=== PATIENT | male | born 1930 | race American Indian/Alaskan Native ===

== ENCOUNTER 2016-06-21 09:05 | Inpatient (IN) | payer MEDICARE, BC ==
[2016-06-21] MEDS ORDERED: Piperacill/Tazo 4.5gm in NS 100 ML IVPB STA (09:49)
[2016-06-21] MEDS ORDERED: Vancomycin 1gm in NS 250ml 250 ML IVPB STA (09:49)
[2016-06-21 09:58] LABS: ADD MANUAL DIFF? NO
[2016-06-21 10:03] LABS: VENOUS BLOOD GAS BASE EXCESS -4.7 mmol/L (0.0-2.0); VENOUS BLOOD PH 7.35 (7.32-7.43)
[2016-06-21 10:05] LABS: BASO # 0.04 K/mm3 (0.0-2.0); BASO % 0.3 % (0.0-3.0); EOS % 0.3 % (1.5-5.0); GRAN # 11.24 (1.4-6.5); HEMATOCRIT 37.4 % (42.0-52.0); LYMPH # 1.4 (1.2-3.4); MEAN CELL VOLUME 92.8 fL (80.0-105.0); MEAN CORPUSCULAR HEMOGLOBIN 30.5 pg (25.0-35.0); MEAN CORPUSCULAR HGB CONC 32.9 g/dl (31.0-37.0); MONO # 0.9 (0.1-0.6); MONO % 6.4 % (1.0-6.0); PLATELET COUNT 182 10^3/uL (120.0-450.0); RED CELL DISTRIBUTION WIDTH 17.8 % (11.5-14.5); WHITE BLOOD COUNT 13.5 10^3/ul (4.5-11.0)
[2016-06-21] MEDS ORDERED: Sodium Chloride 0.9% 500 ML IV STA (10:07)
[2016-06-21] MEDS ORDERED: Sodium Chloride 0.9% 1,000 ML IV SCH (10:15)
[2016-06-21 10:30] LABS: ALB/GLOB RATIO 0.9 (1.1-1.8); ALKALINE PHOSPHATASE 78 U/L (38-133); ALT/SGPT < 6 U/L (7-56); AST/SGOT 27 U/L (15-59); BILIRUBIN,TOTAL 0.8 mg/dL (0.2-1.3); BLOOD UREA NITROGEN 56 mg/dL (7-21); CALCIUM 9.2 mg/dL (8.4-10.5); CARBON DIOXIDE 22 mmol/L (21-33); CHLORIDE 98 mmol/L (95-110); GFR AFRICAN-AMERICAN 7; GLUCOSE,RANDOM 138 mg/dL (70-110); MAGNESIUM 2.2 mg/dL (1.7-2.2); PHOSPHOROUS 5.2 mg/dL (2.5-4.5); POTASSIUM 5.2 mmol/L (3.6-5.0); SODIUM 138 mmol/L (132-148); TOTAL PROTEIN 8.8 g/dL (5.8-8.3)
[2016-06-21 10:42] LABS: URINE BILIRUBIN NEGATIVE (NEGATIVE); URINE BLOOD TRACE-INTACT (NEGATIVE); URINE GLUCOSE (UA) 100 mg/dL (NEGATIVE); URINE KETONE TRACE mg/dL (NEGATIVE); URINE LEUKOCYTE ESTERASE NEGATIVE Leu/uL (NEGATIVE); URINE PROTEIN 100 mg/dL (<30 mg/dL); URINE UROBILINOGEN 0.2 E.U./dL (<1 E.U./dL)
[2016-06-21 10:42] LABS: TROPONIN I 0.12 ng/mL
--- NOTE | 2016-06-21 10:42 | ED PDOC ---
Arrival/HPI - General Historian: Patient, Spouse, EMS EM Caveat: Altered Mental Status - History of Present Illness Time/Duration: Prior to Arrival <Ricky Owen - Last Filed: 06/21/16 13:21> <Ashvin Oneal - Last Filed: 06/21/16 15:07> - General Chief Complaint: Altered Mental Status Time Seen by Provider: 06/21/16 09:08 - History of Present Illness Narrative History of Present Illness (Text): 06/21/16 10:39 This is an 85 year old male with a PMH notable for HTN, CAD s/p stent placement , NSTEMI, gastric cancer, ESRD on HD (M,W,F), DM and dementia presenting to the ED for evaluation of AMS. The patient was noted to be vomiting bile-like liquid per the patient's 's recount. The noted that the patient felt clammy at home as well. The patient is mildly demented at baseline. The patient is able to produce urine. The patient is due for dialysis today at 2pm. The patient is unable to participate in ROS on examination. (Ricky Owen) Past Medical History - Provider Review Nursing Documentation Reviewed: Yes - Travel History Have you recently traveled outside [place] w/in the past 3 mons?: No - Infectious Disease Hx of Infectious Diseases: None - Tetanus Immunization Tetanus Immunization: Unknown - Cardiac Hx Pacemaker: No - Pulmonary Hx Respiratory Disorders: Yes Hx Pneumonia: Yes - Neurological Hx Paralysis: No - HEENT Hx HEENT Disorder: Yes (WEARS RX GLASSES) Hx Epistaxis: Yes - Renal Hx Dialysis: Yes (-- Schedule) Type of Dialysis Access: Left AV Shunt Date of Last Dialysis Treatment: 06/18/16 Hx Renal Failure: Yes (ESRD) - Endocrine/Metabolic Hx Diabetes Mellitus Type 2: Yes - Hematological/Oncological Hx Blood Transfusions: Yes Hx Blood Transfusion Reaction: No Hx Cancer: Yes (Gastric) - Integumentary Hx Dermatological Disorder: No - Musculoskeletal/Rheumatological Hx Musculoskeletal Disorders: No - Gastrointestinal Hx Gastrointestinal Disorders: Yes Hx Constipation: Yes Hx Gastroesophageal Reflux: Yes Other/Comment: COLON POLYPS - Genitourinary/Gynecological Hx Genitourinary Disorders: Yes (ESRD ON HEMODIALYSIS PT STATES STILL URINATES) - Psychiatric Hx Emotional Abuse: No Hx Physical Abuse: No Hx Substance Use: No - Surgical History Other/Comment: AV shunt placement. - Anesthesia Hx Anesthesia Reactions: No Hx Malignant Hyperthermia: No - Suicidal Assessment Feels Threatened In Home Enviroment: No <Ricky Owen - Last Filed: 06/21/16 13:21> <Ashvin Oneal - Last Filed: 06/21/16 15:07> - Patient History Narrative Patient History: This is an 85 year old male with a PMH notable for HTN, CAD s/p stent placement , NSTEMI, gastric cancer, ESRD on HD (M,W,F), DM and dementia (Ricky Owen) Family/Social History - Physician Review Nursing Documentation Reviewed: Yes Family/Social History: No Known Family HX Smoking Status: Former Smoker Hx Alcohol Use: No Hx Substance Use: No Hx Substance Use Treatment: No <Ricky Owen - Last Filed: 06/21/16 13:21> Allergies/Home Meds <Ricky Owen - Last Filed: 06/21/16 13:21> <Ashvin Oneal - Last Filed: 06/21/16 15:07> Allergies/Adverse Reactions: Allergies No Known Allergies Allergy (Verified 06/21/16 09:08) Home Medications: Home Meds Medication Instructions Recorded Confirmed Insulin Detemir [Levemir Flextouch] 5 units SQ BID 06/28/15 06/21/16 Losartan Potassium [Cozaar] 100 mg PO DAILY 06/28/15 06/21/16 Linaclotide [Linzess] 145 mcg PO DAILY PRN 09/22/15 06/21/16 Travoprost [Travatan Z] 1 drop BOTHEYES HS 11/23/15 06/21/16 Cholecalciferol [Vitamin D 1000 IU] 50,000 unit PO SAT 01/30/16 06/21/16 Metoclopramide [Reglan] 5 mg PO QID 01/30/16 06/21/16 Nebivolol [Bystolic] 5 mg PO QPM 01/30/16 06/21/16 Folic Acid 1 mg PO DAILY 04/22/16 06/21/16 Isosorbide Mononitrate [Imdur] 60 mg PO QAM 04/22/16 06/21/16 Omeprazole 40 mg PO QAM 04/22/16 06/21/16 Polyethylene Glycol 3350 [Miralax] 17 gm PO PRN PRN 04/22/16 06/21/16 Sevelamer [Renagel] 800 mg PO TID 04/22/16 06/21/16 Vit B Cmplx 3/FA/Vit C/Biotin 1 tab PO DAILY 04/22/16 06/21/16 [[facility]] Aspirin [Lo-Dose Aspirin EC] 81 mg PO DAILY 04/28/16 06/21/16 Review of Systems - Review of Systems Systems not reviewed;Unavailable: Altered Mental Status <Ricky Owen - Last Filed: 06/21/16 13:21> Physical Exam - Physical Exam Physical Exam Limitations: Altered Mental Status Temperature: Afebrile Blood Pressure: Hypertensive Pulse: Tachycardic Respiratory Rate: Tachypneic Appearance: Positive for: Non-Toxic, Ill-Appearing Pain Distress: None Mental Status: No: Alert and Oriented X 3 (A&O x 2) - Systems Exam Head: Present: Atraumatic, Normocephalic Pupils: Present: PERRL Extroacular Muscles: Present: EOMI. No: Entrapment Conjunctiva: Present: Normal. No: Injected Mouth: Present: Dry. No: Moist Mucous Membranes, Drooling Neck: Present: Normal Range of Motion, Lymphadenopathy (anterior cervial LAD) Respiratory/Chest: Present: Clear to Auscultation, Good Air Exchange. No: Respiratory Distress, Accessory Muscle Use Cardiovascular: Present: Normal S1, S2, Tachycardic. No: Regular Rate and Rhythm, Murmurs Abdomen: Present: Normal Bowel Sounds. No: Tenderness, Distention, Peritoneal Signs Back: Present: Normal Inspection Upper Extremity: Present: Normal Inspection, Other (AV Fistula L wrist- patent with ausculatory bruit and palpable thrill ). No: Cyanosis, Edema Lower Extremity: Present: Normal Inspection. No: Edema Neurological: Present: CN II-XII Intact Skin: Present: Warm, Dry, Normal Color. No: Rashes Psychiatric: Present: Alert. No: Oriented x 3 <Ricky Owen - Last Filed: 06/21/16 13:21> Vital Signs Temp Pulse Resp BP Pulse Ox 06/21/16 12:36 119 H 130/80 06/21/16 10:49 98 H 20 177/62 H 98 06/21/16 09:49 97.9 F 133 H 22 183/98 H 93 L Medical Decision Making - Lab Interpretations I have reviewed the lab results: Yes Interpretation: Abnormal lab values - RAD Interpretation Marketing Manager: Radiologist - EKG Interpretation Interpreted by ED Physician: Yes Type: 12 lead EKG <Ricky Owen - Last Filed: 06/21/16 13:21> - Critical Care Critical Care Minutes: 30 minutes <Ashvin Oneal Godfrey - Last Filed: 06/21/16 15:07> ED Course and Treatment: 06/21/16 10:45 Impression: This is an 85 year old male with a PMH notable for HTN, CAD s/p stent placement , NSTEMI, gastric cancer, ESRD on HD (M,W,F), DM and dementia presenting to the ED for evaluation of AMS. The patient is altered. [place] negative. No obvious sign of stroke. Differential: Sepsis (uro vs resp source) Stroke CA Metabolic Encephalopathy Plan: Code Sepsis protocol Vanco/Zosyn empiric Abx 500mL Bolus Blood cx Urine Cx, UA CBC, CMP, mag, phos, cardiac iso, bnp, pt, ptt, procalcitonin VBG tele monitor EKG CXR Prior Visits: Progress Note: Patient seen and examined at the bedside. The patient appears clinically, hemodynamically stable. The patient is unable to provide further history to the condition. Patient had elevated lactate, tachypnea, tachycardia, and elevated WBC. Code sepsis was called at 10:16. The patient is pending CXR. The patient has empiric ABX started. 06/21/16 11:14 Patient re-examined at the bedside. The patient is resting comfortably. CXR returns evidence of pulmonary edema vs pneumonia. Patient receiving empiric antibiotics for code sepsis. 06/21/16 12:16 Patient re-examined mentation same. Patient drinking contrast for CT C/A/P with PO/IV contrast as ordered by Aravind Nathan. Patient UA negative for signs of infection. The patient will have HD following CT scan. Dr. Nazario's service called and notified of the patient and the situation. Dr. Nazario accepted the admission. The patient was admitted to the telemetry floor. (Ricky Owen) A 85 year old male brought in for altered mental status. In agreement with resident note, which includes further HPI details. Patient was seen and evaluated with resident, came up with plan and treatment together. Will order labs, EKG. CXR: Lungs clear; no w/r/r 06/21/16 11:27 - Patient HR improved to 90's. Patients CXR concerning for infiltrates. Code sepsis was called on this patient due to WBC, tachy and LA elevated. Treated with antibiotics. Discussed case with Dr. Nazario who agrees we can send her to dialysis today. He will admit her under his service. (Ashvin Oneal) - Lab Interpretations Narrative Lab Interpretation (Text): 06/21/16 11:17 06/21/16 06/21/16 06/21/16 10:28 09:58 09:50 WBC 13.5 H D RBC 4.03 Hgb 12.3 L Hct 37.4 L MCV 92.8 MCH 30.5 MCHC 32.9 RDW 17.8 H Plt Count 182 MPV 12.0 H Gran % 83.0 H Lymph % (Auto) 10.0 L Boundary % (Auto) 6.4 H Eos % (Auto) 0.3 L Baso % (Auto) 0.3 Gran # 11.24 H Lymph # 1.4 Boundary # 0.9 H Eos # 0.0 Baso # 0.04 PT 11.4 INR 1.06 APTT 28.6 pO2 77 H VBG pH 7.35 VBG pCO2 37.0 L VBG HCO3 20.4 L VBG Total CO2 21.5 L VBG O2 Sat (Calc) 96.7 H VBG Base Excess -4.7 L VBG Potassium 6.4 H* Glucose 130 H Lactate 2.6 H FiO2 21.0 Sodium 138 137.0 Potassium 5.2 H Chloride 98 102.0 Carbon Dioxide 22 Anion Gap 23 H BUN 56 H Creatinine 8.9 H* Est GFR ( Amer) 7 Est GFR (Non-Af Amer) 6 Random Glucose 138 H Calcium 9.2 Phosphorus 5.2 H Magnesium 2.2 Total Bilirubin 0.8 AST 27 ALT < 6 L Alkaline Phosphatase 78 Troponin I 0.12 D NT-Pro-B Natriuret Pep 00498 H Total Protein 8.8 H Albumin 4.3 Globulin 4.6 Albumin/Globulin Ratio 0.9 L Venous Blood Potassium 6.4 H* Urine Color Yellow Urine Appearance Clear Urine pH 8.0 Ur Specific [place] 1.020 Urine Protein 100 H Urine Glucose (UA) 100 H Urine Ketones Trace H Urine Blood Trace-intact H Urine Nitrate Negative Urine Bilirubin Negative Urine Urobilinogen 0.2 Ur Leukocyte Esterase Negative Urine RBC 0 - 2 Urine WBC 0 - 2 (Ricky Owen) Lab Results: 06/21/16 09:50 06/21/16 09:58 Lab Results 06/21/16 10:28: PT 11.4, INR 1.06, APTT 28.6, Urine Color Yellow, Urine Appearance Clear, Urine pH 8.0, Ur Specific [place] 1.020, Urine Protein 100 H, Urine Glucose (UA) 100 H, Urine Ketones Trace H, Urine Blood Trace-intact H, Urine Nitrate Negative, Urine Bilirubin Negative, Urine Urobilinogen 0.2, Ur Leukocyte Esterase Negative, Urine RBC 0 - 2, Urine WBC 0 - 2 06/21/16 09:58: Sodium 138, Potassium 5.2 H, Chloride 98, Carbon Dioxide 22, Anion Gap 23 H, BUN 56 H, Creatinine 8.9 H*, Est GFR ( Amer) 7, Est GFR ( Non-Af Amer) 6, Random Glucose 138 H, Calcium 9.2, Phosphorus 5.2 H, Magnesium 2.2, Total Bilirubin 0.8, AST 27, ALT < 6 L, Alkaline Phosphatase 78, Troponin I 0.12 D, NT-Pro-B Natriuret Pep 97170 H, Total Protein 8.8 H, Albumin 4.3, Globulin 4.6, Albumin/Globulin Ratio 0.9 L 06/21/16 09:50: WBC 13.5 H D, RBC 4.03, Hgb 12.3 L, Hct 37.4 L, MCV 92.8, MCH 30.5, MCHC 32.9, RDW 17.8 H, Plt Count 182, MPV 12.0 H, Gran % 83.0 H, Lymph % ( Auto) 10.0 L, Bound[place] % (Auto) 6.4 H, Eos % (Auto) 0.3 L, Baso % (Auto) 0.3, Gran # 11.24 H, Lymph # 1.4, Boundary # 0.9 H, Eos # 0.0, Baso # 0.04, pO2 77 H, VBG pH 7.35, VBG pCO2 37.0 L, VBG HCO3 20.4 L, VBG Total CO2 21.5 L, VBG O2 Sat (Calc) 96.7 H, VBG Base Excess -4.7 L, VBG Potassium 6.4 H*, Glucose 130 H, Lactate 2.6 H, FiO2 21.0, Sodium 137.0, Chloride 102.0, Venous Blood Potassium 6.4 H* - RAD Interpretation Narrative RAD Interpretations (Text): 06/21/16 11:14 HISTORY: Sepsis Patient COMPARISON: 01/20/2016 FINDINGS: LUNGS: There is a diffuse bilateral infiltrate. Findings could represent pulmonary edema or pneumonia. PLEURA: No significant pleural effusion identified, no pneumothorax apparent. CARDIOVASCULAR: Normal. OSSEOUS STRUCTURES: No significant abnormalities. VISUALIZED UPPER ABDOMEN: Normal. OTHER FINDINGS: None. IMPRESSION: Diffuse bilateral infiltrates. Findings could represent pulmonary edema or pneumonia. (Ricky Owen) Radiology Orders: 06/21/16 09:49 CHEST PORTABLE [RAD] Stat - EKG Interpretation EKG Interpretation (Text): 06/21/16 11:18 sinus tachycardia, right bundle branch block, left axis deviation (Ricky Owen) - Medication Orders Current Medication Orders: Aspirin (Ecotrin) 81 mg PO DAILY [facility] Last Admin: 06/21/16 12:36 Dose: 81 MG Atorvastatin Calcium (Lipitor) 40 mg PO DIN [facility] Cholecalciferol (Vitamin D) 1,000 iu PO SAT [facility] Donepezil HCl (Aricept) 10 mg PO HS [facility] Folic Acid (Folic Acid) 1 mg PO DAILY [facility] Last Admin: 06/21/16 12:36 Dose: 1 MG Sodium Chloride (Sodium Chloride 0.9%) 1,000 mls @ 100 mls/hr IV .Q10H [facility] Last Admin: 06/21/16 11:30 Dose: 100 MLS/HR eMAR Start Stop Document 06/21/16 11:30 JOL (Rec: 06/21/16 11:30 [id number] [id number]) Intravenous Solution Start Date 06/21/16 Start Time 11:30 End Date 06/21/16 End time 15:30 Total Infusion Time 240 Insulin Human Lispro (Humalog Low) 0 units SC ACHS [facility] Isosorbide Mononitrate (Imdur) 60 mg PO QAM [facility] Latanoprost (Xalatan Opht) 0 ml OU HS [facility] Losartan Potassium (Cozaar) 100 mg PO DAILY [facility] Last Admin: 06/21/16 12:36 Dose: 100 MG Metoclopramide HCl (Reglan) 5 mg IVP Q6H [facility] Last Admin: 06/21/16 12:37 Dose: 5 MG IVP Administration Document 06/21/16 12:37 JOL (Rec: 06/21/16 12:37 JOL [id number]) Charges for Administration # of IVP Administrations 1 Metoprolol Tartrate (Lopressor) 25 mg PO BID [facility] Last Admin: 06/21/16 12:36 Dose: 25 MG MAR Pulse and Blood Pressure Document 06/21/16 12:36 JOL (Rec: 06/21/16 12:37 [id number] [id number]) Pulse Pulse Rate (60-90) 119 Blood Pressure Blood Pressure (100/60-150/90) 130/80 Non-Formulary Medication (Insulin Detemir [Levemir Flextouch]) 5 units SQ BID [facility] Pantoprazole Sodium (Protonix Inj) 40 mg IVP Q12H [facility] Last Admin: 06/21/16 12:37 Dose: 40 MG IVP Administration Document 06/21/16 12:37 JOL (Rec: 06/21/16 12:37 JOL [id number]) Charges for Administration # of IVP Administrations 1 Polyethylene Glycol (Miralax) 17 gm PO TID [facility] Polyethylene Glycol (Miralax) 17 gm PO TID [facility] Sevelamer HCl (Renagel) 800 mg PO TID [facility] Tamsulosin HCl (Flomax) 0.4 mg PO DAILY [facility] Last Admin: 06/21/16 12:36 Dose: 0.4 MG Vitamin B Complex/Vit C/Folic Acid (Nephro-Jaylin) 1 tab PO DAILY [facility] Discontinued Medications Piperacillin Sod/Tazobactam Sod (Zosyn 4.5 Gm In Ns 100ml) 100 mls @ 200 mls/ hr IVPB STAT STA PRN Reason: Protocol Stop: 06/21/16 10:18 Last Admin: 06/21/16 10:32 Dose: 200 MLS/HR eMAR Start Stop Document 06/21/16 10:32 JOL (Rec: 06/21/16 10:32 JOL [id number]) Intravenous Solution Start Date 06/21/16 Start Time 10:32 End Date 06/21/16 End time 11:02 Total Infusion Time 30 Vancomycin HCl (Vancomycin 1gm) 250 mls @ 167 mls/hr IVPB STAT STA PRN Reason: Protocol Stop: 06/21/16 11:18 Last Admin: 06/21/16 11:02 Dose: 167 MLS/HR eMAR Start Stop Document 06/21/16 11:02 JOL (Rec: 06/21/16 11:03 JOL [id number]) Intravenous Solution Start Date 06/21/16 Start Time 11:02 End Date 06/21/16 End time 12:32 Total Infusion Time 90 Sodium Chloride (Sodium Chloride 0.9%) 500 mls @ 999 mls/hr IV .Q31M STA Stop: 06/21/16 10:37 Last Admin: 06/21/16 10:42 Dose: 999 MLS/HR eMAR Start Stop Document 06/21/16 10:42 JOL (Rec: 06/21/16 10:42 JOL [id number]) Intravenous Solution Start Date 06/21/16 Start Time 10:42 End Date 06/21/16 End time 11:12 Total Infusion Time 30 Iohexol (Omnipaque 240 (50 Ml)) Confirm Administered Dose 50 ml .ROUTE .STK-MED ONE Stop: 06/21/16 11:44 Iohexol (Omnipaque 350 100 Ml) Confirm Administered Dose 350 mg .ROUTE .STK-MED ONE Stop: 06/21/16 13:23 Metoclopramide HCl (Reglan) 5 mg PO QID [facility] Non-Formulary Medication (Linaclotide [Linzess]) 145 mcg PO DAILY PRN PRN Reason: Constipation Non-Formulary Medication (Nebivolol [Bystolic]) 5 mg PO QPM [facility] Non-Formulary Medication (Travoprost [Travatan Z]) 1 drop BOTHEYES HS [facility] Polyethylene Glycol (Miralax) 17 gm PO PRN PRN PRN Reason: 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 /DO has examined the patient and agrees with the treatment plan. <Ashvin Oneal - Last Filed: 06/21/16 15:07> Disposition/Present on Arrival - Present on Arrival Any Indicators Present on Arrival: No History of DVT/PE: No History of Uncontrolled Diabetes: No Urinary Catheter: No History of Decub. Ulcer: No History Surgical Site Infection Following: None - Disposition Have Diagnosis and Disposition been Completed?: Yes Disposition Time: 10:30 Patient Plan: Admission, Telemetry <Ricky Owen - Last Filed: 06/21/16 13:21> - Present on Arrival Any Indicators Present on Arrival: No - Disposition Have Diagnosis and Disposition been Completed?: Yes Disposition Time: 11:27 Patient Plan: Admission <Ashvin Oneal - Last Filed: 06/21/16 15:07> - Disposition Diagnosis: Sepsis, Altered mental status Disposition: HOSPITALIZED Patient Problems: Current Active Problems Problem Status Diagnosed Altered mental status Acute Elevated troponin Acute Renal failure Acute Sepsis Acute Condition: GUARDED
[2016-06-21 10:48] LABS: URINE APPEARANCE CLEAR (CLEAR); URINE COLOR YELLOW (YELLOW)
[2016-06-21 10:49] LABS: INR 1.06 (0.93-1.08); PARTIAL THROMBOPLASTIN TIME 28.6 Seconds (23.7-30.8); URINE RBC 0 - 2 /hpf (0-2); URINE WBC 0 - 2 /hpf (0-6)
--- NOTE | 2016-06-21 11:07 | RAD ---
HISTORY: Sepsis Patient COMPARISON: 01/20/2016 FINDINGS: LUNGS: There is a diffuse bilateral infiltrate. Findings could represent pulmonary edema or pneumonia. PLEURA: No significant pleural effusion identified, no pneumothorax apparent. CARDIOVASCULAR: Normal. OSSEOUS STRUCTURES: No significant abnormalities. VISUALIZED UPPER ABDOMEN: Normal. OTHER FINDINGS: None. IMPRESSION: Diffuse bilateral infiltrates. Findings could represent pulmonary edema or pneumonia.
[2016-06-21] MEDS ORDERED: POLYETHYLENE GLYCOL 3350 17 GM/Dose PACKET PO PRN (11:37)
[2016-06-21] MEDS ORDERED: Iohexol 240 (50 ml) ONE (11:43)
[2016-06-21] MEDS ORDERED: INSULIN DETEMIR 5 UNIT SQ SCH ×2 (11:45→18:00)
[2016-06-21] MEDS: Multivitamin Vitamin B Complex (Nephro-Vite) Tab PO SCH (11:49)
[2016-06-21] MEDS ORDERED: Iohexol 350 MG/100 ML VIAL ONE (13:22)
[2016-06-21 14:27] LABS: VENOUS BLOOD GAS BASE EXCESS -3.6 mmol/L (0.0-2.0)
--- NOTE | 2016-06-21 14:49 | CT ---
PROCEDURE: CT Chest, Abdomen and Pelvis with intravenous contrast HISTORY: SEPSIS/PNEUMONIA COMPARISON: 04/17/2015 TECHNIQUE: IV dose administered: 100 cc of Omni 350 Radiation dose: Total exam DLP = 1117 mGy-cm. FINDINGS: CT CHEST WITH CONTRAST: LUNGS: Extensive bilateral infiltrates are seen. The infiltrates appear to be interstitial. MEDIASTINUM: Unremarkable. Normal caliber aorta and pulmonary arterial trunk. No aortic dissection. Normal size heart. LYMPH NODES: Unremarkable. PLEURA: Small bilateral pleural effusions. BONES: Unremarkable. OTHER FINDINGS: Extensive coronary artery calcifications are seen. CT ABDOMEN AND PELVIS: LIVER: Unremarkable. No gross lesion or ductal dilatation. GALLBLADDER AND BILE DUCTS: Unremarkable. PANCREAS: Unremarkable. No gross lesion or ductal dilatation. SPLEEN: Unremarkable. ADRENALS: Unremarkable. No mass. KIDNEYS AND URETERS: Unremarkable. No hydronephrosis. No solid mass. VASCULATURE: Unremarkable. No aortic aneurysm. BOWEL: Unremarkable. No obstruction. No gross mural thickening. There is a right inguinal hernia measuring 4 x 6 cm. This is best seen on image 231 series 2. Multiple small bowel loops are seen within the hernia but there is no evidence of obstruction or inflammation. APPENDIX: Normal appendix. PERITONEUM: Unremarkable. No free fluid. No free air. LYMPH NODES: Unremarkable. No enlarged lymph nodes. BLADDER: Unremarkable. REPRODUCTIVE: Unremarkable. BONES: No acute fracture. OTHER FINDINGS: None. IMPRESSION: Extensive bilateral interstitial infiltrates most consistent with pneumonia. Right inguinal hernia containing small bowel loops without obstruction
--- NOTE | 2016-06-21 15:09 | CARD ---
APPROVED REPORT EKG Measurement Heart [id number] ID [id number] <Conclusion> Sinus tachycardia Left axis deviation Right bundle branch block Abnormal ECG
--- NOTE | 2016-06-21 15:32 | CON ---
DATE: 06/21/2016 REASON FOR CONSULTATION: Altered mental status, elevated WBC count, elevated potassium, ESRD. HISTORY OF PRESENT ILLNESS: This 85-year-old male was brought to the Emergency Room by family member because of altered mental status, vomiting at home. Vomiting reported as bilious. In the Emergency Room, he was found to be confused, afebrile. Initial blood pressure 183/98. Blood work revealed el evated lactate levels, elevated BNP of 44,000 and WBC count of 13,000. The patient is being admitted for sepsis. PAST MEDICAL AND SURGICAL HISTORY: Hypertension, NIDDM, remote history of gastric cancer, GI bleed, ESRD, anemia of chronic kidney disease, secondary hyperparathyroidism, dementia, CAD. FAMILY HISTORY: Noncontributory. SOCIAL HISTORY: Ex-smoker, no alcohol use, no IV drug abuse. ALLERGIES: No known drug allergies. MEDICATIONS AT HOME: Folic acid, vitamin D, sevelamer, Bystolic 5 mg daily, Flomax, Linzess, aspirin , omeprazole, insulin, Lipitor, Reglan, Cozaar, Imdur, Aricept. REVIEW OF SYSTEMS: All systems are reviewed. Pertinent positives as mentioned in the history of pre senting illness, rest unremarkable. PHYSICAL EXAMINATION: GENERAL: Elderly male lying in bed. VITAL SIGNS: Blood pressure 130/80, heart rate 119, respiratory rate 20, temperature 97.9. HEENT: Normocephalic, atraumatic. NECK: Supple, no JVD. LUNGS: Bilateral equal air entry, no rales. CARDIAC: S1, S2, regular rate and rhythm, no murmur, no rub. ABDOMEN: Soft, nondistended, nontender, bowel sounds present. EXTREMITIES: No lower extremity edema. LABORATORY DATA: WBC 13, hemoglobin 12, hematocrit 37, platelets 182, 83% polys. Sodium 138, potass ium 5.2, chloride 98, CO2 of 22, BUN 56, creatinine 8.9, glucose 138, calcium 9.2, phosphorus 5.2, ma gnesium 2.2. Troponin 0.12. BNP 44,300. Albumin 4.3. Urinalysis: Yellow, clear, pH 8.0, specific gravity 1.020, protein 100, glucose 100, ketones trace, blood trace, nitrite negative, leukocyte est erase negative. Chest x-ray reported as diffuse bilateral infiltrates. ASSESSMENT: 1. Altered mental status/leukocytosis/congestive heart failure? versus pneumonia. 2. End-stage renal disease. 3. Hyperkalemia. 4. [id number]-hratwnymo diabetes mellitus. 5. Hypertension. 6. Dementia. PLAN: 1. Followup CT scan of the abdomen and chest. 2. Dialysis today. 3. Ultrafiltration 1.5 to 2 kg. 4. Follow up cultures. 5. Empiric antibiotics. Dose for creatinine clearance less than 10. Brinda Ibarra MD cc: [id number] TT: 06/21/2016 15:31:51 Confirmation # [id number] Dictation # [id number] mn
[2016-06-21] MEDS ORDERED: Non Formulary Medication (Nebivolol [Bystolic] 5 MG) PO SCH (18:00)
[2016-06-21] MEDS: Insulin Lispro (humaLOG) LOW Coverage SC SCH ×2 (18:50→22:02)
[2016-06-21] MEDS: POLYETHYLENE GLYCOL 3350 17 GM/Dose PACKET PO SCH ×2 (18:50)
[2016-06-21] MEDS: Meropenem 500 MG in Sodium Chloride 0.9% 100 ML IVPB SCH ×2 (18:51→22:06)
[2016-06-21] MEDS ORDERED: Non Formulary Medication (Travoprost [Travatan Z] 1 DROP) BOTHEYES SCH (22:00)
[2016-06-21] MEDS ORDERED: Levalbuterol 0.63 MG/3 ML Inhal Soln UD IH SCH (23:00)
--- NOTE | 2016-06-21 23:39 | HP ---
HISTORY OF PRESENT ILLNESS: The patient is an 85-year-old -Australian male who was brought to [facility] Emergency Room accompanied by the patient's . The patient came to the Emergency Room by [facility] B[facility] ambulance. According to the patient's , Mrs . ____, the patient has been found to be confused with altered mental status, dry heaving, nausea, vo miting and felt warm. According to the patient's , the patient has been feeling warm, but withou t any documented temperature by the patient's . The patient was recently seen about a week ago i n the office and the patient was without above symptoms. CODE STATUS: Full code. LIVING WILL AND ADVANCED DIRECTIVE: None. ALLERGIES: None. SOCIAL HISTORY: Positive for former, negative for alcohol, negative substance abuse, negative for co mmunicable transmissible disease. PAST MEDICAL AND SURGICAL HISTORY: History of cerebral infarct, history of severe dietary and medica tion noncompliance, history of end-stage renal disease, hemodialysis dependent 3 times a week via the left upper extremity AV fistula, history of recurrent gastrointestinal bleeding, history of hypovita minosis D, history of glaucoma, history of cataracts, history of constipation, history of prostate hy pertrophy, history of gastroesophageal reflux, history of type 1 insulin-requiring diabetes mellitus, history of diabetic gastroparesis, history of angina, history of dementia, history of poor complianc e, history of former smoker, history of gastric carcinoma, history of multiple packed red blood cell transfusion, history of colonic polyps. The patient was seen and evaluated in the Emergency Room by the ER physician. The patient complained of nausea, vomiting and dry heaving. The patient was felt to be warm and clammy according to the patient's . The patient has missed his dialysis for today . PHYSICAL EXAMINATION: GENERAL: The patient was seen in stretcher #3 in the Emergency Room. The patient is lying in the be d. The patient is arousable. The patient's is at bedside. VITAL SIGNS: T-max 98.6. Telemetry shows sinus tachycardia, heart rate ____, 133, 98, 119. Blood p ressure is 183/98, 177/62, 130/80. Respirations 19-20. O2 sat is 97-98. HEAD: Normocephalic, atraumatic. EENT: Shows pinkish, pale conjunctivae, anicteric sclerae. No oropharyngeal lesion. NECK: Questionable soft carotid bruit. CHEST: Kyphosis. LUNGS: Shows positive rhonchi upper lung chaney, questionable creps to upper lung chaney. CARDIOVASCULAR: Shows S1, S2, regular rhythm. ABDOMEN: Soft, positive bowel sounds. Mild epigastric periumbilical guarding, no rebound tenderness , no costovertebral angle tenderness. GENITALIA: Male. RECTAL: Deferred. EXTREMITIES: Shows positive left upper extremity AV fistula, positive thrill. Lower extremities linda w no pitting edema, no calf tenderness, no Homans' sign. NEUROLOGIC: The patient is alert, awake, responsive, is able to move upper and lower extremity witho ut assistance. Gait examination is not tested. VASCULAR: Palpable pulses of the lower extremity. MUSCULOSKELETAL: Shows a body mass index of 24. Cranial nerves II-XII limited. HOME MEDICATIONS: As per the LxDATA intake, which shows: 1. Aricept 10 mg at bedtime. 2. Bystolic 5 mg daily. 3. Cozaar 100 mg daily. 4. Flomax 0.4 mg daily. 5. Folic acid 1 mg daily. 6. Imdur 60 mg once or twice a day. 7. Levemir flexed at 5 units with breakfast and dinner. 8. Linzess 145 mcg p.o. daily p.r.n. 9. Lipitor 40 mg daily. 10. Aspirin 81 mg daily. 11. MiraLax 17 grams 2-3 times a day ____. 12. Prilosec 40 mg daily. 13. Reglan 5 mg 4 times a day p.r.n. 14. Suzanna-Jaylin 1 tablet daily. 15. Renagel 800 mg 3 times a day. 16. Travatan eye drops both eyes at bedtime. 17. Vitamin D2 at 50,000 units weekly. DIAGNOSTICS: WBC 13.3, hemoglobin and hematocrit 12.3 and 37.4, platelet 182, granulocytes 83%. PT, PTT 11.4 and 28.6. VBG shows a lactate of 2.6, pH of 7.35, pO2 of 77, pCO2 of 37, bicarbonate 21, s aturation of 97%. Sodium 138, potassium 4.2, chloride 98, CO2 of 22, anion gap of 23, BUN 56, creati nine 8.9, glucose 138, lactic acid 1.1, phosphorus 5.2, troponin 0.12. BNP 44,300. Procalcitonin 0. 630. Urine pH 8.0, specific gravity 1.020, 100 protein, 100 glucose, ____ blood. The patient's ches t x-ray was reviewed. The patient had patchy bilateral infiltrates ____ infiltrate noted. The patie nt was sent for a CAT scan of the chest, abdomen and pelvis with contrast. The results were reviewed . It shows extensive bilateral infiltrate interstitial, bilateral pleural effusion, extensive lindsay ry artery calcifications, right inguinal hernia nonobstructing. The patient's EKG was done in the Emergency Room, which shows sinus tachycardia, left anterior hemibl ock and right bundle branch block. The patient was seen by Dr. Oneal with the medical scheduler. IMPRESSION: 1. Possible sepsis with bilateral community-acquired pneumonia and infiltrate. 2. Uncontrolled hypertension with tachycardia. 3. Leukocytosis with granulocytosis. 4. Sepsis with extensive bilateral community-acquired pneumonia and interstitial pneumonia. 5. Small bilateral pleural effusions. 6. Extensive coronary artery calcification. 7. Nonobstructing right inguinal hernia. 8. Dementia. 9. Tachycardia. 10. Leukocytosis with granulocytosis and normocytic anemia. 11. Lactic acidosis. 12. End-stage renal disease, hemodialysis dependent. 13. Increased anion gap metabolic acidosis. 14. Insulin requiring diabetes mellitus. 15. Indeterminate troponin versus questionable non-ST elevation myocardial infarction with elevated troponin of 0.12 in an end-stage renal disease patient. 16. Elevated BNP, probably secondary to volume overload. 17. Proteinuria, glycosuria, microscopic hematuria. 18. Left anterior hemiblock. 19. Right bundle branch block. 20. Bifascicular block. 21. End-stage renal disease, hemodialysis dependent via the left upper extremity arteriovenous fistu la. 22. Possible toxic metabolic encephalopathy secondary to sepsis. 23. Non-hemolyzed mild hyperkalemia. 24. Deconditioning. 25. History of diabetic gastroparesis, history of constipation, history of noncompliance, history of hypovitaminosis D, history of prostate hypertrophy, history of constipation, history of insulin-requ iring diabetes mellitus, history of dyslipidemia, history of angina, history of diabetic gastroparesi s. PLAN: At this time, the patient has been admitted for admission to telemetry. Repeat labs and repea t cardiac enzymes have been ordered. Cardiology consultation, infectious disease consultation, nephr ology consultation ordered. The patient has been started on Levemir flexed patch 5 units a.c. breakf ast and dinner. The patient has been resumed on Aricept 10 mg at bedtime. The patient has been started on Cozaar 100 mg daily. The patient has been ordered vibramycin 100 mg IV q. 12, Ecotrin 81 daily, Flomax 0.4 mg daily, folic acid 1 mg daily, Humalog low dose sliding scale coverage a.c. and at bedtime, Imdur 60 m g daily, Lipitor 40 mg daily. The patient is started on Lopressor 25 mg twice a day. The patient is seen by infectious disease and started on meropenem 500 IV q. 12, MiraLax 17 g 3 times a day, Nephro -Jaylin 1 tablet daily, Protonix 40 IV q. 12, Reglan 5 mg IV q. 6, Renagel 800 mg 3 times a day. The p atient was given IV fluid 0.9 normal saline 1 liter bolus in the Emergency Room by the medical reside nt. The patient was given vancomycin 1 gram IV in the Emergency Room. The patient is on vitamin D 1 000 unit weekly. The patient is on Xalatan eyedrops. The patient also received Zosyn 4.5 grams in [facility] Emergency Room. The patient has been ordered a repeat EKG. The patient will be ordered diabetic diet. At present, the patient's condition, diagnosis, management plan, overall guarded to poor progn osis and critical condition were discussed and explained to the patient and the patient's at [facility] who I met in the Emergency Room. I have explained to the patient and the patient's about ov bandarll patient's decompensated status and worsening of the patient's condition and multiple hospitaliz ations in the last few months was explained to the patient and the patient's at length and all q uestions and concerns answered. In addition, blood and urine cultures are ordered. Repeat labs are ordered. The patient's further management will be dependent on the patient's clinical condition, hem odynamic status, and as per patient response to therapeutic intervention, as per infectious disease, nephrology and cardiology recommendations. Zeyad Nazario MD cc: [id number] TT: 06/21/2016 23:39:09 bn
[2016-06-21] MEDS: Latanoprost 2.5 ml Opht Soln OU SCH (23:48)
[2016-06-21 23:53] VITALS: BMI 23.9
[2016-06-22 06:19] LABS: ADD MANUAL DIFF? NO
[2016-06-22 06:42] LABS: BASO # 0.04 K/mm3 (0.0-2.0); BASO % 0.4 % (0.0-3.0); EOS % 0.4 % (1.5-5.0); GRAN # 8.49 (1.4-6.5); GRAN % 77.3 % (50.0-68.0); HEMATOCRIT 32.2 % (42.0-52.0); LYMPH # 1.1 (1.2-3.4); LYMPH % 9.9 % (22.0-35.0); MEAN CELL VOLUME 91.5 fL (80.0-105.0); MEAN CORPUSCULAR HEMOGLOBIN 29.8 pg (25.0-35.0); MEAN CORPUSCULAR HGB CONC 32.6 g/dl (31.0-37.0); MEAN PLATELET VOLUME 11.1 fl (7.0-11.0); MONO # 1.3 (0.1-0.6); PLATELET COUNT 279 10^3/uL (120.0-450.0); RED CELL DISTRIBUTION WIDTH 17.9 % (11.5-14.5)
[2016-06-22 06:51] LABS: ALB/GLOB RATIO 0.9 (1.1-1.8); ALKALINE PHOSPHATASE 64 U/L (38-133); AST/SGOT 24 U/L (15-59); BILIRUBIN,DIRECT 0.6 mg/dL (0.0-0.4); BILIRUBIN,TOTAL 0.9 mg/dL (0.2-1.3); BLOOD UREA NITROGEN 31 mg/dL (7-21); CALCIUM 8.8 mg/dL (8.4-10.5); CARBON DIOXIDE 29 mmol/L (21-33); CHLORIDE 97 mmol/L (98-107); GFR AFRICAN-AMERICAN 11; GLUCOSE,RANDOM 144 mg/dL (70-110); PHOSPHOROUS 5.6 mg/dL (2.5-4.5); POTASSIUM 4.4 mmol/L (3.6-5.0); SODIUM 139 mmol/L (132-148); TOTAL PROTEIN 8.2 g/dL (5.8-8.3)
[2016-06-22 07:07] LABS: ALT/SGPT < 6 U/L (7-56)
[2016-06-22 07:09] LABS: TROPONIN I 0.24 ng/mL
[2016-06-22] MEDS: Insulin Lispro (humaLOG) LOW Coverage SC SCH ×4 (08:14→22:38)
[2016-06-22] MEDS: Insulin Detemir 100 units/ml Vial (Levemir) SC SCH ×2 (08:46→17:42)
[2016-06-22] MEDS: Multivitamin Vitamin B Complex (Nephro-Vite) Tab PO SCH (09:53)
[2016-06-22] MEDS: POLYETHYLENE GLYCOL 3350 17 GM/Dose PACKET PO SCH ×5 (09:54→17:44)
[2016-06-22] MEDS: Meropenem 500 MG in Sodium Chloride 0.9% 100 ML IVPB SCH ×2 (09:54→22:37)
--- NOTE | 2016-06-22 11:29 | PN ---
DATE: 06/22/2016 The patient is seen in room 265, bed 1. The patient is seen lying in the bed. The patient is not re ceiving the nebulizer medication which I have ordered since last night. There is no nebulizer setup noted. The patient's overnight nurse's notes were reviewed. The patient had 1 episode of elevated b lood pressure of 185/102. The patient was given clonidine 0.1. Overnight nurse's notes were reviewed . PHYSICAL EXAMINATION: VITAL SIGNS: T-max 98.8 to 99.1. Telemetry shows sinus rhythm, heart rate ranging from high 90s to low 100 to 83. Blood pressure 143/78, 168/95, 184/103, 185/102, 130/80, 177/82, 183/98. Respiration s 20, O2 sat 98%. Intake output not documented as patient is end-stage renal. HEAD: Normocephalic, atraumatic. EENT: Shows pinkish, pale conjunctivae, anicteric sclerae. No oropharyngeal lesion. NECK: Soft carotid bruit. CHEST: Kyphosis. LUNGS: Shows positive rhonchi bilaterally upper lung chaney anteriorly predominantly. CARDIOVASCULAR: Shows S1, S2, regular rhythm. Questionable soft systolic murmur right second interc ostal space, left sternal border. ABDOMEN: Soft, positive bowel sounds. GENITALIA: Male. RECTAL: Deferred. EXTREMITIES: Lower extremities show no pitting edema, no calf tenderness, no Homans sign. Left uppe r extremity: Positive AV fistula, positive thrill. MUSCULOSKELETAL: Shows a body mass index of 22.5. Cranial nerves II-XII limited. Gait examination not tested. VASCULAR: Palpable pulses of the lower extremity. PSYCHIATRIC: Not applicable. NEUROLOGIC: The patient is alert, awake, responsive with history of dementia. DIAGNOSTICS: 06/22/2016: WBC count is down to 11 from 13.5, hemoglobin/hematocrit 10.5 and 32.2, pl atelet 279, granulocytes 77. Sodium 139, potassium 4.4, chloride 97, CO2 29, anion gap 17, BUN 31, c reatinine 6.0, GFR 11. Point of contact glucose 139, 175. Lactic acid 1.1, phosphorus 5.6. Troponin has bumped up to 0.24 from 0.12. CPK is negative. Procalcitonin level is 0.30. Blood cultures: No growth at 24 elizabeth rs. Repeat EKG is noted which shows sinus rhythm, left anterior hemiblock, right bundle branch block and T-wave inversion in I, aVL, and V3-V6 with lateral ischemic changes. IMPRESSION AND PLAN: 1. Questionable and possible sepsis with bilateral community-acquired extensive pneumonia and inters titial pneumonia. 2. Uncontrolled hypertension. 3. Tachycardia. 4. Dementia. 5. Poor compliance with diet and medication. 6. Leukocytosis with granulocytosis. 7. Normocytic anemia. 8. Lactic acidosis. 9. Nonhemolyzed hyperkalemia. 10. End-stage renal disease, hemodialysis dependent. 11. Increased anion gap metabolic acidosis. 12. Hyperphosphatemia. 13. Questionable acute [id number] myocardial infarction with elevated troponin and lateral cor onary ischemic changes on the EKG in lead I, aVL, and V3-V6. 14. Bifascicular block with left anterior hemiblock and right bundle branch block. 15. Elevated BNP, probably secondary to volume overload. 16. Possible acute [id number]-QZ-fjfuoutem myocardial infarction with elevated troponin and lateral ischemi c changes on the EKG. 17. Proteinuria, glycosuria, microscopic hematuria. 18. Insulin-requiring diabetes mellitus. 19. Hyperphosphatemia. 20. Granulocytosis. 21. Extensive bilateral interstitial pneumonia and infiltrate with small bilateral pleural effusion. 22. Extensive coronary artery calcification. 23. Right inguinal hernia, nonobstructed 24. End-stage renal disease, hemodialysis dependent 3 times a week via left upper extremity arteriov enous fistula. 25. History of dementia. 26. Leukocytosis with granulocytosis and normocytic anemia. 27. Lactic acidosis, increased anion gap metabolic acidosis and lactic acidosis. 28. Proteinuria, glycosuria, microscopic hematuria. 29. Possible toxic metabolic encephalopathy secondary to sepsis. 30. Deconditioning. 31. History of diabetic gastroparesis, history of constipation, history of poor compliance, history of hypovitaminosis D, history of prostate hypertrophy, history of constipation, history of insulin-re quiring diabetes mellitus, history of dyslipidemia, history of angina, history of diabetic gastropare sis. PLAN: At this time, patient has been ordered serial labs. Blood and urine cultures ordered. Cardio logy consultation ordered for abnormal EKG and elevated troponin. Infectious disease consultation or dered. Nephrology consultation ordered. Referral to TCU ordered. CURRENT MEDICATIONS: 1. Mucomyst nebulizer treatment every 6 hours with Xopenex nebulizer. treatment every 6 hours. 2. Chest PT every 6 hours. 3. Aricept 10 mg at bedtime. 4. Cozaar 100 mg daily. 5. Vibramycin 100 mg IV q. 12. 6. Ecotrin 81 mg daily 7. Flomax 0.4 mg daily. 8. Folic acid 1 mg daily. 9. Humalog low dose sliding scale coverage a.c. and at bedtime. 10. Imdur 60 mg daily. 11. Levemir 5 units with breakfast and dinner. 12. Lipitor 40 mg daily. 13. Lopressor 25 mg twice a day. 14. Meropenem 500 mg IV q. 12. 15. MiraLax 17 g 3 times a day. 16. Nephro-Jaylin 1 tablet daily. 17. Protonix 40 mg IV q. 12. 18. Reglan 5 mg IV q. 6. 19. Renagel 800 mg 3 times a day. 20. The patient received vancomycin 1 gram dose yesterday. 21. Vitamin D3 2000 units daily. 22. Xalatan eyedrops at bedtime. The patient is on chest PT. Repeat EKG, consistent carbohydrate renal diet, out of bed to chair, SAMAN stockings, occupational therapy, physical therapy ordered. The patient at present will be continued on telemetry with serial labs, serial EKGs, serial cardiac enzymes. We are awaiting recommendations by infectious disease, nephrology and cardiology. Yesterday I discussed with the patient's regarding the patient's noncompliance and poor complian ce with medications and diet. I have advised and recommended to the patient's about possible co nsideration for gastrostomy and PEG tube of which patient's is unable to decide at present. Dictated and electronically signed; not read. Zeyad Nazario MD cc: [id number] TT: 06/22/2016 11:28:47 Confirmation # [id number] Dictation # [id number] victor manuel
--- NOTE | 2016-06-22 12:03 | CARD ---
APPROVED REPORT EKG Measurement Heart [id number] <Conclusion> Sinus rhythm with 1st degree AV block Right bundle branch block Left anterior fascicular block Bifascicular block T wave abnormality, consider lateral ischemia Abnormal ECG
[2016-06-22] MEDS: Levalbuterol 0.63 MG/3 ML Inhal Soln UD IH SCH ×2 (13:49→19:43)
[2016-06-22] MEDS: Acetylcysteine 20% Inhal Soln (4ml) IH SCH ×2 (13:49→19:43)
--- NOTE | 2016-06-22 13:58 | PN ---
DATE: 06/22/2016 SUBJECTIVE: The patient is currently seen on telemetry. He appears to be comfortable. He is sittin g in the chair with no acute distress. He remains on antibiotic therapy for his bilateral pneumonia. His mental status has cleared and he is back to baseline. MEDICATIONS: Medication list reviewed. The patient is currently on acetylcysteine inhalation therap y, Aricept, Cozaar, doxycycline, Ecotrin, Flomax, folic acid, insulin, Imdur, Lipitor, Lopressor, dick openem, MiraLax, Nephro-Jaylin, Protonix, Reglan, Renagel, vitamin D, eyedrops, and Xopenex. OBJECTIVE: INTAKE AND OUTPUT: Not charted. Output yesterday with dialysis was 2000 mL. VITAL SIGNS: Temperature 99.3, blood pressure 158/97, pulse 87, respiratory rate 18. HEENT: Normocephalic, atraumatic. Conjunctivae are pink. Sclerae nonicteric. NECK: Supple, no neck vein distention. CHEST: Clear to auscultation and percussion with no rales, no rhonchi or wheezing. CARDIOVASCULAR: Shows a regular rate and rhythm with aortic stenosis, mitral regurgitation, tricuspi d regurgitation. No S3, no S4, no rub. ABDOMEN: Soft. Bowel sounds are normal. No rebound, no guarding, no masses. EXTREMITIES: Show a left upper extremity AV fistula, positive thrill, positive bruit. No lower extr emity edema. No cyanosis or clubbing. NEUROLOGIC: Shows him to be alert and back to baseline. LABORATORY DATA AND IMAGING: Admitting chest x-ray showed bilateral infiltrates. Admitting abdomino pelvic and chest CT showed bilateral infiltrates consistent with pneumonia and a right inguinal herni a. Labs: White blood cell count today down to 11,000 from 13.5; hemoglobin 10.5, down from 12.3. P latelet count is 279,000. Chemistries today showed normal electrolytes. BUN 31 with a creatinine of 6.0. Glucose is 144, calcium 8.8 with a phosphorus of 5.6, magnesium 2.0. Elevated troponin level. BNP level yesterday was elevated at 44,300. Liver enzymes are normal. Albumin level is stable at 3.9. Urines showed no white cells, no red blood cells with 2-3+ proteinuria. MICROBIOLOGY: Blood cultures negative at 24 hours. Urine cultures are negative. ASSESSMENT: 1. End-stage renal disease. The patient will continue Tuesday, Tuesday, Tuesday dialysis. He is sc heduled for dialysis tomorrow. The patient dialyzes in the outpatient setting at [facility] 2. Status post altered mental status, perhaps secondary to sepsis. The patient was diagnosed with b ilateral pneumonia, is currently on antibiotic therapy. He appears to be improving White blood cell count is dropping. The patient is afebrile. Blood cultures are negative to date. 3. Insulin dependent diabetes mellitus, currently stable. The patient is on both long-acting and sl iding scale insulin. 4. History of arteriosclerotic heart disease, history of recent myocardial infarction, status post c ardiac catheterization recently showing multivessel coronary artery disease. The patient will be jean ated medically. He does have a mild elevation of his troponin level. 5. History of aortic stenosis, mitral regurgitation, tricuspid regurgitation and pulmonary hypertens ion, all stable. 6. Past history of gastrointestinal bleed secondary to gastric ulcer. 7. History of anemia secondary to chronic kidney disease. The patient will continue dose appropriat e Aranesp therapy. 8. History of secondary hyperparathyroidism. The patient will continue binder therapy. Phosphorus level mildly elevated at 5.6. PLAN: 1. Continue dialysis Tuesday, Tuesday, Tuesday. Next dialysis is scheduled for tomorrow. 2. Continue antibiotic therapy for patient's bilateral pneumonia. 3. Continue Aranesp per protocol in the dialysis unit. 4. Continue phosphorus binder therapy and renal diet. 5. Continue to monitor patient on telemetry. William Erickson MD cc: [phone] TT: 06/22/2016 13:57:27 Confirmation # [id number] Dictation # [id number] sn
--- NOTE | 2016-06-22 14:18 | CON ---
DATE: 06/22/2016 HISTORY OF PRESENT ILLNESS: The patient is an 85-year-old male who presents with dyspnea. No chest pain noted. PAST MEDICAL HISTORY: Notable for history of end-stage renal disease with dialysis 3 times a week. The patient earlier this year underwent PTCA and stent of an LAD with a bare metal stent. Since, the patient's renal deterioration has required dialysis. The patient's past medical history also includes a history of hypertension, diabetes mellitus and hyp ercholesterolemia. SOCIAL HISTORY: The patient currently is confused. REVIEW OF SYSTEMS: Free of any anginal or ischemic symptoms. PHYSICAL EXAMINATION: NECK: Negative JVD. LUNGS: Without rales. HEART: Reveals S1, S2. EXTREMITIES: Without edema. VITAL SIGNS: Blood pressure 143/78, heart rate is in the 90s. LABORATORIES: Includes a troponin, which has gone from 0.12 to 0.24. The potassium is 6.0. The hem oglobin is 10.5. IMPRESSION: 1. Jpe-TQ-uhilommli myocardial infarction. 2. Coronary artery disease. 3. History of percutaneous transluminal coronary angioplasty and stent of an left anterior descendin g with a bare metal stent earlier this year. 4. End-stage renal disease. 5. Diabetes mellitus. 6. Hypertension. 7. Hypercholesterolemia. 8. Anemia. Given these findings, we will treat the patient's coronary issues with medical therapy. We will cont inue his aspirin. We will increase his beta marco, Lopressor to 50 b.i.d. No plans for invasive c ardiac intervention at this time. Jamin Dewey MD cc: [phone] TT: 06/22/2016 14:18:12 Confirmation # [id number] Dictation # [id number] herlinda
--- NOTE | 2016-06-22 16:36 | CP.PCM.CON ---
History of Present Illness - History of Present Illness History of Present Illness: 85 year old male with PMH of healthcare associated pneumonia, ESRD on HD, coronary artery disease, Cerebrovascular accident, Gastric cancer, Mitral valve prolapse, DM was brought in to [facility] because the patient looked confused, associated with clamminess and generalized weakness. There was no note of fever. The patient had apparently one episode of vomiting. There was no note of convulsions, no diarrhea. The patient does not recall the incident and how he was brought in to the hospital. Currently the patient is awake and alert, not in distress, denies fevers, no abdominal pain, no sore throat, no chest pain, no cough or colds, no headache or dizziness. In the ED, he was noted to have leukocytosis. Infectious Diseases consult is requested to further evaluate and manage. Review of Systems - Review of Systems All systems: reviewed and no additional remarkable complaints except (as per HPI ) Past Patient History - Infectious Disease Hx of Infectious Diseases: None - Tetanus Immunizations Tetanus Immunization: Unknown - Past Medical History & Family History Past Medical History?: Yes Past Family History: Reviewed and not pertinent - Past Social History Smoking Status: Former Smoker Alcohol: None Drugs: Denies - CARDIAC Hx Pacemaker: No - PULMONARY Hx Respiratory Disorders: Yes Hx Pneumonia: Yes - NEUROLOGICAL Hx Paralysis: No - HEENT Hx HEENT Problems: Yes (WEARS RX GLASSES) Hx Epistaxis: Yes - RENAL Hx Dialysis: Yes (-- Schedule) Type of Dialysis Access: Left AV Shunt Date of Last Dialysis Treatment: 06/18/16 Hx Renal Failure: Yes (ESRD) - ENDOCRINE/METABOLIC Hx Diabetes Mellitus Type 2: Yes - HEMATOLOGICAL/ONCOLOGICAL Hx Blood Transfusions: Yes Hx Blood Transfusion Reaction: No Hx Cancer: Yes (Gastric) - INTEGUMENTARY Hx Dermatological Problems: No - MUSCULOSKELETAL/RHEUMATOLOGICAL Hx Musculoskeletal Disorders: No - GASTROINTESTINAL Hx Gastrointestinal Disorders: Yes Hx Constipation: Yes Hx Gastroesophageal Reflux: Yes Other/Comment: COLON POLYPS - GENITOURINARY/GYNECOLOGICAL Hx Genitourinary Disorders: Yes (ESRD ON HEMODIALYSIS PT STATES STILL URINATES) - PSYCHIATRIC Hx Emotional Abuse: No Hx Physical Abuse: No Hx Substance Use: No - SURGICAL HISTORY Other/Comment: AV shunt placement. - ANESTHESIA Hx Anesthesia Reactions: No Hx Malignant Hyperthermia: No Meds Allergies/Adverse Reactions: Allergies Allergy/AdvReac Type Severity Reaction Status Date / Time No Known Allergies Allergy Verified 06/21/16 09:08 - Medications Medications: Current Medications Aspirin (Ecotrin) 81 mg PO DAILY [facility] Last Admin: 06/21/16 12:36 Dose: 81 mg Atorvastatin Calcium (Lipitor) 40 mg PO DIN [facility] Cholecalciferol (Vitamin D) 1,000 iu PO SAT [facility] Donepezil HCl (Aricept) 10 mg PO HS [facility] Folic Acid (Folic Acid) 1 mg PO DAILY [facility] Last Admin: 06/21/16 12:36 Dose: 1 mg Sodium Chloride (Sodium Chloride 0.9%) 1,000 mls @ 100 mls/hr IV .Q10H [facility] Last Admin: 06/21/16 11:30 Dose: 100 mls/hr Insulin Human Lispro (Humalog Low) 0 units SC ACHS [facility] Isosorbide Mononitrate (Imdur) 60 mg PO QAM [facility] Latanoprost (Xalatan Opht) 0 ml OU HS [facility] Losartan Potassium (Cozaar) 100 mg PO DAILY [facility] Last Admin: 06/21/16 12:36 Dose: 100 mg Metoclopramide HCl (Reglan) 5 mg IVP Q6H [facility] Last Admin: 06/21/16 12:37 Dose: 5 mg Metoprolol Tartrate (Lopressor) 25 mg PO BID [facility] Last Admin: 06/21/16 12:36 Dose: 25 mg Non-Formulary Medication (Insulin Detemir [Levemir Flextouch]) 5 units SQ BID [facility] Pantoprazole Sodium (Protonix Inj) 40 mg IVP Q12H [facility] Last Admin: 06/21/16 12:37 Dose: 40 mg Polyethylene Glycol (Miralax) 17 gm PO TID [facility] Polyethylene Glycol (Miralax) 17 gm PO TID [facility] Sevelamer HCl (Renagel) 800 mg PO TID [facility] Tamsulosin HCl (Flomax) 0.4 mg PO DAILY [facility] Last Admin: 06/21/16 12:36 Dose: 0.4 mg Vitamin B Complex/Vit C/Folic Acid (Nephro-Jaylin) 1 tab PO DAILY [facility] Physical Exam - Constitutional Appears: Non-toxic, No Acute Distress - Head Exam Head Exam: NORMAL INSPECTION - ENT Exam ENT Exam: Mucous Membranes Moist - Neck Exam Neck exam: Negative for: Lymphadenopathy, Meningismus - Respiratory Exam Respiratory Exam: Decreased Breath Sounds - Cardiovascular Exam Cardiovascular Exam: +S1, +S2 - GI/Abdominal Exam GI & Abdominal Exam: Soft. absent: Tenderness Results - Vital Signs Recent Vital Signs: Last Vital Signs Temp 97.9 F 06/21/16 09:49 Pulse 119 H 06/21/16 12:36 Resp 20 06/21/16 10:49 BP 130/80 06/21/16 12:36 Pulse Ox 98 06/21/16 10:49 - Labs Result Diagrams: 06/22/16 05:30 06/22/16 05:30 Labs: Laboratory Results - last 24 hr 06/21/16 14:20 pO2 111 H VBG pH 7.40 VBG pCO2 33.0 L VBG HCO3 20.4 L VBG Total CO2 21.4 L VBG O2 Sat (Calc) 98.8 H VBG Base Excess -3.6 L VBG Potassium 4.7 Sodium 136.0 Chloride 103.0 Glucose 152 H Lactate 1.2 FiO2 21.0 Lactic Acid 1.1 Venous Blood Potassium 4.7 Assessment & Plan - Assessment and Plan (Free Text) Plan: Assessment systemic inflammatory response Syndrome, R/O sepsis, source to be determined history of GI bleeding ESRD on HD cornoary artery disease Cerebrovascular accident Gastric cancer Mitral valve prolapse Plan patient given one dose of IV Vancomycin and started on Merrem pending blood, urine cx, PCT, CXR Will monitor clinically
[2016-06-22] MEDS: Latanoprost 2.5 ml Opht Soln OU SCH (22:37)
[2016-06-23] MEDS: Levalbuterol 0.63 MG/3 ML Inhal Soln UD IH SCH ×5 (00:55→20:41)
[2016-06-23] MEDS: Acetylcysteine 20% Inhal Soln (4ml) IH SCH ×5 (00:55→20:41)
[2016-06-23 06:25] LABS: ADD MANUAL DIFF? NO
[2016-06-23 06:32] LABS: BASO # 0.03 K/mm3 (0.0-2.0); BASO % 0.3 % (0.0-3.0); EOS # 0.1 (0.0-0.7); EOS % 1.1 % (1.5-5.0); GRAN # 7.01 (1.4-6.5); GRAN % 71.6 % (50.0-68.0); HEMATOCRIT 28.3 % (42.0-52.0); LYMPH # 1.3 (1.2-3.4); LYMPH % 13.5 % (22.0-35.0); MEAN CELL VOLUME 89.8 fL (80.0-105.0); MEAN CORPUSCULAR HEMOGLOBIN 29.8 pg (25.0-35.0); MEAN CORPUSCULAR HGB CONC 33.2 g/dl (31.0-37.0); MEAN PLATELET VOLUME 10.4 fl (7.0-11.0); MONO # 1.3 (0.1-0.6); MONO % 13.5 % (1.0-6.0); PLATELET COUNT 240 10^3/uL (120.0-450.0); RED CELL DISTRIBUTION WIDTH 17.6 % (11.5-14.5); WHITE BLOOD COUNT 9.8 10^3/ul (4.5-11.0)
[2016-06-23 06:48] LABS: ALB/GLOB RATIO 0.9 (1.1-1.8); BILIRUBIN,DIRECT 0.8 mg/dL (0.0-0.4); BILIRUBIN,TOTAL 0.9 mg/dL (0.2-1.3); CALCIUM 8.6 mg/dL (8.4-10.5); MAGNESIUM 2.1 mg/dL (1.7-2.2); PHOSPHOROUS 5.6 mg/dL (2.5-4.5); POTASSIUM 4.2 mmol/L (3.6-5.0); TOTAL PROTEIN 7.8 g/dL (5.8-8.3)
[2016-06-23 07:10] LABS: TROPONIN I 0.17 ng/mL
--- NOTE | 2016-06-23 08:12 | PN ---
DATE: 06/23/2016 SUBJECTIVE: The patient is comfortable; however, lethargic. PHYSICAL EXAMINATION: VITAL SIGNS: Blood pressure is 129/71, the heart rate is in the 90s. NECK: Negative JVD. LUNGS: Decreased breath sounds without rales. HEART: Reveals S1, S2. EXTREMITIES: Without edema. LABORATORY DATA: The troponin is down to 0.17. The glucose is 205. IMPRESSION: 1. Msm-EY-zotdptkkd myocardial infarction. 2. Coronary artery disease. 3. History of percutaneous transluminal coronary angioplasty and stent of the left anterior descendi ng in the past. 4. End-stage renal disease. 5. Diabetes mellitus. 6. Hypertension. Given these findings, the patient's non-STEMI is being treated medically. I have discussed the optio ns with the patient's who is the healthcare decision maker. She is totally agreeable to it and does not want interventions at this time. Will continue his Lopressor at 50 b.i.d. Jamin Dewey MD cc: [phone] TT: 06/23/2016 08:11:21 Confirmation # [id number] Dictation # [id number] victor manuel
[2016-06-23] MEDS: Insulin Lispro (humaLOG) LOW Coverage SC SCH ×4 (08:42→21:45)
[2016-06-23] MEDS: Insulin Detemir 100 units/ml Vial (Levemir) SC SCH ×2 (08:43→17:42)
--- NOTE | 2016-06-23 08:58 | CARD ---
APPROVED REPORT EKG Measurement Heart [id number] <Conclusion> Sinus rhythm with 1st degree AV block Right bundle branch block Left anterior fascicular block Bifascicular block Abnormal ECG
--- NOTE | 2016-06-23 11:58 | CP.PCM.PN ---
Subjective - Date & Time of Evaluation Date of Evaluation: 06/23/16 Time of Evaluation: 07:50 - Subjective Subjective: For dialysis today; No fevers overnight, comfortable, not in distress. Objective - Vital Signs/Intake and Output Vital Signs (last 24 hours): Temp Pulse Resp BP Pulse Ox 98.1 F 91 H 20 129/71 98 06/23/16 05:36 06/23/16 05:36 06/23/16 05:36 06/23/16 05:36 06/22/16 05:58 Intake and Output: 06/23/16 06/23/16 06:59 18:59 Intake Total 360 Output Total 200 Balance 160 - Medications Medications: Current Medications Acetylcysteine (Acetylcysteine 20%) 4 ml IH [id number] [facility] Last Admin: 06/23/16 07:48 Dose: 4 ml Aspirin (Ecotrin) 81 mg PO DAILY [facility] Last Admin: 06/22/16 09:53 Dose: 81 mg Atorvastatin Calcium (Lipitor) 40 mg PO DIN [facility] Last Admin: 06/22/16 17:44 Dose: 40 mg Cholecalciferol (Vitamin D) 2,000 iu PO DAILY [facility] Last Admin: 06/22/16 09:53 Dose: 2,000 iu Donepezil HCl (Aricept) 10 mg PO HS [facility] Last Admin: 06/22/16 22:36 Dose: 10 mg Folic Acid (Folic Acid) 1 mg PO DAILY [facility] Last Admin: 06/22/16 09:53 Dose: 1 mg Meropenem 500 mg/ Sodium (Chloride) 100 mls @ 100 mls/hr IVPB Q12 [facility] PRN Reason: Protocol Stop: 06/28/16 17:31 Last Admin: 06/22/16 22:37 Dose: 100 mls/hr Doxycycline Hyclate 100 mg/ (Sodium Chloride) 100 mls @ 100 mls/hr IVPB Q12 [facility] PRN Reason: Protocol Last Admin: 06/22/16 22:36 Dose: 100 mls/hr Insulin Detemir (Levemir) 5 unit SC ACBD [facility] Last Admin: 06/23/16 08:43 Dose: Not Given Insulin Human Lispro (Humalog Low) 0 units SC ACHS [facility] Last Admin: 06/23/16 08:42 Dose: Not Given Isosorbide Mononitrate (Imdur) 60 mg PO QAM [facility] Last Admin: 06/22/16 09:52 Dose: 60 mg Latanoprost (Xalatan Opht) 0 ml OU HS [facility] Last Admin: 06/22/16 22:37 Dose: 2.5 ml Levalbuterol HCl (Xopenex) 0.63 mg IH [id number] [facility] Last Admin: 06/23/16 07:47 Dose: 0.63 mg Losartan Potassium (Cozaar) 100 mg PO DAILY [facility] Last Admin: 06/22/16 09:53 Dose: 100 mg Metoclopramide HCl (Reglan) 5 mg IVP Q6 [facility] Last Admin: 06/23/16 07:14 Dose: 5 mg Metoprolol Tartrate (Lopressor) 50 mg PO BID [facility] Last Admin: 06/22/16 17:44 Dose: 50 mg Pantoprazole Sodium (Protonix Inj) 40 mg IVP Q12 [facility] Last Admin: 06/22/16 22:36 Dose: 40 mg Polyethylene Glycol (Miralax) 17 gm PO TID [facility] Last Admin: 06/22/16 17:44 Dose: Not Given Sevelamer HCl (Renagel) 800 mg PO WM [facility] Last Admin: 06/23/16 08:49 Dose: 800 mg Tamsulosin HCl (Flomax) 0.4 mg PO DAILY [facility] Last Admin: 06/22/16 09:53 Dose: 0.4 mg Vitamin B Complex/Vit C/Folic Acid (Nephro-Jaylin) 1 tab PO DAILY [facility] Last Admin: 06/22/16 09:53 Dose: 1 tab - Labs Labs: 06/23/16 05:20 06/23/16 05:20 PT 11.4 Seconds (9.9-11.8) 06/21/16 10:28 INR 1.06 (0.93-1.08) 06/21/16 10:28 APTT 28.6 Seconds (23.7-30.8) 06/21/16 10:28 - Constitutional Appears: Non-toxic, No Acute Distress - Head Exam Head Exam: NORMAL INSPECTION - ENT Exam ENT Exam: Mucous Membranes Moist - Neck Exam Neck Exam: absent: Lymphadenopathy, Meningismus - Respiratory Exam Respiratory Exam: Decreased Breath Sounds - Cardiovascular Exam Cardiovascular Exam: +S1, +S2 - GI/Abdominal Exam GI & Abdominal Exam: Soft. absent: Tenderness Assessment and Plan - Assessment and Plan (Free Text) Plan: Assessment systemic inflammatory response Syndrome, consider sepsis from healthcare- associated pneumonia on top of non-ST elevation LA with acute congestive heart failure history of GI bleeding ESRD on HD cornoary artery disease Cerebrovascular accident Gastric cancer Mitral valve prolapse Plan on Merrem and Doxycycline day 2; blood, urine cx are negative, PCT is only 0.3; CXR reviewed; will d/c Merrem and continue Doxycycline to complete a 4-7 day course Will continue to monitor clinically
--- NOTE | 2016-06-23 13:52 | PN ---
DATE: 06/23/2016 SUBJECTIVE: The patient is seen in the dialysis area. The patient is seen lying in the bed. The pa tient is comfortable. Denies any adverse events. The patient's overnight nurse's notes were reviewe d. The patient slept without any adverse events. PHYSICAL EXAMINATION: VITAL SIGNS: T-max 98.6. Heart rate 89-84-90, blood pressure 129/71, 156/78, 156/97, 150/97, respir ation 20, O2 sat is 97-98%. HEAD: Normocephalic, atraumatic. HEENT: Shows pinkish, pale conjunctivae, anicteric sclerae. No oropharyngeal lesion. NECK: No neck rigidity. Soft carotid bruit. CHEST: Kyphosis. LUNGS: Show positive rhonchi upper lung chaney anterior and posterior bilaterally. CARDIOVASCULAR: Shows S1, S2, regular rhythm. Questionable soft systolic murmur right second interc ostal space, left sternal border, left second intercostal space. ABDOMEN: Soft, positive bowel sounds. GENITALIA: Male. RECTAL: Deferred. EXTREMITIES: Left upper extremity, positive AV fistula, positive thrill. Lower extremities show no pitting edema, no calf tenderness, no Homans sign. VASCULAR: Palpable pulses of the upper and lower extremities. NEUROLOGIC: Cranial nerves II-XII limited. Gait examination is not tested. The patient is seen jim morales in the bed. PSYCHIATRIC: Not applicable except for history of dementia and noncompliance with medication and t. MUSCULOSKELETAL: Body mass index is 22.5. DIAGNOSTICS: 06/23, WBC count is down to 9.8 from 13.5, hemoglobin and hematocrit 9.4 and 28.3, plate let 240, granulocytes 72% segs. Chemistry: Sodium 135, potassium 4.2, chloride 96, CO2 25, anion ga p 18, BUN 47, creatinine 7.5, GFR 8. Fingerstick blood sugar 93, 87, 205, 223, 217, 139, calcium 8.6 , phosphorus 5.6, magnesium 2.1. Troponin is down to 0.17 from 0.24. CPK is negative. Microbiology : Blood and urine cultures are negative so far. Repeat EKGs were reviewed from yesterday and today, show sinus rhythm, left anterior hemiblock, right bundle branch block, ST-T changes, bifascicular bl ock. IMPRESSION: 1. Systemic inflammatory response syndrome with possible sepsis with healthcare-associated bilateral multilobar pneumonia. 2. Acute non-ST elevation myocardial infarction with elevated troponin. 3. Bifascicular block, right bundle branch block and left anterior hemiblock and first degree AV blo ck. 4. Hypertension. 5. Tachycardia. 6. Questionable feeding dysfunction versus noncompliance and poor compliance with medication and t. 7. Leukocytosis with granulocytosis. 8. Normocytic anemia. 9. Lactic acidosis. 10. Insulin-requiring diabetes mellitus. 11. Proteinuria, glycosuria, microscopic hematuria. 12. Questionable lateral coronary ischemic changes on the EKG. 13. End-stage renal disease, hemodialysis dependent 3 times a week via the left upper extremity mita riovenous fistula. 14. Dementia. 15. Deconditioning 16. Gait dysfunction. 17. Insulin-requiring diabetes mellitus. 18. Coronary artery disease with angioplasty. 19. Prostatic hypertrophy. 20. Insulin-requiring diabetes mellitus. 21. Dyslipidemia. 22. Constipation. 23. Secondary hyperparathyroidism. 24. Hypovitaminosis D. PLAN: At this time, the patient is seen by infectious disease and cardiology. Their recommendations are noted. The patient's was also informed about updates and recommendation by cardiology and infectious disease. The patient's was also offered a possibility of evaluation for gastrostomy tube as according to the patient's , the patient has not been eating and taking medications at [facility] and patient seems to be nutritionally at risk according to the information and the history provide d by the patient's . The patient's has not decided regarding the possibilities of considera tion and proceeding with a gastrostomy tube at this time. Infectious disease recommended to disconti nue meropenem, continue doxycycline to complete 4-7 days of antibiotic treatment. The patient seen by cardiology. Recommendations for non-ST elevation myocardial infarction were noted and explained t o the patient's which was no further intervention at this time and continue with the medical the rapy. CURRENT MEDICATIONS: 1. Mucomyst and Xopenex nebulizer treatment every 6 hours. 2. Aricept 10 mg at bedtime. 3. Cozaar 100 mg daily. 4. Doxycycline 100 mg IV q. 12. 5. Aspirin 81 mg daily. 6. Flomax 0.4 mg daily. 7. Folic acid 1 mg daily. 8. Humalog low dose sliding scale coverage before meals and at bedtime. 9. Imdur 60 mg daily. 10. Levemir 5 units with breakfast and dinner. 11. Lipitor 40 mg daily. 12. Lopressor 50 mg twice a day. 13. MiraLax 17 g 3 times a day. 14. Nephro-Jaylin 1 tablet daily. 15. Protonix 40 mg IV q. 12. 16. Reglan 5 mg IV q. 6. 17. Renagel 800 mg with meals. 18. Vitamin D 2000 international units daily. 19. Xalatan eyedrops both eyes at bedtime. 20. Xopenex nebulizer 0.63 mg every 6 hours. Chest PT was ordered, out of bed. Physical therapy, occupational therapy ordered. The patient seen by the physical therapist. Recommendations from today subacute rehab versus TCU. T CU order is already in place. Referral to social media campaign manager, case management already ordered for disch arge planning. Dictated and electronically signed, not read. Zeyad Nazario MD cc: [phone] TT: 06/23/2016 13:51:43 Confirmation # [id number] Dictation # [id number] tn
[2016-06-23] MEDS: POLYETHYLENE GLYCOL 3350 17 GM/Dose PACKET PO SCH ×3 (14:42→17:53)
[2016-06-23] MEDS: Meropenem 500 MG in Sodium Chloride 0.9% 100 ML IVPB SCH (14:43)
[2016-06-23] MEDS: Multivitamin Vitamin B Complex (Nephro-Vite) Tab PO SCH (15:09)
--- NOTE | 2016-06-23 19:53 | PN ---
DATE: 06/23/2016 SUBJECTIVE: The patient is seen in the dialysis unit. The patient is awake. He is alert. He is or iented. He is comfortable. He denies any pain. He denies any shortness of breath. PHYSICAL EXAMINATION: GENERAL: Elderly male lying in bed. VITAL SIGNS: Blood pressure 156/78, heart rate 77, respiratory rate 18, temperature 99, T-max is 99. HEENT: Normocephalic, atraumatic. NECK: Supple, no JVD. LUNGS: Bilateral equal air entry, no rales. CARDIAC: S1, S2, regular rate and rhythm, no murmur, no rub. ABDOMEN: Soft, nondistended, nontender, bowel sounds present. EXTREMITIES: No lower extremity edema. INTAKE AND OUTPUT: Not charted. LABORATORY DATA: WBC 9.8, hemoglobin 9.4, hematocrit 38, platelets 240. Sodium 135, potassium 4.2, chloride 96, CO2 of 25, BUN 47, creatinine 7.5, glucose 87, calcium 8.6, phosphorus 5.6, magnesium 2. 1. Troponin 0.17 down from 0.24. Blood culture no growth. Urine culture no growth. CT of the abdomen and pelvis, extensive bilateral infiltrates in the lungs, right inguinal hernia wit hout obstruction. CURRENT MEDICATIONS: Mucomyst, Aricept, Cozaar 100, doxycycline 100 q. 12, aspirin, Flomax, insulin, Imdur, Levemir, Lipitor, Lopressor, MiraLax, Protonix, Reglan, sevelamer. ASSESSMENT: 1. Altered mental status, resolved. 2. Non-insulin dependent diabetes mellitus. 3. Hypertension. 4. Coronary artery disease. 5. End-stage renal disease. 6. History of gastrointestinal bleed. 7. altered mental status . PLAN: 1. Stable dialysis. 2. Continue antibiotics as per infectious disease recommendations. 3. Continue phosphate binders. Brinda Ibarra MD cc: [phone] TT: 06/23/2016 19:52:45 Confirmation # [id number] Dictation # [id number] mn
[2016-06-23] MEDS: Latanoprost 2.5 ml Opht Soln OU SCH (21:23)
[2016-06-24] MEDS: Levalbuterol 0.63 MG/3 ML Inhal Soln UD IH SCH ×3 (02:30→13:33)
[2016-06-24] MEDS: Acetylcysteine 20% Inhal Soln (4ml) IH SCH ×3 (02:30→13:33)
[2016-06-24 06:06] VITALS: O2SAT 95
[2016-06-24 06:51] LABS: ADD MANUAL DIFF? NO
[2016-06-24 07:10] LABS: BASO # 0.03 K/mm3 (0.0-2.0); BASO % 0.4 % (0.0-3.0); EOS # 0.2 (0.0-0.7); EOS % 2.6 % (1.5-5.0); GRAN # 3.76 (1.4-6.5); GRAN % 55.3 % (50.0-68.0); HEMATOCRIT 29.3 % (42.0-52.0); LYMPH # 1.5 (1.2-3.4); LYMPH % 22.3 % (22.0-35.0); MEAN CELL VOLUME 90.4 fL (80.0-105.0); MEAN CORPUSCULAR HGB CONC 32.1 g/dl (31.0-37.0); MEAN PLATELET VOLUME 10.8 fl (7.0-11.0); MONO # 1.3 (0.1-0.6); MONO % 19.4 % (1.0-6.0); PLATELET COUNT 241 10^3/uL (120.0-450.0); RED CELL DISTRIBUTION WIDTH 17.3 % (11.5-14.5); WHITE BLOOD COUNT 6.8 10^3/ul (4.5-11.0)
[2016-06-24 07:21] LABS: ALB/GLOB RATIO 0.8 (1.1-1.8); ALKALINE PHOSPHATASE 53 U/L (38-133); AST/SGOT 20 U/L (15-59); BILIRUBIN,DIRECT 0.7 mg/dL (0.0-0.4); BILIRUBIN,TOTAL 0.7 mg/dL (0.2-1.3); BLOOD UREA NITROGEN 30 mg/dL (7-21); CALCIUM 8.5 mg/dL (8.4-10.5); CARBON DIOXIDE 30 mmol/L (21-33); CHLORIDE 97 mmol/L (98-107); GFR AFRICAN-AMERICAN 11; GLUCOSE,RANDOM 91 mg/dL (70-110); MAGNESIUM 2.1 mg/dL (1.7-2.2); PHOSPHOROUS 4.4 mg/dL (2.5-4.5); POTASSIUM 4.4 mmol/L (3.6-5.0); SODIUM 136 mmol/L (132-148); TOTAL PROTEIN 7.2 g/dL (5.8-8.3)
[2016-06-24 07:22] LABS: ALT/SGPT < 6 U/L (7-56)
[2016-06-24 07:24] LABS: TROPONIN I 0.14 ng/mL
[2016-06-24] MEDS: Insulin Lispro (humaLOG) LOW Coverage SC SCH ×2 (08:18→13:31)
[2016-06-24] MEDS: Insulin Detemir 100 units/ml Vial (Levemir) SC SCH (08:35)
[2016-06-24] MEDS: POLYETHYLENE GLYCOL 3350 17 GM/Dose PACKET PO SCH ×2 (09:15→13:32)
[2016-06-24] MEDS: Multivitamin Vitamin B Complex (Nephro-Vite) Tab PO SCH (09:16)
--- NOTE | 2016-06-24 12:47 | DS ---
The patient is accepted to transitional care unit as a bed is available. The patient is seen in room 265, bed 1. The patient's overnight nurse's notes were reviewed. The patient slept overnight witho ut any adverse event documented. PHYSICAL EXAMINATION: VITAL SIGNS: The patient is afebrile. Telemetry normal sinus rhythm, heart rate 70-83. Blood press ure 125/71, 163/88, 139/79, 142/89. Respirations 18, O2 sat 95%. HEAD: Normocephalic, atraumatic. HEENT: Shows pinkish, pale conjunctivae, anicteric sclerae. No oropharyngeal lesion. NECK: No neck rigidity. Soft carotid bruit. CHEST: Kyphosis. LUNGS: Shows no rales, crackles, or wheezing. Occasional rhonchi noted, upper lung field. Lung exa mination has significantly clearer breath sounds since admission. ABDOMEN: Soft, positive bowel sounds. GENITALIA: Male. RECTAL: Deferred. EXTREMITIES: Shows positive left upper extremity AV fistula, positive thrill. Lower extremity exami nation shows no pitting edema, no calf tenderness, no Homans signs. NEUROLOGIC: The patient is alert, awake, responsive, follows command. Moves upper and lower extremi ty without assistance. GAIT: Not tested. VASCULAR: Palpable pulses. PSYCHIATRIC: Positive for history of dementia. The patient denies any suicidal or homicidal ideatio n. Denies any auditory or visual hallucination. Denies any anxiety, depression. DIAGNOSTICS: 06/24/2016: WBC 6.8, hemoglobin and hematocrit 9.4 and 29.3, platelets 241. Sodium 13 6, potassium 4.4, chloride 97, CO2 30, anion gap 13, BUN 30, creatinine 5.8, GFR 11, glucose 91, calc ium 8.5, phosphorus 4.4, magnesium 2.1. LFTs are normal. Troponin is down to 0.14. Urine and blood cultures: No growth. The patient seen by infectious disease 06/23/2016. Recommend discontinued meropenem, continue doxycy lee for 4-7 day course. FINAL IMPRESSION: 1. Systemic inflammatory response syndrome with possible sepsis from bilateral healthcare-associated multilobar pneumonia. 2. Acute [id number]-[id number] myocardial infarction with elevated troponin. 3. Tachycardia. 4. Transient uncontrolled hypertension. 5. Leukocytosis with granulocytosis. 6. Normocytic anemia. 7. Lactic acidosis. 8. End-stage renal disease, hemodialysis dependent. 9. Insulin-requiring diabetes mellitus. 10. Acute cug-TB-wewyompli myocardial infarction with elevated troponin. 11. Proteinuria, glycosuria, microscopic hematuria. 12. History of dementia. PLAN: At this time, the patient is accepted to transitional care unit. CURRENT MEDICATIONS: 1. Mucomyst nebulizer treatment 20% 4 mL every 6 hours with Xopenex nebulizer treatment 0.63 mg ever y 6 hours. 2. Aricept 10 mg at bedtime. 3. Cozaar 100 mg daily. 4. Doxycycline 100 mg IV q. 12. 5. Ecotrin 81 mg daily. 6. Flomax 0.4 mg daily. 7. Folic acid 1 mg daily. 8. Humalog low dose sliding scale coverage a.c. and at bedtime. 9. Imdur 60 mg daily. 10. Levemir 5 units with breakfast and dinner. 11. Lipitor 40 mg daily. 12. Lopressor 50 mg twice a day. 13. MiraLax 17 g 3 times a day. 14. Nephro-Jaylin 1 tablet daily. 15. Protonix 40 mg daily. 16. Reglan 5 mg IV q. 6. 17. Vitamin D3 2000 units daily. 18. Xalatan eyedrops. Chest PT, consistent carbohydrate diet, out of bed, SAMAN stockings, physical therapy, occupational the rapy ordered. The patient has been ordered to be transferred and discharged to transitional care [facility] under Dr. Nazario's service with discharge medications as dictated above. Time spent in the entire discharge process: More than 45 minutes. Dictated and electronically signed; not read. Zeyad Nazario MD cc: [phone] TT: 06/24/2016 12:46:42 victor manuel
--- NOTE | 2016-06-24 12:47 | PN ---
DATE: 06/24/2016 CARDIOLOGY FOLLOWUP SUBJECTIVE: The patient is comfortable. No chest pain noted. PHYSICAL EXAMINATION: VITAL SIGNS: Blood pressure is 125/71. The heart rate is in the 80s. NECK: Negative JVD. LUNGS: Decreased breath sounds without rales. HEART: Reveals S1, S2. EXTREMITIES: Without edema. LABORATORY DATA: The troponin is down to 0.14. BUN and creatinine are 30 and 5.8. Hemoglobin is 9. 4. IMPRESSION: 1. Non-ST elevation myocardial infarction. 2. End-stage renal disease. 3. Anemia. 4. Diabetes mellitus. 5. Hypertension. PLAN: Given these findings, the patient's non-STEMI and acute coronary syndrome will be treated med ically. The patient remains chest pain free. This was discussed with the patient's who is the healthcare decision-maker. She is agreeable that no intervention should be done. Jamin Dewey MD cc: [id number] TT: 06/24/2016 11:57:07 Confirmation # [id number] Dictation # [id number] jn
[2016-06-24 13:44] VITALS: BP 185/101; RESP 19; TEMP 97.1
--- NOTE | 2016-06-24 14:32 | PN ---
DATE: 06/24/2016 SUBJECTIVE: The patient is seen lying in bed. He is awake, he is alert, he is comfortable. PHYSICAL EXAMINATION: VITAL SIGNS: Blood pressure 163/88, heart rate 72, respiratory rate 18, temperature 98. HEENT: Normocephalic, atraumatic. NECK: Supple. No JVD. LUNGS: Bilateral equal air entry, bilateral rhonchi. EXTREMITIES: No lower extremity edema. LABORATORY DATA: WBC 6.8, hemoglobin 9.4, hematocrit 29, platelets 241. Sodium 136, potassium 4.4, chloride 97, CO2 of 30, BUN 30, creatinine 5.8, glucose 91, calcium 8.5, phosphorus 4.4, magnesium 2. 1, troponin 0.14, albumin 3.3. CURRENT MEDICATIONS: Aricept, Cozaar, doxycycline, Ecotrin, Flomax, folic acid, insulin, Imdur, Leve cyndee, Lipitor, Lopressor, MiraLax, vitamin C, Protonix, Reglan, sevelamer, cholecalciferol. ASSESSMENT: 1. Lmk-WF-ofuuvgkpn myocardial infarction, elevated troponins. 2. Status post systemic inflammatory response syndrome, bilateral pneumonia. 3. End-stage renal disease. 4. Qwn-moqxpfn-onvsrtbce diabetes mellitus. 5. Hypertension. 6. Anemia. 7. History of gastrointestinal bleed. PLAN: 1. Management of cye-SV-zwedogbkw myocardial infarction. Conservative as per cardiology. 2. Continue antibiotics as per infectious disease recommendations. 3. Stable dialysis yesterday. 4. Continue current management. 5. Discharge planning. Brinda Ibarra MD cc: [id number] TT: 06/24/2016 14:32:33 Confirmation # [id number] Dictation # [id number] mn
[2016-06-24 14:54] VITALS: PULSE 76
== END 2016-06-24 17:44 | DRG 871 ==
LOC: ED 09:05 → ERH 11:27 → 2RNO 19:02
PROVIDERS: ADMIT Internal Medicine; ATTEND Internal Medicine
DX: A41.9 Sepsis, unspecified organism (principal); J18.9 Pneumonia, unspecified organism; I21.4 Non-ST elevation (NSTEMI) myocardial infarction; E87.2 Acidosis; N18.6 End stage renal disease; E11.22 Type 2 diabetes mellitus with diabetic chronic kidney disease; I12.0 Hypertensive chronic kidney disease with stage 5 chronic kidney disease or end stage renal disease; F03.90 Unspecified dementia, unspecified severity, without behavioral disturbance, psychotic disturbance, mood disturbance, and anxiety; I27.2 Other secondary pulmonary hypertension; I45.2 Bifascicular block; N25.81 Secondary hyperparathyroidism of renal origin; I08.3 Combined rheumatic disorders of mitral, aortic and tricuspid valves; K31.84 Gastroparesis; E11.43 Type 2 diabetes mellitus with diabetic autonomic (poly)neuropathy; E83.39 Other disorders of phosphorus metabolism; Y95 Nosocomial condition; Z99.2 Dependence on renal dialysis; Z79.84 Long term (current) use of oral hypoglycemic drugs; Z79.4 Long term (current) use of insulin; R31.29 Other microscopic hematuria; E78.00 Pure hypercholesterolemia, unspecified; K21.9 Gastro-esophageal reflux disease without esophagitis; I25.2 Old myocardial infarction; I25.10 Atherosclerotic heart disease of native coronary artery without angina pectoris; Z91.11 Patient's noncompliance with dietary regimen; Z91.19 Patient's noncompliance with other medical treatment and regimen; Z91.14 Patient's other noncompliance with medication regimen; Z79.82 Long term (current) use of aspirin; K40.90 Unilateral inguinal hernia, without obstruction or gangrene, not specified as recurrent; Z95.5 Presence of coronary angioplasty implant and graft; Z85.028 Personal history of other malignant neoplasm of stomach; Z79.899 Other long term (current) drug therapy; D63.1 Anemia in chronic kidney disease; E55.9 Vitamin D deficiency, unspecified; I44.0 Atrioventricular block, first degree; E87.5 Hyperkalemia; E87.70 Fluid overload, unspecified; H40.9 Unspecified glaucoma; N40.0 Benign prostatic hyperplasia without lower urinary tract symptoms; Z86.73 Personal history of transient ischemic attack (TIA), and cerebral infarction without residual deficits; Z87.891 Personal history of nicotine dependence; Z87.11 Personal history of peptic ulcer disease

== ENCOUNTER 2016-06-24 17:52 | Inpatient (IN) | payer OTHER, BC ==
[2016-06-24 18:11] VITALS: BMI 23.3
[2016-06-24] MEDS: Insulin Reg-LOW-Coverage SC SCH ×2 (19:20→22:05)
[2016-06-24] MEDS: Insulin Detemir 100 units/ml Vial (Levemir) SC SCH (19:24)
[2016-06-24] MEDS: Levalbuterol 0.63 MG/3 ML Inhal Soln UD IH SCH (20:05)
[2016-06-24] MEDS: Acetylcysteine 20% Inhal Soln (4ml) IH SCH (20:05)
[2016-06-24] MEDS ORDERED: Pneumococcal 23-Valent Vaccine IM ONE (20:50)
[2016-06-24] MEDS ORDERED: Influenza Vaccine 45 MCG/0.5 ml IM ONE (20:50)
[2016-06-24] MEDS: Latanoprost 2.5 ml Opht Soln OU SCH (21:21)
[2016-06-24] MEDS ORDERED: DOXYCYCLINE HYCLATE 100 MG IVPB SCH (22:00)
[2016-06-24] MEDS: POLYETHYLENE GLYCOL 3350 17 GM/Dose PACKET PO SCH (22:09)
[2016-06-25] MEDS: Acetylcysteine 20% Inhal Soln (4ml) IH SCH ×4 (01:37→19:48)
[2016-06-25] MEDS: Levalbuterol 0.63 MG/3 ML Inhal Soln UD IH SCH ×4 (01:37→19:47)
[2016-06-25] MEDS: Pantoprazole 40 mg EC Tab PO SCH (05:54)
[2016-06-25] MEDS: Insulin Reg-LOW-Coverage SC SCH ×4 (06:43→22:38)
[2016-06-25] MEDS: Insulin Detemir 100 units/ml Vial (Levemir) SC SCH ×2 (06:43→16:44)
[2016-06-25] MEDS: Multivitamin Vitamin B Complex (Nephro-Vite) Tab PO SCH (10:15)
[2016-06-25] MEDS: POLYETHYLENE GLYCOL 3350 17 GM/Dose PACKET PO SCH ×3 (10:15→17:43)
--- NOTE | 2016-06-25 11:23 | PN ---
DATE: 06/25/2016 The patient is chest pain free in the TCU. He is participating with bedside physical therapy well. PHYSICAL EXAMINATION: VITAL SIGNS: Blood pressure is 143/72, the heart rate is in the 70s. NECK: Negative JVD. LUNGS: Without rales. HEART: Reveals S1, S2. EXTREMITIES: Without edema. LABORATORIES: Reviewed and found to be unremarkable. IMPRESSION: 1. Stable angina. 2. Recent non-ST elevation myocardial infarction. 3. Coronary artery disease. 4. Diabetes mellitus. 5. End-stage renal disease. 6. Hypertension. 7. Hypercholesterolemia. PLAN: We will continue medical therapy for his recent acute coronary syndrome. The beta marco see ms to be controlling his symptoms well. Jamin Dewey MD cc: [id number] TT: 06/25/2016 11:22:59 Confirmation # [id number] Dictation # [id number] tn
--- NOTE | 2016-06-25 12:37 | HP ---
HISTORY OF PRESENT ILLNESS: The patient is an 85-year-old male initially admitted on 06/21 to 06/24 on the telemetry floor for sepsis and pneumonia. The patient was later on accepted by the TCU for continuation of IV antibiotic and physical therapy. The patient is seen now and patient is now admitted to TCU room 318, bed 1. The patient is seen lying in the bed. The patient is alert, awake, responsive, doing physical and occupational therapy. Patient: KALEB SHARPE Unit: [id number] : 1930 Age/Sex: 85 / M ADM Status: ADM IN Copied To: Attending MD: Zeyad Nazario MD HISTORY OF PRESENT ILLNESS: The patient is an 85-year-old -[place] male who was brought to the [facility] Emergency Room accompanied by the patient's . The patient came to the Emergency Room by [facility] BLS ambulance. According to the patient's , Mrs. ____, the patient has been found to be confused with altered mental status, dry heaving, nausea, vomiting and felt warm. According to the patient's , the patient has been feeling warm, but without any documented temperature by the patient's . The patient was recently seen about a week ago in the office and the patient was without above symptoms. CODE STATUS: Full code. LIVING WILL AND ADVANCED DIRECTIVE: None. ALLERGIES: None. SOCIAL HISTORY: Positive for former, negative for alcohol, negative substance abuse, negative for communicable transmissible disease. PAST MEDICAL AND SURGICAL HISTORY: History of cerebral infarct, history of severe dietary and medication noncompliance, history of end-stage renal disease , hemodialysis dependent 3 times a week via the left upper extremity AV fistula , history of recurrent gastrointestinal bleeding, history of hypovitaminosis D, history of glaucoma, history of cataracts, history of constipation, history of prostate hypertrophy, history of gastroesophageal reflux, history of type 1 insulin-requiring diabetes mellitus, history of diabetic gastroparesis, history of angina, history of dementia, history of poor compliance, history of former smoker, history of gastric carcinoma, history of multiple packed red blood cell transfusion, history of colonic polyps. The patient was seen and evaluated in the Emergency Room by the ER physician. The patient complained of nausea, vomiting and dry heaving. The patient was felt to be warm and clammy according to the patient's . The patient has missed his dialysis for today. PHYSICAL EXAMINATION: GENERAL: The patient was seen in stretcher #3 in the Emergency Room. The patient is lying in the bed. The patient is arousable. The patient's is at bedside. VITAL SIGNS: T-max 98.6. Telemetry shows sinus tachycardia, heart rate ____, 133, 98, 119. Blood pressure is 183/98, 177/62, 130/80. Respirations 19-20. O2 sat is 97-98. HEAD: Normocephalic, atraumatic. EENT: Shows pinkish, pale conjunctivae, anicteric sclerae. No oropharyngeal lesion. NECK: Questionable soft carotid bruit. CHEST: Kyphosis. LUNGS: Shows positive rhonchi upper lung chaney, questionable creps to upper lung chaney. CARDIOVASCULAR: Shows S1, S2, regular rhythm. ABDOMEN: Soft, positive bowel sounds. Mild epigastric periumbilical guarding, no rebound tenderness, no costovertebral angle tenderness. GENITALIA: Male. RECTAL: Deferred. EXTREMITIES: Shows positive left upper extremity AV fistula, positive thrill. Lower extremities show no pitting edema, no calf tenderness, no Homans' sign. NEUROLOGIC: The patient is alert, awake, responsive, is able to move upper and lower extremity without assistance. Gait examination is not tested. VASCULAR: Palpable pulses of the lower extremity. MUSCULOSKELETAL: Shows a body mass index of 24. Cranial nerves II-XII limited. HOME MEDICATIONS: As per the [facility] intake, which shows: 1. Aricept 10 mg at bedtime. 2. Bystolic 5 mg daily. 3. Cozaar 100 mg daily. 4. Flomax 0.4 mg daily. 5. Folic acid 1 mg daily. 6. Imdur 60 mg once or twice a day. 7. Levemir flexed at 5 units with breakfast and dinner. 8. Linzess 145 mcg p.o. daily p.r.n. 9. Lipitor 40 mg daily. 10. Aspirin 81 mg daily. 11. MiraLax 17 grams 2-3 times a day ____. 12. Prilosec 40 mg daily. 13. Reglan 5 mg 4 times a day p.r.n. 14. Suzanna-Jaylin 1 tablet daily. 15. Renagel 800 mg 3 times a day. 16. Travatan eye drops both eyes at bedtime. 17. Vitamin D2 at 50,000 units weekly. DIAGNOSTICS: WBC 13.3, hemoglobin and hematocrit 12.3 and 37.4, platelet 182, granulocytes 83%. PT, PTT 11.4 and 28.6. VBG shows a lactate of 2.6, pH of 7.35, pO2 of 77, pCO2 of 37, bicarbonate 21, saturation of 97%. Sodium 138, potassium 4.2, chloride 98, CO2 of 22, anion gap of 23, BUN 56, creatinine 8.9, glucose 138, lactic acid 1.1, phosphorus 5.2, troponin 0.12. BNP 44,300. Procalcitonin 0.630. Urine pH 8.0, specific gravity 1.020, 100 protein, 100 glucose, ____ blood. The patient's chest x-ray was reviewed. The patient had patchy bilateral infiltrates ____ infiltrate noted. The patient was sent for a CAT scan of the chest, abdomen and pelvis with contrast. The results were reviewed. It shows extensive bilateral infiltrate interstitial, bilateral pleural effusion, extensive coronary artery calcifications, right inguinal hernia nonobstructing. The patient's EKG was done in the Emergency Room, which shows sinus tachycardia , left anterior hemiblock and right bundle branch block. The patient was seen by Dr. Oneal with the medical researcher. IMPRESSION: 1. Possible sepsis with bilateral community-acquired pneumonia and infiltrate. 2. Uncontrolled hypertension with tachycardia. 3. Leukocytosis with granulocytosis. 4. Sepsis with extensive bilateral community-acquired pneumonia and interstitial pneumonia. 5. Small bilateral pleural effusions. 6. Extensive coronary artery calcification. 7. Nonobstructing right inguinal hernia. 8. Dementia. 9. Tachycardia. 10. Leukocytosis with granulocytosis and normocytic anemia. 11. Lactic acidosis. 12. End-stage renal disease, hemodialysis dependent. 13. Increased anion gap metabolic acidosis. 14. Insulin requiring diabetes mellitus. 15. Indeterminate troponin versus questionable non-ST elevation myocardial infarction with elevated troponin of 0.12 in an end-stage renal disease patient. 16. Elevated BNP, probably secondary to volume overload. 17. Proteinuria, glycosuria, microscopic hematuria. 18. Left anterior hemiblock. 19. Right bundle branch block. 20. Bifascicular block. 21. End-stage renal disease, hemodialysis dependent via the left upper extremity arteriovenous fistula. 22. Possible toxic metabolic encephalopathy secondary to sepsis. 23. Non-hemolyzed mild hyperkalemia. 24. Deconditioning. 25. History of diabetic gastroparesis, history of constipation, history of noncompliance, history of hypovitaminosis D, history of prostate hypertrophy, history of constipation, history of insulin-requiring diabetes mellitus, history of dyslipidemia, history of angina, history of diabetic gastroparesis. PLAN: At this time, the patient has been admitted for admission to telemetry. Repeat labs and repeat cardiac enzymes have been ordered. Cardiology consultation, infectious disease consultation, nephrology consultation ordered. The patient has been started on Levemir flexed patch 5 units a.c. breakfast and dinner. The patient has been resumed on Aricept 10 mg at bedtime. The patient has been started on Cozaar 100 mg daily. The patient has been ordered vibramycin 100 mg IV q. 12, Ecotrin 81 daily, Flomax 0.4 mg daily, folic acid 1 mg daily, Humalog low dose sliding scale coverage a.c. and at bedtime, Imdur 60 mg daily, Lipitor 40 mg daily. The patient is started on Lopressor 25 mg twice a day. The patient is seen by infectious disease and started on meropenem 500 IV q. 12, MiraLax 17 g 3 times a day, Nephro-Jaylin 1 tablet daily, Protonix 40 IV q. 12, Reglan 5 mg IV q. 6, Renagel 800 mg 3 times a day. The patient was given IV fluid 0.9 normal saline 1 liter bolus in the Emergency Room by the medical researcher. The patient was given vancomycin 1 gram IV in the Emergency Room. The patient is on vitamin D 1000 unit weekly. The patient is on Xalatan eyedrops. The patient also received Zosyn 4.5 grams in the Emergency Room. The patient has been ordered a repeat EKG. The patient will be ordered diabetic diet. At present, the patient's condition, diagnosis, management plan , overall guarded to poor prognosis and critical condition were discussed and explained to the patient and the patient's at length who I met in the Emergency Room. I have explained to the patient and the patient's about overall patient's decompensated status and worsening of the patient's condition and multiple hospitalizations in the last few months was explained to the patient and the patient's at length and all questions and concerns answered. In addition, blood and urine cultures are ordered. Repeat labs are ordered. The patient's further management will be dependent on the patient's clinical condition, hemodynamic status, and as per patient response to therapeutic intervention, as per infectious disease, nephrology and cardiology recommendations. PHYSICAL EXAMINATION: VITAL SIGNS: T-max 98.2, pulse 73, blood pressure 143/72, respirations 16, O2 sat 99%. HEAD: Normocephalic, atraumatic. HEENT: Shows pinkish, pale conjunctivae, anicteric sclerae. No oropharyngeal lesion. NECK: No neck rigidity. Soft carotid bruit. CHEST: Kyphosis. LUNGS: Shows very occasional rhonchi upper lung chaney. CARDIOVASCULAR: Shows S1, S2, regular rhythm, positive systolic murmur right second intercostal space, left sternal border. ABDOMEN: Soft, positive bowel sounds. GENITALIA: Male. RECTAL: Deferred. EXTREMITIES: Shows no pitting edema, no calf tenderness, no Consuelo sign. NEUROLOGIC: The patient is alert, awake, oriented x 3. Is able to move upper and lower extremities without assistance. Gait examination is not tested. VASCULAR: Palpable pulses. MUSCULOSKELETAL: Shows a body mass index of . DIAGNOSTICS: None. Fingerstick blood sugar 92. ADMISSION IMPRESSION, PLAN AND DIAGNOSES: 1. Gait dysfunction. 2. Deconditioning. 3. Poor compliance and noncompliance with medication. 4. Hypertension. 5. Tachycardia. 6. Systemic inflammatory response syndrome with possible sepsis with healthcare -associated multilobar pneumonia. 7. Non-ST elevation myocardial infarction. 8. End-stage renal disease, hemodialysis dependent. 9. Insulin-requiring diabetes mellitus. 10. Dementia. 11. Hypertension. 12. Prostatitic hypertrophy. 13. Insulin-requiring diabetes mellitus. 14. Dyslipidemia. 15. Constipation. 16. Diabetic gastroparesis. 17. Hypovitaminosis D. 18. Deconditioning. 19. Feeding and eating dysfunction. 1. Systemic inflammatory response syndrome with possible sepsis from bilateral healthcare-associated multilobar pneumonia. 2. Acute grh-SP-qrkomijnz myocardial infarction with elevated troponin. 3. Tachycardia. 4. Transient uncontrolled hypertension. 5. Leukocytosis with granulocytosis. 6. Normocytic anemia. 7. Lactic acidosis. 8. End-stage renal disease, hemodialysis dependent. 9. Insulin-requiring diabetes mellitus. 10. Acute opm-CT-obgwrmfkx myocardial infarction with elevated troponin. 11. Proteinuria, glycosuria, microscopic hematuria. 12. History of dementia. 1. Systemic inflammatory response syndrome with possible sepsis with healthcare -associated bilateral multilobar pneumonia. 2. Acute non-ST elevation myocardial infarction with elevated troponin. 3. Bifascicular block, right bundle branch block and left anterior hemiblock and first degree AV block. 4. Hypertension. 5. Tachycardia. 6. Questionable feeding dysfunction versus noncompliance and poor compliance with medication and diet. 7. Leukocytosis with granulocytosis. 8. Normocytic anemia. 9. Lactic acidosis. 10. Insulin-requiring diabetes mellitus. 11. Proteinuria, glycosuria, microscopic hematuria. 12. Questionable lateral coronary ischemic changes on the EKG. 13. End-stage renal disease, hemodialysis dependent 3 times a week via the left upper extremity arteriovenous fistula. 14. Dementia. 15. Deconditioning 16. Gait dysfunction. 17. Insulin-requiring diabetes mellitus. 18. Coronary artery disease with angioplasty. 19. Prostatic hypertrophy. 20. Insulin-requiring diabetes mellitus. 21. Dyslipidemia. 22. Constipation. 23. Secondary hyperparathyroidism. 24. Hypovitaminosis D. 1. Questionable and possible sepsis with bilateral community-acquired extensive pneumonia and interstitial pneumonia. 2. Uncontrolled hypertension. 3. Tachycardia. 4. Dementia. 5. Poor compliance with diet and medication. 6. Leukocytosis with granulocytosis. 7. Normocytic anemia. 8. Lactic acidosis. 9. Nonhemolyzed hyperkalemia. 10. End-stage renal disease, hemodialysis dependent. 11. Increased anion gap metabolic acidosis. 12. Hyperphosphatemia. 13. Questionable acute odo-WN-fokgvugnh myocardial infarction with elevated troponin and lateral coronary ischemic changes on the EKG in lead I, aVL, and V3 -V6. 14. Bifascicular block with left anterior hemiblock and right bundle branch block. 15. Elevated BNP, probably secondary to volume overload. 16. Possible acute kcj-OI-xbcgacfhz myocardial infarction with elevated troponin and lateral ischemic changes on the EKG. 17. Proteinuria, glycosuria, microscopic hematuria. 18. Insulin-requiring diabetes mellitus. 19. Hyperphosphatemia. 20. Granulocytosis. 21. Extensive bilateral interstitial pneumonia and infiltrate with small bilateral pleural effusion. 22. Extensive coronary artery calcification. 23. Right inguinal hernia, nonobstructed 24. End-stage renal disease, hemodialysis dependent 3 times a week via left upper extremity arteriovenous fistula. 25. History of dementia. 26. Leukocytosis with granulocytosis and normocytic anemia. 27. Lactic acidosis, increased anion gap metabolic acidosis and lactic acidosis. 28. Proteinuria, glycosuria, microscopic hematuria. 29. Possible toxic metabolic encephalopathy secondary to sepsis. 30. Deconditioning. 31. History of diabetic gastroparesis, history of constipation, history of poor compliance, history of hypovitaminosis D, history of prostate hypertrophy, history of constipation, history of insulin-requiring diabetes mellitus, history of dyslipidemia, history of angina, history of diabetic gastroparesis. 1. Possible sepsis with bilateral community-acquired pneumonia and infiltrate. 2. Uncontrolled hypertension with tachycardia. 3. Leukocytosis with granulocytosis. 4. Sepsis with extensive bilateral community-acquired pneumonia and interstitial pneumonia. 5. Small bilateral pleural effusions. 6. Extensive coronary artery calcification. 7. Nonobstructing right inguinal hernia. 8. Dementia. 9. Tachycardia. 10. Leukocytosis with granulocytosis and normocytic anemia. 11. Lactic acidosis. 12. End-stage renal disease, hemodialysis dependent. 13. Increased anion gap metabolic acidosis. 14. Insulin requiring diabetes mellitus. 15. Indeterminate troponin versus questionable non-ST elevation myocardial infarction with elevated troponin of 0.12 in an end-stage renal disease patient. 16. Elevated BNP, probably secondary to volume overload. 17. Proteinuria, glycosuria, microscopic hematuria. 18. Left anterior hemiblock. 19. Right bundle branch block. 20. Bifascicular block. 21. End-stage renal disease, hemodialysis dependent via the left upper extremity arteriovenous fistula. 22. Possible toxic metabolic encephalopathy secondary to sepsis. 23. Non-hemolyzed mild hyperkalemia. 24. Deconditioning. 25. History of diabetic gastroparesis, history of constipation, history of noncompliance, history of hypovitaminosis D, history of prostate hypertrophy, history of constipation, history of insulin-requiring diabetes mellitus, history of dyslipidemia, history of angina, history of diabetic gastroparesis. PLAN: At this time, patient is to be continued on TCU stay with evaluation by physical therapy, occupational therapy, ambulation therapy, and gait training. The patient has been ordered repeat lab work. CURRENT MEDICATIONS: 1. Mucomyst nebulizer 20% 4 mL q. 6 hours with Xopenex nebulizer 0.63 mg every 6 hours. 2. Aricept 10 mg at bedtime. 3. Cozaar 100 mg daily. 4. Ecotrin 81 mg daily. 5. Flomax 0.4 mg daily. 6. Folic acid 1 mg daily. 7. Regular insulin low dose sliding scale coverage. 8. Imdur 60 mg daily. 9. Levemir 5 units a.c. breakfast and dinner. 10. Lipitor 40 mg daily. 11. Lopressor 50 mg twice a day. 12. MiraLax 17 g 3 times a day. 13. Nephro-Jaylin 1 tablet daily. 14. Periactin started at 4 mg twice a day. 15. Protonix 40 mg daily. 16. Reglan 5 mg IV q. 6. 17. Renagel 800 mg with meals. 18. Doxycycline 100 mg IV q. 12. 19. Drisdol 2000 units daily. 20. Xalatan eyedrops daily. 21. Xopenex nebulizer 0.63 mg q. 6 hours. Chest PT. Renal diet. Out of bed to chair. The patient has been ordered physical therapy and occupational therapy. At present, the patient is to be continued on the above therapeutic intervention. Will be continued on the transitional care unit stay with therapeutic and diagnostic interventions as ordered. Dictated and electronically signed, not read. Zeyad Nazario MD cc: [id number] TT: 06/25/2016 12:36:19 [email or web address] [email or web address]
[2016-06-25 13:28] LABS: HEMATOCRIT 27.5 % (42.0-52.0); MEAN CELL VOLUME 89.3 fL (80.0-105.0); MEAN CORPUSCULAR HEMOGLOBIN 29.5 pg (25.0-35.0); MEAN CORPUSCULAR HGB CONC 33.1 g/dl (31.0-37.0); MEAN PLATELET VOLUME 10.9 fl (7.0-11.0); WHITE BLOOD COUNT 6.8 10^3/ul (4.5-11.0)
[2016-06-25 13:40] LABS: ALB/GLOB RATIO 0.9 (1.1-1.8); BILIRUBIN,TOTAL 0.4 mg/dL (0.2-1.3); CALCIUM 8.6 mg/dL (8.4-10.5); MAGNESIUM 2.1 mg/dL (1.7-2.2); PHOSPHOROUS 5.2 mg/dL (2.5-4.5); POTASSIUM 4.2 mmol/L (3.6-5.0); TOTAL PROTEIN 6.9 g/dL (5.8-8.3)
--- NOTE | 2016-06-25 15:30 | CP.PCM.CON ---
History of Present Illness - History of Present Illness History of Present Illness: 85 year old male with PMH of healthcare associated pneumonia, ESRD on HD, coronary artery disease, Cerebrovascular accident, Gastric cancer, Mitral valve prolapse, DM was initially admitted to [facility] because of NSTEMI and atypical healthcare-associated pneumonia. He has improved clinically and is now transferred to [facility] for continued medical therapy and physical rehabilitation. Infectious diseases consult is requested to see if he still needs to continue his antibiotic therapy. Currently the patient is comfortable in bed, not in distress, no fevers, no chills, no diarrhea, no abdominal pain, no sore throat, no chest pain, no cough or colds, no headache or dizziness. Review of Systems - Review of Systems All systems: reviewed and no additional remarkable complaints except (as per HPI ) Past Patient History - Infectious Disease Hx of Infectious Diseases: None - Tetanus Immunizations Tetanus Immunization: Unknown - Past Medical History & Family History Past Medical History?: Yes Past Family History: Reviewed and not pertinent - Past Social History Smoking Status: Former Smoker Alcohol: None Drugs: Denies Home Situation {Lives}: With Family - CARDIAC Hx Pacemaker: No - PULMONARY Hx Respiratory Disorders: Yes Hx Pneumonia: Yes - NEUROLOGICAL HX Cerebrovascular Accident: Yes - HEENT Hx HEENT Problems: Yes (WEARS RX GLASSES) Hx Epistaxis: Yes - RENAL Hx Dialysis: Yes ( Schedule) Hx Renal Failure: Yes (ESRD) - ENDOCRINE/METABOLIC Hx Diabetes Mellitus Type 2: Yes - HEMATOLOGICAL/ONCOLOGICAL Hx Cancer: Yes (Gastric) - INTEGUMENTARY Hx Dermatological Problems: No - MUSCULOSKELETAL/RHEUMATOLOGICAL Hx Falls: Yes (past) - GASTROINTESTINAL Hx Gastrointestinal Disorders: Yes (diverticulitis/reflux) - GENITOURINARY/GYNECOLOGICAL Hx Genitourinary Disorders: (pt voids) Hx Reproductive Disorders: Yes - PSYCHIATRIC Hx Emotional Abuse: No Hx Physical Abuse: No - SURGICAL HISTORY Other/Comment: AV shunt placement. - ANESTHESIA Hx Anesthesia Reactions: No Hx Malignant Hyperthermia: No Meds Allergies/Adverse Reactions: Allergies Allergy/AdvReac Type Severity Reaction Status Date / Time No Known Allergies Allergy Verified 06/24/16 18:10 - Medications Medications: Current Medications Acetylcysteine (Acetylcysteine 20%) 4 ml IH [id number] FRANCISCO JAVIER PRN Reason: Protocol Last Admin: 06/25/16 01:37 Dose: Not Given Aspirin (Ecotrin) 81 mg PO DAILY FRANCISCO JAVIER PRN Reason: Protocol Atorvastatin Calcium (Lipitor) 40 mg PO DIN FRANCISCO JAVIER PRN Reason: Protocol Cholecalciferol (Vitamin D) 2,000 iu PO DAILY FRANCISCO JAVIER PRN Reason: Protocol Donepezil HCl (Aricept) 10 mg PO HS FRANCISCO JAVIER PRN Reason: Protocol Last Admin: 06/24/16 21:22 Dose: 10 mg Folic Acid (Folic Acid) 1 mg PO DAILY FRANCISCO JAVIER PRN Reason: Protocol Doxycycline Hyclate 100 mg/ (Sodium Chloride) 100 mls @ 100 mls/hr IVPB Q12 FRANCISCO JAVIER Last Admin: 06/24/16 21:18 Dose: 100 mls/hr Insulin Detemir (Levemir) 5 unit SC ACBD FRANCISCO JAVIER PRN Reason: Protocol Last Admin: 06/24/16 19:24 Dose: 5 unit Insulin Human Regular (Humulin R Low) 0 units SC ACHS FRANCISCO JAVIER PRN Reason: Protocol Last Admin: 06/24/16 22:05 Dose: Not Given Isosorbide Mononitrate (Imdur) 60 mg PO QAM FRANCISCO JAVIER PRN Reason: Protocol Latanoprost (Xalatan Opht) 1 ml OU HS FRANCISCO JAVIER PRN Reason: Protocol Last Admin: 06/24/16 21:21 Dose: 1 ml Levalbuterol HCl (Xopenex) 0.63 mg IH [id number] FRANCISCO JAVIER PRN Reason: Protocol Last Admin: 06/25/16 01:37 Dose: Not Given Losartan Potassium (Cozaar) 100 mg PO DAILY FRANCISCO JAVIER PRN Reason: Protocol Metoclopramide HCl (Reglan) 5 mg IVP Q6 FRANCISCO JAVIER PRN Reason: Protocol Last Admin: 06/25/16 05:35 Dose: 5 mg Metoprolol Tartrate (Lopressor) 50 mg PO 0800,1800 FRANCISCO JAVIER PRN Reason: Protocol Last Admin: 06/24/16 19:29 Dose: 50 mg Pantoprazole Sodium (Protonix Ec Tab) 40 mg PO 0630 FRANCISCO JAVIER PRN Reason: Protocol Last Admin: 06/25/16 05:54 Dose: 40 mg Polyethylene Glycol (Miralax) 17 gm PO TID FRANCISCO JAVIER PRN Reason: Protocol Last Admin: 06/24/16 22:09 Dose: Not Given Sevelamer HCl (Renagel) 800 mg PO WM FRANCISCO JAVIER PRN Reason: Protocol Tamsulosin HCl (Flomax) 0.4 mg PO DAILY FRANCISCO JAVIER PRN Reason: Protocol Vitamin B Complex/Vit C/Folic Acid (Nephro-Jaylin) 1 tab PO DAILY FRANCISCO JAVIER PRN Reason: Protocol Physical Exam - Constitutional Appears: Non-toxic, No Acute Distress - Head Exam Head Exam: NORMAL INSPECTION - Neck Exam Neck exam: Negative for: Lymphadenopathy, Meningismus - Respiratory Exam Respiratory Exam: Decreased Breath Sounds - Cardiovascular Exam Cardiovascular Exam: +S1, +S2 - GI/Abdominal Exam GI & Abdominal Exam: Soft. absent: Tenderness Results - Vital Signs Recent Vital Signs: Last Vital Signs Temp 98.2 F 06/24/16 20:38 Pulse 80 06/24/16 20:38 Resp 18 06/24/16 20:38 BP 147/84 06/24/16 20:38 Pulse Ox - Labs Result Diagrams: 06/25/16 13:22 06/25/16 13:22 Labs: Laboratory Results - last 24 hr 06/24/16 21:31 POC Glucose (mg/dL) 92 Assessment & Plan - Assessment and Plan (Free Text) Plan: Assessment sepsis from healthcare-associated pneumonia on top of non-ST elevation [place] with acute congestive heart failure, clinically improving history of GI bleeding ESRD on HD cornoary artery disease Cerebrovascular accident Gastric cancer Mitral valve prolapse Plan on Doxycycline day 3; blood, urine cx are negative, PCT is only 0.3; CXR reviewed; should complete a 4-7 day course of antibiotics Will continue to monitor clinically
--- NOTE | 2016-06-25 17:41 | CON ---
DATE: 06/25/2016 REASON FOR CONSULTATION: Depressed affect, lethargy. HISTORY OF PRESENTING ILLNESS: An 85-year-old male well known to me from outpatient hemodialysis, re cent inpatient hospital evaluation when the patient was brought in because of altered mental status a nd shortness of breath, thought to have pneumonia. Found to have bilateral pulmonary infiltrates. T he patient is on antibiotics for pneumonia. At this time, patient is now transferred to the [facility] care unit for physical therapy. He is seen in the dialysis unit. He is awake. He complains of being cold. He is also listless. He has a depressed affect. He denies any chest tightness nor palpitations. He denies any shortness of breath at present. He de nies any abdominal pain. He denies any nausea or vomiting. PAST MEDICAL AND SURGICAL HISTORY: NIDDM, hypertension, ESRD, GI bleed, remote history of gastric c ancer, secondary hyperparathyroidism, anemia and dementia. FAMILY HISTORY: Noncontributory. SOCIAL HISTORY: Ex-smoker, no alcohol use and no IV drug abuse. ALLERGIES: No known drug allergies. CURRENT MEDICATIONS: Mucomyst, Aricept 10, losartan 100, doxycycline 100 q. 12, aspirin 81, Flomax 0.4, folic acid 1 mg, i nsulin, Imdur 60, Lipitor 40, Lopressor 50 b.i.d., MiraLAX, Periactin, Protonix, Reglan 5 mg IV q. 6, Renagel, vitamin D and Xopenex. REVIEW OF SYSTEMS: All systems reviewed, pertinent positives are mentioned in the history of present ing illness, rest unremarkable. PHYSICAL EXAMINATION: GENERAL: Elderly male lying in bed. VITAL SIGNS: Blood pressure 143/72, heart rate 73, respiratory rate 16 and temperature 97.8. HEENT: Normocephalic, atraumatic with positive pallor. NECK: Supple, no JVD. LUNGS: Bilateral equal air entry, no rales. CARDIAC: S1, S2, regular rate and rhythm, no murmur and no rub. ABDOMEN: Obese, distended, soft and nontender. Bowel sounds present. EXTREMITIES: No lower extremity edema. INTAKE AND OUTPUT: Not charted. LABORATORY DATA: Hemoglobin 9, potassium 4.2, chloride 96, CO2 26, BUN 51, creatinine 8.2, glucose 1 12, calcium 8.6 and phosphorus 5.2. ASSESSMENT AND PLAN: 1. Recent pneumonia. 2. Lethargy/fatigue. 3. Auv-embrgvx-rswygjdnn diabetes mellitus. 4. Hypertension. 5. End-stage renal disease. 6. History of gastrointestinal bleed. PLAN: 1. Physical therapy. 2. Complete antibiotics. 3. Continue phosphate binders. 4. Dialysis Tuesday, Tuesday and Tuesday. Brinda Ibarra MD cc: [phone] TT: 06/25/2016 17:40:53 Confirmation # [id number] Dictation # [id number]
[2016-06-25] MEDS: Latanoprost 2.5 ml Opht Soln OU SCH (21:11)
[2016-06-26] MEDS: Levalbuterol 0.63 MG/3 ML Inhal Soln UD IH SCH ×4 (01:37→21:15)
[2016-06-26] MEDS: Acetylcysteine 20% Inhal Soln (4ml) IH SCH ×4 (01:37→21:15)
[2016-06-26] MEDS: Pantoprazole 40 mg EC Tab PO SCH (06:04)
[2016-06-26] MEDS: Insulin Detemir 100 units/ml Vial (Levemir) SC SCH ×2 (06:33→17:56)
[2016-06-26] MEDS: Insulin Reg-LOW-Coverage SC SCH ×4 (06:33→21:58)
[2016-06-26 08:29] LABS: ADD MANUAL DIFF? NO
[2016-06-26 08:43] LABS: BASO # 0.07 K/mm3 (0.0-2.0); EOS # 0.3 (0.0-0.7); EOS % 3.9 % (1.5-5.0); GRAN # 3.83 (1.4-6.5); GRAN % 55.7 % (50.0-68.0); HEMATOCRIT 29.9 % (42.0-52.0); LYMPH # 1.7 (1.2-3.4); LYMPH % 24.6 % (22.0-35.0); MEAN CORPUSCULAR HEMOGLOBIN 29.8 pg (25.0-35.0); MEAN CORPUSCULAR HGB CONC 32.4 g/dl (31.0-37.0); MEAN PLATELET VOLUME 10.8 fl (7.0-11.0); MONO % 14.8 % (1.0-6.0); PLATELET COUNT 248 10^3/uL (120.0-450.0); RED CELL DISTRIBUTION WIDTH 17.1 % (11.5-14.5); WHITE BLOOD COUNT 6.9 10^3/ul (4.5-11.0)
[2016-06-26 08:59] LABS: ALB/GLOB RATIO 0.8 (1.1-1.8); ALKALINE PHOSPHATASE 48 U/L (38-133); AST/SGOT 23 U/L (15-59); BILIRUBIN,DIRECT 0.6 mg/dL (0.0-0.4); BILIRUBIN,TOTAL 0.6 mg/dL (0.2-1.3); BLOOD UREA NITROGEN 29 mg/dL (7-21); CALCIUM 8.4 mg/dL (8.4-10.5); CARBON DIOXIDE 25 mmol/L (21-33); CHLORIDE 98 mmol/L (98-107); GFR AFRICAN-AMERICAN 13; GLUCOSE,RANDOM 87 mg/dL (70-110); MAGNESIUM 2.1 mg/dL (1.7-2.2); POTASSIUM 4.5 mmol/L (3.6-5.0); SODIUM 133 mmol/L (132-148); TOTAL PROTEIN 7.6 g/dL (5.8-8.3)
[2016-06-26 09:03] LABS: ALT/SGPT < 6 U/L (7-56)
--- NOTE | 2016-06-26 09:20 | PN ---
DATE: 06/26/2016 SUBJECTIVE: The patient is currently seen in the TCU just having completed breakfast. He is comfort able sitting up in bed. The patient continues on antibiotic therapy for his bilateral pneumonia. He had an uneventful dialysis yesterday. MEDICATIONS: Medication list reviewed. The patient is currently on inhalation therapy, Aricept, [place], doxycycline, Ecotrin, Flomax, folic acid, insulin, Imdur, Lipitor, Lopressor, MiraLax, Nephro- Jaylin, Periactin, Protonix, Reglan, Renagel, vitamin D, eyedrops, and Xopenex. OBJECTIVE: VITAL SIGNS: Blood pressure 143/75, temperature 97.9, respiratory rate is 20 with a pulse of 70. HEENT: Shows him to be normocephalic, atraumatic. Conjunctivae are pale. Sclerae are nonicteric. NECK: Supple, no neck vein distention. CHEST: Clear to auscultation and percussion. No rales, no rhonchi, no wheezing. CARDIOVASCULAR: Shows a regular rate and rhythm with aortic stenosis, mitral regurgitation, tricuspi d regurgitation. No S3, no S4, no rub. ABDOMEN: Soft. Bowel sounds normal. No rebound, no guarding, no masses. EXTREMITIES: Show a left upper extremity AV fistula, positive thrill, positive bruit. No lower extr emity cyanosis, clubbing or edema. LABORATORY DATA AND IMAGING: Predialysis lab work from yesterday showed a white blood cell count of 6.8, hemoglobin 9.1, platelet count is 258,000. Chemistries from yesterday showed a BUN of 51 with a creatinine of 8.2. Electrolytes were normal. Glucose is 112, calcium 8.6 with a phosphorus of 5.2, magnesium 2.1, albumin 3.2. ASSESSMENT: 1. End-stage renal disease. The patient will continue Tuesday, Tuesday, Tuesday dialysis. Next rafael lysis is scheduled for 06/28/2016. 2. Status post altered mental status secondary to sepsis and bilateral pneumonia. The patient's [facility] te blood cell count is now normal. He is afebrile. The patient will complete a course of antibiotic therapy. Cultures to date have been negative. 3. Insulin-dependent diabetes mellitus, currently stable. The patient will continue both long and s hort-acting insulin. 4. History of atherosclerotic heart disease, history of recent myocardial infarction, status post re cent cardiac catheterization showing multivessel coronary artery disease. The patient is being treat ed medically. 5. History of aortic stenosis, mitral regurgitation, tricuspid regurgitation, pulmonary hypertension , all stable. 6. History of gastrointestinal bleeding secondary to gastric ulcer, no active problems. 7. History of anemia secondary to chronic kidney disease. The patient will continue maximum dose of Aranesp on dialysis. 8. History of secondary hyperparathyroidism. The patient will continue renal diet and binder therap y. His phosphorus level is acceptable at 5.2. PLAN: 1. Continue protocol in the TCU with rehabilitation. 2. Continue oral antibiotic therapy for his bilateral pneumonia. 3. Maximize Aranesp dose to bring his hemoglobin up to the 10 range. 4. Continue phosphorus binder therapy and renal diet. 5. Next hemodialysis on 06/28/2016. William Erickson MD cc: [phone] TT: 06/26/2016 09:20:01 Confirmation # [id number] Dictation # [id number] tn
[2016-06-26] MEDS: Multivitamin Vitamin B Complex (Nephro-Vite) Tab PO SCH (10:33)
[2016-06-26] MEDS: POLYETHYLENE GLYCOL 3350 17 GM/Dose PACKET PO SCH ×3 (10:33→18:01)
--- NOTE | 2016-06-26 15:55 | CP.PCM.PN ---
Subjective - Date & Time of Evaluation Date of Evaluation: 06/26/16 Time of Evaluation: 11:25 - Subjective Subjective: Comfortable in bed, not in distress, afebrile overnight, no SOB, no nausea, no chest pain, no diarrhea. Objective - Vital Signs/Intake and Output Vital Signs (last 24 hours): Temp Pulse Resp BP Pulse Ox 97.9 F 70 20 143/75 96 06/26/16 06:00 06/26/16 06:00 06/26/16 06:00 06/26/16 06:00 06/26/16 06:00 - Medications Medications: Current Medications Acetylcysteine (Acetylcysteine 20%) 4 ml IH [id number] FRANCISCO JAVIER PRN Reason: Protocol Last Admin: 06/26/16 01:37 Dose: Not Given Aspirin (Ecotrin) 81 mg PO DAILY FRANCISCO JAVIER PRN Reason: Protocol Last Admin: 06/25/16 10:13 Dose: Not Given Atorvastatin Calcium (Lipitor) 40 mg PO DIN FRANCISCO JAVIER PRN Reason: Protocol Last Admin: 06/25/16 17:40 Dose: 40 mg Cholecalciferol (Vitamin D) 2,000 iu PO DAILY FRANCISCO JAVIER PRN Reason: Protocol Last Admin: 06/25/16 10:18 Dose: 2,000 iu Cyproheptadine HCl (Periactin) 4 mg PO BID FRANCISCO JAVIER Last Admin: 06/25/16 17:44 Dose: 4 mg Donepezil HCl (Aricept) 10 mg PO HS FRANCISCO JAVIER PRN Reason: Protocol Last Admin: 06/25/16 21:10 Dose: 10 mg Folic Acid (Folic Acid) 1 mg PO DAILY FRANCISCO JAVIER PRN Reason: Protocol Last Admin: 06/25/16 10:14 Dose: 1 mg Doxycycline Hyclate 100 mg/ (Sodium Chloride) 100 mls @ 100 mls/hr IVPB Q12 FRANCISCO JAVIER Last Admin: 06/25/16 22:37 Dose: Not Given Insulin Detemir (Levemir) 5 unit SC ACBD FRANCISCO JAVIER PRN Reason: Protocol Last Admin: 06/26/16 06:33 Dose: Not Given Insulin Human Regular (Humulin R Low) 0 units SC ACHS FRANCISCO JAVIER PRN Reason: Protocol Last Admin: 06/26/16 06:33 Dose: Not Given Isosorbide Mononitrate (Imdur) 60 mg PO QAM FRANCISCO JAVIER PRN Reason: Protocol Last Admin: 06/25/16 14:14 Dose: Not Given Latanoprost (Xalatan Opht) 1 ml OU HS FRANCISCO JAVIER PRN Reason: Protocol Last Admin: 06/25/16 21:11 Dose: 1 ml Levalbuterol HCl (Xopenex) 0.63 mg IH [id number] FRANCISCO JAVIER PRN Reason: Protocol Last Admin: 06/26/16 01:37 Dose: Not Given Losartan Potassium (Cozaar) 100 mg PO DAILY FRANCISCO JAVIER PRN Reason: Protocol Last Admin: 06/25/16 10:13 Dose: 100 mg Metoclopramide HCl (Reglan) 5 mg IVP Q6 FRANCISCO JAVIER PRN Reason: Protocol Last Admin: 06/26/16 06:21 Dose: 5 mg Metoprolol Tartrate (Lopressor) 50 mg PO 0800,1800 FRANCISCO JAVIER PRN Reason: Protocol Last Admin: 06/25/16 17:42 Dose: 50 mg Pantoprazole Sodium (Protonix Ec Tab) 40 mg PO 0630 FRANCISCO JAVIER PRN Reason: Protocol Last Admin: 06/26/16 06:04 Dose: 40 mg Polyethylene Glycol (Miralax) 17 gm PO TID FRANCISCO JAVIER PRN Reason: Protocol Last Admin: 06/25/16 17:43 Dose: Not Given Sevelamer HCl (Renagel) 800 mg PO WM FRANCISCO JAVIER PRN Reason: Protocol Last Admin: 06/25/16 17:46 Dose: 800 mg Tamsulosin HCl (Flomax) 0.4 mg PO DAILY FRANCISCO JAVIER PRN Reason: Protocol Last Admin: 06/25/16 17:39 Dose: 0.4 mg Vitamin B Complex/Vit C/Folic Acid (Nephro-Jaylin) 1 tab PO DAILY FRANCISCO JAVIER PRN Reason: Protocol Last Admin: 06/25/16 10:15 Dose: 1 tab - Labs Labs: 06/25/16 13:22 06/25/16 13:22 - Constitutional Appears: Non-toxic, No Acute Distress - Head Exam Head Exam: NORMAL INSPECTION - ENT Exam ENT Exam: Mucous Membranes Moist - Neck Exam Neck Exam: absent: Lymphadenopathy, Meningismus - Respiratory Exam Respiratory Exam: Decreased Breath Sounds - Cardiovascular Exam Cardiovascular Exam: +S1, +S2 - GI/Abdominal Exam GI & Abdominal Exam: Soft. absent: Tenderness Assessment and Plan - Assessment and Plan (Free Text) Plan: Assessment sepsis from healthcare-associated pneumonia on top of non-ST elevation [place] with acute congestive heart failure, clinically improving history of GI bleeding ESRD on HD cornoary artery disease Cerebrovascular accident Gastric cancer Mitral valve prolapse Plan on Doxycycline day 4; blood, urine cx are negative, PCT is only 0.3; CXR reviewed; should complete a 4-7 day course of antibiotics Will continue to monitor clinically
[2016-06-26] MEDS: Latanoprost 2.5 ml Opht Soln OU SCH (21:00)
[2016-06-27] MEDS: Acetylcysteine 20% Inhal Soln (4ml) IH SCH ×4 (02:40→21:30)
[2016-06-27] MEDS: Levalbuterol 0.63 MG/3 ML Inhal Soln UD IH SCH ×4 (02:40→21:30)
[2016-06-27] MEDS: Pantoprazole 40 mg EC Tab PO SCH (05:37)
[2016-06-27] MEDS: Insulin Detemir 100 units/ml Vial (Levemir) SC SCH ×2 (06:31→17:37)
[2016-06-27] MEDS: Insulin Reg-LOW-Coverage SC SCH ×4 (06:31→22:00)
--- NOTE | 2016-06-27 09:24 | PN ---
DATE: 06/27/2016 The patient is in the transitional care unit. He is admitted with a history of coronary artery disease, abnormal troponin. He was treated for GI bleeding, anemia, altered mental state. He is seen this morning. PHYSICAL EXAMINATION: GENERAL: He is awake and alert, answers all the commands. VITAL SIGNS: His pulse is 76, blood pressure 155/79. NECK: The thyroid is not enlarged. No lymphadenopathy in the neck. LUNGS: Trachea central. Breath sounds vesicular. No adventitious sounds clinically. HEART: Normal sinus rhythm. S1 and S2 present. No murmurs. ABDOMEN: Soft. Liver, spleen not palpable. CENTRAL NERVOUS SYSTEM: He does not seem to have any motor dysfunction at this time, but he has difficulty in walking. MEDICATIONS: He is on respiratory treatment. The patient is on Aricept 10 mg daily. The patient is on doxycycline 100 mg Q12 hours, Aspirin 81 mg daily, Flomax 0.4 mg, insulin coverage for diabetes. The patient is on isosorbide mononitrate 60 mg daily. The patient is on Aranesp 100 mcg IV once every week for renal insufficiency and anemia. BLOOD WORK: The hemoglobin is 9.7. His chemistry: The blood sugar is 127 today, but it ranges between 228 and 107. His BUN is 29, creatinine is 5.2, his GFR is 13. He is under care of the renal service for renal failure. We will continue current management in the [facility] and follow up with his physical therapy and rehabilitation for deconditioning. Vijay Anton MD cc: [phone] TT: 06/27/2016 09:23:28 Confirmation # [id number] Dictation # [id number] MTDD
[2016-06-27] MEDS: Multivitamin Vitamin B Complex (Nephro-Vite) Tab PO SCH (09:59)
[2016-06-27] MEDS: POLYETHYLENE GLYCOL 3350 17 GM/Dose PACKET PO SCH ×3 (10:13→17:40)
--- NOTE | 2016-06-27 10:45 | PN ---
DATE: 06/27/2016 The patient is in bed. PHYSICAL EXAMINATION: VITAL SIGNS: Temperature is 98, blood pressure is 150/70. HEENT: Unremarkable. NECK: Supple. LUNGS: Have decreased breath sounds. HEART: Normal S1, S2. ABDOMEN: Soft, nontender. LABORATORY DATA: Reveals a white count of 6.9, hemoglobin of 9, platelets of 249. Chemistries revea l the BUN of 29, creatinine of 5.2. ASSESSMENT AND PLAN: This is an 85-year-old with sepsis with healthcare-associated pneumonia on top of non-ST elevation myocardial infarction and acute congestive heart failure with a history of gastro intestinal bleeding and end-stage renal disease on hemodialysis and currently on doxycycline day #5. We will discontinue doxycycline. No further antibiotics; however, the patient is at risk for develo ping nosocomial infections. Magdy Diego MD cc: [phone] TT: 06/27/2016 10:44:50 Confirmation # [id number] Dictation # [id number] mn
[2016-06-27] MEDS: Latanoprost 2.5 ml Opht Soln OU SCH (21:17)
[2016-06-28] MEDS: Levalbuterol 0.63 MG/3 ML Inhal Soln UD IH SCH ×4 (02:10→21:44)
[2016-06-28] MEDS: Acetylcysteine 20% Inhal Soln (4ml) IH SCH ×4 (02:10→21:44)
[2016-06-28] MEDS: Pantoprazole 40 mg EC Tab PO SCH (05:34)
[2016-06-28] MEDS ORDERED: DARBEPOETIN ALFA 40 MCG IV SCH (06:00)
[2016-06-28] MEDS: Insulin Reg-LOW-Coverage SC SCH ×4 (06:30→22:24)
--- NOTE | 2016-06-28 07:51 | PN ---
DATE: 06/26/2016 The patient is seen lying in the bed in room 318, bed 1. The patient is being worked up on the physical therapy part by the bedside exercises for limbic strengthening. The patient is alert, awake, responsive. Does not appear to be in any distress. Overnight nurse's notes were reviewed, without any adverse events documented. VITAL SIGNS: T-max 97.9, heart rate 66-70, blood pressure ranging from 142/72 to 143/75, respirations 20, O2 sat 96%. HEAD EXAMINATION: Normocephalic, atraumatic. HENT EXAMINATION: Shows pinkish, pale conjunctivae, anicteric sclerae. No oropharyngeal lesion. No neck rigidity. Soft carotid bruit. CHEST EXAMINATION: Kyphosis. LUNG EXAMINATION: Shows decreased rhonchi, decrease creps, decreased crackles which were present at the time of admission, but now significantly resolved and decreased. CARDIOVASCULAR EXAMINATION: Shows S1, S2, regular rhythm. Questionable soft systolic murmur right second intercostal space, left sternal border. ABDOMEN: Soft, positive bowel sounds. GENITALIA: Male. RECTAL EXAMINATION: Deferred. LOWER EXTREMITY: Shows no pitting edema, no calf tenderness, no Homans sign. MOTOR: Strength is 5/5 in upper and lower extremity. GAIT EXAMINATION: Not tested. MUSCULOSKELETAL EXAMINATION: Shows a body mass index of 23. Positive left upper extremity AV fistula with positive thrill. PSYCHIATRIC EXAMINATION: Negative for anxiety, negative for depression. Negative for suicidal or homicidal ideation. Negative for auditory or visual hallucinations. DIAGNOSTICS: Reviewed. Hemoglobin and hematocrit is ranging between 9.1 and 27.5 to 9.7 and 29.9, platelet 248,000 to 258,000. WBC between 6.8 and 6.9. Sodium 135 and 133. Potassium ranging between 4.5. BUN and creatinine has been elevated. Calcium is normal. Phosphorus is slightly elevated. Magnesium is within normal limits. LFTs are normal. IMPRESSION AND PLAN: 1. Deconditioning. 2. Gait dysfunction. 3. Systemic inflammatory response syndrome with possible sepsis, with multilobar healthcare-associated pneumonia. 4. Non-ST elevation myocardial infarction with elevated troponin. 5. Tachycardia 6. Chron...Anemia of chronic disease, chronic kidney disease, normocytic anemia. 7. Secondary hyperparathyroidism with hyperphosphatemia. 8. Insulin-requiring type 1 diabetes mellitus. 9. Hypertension. 10. Sepsis secondary to multilobar healthcare-associated pneumonia with non-ST elevation myocardial infarction. 11. Dementia. 12. Hypertension. 13. Prostatic hypertrophy. 14. Insulin requiring type 1 diabetes mellitus. 15. Dyslipidemia. 16. History of constipation. 17. Poor appetite and anorexia. 18. Diabetic gastroparesis. 19. Hypovitaminosis D. 1. Gait dysfunction. 2. Deconditioning. 3. Poor compliance and noncompliance with medication. 4. Hypertension. 5. Tachycardia. 6. Systemic inflammatory response syndrome with possible sepsis with healthcare -associated multilobar pneumonia. 7. Non-ST elevation myocardial infarction. 8. End-stage renal disease, hemodialysis dependent. 9. Insulin-requiring diabetes mellitus. 10. Dementia. 11. Hypertension. 12. Prostatitic hypertrophy. 13. Insulin-requiring diabetes mellitus. 14. Dyslipidemia. 15. Constipation. 16. Diabetic gastroparesis. 17. Hypovitaminosis D. 18. Deconditioning. 19. Feeding and eating dysfunction. 1. Systemic inflammatory response syndrome with possible sepsis from bilateral healthcare-associated multilobar pneumonia. 2. Acute jnt-YE-ijlfjmsll myocardial infarction with elevated troponin. 3. Tachycardia. 4. Transient uncontrolled hypertension. 5. Leukocytosis with granulocytosis. 6. Normocytic anemia. 7. Lactic acidosis. 8. End-stage renal disease, hemodialysis dependent. 9. Insulin-requiring diabetes mellitus. 10. Acute dps-KL-uemkipmxv myocardial infarction with elevated troponin. 11. Proteinuria, glycosuria, microscopic hematuria. 12. History of dementia. 1. Systemic inflammatory response syndrome with possible sepsis with healthcare -associated bilateral multilobar pneumonia. 2. Acute non-ST elevation myocardial infarction with elevated troponin. 3. Bifascicular block, right bundle branch block and left anterior hemiblock and first degree AV block. 4. Hypertension. 5. Tachycardia. 6. Questionable feeding dysfunction versus noncompliance and poor compliance with medication and diet. 7. Leukocytosis with granulocytosis. 8. Normocytic anemia. 9. Lactic acidosis. 10. Insulin-requiring diabetes mellitus. 11. Proteinuria, glycosuria, microscopic hematuria. 12. Questionable lateral coronary ischemic changes on the EKG. 13. End-stage renal disease, hemodialysis dependent 3 times a week via the left upper extremity arteriovenous fistula. 14. Dementia. 15. Deconditioning 16. Gait dysfunction. 17. Insulin-requiring diabetes mellitus. 18. Coronary artery disease with angioplasty. 19. Prostatic hypertrophy. 20. Insulin-requiring diabetes mellitus. 21. Dyslipidemia. 22. Constipation. 23. Secondary hyperparathyroidism. 24. Hypovitaminosis D. 1. Questionable and possible sepsis with bilateral community-acquired extensive pneumonia and interstitial pneumonia. 2. Uncontrolled hypertension. 3. Tachycardia. 4. Dementia. 5. Poor compliance with diet and medication. 6. Leukocytosis with granulocytosis. 7. Normocytic anemia. 8. Lactic acidosis. 9. Nonhemolyzed hyperkalemia. 10. End-stage renal disease, hemodialysis dependent. 11. Increased anion gap metabolic acidosis. 12. Hyperphosphatemia. 13. Questionable acute cuf-SH-vfslalgyg myocardial infarction with elevated troponin and lateral coronary ischemic changes on the EKG in lead I, aVL, and V3 -V6. 14. Bifascicular block with left anterior hemiblock and right bundle branch block. 15. Elevated BNP, probably secondary to volume overload. 16. Possible acute dby-UN-rkvkhdqct myocardial infarction with elevated troponin and lateral ischemic changes on the EKG. 17. Proteinuria, glycosuria, microscopic hematuria. 18. Insulin-requiring diabetes mellitus. 19. Hyperphosphatemia. 20. Granulocytosis. 21. Extensive bilateral interstitial pneumonia and infiltrate with small bilateral pleural effusion. 22. Extensive coronary artery calcification. 23. Right inguinal hernia, nonobstructed 24. End-stage renal disease, hemodialysis dependent 3 times a week via left upper extremity arteriovenous fistula. 25. History of dementia. 26. Leukocytosis with granulocytosis and normocytic anemia. 27. Lactic acidosis, increased anion gap metabolic acidosis and lactic acidosis. 28. Proteinuria, glycosuria, microscopic hematuria. 29. Possible toxic metabolic encephalopathy secondary to sepsis. 30. Deconditioning. 31. History of diabetic gastroparesis, history of constipation, history of poor compliance, history of hypovitaminosis D, history of prostate hypertrophy, history of constipation, history of insulin-requiring diabetes mellitus, history of dyslipidemia, history of angina, history of diabetic gastroparesis. 1. Possible sepsis with bilateral community-acquired pneumonia and infiltrate. 2. Uncontrolled hypertension with tachycardia. 3. Leukocytosis with granulocytosis. 4. Sepsis with extensive bilateral community-acquired pneumonia and interstitial pneumonia. 5. Small bilateral pleural effusions. 6. Extensive coronary artery calcification. 7. Nonobstructing right inguinal hernia. 8. Dementia. 9. Tachycardia. 10. Leukocytosis with granulocytosis and normocytic anemia. 11. Lactic acidosis. 12. End-stage renal disease, hemodialysis dependent. 13. Increased anion gap metabolic acidosis. 14. Insulin requiring diabetes mellitus. 15. Indeterminate troponin versus questionable non-ST elevation myocardial infarction with elevated troponin of 0.12 in an end-stage renal disease patient. 16. Elevated BNP, probably secondary to volume overload. 17. Proteinuria, glycosuria, microscopic hematuria. 18. Left anterior hemiblock. 19. Right bundle branch block. 20. Bifascicular block. 21. End-stage renal disease, hemodialysis dependent via the left upper extremity arteriovenous fistula. 22. Possible toxic metabolic encephalopathy secondary to sepsis. 23. Non-hemolyzed mild hyperkalemia. 24. Deconditioning. 25. History of diabetic gastroparesis, history of constipation, history of noncompliance, history of hypovitaminosis D, history of prostate hypertrophy, history of constipation, history of insulin-requiring diabetes mellitus, history of dyslipidemia, history of angina, history of diabetic gastroparesis. PLAN: At this time, the patient is to be continued on the transitional care unit with physical therapy, occupational therapy, gait training, ambulation training, and ambulation therapy. The patient has been ordered out of bed to chair. The patient's current consultations: 1. Nephrology. 2. Cardiology. 3. Infectious disease. CURRENT MEDICATIONS: 1. Mucomyst nebulizer 20% as 4 mL every 6 hours. 2. The patient received Aranesp 100 mcg on , Aricept 10 mg daily, Cozaar 100 mg daily, Ecotrin 81 mg daily, Flomax 0.4 mg daily. 3. Folic acid 1 mg daily. 4. Regular insulin low dose sliding scale coverage. 5. Imdur 60 mg daily. 6. Levemir 5 units a.c. breakfast, dinner. 7. Lipitor 40 mg daily. 8. Lopressor 50 mg twice a day, MiraLax 17 g 3 times a day. 9. Nephro-Jaylin 1 tablet daily. 10. Periactin 4 mg twice a day, Protonix 40 mg daily, Reglan 5 mg IV q. 6, Renagel 800 mg with meals. 11. Vibramycin 100 mg IV q. 12, Vitamin D 2000 international units daily, Xalatan eyedrops 0.005% one drop OU at bedtime. 12. Xopenex nebulizer 0.63 mg every 6 hours. Chest PT, renal diet, out of bed to chair. Fingerstick blood sugar, SAMAN stockings, occupational therapy, physical therapy, ambulation therapy, gait training noted ordered. Dictated and electronically signed, not read. Zeyad Nazario MD cc: [id number] TT: 06/26/2016 09:44:01 Confirmation # [id number] Dictation # [id number] 06/28/2016 06:51:01 BREA
[2016-06-28] MEDS: Insulin Detemir 100 units/ml Vial (Levemir) SC SCH ×2 (10:29→18:44)
[2016-06-28] MEDS: Multivitamin Vitamin B Complex (Nephro-Vite) Tab PO SCH (10:30)
[2016-06-28] MEDS: POLYETHYLENE GLYCOL 3350 17 GM/Dose PACKET PO SCH ×3 (10:30→18:46)
--- NOTE | 2016-06-28 12:26 | PN ---
DATE: 06/28/2016 SUBJECTIVE: The patient is seen in room 318, bed 1. The patient's is at bedside. The patient is in the process of being cleaned by the PCP. The patient is lying in the bed. The patient completed IV antibiotics as per infectious disease recommendation. Overnight nurse's notes were reviewed. The patient's IV access was poor. Hep-Lock removed. PHYSICAL EXAMINATION: VITAL SIGNS: T-max afebrile, heart rate ____. Blood pressure 156/76, 132/58, 136/64, 159/79. Respiration 18, O2 sat 97%. GENERAL: The patient is seen lying in the bed. HEAD: Normocephalic, atraumatic. EENT: Shows pinkish, pale conjunctivae; anicteric sclerae. No oropharyngeal lesion. NECK: No neck rigidity. Soft carotid bruit. CHEST: Kyphosis. LUNGS: Shows no rales, crackles, or wheezing, positive rhonchi upper lung chaney anteriorly. CARDIOVASCULAR: S1, S2, ____ rhythm. Questionable soft systolic murmur right second intercostal space, left sternal border. ABDOMEN: Soft, positive bowel sounds. GENITALIA: Male. RECTAL: Deferred. EXTREMITIES: Shows no pitting edema, no calf tenderness, no Homans' sign. Positive left upper extremity AV fistula. GENITALIA: Male. RECTAL: Deferred. GAIT: Not tested. VASCULAR: Palpable pulses. Cranial nerves II-XII limited. MUSCULOSKELETAL: Shows a body mass index of greater than 23. DIAGNOSTICS: None from today. Fingerstick blood sugar 139, 199, 194, 106, 101 , 127, 157. IMPRESSION: 1. Deconditioning. 2. Gait dysfunction. 3. Systemic inflammatory response syndrome with possible sepsis with multilobar healthcare-associated pneumonia. 4. Acute rda-AH-yeejxglds myocardial infarction with elevated troponin. 5. End-stage renal disease, hemodialysis dependent 3 times a week. 6. Dementia. 7. Insulin-requiring type 1 diabetes mellitus. 8. Diabetic neuropathy. 9. Sepsis secondary to healthcare-associated multilobar pneumonia with acute uzn-HK-brblimyou myocardial infarction. 10. Hypertension. 10. Normocytic anemia. 11. End-stage renal disease, hemodialysis dependent. 12. Dementia. 13. Hypertension. 14. Questionable anorexia. 15. Prostatic hypertrophy. 16. Deconditioning. 1. Deconditioning. 2. Gait dysfunction. 3. Systemic inflammatory response syndrome with possible sepsis, with multilobar healthcare-associated pneumonia. 4. Non-ST elevation myocardial infarction with elevated troponin. 5. Tachycardia 6. Chron...Anemia of chronic disease, chronic kidney disease, normocytic anemia. 7. Secondary hyperparathyroidism with hyperphosphatemia. 8. Insulin-requiring type 1 diabetes mellitus. 9. Hypertension. 10. Sepsis secondary to multilobar healthcare-associated pneumonia with non-ST elevation myocardial infarction. 11. Dementia. 12. Hypertension. 13. Prostatic hypertrophy. 14. Insulin requiring type 1 diabetes mellitus. 15. Dyslipidemia. 16. History of constipation. 17. Poor appetite and anorexia. 18. Diabetic gastroparesis. 19. Hypovitaminosis D. 1. Gait dysfunction. 2. Deconditioning. 3. Poor compliance and noncompliance with medication. 4. Hypertension. 5. Tachycardia. 6. Systemic inflammatory response syndrome with possible sepsis with healthcare -associated multilobar pneumonia. 7. Non-ST elevation myocardial infarction. 8. End-stage renal disease, hemodialysis dependent. 9. Insulin-requiring diabetes mellitus. 10. Dementia. 11. Hypertension. 12. Prostatitic hypertrophy. 13. Insulin-requiring diabetes mellitus. 14. Dyslipidemia. 15. Constipation. 16. Diabetic gastroparesis. 17. Hypovitaminosis D. 18. Deconditioning. 19. Feeding and eating dysfunction. 1. Systemic inflammatory response syndrome with possible sepsis from bilateral healthcare-associated multilobar pneumonia. 2. Acute dfu-NS-rkowcmbir myocardial infarction with elevated troponin. 3. Tachycardia. 4. Transient uncontrolled hypertension. 5. Leukocytosis with granulocytosis. 6. Normocytic anemia. 7. Lactic acidosis. 8. End-stage renal disease, hemodialysis dependent. 9. Insulin-requiring diabetes mellitus. 10. Acute tyz-HV-gnzihgavm myocardial infarction with elevated troponin. 11. Proteinuria, glycosuria, microscopic hematuria. 12. History of dementia. 1. Systemic inflammatory response syndrome with possible sepsis with healthcare -associated bilateral multilobar pneumonia. 2. Acute non-ST elevation myocardial infarction with elevated troponin. 3. Bifascicular block, right bundle branch block and left anterior hemiblock and first degree AV block. 4. Hypertension. 5. Tachycardia. 6. Questionable feeding dysfunction versus noncompliance and poor compliance with medication and diet. 7. Leukocytosis with granulocytosis. 8. Normocytic anemia. 9. Lactic acidosis. 10. Insulin-requiring diabetes mellitus. 11. Proteinuria, glycosuria, microscopic hematuria. 12. Questionable lateral coronary ischemic changes on the EKG. 13. End-stage renal disease, hemodialysis dependent 3 times a week via the left upper extremity arteriovenous fistula. 14. Dementia. 15. Deconditioning 16. Gait dysfunction. 17. Insulin-requiring diabetes mellitus. 18. Coronary artery disease with angioplasty. 19. Prostatic hypertrophy. 20. Insulin-requiring diabetes mellitus. 21. Dyslipidemia. 22. Constipation. 23. Secondary hyperparathyroidism. 24. Hypovitaminosis D. 1. Questionable and possible sepsis with bilateral community-acquired extensive pneumonia and interstitial pneumonia. 2. Uncontrolled hypertension. 3. Tachycardia. 4. Dementia. 5. Poor compliance with diet and medication. 6. Leukocytosis with granulocytosis. 7. Normocytic anemia. 8. Lactic acidosis. 9. Nonhemolyzed hyperkalemia. 10. End-stage renal disease, hemodialysis dependent. 11. Increased anion gap metabolic acidosis. 12. Hyperphosphatemia. 13. Questionable acute osl-ZB-mhtaurrgz myocardial infarction with elevated troponin and lateral coronary ischemic changes on the EKG in lead I, aVL, and V3 -V6. 14. Bifascicular block with left anterior hemiblock and right bundle branch block. 15. Elevated BNP, probably secondary to volume overload. 16. Possible acute mzh-YH-yemqgysyq myocardial infarction with elevated troponin and lateral ischemic changes on the EKG. 17. Proteinuria, glycosuria, microscopic hematuria. 18. Insulin-requiring diabetes mellitus. 19. Hyperphosphatemia. 20. Granulocytosis. 21. Extensive bilateral interstitial pneumonia and infiltrate with small bilateral pleural effusion. 22. Extensive coronary artery calcification. 23. Right inguinal hernia, nonobstructed 24. End-stage renal disease, hemodialysis dependent 3 times a week via left upper extremity arteriovenous fistula. 25. History of dementia. 26. Leukocytosis with granulocytosis and normocytic anemia. 27. Lactic acidosis, increased anion gap metabolic acidosis and lactic acidosis. 28. Proteinuria, glycosuria, microscopic hematuria. 29. Possible toxic metabolic encephalopathy secondary to sepsis. 30. Deconditioning. 31. History of diabetic gastroparesis, history of constipation, history of poor compliance, history of hypovitaminosis D, history of prostate hypertrophy, history of constipation, history of insulin-requiring diabetes mellitus, history of dyslipidemia, history of angina, history of diabetic gastroparesis. 1. Possible sepsis with bilateral community-acquired pneumonia and infiltrate. 2. Uncontrolled hypertension with tachycardia. 3. Leukocytosis with granulocytosis. 4. Sepsis with extensive bilateral community-acquired pneumonia and interstitial pneumonia. 5. Small bilateral pleural effusions. 6. Extensive coronary artery calcification. 7. Nonobstructing right inguinal hernia. 8. Dementia. 9. Tachycardia. 10. Leukocytosis with granulocytosis and normocytic anemia. 11. Lactic acidosis. 12. End-stage renal disease, hemodialysis dependent. 13. Increased anion gap metabolic acidosis. 14. Insulin requiring diabetes mellitus. 15. Indeterminate troponin versus questionable non-ST elevation myocardial infarction with elevated troponin of 0.12 in an end-stage renal disease patient. 16. Elevated BNP, probably secondary to volume overload. 17. Proteinuria, glycosuria, microscopic hematuria. 18. Left anterior hemiblock. 19. Right bundle branch block. 20. Bifascicular block. 21. End-stage renal disease, hemodialysis dependent via the left upper extremity arteriovenous fistula. 22. Possible toxic metabolic encephalopathy secondary to sepsis. 23. Non-hemolyzed mild hyperkalemia. 24. Deconditioning. 25. History of diabetic gastroparesis, history of constipation, history of noncompliance, history of hypovitaminosis D, history of prostate hypertrophy, history of constipation, history of insulin-requiring diabetes mellitus, history of dyslipidemia, history of angina, history of diabetic gastroparesis. PLAN: At this time, patient is to be continued on the transitional care unit. The patient has been ordered out of bed to chair. The patient has been seen by occupational therapist on 06/25/2016. Their recommendation is to continue occupational therapy, home with services. The patient seen by physical therapist. Their recommendation is continue PT, possible subacute rehabilitation. CURRENT MEDICATIONS: 1. Mucomyst nebulizer 20% 4 mL every 5 hours with Xopenex nebulizer 0.63 mg every 6 hours. 2. Aranesp 100 mcg was to be given today from dialysis. 3. Aricept 10 mg at bedtime. 4. Cozaar 100 mg daily. 5. Ecotrin 81 mg daily. 6. Flomax 0.4 mg daily. 7. Folic acid 1 mg daily. 8. Humalog low dose sliding scale coverage a.c. and at bedtime. 9. Imdur 60 mg daily. 10. Levemir 5 units a.c. breakfast and dinner. 11. Lipitor 40 mg daily. 12. Imdur 60 mg daily. 13. Levemir 5 units with breakfast and dinner. 14. Lipitor 40 mg daily. 15. Lopressor 50 mg twice a day. 16. MiraLax 17 g 3 times a day. 17. Nephro-Jaylin 1 tablet daily. 18. Periactin 4 mg twice a day. 19. Protonix 40 mg daily. 20. Renagel 800 mg with meals. 21. Vitamin D3 2000 international units daily. 22. Xalatan eyedrops both eyes at bedtime. Chest PT, out of bed, SMAAN stockings. Continuation of the dialysis ordered. The patient is to continue on the TCU stay until approved number of days. I have again discussed with the patient's regarding a gastrostomy tube placement because of patient's decreased p.o. intake and noncompliance with medication and food. The patient's has not yet decided about gastrostomy and a PEG tube placement. This has been discussed multiple times with the patient's during this and a previous hospitalization, but the patient's has not decided about having a gastrostomy tube placement, but persistently and recurrently always complains of patient's poor compliance with medications and diet and food. All the options, details, indications, consequences and risks discussed with the patient's in layman's language. All questions and concerns answered. Dictated and electronically signed; not read. Zeyad Nazario MD cc: [id number] TT: 06/28/2016 12:01:37 Confirmation # [id number] Dictation # [id number] victor manuel GUIDRY
--- NOTE | 2016-06-28 12:31 | CP.PCM.CON ---
<Mabel Almazan - Last Filed: 06/28/16 15:17> History of Present Illness - History of Present Illness History of Present Illness: 85 year old male patient with PMHx of ESRD (on HD), coronary artery disease, Cerebrovascular accident, Gastric cancer, Mitral valve prolapse, DM and healthcare associated pneumonia was seen at bedside this morning after request for Podiatry consultation. Patient presents with pain to Right heel as well as painful, elongated, dystrophic toenails x10. Patient complains of pain to the toenails. Patient was resting in chair at the time of visit and denies of any acute overnight distress. Patient denies of any recent trauma to the right heel. Patient denies of any N/V/F/C or SOB today Past Patient History - Infectious Disease Hx of Infectious Diseases: None - Tetanus Immunizations Tetanus Immunization: Unknown - Past Medical History & Family History Past Medical History?: Yes Past Family History: Reviewed and not pertinent - Past Social History Smoking Status: Former Smoker Alcohol: None Drugs: Denies Home Situation {Lives}: With Family - CARDIAC Hx Pacemaker: No - PULMONARY Hx Respiratory Disorders: Yes Hx Pneumonia: Yes - NEUROLOGICAL HX Cerebrovascular Accident: Yes - HEENT Hx HEENT Problems: Yes (WEARS RX GLASSES) Hx Epistaxis: Yes - RENAL Hx Dialysis: Yes ( Schedule) Hx Renal Failure: Yes (ESRD) - ENDOCRINE/METABOLIC Hx Diabetes Mellitus Type 2: Yes - HEMATOLOGICAL/ONCOLOGICAL Hx Cancer: Yes (Gastric) - INTEGUMENTARY Hx Dermatological Problems: No - MUSCULOSKELETAL/RHEUMATOLOGICAL Hx Falls: Yes (past) - GASTROINTESTINAL Hx Gastrointestinal Disorders: Yes (diverticulitis/reflux) - GENITOURINARY/GYNECOLOGICAL Hx Genitourinary Disorders: (pt voids) Hx Reproductive Disorders: Yes - PSYCHIATRIC Hx Emotional Abuse: No Hx Physical Abuse: No - SURGICAL HISTORY Other/Comment: AV shunt placement. - ANESTHESIA Hx Anesthesia Reactions: No Hx Malignant Hyperthermia: No Meds Allergies/Adverse Reactions: Allergies Allergy/AdvReac Type Severity Reaction Status Date / Time No Known Allergies Allergy Verified 06/24/16 18:10 - Medications Medications: Current Medications Acetylcysteine (Acetylcysteine 20%) 4 ml IH [id number] FRANCISCO JAVIER PRN Reason: Protocol Last Admin: 06/28/16 07:15 Dose: Not Given Aspirin (Ecotrin) 81 mg PO DAILY FRANCISCO JAVIER PRN Reason: Protocol Last Admin: 06/28/16 10:26 Dose: 81 mg Atorvastatin Calcium (Lipitor) 40 mg PO DIN FRANCISCO JAVIER PRN Reason: Protocol Last Admin: 06/27/16 17:38 Dose: 40 mg Cholecalciferol (Vitamin D) 2,000 iu PO DAILY FRANCISCO JAVIER PRN Reason: Protocol Last Admin: 06/28/16 10:31 Dose: 2,000 iu Cyproheptadine HCl (Periactin) 4 mg PO BID FRANCISCO JAVIER Last Admin: 06/28/16 10:30 Dose: 4 mg Darbepoetin Julio (Aranesp (Renal)) 100 mcg IV ONCE FRANCISCO JAVIER Donepezil HCl (Aricept) 10 mg PO HS FRANCISCO JAVIER PRN Reason: Protocol Last Admin: 06/27/16 21:17 Dose: 10 mg Folic Acid (Folic Acid) 1 mg PO DAILY FRANCISCO JAVIER PRN Reason: Protocol Last Admin: 06/28/16 10:27 Dose: 1 mg Insulin Detemir (Levemir) 5 unit SC ACBD FRANCISCO JAVIER PRN Reason: Protocol Last Admin: 06/28/16 10:29 Dose: 5 unit Insulin Human Regular (Humulin R Low) 0 units SC ACHS FRANCISCO JAVIER PRN Reason: Protocol Last Admin: 06/28/16 06:30 Dose: Not Given Isosorbide Mononitrate (Imdur) 60 mg PO QAM FRANCISCO JAVIER PRN Reason: Protocol Last Admin: 06/28/16 10:27 Dose: 60 mg Latanoprost (Xalatan Opht) 1 ml OU HS FRANCISCO JAVIER PRN Reason: Protocol Last Admin: 06/27/16 21:17 Dose: 1 ml Levalbuterol HCl (Xopenex) 0.63 mg IH [id number] FRANCISCO JAVIER PRN Reason: Protocol Last Admin: 06/28/16 07:15 Dose: Not Given Losartan Potassium (Cozaar) 100 mg PO DAILY FRANCISCO JAVIER PRN Reason: Protocol Last Admin: 06/28/16 10:26 Dose: 100 mg Metoprolol Tartrate (Lopressor) 50 mg PO 0800,1800 FRANCISCO JAVIER PRN Reason: Protocol Last Admin: 06/28/16 10:29 Dose: 50 mg Pantoprazole Sodium (Protonix Ec Tab) 40 mg PO 0630 FRANCISCO JAVIER PRN Reason: Protocol Last Admin: 06/28/16 05:34 Dose: 40 mg Polyethylene Glycol (Miralax) 17 gm PO TID FRANCISCO JAVIER PRN Reason: Protocol Last Admin: 06/28/16 10:30 Dose: Not Given Sevelamer HCl (Renagel) 800 mg PO WM FRANCISCO JAVIER PRN Reason: Protocol Last Admin: 06/28/16 10:31 Dose: 800 mg Tamsulosin HCl (Flomax) 0.4 mg PO DAILY FRANCISCO JAVIER PRN Reason: Protocol Last Admin: 06/28/16 10:26 Dose: 0.4 mg Vitamin B Complex/Vit C/Folic Acid (Nephro-Jaylin) 1 tab PO DAILY FRANCISCO JAVIER PRN Reason: Protocol Last Admin: 06/28/16 10:30 Dose: 1 tab Physical Exam - Constitutional Appears: Well, Non-toxic, No Acute Distress - Extremities Exam Additional comments: Bilateral lower extremities exam DERM: No open wound is noted bilaterally. Ecchymosis is noted to posterior aspect of Right heel consistent with deep tissue injury. Elongated, mycotic, dystrophic toenails were noted to all digits bilaterally. (x10) Xerosis noted to skin bilaterally. VASC: Non-palpable DP and Pt noted bilaterally. [employer] EXAMINER less than 3 seconds noted to all digits bilaterally. NEURO: Diminished Protective sensation ORTHO: Pain on palpation to the Right heel, plantarly. No pain induced on palpation to Left heel. Pain on passive dorsiflextion of the ankle bilaterally. Decreased ROM to bilateral ankle joints dur to guarding. - Neurological Exam Neurological exam: Alert, Oriented x3 - Psychiatric Exam Psychiatric exam: Normal Affect, Normal Mood - Skin Skin Exam: Normal Color, Warm Results - Vital Signs Recent Vital Signs: Last Vital Signs Temp 97.8 F 06/28/16 10:00 Pulse 65 06/28/16 10:29 Resp 18 06/28/16 10:00 BP 156/76 H 06/28/16 10:29 Pulse Ox 100 06/28/16 10:00 - Labs Result Diagrams: 06/26/16 07:50 06/26/16 07:50 Labs: Laboratory Results - last 24 hr 06/27/16 06/27/16 06/27/16 04:55 17:04 22:33 POC Glucose (mg/dL) 101 194 H 199 H 06/28/16 05:08 POC Glucose (mg/dL) 139 H Assessment & Plan - Assessment and Plan (Free Text) Assessment: 85 year old male patient presents with Right heel deep tissue injury, bilateral Xerosis to skin lower extremities as well as elongated, mycotic, dustrophic toenails x10 Plan: Patient was seen, evaluated and treated at bedside labs and vitals reviewed discussed in detail with Dr. German Elongated, mycotic, dystrophic toenails were sharply cut with a large nail nipper up to level of normal length without any incident. (x10) Lac-Hydrin cream ordered for bilateral lower extremity xerosis Prevelon boots were ordered to be applied bilaterally to prevent decubitus heel ulcers Podiatry will continue to follow in-house <Cassia German - Last Filed: 07/16/16 12:27> Results - Vital Signs Recent Vital Signs: Last Vital Signs Temp 98.2 F 07/02/16 10:00 Pulse 66 07/02/16 10:00 Resp 18 07/02/16 10:00 BP 120/53 L 07/02/16 10:00 Pulse Ox 93 L 07/02/16 10:00 - Labs Result Diagrams: 07/01/16 06:15 07/01/16 06:15 Attending/Attestation - Attestation I have personally seen and examined this patient.: Yes I have fully participated in the care of the patient.: Yes I have reviewed all pertinent clinical information: Yes Notes (Text): 07/16/16 12:26 I saw patient and formulated the plan of care
--- NOTE | 2016-06-28 16:28 | CP.PCM.PN ---
Subjective - Date & Time of Evaluation Date of Evaluation: 06/28/16 Time of Evaluation: 10:30 - Subjective Subjective: Comfortable, afebrile, not in distress. Objective - Vital Signs/Intake and Output Vital Signs (last 24 hours): Temp Pulse Resp BP Pulse Ox 97.8 F 65 18 156/76 H 100 06/28/16 10:00 06/28/16 10:29 06/28/16 10:00 06/28/16 10:29 06/28/16 10:00 Intake and Output: 06/28/16 06/28/16 06:59 18:59 Intake Total 420 Balance 420 - Medications Medications: Current Medications Acetylcysteine (Acetylcysteine 20%) 4 ml IH [id number] FRANCISCO JAVIER PRN Reason: Protocol Last Admin: 06/28/16 13:51 Dose: Not Given Aspirin (Ecotrin) 81 mg PO DAILY FRANCISCO JAVIER PRN Reason: Protocol Last Admin: 06/28/16 10:26 Dose: 81 mg Atorvastatin Calcium (Lipitor) 40 mg PO DIN FRANCISCO JAVIER PRN Reason: Protocol Last Admin: 06/27/16 17:38 Dose: 40 mg Cholecalciferol (Vitamin D) 2,000 iu PO DAILY FRANCISCO JAVIER PRN Reason: Protocol Last Admin: 06/28/16 10:31 Dose: 2,000 iu Cyproheptadine HCl (Periactin) 4 mg PO BID FRANCISCO JAVIER Last Admin: 06/28/16 10:30 Dose: 4 mg Darbepoetin Julio (Aranesp (Renal)) 100 mcg IV ONCE FRANCISCO JAVIER Donepezil HCl (Aricept) 10 mg PO HS FRANCISCO JAVIER PRN Reason: Protocol Last Admin: 06/27/16 21:17 Dose: 10 mg Folic Acid (Folic Acid) 1 mg PO DAILY FRANCISCO JAVIER PRN Reason: Protocol Last Admin: 06/28/16 10:27 Dose: 1 mg Insulin Detemir (Levemir) 5 unit SC ACBD FRANCISCO JAVIER PRN Reason: Protocol Last Admin: 06/28/16 10:29 Dose: 5 unit Insulin Human Regular (Humulin R Low) 0 units SC ACHS FRANCISCO JAVIER PRN Reason: Protocol Last Admin: 06/28/16 12:31 Dose: 3 units Isosorbide Mononitrate (Imdur) 60 mg PO QAM FRANCISCO JAVIER PRN Reason: Protocol Last Admin: 06/28/16 10:27 Dose: 60 mg Lactic Acid (Lac-Hydrin 12% Cream (140 G)) 0 ea TOP DAILY FRANCISCO JAVIER Latanoprost (Xalatan Opht) 1 ml OU HS FRANCISCO JAVIER PRN Reason: Protocol Last Admin: 06/27/16 21:17 Dose: 1 ml Levalbuterol HCl (Xopenex) 0.63 mg IH [id number] FRANCISCO JAVIER PRN Reason: Protocol Last Admin: 06/28/16 13:51 Dose: Not Given Losartan Potassium (Cozaar) 100 mg PO DAILY FRANCISCO JAVIER PRN Reason: Protocol Last Admin: 06/28/16 10:26 Dose: 100 mg Metoprolol Tartrate (Lopressor) 50 mg PO 0800,1800 FRANCISCO JAVIER PRN Reason: Protocol Last Admin: 06/28/16 10:29 Dose: 50 mg Pantoprazole Sodium (Protonix Ec Tab) 40 mg PO 0630 FRANCISCO JAVIER PRN Reason: Protocol Last Admin: 06/28/16 05:34 Dose: 40 mg Polyethylene Glycol (Miralax) 17 gm PO TID FRANCISCO JAVIER PRN Reason: Protocol Last Admin: 06/28/16 13:41 Dose: Not Given Sevelamer HCl (Renagel) 800 mg PO WM FRANCISCO JAVIER PRN Reason: Protocol Last Admin: 06/28/16 12:32 Dose: 800 mg Tamsulosin HCl (Flomax) 0.4 mg PO DAILY FRANCISCO JAVIER PRN Reason: Protocol Last Admin: 06/28/16 10:26 Dose: 0.4 mg Vitamin B Complex/Vit C/Folic Acid (Nephro-Jaylin) 1 tab PO DAILY FRANCISCO JAVIER PRN Reason: Protocol Last Admin: 06/28/16 10:30 Dose: 1 tab - Labs Labs: 06/26/16 07:50 06/26/16 07:50 - Constitutional Appears: Non-toxic, No Acute Distress - Head Exam Head Exam: NORMAL INSPECTION - ENT Exam ENT Exam: Mucous Membranes Moist - Neck Exam Neck Exam: absent: Lymphadenopathy, Meningismus - Respiratory Exam Respiratory Exam: Decreased Breath Sounds - Cardiovascular Exam Cardiovascular Exam: +S1, +S2 - GI/Abdominal Exam GI & Abdominal Exam: Soft. absent: Tenderness Assessment and Plan - Assessment and Plan (Free Text) Plan: Assessment S/P sepsis from healthcare-associated pneumonia on top of non-ST elevation [place] with acute congestive heart failure, clinically improved and S/P treatment history of GI bleeding ESRD on HD cornoary artery disease Cerebrovascular accident Gastric cancer Mitral valve prolapse Plan completed 7 days of Doxycycline; will continue to monitor off antibiotics since he is at risk for nosocomial infections
[2016-06-28 17:33] LABS: ADD MANUAL DIFF? NO
[2016-06-28 17:38] LABS: BASO # 0.05 K/mm3 (0.0-2.0); BASO % 0.6 % (0.0-3.0); EOS # 0.2 (0.0-0.7); EOS % 2.1 % (1.5-5.0); GRAN # 5.67 (1.4-6.5); GRAN % 66.8 % (50.0-68.0); HEMATOCRIT 25.7 % (42.0-52.0); LYMPH % 23.5 % (22.0-35.0); MEAN CELL VOLUME 89.5 fL (80.0-105.0); MEAN CORPUSCULAR HGB CONC 33.5 g/dl (31.0-37.0); MEAN PLATELET VOLUME 11.1 fl (7.0-11.0); MONO # 0.6 (0.1-0.6); PLATELET COUNT 263 10^3/uL (120.0-450.0); RED CELL DISTRIBUTION WIDTH 16.7 % (11.5-14.5); WHITE BLOOD COUNT 8.5 10^3/ul (4.5-11.0)
[2016-06-28 17:44] LABS: ALB/GLOB RATIO 0.9 (1.1-1.8); BILIRUBIN,TOTAL 0.4 mg/dL (0.2-1.3); CALCIUM 8.7 mg/dL (8.4-10.5); MAGNESIUM 2.5 mg/dL (1.7-2.2); PHOSPHOROUS 5.9 mg/dL (2.5-4.5); POTASSIUM 5.2 mmol/L (3.6-5.0); TOTAL PROTEIN 7.1 g/dL (5.8-8.3)
[2016-06-28] MEDS: Latanoprost 2.5 ml Opht Soln OU SCH (21:12)
[2016-06-29] MEDS: Levalbuterol 0.63 MG/3 ML Inhal Soln UD IH SCH ×4 (02:15→21:00)
[2016-06-29] MEDS: Acetylcysteine 20% Inhal Soln (4ml) IH SCH ×4 (02:15→21:00)
[2016-06-29] MEDS: Pantoprazole 40 mg EC Tab PO SCH (05:38)
[2016-06-29] MEDS: Insulin Reg-LOW-Coverage SC SCH ×4 (06:42→21:42)
[2016-06-29] MEDS: Insulin Detemir 100 units/ml Vial (Levemir) SC SCH ×2 (08:06→17:30)
[2016-06-29] MEDS: Multivitamin Vitamin B Complex (Nephro-Vite) Tab PO SCH (09:55)
[2016-06-29] MEDS: POLYETHYLENE GLYCOL 3350 17 GM/Dose PACKET PO SCH ×4 (09:57→18:34)
[2016-06-29] MEDS: Ammonium Lactate 12% Cream (140 g) TOP SCH (10:00)
--- NOTE | 2016-06-29 14:09 | CP.PCM.PN ---
<Mabel Almazan - Last Filed: 06/29/16 14:06> Subjective - Date & Time of Evaluation Date of Evaluation: 06/29/16 Time of Evaluation: 11:40 - Subjective Subjective: 85 year old male patient with PMHx of ESRD (on HD), CAD, Cerebrovascular accident, Gastric cancer, Mitral valve prolapse, DM and healthcare associated pneumonia was seen at bedside this morning concerning Deep tissue injury to Right heel. Patient c/o mild pain to Right heel. Patient was resting in bed at the time of visit and denies of any acute overnight distress. Patient denies of any recent trauma to the right heel. Patient denies of any N/V/F/C or SOB today Objective - Vital Signs/Intake and Output Vital Signs (last 24 hours): Temp Pulse Resp BP Pulse Ox 97.4 F L 68 18 100/48 L 96 06/29/16 10:00 06/29/16 10:00 06/29/16 10:00 06/29/16 10:00 06/29/16 10:00 Intake and Output: 06/29/16 06/29/16 06:59 18:59 Intake Total 420 Balance 420 - Medications Medications: Current Medications Acetylcysteine (Acetylcysteine 20%) 4 ml IH [id number] FRANCISCO JAVIER PRN Reason: Protocol Last Admin: 06/29/16 13:50 Dose: Not Given Aspirin (Ecotrin) 81 mg PO 0800 FRANCISCO JAVIER PRN Reason: Protocol Last Admin: 06/29/16 08:01 Dose: 81 mg Atorvastatin Calcium (Lipitor) 40 mg PO DIN FRANCISCO JAVIER PRN Reason: Protocol Last Admin: 06/28/16 18:45 Dose: Not Given Cholecalciferol (Vitamin D) 2,000 iu PO DAILY FRANCISCO JAVIER PRN Reason: Protocol Last Admin: 06/29/16 09:54 Dose: 2,000 iu Cyproheptadine HCl (Periactin) 4 mg PO BID FRANCISCO JAVIER Last Admin: 06/29/16 09:56 Dose: 4 mg Darbepoetin Julio (Aranesp (Renal)) 100 mcg IV ONCE FRANCISCO JAVIER Donepezil HCl (Aricept) 10 mg PO HS RFANCISCO JAVIER PRN Reason: Protocol Last Admin: 06/28/16 21:12 Dose: 10 mg Folic Acid (Folic Acid) 1 mg PO DAILY FRANCISCO JAVIER PRN Reason: Protocol Last Admin: 06/29/16 09:56 Dose: 1 mg Insulin Detemir (Levemir) 5 unit SC ACBD FRANCISCO JAVIER PRN Reason: Protocol Last Admin: 06/29/16 08:06 Dose: 5 unit Insulin Human Regular (Humulin R Low) 0 units SC ACHS FRANCISCO JAVIER PRN Reason: Protocol Last Admin: 06/29/16 12:30 Dose: 2 units Isosorbide Mononitrate (Imdur) 60 mg PO 0600 FRANCISCO JAVIER PRN Reason: Protocol Last Admin: 06/29/16 05:37 Dose: Not Given Lactic Acid (Lac-Hydrin 12% Cream (140 G)) 0 ea TOP DAILY FRANCISCO JAVIER Last Admin: 06/29/16 10:00 Dose: 1 applic Latanoprost (Xalatan Opht) 1 ml OU HS FRANCISCO JAVIER PRN Reason: Protocol Last Admin: 06/28/16 21:12 Dose: 1 ml Levalbuterol HCl (Xopenex) 0.63 mg IH [id number] FRANCISCO JAVIER PRN Reason: Protocol Last Admin: 06/29/16 13:50 Dose: Not Given Losartan Potassium (Cozaar) 100 mg PO DAILY FRANCISCO JAVIER PRN Reason: Protocol Last Admin: 06/29/16 09:53 Dose: 100 mg Metoprolol Tartrate (Lopressor) 50 mg PO 0800,1800 FRANCISCO JAVIER PRN Reason: Protocol Last Admin: 06/29/16 08:02 Dose: Not Given Pantoprazole Sodium (Protonix Ec Tab) 40 mg PO 0630 FRANCISCO JAVIER PRN Reason: Protocol Last Admin: 06/29/16 05:38 Dose: 40 mg Polyethylene Glycol (Miralax) 17 gm PO TID FRANCISCO JAVIER PRN Reason: Protocol Last Admin: 06/29/16 09:59 Dose: Not Given Sevelamer HCl (Renagel) 800 mg PO WM FRANCISCO JAVIER PRN Reason: Protocol Last Admin: 06/29/16 12:30 Dose: 800 mg Tamsulosin HCl (Flomax) 0.4 mg PO 1700 FRANCISCO JAVIER PRN Reason: Protocol Vitamin B Complex/Vit C/Folic Acid (Nephro-Jaylin) 1 tab PO DAILY FRANCISCO JAVIER PRN Reason: Protocol Last Admin: 06/29/16 09:55 Dose: 1 tab - Labs Labs: 06/28/16 17:15 06/28/16 17:15 - Constitutional Appears: Well, Non-toxic, No Acute Distress - Extremities Exam Additional comments: Bilateral lower extremities exam DERM: No open wound is noted bilaterally. Small ecchymosis is noted to posterior aspect of Right heel consistent with deep tissue injury. Xerosis noted to skin bilaterally. VASC: Non-palpable DP and Pt noted bilaterally. 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 NEURO: Diminished Protective sensation ORTHO: Pain on palpation to the Right heel, plantarly. No pain induced on palpation to Left heel. Pain on passive dorsiflextion of the ankle bilaterally. Decreased ROM to bilateral ankle joints dur to guarding. - Neurological Exam Neurological Exam: Alert, Awake, Oriented x3 - Psychiatric Exam Psychiatric exam: Normal Affect, Normal Mood - Skin Skin Exam: Normal Color, Warm Assessment and Plan - Assessment and Plan (Free Text) Assessment: 85 year old male patient presents with Right heel deep tissue injury, bilateral Xerosis to skin lower extremities Plan: Patient was seen, evaluated and treated at bedside labs and vitals reviewed discussed in detail with Dr. Harris Continue applying lotion to bilateral lower extremities Prevelon boots were ordered to be applied bilaterally to prevent decubitus heel ulcers Podiatry will continue to follow in-house <Winston Harris - Last Filed: 06/29/16 15:28> Objective - Vital Signs/Intake and Output Vital Signs (last 24 hours): Temp Pulse Resp BP Pulse Ox 97.4 F L 68 18 100/48 L 96 06/29/16 10:00 06/29/16 10:00 06/29/16 10:00 06/29/16 10:00 06/29/16 10:00 Intake and Output: 06/29/16 06/29/16 06:59 18:59 Intake Total 420 Balance 420 - Medications Medications: Current Medications Acetylcysteine (Acetylcysteine 20%) 4 ml IH [id number] FRANCISCO JAVIER PRN Reason: Protocol Last Admin: 06/29/16 13:50 Dose: Not Given Aspirin (Ecotrin) 81 mg PO 0800 FRANCISCO JAVIER PRN Reason: Protocol Last Admin: 06/29/16 08:01 Dose: 81 mg Atorvastatin Calcium (Lipitor) 40 mg PO DIN FRANCISCO JAVIER PRN Reason: Protocol Last Admin: 06/28/16 18:45 Dose: Not Given Cholecalciferol (Vitamin D) 2,000 iu PO DAILY FRANCISCO JAVIER PRN Reason: Protocol Last Admin: 06/29/16 09:54 Dose: 2,000 iu Cyproheptadine HCl (Periactin) 4 mg PO BID FRANCISCO JAVIER Last Admin: 06/29/16 09:56 Dose: 4 mg Darbepoetin Julio (Aranesp (Renal)) 100 mcg IV ONCE FRANCISCO JAVIER Donepezil HCl (Aricept) 10 mg PO HS FRANCISCO JAVIER PRN Reason: Protocol Last Admin: 06/28/16 21:12 Dose: 10 mg Folic Acid (Folic Acid) 1 mg PO DAILY FRANCISCO JAVIER PRN Reason: Protocol Last Admin: 06/29/16 09:56 Dose: 1 mg Insulin Detemir (Levemir) 5 unit SC ACBD FRANCISCO JAVIER PRN Reason: Protocol Last Admin: 06/29/16 08:06 Dose: 5 unit Insulin Human Regular (Humulin R Low) 0 units SC ACHS FRANCISCO JAVIER PRN Reason: Protocol Last Admin: 06/29/16 12:30 Dose: 2 units Isosorbide Mononitrate (Imdur) 60 mg PO 0600 FRANCISCO JAVIER PRN Reason: Protocol Last Admin: 06/29/16 05:37 Dose: Not Given Lactic Acid (Lac-Hydrin 12% Cream (140 G)) 0 ea TOP DAILY FRANCISCO JAVIER Last Admin: 06/29/16 10:00 Dose: 1 applic Latanoprost (Xalatan Opht) 1 ml OU HS FRANCISCO JAVIER PRN Reason: Protocol Last Admin: 06/28/16 21:12 Dose: 1 ml Levalbuterol HCl (Xopenex) 0.63 mg IH [id number] FRANCISCO JAVIER PRN Reason: Protocol Last Admin: 06/29/16 13:50 Dose: Not Given Losartan Potassium (Cozaar) 100 mg PO DAILY FRANCISCO JAVIER PRN Reason: Protocol Last Admin: 06/29/16 09:53 Dose: 100 mg Metoprolol Tartrate (Lopressor) 50 mg PO 0800,1800 FRANCISCO JAVIER PRN Reason: Protocol Last Admin: 06/29/16 08:02 Dose: Not Given Pantoprazole Sodium (Protonix Ec Tab) 40 mg PO 0630 FRANCISCO JAVIER PRN Reason: Protocol Last Admin: 06/29/16 05:38 Dose: 40 mg Polyethylene Glycol (Miralax) 17 gm PO TID FRANCISCO JAVIER PRN Reason: Protocol Last Admin: 06/29/16 09:59 Dose: Not Given Sevelamer HCl (Renagel) 800 mg PO WM FRANCISCO JAVIER PRN Reason: Protocol Last Admin: 06/29/16 12:30 Dose: 800 mg Tamsulosin HCl (Flomax) 0.4 mg PO 1700 FRANCISCO JAVIER PRN Reason: Protocol Vitamin B Complex/Vit C/Folic Acid (Nephro-Jaylin) 1 tab PO DAILY FRANCISCO JAVIER PRN Reason: Protocol Last Admin: 06/29/16 09:55 Dose: 1 tab - Labs Labs: 06/28/16 17:15 06/28/16 17:15 Attending/Attestation - Attestation I have personally seen and examined this patient.: Yes I have fully participated in the care of the patient.: Yes I have reviewed all pertinent clinical information, including history, physical exam and plan: Yes
--- NOTE | 2016-06-29 14:43 | PN ---
DATE: 06/29/2016 SUBJECTIVE: The patient is currently seen in the room with his family. He is en route to the [facility]. The patient has been doing relatively well in the TCU. [facility] The patient has completed a course of antibiotic therapy for his bilateral pneumonia. MEDICATIONS: Medication list reviewed. The patient is currently on inhalation therapy, Aranesp on d ialysis, Aricept, Cozaar, Ecotrin, Flomax, insulin, folic acid, Lac-Hydrin, Lipitor, Lopressor, Nephr o-Jaylin, Periactin, Protonix, Renagel, vitamin D, eyedrops, Xopenex. OBJECTIVE: VITAL SIGNS: Blood pressure 100/48, temperature 97.4, respiratory rate is 18 with a pulse of 68. HEENT: Normocephalic, atraumatic. Conjunctivae remain pale. Sclerae are nonicteric. NECK: Supple, no neck vein distention. CHEST: Clear to auscultation and percussion. No rales, no rhonchi or wheezing. CARDIOVASCULAR: Shows a regular rate and rhythm with aortic stenosis, mitral regurgitation, tricuspi d regurgitation. No S3, no S4, no rub. ABDOMEN: Soft. Bowel sounds normal. No rebound, no guarding, no masses. EXTREMITIES: Show a left upper extremity AV fistula, positive thrill, positive bruit. No lower extr emity cyanosis, clubbing or edema. LABORATORY DATA AND IMAGING: Labs from yesterday predialysis, potassium 5.2 on chemistry, BUN 72, cr eatinine of 10.1. Calcium was 8.7, phosphorus 5.9 with a magnesium level of 2.5. The patient remain s on binder therapy. CBC showed a white blood cell count of 8.5 with hemoglobin slightly lower at 8. 6. Platelet count is 263,000. ASSESSMENT: 1. End-stage renal disease on Tuesday, Tuesday and Tuesday dialysis. The patient is scheduled for d ialysis on 06/30/2016 as per routine. 2. Status post altered mental status secondary to sepsis, bilateral pneumonia. The patient has comp leted a course of antibiotic therapy. He has been followed by ID. 3. History of insulin dependent diabetes mellitus, currently stable. The patient is both on long an d short-acting insulin. 4. History of arteriosclerotic heart disease, recent myocardial infarction, status post recent cardi ac catheterization showing multivessel coronary artery disease. The patient is being treated medical ly under the guidance of his boiling house hand. 5. History of aortic stenosis, mitral regurgitation, tricuspid regurgitation with pulmonary hyperten kelley. All appear to be stable. 6. Past history of gastrointestinal bleed secondary to gastric ulcer. 7. History of anemia secondary to chronic kidney disease. We will continue on maximum dose of Arane sp with dialysis. 8. History of secondary hyperparathyroidism. Continue renal diet along with binder therapy. Phosph orus level is high at 5.9. PLAN: 1. Complete the course of rehabilitation in the TCU. 2. Hemodialysis scheduled for tomorrow. Will maximize Aranesp dose to 100 mcg a week. 3. Continue phosphorus binder therapy and renal diet. 4. Discussed with staff in the TCU and patient's family. Upon discharge, the patient will be transferred back to [facility] for outpatient dialysis Tuesday, Tuesday and Tuesday. William Erickson MD cc: [id number] TT: 06/29/2016 14:43:28 Confirmation # [id number] Dictation # [id number] [email or web address]
[2016-06-29] MEDS: Latanoprost 2.5 ml Opht Soln OU SCH (21:43)
--- NOTE | 2016-06-30 01:13 | PN ---
DATE: 06/29/2016 The patient is seen lying in room 318, bed 1. The patient is in the process of getting shaved. The patient appears to be comfortable. Overnight nurse's notes were reviewed. PHYSICAL EXAMINATION: VITAL SIGNS: T-max 98.5, heart rate 68-63, blood pressure 151/68, 156/76, 111/ 62, 138/70, respiration 18, O2 sat 97%. Intake output not documented. HEAD: Normocephalic, atraumatic. HEENT examination shows pinkish, pale conjunctivae. Anicteric sclerae. No oropharyngeal lesion. NECK: No neck rigidity. Soft carotid bruit. CHEST: Kyphosis. LUNGS: Shows positive rhonchi, occasional positive rhonchi upper lung chaney. CARDIOVASCULAR: Shows S1, S2, regular rhythm. Questionable soft systolic murmur right second intercostal space, left sternal border, left second intercostal space. ABDOMEN: Soft. Positive bowel sounds. GENITALIA: Male. RECTAL: Deferred. EXTREMITIES: Upper extremity, positive left upper extremity AV fistula, positive thrill. NEUROLOGIC: Cranial nerves II-XII limited. Gait examination not tested. MUSCULOSKELETAL: Shows a body mass index of 23.3. DIAGNOSTICS: 06/28, WBC 8.5, hemoglobin/hematocrit 8.6 and 25.7, platelet 263. Sodium 132, potassium 5.2, chloride 99, CO2 20, anion gap 18, BUN 72, creatinine 10.1, GFR 6, glucose 175, 142, calcium 8.7, phosphorus 5.9, magnesium 2.5. LFTs are normal. Blood type is B positive. IMPRESSION AND PLAN: 1. Deconditioning. 2. Gait dysfunction. 3. Systemic inflammatory response syndrome with possible sepsis with multiple bilateral multilobar healthcare-associated pneumonia. 4. Acute non-ST elevation myocardial infarction with elevated troponin. 5. Transient hypotension. 6. Dementia. 7. Normocytic anemia with decreasing hemoglobin and hematocrit. 8. Non-hemolyzed hyperkalemia. 9. End-stage renal disease, hemodialysis dependent 3 times a week. 10. Insulin requiring diabetes mellitus. 11. Hyperphosphatemia. 12. B positive blood type. 13. History of dementia. 14. History of poor compliance and noncompliance with medication and diet. 15. Secondary hyperparathyroidism with hyperphosphatemia. 16. 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 17. Elongated mycotic dystrophic toenails. 1. Deconditioning. 2. Gait dysfunction. 3. Systemic inflammatory response syndrome with possible sepsis with multilobar healthcare-associated pneumonia. 4. Acute uqa-YW-jthzgivcm myocardial infarction with elevated troponin. 5. End-stage renal disease, hemodialysis dependent 3 times a week. 6. Dementia. 7. Insulin-requiring type 1 diabetes mellitus. 8. Diabetic neuropathy. 9. Sepsis secondary to healthcare-associated multilobar pneumonia with acute lcv-OM-lganaqmes myocardial infarction. 10. Hypertension. 10. Normocytic anemia. 11. End-stage renal disease, hemodialysis dependent. 12. Dementia. 13. Hypertension. 14. Questionable anorexia. 15. Prostatic hypertrophy. 16. Deconditioning. 1. Deconditioning. 2. Gait dysfunction. 3. Systemic inflammatory response syndrome with possible sepsis, with multilobar healthcare-associated pneumonia. 4. Non-ST elevation myocardial infarction with elevated troponin. 5. Tachycardia 6. Chron...Anemia of chronic disease, chronic kidney disease, normocytic anemia. 7. Secondary hyperparathyroidism with hyperphosphatemia. 8. Insulin-requiring type 1 diabetes mellitus. 9. Hypertension. 10. Sepsis secondary to multilobar healthcare-associated pneumonia with non-ST elevation myocardial infarction. 11. Dementia. 12. Hypertension. 13. Prostatic hypertrophy. 14. Insulin requiring type 1 diabetes mellitus. 15. Dyslipidemia. 16. History of constipation. 17. Poor appetite and anorexia. 18. Diabetic gastroparesis. 19. Hypovitaminosis D. 1. Gait dysfunction. 2. Deconditioning. 3. Poor compliance and noncompliance with medication. 4. Hypertension. 5. Tachycardia. 6. Systemic inflammatory response syndrome with possible sepsis with healthcare -associated multilobar pneumonia. 7. Non-ST elevation myocardial infarction. 8. End-stage renal disease, hemodialysis dependent. 9. Insulin-requiring diabetes mellitus. 10. Dementia. 11. Hypertension. 12. Prostatitic hypertrophy. 13. Insulin-requiring diabetes mellitus. 14. Dyslipidemia. 15. Constipation. 16. Diabetic gastroparesis. 17. Hypovitaminosis D. 18. Deconditioning. 19. Feeding and eating dysfunction. 1. Systemic inflammatory response syndrome with possible sepsis from bilateral healthcare-associated multilobar pneumonia. 2. Acute qio-TU-wnutdoybj myocardial infarction with elevated troponin. 3. Tachycardia. 4. Transient uncontrolled hypertension. 5. Leukocytosis with granulocytosis. 6. Normocytic anemia. 7. Lactic acidosis. 8. End-stage renal disease, hemodialysis dependent. 9. Insulin-requiring diabetes mellitus. 10. Acute ala-BT-ntappadeb myocardial infarction with elevated troponin. 11. Proteinuria, glycosuria, microscopic hematuria. 12. History of dementia. 1. Systemic inflammatory response syndrome with possible sepsis with healthcare -associated bilateral multilobar pneumonia. 2. Acute non-ST elevation myocardial infarction with elevated troponin. 3. Bifascicular block, right bundle branch block and left anterior hemiblock and first degree AV block. 4. Hypertension. 5. Tachycardia. 6. Questionable feeding dysfunction versus noncompliance and poor compliance with medication and diet. 7. Leukocytosis with granulocytosis. 8. Normocytic anemia. 9. Lactic acidosis. 10. Insulin-requiring diabetes mellitus. 11. Proteinuria, glycosuria, microscopic hematuria. 12. Questionable lateral coronary ischemic changes on the EKG. 13. End-stage renal disease, hemodialysis dependent 3 times a week via the left upper extremity arteriovenous fistula. 14. Dementia. 15. Deconditioning 16. Gait dysfunction. 17. Insulin-requiring diabetes mellitus. 18. Coronary artery disease with angioplasty. 19. Prostatic hypertrophy. 20. Insulin-requiring diabetes mellitus. 21. Dyslipidemia. 22. Constipation. 23. Secondary hyperparathyroidism. 24. Hypovitaminosis D. 1. Questionable and possible sepsis with bilateral community-acquired extensive pneumonia and interstitial pneumonia. 2. Uncontrolled hypertension. 3. Tachycardia. 4. Dementia. 5. Poor compliance with diet and medication. 6. Leukocytosis with granulocytosis. 7. Normocytic anemia. 8. Lactic acidosis. 9. Nonhemolyzed hyperkalemia. 10. End-stage renal disease, hemodialysis dependent. 11. Increased anion gap metabolic acidosis. 12. Hyperphosphatemia. 13. Questionable acute rer-KT-ncedwrqwp myocardial infarction with elevated troponin and lateral coronary ischemic changes on the EKG in lead I, aVL, and V3 -V6. 14. Bifascicular block with left anterior hemiblock and right bundle branch block. 15. Elevated BNP, probably secondary to volume overload. 16. Possible acute esk-QD-sypvpbkta myocardial infarction with elevated troponin and lateral ischemic changes on the EKG. 17. Proteinuria, glycosuria, microscopic hematuria. 18. Insulin-requiring diabetes mellitus. 19. Hyperphosphatemia. 20. Granulocytosis. 21. Extensive bilateral interstitial pneumonia and infiltrate with small bilateral pleural effusion. 22. Extensive coronary artery calcification. 23. Right inguinal hernia, nonobstructed 24. End-stage renal disease, hemodialysis dependent 3 times a week via left upper extremity arteriovenous fistula. 25. History of dementia. 26. Leukocytosis with granulocytosis and normocytic anemia. 27. Lactic acidosis, increased anion gap metabolic acidosis and lactic acidosis. 28. Proteinuria, glycosuria, microscopic hematuria. 29. Possible toxic metabolic encephalopathy secondary to sepsis. 30. Deconditioning. 31. History of diabetic gastroparesis, history of constipation, history of poor compliance, history of hypovitaminosis D, history of prostate hypertrophy, history of constipation, history of insulin-requiring diabetes mellitus, history of dyslipidemia, history of angina, history of diabetic gastroparesis. 1. Possible sepsis with bilateral community-acquired pneumonia and infiltrate. 2. Uncontrolled hypertension with tachycardia. 3. Leukocytosis with granulocytosis. 4. Sepsis with extensive bilateral community-acquired pneumonia and interstitial pneumonia. 5. Small bilateral pleural effusions. 6. Extensive coronary artery calcification. 7. Nonobstructing right inguinal hernia. 8. Dementia. 9. Tachycardia. 10. Leukocytosis with granulocytosis and normocytic anemia. 11. Lactic acidosis. 12. End-stage renal disease, hemodialysis dependent. 13. Increased anion gap metabolic acidosis. 14. Insulin requiring diabetes mellitus. 15. Indeterminate troponin versus questionable non-ST elevation myocardial infarction with elevated troponin of 0.12 in an end-stage renal disease patient. 16. Elevated BNP, probably secondary to volume overload. 17. Proteinuria, glycosuria, microscopic hematuria. 18. Left anterior hemiblock. 19. Right bundle branch block. 20. Bifascicular block. 21. End-stage renal disease, hemodialysis dependent via the left upper extremity arteriovenous fistula. 22. Possible toxic metabolic encephalopathy secondary to sepsis. 23. Non-hemolyzed mild hyperkalemia. 24. Deconditioning. 25. History of diabetic gastroparesis, history of constipation, history of noncompliance, history of hypovitaminosis D, history of prostate hypertrophy, history of constipation, history of insulin-requiring diabetes mellitus, history of dyslipidemia, history of angina, history of diabetic gastroparesis. The patient seen by podiatry. The patient seen by infectious disease. The patient seen by nephrology. Their recommendations were noted. PLAN: At this time, the patient has been ordered repeat lab on dialysis. The patient has been ordered transfusion of PRBC on dialysis. CURRENT MEDICATIONS: Mucomyst nebulizer 20% 4 mL q. 6 hours, Aranesp 100 mcg to be given on dialysis, Aricept 10 mg at bedtime, Cozaar 100 mg daily, Ecotrin 81 mg daily, Flomax 0.4 mg daily, folic acid 1 mg daily, Regular insulin low dose sliding scale coverage a.c. and at bedtime. Imdur 60 mg daily, Lac-Hydrin lotion to both feet and legs twice daily. Levemir 5 units with breakfast and dinner, Lipitor 40 mg daily. Lopressor 50 mg twice a day, MiraLax 17 grams 3 times a day. Nephro-Jaylin 1 tablet daily. Periactin 4 mg twice a day, Protonix 40 mg daily. Renagel sevelamer 800 mg with meals, vitamin D3 2000 units daily, Xalatan eyedrops, Xopenex nebulizer 0.63 every 6 hours. Chest PT, consistent carbohydrate diet. Out of bed. Occupational therapy, physical therapy. The patient will be ordered transfusion of PRBC on dialysis. Dictated, electronically signed, not read. Zeyad Nazario MD cc: [id number] TT: 06/29/2016 14:13:19 Confirmation # [id number] Dictation # [id number] MTDD
[2016-06-30] MEDS: Acetylcysteine 20% Inhal Soln (4ml) IH SCH ×4 (01:43→20:14)
[2016-06-30] MEDS: Levalbuterol 0.63 MG/3 ML Inhal Soln UD IH SCH ×4 (01:43→20:14)
[2016-06-30] MEDS: Pantoprazole 40 mg EC Tab PO SCH (06:58)
[2016-06-30] MEDS: Insulin Reg-LOW-Coverage SC SCH ×4 (07:08→23:17)
[2016-06-30] MEDS: Insulin Detemir 100 units/ml Vial (Levemir) SC SCH ×2 (07:08→19:37)
[2016-06-30] MEDS ORDERED: Darbepoetin Alfa 100 mcg/ml Inj IVP ONE ×2 (07:15→17:00)
[2016-06-30] MEDS: Ammonium Lactate 12% Cream (140 g) TOP SCH (10:08)
[2016-06-30] MEDS: Multivitamin Vitamin B Complex (Nephro-Vite) Tab PO SCH (10:09)
[2016-06-30] MEDS: POLYETHYLENE GLYCOL 3350 17 GM/Dose PACKET PO SCH ×3 (10:09→19:38)
--- NOTE | 2016-06-30 10:25 | CP.PCM.PN ---
Subjective - Date & Time of Evaluation Date of Evaluation: 06/30/16 Time of Evaluation: 10:00 - Subjective Subjective: 85 year old male patient with PMHx of ESRD (on HD), CAD, Cerebrovascular accident, Gastric cancer, Mitral valve prolapse, DM and healthcare associated pneumonia was seen at bedside this morning concerning Deep tissue injury to Right heel. Patient was resting in bed at the time of visit and denies of any acute overnight distress. No dressing is applied to bilateral lower extremities. Patient c/o mild pain to Right heel. Patient denies of any N/V/F/C or SOB today Objective - Vital Signs/Intake and Output Vital Signs (last 24 hours): Temp Pulse Resp BP Pulse Ox 98.7 F 67 18 109/52 L 97 06/29/16 15:37 06/30/16 08:17 06/29/16 15:37 06/30/16 08:17 06/29/16 15:37 Intake and Output: 06/30/16 06/30/16 06:59 18:59 Intake Total 420 Balance 420 - Medications Medications: Current Medications Acetylcysteine (Acetylcysteine 20%) 4 ml IH [id number] FRANCISCO JAVIER PRN Reason: Protocol Last Admin: 06/30/16 07:36 Dose: 4 ml Aspirin (Ecotrin) 81 mg PO 0800 FRANCISCO JAVIER PRN Reason: Protocol Last Admin: 06/30/16 08:16 Dose: 81 mg Atorvastatin Calcium (Lipitor) 40 mg PO DIN FRANCISCO JAVIER PRN Reason: Protocol Last Admin: 06/29/16 18:00 Dose: 40 mg Cholecalciferol (Vitamin D) 2,000 iu PO DAILY FRANCISCO JAVIER PRN Reason: Protocol Last Admin: 06/30/16 10:10 Dose: 2,000 iu Cyproheptadine HCl (Periactin) 4 mg PO BID FRANCISCO JAVIER Last Admin: 06/30/16 10:10 Dose: 4 mg Donepezil HCl (Aricept) 10 mg PO HS FRANCISCO JAVIER PRN Reason: Protocol Last Admin: 06/29/16 21:42 Dose: 10 mg Folic Acid (Folic Acid) 1 mg PO DAILY FRANCISCO JAVIER PRN Reason: Protocol Last Admin: 06/30/16 10:07 Dose: 1 mg Insulin Detemir (Levemir) 5 unit SC ACBD FRANCISCO JAVIER PRN Reason: Protocol Last Admin: 06/30/16 07:08 Dose: Not Given Insulin Human Regular (Humulin R Low) 0 units SC ACHS FRANCISCO JAVIER PRN Reason: Protocol Last Admin: 06/30/16 07:08 Dose: Not Given Isosorbide Mononitrate (Imdur) 60 mg PO 0600 FRANCISCO JAVIER PRN Reason: Protocol Last Admin: 06/30/16 06:58 Dose: 60 mg Lactic Acid (Lac-Hydrin 12% Cream (140 G)) 0 ea TOP DAILY FRANCISCO JAVIER Last Admin: 06/30/16 10:08 Dose: 1 applic Latanoprost (Xalatan Opht) 1 ml OU HS FRANCISCO JAVIER PRN Reason: Protocol Last Admin: 06/29/16 21:43 Dose: 1 ml Levalbuterol HCl (Xopenex) 0.63 mg IH [id number] FRANCISCO JAVIER PRN Reason: Protocol Last Admin: 06/30/16 07:36 Dose: 0.63 mg Losartan Potassium (Cozaar) 100 mg PO DAILY FRANCISCO JAVIER PRN Reason: Protocol Last Admin: 06/30/16 10:07 Dose: Not Given Metoprolol Tartrate (Lopressor) 50 mg PO 0800,1800 FRANCISCO JAVIER PRN Reason: Protocol Last Admin: 06/30/16 08:17 Dose: Not Given Pantoprazole Sodium (Protonix Ec Tab) 40 mg PO 0630 FRANCISCO JAVIER PRN Reason: Protocol Last Admin: 06/30/16 06:58 Dose: 40 mg Polyethylene Glycol (Miralax) 17 gm PO TID FRANCISCO JAVIER PRN Reason: Protocol Last Admin: 06/30/16 10:09 Dose: Not Given Sevelamer HCl (Renagel) 800 mg PO WM FRANCISCO JAVIER PRN Reason: Protocol Last Admin: 06/30/16 08:16 Dose: 800 mg Tamsulosin HCl (Flomax) 0.4 mg PO 1700 FRANCISCO JAVIER PRN Reason: Protocol Last Admin: 06/29/16 18:17 Dose: 0.4 mg Vitamin B Complex/Vit C/Folic Acid (Nephro-Jaylin) 1 tab PO DAILY FRANCISCO JAVIER PRN Reason: Protocol Last Admin: 06/30/16 10:09 Dose: 1 tab - Labs Labs: 06/28/16 17:15 06/28/16 17:15 - Constitutional Appears: Well, Non-toxic, No Acute Distress - Extremities Exam Additional comments: Bilateral lower extremities exam DERM: No open wound is noted bilaterally. A small ecchymosis measuring 1cm in diameter is noted to posterior aspect of Right heel consistent with deep tissue injury. Xerosis noted to skin bilaterally. VASC: Non-palpable DP and Pt noted bilaterally. 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 NEURO: Diminished Protective sensation ORTHO: Pain on palpation to the Right heel, plantarly. No pain induced on palpation to Left heel. Pain on passive dorsiflextion of the ankle bilaterally. Decreased ROM to bilateral ankle joints dur to guarding. - Neurological Exam Neurological Exam: Alert, Awake, Oriented x3 - Psychiatric Exam Psychiatric exam: Normal Affect, Normal Mood - Skin Skin Exam: Normal Color, Warm Assessment and Plan - Assessment and Plan (Free Text) Assessment: 85 year old male patient presents with Right heel deep tissue injury, bilateral Xerosis to skin lower extremities Plan: Patient was seen, evaluated and treated at bedside labs and vitals reviewed discussed in detail with Dr. German Continue applying lotion to bilateral lower extremities Prevelon boots applied bilaterally to prevent decubitus heel ulcers Podiatry will continue to follow in-house
--- NOTE | 2016-06-30 14:06 | PN ---
DATE: 06/30/2016 The patient is seen is room 318, bed 1. The patient is out of bed to chair. The patient is alert, awake, responsive. Overnight nurse's notes were reviewed. The patient had episodes of asymptomatic hypotension. Antihypertensives were held. PHYSICAL EXAMINATION: VITAL SIGNS: In the last 24 hours, T-max 98, pulse 67-71. Blood pressure now is 100/52, 138/70, 109/52. Respirations 18, O2 sat 100%. HEAD: Normocephalic, atraumatic. HEENT: Shows pinkish, pale conjunctivae. Anicteric sclerae. No oropharyngeal lesion. NECK: No neck rigidity. Soft carotid bruit. CHEST: Kyphosis. LUNGS: Shows no rales, crackles, or wheezing. CARDIOVASCULAR: Shows S1, S2, regular rhythm. Questionable soft systolic murmur right second intercostal space, left sternal border. ABDOMEN: Soft, positive bowel sounds. LUNGS: Shows positive soft rhonchi, upper lung chaney anteriorly and posteriorly. CARDIOVASCULAR: Shows S1, S2, regular rhythm. Questionable soft systolic murmur right second intercostal space, left sternal border, left second intercostal space. ABDOMEN: Soft, positive bowel sounds, nontender. No hepatosplenomegaly. No costovertebral angle tenderness. GENITALIA: Male. RECTAL: Deferred. EXTREMITIES: Lower extremities show no pitting edema, no calf tenderness, no Homans' sign. Positive left upper extremity AV fistula, positive thrill. GAIT: Deferred. MUSCULOSKELETAL: Shows a body mass index of 23.3. Cranial nerves II-XII limited. Gait examination is not tested. VASCULAR: Palpable pulses. Plantars are downward. DTRs are 2+. DIAGNOSTICS: None from today. We are waiting for patient's hemodialysis and pre-hemodialysis lab. Fingerstick blood sugar 139, 117, 111, 232, 175, 181, 165 , 225, 139. IMPRESSION AND PLAN: 1. Deconditioning. 2. Gait dysfunction. 3. Possible sepsis with systemic inflammatory response syndrome with multilobar bilateral healthcare associated pneumonia. 4. Acute non-ST elevation myocardial infarction with elevated troponin. 5. Asymptomatic transient hypotension. 6. Deconditioning. 7. Gait dysfunction. 8. Insulin-requiring type 1 diabetes mellitus. 9. Normocytic anemia. 10. Insulin requiring diabetes mellitus. 11. Non-hemolyzed hyperkalemia. 12. End-stage renal disease, hemodialysis dependent. 13. Hyperphosphatemia. 14. Secondary hyperparathyroidism. 15. Dementia. 16. History of hypertension. 17. Prostatic hypertrophy. 18. Constipation. 19. Anorexia. 20. Hypovitaminosis D. 21. Right heel deep tissue injury with bilateral ____ to the lower extremity skin. 1. Deconditioning. 2. Gait dysfunction. 3. Systemic inflammatory response syndrome with possible sepsis with multiple bilateral multilobar healthcare-associated pneumonia. 4. Acute non-ST elevation myocardial infarction with elevated troponin. 5. Transient hypotension. 6. Dementia. 7. Normocytic anemia with decreasing hemoglobin and hematocrit. 8. Non-hemolyzed hyperkalemia. 9. End-stage renal disease, hemodialysis dependent 3 times a week. 10. Insulin requiring diabetes mellitus. 11. Hyperphosphatemia. 12. B positive blood type. 13. History of dementia. 14. History of poor compliance and noncompliance with medication and diet. 15. Secondary hyperparathyroidism with hyperphosphatemia. 16. 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 17. Elongated mycotic dystrophic toenails. 1. Deconditioning. 2. Gait dysfunction. 3. Systemic inflammatory response syndrome with possible sepsis with multilobar healthcare-associated pneumonia. 4. Acute wxo-SB-tuzruomeo myocardial infarction with elevated troponin. 5. End-stage renal disease, hemodialysis dependent 3 times a week. 6. Dementia. 7. Insulin-requiring type 1 diabetes mellitus. 8. Diabetic neuropathy. 9. Sepsis secondary to healthcare-associated multilobar pneumonia with acute jpt-JD-gowsnakls myocardial infarction. 10. Hypertension. 10. Normocytic anemia. 11. End-stage renal disease, hemodialysis dependent. 12. Dementia. 13. Hypertension. 14. Questionable anorexia. 15. Prostatic hypertrophy. 16. Deconditioning. 1. Deconditioning. 2. Gait dysfunction. 3. Systemic inflammatory response syndrome with possible sepsis, with multilobar healthcare-associated pneumonia. 4. Non-ST elevation myocardial infarction with elevated troponin. 5. Tachycardia 6. Chron...Anemia of chronic disease, chronic kidney disease, normocytic anemia. 7. Secondary hyperparathyroidism with hyperphosphatemia. 8. Insulin-requiring type 1 diabetes mellitus. 9. Hypertension. 10. Sepsis secondary to multilobar healthcare-associated pneumonia with non-ST elevation myocardial infarction. 11. Dementia. 12. Hypertension. 13. Prostatic hypertrophy. 14. Insulin requiring type 1 diabetes mellitus. 15. Dyslipidemia. 16. History of constipation. 17. Poor appetite and anorexia. 18. Diabetic gastroparesis. 19. Hypovitaminosis D. 1. Gait dysfunction. 2. Deconditioning. 3. Poor compliance and noncompliance with medication. 4. Hypertension. 5. Tachycardia. 6. Systemic inflammatory response syndrome with possible sepsis with healthcare -associated multilobar pneumonia. 7. Non-ST elevation myocardial infarction. 8. End-stage renal disease, hemodialysis dependent. 9. Insulin-requiring diabetes mellitus. 10. Dementia. 11. Hypertension. 12. Prostatitic hypertrophy. 13. Insulin-requiring diabetes mellitus. 14. Dyslipidemia. 15. Constipation. 16. Diabetic gastroparesis. 17. Hypovitaminosis D. 18. Deconditioning. 19. Feeding and eating dysfunction. 1. Systemic inflammatory response syndrome with possible sepsis from bilateral healthcare-associated multilobar pneumonia. 2. Acute tna-PV-ywztcddnk myocardial infarction with elevated troponin. 3. Tachycardia. 4. Transient uncontrolled hypertension. 5. Leukocytosis with granulocytosis. 6. Normocytic anemia. 7. Lactic acidosis. 8. End-stage renal disease, hemodialysis dependent. 9. Insulin-requiring diabetes mellitus. 10. Acute hip-KD-ktxoghngf myocardial infarction with elevated troponin. 11. Proteinuria, glycosuria, microscopic hematuria. 12. History of dementia. 1. Systemic inflammatory response syndrome with possible sepsis with healthcare -associated bilateral multilobar pneumonia. 2. Acute non-ST elevation myocardial infarction with elevated troponin. 3. Bifascicular block, right bundle branch block and left anterior hemiblock and first degree AV block. 4. Hypertension. 5. Tachycardia. 6. Questionable feeding dysfunction versus noncompliance and poor compliance with medication and diet. 7. Leukocytosis with granulocytosis. 8. Normocytic anemia. 9. Lactic acidosis. 10. Insulin-requiring diabetes mellitus. 11. Proteinuria, glycosuria, microscopic hematuria. 12. Questionable lateral coronary ischemic changes on the EKG. 13. End-stage renal disease, hemodialysis dependent 3 times a week via the left upper extremity arteriovenous fistula. 14. Dementia. 15. Deconditioning 16. Gait dysfunction. 17. Insulin-requiring diabetes mellitus. 18. Coronary artery disease with angioplasty. 19. Prostatic hypertrophy. 20. Insulin-requiring diabetes mellitus. 21. Dyslipidemia. 22. Constipation. 23. Secondary hyperparathyroidism. 24. Hypovitaminosis D. 1. Questionable and possible sepsis with bilateral community-acquired extensive pneumonia and interstitial pneumonia. 2. Uncontrolled hypertension. 3. Tachycardia. 4. Dementia. 5. Poor compliance with diet and medication. 6. Leukocytosis with granulocytosis. 7. Normocytic anemia. 8. Lactic acidosis. 9. Nonhemolyzed hyperkalemia. 10. End-stage renal disease, hemodialysis dependent. 11. Increased anion gap metabolic acidosis. 12. Hyperphosphatemia. 13. Questionable acute ksn-TM-pzauremdt myocardial infarction with elevated troponin and lateral coronary ischemic changes on the EKG in lead I, aVL, and V3 -V6. 14. Bifascicular block with left anterior hemiblock and right bundle branch block. 15. Elevated BNP, probably secondary to volume overload. 16. Possible acute bdd-HW-yacakroiy myocardial infarction with elevated troponin and lateral ischemic changes on the EKG. 17. Proteinuria, glycosuria, microscopic hematuria. 18. Insulin-requiring diabetes mellitus. 19. Hyperphosphatemia. 20. Granulocytosis. 21. Extensive bilateral interstitial pneumonia and infiltrate with small bilateral pleural effusion. 22. Extensive coronary artery calcification. 23. Right inguinal hernia, nonobstructed 24. End-stage renal disease, hemodialysis dependent 3 times a week via left upper extremity arteriovenous fistula. 25. History of dementia. 26. Leukocytosis with granulocytosis and normocytic anemia. 27. Lactic acidosis, increased anion gap metabolic acidosis and lactic acidosis. 28. Proteinuria, glycosuria, microscopic hematuria. 29. Possible toxic metabolic encephalopathy secondary to sepsis. 30. Deconditioning. 31. History of diabetic gastroparesis, history of constipation, history of poor compliance, history of hypovitaminosis D, history of prostate hypertrophy, history of constipation, history of insulin-requiring diabetes mellitus, history of dyslipidemia, history of angina, history of diabetic gastroparesis. 1. Possible sepsis with bilateral community-acquired pneumonia and infiltrate. 2. Uncontrolled hypertension with tachycardia. 3. Leukocytosis with granulocytosis. 4. Sepsis with extensive bilateral community-acquired pneumonia and interstitial pneumonia. 5. Small bilateral pleural effusions. 6. Extensive coronary artery calcification. 7. Nonobstructing right inguinal hernia. 8. Dementia. 9. Tachycardia. 10. Leukocytosis with granulocytosis and normocytic anemia. 11. Lactic acidosis. 12. End-stage renal disease, hemodialysis dependent. 13. Increased anion gap metabolic acidosis. 14. Insulin requiring diabetes mellitus. 15. Indeterminate troponin versus questionable non-ST elevation myocardial infarction with elevated troponin of 0.12 in an end-stage renal disease patient. 16. Elevated BNP, probably secondary to volume overload. 17. Proteinuria, glycosuria, microscopic hematuria. 18. Left anterior hemiblock. 19. Right bundle branch block. 20. Bifascicular block. 21. End-stage renal disease, hemodialysis dependent via the left upper extremity arteriovenous fistula. 22. Possible toxic metabolic encephalopathy secondary to sepsis. 23. Non-hemolyzed mild hyperkalemia. 24. Deconditioning. 25. History of diabetic gastroparesis, history of constipation, history of noncompliance, history of hypovitaminosis D, history of prostate hypertrophy, history of constipation, history of insulin-requiring diabetes mellitus, history of dyslipidemia, history of angina, history of diabetic gastroparesis. PLAN: At this time, patient is awaiting for pre-hemodialysis lab. Depending upon the patient's pre-hemodialysis lab, patient will require transfusion of PRBC. CURRENT MEDICATIONS: 1. Mucomyst nebulizer 20% 4 mL q.6 hours with Xopenex nebulizer every 6 hours. 2. Aranesp 100 mcg IV once. 3. Aricept 10 mg at bedtime. 4. Cozaar 100 mg daily, which will be ordered, hold for systolic blood pressure less than or equal to 100 mmHg. 5. Aspirin 81 mg daily. 6. Flomax 0.4 mg daily. 7. Folic acid 1 mg daily. 8. Humulin low dose sliding scale coverage before meals and at bedtime. 9. Imdur 60 mg daily. 10. Lac-Hydrin lotion to the lower extremity daily. 11. Levemir 5 units before meals breakfast and dinner. 12. Lipitor 40 mg daily. 13. Lopressor 50 mg twice a day. 14. MiraLax 17 grams 3 times a day. 15. Nephro-Jaylin 1 tablet daily. 16. Periactin 4 mg twice a day. 17. Protonix 40 mg daily. 18. Renagel 800 mg with meals. 19. Vitamin D3 at 2000 units daily. 20. Xalatan eyedrops. 21. Xopenex nebulizer 0.63 mg q.6 hours. Chest PT ordered. Consistent carbohydrate renal diet ordered. The patient is ordered SAMAN stockings. Transfusion of PRBC ordered. Foot pillow ordered by podiatry. Physical therapy, occupational therapy ordered. The patient is undergoing occupational therapy, physical therapy. Their recommendation is noted. The patient will be considered for completion of TCU stay and upon completion, patient will be considered for discharge home. Dictated and electronically signed, not read. Zeyad Nazario MD cc: [phone] TT: 06/30/2016 14:05:14 Confirmation # [id number] Dictation # [id number] [email or web address]
[2016-06-30] MEDS ORDERED: DARBEPOETIN ALFA 100 MCG IVP ONE (16:28)
[2016-06-30 16:36] LABS: MEAN CELL VOLUME 90.9 fL (80.0-105.0); MEAN CORPUSCULAR HEMOGLOBIN 29.9 pg (25.0-35.0); MEAN CORPUSCULAR HGB CONC 32.9 g/dl (31.0-37.0); MEAN PLATELET VOLUME 11.5 fl (7.0-11.0); RED CELL DISTRIBUTION WIDTH 17.1 % (11.5-14.5); WHITE BLOOD COUNT 6.9 10^3/ul (4.5-11.0)
[2016-06-30 16:38] LABS: ALB/GLOB RATIO 0.9 (1.1-1.8); CALCIUM 8.4 mg/dL (8.4-10.5); MAGNESIUM 2.3 mg/dL (1.7-2.2); PHOSPHOROUS 4.7 mg/dL (2.5-4.5); POTASSIUM 4.2 mmol/L (3.6-5.0); TOTAL PROTEIN 6.8 g/dL (5.8-8.3)
--- NOTE | 2016-06-30 16:41 | PN ---
DATE: 06/28/2016 Redictated progress note. SUBJECTIVE: The patient was seen sitting in chair. He was awake. He is alert. He was complaining of being tired. PHYSICAL EXAMINATION: GENERAL: Elderly male sitting in chair. VITAL SIGNS: Blood pressure 156/76, heart rate 65, respiratory rate 18, temperature 97.8. NECK: Supple, no JVD. LUNGS: Bilateral equal air entry, no rales. EXTREMITIES: No lower extremity edema. LABORATORY DATA: WBC 8.5, hemoglobin 8.6, hematocrit 26, platelets 263. No chemistry. ASSESSMENT: 1. Status post pneumonia, sepsis. 2. Non-insulin dependent diabetes mellitus. 3. Hypertension. 4. End-stage renal disease. 5. History of gastrointestinal bleed. 6. Dementia. PLAN: 1. Physical therapy. 2. Dialysis Tuesday, Tuesday and Tuesday. 3. Continue antibiotics. Brinda Ibarra MD cc: [phone] TT: 06/30/2016 16:41:16 Confirmation # [id number] Dictation # [id number] [id number]
[2016-06-30 16:45] LABS: BILIRUBIN,TOTAL 0.4 mg/dL (0.2-1.3)
[2016-06-30] MEDS: Darbepoetin Alfa 100 mcg/ml Inj IVP SCH (17:27)
--- NOTE | 2016-06-30 18:19 | CP.PCM.PN ---
Subjective - Date & Time of Evaluation Date of Evaluation: 06/30/16 Time of Evaluation: 10:05 - Subjective Subjective: Comfortable in bed, not in distress, afebrile. Objective - Vital Signs/Intake and Output Vital Signs (last 24 hours): Temp Pulse Resp BP Pulse Ox 98.1 F 66 19 139/69 100 06/30/16 15:46 06/30/16 15:46 06/30/16 15:46 06/30/16 15:46 06/30/16 10:00 Intake and Output: 06/30/16 06/30/16 06:59 18:59 Intake Total 790 Balance 790 - Medications Medications: Current Medications Acetylcysteine (Acetylcysteine 20%) 4 ml IH [id number] FRANCISCO JAVIER PRN Reason: Protocol Last Admin: 06/30/16 13:12 Dose: Not Given Aspirin (Ecotrin) 81 mg PO 0800 FRANCISCO JAVIER PRN Reason: Protocol Last Admin: 06/30/16 08:16 Dose: 81 mg Atorvastatin Calcium (Lipitor) 40 mg PO DIN FRANCISCO JAVIER PRN Reason: Protocol Last Admin: 06/29/16 18:00 Dose: 40 mg Cholecalciferol (Vitamin D) 2,000 iu PO DAILY FRANCISCO JAVIER PRN Reason: Protocol Last Admin: 06/30/16 10:10 Dose: 2,000 iu Cyproheptadine HCl (Periactin) 4 mg PO BID FRANCISCO JAVIER Last Admin: 06/30/16 10:10 Dose: 4 mg Darbepoetin Julio (Aranesp) 100 mcg IVP ONCE FRANCISCO JAVIER Last Admin: 06/30/16 17:27 Dose: 100 mcg Donepezil HCl (Aricept) 10 mg PO HS FRANCISCO JAVIER PRN Reason: Protocol Last Admin: 06/29/16 21:42 Dose: 10 mg Folic Acid (Folic Acid) 1 mg PO DAILY FRANCISCO JAVIER PRN Reason: Protocol Last Admin: 06/30/16 10:07 Dose: 1 mg Insulin Detemir (Levemir) 5 unit SC ACBD FRANCISCO JAVIER PRN Reason: Protocol Last Admin: 06/30/16 07:08 Dose: Not Given Insulin Human Regular (Humulin R Low) 0 units SC ACHS FRANCISCO JAVIER PRN Reason: Protocol Last Admin: 06/30/16 12:13 Dose: 2 units Isosorbide Mononitrate (Imdur) 60 mg PO 0600 FRANCISCO JAVIER PRN Reason: Protocol Last Admin: 06/30/16 06:58 Dose: 60 mg Lactic Acid (Lac-Hydrin 12% Cream (140 G)) 0 ea TOP DAILY FRANCISCO JAVIER Last Admin: 06/30/16 10:08 Dose: 1 applic Latanoprost (Xalatan Opht) 1 ml OU HS FRANCISCO JAVIER PRN Reason: Protocol Last Admin: 06/29/16 21:43 Dose: 1 ml Levalbuterol HCl (Xopenex) 0.63 mg IH [id number] FRANCISCO JAVIER PRN Reason: Protocol Last Admin: 06/30/16 13:13 Dose: Not Given Losartan Potassium (Cozaar) 100 mg PO DAILY FRANCISCO JAVIER PRN Reason: Protocol Metoprolol Tartrate (Lopressor) 50 mg PO 0800,1800 FRANCISCO JAVIER PRN Reason: Protocol Last Admin: 06/30/16 08:17 Dose: Not Given Pantoprazole Sodium (Protonix Ec Tab) 40 mg PO 0630 FRANCISCO JAVIER PRN Reason: Protocol Last Admin: 06/30/16 06:58 Dose: 40 mg Polyethylene Glycol (Miralax) 17 gm PO TID FRANCISCO JAVIER PRN Reason: Protocol Last Admin: 06/30/16 14:00 Dose: Not Given Sevelamer HCl (Renagel) 800 mg PO WM FRANCISCO JAVIER PRN Reason: Protocol Last Admin: 06/30/16 12:12 Dose: 800 mg Tamsulosin HCl (Flomax) 0.4 mg PO 1700 FRANCISCO JAVIER PRN Reason: Protocol Last Admin: 06/29/16 18:17 Dose: 0.4 mg Vitamin B Complex/Vit C/Folic Acid (Nephro-Jaylin) 1 tab PO DAILY FRANCISCO JAVIER PRN Reason: Protocol Last Admin: 06/30/16 10:09 Dose: 1 tab - Labs Labs: 06/30/16 14:45 06/30/16 14:45 - Constitutional Appears: Non-toxic, No Acute Distress - Head Exam Head Exam: NORMAL INSPECTION - Neck Exam Neck Exam: absent: Lymphadenopathy, Meningismus - Respiratory Exam Respiratory Exam: Decreased Breath Sounds - Cardiovascular Exam Cardiovascular Exam: +S1, +S2 - GI/Abdominal Exam GI & Abdominal Exam: Soft. absent: Tenderness Assessment and Plan - Assessment and Plan (Free Text) Plan: Assessment S/P sepsis from healthcare-associated pneumonia on top of non-ST elevation ID with acute congestive heart failure, clinically improved and S/P treatment history of GI bleeding ESRD on HD cornoary artery disease Cerebrovascular accident Gastric cancer Mitral valve prolapse Plan completed 7 days of Doxycycline; will continue to monitor off antibiotics since he is at risk for hospital-acquired infections
--- NOTE | 2016-06-30 20:05 | PN ---
DATE: 06/30/2016 SUBJECTIVE: The patient is seen lying in bed in the dialysis unit. He is resting comfortably. He d oes not appear to be in any kind of distress. PHYSICAL EXAMINATION: VITAL SIGNS: Blood pressure 111/62, heart rate 66, respiratory rate 18-19, temperature 98. NECK: Supple. No JVD. LUNGS: Bilateral equal air entry. EXTREMITIES: No lower extremity edema. LABORATORY DATA: No new labs available. ASSESSMENT: 1. Status post pneumonia, sepsis. 2. End-stage renal disease. 3. Dementia. 4. Non-insulin dependent diabetes mellitus. 5. Hypertension. PLAN: 1. Physical therapy. 2. Continue antibiotics. 3. Discharge planning. Brinda Ibarra MD cc: [phone] TT: 06/30/2016 20:04:46 Confirmation # [id number] Dictation # [id number]
[2016-06-30] MEDS: Latanoprost 2.5 ml Opht Soln OU SCH (21:52)
[2016-07-01] MEDS: Acetylcysteine 20% Inhal Soln (4ml) IH SCH ×4 (02:12→20:49)
[2016-07-01] MEDS: Levalbuterol 0.63 MG/3 ML Inhal Soln UD IH SCH ×4 (02:12→20:49)
[2016-07-01] MEDS: Pantoprazole 40 mg EC Tab PO SCH (06:28)
[2016-07-01] MEDS: Insulin Reg-LOW-Coverage SC SCH ×4 (06:29→23:44)
[2016-07-01] MEDS: Insulin Detemir 100 units/ml Vial (Levemir) SC SCH ×2 (06:41→17:02)
[2016-07-01 07:05] LABS: ADD MANUAL DIFF? NO
[2016-07-01 07:22] LABS: BASO # 0.05 K/mm3 (0.0-2.0); BASO % 0.6 % (0.0-3.0); EOS # 0.1 (0.0-0.7); EOS % 1.7 % (1.5-5.0); GRAN # 5.19 (1.4-6.5); GRAN % 63.7 % (50.0-68.0); HEMATOCRIT 29.2 % (42.0-52.0); LYMPH # 1.3 (1.2-3.4); LYMPH % 15.6 % (22.0-35.0); MEAN CELL VOLUME 90.1 fL (80.0-105.0); MEAN CORPUSCULAR HEMOGLOBIN 29.6 pg (25.0-35.0); MEAN CORPUSCULAR HGB CONC 32.9 g/dl (31.0-37.0); MEAN PLATELET VOLUME 11.2 fl (7.0-11.0); MONO # 1.5 (0.1-0.6); MONO % 18.4 % (1.0-6.0); PLATELET COUNT 252 10^3/uL (120.0-450.0); RED CELL DISTRIBUTION WIDTH 17.8 % (11.5-14.5); WHITE BLOOD COUNT 8.2 10^3/ul (4.5-11.0)
[2016-07-01 07:35] LABS: ALB/GLOB RATIO 0.9 (1.1-1.8); BILIRUBIN,TOTAL 0.5 mg/dL (0.2-1.3); CALCIUM 8.5 mg/dL (8.4-10.5); TOTAL PROTEIN 7.1 g/dL (5.8-8.3)
[2016-07-01] MEDS: Multivitamin Vitamin B Complex (Nephro-Vite) Tab PO SCH (10:11)
[2016-07-01] MEDS: POLYETHYLENE GLYCOL 3350 17 GM/Dose PACKET PO SCH ×3 (10:12→17:04)
[2016-07-01] MEDS: Ammonium Lactate 12% Cream (140 g) TOP SCH (10:13)
--- NOTE | 2016-07-01 11:15 | CP.PCM.PN ---
<Mabel Almazan - Last Filed: 07/01/16 11:11> Subjective - Date & Time of Evaluation Date of Evaluation: 07/01/16 Time of Evaluation: 07:00 - Subjective Subjective: 85 year old male patient was seen at bedside this morning concerning Deep tissue injury to Right heel. Patient was resting in bed at the time of visit and denies of any acute overnight distress. AAO x3. No dressing is applied to bilateral lower extremities. Patient still c/o mild pain to Right heel. Patient denies of any N/V/F/C or SOB today Patient's prevlon boots were taken off at the time of visit today. Patient reminded of importance of the use of prevlon boots Objective - Vital Signs/Intake and Output Vital Signs (last 24 hours): Temp Pulse Resp BP Pulse Ox 98.1 F 70 19 133/71 100 06/30/16 15:46 07/01/16 08:43 06/30/16 15:46 07/01/16 08:43 06/30/16 10:00 Intake and Output: 07/01/16 07/01/16 06:59 18:59 Intake Total 420 Balance 420 - Medications Medications: Current Medications Acetylcysteine (Acetylcysteine 20%) 4 ml IH [id number] FRANCISCO JAVIER PRN Reason: Protocol Last Admin: 07/01/16 07:37 Dose: Not Given Aspirin (Ecotrin) 81 mg PO 0800 FRANCISCO JAVIER PRN Reason: Protocol Last Admin: 07/01/16 08:43 Dose: 81 mg Atorvastatin Calcium (Lipitor) 40 mg PO DIN FRANCISCO JAVIER PRN Reason: Protocol Last Admin: 06/30/16 19:37 Dose: 40 mg Cholecalciferol (Vitamin D) 2,000 iu PO DAILY FRANCISCO JAVIER PRN Reason: Protocol Last Admin: 07/01/16 10:11 Dose: 2,000 iu Cyproheptadine HCl (Periactin) 4 mg PO BID FRANCISCO JAVIER Last Admin: 07/01/16 10:11 Dose: 4 mg Darbepoetin Julio (Aranesp) 100 mcg IVP ONCE FRANCISCO JAVIER Last Admin: 06/30/16 17:27 Dose: 100 mcg Donepezil HCl (Aricept) 10 mg PO HS FRANCISCO JAVIER PRN Reason: Protocol Last Admin: 06/30/16 21:52 Dose: 10 mg Folic Acid (Folic Acid) 1 mg PO DAILY FRANCISCO JAVIER PRN Reason: Protocol Last Admin: 07/01/16 10:11 Dose: 1 mg Insulin Detemir (Levemir) 5 unit SC ACBD FRANCISCO JAVIER PRN Reason: Protocol Last Admin: 07/01/16 06:41 Dose: 5 unit Insulin Human Regular (Humulin R Low) 0 units SC ACHS FRANCISCO JAVIER PRN Reason: Protocol Last Admin: 07/01/16 06:29 Dose: Not Given Isosorbide Mononitrate (Imdur) 60 mg PO 0600 FRANCISCO JAVIER PRN Reason: Protocol Last Admin: 07/01/16 06:27 Dose: 60 mg Lactic Acid (Lac-Hydrin 12% Cream (140 G)) 0 ea TOP DAILY FRANCISCO JAVIER Last Admin: 07/01/16 10:13 Dose: 1 applic Latanoprost (Xalatan Opht) 1 ml OU HS FRANCISCO JAIVER PRN Reason: Protocol Last Admin: 06/30/16 21:52 Dose: 1 ml Levalbuterol HCl (Xopenex) 0.63 mg IH [id number] FRANCISCO JAVIER PRN Reason: Protocol Last Admin: 07/01/16 07:37 Dose: Not Given Losartan Potassium (Cozaar) 100 mg PO DAILY FRANCISCO JAVIER PRN Reason: Protocol Last Admin: 07/01/16 10:11 Dose: 100 mg Metoprolol Tartrate (Lopressor) 50 mg PO 0800,1800 FRANCISCO JAVIER PRN Reason: Protocol Last Admin: 07/01/16 08:43 Dose: 50 mg Pantoprazole Sodium (Protonix Ec Tab) 40 mg PO 0630 FRANCISCO JAVIER PRN Reason: Protocol Last Admin: 07/01/16 06:28 Dose: 40 mg Polyethylene Glycol (Miralax) 17 gm PO TID FRANCISCO JAVIER PRN Reason: Protocol Last Admin: 07/01/16 10:12 Dose: 17 gm Sevelamer HCl (Renagel) 800 mg PO WM FRANCISCO JAVIER PRN Reason: Protocol Last Admin: 07/01/16 08:43 Dose: 800 mg Tamsulosin HCl (Flomax) 0.4 mg PO 1700 FRANCISCO JAVIER PRN Reason: Protocol Last Admin: 06/30/16 19:36 Dose: 0.4 mg Vitamin B Complex/Vit C/Folic Acid (Nephro-Jaylin) 1 tab PO DAILY FRANCISCO JAVIER PRN Reason: Protocol Last Admin: 07/01/16 10:11 Dose: 1 tab - Labs Labs: 07/01/16 06:15 07/01/16 06:15 - Constitutional Appears: Well, Non-toxic, No Acute Distress - Extremities Exam Additional comments: Bilateral lower extremities exam DERM: No open wound is noted bilaterally. A small ecchymosis measuring 1cm in diameter is noted to posterior aspect of Right heel consistent with deep tissue injury. Xerosis noted to skin bilaterally. VASC: Non-palpable DP and Pt noted bilaterally. RADIOTELEGRAPHER less than 3 seconds noted to all digits bilaterally. NEURO: Diminished Protective sensation ORTHO: Pain on palpation to the Right heel, plantarly. No pain induced on palpation to Left heel. Pain on passive dorsiflextion of the ankle bilaterally. Decreased ROM to bilateral ankle joints dur to guarding. - Neurological Exam Neurological Exam: Alert, Awake, Oriented x3 - Psychiatric Exam Psychiatric exam: Normal Affect, Normal Mood - Skin Skin Exam: Normal Color, Warm Assessment and Plan - Assessment and Plan (Free Text) Assessment: 85 year old male patient presents with Right heel deep tissue injury, bilateral Xerosis to skin lower extremities Plan: Patient was seen, evaluated and treated at bedside labs and vitals reviewed discussed in detail with Dr. Stein Continue applying lotion to bilateral lower extremities Prevelon boots applied bilaterally to prevent decubitus heel ulcers Patient educated again for importance of keeping prevlon boots applied to prevent further progression of DTI Podiatry will continue to follow in-house <Winston Harris - Last Filed: 07/03/16 08:18> Objective - Vital Signs/Intake and Output Vital Signs (last 24 hours): Temp Pulse Resp BP Pulse Ox 98.2 F 66 18 120/53 L 93 L 07/02/16 10:00 07/02/16 10:00 07/02/16 10:00 07/02/16 10:00 07/02/16 10:00 - Labs Labs: 07/01/16 06:15 07/01/16 06:15 Attending/Attestation - Attestation I have personally seen and examined this patient.: Yes I have fully participated in the care of the patient.: Yes I have reviewed all pertinent clinical information, including history, physical exam and plan: Yes
--- NOTE | 2016-07-01 13:26 | PN ---
DATE: 07/01/2016 SUBJECTIVE: The patient is in a chair in the TCU. He is participating with physical therapy without issues. There is no chest pain. PHYSICAL EXAMINATION: VITAL SIGNS: Blood pressure is 133/71, the heart rate is in the 70s. NECK: Negative JVD. LUNGS: Without rales. HEART: Reveals S1, S2. EXTREMITIES: Without edema. LABORATORY DATA: The hemoglobin is 9.6. Chemistries: Glucose is 125. IMPRESSION: 1. Status post non-ST segment elevation myocardial infarction, treated medically. 2. Stable angina. 3. End-stage renal disease. 4. Coronary artery disease. 5. History of cerebrovascular accident in the past. 6. Sepsis. PLAN: Given these findings, the patient is doing better after IV antibiotics and physical therapy. We will continue his treatment of his non-STEMI with aspirin and beta blockers. Jamin Dewey MD cc: [id number] TT: 07/01/2016 13:25:27 Confirmation # [id number] Dictation # [id number] sn
[2016-07-01 14:15] VITALS: RESP 18
[2016-07-01] MEDS: Darbepoetin Alfa 100 mcg/ml Inj IVP SCH (17:03)
[2016-07-01] MEDS: Latanoprost 2.5 ml Opht Soln OU SCH (23:19)
[2016-07-02] MEDS: Levalbuterol 0.63 MG/3 ML Inhal Soln UD IH SCH ×3 (02:19→13:10)
[2016-07-02] MEDS: Acetylcysteine 20% Inhal Soln (4ml) IH SCH ×3 (02:19→13:10)
[2016-07-02] MEDS: Insulin Reg-LOW-Coverage SC SCH ×2 (06:30→14:57)
[2016-07-02] MEDS: Insulin Detemir 100 units/ml Vial (Levemir) SC SCH (06:31)
[2016-07-02] MEDS: POLYETHYLENE GLYCOL 3350 17 GM/Dose PACKET PO SCH ×2 (09:48→14:57)
[2016-07-02] MEDS: Multivitamin Vitamin B Complex (Nephro-Vite) Tab PO SCH (09:48)
[2016-07-02] MEDS: Ammonium Lactate 12% Cream (140 g) TOP SCH (09:48)
--- NOTE | 2016-07-02 10:29 | PN ---
DATE: 07/02/2016 The patient is in a chair without shortness of breath, without chest pain. PHYSICAL EXAMINATION: VITAL SIGNS: Blood pressure is 133/60, the heart rate is in the 70s. NECK: Negative JVD. LUNGS: Without rales. HEART: Reveals S1, S2. EXTREMITIES: Without edema. LABORATORIES: Hemoglobin is 9.6. Chemistries were not done today. IMPRESSION: 1. Recent ebj-BT-udljzjgpz myocardial infarction. 2. Lcp-SW-hltjvzfbu myocardial infarction treated well with medical therapy. 3. End-stage renal disease. 4. Coronary artery disease. 5. History of cerebrovascular accident. PLAN: Given these findings, the patient is doing well. The patient is scheduled for discharge this week. Jamin Dewey MD cc: [id number] TT: 07/02/2016 10:29:17 Confirmation # [id number] Dictation # [id number] mn
[2016-07-02 11:03] VITALS: BP 120/53; PULSE 66; TEMP 98.2; O2SAT 93
--- NOTE | 2016-07-02 14:09 | PN ---
DATE: 07/02/2016 SUBJECTIVE: The patient is seen sitting in chair. He is awake, he is alert, he is comfortable. He denies any pain. PHYSICAL EXAMINATION: GENERAL: Elderly male, sitting in chair. VITAL SIGNS: Blood pressure 120/53, heart rate 66, respiratory rate 18, temperature 98. HEENT: Normocephalic, atraumatic, positive pallor. NECK: Supple, no JVD. LUNGS: Bilateral equal air entry, no rales. EXTREMITIES: No lower extremity edema. LABORATORY DATA: WBC 8.2, hemoglobin 9.6, hematocrit 29, platelets 252. Sodium 140, potassium 4.0, chloride 101, CO2 29, BUN 30, creatinine 6.1, glucose 103, calcium 8.5. ASSESSMENT: 1. Resolving sepsis. 2. Resolving bilateral pneumonia. 3. Dementia. 4. History of gastrointestinal bleed. 5. End-stage renal disease. PLAN: 1. Dialysis today. 2. Continue physical therapy. 3. Continue current management. Brinda Ibarra MD cc: [id number] TT: 07/02/2016 14:08:29 Confirmation # [id number] Dictation # [id number] en
--- NOTE | 2016-07-14 14:19 | PN ---
DATE: 07/01/2016 The patient is seen in room 318, bed 1. The patient is alert, awake, responsive. Overnight nurse's notes were reviewed. No adverse event was documented. The patient was given packed RBC on 06/30/2016. The patient was found to be without any ____. The patient had no complaints of shortness of breath or chest pain. PHYSICAL EXAMINATION: VITAL SIGNS: T-max 98.3. Pulse is 66-74. Blood pressure is averaging 120s, 130s systolic and 60s and 70s. Respiration 18. O2 sat in the last 24 hours 96- 100%. HEAD: Normocephalic, atraumatic. HEENT: Shows pinkish, pale conjunctivae; anicteric sclerae. No oropharyngeal lesion. NECK: No neck rigidity. CHEST: Kyphosis. LUNGS: Shows positive rhonchi upper lung chaney bilaterally. CARDIOVASCULAR: S1, S2, regular rhythm. Positive systolic murmur right second intercostal space, left sternal border, left second intercostal space. ABDOMEN: Soft, positive bowel sounds, nontender. GENITALIA: Male. RECTAL: Deferred. EXTREMITIES: Show positive left upper extremity AV fistula, positive thrill. Lower extremities show no pitting edema, no calf tenderness, no Homans signs. NEUROLOGIC: The patient is alert, awake, oriented x 3. Cranial nerves II-XII limited. Gait examination not tested. MUSCULOSKELETAL: Shows a body mass index of 23.3. VASCULAR: Palpable pulses. PSYCHIATRIC: Positive for dementia. DIAGNOSTICS: 07/01/2016: WBC 8.2, hemoglobin and hematocrit are 9.6 and 29.2, platelet 252. Sodium 140, potassium 4.0, chloride 101, CO2 29, anion gap 14, BUN 30, creatinine 6.1, GFR 11, glucose 103, calcium 8.5. LFTs are normal. IMPRESSION: 1. Deconditioning. 2. Gait dysfunction. 3. Possible sepsis with systemic inflammatory response syndrome with multilobar bilateral healthcare-associated pneumonia. 4. Hypertension. 5. Normocytic anemia. 6. Status post packed red blood cell transfusion. 7. End-stage renal disease, hemodialysis dependent. 8. Insulin-requiring diabetes mellitus with hyperglycemia. 9. History of dementia. 10. Left upper extremity arteriovenous fistula. 1. Deconditioning. 2. Gait dysfunction. 3. Possible sepsis with systemic inflammatory response syndrome with multilobar bilateral healthcare associated pneumonia. 4. Acute non-ST elevation myocardial infarction with elevated troponin. 5. Asymptomatic transient hypotension. 6. Deconditioning. 7. Gait dysfunction. 8. Insulin-requiring type 1 diabetes mellitus. 9. Normocytic anemia. 10. Insulin requiring diabetes mellitus. 11. Non-hemolyzed hyperkalemia. 12. End-stage renal disease, hemodialysis dependent. 13. Hyperphosphatemia. 14. Secondary hyperparathyroidism. 15. Dementia. 16. History of hypertension. 17. Prostatic hypertrophy. 18. Constipation. 19. Anorexia. 20. Hypovitaminosis D. 21. Right heel deep tissue injury with bilateral ____ to the lower extremity skin. 1. Deconditioning. 2. Gait dysfunction. 3. Systemic inflammatory response syndrome with possible sepsis with multiple bilateral multilobar healthcare-associated pneumonia. 4. Acute non-ST elevation myocardial infarction with elevated troponin. 5. Transient hypotension. 6. Dementia. 7. Normocytic anemia with decreasing hemoglobin and hematocrit. 8. Non-hemolyzed hyperkalemia. 9. End-stage renal disease, hemodialysis dependent 3 times a week. 10. Insulin requiring diabetes mellitus. 11. Hyperphosphatemia. 12. B positive blood type. 13. History of dementia. 14. History of poor compliance and noncompliance with medication and diet. 15. Secondary hyperparathyroidism with hyperphosphatemia. 16. 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 17. Elongated mycotic dystrophic toenails. 1. Deconditioning. 2. Gait dysfunction. 3. Systemic inflammatory response syndrome with possible sepsis with multilobar healthcare-associated pneumonia. 4. Acute yqw-UH-gyuuzykub myocardial infarction with elevated troponin. 5. End-stage renal disease, hemodialysis dependent 3 times a week. 6. Dementia. 7. Insulin-requiring type 1 diabetes mellitus. 8. Diabetic neuropathy. 9. Sepsis secondary to healthcare-associated multilobar pneumonia with acute qse-TZ-syedfbbyp myocardial infarction. 10. Hypertension. 10. Normocytic anemia. 11. End-stage renal disease, hemodialysis dependent. 12. Dementia. 13. Hypertension. 14. Questionable anorexia. 15. Prostatic hypertrophy. 16. Deconditioning. 1. Deconditioning. 2. Gait dysfunction. 3. Systemic inflammatory response syndrome with possible sepsis, with multilobar healthcare-associated pneumonia. 4. Non-ST elevation myocardial infarction with elevated troponin. 5. Tachycardia 6. Chron...Anemia of chronic disease, chronic kidney disease, normocytic anemia. 7. Secondary hyperparathyroidism with hyperphosphatemia. 8. Insulin-requiring type 1 diabetes mellitus. 9. Hypertension. 10. Sepsis secondary to multilobar healthcare-associated pneumonia with non-ST elevation myocardial infarction. 11. Dementia. 12. Hypertension. 13. Prostatic hypertrophy. 14. Insulin requiring type 1 diabetes mellitus. 15. Dyslipidemia. 16. History of constipation. 17. Poor appetite and anorexia. 18. Diabetic gastroparesis. 19. Hypovitaminosis D. 1. Gait dysfunction. 2. Deconditioning. 3. Poor compliance and noncompliance with medication. 4. Hypertension. 5. Tachycardia. 6. Systemic inflammatory response syndrome with possible sepsis with healthcare -associated multilobar pneumonia. 7. Non-ST elevation myocardial infarction. 8. End-stage renal disease, hemodialysis dependent. 9. Insulin-requiring diabetes mellitus. 10. Dementia. 11. Hypertension. 12. Prostatitic hypertrophy. 13. Insulin-requiring diabetes mellitus. 14. Dyslipidemia. 15. Constipation. 16. Diabetic gastroparesis. 17. Hypovitaminosis D. 18. Deconditioning. 19. Feeding and eating dysfunction. 1. Systemic inflammatory response syndrome with possible sepsis from bilateral healthcare-associated multilobar pneumonia. 2. Acute pxh-UN-pqwsotdln myocardial infarction with elevated troponin. 3. Tachycardia. 4. Transient uncontrolled hypertension. 5. Leukocytosis with granulocytosis. 6. Normocytic anemia. 7. Lactic acidosis. 8. End-stage renal disease, hemodialysis dependent. 9. Insulin-requiring diabetes mellitus. 10. Acute urp-LD-yppvdhcoa myocardial infarction with elevated troponin. 11. Proteinuria, glycosuria, microscopic hematuria. 12. History of dementia. 1. Systemic inflammatory response syndrome with possible sepsis with healthcare -associated bilateral multilobar pneumonia. 2. Acute non-ST elevation myocardial infarction with elevated troponin. 3. Bifascicular block, right bundle branch block and left anterior hemiblock and first degree AV block. 4. Hypertension. 5. Tachycardia. 6. Questionable feeding dysfunction versus noncompliance and poor compliance with medication and diet. 7. Leukocytosis with granulocytosis. 8. Normocytic anemia. 9. Lactic acidosis. 10. Insulin-requiring diabetes mellitus. 11. Proteinuria, glycosuria, microscopic hematuria. 12. Questionable lateral coronary ischemic changes on the EKG. 13. End-stage renal disease, hemodialysis dependent 3 times a week via the left upper extremity arteriovenous fistula. 14. Dementia. 15. Deconditioning 16. Gait dysfunction. 17. Insulin-requiring diabetes mellitus. 18. Coronary artery disease with angioplasty. 19. Prostatic hypertrophy. 20. Insulin-requiring diabetes mellitus. 21. Dyslipidemia. 22. Constipation. 23. Secondary hyperparathyroidism. 24. Hypovitaminosis D. 1. Questionable and possible sepsis with bilateral community-acquired extensive pneumonia and interstitial pneumonia. 2. Uncontrolled hypertension. 3. Tachycardia. 4. Dementia. 5. Poor compliance with diet and medication. 6. Leukocytosis with granulocytosis. 7. Normocytic anemia. 8. Lactic acidosis. 9. Nonhemolyzed hyperkalemia. 10. End-stage renal disease, hemodialysis dependent. 11. Increased anion gap metabolic acidosis. 12. Hyperphosphatemia. 13. Questionable acute acq-RR-vmzmvlyou myocardial infarction with elevated troponin and lateral coronary ischemic changes on the EKG in lead I, aVL, and V3 -V6. 14. Bifascicular block with left anterior hemiblock and right bundle branch block. 15. Elevated BNP, probably secondary to volume overload. 16. Possible acute zbs-XI-zgugwnjxo myocardial infarction with elevated troponin and lateral ischemic changes on the EKG. 17. Proteinuria, glycosuria, microscopic hematuria. 18. Insulin-requiring diabetes mellitus. 19. Hyperphosphatemia. 20. Granulocytosis. 21. Extensive bilateral interstitial pneumonia and infiltrate with small bilateral pleural effusion. 22. Extensive coronary artery calcification. 23. Right inguinal hernia, nonobstructed 24. End-stage renal disease, hemodialysis dependent 3 times a week via left upper extremity arteriovenous fistula. 25. History of dementia. 26. Leukocytosis with granulocytosis and normocytic anemia. 27. Lactic acidosis, increased anion gap metabolic acidosis and lactic acidosis. 28. Proteinuria, glycosuria, microscopic hematuria. 29. Possible toxic metabolic encephalopathy secondary to sepsis. 30. Deconditioning. 31. History of diabetic gastroparesis, history of constipation, history of poor compliance, history of hypovitaminosis D, history of prostate hypertrophy, history of constipation, history of insulin-requiring diabetes mellitus, history of dyslipidemia, history of angina, history of diabetic gastroparesis. 1. Possible sepsis with bilateral community-acquired pneumonia and infiltrate. 2. Uncontrolled hypertension with tachycardia. 3. Leukocytosis with granulocytosis. 4. Sepsis with extensive bilateral community-acquired pneumonia and interstitial pneumonia. 5. Small bilateral pleural effusions. 6. Extensive coronary artery calcification. 7. Nonobstructing right inguinal hernia. 8. Dementia. 9. Tachycardia. 10. Leukocytosis with granulocytosis and normocytic anemia. 11. Lactic acidosis. 12. End-stage renal disease, hemodialysis dependent. 13. Increased anion gap metabolic acidosis. 14. Insulin requiring diabetes mellitus. 15. Indeterminate troponin versus questionable non-ST elevation myocardial infarction with elevated troponin of 0.12 in an end-stage renal disease patient. 16. Elevated BNP, probably secondary to volume overload. 17. Proteinuria, glycosuria, microscopic hematuria. 18. Left anterior hemiblock. 19. Right bundle branch block. 20. Bifascicular block. 21. End-stage renal disease, hemodialysis dependent via the left upper extremity arteriovenous fistula. 22. Possible toxic metabolic encephalopathy secondary to sepsis. 23. Non-hemolyzed mild hyperkalemia. 24. Deconditioning. 25. History of diabetic gastroparesis, history of constipation, history of noncompliance, history of hypovitaminosis D, history of prostate hypertrophy, history of constipation, history of insulin-requiring diabetes mellitus, history of dyslipidemia, history of angina, history of diabetic gastroparesis. The patient will be continued on the therapeutic interventions as per the MAR. MEDICATIONS: The patient will be continued on: 1. Mucomyst nebulizer treatment with Xopenex nebulizer treatment ____ every 6 hours. 2. Aranesp as needed on hemodialysis. 3. Aricept 10 mg at bedtime. 4. Cozaar will be 100 mg daily to be held for systolic blood pressure less than or equal to 100. 5. Aspirin 81 daily. 6. Flomax 0.4 mg daily. 7. Folic acid 1 mg daily. 8. Humulin low dose sliding scale coverage a.c. and at bedtime. 9. Imdur 60 mg daily. 10. Lac-Hydrin lotion to both lower extremities. 11. Levemir 5 units with breakfast and dinner. 12. Lipitor 40 daily. 13. Lopressor 50 mg twice a day. 14. MiraLax 17 grams 3 times a day. 15. Nephro-Jaylin 1 tablet daily. 16. Periactin 4 mg twice a day. 17. Protonix 40 mg daily. 18. Renagel 800 mg with meals. 19. Vitamin D3 2000 international units daily. 20. Xalatan eyedrops. At present, patient will be continued on above therapeutic intervention. The patient will complete the TCU stay and the patient will be discharged upon completion of TCU stay. Dictated and electronically signed; not read. Zeyad Nazario MD cc: [id number] TT: 07/01/2016 14:18:26 Confirmation # [id number] Dictation # [id number] victor manuel GUIDRY
--- NOTE | 2016-07-29 23:12 | DS ---
DATE OF ADMISSION: 06/24/2016 DATE OF DISCHARGE: 07/02/2016 The patient was seen in room 318, bed 1, and also in hemodialysis. The overnight nurse's notes were reviewed. The patient was found to be alert, awake , oriented, without any adverse event. The patient was seen by the social worker psychiatric. The patient will continue on outpatient hemodialysis Tuesday, Tuesday and Tuesday at [facility]. The patient . PHYSICAL EXAMINATION: VITAL SIGNS: T-max 98.2, pulse 66, blood pressure 120/53, respiration 18, O2 sat 93%. HEAD: Normocephalic, atraumatic. HEENT: Shows pinkish, pale conjunctivae, anicteric sclerae, no oropharyngeal lesion. NECK: No neck rigidity. Questionable soft carotid bruit. CHEST: Kyphosis. LUNGS: Shows occasional rhonchi upper lung field which clears up with coughing. CARDIOVASCULAR: Shows S1, S2, regular rhythm. Questionable soft systolic murmur left sternal border, right second intercostal space. ABDOMEN: Soft, positive bowel sounds, nontender. GENITALIA: Male. RECTAL: Deferred. EXTREMITIES: Shows positive left upper extremity AV fistula, positive thrill. Lower extremity examination does not show any pitting edema, no calf tenderness , no Homans' sign. NEUROLOGIC: The patient is alert, awake, oriented x 3. Cranial nerves II-XII limited. GAIT: Not tested. MUSCULOSKELETAL: Shows a body mass at 23.3. DIAGNOSTICS: None from 07/02/2016. On 07/01/2016, diagnostics reviewed. WBC 8.2, hemoglobin/hematocrit 9.6 and 29.2, platelet 252. Sodium 140, potassium 4.0, chloride 101, CO2 of 29, anion gap 14, BUN 30, creatinine 6.1, GFR 11. Fingerstick blood sugar 227, 126, 139, 95, 122. Calcium 8.5. LFTs are normal. The patient received transfusion of 1 unit of PRBC on 06/30/2016. IMPRESSION AND PLAN: 1. Deconditioning. 2. Gait dysfunction. 3. End-stage renal disease, hemodialysis dependent. 4. Possible sepsis versus systemic inflammatory response syndrome with multilobar bilateral healthcare associated pneumonia. 5. Acute non-ST elevation myocardial infarction with elevated troponin. 6. Asymptomatic transient hypotension. 7. Anemia. 8. Status post packed red blood cell transfusion x 1. 9. Insulin requiring type 1 diabetes mellitus. 10. Non-hemolyzed hyperkalemia. 11. Secondary hyperparathyroidism. 12. Dementia. 13. Prostatic hypertrophy. 14. Constipation. 15. Anorexia. 16. Hypovitaminosis D. 17. Right heel deep tissue injury with bilateral onychomycosis of the skin of the lower extremity. 18. Anemia of chronic kidney disease. 19. Dyslipidemia. 20. Hypovitaminosis D. 21. Dementia. 22. Insulin-requiring diabetes mellitus. 23. Diabetic gastroparesis. 24. History of constipation. 25. Prostatic hypertrophy. 26. Deconditioning. 1. Deconditioning. 2. Gait dysfunction. 3. Possible sepsis with systemic inflammatory response syndrome with multilobar bilateral healthcare-associated pneumonia. 4. Hypertension. 5. Normocytic anemia. 6. Status post packed red blood cell transfusion. 7. End-stage renal disease, hemodialysis dependent. 8. Insulin-requiring diabetes mellitus with hyperglycemia. 9. History of dementia. 10. Left upper extremity arteriovenous fistula. 1. Deconditioning. 2. Gait dysfunction. 3. Possible sepsis with systemic inflammatory response syndrome with multilobar bilateral healthcare associated pneumonia. 4. Acute non-ST elevation myocardial infarction with elevated troponin. 5. Asymptomatic transient hypotension. 6. Deconditioning. 7. Gait dysfunction. 8. Insulin-requiring type 1 diabetes mellitus. 9. Normocytic anemia. 10. Insulin requiring diabetes mellitus. 11. Non-hemolyzed hyperkalemia. 12. End-stage renal disease, hemodialysis dependent. 13. Hyperphosphatemia. 14. Secondary hyperparathyroidism. 15. Dementia. 16. History of hypertension. 17. Prostatic hypertrophy. 18. Constipation. 19. Anorexia. 20. Hypovitaminosis D. 21. Right heel deep tissue injury with bilateral ____ to the lower extremity skin. 1. Deconditioning. 2. Gait dysfunction. 3. Systemic inflammatory response syndrome with possible sepsis with multiple bilateral multilobar healthcare-associated pneumonia. 4. Acute non-ST elevation myocardial infarction with elevated troponin. 5. Transient hypotension. 6. Dementia. 7. Normocytic anemia with decreasing hemoglobin and hematocrit. 8. Non-hemolyzed hyperkalemia. 9. End-stage renal disease, hemodialysis dependent 3 times a week. 10. Insulin requiring diabetes mellitus. 11. Hyperphosphatemia. 12. B positive blood type. 13. History of dementia. 14. History of poor compliance and noncompliance with medication and diet. 15. Secondary hyperparathyroidism with hyperphosphatemia. 16. 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 17. Elongated mycotic dystrophic toenails. 1. Deconditioning. 2. Gait dysfunction. 3. Systemic inflammatory response syndrome with possible sepsis with multilobar healthcare-associated pneumonia. 4. Acute nua-EP-wivqemipb myocardial infarction with elevated troponin. 5. End-stage renal disease, hemodialysis dependent 3 times a week. 6. Dementia. 7. Insulin-requiring type 1 diabetes mellitus. 8. Diabetic neuropathy. 9. Sepsis secondary to healthcare-associated multilobar pneumonia with acute rfv-PN-tmxcmfgjj myocardial infarction. 10. Hypertension. 10. Normocytic anemia. 11. End-stage renal disease, hemodialysis dependent. 12. Dementia. 13. Hypertension. 14. Questionable anorexia. 15. Prostatic hypertrophy. 16. Deconditioning. 1. Deconditioning. 2. Gait dysfunction. 3. Systemic inflammatory response syndrome with possible sepsis, with multilobar healthcare-associated pneumonia. 4. Non-ST elevation myocardial infarction with elevated troponin. 5. Tachycardia 6. Chron...Anemia of chronic disease, chronic kidney disease, normocytic anemia. 7. Secondary hyperparathyroidism with hyperphosphatemia. 8. Insulin-requiring type 1 diabetes mellitus. 9. Hypertension. 10. Sepsis secondary to multilobar healthcare-associated pneumonia with non-ST elevation myocardial infarction. 11. Dementia. 12. Hypertension. 13. Prostatic hypertrophy. 14. Insulin requiring type 1 diabetes mellitus. 15. Dyslipidemia. 16. History of constipation. 17. Poor appetite and anorexia. 18. Diabetic gastroparesis. 19. Hypovitaminosis D. 1. Gait dysfunction. 2. Deconditioning. 3. Poor compliance and noncompliance with medication. 4. Hypertension. 5. Tachycardia. 6. Systemic inflammatory response syndrome with possible sepsis with healthcare -associated multilobar pneumonia. 7. Non-ST elevation myocardial infarction. 8. End-stage renal disease, hemodialysis dependent. 9. Insulin-requiring diabetes mellitus. 10. Dementia. 11. Hypertension. 12. Prostatitic hypertrophy. 13. Insulin-requiring diabetes mellitus. 14. Dyslipidemia. 15. Constipation. 16. Diabetic gastroparesis. 17. Hypovitaminosis D. 18. Deconditioning. 19. Feeding and eating dysfunction. 1. Systemic inflammatory response syndrome with possible sepsis from bilateral healthcare-associated multilobar pneumonia. 2. Acute rmj-BE-yylumjwut myocardial infarction with elevated troponin. 3. Tachycardia. 4. Transient uncontrolled hypertension. 5. Leukocytosis with granulocytosis. 6. Normocytic anemia. 7. Lactic acidosis. 8. End-stage renal disease, hemodialysis dependent. 9. Insulin-requiring diabetes mellitus. 10. Acute dex-RC-iszanmoyu myocardial infarction with elevated troponin. 11. Proteinuria, glycosuria, microscopic hematuria. 12. History of dementia. 1. Systemic inflammatory response syndrome with possible sepsis with healthcare -associated bilateral multilobar pneumonia. 2. Acute non-ST elevation myocardial infarction with elevated troponin. 3. Bifascicular block, right bundle branch block and left anterior hemiblock and first degree AV block. 4. Hypertension. 5. Tachycardia. 6. Questionable feeding dysfunction versus noncompliance and poor compliance with medication and diet. 7. Leukocytosis with granulocytosis. 8. Normocytic anemia. 9. Lactic acidosis. 10. Insulin-requiring diabetes mellitus. 11. Proteinuria, glycosuria, microscopic hematuria. 12. Questionable lateral coronary ischemic changes on the EKG. 13. End-stage renal disease, hemodialysis dependent 3 times a week via the left upper extremity arteriovenous fistula. 14. Dementia. 15. Deconditioning 16. Gait dysfunction. 17. Insulin-requiring diabetes mellitus. 18. Coronary artery disease with angioplasty. 19. Prostatic hypertrophy. 20. Insulin-requiring diabetes mellitus. 21. Dyslipidemia. 22. Constipation. 23. Secondary hyperparathyroidism. 24. Hypovitaminosis D. 1. Questionable and possible sepsis with bilateral community-acquired extensive pneumonia and interstitial pneumonia. 2. Uncontrolled hypertension. 3. Tachycardia. 4. Dementia. 5. Poor compliance with diet and medication. 6. Leukocytosis with granulocytosis. 7. Normocytic anemia. 8. Lactic acidosis. 9. Nonhemolyzed hyperkalemia. 10. End-stage renal disease, hemodialysis dependent. 11. Increased anion gap metabolic acidosis. 12. Hyperphosphatemia. 13. Questionable acute rcw-ML-ibhonevkv myocardial infarction with elevated troponin and lateral coronary ischemic changes on the EKG in lead I, aVL, and V3 -V6. 14. Bifascicular block with left anterior hemiblock and right bundle branch block. 15. Elevated BNP, probably secondary to volume overload. 16. Possible acute fdi-QG-qxsxnekcj myocardial infarction with elevated troponin and lateral ischemic changes on the EKG. 17. Proteinuria, glycosuria, microscopic hematuria. 18. Insulin-requiring diabetes mellitus. 19. Hyperphosphatemia. 20. Granulocytosis. 21. Extensive bilateral interstitial pneumonia and infiltrate with small bilateral pleural effusion. 22. Extensive coronary artery calcification. 23. Right inguinal hernia, nonobstructed 24. End-stage renal disease, hemodialysis dependent 3 times a week via left upper extremity arteriovenous fistula. 25. History of dementia. 26. Leukocytosis with granulocytosis and normocytic anemia. 27. Lactic acidosis, increased anion gap metabolic acidosis and lactic acidosis. 28. Proteinuria, glycosuria, microscopic hematuria. 29. Possible toxic metabolic encephalopathy secondary to sepsis. 30. Deconditioning. 31. History of diabetic gastroparesis, history of constipation, history of poor compliance, history of hypovitaminosis D, history of prostate hypertrophy, history of constipation, history of insulin-requiring diabetes mellitus, history of dyslipidemia, history of angina, history of diabetic gastroparesis. 1. Possible sepsis with bilateral community-acquired pneumonia and infiltrate. 2. Uncontrolled hypertension with tachycardia. 3. Leukocytosis with granulocytosis. 4. Sepsis with extensive bilateral community-acquired pneumonia and interstitial pneumonia. 5. Small bilateral pleural effusions. 6. Extensive coronary artery calcification. 7. Nonobstructing right inguinal hernia. 8. Dementia. 9. Tachycardia. 10. Leukocytosis with granulocytosis and normocytic anemia. 11. Lactic acidosis. 12. End-stage renal disease, hemodialysis dependent. 13. Increased anion gap metabolic acidosis. 14. Insulin requiring diabetes mellitus. 15. Indeterminate troponin versus questionable non-ST elevation myocardial infarction with elevated troponin of 0.12 in an end-stage renal disease patient. 16. Elevated BNP, probably secondary to volume overload. 17. Proteinuria, glycosuria, microscopic hematuria. 18. Left anterior hemiblock. 19. Right bundle branch block. 20. Bifascicular block. 21. End-stage renal disease, hemodialysis dependent via the left upper extremity arteriovenous fistula. 22. Possible toxic metabolic encephalopathy secondary to sepsis. 23. Non-hemolyzed mild hyperkalemia. 24. Deconditioning. 25. History of diabetic gastroparesis, history of constipation, history of noncompliance, history of hypovitaminosis D, history of prostate hypertrophy, history of constipation, history of insulin-requiring diabetes mellitus, history of dyslipidemia, history of angina, history of diabetic gastroparesis. PLAN: At this time, the patient is cleared for discharge after hemodialysis. DISCHARGE MEDICATIONS: 1. Aspirin 81 mg p.o. daily. 2. Lipitor 40 mg daily. 3. Vitamin D2 50,000 units weekly. 4. Aricept 10 mg at bedtime. 5. Folic acid 1 mg daily. 6. Levemir 5 units twice a day. 7. Imdur 60 mg daily. 8. Linzess 145 mcg daily. 9. Cozaar 100 mg daily. 10. Reglan 5 mg q.i.d. p.r.n. 11. Bystolic 5 mg daily. 12. Prilosec 40 mg daily. 13. Protonix 40 mg daily. 14. MiraLax 17 grams up to 2-3 times a day p.r.n. 15. Renagel/sevelamer 800 mg 3 times a day. 16. Flomax 0.4 mg daily. 17. Travatan eye drops. 18. 1 tablet daily. The patient is discharged home. The patient's case is referred to [facility] home health aide, home PT. The patient is to resume all home medication. DISCHARGE FOLLOWUP: With Dr. Nazario within 1 week and the patient is advised to follow up for the hemodialysis Tuesday, Tuesday and Tuesday. Time spend in the entire discharge process more than 45 minutes. Zeyad Nazario MD cc: [phone] TT: 07/02/2016 23:11:16 victor manuel GUIDRY
== END 2016-07-02 16:45 | disposition home or self-care (01) | DRG 555 ==
LOC: TRCU 17:52
PROVIDERS: ADMIT Internal Medicine; ATTEND Internal Medicine
PROC: 3E0F7GC Introduction of Other Therapeutic Substance into Respiratory Tract, Via Natural or Artificial Opening (ICD-10-PCS; 2016-06-24)
PROC: F07Z9FZ Gait Training/Functional Ambulation Treatment using Assistive, Adaptive, Supportive or Protective Equipment (ICD-10-PCS; principal; 2016-06-25)
PROC: F08Z4FZ Home Management Treatment using Assistive, Adaptive, Supportive or Protective Equipment (ICD-10-PCS; 2016-06-25)
DX: R26.2 Difficulty in walking, not elsewhere classified (principal); A41.9 Sepsis, unspecified organism; J18.9 Pneumonia, unspecified organism; I21.4 Non-ST elevation (NSTEMI) myocardial infarction; I13.2 Hypertensive heart and chronic kidney disease with heart failure and with stage 5 chronic kidney disease, or end stage renal disease; N18.6 End stage renal disease; E11.22 Type 2 diabetes mellitus with diabetic chronic kidney disease; I27.2 Other secondary pulmonary hypertension; N25.81 Secondary hyperparathyroidism of renal origin; E11.43 Type 2 diabetes mellitus with diabetic autonomic (poly)neuropathy; K31.84 Gastroparesis; I50.9 Heart failure, unspecified; E78.5 Hyperlipidemia, unspecified; E55.9 Vitamin D deficiency, unspecified; K59.00 Constipation, unspecified; F03.90 Unspecified dementia, unspecified severity, without behavioral disturbance, psychotic disturbance, mood disturbance, and anxiety; I25.119 Atherosclerotic heart disease of native coronary artery with unspecified angina pectoris; E78.00 Pure hypercholesterolemia, unspecified; Z99.2 Dependence on renal dialysis; I08.3 Combined rheumatic disorders of mitral, aortic and tricuspid valves; D63.1 Anemia in chronic kidney disease; N40.0 Benign prostatic hyperplasia without lower urinary tract symptoms; K21.9 Gastro-esophageal reflux disease without esophagitis; R63.0 Anorexia; Y95 Nosocomial condition; Z91.14 Patient's other noncompliance with medication regimen; Z91.11 Patient's noncompliance with dietary regimen; Z86.73 Personal history of transient ischemic attack (TIA), and cerebral infarction without residual deficits; Z85.028 Personal history of other malignant neoplasm of stomach; Z79.84 Long term (current) use of oral hypoglycemic drugs; Z79.4 Long term (current) use of insulin; Z87.11 Personal history of peptic ulcer disease; Z87.891 Personal history of nicotine dependence

== ENCOUNTER 2016-08-02 12:04 | Observation (INO) | payer MEDICARE, BC ==
[2016-08-02 12:14] VITALS: RESP 18
[2016-08-02 12:17] VITALS: BMI 23.2
--- NOTE | 2016-08-02 12:38 | ED PDOC ---
Arrival/HPI <Ang Lujan DO - Last Filed: 08/02/16 18:06> - General Historian: Patient EM Caveat: Dementia - History of Present Illness Time/Duration: Prior to Arrival Symptom Onset: Gradual Symptom Course: Unchanged <Jonathan Davis - Last Filed: 08/02/16 18:45> - General Chief Complaint: Altered Mental Status Time Seen by Provider: 08/02/16 12:17 - History of Present Illness Narrative History of Present Illness (Text): 85 male with PMH of HTN, CAD s/p stent placement, NSTEMI, gastric cancer, ESRD on HD (M,W,F), DM and dementia presents to the hospital for altered mental status. Patient does not recall the reason why he is here in the hospital. His at bedside states that he was very lethargic at home and felt warm to touch. He also has dec appetite. He himslef denies any complaints at this time. He denies any brush, dizziness, f/c, sob, cp, palpitations, abd pain, n/v/d, urinary or bm changes. PMD: Dr Nazario (Jonathan Davis) Past Medical History - Provider Review Nursing Documentation Reviewed: Yes - Infectious Disease Hx of Infectious Diseases: None - Tetanus Immunization Tetanus Immunization: Unknown - Cardiac Hx Cardiac Disorders: Yes Hx Hypertension: Yes Hx Pacemaker: No - Pulmonary Hx Respiratory Disorders: Yes Hx Pneumonia: Yes - Neurological Hx Neurological Disorder: Yes HX Cerebrovascular Accident: Yes - HEENT Hx HEENT Disorder: Yes (WEARS RX GLASSES) Hx Epistaxis: Yes - Renal Hx Renal Disorder: Yes Hx Dialysis: Yes (-- Schedule) Hx Renal Failure: Yes (ESRD) - Endocrine/Metabolic Hx Endocrine Disorders: Yes Hx Diabetes Mellitus Type 2: Yes - Hematological/Oncological Hx Blood Disorders: Yes Hx Cancer: Yes (Gastric) - Integumentary Hx Dermatological Disorder: No - Musculoskeletal/Rheumatological Hx Musculoskeletal Disorders: Yes Hx Falls: Yes (past) - Gastrointestinal Hx Gastrointestinal Disorders: Yes (diverticulitis/reflux) - Genitourinary/Gynecological Hx Genitourinary Disorders: Yes (pt voids) Hx Reproductive Disorders: Yes - Psychiatric Hx Psychophysiologic Disorder: No Hx Emotional Abuse: No Hx Physical Abuse: No Hx Substance Use: No - Surgical History Other/Comment: AV shunt placement. - Anesthesia Hx Anesthesia Reactions: No Hx Malignant Hyperthermia: No - Suicidal Assessment Feels Threatened In Home Enviroment: No <Jonathan Davis - Last Filed: 08/02/16 18:45> Family/Social History - Physician Review Nursing Documentation Reviewed: Yes Family/Social History: No Known Family HX Smoking Status: Former Smoker Hx Alcohol Use: No Hx Substance Use: No Hx Substance Use Treatment: No <Jonathan Davis - Last Filed: 08/02/16 18:45> Allergies/Home Meds <Ang Lujan DO - Last Filed: 08/02/16 18:06> <Jonathan Davis - Last Filed: 08/02/16 18:45> Allergies/Adverse Reactions: Allergies No Known Allergies Allergy (Verified 06/24/16 18:10) Home Medications: Home Meds Medication Instructions Recorded Confirmed Insulin Detemir [Levemir Flextouch] 5 units SQ BID 06/28/15 08/02/16 Losartan Potassium [Cozaar] 100 mg PO DAILY 06/28/15 08/02/16 Linaclotide [Linzess] 145 mcg PO DAILY PRN 09/22/15 08/02/16 Travoprost [Travatan Z] 1 drop BOTHEYES HS 11/23/15 08/02/16 Cholecalciferol [Vitamin D 1000 IU] 50,000 unit PO SAT 01/30/16 08/02/16 Metoclopramide [Reglan] 5 mg PO QID 01/30/16 08/02/16 Nebivolol [Bystolic] 5 mg PO QPM 01/30/16 08/02/16 Folic Acid 1 mg PO DAILY 04/22/16 08/02/16 Isosorbide Mononitrate [Imdur] 60 mg PO QAM 04/22/16 08/02/16 Omeprazole 40 mg PO QAM 04/22/16 08/02/16 Polyethylene Glycol 3350 [Miralax] 17 gm PO PRN PRN 04/22/16 08/02/16 Sevelamer [Renagel] 800 mg PO TID 04/22/16 08/02/16 Vit B Cmplx 3/Folic AC/C/Biot 1 tab PO DAILY 04/22/16 08/02/16 [Suzanna-Jaylin Rx Tablet] Aspirin [Lo-Dose Aspirin EC] 81 mg PO DAILY 04/28/16 08/02/16 Review of Systems - Review of Systems Systems not reviewed;Unavailable: Altered Mental Status <Jonathan Davis - Last Filed: 08/02/16 18:45> Physical Exam Temperature: Afebrile Blood Pressure: Hypertensive Pulse: Tachycardic Respiratory Rate: Normal Appearance: Positive for: Well-Appearing, Non-Toxic, Comfortable Pain Distress: None Mental Status: Positive for: other (Altered AAO x [address] ) Finger Stick Blood Glucose: 100 - Systems Exam Head: Present: Atraumatic, Normocephalic Pupils: Present: PERRL Extroacular Muscles: Present: EOMI Mouth: Present: Moist Mucous Membranes Neck: Present: Normal Range of Motion Respiratory/Chest: Present: Clear to Auscultation, Good Air Exchange, Rales ( Mild LLQ). No: Respiratory Distress, Accessory Muscle Use, Wheezes Cardiovascular: Present: Regular Rate and Rhythm, Normal S1, S2. No: Murmurs Abdomen: Present: Normal Bowel Sounds. No: Tenderness, Distention, Peritoneal Signs Upper Extremity: Present: Normal Inspection. No: Cyanosis, Edema Lower Extremity: No: Edema, CALF TENDERNESS Neurological: Present: GCS=15, CN II-XII Intact, Speech Normal Skin: Present: Warm, Dry, Normal Color. No: Rashes Psychiatric: Present: Alert <Jonathan Davis - Last Filed: 08/02/16 18:45> Vital Signs Temp Pulse Resp BP Pulse Ox 08/02/16 18:00 98.5 F 95 H 18 188/95 H 98 08/02/16 12:13 98.3 F 91 H 18 187/97 H 95 Medical Decision Making <Ang Lujan DO - Last Filed: 08/02/16 18:06> <Jonathan Davis - Last Filed: 08/02/16 18:45> ED Course and Treatment: 08/02/16 17:[address] Nazario and reviewed case. Patient to be discharged and will follow up with him this week. (Ang Lujan DO) Impression: 85 male with PMH of HTN, CAD s/p stent placement, NSTEMI, gastric cancer, ESRD on HD (M,W,F), DM and dementia presents to the hospital for altered mental status. Differential Diagnosis included but are not limited to: CVA vs TIA vs electrolyte abnormality vs encephalopathy vs seizure Plan: - CBC, CMP, Cardiac iso, Ammonia, Urinalysis - CXR - Head CT - Reassess and disposition Prior Visits: Notes and results from previous visits were reviewed. On 06/21/16 patient came in complaining of AMS. Progress Notes: 08/02/16 17:28 CT head: no evidence of acute intracranial hemorrhage, mass effect or midline shift. No significant change from prior exams. 08/02/16 18:14 Spoke to patients regarding discharging the patient home. The stated that she will try to arrange transportation for ride home. 08/02/16 18:26 08/02/16 18:[address] to pick him up. EKG: Ordered, reviewed, and independently interpreted the EKG. Rate : 91 BPM Rhythm : sinus rythm with 1st degree AV block Interpretation : RBBB, L anterior fascicular block, trifascicular block, possible ASMI age unknown. [facility] : [facility] - Lab Interpretations Lab Results: 08/02/16 13:00 08/02/16 13:30 Lab Results 08/02/16 13:30: Sodium 138, Potassium 4.4, Chloride 100, Carbon Dioxide 24, Anion Gap 18, BUN 47 H, Creatinine 8.9 H*, Est GFR ( Amer) 7, Est GFR ( Non-Af Amer) 6, Random Glucose 106, Calcium 8.7, Phosphorus 4.6 H, Magnesium 2.1 , Total Bilirubin 0.9, AST 21, ALT 18, Alkaline Phosphatase 73, Lactate Dehydrogenase 501, Total Creatine Kinase 68, Troponin I 0.08 D, Total Protein 8.2, Albumin 3.8, Globulin 4.4, Albumin/Globulin Ratio 0.9 L 08/02/16 13:00: Ammonia 17 08/02/16 13:00: WBC 10.3 D, RBC 3.77, Hgb 11.4 L, Hct 35.2 L, MCV 93.4, MCH 30.2, MCHC 32.4, RDW 18.0 H, Plt Count 296, MPV 12.2 H, Gran % 82.0 H, Lymph % ( Auto) 10.5 L, Greer % (Auto) 7.0 H, Eos % (Auto) 0.3 L, Baso % (Auto) 0.2, Gran # 8.46 H, Lymph # 1.1 L, Greer # 0.7 H, Eos # 0.0, Baso # 0.02 - RAD Interpretation Radiology Orders: 08/02/16 12:18 CHEST ONE VIEW [RAD] Stat 08/02/16 12:19 HEAD W/O CONTRAST [CT] Stat ED OBSERVATION Discharge: Yes Time of observation admission: 13:15 <Ang Lujan DO - Last Filed: 08/02/16 18:06> <Jonathan Davis - Last Filed: 08/02/16 18:45> - Observation admission statement Patient is being placed in observation because:: dialysis (Ang Lujan DO) - PA / [employer]PER[employer] / Resident Statement GONSALO has examined the patient and agrees with the treatment plan. <Jonathan Davis - Last Filed: 08/02/16 18:45> Disposition/Present on Arrival <Ang Lujan DO - Last Filed: 08/02/16 18:06> - Present on Arrival Any Indicators Present on Arrival: Yes History of DVT/PE: No History of Uncontrolled Diabetes: No Urinary Catheter: No History of Decub. Ulcer: No History Surgical Site Infection Following: None - Disposition Have Diagnosis and Disposition been Completed?: Yes Disposition Time: 17:58 <Jonathan Davis - Last Filed: 08/02/16 18:45> - Disposition Diagnosis: Altered mental status, ESRD (end stage renal disease), Dementia Disposition: HOME/ ROUTINE Condition: FAIR Referrals: Zeyad Nazario MD [Primary Care Provider] - Follow up with primary
[2016-08-02 13:05] LABS: ADD MANUAL DIFF? NO
[2016-08-02 13:07] LABS: BASO # 0.02 K/mm3 (0.0-2.0); BASO % 0.2 % (0.0-3.0); EOS % 0.3 % (1.5-5.0); GRAN # 8.46 (1.4-6.5); HEMATOCRIT 35.2 % (42.0-52.0); LYMPH # 1.1 (1.2-3.4); LYMPH % 10.5 % (22.0-35.0); MEAN CELL VOLUME 93.4 fL (80.0-105.0); MEAN CORPUSCULAR HEMOGLOBIN 30.2 pg (25.0-35.0); MEAN CORPUSCULAR HGB CONC 32.4 g/dl (31.0-37.0); MEAN PLATELET VOLUME 12.2 fl (7.0-11.0); MONO # 0.7 (0.1-0.6); PLATELET COUNT 296 10^3/uL (120.0-450.0); WHITE BLOOD COUNT 10.3 10^3/ul (4.5-11.0)
--- NOTE | 2016-08-02 13:22 | CT ---
PROCEDURE: CT HEAD WITHOUT CONTRAST. HISTORY: AMS COMPARISON: Comparison is made to the previous study dated 09/22/2015 TECHNIQUE: Axial computed tomography images were obtained through the head/brain without intravenous contrast. Radiation dose: Total exam DLP = 744.18 mGy-cm. This CT exam was performed using one or more of the following dose reduction techniques: Automated exposure control, adjustment of the mA and/or kV according to patient size, and/or use of iterative reconstruction technique. FINDINGS: HEMORRHAGE: No intracranial hemorrhage. BRAIN: Small encephalomalacia is again seen at the left basal ganglia suggestive of old lacunar infarct. Mild atrophy and mild chronic microvascular ischemic disease are again seen. VENTRICLES: Unremarkable. No hydrocephalus. CALVARIUM: Unremarkable. PARANASAL SINUSES: Unremarkable as visualized. No significant inflammatory changes. MASTOID AIR CELLS: Unremarkable as visualized. No inflammatory changes. OTHER FINDINGS: None. IMPRESSION: No evidence of acute intracranial hemorrhage intracranial collection mass effect or midline shift. No significant interval change compared to the previous exam.
--- NOTE | 2016-08-02 13:43 | RAD ---
PROCEDURE: CHEST RADIOGRAPH, 1 VIEW HISTORY: AMS COMPARISON: 07/10/2016 FINDINGS: LUNGS: Minimal interstitial infiltrate increased from prior study PLEURA: No pneumothorax or pleural fluid seen. CARDIOVASCULAR: Normal. OSSEOUS STRUCTURES: No significant abnormalities. VISUALIZED UPPER ABDOMEN: Normal. OTHER FINDINGS: None. IMPRESSION: Minimal interstitial infiltrate
[2016-08-02 14:00] LABS: ALB/GLOB RATIO 0.9 (1.1-1.8); BILIRUBIN,TOTAL 0.9 mg/dL (0.2-1.3); CALCIUM 8.7 mg/dL (8.4-10.5); MAGNESIUM 2.1 mg/dL (1.7-2.2); PHOSPHOROUS 4.6 mg/dL (2.5-4.5); POTASSIUM 4.4 mmol/L (3.6-5.0); TOTAL PROTEIN 8.2 g/dL (5.8-8.3)
--- NOTE | 2016-08-02 14:03 | CARD ---
APPROVED REPORT EKG Measurement Heart [id number] <Conclusion> Sinus rhythm with 1st degree AV block Right bundle branch block Left anterior fascicular block Trifascicular block Possible ASMI, age unknown STTW changes
[2016-08-02 14:11] LABS: TROPONIN I 0.08 ng/mL
[2016-08-02 18:02] VITALS: BP 188/95; TEMP 98.5
--- NOTE | 2016-08-02 19:14 | CON ---
DATE: 08/02/2016 REASON FOR CONSULTATION: Altered mental status, shortness of breath, need for dialysis. HISTORY OF PRESENTING ILLNESS: An 85-year-old male known to me from outpatient hemodialysis, was bro ught to the Emergency Room by ambulance because he was found to be confused, short of breath by . The patient was seen in the Emergency Room. He does not know why he is here. He does know that he is in [place], he also recognizes me. He denies any cough. He denies any shortness of breath. He denies any fevers, chills. He denies any abdominal pain. He denies any nausea, vomiting. He denies any urinary complaints. PAST MEDICAL AND SURGICAL HISTORY: NIDDM, hypertension, ESRD, dementia, anemia, remote history of ga stric CA, sepsis, CAD, secondary hyperparathyroidism. FAMILY HISTORY: Noncontributory. SOCIAL HISTORY: Ex-smoker, no alcohol use, no IV drug abuse. ALLERGIES: No known drug allergies. MEDICATIONS AT HOME: MiraLax, Imdur, vitamin D, Flomax, Protonix, aspirin, Renagel, losartan, Linzes s, insulin, folic acid, Aricept, Reglan, Lipitor, Bystolic. REVIEW OF SYSTEMS: All systems are reviewed, pertinent positives as mentioned in the history of pres enting illness, the rest are unremarkable. PHYSICAL EXAMINATION: GENERAL: Elderly male lying in bed in no acute distress. VITAL SIGNS: Blood pressure 187/97, heart rate 91, respiratory rate 18, temperature 98.3. HEENT: Normocephalic, atraumatic. NECK: Supple, no JVD. LUNGS: Bilateral equal air entry, crackles at right base. CARDIAC: S1, S2, regular rate and rhythm, no murmur, no rub. ABDOMEN: Obese, distended, soft, nontender, bowel sounds present. EXTREMITIES: No lower extremity edema. LABORATORY DATA: WBC 10, hemoglobin 11, hematocrit 35, platelets 296, sodium 138, potassium 4.4, chl oride 100, CO2 24, BUN 47, creatinine 8.9, glucose 106, calcium 8.7, phosphorus 4.6, magnesium 2.1 an d albumin 3.8. Chest x-ray: Minimal interstitial infiltrate. ASSESSMENT AND PLAN: 1. Hypertensive emergency. 2. Altered mental status. 3. Shortness of breath, increased interstitial markings. 4. Non-insulin dependent diabetes mellitus. 5. End-stage renal disease. PLAN: 1. Urgent dialysis. 2. Revaluate after dialysis. 3. ? pneumonia. Brinda Ibarra MD cc: [id number] TT: 08/02/2016 19:14:28 Confirmation # [id number] Dictation # [id number] mn
[2016-08-02 19:16] VITALS: PULSE 96; O2SAT 99
== END 2016-08-02 18:06 | disposition home or self-care (01) ==
LOC: ED 12:04 → EROBSV 13:15
PROVIDERS: ADMIT Emergency Medicine; ATTEND Emergency Medicine
DX: R41.82 Altered mental status, unspecified (principal); F03.90 Unspecified dementia, unspecified severity, without behavioral disturbance, psychotic disturbance, mood disturbance, and anxiety; I12.0 Hypertensive chronic kidney disease with stage 5 chronic kidney disease or end stage renal disease; N18.6 End stage renal disease; Z99.2 Dependence on renal dialysis; I25.10 Atherosclerotic heart disease of native coronary artery without angina pectoris; E11.9 Type 2 diabetes mellitus without complications; Z87.891 Personal history of nicotine dependence
CPT/HCPCS: 70450; 71010; 80053; 82140; 82550; 83615; 83735; 84100; 84484; 85025; 93005; 99285; G0257; G0378

== ENCOUNTER 2016-08-02 19:54 | Observation (INO) | payer MEDICARE, BC ==
[2016-08-02 19:55] VITALS: BMI 23.2
[2016-08-02] MEDS ORDERED: EnalaprilAT 1.25 mg/ml Inj IVP STA (20:19)
--- NOTE | 2016-08-02 21:21 | ED PDOC ---
Arrival/HPI - General Chief Complaint: GI Problem Time Seen by Provider: 08/02/16 19:57 Historian: Patient - History of Present Illness Narrative History of Present Illness (Text): 08/02/16 21:21 Mendoza Lay is a 85 year old male, with a history of hypertension, CAD with stents, ESRD, diabetes, and gastroparesis, presents to the emergency department complaining of confusion and lethargy. Patient was discharged home this morning following evaluation for similar symptoms in the [facility]. According to , patient had 1 episode of vomiting after discharge. Patient was discharged after extensive workup including EKG, labs, and CT Head. Denies fever, chills, headache, dizziness, chest pain, shortness of breath, diarrhea, or any other complaints at this time. PMD: Severity Level: Mild Activities at Onset: Light Past Medical History - Provider Review Nursing Documentation Reviewed: Yes - Infectious Disease Hx of Infectious Diseases: None - Tetanus Immunization Tetanus Immunization: Unknown - Cardiac Hx Cardiac Disorders: Yes Hx Hypertension: Yes Hx Pacemaker: No - Pulmonary Hx Respiratory Disorders: Yes Hx Pneumonia: Yes - Neurological Hx Neurological Disorder: Yes HX Cerebrovascular Accident: Yes - HEENT Hx HEENT Disorder: Yes (WEARS RX GLASSES) Hx Epistaxis: Yes - Renal Hx Renal Disorder: Yes Hx Dialysis: Yes ( Schedule) Hx Renal Failure: Yes (ESRD) - Endocrine/Metabolic Hx Endocrine Disorders: Yes Hx Diabetes Mellitus Type 2: Yes - Hematological/Oncological Hx Blood Disorders: Yes Hx Cancer: Yes (Gastric) - Integumentary Hx Dermatological Disorder: No - Musculoskeletal/Rheumatological Hx Musculoskeletal Disorders: Yes Hx Falls: Yes (past) - Gastrointestinal Hx Gastrointestinal Disorders: Yes (diverticulitis/reflux) - Genitourinary/Gynecological Hx Genitourinary Disorders: Yes (pt voids) Hx Reproductive Disorders: Yes - Psychiatric Hx Psychophysiologic Disorder: No Hx Emotional Abuse: No Hx Physical Abuse: No Hx Substance Use: No - Surgical History Other/Comment: AV shunt placement. - Anesthesia Hx Anesthesia Reactions: No Hx Malignant Hyperthermia: No - Suicidal Assessment Feels Threatened In Home Enviroment: No Family/Social History - Physician Review Nursing Documentation Reviewed: Yes Family/Social History: No Known Family HX Smoking Status: Former Smoker Hx Alcohol Use: No Hx Substance Use: No Hx Substance Use Treatment: No Allergies/Home Meds Allergies/Adverse Reactions: Allergies No Known Allergies Allergy (Verified 06/24/16 18:10) Home Medications: Home Meds Medication Instructions Recorded Confirmed Insulin Detemir [Levemir Flextouch] 5 units SQ BID 06/28/15 08/02/16 Losartan Potassium [Cozaar] 100 mg PO DAILY 06/28/15 08/02/16 Linaclotide [Linzess] 145 mcg PO DAILY PRN 09/22/15 08/02/16 Travoprost [Travatan Z] 1 drop BOTHEYES HS 11/23/15 08/02/16 Cholecalciferol [Vitamin D 1000 IU] 50,000 unit PO SAT 01/30/16 08/02/16 Metoclopramide [Reglan] 5 mg PO QID 01/30/16 08/02/16 Nebivolol [Bystolic] 5 mg PO QPM 01/30/16 08/02/16 Folic Acid 1 mg PO DAILY 04/22/16 08/02/16 Isosorbide Mononitrate [Imdur] 60 mg PO QAM 04/22/16 08/02/16 Omeprazole 40 mg PO QAM 04/22/16 08/02/16 Polyethylene Glycol 3350 [Miralax] 17 gm PO PRN PRN 04/22/16 08/02/16 Sevelamer [Renagel] 800 mg PO TID 04/22/16 08/02/16 Vit B Cmplx 3/Folic AC/C/Biot 1 tab PO DAILY 04/22/16 08/02/16 [Suzanna-Jaylin Rx Tablet] Aspirin [Lo-Dose Aspirin EC] 81 mg PO DAILY 04/28/16 08/02/16 Review of Systems - Physician Review All systems were reviewed & negative as marked: Yes - Review of Systems Systems not reviewed;Unavailable: Other (confusion and lethargic) Constitutional: Normal. absent: Fatigue, Fevers Respiratory: Normal. absent: SOB, Cough Cardiovascular: Normal. absent: Chest Pain, Palpitations Gastrointestinal: Nausea, Vomiting. absent: Abdominal Pain, Diarrhea Neurological: absent: Headache, Dizziness Physical Exam Vital Signs Reviewed: Yes Vital Signs Temp Pulse Resp BP Pulse Ox 08/02/16 22:18 99.5 F 08/02/16 22:15 90 20 133/96 H 96 08/02/16 21:33 162/95 H Temperature: Afebrile Blood Pressure: Hypertensive Pulse: Regular Respiratory Rate: Normal Appearance: Positive for: Well-Appearing, Non-Toxic, Comfortable Pain Distress: None Mental Status: Positive for: other (Alert and oriented to person and place ) - Systems Exam Head: Present: Atraumatic, Normocephalic Pupils: Present: PERRL Conjunctiva: Present: Normal Neck: Present: Normal Range of Motion Respiratory/Chest: Present: Clear to Auscultation, Good Air Exchange. No: Respiratory Distress, Accessory Muscle Use Cardiovascular: Present: Regular Rate and Rhythm, Normal S1, S2. No: Murmurs Abdomen: Present: Normal Bowel Sounds. No: Tenderness, Distention, Peritoneal Signs Upper Extremity: Present: Normal Inspection. No: Cyanosis, Edema Lower Extremity: Present: Normal Inspection. No: Edema Neurological: Present: GCS=15, CN II-XII Intact, Speech Normal Skin: Present: Warm, Dry, Normal Color. No: Rashes Psychiatric: Present: Alert Medical Decision Making ED Course and Treatment: 08/02/16 21:31 Impression: A 85 year old male who presents to the ed complaining of lethargy and confusion. Plan: -- Vasotec -- Reglan -- Zofran Progress Notes: 08/02/16 21:33 Patient was seen and evaluated by PMD, Dr. Nazario, in the ed. Accepts patient for telemetry observation under his service. - Medication Orders Current Medication Orders: Discontinued Medications Aspirin (Ecotrin) 81 mg PO DAILY [facility] Last Admin: 08/03/16 09:16 Dose: 81 mg Atorvastatin Calcium (Lipitor) 40 mg PO DIN [facility] Last Admin: 08/03/16 17:05 Dose: 40 mg Cholecalciferol (Vitamin D) 1,000 iu PO SAT [facility] Donepezil HCl (Aricept) 10 mg PO HS [facility] Last Admin: 08/03/16 00:24 Dose: 10 mg Comments: did not come to floor till 23:10 Enalaprilat (Vasotec Iv) 2.5 mg IVP STAT STA Stop: 08/02/16 20:20 Last Admin: 08/02/16 21:33 Dose: 2.5 mg Folic Acid (Folic Acid) 1 mg PO DAILY [facility] Last Admin: 08/03/16 09:17 Dose: 1 mg Insulin Detemir (Levemir) 5 unit SC ACBD [facility] Last Admin: 08/03/16 17:05 Dose: 5 unit Insulin Human Lispro (Humalog Low) 0 units SC AC [facility] PRN Reason: Protocol Insulin Human Lispro (Humalog Low) 0 units SC ACHS [facility] PRN Reason: Protocol Last Admin: 08/03/16 17:06 Dose: 3 units Isosorbide Mononitrate (Imdur) 60 mg PO QAM [facility] Last Admin: 08/03/16 09:15 Dose: 60 mg Latanoprost (Xalatan Opht) 0 ml OU HS [facility] Last Admin: 08/03/16 00:18 Dose: 2.5 ml Levalbuterol HCl (Xopenex) 0.63 mg IH [id number] [facility] Last Admin: 08/03/16 13:37 Dose: Not Given Non-Admin Reason: Patient Refused Losartan Potassium (Cozaar) 100 mg PO DAILY [facility] Last Admin: 08/03/16 09:16 Dose: 100 mg Memantine (Namenda) 5 mg PO DAILY [facility] Last Admin: 08/03/16 09:17 Dose: 5 mg Metoclopramide HCl (Reglan) 10 mg IVP ONCE ONE Stop: 08/02/16 20:25 Last Admin: 08/02/16 21:33 Dose: 10 mg Metoclopramide HCl (Reglan) 10 mg IVP Q6H [facility] Last Admin: 08/02/16 22:23 Dose: Metoclopramide HCl (Reglan) 10 mg IVP 0000,0600,1200,1800 [facility] Last Admin: 08/03/16 13:46 Dose: 10 mg Comments: Med did not scan Metoclopramide HCl (Reglan) 10 mg IVP Q12H [facility] Last Admin: 08/03/16 16:31 Dose: Metoprolol Tartrate (Lopressor) 50 mg PO DAILY [facility] Last Admin: 08/03/16 09:15 Dose: 50 mg Ondansetron HCl (Zofran Inj) 4 mg IVP ONCE ONE Stop: 08/02/16 21:27 Ondansetron HCl (Zofran Inj) 4 mg IVP Q4H PRN PRN Reason: Nausea/Vomiting Last Admin: 08/03/16 00:15 Dose: 4 mg Pantoprazole Sodium (Protonix Ec Tab) 40 mg PO 0630 [facility] Last Admin: 08/03/16 05:57 Dose: 40 mg Polyethylene Glycol (Miralax) 17 gm PO BID [facility] Last Admin: 08/03/16 17:12 Dose: Not Given Non-Admin Reason: Patient Refused Sevelamer HCl (Renagel) 800 mg PO TID [facility] Last Admin: 08/03/16 17:04 Dose: 800 mg Tamsulosin HCl (Flomax) 0.4 mg PO DAILY [facility] Last Admin: 08/03/16 09:14 Dose: 0.4 mg Vitamin B Complex/Vit C/Folic Acid (Nephro-Jaylin) 1 tab PO DAILY [facility] Last Admin: 08/03/16 09:14 Dose: 1 tab - Scribe Statement The provider has reviewed the documentation as recorded by the Raegan Arango Provider Attestation: All medical record entries made by the Raegan were at my direction and personally dictated by me. I have reviewed the chart and agree that the record accurately reflects my personal performance of the history, physical exam, medical decision making, and the department course for this patient. I have also personally directed, reviewed, and agree with the discharge instructions and disposition. Disposition/Present on Arrival - Present on Arrival Any Indicators Present on Arrival: No History of DVT/PE: No History of Uncontrolled Diabetes: No Urinary Catheter: No History of Decub. Ulcer: No History Surgical Site Infection Following: None - Disposition Have Diagnosis and Disposition been Completed?: Yes Diagnosis: ESRD (end stage renal disease), Gastroparesis, Uncontrolled hypertension Disposition: HOSPITALIZED Disposition Time: 21:20 Condition: GOOD
[2016-08-02] MEDS ORDERED: Latanoprost 2.5 ml Opht Soln OU SCH (22:00)
--- NOTE | 2016-08-02 23:05 | HP ---
HISTORY OF PRESENT ILLNESS: The patient is an 85-year-old male who presented initially in the aftern oon of 08/02/2016. The patient was brought to the Emergency Room by [facility] KYLE kumar. According to the patient's , the patient was increasingly confused this morning. The pa tient was found to be alert, awake, oriented to name and place, disoriented to time. The patient was initially evaluated and then later on was discharged, but while the patient was getting discharged, the patient started feeling nauseous with elevated blood pressure. According to the ER physician's e valuation, the patient came in with confusion and altered mental status. REVIEW OF SYSTEMS: A 13-system review was done. Pertinent positive and negative dictated above. CODE STATUS: Full code. LIVING WILL AND ADVANCED DIRECTIVE: None. ALLERGIES: None. Height is 5 feet 10 inches. Weight is 162 pounds, BMI is 23.2. HOME MEDICATIONS: Suzanna-Jaylin 1 tablet daily, Travatan eye drops 1 drop both eyes at bedtime, Flomax 0 .4 mg daily, Renagel or sevelamer 800 mg 3 times a day, MiraLax 17 gram b.i.d., or t.i.d. p.r.n., Pr ilosec 40 mg daily or Protonix 40 mg daily, Bystolic 5 mg daily, Reglan 5 mg a.c. and at bedtime, Coz aar 100 mg daily, Linzess 145 mcg daily, Imdur 60 mg daily, Levemir 5 units with breakfast and dinner , folic acid 1 mg daily, Aricept 10 mg daily, Vitamin D2 50,000 units weekly, Lipitor 40 mg daily, as pirin 81 mg daily. SOCIAL HISTORY: Positive for former smoker. Denies alcohol. Denies substance abuse. OCCUPATIONAL HISTORY: Disabled elderly male. FAMILY HISTORY: Positive for hypertension, diabetes. PAST MEDICAL AND SURGICAL HISTORY: History of cerebral infarct, history of end-stage renal disease, hemodialysis dependent 3 times a week via the left upper extremity AV fistula, history of cataracts, history of prostate hypertrophy, history of constipation, history of gastrointestinal bleeding, histo ry of diabetic gastroparesis, history of hypertension, history of constipation, history of coronary a rtery disease, history of myocardial infarction, history of angioplasty and stent placement, history of angina, history of insulin-requiring diabetes mellitus, history of dementia, history of hypovitami nosis D, history of dyslipidemia, history of pneumonia, history of end-stage renal disease hemodialys is dependent, history of myocardial infarction, history of coronary artery disease, history of questi onable peripheral vascular disease, history of dyslipidemia, history of type 1 diabetes mellitus, his tory of diverticulitis, history of constipation, history of gastroesophageal reflux, history of nephr olithiasis, history of prostate hypertrophy, history of cataract glaucoma, history of dementia, histo ry of former smoking, history of gastric carcinoma, history of multiple blood transfusions, history o f gait dysfunction. The patient's past medical history is significant for deconditioning, history of sepsis, history of non-ST elevation myocardial infarction, history of transient hypotension, history of anemia, history of packed red blood cell transfusion, history of hyperkalemia, history of seconda ry hyperparathyroidism, history of noncompliance with medication according to the patient's , his tory of anorexia, history of diabetic gastroparesis, history of bilateral onychomycosis of the lower extremity feet with mycotic dystrophic nails, history of anemia of chronic disease and chronic kidney disease, history of tachycardia, history of prostate hypertrophy, history of coronary artery disease with coronary angioplasty. PHYSICAL EXAMINATION: GENERAL: The patient is seen in stretcher #5 in the Emergency Room. The patient is lying in the bed . VITAL SIGNS: T-max is 98.5. Telemetry shows sinus rhythm, sinus tachycardia, heart rate 95, blood p ressure 187/97, 188/95, 62/95, respirations 20, O2 sat 99%. GENERAL: The patient is seen lying in the bed. The patient is alert, awake, responsive, oriented to person and place; but disoriented to year, date, month, time. HEAD: Normocephalic, atraumatic. HEENT: Shows pinkish, pale conjunctivae, anicteric sclerae. No oropharyngeal lesion. NECK: No neck rigidity. Positive soft carotid bruit. CHEST: Kyphosis. LUNGS: Shows occasional rhonchi. CARDIOVASCULAR: S1, S2, regular rhythm. Positive systolic murmur left sternal border, right second intercostal space, left sternal border. ABDOMEN: Soft, mild epigastric periumbilical tenderness. GENITALIA: Male. RECTAL: Deferred. EXTREMITIES: Left upper extremity, positive AV fistula, positive thrill. Lower extremity shows no p itting edema, no calf tenderness, no Homans sign. NEUROLOGIC: The patient is alert, awake, oriented x 1-2. The patient is able to answer and follow c ommand. MUSCULOSKELETAL: Noted. PSYCHIATRIC: Positive for dementia and noncompliance. Gait examination not tested. Cranial nerves II-XII limited. DIAGNOSTICS 08/02: WBC 10.3, hemoglobin/hematocrit 11.4/35.2, platelets 296, granulocytes 82. Sodium 138, potassium 4.4, chloride 100, CO2 24, anion gap 18, BUN 47, creatinine 0.9, GFR 7, glucose 106, c alcium 8.7, phosphorus 4.6, magnesium 2.1. CPK 68, troponin 0.08. Chest x-ray shows prominent vascu lar marking, probably volume overload. CT of the head was done in the Emergency Room which shows a l eft basal ganglia, encephalomalacia, old lacunar infarct. EKG shows bifascicular block with right bu ndle branch block and left anterior hemiblock. The patient was seen initially in the ER by Dr. Lujan. The patient was also seen by Dr. Ibarra. The patient was sent for emergent hemodialysis, after which patient came back and was cleared for dis charge. But the patient developed nausea for which patient was reevaluated in the Emergency Room, at that time the patient was still found to have elevated blood pressure. IMPRESSION AND PLAN: 1. Questionable altered mental status versus toxic metabolic encephalopathy. 2. Acute exacerbation of dementia. 3. History of poor compliance and noncompliance with medication. 4. Possible volume overload. 5. Hypertensive emergency with uncontrolled hypertension. 6. End-stage renal disease, hemodialysis dependent. 7. Tachycardia. 8. Hypertension. 9. Normocytic anemia. 10. Granulocytosis. 11. Insulin-requiring diabetes mellitus. 12. End-stage renal disease, hemodialysis dependent. 13. Bifascicular block, right bundle branch block, left anterior hemiblock. 14. Left basal ganglia encephalomalacia, left basal ganglia old lacunar infarct. 15. Cerebral cortical atrophy of the brain. 16. Microvascular ischemic disease of the brain. 17. Possible volume overload. 18. History of prostate hypertrophy, history of secondary hyperparathyroidism, history of constipati on, history of gastroesophageal reflux, history of diabetic gastroparesis, history of hypertension, h istory of constipation, history of coronary artery disease, coronary angioplasty, history of unstable angina, history of multiple non ST elevation myocardial infarction. 18. History of insulin-requiring diabetes mellitus. 19. History of dementia. 20. Hypovitaminosis D. 21. History of dyslipidemia. PLAN: At this time the patient was seen in the Emergency Room. The patient has been placed on remot e telemetry. The patient has been requested to be seen by neurology and nephrology. The patient, In the Emergency Room, received Vasotec 2.5 mg IV. The patient was given Reglan 10 mg IV stat. The pa bolivar was given Zofran 4 mg IV and patient was stabilized. The patient's medications are re-ordered including Aricept 10 mg at bedtime, Cozaar 100 mg daily, aspirin 81 mg daily, Flomax 0.4 mg daily, fo lic acid 1 mg daily, Humalog low dose sliding scale coverage a.c. and at bedtime. The patient is on Imdur 60 mg daily, Levemir 5 units with breakfast and dinner, Lipitor 40 mg daily, Lopressor 50 mg da edilia, MiraLax 17 g twice a day, Nephro-Jaylin 1 tablet daily, Protonix 40 mg daily, Reglan 10 mg IV q. 6 , Renagel 800 mg 3 times a day, vitamin D 1000 units weekly. Xalatan eye drops, Zofran 4 mg IV q. 4 p.r.n. The patient has been ordered MRI and MRA of the brain without contrast. The patient is on renal diet , moderate carbohydrate, heart healthy. The patient has been put on neuro checks. The patient has b een put on bed rest. The patient at this time will be admitted to telemetry. The patient has been o rdered continuation of home medications. At present patient's condition, diagnosis, treatment plan, management plan discussed with the ER management team. The patient's was also explained about t he patient's need for hospitalization. At present, patient's further management will be dependent up on the patient's clinical condition. At present, patient is to be continued on the above interventio ns. The patient's further management will be dependent upon the patient's clinical condition, hemody namic status, and as per patient's response to therapeutic intervention, as per neurology and nephrol ogy recommendation. In addition, the patient will also be requested to be seen by cardiology. Dictated, electronically signed, not read. Zeyad Nazario MD cc: [id number] TT: 08/02/2016 23:03:43 dereck
[2016-08-03] MEDS: Levalbuterol 0.63 MG/3 ML Inhal Soln UD IH SCH ×4 (00:07→13:37)
[2016-08-03] MEDS ORDERED: Pantoprazole 40 mg EC Tab PO SCH (06:30)
[2016-08-03] MEDS ORDERED: Insulin Lispro (humaLOG) LOW Coverage SC SCH ×3 (07:30)
[2016-08-03 07:58] LABS: TROPONIN I 0.13 ng/mL
[2016-08-03] MEDS: Insulin Detemir 100 units/ml Vial (Levemir) SC SCH ×2 (08:16→17:05)
[2016-08-03] MEDS: Insulin Lispro (humaLOG) LOW Coverage SC SCH ×3 (08:17→17:06)
[2016-08-03] MEDS: POLYETHYLENE GLYCOL 3350 17 GM/Dose PACKET PO SCH ×3 (09:17→17:12)
--- NOTE | 2016-08-03 09:51 | CARD ---
APPROVED REPORT EKG Measurement Heart [id number] <Conclusion> Sinus rhythm with 1st degree AV block Right bundle branch block Left anterior fascicular block Bifascicular block Left ventricular hypertrophy with repolarization abnormality Abnormal ECG
[2016-08-03] MEDS ORDERED: Multivitamin Vitamin B Complex (Nephro-Vite) Tab PO SCH (10:00)
--- NOTE | 2016-08-03 10:06 | DS ---
FINAL PROGRESS NOTE AND DISCHARGE SUMMARY DATE: 08/03/2016 The patient is seen in room 377, bed 1. The patient is on remote tele. The patient is lying in the bed. The patient is alert, awake, oriented to person, place, date of . States disoriented to year, date, month, time. Overnight nurse's notes were reviewed. PHYSICAL EXAMINATION: VITAL SIGNS: T-max 99.5, heart rate 80s-88-100, blood pressure 162/95, 133/96, 164/90, 158/70, respiration 18-20, O2 saturation 99%. Neuro checks show that patient was disoriented, alert, awake. The patient was arousable. The patient was confused and disoriented. Telemetry shows sinus rhythm. HEAD: Normocephalic, atraumatic. HEENT: Shows pinkish, pale conjunctivae, anicteric sclerae. No oropharyngeal lesion. NECK: No neck rigidity. Positive soft carotid bruit. CHEST: Kyphosis. LUNGS: Shows no rales, crackles, or wheezing. Occasional rhonchi upper lung chaney anteriorly which clears up with deep inspiration. CARDIOVASCULAR: S1, S2. Regular rhythm. Questionable soft systolic murmur right sternal border, left second intercostal space, left sternal border. ABDOMEN: Soft, positive bowel sounds. GENITALIA: Male. RECTAL: Deferred. EXTREMITIES: Shows positive left upper extremity AV fistula, positive thrill. NEUROLOGIC: The patient is alert, awake, oriented to person, place, disoriented to year, date, month, time. Able to move upper and lower extremities without assistance. GAIT: Not tested. The patient is lying in the bed. PSYCHIATRIC: Negative for auditory and visual hallucinations, negative for suicidal and homicidal ideation. DIAGNOSTICS: Fingerstick blood sugar 156, 155. Troponin is 0.08 and 0.13. FINAL IMPRESSION AND PLAN & DISCHARGE DIAGNOSES: 1. Altered mental status versus encephalopathy versus episodic confusion. 2. Questionable acute non-ST elevation myocardial infarction with elevated troponin. 3. Acute exacerbation of dementia with confusion, disorientation, encephalopathy. 4. Status post hypertensive emergency with uncontrolled hypertension. 5. History of poor compliance and noncompliance. 6. Insulin requiring diabetes mellitus. 7. 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 8. Hypertensive cardiovascular disease. 9. End-stage renal disease, hemodialysis dependent 3 times a week ago via left upper extremity arteriovenous fistula. 10. Acute exacerbation of dementia. 11. Hypertension. 12. Prostate hypertrophy. 13. Insulin requiring diabetes mellitus. 14. History of coronary artery disease, history of non-ST elevation myocardial infarction and angioplasty. 15. Dyslipidemia. 16. History of constipation. 17. Diabetic gastroparesis. 18. Hypovitaminosis D. 1. Questionable altered mental status versus toxic metabolic encephalopathy. 2. Acute exacerbation of dementia. 3. History of poor compliance and noncompliance with medication. 4. Possible volume overload. 5. Hypertensive emergency with uncontrolled hypertension. 6. End-stage renal disease, hemodialysis dependent. 7. Tachycardia. 8. Hypertension. 9. Normocytic anemia. 10. Granulocytosis. 11. Insulin-requiring diabetes mellitus. 12. End-stage renal disease, hemodialysis dependent. 13. Bifascicular block, right bundle branch block, left anterior hemiblock. 14. Left basal ganglia encephalomalacia, left basal ganglia old lacunar infarct. 15. Cerebral cortical atrophy of the brain. 16. Microvascular ischemic disease of the brain. 17. Possible volume overload. 18. History of prostate hypertrophy, history of secondary hyperparathyroidism, history of constipation, history of gastroesophageal reflux, history of diabetic gastroparesis, history of hypertension, history of constipation, history of coronary artery disease, coronary angioplasty, history of unstable angina, history of multiple non ST elevation myocardial infarction. 18. History of insulin-requiring diabetes mellitus. 19. History of dementia. 20. Hypovitaminosis D. 21. History of dyslipidemia. 22. 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 PLAN: At this time, we are awaiting for cardiology, nephrology, neurology evaluation. The patient is to undergo repeat chest x-ray, PA and lateral, MRI/ MRA of the brain. The patient is on oxygen 2 liters continuous. Repeat EKG ordered. The patient is on renal diet. The patient has been ordered neuro checks. The patient has been ordered out of bed. The patient has been ordered occupational therapy, physical therapy. At present, patient's further management will be dependent upon the patient's clinical condition, hemodynamic status, and as per patient's response to therapeutic intervention and as per cardiology, nephrology and neurology recommendation. PATIENT CLEARED FOR DISCHARGE BY NEUROLOGY, CARDIOLOGY AND NEPHROLOGY DIANA STOPPED NAMENDA XR ADDED TO AMBULATORY ORDERS. PATIENT TO BE DISCHARGED HOME WITH FOLLOW UP NEXT WEEK IN THE OFFICE DISCHARGE MEDS PER UPDATED AMBULATORY ORDERS. FOLLOW UP HEMODIALYSIS 3 X PER WEEK. REFER TO A LOSS PREVENTION INVESTIGATOR HOME PT. TIME SPENT IN THE ENTIRE DISCHARGE PROCESS >45 MINUTES. Dictated and electronically signed, not read. Zeyad Nazario MD cc: [id number] TT: 08/03/2016 10:06:36 Confirmation # [id number] Dictation # [id number] MTDD
--- NOTE | 2016-08-03 11:05 | RAD ---
HISTORY: ??CHF COMPARISON: 08/02/2016 TECHNIQUE: Chest PA and lateral FINDINGS: LUNGS: Improved interstitial infiltrate PLEURA: No significant pleural effusion identified. No pneumothorax apparent. CARDIOVASCULAR: Normal. OSSEOUS STRUCTURES: No significant abnormalities. VISUALIZED UPPER ABDOMEN: Normal. OTHER FINDINGS: None. IMPRESSION: No active disease.
--- NOTE | 2016-08-03 11:12 | CARD ---
APPROVED REPORT EKG Measurement Heart [id number] <Conclusion> Poor data quality, interpretation may be adversely affected Sinus rhythm with 1st degree AV block Right bundle branch block Left anterior fascicular block Bifascicular block Abnormal ECG
--- NOTE | 2016-08-03 12:25 | MRI ---
PROCEDURE: MRI BRAIN WITHOUT CONTRAST HISTORY: AMS COMPARISON: None. TECHNIQUE: Multiplanar, multisequence MR images of the brain were obtained without intravenous contrast enhancement. FINDINGS: HEMORRHAGE: None DWI: No evidence of an acute or early subacute infarction. BRAIN PARENCHYMA: No mass effect or edema. Chronic microvascular changes are seen in the periventricular white matter. No acute findings. VENTRICLES: Mild atrophy CRANIUM: Unremarkable. ORBITS: Grossly unremarkable. PARANASAL SINUSES/MASTOIDS: Clear VASCULAR SYSTEM: Skull base flow voids intact. OTHER FINDINGS: None. IMPRESSION: No acute finding
--- NOTE | 2016-08-03 12:27 | MRI ---
PROCEDURE: Magnetic Resonance Angiography Brain HISTORY: AMS COMPARISON: None available. TECHNIQUE: 3D time of flight MR angiography of the intracranial arteries was performed. Rotating maximum intensity projection images were generated. FINDINGS: INTERNAL CEREBRAL ARTERIES: Unremarkable. The skull base, petrous, cavernous and supraclinoid segments are bilaterally widely patient. ANTERIOR CEREBRAL ARTERIES: Unremarkable. A1 and A2 segments are widely patent. Smaller distal branches unremarkable, as visualized. MIDDLE CEREBRAL ARTERIES: Unremarkable. M1 and M2 segments are widely patent. Perisylvian branches grossly symmetric. POSTERIOR CIRCULATION: Basilar Artery: Severe tortuosity of the basilar artery. No evidence of stenosis or occlusion Distal Vertebral Arteries: Unremarkable. Posterior Cerebral Arteries: Unremarkable. Posterior Inferior Cerebellar Arteries: Unremarkable. ANEURYSM/ VASCULAR MALFORMATIONS: None. OTHER FINDINGS: None. IMPRESSION: Unremarkable MR angiography of the brain.
--- NOTE | 2016-08-03 14:42 | CON ---
DATE: 08/03/2016 CHIEF COMPLAINT: Change in mental status. HISTORY OF PRESENT ILLNESS: This is an 85-year-old man with past medical history of type 2 diabetes mellitus insulin-dependent; hypertension; end-stage renal disease, on hemodialysis; history of gastri c cancer, history of gastric paresis, coronary artery disease, history of hypertensive urgency, histo ry of pneumonia and sepsis, who presented to the hospital because the noted that the patient was becoming increasingly confused; was alert and awake, oriented to person and place, but disoriented t o time. He also felt nauseous and, therefore, I was consulted for altered mental status. He underwe nt an MRI of the brain and MRA of the head which was unremarkable it just showed no acute intracrania l abnormalities. He did have elevated blood pressure systolically and diastolically in the initial p art of his admission. He also had elevated BUN and creatinine indicating this was chronic kidney dis ease. Currently, he is following simple commands. He is oriented to person, place and year. 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 He knows his medical conditions. He does have evidence of co gnitive impairment from his underlying chronic medical conditions as well. PAST MEDICAL HISTORY: History of type 2 diabetes mellitus, insulin dependent; gastroparesis; end-sta ge renal disease, on hemodialysis Tuesday, Tuesday and Tuesday; history of gastric cancer, history of coronary artery disease, history of hypertensive urgency, pneumonia. MEDICATIONS: Reviewed via nurses' reconciliation sheet. SOCIAL HISTORY: No illicit drug use, smoking, or ETOH abuse. FAMILY HISTORY: Father of complications of diabetes. Mother of unknown causes. ALLERGIES: No known drug allergies. REVIEW OF SYSTEMS: A 14-point review of systems negative except for the HPI. PHYSICAL EXAMINATION: VITAL SIGNS: Temperature of 97.8, pulse rate of 80, blood pressure 158/70, respiratory rate of 18, o xygen saturation ____% via room air. GENERAL: The patient is sitting up in bed, no acute distress. HEENT: Atraumatic, normocephalic. PERRLA. Extraocular muscles intact. NECK: Supple, no JVD, no adenopathy noted. LUNGS: Clear to auscultation. No adventitious sounds. HEART: S1, S2, normal rate and rhythm. No murmurs, rubs, or gallops. ABDOMEN: Soft, nontender, nondistended. Bowel sounds are present. EXTREMITIES: No clubbing, no cyanosis. Peripheral pulses 2+ felt bilaterally. NEUROLOGIC: The patient is alert, oriented to person and place, knows the president of the [facility]. Recall after 5 minutes is 0/3. Poor attention span. Slow thought process. Judgment is fair. Speech is hypophonic and no aphasia noted. Cranial nerves II-XII are intact. MOTOR: Slight increased tone throughout. Moves all extremities equally. SENSORY: Withdraws to localized noxious stimulus. Light touch and pinprick is decreased up to the c sandhu bilaterally. Proprioception intact. REFLEXES: DTRs are 1+ throughout, absent at the ankles. COORDINATION: [id number] intact. GAIT: Deferred for now. LABORATORIES: Sodium 138, potassium 4.4, chloride 100, carbon dioxide 24, BUN of 47, creatinine 8.9, random glucose 106. ASSESSMENT AND PLAN: This is an 85-year-old -[place]el[place] man with past medical history of type 2 diabetes mellitus, gastroparesis, history of hypertension, hypertensive urgency, pneumonia; history of end-stage renal disease, on hemodialysis Tuesday, Tuesday and Tuesday; who came in, was noted to b e more confused than his baseline, and found to have some elevated systolic and diastolic blood press ures, also had an episode of vomiting. Likely his confusion is more of an episodic confusional state , superimposed underlying dementia from underlying chronic medical problems. At this time, he is mark ented to person, place, month and year, knows the vice president of marketing, knows his actual me dical problems at this time. He is moving all extremities. He does have cognitive impairment at [facility]. At this time, recommend: 1. To keep the systolic blood pressure between 120-130 mmHg. 2. Monitor his electrolytes and correct accordingly. 3. No further neurological workup is needed since an MRI of the brain and MRI of the head are unrema rkable in terms of anything acute. 4. Continue with aspirin 81 mg, Lipitor 40 mg for stroke prevention. 5. Continue with Aricept 10 mg p.o. at bedtime for his underlying cognitive impairment. Could consi snehal to add Namenda XR instead of Namenda regular, 14 mg, in the outpatient setting. 6. Avoid overuse of Reglan for his nausea as it can give Parkinson's type features. 7. PT and OT assessment. 8. Continue with current present medical management. 9. Avoid any sedative medications. Thank you for this consult. Please reconsult if necessary. Will sign off. Laci Garcia MD cc: [phone] TT: 08/03/2016 14:42:30 Confirmation # [id number] Dictation # [id number] mn
--- NOTE | 2016-08-03 15:40 | CON ---
DATE: 08/03/2016 HISTORY OF PRESENT ILLNESS: The patient is an 85-year-old male who presents with altered mental stat us. The patient has baseline dementia. PAST MEDICAL HISTORY: Notable for history of PTCA and stent for a non-STEMI in the past. His last p rocedure was in 04/2016 where a bare metal stent was placed in the LAD. The patient's cardiac risk factors include diabetes mellitus, hypertension, and hypercholesterolemia. SOCIAL HISTORY: The patient does not smoke. REVIEW OF SYSTEMS: Reveals no chest pain, no shortness of breath. The patient is mildly confused. PHYSICAL EXAMINATION: VITAL SIGNS: Stable. NECK: Negative JVD. LUNGS: Without rales. HEART: Revealed S1, S2. EXTREMITIES: Without edema. EKG reveals normal sinus rhythm with a left anterior hemiblock and a right bundle branch block. LABORATORIES: Reveals troponins of 0.8 and 0.13 with a glucose of 155. Hemoglobin is 7.4. IMPRESSION: 1. Stable angina. 2. The mildly borderline elevated troponins are insignificant. 3. History of percutaneous transluminal coronary angioplasty with bare metal stent. 4. End-stage renal disease. 5. Diabetes mellitus. 6. Hypertension. 7. Dementia. Given these findings, the patient's cardiac status is stable. Would continue on his aspirin as well as statin therapy. No indication for intervention of his borderline elevated troponins at this time. Jamin Dewey MD cc: [id number] TT: 08/03/2016 15:39:51 Confirmation # [id number] Dictation # [id number]
[2016-08-03 17:58] VITALS: BP 152/80; PULSE 65; RESP 20; TEMP 97.4; O2SAT 100
--- NOTE | 2016-08-04 08:19 | PN ---
DATE: 08/03/2016 SUBJECTIVE: The patient is seen lying in bed. He is awake. He is alert. He is comfortable. He is oriented x 3. He denies any pain. He denies any shortness of breath. He denies any nausea, vomiti ng. PHYSICAL EXAMINATION: GENERAL: An elderly male sitting in bed. VITAL SIGNS: Blood pressure 158/70, heart rate 80, respiratory rate 18, temperature 97.8. HEENT: Normocephalic, atraumatic. NECK: Supple, no JVD. LUNGS: Bilateral equal air entry, minimal rales, right greater than left. CARDIAC: S1, S2, regular rate and rhythm, no murmur, no rub. ABDOMEN: LABORATORY DATA: No new labs. MEDICATIONS: Aricept, Cozaar, Ecotrin, Flomax, folic acid, insulin, Lipitor, Lopressor, Renagel, Xop enex, Zofran. ASSESSMENT: 1. Dementia. 2. Nausea, vomiting, ? gastroparesis. 3. Hypertension, much better controlled now. 4. . 5. End-stage renal disease. 6. Altered mental status, resolved. PLAN: 1. The patient had stable dialysis yesterday. 2. He is tolerating diet now. 3. His altered mental status has resolved. 4. Dementia, continue Aricept. 5. No objection to discharge. Brinda Ibarra MD cc: [id number] TT: 08/03/2016 22:58:08 Confirmation # [id number] Dictation # [id number] victor manuel
== END 2016-08-03 18:17 | disposition home or self-care (01) ==
LOC: ED 19:54 → ERH 21:23 → 3RSO 23:16
PROVIDERS: ADMIT Internal Medicine; ATTEND Internal Medicine
DX: G92 Toxic encephalopathy (principal); F03.90 Unspecified dementia, unspecified severity, without behavioral disturbance, psychotic disturbance, mood disturbance, and anxiety; E11.43 Type 2 diabetes mellitus with diabetic autonomic (poly)neuropathy; K31.84 Gastroparesis; I16.1 Hypertensive emergency; I13.11 Hypertensive heart and chronic kidney disease without heart failure, with stage 5 chronic kidney disease, or end stage renal disease; N18.6 End stage renal disease; I25.118 Atherosclerotic heart disease of native coronary artery with other forms of angina pectoris; Z99.2 Dependence on renal dialysis; E11.22 Type 2 diabetes mellitus with diabetic chronic kidney disease; D64.9 Anemia, unspecified; E55.9 Vitamin D deficiency, unspecified; E78.5 Hyperlipidemia, unspecified; G93.89 Other specified disorders of brain; I25.2 Old myocardial infarction; I45.2 Bifascicular block; Z79.4 Long term (current) use of insulin; Z79.82 Long term (current) use of aspirin; Z79.899 Other long term (current) drug therapy; Z82.49 Family history of ischemic heart disease and other diseases of the circulatory system; Z83.3 Family history of diabetes mellitus; K21.9 Gastro-esophageal reflux disease without esophagitis; K57.92 Diverticulitis of intestine, part unspecified, without perforation or abscess without bleeding; N40.0 Benign prostatic hyperplasia without lower urinary tract symptoms; N25.81 Secondary hyperparathyroidism of renal origin; Z85.028 Personal history of other malignant neoplasm of stomach; Z86.73 Personal history of transient ischemic attack (TIA), and cerebral infarction without residual deficits; Z87.01 Personal history of pneumonia (recurrent); Z87.891 Personal history of nicotine dependence; Z91.14 Patient's other noncompliance with medication regimen; Z91.19 Patient's noncompliance with other medical treatment and regimen; Z95.5 Presence of coronary angioplasty implant and graft; M40.209 Unspecified kyphosis, site unspecified; E87.70 Fluid overload, unspecified; R00.0 Tachycardia, unspecified; G31.9 Degenerative disease of nervous system, unspecified; I67.82 Cerebral ischemia; E78.00 Pure hypercholesterolemia, unspecified; I73.9 Peripheral vascular disease, unspecified
CPT/HCPCS: 36415; 70544; 70551; 71020; 82550; 82948; 84484; 93005; 94640; 96374; 96375; 97116; 97162; 97530; 99285; G0378; G8978; G8979; J2405; J2765

== ENCOUNTER 2016-09-05 14:40 | Emergency (ER) | payer MEDICARE, BC ==
[2016-09-05 14:44] VITALS: BMI 22.8
--- NOTE | 2016-09-05 14:59 | ED PDOC ---
Arrival/HPI - General Chief Complaint: Altered Mental Status Time Seen by Provider: 09/05/16 14:57 Historian: Spouse EM Caveat: Dementia - History of Present Illness Time/Duration: Prior to Arrival Symptom Onset: Gradual Symptom Course: Unchanged Severity Level: Moderate Activities at Onset: Rest Associated Symptoms (Text): 09/05/16 14:57 reports that she returned from buddhism approximately 1 PM today and she tried to get the patient out of bed and he was extremely lethargic and short of breath and diaphoretic. She called 911 and brought him to the hospital. Patient has a history of dementia and is a poor historian. He last had dialysis 2 days ago. Past Medical History - Infectious Disease Hx of Infectious Diseases: None - Tetanus Immunization Tetanus Immunization: Unknown - Cardiac Hx Cardiac Disorders: Yes Hx Hypertension: Yes - Pulmonary Hx Respiratory Disorders: Yes Hx Pneumonia: Yes - Neurological Hx Neurological Disorder: Yes HX Cerebrovascular Accident: Yes - HEENT Hx HEENT Disorder: Yes (WEARS RX GLASSES) Hx Epistaxis: Yes - Renal Hx Renal Disorder: Yes Hx Dialysis: Yes ( Schedule) Hx Renal Failure: Yes (ESRD) - Endocrine/Metabolic Hx Endocrine Disorders: Yes Hx Diabetes Mellitus Type 2: Yes - Hematological/Oncological Hx Blood Disorders: Yes Hx Cancer: Yes (Gastric) - Integumentary Hx Dermatological Disorder: No - Musculoskeletal/Rheumatological Hx Musculoskeletal Disorders: Yes Hx Falls: Yes (past) - Gastrointestinal Hx Gastrointestinal Disorders: Yes (diverticulitis/reflux) - Genitourinary/Gynecological Hx Genitourinary Disorders: Yes (pt voids) Hx Reproductive Disorders: Yes - Psychiatric Hx Psychophysiologic Disorder: No Hx Emotional Abuse: No Hx Substance Use: No - Surgical History Other/Comment: AV shunt placement. - Anesthesia Hx Anesthesia Reactions: No Hx Malignant Hyperthermia: No - Suicidal Assessment Feels Threatened In Home Enviroment: No Family/Social History - Physician Review Nursing Documentation Reviewed: Yes Family/Social History: Unknown Family HX Smoking Status: Former Smoker Hx Alcohol Use: No Hx Substance Use: No Hx Substance Use Treatment: No Allergies/Home Meds Allergies/Adverse Reactions: Allergies No Known Allergies Allergy (Verified 06/24/16 18:10) Home Medications: Home Meds Medication Instructions Recorded Confirmed Insulin Detemir [Levemir Flextouch] 5 units SQ BID 06/28/15 09/05/16 Linaclotide [Linzess] 145 mcg PO DAILY 09/22/15 09/05/16 Travoprost [Travatan Z] 1 drop BOTHEYES HS 11/23/15 09/05/16 Cholecalciferol [Vitamin D 1000 IU] 50,000 unit PO SAT 01/30/16 09/05/16 Metoclopramide [Reglan] 5 mg PO QID 01/30/16 09/05/16 Folic Acid 1 mg PO DAILY 04/22/16 09/05/16 Isosorbide Mononitrate [Imdur] 60 mg PO QAM 04/22/16 09/05/16 Omeprazole 20 mg PO QAM 04/22/16 09/05/16 Sevelamer [Renagel] 800 mg PO TID 04/22/16 09/05/16 Aspirin [Lo-Dose Aspirin EC] 81 mg PO DAILY 04/28/16 09/05/16 Benzonatate 100 mg PO TID 09/05/16 09/05/16 Losartan [Cozaar] 100 mg PO DAILY 09/05/16 09/05/16 Nebivolol [Bystolic] 5 mg PO DAILY 09/05/16 09/05/16 Tamsulosin [Flomax] 0.4 mg PO DAILY 09/05/16 09/05/16 Vit B Cmplx 3/Folic AC/C/Biot 1 tab PO DAILY 09/05/16 09/05/16 [[facility]] Review of Systems - Review of Systems Systems not reviewed;Unavailable: Dementia Physical Exam Vital Signs Temp Pulse Resp BP Pulse Ox 09/05/16 16:32 76 16 170/84 H 100 09/05/16 14:40 97.9 F 83 16 149/84 100 Temperature: Afebrile Blood Pressure: Normal Pulse: Regular Respiratory Rate: Normal Appearance: Positive for: Well-Appearing, Non-Toxic, Comfortable Pain Distress: None Mental Status: Positive for: Confused, other (Oriented 2 only) - Systems Exam Head: Present: Atraumatic, Normocephalic Pupils: Present: PERRL Extroacular Muscles: Present: EOMI Conjunctiva: Present: Normal Ears: Present: NORMAL TM, Normal Canal. No: Erythema Mouth: Present: Moist Mucous Membranes Pharnyx: No: ERYTHEMA, EXUDATE, TONSILS ENLARGED Neck: Present: Normal Range of Motion Respiratory/Chest: Present: Good Air Exchange, Rales (Bibasilar rales). No: Respiratory Distress, Accessory Muscle Use, Wheezes, Decreased Breath Sounds, Retracting, Rhonchi, Tachypneic, Tender to Palpation Cardiovascular: Present: Regular Rate and Rhythm, Normal S1, S2. No: Murmurs Abdomen: Present: Normal Bowel Sounds. No: Tenderness, Distention, Peritoneal Signs, Rebound, Guarding Upper Extremity: Present: Normal Inspection, Other (Left forearm AV fistula). No: Cyanosis, Edema Lower Extremity: Present: Normal Inspection. No: Edema Neurological: Present: GCS=15, CN II-XII Intact, Speech Normal, Motor Func Grossly Intact, Normal Cerebellar Funct Skin: Present: Warm, Dry, Normal Color. No: Rashes Medical Decision Making ED Course and Treatment: 09/05/16 15:39 EKG shows normal sinus rhythm rate approximately 80 with a primary AV block and a right bundle branch block and no acute ST or T-wave changes EKG is different from 08/03/2016 as the T waves are no longer inverted 09/05/16 16:56 CT scan of the head as read by the radiologist shows no acute findings. 09/05/16 17:31 Discussed in detail with , who will follow-up in the office tomorrow after the patient has dialysis. He will be discharged home accompanied by his . He reports that the patient has a severe progressive dementia. - Lab Interpretations Lab Results: 09/05/16 14:50 09/05/16 15:30 Lab Results 09/05/16 17:00: Urine Opiates Screen Negative, Urine Methadone Screen Negative, Ur Barbiturates Screen Negative, Ur Phencyclidine Scrn Negative, Ur Amphetamines Screen Negative, U Benzodiazepines Scrn Negative, U Oth Cocaine Metabols Negative, U Cannabinoids Screen Negative 09/05/16 17:00: Urine Color Yellow, Urine Appearance Clear, Urine pH 8.5, Ur Specific [place] 1.020, Urine Protein 100 H, Urine Glucose (UA) 100 H, Urine Ketones Negative, Urine Blood Negative, Urine Nitrate Negative, Urine Bilirubin Negative, Urine Urobilinogen 0.2, Ur Leukocyte Esterase Negative, Urine RBC 0 - 2, Urine WBC 1 - 3, Ur Epithelial Cells Many, Amorphous Sediment Few, Urine Bacteria Many, Urine Other Fiber 09/05/16 15:30: Sodium 137, Chloride 97 L, Potassium 4.7, Carbon Dioxide 27, Anion Gap 18, BUN 52 H, Creatinine 7.4 H, Est GFR ( Amer) 9, Est GFR (Non -Af Amer) 7, Random Glucose 89, Calcium 9.1, Phosphorus 4.5, Magnesium 2.1, Total Bilirubin 0.4, AST 20, ALT 15, Alkaline Phosphatase 68, Lactate Dehydrogenase 391, Total Creatine Kinase 62, Troponin I 0.04 D, Total Protein 7.9, Albumin 4.0, Globulin 3.9, Albumin/Globulin Ratio 1.0 L 09/05/16 14:50: pO2 72 H, VBG pH 7.39, VBG pCO2 45.0, VBG HCO3 27.2, VBG Total CO2 28.6 H, VBG O2 Sat (Calc) 96.5 H, VBG Base Excess 1.7, VBG Potassium 6.5 H* , Sodium 134.0, Chloride 100.0, Glucose 92, Lactate 2.1, FiO2 21.0, Venous Blood Potassium 6.5 H* 09/05/16 14:50: PT 10.8, INR 1.00, APTT 26.9 09/05/16 14:50: WBC 6.1 D, RBC 4.01, Hgb 12.1 L, Hct 37.8 L, MCV 94.3, MCH 30.2 , MCHC 32.0, RDW 18.5 H, Plt Count 214, MPV 11.1 H, Gran % 55.5, Lymph % (Auto) 29.5, [place] % (Auto) 13.2 H, Eos % (Auto) 1.3 L, Baso % (Auto) 0.5, Gran # 3.36, Lymph # 1.8, [place] # 0.8 H, Eos # 0.1, Baso # 0.03 - RAD Interpretation Radiology Orders: 09/05/16 15:04 HEAD W/O CONTRAST [CT] Stat 09/05/16 15:05 CHEST PORTABLE [RAD] Stat Chest 1 view shows no infiltrate or effusion or cardiomegaly. There are bilateral increased markings. Specialty Trimmer: ED Physician Disposition/Present on Arrival - Present on Arrival Any Indicators Present on Arrival: No History of DVT/PE: No History of Uncontrolled Diabetes: No Urinary Catheter: No History of Decub. Ulcer: No History Surgical Site Infection Following: None - Disposition Have Diagnosis and Disposition been Completed?: Yes Diagnosis: Altered mental status, ESRD (end stage renal disease), Dementia Disposition: HOME/ ROUTINE Disposition Time: 17:32 Patient Plan: Discharge Patient Problems: Current Active Problems Problem Status Onset Altered mental status Acute Dementia Acute ESRD (end stage renal disease) Acute Condition: FAIR Discharge Instructions (ExitCare): Dementia (ED), Altered Mental Status (ED) Additional Instructions: Follow-up with Dr. Nazario tomorrow after dialysis. Follow-up in the ER as needed. Referrals: PCP,NO [Primary Care Provider] - Follow up with primary
[2016-09-05 15:09] LABS: ADD MANUAL DIFF? NO
[2016-09-05 15:14] VITALS: RESP 16; TEMP 97.9; O2SAT 100
[2016-09-05 15:14] LABS: VENOUS BLOOD GAS BASE EXCESS 1.7 mmol/L (0.0-2.0); VENOUS BLOOD PH 7.39 (7.32-7.43)
[2016-09-05 15:30] LABS: PARTIAL THROMBOPLASTIN TIME 26.9 Seconds (23.7-30.8)
[2016-09-05 15:35] LABS: BASO # 0.03 K/mm3 (0.0-2.0); BASO % 0.5 % (0.0-3.0); EOS # 0.1 (0.0-0.7); EOS % 1.3 % (1.5-5.0); GRAN # 3.36 (1.4-6.5); GRAN % 55.5 % (50.0-68.0); HEMATOCRIT 37.8 % (42.0-52.0); LYMPH # 1.8 (1.2-3.4); LYMPH % 29.5 % (22.0-35.0); MEAN CELL VOLUME 94.3 fL (80.0-105.0); MEAN CORPUSCULAR HEMOGLOBIN 30.2 pg (25.0-35.0); MEAN PLATELET VOLUME 11.1 fl (7.0-11.0); MONO # 0.8 (0.1-0.6); MONO % 13.2 % (1.0-6.0); PLATELET COUNT 214 10^3/uL (120.0-450.0); RED CELL DISTRIBUTION WIDTH 18.5 % (11.5-14.5); WHITE BLOOD COUNT 6.1 10^3/ul (4.5-11.0)
[2016-09-05 15:58] LABS: BILIRUBIN,TOTAL 0.4 mg/dL (0.2-1.3); CALCIUM 9.1 mg/dL (8.4-10.5); MAGNESIUM 2.1 mg/dL (1.7-2.2); PHOSPHOROUS 4.5 mg/dL (2.5-4.5); POTASSIUM 4.7 mmol/L (3.6-5.0); TOTAL PROTEIN 7.9 g/dL (5.8-8.3)
[2016-09-05 16:09] LABS: TROPONIN I 0.04 ng/mL
[2016-09-05 16:34] VITALS: BP 170/84; PULSE 76
--- NOTE | 2016-09-05 16:55 | CT ---
PROCEDURE: CT HEAD WITHOUT CONTRAST. HISTORY: ams COMPARISON: 08/02/2016. CT head. 08/03/2016 MRI brain TECHNIQUE: Axial computed tomography images were obtained through the head/brain without intravenous contrast. Radiation dose: Total exam DLP = 744.18 mGy-cm. This CT exam was performed using one or more of the following dose reduction techniques: Automated exposure control, adjustment of the mA and/or kV according to patient size, and/or use of iterative reconstruction technique. FINDINGS: HEMORRHAGE: No intracranial hemorrhage. BRAIN: No mass effect or edema. 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 VENTRICLES: Unremarkable. No hydrocephalus. CALVARIUM: Unremarkable. PARANASAL SINUSES: Unremarkable as visualized. No significant inflammatory changes. MASTOID AIR CELLS: Unremarkable as visualized. No inflammatory changes. OTHER FINDINGS: None. IMPRESSION: No acute intracranial abnormalities. No significant findings to account for the clinical presentation. No significant interval change compared to the prior examination(s).
[2016-09-05 17:13] LABS: PH,URINE 8.5 (4.7-8.0); URINE BILIRUBIN NEGATIVE (NEGATIVE); URINE BLOOD NEGATIVE (NEGATIVE); URINE GLUCOSE (UA) 100 mg/dL (NEGATIVE); URINE KETONE NEGATIVE (NEGATIVE); URINE LEUKOCYTE ESTERASE NEGATIVE Leu/uL (NEGATIVE); URINE PROTEIN 100 mg/dL (<30 mg/dL); URINE UROBILINOGEN 0.2 E.U./dL (<1 E.U./dL)
[2016-09-05 17:25] LABS: URINE APPEARANCE CLEAR (CLEAR); URINE COLOR YELLOW (YELLOW)
[2016-09-05 17:27] LABS: URINE RBC 0 - 2 /hpf (0-2)
[2016-09-05 17:29] LABS: URINE BACTERIA MANY (NEG)
[2016-09-05 17:30] LABS: URINE AMORPHOUS SEDIMENT FEW; URINE EPITHELIAL CELLS MANY /hpf (0-5)
--- NOTE | 2016-09-06 10:41 | RAD ---
HISTORY: ams COMPARISON: 08/03/2016 FINDINGS: LUNGS: No active pulmonary disease. PLEURA: No significant pleural effusion identified, no pneumothorax apparent. CARDIOVASCULAR: Normal. OSSEOUS STRUCTURES: No significant abnormalities. VISUALIZED UPPER ABDOMEN: Normal. OTHER FINDINGS: None. IMPRESSION: No active disease.
--- NOTE | 2016-09-06 10:47 | CARD ---
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
== END 2016-09-05 18:00 | disposition home or self-care (01) ==
LOC: ED 14:40
DX: F03.90 Unspecified dementia, unspecified severity, without behavioral disturbance, psychotic disturbance, mood disturbance, and anxiety (principal); R41.82 Altered mental status, unspecified; I12.0 Hypertensive chronic kidney disease with stage 5 chronic kidney disease or end stage renal disease; N18.6 End stage renal disease; Z99.2 Dependence on renal dialysis
CPT/HCPCS: 70450; 71010; 80053; 81001; 82550; 82803; 83615; 83735; 84100; 84484; 85025; 85610; 85730; 87040; 87086; 93005; 99285; G0480

== ENCOUNTER 2016-11-04 19:19 | Inpatient (IN) | payer MEDICARE, BC ==
[2016-11-04 19:37] VITALS: BMI 22.6
--- NOTE | 2016-11-04 19:46 | ED PDOC ---
Arrival/HPI - General Chief Complaint: GI Problem Time Seen by Provider: 11/04/16 19:42 - History of Present Illness Narrative History of Present Illness (Text): 11/04/16 19:46 85-year-old male with a history of dementia, end-stage renal disease on hemodialysis, with nausea, vomiting at home, and lethargy. Patient is a poor historian and his history is provided by patient's family member. No other complaints. Past Medical History - Provider Review Nursing Documentation Reviewed: Yes - Infectious Disease Hx of Infectious Diseases: None - Tetanus Immunization Tetanus Immunization: Unknown - Cardiac Hx Cardiac Disorders: Yes Hx Hypertension: Yes - Pulmonary Hx Respiratory Disorders: Yes Hx Pneumonia: Yes - Neurological Hx Neurological Disorder: Yes HX Cerebrovascular Accident: Yes - HEENT Hx HEENT Disorder: Yes (WEARS RX GLASSES) Hx Epistaxis: Yes - Renal Hx Renal Disorder: Yes Hx Dialysis: Yes ( Schedule) Hx Renal Failure: Yes (ESRD) - Endocrine/Metabolic Hx Endocrine Disorders: Yes Hx Diabetes Mellitus Type 2: Yes - Hematological/Oncological Hx Blood Disorders: Yes Hx Cancer: Yes (Gastric) - Integumentary Hx Dermatological Disorder: No - Musculoskeletal/Rheumatological Hx Musculoskeletal Disorders: Yes Hx Falls: Yes (past) - Gastrointestinal Hx Gastrointestinal Disorders: Yes (diverticulitis/reflux) - Genitourinary/Gynecological Hx Genitourinary Disorders: Yes (pt voids) Hx Reproductive Disorders: Yes - Psychiatric Hx Psychophysiologic Disorder: No Hx Emotional Abuse: No Hx Substance Use: No - Surgical History Other/Comment: AV shunt placement. - Anesthesia Hx Anesthesia Reactions: No Hx Malignant Hyperthermia: No - Suicidal Assessment Feels Threatened In Home Enviroment: No Family/Social History Family/Social History: Unknown Family HX Smoking Status: Former Smoker Hx Alcohol Use: No Hx Substance Use: No Hx Substance Use Treatment: No Allergies/Home Meds Allergies/Adverse Reactions: Allergies No Known Allergies Allergy (Verified 11/04/16 19:37) Home Medications: Home Meds Medication Instructions Recorded Confirmed Insulin Detemir [Levemir Flextouch] 5 units SQ BID 06/28/15 11/04/16 Linaclotide [Linzess] 145 mcg PO DAILY 09/22/15 11/04/16 Travoprost [Travatan Z] 1 drop BOTHEYES HS 11/23/15 11/04/16 Cholecalciferol [Vitamin D 1000 IU] 50,000 unit PO SAT 01/30/16 11/04/16 Metoclopramide [Reglan] 5 mg PO QID 01/30/16 11/04/16 Folic Acid 1 mg PO DAILY 04/22/16 11/04/16 Isosorbide Mononitrate [Imdur] 60 mg PO QAM 04/22/16 11/04/16 Omeprazole 20 mg PO QAM 04/22/16 11/04/16 Sevelamer [Renagel] 800 mg PO TID 04/22/16 11/04/16 Aspirin [Lo-Dose Aspirin EC] 81 mg PO DAILY 04/28/16 11/04/16 Benzonatate 100 mg PO TID 09/05/16 11/04/16 Losartan [Cozaar] 100 mg PO DAILY 09/05/16 11/04/16 Nebivolol [Bystolic] 5 mg PO DAILY 09/05/16 11/04/16 Tamsulosin [Flomax] 0.4 mg PO DAILY 09/05/16 11/04/16 Vit B Cmplx 3/Folic AC/C/Biot 1 tab PO DAILY 09/05/16 11/04/16 [[facility]] Review of Systems - Review of Systems Systems not reviewed;Unavailable: Dementia Physical Exam - Physical Exam Narrative Physical Exam (Text): Physical exam Patient appears age appropriate in no respiratory distress - Systems Exam Head: Present: Atraumatic, Normocephalic Pupils: Present: PERRL Extroacular Muscles: Present: EOMI Conjunctiva: Present: Normal Mouth: Present: Moist Mucous Membranes Neck: Present: Normal Range of Motion. No: MIDLINE TENDERNESS, Paraspinal Tenderness Respiratory/Chest: Present: Clear to Auscultation, Good Air Exchange. No: Respiratory Distress, Accessory Muscle Use, Tachypneic Cardiovascular: Present: Regular Rate and Rhythm, Normal S1, S2, Peripheal Pulses Present. No: Murmurs Abdomen: Present: Normal Bowel Sounds. No: Tenderness, Distention, Peritoneal Signs, Rebound, Guarding Back: Present: Normal Inspection. No: Midline Tenderness, Paraspinal Tenderness Upper Extremity: Present: Normal Inspection. No: Cyanosis, Edema Lower Extremity: Present: Normal Inspection. No: Edema Neurological: Present: GCS=15, Speech Normal, cranial nerves II through XII fully intact with no cerebellar abnormality, neurosensory fully intact. No focal neurological deficits. Skin: Present: Warm, Dry, Normal Color. No: Rashes Lymphatic: Present: OX3, NI, NC Vital Signs Reviewed: Yes Vital Signs Temp Pulse Resp BP Pulse Ox 11/05/16 00:53 99.0 F 69 20 119/64 98 11/04/16 23:49 73 21 150/81 100 11/04/16 22:22 80 17 164/80 H 100 11/04/16 21:42 70 25 H 155/99 H 100 11/04/16 20:25 100.6 F H 11/04/16 19:37 98.5 F 81 29 H 159/93 H 99 11/04/16 19:35 28 H 11/04/16 19:33 98.5 F 81 29 H 156/93 H 100 Temperature: Afebrile Blood Pressure: Hypertensive Pulse: Regular Respiratory Rate: Normal Appearance: Positive for: Non-Toxic, Comfortable Pain Distress: None Mental Status: No: Agitated, Lethargic Medical Decision Making ED Course and Treatment: Previous records reviewed, patient was seen in the emergency department on with lethargy and diaphoresis. He was discharged home with outpatient follow- up the next day. pt in the ER with nausea and lethargy no acute PE findings RR recorded is high on reeval, pt in no resp distress, RR 20 EKG shows RBBB, 85bpm, no ST-segment elevations. New ST-depressions in V3, V4, V5 vs 09/05/16 NTG and asa ordered pt's informed 11/04/16 22:00 Patient's chest x-ray shows increased vascular congestion, questionable right- sided infiltrate. No pneumothorax, no effusions. Interpreted by me. 11/04/16 22:04 CT abdomen pelvis: IMPRESSION: Fecal impaction; gallstones; nonobstructing right inguinal hernia containing ileum; left inguinal hernia containing bladder; interstitial disease and atelectasis at the lung bases; cardiomegaly and atherosclerotic disease 11/04/16 23:37 CMP not back called lab, was informed that it was hemolyzed at 830pm RN informed pt in no distress, sleeping 11/05/16 00:59 Pt with elevated troponin at 1.6 Case discussed with car trimmer who will evaluate patient for ICU admission 11/05/16 01:56 Patient was evaluated by Dr. Jain who recommends that patient is not ICU candidate and is stable for telemetry. Agrees with heparin bolus/drip 11/05/16 02:[address] Dewey, no callback dw Dr. Nazario in detail, accepted pt to his service dw Dr. Farooq, resident pt resting comfortably in bed, denies complaints, watching TV 11/05/16 04:08 second troponin elevated, Dr. Jain reevaluated pt in the ER, accepted to the MICU - Critical Care Critical Care Minutes: 30 minutes - Lab Interpretations Lab Results: 11/04/16 19:45 11/05/16 00:15 Lab Results 11/05/16 00:15: Sodium 139, Potassium 4.4, Chloride 96 L, Carbon Dioxide 28, Anion Gap 19, BUN 31 H, Creatinine 6.2 H, Est GFR ( Amer) 10, Est GFR ( Non-Af Amer) 9, Random Glucose 155 H, Calcium 8.9, Total Bilirubin 0.7, AST 38, ALT 30, Alkaline Phosphatase 71, Lactate Dehydrogenase 557, Total Creatine Kinase 241 H, CK-MB (CK-2) 14.5 H, CK-MB (CK-2) % 6.0 H, Troponin I 1.60 H* D, Total Protein 7.6, Albumin 4.0, Globulin 3.6, Albumin/Globulin Ratio 1.1, Lipase 104 11/04/16 19:56: POC Glucose (mg/dL) 140 H 11/04/16 19:45: PT 11.2, INR 1.04, APTT 22.5 L 11/04/16 19:45: WBC 12.8 H D, RBC 4.62, Hgb 13.7 L, Hct 42.3, MCV 91.6, MCH 29.7 , MCHC 32.4, RDW 17.2 H, Plt Count 165, Neutrophils % (Manual) 86 H, Band Neutrophils % 4 H, Lymphocytes % (Manual) 5 L, Monocytes % (Manual) 5, Platelet Evaluation Normal - RAD Interpretation Narrative RAD Interpretations (Text): EXAM: CT Abdomen and Pelvis Without Intravenous Contrast Dictated and Authenticated by: Ramonita Armas MD FINDINGS: Lower thorax: The heart is enlarged. There are coronary calcifications. There is a hiatal hernia. There is increase in interstitial markings at the lung bases. There are patchy opacities in the lower lobes. ABDOMEN: Liver: unremarkable Gallbladder and bile ducts: Gallbladder is partially distended. There are small dependent calcified stones. Common duct is not well-visualized. Pancreas: unremarkable Spleen: unremarkable Adrenals: There is adrenal thickening Kidneys and ureters: There are bilateral renal cysts. There is minimal calcification in the wall of a left renal cyst. There are renovascular calcifications bilaterally. There is no pelvocaliectasis or ureterectasis. Stomach and bowel: Stomach is almost empty. Rotation is normal. Streak and motion limits evaluation of the bowel. There is no small bowel obstruction. Distal ileal loops project into a nonobstructing right inguinal hernia. Terminal ileum is unremarkable. Appendix is unremarkable. There is a large amount of stool in the distal descending colon and sigmoid. There is a large fecal bolus in the rectum. Appendix: See above. PELVIS: Bladder: Bladder is partially distended. There is mild bladder wall thickening. Reproductive: Prostate is enlarged. Seminal vesicles are unremarkable. ABDOMEN and PELVIS: Intraperitoneal space: There is no free air.There is no free fluid. Bones/joints: There are degenerative changes in the osseus structures. Soft tissues: There is a small fat containing umbilical hernia. There is a left inguinal hernia containing bladder. There is a nonobstructing right inguinal hernia containing distal ileum. Vasculature: There are multiple phleboliths.There are vascular calcifications. Lymph nodes: There is no pathologic adenopathy. IMPRESSION: Fecal impaction; gallstones; nonobstructing right inguinal hernia containing ileum; left inguinal hernia containing bladder; interstitial disease and atelectasis at the lung bases; cardiomegaly and atherosclerotic disease Additional findings as described above. Radiology Orders: 11/04/16 19:50 ABD & PELVIS W/O PO OR IV CONT [CT] Stat CHEST PORTABLE [RAD] Stat [facility] [employer]er: Radiologist - Medication Orders Current Medication Orders: Albuterol/Ipratropium (Duoneb 3 Mg/0.5 Mg (3 Ml) Ud) 3 ml IH [id number] FRANCISCO JAVIER Albuterol/Ipratropium (Duoneb 3 Mg/0.5 Mg (3 Ml) Ud) 3 ml IH Q2H PRN PRN Reason: Shortness of Breath Aspirin (Ecotrin) 81 mg PO DAILY FRANCISCO JAVIER Atorvastatin Calcium (Lipitor) 40 mg PO DIN FRANCISCO JAVIER Cholecalciferol (Vitamin D) iu PO SAT [facility] Clopidogrel Bisulfate (Plavix) 75 mg PO DAILY FRANCISCO JAVIER Donepezil HCl (Aricept) 10 mg PO HS FRANCISCO JAVIER Folic Acid (Folic Acid) [address] [facility] Heparin Sodium/Dextrose (Heparin 25,000 Units/250ml In D5w) 25,000 units in 250 mls @ 8.11 mls/hr IV .Q24H FRANCISCO JAVIER; 12 UNITS/KG/HR PRN Reason: Protocol Last Admin: 11/05/16 01:38 Dose: 8.11 mls/hr Doxycycline Hyclate 100 mg/ (Sodium Chloride) 100 mls @ 100 mls/hr IVPB Q12 FRANCISCO JAVIER PRN Reason: Protocol Ceftriaxone Sodium (Rocephin 1 Gram Ivpb) 1 gm in 100 mls @ 100 mls/hr IVPB DAILY FRANCISCO JAVIER PRN Reason: Protocol Insulin Human Lispro (Humalog Low) 0 units SC ACHS FRANCISCO JAVIER PRN Reason: Protocol Isosorbide Mononitrate (Imdur) [address] [facility] Losartan Potassium (Cozaar) [address] [facility] Metoclopramide HCl (Reglan) [address] [facility] Non-Formulary Medication (Linaclotide [Linzess]) [address] [facility] Non-Formulary Medication (Nebivolol [Bystolic]) [address] [facility] Non-Formulary Medication (Travoprost [Travatan Z]) [address] [facility] Pantoprazole Sodium (Protonix Inj) [address] [facility] Sevelamer HCl (Renagel) [address] [facility] Tamsulosin HCl (Flomax) 0.[address] [facility] Vitamin B Complex/Vit C/Folic Acid (Nephro-Jaylin) [address] [facility] Discontinued Medications Acetaminophen (Tylenol 650 Mg Supp) 650 mg RC STAT STA Stop: 11/04/16 20:19 Last Admin: 11/04/16 21:00 Dose: 650 mg Re-Assess: MAR Pain/Vitals Document 11/04/16 22:00 IN (Rec: 11/05/16 02:58 IN [id number]) Pain Reassessment Is This A Pain ReAssessment? No Sleep Is patient sleeping during reassessment? Yes Aspirin (Aspirin Chewable) 162 mg PO STAT STA Stop: 11/04/16 21:12 Last Admin: 11/04/16 22:22 Dose: 162 mg Clopidogrel Bisulfate (Plavix) 300 mg PO STAT STA Stop: 11/05/16 02:54 Last Admin: 11/05/16 03:36 Dose: 300 mg Heparin Sodium (Porcine) (Heparin) 4,700 units 70 units/kg (4700 units) IV ONCE ONE PRN Reason: Protocol Stop: 11/05/16 00:56 Last Admin: 11/05/16 01:39 Dose: 4,700 units Famotidine (Pepcid 20mg/50ml Premix) 20 mg in 50 mls @ 100 mls/hr IV STAT STA Stop: 11/04/16 20:18 Last Admin: 11/04/16 20:30 Dose: 100 mls/hr Vancomycin HCl (Vancomycin 1gm) 1 gm in 250 mls @ 133.333 mls/hr IVPB STAT STA PRN Reason: Protocol Stop: 11/04/16 22:10 Last Admin: 11/04/16 21:30 Dose: 133.333 mls/hr Piperacillin Sod/Tazobactam Sod (Zosyn 2.25 Gm In 0.9% 100 Ml) 2.25 gm in 100 mls @ 200 mls/hr IVPB STAT STA PRN Reason: Protocol Stop: 11/04/16 20:59 Last Admin: 11/04/16 23:00 Dose: 200 mls/hr Nitroglycerin (Nitrostat Sl Tab) 0.3 mg SL STAT STA Stop: 11/04/16 21:12 Last Admin: 11/04/16 22:22 Dose: 0.3 mg Ondansetron HCl (Zofran Inj) 4 mg IVP STAT STA Stop: 11/04/16 19:50 Last Admin: 11/04/16 20:30 Dose: 4 mg Disposition/Present on Arrival - Present on Arrival Any Indicators Present on Arrival: No History of DVT/PE: No History of Uncontrolled Diabetes: No Urinary Catheter: No History of Decub. Ulcer: No History Surgical Site Infection Following: None - Disposition Have Diagnosis and Disposition been Completed?: Yes Diagnosis: NSTEMI (non-ST elevated myocardial infarction) Disposition: HOSPITALIZED Disposition Time: 02:24 Patient Plan: Admission Patient Problems: Current Active Problems Problem Status Onset NSTEMI (non-ST elevated myocardial infarction) Acute Condition: FAIR
[2016-11-04] MEDS ORDERED: Famotidine 20mg/50ml 20 MG/50 ML BAG IV STA (19:49)
[2016-11-04] MEDS ORDERED: Vancomycin 1gm in NS 250ml 1 GM/250 ML BAG IVPB STA (20:18)
[2016-11-04] MEDS ORDERED: Piperacillin/Tazobact 2.25gm 2.25 GM/100 ML BAG IVPB STA (20:30)
[2016-11-04 20:42] LABS: HEMOGLOBIN 13.7 g/dL (14.0-18.0); MEAN CELL VOLUME 91.6 fl (80.0-105.0); MEAN CORPUSCULAR HEMOGLOBIN 29.7 pg (25.0-35.0); MEAN CORPUSCULAR HGB CONC 32.4 g/dl (31.0-37.0); PLATELET COUNT 165 10^3/uL (120.0-450.0); RBC 4.62 10^6/uL (3.5-6.1); RED CELL DISTRIBUTION WIDTH 17.2 % (11.5-14.5); WHITE BLOOD COUNT 12.8 10^3/ul (4.5-11.0)
[2016-11-04 20:47] LABS: INR 1.04 (0.93-1.08); PARTIAL THROMBOPLASTIN TIME 22.5 Seconds (23.7-30.8); PROTHROMBIN TIME 11.2 Seconds (9.9-11.8)
[2016-11-04 21:32] LABS: BAND 4 % (0-2); LYMPHOCYTE 5 % (22.0-35.0)
[2016-11-04 21:33] LABS: MONOCYTE 5 % (1.0-6.0); NEUTROPHIL 86 % (50.0-70.0); PLATELET ESTIMATE NORMAL (NORMAL)
--- NOTE | 2016-11-04 21:43 | CT ---
EXAM: CT Abdomen and Pelvis Without Intravenous Contrast CLINICAL HISTORY: 85 years old, male; Signs and symptoms; Vomiting; Additional info: N/v TECHNIQUE: Axial computed tomography images of the abdomen and pelvis without intravenous contrast. All CT scans at this facility use one or more dose reduction techniques, viz.: automated exposure control; ma/kV adjustment per patient size (including targeted exams where dose is matched to indication; i.e. head); or iterative reconstruction technique. Coronal and sagittal reformatted images were created and reviewed. EXAM DATE/TIME: 11/04/2016 7:50 PM COMPARISON: CT - CHEST,ABD,PEL W/IV PO CONTRAST 06/21/2016 1:34:29 PM FINDINGS: Lower thorax: The heart is enlarged. There are coronary calcifications. There is a hiatal hernia. There is increase in interstitial markings at the lung bases. There are patchy opacities in the lower lobes. ABDOMEN: Liver: unremarkable Gallbladder and bile ducts: Gallbladder is partially distended. There are small dependent calcified stones. Common duct is not well-visualized. Pancreas: unremarkable Spleen: unremarkable Adrenals: There is adrenal thickening Kidneys and ureters: There are bilateral renal cysts. There is minimal calcification in the wall of a left renal cyst. There are renovascular calcifications bilaterally. There is no pelvocaliectasis or ureterectasis. Stomach and bowel: Stomach is almost empty. Rotation is normal. Streak and motion limits evaluation of the bowel. There is no small bowel obstruction. Distal ileal loops project into a nonobstructing right inguinal hernia. Terminal ileum is unremarkable. Appendix is unremarkable. There is a large amount of stool in the distal descending colon and sigmoid. There is a large fecal bolus in the rectum. Appendix: See above. PELVIS: Bladder: Bladder is partially distended. There is mild bladder wall thickening. Reproductive: Prostate is enlarged. Seminal vesicles are unremarkable. ABDOMEN and PELVIS: Intraperitoneal space: There is no free air.There is no free fluid. Bones/joints: There are degenerative changes in the osseus structures. Soft tissues: There is a small fat containing umbilical hernia. There is a left inguinal hernia containing bladder. There is a nonobstructing right inguinal hernia containing distal ileum. Vasculature: There are multiple phleboliths.There are vascular calcifications. Lymph nodes: There is no pathologic adenopathy. IMPRESSION: Fecal impaction; gallstones; nonobstructing right inguinal hernia containing ileum; left inguinal hernia containing bladder; interstitial disease and atelectasis at the lung bases; cardiomegaly and atherosclerotic disease Additional findings as described above.
[2016-11-05 00:38] LABS: ALB/GLOB RATIO 1.1 (1.1-1.8); CALCIUM 8.9 mg/dL (8.4-10.5)
[2016-11-05 00:53] LABS: CK-MB 14.5 ng/mL (0.0-3.6); TROPONIN I 1.6 ng/mL
[2016-11-05] MEDS: Heparin 25,000units in D5W 25,000 UNITS/250 ML BAG IV SCH (01:38)
[2016-11-05] MEDS ORDERED: Albuterol-Ipratrop 3 mg / 0.5 (3 ml) UD IH PRN (03:26)
[2016-11-05 04:02] LABS: CK-MB 27.9 ng/mL (0.0-3.6)
[2016-11-05 04:07] LABS: TROPONIN I 5.28 ng/mL
[2016-11-05 04:24] LABS: CK MB% 6.2 % (2.5-3.0)
--- NOTE | 2016-11-05 06:20 | CP.PCM.CON ---
<Edwin Reese - Last Filed: 11/05/16 09:02> History of Present Illness - History of Present Illness History of Present Illness: ICU consult note for Dr. Jain CC: Nausea and emesis, NSTEMI HPI: This is an 85 yo AA M with PMH of ESRD on HD (//), prior HCAP, CAD s/p stenting, GI bleeds, CVA, Gastric cancer, Mitral valve prolapse, DM, and dementia who presents with complaint of nausea and emesis, and was found to have an elevated trop suggestive of NSTEMI. HPI and ROS are limited as patient is demented and is entirely unreliable as a historian. Family not at bedside at time of exam. As per ED charting, family reported increased lethargy concurrent with nausea and emesis. Patient denies all symptoms, does not understand why he is in the hospital, and has no insight into his condition; he is oriented only to self. Reported to still make urine despite ESRD on HD. In the ED, initial trop was 1.6, with EKG notable for new ST-depressions in V3, V4 , and V5 not present in prior EKG September 05. Repeat trop 5.28, so patient was started on Plavix in addition to a heparin drip (started after first trop), and was accepted to the ICU. PMH: as above PSH: AV fistula in L forearm FHx: none listed in prior charting SHx: as per charting, former smoker, no reported EtOH or Illicits PMD: Dr. Nazario Review of Systems - Review of Systems Systems not reviewed;Unavailable: Dementia Past Patient History - Infectious Disease Hx of Infectious Diseases: None - Tetanus Immunizations Tetanus Immunization: Unknown - Past Medical History & Family History Past Medical History?: Yes - Past Social History Smoking Status: Former Smoker - CARDIAC Hx Cardiac Disorders: Yes Hx Hypertension: Yes - PULMONARY Hx Respiratory Disorders: Yes Hx Pneumonia: Yes - NEUROLOGICAL Hx Neurological Disorder: Yes HX Cerebrovascular Accident: Yes - HEENT Hx HEENT Problems: Yes (WEARS RX GLASSES) Hx Epistaxis: Yes - RENAL Hx Chronic Kidney Disease: Yes Hx Dialysis: Yes ( Schedule) Hx Renal Failure: Yes (ESRD) - ENDOCRINE/METABOLIC Hx Endocrine Disorders: Yes Hx Diabetes Mellitus Type 2: Yes - HEMATOLOGICAL/ONCOLOGICAL Hx Blood Disorders: Yes Hx Cancer: Yes (Gastric) - INTEGUMENTARY Hx Dermatological Problems: No - MUSCULOSKELETAL/RHEUMATOLOGICAL Hx Musculoskeletal Disorders: Yes Hx Falls: Yes (past) - GASTROINTESTINAL Hx Gastrointestinal Disorders: Yes (diverticulitis/reflux) - GENITOURINARY/GYNECOLOGICAL Hx Genitourinary Disorders: Yes (pt voids) Hx Reproductive Disorders: Yes - PSYCHIATRIC Hx Psychophysiologic Disorder: No Hx Emotional Abuse: No Hx Substance Use: No - SURGICAL HISTORY Other/Comment: AV shunt placement. - ANESTHESIA Hx Anesthesia Reactions: No Hx Malignant Hyperthermia: No Meds Allergies/Adverse Reactions: Allergies Allergy/AdvReac Type Severity Reaction Status Date / Time No Known Allergies Allergy Verified 11/04/16 19:37 - Medications Medications: Current Medications Albuterol/Ipratropium (Duoneb 3 Mg/0.5 Mg (3 Ml) Ud) 3 ml IH [id number] [facility] Albuterol/Ipratropium (Duoneb 3 Mg/0.5 Mg (3 Ml) Ud) 3 ml IH Q2H PRN PRN Reason: Shortness of Breath Aspirin (Ecotrin) 81 mg PO DAILY [facility] Atorvastatin Calcium (Lipitor) 40 mg PO DIN [facility] Clopidogrel Bisulfate (Plavix) 75 mg PO DAILY [facility] Donepezil HCl (Aricept) 10 mg PO HS [facility] Ergocalciferol (Drisdol 50,000 Intl Units Cap) 1 cap PO SAT [facility] Folic Acid (Folic Acid) 1 mg PO DAILY [facility] Heparin Sodium/Dextrose (Heparin 25,000 Units/250ml In D5w) 25,000 units in 250 mls @ 8.11 mls/hr IV .Q24H [facility]; 12 UNITS/KG/HR PRN Reason: Protocol Last Admin: 11/05/16 01:38 Dose: 8.11 mls/hr Doxycycline Hyclate 100 mg/ (Sodium Chloride) 100 mls @ 100 mls/hr IVPB Q12 [facility] PRN Reason: Protocol Ceftriaxone Sodium (Rocephin 1 Gram Ivpb) 1 gm in 100 mls @ 100 mls/hr IVPB DAILY [facility] PRN Reason: Protocol Insulin Human Lispro (Humalog Low) 0 units SC ACHS [facility] PRN Reason: Protocol Isosorbide Mononitrate (Imdur) 60 mg PO QAM [facility] Latanoprost (Xalatan Opht) 0 ml OU HS [facility] Losartan Potassium (Cozaar) 100 mg PO DAILY [facility] Metoclopramide HCl (Reglan) 5 mg PO QID [facility] Linaclotide [Linzess (] 145 Mcg (Home Med)) 145 mcg PO DAILY [facility] Nebivolol [Bystolic] (5 Mg (Home Med)) 5 mg PO DAILY [facility] Pantoprazole Sodium (Protonix Inj) 40 mg IVP Q12 [facility] Sevelamer HCl (Renagel) 800 mg PO TID [facility] Tamsulosin HCl (Flomax) 0.4 mg PO DAILY [facility] Vitamin B Complex/Vit C/Folic Acid (Nephro-Jaylin) 1 tab PO DAILY [facility] Physical Exam - Constitutional Appears: Non-toxic, No Acute Distress, Chronically Ill - Head Exam Head Exam: ATRAUMATIC, NORMAL INSPECTION, NORMOCEPHALIC - Eye Exam Eye Exam: EOMI, Normal appearance, PERRL. absent: Conjunctival injection, Scleral icterus Pupil Exam: absent: Fixed, Irregular, Unequal - ENT Exam ENT Exam: Mucous Membranes Moist - Neck Exam Neck exam: Negative for: Lymphadenopathy, Thyromegaly - Respiratory Exam Respiratory Exam: Decreased Breath Sounds, Clear to Auscultation Bilateral, NORMAL BREATHING PATTERN. absent: Accessory Muscle Use, Chest Wall Tenderness, Rales, Rhonchi, Wheezes - Cardiovascular Exam Cardiovascular Exam: REGULAR RHYTHM, RRR, +S1, +S2. absent: Bradycardia, Tachycardia, Irregular Rhythm, JVD, +S4 - GI/Abdominal Exam GI & Abdominal Exam: Normal Bowel Sounds, Soft. absent: Diminished Bowel Sounds , Distended, Firm, Hyperactive Bowel Sounds, Hypoactive Bowel Sounds, Rigid, Tenderness - Extremities Exam Extremities exam: Negative for: calf tenderness, pedal edema, tenderness - Back Exam Back exam: absent: CVA tenderness (L), CVA tenderness (R) - Neurological Exam Additional comments: Awake and alert, only oriented to self, moving extremities spontaneously, tracking staff in room, PERRLA, EOMI - Psychiatric Exam Psychiatric exam: Normal Affect, Normal Mood - Skin Skin Exam: Dry, Intact, Normal Color, Warm Results - Vital Signs Recent Vital Signs: Last Vital Signs Temp 99.0 F 11/05/16 00:53 Pulse 69 11/05/16 05:00 Resp 20 11/05/16 05:00 BP 122/74 11/05/16 05:00 Pulse Ox 100 11/05/16 05:00 - Labs Result Diagrams: 11/04/16 19:45 11/05/16 00:15 Labs: Laboratory Results - last 24 hr 11/05/16 03:25 Lactate Dehydrogenase 549 Total Creatine Kinase 443 H CK-MB (CK-2) 27.9 H CK-MB (CK-2) % 6.2 H Troponin I 5.28 H* D Assessment & Plan - Assessment and Plan (Free Text) Assessment: This is an 85 yo AA M with PMH of ESRD on HD (//), prior HCAP, CAD s/p stenting, GI bleeds, CVA, Gastric cancer, Mitral valve prolapse, DM, and dementia who presents with complaint of nausea and emesis, and was found to have an elevated trop suggestive of NSTEMI. He is being admitted to the ICU for increasing trop (1.6 --> 5.26). Plan: Neuro: -Awake and alert, but only oriented to self, following some commands -maintain normothermia -moving all extremities at baseline -continue home Donepezil Pulm: -Satting well on RA -maintain SaO2 > 92% -conservative O2 management, no supplemental O2 indicated at this time -Nebs q2 PRN and q6 [facility] Cardio: -NSTEMI with new ST depressions in V3, V4, V5; trop 1.6 --> 5.28 -started on heparin drip, plavix -continue home ASA, lipitor, losartan, nebivolol -Cardio (Dr. Dewey) consulted, appreciate all recs -repeat EKG in AM -Trops q4 as per Primary GI: -NPO -Protonix IV q12 for ppx -As per Primary, high risk for GI bleeds, has hx of GI bleeds, so type and crossed with 2 units on hold in case pt develops acute bleed -GI (Dr. Hitchcock) consulted, appreciate all recs Renal: -ESRD on HD // -Makes urine as per charting, but incontinent -Monitor I's and O's -Monitor and replete electrolytes as needed Heme: -Hgb 13.7, but reported to be high risk for GI bleed -Type and cross with 2 units held as per primary, avoid transfusing unless Hgb < 10 or actively bleeding with hypotension/end-organ damage -Anticoagulated with Heparin drip, continue ASA, continue Plavix as per forest fire management officer ID: -Leukocytosis of 12.8, Febrile overnight (Tmax 100.6) -maintain normothermia -Blood cultures ordered, pending -Covering with Doxy and Rocephin Dispo: ICU pending Cardio and GI eval, IV abx and heparin drip for anticoagulation FEN: NPO, No IVF due to ESRD Access: Peripheral IV, L forearm AV fistula Consults: GI, Cardio Ppx: Protonix for GI, Heparin drip covers for DVT Code status: unknown, so full code Patient seen, reviewed, and discussed with attending, Dr. Jain. <Garret Jain P - Last Filed: 11/05/16 21:14> Meds - Medications Medications: Current Medications Albuterol/Ipratropium (Duoneb 3 Mg/0.5 Mg (3 Ml) Ud) 3 ml IH [id number] [facility] Last Admin: 11/05/16 20:25 Dose: Not Given Albuterol/Ipratropium (Duoneb 3 Mg/0.5 Mg (3 Ml) Ud) 3 ml IH Q2H PRN PRN Reason: Shortness of Breath Aspirin (Ecotrin) 81 mg PO DAILY [facility] Last Admin: 11/05/16 18:35 Dose: Not Given Atorvastatin Calcium (Lipitor) 40 mg PO DIN [facility] Last Admin: 11/05/16 18:37 Dose: Not Given Clopidogrel Bisulfate (Plavix) 75 mg PO DAILY [facility] Donepezil HCl (Aricept) 10 mg PO HS [facility] Ergocalciferol (Drisdol 50,000 Intl Units Cap) 1 cap PO SAT [facility] Folic Acid (Folic Acid) 1 mg PO DAILY [facility] Last Admin: 11/05/16 18:36 Dose: Not Given Heparin Sodium/Dextrose (Heparin 25,000 Units/250ml In D5w) 25,000 units in 250 mls @ 8.11 mls/hr IV .Q24H [facility]; 12 UNITS/KG/HR PRN Reason: Protocol Last Admin: 11/05/16 01:38 Dose: 8.11 mls/hr Insulin Human Lispro (Humalog Low) 0 units SC ACHS [facility] PRN Reason: Protocol Last Admin: 11/05/16 19:34 Dose: Not Given Isosorbide Mononitrate (Imdur) 60 mg PO QAM [facility] Last Admin: 11/05/16 18:37 Dose: Not Given Latanoprost (Xalatan Opht) 0 ml OU HS [facility] Losartan Potassium (Cozaar) 100 mg PO DAILY [facility] Last Admin: 11/05/16 18:35 Dose: Not Given Metoclopramide HCl (Reglan) 5 mg IVP Q6H [facility] Last Admin: 11/05/16 18:39 Dose: 5 mg Linaclotide [Linzess (] 145 Mcg (Home Med)) 145 mcg PO DAILY [facility] Last Admin: 11/05/16 18:37 Dose: Not Given Nebivolol [Bystolic] (5 Mg (Home Med)) 5 mg PO DAILY [facility] Last Admin: 11/05/16 18:37 Dose: Not Given Pantoprazole Sodium (Protonix Inj) 40 mg IVP Q12 [facility] Last Admin: 11/05/16 18:39 Dose: 40 mg Polyethylene Glycol (Miralax) 17 gm PO BID [facility] Sevelamer HCl (Renagel) 800 mg PO TID [facility] Last Admin: 11/05/16 18:39 Dose: Not Given Sodium Phosphate (Fleet Enema) 135 ml RC BID PRN PRN Reason: Constipation Tamsulosin HCl (Flomax) 0.4 mg PO DAILY [facility] Last Admin: 11/05/16 18:36 Dose: Not Given Vitamin B Complex/Vit C/Folic Acid (Nephro-Jaylin) 1 tab PO DAILY [facility] Last Admin: 11/05/16 18:37 Dose: Not Given Ziprasidone (Geodon Inj) 5 mg IM Q6H PRN; Protocol PRN Reason: Agitation Results - Vital Signs Recent Vital Signs: Last Vital Signs Temp 99 F 11/05/16 06:06 Pulse 77 11/05/16 19:00 Resp 25 H 11/05/16 19:00 BP 170/93 H 11/05/16 18:45 Pulse Ox 99 11/05/16 07:50 - Labs Result Diagrams: 11/05/16 14:00 11/05/16 14:00 Labs: Laboratory Results - last 24 hr 11/05/16 11/05/16 11/05/16 03:25 14:00 14:00 WBC 11.8 H RBC 3.62 Hgb 10.4 L D Hct 31.9 L MCV 88.1 D MCH 28.7 MCHC 32.6 RDW 16.2 H Plt Count 120 MPV 11.4 H Gran % 79.1 H Lymph % (Auto) 13.7 L Rosebud % (Auto) 7.0 H Eos % (Auto) 0.0 L Baso % (Auto) 0.2 Gran # 9.32 H Lymph # 1.6 Rosebud # 0.8 H Eos # 0.0 Baso # 0.02 APTT Sodium 139 Potassium 4.2 Chloride 100 Carbon Dioxide 24 Anion Gap 19 BUN 35 H Creatinine 6.6 H Est GFR ( Amer) 10 Est GFR (Non-Af Amer) 8 Random Glucose 154 H Hemoglobin A1c Calcium 8.6 Phosphorus 2.8 Magnesium 1.9 Total Bilirubin 0.6 AST 92 H ALT 28 Alkaline Phosphatase 67 Lactate Dehydrogenase 549 Total Creatine Kinase 443 H CK-MB (CK-2) 27.9 H CK-MB (CK-2) % 6.2 H Troponin I 5.28 H* D 27.60 H* D Total Protein 6.3 Albumin 3.5 Globulin 2.8 Albumin/Globulin Ratio 1.3 Triglycerides 76 Cholesterol 102 L LDL Cholesterol Direct 45 HDL Cholesterol 44 25-OH Vitamin D Total Free T4 Thyroxine (T4) TSH 3rd Generation Blood Type Antibody Screen Crossmatch BBK History Checked 11/05/16 11/05/16 11/05/16 14:00 14:00 14:23 WBC RBC Hgb Hct MCV MCH MCHC RDW Plt Count MPV Gran % Lymph % (Auto) Rosebud % (Auto) Eos % (Auto) Baso % (Auto) Gran # Lymph # Rosebud # Eos # Baso # APTT 59.4 H Sodium Potassium Chloride Carbon Dioxide Anion Gap BUN Creatinine Est GFR ( Amer) Est GFR (Non-Af Amer) Random Glucose Hemoglobin A1c Calcium Phosphorus Magnesium Total Bilirubin AST ALT Alkaline Phosphatase Lactate Dehydrogenase Total Creatine Kinase CK-MB (CK-2) CK-MB (CK-2) % Troponin I Total Protein Albumin Globulin Albumin/Globulin Ratio Triglycerides Cholesterol LDL Cholesterol Direct HDL Cholesterol 25-OH Vitamin D Total 78.9 Free T4 2.39 H Thyroxine (T4) 10.3 TSH 3rd Generation 1.97 Blood Type Antibody Screen Crossmatch BBK History Checked 11/05/16 11/05/16 11/05/16 14:24 14:25 20:24 WBC RBC Hgb Hct MCV MCH MCHC RDW Plt Count MPV Gran % Lymph % (Auto) Rosebud % (Auto) Eos % (Auto) Baso % (Auto) Gran # Lymph # Rosebud # Eos # Baso # APTT 38.6 H Sodium Potassium Chloride Carbon Dioxide Anion Gap BUN Creatinine Est GFR ( Amer) Est GFR (Non-Af Amer) Random Glucose Hemoglobin A1c 5.4 Calcium Phosphorus Magnesium Total Bilirubin AST ALT Alkaline Phosphatase Lactate Dehydrogenase Total Creatine Kinase CK-MB (CK-2) CK-MB (CK-2) % Troponin I Total Protein Albumin Globulin Albumin/Globulin Ratio Triglycerides Cholesterol LDL Cholesterol Direct HDL Cholesterol 25-OH Vitamin D Total Free T4 Thyroxine (T4) TSH 3rd Generation Blood Type B POSITIVE Antibody Screen Negative Crossmatch See Detail BBK History Checked Patient has bt Attending/Attestation - Attestation I have personally seen and examined this patient.: Yes I have fully participated in the care of the patient.: Yes I have reviewed all pertinent clinical information: Yes Notes (Text): 85 yo AA M with PMH of ESRD on HD (M/W/F), prior HCAP, CAD s/p stenting, GI bleeds, CVA, Gastric cancer, Mitral valve prolapse, DM, and dementia who presents with complaint of nausea and emesis, and was found to have an elevated trop suggestive of NSTEMI. He is being admitted to the ICU for increasing trop (1.6 --> 5.26). Patient has dementia, not in distress, denies any complains. Plan ASA, plavix loading, then daily dose, heparin drip, continue bystolic, cardiology consult, nephrology consult, monitor gi bleeding due to history and staring of antiplatelet and anticoagulation. See orders for detail.
--- NOTE | 2016-11-05 07:02 | CP.PCM.PN ---
Subjective - Date & Time of Evaluation Date of Evaluation: 11/05/16 Time of Evaluation: 02:00 - Subjective Subjective: 85 yo AA M with PMH of ESRD on HD (M/W/F), prior HCAP, CAD s/p stenting, GI bleeds, CVA, Gastric cancer, Mitral valve prolapse, DM, and dementia who presents with complaint of nausea and emesis, and was found to have an elevated trop suggestive of NSTEMI. He is being admitted to the ICU for increasing trop (1.6 --> 5.26). Patient has dementia, not in distress, denies any complains. Plan ASA, plavix loading, then daily dose, heparin drip, continue bystolic, cardiology consult, nephrology consult, monitor gi bleeding due to history and staring of antiplatelet and anticoagulation. See orders for detail. Objective - Vital Signs/Intake and Output Vital Signs (last 24 hours): Temp Pulse Resp BP Pulse Ox 99.0 F 66 13 135/82 100 11/05/16 00:53 11/05/16 06:30 11/05/16 06:30 11/05/16 06:00 11/05/16 06:30 - Medications Medications: Current Medications Albuterol/Ipratropium (Duoneb 3 Mg/0.5 Mg (3 Ml) Ud) 3 ml IH [id number] [facility] Albuterol/Ipratropium (Duoneb 3 Mg/0.5 Mg (3 Ml) Ud) 3 ml IH Q2H PRN PRN Reason: Shortness of Breath Aspirin (Ecotrin) 81 mg PO DAILY [facility] Atorvastatin Calcium (Lipitor) 40 mg PO DIN [facility] Clopidogrel Bisulfate (Plavix) 75 mg PO DAILY [facility] Donepezil HCl (Aricept) 10 mg PO HS [facility] Ergocalciferol (Drisdol 50,000 Intl Units Cap) 1 cap PO SAT [facility] Folic Acid (Folic Acid) 1 mg PO DAILY [facility] Heparin Sodium/Dextrose (Heparin 25,000 Units/250ml In D5w) 25,000 units in 250 mls @ 8.11 mls/hr IV .Q24H [facility]; 12 UNITS/KG/HR PRN Reason: Protocol Last Admin: 11/05/16 01:38 Dose: 8.11 mls/hr Doxycycline Hyclate 100 mg/ (Sodium Chloride) 100 mls @ 100 mls/hr IVPB Q12 [facility] PRN Reason: Protocol Ceftriaxone Sodium (Rocephin 1 Gram Ivpb) 1 gm in 100 mls @ 100 mls/hr IVPB DAILY [facility] PRN Reason: Protocol Insulin Human Lispro (Humalog Low) 0 units SC ACHS [facility] PRN Reason: Protocol Isosorbide Mononitrate (Imdur) 60 mg PO QAM [facility] Latanoprost (Xalatan Opht) 0 ml OU HS [facility] Losartan Potassium (Cozaar) 100 mg PO DAILY [facility] Metoclopramide HCl (Reglan) 5 mg PO QID [facility] Linaclotide [Linzess (] 145 Mcg (Home Med)) 145 mcg PO DAILY [facility] Nebivolol [Bystolic] (5 Mg (Home Med)) 5 mg PO DAILY [facility] Pantoprazole Sodium (Protonix Inj) 40 mg IVP Q12 [facility] Last Admin: 11/05/16 06:11 Dose: 40 mg Sevelamer HCl (Renagel) 800 mg PO TID [facility] Tamsulosin HCl (Flomax) 0.4 mg PO DAILY [facility] Vitamin B Complex/Vit C/Folic Acid (Nephro-Jaylin) 1 tab PO DAILY [facility] - Labs Labs: PT 11.2 Seconds (9.9-11.8) 11/04/16 19:45 INR 1.04 (0.93-1.08) 11/04/16 19:45 APTT 22.5 Seconds (23.7-30.8) L 11/04/16 19:45
[2016-11-05] MEDS: Insulin Lispro (humaLOG) LOW Coverage SC SCH ×4 (07:30→22:51)
[2016-11-05] MEDS: Albuterol-Ipratrop 3 mg / 0.5 (3 ml) UD IH SCH ×3 (07:53→20:25)
--- NOTE | 2016-11-05 09:24 | CP.PCM.HP ---
History of Present Illness - History of Present Illness History of Present Illness: IM H&P for Dr. Nazario service CC: nausea, emesis, lethargy HPI: This is an 85 yo AA M with PMH of ESRD on HD (//), prior HCAP, CAD s/p stenting, GI bleeds, CVA, Gastric cancer, Mitral valve prolapse, DM, and dementia who presents with complaint of nausea and emesis, and was found to have an elevated trop suggestive of NSTEMI. HPI and ROS are limited as patient is demented and is entirely unreliable as a historian. Family not at bedside at time of exam. As per ED charting, family reported increased lethargy concurrent with nausea and emesis. Patient denies all symptoms, does not understand why he is in the hospital, and has no insight into his condition; he is oriented only to self. Reported to still make urine despite ESRD on HD. In the ED, initial trop was 1.6, with EKG notable for new ST-depressions in V3, V4 , and V5 not present in prior EKG September 05. Repeat trop 5.28, so patient was started on Plavix in addition to a heparin drip (started after first trop), and was accepted to the ICU. PMH: as above PSH: AV fistula in L forearm FHx: none listed in prior charting SHx: as per charting, former smoker, no reported EtOH or Illicits PMD: Dr. Nazario Present on Admission - Present on Admission Any Indicators Present on Admission: No History of DVT/PE: No History of Uncontrolled Diabetes: No Urinary Catheter: No Review of Systems - Review of Systems Systems not reviewed;Unavailable: Dementia Past Patient History - Infectious Disease Hx of Infectious Diseases: None - Tetanus Immunizations Tetanus Immunization: Unknown - Past Medical History & Family History Past Medical History?: Yes - Past Social History Smoking Status: Former Smoker - CARDIAC Hx Cardiac Disorders: Yes Hx Hypertension: Yes - PULMONARY Hx Respiratory Disorders: Yes Hx Pneumonia: Yes - NEUROLOGICAL Hx Neurological Disorder: Yes HX Cerebrovascular Accident: Yes - HEENT Hx HEENT Problems: Yes (WEARS RX GLASSES) Hx Epistaxis: Yes - RENAL Hx Chronic Kidney Disease: Yes Hx Dialysis: Yes ( Schedule) Hx Renal Failure: Yes (ESRD) - ENDOCRINE/METABOLIC Hx Endocrine Disorders: Yes Hx Diabetes Mellitus Type 2: Yes - HEMATOLOGICAL/ONCOLOGICAL Hx Blood Disorders: Yes Hx Cancer: Yes (Gastric) - INTEGUMENTARY Hx Dermatological Problems: No - MUSCULOSKELETAL/RHEUMATOLOGICAL Hx Musculoskeletal Disorders: Yes Hx Falls: Yes (past) - GASTROINTESTINAL Hx Gastrointestinal Disorders: Yes (diverticulitis/reflux) - GENITOURINARY/GYNECOLOGICAL Hx Genitourinary Disorders: Yes (pt voids) Hx Reproductive Disorders: Yes - PSYCHIATRIC Hx Psychophysiologic Disorder: No Hx Emotional Abuse: No Hx Substance Use: No - SURGICAL HISTORY Other/Comment: AV shunt placement. - ANESTHESIA Hx Anesthesia Reactions: No Hx Malignant Hyperthermia: No Meds Allergies/Adverse Reactions: Allergies Allergy/AdvReac Type Severity Reaction Status Date / Time No Known Allergies Allergy Verified 11/04/16 19:37 Physical Exam - Additional Findings Additional findings: - Constitutional Appears: Non-toxic, No Acute Distress, Chronically Ill - Head Exam Head Exam: ATRAUMATIC, NORMAL INSPECTION, NORMOCEPHALIC - Eye Exam Eye Exam: EOMI, Normal appearance, PERRL. absent: Conjunctival injection, Scleral icterus Pupil Exam: absent: Fixed, Irregular, Unequal - ENT Exam ENT Exam: Mucous Membranes Moist - Neck Exam Neck exam: Negative for: Lymphadenopathy, Thyromegaly - Respiratory Exam Respiratory Exam: Decreased Breath Sounds, Clear to Auscultation Bilateral, NORMAL BREATHING PATTERN. absent: Accessory Muscle Use, Chest Wall Tenderness, Rales, Rhonchi, Wheezes - Cardiovascular Exam Cardiovascular Exam: REGULAR RHYTHM, RRR, +S1, +S2. absent: Bradycardia, Tachycardia, Irregular Rhythm, JVD, +S4 - GI/Abdominal Exam GI & Abdominal Exam: Normal Bowel Sounds, Soft. absent: Diminished Bowel Sounds , Distended, Firm, Hyperactive Bowel Sounds, Hypoactive Bowel Sounds, Rigid, Tenderness - Extremities Exam Extremities exam: Negative for: calf tenderness, pedal edema, tenderness - Back Exam Back exam: absent: CVA tenderness (L), CVA tenderness (R) - Neurological Exam Additional comments: Awake and alert, only oriented to self, moving extremities spontaneously, tracking staff in room, PERRLA, EOMI - Psychiatric Exam Psychiatric exam: Normal Affect, Normal Mood - Skin Skin Exam: Dry, Intact, Normal Color, Warm Results - Vital Signs Recent Vital Signs: Last Vital Signs Temp 99 F 11/05/16 06:06 Pulse 68 11/05/16 07:50 Resp 47 H 11/05/16 07:50 BP 123/89 08/11/17 07:00 Pulse Ox 99 11/05/16 07:50 - Labs Result Diagrams: 11/04/16 19:45 11/05/16 00:15 Labs: Laboratory Results - last 24 hr 11/05/16 03:25 Lactate Dehydrogenase 549 Total Creatine Kinase 443 H CK-MB (CK-2) 27.9 H CK-MB (CK-2) % 6.2 H Troponin I 5.28 H* D Assessment & Plan - Assessment and Plan (Free Text) Assessment: This is an 85 yo AA M with PMH of ESRD on HD (//), prior HCAP, CAD s/p stenting, GI bleeds, CVA, Gastric cancer, Mitral valve prolapse, DM, and dementia who presents with complaint of nausea and emesis, and was found to have an elevated trop suggestive of NSTEMI. He is being admitted to the ICU for increasing trop (1.6 --> 5.26). Plan: Neuro: -Awake and alert, but only oriented to self, following some commands -maintain normothermia -moving all extremities at baseline -continue home Donepezil Pulm: -Satting well on RA -maintain SaO2 > 92% -conservative O2 management, no supplemental O2 indicated at this time -Nebs q2 PRN and q6 FRANCISCO JAVIER Cardio: -NSTEMI with new ST depressions in V3, V4, V5; trop 1.6 --> 5.28 -started on heparin drip, plavix -continue home ASA, lipitor, losartan, nebivolol -Cardio (Dr. Dewey) consulted, appreciate all recs -repeat EKG in AM -Trops q4 as per Primary GI: -NPO -Protonix IV q12 for ppx -As per Primary, high risk for GI bleeds, has hx of GI bleeds, so type and crossed with 2 units on hold in case pt develops acute bleed -GI (Dr. Hitchcock) consulted, appreciate all recs Renal: -ESRD on HD /W/ -Makes urine as per charting, but incontinent -Monitor I's and O's -Monitor and replete electrolytes as needed Heme: -Hgb 13.7, but reported to be high risk for GI bleed -Type and cross with 2 units held as per primary, avoid transfusing unless Hgb < 10 or actively bleeding with hypotension/end-organ damage -Anticoagulated with Heparin drip, continue ASA, continue Plavix as per artificial insemination technician ID: -Leukocytosis of 12.8, Febrile overnight (Tmax 100.6) -maintain normothermia -Blood cultures ordered, pending -Covering with Doxy and Rocephin Dispo: ICU pending Cardio and GI eval, IV abx and heparin drip for anticoagulation FEN: NPO, No IVF due to ESRD Access: Peripheral IV, L forearm AV fistula Consults: GI, Cardio Ppx: Protonix for GI, Heparin drip covers for DVT Code status: unknown, so full code Patient reviewed and discussed with attending, Dr. Nazario. Decision To Admit - Pt Status Changed To: Hospital Disposition Of: Inpatient Admission - Admit Certification Admit to Inpatient:: After my assessment, the patient will require hospitalization for at least two midnights. This is because of the severity of symptoms shown, intensity of services needed, and/or the medical risk in this patient being treated as an outpatient. - . Bed Request Type: Critical Care
--- NOTE | 2016-11-05 09:27 | RAD ---
HISTORY: cough COMPARISON: 09/05/2016 FINDINGS: LUNGS: No active pulmonary disease. PLEURA: No significant pleural effusion identified, no pneumothorax apparent. CARDIOVASCULAR: Normal. OSSEOUS STRUCTURES: No significant abnormalities. VISUALIZED UPPER ABDOMEN: Normal. OTHER FINDINGS: None. IMPRESSION: No active disease.
[2016-11-05] MEDS ORDERED: cefTRIAXone 1 gm 1 GM/100 ML BAG IVPB SCH (10:00)
[2016-11-05] MEDS ORDERED: POLYETHYLENE GLYCOL 3350 17 GM/Dose PACKET PO SCH (10:00)
--- NOTE | 2016-11-05 11:53 | CT ---
PROCEDURE: CT HEAD WITHOUT CONTRAST. HISTORY: AMS COMPARISON: None available. TECHNIQUE: Axial computed tomography images were obtained through the head/brain without intravenous contrast. Radiation dose: Total exam DLP = 774 mGy-cm. This CT exam was performed using one or more of the following dose reduction techniques: Automated exposure control, adjustment of the mA and/or kV according to patient size, and/or use of iterative reconstruction technique. FINDINGS: HEMORRHAGE: No intracranial hemorrhage. BRAIN: No mass effect or edema. Chronic microvascular ischemic changes. VENTRICLES: Unremarkable. No hydrocephalus. CALVARIUM: Unremarkable. PARANASAL SINUSES: Unremarkable as visualized. No significant inflammatory changes. MASTOID AIR CELLS: Unremarkable as visualized. No inflammatory changes. OTHER FINDINGS: None. IMPRESSION: No intracranial hemorrhage
--- NOTE | 2016-11-05 13:43 | CP.PCM.PN ---
<Shayy Shelton - Last Filed: 11/05/16 14:51> Subjective - Date & Time of Evaluation Date of Evaluation: 11/05/16 Time of Evaluation: 11:00 - Subjective Subjective: ICU Progress Note Pt was seen and examined at bedside. Has baseline dementia however as per PMD is more disorientated than usual. No acute events overnight, as per nursing staff. Pt denies any acute complaints this morning. Pt denied fever,chills, sob , chest pains, abdominal pains, n/v/d/c or urinary symptoms. Objective - Vital Signs/Intake and Output Vital Signs (last 24 hours): Temp Pulse Resp BP Pulse Ox 99 F 68 47 H 123/89 99 11/05/16 06:06 11/05/16 07:50 11/05/16 07:50 11/05/16 07:00 11/05/16 07:50 - Medications Medications: Current Medications Albuterol/Ipratropium (Duoneb 3 Mg/0.5 Mg (3 Ml) Ud) 3 ml IH [id number] [facility]AV[facility] Last Admin: 11/05/16 07:53 Dose: 3 ml Albuterol/Ipratropium (Duoneb 3 Mg/0.5 Mg (3 Ml) Ud) 3 ml IH Q2H PRN PRN Reason: Shortness of Breath Aspirin (Ecotrin) 81 mg PO DAILY [facility] Atorvastatin Calcium (Lipitor) 40 mg PO DIN [facility] Clopidogrel Bisulfate (Plavix) 75 mg PO DAILY [facility] Donepezil HCl (Aricept) 10 mg PO HS [facility] Ergocalciferol (Drisdol 50,000 Intl Units Cap) 1 cap PO SAT [facility] Folic Acid (Folic Acid) 1 mg PO DAILY [facility] Heparin Sodium/Dextrose (Heparin 25,000 Units/250ml In D5w) 25,000 units in 250 mls @ 8.11 mls/hr IV .Q24H FRANCISCO JAVIER; 12 UNITS/KG/HR PRN Reason: Protocol Last Admin: 11/05/16 01:38 Dose: 8.11 mls/hr Doxycycline Hyclate 100 mg/ (Sodium Chloride) 100 mls @ 100 mls/hr IVPB Q12 [facility] PRN Reason: Protocol Last Admin: 11/05/16 10:53 Dose: 100 mls/hr Ceftriaxone Sodium (Rocephin 1 Gram Ivpb) 1 gm in 100 mls @ 100 mls/hr IVPB DAILY [facility] PRN Reason: Protocol Last Admin: 11/05/16 10:52 Dose: 100 mls/hr Insulin Human Lispro (Humalog Low) 0 units SC ACHS [facility] PRN Reason: Protocol Isosorbide Mononitrate (Imdur) 60 mg PO QAM [facility] Latanoprost (Xalatan Opht) 0 ml OU HS [facility] Losartan Potassium (Cozaar) 100 mg PO DAILY [facility] Metoclopramide HCl (Reglan) 5 mg IVP Q6H [facility] Linaclotide [Linzess (] 145 Mcg (Home Med)) 145 mcg PO DAILY [facility] Nebivolol [Bystolic] (5 Mg (Home Med)) 5 mg PO DAILY [facility] Pantoprazole Sodium (Protonix Inj) 40 mg IVP Q12 [facility] Last Admin: 11/05/16 06:11 Dose: 40 mg Polyethylene Glycol (Miralax) 17 gm PO BID [facility] Sevelamer HCl (Renagel) 800 mg PO TID [facility] Sodium Phosphate (Fleet Enema) 135 ml RC BID PRN PRN Reason: Constipation Tamsulosin HCl (Flomax) 0.4 mg PO DAILY [facility] Vitamin B Complex/Vit C/Folic Acid (Nephro-Jaylin) 1 tab PO DAILY [facility] Ziprasidone (Geodon Inj) 5 mg IM Q6H PRN; Protocol PRN Reason: Agitation - Labs Labs: PT 11.2 Seconds (9.9-11.8) 11/04/16 19:45 INR 1.04 (0.93-1.08) 11/04/16 19:45 APTT 22.5 Seconds (23.7-30.8) L 11/04/16 19:45 - Constitutional Appears: No Acute Distress, Chronically Ill - Head Exam Head Exam: ATRAUMATIC, NORMAL INSPECTION, NORMOCEPHALIC - Eye Exam Eye Exam: EOMI, Normal appearance, PERRL Pupil Exam: NORMAL ACCOMODATION, PERRL - ENT Exam ENT Exam: Mucous Membranes Moist, Normal Exam - Respiratory Exam Respiratory Exam: Clear to Ausculation Bilateral, NORMAL BREATHING PATTERN - Cardiovascular Exam Cardiovascular Exam: REGULAR RHYTHM, +S1, +S2. absent: Murmur - GI/Abdominal Exam GI & Abdominal Exam: Soft, Normal Bowel Sounds. absent: Tenderness - Neurological Exam Neurological Exam: Alert, Awake, CN II-XII Intact, Normal Gait. absent: Oriented x3 - Psychiatric Exam Psychiatric exam: Normal Affect, Normal Mood - Skin Skin Exam: Dry, Intact, Normal Color, Warm Assessment and Plan - Assessment and Plan (Free Text) Assessment: 85 M with PMHx of ESRD on HD (MWF), CAD s/p stenting, Hx GI bleeds, CVA, Gastric cancer, Mitral valve prolapse, DM, and dementia admitted to the ICU for AMS with concerns of airway protection and HD Stability and medical management for NSTEMI in the setting of ESRD on HD and hx of massive GI bleed. Neuro: - Awake, demented at baseline, however less orientated as per PMD - maintain normothermia - moving all extremities at baseline - continue home Donepezil - CTH no acute intracranial pathology - Reassess after dialysis Pulm: - Satting well on RA - maintain SaO2 > 92% - conservative O2 management, no supplemental O2 indicated at this time - Nebs q2 PRN and q6 [facility] JAV[facility] Cardio: - NSTEMI; uptrending trops - started on heparin drip, plavix - continue home ASA, lipitor, losartan, nebivolol - Cardio (Dr. Dewey) consulted, will continue medical management - fu trops for peak GI: -NPO pending speech and swallow eval, AMS -Protonix IV q12 for ppx -As per Primary, high risk for GI bleeds, has hx of GI bleeds, so type and crossed with 2 units on hold in case pt develops acute bleed -GI (Dr. Hitchcock) consulted, hx massive gi bleed, high risk will continue with recs - fleet enema Renal: -ESRD on HD M// - Receiving HD today -Monitor I's and O's -Monitor and replete electrolytes as needed - ammonia level Heme: -Hgb stable high risk for GI bleed -Type and cross with 2 units held as per primary, avoid transfusing unless Hgb < 10 or actively bleeding with hypotension/end-organ damage -Heparin drip, ASA, Plavix ID: - Luekocytosis downtrending - maintain normothermia - Blood cultures pending - Torsten and Ivon Seen Reviewed and Discussed with Attending Patient seen, reviewed, and discussed with attending <Barbara AHN,Meghann Abraham - Last Filed: 11/05/16 15:29> Objective - Vital Signs/Intake and Output Vital Signs (last 24 hours): Temp Pulse Resp BP Pulse Ox 99 F 68 47 H 123/89 99 11/05/16 06:06 11/05/16 07:50 11/05/16 07:50 11/05/16 07:00 11/05/16 07:50 - Medications Medications: Current Medications Albuterol/Ipratropium (Duoneb 3 Mg/0.5 Mg (3 Ml) Ud) 3 ml IH [id number] [facility] JAVIER Last Admin: 11/05/16 13:30 Dose: 3 ml Albuterol/Ipratropium (Duoneb 3 Mg/0.5 Mg (3 Ml) Ud) 3 ml IH Q2H PRN PRN Reason: Shortness of Breath Aspirin (Ecotrin) 81 mg PO DAILY [facility] JAV[facility] Atorvastatin Calcium (Lipitor) 40 mg PO DIN [facility] J[facility] Clopidogrel Bisulfate (Plavix) 75 mg PO DAILY [facility] Donepezil HCl (Aricept) 10 mg PO HS [facility] JAV[facility] Ergocalciferol (Drisdol 50,000 Intl Units Cap) 1 cap PO SAT [facility] Folic Acid (Folic Acid) 1 mg PO DAILY [facility] Heparin Sodium/Dextrose (Heparin 25,000 Units/250ml In D5w) 25,000 units in 250 mls @ 8.11 mls/hr IV .Q24H FRANCIS[facility] JAVIER; 12 UNITS/KG/HR PRN Reason: Protocol Last Admin: 11/05/16 01:38 Dose: 8.11 mls/hr Doxycycline Hyclate 100 mg/ (Sodium Chloride) 100 mls @ 100 mls/hr IVPB Q12 [facility] JAVIER PRN Reason: Protocol Last Admin: 11/05/16 10:53 Dose: 100 mls/hr Ceftriaxone Sodium (Rocephin 1 Gram Ivpb) 1 gm in 100 mls @ 100 mls/hr IVPB DAILY [facility] J[facility] PRN Reason: Protocol Last Admin: 11/05/16 10:52 Dose: 100 mls/hr Insulin Human Lispro (Humalog Low) 0 units SC ACHS [facility] PRN Reason: Protocol Isosorbide Mononitrate (Imdur) 60 mg PO QAM [facility] Latanoprost (Xalatan Opht) 0 ml OU HS [facility] Losartan Potassium (Cozaar) 100 mg PO DAILY [facility] Metoclopramide HCl (Reglan) 5 mg IVP Q6H [facility] Linaclotide [Linzess (] 145 Mcg (Home Med)) 145 mcg PO DAILY [facility] JAV[facility] Nebivolol [Bystolic] (5 Mg (Home Med)) 5 mg PO DAILY [facility] JAV[facility] Pantoprazole Sodium (Protonix Inj) 40 mg IVP Q12 [facility] JAVIER Last Admin: 11/05/16 06:11 Dose: 40 mg Polyethylene Glycol (Miralax) 17 gm PO BID [facility] JAV[facility] Sevelamer HCl (Renagel) 800 mg PO TID [facility] Sodium Phosphate (Fleet Enema) 135 ml RC BID PRN PRN Reason: Constipation Tamsulosin HCl (Flomax) 0.4 mg PO DAILY [facility] Vitamin B Complex/Vit C/Folic Acid (Nephro-Jaylin) 1 tab PO DAILY [facility] Ziprasidone (Geodon Inj) 5 mg IM Q6H PRN; Protocol PRN Reason: Agitation - Labs Labs: 11/05/16 14:00 PT 11.2 Seconds (9.9-11.8) 11/04/16 19:45 INR 1.04 (0.93-1.08) 11/04/16 19:45 APTT 59.4 Seconds (23.7-30.8) H 11/05/16 14:23 Attending/Attestation - Attestation I have personally seen and examined this patient.: Yes I have fully participated in the care of the patient.: Yes I have reviewed all pertinent clinical information, including history, physical exam and plan: Yes Notes (Text): 11/05/16 15:25 85 y/o M w/ NSTEMI w/ High DEIDRE score. ON heparin drip, asprin, plavix, B marco awaiting possible Cardiac Cath . No Chest pain or new symptoms currently. ESRD on HD. Dementia w/ family at bedside aware of the situation. cc time 45 min
[2016-11-05 14:21] LABS: BASO # 0.02 K/mm3 (0.0-2.0); BASO % 0.2 % (0.0-3.0); GRAN # 9.32 (1.4-6.5); GRAN % 79.1 % (50.0-68.0); HEMOGLOBIN 10.4 g/dL (14.0-18.0); LYMPH # 1.6 (1.2-3.4); LYMPH % 13.7 % (22.0-35.0); MEAN CELL VOLUME 88.1 fl (80.0-105.0); MEAN CORPUSCULAR HEMOGLOBIN 28.7 pg (25.0-35.0); MEAN CORPUSCULAR HGB CONC 32.6 g/dl (31.0-37.0); MEAN PLATELET VOLUME 11.4 fl (7.0-11.0); MONO # 0.8 (0.1-0.6); PLATELET COUNT 120 10^3/uL (120.0-450.0); RBC 3.62 10^6/uL (3.5-6.1); RED CELL DISTRIBUTION WIDTH 16.2 % (11.5-14.5); WHITE BLOOD COUNT 11.8 10^3/ul (4.5-11.0)
--- NOTE | 2016-11-05 15:47 | CON ---
DATE: 11/05/2016 HISTORY OF PRESENT ILLNESS: The patient is an 85-year-old male who presents with nausea and vomiting as well as the lethargy. PAST MEDICAL HISTORY: Includes documented end-stage renal disease treated with hemodialysis. He has longstanding dementia. In addition, the patient had previous coronary artery disease in the past. His cardiac risk factors include hypertension, hypercholesterolemia. SOCIAL HISTORY: Unavailable. REVIEW OF SYSTEMS: Unavailable. PHYSICAL EXAMINATION: GENERAL: The patient is confused in bed without dyspnea. VITAL SIGNS: Stable. Blood pressure is 123/89, heart rate is in the 60s, normal sinus rhythm. NECK: Negative JVD. LUNGS: Minimal rhonchi. HEART: Reveal S1, S2. EXTREMITIES: Without edema. EKG shows diffuse ST-T depressions. LABORATORY DATA: Laboratories revealed an elevated troponin. The BUN and creatinine are elevated. The hemoglobin is 13.7 with a white count of 12.8. IMPRESSION: 1. Non-ST segment elevation myocardial infarction. 2. Coronary artery disease. 3. End-stage renal disease. 4. Hypercholesterolemia. 5. Dementia. Given these findings, the patient's acute coronary syndrome should be treated medically. Given his multiple comorbidities, cardiac catheterization would be inappropriate. The patient has been placed on IV heparin, clopidogrel as well as aspirin. We cannot add a beta marco given the patient's bradycardia. Jamin Dewey MD
[2016-11-05 15:56] LABS: ALB/GLOB RATIO 1.3 (1.1-1.8); ALBUMIN 3.5 g/dL (3.0-4.8); CALCIUM 8.6 mg/dL (8.4-10.5); MAGNESIUM 1.9 mg/dL (1.7-2.2)
[2016-11-05 16:08] LABS: TROPONIN I 27.6 ng/mL
--- NOTE | 2016-11-05 17:02 | CP.PCM.CON ---
<Pritesh Estrada - Last Filed: 11/05/16 18:24> History of Present Illness - History of Present Illness History of Present Illness: Consult Note for Dr. Garcia Reason for Consult: AMS 85 y/o M with PMH of ESRD, CAD s/p stent, GI bleed, CVA, gastric cancer, mitral valve prolapse, DM, and vascular dementia. Pt has severe hx of dementia, much of hx provided from prior charting. According to prior charting, patient was increasingly lethargic and had multiple bouts of nausea and emesis, so family brought patient to the ED. In the ED, patient was found to have elevated troponins which were trending upward. Throughout this time, patient went through waxing and waning periods of orientation. Pt was then taken to the ICU. History and ROS was unable to be obtained from patient due to mental status. 0 PMH: ESRD, CAD s/p stent, GI bleed, CVA, gastric cancer, mitral valve prolapse, DM, and vascular dementia PSH: AV fistula in L forearm FHx: Noncontributory SHx: former smoker, no reported EtOH or Illicits Medications: Reviewed, as per ROSA Allergies: NKDA Review of Systems - Review of Systems Systems not reviewed;Unavailable: Altered Mental Status Past Patient History - Infectious Disease Hx of Infectious Diseases: None - Tetanus Immunizations Tetanus Immunization: Unknown - Past Medical History & Family History Past Medical History?: Yes - Past Social History Smoking Status: Former Smoker - CARDIAC Hx Cardiac Disorders: Yes - PULMONARY Hx Respiratory Disorders: Yes Hx Pneumonia: Yes - NEUROLOGICAL HX Cerebrovascular Accident: Yes - HEENT Hx HEENT Problems: Yes (WEARS RX GLASSES) Hx Epistaxis: Yes - RENAL Hx Renal Failure: Yes - ENDOCRINE/METABOLIC Hx Diabetes Mellitus Type 2: Yes - HEMATOLOGICAL/ONCOLOGICAL Hx Cancer: Yes (gastric) - INTEGUMENTARY Hx Dermatological Problems: No - MUSCULOSKELETAL/RHEUMATOLOGICAL Hx Musculoskeletal Disorders: Yes Hx Falls: Yes (past) - GASTROINTESTINAL Hx Gastrointestinal Disorders: Yes (diverticulitis/reflux) - GENITOURINARY/GYNECOLOGICAL Hx Genitourinary Disorders: Yes (pt voids) Hx Reproductive Disorders: Yes - PSYCHIATRIC Hx Psychophysiologic Disorder: No Hx Emotional Abuse: No Hx Substance Use: No - SURGICAL HISTORY Other/Comment: AV shunt placement. - ANESTHESIA Hx Anesthesia Reactions: No Hx Malignant Hyperthermia: No Meds Allergies/Adverse Reactions: Allergies Allergy/AdvReac Type Severity Reaction Status Date / Time No Known Allergies Allergy Verified 11/04/16 19:37 - Medications Medications: Current Medications Albuterol/Ipratropium (Duoneb 3 Mg/0.5 Mg (3 Ml) Ud) 3 ml IH [id number] [facility] Last Admin: 11/05/16 13:30 Dose: 3 ml Albuterol/Ipratropium (Duoneb 3 Mg/0.5 Mg (3 Ml) Ud) 3 ml IH Q2H PRN PRN Reason: Shortness of Breath Aspirin (Ecotrin) 81 mg PO DAILY [facility] Atorvastatin Calcium (Lipitor) 40 mg PO DIN [facility] Clopidogrel Bisulfate (Plavix) 75 mg PO DAILY [facility] Donepezil HCl (Aricept) 10 mg PO HS [facility] Ergocalciferol (Drisdol 50,000 Intl Units Cap) 1 cap PO SAT [facility] Folic Acid (Folic Acid) 1 mg PO DAILY [facility] Heparin Sodium/Dextrose (Heparin 25,000 Units/250ml In D5w) 25,000 units in 250 mls @ 8.11 mls/hr IV .Q24H [facility]AV[facility]; 12 UNITS/KG/HR PRN Reason: Protocol Last Admin: 11/05/16 01:38 Dose: 8.11 mls/hr Doxycycline Hyclate 100 mg/ (Sodium Chloride) 100 mls @ 100 mls/hr IVPB Q12 [facility] PRN Reason: Protocol Last Admin: 11/05/16 10:53 Dose: 100 mls/hr Ceftriaxone Sodium (Rocephin 1 Gram Ivpb) 1 gm in 100 mls @ 100 mls/hr IVPB DAILY [facility] PRN Reason: Protocol Last Admin: 11/05/16 10:52 Dose: 100 mls/hr Insulin Human Lispro (Humalog Low) 0 units SC ACHS [facility] PRN Reason: Protocol Isosorbide Mononitrate (Imdur) 60 mg PO QAM [facility] Latanoprost (Xalatan Opht) 0 ml OU HS [facility] Losartan Potassium (Cozaar) 100 mg PO DAILY [facility] Metoclopramide HCl (Reglan) 5 mg IVP Q6H [facility] Linaclotide [Linzess (] 145 Mcg (Home Med)) 145 mcg PO DAILY [facility] Nebivolol [Bystolic] (5 Mg (Home Med)) 5 mg PO DAILY [facility] Pantoprazole Sodium (Protonix Inj) 40 mg IVP Q12 [facility] Last Admin: 11/05/16 06:11 Dose: 40 mg Polyethylene Glycol (Miralax) 17 gm PO BID [facility] Sevelamer HCl (Renagel) 800 mg PO TID [facility] Sodium Phosphate (Fleet Enema) 135 ml RC BID PRN PRN Reason: Constipation Tamsulosin HCl (Flomax) 0.4 mg PO DAILY [facility] Vitamin B Complex/Vit C/Folic Acid (Nephro-Jaylin) 1 tab PO DAILY [facility] Ziprasidone (Geodon Inj) 5 mg IM Q6H PRN; Protocol PRN Reason: Agitation Physical Exam - Constitutional Appears: Non-toxic, No Acute Distress - Head Exam Head Exam: ATRAUMATIC, NORMAL INSPECTION, NORMOCEPHALIC - Eye Exam Eye Exam: Normal appearance - ENT Exam ENT Exam: Mucous Membranes Moist - Neck Exam Neck exam: Positive for: Normal Inspection. Negative for: Lymphadenopathy - Respiratory Exam Respiratory Exam: Clear to Auscultation Bilateral, NORMAL BREATHING PATTERN. absent: Rales, Rhonchi, Wheezes - Cardiovascular Exam Cardiovascular Exam: RRR, +S1, +S2 - GI/Abdominal Exam GI & Abdominal Exam: Normal Bowel Sounds, Soft. absent: Tenderness - Extremities Exam Extremities exam: Negative for: calf tenderness, pedal edema - Neurological Exam Neurological exam: Alert Additional comments: Oriented to person and year. No pronator drift. Finger to nose intact. Follows commands. Responds to tactile stimuli. - Skin Skin Exam: Intact, Normal Color, Warm Results - Vital Signs Recent Vital Signs: Last Vital Signs Temp 99 F 11/05/16 06:06 Pulse 77 11/05/16 16:00 Resp 19 11/05/16 16:00 BP 159/83 H 11/05/16 16:00 Pulse Ox 99 11/05/16 07:50 - Labs Result Diagrams: 11/05/16 14:00 11/05/16 14:00 Labs: Laboratory Results - last 24 hr 11/05/16 11/05/16 11/05/16 03:25 14:00 14:00 WBC 11.8 H RBC 3.62 Hgb 10.4 L D Hct 31.9 L MCV 88.1 D MCH 28.7 MCHC 32.6 RDW 16.2 H Plt Count 120 MPV 11.4 H Gran % 79.1 H Lymph % (Auto) 13.7 L Hale % (Auto) 7.0 H Eos % (Auto) 0.0 L Baso % (Auto) 0.2 Gran # 9.32 H Lymph # 1.6 Hale # 0.8 H Eos # 0.0 Baso # 0.02 APTT Sodium 139 Potassium 4.2 Chloride 100 Carbon Dioxide 24 Anion Gap 19 BUN 35 H Creatinine 6.6 H Est GFR ( Amer) 10 Est GFR (Non-Af Amer) 8 Random Glucose 154 H Calcium 8.6 Phosphorus 2.8 Magnesium 1.9 Total Bilirubin 0.6 AST 92 H ALT 28 Alkaline Phosphatase 67 Lactate Dehydrogenase 549 Total Creatine Kinase 443 H CK-MB (CK-2) 27.9 H CK-MB (CK-2) % 6.2 H Troponin I 5.28 H* D 27.60 H* D Total Protein 6.3 Albumin 3.5 Globulin 2.8 Albumin/Globulin Ratio 1.3 Triglycerides 76 Cholesterol 102 L LDL Cholesterol Direct 45 HDL Cholesterol 44 Blood Type Antibody Screen Crossmatch BBK History Checked 11/05/16 11/05/16 14:23 14:25 WBC RBC Hgb Hct MCV MCH MCHC RDW Plt Count MPV Gran % Lymph % (Auto) Hale % (Auto) Eos % (Auto) Baso % (Auto) Gran # Lymph # Hale # Eos # Baso # APTT 59.4 H Sodium Potassium Chloride Carbon Dioxide Anion Gap BUN Creatinine Est GFR ( Amer) Est GFR (Non-Af Amer) Random Glucose Calcium Phosphorus Magnesium Total Bilirubin AST ALT Alkaline Phosphatase Lactate Dehydrogenase Total Creatine Kinase CK-MB (CK-2) CK-MB (CK-2) % Troponin I Total Protein Albumin Globulin Albumin/Globulin Ratio Triglycerides Cholesterol LDL Cholesterol Direct HDL Cholesterol Blood Type B POSITIVE Antibody Screen Negative Crossmatch See Detail BBK History Checked Patient has bt Assessment & Plan - Assessment and Plan (Free Text) Plan: 85 y/o M with PMH of ESRD, CAD s/p stent, GI bleed, CVA, gastric cancer, mitral valve prolapse, DM, and vascular dementia presents with NSTEMI and AMS secondary to severe vascular dementia. Pt is mildly worse than baseline according to PMD and family. Transient confusion state likely contributed by underlying chronic and acute medical problems. Patient will continued to be monitored in the ICU for his NSTEMI. Plan as follows. Pt is neurologically stable at this time. Please reconsult as needed. Plan: Avoid sedative medications Keep SBP between 120-130 Monitor electrolytes closely Consider adding Namenda to outpatient regimen Physical and occupational therapy Continue current medical management for other comorbidites Sean, PGY-2 <Laci Garcia - Last Filed: 11/06/16 09:10> Meds - Medications Medications: Current Medications Albuterol/Ipratropium (Duoneb 3 Mg/0.5 Mg (3 Ml) Ud) 3 ml IH [id number] [facility] Last Admin: 11/06/16 08:20 Dose: 3 ml Albuterol/Ipratropium (Duoneb 3 Mg/0.5 Mg (3 Ml) Ud) 3 ml IH Q2H PRN PRN Reason: Shortness of Breath Aspirin (Ecotrin) 81 mg PO DAILY [facility] Last Admin: 11/05/16 18:35 Dose: Not Given Atorvastatin Calcium (Lipitor) 40 mg PO DIN [facility] Last Admin: 11/05/16 18:37 Dose: Not Given Clopidogrel Bisulfate (Plavix) 75 mg PO DAILY [facility] Donepezil HCl (Aricept) 10 mg PO HS [facility] Last Admin: 11/05/16 22:51 Dose: Not Given Ergocalciferol (Drisdol 50,000 Intl Units Cap) 1 cap PO SAT [facility] Folic Acid (Folic Acid) 1 mg PO DAILY [facility] Last Admin: 11/05/16 18:36 Dose: Not Given Heparin Sodium/Dextrose (Heparin 25,000 Units/250ml In D5w) 25,000 units in 250 mls @ 8.11 mls/hr IV .Q24H [facility]; 12 UNITS/KG/HR PRN Reason: Protocol Last Admin: 11/05/16 01:38 Dose: 8.11 mls/hr Doxycycline Hyclate 100 mg/ (Sodium Chloride) 100 mls @ 100 mls/hr IVPB Q12 [facility] PRN Reason: Protocol Insulin Human Lispro (Humalog Low) 0 units SC ACHS [facility] PRN Reason: Protocol Last Admin: 11/05/16 22:51 Dose: Not Given Isosorbide Mononitrate (Imdur) 60 mg PO QAM [facility] Last Admin: 11/05/16 18:37 Dose: Not Given Latanoprost (Xalatan Opht) 0 ml OU HS [facility] Last Admin: 11/05/16 22:52 Dose: Not Given Losartan Potassium (Cozaar) 100 mg PO DAILY [facility] Last Admin: 11/05/16 18:35 Dose: Not Given Metoclopramide HCl (Reglan) 5 mg IVP Q6H [facility] Last Admin: 11/06/16 05:06 Dose: 5 mg Linaclotide [Linzess (] 145 Mcg (Home Med)) 145 mcg PO DAILY [facility] Last Admin: 11/05/16 18:37 Dose: Not Given Nebivolol [Bystolic] (5 Mg (Home Med)) 5 mg PO DAILY [facility] Last Admin: 11/05/16 18:37 Dose: Not Given Pantoprazole Sodium (Protonix Inj) 40 mg IVP Q12 [facility] Last Admin: 11/05/16 22:52 Dose: Not Given Polyethylene Glycol (Miralax) 17 gm PO BID [facility] Sevelamer HCl (Renagel) 800 mg PO TID [facility] Last Admin: 11/05/16 18:39 Dose: Not Given Sodium Phosphate (Fleet Enema) 135 ml RC BID PRN PRN Reason: Constipation Tamsulosin HCl (Flomax) 0.4 mg PO DAILY [facility] Last Admin: 11/05/16 18:36 Dose: Not Given Vitamin B Complex/Vit C/Folic Acid (Nephro-Jaylin) 1 tab PO DAILY [facility] Last Admin: 11/05/16 18:37 Dose: Not Given Ziprasidone (Geodon Inj) 5 mg IM Q6H PRN; Protocol PRN Reason: Agitation Last Admin: 11/05/16 22:30 Dose: 5 mg Results - Vital Signs Recent Vital Signs: Last Vital Signs Temp 98.7 F 11/06/16 04:00 Pulse 75 11/06/16 06:06 Resp 18 11/06/16 06:01 BP 164/97 H 11/06/16 06:01 Pulse Ox 100 11/06/16 06:01 - Labs Result Diagrams: 11/06/16 05:00 11/06/16 05:00 Labs: Laboratory Results - last 24 hr 11/05/16 11/05/16 11/05/16 14:00 14:00 14:00 WBC 11.8 H RBC 3.62 Hgb 10.4 L D Hct 31.9 L MCV 88.1 D MCH 28.7 MCHC 32.6 RDW 16.2 H Plt Count 120 MPV 11.4 H Gran % 79.1 H Lymph % (Auto) 13.7 L Hale % (Auto) 7.0 H Eos % (Auto) 0.0 L Baso % (Auto) 0.2 Gran # 9.32 H Lymph # 1.6 Hale # 0.8 H Eos # 0.0 Baso # 0.02 APTT Sodium 139 Potassium 4.2 Chloride 100 Carbon Dioxide 24 Anion Gap 19 BUN 35 H Creatinine 6.6 H Est GFR ( Amer) 10 Est GFR (Non-Af Amer) 8 Random Glucose 154 H Hemoglobin A1c Calcium 8.6 Phosphorus 2.8 Magnesium 1.9 Total Bilirubin 0.6 AST 92 H ALT 28 Alkaline Phosphatase 67 Troponin I 27.60 H* D Total Protein 6.3 Albumin 3.5 Globulin 2.8 Albumin/Globulin Ratio 1.3 Triglycerides 76 Cholesterol 102 L LDL Cholesterol Direct 45 HDL Cholesterol 44 Vitamin B12 583 25-OH Vitamin D Total Folate 5.0 Free T4 2.39 H Thyroxine (T4) 10.3 TSH 3rd Generation 1.97 RPR Blood Type Antibody Screen Crossmatch BBK History Checked 11/05/16 11/05/16 11/05/16 14:00 14:00 14:23 WBC RBC Hgb Hct MCV MCH MCHC RDW Plt Count MPV Gran % Lymph % (Auto) Hale % (Auto) Eos % (Auto) Baso % (Auto) Gran # Lymph # Hale # Eos # Baso # APTT 59.4 H Sodium Potassium Chloride Carbon Dioxide Anion Gap BUN Creatinine Est GFR ( Amer) Est GFR (Non-Af Amer) Random Glucose Hemoglobin A1c Calcium Phosphorus Magnesium Total Bilirubin AST ALT Alkaline Phosphatase Troponin I Total Protein Albumin Globulin Albumin/Globulin Ratio Triglycerides Cholesterol LDL Cholesterol Direct HDL Cholesterol Vitamin B12 25-OH Vitamin D Total 78.9 Folate Free T4 Thyroxine (T4) TSH 3rd Generation RPR Nonreactive Blood Type Antibody Screen Crossmatch BBK History Checked 11/05/16 11/05/16 11/05/16 14:24 14:25 20:24 WBC RBC Hgb Hct MCV MCH MCHC RDW Plt Count MPV Gran % Lymph % (Auto) Hale % (Auto) Eos % (Auto) Baso % (Auto) Gran # Lymph # Hale # Eos # Baso # APTT 38.6 H Sodium Potassium Chloride Carbon Dioxide Anion Gap BUN Creatinine Est GFR ( Amer) Est GFR (Non-Af Amer) Random Glucose Hemoglobin A1c 5.4 Calcium Phosphorus Magnesium Total Bilirubin AST ALT Alkaline Phosphatase Troponin I Total Protein Albumin Globulin Albumin/Globulin Ratio Triglycerides Cholesterol LDL Cholesterol Direct HDL Cholesterol Vitamin B12 25-OH Vitamin D Total Folate Free T4 Thyroxine (T4) TSH 3rd Generation RPR Blood Type B POSITIVE Antibody Screen Negative Crossmatch See Detail BBK History Checked Patient has bt 11/06/16 11/06/16 05:00 05:00 WBC 9.5 RBC 4.14 Hgb 12.1 L Hct 37.6 L MCV 90.8 MCH 29.2 MCHC 32.2 RDW 16.7 H Plt Count 161 MPV 13.0 H Gran % 72.0 H Lymph % (Auto) 13.6 L Hale % (Auto) 14.2 H Eos % (Auto) 0.0 L Baso % (Auto) 0.2 Gran # 6.84 H Lymph # 1.3 Hale # 1.4 H Eos # 0.0 Baso # 0.02 APTT Sodium 140 Potassium 4.6 Chloride 94 L Carbon Dioxide 29 Anion Gap 22 H BUN 21 Creatinine 4.9 H Est GFR ( Amer) 14 Est GFR (Non-Af Amer) 11 Random Glucose 172 H Hemoglobin A1c Calcium 9.0 Phosphorus 4.7 H Magnesium 1.9 Total Bilirubin 0.7 AST 101 H ALT 36 Alkaline Phosphatase 75 Troponin I Total Protein 8.1 Albumin 4.3 Globulin 3.8 Albumin/Globulin Ratio 1.1 Triglycerides Cholesterol LDL Cholesterol Direct HDL Cholesterol Vitamin B12 25-OH Vitamin D Total Folate Free T4 Thyroxine (T4) TSH 3rd Generation RPR Blood Type Antibody Screen Crossmatch BBK History Checked Attending/Attestation - Attestation I have personally seen and examined this patient.: Yes I have fully participated in the care of the patient.: Yes I have reviewed all pertinent clinical information: Yes
[2016-11-05 17:18] LABS: FREE T4 2.39 ng/dL (0.78-2.19); T4 10.3 ug/dL (5.5-11.0)
[2016-11-05] MEDS: Multivitamin Vitamin B Complex (Nephro-Vite) Tab PO SCH (18:37)
[2016-11-05] MEDS: NEBIVOLOL 5 MG PO SCH (18:37)
--- NOTE | 2016-11-05 21:30 | CON ---
DATE: 11/05/2016 REQUESTING PHYSICIAN: Zeyad Nazario MD REASON FOR CONSULT: I have been asked to see this 85-year-old male with multiple comorbidities including end-stage renal disease on hemodialysis, coronary artery disease with history of coronary artery stent placement, dementia, multiple episodes of GI bleeding over the last 2 years requiring blood transfusions who comes to the hospital with nausea, non bloody emesis and apparent change in his mental status with increasing confusion. Routine blood work showed the patient to have an elevated troponin and a EKG changes. The patient is awake but confused and unable to give any history. History is obtained from the chart. PAST MEDICAL HISTORY: Past medical history is as above. Again the patient has a history of end-stage renal disease on hemodialysis, coronary artery disease with stents, pneumonia, diabetes mellitus, dementia, gastritis, diverticulosis with hemorrhage. PAST SURGICAL HISTORY: Notable for AV fistula placement in his left arm. SOCIAL HISTORY: He is a former cigarette smoker having quit several years ago. He denies alcohol use. Family history is noncontributory. A 14-point review of review of systems is unobtainable due to the patient's confusion. PHYSICAL EXAMINATION: GENERAL: Elderly male lying in bed comfortable, awake but confused. VITAL SIGNS: Reveal temperature 123/89, heart rate is 66. HEENT: Reveal sclerae to be muddy, conjunctivae pink. Neck is supple. CHEST: Reveal distant breath sounds. HEART: Exam reveals regular rate and rhythm. ABDOMEN: Soft and nontender. EXTREMITIES: Show no edema. He does have a fistula in his left arm. LABORATORY DATA: Reveal white blood cell count 12.8, hemoglobin 13.7. Chemistries reveal BUN 31 and creatinine 6.2. Troponin up to 5.28. CT scan of the abdomen and pelvis shows a fecal impaction is his descending sigmoid colon and rectum. No other acute findings are seen. IMPRESSION: This is an 85-year-old male admitted to the hospital with nausea and emesis found to have positive troponin. CT scan of the abdomen and pelvis was negative for intestinal obstruction. He does have a fecal impaction. The patient has been started on heparin and Plavix. He is at high risk for recurrent GI bleeding as the patient has had both upper GI bleed and lower GI bleed from diverticulosis with in the last 1-2 years. RECOMMENDATIONS: 1. Continue further treatment as per cardiology. 2. Continue PPI for stress ulcer prophylaxis. 3. Continue MiraLax for fecal impaction. The patient did receive enema and did have a fairly large bowel movement earlier today. His long-term prognosis is poor and again he is at high risk for recurrent GI bleeding. I will follow this patient with you. Thank you Alexi Hitchcock MD
[2016-11-05] MEDS: Latanoprost 2.5 ml Opht Soln OU SCH (22:52)
--- NOTE | 2016-11-05 23:44 | CON ---
DATE: 11/05/2016 REASON FOR CONSULTATION: Acute coronary syndrome, altered mental status, ESRD, and anemia. HISTORY OF PRESENT ILLNESS: An 85-year-old male known to me from outpatient hemodialysis, was seen in the intensive care unit. The patient was brought to the emergency room with complaints of nausea and vomiting at home. He was also found to be lethargic at home. The patient is a poor historian. The patient history was mostly provided by . Currently, history is mostly obtained from the chart. In the emergency room, his initial troponin was found to be 1.6. EKG showed new ST depressions in V3, V4, and V5. Her second set of troponin was 5.2. The patient admitted to the ICU. The patient was started on Plavix and heparin in the emergency room. Currently, the patient is in the ICU, he is agitated, he has been agitated all day. He is moving all extremities, he recognizes me. He is being started on dialysis at this time. The patient was evaluated by cardiology. Cardiac catheterization and coronary angiography is being considered. PAST MEDICAL AND SURGICAL HISTORY: NIDDM, hypertension, remote history of gastric cancer, GI bleed, mitral valve prolapse, CVA, CAD, stenting, end-stage renal disease, on hemodialysis Tuesday, Tuesday, Tuesday, anemia of chronic kidney disease, dementia, secondary hyperparathyroidism, AV fistula. FAMILY HISTORY: Noncontributory. SOCIAL HISTORY: Ex-smoker, no alcohol use, no IV drug abuse. ALLERGIES: NO KNOWN DRUG ALLERGIES. MEDICATIONS: Currently are Aricept, Cozaar 100, doxycycline 100 q.12, Drisdol, DuoNeb, Ecotrin, Fleet's enema, Flomax, folic acid, Geodon, heparin drip, insulin, Imdur, Linzess, Lipitor, MiraLax, Bystolic, Nephro-Jaylin, Plavix, Protonix, Reglan, Renagel, Rocephin. REVIEW OF SYSTEMS: Unavailable as the patient is agitated, belligerent, unable to cooperate. PHYSICAL EXAMINATION GENERAL: Elderly male, lying in bed in the ICU. VITAL SIGNS: Blood pressure 123/89, heart rate 68, respiratory rate 18 to 20, temperature 99, T-max is 100.6. HEENT: Normocephalic, atraumatic, positive pallor. NECK: Supple, no JVD. LUNGS: Bilateral rhonchi, bilateral equal air entry, no rales. CARDIAC: S1, S2, regular rate and rhythm. No murmur, no rub. ABDOMEN: Obese, distended, soft, nontender, bowel sounds present. EXTREMITIES: No lower extremity edema. INTAKE AND OUTPUT: Not charted. LABORATORY DATA: WBC 11.8, hemoglobin 10.4, hematocrit 32, platelets 120, 86% polys, 4% bands. Sodium 139, potassium 4.4, chloride 96, CO2 of 28, BUN 31, creatinine 6.2, glucose 155, calcium 8.9, AST 38, ALT 30, LDH 549, troponin 1.6 first set, second set 5.28, albumin 4.0. CT of the abdomen and pelvis, fecal impaction, gallstones, nonobstructing right inguinal hernia, interstitial disease and atelectasis at the lung bases, cardiomegaly and atherosclerotic disease. CT of the head, no intracranial hemorrhage. ASSESSMENT: An 85-year-old male with history of NIDDM, hypertension, gastric cancer, GI bleed, CVA, CAD, history of PTCA and stents, brought to the emergency room with complaints of nausea, vomiting and altered mental status. Found to have severe constipation, fecal impaction, elevated WBC count, bandemia, left shift, fever, chills. He is also found to have acute coronary syndrome. 1. Acute coronary syndrome, elevated troponins, ST depressions in V3, V4, V5. 2. Altered mental status. 3. Sepsis/leukocytosis/bandemia. 4. History of NIDDM. 5. History of hypertension. 6. History of dementia. 7. History of CAD/PTCA and stents. 8. History of CVA. 9. History of GI bleed. 10. Fecal impaction/constipation. PLAN: 1. The patient is receiving dialysis at bedside at this time. 2. The patient has been started on heparin and Plavix as per cardiology recommendations. 3. Coronary angiography is being contemplated. 4. Pancultures. 5. Empiric antibiotics to cover for GI source. 6. Fingerstick monitoring and attempt euglycemia. 7. Case discussed with ICU nurses, ICU staff, development eng. Case discussed with dialysis nurse. More than 35 minutes was spent in the care of this critically ill patient. Brinda Ibarra MD [facility] # [id number]
--- NOTE | 2016-11-05 23:46 | CARD ---
APPROVED REPORT EKG Measurement Heart [id number] <Conclusion> Sinus rhythm with 1st degree AV block Right bundle branch block Left anterior fascicular block Bifascicular block T wave abnormality, consider lateral ischemia Prolonged QT interval Abnormal ECG
--- NOTE | 2016-11-05 23:52 | CARD ---
APPROVED REPORT EKG Measurement Heart [id number] <Conclusion> Sinus rhythm with 1st degree AV block Right bundle branch block Left anterior fascicular block Bifascicular block T wave abnormality, consider lateral ischemia Abnormal ECG
--- NOTE | 2016-11-06 03:13 | HP ---
HISTORY OF PRESENT ILLNESS: The patient is an 85-year-old hemodialysis dependent male presented to the emergency room, was bought to the emergency room by [facility] BLS ambulance. According to the patient's , was found to have vomiting and has been having some difficulty with breathing and patient was not at his base line. The patient was found with nausea, vomiting and lethargy at home. While patient was evaluated in the emergency room, the patient was found to have abnormal EKG and elevated troponin. CODE STATUS: FULL CODE. LIVING WILL/ADVANCED DIRECTIVE: FULL CODE. ALLERGIES: NONE. HEIGHT: 5 feet 8 inches. WEIGHT: 149 pounds. BMI: 23. HOME MEDICATIONS: Aricept 10 daily, vitamin D 50,000 unit two weekly, Tessalon Perles 3 times a day p.r.n., Lipitor 40 mg daily, Ecotrin 81 mg daily, Reglan 5 mg as needed, Linzess 145 mcg daily, Imdur 60 mg daily, Levemir 5 units twice a day or once a day, folic acid 1 mg daily, Cozaar 100 mg daily, Suzanna-Jaylin 1 tablet daily, Flomax 0.4 mg daily, Travatan eye drops at bedtime to both eyes, Renagel 800 three times a day,omeprazole 20 mg once or twice a day,Bystolic 5 mg daily. SOCIAL HISTORY: Positive for former smoker, negative for alcohol, negative for drug use. FAMILY HISTORY: Not available. PAST MEDICAL AND SURGICAL HISTORY: History of cerebral infract; history of dementia; history of poor compliance and compliance; history of hypovitaminosis D; history of end-stage renal disease, hemodialysis dependence; history of dyslipidemia; questionable history of gastric carcinoma,status post gastrectomy; history of dyslipidemia; history of multiple non-ST elevation mycoardial infraction; history of coronary artery disease; history of diabetic gastroparesis; history of constipation;history of insulin requiring diabetes mellitus; history of hypertension; history of prostatic hypotrophy; history of coronary artery disease; history of mycoardial infraction; history of questionable peripheral vascular disease; history of angioplasty and stent placement; history of dyslipidemia, history of type 1 diabetes mellitus; history of diverticulitis; history of constipation; history of gastroesophageal reflux; history of end-stage renal disease, hemodialysis dependent; history of prostate hypotrophy; history of glaucoma; history of degenerative joint disease; history of cerebral vascular accident and transient ischemic infract; history of former smoker; history of chronic obstructive pulmonary disease; history of pneumonia; history of gastric carcinoma; history of left upper extremity AV fistula; history of gait dysfunction; history of bilateral cerebral dysfunction; history of gastritis; and history of hiatal hernia. 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 Past medical history is also significant for insulin requiring type 1 diabetes mellitus; history of concentric left ventricular hypertrophy; history of moderate pulmonary hypertension with right ventricular systolic pressure 40 mmHg; history of mild mitral regurgitation; mild tricuspid regurgitation; aortic sclerosis. Past medical history is also significant for chronic gastritis. The patient was seen and evaluated in the emergency room by . Patient was found to have abnormal EKG and abnormal troponin. PHYSICAL EXAMINATION: VITAL SIGNS: T-max 100.6, down to 99, telemetry shows sinus rhythm; heart rate in 70s and 80s; blood pressure 159/93 to 150/81 to 122/74 to 131/71, 123/89; respiration in 20s; O2 sat is 100%. HEENT: Head is normocephalic and atraumatic. HEENT examination shows pinkish pale conjunctivae. Dirty sclerae. No oropharyngeal lesion. NECK: No neck rigidity. Questionable soft carotid bruit. CHEST: Kyphosis. LUNGS: Shows positive rhonchi bilaterally at the bases. CARDIOVASCULAR: S1 and S2, regular rhythm. Questionable soft systolic murmur, right second intercostal space, left sternal border, left second intercostal space. ABDOMEN: Soft, slightly protuberant. GENITALIA: Male. RECTAL: Deferred. EXTREMITIES: Left lower extremity shows positive. Left upper extremity AV fistula. Positive thrill. Lower extremity shows no pitting edema. No calf tenderness. No Homans' sign. MUSCULOSKELETAL: Shows a body mas index of 23. DIAGNOSTIC DATA: WBC of 12.8, hemoglobin and hematocrit of 13.7 and 42.3, platelets 165, granulocytes 86, and bands 4. PT and PTT 11.2 and 22.5. Sodium of 139, potassium 4.4, chloride 96, CO2 of 28, anion gap 19, BUN 31, creatinine 6.2. GFR 10. Glucose 140 and 155. LFTs are normal. CPK 241 and 443 and troponin 1.6, now repeat troponin 5.28. CT head is pending. Neurologically patient is alert awake, responsive ,confused, disoriented. Patient is alert, awake oriented x0 at present. CT abdomen and pelvis is reviewed. CT head is pending. EKG shows sinus rhythm, bifascicular block, right bundle branch block, left anterior hemiblock. ST depression V1, V2, V3, V4, V5. Seen by the emergency room physician and the patient was also evaluated by the intensive care physician. IMPRESSION: 1. Nausea and vomiting, etiology undetermined. 2. Acute non-ST elevation mycoardial infraction with elevated troponin. 3. Questionable anterolateral coronary ischemia with ST depression in V1-V5. 4. Right bundle-branch block, left anterior hemiblock and bifascicular block. 5. Fever etiology, undetermined. 6. Questionable systemic inflammatory response syndrome. 7. Hiatal hernia. 8. Bibasilar opacities questionable interstitial marking versus pneumonia. 9. Chololithiasis. 10. Bilateral renal cyst. 11. Right inguinal nonobstructive hernia. 12. Fecal retention and stasis and constipation. 13. Bladder wall thickening. 14. Prostatomegaly. 15. Degenerative joint disease. 16. Left inguinal hernia containing bladder. 17. Nonobstructive right inguinal hernia containing distal ileum. 18. Encephalopathy with confusion. 19. Bifascicular block, right bundle-branch block and left anterior hemiblock. 20. Chronic ischemia. 21. History of poor compliance. 22. History of gastrointestinal bleeding. 23. Leukocytosis, granulocytosis and bandemia. 24. End-stage renal disease, hemodialysis dependent. 25. Acute non-ST elevation myocardial infarction with elevated troponin. 26. History of gastrointestinal bleeding. 27. History of dementia. 28. History of poor compliance. 29. Episodic nausea and vomiting, questionable diabetic gastroparesis. PLAN: The patient is admitted to the ICU. The patient has been ordered serial labs and serial cardiac enzymes. Blood cultures were done. Consultation with Cardiology, Gastroenterology, Nephrology, Neurology and Infectious Disease. Current medications are Aricept 10 mg at bedtime, Cozaar 100 mg daily, doxycycline 100 mg IV q. 12 hours, Drisdol 50,000 weekly, DuoNeb nebulizer every 6 hours around the clock q. 12 hours p.r.n., Ecotrin 81 mg daily. The patient also wanted a Fleet Enema , Flomax 0.4 mg daily, folic acid 1 mg daily. Patient is ordered Geodon 5 mg IM q. 6 hours p.r.n. for agitation. The patient is presently on heparin drip, Humalog low dose coverage, Imdur 60 mg, Linzess 145 mg daily, Lipitor 40 mg daily, Miralax 17 g twice a day,Bystolic 5 mg daily, Nephro-Jaylin 1 tablet daily. The patient received Plavix 300 mg then Plavix 75 mg daily, Protonix 40 IV q. 12 hours, Reglan 5 mg q.i.d., Renagel 800 mg 3 times a day, Rocephin 1 g IV daily. The patient receive vancomycin 1 g IV in the ER, Zosyn 2.25 g in the ER. The patient is on Zofran 4 mg IV q 4 hours p.r.n. The patient's CT of the head, which is ordered is pending, repeat EKG ordered is pending. The patient has been ordered swallowing evaluation. The patient has been ordered repeat EKG for the morning. Repeat labs ordered. The patient has been ordered lipid panel, thyroid panel, B12, folate, RPR, vitamin D 25-hydroxy has been ordered. At present patient's condition management will be dependent on patient's clinical condition, hemodynamic status as per the patient's response to therapeutic intervention,as per the patient's diagnostic test results and as per recommendation by all the physician involved in the care of the patient. Dictated and electronically signed, not read. Zeyad Nazario MD
[2016-11-06 05:39] LABS: BASO # 0.02 K/mm3 (0.0-2.0); BASO % 0.2 % (0.0-3.0); GRAN # 6.84 (1.4-6.5); HEMOGLOBIN 12.1 g/dL (14.0-18.0); LYMPH # 1.3 (1.2-3.4); LYMPH % 13.6 % (22.0-35.0); MEAN CELL VOLUME 90.8 fl (80.0-105.0); MEAN CORPUSCULAR HEMOGLOBIN 29.2 pg (25.0-35.0); MEAN CORPUSCULAR HGB CONC 32.2 g/dl (31.0-37.0); MONO # 1.4 (0.1-0.6); MONO % 14.2 % (1.0-6.0); RBC 4.14 10^6/uL (3.5-6.1); RED CELL DISTRIBUTION WIDTH 16.7 % (11.5-14.5); WHITE BLOOD COUNT 9.5 10^3/ul (4.5-11.0)
[2016-11-06 05:53] LABS: ALB/GLOB RATIO 1.1 (1.1-1.8); ALBUMIN 4.3 g/dL (3.0-4.8); MAGNESIUM 1.9 mg/dL (1.7-2.2)
[2016-11-06] MEDS: Insulin Lispro (humaLOG) LOW Coverage SC SCH ×4 (07:30→22:52)
[2016-11-06 07:46] LABS: PLATELET COUNT 161 10^3/uL (120.0-450.0)
[2016-11-06] MEDS: Albuterol-Ipratrop 3 mg / 0.5 (3 ml) UD IH SCH ×3 (08:20→19:34)
--- NOTE | 2016-11-06 09:36 | PN ---
DATE: 11/06/2016 CERTIFIED HISTOLOGIC TECHNICIAN NOTE SUBJECTIVE: The patient is resting in bed. No respiratory distress. No obvious pain. The patient is hemodynamically stable at this point. Continues to be lethargic, but does have movement response to touch as far as stimuli. No cough, no congestion. PHYSICAL EXAMINATION VITAL SIGNS: Note that his temperature is 98.7, pulse is 75, respirations are 18 and BP is 164/97. O2 saturation is 100%. SKIN: Warm and dry. HEENT: Head: Atraumatic, normocephalic. Eyes: Reactive to light. Ears, nose and throat seem to be within normal limits. NECK: Supple. No JVD. No thyroid enlargement. No lymph nodes. HEART: Regular rate and rhythm. Normal S1 and S2. LUNGS: Reveal some decreased breath sounds at the bases. ABDOMEN: Soft, decreased bowel sounds. GENITALIA AND RECTAL: Deferred. MUSCULOSKELETAL: No joint deformities. EXTREMITIES: Reveal trace lower extremity edema. NEUROLOGIC: The patient is lethargic, but moving all extremities. LABORATORY DATA: As far as laboratories are concerned, white count is 9.5, hemoglobin is 12.1 and hematocrit 37.6 with platelets of 161,000. Sodium is 140, potassium 4.6, chloride 94 and CO2 of 29 with a BUN of 21 and creatinine of 4.9 and glucose of 172. IMPRESSION: The patient has non-ST segment elevation myocardial infarction and history of dementia as well as end-stage renal disease, coronary artery disease with stent, cerebrovascular accident, gastric carcinoma, diabetes and a past history of gastrointestinal bleed. PLAN: At this point, medical treatment for the myocardial infarction is recommended as per cardiology. The patient is getting doxycycline and DuoNeb as well as aspirin, IV heparin, Plavix as well as Reglan. We will continue to monitor closely and treat aggressively along with the other consultants and the primary care doctor. Nathan Vasquez MD
[2016-11-06 09:39] LABS: CK MB% 2.5 % (2.5-3.0)
[2016-11-06 09:46] LABS: TROPONIN I 27.2 ng/mL
[2016-11-06] MEDS ORDERED: Ergocalciferol 50,000 Intl Units Cap PO SCH (10:00)
[2016-11-06] MEDS: Heparin 25,000units in D5W 25,000 UNITS/250 ML BAG IV SCH (10:05)
--- NOTE | 2016-11-06 10:28 | CP.PCM.CON ---
History of Present Illness - History of Present Illness History of Present Illness: 85 year old male with PMH of healthcare associated pneumonia, ESRD on HD, coronary artery disease, Cerebrovascular accident, Gastric cancer, Mitral valve prolapse, DM, dementia was brought in to [facility] because of nausea and vomiting. He was also noted to be more confused than usual yesterday and lethargic. Full review of systems is unobtainable because of the patient's dementia. There was no note of fever, no convulsions, no loss of consciousness, no diarrhea, no bowel or bladder incontinence. In the ED, he was noted to have elevated Troponins and had one episode of 100.6 F temperature last night. Infectious diseases consult is requested to further evaluate and manage. Review of Systems - Review of Systems Systems not reviewed;Unavailable: Dementia Past Patient History - Infectious Disease Hx of Infectious Diseases: None - Tetanus Immunizations Tetanus Immunization: Unknown - Past Medical History & Family History Past Medical History?: Yes - Past Social History Smoking Status: Former Smoker - CARDIAC Hx Cardiac Disorders: Yes - PULMONARY Hx Respiratory Disorders: Yes Hx Pneumonia: Yes - NEUROLOGICAL HX Cerebrovascular Accident: Yes - HEENT Hx HEENT Problems: Yes (WEARS RX GLASSES) Hx Epistaxis: Yes - RENAL Hx Renal Failure: Yes - ENDOCRINE/METABOLIC Hx Diabetes Mellitus Type 2: Yes - HEMATOLOGICAL/ONCOLOGICAL Hx Cancer: Yes (gastric) - INTEGUMENTARY Hx Dermatological Problems: No - MUSCULOSKELETAL/RHEUMATOLOGICAL Hx Musculoskeletal Disorders: Yes Hx Falls: Yes (past) - GASTROINTESTINAL Hx Gastrointestinal Disorders: Yes (diverticulitis/reflux) - GENITOURINARY/GYNECOLOGICAL Hx Genitourinary Disorders: Yes (pt voids) Hx Reproductive Disorders: Yes - PSYCHIATRIC Hx Psychophysiologic Disorder: No Hx Emotional Abuse: No Hx Substance Use: No - SURGICAL HISTORY Other/Comment: AV shunt placement. - ANESTHESIA Hx Anesthesia Reactions: No Hx Malignant Hyperthermia: No Meds Allergies/Adverse Reactions: Allergies Allergy/AdvReac Type Severity Reaction Status Date / Time No Known Allergies Allergy Verified 11/04/16 19:37 - Medications Medications: Current Medications Albuterol/Ipratropium (Duoneb 3 Mg/0.5 Mg (3 Ml) Ud) 3 ml IH [id number] [facility] Last Admin: 11/05/16 20:25 Dose: Not Given Albuterol/Ipratropium (Duoneb 3 Mg/0.5 Mg (3 Ml) Ud) 3 ml IH Q2H PRN PRN Reason: Shortness of Breath Aspirin (Ecotrin) 81 mg PO DAILY [facility] Last Admin: 11/05/16 18:35 Dose: Not Given Atorvastatin Calcium (Lipitor) 40 mg PO DIN [facility] Last Admin: 11/05/16 18:37 Dose: Not Given Clopidogrel Bisulfate (Plavix) 75 mg PO DAILY [facility] Donepezil HCl (Aricept) 10 mg PO HS [facility] Ergocalciferol (Drisdol 50,000 Intl Units Cap) 1 cap PO SAT [facility] Folic Acid (Folic Acid) 1 mg PO DAILY [facility] Last Admin: 11/05/16 18:36 Dose: Not Given Heparin Sodium/Dextrose (Heparin 25,000 Units/250ml In D5w) 25,000 units in 250 mls @ 8.11 mls/hr IV .Q24H [facility]; 12 UNITS/KG/HR PRN Reason: Protocol Last Admin: 11/05/16 01:38 Dose: 8.11 mls/hr Insulin Human Lispro (Humalog Low) 0 units SC ACHS [facility] PRN Reason: Protocol Last Admin: 11/05/16 19:34 Dose: Not Given Isosorbide Mononitrate (Imdur) 60 mg PO QAM [facility] Last Admin: 11/05/16 18:37 Dose: Not Given Latanoprost (Xalatan Opht) 0 ml OU HS [facility] Losartan Potassium (Cozaar) 100 mg PO DAILY [facility] Last Admin: 11/05/16 18:35 Dose: Not Given Metoclopramide HCl (Reglan) 5 mg IVP Q6H [facility] Last Admin: 11/05/16 18:39 Dose: 5 mg Linaclotide [Linzess (] 145 Mcg (Home Med)) 145 mcg PO DAILY [facility] Last Admin: 11/05/16 18:37 Dose: Not Given Nebivolol [Bystolic] (5 Mg (Home Med)) 5 mg PO DAILY [facility] Last Admin: 11/05/16 18:37 Dose: Not Given Pantoprazole Sodium (Protonix Inj) 40 mg IVP Q12 [facility] Last Admin: 11/05/16 18:39 Dose: 40 mg Polyethylene Glycol (Miralax) 17 gm PO BID [facility] Sevelamer HCl (Renagel) 800 mg PO TID [facility] Last Admin: 11/05/16 18:39 Dose: Not Given Sodium Phosphate (Fleet Enema) 135 ml RC BID PRN PRN Reason: Constipation Tamsulosin HCl (Flomax) 0.4 mg PO DAILY [facility] Last Admin: 11/05/16 18:36 Dose: Not Given Vitamin B Complex/Vit C/Folic Acid (Nephro-Jaylin) 1 tab PO DAILY [facility] Last Admin: 11/05/16 18:37 Dose: Not Given Ziprasidone (Geodon Inj) 5 mg IM Q6H PRN; Protocol PRN Reason: Agitation Physical Exam - Constitutional Appears: Other (somewhat lethargic, but patient just received Ativan) - Head Exam Head Exam: NORMAL INSPECTION - Neck Exam Neck exam: Negative for: Lymphadenopathy, Meningismus - Respiratory Exam Respiratory Exam: Decreased Breath Sounds - Cardiovascular Exam Cardiovascular Exam: +S1, +S2 - GI/Abdominal Exam GI & Abdominal Exam: Soft. absent: Tenderness Results - Vital Signs Recent Vital Signs: Last Vital Signs Temp 99 F 11/05/16 06:06 Pulse 77 11/05/16 19:00 Resp 25 H 11/05/16 19:00 BP 170/93 H 11/05/16 18:45 Pulse Ox 99 11/05/16 07:50 - Labs Result Diagrams: 11/06/16 05:00 11/06/16 05:00 Labs: Laboratory Results - last 24 hr 11/05/16 11/05/16 11/05/16 03:25 14:00 14:00 WBC 11.8 H RBC 3.62 Hgb 10.4 L D Hct 31.9 L MCV 88.1 D MCH 28.7 MCHC 32.6 RDW 16.2 H Plt Count 120 MPV 11.4 H Gran % 79.1 H Lymph % (Auto) 13.7 L Benton % (Auto) 7.0 H Eos % (Auto) 0.0 L Baso % (Auto) 0.2 Gran # 9.32 H Lymph # 1.6 Benton # 0.8 H Eos # 0.0 Baso # 0.02 APTT Sodium 139 Potassium 4.2 Chloride 100 Carbon Dioxide 24 Anion Gap 19 BUN 35 H Creatinine 6.6 H Est GFR ( Amer) 10 Est GFR (Non-Af Amer) 8 Random Glucose 154 H Calcium 8.6 Phosphorus 2.8 Magnesium 1.9 Total Bilirubin 0.6 AST 92 H ALT 28 Alkaline Phosphatase 67 Lactate Dehydrogenase 549 Total Creatine Kinase 443 H CK-MB (CK-2) 27.9 H CK-MB (CK-2) % 6.2 H Troponin I 5.28 H* D 27.60 H* D Total Protein 6.3 Albumin 3.5 Globulin 2.8 Albumin/Globulin Ratio 1.3 Triglycerides 76 Cholesterol 102 L LDL Cholesterol Direct 45 HDL Cholesterol 44 Free T4 Thyroxine (T4) TSH 3rd Generation Blood Type Antibody Screen Crossmatch BBK History Checked 11/05/16 11/05/16 11/05/16 14:00 14:23 14:25 WBC RBC Hgb Hct MCV MCH MCHC RDW Plt Count MPV Gran % Lymph % (Auto) Benton % (Auto) Eos % (Auto) Baso % (Auto) Gran # Lymph # Benton # Eos # Baso # APTT 59.4 H Sodium Potassium Chloride Carbon Dioxide Anion Gap BUN Creatinine Est GFR ( Amer) Est GFR (Non-Af Amer) Random Glucose Calcium Phosphorus Magnesium Total Bilirubin AST ALT Alkaline Phosphatase Lactate Dehydrogenase Total Creatine Kinase CK-MB (CK-2) CK-MB (CK-2) % Troponin I Total Protein Albumin Globulin Albumin/Globulin Ratio Triglycerides Cholesterol LDL Cholesterol Direct HDL Cholesterol Free T4 2.39 H Thyroxine (T4) 10.3 TSH 3rd Generation 1.97 Blood Type B POSITIVE Antibody Screen Negative Crossmatch See Detail BBK History Checked Patient has bt Assessment & Plan - Assessment and Plan (Free Text) Plan: Assessment Systemic Inflammatory Response Syndrome, consider due to NSTEMI, R/O sepsis from HCAP dementia history of sepsis from healthcare-associated pneumonia on top of non-ST elevation DC with acute congestive heart failure, clinically improved and S/P treatment history of GI bleeding ESRD on HD cornoary artery disease Cerebrovascular accident Gastric cancer Mitral valve prolapse Plan will give a dose of IV Vancomycin, continue Doxycycline and start cefepime; follow up PCT, blood cx follow up further Cardiology plans will monitor clinically
[2016-11-06] MEDS ORDERED: Cefepime 1gm in NS 100ml 1 GM/100 ML BAG IVPB SCH (10:30)
[2016-11-06] MEDS ORDERED: Vancomycin 1gm in NS 250ml 1 GM/250 ML BAG IVPB ONE (10:30)
--- NOTE | 2016-11-06 14:54 | PN ---
DATE: 11/06/2016 SUBJECTIVE: The patient is seen lying in the 4. The patient is alert, awake, responsive, confused. PHYSICAL EXAMINATION: VITAL SIGNS: T-max is 99.8. Telemetry shows sinus rhythm. Heart rate 78-80s. Blood pressure 164/97, 147/82, 153/101, 166/101. Respirations 18, O2 sat 100%. HEAD: Normocephalic and atraumatic. HEENT: Shows pink conjunctivae. Anicteric sclerae. No oropharyngeal lesion. NECK: No neck rigidity. Soft carotid bruit. CHEST: Kyphosis. LUNGS: Shows positive rhonchi. CARDIOVASCULAR: S1 and S2, regular rhythm. Questionable soft systolic murmur, left sternal border, right second intercostal space. ABDOMEN: Soft, positive bowel sounds. GENITALIA: Male. RECTAL: Deferred. EXTREMITIES: Positive left upper extremity fistula, positive thrill. NEUROLOGIC: The patient is alert, awake, oriented x0, confused, disoriented. MUSCULOSKELETAL: Shows a body mas index of 43. LABORATORY DATA: 11/06/2016, WBC 9.5, hemoglobin and hematocrit 12.1 and 37.6, platelet 161. Granulocytes 72%. PTT is 22.5, 59.4, 36.6, greater than 180. Sodium 140, potassium 4.6, chloride 94, CO2 29, anion gap 22, BUN 21, creatinine 4.9, glucose 172, hemoglobin A1c 5.4, phosphorus 5.7, magnesium 1.9, AST 101, CPK 595, troponin 27.2, peak troponin 27.6. LFTs are normal. Vitamin D 25-hydroxy is 79, B12 is within normal limits of 583. Cholesterol 102. LDL 45. RPR negative. MRSA, none detected. Blood cultures negative. CT head was done yesterday, chronic microvascular ischemic changes noted. EKG from 11/06/2016, show sinus rhythm, left anterior hemiblock, right bundle branch block, bifascicular block. IMPRESSION: 1. Acute non-ST elevation mycoardial infraction with elevated CPK and elevated troponin with history of coronary artery disease. 2. Transient uncontrolled hypertension. 3. Encephalopathy. 4. Acute exacerbation of dementia. 5. Leukocytosis with granulocytosis and bandemia. 6. Normocytic anemia. 7. End-stage renal disease, hemodialysis dependent three times a week via the left upper extremity AV fistula. 8. Transaminitis. 9. 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 10. Bifascicular block with left anterior hemiblock, right bundle branch block. 11. Systemic inflammatory response syndrome. 12. Acute confusional state with history of dementia. 13. Moderate oropharyngeal dysphagia with risk for aspiration. PLAN: At this time, the patient is continued severe labs. Current consultation with cardiology, gastroenterology, nephrology, neurology and infectious disease. The patient seen by infectious disease, neurology, nephrology, cardiology, gastroenterology and their recommendations were noted. For moderate oropharyngeal dysphagia with risk for aspiration, the recommended treatment is bland pureed and thin liquid diet. At present, the patient will be considered on above treatment plan. CURRENT MEDICATIONS: The patient is on Aricept 10 mg at bedtime, Cozaar 100 mg daily, doxycycline 100 mg IV q.12 hours, Drisdol 50,000 weekly which will be discontinued as the patient's vitamin D level is very acceptable. The patient is on DuoNeb nebulizer every 6 hours around the clock q.12 hours p.r.n., Ecotrin 81 mg daily. The patient is on Flomax 0.4 mg daily, folic acid 1 mg, Geodon 5 mg IM q. 6 hours p.r.n, heparin drip, Imdur 60 mg daily, the patient's isosorbide will be increased to 120 mg for blood pressure control and acute non-ST elevation [place]. The patient is on Lipitor 40 mg daily, Cefepime 1 g IV q. 24 hours, Miralax 17 g twice a day, Bystolic 5 mg daily, Nephro-Jaylin 1 tablet daily, Plavix 75 mg daily, Protonix 40 twice a day, Reglan 5 mg IV q. 6 hours, Renagel 800 3 times a day. The patient received a dose of vancomycin. Repeat EKG ordered. Time spent in the entire management and review of old data, more than 35 minutes. Dictated and electronically signed, not read. Signing off, Zeyad Nazario MD Zeyad Nazario MD
[2016-11-06] MEDS: POLYETHYLENE GLYCOL 3350 17 GM/Dose PACKET PO SCH (16:55)
--- NOTE | 2016-11-06 17:09 | PN ---
DATE: 11/06/2016 SUBJECTIVE: The patient is resting comfortably. PHYSICAL EXAMINATION: VITAL SIGNS: Blood pressure is 164/97, heart rate in the 70s, normal sinus rhythm. NECK: Negative JVD. LUNGS: Without rales. HEART: S1 and S2. EXTREMITIES: Without edema. LABORATORY DATA: Hemoglobin is 12.1. Chemistries: Troponin of 27, BUN and creatinine is 21 and 4.9. IMPRESSION 1. Non-ST segment elevation myocardial infarction. 2. Renal insufficiency. 3. Marked dementia. 4. Coronary artery disease. 5. History of hypercholesterolemia. PLAN: Given these findings, we will continue the heparin to the next 24 hours. The patient's NSTEMI has been treated medically given his multiple comorbidities. Jamin Dewey MD
--- NOTE | 2016-11-06 18:52 | CARD ---
APPROVED REPORT EKG Measurement Heart [id number] <Conclusion> Sinus rhythm with 1st degree AV block Left axis deviation Right bundle branch block Abnormal ECG
[2016-11-06] MEDS: Latanoprost 2.5 ml Opht Soln OU SCH (22:17)
[2016-11-07] MEDS: Albuterol-Ipratrop 3 mg / 0.5 (3 ml) UD IH SCH ×4 (01:44→20:01)
[2016-11-07 06:01] LABS: HEMOGLOBIN 12.3 g/dL (14.0-18.0); MEAN CELL VOLUME 88.2 fl (80.0-105.0); MEAN CORPUSCULAR HGB CONC 32.9 g/dl (31.0-37.0); PLATELET COUNT 153 10^3/uL (120.0-450.0); RBC 4.24 10^6/uL (3.5-6.1); RED CELL DISTRIBUTION WIDTH 16.8 % (11.5-14.5); WHITE BLOOD COUNT 8.4 10^3/ul (4.5-11.0)
[2016-11-07 06:11] LABS: ALB/GLOB RATIO 1.1 (1.1-1.8); ALBUMIN 3.8 g/dL (3.0-4.8); CALCIUM 8.7 mg/dL (8.4-10.5); MAGNESIUM 2.1 mg/dL (1.7-2.2)
[2016-11-07 06:40] LABS: TROPONIN I 22.4 ng/mL
[2016-11-07] MEDS: Multivitamin Vitamin B Complex (Nephro-Vite) Tab PO SCH ×2 (09:14→09:15)
[2016-11-07] MEDS: POLYETHYLENE GLYCOL 3350 17 GM/Dose PACKET PO SCH ×3 (09:14→17:47)
[2016-11-07] MEDS: NEBIVOLOL 5 MG PO SCH ×2 (09:14→09:42)
[2016-11-07] MEDS: Meropenem 500 MG in Sodium Chloride 0.9% 100 ML IVPB SCH ×2 (09:41→21:46)
[2016-11-07] MEDS: Insulin Lispro (humaLOG) LOW Coverage SC SCH ×3 (09:43→17:47)
--- NOTE | 2016-11-07 10:18 | PN ---
DE ICER INSTALLER NOTE DATE: 11/07/2016 SUBJECTIVE: The patient is resting in bed. No distress this morning. O2 via nasal cannula. No significant cough or congestion. No fever or chills. No nausea or vomiting. PHYSICAL EXAMINATION: VITAL SIGNS: Temperature is 97.5, pulse is 74, respirations 28, BP is 153/67. O2 saturation is 95%. HEENT: Head is atraumatic, normocephalic. Eyes, reactive to light. Ears, nose and throat seen to be within normal limits. NECK: Supple. No JVD. No thyroid enlargement. No lymph nodes. HEAR: Regular rate and rhythm. Normal S1 and S2. LUNGS: Reveal rare rhonchi at the bases. ABDOMEN: Soft. Decreased bowel sounds. GENITALIA AND RECTAL: Deferred. MUSCULOSKELETAL: No joint deformities. EXTREMITIES: Reveal lower extremity edema. NEUROLOGIC: Neurologically, he does seem little lethargic, but moves all extremities. LABORATORY DATA: Reveal a white count of 8.4, hemoglobin is 12.3, hematocrit 37.4 with platelets of 153,000. Sodium is 139, potassium 4.5, chloride 98, CO2 of 27 with the BUN of 42, creatinine of 7.2 and glucose of 129. The patient's troponin is 22.4. IMPRESSION: As far as my impression, the patient had a non-ST segment elevation myocardial infarction with a history of dementia, end-stage renal disease, coronary artery disease with stent, cerebrovascular accident, gastric carcinoma, diabetes as well as a past history of gastrointestinal bleed. PLAN: As far as our plan, we will continue with aggressive medical treatment for the myocardial infarction as per Cardiology. The patient is on doxycycline and nebulizer as well as aspirin, IV heparin, Plavix and Reglan. We will continue to follow and treat. Nathan Vasquez MD
--- NOTE | 2016-11-07 13:50 | CARD ---
APPROVED REPORT EKG Measurement Heart [id number] <Conclusion> Normal sinus rhythm Right bundle branch block Left anterior fascicular block Bifascicular block T wave abnormality, consider lateral ischemia Abnormal ECG
--- NOTE | 2016-11-07 14:05 | CP.PCM.PN ---
Subjective - Date & Time of Evaluation Date of Evaluation: 11/07/16 Time of Evaluation: 09:50 - Subjective Subjective: Had fever at 5pm yesterday but has been afebrile ever since. More awake and alert today. Objective - Vital Signs/Intake and Output Vital Signs (last 24 hours): Temp Pulse Resp BP Pulse Ox 97.5 F L 76 28 H 153/67 H 95 11/07/16 04:00 11/07/16 06:00 11/07/16 06:00 11/07/16 06:00 11/07/16 06:00 Intake and Output: 11/07/16 11/07/16 06:59 18:59 Intake Total 724 Output Total 50 Balance 674 - Medications Medications: Current Medications Acetaminophen (Tylenol 650 Mg Supp) 650 mg RC Q6H PRN PRN Reason: Fever >100.4 F Last Admin: 11/06/16 17:25 Dose: 650 mg Albuterol/Ipratropium (Duoneb 3 Mg/0.5 Mg (3 Ml) Ud) 3 ml IH [id number] [facility] Last Admin: 11/07/16 01:44 Dose: Not Given Albuterol/Ipratropium (Duoneb 3 Mg/0.5 Mg (3 Ml) Ud) 3 ml IH Q2H PRN PRN Reason: Shortness of Breath Aspirin (Ecotrin) 81 mg PO DAILY [facility] Last Admin: 11/05/16 18:35 Dose: Not Given Atorvastatin Calcium (Lipitor) 40 mg PO DIN [facility] Last Admin: 11/05/16 18:37 Dose: Not Given Clopidogrel Bisulfate (Plavix) 75 mg PO DAILY [facility] Donepezil HCl (Aricept) 10 mg PO HS [facility] Last Admin: 11/06/16 21:48 Dose: 10 mg Folic Acid (Folic Acid) 1 mg PO DAILY [facility] Last Admin: 11/05/16 18:36 Dose: Not Given Heparin Sodium/Dextrose (Heparin 25,000 Units/250ml In D5w) 25,000 units in 250 mls @ 8.11 mls/hr IV .Q24H FRANCISCO JAVIER; 12 UNITS/KG/HR PRN Reason: Protocol Last Titration: 11/07/16 00:19 Dose: 13 units/kg/hr, 8.786 mls/hr Doxycycline Hyclate 100 mg/ (Sodium Chloride) 100 mls @ 100 mls/hr IVPB Q12 FRANCISCO JAVIER PRN Reason: Protocol Last Admin: 11/06/16 22:51 Dose: 100 mls/hr Cefepime HCl (Maxipime 1gm) 1 gm in 100 mls @ 100 mls/hr IVPB Q24H FRANCISCO JAVIER PRN Reason: Protocol Last Admin: 11/06/16 10:56 Dose: 100 mls/hr Insulin Human Lispro (Humalog Low) 0 units SC ACHS FRANCISCO JAVIER PRN Reason: Protocol Last Admin: 11/06/16 22:52 Dose: Not Given Isosorbide Mononitrate (Imdur) 120 mg PO DAILY [facility] Latanoprost (Xalatan Opht) 0 ml OU HS [facility] Last Admin: 11/06/16 22:17 Dose: Not Given Losartan Potassium (Cozaar) 100 mg PO DAILY [facility] Last Admin: 11/05/16 18:35 Dose: Not Given Metoclopramide HCl (Reglan) 5 mg IVP Q6H [facility] Last Admin: 11/07/16 05:09 Dose: 5 mg Linaclotide [Linzess (] 145 Mcg (Home Med)) 145 mcg PO DAILY [facility] Last Admin: 11/06/16 16:55 Dose: Not Given Nebivolol [Bystolic] (5 Mg (Home Med)) 5 mg PO DAILY [facility] Last Admin: 11/05/16 18:37 Dose: Not Given Pantoprazole Sodium (Protonix Inj) 40 mg IVP Q12 [facility] Last Admin: 11/06/16 22:01 Dose: 40 mg Polyethylene Glycol (Miralax) 17 gm PO BID [facility] Last Admin: 11/06/16 16:55 Dose: Not Given Sevelamer HCl (Renagel) 800 mg PO TID [facility] Last Admin: 11/06/16 16:54 Dose: Not Given Sodium Phosphate (Fleet Enema) 135 ml RC BID PRN PRN Reason: Constipation Tamsulosin HCl (Flomax) 0.4 mg PO DAILY [facility] Last Admin: 11/05/16 18:36 Dose: Not Given Vitamin B Complex/Vit C/Folic Acid (Nephro-Jaylin) 1 tab PO DAILY [facility] Last Admin: 11/05/16 18:37 Dose: Not Given Ziprasidone (Geodon Inj) 5 mg IM Q6H PRN; Protocol PRN Reason: Agitation Last Admin: 11/05/16 22:30 Dose: 5 mg - Labs Labs: 11/07/16 05:30 11/07/16 05:30 PT 11.2 Seconds (9.9-11.8) 11/04/16 19:45 INR 1.04 (0.93-1.08) 11/04/16 19:45 APTT 25.4 Seconds (23.7-30.8) 11/07/16 05:50 - Constitutional Appears: Non-toxic, No Acute Distress - Head Exam Head Exam: NORMAL INSPECTION - ENT Exam ENT Exam: Mucous Membranes Moist - Neck Exam Neck Exam: absent: Meningismus - Respiratory Exam Respiratory Exam: Decreased Breath Sounds - Cardiovascular Exam Cardiovascular Exam: +S1, +S2 - GI/Abdominal Exam GI & Abdominal Exam: Soft. absent: Tenderness Assessment and Plan - Assessment and Plan (Free Text) Plan: Assessment Systemic Inflammatory Response Syndrome, consider due to NSTEMI, R/O sepsis from HCAP dementia history of sepsis from healthcare-associated pneumonia on top of non-ST elevation MS with acute congestive heart failure, clinically improved and S/P treatment history of GI bleeding ESRD on HD cornoary artery disease Cerebrovascular accident Gastric cancer Mitral valve prolapse Plan given a dose of IV Vancomycin, and will continue Doxycycline and change cefepime to Merrem (day 2); PCT is elevated but the patient is ESRD; blood cx are negative so far follow up further Cardiology plans will continue to monitor clinically
--- NOTE | 2016-11-07 15:29 | PN ---
DATE: 11/07/2016 SUBJECTIVE: The patient is sitting in a chair, comfortable. He has not had any further chest pain, nausea, vomiting, abdominal pain, rectal bleeding or melena. PHYSICAL EXAMINATION: VITAL SIGNS: Reveal temperature of 97.5, blood pressure 153/67, heart rate is 76. ABDOMEN: Soft and nontender. LABORATORY DATA: Revealed hemoglobin 12.3, BUN 42, creatinine 7.2, blood sugar 129. IMPRESSION: An 85-year-old male with end-stage renal disease, on hemodialysis, dementia, coronary artery disease, recurrent gastrointestinal bleed in the last 1 to 2 years, admitted to the hospital with Non-ST elevation myocardial infarction (NSTEMI) with elevated troponins. He has been treated medically given his multiple comorbidities. His hemoglobin has been stable. His heparin has been stopped. RECOMMENDATIONS: 1. The patient is to resume his aspirin and Plavix. Again, he is at high risk for recurrent GI bleed on these medications. He will need to be followed closely for GI bleeding. Alexi Hitchcock MD
--- NOTE | 2016-11-07 16:11 | RAD ---
HISTORY: FEVER/PNEUMONIA COMPARISON: 11/04/2016. TECHNIQUE: Chest PA and lateral FINDINGS: LUNGS: No active pulmonary disease. PLEURA: No significant pleural effusion identified. No pneumothorax apparent. CARDIOVASCULAR: No radiographic findings to suggest acute or significant cardiovascular disease. OSSEOUS STRUCTURES: No significant abnormalities. VISUALIZED UPPER ABDOMEN: Normal. OTHER FINDINGS: None. IMPRESSION: No active disease. No significant interval change compared to the prior examination(s).
--- NOTE | 2016-11-07 16:27 | PN ---
DATE: 11/07/2016 SUBJECTIVE: The patient remains lethargic, but without chest pain nor respiratory distress. OBJECTIVE: VITAL SIGNS: Blood pressure 153/67, heart rate in the 70s. NECK: Negative JVD. LUNGS: Without rales. HEART: S1 and S2. EXTREMITIES: Without change. LABORATORY DATA: Potassium 4.5. Troponin is 22.4. Hemoglobin is 12.3. IMPRESSION: 1. Status post non-ST elevation myocardial infarction. 2. Coronary artery disease. 3. Renal insufficiency. 4. Hypercholesterolemia. 5. Severe dementia. PLAN: Given these findings, the patient's NSTEMI is controlled well on medical therapy. We will continue his aspirin and Plavix as well as his beta-blockers. Jamin Dewey MD
--- NOTE | 2016-11-07 18:19 | PN ---
DATE: 11/07/2016 SUBJECTIVE: The patient is seen lying in the bed today in ICU. The patient is today alert, awake, oriented to person, place, disoriented to time, but today, the patient is much more awake. PHYSICAL EXAMINATION: VITAL SIGNS: T-max, the patient spiked fever of 102 degrees Fahrenheit. Telemetry shows normal sinus rhythm, heart rate is 70s, blood pressure 153/67, 133/61, 146/59, 135/40, respirations of 22 to 28, and O2 saturation is 95%. HEAD: Normocephalic and atraumatic. HEENT: Shows pinkish pale conjunctivae. Anicteric sclera. No oropharyngeal lesion. NECK: No neck rigidity. CHEST: Kyphosis. LUNGS: Shows occasional rhonchus bilaterally. CARDIOVASCULAR: S1 and S2. Regular rhythm. ABDOMEN: Soft and positive bowel sounds. GENITALIA: Female. RECTAL: Deferred. EXTREMITIES: Shows positive left upper extremity AV fistula, positive thrill. Motor strength is 5/5 in upper and lower extremities. MUSCULOSKELETAL: Shows a body mass index of 22.7. NEUROLOGIC: The patient is alert, awake, and oriented to person, place. DIAGNOSTIC DATA: 11/07, WBC of 8.4, hemoglobin and hematocrit of 12.3 and 37.4, and platelets of 153. PTT is 25.4. Sodium of 139, potassium of 4.5, chloride of 98, CO2 of 27, anion gap of 19, BUN of 42, creatinine of 7.2, GFR of 9, glucose of 129, 155, 140, 132. Calcium of 8.7, phosphorus of 4.3, and magnesium of 2.1. LFTs are normal. Troponin is down to 22.4 from 27.6. Procalcitonin level is 160.61. EKG shows left anterior hemiblock, sinus rhythm, right bundle-branch block, bifascicular block. IMPRESSION: 1. High-grade fever of 102 degrees Fahrenheit. 2. Hypertension. 3. Tachypnea. 4. Tachycardia. 5. Hypertension. 6. Leukocytosis with granulocytosis and bandemia. 7. Normocytic anemia. 8. Acute non-ST elevation myocardial infraction with elevated troponin. 9. End-stage renal disease, hemodialysis dependent. 10. Hypercalcitoninemia. 11. 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 12. Chronic microvascular ischemic disease of the brain. 13. Bifascicular block with right bundle-branch block, left anterior hemiblock, and anterolateral ST changes. 14. Fever. PLAN: At this time, 1. Consultation cardiology. 2. Gastroenterology. 3. Nephrology. 4. Neurology. 5. Infectious disease. CURRENT MEDICATIONS: Aricept 10 mg at bedtime, Cozaar 100 mg daily, doxycycline 100 mg IV q. 12, DuoNeb nebulizer q. 6 hours around the clock q. 2 h p.r.n., Ecotrin 81 mg daily, Flomax 0.4 mg daily, folic acid 1 mg daily, Geodon 5 mg IM q. 6 h p.r.n., Humalog low-dose sliding scale coverage a.c. and at bedtime, Imdur 120 mg daily, Linzess 145 mcg daily, Lipitor 40 mg daily, Lopressor 25 mg twice a day, meropenem 500 mg IV q. 12, MiraLax 17 g twice a day, Bystolic 5 mg daily, Plavix 75 mg daily, Protonix 40 mg IV q. 12, Reglan 5 mg IV q. 6, Renagel 800 mg 3 times a day, Tylenol 650 mg q. 6 hours p.r.n. for temperature greater than equal to 99.5. The patient had been ordered a repeat chest x-ray, repeat EKG, dysphagia, modified consistency diet, out of bed, physical therapy, occupational therapy. ADDENDUM TO IMPRESSION AND PLAN: Moderate oropharyngeal dysphagia with risk for aspiration (resolving). At this time, the patient will be continued on above therapeutic intervention with continuation of the medication. The patient is on Imdur 120, Linzess 125, Lipitor 40 daily, Lopressor 25 twice a day, meropenem 500 IV q. 12, MiraLax 17 g twice a day. At present, the patient will be ordered a chest x-ray. The patient's further management will be dependent upon the patient's clinical condition, hemodynamic status and as per patient's response to therapeutic intervention as per patient's diagnostic test results and as per recommendation by all the physician involved in the care of the patient. Time spent in the entire management more than 35 minutes. Zeyad Nazario MD [facility] # [id number]
[2016-11-07] MEDS: Latanoprost 2.5 ml Opht Soln OU SCH (22:01)
[2016-11-08] MEDS: Insulin Lispro (humaLOG) LOW Coverage SC SCH ×5 (00:48→22:33)
[2016-11-08] MEDS: Albuterol-Ipratrop 3 mg / 0.5 (3 ml) UD IH SCH ×4 (02:03→19:47)
--- NOTE | 2016-11-08 06:44 | CP.PCM.PN ---
Subjective - Date & Time of Evaluation Date of Evaluation: 11/08/16 Time of Evaluation: 06:44 - Subjective Subjective: Medicine Progress Note for Catalina Serrano PGY2 Patient seen and examined at bedside. There were no acute overnight events as per nursing. He is A&O x 3 today to person, place and time. He was resting comfortably. He denies having CP, SOB, n/v/d, numbness/tingling, constipation, fever or chills. Objective - Vital Signs/Intake and Output Vital Signs (last 24 hours): Temp Pulse Resp BP Pulse Ox 98.1 F 73 18 100/56 L 100 11/08/16 00:00 11/08/16 06:00 11/08/16 00:00 11/08/16 00:00 11/07/16 11:00 Intake and Output: 11/07/16 11/08/16 18:59 06:59 Intake Total 200 Balance 200 - Medications Medications: Current Medications Acetaminophen (Tylenol 325mg Tab) 650 mg PO Q6H PRN PRN Reason: TEMP>=99.5F Albuterol/Ipratropium (Duoneb 3 Mg/0.5 Mg (3 Ml) Ud) 3 ml IH [id number] [facility] Last Admin: 11/08/16 02:03 Dose: Not Given Albuterol/Ipratropium (Duoneb 3 Mg/0.5 Mg (3 Ml) Ud) 3 ml IH Q2H PRN PRN Reason: Shortness of Breath Aspirin (Ecotrin) 81 mg PO DAILY [facility] Last Admin: 11/07/16 09:15 Dose: 81 mg Atorvastatin Calcium (Lipitor) 40 mg PO DIN [facility] Last Admin: 11/07/16 17:48 Dose: 40 mg Clopidogrel Bisulfate (Plavix) 75 mg PO DAILY [facility] Last Admin: 11/07/16 09:14 Dose: 75 mg Donepezil HCl (Aricept) 10 mg PO HS [facility] Last Admin: 11/07/16 21:43 Dose: 10 mg Folic Acid (Folic Acid) 1 mg PO DAILY [facility] Last Admin: 11/07/16 09:15 Dose: 1 mg Doxycycline Hyclate 100 mg/ (Sodium Chloride) 100 mls @ 100 mls/hr IVPB Q12 FRANCISCO JAVIER PRN Reason: Protocol Last Admin: 08/13/17 21:46 Dose: 100 mls/hr Meropenem 500 mg/ Sodium (Chloride) 100 mls @ 100 mls/hr IVPB Q12 FRANCISCO JAVIER PRN Reason: Protocol Stop: 11/14/16 10:01 Last Admin: 11/07/16 21:46 Dose: 100 mls/hr Insulin Human Lispro (Humalog Low) 0 units SC ACHS FRANCISCO JAVIER PRN Reason: Protocol Last Admin: 11/08/16 00:48 Dose: Not Given Isosorbide Mononitrate (Imdur) 120 mg PO DAILY [facility] Last Admin: 11/07/16 09:41 Dose: 120 mg Latanoprost (Xalatan Opht) 0 ml OU HS [facility] Last Admin: 11/07/16 22:01 Dose: 2.5 ml Losartan Potassium (Cozaar) 100 mg PO DAILY [facility] Last Admin: 11/07/16 09:15 Dose: 100 mg Metoclopramide HCl (Reglan) 5 mg IVP Q6H [facility] Last Admin: 11/08/16 05:14 Dose: 5 mg Metoprolol Tartrate (Lopressor) 25 mg PO BID [facility] Last Admin: 11/07/16 17:48 Dose: Not Given Linaclotide [Linzess (] 145 Mcg (Home Med)) 145 mcg PO DAILY [facility] Last Admin: 11/07/16 09:20 Dose: Not Given Pantoprazole Sodium (Protonix Inj) 40 mg IVP Q12 [facility] Last Admin: 11/07/16 21:43 Dose: 40 mg Polyethylene Glycol (Miralax) 17 gm PO BID [facility] Last Admin: 11/07/16 17:47 Dose: 17 gm Sevelamer HCl (Renagel) 800 mg PO TID [facility] Last Admin: 11/07/16 17:47 Dose: 800 mg Sodium Phosphate (Fleet Enema) 135 ml RC BID PRN PRN Reason: Constipation Tamsulosin HCl (Flomax) 0.4 mg PO DAILY [facility] Last Admin: 11/07/16 09:15 Dose: 0.4 mg Vitamin B Complex/Vit C/Folic Acid (Nephro-Jaylin) 1 tab PO DAILY [facility] Last Admin: 11/07/16 09:15 Dose: 1 tab Ziprasidone (Geodon Inj) 5 mg IM Q6H PRN; Protocol PRN Reason: Agitation Last Admin: 11/05/16 22:30 Dose: 5 mg - Labs Labs: 08/13/17 05:30 11/07/16 05:30 PT 11.2 Seconds (9.9-11.8) 11/04/16 19:45 INR 1.04 (0.93-1.08) 11/04/16 19:45 APTT 25.4 Seconds (23.7-30.8) 11/07/16 05:50 - Constitutional Appears: No Acute Distress - Head Exam Head Exam: ATRAUMATIC, NORMAL INSPECTION, NORMOCEPHALIC - Eye Exam Eye Exam: Normal appearance, PERRL Pupil Exam: NORMAL ACCOMODATION, PERRL - ENT Exam ENT Exam: Mucous Membranes Moist - Respiratory Exam Respiratory Exam: Clear to Ausculation Bilateral, NORMAL BREATHING PATTERN. absent: Rales, Rhonchi, Wheezes - Cardiovascular Exam Cardiovascular Exam: REGULAR RHYTHM, +S1, +S2, Murmur. absent: Gallop, Rubs - GI/Abdominal Exam GI & Abdominal Exam: Soft, Normal Bowel Sounds. absent: Rigid, Tenderness, Mass , Rebound - Extremities Exam Extremities Exam: Normal Inspection. absent: Calf Tenderness, Pedal Edema - Neurological Exam Neurological Exam: Alert, Awake, CN II-XII Intact, Oriented x3 - Psychiatric Exam Psychiatric exam: Normal Affect, Normal Mood - Skin Skin Exam: Dry, Intact, Normal Color, Warm Assessment and Plan - Assessment and Plan (Free Text) Assessment: This is an 85Y Male with PMH CAD s/p stent, CVA, ESRD on HD ( MWF), CVA, dementia, DM, MVP, GI bleed, and gastric cancer admitted for NSTEMI, SIRS, AMS and fecal impaction. Plan: 1. NSTEMI - Troponin trending down - s/p Heparin drip - Not a cath candidate - Cardio consulted- recs appreciated - Continue ASA, Lipitor - GI consulted for GI bleed risk - As per Cardio, pt should be on ASA only 2. SIRS - improved - secondary to NSTEMI versus HCAP - CXR showed no active disease - afebrile, no leukocytosis - ID consulted-recs appreciated - Continue Merrem, Doxycycline 3. AMS- improved - Geodon prn agitation - Continue Aricept - Neuro consulted- recs appreciated 4. ESRD on HD - Continue HD MWF - Continue Renagel, Nephro-bite 5. DM - Continue ISS - BGM ACHS - Maintain euglycemia 6. HTN - Continue Lopressor, Cozaar 7. Constipation - Continue Linzess and Miralax - Enema prn 8. Hx of BPH - Continue Flomax GI ppx: PTX DVT ppx: SCDs, SAMAN stocking Dispo: Prognosis guarded. Will d/c to TCU once medically cleared and will follow up with Dr. Nazario (PMD) as outpatient as well as Dr. Dewey and Dr. Hitchcock. Case seen, discussed and reviewed with attending. Catalina Diane PGY2
--- NOTE | 2016-11-08 08:33 | PN ---
DATE: 11/07/2016 SUBJECTIVE: The patient is seen sitting in chair in the ICU. He has one-to-one observation at bedside. He is awake. He is alert. He is oriented x3 now. He recognizes me. He appears lethargic. PHYSICAL EXAMINATION: GENERAL: Elderly male, sitting in chair in the ICU. VITAL SIGNS: Blood pressure 153/67, heart rate 74, respiratory rate 28, temperature 97, T-max is 102. HEENT: Normocephalic, atraumatic, positive pallor. NECK: Supple, no JVD. LUNGS: Bilateral equal air entry, no rales *------*. CARDIAC: S1, S2, regular rate and rhythm. No murmur, no rub. ABDOMEN: Obese, distended, soft, nontender, bowel sounds present. EXTREMITIES: Lower extremity edema. INTAKE/OUTPUT: *------*. LABORATORY DATA: WBC 10.4, hemoglobin 12.3, hematocrit 37, platelets 153. Sodium 139, potassium 4.5, chloride 98, CO2 of 27, BUN 42, creatinine 7.2, glucose 129, calcium 8.7, phosphorus 4.2, magnesium 2.1. Troponin 22.4, albumin 3.8. Blood culture, no growth so far. CURRENT MEDICATIONS: Aricept, Cozaar 100 mg, doxycycline 100 mg q. 12, DuoNeb, aspirin, Flomax, folic acid, Geodon, insulin, Imdur, Linzess, Lipitor, Lopressor, meropenem 500 mg q. 12, MiraLax, Plavix, Protonix, Reglan, Renagel, and Tylenol. ASSESSMENT AND PLAN: 1. Acute coronary syndrome, *------* 2. Altered mental status. 3. Nausea, vomiting, fever, chills. 4. History of gastrointestinal bleed. 5. History of gastric cancer. 6. [id number] diabetes mellitus. 7. Hypertension. 8. End-stage renal disease. 9. Dementia. 10. Encephalopathy. 11. Transaminitis. PLAN: 1. Conservative management for his acute OR at this time. Antiplatelet agents, beta marco, statin as per cutter grind tool technician's recommendations. 2. Enteric antibiotics. 3. Close monitoring in the ICU. 4. Pureed bland diet because of oropharyngeal dysphagia. 5. Dialysis tomorrow. 6. The patient remains critically ill, prognosis is guarded. Case discussed with ICU staff, case discussed with ICU resident. More than 35 minutes spent in the care of this critically ill patient. Brinda Ibarra MD
[2016-11-08 11:06] LABS: HEMOGLOBIN 10.4 g/dL (14.0-18.0); MEAN CELL VOLUME 87.1 fl (80.0-105.0); MEAN CORPUSCULAR HEMOGLOBIN 29.1 pg (25.0-35.0); MEAN CORPUSCULAR HGB CONC 33.4 g/dl (31.0-37.0); MEAN PLATELET VOLUME 12.5 fl (7.0-11.0); RBC 3.57 10^6/uL (3.5-6.1); RED CELL DISTRIBUTION WIDTH 16.5 % (11.5-14.5); WHITE BLOOD COUNT 6.6 10^3/ul (4.5-11.0)
[2016-11-08 11:16] LABS: ALB/GLOB RATIO 1.1 (1.1-1.8); ALBUMIN 3.4 g/dL (3.0-4.8); CALCIUM 8.3 mg/dL (8.4-10.5)
--- NOTE | 2016-11-08 11:21 | CP.PCM.DIS ---
Provider - Provider Date of Admission: 11/05/16 02:24 Attending physician: Zeyad Nazario MD Primary care physician: Zeyad Nazario MD Consults: Cardio: Dr. Dewey GI: Dr. Hitchcock ID: Dr. Diego Nephro: Dr. Ibarra Neuro: Dr. Garcia Time Spent in preparation of Discharge (in minutes): 55 Hospital Course - Lab Results Lab Results: Micro Results 11/06/16 21:35 Blood Blood Culture - Preliminary NO GROWTH AFTER 24 HOURS 11/05/16 05:15 Naris MRSA Culture (Admit) - Final MRSA NOT DETECTED Most Recent Lab Values WBC 8.4 10^3/ul (4.5-11.0) 11/07/16 05:30 RBC 4.24 10^6/uL (3.5-6.1) 11/07/16 05:30 Hgb 12.3 g/dL (14.0-18.0) L 11/07/16 05:30 Hct 37.4 % (42.0-52.0) L 11/07/16 05:30 MCV 88.2 fl (80.0-105.0) 11/07/16 05:30 MCH 29.0 pg (25.0-35.0) 11/07/16 05:30 MCHC 32.9 g/dl (31.0-37.0) 11/07/16 05:30 RDW 16.8 % (11.5-14.5) H 11/07/16 05:30 Plt Count 153 10^3/uL (120.0-450.0) 11/07/16 05:30 MPV 13.0 fl (7.0-11.0) H 11/06/16 05:00 Gran % 72.0 % (50.0-68.0) H 11/06/16 05:00 Lymph % (Auto) 13.6 % (22.0-35.0) L 11/06/16 05:00 Calhoun % (Auto) 14.2 % (1.0-6.0) H 11/06/16 05:00 Eos % (Auto) 0.0 % (1.5-5.0) L 11/06/16 05:00 Baso % (Auto) 0.2 % (0.0-3.0) 11/06/16 05:00 Gran # 6.84 (1.4-6.5) H 11/06/16 05:00 Lymph # 1.3 (1.2-3.4) 11/06/16 05:00 Calhoun # 1.4 (0.1-0.6) H 11/06/16 05:00 Eos # 0.0 (0.0-0.7) 11/06/16 05:00 Baso # 0.02 K/mm3 (0.0-2.0) 11/06/16 05:00 Neutrophils % (Manual) 86 % (50.0-70.0) H 11/04/16 19:45 Band Neutrophils % 4 % (0-2) H 11/04/16 19:45 Lymphocytes % (Manual) 5 % (22.0-35.0) L 11/04/16 19:45 Monocytes % (Manual) 5 % (1.0-6.0) 11/04/16 19:45 Platelet Evaluation Normal (NORMAL) 11/04/16 19:45 PT 11.2 Seconds (9.9-11.8) 11/04/16 19:45 INR 1.04 (0.93-1.08) 11/04/16 19:45 APTT 25.4 Seconds (23.7-30.8) 11/07/16 05:50 Sodium 139 mmol/L (132-148) 11/07/16 05:30 Potassium 4.5 mmol/L (3.6-5.0) 11/07/16 05:30 Chloride 98 mmol/L (98-107) 11/07/16 05:30 Carbon Dioxide 27 mmol/L (21-33) 11/07/16 05:30 Anion Gap 19 (10-20) 11/07/16 05:30 BUN 42 mg/dL (7-21) H 11/07/16 05:30 Creatinine 7.2 mg/dL (0.5-1.4) H 11/07/16 05:30 Est GFR ( Amer) 9 11/07/16 05:30 Est GFR (Non-Af Amer) 7 11/07/16 05:30 POC Glucose (mg/dL) 144 mg/dL (65-110) H 11/08/16 09:39 Random Glucose 129 mg/dL (70-110) H 11/07/16 05:30 Hemoglobin A1c 5.4 % (4.2-6.5) 11/05/16 14:24 Calcium 8.7 mg/dL (8.4-10.5) 11/07/16 05:30 Phosphorus 4.3 mg/dL (2.5-4.5) 11/07/16 05:30 Magnesium 2.1 mg/dL (1.7-2.2) 11/07/16 05:30 Total Bilirubin 0.8 mg/dL (0.2-1.3) 11/07/16 05:30 AST 53 U/L (15-59) 11/07/16 05:30 ALT 29 U/L (7-56) 11/07/16 05:30 Alkaline Phosphatase 60 U/L (38-133) 11/07/16 05:30 Lactate Dehydrogenase 549 U/L (333-699) 11/05/16 03:25 Total Creatine Kinase 229 U/L (35-230) 11/07/16 05:30 CK-MB (CK-2) 15.0 ng/mL (0.0-3.6) H 11/06/16 09:10 CK-MB (CK-2) % 2.5 % (2.5-3.0) 11/06/16 09:10 Troponin I 22.40 ng/mL H* 11/07/16 05:30 Total Protein 7.5 g/dL (5.8-8.3) 11/07/16 05:30 Albumin 3.8 g/dL (3.0-4.8) 11/07/16 05:30 Globulin 3.6 gm/dL 11/07/16 05:30 Albumin/Globulin Ratio 1.1 (1.1-1.8) 11/07/16 05:30 Triglycerides 76 mg/dL (35-160) 11/05/16 14:00 Cholesterol 102 mg/dL (130-200) L 11/05/16 14:00 LDL Cholesterol Direct 45 mg/dL (0-129) 11/05/16 14:00 HDL Cholesterol 44 mg/dL (29-60) 11/05/16 14:00 Lipase 104 U/L (23-300) 11/05/16 00:15 Vitamin B12 583 pg/mL (239-931) 11/05/16 14:00 25-OH Vitamin D Total 78.9 NG/ML (30.0-100.0) 11/05/16 14:00 Folate 5.0 ng/mL 11/05/16 14:00 Procalcitonin 160.61 NG/ML (0.19-0.49) H 11/06/16 07:57 Free T4 2.39 ng/dL (0.78-2.19) H 11/05/16 14:00 Thyroxine (T4) 10.3 ug/dL (5.5-11.0) 11/05/16 14:00 TSH 3rd Generation 1.97 mIU/mL (0.46-4.68) 11/05/16 14:00 RPR Nonreactive (NONREACTIVE) 11/05/16 14:00 Blood Type B POSITIVE 11/05/16 14:25 Antibody Screen Negative 11/05/16 14:25 Crossmatch See Detail 11/05/16 14:25 BBK History Checked Patient has bt 11/05/16 14:25 - Hospital Course Hospital Course: This is an 85Y Male with PMH CAD s/p stent, CVA, ESRD on HD ( MWF), CVA, dementia, DM, MVP, GI bleed, and gastric cancer admitted for NSTEMI, SIRS, AMS and fecal impaction. Cardiology was consulted for NSTEMI. As per cardiology, patient is not a cardiac cath candidate. He was medically managed. Due to his high risk of GI bleed in the past on Plavix, pt will be d/c home with Aspirin 81mg only. GI was consulted due to patient high bleed risk. Patient remained stable throughout stay. As per GI, they will closely follow this patient as outpatient, no evidence of GI bleed at this time. Patient was noted to have SIRS secondary to pneumonia versus NSTEMI. CT of abdomen/pelvis showed possible lower lobe pneumoia v. atelectasis and fecal impaction. Laxatives were given. Pt now having regular BMs. ID was consulted. Patient was placed on antibiotics. His recent CXR was negative for any pneumonia or signs of infection. He remained afebrile without leukocytosis. Since pt is asymptomatic with no source of infection, he will be d/c without antibiotics. Nephrology was consulted for his ESRD. Patient continued his regular HD schedule. As for his AMS, neurology was consulted. Head CT was negative for acute abnormalities. It could be secondary to SIRS versus NSTEMI. Patient is now alert and oriented at his baseline. Patient will be discharged to TCU in AM. He will continue his medications as per MAY. He will follow up with Dr. Nazario (PMD), Dr. Dewey (Associate Chemist) and Dr. Ibarra (Flame Hardening Machine Operator) upon discharge. - Date & Time of H&P Date of H&P: 11/05/16 Time of H&P: 11:00 Discharge Exam - Head Exam Head Exam: ATRAUMATIC, NORMAL INSPECTION, NORMOCEPHALIC - Eye Exam Eye Exam: Normal appearance, PERRL Pupil Exam: NORMAL ACCOMODATION, PERRL - ENT Exam ENT Exam: Mucous Membranes Moist - Respiratory Exam Respiratory Exam: Clear to PA & Lateral, NORMAL BREATHING PATTERN, UNREMARKABLE. absent: Rhonchi, Wheezes - Cardiovascular Exam Cardiovascular Exam: REGULAR RHYTHM, +S1, +S2, Systolic Murmur. absent: Gallop , Rubs - GI/Abdominal Exam GI & Abdominal Exam: Normal Bowel Sounds, Soft, Unremarkable. absent: Mass, Rebound, Rigid, Tenderness - Extremities Exam Extremities exam: normal inspection - Neurological Exam Neurological exam: Alert, CN II-XII Intact, Oriented x3 - Psychiatric Exam Psychiatric exam: Normal Affect, Normal Mood - Skin Skin Exam: Dry, Intact, Normal Color, Warm Discharge Plan - Discharge Medications Prescriptions: Albuterol/Ipratropium [Duoneb 3 mg/0.5 mg (3 ml) UD] 3 ml IH [id number] #120 Isosorbide Mononitrate [Imdur] 120 mg PO DAILY #90 tab - Follow Up Plan Condition: FAIR Disposition: HOME/ ROUTINE Referrals: Zeyad Nazario MD [Primary Care Provider] -
[2016-11-08 11:32] LABS: TROPONIN I 11.2 ng/mL
[2016-11-08] MEDS: Meropenem 500 MG in Sodium Chloride 0.9% 100 ML IVPB SCH ×2 (12:00→22:30)
[2016-11-08] MEDS: POLYETHYLENE GLYCOL 3350 17 GM/Dose PACKET PO SCH ×2 (12:00→17:55)
--- NOTE | 2016-11-08 12:59 | PN ---
DATE: 11/08/2016 SUBJECTIVE: The patient had his heparin stopped yesterday. The patient has been asymptomatic since his non-STEMI on admission. PHYSICAL EXAMINATION VITAL SIGNS: Blood pressure 100/56, heart rate in the 70s. The rest of physical is changed. LABORATORY DATA: Hemoglobin is 12.3 yesterday. Chemistries: Glucose is 144 today. IMPRESSION 1. Status post Non-ST segment elevation myocardial infarction. 2. End-stage renal disease. 3. History of percutaneous transluminal coronary angioplasty and stent with a bare metal stent in April 2016. 4. Severe dementia. PLAN: Given these findings, the patient is being treated medically. He is currently on the appropriate medications. If he remains asymptomatic, no further cardiac workup is necessary and we will continue medical therapy. Jamin Dewey MD
--- NOTE | 2016-11-08 14:36 | PN ---
DATE: 11/08/2016 SUBJECTIVE: The patient is seen an examined. He is awake. He still appears somewhat lethargic and confused. He denies any pain. PHYSICAL EXAMINATION: GENERAL: Elderly lady, lying in bed in the dialysis unit. VITAL SIGNS: Blood pressure 100/56, heart rate 68, respiratory rate 18, temperature 98.1. HEENT: Normocephalic and atraumatic. NECK: Supple. No JVD. LUNGS: Bilateral equal air entry, no rales. CARDIAC: S1 and S2, regular rate and rhythm, no murmur, no rub. ABDOMEN: Distended, soft, nontender. Bowel sounds present. EXTREMITIES: No lower extremity edema. INTAKE AND OUTPUT: Not charted. LABORATORY DATA: WBC 6.6, hemoglobin 10.4, hematocrit 81, platelets 147. Sodium 136, potassium 3.9, chloride 97, CO2 of 25, BUN 57, creatinine 7.8, glucose 145, calcium 8.3, phosphorus 3.9, magnesium 2.0. Troponin 11.2, albumin 3.4, globulin 3.2. CURRENT MEDICATIONS: Aricept, Cozaar, doxycycline, Ecotrin, Flomax, folic acid, Geodon, insulin, Linzess, Lipitor, Lopressor, meropenem, MiraLax, Nephro-Jaylin, Protonix, Reglan, sevelamer, Tylenol. ASSESSMENT AND PLAN: 1. Acute myocardial infarction/non ST elevation myocardial infarction. 2. Altered mental status. 3. Sepsis. 4. Hypertension. 5. End-stage renal disease. 6. Dementia. PLAN: 1. Stable dialysis. 2. Continue antibiotics as per ID recommendations. 3. Continue beta marco, aspirin, statin as per cardiology recommendations. Brinda Ibarra MD
--- NOTE | 2016-11-08 15:57 | CARD ---
APPROVED REPORT EKG Measurement Heart [id number] <Conclusion> Normal sinus rhythm Right bundle branch block Left anterior fascicular block Bifascicular block T wave abnormality, consider lateral ischemia Abnormal ECG
[2016-11-08] MEDS: Multivitamin Vitamin B Complex (Nephro-Vite) Tab PO SCH (17:53)
--- NOTE | 2016-11-08 19:50 | PN ---
DATE: 11/08/2016 SUBJECTIVE: The patient is lying in bed. He was seen in dialysis. He is tolerating dialysis well. He denies any further abdominal pain, nausea, vomiting. He denies hematemesis or rectal bleeding. PHYSICAL EXAMINATION: VITAL SIGNS: Reveal temperature of 98.1, blood pressure 100/56, heart rate is 67. ABDOMEN: Soft and nontender. LABORATORY DATA: Reveal white blood cell count 6.6, hemoglobin 10.4. Chemistries reveal BUN 57, creatinine 7.8. Troponin is 11.2. IMPRESSION: An 85-year-old male with multiple comorbidities including end-stage renal disease on hemodialysis, coronary artery disease, history of recurrent gastrointestinal bleeding admitted to the hospital with vomiting, abdominal pain, chest pain, found to have positive troponins secondary to non-ST segment elevation myocardial infarction. He has improved clinically with medical management as per cardiology with heparin drip, aspirin and Plavix. His heparin has been stopped. He has not had any further nausea, vomiting, or abdominal pain. The patient was also noted to have a fecal impaction on CAT scan. The patient has been moving his bowels. RECOMMENDATIONS: Continue medical treatment with PPI and MiraLax. The patient is at high risk for recurrent bleeding with treatment with aspirin and Plavix. However, the patient needs this treatment for his coronary artery disease and recent NSTEMI. Alexi Hitchcock MD
[2016-11-08] MEDS: Latanoprost 2.5 ml Opht Soln OU SCH (22:33)
[2016-11-09] MEDS: Albuterol-Ipratrop 3 mg / 0.5 (3 ml) UD IH SCH ×2 (02:46→07:53)
[2016-11-09 06:45] LABS: HEMOGLOBIN 10.7 g/dL (14.0-18.0); MEAN CELL VOLUME 88.9 fl (80.0-105.0); MEAN CORPUSCULAR HEMOGLOBIN 28.3 pg (25.0-35.0); MEAN CORPUSCULAR HGB CONC 31.8 g/dl (31.0-37.0); MEAN PLATELET VOLUME 11.8 fl (7.0-11.0); RBC 3.78 10^6/uL (3.5-6.1); RED CELL DISTRIBUTION WIDTH 16.9 % (11.5-14.5); WHITE BLOOD COUNT 5.4 10^3/ul (4.5-11.0)
[2016-11-09 07:01] VITALS: TEMP 98.6; O2SAT 98
[2016-11-09 07:34] LABS: ALBUMIN 3.4 g/dL (3.0-4.8); CALCIUM 8.4 mg/dL (8.4-10.5)
[2016-11-09 07:49] LABS: TROPONIN I 9.2 ng/mL
--- NOTE | 2016-11-09 09:20 | CP.PCM.PN ---
Subjective - Date & Time of Evaluation Date of Evaluation: 11/09/16 Time of Evaluation: 07:40 - Subjective Subjective: Internal medicine progress note for Dr. Felipe Kendrick, PGY-1 Pt S & E at bedside. Pt is awake, alert, oriented x 3, doing well, no complaints overnight. Reports sleeping ok, eating ok. Has not been OOBTC. Denies N/V/F/C, SOB, CP, palpitations, constipation, diarrhea. Objective - Vital Signs/Intake and Output Vital Signs (last 24 hours): Temp Pulse Resp BP Pulse Ox 98.6 F 70 19 113/62 98 11/09/16 06:00 11/09/16 06:00 11/09/16 06:00 11/09/16 06:00 11/09/16 06:00 Intake and Output: 11/09/16 11/09/16 06:59 18:59 Intake Total 0 Output Total 0 Balance 0 - Medications Medications: Current Medications Acetaminophen (Tylenol 325mg Tab) 650 mg PO Q6H PRN PRN Reason: TEMP>=99.5F Albuterol/Ipratropium (Duoneb 3 Mg/0.5 Mg (3 Ml) Ud) 3 ml IH [id number] [facility] Last Admin: 11/09/16 07:53 Dose: Not Given Albuterol/Ipratropium (Duoneb 3 Mg/0.5 Mg (3 Ml) Ud) 3 ml IH Q2H PRN PRN Reason: Shortness of Breath Aspirin (Ecotrin) 81 mg PO DAILY [facility] Last Admin: 11/08/16 17:53 Dose: 81 mg Atorvastatin Calcium (Lipitor) 40 mg PO DIN [facility] Last Admin: 11/08/16 17:53 Dose: 40 mg Donepezil HCl (Aricept) 10 mg PO HS [facility] Last Admin: 11/08/16 22:32 Dose: 10 mg Folic Acid (Folic Acid) 1 mg PO DAILY [facility] Last Admin: 11/08/16 17:53 Dose: 1 mg Doxycycline Hyclate 100 mg/ (Sodium Chloride) 100 mls @ 100 mls/hr IVPB Q12 FRANCISCO JAVIER PRN Reason: Protocol Last Admin: 11/08/16 22:29 Dose: 100 mls/hr Meropenem 500 mg/ Sodium (Chloride) 100 mls @ 100 mls/hr IVPB Q12 FRANCISCO JAVIER PRN Reason: Protocol Stop: 11/14/16 10:01 Last Admin: 11/08/16 22:30 Dose: 100 mls/hr Insulin Human Lispro (Humalog Low) 0 units SC ACHS FRANCISCO JAVIER PRN Reason: Protocol Last Admin: 11/08/16 22:33 Dose: Not Given Isosorbide Mononitrate (Imdur) 120 mg PO DAILY [facility] Last Admin: 11/08/16 17:53 Dose: 120 mg Latanoprost (Xalatan Opht) 0 ml OU HS [facility] Last Admin: 11/08/16 22:33 Dose: 2.5 ml Losartan Potassium (Cozaar) 100 mg PO DAILY [facility] Last Admin: 11/08/16 17:54 Dose: 100 mg Metoclopramide HCl (Reglan) 5 mg IVP Q6H [facility] Last Admin: 11/08/16 17:52 Dose: 5 mg Metoprolol Tartrate (Lopressor) 25 mg PO BID [facility] Last Admin: 11/08/16 17:53 Dose: 25 mg Linaclotide [Linzess (] 145 Mcg (Home Med)) 145 mcg PO DAILY [facility] Last Admin: 11/08/16 17:55 Dose: Not Given Pantoprazole Sodium (Protonix Inj) 40 mg IVP Q12 [facility] Last Admin: 11/08/16 22:32 Dose: 40 mg Polyethylene Glycol (Miralax) 17 gm PO BID [facility] Last Admin: 11/08/16 17:55 Dose: Not Given Sevelamer HCl (Renagel) 800 mg PO TID [facility] Last Admin: 11/08/16 17:56 Dose: 800 mg Sodium Phosphate (Fleet Enema) 135 ml RC BID PRN PRN Reason: Constipation Tamsulosin HCl (Flomax) 0.4 mg PO DAILY [facility] Last Admin: 11/08/16 17:53 Dose: 0.4 mg Vitamin B Complex/Vit C/Folic Acid (Nephro-Jaylin) 1 tab PO DAILY [facility] Last Admin: 11/08/16 17:53 Dose: 1 tab Ziprasidone (Geodon Inj) 5 mg IM Q6H PRN; Protocol PRN Reason: Agitation Last Admin: 11/05/16 22:30 Dose: 5 mg - Labs Labs: 11/09/16 05:45 11/09/16 05:45 PT 11.2 Seconds (9.9-11.8) 11/04/16 19:45 INR 1.04 (0.93-1.08) 11/04/16 19:45 APTT 25.4 Seconds (23.7-30.8) 11/07/16 05:50 - Constitutional Appears: Non-toxic, No Acute Distress - Head Exam Head Exam: ATRAUMATIC, NORMAL INSPECTION, NORMOCEPHALIC - Eye Exam Eye Exam: EOMI, Normal appearance - ENT Exam ENT Exam: Mucous Membranes Moist, Normal Exam - Neck Exam Neck Exam: Normal Inspection - Respiratory Exam Respiratory Exam: Clear to Ausculation Bilateral, NORMAL BREATHING PATTERN - Cardiovascular Exam Cardiovascular Exam: REGULAR RHYTHM, +S1, +S2 - GI/Abdominal Exam GI & Abdominal Exam: Soft, Normal Bowel Sounds. absent: Tenderness - Extremities Exam Extremities Exam: Normal Inspection. absent: Pedal Edema - Neurological Exam Neurological Exam: Alert, Awake, CN II-XII Intact, Oriented x3 - Psychiatric Exam Psychiatric exam: Normal Affect, Normal Mood - Skin Skin Exam: Dry, Intact, Normal Color, Warm Assessment and Plan - Assessment and Plan (Free Text) Assessment: 85Y Male with PMH CAD s/p stent, CVA, ESRD on HD (MWF), CVA, dementia, DM, MVP, GI bleed, and gastric cancer admitted for NSTEMI, SIRS, AMS and fecal impaction, stable and ready for discharge to TCU for rehabilitation Plan: Discharge to TCU Continue all orders as per EMR PT/OT Please see previous discharge summary DW attending Mireille, PGY-1
[2016-11-09] MEDS: Insulin Lispro (humaLOG) LOW Coverage SC SCH ×2 (09:23→12:34)
[2016-11-09] MEDS: Meropenem 500 MG in Sodium Chloride 0.9% 100 ML IVPB SCH (09:27)
[2016-11-09] MEDS: Multivitamin Vitamin B Complex (Nephro-Vite) Tab PO SCH (09:27)
[2016-11-09] MEDS: POLYETHYLENE GLYCOL 3350 17 GM/Dose PACKET PO SCH (09:27)
--- NOTE | 2016-11-09 11:45 | DS ---
HISTORY OF PRESENT ILLNESS: The patient was seen in dialysis unit. Overnight nurses notes were reviewed. The patient was transferred out of the ICU yesterday to [facility], bed 2. The patient slept during the nurses round. PHYSICAL EXAMINATION: GENERAL: The patient is alert and oriented x2, person and place. VITAL SIGNS: T-max is 99.2 on 07/08/2016; telemetry shows normal sinus rhythm; blood pressure 118/70, 121/54, 109/52, 142/74; respirations 18; and O2 saturation is 99% to 100%. HEAD: Normocephalic and atraumatic. HEENT: Shows pinkish pale conjunctivae. No oropharyngeal lesion. Soft carotid bruit. CHEST: Kyphosis. LUNGS: Shows occasional rhonchi bilaterally. CARDIOVASCULAR: S1 and S2, regular rhythm. ABDOMEN: Soft, positive bowel sounds. GENITALIA: Male. RECTAL: Deferred. EXTREMITIES: Shows positive left upper extremity AV fistula, positive thrill. VASCULAR: Palpable pulses. MUSCULOSKELETAL: Body mass index is 22. GAIT: Not tested. NEUROLOGIC: The patient was alert, awake and oriented to person and place. DIAGNOSTIC DATA: On 11/07/2016; WBC of 8.4, hemoglobin and hematocrit of 12.3 and 37.4, and platelets of 153. Sodium of 136, potassium of 3.9, chloride of 97, CO2 of 25, anion gap of 18, BUN of 57, creatinine of 7.8, GFR of 8. Glucose on fingerstick 145, 144, 135, 138, 200; calcium of 8.3, phosphorus of 3.9, and magnesium of 2.0. LFTs are normal. Peak troponin is 27.6, down to 27.2, down to 22.4. Procalcitonin level is 160.61. RPR negative. Blood MRSA cultures negative. Chest x-ray from 11/07/2016 noted. EKG from 11/08/2016 with sinus rhythm, left anterior hemiblock, right bundle branch block, bifascicular block, and lateral ischemic changes. FINAL IMPRESSION, PLAN AND DISCHARGE DIAGNOSES: 1. Non ST-elevation myocardial infarction with elevated troponin. 2. Bifascicular block with right bundle branch block and left anterior hemiblock with lateral chronic ischemic changes. 3. History of gastrointestinal bleeding. 4. Gait dysfunction. 5. Deconditioning. 6. Status post uncontrolled hypertension. 7. Status post high-grade fever. 8. Leukocytosis with granulocytosis and bandemia. 9. Normocytic anemia. 10. End-stage renal disease, hemodialysis-dependent via the left upper extremity arteriovenous fistula. 11. Well controlled type 1 insulin-requiring diabetes mellitus with hemoglobin A1c of 5.4. 12. Hyperprolactinemia with elevated procalcitonin of greater than 160. 13. B positive blood type. 14. Acute coronary syndrome with acute non ST-elevation myocardial infarction and lateral chronic ischemia and bifascicular block with right bundle branch block and left anterior hemiblock. 15. Diabetic gastroparesis. 16. Mild to moderate oropharyngeal dysphagia with risk for aspiration, improving and resolving. 17. Systemic inflammatory response syndrome. 18. Possible sepsis with healthcare-associated pneumonia. 19. History of recurrent gastrointestinal bleeding. 20. Microvascular ischemic disease of the brain. 21. Small hiatal hernia. 22. Bibasilar pulmonary opacities and interstitial markings. 23. Calcified cholelithiasis with partially distended gallbladder. 24. Bilateral adrenal gland thickening. 25. Bilateral renal cyst. 26. Nonobstructive right inguinal hernia. 27. Fecal retention and fecal stasis in the descending colon and sigmoid with fecal bolus in the rectum. 28. Mild gallbladder wall thickening. 29. Prostatomegaly. 30. Degenerative joint disease of the spine. 31. Umbilical hernia. 32. Left inguinal hernia containing bladder. 33. Non-obstructing right inguinal hernia containing distal ileum. 34. Fecal impaction, retention, stasis. 35. Left anterior hemiblock, right bundle-branch block, bifascicular block with lateral coronary ischemic changes. 36. History of poor compliance. 37. Acute coronary syndrome. 38. Dementia. 39. Prostatic hypertrophy. 40. Constipation. 41. Gastroesophageal reflux. PLAN: At this time, the patient is presently referred for TCU evaluation and admission, the patient is to be continued on physical, occupational therapies, and speech therapy. The patient has been ordered out of bed to chair. CURRENT MEDICATIONS: Aricept 10 mg at bedtime, Cozaar 100 mg daily, doxycycline 100 mg IV q.12 hours, DuoNeb nebulizer every 6 hours round the clock q.12 hours p.r.n., Ecotrin 81 mg daily, Flomax 0.4 mg daily, folic acid 1 mg daily, Geodon 5 mg IM q.6 hours p.r.n, Humalog low dose sliding scale coverage before meals and at bedtime, Imdur has been increased to 120 mg, Linzess 145 mcg daily, Lipitor 40 mg daily, Lopressor 25 mg twice a day, meropenem 500 IV q.12 hours, MiraLAX 17 g twice a day, Nephro-Jaylin 1 tablet daily, Protonix 40 IV q.12 hours, Reglan 5 mg q.6 hours, Renagel 800 mg 3 times a day, and Tylenol p.r.n. The patient's Plavix is not on the MAR. The patient's Plavix was discontinued by Dr. Jamin Dewey. PLAN: At this time, if the patient is accepted to TCU, the patient will be discharged to TCU, otherwise, the patient will be discharged to home. The patient will be discharged on Aricept 10 mg at bedtime, Tessalon Perles 100 to 200 mg 3 times a day as needed, Bystolic 5 mg daily, Cozaar 100 mg daily, Flomax 0.4 mg daily, folic acid 1 mg daily, Imdur 120 mg daily and Levemir will be decreased to 5 units once a day rather than twice a day, Linzess 145 mcg daily, Lipitor 40 mg daily, Ecotrin 81 mg daily, Prilosec 40 mg daily, Reglan 5 mg as needed p.r.n., Renagel 800 mg 3 times a day, Travatan eyedrops, and vitamin D2 50,000 units weekly. As mentioned, the patient will be discharged home, if the patient is not accepted to TCU. If the patient is accepted to TCU, the patient will continue the medications as per updated ambulatory orders. During this hospitalization, the patient and the patient's have been extensively explained about the patient's condition, diagnoses, test results at length and all questions and concerns answered. The patient was again advised about strict compliance with diet and medication. The patient's has been explained about the patient's condition, diagnoses, treatment plan, management plan, and overall guarded to poor prognosis. The patient and the patient's has been extensively explained about strict compliance with diet, medications, and physician followup on a very close basis, which they acknowledged and understand. Zeyad Nazario MD [facility] # [id number]
[2016-11-09 12:57] VITALS: BP 96/60; PULSE 65; RESP 20
--- NOTE | 2016-11-09 15:59 | CP.PCM.PN ---
Subjective - Date & Time of Evaluation Date of Evaluation: 11/09/16 Time of Evaluation: 10:10 - Subjective Subjective: Comfortable in bed, no fevers, more awake and alert, no SOB at rest. Objective - Vital Signs/Intake and Output Vital Signs (last 24 hours): Temp Pulse Resp BP Pulse Ox 98.6 F 70 19 113/62 98 11/09/16 06:00 11/09/16 06:00 11/09/16 06:00 11/09/16 06:00 11/09/16 06:00 Intake and Output: 11/09/16 11/09/16 06:59 18:59 Intake Total 0 Output Total 0 Balance 0 - Medications Medications: Current Medications Acetaminophen (Tylenol 325mg Tab) 650 mg PO Q6H PRN PRN Reason: TEMP>=99.5F Albuterol/Ipratropium (Duoneb 3 Mg/0.5 Mg (3 Ml) Ud) 3 ml IH [id number] [facility] Last Admin: 11/09/16 07:53 Dose: Not Given Albuterol/Ipratropium (Duoneb 3 Mg/0.5 Mg (3 Ml) Ud) 3 ml IH Q2H PRN PRN Reason: Shortness of Breath Aspirin (Ecotrin) 81 mg PO DAILY [facility] Last Admin: 11/08/16 17:53 Dose: 81 mg Atorvastatin Calcium (Lipitor) 40 mg PO DIN [facility] Last Admin: 11/08/16 17:53 Dose: 40 mg Donepezil HCl (Aricept) 10 mg PO HS [facility] Last Admin: 11/08/16 22:32 Dose: 10 mg Folic Acid (Folic Acid) 1 mg PO DAILY [facility] Last Admin: 11/08/16 17:53 Dose: 1 mg Doxycycline Hyclate 100 mg/ (Sodium Chloride) 100 mls @ 100 mls/hr IVPB Q12 [facility]AVIER PRN Reason: Protocol Last Admin: 11/08/16 22:29 Dose: 100 mls/hr Meropenem 500 mg/ Sodium (Chloride) 100 mls @ 100 mls/hr IVPB Q12 FRANCISCO JAVIER PRN Reason: Protocol Stop: 11/14/16 10:01 Last Admin: 11/08/16 22:30 Dose: 100 mls/hr Insulin Human Lispro (Humalog Low) 0 units SC ACHS [facility] PRN Reason: Protocol Last Admin: 11/08/16 22:33 Dose: Not Given Isosorbide Mononitrate (Imdur) 120 mg PO DAILY [facility] Last Admin: 11/08/16 17:53 Dose: 120 mg Latanoprost (Xalatan Opht) 0 ml OU HS [facility] Last Admin: 11/08/16 22:33 Dose: 2.5 ml Losartan Potassium (Cozaar) 100 mg PO DAILY [facility] Last Admin: 11/08/16 17:54 Dose: 100 mg Metoclopramide HCl (Reglan) 5 mg IVP Q6H [facility] Last Admin: 11/08/16 17:52 Dose: 5 mg Metoprolol Tartrate (Lopressor) 25 mg PO BID [facility] Last Admin: 11/08/16 17:53 Dose: 25 mg Linaclotide [Linzess (] 145 Mcg (Home Med)) 145 mcg PO DAILY [facility] Last Admin: 11/08/16 17:55 Dose: Not Given Pantoprazole Sodium (Protonix Inj) 40 mg IVP Q12 [facility] Last Admin: 11/08/16 22:32 Dose: 40 mg Polyethylene Glycol (Miralax) 17 gm PO BID [facility] Last Admin: 11/08/16 17:55 Dose: Not Given Sevelamer HCl (Renagel) 800 mg PO TID [facility] Last Admin: 11/08/16 17:56 Dose: 800 mg Sodium Phosphate (Fleet Enema) 135 ml RC BID PRN PRN Reason: Constipation Tamsulosin HCl (Flomax) 0.4 mg PO DAILY [facility] Last Admin: 11/08/16 17:53 Dose: 0.4 mg Vitamin B Complex/Vit C/Folic Acid (Nephro-Jaylin) 1 tab PO DAILY [facility] Last Admin: 11/08/16 17:53 Dose: 1 tab Ziprasidone (Geodon Inj) 5 mg IM Q6H PRN; Protocol PRN Reason: Agitation Last Admin: 11/05/16 22:30 Dose: 5 mg - Labs Labs: 11/09/16 05:45 11/09/16 05:45 PT 11.2 Seconds (9.9-11.8) 11/04/16 19:45 INR 1.04 (0.93-1.08) 11/04/16 19:45 APTT 25.4 Seconds (23.7-30.8) 11/07/16 05:50 - Constitutional Appears: Non-toxic, No Acute Distress - Head Exam Head Exam: NORMAL INSPECTION - ENT Exam ENT Exam: Mucous Membranes Moist - Neck Exam Neck Exam: absent: Lymphadenopathy, Meningismus - Respiratory Exam Respiratory Exam: Decreased Breath Sounds - Cardiovascular Exam Cardiovascular Exam: +S1, +S2 - GI/Abdominal Exam GI & Abdominal Exam: Soft. absent: Tenderness Assessment and Plan - Assessment and Plan (Free Text) Plan: Assessment Systemic Inflammatory Response Syndrome, consider due to NSTEMI, R/O sepsis from HCAP dementia history of sepsis from healthcare-associated pneumonia on top of non-ST elevation [place] with acute congestive heart failure, clinically improved and S/P treatment history of GI bleeding ESRD on HD cornoary artery disease Cerebrovascular accident Gastric cancer Mitral valve prolapse Plan continue Doxycycline and Merrem (day 4); PCT is elevated but the patient is ESRD ; blood cx are negative so far follow up further Cardiology plans will continue to monitor clinically
--- NOTE | 2016-11-10 09:17 | DS ---
HISTORY OF PRESENT ILLNESS: The patient is going to be accepted to TCU. The patient will be transferred and discharge to TCU. The patient is seen in room #267, bed 2. Overnight nurse's notes were reviewed. The patient slept, now no agitation or behavioral disorders noted. PHYSICAL EXAMINATION: VITAL SIGNS: T-max, the patient is afebrile, telemetry sinus rhythm, heart rate is 69 to 70, blood pressure 113/62, respirations 18, and O2 saturation 98%. HEAD: Normocephalic and atraumatic. HEENT: Shows pinkish pale conjunctivae. Anicteric sclerae. No oropharyngeal lesion. NECK: No neck rigidity. CHEST: Kyphosis. LUNGS: Shows occasional rhonchi bilaterally. CARDIOVASCULAR: S1 and S2, regular rhythm. ABDOMEN: Soft, positive bowel sounds. GENITALIA: Male. RECTAL: Deferred. EXTREMITIES: Shows no pitting edema. No calf tenderness. No Homans sign. Positive left upper extremity AV fistula. Positive thrill. Motor strength is 5/5 in upper and lower extremity. MUSCULOSKELETAL: Body mass index is 22. NEUROLOGIC: Cranial nerves II through XII intact and limited. Gait examination is not tested. VASCULAR: Palpable pulses. DIAGNOSTIC DATA: 11/09, WBC 5.4, hemoglobin and hematocrit 10.7 and 30.4, platelets 149. Sodium 137, potassium 4.1, chloride 96, CO2 of 29, anion gap 16, BUN 29, creatinine 5.8, GFR is 11. Random glucose 106, [id number] glucose 123. LFTs are normal. Calcium 8.4, phosphorus 3.7, magnesium 2.0. Troponin is down to 9.2 from a peak troponin of 27.6. RPR is negative. Blood cultures also negative. FINAL IMPRESSION, PLAN AND DISCHARGE DIAGNOSES: 1. Acute non-ST elevation myocardial infarction and acute coronary syndrome. 2. Hypertension. 3. Dementia. 4. Leukocytosis with granulocytosis and bandemia. 5. Normocytic anemia. 6. End-stage renal disease, hemodialysis dependent. 7. Insulin requiring type 1 diabetes mellitus, well controlled with hemoglobin A1c of 5.4. 8. History of poor compliance. 9. Fecal impaction. 10. Fecal stasis. 11. Constipation. 12. Cholelithiasis. 13. Non-obstructed right inguinal hernia containing ileum. 14. Left inguinal hernia containing bladder. 15. Interstitial lung disease with bibasilar atelectasis. 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 17. Right bundle-branch block. 18. Bifascicular block. 19. End-stage renal disease, hemodialysis dependent, three times a week via the left upper extremity AV fistula. 20. Coronary artery disease with acute non-ST elevation myocardial infarction. 21. Systemic inflammatory response syndrome. 22. History of healthcare-associated pneumonia. 23. History of gastrointestinal bleeding. 24. Deconditioning. 25. Gait dysfunction. PLAN: The patient will be discharged to transfer care unit. CURRENT MEDICATIONS: Aricept 10 mg at bedtime, Cozaar 100 mg daily, doxycycline 100 mg IV q. 12 hours, DuoNeb nebulizer q. 6 hours and q 4 hours p.r.n., Ecotrin 81 mg daily, Flomax 0.4 mg daily, folic acid 1 mg daily, Geodon 5 mg IM q. 6 hours p.r.n., Humalog low dose sliding scale coverage a.c. and at bedtime, Imdur 120 mg daily, Linzess 145 mcg daily, Lipitor 40 mg daily, Lopressor 25 mg twice a day, meropenem 500 mg IV q. 12 hours, MiraLax 17 g twice a day, Nephro-Jaylin one tablet daily, Protonix 40 mg twice a day, Reglan 5 mg IV q. 6 hours, Renagel 800 mg three times a day, Tylenol 650 q. 6 hours p.r.n., and Xalatan eye drops. The patient has been ordered physical therapy, occupational therapy, and gait treatment. The patient was seen by the TCU. The patient accepted the TCU for rehab services. The patient will be continued on IV antibiotics. In TCU, the patient's consults which will be continued will be, cardiology, gastroenterology, nephrology, and infectious disease. Zeyad Nazario MD
== END 2016-11-09 13:42 | DRG 280 ==
LOC: ED 19:19 → ERH 11-05 02:24 → CCU 11-05 05:33 → 2RNO 11-07 15:19
PROVIDERS: ADMIT Internal Medicine; ATTEND Internal Medicine
PROC: 5A1D60Z (ICD-10-PCS; principal; 2016-11-05)
DX: I21.4 Non-ST elevation (NSTEMI) myocardial infarction (principal); N18.6 End stage renal disease; A41.9 Sepsis, unspecified organism; G93.40 Encephalopathy, unspecified; I13.2 Hypertensive heart and chronic kidney disease with heart failure and with stage 5 chronic kidney disease, or end stage renal disease; J84.9 Interstitial pulmonary disease, unspecified; J98.11 Atelectasis; I45.2 Bifascicular block; I50.9 Heart failure, unspecified; E11.43 Type 2 diabetes mellitus with diabetic autonomic (poly)neuropathy; K31.84 Gastroparesis; N28.1 Cyst of kidney, acquired; K56.41 Fecal impaction; K40.90 Unilateral inguinal hernia, without obstruction or gangrene, not specified as recurrent; K80.20 Calculus of gallbladder without cholecystitis without obstruction; I25.10 Atherosclerotic heart disease of native coronary artery without angina pectoris; R26.9 Unspecified abnormalities of gait and mobility; E11.51 Type 2 diabetes mellitus with diabetic peripheral angiopathy without gangrene; F01.50 Vascular dementia, unspecified severity, without behavioral disturbance, psychotic disturbance, mood disturbance, and anxiety; R13.12 Dysphagia, oropharyngeal phase; E78.00 Pure hypercholesterolemia, unspecified; Z79.82 Long term (current) use of aspirin; I34.1 Nonrheumatic mitral (valve) prolapse; K44.9 Diaphragmatic hernia without obstruction or gangrene; M47.9 Spondylosis, unspecified; K42.9 Umbilical hernia without obstruction or gangrene; K21.9 Gastro-esophageal reflux disease without esophagitis; N40.0 Benign prostatic hyperplasia without lower urinary tract symptoms; Z85.028 Personal history of other malignant neoplasm of stomach; Z95.5 Presence of coronary angioplasty implant and graft; Z99.2 Dependence on renal dialysis; Z79.4 Long term (current) use of insulin; Z87.891 Personal history of nicotine dependence

== ENCOUNTER 2016-11-09 13:45 | Inpatient (IN) | payer OTHER, BC ==
--- NOTE | 2016-11-09 15:13 | CP.PCM.HP ---
<Kenyetta Kendrick - Last Filed: 11/09/16 15:22> History of Present Illness - History of Present Illness History of Present Illness: Internal medicine H&P for Dr. Felipe Kendrick, PGY-1 Pt S & E at bedside. 85YO Male w/PMH sig for CAD s/p stent, CVA, ESRD on HD (MWF), CVA, dementia, DM, MVP, GI bleed, gastric cancer, recent NSTEMI, SIRS, AMS and fecal impaction admitted to TCU s/p hospitalization for previously stated recent health problems requiring re-conditioning and continued rehabilitation. During hospitalization, pt was seen/evaluated by cardiology, patient was determined not to be a cardiac cath candidate. He was medically managed for the NSTEMI. Due to his high risk of GI bleed in the past on Plavix, pt is to be continued on Aspirin 81mg daily only. GI also saw/evaluated pt 2/2 high bleed risk. Patient was stable throughout hospital stay. As per GI, they will continue to closely follow tt as outpatient, no evidence of GI bleed at this time. Pt was noted to have SIRS 2/2 pneumonia versus NSTEMI during hospital admission. CT of ab/pelvis had findings of possible lower lobe pneumonia vs. atelectasis and fecal impaction. Pt placed on bowel regimen, now moving bowels regularly. ID saw/evaluated pt with recommendations for antibiotics. Recent CXR was negative for any pneumonia or signs of infection. Pt has been afebrile w/o leukocytosis, no source of infection. Nephrology saw/evaluated pt 2/2 ESRD on HD with continuation of regular HD schedule. Neurology saw/evaluated pt for AMS , Head CT was neg for acute abnormalities, possible due to SIRS versus NSTEMI. Patient is now alert and oriented at his baseline. Pt is currently w/o complaints. Denies N/V/F/C, SOB, CP, palpitations, changes in mentation, moving bowels, tolerating diet. PMH: ESRD on HD (MWF), prior HCAP, CAD s/p stenting, GI bleeds, CVA, Gastric cancer, Mitral valve prolapse, DM, dementia, NSTEMI, hx fecal impaction PSH: AV fistula in L forearm All: NKDA SH: former smoker, denies EtOH or illicit drug use Present on Admission - Present on Admission Any Indicators Present on Admission: No History of DVT/PE: No History of Uncontrolled Diabetes: No Urinary Catheter: No Decubitus Ulcer Present: No Review of Systems - Review of Systems All systems: reviewed and no additional remarkable complaints except - Constitutional Constitutional: absent: Chills, Fever - EENT Eyes: absent: Change in Vision Ears: absent: Dizziness Nose/Mouth/Throat: absent: Sore Throat - Cardiovascular Cardiovascular: absent: Chest Pain, Palpitations - Respiratory Respiratory: absent: Cough - Gastrointestinal Gastrointestinal: absent: Abdominal Pain, Nausea, Vomiting - Genitourinary Genitourinary: absent: Change in Urinary Stream - Musculoskeletal Musculoskeletal: Muscle Weakness (chronic) - Integumentary Integumentary: absent: Changing Lesions - Neurological Neurological: absent: Dizziness, Headaches - Psychiatric Psychiatric: absent: Anxiety Past Patient History - Infectious Disease Hx of Infectious Diseases: None - Tetanus Immunizations Tetanus Immunization: Unknown - Past Medical History & Family History Past Medical History?: Yes - Past Social History Smoking Status: Former Smoker - CARDIAC Hx Cardiac Disorders: Yes - PULMONARY Hx Chronic Obstructive Pulmonary Disease (COPD): Yes - NEUROLOGICAL HX Cerebrovascular Accident: Yes - HEENT Hx HEENT Problems: Yes (WEARS RX GLASSES) Hx Epistaxis: Yes - RENAL Hx Renal Failure: Yes - ENDOCRINE/METABOLIC Hx Diabetes Mellitus Type 1: Yes - HEMATOLOGICAL/ONCOLOGICAL Hx Cancer: Yes (gastric) - INTEGUMENTARY Hx Dermatological Problems: No - MUSCULOSKELETAL/RHEUMATOLOGICAL Hx Musculoskeletal Disorders: Yes Hx Falls: Yes (past) - GASTROINTESTINAL Hx Gastroesophageal Reflux: Yes - GENITOURINARY/GYNECOLOGICAL Hx Genitourinary Disorders: Yes (pt voids) Hx Reproductive Disorders: Yes - PSYCHIATRIC Hx Psychophysiologic Disorder: No Hx Emotional Abuse: No Hx Substance Use: No - SURGICAL HISTORY Other/Comment: AV shunt placement. - ANESTHESIA Hx Anesthesia Reactions: No Hx Malignant Hyperthermia: No Meds Allergies/Adverse Reactions: Allergies Allergy/AdvReac Type Severity Reaction Status Date / Time No Known Allergies Allergy Verified 12/01/16 17:02 Physical Exam - Constitutional Appears: Non-toxic, No Acute Distress - Head Exam Head Exam: ATRAUMATIC, NORMAL INSPECTION, NORMOCEPHALIC - Eye Exam Eye Exam: EOMI, Normal appearance - ENT Exam ENT Exam: Mucous Membranes Moist, Normal Exam - Neck Exam Neck exam: Positive for: Normal Inspection - Respiratory Exam Respiratory Exam: Clear to Auscultation Bilateral, NORMAL BREATHING PATTERN - Cardiovascular Exam Cardiovascular Exam: REGULAR RHYTHM, +S1, +S2 - GI/Abdominal Exam GI & Abdominal Exam: Normal Bowel Sounds, Soft. absent: Tenderness - Extremities Exam Extremities exam: Positive for: normal inspection. Negative for: pedal edema - Neurological Exam Neurological exam: Alert, CN II-XII Intact, Oriented x3 - Psychiatric Exam Psychiatric exam: Normal Affect, Normal Mood - Skin Skin Exam: Dry, Intact, Normal Color, Warm Assessment & Plan - Assessment and Plan (Free Text) Assessment: 85YO Male w/PMH sig CAD s/p stent, CVA, ESRD on HD (MWF), CVA, dementia, DM, MVP, GI bleed, and gastric cancer with recent hospitalization for NSTEMI, SIRS, AMS and fecal impaction admitted to TCU for rehabilitation 2/2 deconditioning Plan: s/p NSTEMI medically managed ASA daily Lipitor No plavix 2/2 GIB risk Cardio following GI following Improved SIRS, likely 2/2 recent NSTEMI vs. HCAP Afebrile No leukocytosis ID following- will help managed Abx Monitor AMS- resolved Pt at baseline dementia Geodon PRN agitation Cont Aricept ESRD on HD Cont HD MWF Cont Renagel, Nephro-bite Nephro following DM Cont ISS Accuchecks Maintain euglycemia Diabetic diet HTN Cont Lopressor, Cozaar Monitor Constipation Bowel regimen- Linzess and Miralax Enema prn Hx of BPH Cont Flomax GI/DVT ppx SCDS TEDS PTX Dispo Admit to TCU VS as per protocol PT/OT DW attending Mireille, PGY-1 - Date & Time Date: 11/09/16 Time: 15:17 Decision To Admit - . Bed Request Type: TRCU Admitting Physician: Zeyad Nazario <Zeyad Nazario - Last Filed: 12/15/16 21:49> Results - Vital Signs Recent Vital Signs: Last Vital Signs Temp 98.3 F 11/17/16 10:25 Pulse 74 11/17/16 10:25 Resp 20 11/17/16 10:25 BP 150/80 11/17/16 10:25 Pulse Ox 95 11/17/16 10:25 - Labs Result Diagrams: 11/17/16 06:45 11/17/16 09:00 Attending/Attestation - Attestation I have personally seen and examined this patient.: Yes I have fully participated in the care of the patient.: Yes I have reviewed all pertinent clinical information: Yes
[2016-11-09 17:33] VITALS: BMI 21.6
[2016-11-09] MEDS ORDERED: Pneumococcal 23-Valent Vaccine IM ONE (17:33)
[2016-11-09] MEDS ORDERED: Meropenem 500 MG in Sodium Chloride 0.9% 100 ML IVPB SCH (18:00)
[2016-11-09] MEDS: POLYETHYLENE GLYCOL 3350 17 GM/Dose PACKET PO SCH (18:48)
--- NOTE | 2016-11-09 19:32 | PN ---
DATE: SUBJECTIVE: The patient is currently seeing TCU. He was transferred earlier today. The patient was admitted to acute care for any acute NSTEMI myocardial infarction. He appears to be stable. No chest pain. No complaints. MEDICATIONS: Medication list reviewed. The patient is on Aricept, Cozaar, DuoNeb, Ecotrin, Fleet's enema, Flomax, folic acid, insulin, Imdur, Lipitor, Lopressor, meropenem, MiraLax, Nephro-Jaylin, Protonix, Renagel, Tylenol p.r.n. and Xalatan eye ointment p.r.n. PHYSICAL EXAMINATION VITAL SIGNS: Blood pressure 106/56, temperature 98.1, respiratory rate 18 with a pulse of 61. HEENT: Shows him to be normocephalic and atraumatic. Conjunctivae are pink. Sclerae nonicteric. NECK: Supple. No neck vein distention. CHEST: Clear to auscultation and percussion. No rales. No rhonchi. No wheezing. CARDIOVASCULAR: Shows regular rate and rhythm without murmurs, rubs, or gallops. ABDOMEN: Soft. Bowel sounds normal. No rebound. No guarding. No masses. EXTREMITIES: No lower extremity edema, cyanosis, or clubbing. Positive left upper extremity AV fistula. LABORATORY DATA AND IMAGING: Labs from acute care; platelet count of 149,000 with a hemoglobin of 10.7. Chemistry, sodium 137, potassium 4.1, chloride 96 with a CO2 of 29. Glucose is 106 with a BUN of 29 and a creatinine of 5.8. Troponin level remains elevated at 9.2, but it is coming down. ASSESSMENT: 1. Status post acute myocardial infarction/non-ST elevation myocardial infarction. The patient is being followed by Cardiology. He has a history of arteriosclerotic heart disease, status post percutaneous transluminal coronary angioplasty with bare-metal stent placement earlier this year. 2. History of endstage renal disease. The patient is currently stable on Pnpugm-Fihqqjebo-Xdyrdy dialysis. He is scheduled for dialysis tomorrow. This will take place in the inpatient unit. 3. History of altered mental status and dementia. The patient will continue present medical therapy. 4. Possible sepsis. The patient will complete a course of antibiotic therapy. 5. History of hypertension. Blood pressure controlled on present medication. 6. History of secondary hyperparathyroidism. The patient will continue binder therapy and a renal diet. PLAN: 1. Hemodialysis [id number]-Ehrlhb. 2. Duration of antibiotics as per ID. 3. Continued followup by Cardiology in light of his acute [place]. 4. The patient to benefit from the rehabilitation therapy in the [facility]. William Erickson MD
[2016-11-09] MEDS: Insulin Lispro (humaLOG) LOW Coverage SC SCH ×2 (19:55→21:45)
[2016-11-09] MEDS: Albuterol-Ipratrop 3 mg / 0.5 (3 ml) UD IH SCH (20:21)
[2016-11-09] MEDS: Latanoprost 2.5 ml Opht Soln OU SCH (21:08)
[2016-11-10] MEDS: Albuterol-Ipratrop 3 mg / 0.5 (3 ml) UD IH SCH ×4 (02:12→21:48)
[2016-11-10] MEDS: Insulin Lispro (humaLOG) LOW Coverage SC SCH ×4 (06:39→21:31)
[2016-11-10] MEDS ORDERED: Meropenem 500 MG in Sodium Chloride 0.9% 100 ML IVPB SCH (09:30)
[2016-11-10] MEDS: POLYETHYLENE GLYCOL 3350 17 GM/Dose PACKET PO SCH ×2 (09:41→18:15)
[2016-11-10] MEDS: Multivitamin Vitamin B Complex (Nephro-Vite) Tab PO SCH (09:41)
--- NOTE | 2016-11-10 11:40 | PN ---
DATE: 11/10/2016 SUBJECTIVE: The patient is lying in bed comfortable. He denies any nausea, vomiting, hematemesis or melena. PHYSICAL EXAMINATION: VITAL SIGNS: Reveal a temperature of 98.1, blood pressure 161/89 and heart rate is 72. ABDOMEN: Soft and nontender. IMPRESSION: An 85-year-old male with multiple comorbidities including end-stage renal disease, on hemodialysis; coronary artery disease and dementia admitted to the hospital with non-ST segment elevation myocardial infarction. The patient has had recurrent gastrointestinal bleeds in the past. He is on high risk for gastrointestinal bleeding on aspirin and Plavix, however, the patient needs aspirin and Plavix in view of his coronary artery disease and recent non-ST segment elevation myocardial infarction. RECOMMENDATIONS: 1. Continue conservative treatment. 2. Follow periodic CBC. Alexi Hitchcock MD
[2016-11-10 14:58] LABS: ADD MANUAL DIFF? NO
[2016-11-10 15:01] LABS: BASO # 0.02 K/mm3 (0.0-2.0); BASO % 0.3 % (0.0-3.0); EOS # 0.2 (0.0-0.7); GRAN # 3.84 (1.4-6.5); GRAN % 55.3 % (50.0-68.0); HEMATOCRIT 35.1 % (42.0-52.0); LYMPH # 1.7 (1.2-3.4); LYMPH % 25.1 % (22.0-35.0); MEAN CELL VOLUME 87.1 fl (80.0-105.0); MEAN CORPUSCULAR HGB CONC 33.3 g/dl (31.0-37.0); MEAN PLATELET VOLUME 12.1 fl (7.0-11.0); MONO # 1.1 (0.1-0.6); MONO % 16.3 % (1.0-6.0); RED CELL DISTRIBUTION WIDTH 16.3 % (11.5-14.5); WHITE BLOOD COUNT 6.9 10^3/ul (4.5-11.0)
[2016-11-10 15:11] LABS: BILIRUBIN,TOTAL 0.4 mg/dL (0.2-1.3); CALCIUM 8.5 mg/dL (8.4-10.5); MAGNESIUM 2.1 mg/dL (1.7-2.2); PHOSPHOROUS 4.3 mg/dL (2.5-4.5); POTASSIUM 4.4 mmol/L (3.6-5.0); TOTAL PROTEIN 7.4 g/dL (5.8-8.3)
[2016-11-10 15:46] LABS: PLATELET COUNT 195 10^3/uL (120.0-450.0)
--- NOTE | 2016-11-10 17:31 | PN ---
DATE: 11/10/2016 SUBJECTIVE: The patient is seen sitting in bed. He is awake, he is alert, he is comfortable. He is hungry, he reports. He is only getting pureed food. He denies any chest pain, shortness of breath. PHYSICAL EXAMINATION: GENERAL: Elderly male, sitting in chair. VITAL SIGNS: Blood pressure 155/73, heart rate 74, respiratory rate 16, temperature 98. HEENT: Normocephalic, atraumatic. NECK: Supple, no JVD. LUNGS: Bilateral equal air entry, bilateral equal expansion. CARDIAC: S1 and S2, regular rate and rhythm, no murmur, no rub. ABDOMEN: Obese, distended, soft, nontender, bowel sounds present. EXTREMITIES: No lower extremity edema. INTAKE AND OUTPUT: Not charted. LABORATORY DATA: Sodium 132, potassium 4.4, chloride 95, CO2 24, BUN 43, creatinine 8.0, glucose 128, calcium 8.5, phosphorus 4.3, magnesium 2.1, albumin 3.7. CURRENT MEDICATIONS: Aricept, Cozaar, doxycycline, Ecotrin, Flomax, folic acid, insulin, Lipitor, Lopressor, meropenem 500 q. 24 hours, MiraLax, Nephro-Jaylin, Protonix, Renagel. ASSESSMENT: 1. Status post altered mental status, back to baseline. 2. Status post acute myocardial infarction/non-ST elevation myocardial infarction. 3. Hypertension. 4. End-stage renal disease. 5. Non-insulin dependent diabetes mellitus. 6. Dementia. PLAN: 1. Dialysis today. 2. Continue antihypertensives. 3. Continue fingerstick monitoring. 4. Complete antibiotics, discharge soon? Brinda Ibarra MD
--- NOTE | 2016-11-10 18:19 | CP.PCM.CON ---
History of Present Illness - History of Present Illness History of Present Illness: 85 year old male with PMH of healthcare associated pneumonia, ESRD on HD, coronary artery disease, Cerebrovascular accident, Gastric cancer, Mitral valve prolapse, DM, dementia was initially admitted in [facility] for lethargy and confusion. He was found to have elevated Troponins and possible HCAP. He clinically improved and is now transferred to [facility] for continued medical therapy and physical rehabilitation. Infectious diseases consult is requested to further evaluate and manage. Currently the patient is comfortable on a chair , not in distress, no fever or chills, awake and alert, no headache or dizziness , no chest pain, no SOB, no abdominal pain, no diarrhea, no dysuria. Review of Systems - Review of Systems All systems: reviewed and no additional remarkable complaints except (as per HPI ) Past Patient History - Infectious Disease Hx of Infectious Diseases: None - Tetanus Immunizations Tetanus Immunization: Unknown - Past Medical History & Family History Past Medical History?: Yes - Past Social History Smoking Status: Former Smoker - CARDIAC Hx Cardiac Disorders: Yes - PULMONARY Hx Chronic Obstructive Pulmonary Disease (COPD): Yes - NEUROLOGICAL HX Cerebrovascular Accident: Yes - HEENT Hx HEENT Problems: Yes (WEARS RX GLASSES) Hx Epistaxis: Yes - RENAL Hx Renal Failure: Yes - ENDOCRINE/METABOLIC Hx Diabetes Mellitus Type 1: Yes - HEMATOLOGICAL/ONCOLOGICAL Hx Cancer: Yes (gastric) - INTEGUMENTARY Hx Dermatological Problems: No - MUSCULOSKELETAL/RHEUMATOLOGICAL Hx Falls: Yes (past) - GASTROINTESTINAL Hx Gastrointestinal Disorders: Yes (CONSTIPATION,GERD,DIVERTICULITIS,GASTRIC CA, COLON POLYPS,FECAL IMPACTION.) - GENITOURINARY/GYNECOLOGICAL Hx Genitourinary Disorders: Yes (OLIGURIA,ESRD ON HD MWF) Hx Reproductive Disorders: Yes (BPH) - PSYCHIATRIC Hx Psychophysiologic Disorder: No Hx Emotional Abuse: No Hx Substance Use: No - SURGICAL HISTORY Other/Comment: AV shunt placement. - ANESTHESIA Hx Anesthesia Reactions: No Hx Malignant Hyperthermia: No Meds Allergies/Adverse Reactions: Allergies Allergy/AdvReac Type Severity Reaction Status Date / Time No Known Allergies Allergy Verified 11/09/16 15:06 - Medications Medications: Current Medications Acetaminophen (Tylenol 325mg Tab) 650 mg PO Q6H PRN; Protocol PRN Reason: TEMP>=99.5F Albuterol/Ipratropium (Duoneb 3 Mg/0.5 Mg (3 Ml) Ud) 3 ml IH [id number] FRANCISCO JAVIER PRN Reason: Protocol Last Admin: 11/09/16 20:21 Dose: Not Given Aspirin (Ecotrin) 81 mg PO 0800 FRANCISCO JAVIER PRN Reason: Protocol Atorvastatin Calcium (Lipitor) 40 mg PO DIN FRANCISCO JAVIER PRN Reason: Protocol Last Admin: 11/09/16 19:55 Dose: 40 mg Donepezil HCl (Aricept) 10 mg PO HS FRANCISCO JAVIER PRN Reason: Protocol Last Admin: 11/09/16 21:06 Dose: 10 mg Folic Acid (Folic Acid) 1 mg PO DAILY FRANCISCO JAVIER PRN Reason: Protocol Doxycycline Hyclate 100 mg/ (Sodium Chloride) 100 mls @ 100 mls/hr IVPB 0600, 1800 FRANCISCO JAVIER PRN Reason: Protocol Insulin Human Lispro (Humalog Low) 0 units SC ACHS FRANCISCO JAVIER PRN Reason: Protocol Last Admin: 11/09/16 21:45 Dose: Not Given Isosorbide Mononitrate (Imdur) 120 mg PO 0630 FRANCISCO JAVIER PRN Reason: Protocol Latanoprost (Xalatan Opht) 0 ml OU HS FRANCISCO JAVIER PRN Reason: Protocol Last Admin: 11/09/16 21:08 Dose: 2.5 ml Losartan Potassium (Cozaar) 100 mg PO DAILY FRANCISCO JAVIER PRN Reason: Protocol Metoprolol Tartrate (Lopressor) 25 mg PO 0800,1800 FRANCISCO JAVIER PRN Reason: Protocol Last Admin: 11/09/16 19:55 Dose: 25 mg Pantoprazole Sodium (Protonix Inj) 40 mg IVP 0600,1800 FRANCISCO JAVIER PRN Reason: Protocol Last Admin: 11/09/16 18:48 Dose: 40 mg Polyethylene Glycol (Miralax) 17 gm PO BID FRANCISCO JAVIER PRN Reason: Protocol Last Admin: 11/09/16 18:48 Dose: 17 gm Sevelamer HCl (Renagel) 800 mg PO 0730,1130,1800 FRANCISCO JAVIER PRN Reason: Protocol Last Admin: 11/09/16 18:51 Dose: 800 mg Sodium Phosphate (Fleet Enema) 135 ml RC BID PRN; Protocol PRN Reason: Constipation Tamsulosin HCl (Flomax) 0.4 mg PO 1830 FRANCISCO JAVIER PRN Reason: Protocol Last Admin: 11/09/16 18:55 Dose: 0.4 mg Vitamin B Complex/Vit C/Folic Acid (Nephro-Jaylin) 1 tab PO DAILY FRANCISCO JAVIER PRN Reason: Protocol Physical Exam - Constitutional Appears: Non-toxic, No Acute Distress - Head Exam Head Exam: NORMAL INSPECTION - ENT Exam ENT Exam: Mucous Membranes Moist - Neck Exam Neck exam: Negative for: Meningismus - Respiratory Exam Respiratory Exam: Decreased Breath Sounds - Cardiovascular Exam Cardiovascular Exam: +S1, +S2 - GI/Abdominal Exam GI & Abdominal Exam: Soft. absent: Tenderness Results - Vital Signs Recent Vital Signs: Last Vital Signs Temp 98.1 F 11/09/16 16:50 Pulse 62 11/09/16 19:55 Resp 18 11/09/16 16:50 BP 123/75 11/09/16 19:55 Pulse Ox 98 11/09/16 16:21 - Labs Result Diagrams: 11/10/16 14:35 11/10/16 14:35 Assessment & Plan - Assessment and Plan (Free Text) Plan: Assessment Systemic Inflammatory Response Syndrome, consider due to NSTEMI, R/O sepsis from HCAP dementia history of sepsis from healthcare-associated pneumonia on top of non-ST elevation [place] with acute congestive heart failure, clinically improved and S/P treatment history of GI bleeding ESRD on HD cornoary artery disease Cerebrovascular accident Gastric cancer Mitral valve prolapse Plan continue Doxycycline and Merrem (day 5); PCT is elevated but the patient is ESRD ; blood cx are negative so far; target 7 days of therapy follow up further Cardiology plans will continue to monitor clinically
--- NOTE | 2016-11-10 20:34 | CON ---
DATE: HISTORY OF PRESENT ILLNESS: This is an 85-year-old black male with past medical history of end-stage renal disease on dialysis 3 times a week, coronary artery disease, GI bleed, CVA, gastric cancer, mitral valve prolapse and diabetes and also has a history of dementia. He was transferred to *------* for rehab and the patient was confused and lethargic on the medical floor, now sitting comfortably, asked to evaluate the patient. CAT scan of the head was done which was reported to be negative and asked to evaluate the patient. PAST MEDICAL HISTORY: End-stage renal disease, coronary artery disease, CVA, gastric cancer, mitral valve prolapse, diabetes and dementia PAST SURGICAL HISTORY: AV fistula in left forearm. SOCIAL HISTORY: Ex-smoker. Does not drink. REVIEW OF SYSTEMS: A 10-point review of systems was negative except as noted above. PHYSICAL EXAMINATION: HEENT: Normocephalic, atraumatic NECK: Supple. NEUROLOGIC: Awake and oriented to self and place. Cranial nerve II through XII are tested. Pupils reactive. EOM intact. EXTREMITIES: Spontaneous movement of all the extremities noted, upper more than the lower. Deep tendon reflexes 1+. Both plantars are downgoing. Sensory appears intact. Cerebellar, gait deferred. IMPRESSION: Encephalopathy and multiple medical problems like end-stage renal disease, on dialysis. PLAN: Continue rehab. We will follow up. Gerald Garcia MD
[2016-11-10] MEDS: Latanoprost 2.5 ml Opht Soln OU SCH (21:32)
[2016-11-11] MEDS: Albuterol-Ipratrop 3 mg / 0.5 (3 ml) UD IH SCH ×4 (02:15→20:49)
[2016-11-11] MEDS: Pantoprazole 40mg/100ml IVPB 40 MG/100 ML BAG IVPB SCH ×2 (05:06→16:02)
[2016-11-11] MEDS: Meropenem 500 MG in Sodium Chloride 0.9% 100 ML IVPB SCH (05:40)
--- NOTE | 2016-11-11 06:45 | CP.PCM.PN ---
<Carlene Diane - Last Filed: 11/11/16 09:45> Subjective - Date & Time of Evaluation Date of Evaluation: 11/11/16 Time of Evaluation: 06:45 - Subjective Subjective: Medicine Progress Note for Catalina Serrano PGY2 Patient seen and examined at bedside. There were no acute overnight events as per nursing. He is A&O x 3 today to person, place and time. He was resting comfortably. He denies having CP, SOB, n/v/d, numbness/tingling, constipation, fever or chills. Objective - Vital Signs/Intake and Output Vital Signs (last 24 hours): Temp Pulse Resp BP Pulse Ox 98.0 F 68 16 140/84 98 11/10/16 11:54 11/10/16 18:14 11/10/16 11:54 11/10/16 18:14 11/09/16 16:21 - Medications Medications: Current Medications Acetaminophen (Tylenol 325mg Tab) 650 mg PO Q6H PRN; Protocol PRN Reason: TEMP>=99.5F Albuterol/Ipratropium (Duoneb 3 Mg/0.5 Mg (3 Ml) Ud) 3 ml IH [id number] FRANCISCO JAVIER PRN Reason: Protocol Last Admin: 11/11/16 02:15 Dose: Not Given Aspirin (Ecotrin) 81 mg PO 0800 FRANCISCO JAVIER PRN Reason: Protocol Last Admin: 11/10/16 08:07 Dose: 81 mg Atorvastatin Calcium (Lipitor) 40 mg PO DIN FRANCISCO JAVIER PRN Reason: Protocol Last Admin: 11/10/16 18:14 Dose: 40 mg Donepezil HCl (Aricept) 10 mg PO HS FRANCISCO JAVIER PRN Reason: Protocol Last Admin: 11/10/16 21:32 Dose: 10 mg Folic Acid (Folic Acid) 1 mg PO DAILY FRANCISCO JAVIER PRN Reason: Protocol Last Admin: 11/10/16 09:40 Dose: 1 mg Doxycycline Hyclate 100 mg/ (Sodium Chloride) 100 mls @ 100 mls/hr IVPB 0600, 1800 FRANCISCO JAVIER PRN Reason: Protocol Last Admin: 11/10/16 18:18 Dose: 100 mls/hr Meropenem 500 mg/ Sodium (Chloride) 100 mls @ 100 mls/hr IVPB 0600 FRANCISCO JAVIER PRN Reason: Protocol Stop: 11/16/16 06:01 Last Admin: 11/11/16 05:40 Dose: 100 mls/hr Pantoprazole Sodium (Protonix 40mg Ivpb) 40 mg in 100 mls @ 200 mls/hr IVPB 0600,1600 FRANCISCO JAVIER Last Admin: 11/11/16 05:06 Dose: 200 mls/hr Insulin Human Lispro (Humalog Low) 0 units SC ACHS FRANCISCO JAVIER PRN Reason: Protocol Last Admin: 11/10/16 21:31 Dose: Not Given Isosorbide Mononitrate (Imdur) 120 mg PO 0630 FRANCISCO JAVIER PRN Reason: Protocol Last Admin: 11/10/16 06:08 Dose: 120 mg Latanoprost (Xalatan Opht) 0 ml OU HS FRANCISCO JAVIER PRN Reason: Protocol Last Admin: 11/10/16 21:32 Dose: 2.5 ml Losartan Potassium (Cozaar) 100 mg PO DAILY FRANCISCO JAVIER PRN Reason: Protocol Last Admin: 11/10/16 09:39 Dose: 100 mg Metoprolol Tartrate (Lopressor) 25 mg PO 0800,1800 FRANCISCO JAVIER PRN Reason: Protocol Last Admin: 11/10/16 18:14 Dose: 25 mg Polyethylene Glycol (Miralax) 17 gm PO BID FRANCISCO JAVIER PRN Reason: Protocol Last Admin: 11/10/16 18:15 Dose: 17 gm Sevelamer HCl (Renagel) 800 mg PO 0730,1130,1800 FRANCISCO JAVIER PRN Reason: Protocol Last Admin: 11/10/16 18:17 Dose: 800 mg Sodium Phosphate (Fleet Enema) 135 ml RC BID PRN; Protocol PRN Reason: Constipation Tamsulosin HCl (Flomax) 0.4 mg PO 1830 FRANCISCO JAVIER PRN Reason: Protocol Last Admin: 11/10/16 18:13 Dose: 0.4 mg Vitamin B Complex/Vit C/Folic Acid (Nephro-Yannick) 1 tab PO DAILY FRANCISCO JAVIER PRN Reason: Protocol Last Admin: 11/10/16 09:41 Dose: 1 tab - Labs Labs: 11/10/16 14:35 11/10/16 14:35 - Constitutional Appears: No Acute Distress - Head Exam Head Exam: ATRAUMATIC, NORMAL INSPECTION, NORMOCEPHALIC - Eye Exam Eye Exam: Normal appearance, PERRL Pupil Exam: NORMAL ACCOMODATION, PERRL - ENT Exam ENT Exam: Mucous Membranes Moist - Neck Exam Neck Exam: Full ROM - Respiratory Exam Respiratory Exam: Clear to Ausculation Bilateral, NORMAL BREATHING PATTERN. absent: Rales, Rhonchi, Wheezes - Cardiovascular Exam Cardiovascular Exam: REGULAR RHYTHM, +S1, +S2, Murmur. absent: Gallop, Rubs - GI/Abdominal Exam GI & Abdominal Exam: Soft, Normal Bowel Sounds. absent: Rigid, Tenderness, Mass , Rebound - Extremities Exam Extremities Exam: Normal Inspection. absent: Calf Tenderness, Pedal Edema - Neurological Exam Neurological Exam: Alert, Awake, CN II-XII Intact, Oriented x3 - Psychiatric Exam Psychiatric exam: Normal Affect, Normal Mood - Skin Skin Exam: Dry, Intact, Normal Color, Warm Assessment and Plan - Assessment and Plan (Free Text) Assessment: This 85Y AA M with PMH CVA, ESRD on HD (MWF), dementia, CAD s/p stent, DM, MVP , GI bleed, gastric cancer who was admitted for NSTEMI, SIRS, AMS and fecal impaction which have resolved. Patient was transferred to TCU for further rehabilitation secondary to deconditioning. Plan: 1. SIRS- resolved (vital signs stable) - secondary to NSTEMI v. HCAP - CXR negative - Afebile, no luekocytosis - ID consulted- continue Doxy and Merrem 2. NSTEMI - medically managed - Cardio consulted - recs appreciated - Pt will be on ASA only due to high risk for bleed - Continue Lipitor 3. AMS- resolved - Hx of dementia - Neuro consulted- recs appreciated - Continue Aricept 4. ESRD on HD - Continue HD MWF - Continue Renagel, Nephro-yannick, Folic acid - Neprho consulted- recs appreciated 5. DM - Continue ISS - BGM ACHS - Maintain euglycemia 6. HTN - Continue Lopressor, Cozaar, Imdur 7. Hx of BPH - Continue Flomax GI ppx: PTX DVT ppx: SCDs, SAMAN stocking - pt high risk for GI bleed Dispo: Continue rehabilitation in TCU. Will be d/c home upon finishing rehab course. Case seen, discussed and reviewed with attending. Catalina Diane PGY2 <Zeyad Nazario U - Last Filed: 12/15/16 21:49> Objective - Vital Signs/Intake and Output Vital Signs (last 24 hours): Temp Pulse Resp BP Pulse Ox 98.3 F 74 20 150/80 95 11/17/16 10:25 11/17/16 10:25 11/17/16 10:25 11/17/16 10:25 11/17/16 10:25 - Labs Labs: 11/17/16 06:45 11/17/16 09:00 Attending/Attestation - Attestation I have personally seen and examined this patient.: Yes I have fully participated in the care of the patient.: Yes I have reviewed all pertinent clinical information, including history, physical exam and plan: Yes
[2016-11-11] MEDS: Insulin Lispro (humaLOG) LOW Coverage SC SCH ×4 (06:47→22:17)
--- NOTE | 2016-11-11 07:41 | HP ---
DATE: 11/10/2016 HISTORY OF PRESENT ILLNESS: The patient was discharged from acute care hospital site to transitional care unit for treatment and further management and physical therapy skills. The patient is seen in room 321, bed 1. The patient is out to bed to recliner. The patient is alert, awake, oriented x2 to 3. The patient's , Ms. Alma Ba is also present in the room. The patient's vital signs were reviewed. No fever spikes noted. HISTORY OF PRESENT ILLNESS: The patient is an 85-year-old hemodialysis dependent male presented to the emergency room, was bought to the emergency room by [facility] ambulance. According to the patient's , was found to have vomiting and has been having some difficulty with breathing and patient was not at his base line. The patient was found with nausea, vomiting and lethargy at home. While patient was evaluated in the emergency room, the patient was found to have abnormal EKG and elevated troponin. CODE STATUS: FULL CODE. LIVING WILL/ADVANCED DIRECTIVE: FULL CODE. ALLERGIES: NONE. HEIGHT: 5 feet 8 inches. WEIGHT: 149 pounds. BMI: 23. HOME MEDICATIONS: Aricept 10 daily, vitamin D 50,000 unit two weekly, Tessalon Perles 3 times a day p.r.n., Lipitor 40 mg daily, Ecotrin 81 mg daily, Reglan 5 mg as needed, Linzess 145 mcg daily, Imdur 60 mg daily, Levemir 5 units twice a day or once a day, folic acid 1 mg daily, Cozaar 100 mg daily, Suzanna-Jaylin 1 tablet daily, Flomax 0.4 mg daily, Travatan eye drops at bedtime to both eyes, Renagel 800 three times a day,omeprazole 20 mg once or twice a day,Bystolic 5 mg daily. SOCIAL HISTORY: Positive for former smoker, negative for alcohol, negative for drug use. FAMILY HISTORY: Not available. PAST MEDICAL AND SURGICAL HISTORY: History of cerebral infract; history of dementia; history of poor compliance and compliance; history of hypovitaminosis D; history of end-stage renal disease, hemodialysis dependence; history of dyslipidemia; questionable history of gastric carcinoma,status post gastrectomy; history of dyslipidemia; history of multiple non-ST elevation mycoardial infraction; history of coronary artery disease; history of diabetic gastroparesis; history of constipation;history of insulin requiring diabetes mellitus; history of hypertension; history of prostatic hypotrophy; history of coronary artery disease; history of mycoardial infraction; history of questionable peripheral vascular disease; history of angioplasty and stent placement; history of dyslipidemia, history of type 1 diabetes mellitus; history of diverticulitis; history of constipation; history of gastroesophageal reflux; history of end-stage renal disease, hemodialysis dependent; history of prostate hypotrophy; history of glaucoma; history of degenerative joint disease; history of cerebral vascular accident and transient ischemic infract; history of former smoker; history of chronic obstructive pulmonary disease; history of pneumonia; history of gastric carcinoma; history of left upper extremity AV fistula; history of gait dysfunction; history of bilateral cerebral dysfunction; history of gastritis; and history of hiatal hernia. 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 Past medical history is also significant for insulin requiring type 1 diabetes mellitus; history of concentric left ventricular hypertrophy; history of moderate pulmonary hypertension with right ventricular systolic pressure 40 mmHg; history of mild mitral regurgitation; mild tricuspid regurgitation; aortic sclerosis. Past medical history is also significant for chronic gastritis. The patient was seen and evaluated in the emergency room by . Patient was found to have abnormal EKG and abnormal troponin. 1. Nausea and vomiting, etiology undetermined. 2. Acute non-ST elevation mycoardial infraction with elevated troponin. 3. Questionable anterolateral coronary ischemia with ST depression in V1-V5. 4. Right bundle-branch block, left anterior hemiblock and bifascicular block. 5. Fever etiology, undetermined. 6. Questionable systemic inflammatory response syndrome. 7. Hiatal hernia. 8. Bibasilar opacities questionable interstitial marking versus pneumonia. 9. Chololithiasis. 10. Bilateral renal cyst. 11. Right inguinal nonobstructive hernia. 12. Fecal retention and stasis and constipation. 13. Bladder wall thickening. 14. Prostatomegaly. 15. Degenerative joint disease. 16. Left inguinal hernia containing bladder. 17. Nonobstructive right inguinal hernia containing distal ileum. 18. Encephalopathy with confusion. 19. Bifascicular block, right bundle-branch block and left anterior hemiblock. 20. Chronic ischemia. 21. History of poor compliance. 22. History of gastrointestinal bleeding. 23. Leukocytosis, granulocytosis and bandemia. 24. End-stage renal disease, hemodialysis dependent. 25. Acute non-ST elevation myocardial infarction with elevated troponin. 26. History of gastrointestinal bleeding. 27. History of dementia. 28. History of poor compliance. 29. Episodic nausea and vomiting, questionable diabetic gastroparesis. 1. Non ST-elevation myocardial infarction with elevated troponin. 2. Bifascicular block with right bundle branch block and left anterior hemiblock with lateral chronic ischemic changes. 3. History of gastrointestinal bleeding. 4. Gait dysfunction. 5. Deconditioning. 6. Status post uncontrolled hypertension. 7. Status post high-grade fever. 8. Leukocytosis with granulocytosis and bandemia. 9. Normocytic anemia. 10. End-stage renal disease, hemodialysis-dependent via the left upper extremity arteriovenous fistula. 11. Well controlled type 1 insulin-requiring diabetes mellitus with hemoglobin A1c of 5.4. 12. Hyperprolactinemia with elevated procalcitonin of greater than 160. 13. B positive blood type. 14. Acute coronary syndrome with acute non ST-elevation myocardial infarction and lateral chronic ischemia and bifascicular block with right bundle branch block and left anterior hemiblock. 15. Diabetic gastroparesis. 16. Mild to moderate oropharyngeal dysphagia with risk for aspiration, improving and resolving. 17. Systemic inflammatory response syndrome. 18. Possible sepsis with healthcare-associated pneumonia. 19. History of recurrent gastrointestinal bleeding. 20. Microvascular ischemic disease of the brain. 21. Small hiatal hernia. 22. Bibasilar pulmonary opacities and interstitial markings. 23. Calcified cholelithiasis with partially distended gallbladder. 24. Bilateral adrenal gland thickening. 25. Bilateral renal cyst. 26. Nonobstructive right inguinal hernia. 27. Fecal retention and fecal stasis in the descending colon and sigmoid with fecal bolus in the rectum. 28. Mild gallbladder wall thickening. 29. Prostatomegaly. 30. Degenerative joint disease of the spine. 31. Umbilical hernia. 32. Left inguinal hernia containing bladder. 33. Non-obstructing right inguinal hernia containing distal ileum. 34. Fecal impaction, retention, stasis. 35. Left anterior hemiblock, right bundle-branch block, bifascicular block with lateral coronary ischemic changes. 36. History of poor compliance. 37. Acute coronary syndrome. 38. Dementia. 39. Prostatic hypertrophy. 40. Constipation. 41. Gastroesophageal reflux. 1. Acute non-ST elevation myocardial infarction and acute coronary syndrome. 2. Hypertension. 3. Dementia. 4. Leukocytosis with granulocytosis and bandemia. 5. Normocytic anemia. 6. End-stage renal disease, hemodialysis dependent. 7. Insulin requiring type 1 diabetes mellitus, well controlled with hemoglobin A1c of 5.4. 8. History of poor compliance. 9. Fecal impaction. 10. Fecal stasis. 11. Constipation. 12. Cholelithiasis. 13. Non-obstructed right inguinal hernia containing ileum. 14. Left inguinal hernia containing bladder. 15. Interstitial lung disease with bibasilar atelectasis. 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 17. Right bundle-branch block. 18. Bifascicular block. 19. End-stage renal disease, hemodialysis dependent, three times a week via the left upper extremity AV fistula. 20. Coronary artery disease with acute non-ST elevation myocardial infarction. 21. Systemic inflammatory response syndrome. 22. History of healthcare-associated pneumonia. 23. History of gastrointestinal bleeding. 24. Deconditioning. 25. Gait dysfunction. 1. Non ST-elevation myocardial infarction with elevated troponin. 2. Bifascicular block with right bundle branch block and left anterior hemiblock with lateral chronic ischemic changes. 3. History of gastrointestinal bleeding. 4. Gait dysfunction. 5. Deconditioning. 6. Status post uncontrolled hypertension. 7. Status post high-grade fever. 8. Leukocytosis with granulocytosis and bandemia. 9. Normocytic anemia. 10. End-stage renal disease, hemodialysis-dependent via the left upper extremity arteriovenous fistula. 11. Well controlled type 1 insulin-requiring diabetes mellitus with hemoglobin A1c of 5.4. 12. Hyperprolactinemia with elevated procalcitonin of greater than 160. 13. B positive blood type. 14. Acute coronary syndrome with acute non ST-elevation myocardial infarction and lateral chronic ischemia and bifascicular block with right bundle branch block and left anterior hemiblock. 15. Diabetic gastroparesis. 16. Mild to moderate oropharyngeal dysphagia with risk for aspiration, improving and resolving. 17. Systemic inflammatory response syndrome. 18. Possible sepsis with healthcare-associated pneumonia. 19. History of recurrent gastrointestinal bleeding. 20. Microvascular ischemic disease of the brain. 21. Small hiatal hernia. 22. Bibasilar pulmonary opacities and interstitial markings. 23. Calcified cholelithiasis with partially distended gallbladder. 24. Bilateral adrenal gland thickening. 25. Bilateral renal cyst. 26. Nonobstructive right inguinal hernia. 27. Fecal retention and fecal stasis in the descending colon and sigmoid with fecal bolus in the rectum. 28. Mild gallbladder wall thickening. 29. Prostatomegaly. 30. Degenerative joint disease of the spine. 31. Umbilical hernia. 32. Left inguinal hernia containing bladder. 33. Non-obstructing right inguinal hernia containing distal ileum. 34. Fecal impaction, retention, stasis. 35. Left anterior hemiblock, right bundle-branch block, bifascicular block with lateral coronary ischemic changes. 36. History of poor compliance. 37. Acute coronary syndrome. 38. Dementia. 39. Prostatic hypertrophy. 40. Constipation. 41. Gastroesophageal reflux. 1. High-grade fever of 102 degrees Fahrenheit. 2. Hypertension. 3. Tachypnea. 4. Tachycardia. 5. Hypertension. 6. Leukocytosis with granulocytosis and bandemia. 7. Normocytic anemia. 8. Acute non-ST elevation myocardial infraction with elevated troponin. 9. End-stage renal disease, hemodialysis dependent. 10. Hypercalcitoninemia. 11. 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 12. Chronic microvascular ischemic disease of the brain. 13. Bifascicular block with right bundle-branch block, left anterior hemiblock, and anterolateral ST changes. 14. Fever. 1. Acute non-ST elevation mycoardial infraction with elevated CPK and elevated troponin with history of coronary artery disease. 2. Transient uncontrolled hypertension. 3. Encephalopathy. 4. Acute exacerbation of dementia. 5. Leukocytosis with granulocytosis and bandemia. 6. Normocytic anemia. 7. End-stage renal disease, hemodialysis dependent three times a week via the left upper extremity AV fistula. 8. Transaminitis. 9. 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 10. Bifascicular block with left anterior hemiblock, right bundle branch block. 11. Systemic inflammatory response syndrome. 12. Acute confusional state with history of dementia. 13. Moderate oropharyngeal dysphagia with risk for aspiration. 1. Nausea and vomiting, etiology undetermined. 2. Acute non-ST elevation mycoardial infraction with elevated troponin. 3. Questionable anterolateral coronary ischemia with ST depression in V1-V5. 4. Right bundle-branch block, left anterior hemiblock and bifascicular block. 5. Fever etiology, undetermined. 6. Questionable systemic inflammatory response syndrome. 7. Hiatal hernia. 8. Bibasilar opacities questionable interstitial marking versus pneumonia. 9. Chololithiasis. 10. Bilateral renal cyst. 11. Right inguinal nonobstructive hernia. 12. Fecal retention and stasis and constipation. 13. Bladder wall thickening. 14. Prostatomegaly. 15. Degenerative joint disease. 16. Left inguinal hernia containing bladder. 17. Nonobstructive right inguinal hernia containing distal ileum. 18. Encephalopathy with confusion. 19. Bifascicular block, right bundle-branch block and left anterior hemiblock. 20. Chronic ischemia. 21. History of poor compliance. 22. History of gastrointestinal bleeding. 23. Leukocytosis, granulocytosis and bandemia. 24. End-stage renal disease, hemodialysis dependent. 25. Acute non-ST elevation myocardial infarction with elevated troponin. 26. History of gastrointestinal bleeding. 27. History of dementia. 28. History of poor compliance. 29. Episodic nausea and vomiting, questionable diabetic gastroparesis. 30. Moderate oropharyngeal dysphagia with risk for aspiration (resolving). PHYSICAL EXAMINATION VITAL SIGNS: Heart rate has been in 70s and 80s, blood pressure systolic is in 120s and 130s, diastolic blood pressure in 70s and 80s, respirations 18 to 20 and O2 saturation is documented at 96% to 97%. The patient is seen sitting up in the recliner. HEAD: Normocephalic and atraumatic. EENT: Shows pinkish pale conjunctivae. Anicteric sclerae. No oropharyngeal lesion. Soft carotid bruits. CHEST: Kyphosis. LUNGS: Shows positive rhonchi bilaterally in the upper lung chaney. CARDIOVASCULAR: S1 and S2, regular rhythm. Questionable soft systolic murmur, right second intercostal space, left sternal border, left second intercostal space. ABDOMEN: Soft. Positive bowel sounds. GENITALIA: Male. RECTAL: Deferred. EXTREMITIES: Shows no pitting edema, no calf tenderness, no Homans sign. Positive left upper extremity AV fistula. Positive thrill. Lower extremity examination shows no pitting edema. No calf tenderness. No Homans sign. NEUROLOGIC: The patient is alert, awake, oriented x2 to 3. The patient is able to move upper and lower extremities without assistance. Gait examination not tested. LABORATORY DATA: Diagnostics ordered, but pending, will be reviewed later. IMPRESSION AND PLAN: 1. Deconditioning. 2. Gait dysfunction. 3. Encephalopathy. 4. Episodic confusional state. 5. End-stage renal disease, hemodialysis dependent, three days a week via the left upper extremity AV fistula. 6. Insulin-requiring very well controlled diabetes mellitus. 7. Dementia with acute exacerbation. 8. Poor compliance. 9. Acute non-ST elevation myocardial infarction with elevated troponin and electrocardiogram changes. 10. Bifascicular block with right bundle-branch block, left anterior hemiblock and lateral ischemic changes on the electrocardiogram. 11. Coronary artery disease. 12. History of angioplasty. 13. Dementia. 14. Secondary hyperparathyroidism. 15. Anemia. 16. Leukocytosis with granulocytosis and bandemia. 1. Acute non-ST elevation myocardial infarction and acute coronary syndrome. 2. Hypertension. 3. Dementia. 4. Leukocytosis with granulocytosis and bandemia. 5. Normocytic anemia. 6. End-stage renal disease, hemodialysis dependent. 7. Insulin requiring type 1 diabetes mellitus, well controlled with hemoglobin A1c of 5.4. 8. History of poor compliance. 9. Fecal impaction. 10. Fecal stasis. 11. Constipation. 12. Cholelithiasis. 13. Non-obstructed right inguinal hernia containing ileum. 14. Left inguinal hernia containing bladder. 15. Interstitial lung disease with bibasilar atelectasis. 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 17. Right bundle-branch block. 18. Bifascicular block. 19. End-stage renal disease, hemodialysis dependent, three times a week via the left upper extremity AV fistula. 20. Coronary artery disease with acute non-ST elevation myocardial infarction. 21. Systemic inflammatory response syndrome. 22. History of healthcare-associated pneumonia. 23. History of gastrointestinal bleeding. 24. Deconditioning. 25. Gait dysfunction. 1. Non ST-elevation myocardial infarction with elevated troponin. 2. Bifascicular block with right bundle branch block and left anterior hemiblock with lateral chronic ischemic changes. 3. History of gastrointestinal bleeding. 4. Gait dysfunction. 5. Deconditioning. 6. Status post uncontrolled hypertension. 7. Status post high-grade fever. 8. Leukocytosis with granulocytosis and bandemia. 9. Normocytic anemia. 10. End-stage renal disease, hemodialysis-dependent via the left upper extremity arteriovenous fistula. 11. Well controlled type 1 insulin-requiring diabetes mellitus with hemoglobin A1c of 5.4. 12. Hyperprolactinemia with elevated procalcitonin of greater than 160. 13. B positive blood type. 14. Acute coronary syndrome with acute non ST-elevation myocardial infarction and lateral chronic ischemia and bifascicular block with right bundle branch block and left anterior hemiblock. 15. Diabetic gastroparesis. 16. Mild to moderate oropharyngeal dysphagia with risk for aspiration, improving and resolving. 17. Systemic inflammatory response syndrome. 18. Possible sepsis with healthcare-associated pneumonia. 19. History of recurrent gastrointestinal bleeding. 20. Microvascular ischemic disease of the brain. 21. Small hiatal hernia. 22. Bibasilar pulmonary opacities and interstitial markings. 23. Calcified cholelithiasis with partially distended gallbladder. 24. Bilateral adrenal gland thickening. 25. Bilateral renal cyst. 26. Nonobstructive right inguinal hernia. 27. Fecal retention and fecal stasis in the descending colon and sigmoid with fecal bolus in the rectum. 28. Mild gallbladder wall thickening. 29. Prostatomegaly. 30. Degenerative joint disease of the spine. 31. Umbilical hernia. 32. Left inguinal hernia containing bladder. 33. Non-obstructing right inguinal hernia containing distal ileum. 34. Fecal impaction, retention, stasis. 35. Left anterior hemiblock, right bundle-branch block, bifascicular block with lateral coronary ischemic changes. 36. History of poor compliance. 37. Acute coronary syndrome. 38. Dementia. 39. Prostatic hypertrophy. 40. Constipation. 41. Gastroesophageal reflux. 1. High-grade fever of 102 degrees Fahrenheit. 2. Hypertension. 3. Tachypnea. 4. Tachycardia. 5. Hypertension. 6. Leukocytosis with granulocytosis and bandemia. 7. Normocytic anemia. 8. Acute non-ST elevation myocardial infraction with elevated troponin. 9. End-stage renal disease, hemodialysis dependent. 10. Hypercalcitoninemia. 11. 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 12. Chronic microvascular ischemic disease of the brain. 13. Bifascicular block with right bundle-branch block, left anterior hemiblock, and anterolateral ST changes. 14. Fever. 1. Acute non-ST elevation mycoardial infraction with elevated CPK and elevated troponin with history of coronary artery disease. 2. Transient uncontrolled hypertension. 3. Encephalopathy. 4. Acute exacerbation of dementia. 5. Leukocytosis with granulocytosis and bandemia. 6. Normocytic anemia. 7. End-stage renal disease, hemodialysis dependent three times a week via the left upper extremity AV fistula. 8. Transaminitis. 9. 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 10. Bifascicular block with left anterior hemiblock, right bundle branch block. 11. Systemic inflammatory response syndrome. 12. Acute confusional state with history of dementia. 13. Moderate oropharyngeal dysphagia with risk for aspiration. 1. Nausea and vomiting, etiology undetermined. 2. Acute non-ST elevation mycoardial infraction with elevated troponin. 3. Questionable anterolateral coronary ischemia with ST depression in V1-V5. 4. Right bundle-branch block, left anterior hemiblock and bifascicular block. 5. Fever etiology, undetermined. 6. Questionable systemic inflammatory response syndrome. 7. Hiatal hernia. 8. Bibasilar opacities questionable interstitial marking versus pneumonia. 9. Chololithiasis. 10. Bilateral renal cyst. 11. Right inguinal nonobstructive hernia. 12. Fecal retention and stasis and constipation. 13. Bladder wall thickening. 14. Prostatomegaly. 15. Degenerative joint disease. 16. Left inguinal hernia containing bladder. 17. Nonobstructive right inguinal hernia containing distal ileum. 18. Encephalopathy with confusion. 19. Bifascicular block, right bundle-branch block and left anterior hemiblock. 20. Chronic ischemia. 21. History of poor compliance. 22. History of gastrointestinal bleeding. 23. Leukocytosis, granulocytosis and bandemia. 24. End-stage renal disease, hemodialysis dependent. 25. Acute non-ST elevation myocardial infarction with elevated troponin. 26. History of gastrointestinal bleeding. 27. History of dementia. 28. History of poor compliance. 29. Episodic nausea and vomiting, questionable diabetic gastroparesis. 30. Moderate oropharyngeal dysphagia with risk for aspiration (resolving). PLAN: At this time, the patient is now being admitted to transitional care unit with continuation of the physical therapy, occupational therapy, out of bed, and ambulation. The patient will be reevaluated by speech and swallowing evaluation for further advancement of the patient's diet. The patient will be continued on the medication as per the MAR. With continuation of the consultation and subspecialty followup as per [facility] order and as per continuation of the acute skin care instructor. The patient's condition, diagnoses, treatment plan, management plan, overall [id number] prognosis, explained in detail with the patient's , Ms. Ba. The patient's has been advised on multiple previous occasions during the pervious hospitalization and during the office visit that the patient will require and will most likely benefit from and will require 24-hour care and supervision upon discharge. The patient's understands and acknowledges all above. All questions and concerns answered to their satisfaction. DICTATED AND ELECTRONICALLY SIGNED NOT READ. Zeyad Nazario MD MTDD
[2016-11-11] MEDS: POLYETHYLENE GLYCOL 3350 17 GM/Dose PACKET PO SCH ×2 (10:46→17:21)
[2016-11-11] MEDS: Multivitamin Vitamin B Complex (Nephro-Vite) Tab PO SCH (10:47)
--- NOTE | 2016-11-11 11:28 | PN ---
DATE: 11/11/2016 SUBJECTIVE: The patient is seen sitting in chair. He is awake, he is alert, he is comfortable. He just finished eating his breakfast. He does not appear to be in any kind of distress. PHYSICAL EXAMINATION: GENERAL: Elderly male, sitting in chair. VITAL SIGNS: Blood pressure 153/77, heart rate 66, respiratory rate 16, temperature 98. LUNGS: Bilateral equal air entry, no rales. EXTREMITIES: No lower extremity edema. LABORATORY DATA: Hemoglobin 11.7 yesterday; potassium 4.4, calcium 8.5, phosphorous 4.3, magnesium 2.1. CURRENT MEDICATIONS: List reviewed. ASSESSMENT: 1. Non-ST elevation myocardial infarction/acute coronary artery syndrome. 2. Non-insulin dependent diabetes mellitus. 3. Hypertension. 4. Dementia. 5. End-stage renal disease. 6. Anemia of chronic kidney disease. PLAN: 1. Continue current management. 2. Physical therapy. 3. Stable dialysis yesterday. Brinda Ibarra MD
--- NOTE | 2016-11-11 17:37 | CP.PCM.PN ---
Subjective - Date & Time of Evaluation Date of Evaluation: 11/11/16 Time of Evaluation: 11:45 - Subjective Subjective: Comfortable on a chair, not in distress, afebrile. Objective - Vital Signs/Intake and Output Vital Signs (last 24 hours): Temp Pulse Resp BP Pulse Ox 98.6 F 62 18 144/82 99 11/11/16 16:16 11/11/16 17:21 11/11/16 16:16 11/11/16 17:21 11/11/16 16:16 - Medications Medications: Current Medications Acetaminophen (Tylenol 325mg Tab) 650 mg PO Q6H PRN; Protocol PRN Reason: TEMP>=99.5F Albuterol/Ipratropium (Duoneb 3 Mg/0.5 Mg (3 Ml) Ud) 3 ml IH [id number] FRANCISCO JAVIER PRN Reason: Protocol Last Admin: 11/11/16 13:42 Dose: Not Given Aspirin (Ecotrin) 81 mg PO 0800 FRANCISCO JAVIER PRN Reason: Protocol Last Admin: 11/11/16 08:16 Dose: 81 mg Atorvastatin Calcium (Lipitor) 40 mg PO DIN FRANCISCO JAVIER PRN Reason: Protocol Last Admin: 11/11/16 17:20 Dose: 40 mg Donepezil HCl (Aricept) 10 mg PO HS FRANCISCO JAVIER PRN Reason: Protocol Last Admin: 11/10/16 21:32 Dose: 10 mg Folic Acid (Folic Acid) 1 mg PO DAILY FRANCISCO JAVIER PRN Reason: Protocol Last Admin: 11/11/16 10:46 Dose: 1 mg Doxycycline Hyclate 100 mg/ (Sodium Chloride) 100 mls @ 100 mls/hr IVPB 0600, 1800 FRANCISCO JAVIER PRN Reason: Protocol Last Admin: 11/11/16 17:23 Dose: 100 mls/hr Meropenem 500 mg/ Sodium (Chloride) 100 mls @ 100 mls/hr IVPB 0600 FRANCISCO JAVIER PRN Reason: Protocol Stop: 11/16/16 06:01 Last Admin: 11/11/16 05:40 Dose: 100 mls/hr Pantoprazole Sodium (Protonix 40mg Ivpb) 40 mg in 100 mls @ 200 mls/hr IVPB 0600,1600 FRANCISCO JAVIER Last Admin: 11/11/16 16:02 Dose: 200 mls/hr Insulin Human Lispro (Humalog Low) 0 units SC ACHS FRANCISCO JAVIER PRN Reason: Protocol Last Admin: 11/11/16 17:24 Dose: 1 units Isosorbide Mononitrate (Imdur) 120 mg PO 0630 FRANCISCO JAVIER PRN Reason: Protocol Last Admin: 11/11/16 06:47 Dose: 120 mg Latanoprost (Xalatan Opht) 0 ml OU HS FRANCISCO JAVIER PRN Reason: Protocol Last Admin: 11/10/16 21:32 Dose: 2.5 ml Losartan Potassium (Cozaar) 100 mg PO DAILY FRANCISCO JAVIER PRN Reason: Protocol Last Admin: 11/11/16 10:46 Dose: 100 mg Metoprolol Tartrate (Lopressor) 25 mg PO 0800,1800 FRANCISCO JAVIER PRN Reason: Protocol Last Admin: 11/11/16 17:21 Dose: 25 mg Polyethylene Glycol (Miralax) 17 gm PO BID FRANCISCO JAVIER PRN Reason: Protocol Last Admin: 11/11/16 17:21 Dose: Not Given Sevelamer HCl (Renagel) 800 mg PO 0730,1130,1800 FRANCISCO JAVIER PRN Reason: Protocol Last Admin: 11/11/16 17:22 Dose: 800 mg Tamsulosin HCl (Flomax) 0.4 mg PO 1830 FRANCISCO JAVIER PRN Reason: Protocol Last Admin: 11/10/16 18:13 Dose: 0.4 mg Vitamin B Complex/Vit C/Folic Acid (Nephro-Jaylin) 1 tab PO DAILY FRANCISCO JAVIER PRN Reason: Protocol Last Admin: 11/11/16 10:47 Dose: 1 tab - Labs Labs: 11/10/16 14:35 11/10/16 14:35 - Constitutional Appears: Non-toxic, No Acute Distress - Head Exam Head Exam: NORMAL INSPECTION - ENT Exam ENT Exam: Mucous Membranes Moist - Neck Exam Neck Exam: absent: Lymphadenopathy, Meningismus - Respiratory Exam Respiratory Exam: Decreased Breath Sounds - Cardiovascular Exam Cardiovascular Exam: +S1, +S2 - GI/Abdominal Exam GI & Abdominal Exam: Soft. absent: Tenderness Assessment and Plan - Assessment and Plan (Free Text) Plan: Assessment Systemic Inflammatory Response Syndrome, consider due to NSTEMI, R/O sepsis from HCAP dementia history of sepsis from healthcare-associated pneumonia on top of non-ST elevation MD with acute congestive heart failure, clinically improved and S/P treatment history of GI bleeding ESRD on HD cornoary artery disease Cerebrovascular accident Gastric cancer Mitral valve prolapse Plan continue Doxycycline and Merrem (day 6); PCT is elevated but the patient is ESRD ; blood cx are negative so far; target 7 days of therapy follow up further Cardiology plans will continue to follow clinically
[2016-11-11] MEDS: Latanoprost 2.5 ml Opht Soln OU SCH (22:16)
--- NOTE | 2016-11-12 00:25 | PN ---
DATE: 11/11/2016 Patient is seen in room 321, bed 1. SUBJECTIVE: Patient is in the process of doing physical therapy with the therapist. Patient is sitting up in the recliner. Patient is alert, awake, oriented to person, place, my name and his name. Patient is able to follow commands. Patient is able to stand up without assistance with holding my hand. Patient appears to be comfortable, not agitated. Patient's overnight notes were reviewed. PHYSICAL EXAMINATION VITAL SIGNS: T max afebrile, heart rate 74-78-82, respiration 18-20, blood pressure 130-140 systolic, diastolic in 80s and low 90s. HEAD: Patient's head examination is normocephalic and atraumatic. HEENT: Shows pinkish conjunctivae, anicteric sclerae, no oropharyngeal lesion. NECK: No neck rigidity, soft carotid bruit. CHEST: Kyphosis. LUNGS: Shows no rales, crackles or wheezing. Occasional rhonchi noted at the bases and upper lung chaney. CARDIOVASCULAR: S1 and S2, regular rhythm. Questionable soft systolic murmur, right second intercostal space, left sternal border. ABDOMEN: Soft, positive bowel sounds. GENITALIA: Male. RECTAL: Deferred. EXTREMITIES: Shows positive left upper extremity AV fistula. Positive thrill. Gait examination as mentioned above. Patient was able to stand up from the recliner with holding my hand and minimal assistance. Patient is able to ambulate with walker as per the physical therapist. NEUROLOGICAL: Patient is alert, awake, responsive, oriented to person and place. LABORATORY DATA: The patient's CBC, CMP, LFTs from 11/10 reviewed. Hemoglobin is stable around 11 grams plus. Chemistries shows elevated BUN and creatinine in a end-stage renal disease hemodialysis dependent patient. IMPRESSION AND PLAN: 1. Gait dysfunction. 2. Deconditioning. 3. Acute non-ST elevation myocardial infarction with elevated troponin. 4. Acute toxic metabolic encephalopathy and altered mental status and transient confusion with behavioral disturbances. 5. Normocytic anemia. 6. Leukocytosis. 7. Type 1 insulin requiring diabetes mellitus well controlled. 8. History of coronary artery disease, non ST elevation myocardial infarction, angioplasty and stent placement. 9. End-stage renal disease, hemodialysis dependent via the left upper extremity AV fistula 3 times a week. 10. History of dementia. 11. Constipation. 12. Fecal retention, fecal stasis. 13. History of dyslipidemia. 14. History of secondary hyperparathyroidism. 15. History of poor compliance. 16. History of gastric carcinoma. 17. History of recurrent gastrointestinal bleeding. 1. Deconditioning. 2. Gait dysfunction. 3. Encephalopathy. 4. Episodic confusional state. 5. End-stage renal disease, hemodialysis dependent, three days a week via the left upper extremity AV fistula. 6. Insulin-requiring very well controlled diabetes mellitus. 7. Dementia with acute exacerbation. 8. Poor compliance. 9. Acute non-ST elevation myocardial infarction with elevated troponin and electrocardiogram changes. 10. Bifascicular block with right bundle-branch block, left anterior hemiblock and lateral ischemic changes on the electrocardiogram. 11. Coronary artery disease. 12. History of angioplasty. 13. Dementia. 14. Secondary hyperparathyroidism. 15. Anemia. 16. Leukocytosis with granulocytosis and bandemia. 1. Acute non-ST elevation myocardial infarction and acute coronary syndrome. 2. Hypertension. 3. Dementia. 4. Leukocytosis with granulocytosis and bandemia. 5. Normocytic anemia. 6. End-stage renal disease, hemodialysis dependent. 7. Insulin requiring type 1 diabetes mellitus, well controlled with hemoglobin A1c of 5.4. 8. History of poor compliance. 9. Fecal impaction. 10. Fecal stasis. 11. Constipation. 12. Cholelithiasis. 13. Non-obstructed right inguinal hernia containing ileum. 14. Left inguinal hernia containing bladder. 15. Interstitial lung disease with bibasilar atelectasis. 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 17. Right bundle-branch block. 18. Bifascicular block. 19. End-stage renal disease, hemodialysis dependent, three times a week via the left upper extremity AV fistula. 20. Coronary artery disease with acute non-ST elevation myocardial infarction. 21. Systemic inflammatory response syndrome. 22. History of healthcare-associated pneumonia. 23. History of gastrointestinal bleeding. 24. Deconditioning. 25. Gait dysfunction. 1. Non ST-elevation myocardial infarction with elevated troponin. 2. Bifascicular block with right bundle branch block and left anterior hemiblock with lateral chronic ischemic changes. 3. History of gastrointestinal bleeding. 4. Gait dysfunction. 5. Deconditioning. 6. Status post uncontrolled hypertension. 7. Status post high-grade fever. 8. Leukocytosis with granulocytosis and bandemia. 9. Normocytic anemia. 10. End-stage renal disease, hemodialysis-dependent via the left upper extremity arteriovenous fistula. 11. Well controlled type 1 insulin-requiring diabetes mellitus with hemoglobin A1c of 5.4. 12. Hyperprolactinemia with elevated procalcitonin of greater than 160. 13. B positive blood type. 14. Acute coronary syndrome with acute non ST-elevation myocardial infarction and lateral chronic ischemia and bifascicular block with right bundle branch block and left anterior hemiblock. 15. Diabetic gastroparesis. 16. Mild to moderate oropharyngeal dysphagia with risk for aspiration, improving and resolving. 17. Systemic inflammatory response syndrome. 18. Possible sepsis with healthcare-associated pneumonia. 19. History of recurrent gastrointestinal bleeding. 20. Microvascular ischemic disease of the brain. 21. Small hiatal hernia. 22. Bibasilar pulmonary opacities and interstitial markings. 23. Calcified cholelithiasis with partially distended gallbladder. 24. Bilateral adrenal gland thickening. 25. Bilateral renal cyst. 26. Nonobstructive right inguinal hernia. 27. Fecal retention and fecal stasis in the descending colon and sigmoid with fecal bolus in the rectum. 28. Mild gallbladder wall thickening. 29. Prostatomegaly. 30. Degenerative joint disease of the spine. 31. Umbilical hernia. 32. Left inguinal hernia containing bladder. 33. Non-obstructing right inguinal hernia containing distal ileum. 34. Fecal impaction, retention, stasis. 35. Left anterior hemiblock, right bundle-branch block, bifascicular block with lateral coronary ischemic changes. 36. History of poor compliance. 37. Acute coronary syndrome. 38. Dementia. 39. Prostatic hypertrophy. 40. Constipation. 41. Gastroesophageal reflux. 1. High-grade fever of 102 degrees Fahrenheit. 2. Hypertension. 3. Tachypnea. 4. Tachycardia. 5. Hypertension. 6. Leukocytosis with granulocytosis and bandemia. 7. Normocytic anemia. 8. Acute non-ST elevation myocardial infraction with elevated troponin. 9. End-stage renal disease, hemodialysis dependent. 10. Hypercalcitoninemia. 11. 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 12. Chronic microvascular ischemic disease of the brain. 13. Bifascicular block with right bundle-branch block, left anterior hemiblock, and anterolateral ST changes. 14. Fever. 1. Acute non-ST elevation mycoardial infraction with elevated CPK and elevated troponin with history of coronary artery disease. 2. Transient uncontrolled hypertension. 3. Encephalopathy. 4. Acute exacerbation of dementia. 5. Leukocytosis with granulocytosis and bandemia. 6. Normocytic anemia. 7. End-stage renal disease, hemodialysis dependent three times a week via the left upper extremity AV fistula. 8. Transaminitis. 9. 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 10. Bifascicular block with left anterior hemiblock, right bundle branch block. 11. Systemic inflammatory response syndrome. 12. Acute confusional state with history of dementia. 13. Moderate oropharyngeal dysphagia with risk for aspiration. 1. Nausea and vomiting, etiology undetermined. 2. Acute non-ST elevation mycoardial infraction with elevated troponin. 3. Questionable anterolateral coronary ischemia with ST depression in V1-V5. 4. Right bundle-branch block, left anterior hemiblock and bifascicular block. 5. Fever etiology, undetermined. 6. Questionable systemic inflammatory response syndrome. 7. Hiatal hernia. 8. Bibasilar opacities questionable interstitial marking versus pneumonia. 9. Chololithiasis. 10. Bilateral renal cyst. 11. Right inguinal nonobstructive hernia. 12. Fecal retention and stasis and constipation. 13. Bladder wall thickening. 14. Prostatomegaly. 15. Degenerative joint disease. 16. Left inguinal hernia containing bladder. 17. Nonobstructive right inguinal hernia containing distal ileum. 18. Encephalopathy with confusion. 19. Bifascicular block, right bundle-branch block and left anterior hemiblock. 20. Chronic ischemia. 21. History of poor compliance. 22. History of gastrointestinal bleeding. 23. Leukocytosis, granulocytosis and bandemia. 24. End-stage renal disease, hemodialysis dependent. 25. Acute non-ST elevation myocardial infarction with elevated troponin. 26. History of gastrointestinal bleeding. 27. History of dementia. 28. History of poor compliance. 29. Episodic nausea and vomiting, questionable diabetic gastroparesis. 30. Moderate oropharyngeal dysphagia with risk for aspiration (resolving). 1. Deconditioning. 2. Gait dysfunction. 3. Encephalopathy. 4. Episodic confusional state. 5. End-stage renal disease, hemodialysis dependent, three days a week via the left upper extremity AV fistula. 6. Insulin-requiring very well controlled diabetes mellitus. 7. Dementia with acute exacerbation. 8. Poor compliance. 9. Acute non-ST elevation myocardial infarction with elevated troponin and electrocardiogram changes. 10. Bifascicular block with right bundle-branch block, left anterior hemiblock and lateral ischemic changes on the electrocardiogram. 11. Coronary artery disease. 12. History of angioplasty. 13. Dementia. 14. Secondary hyperparathyroidism. 15. Anemia. 16. Leukocytosis with granulocytosis and bandemia. 1. Acute non-ST elevation myocardial infarction and acute coronary syndrome. 2. Hypertension. 3. Dementia. 4. Leukocytosis with granulocytosis and bandemia. 5. Normocytic anemia. 6. End-stage renal disease, hemodialysis dependent. 7. Insulin requiring type 1 diabetes mellitus, well controlled with hemoglobin A1c of 5.4. 8. History of poor compliance. 9. Fecal impaction. 10. Fecal stasis. 11. Constipation. 12. Cholelithiasis. 13. Non-obstructed right inguinal hernia containing ileum. 14. Left inguinal hernia containing bladder. 15. Interstitial lung disease with bibasilar atelectasis. 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 17. Right bundle-branch block. 18. Bifascicular block. 19. End-stage renal disease, hemodialysis dependent, three times a week via the left upper extremity AV fistula. 20. Coronary artery disease with acute non-ST elevation myocardial infarction. 21. Systemic inflammatory response syndrome. 22. History of healthcare-associated pneumonia. 23. History of gastrointestinal bleeding. 24. Deconditioning. 25. Gait dysfunction. 1. Non ST-elevation myocardial infarction with elevated troponin. 2. Bifascicular block with right bundle branch block and left anterior hemiblock with lateral chronic ischemic changes. 3. History of gastrointestinal bleeding. 4. Gait dysfunction. 5. Deconditioning. 6. Status post uncontrolled hypertension. 7. Status post high-grade fever. 8. Leukocytosis with granulocytosis and bandemia. 9. Normocytic anemia. 10. End-stage renal disease, hemodialysis-dependent via the left upper extremity arteriovenous fistula. 11. Well controlled type 1 insulin-requiring diabetes mellitus with hemoglobin A1c of 5.4. 12. Hyperprolactinemia with elevated procalcitonin of greater than 160. 13. B positive blood type. 14. Acute coronary syndrome with acute non ST-elevation myocardial infarction and lateral chronic ischemia and bifascicular block with right bundle branch block and left anterior hemiblock. 15. Diabetic gastroparesis. 16. Mild to moderate oropharyngeal dysphagia with risk for aspiration, improving and resolving. 17. Systemic inflammatory response syndrome. 18. Possible sepsis with healthcare-associated pneumonia. 19. History of recurrent gastrointestinal bleeding. 20. Microvascular ischemic disease of the brain. 21. Small hiatal hernia. 22. Bibasilar pulmonary opacities and interstitial markings. 23. Calcified cholelithiasis with partially distended gallbladder. 24. Bilateral adrenal gland thickening. 25. Bilateral renal cyst. 26. Nonobstructive right inguinal hernia. 27. Fecal retention and fecal stasis in the descending colon and sigmoid with fecal bolus in the rectum. 28. Mild gallbladder wall thickening. 29. Prostatomegaly. 30. Degenerative joint disease of the spine. 31. Umbilical hernia. 32. Left inguinal hernia containing bladder. 33. Non-obstructing right inguinal hernia containing distal ileum. 34. Fecal impaction, retention, stasis. 35. Left anterior hemiblock, right bundle-branch block, bifascicular block with lateral coronary ischemic changes. 36. History of poor compliance. 37. Acute coronary syndrome. 38. Dementia. 39. Prostatic hypertrophy. 40. Constipation. 41. Gastroesophageal reflux. 1. High-grade fever of 102 degrees Fahrenheit. 2. Hypertension. 3. Tachypnea. 4. Tachycardia. 5. Hypertension. 6. Leukocytosis with granulocytosis and bandemia. 7. Normocytic anemia. 8. Acute non-ST elevation myocardial infraction with elevated troponin. 9. End-stage renal disease, hemodialysis dependent. 10. Hypercalcitoninemia. 11. 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 12. Chronic microvascular ischemic disease of the brain. 13. Bifascicular block with right bundle-branch block, left anterior hemiblock, and anterolateral ST changes. 14. Fever. 1. Acute non-ST elevation mycoardial infraction with elevated CPK and elevated troponin with history of coronary artery disease. 2. Transient uncontrolled hypertension. 3. Encephalopathy. 4. Acute exacerbation of dementia. 5. Leukocytosis with granulocytosis and bandemia. 6. Normocytic anemia. 7. End-stage renal disease, hemodialysis dependent three times a week via the left upper extremity AV fistula. 8. Transaminitis. 9. 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 10. Bifascicular block with left anterior hemiblock, right bundle branch block. 11. Systemic inflammatory response syndrome. 12. Acute confusional state with history of dementia. 13. Moderate oropharyngeal dysphagia with risk for aspiration. 1. Nausea and vomiting, etiology undetermined. 2. Acute non-ST elevation mycoardial infraction with elevated troponin. 3. Questionable anterolateral coronary ischemia with ST depression in V1-V5. 4. Right bundle-branch block, left anterior hemiblock and bifascicular block. 5. Fever etiology, undetermined. 6. Questionable systemic inflammatory response syndrome. 7. Hiatal hernia. 8. Bibasilar opacities questionable interstitial marking versus pneumonia. 9. Chololithiasis. 10. Bilateral renal cyst. 11. Right inguinal nonobstructive hernia. 12. Fecal retention and stasis and constipation. 13. Bladder wall thickening. 14. Prostatomegaly. 15. Degenerative joint disease. 16. Left inguinal hernia containing bladder. 17. Nonobstructive right inguinal hernia containing distal ileum. 18. Encephalopathy with confusion. 19. Bifascicular block, right bundle-branch block and left anterior hemiblock. 20. Chronic ischemia. 21. History of poor compliance. 22. History of gastrointestinal bleeding. 23. Leukocytosis, granulocytosis and bandemia. 24. End-stage renal disease, hemodialysis dependent. 25. Acute non-ST elevation myocardial infarction with elevated troponin. 26. History of gastrointestinal bleeding. 27. History of dementia. 28. History of poor compliance. 29. Episodic nausea and vomiting, questionable diabetic gastroparesis. 30. Moderate oropharyngeal dysphagia with risk for aspiration (resolving). PLAN: At this time, patient will be continued on transitional care unit with daily physical therapy, ambulation therapy, gait training. Patient's medication will be as per the MAR of today, which was reviewed. Patient is currently being followed by nephrology and other subspecialty. Patient's further management will be dependent upon the patient's clinical condition, hemodynamic status and as per patient's recommendation by other physician involved in the care of the patient. As mentioned yesterday,I have met with the patient's , Ms. Alma Ba. I have explained to the patient's about the details of patient's medical condition, diagnosis, test results, recommendation by all physicians involved in the care of the patient with all above explained to the patient's in layman's language. All questions and concerns answered to her satisfaction. I have again reinforced to the patient's that patient will most likely benefit and may require 24-hour care and supervision upon discharge from the hospital. Patient's was advised to contact renal social worker for discharge planning and post discharge needs. Dictated and electronically signed, not read. Zeyad Nazario MD [email or web address]
[2016-11-12] MEDS: Pantoprazole 40mg/100ml IVPB 40 MG/100 ML BAG IVPB SCH ×2 (05:03→17:45)
[2016-11-12] MEDS: Meropenem 500 MG in Sodium Chloride 0.9% 100 ML IVPB SCH (05:11)
[2016-11-12] MEDS: Insulin Lispro (humaLOG) LOW Coverage SC SCH ×4 (06:39→22:18)
[2016-11-12] MEDS: Albuterol-Ipratrop 3 mg / 0.5 (3 ml) UD IH SCH ×3 (07:22→19:42)
[2016-11-12] MEDS: POLYETHYLENE GLYCOL 3350 17 GM/Dose PACKET PO SCH ×2 (10:42→17:46)
[2016-11-12] MEDS: Multivitamin Vitamin B Complex (Nephro-Vite) Tab PO SCH (10:42)
[2016-11-12 15:04] LABS: BASO # 0.02 K/mm3 (0.0-2.0); BASO % 0.3 % (0.0-3.0); EOS # 0.1 (0.0-0.7); EOS % 1.9 % (1.5-5.0); GRAN # 4.13 (1.4-6.5); GRAN % 55.3 % (50.0-68.0); HEMATOCRIT 33.3 % (42.0-52.0); LYMPH # 2.1 (1.2-3.4); LYMPH % 28.6 % (22.0-35.0); MEAN CELL VOLUME 87.2 fl (80.0-105.0); MEAN CORPUSCULAR HEMOGLOBIN 29.1 pg (25.0-35.0); MEAN CORPUSCULAR HGB CONC 33.3 g/dl (31.0-37.0); MONO % 13.9 % (1.0-6.0); RED CELL DISTRIBUTION WIDTH 16.2 % (11.5-14.5); WHITE BLOOD COUNT 7.5 10^3/ul (4.5-11.0)
--- NOTE | 2016-11-12 15:11 | PN ---
DATE: 11/12/2016 SUBJECTIVE: The patient is in the TCU. He is comfortable in bed watching TV after eating breakfast. No shortness of breath. No chest pain. PHYSICAL EXAMINATION: VITAL SIGNS: Blood pressure 152/77, heart rate in the 70s. NECK: Negative JVD. LUNGS: Without rales. HEART: Reveals S1, S2. EXTREMITIES: Without edema. LABORATORY DATA: Hemoglobin is 11.7. Chemistries, glucose is 157. IMPRESSION: 1. Status post non-ST elevation myocardial infarction. 2. Coronary artery disease. 3. Diabetes mellitus. 4. Hypertension. 5. Dementia. Given these findings, the patient is clinically stable from a cardiac perspective on his current medications. Jamin Dewey MD
[2016-11-12 15:15] LABS: ALB/GLOB RATIO 1.1 (1.1-1.8); BILIRUBIN,TOTAL 0.4 mg/dL (0.2-1.3); CALCIUM 8.5 mg/dL (8.4-10.5); MAGNESIUM 2.1 mg/dL (1.7-2.2); PHOSPHOROUS 4.3 mg/dL (2.5-4.5); POTASSIUM 4.5 mmol/L (3.6-5.0); TOTAL PROTEIN 7.4 g/dL (5.8-8.3)
--- NOTE | 2016-11-12 20:01 | CP.PCM.PN ---
Subjective - Date & Time of Evaluation Date of Evaluation: 11/12/16 Time of Evaluation: 11:35 - Subjective Subjective: Comfortable on a chair, not in distress, afebrile. Breathing well at rest. Objective - Vital Signs/Intake and Output Vital Signs (last 24 hours): Temp Pulse Resp BP Pulse Ox 98.1 F 72 18 152/77 H 97 11/12/16 09:12 11/12/16 09:12 11/12/16 09:12 11/12/16 09:12 11/12/16 09:12 - Medications Medications: Current Medications Acetaminophen (Tylenol 325mg Tab) 650 mg PO Q6H PRN; Protocol PRN Reason: TEMP>=99.5F Albuterol/Ipratropium (Duoneb 3 Mg/0.5 Mg (3 Ml) Ud) 3 ml IH [id number] FRANCISCO JAVIER PRN Reason: Protocol Last Admin: 11/12/16 07:22 Dose: Not Given Aspirin (Ecotrin) 81 mg PO 0800 FRANCISCO JAVIER PRN Reason: Protocol Last Admin: 11/12/16 07:47 Dose: 81 mg Atorvastatin Calcium (Lipitor) 40 mg PO DIN FRANCISCO JAVIER PRN Reason: Protocol Last Admin: 11/11/16 17:20 Dose: 40 mg Donepezil HCl (Aricept) 10 mg PO HS FRANCISCO JAVIER PRN Reason: Protocol Last Admin: 11/11/16 22:16 Dose: 10 mg Folic Acid (Folic Acid) 1 mg PO DAILY FRANCISCO JAVIER PRN Reason: Protocol Last Admin: 11/11/16 10:46 Dose: 1 mg Doxycycline Hyclate 100 mg/ (Sodium Chloride) 100 mls @ 100 mls/hr IVPB 0600, 1800 FRANCISCO JAVIER PRN Reason: Protocol Last Admin: 11/12/16 05:11 Dose: 100 mls/hr Meropenem 500 mg/ Sodium (Chloride) 100 mls @ 100 mls/hr IVPB 0600 FRANCISCO JAVIER PRN Reason: Protocol Stop: 11/16/16 06:01 Last Admin: 11/12/16 05:11 Dose: 100 mls/hr Pantoprazole Sodium (Protonix 40mg Ivpb) 40 mg in 100 mls @ 200 mls/hr IVPB 0600,1600 FRANCISCO JAVIER Last Admin: 11/12/16 05:03 Dose: 200 mls/hr Insulin Human Lispro (Humalog Low) 0 units SC ACHS FRANCISCO JAVIER PRN Reason: Protocol Last Admin: 11/12/16 06:39 Dose: Not Given Isosorbide Mononitrate (Imdur) 120 mg PO 0630 FRANCISCO JAVIER PRN Reason: Protocol Last Admin: 11/12/16 05:31 Dose: 120 mg Latanoprost (Xalatan Opht) 0 ml OU HS FRANCISCO JAVIER PRN Reason: Protocol Last Admin: 11/11/16 22:16 Dose: 2.5 ml Losartan Potassium (Cozaar) 100 mg PO DAILY FRANCISCO JAVIER PRN Reason: Protocol Last Admin: 11/11/16 10:46 Dose: 100 mg Metoprolol Tartrate (Lopressor) 25 mg PO 0800,1800 FRANCISCO JAVIER PRN Reason: Protocol Last Admin: 11/12/16 07:47 Dose: 25 mg Polyethylene Glycol (Miralax) 17 gm PO BID FRANCISCO JAVIER PRN Reason: Protocol Last Admin: 11/11/16 17:21 Dose: Not Given Sevelamer HCl (Renagel) 800 mg PO 0730,1130,1800 FRANCISCO JAVIER PRN Reason: Protocol Last Admin: 11/12/16 07:48 Dose: 800 mg Tamsulosin HCl (Flomax) 0.4 mg PO 1830 FRANCISCO JAVIER PRN Reason: Protocol Last Admin: 11/11/16 18:27 Dose: 0.4 mg Vitamin B Complex/Vit C/Folic Acid (Nephro-Jaylin) 1 tab PO DAILY FRANCISCO JAVIER PRN Reason: Protocol Last Admin: 11/11/16 10:47 Dose: 1 tab - Labs Labs: 11/10/16 14:35 11/10/16 14:35 - Constitutional Appears: Non-toxic, No Acute Distress - Head Exam Head Exam: NORMAL INSPECTION - ENT Exam ENT Exam: Mucous Membranes Moist - Neck Exam Neck Exam: absent: Lymphadenopathy, Meningismus - Respiratory Exam Respiratory Exam: Decreased Breath Sounds - Cardiovascular Exam Cardiovascular Exam: +S1, +S2 - GI/Abdominal Exam GI & Abdominal Exam: Soft. absent: Tenderness Assessment and Plan - Assessment and Plan (Free Text) Plan: Assessment Systemic Inflammatory Response Syndrome, consider due to NSTEMI, R/O sepsis from HCAP dementia history of sepsis from healthcare-associated pneumonia on top of non-ST elevation [place] with acute congestive heart failure, clinically improved and S/P treatment history of GI bleeding ESRD on HD cornoary artery disease Cerebrovascular accident Gastric cancer Mitral valve prolapse Plan continue Doxycycline and Merrem (day 7); PCT is elevated but the patient is ESRD ; blood cx are negative; target 7 days of therapy - will d/c antibiotics and observe will continue to follow clinically
[2016-11-12] MEDS: Latanoprost 2.5 ml Opht Soln OU SCH ×2 (21:39→21:43)
[2016-11-13] MEDS: Albuterol-Ipratrop 3 mg / 0.5 (3 ml) UD IH SCH ×5 (01:29→20:04)
[2016-11-13] MEDS: Pantoprazole 40mg/100ml IVPB 40 MG/100 ML BAG IVPB SCH ×3 (05:27→17:42)
[2016-11-13] MEDS: Insulin Lispro (humaLOG) LOW Coverage SC SCH ×4 (07:52→21:59)
[2016-11-13] MEDS: POLYETHYLENE GLYCOL 3350 17 GM/Dose PACKET PO SCH ×2 (11:30→17:43)
[2016-11-13] MEDS: Multivitamin Vitamin B Complex (Nephro-Vite) Tab PO SCH (11:30)
--- NOTE | 2016-11-13 13:44 | PN ---
DATE: 11/13/2016 LOCATION: The patient is in room 321, bed 1, transitional care unit. SUBJECTIVE: This is an 85-year-old white male. The patient is seen this morning. He is comfortable. He is eating his breakfast. At this time, the patient is getting antibiotic treatment for hospital-acquired pneumonia. The patient presented with weakness and the patient had a past history of neurological illness with gait disability. The patient is on chronic hemodialysis. 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 The patient has history of diabetes. The patient has had encephalopathy in the past. The patient also has a past history of gastric carcinoma. The patient has history of gastrointestinal bleeding, chronic constipation, and history of coronary artery disease with history of angioplasty in the past. PHYSICAL EXAMINATION: VITAL SIGNS: Today, the pulse is 80, blood pressure 142/80, temperature is 98, respirations are 16, and O2 saturation 98% on room air. LUNGS: On examination of the lungs, the breath sounds are distributed equally. There is no evidence of localizing signs in the lung. HEART: Normal sinus rhythm. ABDOMEN: Soft. Liver and spleen are not palpable. CENTRAL NERVOUS SYSTEM: The patient is conscious, oriented to place and person, but not to time. ASSESSMENT AND PLAN: The patient does not have any definite neurological deficit at this time, but he gets physical therapy and he will continue all his medications. He is on Aricept 10 mg daily. The patient is on losartan 100 mg daily and albuterol treatment with ipratropium. The patient is on aspirin 81 mg daily, Flomax 0.4 mg daily, folic acid 1 mg daily, and insulin coverage for hyperglycemia. The patient is on Imdur 120 mg daily. The patient gets Lipitor 40 mg daily and metoprolol 25 mg daily. The patient is also on MiraLax for constipation, vitamin B complex, and pantoprazole 40 mg daily. The patient is on Renagel 800 mg p.o. daily for renal insufficiency and chronic renal failure. His diet is renal diet. He is also followed by [facility]. The patient has his dialysis while he is in the hospital. His condition seems to be stable. We will continue current management. Vijay Anton MD
--- NOTE | 2016-11-13 16:32 | PN ---
DATE OF SERVICE: 11/12/2016 SUBJECTIVE: The patient is seen sitting in chair. He is awake. He is alert. He is comfortable. He denies any pain. PHYSICAL EXAMINATION: GENERAL: Elderly male, sitting in chair. VITAL SIGNS: Blood pressure 162/77, heart rate 72, respiratory rate 18, temperature 98.1. HEENT: Normocephalic and atraumatic. NECK: Supple. No JVD. EXTREMITIES: No lower extremity edema. INTAKE AND OUTPUT: Not charted. LABORATORY DATA: WBC 7.5, hemoglobin 11, hematocrit 33, platelets 203. Sodium 135, potassium 4.5, chloride 98, CO2 24, BUN 38, creatinine 7.2, glucose 110, calcium 8.5, phosphorous 4.3, magnesium 2.1. MEDICATIONS: List reviewed. ASSESSMENT: 1. Status post non-ST elevation myocardial infarction. 2. Kns-[id number] diabetes mellitus. 3. Hypertension. 4. End-stage renal disease. 5. Dementia. PLAN: 1. Conservative management for acute HI. 2. Physical therapy. 3. Fingerstick monitoring. 4. Antihypertensives. Brinda Ibarra MD
[2016-11-13] MEDS: Latanoprost 2.5 ml Opht Soln OU SCH ×2 (21:59→22:00)
--- NOTE | 2016-11-14 01:11 | PN ---
DATE: 11/13/2016 SUBJECTIVE: The patient is seen sitting in chair. He is awake, he is alert, he is comfortable. PHYSICAL EXAMINATION: GENERAL: An elderly male, sitting in chair. VITAL SIGNS: Blood pressure 154/63, heart rate 68, respiratory rate 18, and temperature 98. NECK: Supple. No JVD. LUNGS: Bilateral equal air entry, no rales. EXTREMITIES: No lower extremity edema. INTAKE AND OUTPUT: Not charted. LABORATORY DATA: Hemoglobin 11.1, potassium 4.5, albumin 3.8, phosphorous 4.3, calcium 8.5, and magnesium 2.1. CURRENT MEDICATIONS: Aricept, Cozaar, albuterol, and aspirin. ASSESSMENT AND PLAN: , continue physical therapy, continue fingerstick monitoring. Next dialysis on Tuesday. Brinda Ibarra MD
[2016-11-14] MEDS: Albuterol-Ipratrop 3 mg / 0.5 (3 ml) UD IH SCH ×2 (02:30→07:33)
--- NOTE | 2016-11-14 03:45 | PN ---
DATE: 11/13/2016 SUBJECTIVE: The patient is in bed and in no acute distress. He was seen in 321. PHYSICAL EXAMINATION: VITAL SIGNS: Temperature is 98, blood pressure is 150/80, respiratory rate of 18. HEENT: Unremarkable. NECK: Supple. LUNGS: Decreased breath sounds. HEART: Normal S1 and S2. ABDOMEN: Soft, nontender. LABORATORY DATA: Examination reveals a white count of 7.5, hemoglobin of 11, platelets of 203. Chemistries reveal a BUN of 38 and creatinine of 7.2. Microbiology is noted. ASSESSMENT AND PLAN: This is an 85-year-old male with systemic inflammatory response syndrome due to [id number] myocardial infarction and history of sepsis, healthcare-associated pneumonia, and acute congestive heart failure. He has received 7 days of doxycycline and meropenem, currently off antibiotics. Review of medications confirms the patient to be off antibiotics. The patient is at risk for developing nosocomial infections. Magdy Diego MD
[2016-11-14] MEDS: Pantoprazole 40 mg EC Tab PO SCH (07:25)
[2016-11-14] MEDS: Insulin Lispro (humaLOG) LOW Coverage SC SCH ×5 (07:37→23:24)
[2016-11-14] MEDS: POLYETHYLENE GLYCOL 3350 17 GM/Dose PACKET PO SCH ×2 (10:44→17:44)
[2016-11-14] MEDS: Multivitamin Vitamin B Complex (Nephro-Vite) Tab PO SCH (10:45)
--- NOTE | 2016-11-14 14:23 | PN ---
DATE: LOCATION: The patient is in the Transitional Care Unit, room 321, bed 1. SUBJECTIVE: The patient is an 85 year old black male. He was admitted with infection in the lung. The patient is a dialysis patient. He gets dialysis 3 times a week. The patient was seen this morning. PHYSICAL EXAMINATION: VITAL SIGNS: His pulse is 78 per minute, blood pressure is 153/80, his temperature is 98, respirations are 16. LUNGS: Clear breath sounds distributed equally bilaterally. ABDOMEN: Soft. Liver and spleen are not palpable. CENTRAL NERVOUS SYSTEM: Within normal limits. ASSESSMENT AND PLAN: The patient is currently continuing the antibiotic treatment and he will get his medications. He is on Aricept 10 mg daily. The patient is on losartan 100 mg daily, albuterol treatment with ipratropium q. 6 hours. The patient is on aspirin 81 mg daily, Flomax 0.4 mg daily, folic acid 1 mg daily. The patient is on Renagel 800 mg p.o. daily, that is for renal insufficiency and chronic renal failure. The patient's diet is a renal diet. His condition seems to be stable. We will continue current management. Vijay Anton MD [id number]
[2016-11-14] MEDS: Latanoprost 2.5 ml Opht Soln OU SCH (21:17)
--- NOTE | 2016-11-14 21:20 | PN ---
DATE: 11/14/2016 SUBJECTIVE: The patient is in bed, in no acute distress. PHYSICAL EXAMINATION: VITAL SIGNS: Temperature is 98, blood pressure is 129/60, respiratory rate of 18. HEENT: Unremarkable. NECK: Supple. LUNGS: Have decreased breath sounds. HEART: Normal S1 and S2. ABDOMEN: Soft, nontender. LABORATORY DATA: Reveals a white count of 7.5, hemoglobin of 11. Chemistries reveals BUN of 38 and creatinine of 7.2. Microbiology is noted. ASSESSMENT AND PLAN: This is an 85-year-old male with systemic inflammatory response syndrome, [id number] myocardial infarction. history of sepsis, healthcare-associated pneumonia, acute congestive heart failure, received 7 days of doxycycline and meropenem. Currently off of antibiotics. Afebrile. The patient is at risk for developing of nosocomial infections. Magdy Diego MD
[2016-11-15] MEDS: Albuterol-Ipratrop 3 mg / 0.5 (3 ml) UD IH SCH ×4 (02:30→20:03)
[2016-11-15 06:54] LABS: POTASSIUM 4.3 mmol/L (3.6-5.0)
[2016-11-15 06:57] LABS: BASO # 0.02 K/mm3 (0.0-2.0); BASO % 0.2 % (0.0-3.0); EOS # 0.1 (0.0-0.7); EOS % 0.9 % (1.5-5.0); GRAN # 7.34 (1.4-6.5); GRAN % 69.6 % (50.0-68.0); LYMPH % 18.6 % (22.0-35.0); MEAN CELL VOLUME 87.1 fl (80.0-105.0); MEAN CORPUSCULAR HEMOGLOBIN 28.2 pg (25.0-35.0); MEAN CORPUSCULAR HGB CONC 32.4 g/dl (31.0-37.0); MEAN PLATELET VOLUME 11.5 fl (7.0-11.0); MONO # 1.1 (0.1-0.6); MONO % 10.7 % (1.0-6.0); RED CELL DISTRIBUTION WIDTH 16.4 % (11.5-14.5); WHITE BLOOD COUNT 10.5 10^3/ul (4.5-11.0)
[2016-11-15] MEDS: Pantoprazole 40 mg EC Tab PO SCH (07:08)
[2016-11-15] MEDS: Insulin Lispro (humaLOG) LOW Coverage SC SCH ×4 (07:09→22:04)
[2016-11-15 07:23] LABS: ALB/GLOB RATIO 0.9 (1.1-1.8); BILIRUBIN,TOTAL 0.4 mg/dL (0.2-1.3); CALCIUM 8.3 mg/dL (8.4-10.5); MAGNESIUM 1.9 mg/dL (1.7-2.2); PHOSPHOROUS 3.8 mg/dL (2.5-4.5); TOTAL PROTEIN 6.5 g/dL (5.8-8.3)
--- NOTE | 2016-11-15 07:31 | PN ---
DATE: 11/12/2016 SUBJECTIVE: The patient is seen in room 321, bed 1. The patient today is also getting physical therapy of the upper extremity with weight bars. The patient is sitting up in the recliner. The patient is alert, awake and oriented to person, place and name. The patient is able to move upper and lower extremity without assistance. The patient is able to stand without any assistance from the sitting position. PHYSICAL EXAMINATION a VITAL SIGNS: T max afebrile, heart rate of 84 to 74. Blood pressure 140s and 130s over 80s and 70s and respirations are in high teens to low 20s. O2 saturation mid 90s to mid-to-high 90s. GENERAL: The patient is sitting up in the chair. HEAD: Normocephalic and atraumatic. HEENT: Pinkish conjunctivae. Anicteric sclera. No oropharyngeal lesion. NECK: No neck rigidity. CHEST: Kyphosis. LUNGS: Shows occasional rhonchi. Upper lung chaney anteriorly and posteriorly. CARDIOVASCULAR: S1 and S2, regular rhythm. Questionable soft systolic murmur, right second intercostal space, left sternal border and left second intercostal space. ABDOMEN: Soft. Positive bowel sounds. GENITALIA: Male. RECTAL: Examination is deferred. EXTREMITIES: Shows no pitting edema. No calf tenderness and no Homans' sign. Positive left upper extremity AV fistula noted. GAIT: Not tested. VASCULAR: Palpable pulses. IMPRESSION AND PLAN: 1. Acute non-ST elevation myocardial infarction. 2. Deconditioning. 3. Gait dysfunction. 4. End-stage renal disease, hemodialysis dependent. 5. Insulin requiring diabetes mellitus. 6. Anemia. 7. Dementia. 8. History of gastrointestinal bleeding. 9. History of dementia. 10. History of poor compliance. 1. Gait dysfunction. 2. Deconditioning. 3. Acute non-ST elevation myocardial infarction with elevated troponin. 4. Acute toxic metabolic encephalopathy and altered mental status and transient confusion with behavioral disturbances. 5. Normocytic anemia. 6. Leukocytosis. 7. Type 1 insulin requiring diabetes mellitus well controlled. 8. History of coronary artery disease, non ST elevation myocardial infarction, angioplasty and stent placement. 9. End-stage renal disease, hemodialysis dependent via the left upper extremity AV fistula 3 times a week. 10. History of dementia. 11. Constipation. 12. Fecal retention, fecal stasis. 13. History of dyslipidemia. 14. History of secondary hyperparathyroidism. 15. History of poor compliance. 16. History of gastric carcinoma. 17. History of recurrent gastrointestinal bleeding. 1. Deconditioning. 2. Gait dysfunction. 3. Encephalopathy. 4. Episodic confusional state. 5. End-stage renal disease, hemodialysis dependent, three days a week via the left upper extremity AV fistula. 6. Insulin-requiring very well controlled diabetes mellitus. 7. Dementia with acute exacerbation. 8. Poor compliance. 9. Acute non-ST elevation myocardial infarction with elevated troponin and electrocardiogram changes. 10. Bifascicular block with right bundle-branch block, left anterior hemiblock and lateral ischemic changes on the electrocardiogram. 11. Coronary artery disease. 12. History of angioplasty. 13. Dementia. 14. Secondary hyperparathyroidism. 15. Anemia. 16. Leukocytosis with granulocytosis and bandemia. 1. Acute non-ST elevation myocardial infarction and acute coronary syndrome. 2. Hypertension. 3. Dementia. 4. Leukocytosis with granulocytosis and bandemia. 5. Normocytic anemia. 6. End-stage renal disease, hemodialysis dependent. 7. Insulin requiring type 1 diabetes mellitus, well controlled with hemoglobin A1c of 5.4. 8. History of poor compliance. 9. Fecal impaction. 10. Fecal stasis. 11. Constipation. 12. Cholelithiasis. 13. Non-obstructed right inguinal hernia containing ileum. 14. Left inguinal hernia containing bladder. 15. Interstitial lung disease with bibasilar atelectasis. 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 17. Right bundle-branch block. 18. Bifascicular block. 19. End-stage renal disease, hemodialysis dependent, three times a week via the left upper extremity AV fistula. 20. Coronary artery disease with acute non-ST elevation myocardial infarction. 21. Systemic inflammatory response syndrome. 22. History of healthcare-associated pneumonia. 23. History of gastrointestinal bleeding. 24. Deconditioning. 25. Gait dysfunction. 1. Non ST-elevation myocardial infarction with elevated troponin. 2. Bifascicular block with right bundle branch block and left anterior hemiblock with lateral chronic ischemic changes. 3. History of gastrointestinal bleeding. 4. Gait dysfunction. 5. Deconditioning. 6. Status post uncontrolled hypertension. 7. Status post high-grade fever. 8. Leukocytosis with granulocytosis and bandemia. 9. Normocytic anemia. 10. End-stage renal disease, hemodialysis-dependent via the left upper extremity arteriovenous fistula. 11. Well controlled type 1 insulin-requiring diabetes mellitus with hemoglobin A1c of 5.4. 12. Hyperprolactinemia with elevated procalcitonin of greater than 160. 13. B positive blood type. 14. Acute coronary syndrome with acute non ST-elevation myocardial infarction and lateral chronic ischemia and bifascicular block with right bundle branch block and left anterior hemiblock. 15. Diabetic gastroparesis. 16. Mild to moderate oropharyngeal dysphagia with risk for aspiration, improving and resolving. 17. Systemic inflammatory response syndrome. 18. Possible sepsis with healthcare-associated pneumonia. 19. History of recurrent gastrointestinal bleeding. 20. Microvascular ischemic disease of the brain. 21. Small hiatal hernia. 22. Bibasilar pulmonary opacities and interstitial markings. 23. Calcified cholelithiasis with partially distended gallbladder. 24. Bilateral adrenal gland thickening. 25. Bilateral renal cyst. 26. Nonobstructive right inguinal hernia. 27. Fecal retention and fecal stasis in the descending colon and sigmoid with fecal bolus in the rectum. 28. Mild gallbladder wall thickening. 29. Prostatomegaly. 30. Degenerative joint disease of the spine. 31. Umbilical hernia. 32. Left inguinal hernia containing bladder. 33. Non-obstructing right inguinal hernia containing distal ileum. 34. Fecal impaction, retention, stasis. 35. Left anterior hemiblock, right bundle-branch block, bifascicular block with lateral coronary ischemic changes. 36. History of poor compliance. 37. Acute coronary syndrome. 38. Dementia. 39. Prostatic hypertrophy. 40. Constipation. 41. Gastroesophageal reflux. 1. High-grade fever of 102 degrees Fahrenheit. 2. Hypertension. 3. Tachypnea. 4. Tachycardia. 5. Hypertension. 6. Leukocytosis with granulocytosis and bandemia. 7. Normocytic anemia. 8. Acute non-ST elevation myocardial infraction with elevated troponin. 9. End-stage renal disease, hemodialysis dependent. 10. Hypercalcitoninemia. 11. 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 12. Chronic microvascular ischemic disease of the brain. 13. Bifascicular block with right bundle-branch block, left anterior hemiblock, and anterolateral ST changes. 14. Fever. 1. Acute non-ST elevation mycoardial infraction with elevated CPK and elevated troponin with history of coronary artery disease. 2. Transient uncontrolled hypertension. 3. Encephalopathy. 4. Acute exacerbation of dementia. 5. Leukocytosis with granulocytosis and bandemia. 6. Normocytic anemia. 7. End-stage renal disease, hemodialysis dependent three times a week via the left upper extremity AV fistula. 8. Transaminitis. 9. 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 10. Bifascicular block with left anterior hemiblock, right bundle branch block. 11. Systemic inflammatory response syndrome. 12. Acute confusional state with history of dementia. 13. Moderate oropharyngeal dysphagia with risk for aspiration. 1. Nausea and vomiting, etiology undetermined. 2. Acute non-ST elevation mycoardial infraction with elevated troponin. 3. Questionable anterolateral coronary ischemia with ST depression in V1-V5. 4. Right bundle-branch block, left anterior hemiblock and bifascicular block. 5. Fever etiology, undetermined. 6. Questionable systemic inflammatory response syndrome. 7. Hiatal hernia. 8. Bibasilar opacities questionable interstitial marking versus pneumonia. 9. Chololithiasis. 10. Bilateral renal cyst. 11. Right inguinal nonobstructive hernia. 12. Fecal retention and stasis and constipation. 13. Bladder wall thickening. 14. Prostatomegaly. 15. Degenerative joint disease. 16. Left inguinal hernia containing bladder. 17. Nonobstructive right inguinal hernia containing distal ileum. 18. Encephalopathy with confusion. 19. Bifascicular block, right bundle-branch block and left anterior hemiblock. 20. Chronic ischemia. 21. History of poor compliance. 22. History of gastrointestinal bleeding. 23. Leukocytosis, granulocytosis and bandemia. 24. End-stage renal disease, hemodialysis dependent. 25. Acute non-ST elevation myocardial infarction with elevated troponin. 26. History of gastrointestinal bleeding. 27. History of dementia. 28. History of poor compliance. 29. Episodic nausea and vomiting, questionable diabetic gastroparesis. 30. Moderate oropharyngeal dysphagia with risk for aspiration (resolving). 1. Gait dysfunction. 2. Deconditioning. 3. Acute non-ST elevation myocardial infarction with elevated troponin. 4. Acute toxic metabolic encephalopathy and altered mental status and transient confusion with behavioral disturbances. 5. Normocytic anemia. 6. Leukocytosis. 7. Type 1 insulin requiring diabetes mellitus well controlled. 8. History of coronary artery disease, non ST elevation myocardial infarction, angioplasty and stent placement. 9. End-stage renal disease, hemodialysis dependent via the left upper extremity AV fistula 3 times a week. 10. History of dementia. 11. Constipation. 12. Fecal retention, fecal stasis. 13. History of dyslipidemia. 14. History of secondary hyperparathyroidism. 15. History of poor compliance. 16. History of gastric carcinoma. 17. History of recurrent gastrointestinal bleeding. 1. Deconditioning. 2. Gait dysfunction. 3. Encephalopathy. 4. Episodic confusional state. 5. End-stage renal disease, hemodialysis dependent, three days a week via the left upper extremity AV fistula. 6. Insulin-requiring very well controlled diabetes mellitus. 7. Dementia with acute exacerbation. 8. Poor compliance. 9. Acute non-ST elevation myocardial infarction with elevated troponin and electrocardiogram changes. 10. Bifascicular block with right bundle-branch block, left anterior hemiblock and lateral ischemic changes on the electrocardiogram. 11. Coronary artery disease. 12. History of angioplasty. 13. Dementia. 14. Secondary hyperparathyroidism. 15. Anemia. 16. Leukocytosis with granulocytosis and bandemia. 1. Acute non-ST elevation myocardial infarction and acute coronary syndrome. 2. Hypertension. 3. Dementia. 4. Leukocytosis with granulocytosis and bandemia. 5. Normocytic anemia. 6. End-stage renal disease, hemodialysis dependent. 7. Insulin requiring type 1 diabetes mellitus, well controlled with hemoglobin A1c of 5.4. 8. History of poor compliance. 9. Fecal impaction. 10. Fecal stasis. 11. Constipation. 12. Cholelithiasis. 13. Non-obstructed right inguinal hernia containing ileum. 14. Left inguinal hernia containing bladder. 15. Interstitial lung disease with bibasilar atelectasis. 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 17. Right bundle-branch block. 18. Bifascicular block. 19. End-stage renal disease, hemodialysis dependent, three times a week via the left upper extremity AV fistula. 20. Coronary artery disease with acute non-ST elevation myocardial infarction. 21. Systemic inflammatory response syndrome. 22. History of healthcare-associated pneumonia. 23. History of gastrointestinal bleeding. 24. Deconditioning. 25. Gait dysfunction. 1. Non ST-elevation myocardial infarction with elevated troponin. 2. Bifascicular block with right bundle branch block and left anterior hemiblock with lateral chronic ischemic changes. 3. History of gastrointestinal bleeding. 4. Gait dysfunction. 5. Deconditioning. 6. Status post uncontrolled hypertension. 7. Status post high-grade fever. 8. Leukocytosis with granulocytosis and bandemia. 9. Normocytic anemia. 10. End-stage renal disease, hemodialysis-dependent via the left upper extremity arteriovenous fistula. 11. Well controlled type 1 insulin-requiring diabetes mellitus with hemoglobin A1c of 5.4. 12. Hyperprolactinemia with elevated procalcitonin of greater than 160. 13. B positive blood type. 14. Acute coronary syndrome with acute non ST-elevation myocardial infarction and lateral chronic ischemia and bifascicular block with right bundle branch block and left anterior hemiblock. 15. Diabetic gastroparesis. 16. Mild to moderate oropharyngeal dysphagia with risk for aspiration, improving and resolving. 17. Systemic inflammatory response syndrome. 18. Possible sepsis with healthcare-associated pneumonia. 19. History of recurrent gastrointestinal bleeding. 20. Microvascular ischemic disease of the brain. 21. Small hiatal hernia. 22. Bibasilar pulmonary opacities and interstitial markings. 23. Calcified cholelithiasis with partially distended gallbladder. 24. Bilateral adrenal gland thickening. 25. Bilateral renal cyst. 26. Nonobstructive right inguinal hernia. 27. Fecal retention and fecal stasis in the descending colon and sigmoid with fecal bolus in the rectum. 28. Mild gallbladder wall thickening. 29. Prostatomegaly. 30. Degenerative joint disease of the spine. 31. Umbilical hernia. 32. Left inguinal hernia containing bladder. 33. Non-obstructing right inguinal hernia containing distal ileum. 34. Fecal impaction, retention, stasis. 35. Left anterior hemiblock, right bundle-branch block, bifascicular block with lateral coronary ischemic changes. 36. History of poor compliance. 37. Acute coronary syndrome. 38. Dementia. 39. Prostatic hypertrophy. 40. Constipation. 41. Gastroesophageal reflux. 1. High-grade fever of 102 degrees Fahrenheit. 2. Hypertension. 3. Tachypnea. 4. Tachycardia. 5. Hypertension. 6. Leukocytosis with granulocytosis and bandemia. 7. Normocytic anemia. 8. Acute non-ST elevation myocardial infraction with elevated troponin. 9. End-stage renal disease, hemodialysis dependent. 10. Hypercalcitoninemia. 11. 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 12. Chronic microvascular ischemic disease of the brain. 13. Bifascicular block with right bundle-branch block, left anterior hemiblock, and anterolateral ST changes. 14. Fever. 1. Acute non-ST elevation mycoardial infraction with elevated CPK and elevated troponin with history of coronary artery disease. 2. Transient uncontrolled hypertension. 3. Encephalopathy. 4. Acute exacerbation of dementia. 5. Leukocytosis with granulocytosis and bandemia. 6. Normocytic anemia. 7. End-stage renal disease, hemodialysis dependent three times a week via the left upper extremity AV fistula. 8. Transaminitis. 9. 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 10. Bifascicular block with left anterior hemiblock, right bundle branch block. 11. Systemic inflammatory response syndrome. 12. Acute confusional state with history of dementia. 13. Moderate oropharyngeal dysphagia with risk for aspiration. 1. Nausea and vomiting, etiology undetermined. 2. Acute non-ST elevation mycoardial infraction with elevated troponin. 3. Questionable anterolateral coronary ischemia with ST depression in V1-V5. 4. Right bundle-branch block, left anterior hemiblock and bifascicular block. 5. Fever etiology, undetermined. 6. Questionable systemic inflammatory response syndrome. 7. Hiatal hernia. 8. Bibasilar opacities questionable interstitial marking versus pneumonia. 9. Chololithiasis. 10. Bilateral renal cyst. 11. Right inguinal nonobstructive hernia. 12. Fecal retention and stasis and constipation. 13. Bladder wall thickening. 14. Prostatomegaly. 15. Degenerative joint disease. 16. Left inguinal hernia containing bladder. 17. Nonobstructive right inguinal hernia containing distal ileum. 18. Encephalopathy with confusion. 19. Bifascicular block, right bundle-branch block and left anterior hemiblock. 20. Chronic ischemia. 21. History of poor compliance. 22. History of gastrointestinal bleeding. 23. Leukocytosis, granulocytosis and bandemia. 24. End-stage renal disease, hemodialysis dependent. 25. Acute non-ST elevation myocardial infarction with elevated troponin. 26. History of gastrointestinal bleeding. 27. History of dementia. 28. History of poor compliance. 29. Episodic nausea and vomiting, questionable diabetic gastroparesis. 30. Moderate oropharyngeal dysphagia with risk for aspiration (resolving). 1. Deconditioning. 2. Gait dysfunction. 3. Encephalopathy. 4. Episodic confusional state. 5. End-stage renal disease, hemodialysis dependent, three days a week via the left upper extremity AV fistula. 6. Insulin-requiring very well controlled diabetes mellitus. 7. Dementia with acute exacerbation. 8. Poor compliance. 9. Acute non-ST elevation myocardial infarction with elevated troponin and electrocardiogram changes. 10. Bifascicular block with right bundle-branch block, left anterior hemiblock and lateral ischemic changes on the electrocardiogram. 11. Coronary artery disease. 12. History of angioplasty. 13. Dementia. 14. Secondary hyperparathyroidism. 15. Anemia. 16. Leukocytosis with granulocytosis and bandemia. 1. Acute non-ST elevation myocardial infarction and acute coronary syndrome. 2. Hypertension. 3. Dementia. 4. Leukocytosis with granulocytosis and bandemia. 5. Normocytic anemia. 6. End-stage renal disease, hemodialysis dependent. 7. Insulin requiring type 1 diabetes mellitus, well controlled with hemoglobin A1c of 5.4. 8. History of poor compliance. 9. Fecal impaction. 10. Fecal stasis. 11. Constipation. 12. Cholelithiasis. 13. Non-obstructed right inguinal hernia containing ileum. 14. Left inguinal hernia containing bladder. 15. Interstitial lung disease with bibasilar atelectasis. 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 17. Right bundle-branch block. 18. Bifascicular block. 19. End-stage renal disease, hemodialysis dependent, three times a week via the left upper extremity AV fistula. 20. Coronary artery disease with acute non-ST elevation myocardial infarction. 21. Systemic inflammatory response syndrome. 22. History of healthcare-associated pneumonia. 23. History of gastrointestinal bleeding. 24. Deconditioning. 25. Gait dysfunction. 1. Non ST-elevation myocardial infarction with elevated troponin. 2. Bifascicular block with right bundle branch block and left anterior hemiblock with lateral chronic ischemic changes. 3. History of gastrointestinal bleeding. 4. Gait dysfunction. 5. Deconditioning. 6. Status post uncontrolled hypertension. 7. Status post high-grade fever. 8. Leukocytosis with granulocytosis and bandemia. 9. Normocytic anemia. 10. End-stage renal disease, hemodialysis-dependent via the left upper extremity arteriovenous fistula. 11. Well controlled type 1 insulin-requiring diabetes mellitus with hemoglobin A1c of 5.4. 12. Hyperprolactinemia with elevated procalcitonin of greater than 160. 13. B positive blood type. 14. Acute coronary syndrome with acute non ST-elevation myocardial infarction and lateral chronic ischemia and bifascicular block with right bundle branch block and left anterior hemiblock. 15. Diabetic gastroparesis. 16. Mild to moderate oropharyngeal dysphagia with risk for aspiration, improving and resolving. 17. Systemic inflammatory response syndrome. 18. Possible sepsis with healthcare-associated pneumonia. 19. History of recurrent gastrointestinal bleeding. 20. Microvascular ischemic disease of the brain. 21. Small hiatal hernia. 22. Bibasilar pulmonary opacities and interstitial markings. 23. Calcified cholelithiasis with partially distended gallbladder. 24. Bilateral adrenal gland thickening. 25. Bilateral renal cyst. 26. Nonobstructive right inguinal hernia. 27. Fecal retention and fecal stasis in the descending colon and sigmoid with fecal bolus in the rectum. 28. Mild gallbladder wall thickening. 29. Prostatomegaly. 30. Degenerative joint disease of the spine. 31. Umbilical hernia. 32. Left inguinal hernia containing bladder. 33. Non-obstructing right inguinal hernia containing distal ileum. 34. Fecal impaction, retention, stasis. 35. Left anterior hemiblock, right bundle-branch block, bifascicular block with lateral coronary ischemic changes. 36. History of poor compliance. 37. Acute coronary syndrome. 38. Dementia. 39. Prostatic hypertrophy. 40. Constipation. 41. Gastroesophageal reflux. 1. High-grade fever of 102 degrees Fahrenheit. 2. Hypertension. 3. Tachypnea. 4. Tachycardia. 5. Hypertension. 6. Leukocytosis with granulocytosis and bandemia. 7. Normocytic anemia. 8. Acute non-ST elevation myocardial infraction with elevated troponin. 9. End-stage renal disease, hemodialysis dependent. 10. Hypercalcitoninemia. 11. 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 12. Chronic microvascular ischemic disease of the brain. 13. Bifascicular block with right bundle-branch block, left anterior hemiblock, and anterolateral ST changes. 14. Fever. 1. Acute non-ST elevation mycoardial infraction with elevated CPK and elevated troponin with history of coronary artery disease. 2. Transient uncontrolled hypertension. 3. Encephalopathy. 4. Acute exacerbation of dementia. 5. Leukocytosis with granulocytosis and bandemia. 6. Normocytic anemia. 7. End-stage renal disease, hemodialysis dependent three times a week via the left upper extremity AV fistula. 8. Transaminitis. 9. 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 10. Bifascicular block with left anterior hemiblock, right bundle branch block. 11. Systemic inflammatory response syndrome. 12. Acute confusional state with history of dementia. 13. Moderate oropharyngeal dysphagia with risk for aspiration. 1. Nausea and vomiting, etiology undetermined. 2. Acute non-ST elevation mycoardial infraction with elevated troponin. 3. Questionable anterolateral coronary ischemia with ST depression in V1-V5. 4. Right bundle-branch block, left anterior hemiblock and bifascicular block. 5. Fever etiology, undetermined. 6. Questionable systemic inflammatory response syndrome. 7. Hiatal hernia. 8. Bibasilar opacities questionable interstitial marking versus pneumonia. 9. Chololithiasis. 10. Bilateral renal cyst. 11. Right inguinal nonobstructive hernia. 12. Fecal retention and stasis and constipation. 13. Bladder wall thickening. 14. Prostatomegaly. 15. Degenerative joint disease. 16. Left inguinal hernia containing bladder. 17. Nonobstructive right inguinal hernia containing distal ileum. 18. Encephalopathy with confusion. 19. Bifascicular block, right bundle-branch block and left anterior hemiblock. 20. Chronic ischemia. 21. History of poor compliance. 22. History of gastrointestinal bleeding. 23. Leukocytosis, granulocytosis and bandemia. 24. End-stage renal disease, hemodialysis dependent. 25. Acute non-ST elevation myocardial infarction with elevated troponin. 26. History of gastrointestinal bleeding. 27. History of dementia. 28. History of poor compliance. 29. Episodic nausea and vomiting, questionable diabetic gastroparesis. 30. Moderate oropharyngeal dysphagia with risk for aspiration (resolving). PLAN: At this time, the patient is to continue on transitional care unit stay with daily physical therapy, occupational therapy, gait training and ambulation training. The patient will be continued on the medications as per the MAR. The patient's further management will be dependent upon the patient's clinical condition, hemodynamic status and as per the patient's response to therapeutic intervention. Dictated and electronically signed, not read. Zeyad Nazario MD [facility]
[2016-11-15] MEDS: POLYETHYLENE GLYCOL 3350 17 GM/Dose PACKET PO SCH ×2 (12:17→19:02)
[2016-11-15] MEDS: Multivitamin Vitamin B Complex (Nephro-Vite) Tab PO SCH (12:18)
--- NOTE | 2016-11-15 13:36 | CP.PCM.PN ---
Subjective - Date & Time of Evaluation Date of Evaluation: 11/15/16 Time of Evaluation: 10:25 - Subjective Subjective: Comfortable in bed, still finishing up his breakfast, no SOB at rest, no fevers overnight. Objective - Vital Signs/Intake and Output Vital Signs (last 24 hours): Temp Pulse Resp BP Pulse Ox 98.4 F 84 18 160/91 H 98 11/14/16 16:14 11/14/16 17:43 11/14/16 16:14 11/14/16 17:43 11/14/16 16:14 Intake and Output: 11/15/16 11/15/16 06:59 18:59 Intake Total 120 Balance 120 - Medications Medications: Current Medications Acetaminophen (Tylenol 325mg Tab) 650 mg PO Q6H PRN; Protocol PRN Reason: TEMP>=99.5F Albuterol/Ipratropium (Duoneb 3 Mg/0.5 Mg (3 Ml) Ud) 3 ml IH [id number] FRANCISCO JAVIER PRN Reason: Protocol Last Admin: 11/15/16 07:31 Dose: Not Given Aspirin (Ecotrin) 81 mg PO 0800 FRANCISCO JAVIER PRN Reason: Protocol Last Admin: 11/14/16 08:42 Dose: 81 mg Atorvastatin Calcium (Lipitor) 40 mg PO DIN FRANCISCO JAVIER PRN Reason: Protocol Last Admin: 11/14/16 17:43 Dose: Not Given Donepezil HCl (Aricept) 10 mg PO HS FRANCISCO JAVIER PRN Reason: Protocol Last Admin: 11/14/16 21:17 Dose: Not Given Folic Acid (Folic Acid) 1 mg PO DAILY FRANCISCO JAVIER PRN Reason: Protocol Last Admin: 11/14/16 10:44 Dose: 1 mg Insulin Human Lispro (Humalog Low) 0 units SC ACHS FRANCISCO JAVIER PRN Reason: Protocol Last Admin: 11/15/16 07:09 Dose: Not Given Isosorbide Mononitrate (Imdur) 120 mg PO 0630 FRANCISCO JAVIER PRN Reason: Protocol Last Admin: 11/15/16 07:08 Dose: Not Given Latanoprost (Xalatan Opht) 0 ml OU HS FRANCISCO JAVIER PRN Reason: Protocol Last Admin: 11/14/16 21:17 Dose: Not Given Losartan Potassium (Cozaar) 100 mg PO DAILY FRANCISCO JAVIER PRN Reason: Protocol Last Admin: 11/14/16 10:44 Dose: 100 mg Metoprolol Tartrate (Lopressor) 25 mg PO 0800,1800 FRANCISCO JAVIER PRN Reason: Protocol Last Admin: 11/15/16 08:22 Dose: Not Given Pantoprazole Sodium (Protonix Ec Tab) 40 mg PO 0600 FRANCISCO JAVIER PRN Reason: Protocol Last Admin: 11/15/16 07:08 Dose: Not Given Polyethylene Glycol (Miralax) 17 gm PO BID FRANCISCO JAVIER PRN Reason: Protocol Last Admin: 11/14/16 17:44 Dose: Not Given Sevelamer HCl (Renagel) 800 mg PO 0730,1130,1800 FRANCISCO JAVIER PRN Reason: Protocol Last Admin: 11/15/16 08:22 Dose: Not Given Tamsulosin HCl (Flomax) 0.4 mg PO 1830 FRANCISCO JAVIER PRN Reason: Protocol Last Admin: 11/14/16 17:44 Dose: Not Given Vitamin B Complex/Vit C/Folic Acid (Nephro-Jaylin) 1 tab PO DAILY FRANCISCO JAVIER PRN Reason: Protocol Last Admin: 11/14/16 10:45 Dose: 1 tab - Labs Labs: 11/15/16 06:30 11/15/16 06:30 - Constitutional Appears: Non-toxic, No Acute Distress - Head Exam Head Exam: NORMAL INSPECTION - Neck Exam Neck Exam: absent: Meningismus - Respiratory Exam Respiratory Exam: Decreased Breath Sounds - Cardiovascular Exam Cardiovascular Exam: +S1, +S2 - GI/Abdominal Exam GI & Abdominal Exam: Soft. absent: Tenderness Assessment and Plan - Assessment and Plan (Free Text) Plan: Assessment S/P Systemic Inflammatory Response Syndrome, consider due to NSTEMI and sepsis from HCAP - S/P treatment for HCAP dementia history of sepsis from healthcare-associated pneumonia on top of non-ST elevation [place] with acute congestive heart failure, clinically improved and S/P treatment history of GI bleeding ESRD on HD cornoary artery disease Cerebrovascular accident Gastric cancer Mitral valve prolapse Plan continue to monitor off antibiotics since he is at risk for nosocomial infections
--- NOTE | 2016-11-15 14:48 | PN ---
DATE: SUBJECTIVE: This patient is being treated in the hospital for pneumonia. The patient has renal failure. He is on dialysis. At this moment, the patient is getting renal dialysis. The patient has history of dementia, chronic obstructive lung disease, diabetes mellitus, hyperlipidemia, and coronary artery disease. The patient has had multiple angioplasties in the past. The patient also has benign prostatic hyperplasia and chronic constipation. PHYSICAL EXAMINATION: VITAL SIGNS: This morning, the pulse is 84, blood pressure is 160/90, the patient's respirations are 18, O2 saturations are 98% on room air. CARDIOPULMONARY: Normal sinus rhythm clinically. LUNGS: Clear. ABDOMEN: Soft. Liver and spleen not palpable. MA[employer] DETECTIVE: He has mild dementia; otherwise the patient's clinical condition is improved. He has poor gait management. MEDICATIONS: The patient will continue all his medications. At this time, the patient is on Aricept 10 mg daily, losartan 100 mg daily, DuoNeb respiratory treatment for chronic obstructive lung disease, aspirin 81 mg daily, Flomax 0.4 mg daily, folic acid 1 mg daily, insulin coverage for diabetes, the patient is on isosorbide mononitrate for coronary artery disease, Lipitor 40 mg daily for cerebrovascular disease and coronary artery disease, metoprolol 25 mg p.o. daily. The patient is on MiraLAX for chronic constipation. The patient takes Renagel for renal failure, Protonix 40 mg daily. The patient is on Xalatan ophthalmic solution 1 drop daily in both eyes. LABORATORY DATA: The patient's lab work is being followed up by the [facility]. PLAN: At this time, he is clinically stable and he is getting his dialysis. Vijay Anton MD BREA
--- NOTE | 2016-11-15 19:01 | PN ---
DATE: 11/15/2016 CARDIOLOGY FOLLOWUP SUBJECTIVE: The patient is in the TCU, comfortable, without shortness of breath, without chest pain. PHYSICAL EXAMINATION: VITAL SIGNS: Blood pressure is 160/91, the heart rate is in the 80s. NECK: Negative JVD. LUNGS: Without rales. HEART: Reveals S1, S2. EXTREMITIES: Without edema. LABORATORY DATA: The hemoglobin is 9.4. Chemistries, BUN and creatinine are 45 and 8.3. IMPRESSION: 1. Renal failure. 2. Non-ST elevation myocardial infarction. 3. Coronary artery disease. 4. Anemia. 5. Diabetes mellitus. 6. Dementia. PLAN: Given these findings, the patient's cardiac status is stable on his present medications and his NSTEMI. The patient is currently for dialysis today. Jamin Dewey MD
[2016-11-15] MEDS: Latanoprost 2.5 ml Opht Soln OU SCH (22:05)
[2016-11-16] MEDS: Albuterol-Ipratrop 3 mg / 0.5 (3 ml) UD IH SCH ×4 (01:41→19:47)
--- NOTE | 2016-11-16 06:50 | CP.PCM.PN ---
<Carlene Diane - Last Filed: 11/16/16 11:16> Subjective - Date & Time of Evaluation Date of Evaluation: 11/16/16 Time of Evaluation: 06:50 - Subjective Subjective: Medicine Progress Note for Catalina Serrano PGY2 Patient seen and examined at bedside. As per nursing, patient was agitated yesterday refusing medications and labs. Upon examination today, patient improved. A&O x 3. He denies CP, SOB, n/v/d, numbness/tingling, fever or chills. Objective - Vital Signs/Intake and Output Vital Signs (last 24 hours): Temp Pulse Resp BP Pulse Ox 98.4 F 84 18 160/91 H 98 11/14/16 16:14 11/14/16 17:43 11/14/16 16:14 11/14/16 17:43 11/14/16 16:14 - Medications Medications: Current Medications Acetaminophen (Tylenol 325mg Tab) 650 mg PO Q6H PRN; Protocol PRN Reason: TEMP>=99.5F Albuterol/Ipratropium (Duoneb 3 Mg/0.5 Mg (3 Ml) Ud) 3 ml IH [id number] FRANCISCO JAVIER PRN Reason: Protocol Last Admin: 11/16/16 01:41 Dose: Not Given Aspirin (Ecotrin) 81 mg PO 0800 FRANCISCO JAVIER PRN Reason: Protocol Last Admin: 11/15/16 12:17 Dose: 81 mg Atorvastatin Calcium (Lipitor) 40 mg PO DIN FRANCISCO JAVIER PRN Reason: Protocol Last Admin: 11/15/16 19:01 Dose: Not Given Donepezil HCl (Aricept) 10 mg PO HS FRANCISCO JAVIER PRN Reason: Protocol Last Admin: 11/15/16 22:04 Dose: Not Given Folic Acid (Folic Acid) 1 mg PO DAILY FRANCISCO JAVIER PRN Reason: Protocol Last Admin: 11/15/16 12:17 Dose: 1 mg Insulin Human Lispro (Humalog Low) 0 units SC ACHS FRANCISCO JAVIER PRN Reason: Protocol Last Admin: 11/15/16 22:04 Dose: Not Given Isosorbide Mononitrate (Imdur) 120 mg PO 0630 FRANCISCO JAVIER PRN Reason: Protocol Last Admin: 11/15/16 07:08 Dose: Not Given Latanoprost (Xalatan Opht) 0 ml OU HS FRANCISCO JAVIER PRN Reason: Protocol Last Admin: 11/15/16 22:05 Dose: Not Given Losartan Potassium (Cozaar) 100 mg PO DAILY FRANCISCO JAVIER PRN Reason: Protocol Last Admin: 11/15/16 12:17 Dose: 100 mg Metoprolol Tartrate (Lopressor) 25 mg PO 0800,1800 FRANCISCO JAVIER PRN Reason: Protocol Last Admin: 11/15/16 19:01 Dose: Not Given Pantoprazole Sodium (Protonix Ec Tab) 40 mg PO 0600 FRANCISCO JAVIER PRN Reason: Protocol Last Admin: 11/15/16 07:08 Dose: Not Given Polyethylene Glycol (Miralax) 17 gm PO BID FRANCISCO JAVIER PRN Reason: Protocol Last Admin: 11/15/16 19:02 Dose: Not Given Sevelamer HCl (Renagel) 800 mg PO 0730,1130,1800 FRANCISCO JAVIER PRN Reason: Protocol Last Admin: 11/15/16 19:02 Dose: Not Given Tamsulosin HCl (Flomax) 0.4 mg PO 1830 FRANCISCO JAVIER PRN Reason: Protocol Last Admin: 11/15/16 19:01 Dose: Not Given Vitamin B Complex/Vit C/Folic Acid (Nephro-Yannick) 1 tab PO DAILY FRANCISCO JAVIER PRN Reason: Protocol Last Admin: 11/15/16 12:18 Dose: 1 tab - Labs Labs: 11/15/16 06:30 11/15/16 06:30 - Constitutional Appears: No Acute Distress - Head Exam Head Exam: ATRAUMATIC, NORMAL INSPECTION, NORMOCEPHALIC - Eye Exam Eye Exam: Normal appearance, PERRL Pupil Exam: NORMAL ACCOMODATION - ENT Exam ENT Exam: Mucous Membranes Moist - Neck Exam Neck Exam: Full ROM - Respiratory Exam Respiratory Exam: Clear to Ausculation Bilateral, NORMAL BREATHING PATTERN. absent: Rales, Rhonchi, Wheezes - Cardiovascular Exam Cardiovascular Exam: REGULAR RHYTHM, +S1, +S2, Murmur. absent: Gallop, Rubs - GI/Abdominal Exam GI & Abdominal Exam: Soft, Normal Bowel Sounds. absent: Rigid, Tenderness, Rebound - Extremities Exam Extremities Exam: Normal Inspection. absent: Calf Tenderness, Pedal Edema - Neurological Exam Neurological Exam: Alert, Awake, CN II-XII Intact, Oriented x3 - Psychiatric Exam Psychiatric exam: Normal Affect, Normal Mood - Skin Skin Exam: Dry, Intact, Normal Color, Warm Assessment and Plan - Assessment and Plan (Free Text) Assessment: This 85Y AA M with PMH CVA, ESRD on HD (MWF), dementia, CAD s/p stent, DM, MVP, GI bleed, gastric cancer who was admitted for NSTEMI, SIRS, AMS and fecal impaction which have resolved. Patient was transferred to TCU for further rehabilitation secondary to deconditioning. Plan: 1. Anemia - Hgb 9.4 - ordered repeat CBC, pt refusing labs at this time - possibly need Aranesp during HD - Will check stool for occult blood - Continue to monitor - No overt signs of bleeding 2. NSTEMI - Pt not a candidate for cath - Medically managed on ASA- no other anticoags due to high bleeding risk - Cardio consulted - recs appreciated - Continue Lipitor 3. Dementia - Neuro consulted- recs appreciated - Continue Aricept 4. ESRD on HD - Continue HD MWF - Continue Renagel, Nephro-yannick, Folic acid - Neprho consulted- recs appreciated 5. DM - Continue ISS - BGM ACHS 6. HTN - Continue Lopressor, Cozaar, Imdur 7. Hx of BPH - Continue Flomax GI ppx: PTX DVT ppx: SCDs, SAMAN stocking - pt high risk for GI bleed Dispo: Continue rehabilitation in TCU. Will be d/c home upon finishing rehab course. Case seen, discussed and reviewed with attending. Catalina Diane PGY2 <Zeyad Nazario - Last Filed: 12/15/16 21:49> Objective - Vital Signs/Intake and Output Vital Signs (last 24 hours): Temp Pulse Resp BP Pulse Ox 98.3 F 74 20 150/80 95 11/17/16 10:25 11/17/16 10:25 11/17/16 10:25 11/17/16 10:25 11/17/16 10:25 - Labs Labs: 11/17/16 06:45 11/17/16 09:00 Attending/Attestation - Attestation I have personally seen and examined this patient.: Yes I have fully participated in the care of the patient.: Yes I have reviewed all pertinent clinical information, including history, physical exam and plan: Yes
[2016-11-16] MEDS: Insulin Lispro (humaLOG) LOW Coverage SC SCH ×4 (08:25→22:09)
[2016-11-16] MEDS: Pantoprazole 40 mg EC Tab PO SCH (08:26)
[2016-11-16] MEDS: Multivitamin Vitamin B Complex (Nephro-Vite) Tab PO SCH (10:32)
[2016-11-16] MEDS: POLYETHYLENE GLYCOL 3350 17 GM/Dose PACKET PO SCH ×2 (10:32→18:25)
--- NOTE | 2016-11-16 13:46 | PN ---
DATE: 11/16/2016 SUBJECTIVE: The patient is comfortable working with physical therapy. No shortness of breath. No chest pain. PHYSICAL EXAMINATION VITAL SIGNS: Blood pressure is 136/71 and the heart rate is in the 80s. NECK: Negative JVD. LUNGS: Without rales. HEART: Reveals S1 and S2. EXTREMITIES: Without edema. LABORATORY DATA: Hemoglobin is 9.4. IMPRESSION 1. Weakness which is better. 2. Recent [id number] myocardial infarction. 3. Coronary artery disease. 4. Renal insufficiency. 5. Diabetes mellitus. 6. Dementia. PLAN: Given these findings, the patient is doing better. I have encouraged him to continue with physical therapy. He apparently is making attempts to corporate. Jamin Dewey MD
--- NOTE | 2016-11-16 14:26 | PN ---
DATE: SUBJECTIVE: Patient is currently seen lying comfortably in bed in the TCU. He anticipates being discharged tomorrow after dialysis. He has done well with rehabilitation status post his acute myocardial infarction. MEDICATIONS: Medication list reviewed. Patient is currently on Aranesp, Aricept, Cozaar, DuoNeb, Ecotrin, Flomax, folic acid, insulin, Imdur, Lipitor, Lopressor, MiraLax, Nephro-Jaylin, Protonix, Renagel, Tylenol p.r.n., eyedrops. PHYSICAL EXAMINATION: VITAL SIGNS: Blood pressure 155/85, temperature 97.1, respiratory rate 18 with a pulse of 71. HEENT: Shows him to be normocephalic, atraumatic. Conjunctiva are pink. Sclerae are nonicteric. NECK: Supple. No neck vein distention. CHEST: Clear to auscultation and percussion. No rales, no rhonchi, no wheezing. CARDIOVASCULAR: Shows regular rate and rhythm without audible murmurs, rubs, or gallops. ABDOMEN: Soft, bowel sounds normal, no rebound, no guarding, no masses. EXTREMITIES: Show no lower extremity cyanosis, clubbing or edema. Positive left extremity AV fistula, positive thrill, positive bruit. LABORATORY DATA AND IMAGING: Laboratory work done predialysis yesterday showed a CBC, white blood cell count 10.5, hemoglobin slightly lower at 9.4 with platelet count of 214,000. Chemistry showed normal electrolytes, BUN 45 with creatinine of 8.3, calcium is 8.3, phosphorus is 8.8, magnesium 1.9. Albumin is 3.1 and stable. ASSESSMENT: 1. Status post acute myocardial infarction, non-ST elevation myocardial infarction. Patient has been followed by cardiology post CA. He has history of ASHD status post PTCA with Barium metal stent placement earlier this year. 2. End-stage renal disease, patient is currently stable on Tuesday, Tuesday, Tuesday dialysis and the plan is for dialysis in the morning tomorrow prior to discharge home later today. He will likely continue outpatient dialysis in the outpatient center on Tuesday. 3. History of altered mental status and dementia. Patient appears to be stable at present medical therapy. 4. History of hypertension. Blood pressure control is acceptable. 5. History of secondary hyperparathyroidism. Calcium and phosphorus levels are controlled. Patient will continue binder therapy and a renal diet. PLAN: 1. Continue Tuesday, Tuesday, and Tuesday dialysis. 2. Followup with cardiology as scheduled. 3. Continue rehabilitation at [facility]. 4. Tentative discharge tomorrow in the afternoon, plus the morning dialysis in the inpatient unit. William Erickson MD
--- NOTE | 2016-11-16 14:43 | CP.PCM.PN ---
Subjective - Date & Time of Evaluation Date of Evaluation: 11/16/16 Time of Evaluation: 11:40 - Subjective Subjective: Comfortable in bed, not in distress, afebrile, no fevers. Objective - Vital Signs/Intake and Output Vital Signs (last 24 hours): Temp Pulse Resp BP Pulse Ox 98.4 F 80 18 136/71 98 11/14/16 16:14 11/16/16 08:40 11/14/16 16:14 11/16/16 08:40 11/14/16 16:14 - Medications Medications: Current Medications Acetaminophen (Tylenol 325mg Tab) 650 mg PO Q6H PRN; Protocol PRN Reason: TEMP>=99.5F Albuterol/Ipratropium (Duoneb 3 Mg/0.5 Mg (3 Ml) Ud) 3 ml IH [id number] FRANCISCO JAVIER PRN Reason: Protocol Last Admin: 11/16/16 07:23 Dose: Not Given Aspirin (Ecotrin) 81 mg PO 0800 FRANCISCO JAVIER PRN Reason: Protocol Last Admin: 11/16/16 08:39 Dose: 81 mg Atorvastatin Calcium (Lipitor) 40 mg PO DIN FRANCISCO JAVIER PRN Reason: Protocol Last Admin: 11/15/16 19:01 Dose: Not Given Donepezil HCl (Aricept) 10 mg PO HS FRANCISCO JAVIER PRN Reason: Protocol Last Admin: 11/15/16 22:04 Dose: Not Given Folic Acid (Folic Acid) 1 mg PO DAILY FRANCISCO JAVIER PRN Reason: Protocol Last Admin: 11/15/16 12:17 Dose: 1 mg Insulin Human Lispro (Humalog Low) 0 units SC ACHS FRANCISCO JAVIER PRN Reason: Protocol Last Admin: 11/16/16 08:25 Dose: Not Given Isosorbide Mononitrate (Imdur) 120 mg PO 0630 FRANCISCO JAVIER PRN Reason: Protocol Last Admin: 11/16/16 08:25 Dose: Not Given Latanoprost (Xalatan Opht) 0 ml OU HS FRANCISCO JAVIER PRN Reason: Protocol Last Admin: 11/15/16 22:05 Dose: Not Given Losartan Potassium (Cozaar) 100 mg PO DAILY FRANCISCO JAVIER PRN Reason: Protocol Last Admin: 11/15/16 12:17 Dose: 100 mg Metoprolol Tartrate (Lopressor) 25 mg PO 0800,1800 FRANCISCO JAVIER PRN Reason: Protocol Last Admin: 11/16/16 08:40 Dose: 25 mg Pantoprazole Sodium (Protonix Ec Tab) 40 mg PO 0600 FRANCISCO JAVIER PRN Reason: Protocol Last Admin: 11/16/16 08:26 Dose: Not Given Polyethylene Glycol (Miralax) 17 gm PO BID FRANCISCO JAVIER PRN Reason: Protocol Last Admin: 11/15/16 19:02 Dose: Not Given Sevelamer HCl (Renagel) 800 mg PO 0730,1130,1800 FRANCISCO JAVIER PRN Reason: Protocol Last Admin: 11/16/16 08:40 Dose: 800 mg Tamsulosin HCl (Flomax) 0.4 mg PO 1830 FRANCISCO JAVIER PRN Reason: Protocol Last Admin: 11/15/16 19:01 Dose: Not Given Vitamin B Complex/Vit C/Folic Acid (Nephro-Jaylin) 1 tab PO DAILY FRANCISCO JAVIER PRN Reason: Protocol Last Admin: 11/15/16 12:18 Dose: 1 tab - Labs Labs: 11/15/16 06:30 11/15/16 06:30 - Constitutional Appears: Non-toxic, No Acute Distress - Head Exam Head Exam: NORMAL INSPECTION - ENT Exam ENT Exam: Mucous Membranes Moist - Neck Exam Neck Exam: absent: Meningismus - Respiratory Exam Respiratory Exam: Decreased Breath Sounds - Cardiovascular Exam Cardiovascular Exam: +S1, +S2 - GI/Abdominal Exam GI & Abdominal Exam: Soft. absent: Tenderness Assessment and Plan - Assessment and Plan (Free Text) Plan: Assessment S/P Systemic Inflammatory Response Syndrome, consider due to NSTEMI and sepsis from HCAP - S/P treatment for HCAP dementia history of sepsis from healthcare-associated pneumonia on top of non-ST elevation [place] with acute congestive heart failure, clinically improved and S/P treatment history of GI bleeding ESRD on HD cornoary artery disease Cerebrovascular accident Gastric cancer Mitral valve prolapse Plan continue to monitor off antibiotics since he is at risk for hospital-acquired infections
--- NOTE | 2016-11-16 21:00 | PN ---
DATE: 11/16/2016 LOCATION: The patient is seen lying in Room 321, bed 1. SUBJECTIVE: The patient was seen earlier by the biomedical service engineer. The patient was found to be slightly confused, but upon my examination, the patient is seen lying in the bed. The patient is alert, awake, and oriented to person and place. Disoriented to year, date and month. The patient is able to say my name and his name and able to say where he is right now, [facility]. The patient follows simple commands. OBJECTIVE: VITAL SIGNS: T-max afebrile, heart rate 70s and 82 to 84 beats per minute, blood pressure 134/74 and 128/78, respirations 18 to 20, O2 sat 96%, 97%, 95%. HEENT: Head examination; normocephalic and atraumatic. HEENT examination shows pinkish pale conjunctivae. Anicteric sclerae. No oropharyngeal lesion. Soft carotid bruit. CHEST: Kyphosis. LUNGS: Examination shows occasional rhonchi, upper lung chaney. CARDIOVASCULAR: S1 and S2, regular rhythm. Questionable soft systolic murmur, left second intercostal space, left sternal border. ABDOMEN: Soft. Positive bowel sounds. GENITALIA: Male. RECTAL: Deferred. EXTREMITIES: Shows no pitting, no calf tenderness, and no Homans signs. Positive left upper extremity AV fistula. Positive thrill. Gait examination is not tested. MUSCULOSKELETAL: As per the BMI. NEUROLOGIC: The patient is alert, awake, oriented x2, follow simple commands. Motor strength is 5/5 in upper and lower extremity. Gait examination is not tested. LABORATORY DATA: The patient's stat lab work was ordered, which shows normal WBC, hemoglobin/hematocrit 9.7/30, platelets are within normal limits. Chemistry examination shows elevated BUN and creatinine, consistent with end-stage renal disease, hemodialysis dependent.. Fingerstick blood sugar was reviewed. IMPRESSION AND PLAN: 1. Gait dysfunction. 2. Deconditioning. 3. Acute exacerbation of dementia with encephalopathy and altered mental status and episodic confusion. 4. Anemia with decreasing hemoglobin and hematocrit. 5. End-stage renal disease, hemodialysis dependent, three times a week via the left upper extremity arteriovenous fistula. 6. Status post non-ST elevation myocardial infarction. 7. History of gastrointestinal bleeding. 8. History of dementia. 9. Hypertension. 10. Dyslipidemia. 11. Diabetic neuropathy and diabetic gastroparesis. 12. History of constipation. 13. Secondary hyperparathyroidism. 14. Gait dysfunction. 1. Acute non-ST elevation myocardial infarction. 2. Deconditioning. 3. Gait dysfunction. 4. End-stage renal disease, hemodialysis dependent. 5. Insulin requiring diabetes mellitus. 6. Anemia. 7. Dementia. 8. History of gastrointestinal bleeding. 9. History of dementia. 10. History of poor compliance. 1. Gait dysfunction. 2. Deconditioning. 3. Acute non-ST elevation myocardial infarction with elevated troponin. 4. Acute toxic metabolic encephalopathy and altered mental status and transient confusion with behavioral disturbances. 5. Normocytic anemia. 6. Leukocytosis. 7. Type 1 insulin requiring diabetes mellitus well controlled. 8. History of coronary artery disease, non ST elevation myocardial infarction, angioplasty and stent placement. 9. End-stage renal disease, hemodialysis dependent via the left upper extremity AV fistula 3 times a week. 10. History of dementia. 11. Constipation. 12. Fecal retention, fecal stasis. 13. History of dyslipidemia. 14. History of secondary hyperparathyroidism. 15. History of poor compliance. 16. History of gastric carcinoma. 17. History of recurrent gastrointestinal bleeding. 1. Deconditioning. 2. Gait dysfunction. 3. Encephalopathy. 4. Episodic confusional state. 5. End-stage renal disease, hemodialysis dependent, three days a week via the left upper extremity AV fistula. 6. Insulin-requiring very well controlled diabetes mellitus. 7. Dementia with acute exacerbation. 8. Poor compliance. 9. Acute non-ST elevation myocardial infarction with elevated troponin and electrocardiogram changes. 10. Bifascicular block with right bundle-branch block, left anterior hemiblock and lateral ischemic changes on the electrocardiogram. 11. Coronary artery disease. 12. History of angioplasty. 13. Dementia. 14. Secondary hyperparathyroidism. 15. Anemia. 16. Leukocytosis with granulocytosis and bandemia. 1. Acute non-ST elevation myocardial infarction and acute coronary syndrome. 2. Hypertension. 3. Dementia. 4. Leukocytosis with granulocytosis and bandemia. 5. Normocytic anemia. 6. End-stage renal disease, hemodialysis dependent. 7. Insulin requiring type 1 diabetes mellitus, well controlled with hemoglobin A1c of 5.4. 8. History of poor compliance. 9. Fecal impaction. 10. Fecal stasis. 11. Constipation. 12. Cholelithiasis. 13. Non-obstructed right inguinal hernia containing ileum. 14. Left inguinal hernia containing bladder. 15. Interstitial lung disease with bibasilar atelectasis. 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 17. Right bundle-branch block. 18. Bifascicular block. 19. End-stage renal disease, hemodialysis dependent, three times a week via the left upper extremity AV fistula. 20. Coronary artery disease with acute non-ST elevation myocardial infarction. 21. Systemic inflammatory response syndrome. 22. History of healthcare-associated pneumonia. 23. History of gastrointestinal bleeding. 24. Deconditioning. 25. Gait dysfunction. 1. Non ST-elevation myocardial infarction with elevated troponin. 2. Bifascicular block with right bundle branch block and left anterior hemiblock with lateral chronic ischemic changes. 3. History of gastrointestinal bleeding. 4. Gait dysfunction. 5. Deconditioning. 6. Status post uncontrolled hypertension. 7. Status post high-grade fever. 8. Leukocytosis with granulocytosis and bandemia. 9. Normocytic anemia. 10. End-stage renal disease, hemodialysis-dependent via the left upper extremity arteriovenous fistula. 11. Well controlled type 1 insulin-requiring diabetes mellitus with hemoglobin A1c of 5.4. 12. Hyperprolactinemia with elevated procalcitonin of greater than 160. 13. B positive blood type. 14. Acute coronary syndrome with acute non ST-elevation myocardial infarction and lateral chronic ischemia and bifascicular block with right bundle branch block and left anterior hemiblock. 15. Diabetic gastroparesis. 16. Mild to moderate oropharyngeal dysphagia with risk for aspiration, improving and resolving. 17. Systemic inflammatory response syndrome. 18. Possible sepsis with healthcare-associated pneumonia. 19. History of recurrent gastrointestinal bleeding. 20. Microvascular ischemic disease of the brain. 21. Small hiatal hernia. 22. Bibasilar pulmonary opacities and interstitial markings. 23. Calcified cholelithiasis with partially distended gallbladder. 24. Bilateral adrenal gland thickening. 25. Bilateral renal cyst. 26. Nonobstructive right inguinal hernia. 27. Fecal retention and fecal stasis in the descending colon and sigmoid with fecal bolus in the rectum. 28. Mild gallbladder wall thickening. 29. Prostatomegaly. 30. Degenerative joint disease of the spine. 31. Umbilical hernia. 32. Left inguinal hernia containing bladder. 33. Non-obstructing right inguinal hernia containing distal ileum. 34. Fecal impaction, retention, stasis. 35. Left anterior hemiblock, right bundle-branch block, bifascicular block with lateral coronary ischemic changes. 36. History of poor compliance. 37. Acute coronary syndrome. 38. Dementia. 39. Prostatic hypertrophy. 40. Constipation. 41. Gastroesophageal reflux. 1. High-grade fever of 102 degrees Fahrenheit. 2. Hypertension. 3. Tachypnea. 4. Tachycardia. 5. Hypertension. 6. Leukocytosis with granulocytosis and bandemia. 7. Normocytic anemia. 8. Acute non-ST elevation myocardial infraction with elevated troponin. 9. End-stage renal disease, hemodialysis dependent. 10. Hypercalcitoninemia. 11. 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 12. Chronic microvascular ischemic disease of the brain. 13. Bifascicular block with right bundle-branch block, left anterior hemiblock, and anterolateral ST changes. 14. Fever. 1. Acute non-ST elevation mycoardial infraction with elevated CPK and elevated troponin with history of coronary artery disease. 2. Transient uncontrolled hypertension. 3. Encephalopathy. 4. Acute exacerbation of dementia. 5. Leukocytosis with granulocytosis and bandemia. 6. Normocytic anemia. 7. End-stage renal disease, hemodialysis dependent three times a week via the left upper extremity AV fistula. 8. Transaminitis. 9. 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 10. Bifascicular block with left anterior hemiblock, right bundle branch block. 11. Systemic inflammatory response syndrome. 12. Acute confusional state with history of dementia. 13. Moderate oropharyngeal dysphagia with risk for aspiration. 1. Nausea and vomiting, etiology undetermined. 2. Acute non-ST elevation mycoardial infraction with elevated troponin. 3. Questionable anterolateral coronary ischemia with ST depression in V1-V5. 4. Right bundle-branch block, left anterior hemiblock and bifascicular block. 5. Fever etiology, undetermined. 6. Questionable systemic inflammatory response syndrome. 7. Hiatal hernia. 8. Bibasilar opacities questionable interstitial marking versus pneumonia. 9. Chololithiasis. 10. Bilateral renal cyst. 11. Right inguinal nonobstructive hernia. 12. Fecal retention and stasis and constipation. 13. Bladder wall thickening. 14. Prostatomegaly. 15. Degenerative joint disease. 16. Left inguinal hernia containing bladder. 17. Nonobstructive right inguinal hernia containing distal ileum. 18. Encephalopathy with confusion. 19. Bifascicular block, right bundle-branch block and left anterior hemiblock. 20. Chronic ischemia. 21. History of poor compliance. 22. History of gastrointestinal bleeding. 23. Leukocytosis, granulocytosis and bandemia. 24. End-stage renal disease, hemodialysis dependent. 25. Acute non-ST elevation myocardial infarction with elevated troponin. 26. History of gastrointestinal bleeding. 27. History of dementia. 28. History of poor compliance. 29. Episodic nausea and vomiting, questionable diabetic gastroparesis. 30. Moderate oropharyngeal dysphagia with risk for aspiration (resolving). PLAN: At this time, the patient has been ordered Aranesp on dialysis days. The patient has been ordered discussed with the biomedical service engineer. The patient has been ordered repeat CBC every 48 hours. Stool for occult blood ordered. The patient will be continued on the medications as per the MAR with physical therapy, occupational therapy, ambulation therapy, out of bed, gait training. The patient is to continue on TCU till the completion of the TCU stay. Dictated and electronically signed, not read. Zeyad Nazario MD MTDD
[2016-11-16] MEDS: Latanoprost 2.5 ml Opht Soln OU SCH ×2 (22:03→22:08)
[2016-11-17] MEDS: Albuterol-Ipratrop 3 mg / 0.5 (3 ml) UD IH SCH ×3 (01:13→13:09)
[2016-11-17] MEDS: Pantoprazole 40 mg EC Tab PO SCH (05:57)
[2016-11-17] MEDS: Insulin Lispro (humaLOG) LOW Coverage SC SCH ×2 (06:58→11:47)
[2016-11-17 07:10] LABS: BASO # 0.02 K/mm3 (0.0-2.0); BASO % 0.3 % (0.0-3.0); EOS # 0.1 (0.0-0.7); EOS % 1.8 % (1.5-5.0); GRAN # 4.3 (1.4-6.5); HEMATOCRIT 29.2 % (42.0-52.0); LYMPH # 2.2 (1.2-3.4); LYMPH % 27.7 % (22.0-35.0); MEAN CELL VOLUME 88.2 fl (80.0-105.0); MEAN CORPUSCULAR HEMOGLOBIN 28.4 pg (25.0-35.0); MEAN CORPUSCULAR HGB CONC 32.2 g/dl (31.0-37.0); MEAN PLATELET VOLUME 11.1 fl (7.0-11.0); MONO # 1.2 (0.1-0.6); MONO % 15.2 % (1.0-6.0); RED CELL DISTRIBUTION WIDTH 16.6 % (11.5-14.5); WHITE BLOOD COUNT 7.8 10^3/ul (4.5-11.0)
[2016-11-17 09:25] LABS: BILIRUBIN,TOTAL 0.3 mg/dL (0.2-1.3); CALCIUM 8.4 mg/dL (8.4-10.5); MAGNESIUM 2.1 mg/dL (1.7-2.2); PHOSPHOROUS 3.2 mg/dL (2.5-4.5); TOTAL PROTEIN 6.7 g/dL (5.8-8.3)
[2016-11-17] MEDS ORDERED: Darbepoetin Alfa 40 mcg/ml Inj IVP SCH (10:00)
[2016-11-17 10:26] VITALS: BP 150/80; PULSE 74; RESP 20; TEMP 98.3; O2SAT 95
[2016-11-17] MEDS: POLYETHYLENE GLYCOL 3350 17 GM/Dose PACKET PO SCH (10:30)
--- NOTE | 2016-11-17 10:39 | CP.PCM.DIS ---
<MireilleKenyetta - Last Filed: 11/17/16 11:07> Provider - Provider Date of Admission: 11/09/16 13:45 Attending physician: Zeyad Nazario MD Primary care physician: Zeyad Nazario MD Consults: Renal-[facility] Cardio-[facility] GI-[facility] Neuro-A Jose ID-Johnathon Time Spent in preparation of Discharge (in minutes): 35 Hospital Course - Lab Results Lab Results: Most Recent Lab Values WBC 7.8 10^3/ul (4.5-11.0) D 11/17/16 06:45 RBC 3.31 10^6/uL (3.5-6.1) L 11/17/16 06:45 Hgb 9.4 g/dL (14.0-18.0) L 11/17/16 06:45 Hct 29.2 % (42.0-52.0) L 11/17/16 06:45 MCV 88.2 fl (80.0-105.0) 11/17/16 06:45 MCH 28.4 pg (25.0-35.0) 11/17/16 06:45 MCHC 32.2 g/dl (31.0-37.0) 11/17/16 06:45 RDW 16.6 % (11.5-14.5) H 11/17/16 06:45 Plt Count 210 10^3/uL (120.0-450.0) 11/17/16 06:45 MPV 11.1 fl (7.0-11.0) H 11/17/16 06:45 Gran % 55.0 % (50.0-68.0) 11/17/16 06:45 Lymph % (Auto) 27.7 % (22.0-35.0) 11/17/16 06:45 Sevier % (Auto) 15.2 % (1.0-6.0) H 11/17/16 06:45 Eos % (Auto) 1.8 % (1.5-5.0) 11/17/16 06:45 Baso % (Auto) 0.3 % (0.0-3.0) 11/17/16 06:45 Gran # 4.30 (1.4-6.5) 11/17/16 06:45 Lymph # 2.2 (1.2-3.4) 11/17/16 06:45 Sevier # 1.2 (0.1-0.6) H 11/17/16 06:45 Eos # 0.1 (0.0-0.7) 11/17/16 06:45 Baso # 0.02 K/mm3 (0.0-2.0) 11/17/16 06:45 Sodium 137 mmol/L (132-148) 11/17/16 09:00 Potassium 4.0 mmol/L (3.6-5.0) 11/17/16 09:00 Chloride 99 mmol/L (98-107) 11/17/16 09:00 Carbon Dioxide 26 mmol/L (21-33) 11/17/16 09:00 Anion Gap 16 (10-20) 11/17/16 09:00 BUN 38 mg/dL (7-21) H 11/17/16 09:00 Creatinine 7.0 mg/dL (0.5-1.4) H 11/17/16 09:00 Est GFR ( Amer) 9 11/17/16 09:00 Est GFR (Non-Af Amer) 8 11/17/16 09:00 POC Glucose (mg/dL) 128 mg/dL (65-110) H 11/17/16 05:50 Random Glucose 112 mg/dL (70-110) H 11/17/16 09:00 Calcium 8.4 mg/dL (8.4-10.5) 11/17/16 09:00 Phosphorus 3.2 mg/dL (2.5-4.5) 11/17/16 09:00 Magnesium 2.1 mg/dL (1.7-2.2) 11/17/16 09:00 Total Bilirubin 0.3 mg/dL (0.2-1.3) 11/17/16 09:00 AST 23 U/L (15-59) 11/17/16 09:00 ALT 21 U/L (7-56) 11/17/16 09:00 Alkaline Phosphatase 72 U/L (38-133) 11/17/16 09:00 Total Protein 6.7 g/dL (5.8-8.3) 11/17/16 09:00 Albumin 3.3 g/dL (3.0-4.8) 11/17/16 09:00 Globulin 3.4 gm/dL 11/17/16 09:00 Albumin/Globulin Ratio 1.0 (1.1-1.8) L 11/17/16 09:00 - Hospital Course Hospital Course: 85YO Male w/PMH sig for CAD s/p stent, CVA, ESRD on HD (MWF), CVA, dementia, DM, MVP, GI bleed, gastric cancer, recent NSTEMI, SIRS, AMS and fecal impaction admitted to TCU s/p hospitalization for previously stated recent health problems requiring re-conditioning and continued rehabilitation. Pt maintained on medical management for NSTEMI. Pt maintained on a bowel regimen for fecal impaction, continued on HD for ESRD. Pt worked with PT during TCU stay, continued to improve. Pt stable and ready for discharge home at this time, pt to follow up with Dr. Nazario in his office within 1 week after discharge. Pt to continue all medications as per updated EMR - note- there has been a change to diabetic medication regimen. Diagnoses: NSTEMI, Alerted mental status, deconditioning, fecal impaction, CAD s /p stent, CVA, ESRD on HD (MWF), CVA, dementia, DM, MVP, GI bleed, gastric cancer, SIRS - Date & Time of H&P Date of H&P: 11/09/16 Time of H&P: 15:04 Discharge Exam - Head Exam Head Exam: ATRAUMATIC, NORMAL INSPECTION, NORMOCEPHALIC - Eye Exam Eye Exam: EOMI, Normal appearance - ENT Exam ENT Exam: Mucous Membranes Moist, Normal Exam - Neck Exam Neck exam: Normal Inspection - Respiratory Exam Respiratory Exam: Clear to PA & Lateral, NORMAL BREATHING PATTERN, UNREMARKABLE - Cardiovascular Exam Cardiovascular Exam: REGULAR RHYTHM, +S1, +S2 - GI/Abdominal Exam GI & Abdominal Exam: Normal Bowel Sounds, Soft, Unremarkable. absent: Tenderness - Extremities Exam Extremities exam: normal inspection (LUE with AVF, palpable thrill, audible bruit over distal aspect ) - Neurological Exam Neurological exam: Alert, CN II-XII Intact, Oriented x3 - Psychiatric Exam Psychiatric exam: Normal Affect, Normal Mood - Skin Skin Exam: Dry, Intact, Normal Color Discharge Plan - Discharge Medications Prescriptions: Insulin Detemir [Levemir] 5 units SC DAILY #100 vial - Follow Up Plan Condition: STABLE Disposition: DISCHARGED TO HOME CARE Instructions: Myocardial Infarction (GEN), Diabetic Hypoglycemia (GEN), Fall Prevention for Older Adults (GEN), Acute Nausea and Vomiting (GEN) Additional Instructions: Please follow up with Dr. Nazario in 1 week after discharge from hospital. Continue medications as per updated EMR. Please return to hospital if you have a recurrence of symptoms. Referrals: Zeyad Nazario MD [Primary Care Provider] - <Zeyad Nazario - Last Filed: 12/15/16 21:54> Provider - Provider Date of Admission: 11/09/16 13:45 Attending physician: Zeyad Nazario MD Primary care physician: Zeyad Nazario MD Hospital Course - Lab Results Lab Results: Most Recent Lab Values WBC 7.8 10^3/ul (4.5-11.0) D 11/17/16 06:45 RBC 3.31 10^6/uL (3.5-6.1) L 11/17/16 06:45 Hgb 9.4 g/dL (14.0-18.0) L 11/17/16 06:45 Hct 29.2 % (42.0-52.0) L 11/17/16 06:45 MCV 88.2 fl (80.0-105.0) 11/17/16 06:45 MCH 28.4 pg (25.0-35.0) 11/17/16 06:45 MCHC 32.2 g/dl (31.0-37.0) 11/17/16 06:45 RDW 16.6 % (11.5-14.5) H 11/17/16 06:45 Plt Count 210 10^3/uL (120.0-450.0) 11/17/16 06:45 MPV 11.1 fl (7.0-11.0) H 11/17/16 06:45 Gran % 55.0 % (50.0-68.0) 11/17/16 06:45 Lymph % (Auto) 27.7 % (22.0-35.0) 11/17/16 06:45 Sevier % (Auto) 15.2 % (1.0-6.0) H 11/17/16 06:45 Eos % (Auto) 1.8 % (1.5-5.0) 11/17/16 06:45 Baso % (Auto) 0.3 % (0.0-3.0) 11/17/16 06:45 Gran # 4.30 (1.4-6.5) 11/17/16 06:45 Lymph # 2.2 (1.2-3.4) 11/17/16 06:45 Sevier # 1.2 (0.1-0.6) H 11/17/16 06:45 Eos # 0.1 (0.0-0.7) 11/17/16 06:45 Baso # 0.02 K/mm3 (0.0-2.0) 11/17/16 06:45 Sodium 137 mmol/L (132-148) 11/17/16 09:00 Potassium 4.0 mmol/L (3.6-5.0) 11/17/16 09:00 Chloride 99 mmol/L (98-107) 11/17/16 09:00 Carbon Dioxide 26 mmol/L (21-33) 11/17/16 09:00 Anion Gap 16 (10-20) 11/17/16 09:00 BUN 38 mg/dL (7-21) H 11/17/16 09:00 Creatinine 7.0 mg/dL (0.5-1.4) H 11/17/16 09:00 Est GFR ( Amer) 9 11/17/16 09:00 Est GFR (Non-Af Amer) 8 11/17/16 09:00 POC Glucose (mg/dL) 185 mg/dL (65-110) H 11/17/16 11:22 Random Glucose 112 mg/dL (70-110) H 11/17/16 09:00 Calcium 8.4 mg/dL (8.4-10.5) 11/17/16 09:00 Phosphorus 3.2 mg/dL (2.5-4.5) 11/17/16 09:00 Magnesium 2.1 mg/dL (1.7-2.2) 11/17/16 09:00 Total Bilirubin 0.3 mg/dL (0.2-1.3) 11/17/16 09:00 AST 23 U/L (15-59) 11/17/16 09:00 ALT 21 U/L (7-56) 11/17/16 09:00 Alkaline Phosphatase 72 U/L (38-133) 11/17/16 09:00 Total Protein 6.7 g/dL (5.8-8.3) 11/17/16 09:00 Albumin 3.3 g/dL (3.0-4.8) 11/17/16 09:00 Globulin 3.4 gm/dL 11/17/16 09:00 Albumin/Globulin Ratio 1.0 (1.1-1.8) L 11/17/16 09:00 Attending/Attestation - Attestation I have personally seen and examined this patient.: Yes I have fully participated in the care of the patient.: Yes I have reviewed all pertinent clinical information, including history, physical exam and plan: Yes
[2016-11-17] MEDS: Multivitamin Vitamin B Complex (Nephro-Vite) Tab PO SCH (11:42)
[2016-11-17] MEDS ORDERED: Darbepoetin Alfa 40 mcg/ml Inj SC ONE (12:36)
--- NOTE | 2016-11-17 15:32 | CP.PCM.PN ---
Subjective - Date & Time of Evaluation Date of Evaluation: 11/17/16 Time of Evaluation: 10:50 - Subjective Subjective: Comfortable in bed, not in distress, afebrile. Objective - Vital Signs/Intake and Output Vital Signs (last 24 hours): Temp Pulse Resp BP Pulse Ox 97.1 F L 64 18 138/78 97 11/16/16 10:26 11/16/16 18:25 11/16/16 10:26 11/16/16 18:25 11/16/16 10:26 - Medications Medications: Current Medications Acetaminophen (Tylenol 325mg Tab) 650 mg PO Q6H PRN; Protocol PRN Reason: TEMP>=99.5F Albuterol/Ipratropium (Duoneb 3 Mg/0.5 Mg (3 Ml) Ud) 3 ml IH Q6QTEPB FRANCISCO JAVIER PRN Reason: Protocol Last Admin: 11/17/16 07:26 Dose: Not Given Aspirin (Ecotrin) 81 mg PO 0800 FRANCISCO JAVIER PRN Reason: Protocol Last Admin: 11/16/16 08:39 Dose: 81 mg Atorvastatin Calcium (Lipitor) 40 mg PO DIN FRANCISCO JAVIER PRN Reason: Protocol Last Admin: 11/16/16 18:24 Dose: 40 mg Darbepoetin Julio (Aranesp) 40 mcg IVP MWF FRANCISCO JAVIER Donepezil HCl (Aricept) 10 mg PO HS FRANCISCO JAVIER PRN Reason: Protocol Last Admin: 11/16/16 22:03 Dose: 10 mg Folic Acid (Folic Acid) 1 mg PO DAILY FRANCISCO JAVIER PRN Reason: Protocol Last Admin: 11/16/16 10:32 Dose: 1 mg Insulin Human Lispro (Humalog Low) 0 units SC ACHS FRANCISCO JAVIER PRN Reason: Protocol Last Admin: 11/17/16 06:58 Dose: Not Given Isosorbide Mononitrate (Imdur) 120 mg PO 0630 FRANCISCO JAVIER PRN Reason: Protocol Last Admin: 11/17/16 05:57 Dose: Not Given Latanoprost (Xalatan Opht) 0 ml OU HS FRANCISCO JAVIER PRN Reason: Protocol Last Admin: 11/16/16 22:08 Dose: Not Given Losartan Potassium (Cozaar) 100 mg PO DAILY FRANCISCO JAVIER PRN Reason: Protocol Last Admin: 11/16/16 10:31 Dose: 100 mg Metoprolol Tartrate (Lopressor) 25 mg PO 0800,1800 FRANCISCO JAVIER PRN Reason: Protocol Last Admin: 11/16/16 18:25 Dose: 25 mg Pantoprazole Sodium (Protonix Ec Tab) 40 mg PO 0600 FRANCISCO JAVIER PRN Reason: Protocol Last Admin: 11/17/16 05:57 Dose: Not Given Polyethylene Glycol (Miralax) 17 gm PO BID FRANCISCO JAVIER PRN Reason: Protocol Last Admin: 11/16/16 18:25 Dose: Not Given Sevelamer HCl (Renagel) 800 mg PO 0730,1130,1800 FRANCISCO JAVIER PRN Reason: Protocol Last Admin: 11/16/16 18:26 Dose: 800 mg Tamsulosin HCl (Flomax) 0.4 mg PO 1830 FRANCISCO JAVIER PRN Reason: Protocol Last Admin: 11/16/16 18:24 Dose: 0.4 mg Vitamin B Complex/Vit C/Folic Acid (Nephro-Jaylin) 1 tab PO DAILY FRANCISCO JAVIER PRN Reason: Protocol Last Admin: 11/16/16 10:32 Dose: 1 tab - Labs Labs: 11/17/16 06:45 11/15/16 06:30 - Constitutional Appears: Non-toxic, No Acute Distress - Head Exam Head Exam: NORMAL INSPECTION - Neck Exam Neck Exam: absent: Meningismus - Respiratory Exam Respiratory Exam: Decreased Breath Sounds - Cardiovascular Exam Cardiovascular Exam: +S1, +S2 - GI/Abdominal Exam GI & Abdominal Exam: Soft. absent: Tenderness Assessment and Plan - Assessment and Plan (Free Text) Plan: Assessment S/P Systemic Inflammatory Response Syndrome, consider due to NSTEMI and sepsis from HCAP - S/P treatment for HCAP dementia history of sepsis from healthcare-associated pneumonia on top of non-ST elevation VT with acute congestive heart failure, clinically improved and S/P treatment history of GI bleeding ESRD on HD cornoary artery disease Cerebrovascular accident Gastric cancer Mitral valve prolapse Plan continue to monitor off antibiotics since he is at risk for healthcare- associated infections
--- NOTE | 2016-11-17 17:55 | PN ---
DATE: SUBJECTIVE: The patient has just returned from his morning dialysis. 1.5 L of fluid were removed. The patient is entirely comfortable. He is being discharged later today. MEDICATIONS: Medication were reviewed. The patient is on Aranesp with dialysis, Aricept, Cozaar, DuoNeb, Ecotrin, Flomax, folic acid, insulin, Imdur, Lipitor, Lopressor, MiraLax, Nephro-Jaylin, Protonix, Renagel, p.r.n. Tylenol, and eyedrops. OBJECTIVE: VITAL SIGNS: Blood pressure 150/80, temperature 98.3, respiratory rate 20 with a pulse of 74. HEENT: Normocephalic, atraumatic. Conjunctivae are pink. Sclerae are nonicteric. NECK: Supple. No neck vein distention. CHEST: Clear to auscultation and percussion. No rales, no rhonchi, no wheezing. CARDIOVASCULAR: Shows regular rate and rhythm without audible murmurs, rubs, or gallops. ABDOMEN: Soft, bowel sounds normal, no rebound, no guarding, no masses. EXTREMITIES: Show no lower extremity edema. Positive left upper extremity AV fistula, positive thrill, positive bruit. LABORATORY DATA AND IMAGING: CBC: White blood cell count today 7.8, hemoglobin 9.4 with a platelet count of 210,000. Chemistry showed normal electrolytes, BUN 38 with a creatinine of 7.0. Glucose 112. Calcium is 8.4, phosphorus 3.2, and magnesium 2.1. Albumin is 3.3. ASSESSMENT: 1. Status post acute myocardial infarction, non-ST elevation myocardial infarction. Patient has a history of arteriosclerotic heart disease status post percutaneous transluminal coronary angioplasty and bare metal stent earlier this year. 2. History of end-stage renal disease. Patient is currently stable on Tuesday, Tuesday, Tuesday dialysis. He will return to outpatient dialysis at [facility] on Tuesday. 3. History of altered mental status and dementia, currently stable on present medical therapy. 4. History of hypertension. Blood pressure controlled on current medical therapy. 5. History of secondary hyperparathyroidism. Calcium and phosphorus levels are within normal range. Patient will continue binder therapy and/or renal diet. PLAN: 1. The patient will receive his Aranesp subQ as it was not given on dialysis earlier today. 2. He will continue Tuesday, Tuesday, and Tuesday dialysis in the outpatient center. 3. Stable from my standpoint for discharge from the TCU today. William Erickson MD
--- NOTE | 2016-11-18 23:40 | DS ---
LOCATION: The patient is seen and examined in room 321, bed 1. HISTORY OF PRESENT ILLNESS: The patient is lying in the bed. Overnight nurse's notes were reviewed. The patient is seen and examined with the medical residents. The patient is lying in the bed, alert, awake, oriented to person, place, and name. He is able to name his name and my name. The patient follow simple commands. The patient need assistance from lying to sitting position. The patient is able to move upper and lower extremity without assistance. Overnight nurse's notes were reviewed. PHYSICAL EXAMINATION: VITAL SIGNS: T-max afebrile, heart rate 86, 84, 89, 78, blood pressure 128/74, 130/80, 152/75. HEENT: Head examination normocephalic, atraumatic. HEENT examination shows pinkish pale conjunctivae. Anicteric sclerae. No oropharyngeal lesions. NECK: No neck rigidity. Soft carotid bruit. CHEST: Kyphosis. LUNGS: Show no crackles, no rales. CARDIOVASCULAR: S1, S2, regular rhythm. Questionable soft systolic murmur, right second intercostal space, left sternal border, left second intercostal space. ABDOMEN: Soft. Positive bowel sounds. Nontender. No guarding. No rigidity, No rebound tenderness. GENITALIA: Male. RECTAL: Deferred. EXTREMITIES: Show positive left upper extremity AV fistula, positive thrill. MUSCULOSKELETAL: As per the body mass index. The patient is able to move upper and lower extremities without assistance. Gait examination is not tested. The patient's case was discussed with the nursing. The patient has completed the TCU stay today and the patient will be discharged today as per the TCU approved days. FINAL IMPRESSION, PLAN, AND DISCHARGE DIAGNOSES: 1. Acute non-ST elevation myocardial infarction. 2. Toxic metabolic encephalopathy with altered mental status and behavioral disorder (resolved). 3. Severe deconditioning. 4. Gait dysfunction. 5. Anemia. 6. Anemia of chronic kidney disease. 7. 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 8. Hypertension. 9. Constipation. 10. Secondary hyperparathyroidism. 11. End-stage renal disease, hemodialysis dependent 3 times a week via the left upper extremity arteriovenous fistula. 12. History of gastrointestinal bleeding. 13. History of coronary artery disease and angioplasty. 14. History of dementia with acute exacerbation. 15. History of poor compliance and noncompliance. 16. Left upper extremity arteriovenous fistula placement. 17. Deconditioning. 1. Gait dysfunction. 2. Deconditioning. 3. Acute exacerbation of dementia with encephalopathy and altered mental status and episodic confusion. 4. Anemia with decreasing hemoglobin and hematocrit. 5. End-stage renal disease, hemodialysis dependent, three times a week via the left upper extremity arteriovenous fistula. 6. Status post non-ST elevation myocardial infarction. 7. History of gastrointestinal bleeding. 8. History of dementia. 9. Hypertension. 10. Dyslipidemia. 11. Diabetic neuropathy and diabetic gastroparesis. 12. History of constipation. 13. Secondary hyperparathyroidism. 14. Gait dysfunction. 1. Acute non-ST elevation myocardial infarction. 2. Deconditioning. 3. Gait dysfunction. 4. End-stage renal disease, hemodialysis dependent. 5. Insulin requiring diabetes mellitus. 6. Anemia. 7. Dementia. 8. History of gastrointestinal bleeding. 9. History of dementia. 10. History of poor compliance. 1. Gait dysfunction. 2. Deconditioning. 3. Acute non-ST elevation myocardial infarction with elevated troponin. 4. Acute toxic metabolic encephalopathy and altered mental status and transient confusion with behavioral disturbances. 5. Normocytic anemia. 6. Leukocytosis. 7. Type 1 insulin requiring diabetes mellitus well controlled. 8. History of coronary artery disease, non ST elevation myocardial infarction, angioplasty and stent placement. 9. End-stage renal disease, hemodialysis dependent via the left upper extremity AV fistula 3 times a week. 10. History of dementia. 11. Constipation. 12. Fecal retention, fecal stasis. 13. History of dyslipidemia. 14. History of secondary hyperparathyroidism. 15. History of poor compliance. 16. History of gastric carcinoma. 17. History of recurrent gastrointestinal bleeding. 1. Deconditioning. 2. Gait dysfunction. 3. Encephalopathy. 4. Episodic confusional state. 5. End-stage renal disease, hemodialysis dependent, three days a week via the left upper extremity AV fistula. 6. Insulin-requiring very well controlled diabetes mellitus. 7. Dementia with acute exacerbation. 8. Poor compliance. 9. Acute non-ST elevation myocardial infarction with elevated troponin and electrocardiogram changes. 10. Bifascicular block with right bundle-branch block, left anterior hemiblock and lateral ischemic changes on the electrocardiogram. 11. Coronary artery disease. 12. History of angioplasty. 13. Dementia. 14. Secondary hyperparathyroidism. 15. Anemia. 16. Leukocytosis with granulocytosis and bandemia. 1. Acute non-ST elevation myocardial infarction and acute coronary syndrome. 2. Hypertension. 3. Dementia. 4. Leukocytosis with granulocytosis and bandemia. 5. Normocytic anemia. 6. End-stage renal disease, hemodialysis dependent. 7. Insulin requiring type 1 diabetes mellitus, well controlled with hemoglobin A1c of 5.4. 8. History of poor compliance. 9. Fecal impaction. 10. Fecal stasis. 11. Constipation. 12. Cholelithiasis. 13. Non-obstructed right inguinal hernia containing ileum. 14. Left inguinal hernia containing bladder. 15. Interstitial lung disease with bibasilar atelectasis. 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 17. Right bundle-branch block. 18. Bifascicular block. 19. End-stage renal disease, hemodialysis dependent, three times a week via the left upper extremity AV fistula. 20. Coronary artery disease with acute non-ST elevation myocardial infarction. 21. Systemic inflammatory response syndrome. 22. History of healthcare-associated pneumonia. 23. History of gastrointestinal bleeding. 24. Deconditioning. 25. Gait dysfunction. 1. Non ST-elevation myocardial infarction with elevated troponin. 2. Bifascicular block with right bundle branch block and left anterior hemiblock with lateral chronic ischemic changes. 3. History of gastrointestinal bleeding. 4. Gait dysfunction. 5. Deconditioning. 6. Status post uncontrolled hypertension. 7. Status post high-grade fever. 8. Leukocytosis with granulocytosis and bandemia. 9. Normocytic anemia. 10. End-stage renal disease, hemodialysis-dependent via the left upper extremity arteriovenous fistula. 11. Well controlled type 1 insulin-requiring diabetes mellitus with hemoglobin A1c of 5.4. 12. Hyperprolactinemia with elevated procalcitonin of greater than 160. 13. B positive blood type. 14. Acute coronary syndrome with acute non ST-elevation myocardial infarction and lateral chronic ischemia and bifascicular block with right bundle branch block and left anterior hemiblock. 15. Diabetic gastroparesis. 16. Mild to moderate oropharyngeal dysphagia with risk for aspiration, improving and resolving. 17. Systemic inflammatory response syndrome. 18. Possible sepsis with healthcare-associated pneumonia. 19. History of recurrent gastrointestinal bleeding. 20. Microvascular ischemic disease of the brain. 21. Small hiatal hernia. 22. Bibasilar pulmonary opacities and interstitial markings. 23. Calcified cholelithiasis with partially distended gallbladder. 24. Bilateral adrenal gland thickening. 25. Bilateral renal cyst. 26. Nonobstructive right inguinal hernia. 27. Fecal retention and fecal stasis in the descending colon and sigmoid with fecal bolus in the rectum. 28. Mild gallbladder wall thickening. 29. Prostatomegaly. 30. Degenerative joint disease of the spine. 31. Umbilical hernia. 32. Left inguinal hernia containing bladder. 33. Non-obstructing right inguinal hernia containing distal ileum. 34. Fecal impaction, retention, stasis. 35. Left anterior hemiblock, right bundle-branch block, bifascicular block with lateral coronary ischemic changes. 36. History of poor compliance. 37. Acute coronary syndrome. 38. Dementia. 39. Prostatic hypertrophy. 40. Constipation. 41. Gastroesophageal reflux. 1. High-grade fever of 102 degrees Fahrenheit. 2. Hypertension. 3. Tachypnea. 4. Tachycardia. 5. Hypertension. 6. Leukocytosis with granulocytosis and bandemia. 7. Normocytic anemia. 8. Acute non-ST elevation myocardial infraction with elevated troponin. 9. End-stage renal disease, hemodialysis dependent. 10. Hypercalcitoninemia. 11. 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 12. Chronic microvascular ischemic disease of the brain. 13. Bifascicular block with right bundle-branch block, left anterior hemiblock, and anterolateral ST changes. 14. Fever. 1. Acute non-ST elevation mycoardial infraction with elevated CPK and elevated troponin with history of coronary artery disease. 2. Transient uncontrolled hypertension. 3. Encephalopathy. 4. Acute exacerbation of dementia. 5. Leukocytosis with granulocytosis and bandemia. 6. Normocytic anemia. 7. End-stage renal disease, hemodialysis dependent three times a week via the left upper extremity AV fistula. 8. Transaminitis. 9. 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 10. Bifascicular block with left anterior hemiblock, right bundle branch block. 11. Systemic inflammatory response syndrome. 12. Acute confusional state with history of dementia. 13. Moderate oropharyngeal dysphagia with risk for aspiration. 1. Nausea and vomiting, etiology undetermined. 2. Acute non-ST elevation mycoardial infraction with elevated troponin. 3. Questionable anterolateral coronary ischemia with ST depression in V1-V5. 4. Right bundle-branch block, left anterior hemiblock and bifascicular block. 5. Fever etiology, undetermined. 6. Questionable systemic inflammatory response syndrome. 7. Hiatal hernia. 8. Bibasilar opacities questionable interstitial marking versus pneumonia. 9. Chololithiasis. 10. Bilateral renal cyst. 11. Right inguinal nonobstructive hernia. 12. Fecal retention and stasis and constipation. 13. Bladder wall thickening. 14. Prostatomegaly. 15. Degenerative joint disease. 16. Left inguinal hernia containing bladder. 17. Nonobstructive right inguinal hernia containing distal ileum. 18. Encephalopathy with confusion. 19. Bifascicular block, right bundle-branch block and left anterior hemiblock. 20. Chronic ischemia. 21. History of poor compliance. 22. History of gastrointestinal bleeding. 23. Leukocytosis, granulocytosis and bandemia. 24. End-stage renal disease, hemodialysis dependent. 25. Acute non-ST elevation myocardial infarction with elevated troponin. 26. History of gastrointestinal bleeding. 27. History of dementia. 28. History of poor compliance. 29. Episodic nausea and vomiting, questionable diabetic gastroparesis. 30. Moderate oropharyngeal dysphagia with risk for aspiration (resolving). 1. Acute non-ST elevation myocardial infarction. 2. Toxic metabolic encephalopathy with altered mental status and behavioral disorder (resolved). 3. Severe deconditioning. 4. Gait dysfunction. 5. Anemia. 6. Anemia of chronic kidney disease. 7. 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 8. Hypertension. 9. Constipation. 10. Secondary hyperparathyroidism. 11. End-stage renal disease, hemodialysis dependent 3 times a week via the left upper extremity arteriovenous fistula. 12. History of gastrointestinal bleeding. 13. History of coronary artery disease and angioplasty. 14. History of dementia with acute exacerbation. 15. History of poor compliance and noncompliance. 16. Left upper extremity arteriovenous fistula placement. 17. Deconditioning. 1. Gait dysfunction. 2. Deconditioning. 3. Acute exacerbation of dementia with encephalopathy and altered mental status and episodic confusion. 4. Anemia with decreasing hemoglobin and hematocrit. 5. End-stage renal disease, hemodialysis dependent, three times a week via the left upper extremity arteriovenous fistula. 6. Status post non-ST elevation myocardial infarction. 7. History of gastrointestinal bleeding. 8. History of dementia. 9. Hypertension. 10. Dyslipidemia. 11. Diabetic neuropathy and diabetic gastroparesis. 12. History of constipation. 13. Secondary hyperparathyroidism. 14. Gait dysfunction. 1. Acute non-ST elevation myocardial infarction. 2. Deconditioning. 3. Gait dysfunction. 4. End-stage renal disease, hemodialysis dependent. 5. Insulin requiring diabetes mellitus. 6. Anemia. 7. Dementia. 8. History of gastrointestinal bleeding. 9. History of dementia. 10. History of poor compliance. 1. Gait dysfunction. 2. Deconditioning. 3. Acute non-ST elevation myocardial infarction with elevated troponin. 4. Acute toxic metabolic encephalopathy and altered mental status and transient confusion with behavioral disturbances. 5. Normocytic anemia. 6. Leukocytosis. 7. Type 1 insulin requiring diabetes mellitus well controlled. 8. History of coronary artery disease, non ST elevation myocardial infarction, angioplasty and stent placement. 9. End-stage renal disease, hemodialysis dependent via the left upper extremity AV fistula 3 times a week. 10. History of dementia. 11. Constipation. 12. Fecal retention, fecal stasis. 13. History of dyslipidemia. 14. History of secondary hyperparathyroidism. 15. History of poor compliance. 16. History of gastric carcinoma. 17. History of recurrent gastrointestinal bleeding. 1. Deconditioning. 2. Gait dysfunction. 3. Encephalopathy. 4. Episodic confusional state. 5. End-stage renal disease, hemodialysis dependent, three days a week via the left upper extremity AV fistula. 6. Insulin-requiring very well controlled diabetes mellitus. 7. Dementia with acute exacerbation. 8. Poor compliance. 9. Acute non-ST elevation myocardial infarction with elevated troponin and electrocardiogram changes. 10. Bifascicular block with right bundle-branch block, left anterior hemiblock and lateral ischemic changes on the electrocardiogram. 11. Coronary artery disease. 12. History of angioplasty. 13. Dementia. 14. Secondary hyperparathyroidism. 15. Anemia. 16. Leukocytosis with granulocytosis and bandemia. 1. Acute non-ST elevation myocardial infarction and acute coronary syndrome. 2. Hypertension. 3. Dementia. 4. Leukocytosis with granulocytosis and bandemia. 5. Normocytic anemia. 6. End-stage renal disease, hemodialysis dependent. 7. Insulin requiring type 1 diabetes mellitus, well controlled with hemoglobin A1c of 5.4. 8. History of poor compliance. 9. Fecal impaction. 10. Fecal stasis. 11. Constipation. 12. Cholelithiasis. 13. Non-obstructed right inguinal hernia containing ileum. 14. Left inguinal hernia containing bladder. 15. Interstitial lung disease with bibasilar atelectasis. 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 17. Right bundle-branch block. 18. Bifascicular block. 19. End-stage renal disease, hemodialysis dependent, three times a week via the left upper extremity AV fistula. 20. Coronary artery disease with acute non-ST elevation myocardial infarction. 21. Systemic inflammatory response syndrome. 22. History of healthcare-associated pneumonia. 23. History of gastrointestinal bleeding. 24. Deconditioning. 25. Gait dysfunction. 1. Non ST-elevation myocardial infarction with elevated troponin. 2. Bifascicular block with right bundle branch block and left anterior hemiblock with lateral chronic ischemic changes. 3. History of gastrointestinal bleeding. 4. Gait dysfunction. 5. Deconditioning. 6. Status post uncontrolled hypertension. 7. Status post high-grade fever. 8. Leukocytosis with granulocytosis and bandemia. 9. Normocytic anemia. 10. End-stage renal disease, hemodialysis-dependent via the left upper extremity arteriovenous fistula. 11. Well controlled type 1 insulin-requiring diabetes mellitus with hemoglobin A1c of 5.4. 12. Hyperprolactinemia with elevated procalcitonin of greater than 160. 13. B positive blood type. 14. Acute coronary syndrome with acute non ST-elevation myocardial infarction and lateral chronic ischemia and bifascicular block with right bundle branch block and left anterior hemiblock. 15. Diabetic gastroparesis. 16. Mild to moderate oropharyngeal dysphagia with risk for aspiration, improving and resolving. 17. Systemic inflammatory response syndrome. 18. Possible sepsis with healthcare-associated pneumonia. 19. History of recurrent gastrointestinal bleeding. 20. Microvascular ischemic disease of the brain. 21. Small hiatal hernia. 22. Bibasilar pulmonary opacities and interstitial markings. 23. Calcified cholelithiasis with partially distended gallbladder. 24. Bilateral adrenal gland thickening. 25. Bilateral renal cyst. 26. Nonobstructive right inguinal hernia. 27. Fecal retention and fecal stasis in the descending colon and sigmoid with fecal bolus in the rectum. 28. Mild gallbladder wall thickening. 29. Prostatomegaly. 30. Degenerative joint disease of the spine. 31. Umbilical hernia. 32. Left inguinal hernia containing bladder. 33. Non-obstructing right inguinal hernia containing distal ileum. 34. Fecal impaction, retention, stasis. 35. Left anterior hemiblock, right bundle-branch block, bifascicular block with lateral coronary ischemic changes. 36. History of poor compliance. 37. Acute coronary syndrome. 38. Dementia. 39. Prostatic hypertrophy. 40. Constipation. 41. Gastroesophageal reflux. 1. High-grade fever of 102 degrees Fahrenheit. 2. Hypertension. 3. Tachypnea. 4. Tachycardia. 5. Hypertension. 6. Leukocytosis with granulocytosis and bandemia. 7. Normocytic anemia. 8. Acute non-ST elevation myocardial infraction with elevated troponin. 9. End-stage renal disease, hemodialysis dependent. 10. Hypercalcitoninemia. 11. 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 12. Chronic microvascular ischemic disease of the brain. 13. Bifascicular block with right bundle-branch block, left anterior hemiblock, and anterolateral ST changes. 14. Fever. 1. Acute non-ST elevation mycoardial infraction with elevated CPK and elevated troponin with history of coronary artery disease. 2. Transient uncontrolled hypertension. 3. Encephalopathy. 4. Acute exacerbation of dementia. 5. Leukocytosis with granulocytosis and bandemia. 6. Normocytic anemia. 7. End-stage renal disease, hemodialysis dependent three times a week via the left upper extremity AV fistula. 8. Transaminitis. 9. 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 10. Bifascicular block with left anterior hemiblock, right bundle branch block. 11. Systemic inflammatory response syndrome. 12. Acute confusional state with history of dementia. 13. Moderate oropharyngeal dysphagia with risk for aspiration. 1. Nausea and vomiting, etiology undetermined. 2. Acute non-ST elevation mycoardial infraction with elevated troponin. 3. Questionable anterolateral coronary ischemia with ST depression in V1-V5. 4. Right bundle-branch block, left anterior hemiblock and bifascicular block. 5. Fever etiology, undetermined. 6. Questionable systemic inflammatory response syndrome. 7. Hiatal hernia. 8. Bibasilar opacities questionable interstitial marking versus pneumonia. 9. Chololithiasis. 10. Bilateral renal cyst. 11. Right inguinal nonobstructive hernia. 12. Fecal retention and stasis and constipation. 13. Bladder wall thickening. 14. Prostatomegaly. 15. Degenerative joint disease. 16. Left inguinal hernia containing bladder. 17. Nonobstructive right inguinal hernia containing distal ileum. 18. Encephalopathy with confusion. 19. Bifascicular block, right bundle-branch block and left anterior hemiblock. 20. Chronic ischemia. 21. History of poor compliance. 22. History of gastrointestinal bleeding. 23. Leukocytosis, granulocytosis and bandemia. 24. End-stage renal disease, hemodialysis dependent. 25. Acute non-ST elevation myocardial infarction with elevated troponin. 26. History of gastrointestinal bleeding. 27. History of dementia. 28. History of poor compliance. 29. Episodic nausea and vomiting, questionable diabetic gastroparesis. 30. Moderate oropharyngeal dysphagia with risk for aspiration (resolving). The patient will be discharged home with visiting nurse, home health aide, home PT. The patient's discharge medications are as per updated ambulatory orders, which are updated and revised. The patient's insulin, only medicine which is adjusted is, the patient is to take insulin Levemir FlexTouch insulin instead of 5 units twice a day to 5 units once a day. The patient's Levemir FlexTouch insulin is decreased to 5 units once a day because of well-controlled diabetes and hemoglobin A1c of less than 6. During this hospitalization, the patient's condition, diagnosis, treatment plan, management plan, outpatient followup, continuation of hemodialysis, need for 24-hour care and supervision, and need for assistance with activities of daily living was explained in detail to the patient's , Nina Gloria, which she acknowledged and understood. All question and concern answered to their satisfaction. Time spent in the entire discharge management is more than 45 minutes. Dictated and electronically signed, not read. Zeyad Nazario MD [facility]
== END 2016-11-17 14:21 | disposition home health service (06) | DRG 945 ==
LOC: TRCU 13:45
PROVIDERS: ADMIT Internal Medicine; ATTEND Internal Medicine
PROC: 5A1D60Z (ICD-10-PCS; 2016-11-10)
PROC: F07Z9FZ Gait Training/Functional Ambulation Treatment using Assistive, Adaptive, Supportive or Protective Equipment (ICD-10-PCS; principal; 2016-11-11)
PROC: F07Z8FZ Transfer Training Treatment using Assistive, Adaptive, Supportive or Protective Equipment (ICD-10-PCS; 2016-11-11)
PROC: F07Z5FZ Bed Mobility Treatment using Assistive, Adaptive, Supportive or Protective Equipment (ICD-10-PCS; 2016-11-11)
PROC: F07L6FZ Therapeutic Exercise Treatment of Musculoskeletal System - Lower Back / Lower Extremity using Assistive, Adaptive, Supportive or Protective Equipment (ICD-10-PCS; 2016-11-11)
PROC: F08Z1FZ Dressing Techniques Treatment using Assistive, Adaptive, Supportive or Protective Equipment (ICD-10-PCS; 2016-11-13)
PROC: F08Z2FZ Grooming/Personal Hygiene Treatment using Assistive, Adaptive, Supportive or Protective Equipment (ICD-10-PCS; 2016-11-16)
DX: R53.1 Weakness (principal); I21.4 Non-ST elevation (NSTEMI) myocardial infarction; G92 Toxic encephalopathy; N18.6 End stage renal disease; J18.9 Pneumonia, unspecified organism; I13.2 Hypertensive heart and chronic kidney disease with heart failure and with stage 5 chronic kidney disease, or end stage renal disease; N25.81 Secondary hyperparathyroidism of renal origin; F03.91 Unspecified dementia, unspecified severity, with behavioral disturbance; I12.0 Hypertensive chronic kidney disease with stage 5 chronic kidney disease or end stage renal disease; J44.0 Chronic obstructive pulmonary disease with (acute) lower respiratory infection; I45.2 Bifascicular block; R26.9 Unspecified abnormalities of gait and mobility; D63.1 Anemia in chronic kidney disease; N40.0 Benign prostatic hyperplasia without lower urinary tract symptoms; E11.22 Type 2 diabetes mellitus with diabetic chronic kidney disease; I50.9 Heart failure, unspecified; I34.1 Nonrheumatic mitral (valve) prolapse; K56.41 Fecal impaction; E78.5 Hyperlipidemia, unspecified; E11.40 Type 2 diabetes mellitus with diabetic neuropathy, unspecified; E11.43 Type 2 diabetes mellitus with diabetic autonomic (poly)neuropathy; K31.84 Gastroparesis; I25.10 Atherosclerotic heart disease of native coronary artery without angina pectoris; Z99.2 Dependence on renal dialysis; Z95.5 Presence of coronary angioplasty implant and graft; Z79.4 Long term (current) use of insulin; Z85.028 Personal history of other malignant neoplasm of stomach; Z87.891 Personal history of nicotine dependence; Z86.73 Personal history of transient ischemic attack (TIA), and cerebral infarction without residual deficits; Z91.19 Patient's noncompliance with other medical treatment and regimen

== ENCOUNTER 2016-11-18 19:17 | Inpatient (IN) | payer MEDICARE, BC ==
--- NOTE | 2016-11-18 19:44 | ED PDOC ---
Arrival/HPI - General Chief Complaint: Altered Mental Status Time Seen by Provider: 11/18/16 19:31 - History of Present Illness Narrative History of Present Illness (Text): 11/18/16 19:40 Patient is an 86 y/o M discharged from TCU yesterday after admission for NSTEMI with complicated medical history including HTN, dementia, anemia, ESRD on HD ( last yesterday), IDDM, GI bleed, presenting from home with AMS and fever. reports that she found patient home today altered so she brought him to ED. She reports that he is normally not oriented x 3 but reports that today he is more lethargic and more non-verbal. Patient febrile on presentation and vomiting in ED. Chart review shows that he was AAOx3 on discharge yesterday PMD: Dr. Nazario Past Medical History - Infectious Disease Hx of Infectious Diseases: None - Tetanus Immunization Tetanus Immunization: Unknown - Cardiac Hx Cardiac Disorders: Yes Hx ME: Yes Hx Hypertension: Yes - Pulmonary Hx Chronic Obstructive Pulmonary Disease (COPD): Yes - Neurological HX Cerebrovascular Accident: Yes - HEENT Hx HEENT Disorder: Yes (WEARS RX GLASSES) Hx Epistaxis: Yes - Renal Hx Renal Failure: Yes - Endocrine/Metabolic Hx Diabetes Mellitus Type 1: Yes - Hematological/Oncological Hx Cancer: Yes (gastric) - Integumentary Hx Dermatological Disorder: No - Musculoskeletal/Rheumatological Hx Falls: Yes (past) - Gastrointestinal Hx Gastrointestinal Disorders: Yes (CONSTIPATION,GERD,DIVERTICULITIS,GASTRIC CA, COLON POLYPS,FECAL IMPACTION.) - Genitourinary/Gynecological Hx Genitourinary Disorders: Yes (OLIGURIA,ESRD ON HD MWF) Hx Reproductive Disorders: Yes (BPH) - Psychiatric Hx Psychophysiologic Disorder: No Hx Emotional Abuse: No Hx Substance Use: No - Surgical History Hx Cholecystectomy: Yes Hx Coronary Stent: Yes (x1) Other/Comment: AV shunt placement. - Anesthesia Hx Anesthesia Reactions: No Hx Malignant Hyperthermia: No - Suicidal Assessment Feels Threatened In Home Enviroment: No Family/Social History Family/Social History: No Known Family HX Smoking Status: Former Smoker Hx Alcohol Use: No Hx Substance Use: No Hx Substance Use Treatment: No Allergies/Home Meds Allergies/Adverse Reactions: Allergies No Known Allergies Allergy (Verified 11/18/16 19:28) Home Medications: Home Meds Medication Instructions Recorded Confirmed Linaclotide [Linzess] 145 mcg PO DAILY 09/22/15 11/18/16 Travoprost [Travatan Z] 1 drop BOTHEYES HS 11/23/15 11/18/16 Cholecalciferol [Vitamin D 1000 IU] 50,000 unit PO SAT 01/30/16 11/18/16 Folic Acid 1 mg PO DAILY 04/22/16 11/18/16 Omeprazole 20 mg PO QAM 04/22/16 11/18/16 Sevelamer [Renagel] 800 mg PO TID 04/22/16 11/18/16 Aspirin [Lo-Dose Aspirin EC] 81 mg PO DAILY 04/28/16 11/18/16 Benzonatate 100 mg PO TID 09/05/16 11/18/16 Losartan [Cozaar] 100 mg PO DAILY 09/05/16 11/18/16 Nebivolol [Bystolic] 5 mg PO DAILY 09/05/16 11/18/16 Tamsulosin [Flomax] 0.4 mg PO DAILY 09/05/16 11/18/16 Vit B Cmplx 3/Folic AC/C/Biot 1 tab PO DAILY 09/05/16 11/18/16 [Suzanna-Jaylin Rx Tablet] Review of Systems - Review of Systems Systems not reviewed;Unavailable: Dementia Physical Exam Vital Signs Temp Pulse Resp BP Pulse Ox 11/18/16 23:55 83 16 126/52 L 97 11/18/16 22:27 101.3 F H 85 16 113/57 L 100 11/18/16 21:11 103.2 F H 96 H 18 146/76 100 11/18/16 21:10 103 F H 11/18/16 19:19 103.2 F H 100 H 18 161/86 H 100 Temperature: Febrile Blood Pressure: Hypertensive Pulse: Tachycardic Respiratory Rate: Normal Appearance: Positive for: Ill-Appearing, Unkept Pain Distress: Mild Mental Status: Positive for: Confused, other (non-verbal, just moaning "no") Finger Stick Blood Glucose: 144 - Systems Exam Head: Present: Atraumatic, Normocephalic Pupils: Present: PERRL Extroacular Muscles: Present: EOMI Conjunctiva: Present: Normal Mouth: Present: Dry Neck: Present: Normal Range of Motion Respiratory/Chest: Present: Decreased Breath Sounds, Rhonchi. No: Respiratory Distress, Accessory Muscle Use, Retracting Cardiovascular: Present: Regular Rate and Rhythm, Normal S1, S2. No: Murmurs Abdomen: No: Tenderness, Distention, Rebound, Guarding Back: Present: Normal Inspection. No: CVA Tenderness Upper Extremity: Present: Other (L arm AV fistula). No: Edema Lower Extremity: No: Edema Skin: Present: Warm Medical Decision Making ED Course and Treatment: 11/18/16 19:45 altered, febrile and tachycardic on arrival, concerning for sepsis. Vomiting on arrival. FS:144 --zofran, --ct head --ekg --xray --labs, ua, urine and blood cultures --slow hydration --abx, tylenol 7:46PM EKG shows NSR at 91bpm with 1st degree AV block, RBBB, left anterior fasicular block, unchanged from prior. 11/18/16 19:47 11/18/16 20:41 Lactate resulted and is elevated. Code sepsis called. Broad spectrum antibiotics had already been ordered. Based on 30cc/kg, 2L fluid required. Patient is hemodynamically stable, not tachycardic, already has signs of fluid overload clinically, and I am concerned that rapid infusion with cause respiratory distress requiring intubation and emergent dialysis that may not be available. Will slowly hydrate patient to 2L fluid requirement. PMD aware of this plan. 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 Nazario requesting ICU consult. 11/18/16 23:12 Dr. Jain evaluated and does not need ICU. Dr. Nazario aware and I spoke to resident who will place orders. Patient's mental status is improving and he appears more alert. Repeat lactate:1.5 - Lab Interpretations Lab Results: 11/18/16 20:10 11/18/16 20:10 Lab Results 11/18/16 22:18: Urine Color Yellow, Urine Appearance Clear, Urine pH 8.5, Ur Specific [place] 1.020, Urine Protein 100 H, Urine Glucose (UA) 100 H, Urine Ketones Negative, Urine Blood Moderate H, Urine Nitrate Negative, Urine Bilirubin Negative, Urine Urobilinogen 0.2, Ur Leukocyte Esterase Negative, Urine RBC 25 - 30, Urine WBC 0 - 2, Ur Epithelial Cells 1 - 3 11/18/16 20:10: Sodium 137, Chloride 97 L, Potassium 4.5, Carbon Dioxide 26, Anion Gap 19, BUN 29 H, Creatinine 6.4 H, Est GFR ( Amer) 10, Est GFR ( Non-Af Amer) 8, Random Glucose 123 H, Calcium 8.9, Phosphorus 2.6, Magnesium 2.0 , Total Bilirubin 0.5, AST 27, ALT 23, Alkaline Phosphatase 69, Total Creatine Kinase 85, Troponin I 0.29 H* D, Total Protein 7.4, Albumin 3.8, Globulin 3.6, Albumin/Globulin Ratio 1.1, Lipase 376 H 11/18/16 20:10: pO2 107 H, VBG pH 7.56 H, VBG pCO2 32.0 L, VBG HCO3 28.7 H, VBG Total CO2 29.7 H, VBG O2 Sat (Calc) 99.4 H, VBG Base Excess 6.7 H, VBG Potassium 4.5, Sodium 138.0, Chloride 99.0, Glucose 126 H, Lactate 3.5 H, FiO2 21.0, Venous Blood Potassium 4.5 11/18/16 20:10: PT 11.4, INR 1.06, APTT 26.3 11/18/16 20:10: WBC 16.2 H D, RBC 3.41 L, Hgb 9.8 L, Hct 30.2 L, MCV 88.6, MCH 28.7, MCHC 32.5, RDW 16.4 H, Plt Count 215, MPV 10.9, Gran % 91.6 H, Lymph % ( Auto) 4.0 L, Pettis % (Auto) 4.1, Eos % (Auto) 0.2 L, Baso % (Auto) 0.1, Gran # 14.79 H, Lymph # 0.7 L, Pettis # 0.7 H, Eos # 0.0, Baso # 0.02, Neutrophils % ( Manual) 93 H, Lymphocytes % (Manual) 5 L, Monocytes % (Manual) 2, Platelet Evaluation Normal, Anisocytosis (manual) Slight, Ovalocytes Slight 11/18/16 19:21: POC Glucose (mg/dL) 144 H - RAD Interpretation Radiology Orders: 11/18/16 19:38 HEAD W/O CONTRAST [CT] Stat CHEST PORTABLE [RAD] Stat 11/18/16 20:47 ABD & PELVIS W/O PO OR IV CONT [CT] Stat - Medication Orders Current Medication Orders: Acetaminophen (Tylenol 650 Mg Supp) 650 mg RC Q4H PRN PRN Reason: fever > 99.5 Acetaminophen (Tylenol 325mg Tab) 650 mg PO Q6H PRN PRN Reason: TEMP>=99.5F Albuterol/Ipratropium (Duoneb 3 Mg/0.5 Mg (3 Ml) Ud) 3 ml IH [id number] PRN PRN Reason: Shortness of Breath Aspirin (Ecotrin) 81 mg PO DAILY FRANCISCO JAVIER Atorvastatin Calcium (Lipitor) 40 mg PO DIN FRANCISCO JAVIER Benzonatate (Tessalon Perles) 100 mg PO TID FRANCISCO JAVIER Cholecalciferol (Vitamin D) iu PO SAT FRANCISCO JAVIER Donepezil HCl (Aricept) 10 mg PO HS FRANCISCO JAVIER Folic Acid (Folic Acid) 1 mg PO DAILY FRANCISCO JAVIER Sodium Chloride (Sodium Chloride 0.9%) 250 mls @ 100 mls/hr IV .Q2H30M FRANCISCO JAVIER Last Admin: 11/18/16 20:20 Dose: 100 mls/hr Piperacillin Sod/Tazobactam Sod (Zosyn 2.25 Gm In 0.9% 100 Ml) 2.25 gm in 100 mls @ 100 mls/hr IVPB Q8H FRANCISCO JAVIER PRN Reason: Protocol Stop: 11/19/16 14:59 Isosorbide Mononitrate (Imdur) 120 mg PO DAILY FRANCISCO JAVIER Levalbuterol HCl (Xopenex) 0.63 mg IH Q6H FRANCISCO JAVIER Losartan Potassium (Cozaar) 100 mg PO DAILY FRANCISCO JAVIER Non-Formulary Medication (Insulin Detemir [Levemir]) 5 units SC DAILY FRANCISCO JAVIER Non-Formulary Medication (Linaclotide [Linzess]) 145 mcg PO DAILY FRANCISCO JAVIER Non-Formulary Medication (Nebivolol [Bystolic]) 5 mg PO DAILY FRANCISCO JAVIER Non-Formulary Medication (Omeprazole [Omeprazole]) 20 mg PO QAM FRANCISCO JAVIER Non-Formulary Medication (Travoprost [Travatan Z]) 1 drop BOTHEYES HS FRANCISCO JAVIER Sevelamer HCl (Renagel) 800 mg PO TID FRANCISCO JAVIER Tamsulosin HCl (Flomax) 0.4 mg PO DAILY FRANCISCO JAVIER Vitamin B Complex/Vit C/Folic Acid (Nephro-Jaylin) 1 tab PO DAILY [facility] Discontinued Medications Acetaminophen (Tylenol 650 Mg Supp) 650 mg RC STAT STA Stop: 11/18/16 20:47 Last Admin: 11/18/16 21:10 Dose: 650 mg Vancomycin HCl (Vancomycin 1gm) 1 gm in 250 mls @ 167 mls/hr IVPB STAT STA PRN Reason: Protocol Stop: 11/18/16 21:56 Last Admin: 11/18/16 23:02 Dose: 167 mls/hr Piperacillin Sod/Tazobactam Sod (Zosyn 3.375 In Ns 100ml) 100 mls @ 200 mls/hr IVPB STAT STA PRN Reason: Protocol Stop: 11/18/16 20:56 Last Admin: 11/18/16 21:20 Dose: 200 mls/hr Sodium Chloride (Sodium Chloride 0.9%) 500 mls @ 999 mls/hr IV .Q31M STA Stop: 11/18/16 21:11 Last Admin: 11/18/16 21:30 Dose: 999 mls/hr Sodium Chloride (Sodium Chloride 0.9%) 500 mls @ 999 mls/hr IV .Q31M STA Stop: 11/18/16 21:42 Last Admin: 11/18/16 23:24 Dose: 999 mls/hr Ondansetron HCl (Zofran Inj) 4 mg IVP STAT STA Stop: 11/18/16 19:40 Last Admin: 11/18/16 20:23 Dose: 4 mg Sodium Phosphate (Fleet Enema) 135 ml RC STAT STA Stop: 11/19/16 00:05 Disposition/Present on Arrival - Present on Arrival Any Indicators Present on Arrival: No History of DVT/PE: No History of Uncontrolled Diabetes: No Urinary Catheter: No History of Decub. Ulcer: No History Surgical Site Infection Following: None - Disposition Have Diagnosis and Disposition been Completed?: Yes Diagnosis: Sepsis, Altered mental state Disposition: HOSPITALIZED Disposition Time: 19:19 Patient Plan: Admission Patient Problems: Current Active Problems Problem Status Onset Sepsis Acute Altered mental state Acute Condition: FAIR
[2016-11-18] MEDS: Sodium Chloride 0.9% 250 ML IV SCH (20:20)
[2016-11-18 20:26] LABS: BASO # 0.02 K/mm3 (0.0-2.0); BASO % 0.1 % (0.0-3.0); EOS % 0.2 % (1.5-5.0); GRAN # 14.79 (1.4-6.5); GRAN % 91.6 % (50.0-68.0); HEMATOCRIT 30.2 % (42.0-52.0); LYMPH # 0.7 (1.2-3.4); MEAN CELL VOLUME 88.6 fl (80.0-105.0); MEAN CORPUSCULAR HEMOGLOBIN 28.7 pg (25.0-35.0); MEAN CORPUSCULAR HGB CONC 32.5 g/dl (31.0-37.0); MEAN PLATELET VOLUME 10.9 fl (7.0-11.0); MONO # 0.7 (0.1-0.6); MONO % 4.1 % (1.0-6.0); PLATELET COUNT 215 10^3/uL (120.0-450.0); RED CELL DISTRIBUTION WIDTH 16.4 % (11.5-14.5); WHITE BLOOD COUNT 16.2 10^3/ul (4.5-11.0)
[2016-11-18] MEDS ORDERED: Piperacillin/Tazobact 3.375 gm 100 ML IVPB STA (20:27)
[2016-11-18] MEDS ORDERED: Vancomycin 1gm in NS 250ml 1 GM/250 ML BAG IVPB STA (20:27)
[2016-11-18 20:34] LABS: VENOUS BLOOD GAS BASE EXCESS 6.7 mmol/L (0.0-2.0); VENOUS BLOOD PH 7.56 (7.32-7.43)
[2016-11-18 20:36] LABS: INR 1.06 (0.93-1.08); PARTIAL THROMBOPLASTIN TIME 26.3 Seconds (23.7-30.8)
[2016-11-18] MEDS ORDERED: Sodium Chloride 0.9% 500 ML IV STA ×2 (20:41→21:12)
[2016-11-18 20:44] LABS: ALB/GLOB RATIO 1.1 (1.1-1.8); BILIRUBIN,TOTAL 0.5 mg/dL (0.2-1.3); CALCIUM 8.9 mg/dL (8.4-10.5); PHOSPHOROUS 2.6 mg/dL (2.5-4.5); POTASSIUM 4.5 mmol/L (3.6-5.0); TOTAL PROTEIN 7.4 g/dL (5.8-8.3)
[2016-11-18 20:57] LABS: TROPONIN I 0.29 ng/mL
[2016-11-18 20:59] LABS: ANISOCYTOSIS SLIGHT; NEUTROPHIL 93 % (50.0-70.0); OVALOCYTES SLIGHT; PLATELET ESTIMATE NORMAL (NORMAL)
--- NOTE | 2016-11-18 21:44 | CT ---
EXAM: CT Abdomen and Pelvis Without Intravenous Contrast EXAM DATE/TIME: 11/18/2016 8:47 PM CLINICAL HISTORY: 86 years old, male; Signs and symptoms; Vomiting; Additional info: Vomiting, abdominal pain TECHNIQUE: Axial computed tomography images of the abdomen and pelvis without intravenous contrast. All CT scans at this facility use one or more dose reduction techniques, viz.: automated exposure control; ma/kV adjustment per patient size (including targeted exams where dose is matched to indication; i.e. head); or iterative reconstruction technique. Coronal and sagittal reformatted images were created and reviewed. COMPARISON: CT - ABD PELVIS W/O PO OR IV CONT 11/04/2016 8:20:14 PM FINDINGS: Artifacts: Streak artifact degrades image quality. Motion artifact degrades image quality. Lower thorax: The heart is enlarged. There coronary calcifications. There is increased interstitial markings at the lung bases. There is increasing airspace disease in the lower lobes. ABDOMEN: Liver: unremarkable Gallbladder and bile ducts: Gallbladder is partially distended. Streak artifact obscures the small stone seen on the prior study. Common duct is unremarkable. Pancreas: unremarkable Spleen: unremarkable Adrenals: There is adrenal thickening and nodularity bilaterally. Kidneys and ureters: There are bilateral renal cysts, unchanged. There are renovascular calcifications.There is no pelvocaliectasis or ureterectasis. Stomach and bowel: There is a hiatal hernia. Stomach is partially distended with an air-fluid level. Rotation is normal. There is no small bowel obstruction. There are distal ileal loops in the right inguinal hernia. Terminal ileum is unremarkable. Appendix is unremarkable. There is a moderately large amount of stool in the colon. There is diverticulosis. There is a large fecal bolus in the rectum. Appendix: See stomach and bowel PELVIS: Bladder: Bladder is incompletely distended. Reproductive: Prostate is enlarged. Seminal vesicles are unremarkable. ABDOMEN and PELVIS: Intraperitoneal space: Bones/joints: Bony structures are osteopenic.There are degenerative changes in the osseus structures. Soft tissues: There is a small fat containing umbilical hernia. There are bilateral inguinal hernias containing fluid and fat. There is nonobstructed ileum in the right inguinal hernia. Bladder projects into the left inguinal Vasculature: There are phleboliths.There are vascular calcifications. Lymph nodes: unremarkable IMPRESSION: Fecal impaction with constipation, similar findings seen on the prior study 11/04/16; no acute solid visceral abnormality; slight increase in airspace disease possibly atelectasis at the lung bases; nonobstructing inguinal hernias Additional findings as described above.
--- NOTE | 2016-11-18 21:47 | CT ---
EXAM: CT Head Without Intravenous Contrast EXAM DATE/TIME: 11/18/2016 7:38 PM CLINICAL HISTORY: 86 years old, male; Signs and symptoms; Altered mental status/memory loss TECHNIQUE: Axial computed tomography images of the head/brain without intravenous contrast. All CT scans at this facility use one or more dose reduction techniques, viz.: automated exposure control; ma/kV adjustment per patient size (including targeted exams where dose is matched to indication; i.e. head); or iterative reconstruction technique. COMPARISON: CT - HEAD W/O CONTRAST 11/05/2016 11:05:11 AM FINDINGS: Brain: There is dilatation of sulci gyri and ventricles. There is no midline shift. There is decreased attenuation in periventricular white matter. There are multiple old lacunar infarcts in the basal ganglia. There are no focal masses. There are no focal hemorrhages. Palmer-white differentiation is visualized. Ventricles: See above Bones/joints: Bones: Cranial vault is intact. Soft tissues: unremarkable Sinuses: There is no acute sinusitis. Mastoid air cells: Ears and mastoids: Middle ears and mastoids are unremarkable. Orbits: Orbital contents are unremarkable. IMPRESSION: Atrophy and spinal vessel disease; multiple old basal ganglia lacunar infarcts; no bleed
--- NOTE | 2016-11-18 22:00 | PCM.SEPTIC ---
Sepsis Progress Note - Reassessment Type Date of Evaluation: 11/18/16 Time of Evaluation: 19:25 Reassessment Type: Non-invasive reassessment - Non Invasive Reassessment Were the most recent vital sign reviewed: Yes Vital Sign (Latest): Temp Pulse Resp BP Pulse Ox 103.2 F H 96 H 18 146/76 100 11/18/16 21:11 11/18/16 21:11 11/18/16 21:11 11/18/16 21:11 11/18/16 21:11 Cardiovascular: Yes: Regular Rate, Rhythm, Tachycardia Respiratory: Yes: Decreased Breath Sounds, Rhonchi Capillary Refill: Normal (Less than 2 sec) Pulses: Normal Radial, Decreased Dorsalis Pedis, Decreased Posterior Tibialis Skin: Warm, Dry <Melvin Meadows - Last Filed: 11/18/16 22:00> - Non Invasive Reassessment Vital Sign (Latest): Temp Pulse Resp BP Pulse Ox 103.2 F H 96 H 18 146/76 100 11/18/16 21:11 11/18/16 21:11 11/18/16 21:11 11/18/16 21:11 11/18/16 21:11 <Shree Hogan - Last Filed: 11/18/16 22:13> Attending/Attestation - Attestation I have personally seen and examined this patient.: No I have fully participated in the care of the patient.: Yes I have reviewed all pertinent clinical information, including history, physical exam and plan: Yes <Shree Hogan - Last Filed: 11/18/16 22:13>
[2016-11-18 22:29] LABS: PH,URINE 8.5 (4.7-8.0); URINE BILIRUBIN NEGATIVE (NEGATIVE); URINE BLOOD MODERATE (NEGATIVE); URINE GLUCOSE (UA) 100 mg/dL (NEGATIVE); URINE KETONE NEGATIVE (NEGATIVE); URINE LEUKOCYTE ESTERASE NEGATIVE Leu/uL (NEGATIVE); URINE PROTEIN 100 mg/dL (<30 mg/dL); URINE UROBILINOGEN 0.2 E.U./dL (<1 E.U./dL)
[2016-11-18 22:32] LABS: URINE APPEARANCE CLEAR (CLEAR); URINE COLOR YELLOW (YELLOW)
[2016-11-18 22:44] LABS: URINE RBC 25 - 30 /hpf (0-2); URINE WBC 0 - 2 /hpf (0-6)
--- NOTE | 2016-11-18 23:12 | CP.PCM.HP ---
<Gary Jordan - Last Filed: 11/19/16 03:00> History of Present Illness - History of Present Illness History of Present Illness: CC: Fever and rigors HPI: 86 year old male with PMH of ESRD on HD (M/W/F), prior HCAP, CAD s/p stenting, GI bleeds, CVA, Gastric cancer, Mitral valve prolapse, DM, and dementia who presents today for fevers and rigors. He was discharged yesterday from the [place] [facility] [place] His last hospitalization was for NSTEMI. I spoke to his who informed me that today at 6:00 PM she came to get Mr. Lay out of bed for dinner. She found him sitting on the bed, wrapped in his robe, shivering. She asks him if he wanted dinner and he said no and continued to hug himself and shiver. She changed his depen, and feeling how warm he was she immediately called 911. The history obtained from the patient was limited, as he is demented and altered. PMD: Dr. Nazario PMH: as above PSH: AV fistula in L forearm FHx: none listed in prior charting SHx: as per charting, former smoker, no reported EtOH or Illicits Present on Admission - Present on Admission Any Indicators Present on Admission: Yes Urinary Catheter: Yes Review of Systems - Review of Systems Review of Systems: unobtainable, patient has AMS Past Patient History - Infectious Disease Hx of Infectious Diseases: None - Tetanus Immunizations Tetanus Immunization: Unknown - Past Medical History & Family History Past Medical History?: Yes - Past Social History Smoking Status: Former Smoker - CARDIAC Hx Cardiac Disorders: Yes Hx Heart Attack: Yes Hx Hypertension: Yes - PULMONARY Hx Chronic Obstructive Pulmonary Disease (COPD): Yes - NEUROLOGICAL HX Cerebrovascular Accident: Yes - HEENT Hx HEENT Problems: Yes (WEARS RX GLASSES) Hx Epistaxis: Yes - RENAL Hx Renal Failure: Yes - ENDOCRINE/METABOLIC Hx Diabetes Mellitus Type 1: Yes - HEMATOLOGICAL/ONCOLOGICAL Hx Cancer: Yes (gastric) - INTEGUMENTARY Hx Dermatological Problems: No - MUSCULOSKELETAL/RHEUMATOLOGICAL Hx Falls: Yes (past) - GASTROINTESTINAL Hx Gastrointestinal Disorders: Yes (CONSTIPATION,GERD,DIVERTICULITIS,GASTRIC CA, COLON POLYPS,FECAL IMPACTION.) - GENITOURINARY/GYNECOLOGICAL Hx Genitourinary Disorders: Yes (OLIGURIA,ESRD ON HD MWF) Hx Reproductive Disorders: Yes (BPH) - PSYCHIATRIC Hx Psychophysiologic Disorder: No Hx Emotional Abuse: No Hx Substance Use: No - SURGICAL HISTORY Hx Cholecystectomy: Yes Hx Coronary Stent: Yes (x1) Other/Comment: AV shunt placement. - ANESTHESIA Hx Anesthesia Reactions: No Hx Malignant Hyperthermia: No Meds Allergies/Adverse Reactions: Allergies Allergy/AdvReac Type Severity Reaction Status Date / Time No Known Allergies Allergy Verified 12/01/16 17:02 Physical Exam - Constitutional Appears: In Acute Distress, Confused - Head Exam Head Exam: ATRAUMATIC, NORMOCEPHALIC - Eye Exam Eye Exam: EOMI, Normal appearance - ENT Exam ENT Exam: Mucous Membranes Moist, Normal Oropharynx - Respiratory Exam Respiratory Exam: Decreased Breath Sounds, Rhonchi - Cardiovascular Exam Cardiovascular Exam: RRR, +S1, +S2 - GI/Abdominal Exam GI & Abdominal Exam: Hypoactive Bowel Sounds, Soft. absent: Guarding, Rebound - Extremities Exam Extremities exam: Positive for: normal capillary refill, pedal pulses present. Negative for: calf tenderness Additional comments: left arm has AV fistula - Back Exam Back exam: NORMAL INSPECTION. absent: CVA tenderness (L), CVA tenderness (R) - Neurological Exam Additional comments: lethargic, awake, GCS of 13 - Psychiatric Exam Psychiatric exam: Normal Affect, Normal Mood - Skin Skin Exam: Dry, Intact, Normal Color, Warm Results - Vital Signs Recent Vital Signs: Last Vital Signs Temp 101.3 F H 11/18/16 22:27 Pulse 85 11/18/16 22:27 Resp 16 11/18/16 22:27 BP 113/57 L 11/18/16 22:27 Pulse Ox 100 11/18/16 22:27 - Labs Result Diagrams: 11/18/16 20:10 11/18/16 20:10 Labs: Laboratory Results - last 24 hr 11/18/16 11/18/16 11/18/16 19:21 20:10 20:10 WBC 16.2 H D RBC 3.41 L Hgb 9.8 L Hct 30.2 L MCV 88.6 MCH 28.7 MCHC 32.5 RDW 16.4 H Plt Count 215 MPV 10.9 Gran % 91.6 H Lymph % (Auto) 4.0 L [place] % (Auto) 4.1 Eos % (Auto) 0.2 L Baso % (Auto) 0.1 Gran # 14.79 H Lymph # 0.7 L [place] # 0.7 H Eos # 0.0 Baso # 0.02 Neutrophils % (Manual) 93 H Lymphocytes % (Manual) 5 L Monocytes % (Manual) 2 Platelet Evaluation Normal Anisocytosis (manual) Slight Ovalocytes Slight PT 11.4 INR 1.06 APTT 26.3 pO2 VBG pH VBG pCO2 VBG HCO3 VBG Total CO2 VBG O2 Sat (Calc) VBG Base Excess VBG Potassium Sodium Chloride Glucose Lactate FiO2 Potassium Carbon Dioxide Anion Gap BUN Creatinine Est GFR ( Amer) Est GFR (Non-Af Amer) POC Glucose (mg/dL) 144 H Random Glucose Calcium Phosphorus Magnesium Total Bilirubin AST ALT Alkaline Phosphatase Total Creatine Kinase Troponin I Total Protein Albumin Globulin Albumin/Globulin Ratio Lipase Venous Blood Potassium Urine Color Urine Appearance Urine pH Ur Specific [place] Urine Protein Urine Glucose (UA) Urine Ketones Urine Blood Urine Nitrate Urine Bilirubin Urine Urobilinogen Ur Leukocyte Esterase Urine RBC Urine WBC Ur Epithelial Cells 11/18/16 11/18/16 11/18/16 20:10 20:10 22:18 WBC RBC Hgb Hct MCV MCH MCHC RDW Plt Count MPV Gran % Lymph % (Auto) [place] % (Auto) Eos % (Auto) Baso % (Auto) Gran # Lymph # [place] # Eos # Baso # Neutrophils % (Manual) Lymphocytes % (Manual) Monocytes % (Manual) Platelet Evaluation Anisocytosis (manual) Ovalocytes PT INR APTT pO2 107 H VBG pH 7.56 H VBG pCO2 32.0 L VBG HCO3 28.7 H VBG Total CO2 29.7 H VBG O2 Sat (Calc) 99.4 H VBG Base Excess 6.7 H VBG Potassium 4.5 Sodium 138.0 137 Chloride 99.0 97 L Glucose 126 H Lactate 3.5 H FiO2 21.0 Potassium 4.5 Carbon Dioxide 26 Anion Gap 19 BUN 29 H Creatinine 6.4 H Est GFR ( Amer) 10 Est GFR (Non-Af Amer) 8 POC Glucose (mg/dL) Random Glucose 123 H Calcium 8.9 Phosphorus 2.6 Magnesium 2.0 Total Bilirubin 0.5 AST 27 ALT 23 Alkaline Phosphatase 69 Total Creatine Kinase 85 Troponin I 0.29 H* D Total Protein 7.4 Albumin 3.8 Globulin 3.6 Albumin/Globulin Ratio 1.1 Lipase 376 H Venous Blood Potassium 4.5 Urine Color Yellow Urine Appearance Clear Urine pH 8.5 Ur Specific [place] 1.020 Urine Protein 100 H Urine Glucose (UA) 100 H Urine Ketones Negative Urine Blood Moderate H Urine Nitrate Negative Urine Bilirubin Negative Urine Urobilinogen 0.2 Ur Leukocyte Esterase Negative Urine RBC 25 - 30 Urine WBC 0 - 2 Ur Epithelial Cells 1 - 3 - EKG Data EKG shows normal: Sinus rhythm Rate: Tachycardia - EKG Data When Compared to Previous EKG: No Significant Change Assessment & Plan - Assessment and Plan (Free Text) Assessment: 86 year old male with a past medical history of ESRD on HD (M/W /F), prior HCAP, CAD s/p stenting, GI bleeds, CVA, Gastric cancer, Mitral valve prolapse, DM, NSTEMI, and dementia who presents to the ED via EMS for AMS, fevers, and rigors noticed today at 6:00. He was AAO x3 per spouse yesterday. Plan: 1) AMS secondary to sepsis - VBG on admission showed a lactate of 3.5, already trending down to - CT head shows atrophy and spinal vessel disease; multiple old basal ganglia lacunar infarcts; no bleed. - EKG shows no changes compared to prior; NSR, 1st degree AV block, RBBB, left anterior fasicular block. - CXR shows no changes compared to prior - CT A/P reveals fecal impaction in rectum, similar findings seen on the prior study 11/04/16; no acute solid visceral abnormality; slight increase in airspace disease possibly atelectasis at the lung bases; nonobstructing inguinal hernias. - Vancomycin and Zosyn empircally given in ED - C/W Zosyn 2.25 g IV [id number] adjusted dose, and start Doxycycline 100 mg q12h - UA negative for UTI, will f/u culture - ID consulted, Dr. Diego - Nephrology consulted, Dr. Brinda Ibarra 2) Fever - Tylenol Suppository 650 q4h for temperature greater than 99.5 F - Cooling blankets for fever > 101 F - 2 sets of blood cultures (30 minutes a part) for any fever > 101 F 3) Constipation, see CT A/P for details - Fleet enema ordered STAT - Miralax 17g BID - Dulcolax suppository MWF - C/W home Linzess 4) IDDM - C/W Levemir 5 units HS - ISS- low 5) Dementia C/W Donazepil 6) CAD - C/W aspirin 81 7) Hypertension - C/W home antihypertensives - Date & Time Date: 11/19/16 Time: 03:04 <AravindZeyad U - Last Filed: 12/15/16 21:50> Results - Vital Signs Recent Vital Signs: Last Vital Signs Temp 99.5 F 11/22/16 05:26 Pulse 77 11/22/16 10:00 Resp 20 11/22/16 05:26 BP 151/84 H 11/22/16 05:26 Pulse Ox 95 11/22/16 05:26 - Labs Result Diagrams: 11/22/16 10:30 11/22/16 10:30 Attending/Attestation - Attestation I have personally seen and examined this patient.: Yes I have fully participated in the care of the patient.: Yes I have reviewed all pertinent clinical information: Yes
--- NOTE | 2016-11-18 23:15 | CP.PCM.CON ---
<Gary Jordan - Last Filed: 11/19/16 04:28> History of Present Illness - History of Present Illness History of Present Illness: Gary Jordan DO, PGY-1, ICU consult note CC: AMS 86 year old male with PMH of ESRD on HD (M/W/F), prior HCAP, CAD s/p stenting, GI bleeds, CVA, Gastric cancer, Mitral valve prolapse, DM, and dementia who presented today with AMS, high fevers, and rigors. He was discharged yesterday from the TCU [place] [facility] [place]. I spoke to his who informed me that today at 6:00 PM when she waw going to get Mr. Lay for supper. She saw him sitting on the bed, wrapped in his robe, shivering. She asks him if he wanted dinner and he said no and continued to hug himself and shiver. While changing his adult diaper she felt how warm he was and she immediately called 911. The history obtained from the patient was limited, as he is demented and altered. PMD: Dr. Nazario PMH: as above PSH: AV fistula in L forearm FHx: none listed in prior charting SHx: as per charting, former smoker, no reported EtOH or Illicits Review of Systems - Constitutional Constitutional: Chills, Fever, Lethargy, Malaise Past Patient History - Infectious Disease Hx of Infectious Diseases: None - Tetanus Immunizations Tetanus Immunization: Unknown - Past Medical History & Family History Past Medical History?: Yes - Past Social History Smoking Status: Former Smoker - CARDIAC Hx Cardiac Disorders: Yes Hx Heart Attack: Yes Hx Hypertension: Yes - PULMONARY Hx Chronic Obstructive Pulmonary Disease (COPD): Yes - NEUROLOGICAL HX Cerebrovascular Accident: Yes - HEENT Hx HEENT Problems: Yes (WEARS RX GLASSES) Hx Epistaxis: Yes - RENAL Hx Renal Failure: Yes - ENDOCRINE/METABOLIC Hx Diabetes Mellitus Type 1: Yes - HEMATOLOGICAL/ONCOLOGICAL Hx Cancer: Yes (gastric) - INTEGUMENTARY Hx Dermatological Problems: No - MUSCULOSKELETAL/RHEUMATOLOGICAL Hx Falls: Yes (past) - GASTROINTESTINAL Hx Gastrointestinal Disorders: Yes (CONSTIPATION,GERD,DIVERTICULITIS,GASTRIC CA, COLON POLYPS,FECAL IMPACTION.) - GENITOURINARY/GYNECOLOGICAL Hx Genitourinary Disorders: Yes (OLIGURIA,ESRD ON HD MWF) Hx Reproductive Disorders: Yes (BPH) - PSYCHIATRIC Hx Psychophysiologic Disorder: No Hx Emotional Abuse: No Hx Substance Use: No - SURGICAL HISTORY Hx Cholecystectomy: Yes Hx Coronary Stent: Yes (x1) Other/Comment: AV shunt placement. - ANESTHESIA Hx Anesthesia Reactions: No Hx Malignant Hyperthermia: No Meds Allergies/Adverse Reactions: Allergies Allergy/AdvReac Type Severity Reaction Status Date / Time No Known Allergies Allergy Verified 11/18/16 19:28 - Medications Medications: Current Medications Sodium Chloride (Sodium Chloride 0.9%) 250 mls @ 100 mls/hr IV .Q2H30M FRANCISCO JAVIER Last Admin: 11/18/16 20:20 Dose: 100 mls/hr Physical Exam - Constitutional Appears: Toxic, Confused - Head Exam Head Exam: ATRAUMATIC, NORMOCEPHALIC - Eye Exam Eye Exam: EOMI, Normal appearance - ENT Exam ENT Exam: Mucous Membranes Moist, Normal Oropharynx - Neck Exam Neck exam: Positive for: Normal Inspection. Negative for: Lymphadenopathy, Meningismus - Respiratory Exam Respiratory Exam: Decreased Breath Sounds (bilaterally), Rhonchi (b/l) - Cardiovascular Exam Cardiovascular Exam: RRR, +S1, +S2 - GI/Abdominal Exam GI & Abdominal Exam: Hypoactive Bowel Sounds. absent: Guarding, Rebound, Rigid - Extremities Exam Extremities exam: Positive for: pedal pulses present. Negative for: pedal edema , tenderness Additional comments: LUE AV fistula, no erythema or induration - Back Exam Back exam: absent: CVA tenderness (L), CVA tenderness (R) - Neurological Exam Neurological exam: Altered Additional comments: GCS 13 - Psychiatric Exam Psychiatric exam: Agitated - Skin Skin Exam: Dry, Intact, Normal Color, Warm Results - Vital Signs Recent Vital Signs: Last Vital Signs Temp 101.3 F H 11/18/16 22:27 Pulse 85 11/18/16 22:27 Resp 16 11/18/16 22:27 BP 113/57 L 11/18/16 22:27 Pulse Ox 100 11/18/16 22:27 - Labs Result Diagrams: 11/18/16 20:10 11/18/16 20:10 Labs: Laboratory Results - last 24 hr 11/18/16 11/18/16 11/18/16 19:21 20:10 20:10 WBC 16.2 H D RBC 3.41 L Hgb 9.8 L Hct 30.2 L MCV 88.6 MCH 28.7 MCHC 32.5 RDW 16.4 H Plt Count 215 MPV 10.9 Gran % 91.6 H Lymph % (Auto) 4.0 L [place] % (Auto) 4.1 Eos % (Auto) 0.2 L Baso % (Auto) 0.1 Gran # 14.79 H Lymph # 0.7 L [place] # 0.7 H Eos # 0.0 Baso # 0.02 Neutrophils % (Manual) 93 H Lymphocytes % (Manual) 5 L Monocytes % (Manual) 2 Platelet Evaluation Normal Anisocytosis (manual) Slight Ovalocytes Slight PT 11.4 INR 1.06 APTT 26.3 pO2 VBG pH VBG pCO2 VBG HCO3 VBG Total CO2 VBG O2 Sat (Calc) VBG Base Excess VBG Potassium Sodium Chloride Glucose Lactate FiO2 Potassium Carbon Dioxide Anion Gap BUN Creatinine Est GFR ( Amer) Est GFR (Non-Af Amer) POC Glucose (mg/dL) 144 H Random Glucose Calcium Phosphorus Magnesium Total Bilirubin AST ALT Alkaline Phosphatase Total Creatine Kinase Troponin I Total Protein Albumin Globulin Albumin/Globulin Ratio Lipase Venous Blood Potassium Urine Color Urine Appearance Urine pH Ur Specific [place] Urine Protein Urine Glucose (UA) Urine Ketones Urine Blood Urine Nitrate Urine Bilirubin Urine Urobilinogen Ur Leukocyte Esterase Urine RBC Urine WBC Ur Epithelial Cells 11/18/16 11/18/16 11/18/16 20:10 20:10 22:18 WBC RBC Hgb Hct MCV MCH MCHC RDW Plt Count MPV Gran % Lymph % (Auto) [place] % (Auto) Eos % (Auto) Baso % (Auto) Gran # Lymph # [place] # Eos # Baso # Neutrophils % (Manual) Lymphocytes % (Manual) Monocytes % (Manual) Platelet Evaluation Anisocytosis (manual) Ovalocytes PT INR APTT pO2 107 H VBG pH 7.56 H VBG pCO2 32.0 L VBG HCO3 28.7 H VBG Total CO2 29.7 H VBG O2 Sat (Calc) 99.4 H VBG Base Excess 6.7 H VBG Potassium 4.5 Sodium 138.0 137 Chloride 99.0 97 L Glucose 126 H Lactate 3.5 H FiO2 21.0 Potassium 4.5 Carbon Dioxide 26 Anion Gap 19 BUN 29 H Creatinine 6.4 H Est GFR ( Amer) 10 Est GFR (Non-Af Amer) 8 POC Glucose (mg/dL) Random Glucose 123 H Calcium 8.9 Phosphorus 2.6 Magnesium 2.0 Total Bilirubin 0.5 AST 27 ALT 23 Alkaline Phosphatase 69 Total Creatine Kinase 85 Troponin I 0.29 H* D Total Protein 7.4 Albumin 3.8 Globulin 3.6 Albumin/Globulin Ratio 1.1 Lipase 376 H Venous Blood Potassium 4.5 Urine Color Yellow Urine Appearance Clear Urine pH 8.5 Ur Specific [place] 1.020 Urine Protein 100 H Urine Glucose (UA) 100 H Urine Ketones Negative Urine Blood Moderate H Urine Nitrate Negative Urine Bilirubin Negative Urine Urobilinogen 0.2 Ur Leukocyte Esterase Negative Urine RBC 25 - 30 Urine WBC 0 - 2 Ur Epithelial Cells 1 - 3 - EKG Data EKG Interpreted by: Myself EKG shows normal: Sinus rhythm Rate: Tachycardia (100 bpm) - EKG Data When Compared to Previous EKG: No Significant Change Assessment & Plan - Assessment and Plan (Free Text) Assessment: 86 year old male with a past medical history of ESRD on HD (M/W /F), prior HCAP, CAD s/p stenting, GI bleeds, CVA, Gastric cancer, Mitral valve prolapse, DM, NSTEMI, and dementia who presents to the ED via EMS for AMS, fevers, and rigors noticed today at 6:00. He was AAO x3 per spouse yesterday. Plan: Patient is currently afebrile, normotensive, maintaining O2 saturation in the 99 % with 2L NC in no respiratory distress, with a RR of 16. He is less confused on examination, not agitated or lethargic; oriented to person and place, He is resting comfortably, producing urine, and has no complaints. At this point, the patient does not need any ICU monitoring. We would be happy to re-evaluate the patient if, for any reason, he deteriorates. Neuro: - Awake, demented at baseline, - maintain normothermia - moving all extremities at baseline - continue home Donepezil - CTH no acute intracranial pathology - Reassess after dialysis Pulm: - Satting well on RA - maintain SaO2 > 92% - conservative O2 management, no supplemental O2 indicated at this time - Xopenox q6h FRANCISCO JAVIER, Duonebs q6h PRN Cardio: - EKG shows no changes compared to prior; NSR, 1st degree AV block, RBBB, left anterior fasicular block. - continue home ASA, lipitor, losartan, nebivolol - initial troponin 0.14 relatively low compared to prior (NSTEMI) of 27, patient has ESRD GI: -Protonix IV q12 for ppx -As per Primary, high risk for GI bleeds, has hx of GI bleeds, so type and crossed with 2 units on hold in case pt develops acute bleed -GI (Dr. Hitchcock) consulted, hx massive gi bleed, high risk will continue with recs Renal: -ESRD on HD M/W/F - Receiving HD today -Monitor I's and O's -Monitor and replete electrolytes as needed -Dr. Brinda Ibarra consulted Endocrine: - Maintain euglycemia. - C/W Levemir 5 units HS - ISS- low - Patient on HHD, low carb, renal dialysis diet Heme: -Hgb stable and well compared to prior - No signs of active bleeding ID: - Afebrile currently, f/u AM CBC w differential - Dr. Diego consulted - Given one gram of Vancomycin in ED, and renally adjusting Zosyn to 2.25 g IV q8h, and adding Doxycycline 100 mg q12h - maintain normothermia with Rectal Tylenol, Cooling blankets - Blood cultures pending. Will obtain 2 sets of blood cultures if patient has fever over 101 F DVT/GI: Heparin 5,000 units SC q12h, Protonix 40 mg Patient seen, reviewed, and discussed with attending - - Date & Time Date: 11/19/16 Time: 04:39 <Garret Jain P - Last Filed: 11/19/16 08:36> Meds - Medications Medications: Current Medications Acetaminophen (Tylenol 650 Mg Supp) 650 mg RC Q4H PRN PRN Reason: fever > 99.5 Acetaminophen (Tylenol 325mg Tab) 650 mg PO Q6H PRN PRN Reason: TEMP>=99.5F Albuterol/Ipratropium (Duoneb 3 Mg/0.5 Mg (3 Ml) Ud) 3 ml IH [id number] PRN PRN Reason: Shortness of Breath Aspirin (Ecotrin) 81 mg PO DAILY FRANCISCO JAVIER Atorvastatin Calcium (Lipitor) 40 mg PO DIN FRANCISCO JAVIER Last Admin: 11/19/16 01:48 Dose: 40 mg Benzonatate (Tessalon Perles) 100 mg PO TID [facility] Bisacodyl (Dulcolax) 10 mg RC MWF FRANCISCO JAVIER Donepezil HCl (Aricept) 10 mg PO HS FRANCISCO JAVIER Ergocalciferol (Drisdol 50,000 Intl Units Cap) 1 cap PO SAT [facility] Folic Acid (Folic Acid) 1 mg PO DAILY [facility] Sodium Chloride (Sodium Chloride 0.9%) 250 mls @ 100 mls/hr IV .Q2H30M [facility] Last Admin: 11/19/16 04:56 Dose: 100 mls/hr Doxycycline Hyclate 100 mg/ (Sodium Chloride) 100 mls @ 100 mls/hr IVPB Q12 FRANCISCO JAVIER PRN Reason: Protocol Last Admin: 11/19/16 02:35 Dose: 100 mls/hr Meropenem 250 mg/ Sodium (Chloride) 100 mls @ 100 mls/hr IVPB Q12H [facility] PRN Reason: Protocol Stop: 11/28/16 08:01 Insulin Detemir (Levemir) 5 unit SC DAILY [facility] Insulin Human Regular (Humulin R Low) 0 units SC ACHS [facility] PRN Reason: Protocol Isosorbide Mononitrate (Imdur) 120 mg PO DAILY [facility] Latanoprost (Xalatan Opht) 0 ml OU HS [facility] Levalbuterol HCl (Xopenex) 0.63 mg IH Q6H [facility] Last Admin: 11/19/16 07:27 Dose: Not Given Losartan Potassium (Cozaar) 100 mg PO DAILY [facility] Linaclotide [Linzess (] 145 Mcg (Home Med)) 145 mcg PO DAILY [facility] Nebivolol [Bystolic] (5 Mg (Home Med)) 5 mg PO DAILY [facility] Pantoprazole Sodium (Protonix Ec Tab) 40 mg PO 0600 [facility] Last Admin: 11/19/16 05:52 Dose: 40 mg Polyethylene Glycol (Miralax) 17 gm PO BID [facility] Sevelamer HCl (Renagel) 800 mg PO TID [facility] Tamsulosin HCl (Flomax) 0.4 mg PO DAILY [facility] Vitamin B Complex/Vit C/Folic Acid (Nephro-Jaylin) 1 tab PO DAILY [facility] Results - Vital Signs Recent Vital Signs: Last Vital Signs Temp 98.9 F 11/19/16 02:04 Pulse 62 11/19/16 06:00 Resp 18 11/19/16 02:04 BP 129/69 11/19/16 02:04 Pulse Ox 97 11/18/16 23:55 - Labs Result Diagrams: 11/19/16 05:30 11/19/16 05:30 Labs: Laboratory Results - last 24 hr 11/19/16 11/19/16 11/19/16 00:25 00:25 01:31 WBC RBC Hgb Hct MCV MCH MCHC RDW Plt Count MPV Gran % Lymph % (Auto) [place] % (Auto) Eos % (Auto) Baso % (Auto) Gran # Lymph # [place] # Eos # Baso # pO2 37 VBG pH 7.42 VBG pCO2 46.0 VBG HCO3 29.8 H VBG Total CO2 31.2 H VBG O2 Sat (Calc) 79.8 H VBG Base Excess 4.5 H VBG Potassium 4.2 Sodium 138.0 Chloride 101.0 Glucose 145 H Lactate 1.5 FiO2 21.0 Potassium Carbon Dioxide Anion Gap BUN Creatinine Est GFR ( Amer) Est GFR (Non-Af Amer) POC Glucose (mg/dL) 154 H Random Glucose Lactic Acid 1.4 Calcium Phosphorus Magnesium Total Bilirubin AST ALT Alkaline Phosphatase Troponin I Total Protein Albumin Globulin Albumin/Globulin Ratio Venous Blood Potassium 4.2 11/19/16 11/19/16 11/19/16 05:30 05:30 05:30 WBC 18.2 H RBC 3.25 L Hgb 9.2 L Hct 29.1 L MCV 89.5 MCH 28.3 MCHC 31.6 RDW 16.9 H Plt Count 183 MPV 11.5 H Gran % 80.4 H Lymph % (Auto) 11.0 L [place] % (Auto) 8.3 H Eos % (Auto) 0.1 L Baso % (Auto) 0.2 Gran # 14.62 H Lymph # 2.0 [place] # 1.5 H Eos # 0.0 Baso # 0.03 pO2 VBG pH VBG pCO2 VBG HCO3 VBG Total CO2 VBG O2 Sat (Calc) VBG Base Excess VBG Potassium Sodium 140 Chloride 102 Glucose Lactate FiO2 Potassium 4.5 Carbon Dioxide 26 Anion Gap 17 BUN 29 H Creatinine 6.6 H Est GFR ( Amer) 10 Est GFR (Non-Af Amer) 8 POC Glucose (mg/dL) Random Glucose 115 H Lactic Acid Calcium 8.2 L Phosphorus 3.5 Magnesium 2.0 Total Bilirubin 0.4 AST 22 ALT 24 Alkaline Phosphatase 54 Troponin I 0.50 H* D Total Protein 6.3 Albumin 3.2 Globulin 3.1 Albumin/Globulin Ratio 1.0 L Venous Blood Potassium 11/19/16 07:30 WBC RBC Hgb Hct MCV MCH MCHC RDW Plt Count MPV Gran % Lymph % (Auto) [place] % (Auto) Eos % (Auto) Baso % (Auto) Gran # Lymph # [place] # Eos # Baso # pO2 VBG pH VBG pCO2 VBG HCO3 VBG Total CO2 VBG O2 Sat (Calc) VBG Base Excess VBG Potassium Sodium Chloride Glucose Lactate FiO2 Potassium Carbon Dioxide Anion Gap BUN Creatinine Est GFR ( Amer) Est GFR (Non-Af Amer) POC Glucose (mg/dL) 118 H Random Glucose Lactic Acid Calcium Phosphorus Magnesium Total Bilirubin AST ALT Alkaline Phosphatase Troponin I Total Protein Albumin Globulin Albumin/Globulin Ratio Venous Blood Potassium Attending/Attestation - Attestation I have personally seen and examined this patient.: Yes I have fully participated in the care of the patient.: Yes I have reviewed all pertinent clinical information: Yes Notes (Text): Patient presents with confusion, some increased verbalization, found fever 103, leucocytosis, preliminary w/u not specifying source of infection test done CT abd/pelvis, cxr, labs. DD bacterimia, hd related infection, urine, early pna. Patient started on broad spectrum abx, clinically maintaining v/s and is not in distress. Will observe on tele floor.
[2016-11-19] MEDS ORDERED: Albuterol-Ipratrop 3 mg / 0.5 (3 ml) UD IH PRN (00:30)
[2016-11-19 00:38] LABS: VENOUS BLOOD GAS BASE EXCESS 4.5 mmol/L (0.0-2.0); VENOUS BLOOD PH 7.42 (7.32-7.43)
[2016-11-19] MEDS: Levalbuterol 0.63 MG/3 ML Inhal Soln UD IH SCH ×4 (01:12→20:00)
[2016-11-19 02:34] VITALS: BMI 20.9
--- NOTE | 2016-11-19 04:12 | PCM.SEPTIC ---
<Melvin Meadows - Last Filed: 11/19/16 04:11> Sepsis Progress Note - Reassessment Type Date of Evaluation: 11/19/16 Time of Evaluation: 04:11 Reassessment Type: Non-invasive reassessment - Non Invasive Reassessment Were the most recent vital sign reviewed: Yes Vital Sign (Latest): Temp Pulse Resp BP Pulse Ox 98.9 F 75 18 129/69 97 11/19/16 02:04 11/19/16 02:04 11/19/16 02:04 11/19/16 02:04 11/18/16 23:55 Cardiovascular: Yes: Regular Rate, Rhythm Respiratory: Yes: Normal Breath Sounds Capillary Refill: Normal (Less than 2 sec) Pulses: Normal Radial, Normal Dorsalis Pedis, Decreased Posterior Tibialis Skin: Warm, Dry <Shree Hogan - Last Filed: 11/19/16 04:30> Sepsis Progress Note - Non Invasive Reassessment Vital Sign (Latest): Temp Pulse Resp BP Pulse Ox 98.9 F 75 18 129/69 97 11/19/16 02:04 11/19/16 02:04 11/19/16 02:04 11/19/16 02:04 11/18/16 23:55 Attending/Attestation - Attestation I have personally seen and examined this patient.: No I have fully participated in the care of the patient.: Yes I have reviewed all pertinent clinical information, including history, physical exam and plan: Yes Notes (Text): 11/19/16 04:30 Agree with medical secretary receptionist.
[2016-11-19] MEDS: Sodium Chloride 0.9% 250 ML IV SCH (04:56)
[2016-11-19] MEDS: Pantoprazole 40 mg EC Tab PO SCH (05:52)
[2016-11-19] MEDS ORDERED: Piperacillin/Tazobact 2.25gm 2.25 GM/100 ML BAG IVPB SCH (06:00)
[2016-11-19 06:34] LABS: BASO # 0.03 K/mm3 (0.0-2.0); BASO % 0.2 % (0.0-3.0); EOS % 0.1 % (1.5-5.0); GRAN # 14.62 (1.4-6.5); GRAN % 80.4 % (50.0-68.0); HEMATOCRIT 29.1 % (42.0-52.0); MEAN CELL VOLUME 89.5 fl (80.0-105.0); MEAN CORPUSCULAR HEMOGLOBIN 28.3 pg (25.0-35.0); MEAN CORPUSCULAR HGB CONC 31.6 g/dl (31.0-37.0); MEAN PLATELET VOLUME 11.5 fl (7.0-11.0); MONO # 1.5 (0.1-0.6); MONO % 8.3 % (1.0-6.0); RED CELL DISTRIBUTION WIDTH 16.9 % (11.5-14.5); WHITE BLOOD COUNT 18.2 10^3/ul (4.5-11.0)
[2016-11-19 06:38] LABS: BILIRUBIN,TOTAL 0.4 mg/dL (0.2-1.3); CALCIUM 8.2 mg/dL (8.4-10.5); POTASSIUM 4.5 mmol/L (3.6-5.0); TOTAL PROTEIN 6.3 g/dL (5.8-8.3)
[2016-11-19 06:55] LABS: TROPONIN I 0.5 ng/mL
--- NOTE | 2016-11-19 07:13 | CP.PCM.PN ---
Addendum entered and electronically signed by Kenyetta Kendrick DO 11/19/16 11:59: Discontinue Greer catheter Original Note: <Kenyetta Kendrick - Last Filed: 11/19/16 11:49> Subjective - Date & Time of Evaluation Date of Evaluation: 11/19/16 Time of Evaluation: 07:12 - Subjective Subjective: Internal medicine progress note for Dr. Felipe Kendrick, PGY-1 Pt S & E at bedside. Pt without complaints overnight, Denies N/V/F/C, SOB, CP, pain anywhere. Per nursing, no acute events, no fevers, not given enema yet 2/2 agitation. Objective - Vital Signs/Intake and Output Vital Signs (last 24 hours): Temp Pulse Resp BP Pulse Ox 98.9 F 62 18 129/69 97 11/19/16 02:04 11/19/16 06:00 11/19/16 02:04 11/19/16 02:04 11/18/16 23:55 Intake and Output: 11/19/16 11/19/16 06:59 18:59 Intake Total 900 Output Total 100 Balance 800 - Medications Medications: Current Medications Acetaminophen (Tylenol 650 Mg Supp) 650 mg RC Q4H PRN PRN Reason: fever > 99.5 Acetaminophen (Tylenol 325mg Tab) 650 mg PO Q6H PRN PRN Reason: TEMP>=99.5F Albuterol/Ipratropium (Duoneb 3 Mg/0.5 Mg (3 Ml) Ud) 3 ml IH [id number] PRN PRN Reason: Shortness of Breath Aspirin (Ecotrin) 81 mg PO DAILY [facility] Atorvastatin Calcium (Lipitor) 40 mg PO DIN [facility] Last Admin: 11/19/16 01:48 Dose: 40 mg Benzonatate (Tessalon Perles) 100 mg PO TID [facility] Bisacodyl (Dulcolax) 10 mg RC MWF [facility] Donepezil HCl (Aricept) 10 mg PO HS [facility] Ergocalciferol (Drisdol 50,000 Intl Units Cap) 1 cap PO SAT [facility] Folic Acid (Folic Acid) 1 mg PO DAILY [facility] Sodium Chloride (Sodium Chloride 0.9%) 250 mls @ 100 mls/hr IV .Q2H30M [facility] Last Admin: 11/19/16 04:56 Dose: 100 mls/hr Piperacillin Sod/Tazobactam Sod (Zosyn 2.25 Gm In 0.9% 100 Ml) 2.25 gm in 100 mls @ 100 mls/hr IVPB Q8H [facility] PRN Reason: Protocol Stop: 11/19/16 14:59 Last Admin: 11/19/16 05:51 Dose: 100 mls/hr Doxycycline Hyclate 100 mg/ (Sodium Chloride) 100 mls @ 100 mls/hr IVPB Q12 [facility] PRN Reason: Protocol Last Admin: 11/19/16 02:35 Dose: 100 mls/hr Insulin Detemir (Levemir) 5 unit SC DAILY [facility] Insulin Human Regular (Humulin R Low) 0 units SC ACHS [facility] PRN Reason: Protocol Isosorbide Mononitrate (Imdur) 120 mg PO DAILY [facility] Latanoprost (Xalatan Opht) 0 ml OU HS [facility] Levalbuterol HCl (Xopenex) 0.63 mg IH Q6H [facility] Last Admin: 11/19/16 01:12 Dose: Not Given Losartan Potassium (Cozaar) 100 mg PO DAILY [facility] Linaclotide [Linzess (] 145 Mcg (Home Med)) 145 mcg PO DAILY [facility] Nebivolol [Bystolic] (5 Mg (Home Med)) 5 mg PO DAILY [facility] Pantoprazole Sodium (Protonix Ec Tab) 40 mg PO 0600 [facility] Last Admin: 11/19/16 05:52 Dose: 40 mg Polyethylene Glycol (Miralax) 17 gm PO BID [facility] Sevelamer HCl (Renagel) 800 mg PO TID [facility] Tamsulosin HCl (Flomax) 0.4 mg PO DAILY [facility] Vitamin B Complex/Vit C/Folic Acid (Nephro-Jaylin) 1 tab PO DAILY [facility] - Labs Labs: 11/19/16 05:30 11/19/16 05:30 PT 11.4 Seconds (9.9-11.8) 11/18/16 20:10 INR 1.06 (0.93-1.08) 11/18/16 20:10 APTT 26.3 Seconds (23.7-30.8) 11/18/16 20:10 - Constitutional Appears: Non-toxic, No Acute Distress - Head Exam Head Exam: ATRAUMATIC, NORMAL INSPECTION, NORMOCEPHALIC - Eye Exam Eye Exam: EOMI, Normal appearance - ENT Exam ENT Exam: Mucous Membranes Moist, Normal Exam - Neck Exam Neck Exam: Normal Inspection - Respiratory Exam Respiratory Exam: Decreased Breath Sounds, Rhonchi, NORMAL BREATHING PATTERN. absent: Chest Wall Tenderness, Clear to Ausculation Bilateral, Rales, Wheezes, Respiratory Distress, Stridor - Cardiovascular Exam Cardiovascular Exam: REGULAR RHYTHM, +S1, +S2 - GI/Abdominal Exam GI & Abdominal Exam: Soft, Normal Bowel Sounds. absent: Distended, Firm, Guarding, Rigid, Tenderness - Extremities Exam Extremities Exam: Normal Inspection. absent: Pedal Edema Additional comments: Left AVF w/bruit, thrill - Neurological Exam Neurological Exam: Alert, Awake, CN II-XII Intact, Oriented x3 - Psychiatric Exam Psychiatric exam: Normal Affect, Normal Mood - Skin Skin Exam: Dry, Intact, Normal Color, Warm Assessment and Plan - Assessment and Plan (Free Text) Assessment: 85Y AA M with PMH CVA, ESRD on HD (MWF), dementia, CAD s/p stent, DM, MVP, GI bleed, gastric cancer who was admitted for AMS, stable overnight Plan: AMS- resolved Baseline AOx2 Currently AOx3 CT brain - Atrophy and spinal vessel disease; multiple old basal ganglia lacunar infarcts; no bleed Monitor Fever Tmax 103.2 Leukcytosis 18.2 from 16.2 Tylenol PO and RC NS@100 - d/c'd 2/2 fluid overload FU procalc FU blood cx FU Urine cx Merrem CXR - No active disease ID following Constipation CT ab- Fecal impaction with constipation, similar findings seen on the prior study 11/04/16; no acute solid visceral abnormality; slight increase in airspace disease possibly atelectasis at the lung bases; non-obstructing inguinal hernias Dulcolax Miralax Linzess FU enema Monitor Dementia Aricept Monitor Anemia/Hx GI bleed Avoid NSAIDS, anticoagulants Contraindications to VTE ppx Recent NSTEMI ASA High risk for GI bleed contraindications to other anticoagulations Lipitor ESRD on HD HD (MWF) Renagel Nephro-Vit Folic Acid Vit D Nephro following DM ISS Levemir Accuchecks Diabetic/renal diet when swallow eval completed HTN Lopressor Cozaar Imdur Bystolic COPD Tessalon Perles Xopenex Mucomyst Chest PT Hx Glaucoma Latanoprost Hx of BPH Flomax GI/DVT ppx TEDs SCDs Protonix Contraindications to VTE ppx 2/2 high risk of GI bleed Dispo NPO Swallow eval PT OT TCU evals OOBTC Activity as nima Will DW attending Mireille, PGY-1 <AravindZeyad U - Last Filed: 12/15/16 21:50> Objective - Vital Signs/Intake and Output Vital Signs (last 24 hours): Temp Pulse Resp BP Pulse Ox 99.5 F 77 20 151/84 H 95 11/22/16 05:26 11/22/16 10:00 11/22/16 05:26 11/22/16 05:26 11/22/16 05:26 - Labs Labs: 11/22/16 10:30 11/22/16 10:30 PT 11.4 Seconds (9.9-11.8) 11/18/16 20:10 INR 1.06 (0.93-1.08) 11/18/16 20:10 APTT 26.3 Seconds (23.7-30.8) 11/18/16 20:10 Attending/Attestation - Attestation I have personally seen and examined this patient.: Yes I have fully participated in the care of the patient.: Yes I have reviewed all pertinent clinical information, including history, physical exam and plan: Yes
[2016-11-19 07:39] LABS: PHOSPHOROUS 3.5 mg/dL (2.5-4.5)
[2016-11-19] MEDS ORDERED: Vancomycin 500mg in NS 500 MG/100 ML BAG IVPB STA (08:00)
[2016-11-19] MEDS: Insulin Reg-LOW-Coverage SC SCH ×3 (08:11→22:01)
--- NOTE | 2016-11-19 08:13 | RAD ---
HISTORY: altered COMPARISON: 11/07/2016 FINDINGS: LUNGS: No active pulmonary disease. PLEURA: No significant pleural effusion identified, no pneumothorax apparent. CARDIOVASCULAR: Unremarkable OSSEOUS STRUCTURES: No significant abnormalities. VISUALIZED UPPER ABDOMEN: Normal. OTHER FINDINGS: None. IMPRESSION: No active disease.
[2016-11-19] MEDS: Insulin Detemir 100 units/ml Vial (Levemir) SC SCH (11:29)
[2016-11-19] MEDS: POLYETHYLENE GLYCOL 3350 17 GM/Dose PACKET PO SCH ×2 (11:30→17:55)
[2016-11-19] MEDS: Multivitamin Vitamin B Complex (Nephro-Vite) Tab PO SCH (11:34)
[2016-11-19] MEDS: NEBIVOLOL 5 MG PO SCH (11:48)
[2016-11-19] MEDS: Acetylcysteine 20% Inhal Soln (4ml) IH SCH ×2 (13:08→20:00)
--- NOTE | 2016-11-19 15:40 | CARD ---
APPROVED REPORT EKG Measurement Heart [id number] MD [id number] <Conclusion> Sinus rhythm with sinus arrhythmia with 1st degree AV block Right bundle branch block Left anterior fascicular block Bifascicular block T wave abnormality, consider lateral ischemia Abnormal ECG
--- NOTE | 2016-11-19 17:40 | CON ---
DATE: 11/19/2016 LOCATION: The patient is seen in room number 263, bed 1. CHIEF COMPLAINT: Sepsis and altered mental status x1 day. The patient was seen in emergency room by Dr. Katt Richards. The patient was transferred to emergency room for transitional care. HISTORY OF PRESENT ILLNESS: This is a 86-year-old male who was discharged from transitional care day before and was admitted with a [id number] [place] with history of hypertension and dementia and anemia with end-stage renal disease on hemodialysis, diabetes mellitus and GI bleed by history. Admitted from home with change in mental status and fever and this morning, the patient is awake, he knows where he is, he knows what year it is, and he knows his name. He does not know who is the president of [employer] is. There has been no abdominal pain, no diarrhea, and no constipation. No headaches or blurry vision. PAST MEDICAL HISTORY: Significant for hypertension, dementia, anemia, end-stage renal disease on hemodialysis, diabetes mellitus, GI bleed, coronary artery disease, cerebrovascular accident, gastric cancer, and mitral valve prolapse. PAST SURGICAL HISTORY: Significant for AV shunt placement. MEDICATIONS: At home are reviewed and include vitamin D, Lipitor, aspirin, insulin, Aricept, and Bystolic. PHYSICAL EXAMINATION VITAL SIGNS: The patient is in bed with a temperature of 98, T-max was 103.2, respiratory rate of 18, heart rate of 83, pulse up to 100, and blood pressure of 126/50. HEENT: Unremarkable. NECK: Supple. LUNGS: Have decreased breath sounds. HEART: Normal S1 and S2. ABDOMEN: Soft and nontender. No organomegaly. No rebound. No guarding. No masses. Review of orders revealed that the patient received a dose of vancomycin and Zosyn in the emergency room and emergency room had ordered blood cultures and urine cultures, which was collected. The patient had a CAT scan of the abdomen and pelvis in the emergency room. There is increased airspace disease in the lower lobes, but no GI and no abdominal findings. note is reviewed from today. Dr. Hogan's sepsis progress note is reviewed. Review of the cultures from previous admissions reveals the blood cultures have been negative in the past and now on 2013, the patient had a coagulase-negative Staphylococcus in one bottle. LABORATORY DATA: Examination reveals that the patient's white count of 16,200, platelets of 215, hemoglobin of 9, BUN of 29, and creatinine of 6.6. Troponin is 0.5. Urinalysis is noted, 0 to 2 wbc's. Microbiology pending. DIAGNOSTIC DATA: The patient had a chest x-ray, the results are pending. Review of the chest x-ray is noted, official report is pending. The patient also had a CAT scan of the head which reveals atrophy, multiple basal ganglion infarct, and no bleed. ASSESSMENT AND PLAN: An 86-year-old male with a history of coronary artery disease, non-ST elevation myocardial infarction, hypertension, dementia, anemia, end-stage renal disease on hemodialysis, mitral valve prolapse, diabetes mellitus, gastrointestinal bleed, coronary artery disease, cerebrovascular accident, history of gastric cancer, presenting with a fever of 103, heart rate of 100, leukocytosis with white count of 16,000 with number 1 is sepsis with healthcare associated bibasilar pneumonia, possible Gram positive cocci, possible Gram negative nate, treated the patient with doxycycline and meropenem. The patient was given a dose of vancomycin pending blood cultures, rule out bacteremia. We will treat with intermittent vancomycin, meropenem, and doxycycline. Pending blood culture results, rule out bacteremia and chest x-ray report, and procalcitonin. We will make further recommendations upon availability of initial results. We will give another dose of vancomycin 500 mg. Magdy Diego MD
[2016-11-19] MEDS: Latanoprost 2.5 ml Opht Soln OU SCH (22:33)
[2016-11-20] MEDS: Levalbuterol 0.63 MG/3 ML Inhal Soln UD IH SCH ×4 (02:15→19:23)
[2016-11-20] MEDS: Acetylcysteine 20% Inhal Soln (4ml) IH SCH ×4 (02:15→19:23)
--- NOTE | 2016-11-20 04:12 | CON ---
DATE: 11/19/[address] The patient admitted for Dr. Nazario. REFERRING PHYSICIAN: Dr. Nazario. REASON FOR CONSULTATION: To provide dialysis services for a patient admitted with possible sepsis. HISTORY OF PRESENT ILLNESS: The patient is an 86-year-old black male known to me from outpatient dialysis. The patient was discharged from the hospital on 11/17/2016 after having spent 8 days in the TCU. The patient was initially admitted to the hospital for an acute NSTEMI. The patient was home for approximately 24 hours, when his noted him to be shivering and shaking in the chair. She brought him to the hospital. He was noted to have an elevated white blood cell count, and he was admitted with a diagnosis of possible sepsis. The patient has a history of end-stage renal disease, on chronic maintenance dialysis on Tuesday, Tuesday and Tuesday at [facility]; history of NIDDM; history of ASHD, status post PTCA, status post bare-metal stent earlier this year; history of a recent NSTEMI; history of dementia; CVA; history of gastric cancer; history of hypertension; history of secondary hyperparathyroidism. The patient is currently seen on dialysis. The patient presently has no acute complaints. PAST MEDICAL HISTORY: Significant for end-stage renal disease, NIDDM, hypertension, ASHD, past history of CVA, history of gastric cancer, history of dementia, history of hypertension, history of secondary hyperparathyroidism. The patient has a left upper extremity AV fistula. MEDICATIONS: At home include that of; vitamin D, Tessalon Perles p.r.n., Lipitor, low-dose aspirin, DuoNeb, Tylenol, Levemir, folic acid, Aricept, Renagel, omeprazole, Bystolic, Cozaar, Linzess, Imdur, Travatan, Flomax, and multivitamins. ALLERGIES: THE PATIENT HAS NO KNOWN ALLERGIES TO MEDICATION. PRESENT MEDICATIONS: At hospital include that of acetylcysteine, Aricept, Cozaar, doxycycline, ergocalciferol, Dulcolax, aspirin, Flomax, folic acid, insulin, Imdur, Linzess, Lipitor, meropenem, MiraLax, Bystolic, Nephro-Jaylin, Protonix, Renagel, Tessalon Perles, Tylenol p.r.n., Xalatan, and Xopenex. SOCIAL HISTORY: No history of alcohol use. Past history of cigarettes. FAMILY HISTORY: Reviewed and is unchanged from previous encounter and is noncontributory. REVIEW OF SYSTEMS: GENERAL: The patient states that his weight has remained stable throughout the last 2 weeks, most of which was spent in the hospital. Appetite has been stable. EAR, NOSE, AND THROAT: Denies any hearing or visual problems. PULMONARY: No shortness of breath. No history of asthma. No history of COPD. CARDIAC: History as noted above. GASTROINTESTINAL: History of constipation. No abdominal pain, nausea, vomiting, or diarrhea. GENITOURINARY: History of end-stage renal disease, on chronic maintenance dialysis. ENDOCRINE: History of diabetes and history of secondary hyperparathyroidism. MUSCULOSKELETAL: No complaints. NEUROLOGIC: Past history of CVA. HEMATOLOGY AND ONCOLOGY: History of anemia secondary to chronic kidney disease, history of gastric cancer. PSYCHIATRIC: History is negative. PHYSICAL EXAMINATION: GENERAL: The patient is currently seen on dialysis. VITAL SIGNS: Blood pressure 118/62 with a heart rate of 61. We are ultrafiltrating 1.5 L of fluid. Temperature 98.1 and respiratory rate of 19. HEENT: Shows him to be normocephalic, atraumatic. Conjunctivae are pale. Sclerae nonicteric. Pupils equal, reactive to light and accommodation. Extraocular muscles are intact. Posterior pharynx is normal. NECK: Supple without neck vein distension. No thyromegaly. No lymphadenopathy. No bruits. CHEST: Clear to auscultation and percussion with slight decreased breath sounds at the bases. No rales. No rhonchi. No wheezing. CARDIOVASCULAR: Shows a regular rate and rhythm with soft systolic murmur, left lower sternal border. No S3, no S4. No rub. ABDOMEN: Soft. Bowel sounds are normal. No rebound, no guarding, no masses. No organomegaly noted. BACK: No CVAT. No spinal tenderness. EXTREMITIES: Shows a cannulated left upper extremity AV fistula with flow rates of 450 mL per minute. No lower extremity cyanosis, clubbing, or edema. NEUROLOGIC: Shows him to be alert, oriented, somewhat lethargic, tired, but appropriately answering questions. LABORATORY DATA AND IMAGING: Admitting chest x-ray shows no acute pulmonary disease, admitting abdominal and pelvic CT scan shows fecal impaction but no acute findings. Admitting head CT shows atrophy with old lacunar and basal ganglia infarcts unchanged from past studies. Labs: CBC: White blood cell count on admission 16.2, today 18.2. Hemoglobin down from 9.8 to 9.2. Platelet count is 183,000. Coags are normal. Blood gas today shows a pH of 7.42 with a pO2 of 37 and a pCO2 of 31.2 likely representing a venous blood gas. Chemistries today showed BUN of 29 with a creatinine of 6.6, electrolytes are normal. Glucose is 115. Calcium 8.2 with a phosphorous of 3.5 and a magnesium level of 2.0. Troponin mildly elevated at 0.50 likely secondary to chronic kidney disease. Liver enzymes are normal. Albumin is 3.2. Urine showed 25 to 30 red blood cells per high-power field, only 0 to 2 white blood cells per high-power field, 2+ protein in the urine. Microbiology is pending at the time of this dictation. ASSESSMENT: 1. End-stage renal disease. The patient will continue Tuesday, Tuesday and Tuesday dialysis. He was discharged home for approximately 1 day and returned with chills, rigors and a temperature of 103.2 documented in the emergency room. He is currently afebrile on antibiotic therapy. 2. Sepsis. Etiology at the time of this dictation is unknown. Chest x-ray appears to be normal. AV access does not appear to be infected. Abdominal CT scan is negative. The patient had been pancultured, all cultures are pending. We will continue empiric antibiotic therapy. 3. Non-insulin dependent diabetes mellitus. The patient will continue low-dose long-acting insulin with sliding scale insulin. Glucose control is acceptable. 4. History of arteriosclerotic heart disease, status post percutaneous transluminal coronary angioplasty with bare-metal stent earlier this year. He was status post a recent admission to the hospital for Non-ST elevation myocardial infarction. He appears to be stable from a cardiac standpoint. 5. Past history of cerebrovascular accident as evidenced on head CT scan, which showed atrophy with old lacunar and basal ganglia infarcts. No acute cerebellar infarction noted. 6. History of dementia, stable on medical therapy. 7. History of hypertension. Blood pressure controlled on current medication. 8. History of secondary hyperparathyroidism. Phosphorous level is controlled. The patient will continue binder therapy. He is on Renagel 3 times a day with meals and a renal diet. PLAN: 1. Agree with empiric antibiotic therapy given his presentation with chills, rigors and fevers. Elevated white blood cell count noted. The patient is currently on broad-spectrum antibiotics and his antibiotics can likely be adjusted once culture results come back. 2. We will continue to support the patient with Tuesday, Tuesday and Tuesday dialysis. 3. In light of his renal disease and secondary hyperparathyroidism, the patient will continue renal diet and continue binder therapy. 4. Cardiology and infectious disease consults are pending. 5. We will continue to monitor the patient closely during the hospitalization. Thank you for letting me partake and share in the care of our mutual patient. William Erickson MD
[2016-11-20] MEDS: Pantoprazole 40 mg EC Tab PO SCH (06:12)
[2016-11-20 07:04] LABS: BILIRUBIN,TOTAL 0.4 mg/dL (0.2-1.3); CALCIUM 8.2 mg/dL (8.4-10.5); MAGNESIUM 1.9 mg/dL (1.7-2.2); PHOSPHOROUS 2.4 mg/dL (2.5-4.5); POTASSIUM 3.7 mmol/L (3.6-5.0); TOTAL PROTEIN 6.5 g/dL (5.8-8.3)
[2016-11-20] MEDS: Insulin Reg-LOW-Coverage SC SCH ×4 (07:49→23:40)
[2016-11-20 09:09] LABS: BASO # 0.03 K/mm3 (0.0-2.0); BASO % 0.4 % (0.0-3.0); EOS # 0.1 (0.0-0.7); EOS % 0.8 % (1.5-5.0); GRAN # 5.22 (1.4-6.5); GRAN % 62.6 % (50.0-68.0); HEMATOCRIT 26.3 % (42.0-52.0); LYMPH # 1.3 (1.2-3.4); MEAN CELL VOLUME 89.5 fl (80.0-105.0); MEAN CORPUSCULAR HEMOGLOBIN 28.6 pg (25.0-35.0); MEAN CORPUSCULAR HGB CONC 31.9 g/dl (31.0-37.0); MEAN PLATELET VOLUME 11.9 fl (7.0-11.0); MONO # 1.7 (0.1-0.6); MONO % 20.2 % (1.0-6.0); RED CELL DISTRIBUTION WIDTH 16.8 % (11.5-14.5); WHITE BLOOD COUNT 8.4 10^3/ul (4.5-11.0)
[2016-11-20 09:15] LABS: BILIRUBIN,DIRECT 0.4 mg/dL (0.0-0.4); BILIRUBIN,TOTAL 0.4 mg/dL (0.2-1.3); TOTAL PROTEIN 6.5 g/dL (5.8-8.3)
[2016-11-20] MEDS: Insulin Detemir 100 units/ml Vial (Levemir) SC SCH (09:26)
[2016-11-20] MEDS: POLYETHYLENE GLYCOL 3350 17 GM/Dose PACKET PO SCH ×2 (09:27→17:53)
[2016-11-20] MEDS: Multivitamin Vitamin B Complex (Nephro-Vite) Tab PO SCH (09:27)
[2016-11-20] MEDS: NEBIVOLOL 5 MG PO SCH (09:29)
[2016-11-20] MEDS ORDERED: Ergocalciferol 50,000 Intl Units Cap PO SCH (10:00)
--- NOTE | 2016-11-20 13:18 | CP.PCM.PN ---
Subjective - Date & Time of Evaluation Date of Evaluation: 11/20/16 Time of Evaluation: 13:15 - Subjective Subjective: seen and examined no acute events o/n Objective - Vital Signs/Intake and Output Vital Signs (last 24 hours): Temp Pulse Resp BP Pulse Ox 98.8 F 78 20 135/78 97 11/20/16 12:00 11/20/16 12:00 11/20/16 12:00 11/20/16 12:00 11/20/16 06:00 Intake and Output: 11/20/16 11/20/16 06:59 18:59 Intake Total 240 Output Total 50 Balance 190 - Medications Medications: Current Medications Acetaminophen (Tylenol 650 Mg Supp) 650 mg RC Q4H PRN PRN Reason: fever > 99.5 Acetaminophen (Tylenol 325mg Tab) 650 mg PO Q6H PRN PRN Reason: TEMP>=99.5F Acetylcysteine (Acetylcysteine 20%) 4 ml IH [id number] [facility] Last Admin: 11/20/16 08:12 Dose: Not Given Aspirin (Ecotrin) 81 mg PO DAILY [facility] Last Admin: 11/20/16 09:27 Dose: 81 mg Atorvastatin Calcium (Lipitor) 40 mg PO DIN [facility] Last Admin: 11/19/16 17:58 Dose: 40 mg Benzonatate (Tessalon Perles) 100 mg PO TID [facility] Last Admin: 11/20/16 09:27 Dose: 100 mg Bisacodyl (Dulcolax) 10 mg RC MWF [facility] Last Admin: 11/19/16 11:36 Dose: Not Given Donepezil HCl (Aricept) 10 mg PO HS [facility] Last Admin: 11/19/16 22:07 Dose: 10 mg Doxycycline Hyclate (Doryx) 100 mg PO Q12 [facility] PRN Reason: Protocol Stop: 11/27/16 22:01 Ergocalciferol (Drisdol 50,000 Intl Units Cap) 1 cap PO SAT [facility] Last Admin: 11/20/16 09:27 Dose: 1 cap Folic Acid (Folic Acid) 1 mg PO DAILY [facility] Last Admin: 11/20/16 09:30 Dose: 1 mg Meropenem 250 mg/ Sodium (Chloride) 100 mls @ 100 mls/hr IVPB Q12H [facility] PRN Reason: Protocol Stop: 11/28/16 08:01 Last Admin: 11/20/16 11:25 Dose: 100 mls/hr Insulin Detemir (Levemir) 5 unit SC DAILY [facility] Last Admin: 11/20/16 09:26 Dose: 5 unit Insulin Human Regular (Humulin R Low) 0 units SC ACHS [facility] PRN Reason: Protocol Last Admin: 11/20/16 12:21 Dose: 3 units Isosorbide Mononitrate (Imdur) 120 mg PO DAILY [facility] Last Admin: 11/20/16 09:27 Dose: 120 mg Latanoprost (Xalatan Opht) 0 ml OU HS [facility] Last Admin: 11/19/16 22:33 Dose: Not Given Levalbuterol HCl (Xopenex) 0.63 mg IH Q6H [facility] Last Admin: 11/20/16 08:12 Dose: Not Given Losartan Potassium (Cozaar) 100 mg PO DAILY [facility] Last Admin: 11/20/16 09:27 Dose: 100 mg Linaclotide [Linzess (] 145 Mcg (Home Med)) 145 mcg PO DAILY [facility] Last Admin: 11/20/16 09:29 Dose: Not Given Nebivolol [Bystolic] (5 Mg (Home Med)) 5 mg PO DAILY [facility] Last Admin: 11/20/16 09:29 Dose: Not Given Pantoprazole Sodium (Protonix Ec Tab) 40 mg PO 0600 [facility] Last Admin: 11/20/16 06:12 Dose: Not Given Polyethylene Glycol (Miralax) 17 gm PO BID [facility] Last Admin: 11/20/16 09:27 Dose: Not Given Sevelamer HCl (Renagel) 800 mg PO TID [facility] Last Admin: 11/20/16 09:26 Dose: 800 mg Tamsulosin HCl (Flomax) 0.4 mg PO DAILY [facility] Last Admin: 11/20/16 09:26 Dose: 0.4 mg Vitamin B Complex/Vit C/Folic Acid (Nephro-Jaylin) 1 tab PO DAILY [facility] Last Admin: 11/20/16 09:27 Dose: 1 tab Ziprasidone (Geodon Inj) 10 mg IM Q6H PRN; Protocol PRN Reason: Agitation - Labs Labs: 11/20/16 08:00 11/20/16 06:00 PT 11.4 Seconds (9.9-11.8) 11/18/16 20:10 INR 1.06 (0.93-1.08) 11/18/16 20:10 APTT 26.3 Seconds (23.7-30.8) 11/18/16 20:10 - Constitutional Appears: Non-toxic - Head Exam Head Exam: ATRAUMATIC - Eye Exam Eye Exam: Normal appearance - ENT Exam ENT Exam: Normal Exam - Neck Exam Neck Exam: Normal Inspection - Respiratory Exam Respiratory Exam: NORMAL BREATHING PATTERN - Cardiovascular Exam Cardiovascular Exam: +S1, +S2 - GI/Abdominal Exam GI & Abdominal Exam: Normal Bowel Sounds - Extremities Exam Additional comments: trace edema - Neurological Exam Additional comments: follows commands - Psychiatric Exam Psychiatric exam: Normal Mood - Skin Skin Exam: Warm Assessment and Plan - Assessment and Plan (Free Text) Assessment: ESRD/ Anemia of Renal Disease / Hypophosphatemia/ Sepsis/ Altered Mental Status plan: HD tomorrow will give aranesp this week, monitor H&H will hold renvela in light of low phos avoid fleet phos enema abx per primary team dose for esrd
--- NOTE | 2016-11-20 14:52 | PN ---
DATE: 11/20/2016 SUBJECTIVE: The patient is seen in bed, in no acute distress and nontoxic. He was seen earlier this morning in room number 263, bed 1. PHYSICAL EXAMINATION: VITAL SIGNS: Temperature is 98, his fever is subsided. He did have T-max of 103 on the 11/18/2016, two days ago. Blood pressure is 140/80 and respiratory rate of 18. HEENT: Unremarkable. NECK: Supple. LUNGS: Decrease breath sounds. HEART: Normal S1 and S2. ABDOMEN: Soft and nontender. LABORATORY DATA: Examination reveals a white count of 8.4, hemoglobin of 8, and platelets of 179. Chemistry is reveals BUN of 17, and creatinine of 4.4. Troponin is 0.86. Urinalysis is noted and blood cultures are negative. Urine cultures are negative. MEDICATIONS: Review of the medications reveals that the patient to be on doxycycline and the patient is also on meropenem. ASSESSMENT AND PLAN: An 86-year-old male who had recent hospitalization seen earlier this morning in room number 263, bed 1, with coronary artery disease, [id number] myocardial infarction, hypertension, dementia, anemia, end-stage renal disease on hemodialysis, mitral valve prolapse, diabetes mellitus, gastrointestinal bleeding, coronary artery disease, cerebrovascular accident and history of gastric cancer presenting with sepsis with heart rate of 100 with temperature of 103, white count of 16,000, and with negative blood cultures and with healthcare associated pneumonia is the source. The fever is subsided, the heart rate is improved and the white count today is down to 8.4 on day number 2 of meropenem and doxycycline with complete with 4 to 7 days of antibiotics. We will check on the final cultures results as of 24 hours. The blood cultures and urine cultures are no growth. The patient's chest x-ray was reported to be no active disease, however the patient had a CAT scan of the abdomen and pelvis, which reveled to be negative for abdomen and however showed airspace disease in the lung as the source of the sepsis. Day number 2 of meropenem and doxycycline, we changed the doxycycline to p.o. with complete 4 to 7 days of antibiotics. Magdy Diego MD
--- NOTE | 2016-11-20 21:51 | CP.PCM.PN ---
Subjective - Date & Time of Evaluation Date of Evaluation: 11/20/16 Time of Evaluation: 21:48 - Subjective Subjective: S: It was requested to insert heparin lock for blood transfusion. Has no other complaints. Pertinent medical record was reviewed. O: Last Vital Signs 3 Temp 97.8 F 11/20/16 16:34 Pulse 86 11/20/16 18:00 Resp 20 11/20/16 16:34 BP 130/71 11/20/16 16:34 Pulse Ox 97 11/20/16 06:00 Awake, alert, not in distress. LUNGS: Normal breathing pattern. A:Poor venous access. Encounter for intravenous line placement. P:# 20 angiocath was inserted in right distal forearm. Objective - Vital Signs/Intake and Output Vital Signs (last 24 hours): Temp Pulse Resp BP Pulse Ox 97.8 F 86 20 130/71 97 11/20/16 16:34 11/20/16 18:00 11/20/16 16:34 11/20/16 16:34 11/20/16 06:00 Intake and Output: 11/20/16 11/21/16 18:59 06:59 Intake Total 240 Output Total 50 Balance 190 - Medications Medications: Current Medications Acetaminophen (Tylenol 650 Mg Supp) 650 mg RC Q4H PRN PRN Reason: fever > 99.5 Acetaminophen (Tylenol 325mg Tab) 650 mg PO Q6H PRN PRN Reason: TEMP>=99.5F Acetylcysteine (Acetylcysteine 20%) 4 ml IH [id number] [facility] Last Admin: 11/20/16 19:23 Dose: Not Given Aspirin (Ecotrin) 81 mg PO DAILY [facility] Last Admin: 11/20/16 09:27 Dose: 81 mg Atorvastatin Calcium (Lipitor) 40 mg PO DIN [facility] Last Admin: 11/20/16 17:53 Dose: 40 mg Benzonatate (Tessalon Perles) 100 mg PO TID [facility] Last Admin: 11/20/16 17:56 Dose: 100 mg Bisacodyl (Dulcolax) 10 mg RC MWF [facility] Last Admin: 11/19/16 11:36 Dose: Not Given Donepezil HCl (Aricept) 10 mg PO HS [facility] Last Admin: 11/19/16 22:07 Dose: 10 mg Doxycycline Hyclate (Doryx) 100 mg PO Q12 [facility] PRN Reason: Protocol Stop: 11/27/16 22:01 Ergocalciferol (Drisdol 50,000 Intl Units Cap) 1 cap PO SAT [facility] Last Admin: 11/20/16 09:27 Dose: 1 cap Folic Acid (Folic Acid) 1 mg PO DAILY [facility] Last Admin: 11/20/16 09:30 Dose: 1 mg Meropenem 250 mg/ Sodium (Chloride) 100 mls @ 100 mls/hr IVPB Q12H [facility] PRN Reason: Protocol Stop: 11/28/16 08:01 Last Admin: 11/20/16 21:03 Dose: 100 mls/hr Insulin Detemir (Levemir) 5 unit SC DAILY [facility] Last Admin: 11/20/16 09:26 Dose: 5 unit Insulin Human Regular (Humulin R Low) 0 units SC ACHS [facility] PRN Reason: Protocol Last Admin: 11/20/16 17:14 Dose: Not Given Isosorbide Mononitrate (Imdur) 120 mg PO DAILY [facility] Last Admin: 11/20/16 09:27 Dose: 120 mg Latanoprost (Xalatan Opht) 0 ml OU HS [facility] Last Admin: 11/19/16 22:33 Dose: Not Given Levalbuterol HCl (Xopenex) 0.63 mg IH Q6H [facility] Last Admin: 11/20/16 19:23 Dose: Not Given Losartan Potassium (Cozaar) 100 mg PO DAILY [facility] Last Admin: 11/20/16 09:27 Dose: 100 mg Linaclotide [Linzess (] 145 Mcg (Home Med)) 145 mcg PO DAILY [facility] Last Admin: 11/20/16 09:29 Dose: Not Given Nebivolol [Bystolic] (5 Mg (Home Med)) 5 mg PO DAILY [facility] Last Admin: 11/20/16 09:29 Dose: Not Given Pantoprazole Sodium (Protonix Ec Tab) 40 mg PO 0600 [facility] Last Admin: 11/20/16 06:12 Dose: Not Given Polyethylene Glycol (Miralax) 17 gm PO BID [facility] Last Admin: 11/20/16 17:53 Dose: Not Given Risperidone (Risperdal Tab) 0.25 mg PO Q4H PRN PRN Reason: Restlessness Tamsulosin HCl (Flomax) 0.4 mg PO DAILY [facility] Last Admin: 11/20/16 09:26 Dose: 0.4 mg Vitamin B Complex/Vit C/Folic Acid (Nephro-Jaylin) 1 tab PO DAILY [facility] Last Admin: 11/20/16 09:27 Dose: 1 tab Ziprasidone (Geodon Inj) 10 mg IM Q6H PRN; Protocol PRN Reason: Agitation - Labs Labs: 11/20/16 08:00 11/20/16 06:00 PT 11.4 Seconds (9.9-11.8) 11/18/16 20:10 INR 1.06 (0.93-1.08) 11/18/16 20:10 APTT 26.3 Seconds (23.7-30.8) 11/18/16 20:10
--- NOTE | 2016-11-20 21:57 | CP.PCM.PN ---
<Melvin Meadows - Last Filed: 11/20/16 21:53> Subjective - Date & Time of Evaluation Date of Evaluation: 11/20/16 Time of Evaluation: 21:55 - Subjective Subjective: Progress note for Dr. Nazario - PGY-1 IM Raymond Meadows Discussed with patient medical plan for blood transfusion. Patient did not sign consent form for blood transfusion. Dr. Nazraio was notified. He instructed me to contact and get consent over the phone. Mrs. Lay was contacted and she was agreeable for consent for blood transfusion. Objective - Vital Signs/Intake and Output Vital Signs (last 24 hours): Temp Pulse Resp BP Pulse Ox 97.8 F 86 20 130/71 97 11/20/16 16:34 11/20/16 18:00 11/20/16 16:34 11/20/16 16:34 11/20/16 06:00 Intake and Output: 11/20/16 11/21/16 18:59 06:59 Intake Total 240 Output Total 50 Balance 190 - Medications Medications: Current Medications Acetaminophen (Tylenol 650 Mg Supp) 650 mg RC Q4H PRN PRN Reason: fever > 99.5 Acetaminophen (Tylenol 325mg Tab) 650 mg PO Q6H PRN PRN Reason: TEMP>=99.5F Acetylcysteine (Acetylcysteine 20%) 4 ml IH [id number] [facility] Last Admin: 11/20/16 19:23 Dose: Not Given Aspirin (Ecotrin) 81 mg PO DAILY [facility] Last Admin: 11/20/16 09:27 Dose: 81 mg Atorvastatin Calcium (Lipitor) 40 mg PO DIN [facility] Last Admin: 11/20/16 17:53 Dose: 40 mg Benzonatate (Tessalon Perles) 100 mg PO TID [facility] Last Admin: 11/20/16 17:56 Dose: 100 mg Bisacodyl (Dulcolax) 10 mg RC MWF [facility] Last Admin: 11/19/16 11:36 Dose: Not Given Donepezil HCl (Aricept) 10 mg PO HS [facility] Last Admin: 11/19/16 22:07 Dose: 10 mg Doxycycline Hyclate (Doryx) 100 mg PO Q12 [facility] PRN Reason: Protocol Stop: 11/27/16 22:01 Ergocalciferol (Drisdol 50,000 Intl Units Cap) 1 cap PO SAT [facility] Last Admin: 11/20/16 09:27 Dose: 1 cap Folic Acid (Folic Acid) 1 mg PO DAILY [facility] Last Admin: 11/20/16 09:30 Dose: 1 mg Meropenem 250 mg/ Sodium (Chloride) 100 mls @ 100 mls/hr IVPB Q12H [facility] PRN Reason: Protocol Stop: 11/28/16 08:01 Last Admin: 11/20/16 21:03 Dose: 100 mls/hr Insulin Detemir (Levemir) 5 unit SC DAILY [facility] Last Admin: 11/20/16 09:26 Dose: 5 unit Insulin Human Regular (Humulin R Low) 0 units SC ACHS [facility] PRN Reason: Protocol Last Admin: 11/20/16 17:14 Dose: Not Given Isosorbide Mononitrate (Imdur) 120 mg PO DAILY [facility] Last Admin: 11/20/16 09:27 Dose: 120 mg Latanoprost (Xalatan Opht) 0 ml OU HS [facility] Last Admin: 11/19/16 22:33 Dose: Not Given Levalbuterol HCl (Xopenex) 0.63 mg IH Q6H [facility] Last Admin: 11/20/16 19:23 Dose: Not Given Losartan Potassium (Cozaar) 100 mg PO DAILY [facility] Last Admin: 11/20/16 09:27 Dose: 100 mg Linaclotide [Linzess (] 145 Mcg (Home Med)) 145 mcg PO DAILY [facility] Last Admin: 11/20/16 09:29 Dose: Not Given Nebivolol [Bystolic] (5 Mg (Home Med)) 5 mg PO DAILY [facility] Last Admin: 11/20/16 09:29 Dose: Not Given Pantoprazole Sodium (Protonix Ec Tab) 40 mg PO 0600 [facility] Last Admin: 11/20/16 06:12 Dose: Not Given Polyethylene Glycol (Miralax) 17 gm PO BID [facility] Last Admin: 11/20/16 17:53 Dose: Not Given Risperidone (Risperdal Tab) 0.25 mg PO Q4H PRN PRN Reason: Restlessness Tamsulosin HCl (Flomax) 0.4 mg PO DAILY [facility] Last Admin: 11/20/16 09:26 Dose: 0.4 mg Vitamin B Complex/Vit C/Folic Acid (Nephro-Jaylin) 1 tab PO DAILY [facility] Last Admin: 11/20/16 09:27 Dose: 1 tab Ziprasidone (Geodon Inj) 10 mg IM Q6H PRN; Protocol PRN Reason: Agitation - Labs Labs: 11/20/16 08:00 11/20/16 06:00 PT 11.4 Seconds (9.9-11.8) 11/18/16 20:10 INR 1.06 (0.93-1.08) 11/18/16 20:10 APTT 26.3 Seconds (23.7-30.8) 11/18/16 20:10 <Zeyad Nazario U - Last Filed: 12/15/16 21:51> Objective - Vital Signs/Intake and Output Vital Signs (last 24 hours): Temp Pulse Resp BP Pulse Ox 99.5 F 77 20 151/84 H 95 11/22/16 05:26 11/22/16 10:00 11/22/16 05:26 11/22/16 05:26 11/22/16 05:26 - Labs Labs: 11/22/16 10:30 11/22/16 10:30 PT 11.4 Seconds (9.9-11.8) 11/18/16 20:10 INR 1.06 (0.93-1.08) 11/18/16 20:10 APTT 26.3 Seconds (23.7-30.8) 11/18/16 20:10 Attending/Attestation - Attestation I have personally seen and examined this patient.: Yes I have fully participated in the care of the patient.: Yes I have reviewed all pertinent clinical information, including history, physical exam and plan: Yes
[2016-11-20] MEDS: Latanoprost 2.5 ml Opht Soln OU SCH (23:53)
[2016-11-21] MEDS: Acetylcysteine 20% Inhal Soln (4ml) IH SCH ×3 (01:40→19:21)
[2016-11-21] MEDS: Levalbuterol 0.63 MG/3 ML Inhal Soln UD IH SCH ×3 (01:40→19:21)
--- NOTE | 2016-11-21 02:03 | CON ---
PSYCHIATRIC CONSULTATION HISTORY OF PRESENT ILLNESS: The patient is an 86-year-old -[place] male. I reviewed the chart. I spoke to staff taking care of the patient. The patient apparently was admitted to the hospital with chills and fever after the day before having been discharged from the transitional care unit. He was admitted with a presumptive diagnosis of sepsis. Earlier today, his attending physician was at the bedside. When nurse went to tend to his IV, he got extremely sensitive and jumped and yelled and for this reason, the attending physician called the psychiatric consultation. PAST MEDICAL HISTORY: The patient's past history is rather extensive. He has multiple medical problems including end-stage renal disease, he is on hemodialysis 3 times a week. He has atherosclerotic heart disease, he has had transluminal coronary angioplasty with bare-metal stents earlier this year. He has had non-ST wave elevation myocardial infarction. He has supposedly a past history of cerebral vascular disease with lacunar infarcts in the basal ganglia, chronic microvascular disease and some degree of atrophy. He has a history of [id number] dementia. He has non-insulin dependent diabetes mellitus. He has secondary hyperparathyroidism. PERSONAL HISTORY: As follows; he lives with his . 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 The patient apparently has no history of alcohol or substance abuse. LABORATORY DATA: The patient's apparent laboratory data; his white count is 8400, hemoglobin of 8.4, platelet count 179,000. His metabolic profile, his glucose is 265, his sodium 140, potassium 3.7, chloride 102, CO2 of 20, anion gap 14, BUN 17, creatinine 4.4, estimated GFR 60. He had a troponin 1 level yesterday of 0.86. Phosphorus 2.4, calcium 8.2. Rest of all his parameters within normal range. The patient had blood gas, his pO2 was 37 and his venous pH was 7.42. The patient's urine had elevated urinary proteins 100 mg/dL. He had urinary glucose of 100 mg/dL. He had negative urine leukocyte esterase. The patient had a CAT scan of the pelvis and abdomen, which was read as fecal impaction, had slight airspace disease possibly atelectasis in the lung bases, nonobstructing inguinal hernias. The patient had a head scan, which revealed lacunar infarcts on basal ganglia and cerebral atrophy with periventricular microvascular disease. CURRENT MEDICATIONS: Include acetylcysteine, Aricept 10 mg, Lipitor, Xopenex, Protonix, 250 mg IV q. 12h, Cozaar, Dulcolax, Ecotrin 81 mg, Flomax, folate, Imdur, Levemir, Linzess, MiraLax, Bystolic, Nephro-Jaylin, Tessalon Perles and Xalatan ointment. He has a p.r.n. order for Geodon 10 mg IM q.6h. p.r.n. I reviewed nurse's notes and discussed with the nursing staff. The patient had no agitation during the night, slept through the night, cooperative with medical care and nursing care. PHYSICAL EXAMINATION: VITAL SIGNS: Blood pressure 135/78, pulse 78, respirations 20 per minute, temperature is 98.8. REVIEW OF SYSTEMS: Claims of sensitivity near his IV, stinging sensation near the IV fluids entering his arm. Otherwise, he denies headaches, shortness of breath, chest pain, abdominal pain, back pain; however, his thoughts are somewhat slow. Psychiatrically, his mental status; he is awake, lying in bed, IV is running. His affect is somewhat flat and constricted. He is oriented to month, year, and place, not to day. His recent memory is [id number] impaired, recalls 0 out of 3 objects after 5 minutes. The patient notes he came back into the hospital yesterday. He is generally aware of his medical problems. The patient denies visual and auditory hallucinations, depression, suicidal ideation, affect quite flat. His thought processes are slow, thinks a lot to answer questions, but mostly accurate, although when I asked how old he was when he retired, he said 23; repeated the question, insisted he was 23. Stated he was born in 1831. 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 The patient has received no psychotropic medicines since coming in to the hospital. He has non-insulin dependent diabetes mellitus. He has end-stage renal disease with hemodialysis. He has coronary artery disease with stents. He has had non-ST wave myocardial infarction. He has hypertension. He is somewhat debilitated. He has old lacunar basal ganglia infarcts, secondary hyperparathyroidism and possible sepsis currently. SUGGESTIONS: I do not feel the patient needs any psychotropic medicine currently. He has p.r.n. ordered for Geodon IM, which will only be given for severe agitation. I will leave an order for Risperdal 0.25 mg q. 4h. p.r.n. for mild restlessness and mild agitation. We will reevaluate his mental status. Thank you for this consultation. Hunter Kurtz MD
[2016-11-21 04:09] VITALS: RESP 20
[2016-11-21] MEDS: Pantoprazole 40 mg EC Tab PO SCH (05:36)
--- NOTE | 2016-11-21 05:50 | PN ---
DATE: 11/20/2016 SUBJECTIVE: Patient is seen lying in the bed in room 263, bed 1. Patient appears to be agitated, confused, disoriented, swinging his arms and fist at the nurses and me. Overnight nurses' notes were reviewed. PHYSICAL EXAMINATION: VITAL SIGNS: Patient's T-max in the last 24 to 48 hours was 103. Telemetry shows sinus rhythm. Heart rate between 84 to 92. Blood pressure 132/74, 118/70, 128/84. Respirations 20, O2 sat mid to high 90s. GENERAL: Patient is seen lying in the bed. HEENT: Head is normocephalic, atraumatic. HEENT examination shows pinkish pale conjunctivae. Anicteric sclerae. No oropharyngeal lesions. NECK: No neck rigidity. Soft carotid bruit. CHEST: Kyphosis. LUNGS: Show no rales, crackles, or wheezing. Occasional rhonchi noted bilaterally, upper lung chaney, anteriorly and posteriorly. CARDIOVASCULAR: S1, S2, regular rhythm. Questionable soft systolic murmur, right second intercostal space, left sternal border, left second intercostal space. ABDOMEN: Soft. Positive bowel sounds. GENITALIA: Male. RECTAL: Deferred. EXTREMITIES: Show positive left upper extremity AV fistula, positive thrill. MUSCULOSKELETAL: Gait examination could not be tested. NEUROLOGIC: Patient is alert and awake, oriented x1 to 0. Patient is agitated and restless. DIAGNOSTICS: CBC shows elevated WBC, decrease in hemoglobin to 8.4, platelets are within normal limits. Chemistry shows elevated BUN and creatinine. Troponin is still elevated. EKG reviewed. IMPRESSION AND PLAN: 1. Questionable sepsis versus systemic inflammatory response syndrome with leukocytosis, high grade fever, tachycardia. 2. Altered mental status with confusional state versus toxic metabolic encephalopathy. 3. Agitation with behavioral disorder. 4. History of dementia with multiple exacerbations of dementia. 5. Gait dysfunction. 6. Normocytic anemia with decrease in hemoglobin and hematocrit. 7. End-stage renal disease, hemodialysis dependant, three times a week via the left upper extremity arteriovenous fistula. 8. Deconditioning. 9. Insulin-requiring type 1 diabetes mellitus. 10. Secondary hyperparathyroidism. 11. Diabetic gastroparesis. 12. History of gastrointestinal bleeding. 13. History of multiple non-ST elevation myocardial infarctions with history of coronary artery disease. PLAN: At this time, the patient has been ordered psychiatry consultation. Patient is started on p.r.n. Geodon IM. Patient has presently been consulted with cardiology and infectious disease. Patient's further management will be depended upon the patient's clinical condition, hemodynamic status and as per the patient's response to therapy, intervention as per the patient's diagnostic test results and as per recommendation by all physicians involved in the care of the patient. Patient's medications will be continued as per the MAR. Dictated and electronically signed, not read. Signing off, Zeyad Nazario MD
[2016-11-21] MEDS: Insulin Reg-LOW-Coverage SC SCH ×4 (08:08→22:00)
[2016-11-21 08:15] LABS: BASO # 0.02 K/mm3 (0.0-2.0); BASO % 0.2 % (0.0-3.0); EOS # 0.1 (0.0-0.7); EOS % 0.8 % (1.5-5.0); GRAN # 8.23 (1.4-6.5); GRAN % 73.1 % (50.0-68.0); LYMPH # 1.7 (1.2-3.4); LYMPH % 15.2 % (22.0-35.0); MEAN CELL VOLUME 87.1 fl (80.0-105.0); MEAN CORPUSCULAR HEMOGLOBIN 28.6 pg (25.0-35.0); MEAN CORPUSCULAR HGB CONC 32.9 g/dl (31.0-37.0); MEAN PLATELET VOLUME 12.1 fl (7.0-11.0); MONO # 1.2 (0.1-0.6); MONO % 10.7 % (1.0-6.0); RED CELL DISTRIBUTION WIDTH 17.2 % (11.5-14.5); WHITE BLOOD COUNT 11.3 10^3/ul (4.5-11.0)
[2016-11-21] MEDS: Multivitamin Vitamin B Complex (Nephro-Vite) Tab PO SCH (10:16)
[2016-11-21] MEDS: POLYETHYLENE GLYCOL 3350 17 GM/Dose PACKET PO SCH ×2 (10:16→18:06)
[2016-11-21] MEDS: Insulin Detemir 100 units/ml Vial (Levemir) SC SCH (10:17)
[2016-11-21 10:25] LABS: BILIRUBIN,DIRECT 0.8 mg/dL (0.0-0.4); BILIRUBIN,TOTAL 1.2 mg/dL (0.2-1.3); CALCIUM 8.9 mg/dL (8.4-10.5); MAGNESIUM 1.9 mg/dL (1.7-2.2); PHOSPHOROUS 2.8 mg/dL (2.5-4.5); POTASSIUM 3.7 mmol/L (3.6-5.0); TOTAL PROTEIN 7.5 g/dL (5.8-8.3)
[2016-11-21] MEDS: NEBIVOLOL 5 MG PO SCH (11:11)
--- NOTE | 2016-11-21 18:50 | PN ---
DATE: 11/21/2016 SUBJECTIVE: The patient is seen in bed earlier this morning in room 263, bed 1. No fevers and no chills. PHYSICAL EXAMINATION: VITAL SIGNS: Temperature is 99, T-max is 100.2 and respiratory rate of 20, heart rate of 97, blood pressure is 186/1102. HEENT: Unremarkable. NECK: Supple. LUNGS: Decrease breath sounds. HEART: Normal S1 and S2. ABDOMEN: Soft and nontender. LABORATORY DATA: Examination reveals a white count of 11,300, hemoglobin of 11, and platelets of 166. BUN of 29, and creatinine of 6.0 and procalcitonin is 19. Microbiology reveals blood cultures and urine cultures are negative. MEDICATIONS: Review of orders reveals the patient to be on p.o. doxycycline and meropenem. Dr. Nazario's note is reviewed from yesterday. ASSESSMENT AND PLAN: This is an 86-year-old male with recent hospitalization, was seen today earlier with a history of coronary artery disease, non-ST elevation of [place], hypertension, dementia, anemia, end-stage renal disease on hemodialysis, mitral valve prolapse, diabetes mellitus, gastrointestinal bleeding, coronary artery disease, cerebrovascular accident, gastric cancer, presenting with sepsis with tachycardia white count of 16,000 secondary to healthcare-associated pneumonia as the source of the sepsis. The patient is improving. Today is day #3 of meropenem, doxycycline, low-grade fevers, wouid continue for 4 to 7-days and case discussed with PMD. Magdy Diego MD
[2016-11-21] MEDS: Latanoprost 2.5 ml Opht Soln OU SCH (22:13)
[2016-11-22] MEDS: Acetylcysteine 20% Inhal Soln (4ml) IH SCH ×4 (02:43→13:19)
[2016-11-22] MEDS: Levalbuterol 0.63 MG/3 ML Inhal Soln UD IH SCH ×4 (02:43→13:19)
[2016-11-22] MEDS: Pantoprazole 40 mg EC Tab PO SCH (05:09)
[2016-11-22 05:28] VITALS: BP 151/84; TEMP 99.5; O2SAT 95
--- NOTE | 2016-11-22 07:02 | CP.PCM.PN ---
<Kenyetta Kendrick - Last Filed: 11/22/16 09:01> Subjective - Date & Time of Evaluation Date of Evaluation: 11/22/16 Time of Evaluation: 06:59 - Subjective Subjective: Internal medicine progress note for Dr. Felipe Kendrick, PGY-1 Pt S & E at bedside. Per nursing, no acute events overnight, some agitation. Pt resting comfortably in bed, arousable to voice this AM. Denies any complaints. Objective - Vital Signs/Intake and Output Vital Signs (last 24 hours): Temp Pulse Resp BP Pulse Ox 99.5 F 86 20 151/84 H 95 11/22/16 05:26 11/22/16 05:26 11/22/16 05:26 11/22/16 05:26 11/22/16 05:26 Intake and Output: 11/21/16 11/22/16 18:59 06:59 Intake Total 750 500 Output Total 50 Balance 750 450 - Medications Medications: Current Medications Acetaminophen (Tylenol 325mg Tab) 650 mg PO Q6H PRN PRN Reason: TEMP>=99.5F Last Admin: 11/21/16 11:34 Dose: 650 mg Acetaminophen (Tylenol 650 Mg Supp) 650 mg RC Q4H PRN PRN Reason: TEMP>=99.5F Acetylcysteine (Acetylcysteine 20%) 4 ml IH [id number] [facility] Last Admin: 11/22/16 02:43 Dose: Not Given Aspirin (Ecotrin) 81 mg PO DAILY [facility] Last Admin: 11/21/16 10:16 Dose: 81 mg Atorvastatin Calcium (Lipitor) 40 mg PO DIN [facility] Last Admin: 11/21/16 18:06 Dose: 40 mg Benzonatate (Tessalon Perles) 100 mg PO TID [facility] Last Admin: 11/21/16 18:06 Dose: 100 mg Bisacodyl (Dulcolax) 10 mg RC MWF [facility] Last Admin: 11/19/16 11:36 Dose: Not Given Donepezil HCl (Aricept) 10 mg PO HS [facility] Last Admin: 11/21/16 22:13 Dose: 10 mg Doxycycline Hyclate (Doryx) 100 mg PO Q12 [facility] PRN Reason: Protocol Stop: 11/27/16 22:01 Last Admin: 11/21/16 22:13 Dose: 100 mg Ergocalciferol (Drisdol 50,000 Intl Units Cap) 1 cap PO SAT [facility] Last Admin: 11/20/16 09:27 Dose: 1 cap Folic Acid (Folic Acid) 1 mg PO DAILY [facility] Last Admin: 11/21/16 10:17 Dose: 1 mg Meropenem 250 mg/ Sodium (Chloride) 100 mls @ 100 mls/hr IVPB Q12H [facility] PRN Reason: Protocol Stop: 11/28/16 08:01 Last Admin: 11/21/16 22:12 Dose: 100 mls/hr Insulin Detemir (Levemir) 5 unit SC DAILY [facility] Last Admin: 11/21/16 10:17 Dose: 5 unit Insulin Human Regular (Humulin R Low) 0 units SC ACHS [facility] PRN Reason: Protocol Last Admin: 11/21/16 22:00 Dose: Not Given Isosorbide Mononitrate (Imdur) 120 mg PO DAILY [facility] Last Admin: 11/21/16 10:16 Dose: 120 mg Latanoprost (Xalatan Opht) 0 ml OU HS [facility] Last Admin: 11/21/16 22:13 Dose: 2.5 ml Levalbuterol HCl (Xopenex) 0.63 mg IH Q6H [facility] Last Admin: 11/22/16 02:43 Dose: Not Given Losartan Potassium (Cozaar) 100 mg PO DAILY [facility] Last Admin: 11/21/16 10:17 Dose: 100 mg Linaclotide [Linzess (] 145 Mcg (Home Med)) 145 mcg PO DAILY [facility] Last Admin: 11/21/16 11:11 Dose: Not Given Nebivolol [Bystolic] (5 Mg (Home Med)) 5 mg PO DAILY [facility] Last Admin: 11/21/16 11:11 Dose: Not Given Pantoprazole Sodium (Protonix Ec Tab) 40 mg PO 0600 [facility] Last Admin: 11/22/16 05:09 Dose: 40 mg Polyethylene Glycol (Miralax) 17 gm PO BID [facility] Last Admin: 11/21/16 18:06 Dose: Not Given Risperidone (Risperdal Tab) 0.25 mg PO Q4H PRN PRN Reason: Restlessness Tamsulosin HCl (Flomax) 0.4 mg PO DAILY [facility] Last Admin: 11/21/16 10:16 Dose: 0.4 mg Vitamin B Complex/Vit C/Folic Acid (Nephro-Jaylin) 1 tab PO DAILY [facility] Last Admin: 11/21/16 10:16 Dose: 1 tab Ziprasidone (Geodon Inj) 10 mg IM Q6H PRN; Protocol PRN Reason: Agitation - Labs Labs: 11/21/16 07:20 11/21/16 09:58 PT 11.4 Seconds (9.9-11.8) 11/18/16 20:10 INR 1.06 (0.93-1.08) 11/18/16 20:10 APTT 26.3 Seconds (23.7-30.8) 11/18/16 20:10 - Constitutional Appears: Non-toxic, No Acute Distress - Head Exam Head Exam: ATRAUMATIC, NORMAL INSPECTION, NORMOCEPHALIC - Eye Exam Eye Exam: EOMI, Normal appearance - ENT Exam ENT Exam: Mucous Membranes Moist, Normal Exam - Neck Exam Neck Exam: Normal Inspection - Respiratory Exam Respiratory Exam: Clear to Ausculation Bilateral, NORMAL BREATHING PATTERN - Cardiovascular Exam Cardiovascular Exam: REGULAR RHYTHM, +S1, +S2 - GI/Abdominal Exam GI & Abdominal Exam: Soft, Normal Bowel Sounds. absent: Distended, Firm, Guarding, Tenderness - Extremities Exam Extremities Exam: Normal Inspection. absent: Pedal Edema, Tenderness - Neurological Exam Neurological Exam: Alert, CN II-XII Intact. absent: Awake (arousable to voice) , Oriented x3 (AOx 2) - Psychiatric Exam Psychiatric exam: Normal Affect, Normal Mood - Skin Skin Exam: Dry, Intact, Normal Color, Warm Assessment and Plan - Assessment and Plan (Free Text) Assessment: 85Y AA M with PMH CVA, ESRD on HD (MWF), dementia, CAD s/p stent, DM, MVP, GI bleed, gastric cancer who was admitted for AMS, stable overnight with some episodes of agitation Plan: AMS- resolved At baseline AOx2 CT brain - Atrophy and spinal vessel disease; multiple old basal ganglia lacunar infarcts; no bleed Monitor Fever Tmax 100.2 Leukcytosis Tylenol PO and RC Procalc 19.92 Blood cx neg x 3D Urine cx neg Merrem CXR - No active disease ID following Constipation CT ab- Fecal impaction with constipation, similar findings seen on the prior study 11/04/16; no acute solid visceral abnormality; slight increase in airspace disease possibly atelectasis at the lung bases; non-obstructing inguinal hernias Dulcolax Miralax Linzess Monitor Dementia Aricept Monitor Anemia/Hx GI bleed Avoid NSAIDS, anticoagulants Contraindications to VTE ppx Recent NSTEMI ASA High risk for GI bleed contraindications to other anticoagulations Lipitor ESRD on HD HD (MWF) Renagel Nephro-Vit Folic Acid Vit D Nephro following DM ISS Levemir Accuchecks HTN BP 154/84, multiple episodes of HTN Lopressor Cozaar Imdur Bystolic Monitor COPD Tessalon Perles Xopenex Mucomyst Chest PT Hx Glaucoma Latanoprost Hx of BPH Flomax GI/DVT ppx TEDs SCDs Protonix Contraindications to VTE ppx 2/2 high risk of GI bleed Dispo Dysphagia/HHD/renal on HD diet Supplements PT/OT OOBTC Activity as nima Psych eval TCU eval- accepted Transfer to TCU today DW attending Mireille, PGY-1 <Zeyad Nazario U - Last Filed: 12/15/16 21:51> Objective - Vital Signs/Intake and Output Vital Signs (last 24 hours): Temp Pulse Resp BP Pulse Ox 99.5 F 77 20 151/84 H 95 11/22/16 05:26 11/22/16 10:00 11/22/16 05:26 11/22/16 05:26 11/22/16 05:26 - Labs Labs: 11/22/16 10:30 11/22/16 10:30 PT 11.4 Seconds (9.9-11.8) 11/18/16 20:10 INR 1.06 (0.93-1.08) 11/18/16 20:10 APTT 26.3 Seconds (23.7-30.8) 11/18/16 20:10 Attending/Attestation - Attestation I have personally seen and examined this patient.: Yes I have fully participated in the care of the patient.: Yes I have reviewed all pertinent clinical information, including history, physical exam and plan: Yes
[2016-11-22] MEDS: Insulin Reg-LOW-Coverage SC SCH ×2 (07:57→14:22)
--- NOTE | 2016-11-22 09:15 | CP.PCM.DIS ---
<Kenyetta Kendrick - Last Filed: 11/22/16 15:32> Provider - Provider Date of Admission: 11/18/16 23:07 Attending physician: Zeyad Nazario MD Primary care physician: Zeyad Nazario MD Consults: Cardio-[place] ID-Johnathon Nephro-[facility]barra Psych-Gewol[place] Time Spent in preparation of Discharge (in minutes): 45 Hospital Course - Lab Results Lab Results: Most Recent Lab Values WBC 11.3 10^3/ul (4.5-11.0) H D 11/21/16 07:20 RBC 4.02 10^6/uL (3.5-6.1) 11/21/16 07:20 Hgb 11.5 g/dL (14.0-18.0) L D 11/21/16 07:20 Hct 35.0 % (42.0-52.0) L 11/21/16 07:20 MCV 87.1 fl (80.0-105.0) 11/21/16 07:20 MCH 28.6 pg (25.0-35.0) 11/21/16 07:20 MCHC 32.9 g/dl (31.0-37.0) 11/21/16 07:20 RDW 17.2 % (11.5-14.5) H 11/21/16 07:20 Plt Count 166 10^3/uL (120.0-450.0) 11/21/16 07:20 MPV 12.1 fl (7.0-11.0) H 11/21/16 07:20 Gran % 73.1 % (50.0-68.0) H 11/21/16 07:20 Lymph % (Auto) 15.2 % (22.0-35.0) L 11/21/16 07:20 [place] % (Auto) 10.7 % (1.0-6.0) H 11/21/16 07:20 Eos % (Auto) 0.8 % (1.5-5.0) L 11/21/16 07:20 Baso % (Auto) 0.2 % (0.0-3.0) 11/21/16 07:20 Gran # 8.23 (1.4-6.5) H 11/21/16 07:20 Lymph # 1.7 (1.2-3.4) 11/21/16 07:20 [place] # 1.2 (0.1-0.6) H 11/21/16 07:20 Eos # 0.1 (0.0-0.7) 11/21/16 07:20 Baso # 0.02 K/mm3 (0.0-2.0) 11/21/16 07:20 Neutrophils % (Manual) 93 % (50.0-70.0) H 11/18/16 20:10 Lymphocytes % (Manual) 5 % (22.0-35.0) L 11/18/16 20:10 Monocytes % (Manual) 2 % (1.0-6.0) 11/18/16 20:10 Platelet Evaluation Normal (NORMAL) 11/18/16 20:10 Anisocytosis (manual) Slight 11/18/16 20:10 Ovalocytes Slight 11/18/16 20:10 PT 11.4 Seconds (9.9-11.8) 11/18/16 20:10 INR 1.06 (0.93-1.08) 11/18/16 20:10 APTT 26.3 Seconds (23.7-30.8) 11/18/16 20:10 pO2 37 mm/Hg (30-55) 11/19/16 00:25 VBG pH 7.42 (7.32-7.43) 11/19/16 00:25 VBG pCO2 46.0 (40-60) 11/19/16 00:25 VBG HCO3 29.8 mmol/l (21-28) H 11/19/16 00:25 VBG Total CO2 31.2 mmol.L (22-28) H 11/19/16 00:25 VBG O2 Sat (Calc) 79.8 % (40-65) H 11/19/16 00:25 VBG Base Excess 4.5 mmol/L (0.0-2.0) H 11/19/16 00:25 VBG Potassium 4.2 mmol/L (3.6-5.2) 11/19/16 00:25 Sodium 138.0 mmol/L (132-148) 11/19/16 00:25 Chloride 101.0 mmol/L (98-107) 11/19/16 00:25 Glucose 145 mg/dl (75-110) H 11/19/16 00:25 Lactate 1.5 mmol/L (0.7-2.1) 11/19/16 00:25 FiO2 21.0 % 11/19/16 00:25 Sodium 139 mmol/L (132-148) 11/21/16 09:58 Potassium 3.7 mmol/L (3.6-5.0) 11/21/16 09:58 Chloride 99 mmol/L (98-107) 11/21/16 09:58 Carbon Dioxide 26 mmol/L (21-33) 11/21/16 09:58 Anion Gap 18 (10-20) 11/21/16 09:58 BUN 29 mg/dL (7-21) H 11/21/16 09:58 Creatinine 6.0 mg/dL (0.5-1.4) H 11/21/16 09:58 Est GFR ( Amer) 11 11/21/16 09:58 Est GFR (Non-Af Amer) 9 11/21/16 09:58 POC Glucose (mg/dL) 265 mg/dL (65-110) H 11/20/16 11:33 Random Glucose 106 mg/dL (70-110) 11/21/16 09:58 Lactic Acid 1.4 mmol/L (0.7-2.1) 11/19/16 00:25 Calcium 8.9 mg/dL (8.4-10.5) 11/21/16 09:58 Phosphorus 2.8 mg/dL (2.5-4.5) 11/21/16 09:58 Magnesium 1.9 mg/dL (1.7-2.2) 11/21/16 09:58 Total Bilirubin 1.2 mg/dL (0.2-1.3) 11/21/16 09:58 Direct Bilirubin 0.8 mg/dL (0.0-0.4) H 11/21/16 09:58 AST 29 U/L (15-59) 11/21/16 09:58 ALT 25 U/L (7-56) 11/21/16 09:58 Alkaline Phosphatase 91 U/L (38-133) 11/21/16 09:58 Total Creatine Kinase 85 U/L (35-230) 11/18/16 20:10 Troponin I 0.86 ng/mL H* D 11/19/16 19:55 Total Protein 7.5 g/dL (5.8-8.3) 11/21/16 09:58 Albumin 3.8 g/dL (3.0-4.8) 11/21/16 09:58 Globulin 3.7 gm/dL 11/21/16 09:58 Albumin/Globulin Ratio 1.0 (1.1-1.8) L 11/21/16 09:58 Lipase 376 U/L (23-300) H 11/18/16 20:10 Procalcitonin 19.92 NG/ML (0.19-0.49) H 11/19/16 00:25 Venous Blood Potassium 4.2 mmol/L (3.6-5.2) 11/19/16 00:25 Urine Color Yellow (YELLOW) 11/18/16 22:18 Urine Appearance Clear (CLEAR) 11/18/16 22:18 Urine pH 8.5 (4.7-8.0) 11/18/16 22:18 Ur Specific [place] 1.020 (1.005-1.035) 11/18/16 22:18 Urine Protein 100 mg/dL (<30 mg/dL) H 11/18/16 22:18 Urine Glucose (UA) 100 mg/dL (NEGATIVE) H 11/18/16 22:18 Urine Ketones Negative mg/dL (NEGATIVE) 11/18/16 22:18 Urine Blood Moderate (NEGATIVE) H 11/18/16 22:18 Urine Nitrate Negative (NEGATIVE) 11/18/16 22:18 Urine Bilirubin Negative (NEGATIVE) 11/18/16 22:18 Urine Urobilinogen 0.2 E.U./dL (<1 E.U./dL) 11/18/16 22:18 Ur Leukocyte Esterase Negative Lakshmi/uL (NEGATIVE) 11/18/16 22:18 Urine RBC 25 - 30 /hpf (0-2) 11/18/16 22:18 Urine WBC 0 - 2 /hpf (0-6) 11/18/16 22:18 Ur Epithelial Cells 1 - 3 /hpf (0-5) 11/18/16 22:18 Blood Type B POSITIVE 11/20/16 16:00 Antibody Screen Negative 11/20/16 16:00 Crossmatch See Detail 11/20/16 16:00 BBK History Checked Patient has bt 11/20/16 16:00 - Hospital Course Hospital Course: 86M re-admitted after recent rehab for AMS as per family. Pt was recently hospitalized for AMS 2/2 NSTEMI with subsequent TCU rehabilitation. This hospitalization, pt found to have sep;sis 2/2 HCAP. Antibiotics started. Pt seen /evaluated by ID with recs for Abx for HCAP. Pt with constipation, modified bowel regimen. Found to have some anemia, treated with blood transfusion. Pt seen/evaluated by nephro with continuation of HD. Pt seen/evaluated by psych 2/ 2 agition with recs for Geotu OLIVARESN severe agitation. Pt with improved in symptoms- AMS resolved, pt now at baseline dementia, but with de-conditioning. Needs rehab, accepted to TCU, stable for transfer today. Diagnoses: Altered mental status, ESRD on HD, sepsis 2/2 HCAP, anemia of chronic disease, acute anemia, HTN, CAD, dementia, recent NSTEMI, constipation (chronic), DIabetes, COPD, glaucoma, BPH - Date & Time of H&P Date of H&P: 11/18/16 Time of H&P: 23:12 Discharge Exam - Head Exam Head Exam: ATRAUMATIC, NORMAL INSPECTION, NORMOCEPHALIC - Eye Exam Eye Exam: EOMI, Normal appearance - ENT Exam ENT Exam: Mucous Membranes Moist, Normal Exam - Neck Exam Neck exam: Normal Inspection - Respiratory Exam Respiratory Exam: Decreased Breath Sounds (at bases B/L), NORMAL BREATHING PATTERN, UNREMARKABLE. absent: Accessory Muscle Use, Chest Wall Tenderness, Rales, Rhonchi, Wheezes, Respiratory Distress, Stridor - Cardiovascular Exam Cardiovascular Exam: REGULAR RHYTHM, +S1, +S2 - GI/Abdominal Exam GI & Abdominal Exam: Normal Bowel Sounds, Soft, Unremarkable. absent: Tenderness - Extremities Exam Extremities exam: normal inspection - Neurological Exam Neurological exam: Alert, CN II-XII Intact Additional comments: AOX2 (baseline dementia) - Psychiatric Exam Psychiatric exam: Normal Affect, Normal Mood - Skin Skin Exam: Dry, Intact, Normal Color, Warm Discharge Plan - Follow Up Plan Condition: STABLE Disposition: TRANSF TO SNF Instructions: Meal Planning with Diabetes Exchanges (DC), Sepsis (GEN), Altered Mental Status (GEN) Additional Instructions: Patient cleared for transfer to TCU today. Continue all medications as per updated EMR. Referrals: Zeyad Nazario MD [Primary Care Provider] - <Zeyad Nazario - Last Filed: 12/15/16 21:51> Provider - Provider Date of Admission: 11/18/16 23:07 Attending physician: Zeyad Nazario MD Primary care physician: Zeyad Nazario MD Hospital Course - Lab Results Lab Results: Micro Results 11/22/16 13:00 Blood Blood Culture - Final NO GROWTH AFTER 5 DAYS 11/22/16 13:00 Blood Gram Stain - Final TEST NOT PERFORMED 11/22/16 11:12 Blood Blood Culture - Final NO GROWTH AFTER 5 DAYS 11/22/16 11:12 Blood Gram Stain - Final TEST NOT PERFORMED Most Recent Lab Values WBC 9.9 10^3/ul (4.5-11.0) 11/22/16 10:30 RBC 3.58 10^6/uL (3.5-6.1) 11/22/16 10:30 Hgb 10.1 g/dL (14.0-18.0) L 11/22/16 10:30 Hct 30.3 % (42.0-52.0) L 11/22/16 10:30 MCV 84.6 fl (80.0-105.0) 11/22/16 10:30 MCH 28.2 pg (25.0-35.0) 11/22/16 10:30 MCHC 33.3 g/dl (31.0-37.0) 11/22/16 10:30 RDW 16.7 % (11.5-14.5) H 11/22/16 10:30 Plt Count 191 10^3/uL (120.0-450.0) 11/22/16 10:30 MPV 11.3 fl (7.0-11.0) H 11/22/16 10:30 Gran % 77.8 % (50.0-68.0) H 11/22/16 10:30 Lymph % (Auto) 11.8 % (22.0-35.0) L 11/22/16 10:30 [place] % (Auto) 9.8 % (1.0-6.0) H 11/22/16 10:30 Eos % (Auto) 0.4 % (1.5-5.0) L 11/22/16 10:30 Baso % (Auto) 0.2 % (0.0-3.0) 11/22/16 10:30 Gran # 7.73 (1.4-6.5) H 11/22/16 10:30 Lymph # 1.2 (1.2-3.4) 11/22/16 10:30 [place] # 1.0 (0.1-0.6) H 11/22/16 10:30 Eos # 0.0 (0.0-0.7) 11/22/16 10:30 Baso # 0.02 K/mm3 (0.0-2.0) 11/22/16 10:30 Neutrophils % (Manual) 93 % (50.0-70.0) H 11/18/16 20:10 Lymphocytes % (Manual) 5 % (22.0-35.0) L 11/18/16 20:10 Monocytes % (Manual) 2 % (1.0-6.0) 11/18/16 20:10 Platelet Evaluation Normal (NORMAL) 11/18/16 20:10 Anisocytosis (manual) Slight 11/18/16 20:10 Ovalocytes Slight 11/18/16 20:10 PT 11.4 Seconds (9.9-11.8) 11/18/16 20:10 INR 1.06 (0.93-1.08) 11/18/16 20:10 APTT 26.3 Seconds (23.7-30.8) 11/18/16 20:10 pO2 37 mm/Hg (30-55) 11/19/16 00:25 VBG pH 7.42 (7.32-7.43) 11/19/16 00:25 VBG pCO2 46.0 (40-60) 11/19/16 00:25 VBG HCO3 29.8 mmol/l (21-28) H 11/19/16 00:25 VBG Total CO2 31.2 mmol.L (22-28) H 11/19/16 00:25 VBG O2 Sat (Calc) 79.8 % (40-65) H 11/19/16 00:25 VBG Base Excess 4.5 mmol/L (0.0-2.0) H 11/19/16 00:25 VBG Potassium 4.2 mmol/L (3.6-5.2) 11/19/16 00:25 Sodium 138.0 mmol/L (132-148) 11/19/16 00:25 Chloride 101.0 mmol/L (98-107) 11/19/16 00:25 Glucose 145 mg/dl (75-110) H 11/19/16 00:25 Lactate 1.5 mmol/L (0.7-2.1) 11/19/16 00:25 FiO2 21.0 % 11/19/16 00:25 Sodium 137 mmol/L (132-148) 11/22/16 10:30 Potassium 3.9 mmol/L (3.6-5.0) 11/22/16 10:30 Chloride 100 mmol/L (98-107) 11/22/16 10:30 Carbon Dioxide 24 mmol/L (21-33) 11/22/16 10:30 Anion Gap 17 (10-20) 11/22/16 10:30 BUN 45 mg/dL (7-21) H 11/22/16 10:30 Creatinine 7.4 mg/dL (0.5-1.4) H 11/22/16 10:30 Est GFR ( Amer) 9 11/22/16 10:30 Est GFR (Non-Af Amer) 7 11/22/16 10:30 POC Glucose (mg/dL) 225 mg/dL (65-110) H 11/22/16 21:26 Random Glucose 145 mg/dL (70-110) H 11/22/16 10:30 Lactic Acid 1.4 mmol/L (0.7-2.1) 11/19/16 00:25 Calcium 8.8 mg/dL (8.4-10.5) 11/22/16 10:30 Phosphorus 3.1 mg/dL (2.5-4.5) 11/22/16 10:30 Magnesium 1.8 mg/dL (1.7-2.2) 11/22/16 10:30 Total Bilirubin 0.9 mg/dL (0.2-1.3) 11/22/16 10:30 Direct Bilirubin 0.8 mg/dL (0.0-0.4) H 11/22/16 10:30 AST 23 U/L (15-59) 11/22/16 10:30 ALT 23 U/L (7-56) 11/22/16 10:30 Alkaline Phosphatase 70 U/L (38-133) 11/22/16 10:30 Total Creatine Kinase 85 U/L (35-230) 11/18/16 20:10 Troponin I 0.86 ng/mL H* D 11/19/16 19:55 Total Protein 6.8 g/dL (5.8-8.3) 11/22/16 10:30 Albumin 3.3 g/dL (3.0-4.8) 11/22/16 10:30 Globulin 3.5 gm/dL 11/22/16 10:30 Albumin/Globulin Ratio 0.9 (1.1-1.8) L 11/22/16 10:30 Lipase 376 U/L (23-300) H 11/18/16 20:10 Procalcitonin 19.92 NG/ML (0.19-0.49) H 11/19/16 00:25 Venous Blood Potassium 4.2 mmol/L (3.6-5.2) 11/19/16 00:25 Urine Color Yellow (YELLOW) 11/18/16 22:18 Urine Appearance Clear (CLEAR) 11/18/16 22:18 Urine pH 8.5 (4.7-8.0) 11/18/16 22:18 Ur Specific [place] 1.020 (1.005-1.035) 11/18/16 22:18 Urine Protein 100 mg/dL (<30 mg/dL) H 11/18/16 22:18 Urine Glucose (UA) 100 mg/dL (NEGATIVE) H 11/18/16 22:18 Urine Ketones Negative mg/dL (NEGATIVE) 11/18/16 22:18 Urine Blood Moderate (NEGATIVE) H 11/18/16 22:18 Urine Nitrate Negative (NEGATIVE) 11/18/16 22:18 Urine Bilirubin Negative (NEGATIVE) 11/18/16 22:18 Urine Urobilinogen 0.2 E.U./dL (<1 E.U./dL) 11/18/16 22:18 Ur Leukocyte Esterase Negative Lakshmi/uL (NEGATIVE) 11/18/16 22:18 Urine RBC 25 - 30 /hpf (0-2) 11/18/16 22:18 Urine WBC 0 - 2 /hpf (0-6) 08/24/17 22:18 Ur Epithelial Cells 1 - 3 /hpf (0-5) 11/18/16 22:18 Blood Type B POSITIVE 11/20/16 16:00 Antibody Screen Negative 11/20/16 16:00 Crossmatch See Detail 11/20/16 16:00 BBK History Checked Patient has bt 11/20/16 16:00 Attending/Attestation - Attestation I have personally seen and examined this patient.: Yes I have fully participated in the care of the patient.: Yes I have reviewed all pertinent clinical information, including history, physical exam and plan: Yes
[2016-11-22] MEDS: NEBIVOLOL 5 MG PO SCH (09:57)
[2016-11-22 10:48] LABS: BASO # 0.02 K/mm3 (0.0-2.0); BASO % 0.2 % (0.0-3.0); EOS % 0.4 % (1.5-5.0); GRAN # 7.73 (1.4-6.5); GRAN % 77.8 % (50.0-68.0); HEMATOCRIT 30.3 % (42.0-52.0); LYMPH # 1.2 (1.2-3.4); LYMPH % 11.8 % (22.0-35.0); MEAN CELL VOLUME 84.6 fl (80.0-105.0); MEAN CORPUSCULAR HEMOGLOBIN 28.2 pg (25.0-35.0); MEAN CORPUSCULAR HGB CONC 33.3 g/dl (31.0-37.0); MEAN PLATELET VOLUME 11.3 fl (7.0-11.0); MONO % 9.8 % (1.0-6.0); RED CELL DISTRIBUTION WIDTH 16.7 % (11.5-14.5); WHITE BLOOD COUNT 9.9 10^3/ul (4.5-11.0)
[2016-11-22 11:01] LABS: ALB/GLOB RATIO 0.9 (1.1-1.8); BILIRUBIN,DIRECT 0.8 mg/dL (0.0-0.4); BILIRUBIN,TOTAL 0.9 mg/dL (0.2-1.3); CALCIUM 8.8 mg/dL (8.4-10.5); MAGNESIUM 1.8 mg/dL (1.7-2.2); PHOSPHOROUS 3.1 mg/dL (2.5-4.5); POTASSIUM 3.9 mmol/L (3.6-5.0); TOTAL PROTEIN 6.8 g/dL (5.8-8.3)
[2016-11-22] MEDS: POLYETHYLENE GLYCOL 3350 17 GM/Dose PACKET PO SCH ×2 (14:33→14:56)
[2016-11-22] MEDS: Insulin Detemir 100 units/ml Vial (Levemir) SC SCH (14:34)
[2016-11-22] MEDS: Multivitamin Vitamin B Complex (Nephro-Vite) Tab PO SCH (14:37)
[2016-11-22 16:43] VITALS: PULSE 77
--- NOTE | 2016-11-22 17:39 | PN ---
DATE: 11/21/2016 SUBJECTIVE: The patient is seen lying in the bed. The patient, according to the nurses' notes, has been refusing the nebulizer treatment. The patient's blood transfusion overnight was delayed because of delay in obtaining the consent from the patient's . The patient's Greer was removed yesterday. The patient's blood transfusion was started lately in the night. Overnight nurses' notes are reviewed. The patient tolerated 2 units of PRBC without any adverse event. PHYSICAL EXAMINATION: VITAL SIGNS: T-max is 98.7, heart rate shows 81-79, blood pressure averaging 150s, 160s systolic to 170s; there were two episodes where patient's blood pressure went up to 186/102 and 192/107, diastolic has been 80s and 90s, respirations 19-20, O2 saturation 95% to 97%. GENERAL: The patient is seen lying in the bed in room 263. HEENT: Head is normocephalic, atraumatic. HEENT examination shows pinkish pale conjunctivae. Anicteric sclerae. NECK: No neck rigidity. Soft carotid bruit. CARDIOVASCULAR: S1, S2, regular rhythm. Questionable soft systolic murmur, left sternal border, right second intercostal space, left second intercostal space. ABDOMEN: Soft. Positive bowel sounds. GENITALIA: Male. RECTAL: Deferred. EXTREMITIES: Show positive left upper extremity AV fistula. Positive thrill. MUSCULOSKELETAL: Shows a body mass index of 23.3. NEUROLOGIC: The patient is alert, awake, responsive, episodic confusion, agitation noted. The patient is seen by Psychiatry and recommendations noted. Gait examination not tested. DIAGNOSTICS: On 11/21/2016, WBC 11.3, hemoglobin and hematocrit 11.5 and 35, platelet 166, granulocytes 73. Sodium 139, potassium 3.7, chloride 99, CO2 of 26, anion gap 18, BUN 29, creatinine 6.0, GFR 11, POC glucose 265, 125, 144, 84, 104, calcium 8.8, phosphorus 3.1, magnesium 1.8. LFTs are normal. Blood and urine cultures all negative. The patient received 2 units of PRBC. IMPRESSION AND PLAN: 1. Sepsis secondary to healthcare-associated bibasilar pneumonia with atelectasis and airspace disease. 2. Sepsis. 3. Tachycardia. 4. Leukocytosis with granulocytosis. 5. High-grade fever of 103.2. 6. Persistent recurrent fever of 100 degrees Fahrenheit. 7. Episodic uncontrolled hypertension. 8. Transient mild hypoxemia. 9. Normocytic anemia with decrease in hemoglobin and hematocrit. 10. Status post packed red blood cell transfusion x2. 11. Lactic acidosis. 12. Hyperprolactinemia. 13. End-stage renal disease, hemodialysis dependent. 14. Acute non-ST elevation myocardial infarction with elevated troponin for medical management. 15. Insulin-requiring type 1 diabetes mellitus. 16. Dementia. 17. Acute exacerbation of dementia with behavioral disorders with agitation and restlessness. 18. Proteinuria, glycosuria. 19. Hematuria. 1. Questionable sepsis versus systemic inflammatory response syndrome with leukocytosis, high grade fever, tachycardia. 2. Altered mental status with confusional state versus toxic metabolic encephalopathy. 3. Agitation with behavioral disorder. 4. History of dementia with multiple exacerbations of dementia. 5. Gait dysfunction. 6. Normocytic anemia with decrease in hemoglobin and hematocrit. 7. End-stage renal disease, hemodialysis dependant, three times a week via the left upper extremity arteriovenous fistula. 8. Deconditioning. 9. Insulin-requiring type 1 diabetes mellitus. 10. Secondary hyperparathyroidism. 11. Diabetic gastroparesis. 12. History of gastrointestinal bleeding. 13. History of multiple non-ST elevation myocardial infarctions with history of coronary artery disease. 1. Questionable sepsis versus systemic inflammatory response syndrome with leukocytosis, high grade fever, tachycardia. 2. Altered mental status with confusional state versus toxic metabolic encephalopathy. 3. Agitation with behavioral disorder. 4. History of dementia with multiple exacerbations of dementia. 5. Gait dysfunction. 6. Normocytic anemia with decrease in hemoglobin and hematocrit. 7. End-stage renal disease, hemodialysis dependant, three times a week via the left upper extremity arteriovenous fistula. 8. Deconditioning. 9. Insulin-requiring type 1 diabetes mellitus. 10. Secondary hyperparathyroidism. 11. Diabetic gastroparesis. 12. History of gastrointestinal bleeding. 13. History of multiple non-ST elevation myocardial infarctions with history of coronary artery disease. PLAN: At this time, the patient is to be continued on present treatment. Serial labs ordered. Current consultation with Cardiology, Infectious Disease, Nephrology, Psychiatry. The patient gets out of the TCU. CURRENT MEDICATIONS: 1. Mucomyst nebulizer 4 mL q. 6 hours. 2. Aricept 10 mg at bedtime. 3. Cozaar 100 mg daily. 4. Doxycycline 100 mg q. 12 hours. 5. Drisdol 50,000 weekly. 6. Dulcolax suppository 10 mg Tuesday, Tuesday, and Tuesday. 7. Aspirin 81 mg daily. 8. Flomax 0.4 mg daily. 9. Folic acid 1 mg daily. 10. Geodon 10 mg IM q. 6 hours p.r.n. 11. Regular insulin low dose sliding scale coverage. 12. Imdur 120 mg daily. 13. Levemir 5 units subcutaneous once a day. 14. Linzess 145 mcg daily. 15. Lipitor 40 mg daily. 16. Bystolic 5 mg daily. 17. Lopressor 25 mg twice a day. 18. Meropenem 250 mg IV q. 12 hours. 19. MiraLax 17 g twice a day. 20. Nephro-Jaylin one tablet daily. 21. Protonix 40 mg daily. The patient is started on Risperdal. The patient was given Risperdal 0.25 mg q. 4 hours p.r.n. and the patient is on Tessalon Perles 100 mg t.i.d., Tylenol 650 mg q. 6 hours p.o. and suppository for temperature greater than or equal to 99.5, Xopenex nebulizer 0.63 mg, Xalatan eye drop at bedtime. The patient is on chest PT, dysphagia-modified consistency diet ordered. The patient was seen and evaluated in room 263, bed 1. Dictated and electronically signed, not read. Zeyad Nazario MD [email or web address]
--- NOTE | 2016-11-22 17:44 | PN ---
DATE: SUBJECTIVE: The patient is currently seen receiving dialysis. His blood pressure is 186/109. We are ultra filtrating 2.5 liters of fluid. He appears to be entirely comfortable. The patient remains on antibiotics for possible sepsis related to a hospital-acquired pneumonia. MEDICATIONS: Medication list reviewed. The patient is on acetylcysteine, Aricept, Cozaar, doxycycline, vitamin D, Dulcolax, Ecotrin, Flomax, folic acid, Geodon, insulin, Imdur, Linzess, Lipitor, Lopressor, meropenem, MiraLax, Nephro-Jaylin, Protonix, Risperdal, Tessalon Perles, Tylenol p.r.n., Xalatan and Xopenex. OBJECTIVE: INTAKE AND OUTPUT. Intake 1250, output 50 mL. VITAL SIGNS: Blood pressure on the floor was 151/84, currently on dialysis its 186/109. Temperature 99.5, respiratory rate 20 with pulse of 86. T-max last 24 hours was 100.2. HEENT: Normocephalic, atraumatic. Conjunctivae are pale. Sclerae are nonicteric. NECK: Supple. No neck vein distention. CHEST: Clear to auscultation and percussion. No rales. No rhonchi. No wheezing. Decreased breath sounds at the bases. CARDIOVASCULAR: Regular rate and rhythm with a soft systolic murmur in the left lower sternal border. No S3, no S4, no rub. ABDOMEN: Soft. Bowel sounds normal. No rebound. No guarding. No masses. EXTREMITIES: Cannulated left upper extremity AV fistula with blood flow rates of 450 mL per minute. IMAGING DATA: No definite infiltrates seen on chest x-ray, but abdominal and chest CT showed perhaps basilar infiltrates. The patient is clinically felt to have pneumonia and is being treated for that. MICROBIOLOGY: All cultures are negative. LABORATORY DATA: CBC white blood cell count down to 9.9, hemoglobin 10.1, with platelet count of 191,000. Chemistry show normal electrolytes. BUN 45 with a creatinine 7.4, glucose is 145. Liver enzymes are normal. ASSESSMENT: 1. End-stage renal disease. The patient will continue Tuesday, Tuesday and Tuesday dialysis. 2. Sepsis on admission. Possibly secondary to lower lobe pneumonia, hospital acquired. The patient remains on IV antibiotic therapy and as per Infectious disease will be transferred to telemetry and complete a course of IV antibiotics along with oral antibiotic therapy. 3. History of noninsulin-dependent diabetes mellitus. The patient will continue on insulin. Glucose control is acceptable. 4. History of arteriosclerotic heart disease status post percutaneous transluminal coronary angioplasty with bare metal stent earlier this year. Recent admission to the hospital in early October for a [id number] myocardial infarction. He appears to be stable from a cardiac standpoint. 5. Past history of cerebrovascular accident as evidenced by his head CT scan, which shows generalized atrophy and lacunar and basal gangliar infarcts. No acute infarction was seen this time around. 6. History of dementia. The patient will continue present medical therapy. He is at baseline. 7. History of hypertension. Blood pressure is controlled on present medical therapy. 8. History of secondary hyperparathyroidism. The patient's last phosphorus level was 3.1. The patient had been on Renagel in the outpatient setting and his medication can be restarted if his phosphorous level increases. PLAN: 1. Patient to complete dialysis treatment at the dialysis unit here today. 2. Patient is being considered for a TCU transfer perhaps later today. 3. He will complete a course of antibiotic therapy under the guidance of his Infectious Disease Dr. Diego. 4. Continue to monitor labs, predialysis during his stay in the TCU, should he be transferred. William Erickson MD
--- NOTE | 2016-11-22 19:59 | VASCLAB ---
DATE OF SERVICE: 11/22/2016 HISTORY OF PRESENT ILLNESS: The patient is a 86-year-old male who presented with fever and altered mental status. PAST MEDICAL HISTORY: Includes a recent non-STEMI. He suffers from progressive dementia, hypertension, end stage renal disease, and anemia. He has been on dialysis for his renal insufficiency. The patient denies chest pain, denies shortness of breath. His non-STEMI has been treated successfully with medical therapy. SOCIAL HISTORY: The patient was recently in the TCU. REVIEW OF SYSTEMS: Reviewed in detail. No angina. No shortness of breath. Negative edema. PHYSICAL EXAM: VITAL SIGNS: Blood pressure is 151/84, heart rate is in the 80's. NECK: Negative JVD. LUNGS: Decreased breath sounds. HEART: S1, S2. EXTREMITIES: Without edema. LABORATORY DATA: Hemoglobin is 11.5. Chemistries; potassium is 3.7, troponins are alternating between 0.3 and 0.86. IMPRESSION: 1. Recent non-STEMI. 2. No evidence for active angina. 3. End stage renal disease. 4. Diabetes mellitus. 5. Advanced dementia. PLAN: Given these findings, we will continue treating his non-STEMI with medical therapy. He is currently on aspirin and statin therapy. Jamin Dewey MD
--- NOTE | 2016-11-22 20:03 | PN ---
DATE: SUBJECTIVE: The patient is an 86-year-old -[place] male, currently being treated for an infection, after having been admitted with chills and fevers. The patient has a history of dementia. I spoke with nursing staff. The patient has been refusing certain procedures such as pulmonary efforts by pulmonary staff. The patient is currently receiving hemodialysis for end-stage chronic kidney disease. The patient is also being treated for sepsis. CURRENT MENTAL STATUS EXAMINATION: As follows; he is awake, receiving hemodialysis. Affect quite constrictive. His speech is soft, but answers questions slowly, but accurately. He is oriented x3. Recent memory is mildly to moderately impaired. slept well during the night. Does not remember not cooperating with the nursing staff. The patient denies hallucinations or paranoia. CURRENT LABORATORY DATA: His white count is 9900, hemoglobin of 10.1, platelet count 191,000. His metabolic profile is BUN is 45, creatinine 7.4, estimated GFR of 9, glucose 145. Rest of the profile is all within normal range. The patient has no positive urine or blood cultures. CURRENT MEDICATIONS: Includes Aricept, acetylcysteine, Cozaar, doxycycline, Drisdol, Dulcolax, Ecotrin, Flomax, folate. He has an order for p.r.n. ziprasidone for agitation but does not had any in the past 48 hours, Levemir, Linzess, metoprolol, meropenem 250 mg IV q.12 h., vitamin B complex. He has an order for Risperdal 0.25 mg q.4 h. p.r.n for restlessness. Juan Otero. REVIEW OF SYSTEMS: Denies any physical complaints, but not totally accurate historian. PHYSICAL EXAMINATION: VITAL SIGNS: Blood pressure 151/84, pulse 86, temperature 99.5, respirations 20 per minute, O2 saturation 95% on nasal cannula. IMPRESSION: The patient has a sepsis. He has a history of vascular type dementia with behavioral disturbance. He has end-stage renal disease receiving hemodialysis 3 times a week. The patient has anemia, hypertension, coronary artery disease, recent non-ST myocardial infarction, insulin dependent diabetes mellitus, chronic obstructive pulmonary disease, glaucoma, and benign prostatic hypertrophy. PLAN: We will change Risperdal to 0.25 mg at 10:00 a.m. and 10:00 p.m. daily and we will continue to monitor mental status. Hunter Kurtz MD
--- NOTE | 2016-11-22 20:07 | PN ---
DATE: 11/22/2016 SUBJECTIVE: The patient is in bed, in no acute distress, nontoxic. PHYSICAL EXAMINATION: VITAL SIGNS: Temperature is 99, blood pressure is 150/80 and respiratory rate of 20. HEENT: Unremarkable. NECK: Supple. LUNGS: Have decreased breath sounds. HEART: Normal S1 and S2. ABDOMEN: Soft and nontender. LABORATORY DATA: Reveals a white count of 9.9, hemoglobin of 10, and platelets of 191. Chemistry reveals a BUN of 45, creatinine of 7.4, procalcitonin is 19. Urinalysis is noted. Microbiology, his blood culture is negative, urine culture is negative. ASSESSMENT AND PLAN: An 86-year-old male with recent hospitalization with coronary artery disease, non-ST elevation of myocardial infarction, hypertension, dementia, anemia, end-stage renal disease on hemodialysis, mitral valve prolapse, diabetes, gastrointestinal bleeding, coronary artery disease, cerebrovascular accident, gastric cancer, presenting with sepsis and tachycardia, leukocytosis and secondary to healthcare-associated pneumonia as the source of the sepsis. He will complete 4-7 days of antibiotics, today is day #4. Magdy Diego MD
--- NOTE | 2016-11-23 05:21 | DS ---
FINAL PROGRESS NOTE AND DISCHARGE SUMMARY HISTORY OF PRESENT ILLNESS: The patient is accepted to transitional care unit. The patient is seen in dialysis, the patient is lying in the bed. The patient is alert, awake and responsive, oriented to person. He is able to recognize me and he is able to say his name. PHYSICAL EXAMINATION: VITAL SIGNS: T-max is 100.2. Telemetry shows sinus rhythm. Blood pressure 142/79, 151/84; yesterday's blood pressure ranged between 163 systolic to 175 to 186 and 192, diastolic ranging from 80s, 90s to 100s. Respirations 20. O2 sat 95% to 97% on oxygen. HEENT: Head examination normocephalic and atraumatic. HEENT examination shows pinkish pale conjunctivae. Anicteric sclerae. No oropharyngeal lesions. NECK: No neck rigidity. CHEST: Kyphosis. LUNGS: Shows occasional rhonchi bilaterally. CARDIOVASCULAR: Shows S1, S2, regular rhythm. Questionable soft systolic murmur right sternal border, right second intercostal space. ABDOMEN: Soft. Positive bowel sounds. Nontender. GENITALIA: Male. RECTAL: Deferred. EXTREMITIES: Show positive left upper extremity AV fistula, positive thrill. Getting dialysis. Lower extremity shows no pitting edema. No calf tenderness. No Homans signs. NEUROLOGIC: The patient is alert, awake and oriented x2. VASCULAR: Palpable pulses. Motor sensory 5/5. MUSCULOSKELETAL: Shows a body mass index of 43. Gait examination not tested. PSYCHIATRIC: As per Psychiatry evaluation. DIAGNOSTICS DATA: 11/22/2016; WBC count is down to 9.9, hemoglobin and hematocrit 10.1 and 30.3 and platelets 191, granulocytes 77% segs. Sodium 137, potassium 3.9, chloride 100, CO2 of 24, anion gap 17, BUN 45, creatinine 7.4, GFR 9, glucose 145, 106, 265, 125, calcium 8.8, phosphorus 3.1 and magnesium 1.8. LFTs are normal. Procalcitonin level 19.92. Blood and urine cultures, no growth. IMPRESSION AND PLAN: 1. Recurrent versus refractory high-grade fever, etiology undetermined. 2. Acute non ST-elevation myocardial infarction with elevated troponin. 3. Sepsis with tachycardia, leukocytosis. 4. Healthcare-associated pneumonia as a cause of sepsis. 5. High-grade fever of 103.2. 6. Tachycardia. 7. History of hypertension. 8. Transient uncontrolled hypertension. 9. Acute exacerbation of dementia. 10. Leukocytosis with granulocytosis. 11. Normocytic anemia status post packed red blood cells transfusion. 12. Lactic acidosis. 13. End-stage renal disease, hemodialysis dependent. 14. Hyperprolactinemia. 15. Proteinuria, microscopic hematuria and pyuria. 16. Status post 2 units of PRBC transfusion. 17. 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 20. Lateral wall coronary ischemic changes on the EKG. 21. Fecal retention and stasis. 22. Cardiomegaly. 23. Bibasilar interstitial pneumonia and healthcare-associated pneumonia and air space disease. 24. Bilateral adrenal gland thickening and nodularity. 25. Bilateral renal cyst. 26. Hiatal hernia. 27. Right inguinal hernia with distal ileal loop. 28. Diverticulosis of the colon with fecal stasis and rectal fecal retention. 29. Prostatomegaly. 30. Osteopenia. 31. Degenerative joint disease. 32. Umbilical hernia. 33. Bilateral inguinal hernia containing fluid and fat. 34. Nonobstructed ileum in the right inguinal hernia. 35. Left inguinal hernia with bladder projection. 36. Multiple basal ganglia, old lacunar infarct. 37. Cerebral cortical atrophy and small vessel ischemic disease of the brain. 38. Deconditioning. 39. Gait dysfunction. 40. Questionable behavioral disorder with acute restlessness and agitation. 41. Moderate vascular dementia with behavioral disturbances. 42. Dementia. 43. Hypovitaminosis D. 44. Prostatic hypertrophy. 45. Insulin requiring diabetes mellitus. 46. Dyslipidemia. 47. Constipation. 48. Fever. 1. Sepsis secondary to healthcare-associated bibasilar pneumonia with atelectasis and airspace disease. 2. Sepsis. 3. Tachycardia. 4. Leukocytosis with granulocytosis. 5. High-grade fever of 103.2. 6. Persistent recurrent fever of 100 degrees Fahrenheit. 7. Episodic uncontrolled hypertension. 8. Transient mild hypoxemia. 9. Normocytic anemia with decrease in hemoglobin and hematocrit. 10. Status post packed red blood cell transfusion x2. 11. Lactic acidosis. 12. Hyperprolactinemia. 13. End-stage renal disease, hemodialysis dependent. 14. Acute non-ST elevation myocardial infarction with elevated troponin for medical management. 15. Insulin-requiring type 1 diabetes mellitus. 16. Dementia. 17. Acute exacerbation of dementia with behavioral disorders with agitation and restlessness. 18. Proteinuria, glycosuria. 19. Hematuria. 1. Questionable sepsis versus systemic inflammatory response syndrome with leukocytosis, high grade fever, tachycardia. 2. Altered mental status with confusional state versus toxic metabolic encephalopathy. 3. Agitation with behavioral disorder. 4. History of dementia with multiple exacerbations of dementia. 5. Gait dysfunction. 6. Normocytic anemia with decrease in hemoglobin and hematocrit. 7. End-stage renal disease, hemodialysis dependant, three times a week via the left upper extremity arteriovenous fistula. 8. Deconditioning. 9. Insulin-requiring type 1 diabetes mellitus. 10. Secondary hyperparathyroidism. 11. Diabetic gastroparesis. 12. History of gastrointestinal bleeding. 13. History of multiple non-ST elevation myocardial infarctions with history of coronary artery disease. 1. Sepsis secondary to healthcare-associated bibasilar pneumonia with atelectasis and airspace disease. 2. Sepsis. 3. Tachycardia. 4. Leukocytosis with granulocytosis. 5. High-grade fever of 103.2. 6. Persistent recurrent fever of 100 degrees Fahrenheit. 7. Episodic uncontrolled hypertension. 8. Transient mild hypoxemia. 9. Normocytic anemia with decrease in hemoglobin and hematocrit. 10. Status post packed red blood cell transfusion x2. 11. Lactic acidosis. 12. Hyperprolactinemia. 13. End-stage renal disease, hemodialysis dependent. 14. Acute non-ST elevation myocardial infarction with elevated troponin for medical management. 15. Insulin-requiring type 1 diabetes mellitus. 16. Dementia. 17. Acute exacerbation of dementia with behavioral disorders with agitation and restlessness. 18. Proteinuria, glycosuria. 19. Hematuria. 1. Questionable sepsis versus systemic inflammatory response syndrome with leukocytosis, high grade fever, tachycardia. 2. Altered mental status with confusional state versus toxic metabolic encephalopathy. 3. Agitation with behavioral disorder. 4. History of dementia with multiple exacerbations of dementia. 5. Gait dysfunction. 6. Normocytic anemia with decrease in hemoglobin and hematocrit. 7. End-stage renal disease, hemodialysis dependant, three times a week via the left upper extremity arteriovenous fistula. 8. Deconditioning. 9. Insulin-requiring type 1 diabetes mellitus. 10. Secondary hyperparathyroidism. 11. Diabetic gastroparesis. 12. History of gastrointestinal bleeding. 13. History of multiple non-ST elevation myocardial infarctions with history of coronary artery disease. 1. Questionable sepsis versus systemic inflammatory response syndrome with leukocytosis, high grade fever, tachycardia. 2. Altered mental status with confusional state versus toxic metabolic encephalopathy. 3. Agitation with behavioral disorder. 4. History of dementia with multiple exacerbations of dementia. 5. Gait dysfunction. 6. Normocytic anemia with decrease in hemoglobin and hematocrit. 7. End-stage renal disease, hemodialysis dependant, three times a week via the left upper extremity arteriovenous fistula. 8. Deconditioning. 9. Insulin-requiring type 1 diabetes mellitus. 10. Secondary hyperparathyroidism. 11. Diabetic gastroparesis. 12. History of gastrointestinal bleeding. 13. History of multiple non-ST elevation myocardial infarctions with history of coronary artery disease. PLAN: At this time, the patient is to be discharged and accepted to TCU. The patient will be discharged to transitional care unit with continuation of cardiology, infectious disease and nephrology and psychiatry consultation. DISCHARGE MEDICATIONS: 1. Mucomyst nebulizer treatment 4 mL, 20%. 2. Xopenex nebulizer treatment 0.63 mg every 6 hours. 3. Aricept 10 mg at bedtime. 4. Cozaar 100 mg daily. 5. Doxycycline 100 mg q. 12. 6. Drisdol 50,000 weekly. 7. Dulcolax suppository 10 mg Tuesday, Tuesday and Tuesday. 8. Ecotrin 81 mg daily. 9. Flomax 0.4 mg daily. 10. Folic acid 1 mg daily. 11. Geodon 10 mg IM q. 6 hours p.r.n. 12. Humulin low dose sliding scale coverage a.c. and at bedtime. 13. Imdur 120 mg daily. 14. Levemir 5 units subcu once a day. 15. Linzess 145 mcg daily. 16. MiraLax 17 g twice a day. 17. Lipitor 40 mg daily. 18. Meropenem 500 mg q. 12. 19. Bystolic 5 mg daily. 20. Lopressor 25 mg twice a day. 21. Nephro-Jaylin 1 tablet daily. 22. Protonix 40 mg daily. 23. Risperdal 0.25 mg p.o. q. 4 p.r.n. 24. Tessalon Perles 100 mg 3 times a day. 25. Tylenol 650 mg suppository p.o. q. 4 hours p.r.n. for temperature greater than or equal to 99.5 degrees Fahrenheit. 26. Xalatan eye drops 0.005%. PT has been ordered, dysphagia-modified consistency diet, heart-healthy renal dialysis diet ordered. The patient will be continued on physical therapy, occupational therapy, ambulation therapy and gait training. The patient's Alma Ba has been updated about the patient's condition over the weekend and overall deteriorating and declining patient's condition was explained to the patient's Mejia. All the details regarding the patient's condition, patient's decline in the health standard, deconditioning discussed and explained to the patient's at length in layman's language. All questions and concerns were answered. Time spent in the entire discharge process was more than 45 minutes. Dictated and electronically signed, not read. Zeyad Nazario MD MTDD
--- NOTE | 2016-12-02 09:01 | PN ---
DATE: 11/19/2016 SUBJECTIVE: The patient is seen lying in room 263, bed 1. The patient is comfortable. The patient's vital signs noted. The patient is admitted overnight through the emergency room. PHYSICAL EXAMINATION: GENERAL: The patient is alert, awake, responsive, oriented to person. He is able to say his name, my name, oriented to place, is oriented to year, date and month. The patient follows simple commands. VITAL SIGNS: T-max is 103, down to 100, to 99. Telemetry shows sinus rhythm, sinus tachycardia. Respiration 18-20, O2 sat is 95-98%, blood pressure 138/84, 140/74. HEENT: Head examination normocephalic, atraumatic. HEENT examination shows pinkish pale conjunctivae. No oropharyngeal lesion. No neck rigidity. CHEST: Kyphosis. Positive rhonchi, crackles, rhonchi bilateral upper lung chaney, anteriorly and posteriorly. CARDIOVASCULAR: S1, S2, regular rhythm. Questionable soft systolic murmur, right second intercostal space, left sternal border, left second intercostal space. ABDOMEN: Soft. Positive bowel sounds. GENITALIA: Male. RECTAL: Deferred. EXTREMITIES: Show positive left upper extremity AV fistula. No gross skin breakdown noted. DIAGNOSTICS: As per resident note and as per lab data. CAT scan of the abdomen and pelvis reviewed. Chest x-ray, EKG reviewed. Cardiac enzymes, troponin elevated. IMPRESSION: 1. Questionable and possible sepsis. 2. Questionable possible systemic inflammatory response syndrome. 3. High-grade fever. 4. Sinus tachycardia. 5. Questionable aspiration pneumonia. 6. Questionable aspiration pneumonia with abnormal lung sounds on clinical examination. 7. Leukocytosis with granulocytosis. 8. Anemia of chronic kidney disease. 9. Insulin-requiring diabetes mellitus. 10. End-stage renal disease, hemodialysis dependent. 11. Recurrent encephalopathy with underlying advanced dementia. 12. History of hypertension. 13. End-stage renal disease, hemodialysis dependent 3 times a week via the left upper extremity AV fistula. 14. Altered mental status and episodic confusion, resolving. 15. Gait dysfunction. 16. Deconditioning. 17. Questionable non-ST elevation myocardial infarction with elevated troponin. 18. Bifascicular block with right bundle-branch block, left anterior hemiblock. 1. Shortness of breath with weakness and recurrent falls. 2. Severe deconditioning and gait dysfunction. 3. Low grade fever. 4. Questionable right lower lobe chronic pneumonia and infiltrate. 5. Volume overload with pulmonary vascular congestion. 6. Hypertension. 7. Transient hypoxemia. 8. Normocytic anemia with granulocytosis. 9. End-stage renal disease, hemodialysis dependent. 10. Increased anion gap metabolic acidosis. 11. Insulin-requiring diabetes mellitus. 12. Indeterminate troponin. 13. Possible right-sided diastolic congestive heart failure with elevated brain natriuretic peptide and pulmonary vascular congestion and possible right lower lobe pneumonia. 14. Bifascicular block, left anterior hemiblock, and right bundle-branch block. 15. Angina. 16. Coronary artery disease with multiple non-ST elevation myocardial infarction. 17. History of hypertension. 18. Prostate hypertrophy. 19. Dementia. 20. Hypovitaminosis D. 21. Dyslipidemia. 22. Constipation. 23. Behavioral disorder. PLAN: Plan at this time, the patient is to be continued on telemetry strip, broad-spectrum IV antibiotic as per infectious disease recommendation. The patient will be consulted with cardiology. The patient has been ordered out of bed to chair, physical therapy, ambulation therapy, gait therapy. The patient has been ordered bronchodilators, expectorants. The patient will be ordered chest PT. The patient's condition, diagnosis discussed and explained to the patient's Gabe Ba, who I met on the floor. I have updated the patient's about the patient's diagnostic test results, treatment plan, management plan, etc., in detail. All questions and concerns answered to the patient's satisfaction. For further details, please review the resident's progress note from 11/19/2016 also. Dictated and electronically signed, not read. Zeyad Nazario MD BRE[facility]
== END 2016-11-22 16:46 | DRG 871 ==
LOC: ED 19:17 → ERH 23:07 → 2RNO 11-19 00:43
PROVIDERS: ADMIT Internal Medicine; ATTEND Internal Medicine
PROC: 5A1D60Z (ICD-10-PCS; principal; 2016-11-19)
PROC: 30233N1 Transfusion of Nonautologous Red Blood Cells into Peripheral Vein, Percutaneous Approach (ICD-10-PCS; 2016-11-20)
DX: A41.9 Sepsis, unspecified organism (principal); J18.9 Pneumonia, unspecified organism; I21.4 Non-ST elevation (NSTEMI) myocardial infarction; N18.6 End stage renal disease; E87.2 Acidosis; J44.0 Chronic obstructive pulmonary disease with (acute) lower respiratory infection; F01.51 Vascular dementia, unspecified severity, with behavioral disturbance; I12.0 Hypertensive chronic kidney disease with stage 5 chronic kidney disease or end stage renal disease; I45.2 Bifascicular block; N25.81 Secondary hyperparathyroidism of renal origin; J98.11 Atelectasis; I25.10 Atherosclerotic heart disease of native coronary artery without angina pectoris; K56.41 Fecal impaction; I44.0 Atrioventricular block, first degree; D63.1 Anemia in chronic kidney disease; N28.1 Cyst of kidney, acquired; K44.9 Diaphragmatic hernia without obstruction or gangrene; E11.22 Type 2 diabetes mellitus with diabetic chronic kidney disease; K57.30 Diverticulosis of large intestine without perforation or abscess without bleeding; M19.90 Unspecified osteoarthritis, unspecified site; M85.80 Other specified disorders of bone density and structure, unspecified site; K40.20 Bilateral inguinal hernia, without obstruction or gangrene, not specified as recurrent; K42.9 Umbilical hernia without obstruction or gangrene; E78.5 Hyperlipidemia, unspecified; E55.9 Vitamin D deficiency, unspecified; N40.0 Benign prostatic hyperplasia without lower urinary tract symptoms; I34.1 Nonrheumatic mitral (valve) prolapse; Y95 Nosocomial condition; H40.9 Unspecified glaucoma; E83.39 Other disorders of phosphorus metabolism; R26.9 Unspecified abnormalities of gait and mobility; Z95.5 Presence of coronary angioplasty implant and graft; Z79.82 Long term (current) use of aspirin; Z87.891 Personal history of nicotine dependence; Z79.4 Long term (current) use of insulin; Z99.2 Dependence on renal dialysis; Z86.73 Personal history of transient ischemic attack (TIA), and cerebral infarction without residual deficits; Z85.028 Personal history of other malignant neoplasm of stomach

== ENCOUNTER 2016-11-22 16:26 | Inpatient (IN) | payer OTHER, BC ==
[2016-11-22 18:08] VITALS: BMI 24.2
[2016-11-22] MEDS: Acetylcysteine 20% Inhal Soln (4ml) IH SCH (20:01)
[2016-11-22] MEDS: Levalbuterol 0.63 MG/3 ML Inhal Soln UD IH SCH (20:01)
[2016-11-22] MEDS: Latanoprost 2.5 ml Opht Soln OU SCH (21:30)
[2016-11-22] MEDS: Insulin Reg-LOW-Coverage SC SCH (22:03)
[2016-11-23] MEDS: Levalbuterol 0.63 MG/3 ML Inhal Soln UD IH SCH ×4 (01:45→20:00)
[2016-11-23] MEDS: Pantoprazole 40 mg EC Tab PO SCH (05:34)
[2016-11-23] MEDS: Acetylcysteine 20% Inhal Soln (4ml) IH SCH ×4 (05:44→20:00)
--- NOTE | 2016-11-23 07:25 | CP.PCM.HP ---
History of Present Illness - History of Present Illness History of Present Illness: Internal medicine H & P for Dr. Felipe Kendrick, PGY-1 Pt S & E at bedside. 86M re-admitted after recent rehab for AMS as per family. Pt was recently hospitalized for AMS 2/2 NSTEMI with subsequent TCU rehabilitation. This hospitalization, pt found to have sepsis 2/2 HCAP, was started on Abx- seen/ evaluated by ID with recs for Abx for HCAP. Pt with constipation, modified bowel regimen. Found to have some anemia, treated with blood transfusion. Pt seen/evaluated by nephro with continuation of HD. Pt seen/evaluated by psych 2/ 2 agition with recs for Beck RYAN severe agitation. Pt with improved in symptoms- AMS resolved, pt now at baseline dementia, but with de-conditioning. Pt transferred to [facility] for rehab. Denies N/V/F/C, SOB, CP, ab pain, LE pain, other complaints. PMH: ESRD on HD (M/W/F), prior HCAP, CAD s/p stenting, GI bleeds, CVA, Gastric cancer, Mitral valve prolapse, DM, and dementia PSH: AVF L forearm All: NDKA SH: Hx tobacco use, no reported EtOH or Illicits Present on Admission - Present on Admission Any Indicators Present on Admission: No History of DVT/PE: No History of Uncontrolled Diabetes: No Urinary Catheter: No Decubitus Ulcer Present: No Review of Systems - Review of Systems All systems: reviewed and no additional remarkable complaints except - Constitutional Constitutional: absent: Chills, Fever - EENT Eyes: absent: Change in Vision Ears: absent: Dizziness Nose/Mouth/Throat: absent: Sore Throat - Cardiovascular Cardiovascular: absent: Chest Pain - Respiratory Respiratory: absent: Cough - Gastrointestinal Gastrointestinal: absent: Abdominal Pain, Nausea, Vomiting - Genitourinary Genitourinary: absent: Change in Urinary Stream - Musculoskeletal Musculoskeletal: absent: Numbness, Tingling - Integumentary Integumentary: absent: New Lesions - Neurological Neurological: Behavioral Changes Past Patient History - Infectious Disease Hx of Infectious Diseases: None - Tetanus Immunizations Tetanus Immunization: Unknown - Past Medical History & Family History Past Medical History?: Yes - Past Social History Smoking Status: Former Smoker - CARDIAC Hx Cardiac Disorders: Yes Hx Heart Attack: Yes Hx Hypertension: Yes - PULMONARY Hx Chronic Obstructive Pulmonary Disease (COPD): Yes - NEUROLOGICAL HX Cerebrovascular Accident: Yes - HEENT Hx HEENT Problems: Yes (WEARS RX GLASSES) Hx Epistaxis: Yes - RENAL Hx Renal Failure: Yes - ENDOCRINE/METABOLIC Hx Diabetes Mellitus Type 1: Yes - HEMATOLOGICAL/ONCOLOGICAL Hx Cancer: Yes (gastric) - INTEGUMENTARY Hx Dermatological Problems: No - MUSCULOSKELETAL/RHEUMATOLOGICAL Hx Falls: No - GASTROINTESTINAL Hx Gastrointestinal Disorders: Yes - GENITOURINARY/GYNECOLOGICAL Hx Reproductive Disorders: No - PSYCHIATRIC Hx Psychophysiologic Disorder: No Hx Emotional Abuse: No Hx Substance Use: No - SURGICAL HISTORY Hx Cholecystectomy: Yes Hx Coronary Stent: Yes (x1) Other/Comment: AV shunt placement. - ANESTHESIA Hx Anesthesia Reactions: No Hx Malignant Hyperthermia: No Meds Allergies/Adverse Reactions: Allergies Allergy/AdvReac Type Severity Reaction Status Date / Time No Known Allergies Allergy Verified 11/18/16 19:28 Physical Exam - Constitutional Appears: Non-toxic, No Acute Distress, Confused - Head Exam Head Exam: ATRAUMATIC, NORMAL INSPECTION, NORMOCEPHALIC - Eye Exam Eye Exam: EOMI, Normal appearance - ENT Exam ENT Exam: Mucous Membranes Moist, Normal Exam - Neck Exam Neck exam: Positive for: Normal Inspection - Respiratory Exam Respiratory Exam: Decreased Breath Sounds (at bases B/L), NORMAL BREATHING PATTERN. absent: Rales, Rhonchi, Wheezes, Respiratory Distress, Stridor - Cardiovascular Exam Cardiovascular Exam: REGULAR RHYTHM, +S1, +S2 - GI/Abdominal Exam GI & Abdominal Exam: Normal Bowel Sounds, Soft. absent: Distended, Firm, Guarding, Rebound, Rigid, Tenderness - Extremities Exam Extremities exam: Positive for: normal inspection. Negative for: pedal edema - Neurological Exam Neurological exam: CN II-XII Intact Additional comments: arousable to verbal stimuli, AOx1 - Psychiatric Exam Psychiatric exam: Normal Affect, Normal Mood - Skin Skin Exam: Dry, Intact, Normal Color, Warm Results - Vital Signs Recent Vital Signs: Last Vital Signs Temp 98.8 F 11/23/16 06:00 Pulse 81 11/23/16 06:00 Resp 20 11/23/16 06:00 BP 136/72 11/23/16 06:00 Pulse Ox 96 11/23/16 06:00 Assessment & Plan - Assessment and Plan (Free Text) Assessment: 85Y AA M with PMH CVA, ESRD on HD (MWF), dementia, CAD s/p stent, DM, MVP, GI bleed, gastric cancer who was admitted for deconditioning s/p hospitalization, stable overnight with one episode of agitation Plan: Dementia with agitation AOx1 Baseline AOx2 Aricept Risperidone PRN Monitor Psych consulted Fever Tmax 100.2 Monitor for leukocytosis Tylenol PO Merrem ID consulted Chronic constipation Dulcolax Miralax Linzess Monitor Anemia/Hx GI bleed Avoid NSAIDS, anticoagulants Contraindications to VTE ppx Recent NSTEMI ASA High risk for GI bleed Contraindications to other anticoagulation Lipitor Cardio consulted ESRD on HD HD (MWF) Renagel Nephro-Vit Folic Acid Vit D Nephro consulted DM ISS Levemir Accuchecks HTN Lopressor Cozaar Imdur Bystolic Monitor COPD Tessalon Perles Xopenex Mucomyst Chest PT Hx Glaucoma Latanoprost Hx of BPH Flomax GI/DVT ppx TEDs SCDs Protonix Contraindications to VTE ppx 2/2 high risk of GI bleed Dispo Dysphagia/HHD/renal on HD diet Supplements PT/OT OOBTC Activity as nima Will DW attending Mireille, PGY-1 - Date & Time Date: 11/23/16 Time: 06:45 Decision To Admit - Pt Status Changed To: Hospital Disposition Of: Inpatient Admission - Admit Certification Admit to Inpatient:: After my assessment, the patient will require hospitalization for at least two midnights. This is because of the severity of symptoms shown, intensity of services needed, and/or the medical risk in this patient being treated as an outpatient. - . Bed Request Type: [facility] Admitting Physician: Zeyad Nazario
[2016-11-23] MEDS: Insulin Reg-LOW-Coverage SC SCH ×4 (08:01→21:29)
[2016-11-23] MEDS: POLYETHYLENE GLYCOL 3350 17 GM/Dose PACKET PO SCH ×2 (10:53→17:49)
[2016-11-23] MEDS: Insulin Detemir 100 units/ml Vial (Levemir) SC SCH (10:53)
[2016-11-23] MEDS: Multivitamin Vitamin B Complex (Nephro-Vite) Tab PO SCH (10:53)
--- NOTE | 2016-11-23 15:32 | HP ---
ADDENDUM The patient is now admitted to transitional care unit. For complete details history and physical examination, please refer to the history and physical examination done by the nuclear medical tech. The patient is in room 320, bed 1. The patient is lying in the bed. The patient is watching TV. The patient is alert, awake, and oriented x2-3. PHYSICAL EXAMINATION: GENERAL: Overnight nurse's notes were reviewed. The patient was found to be alert, awake, oriented x2 with episodic confusion. The patient also had 1 episode of being little bit aggressive for which the patient needed Risperdal 0.25 one dose and the patient slept overnight well without any adverse complications. The patient is seen lying in the bed. VITAL SIGNS: T-max was 100.2, down to 98.8, heart rate 81-82-84-91, blood pressure 146/75, 136/72, 137/74, respirations 18-20, and O2 sat 97%. HEAD: Normocephalic, atraumatic. HEENT: Shows pinkish pale conjunctivae. Anicteric sclerae. No oropharyngeal lesion. NECK: No neck rigidity. CHEST: Kyphosis. LUNGS: Shows no rales, crackles, or wheezing. Occasional upper lung field rhonchi. CARDIOVASCULAR: S1 and S2. Regular rhythm. ABDOMEN: Soft. Positive bowel sounds. GENITALIA: Male. RECTAL: Deferred. EXTREMITIES: No pitting edema. No calf tenderness. No Consuelo's sign. Left upper extremity positive thrill. NEUROLOGIC: The patient is alert, awake, and oriented x2-3. Positive AV fistula noted. Gait examination is not tested. Cranial nerves II-XII limited. MUSCULOSKELETAL: Shows body mass index of 24. IMPRESSION 1. Deconditioning. 2. Gait dysfunction. 3. Acute non-ST elevation myocardial infarction with elevated troponin. 4. Sepsis. 5. Healthcare-associated pneumonia as a cause of sepsis. 6. High grade fever. 7. Tachycardia. 8. Leukocytosis. 9. Acute exacerbation of dementia. 10. Dyslipidemia. 11. Insulin-requiring diabetes mellitus. 12. Dementia. 13. Hypertension. 14. Hypovitaminosis D. 15. Constipation. 16. Prostatic hypertrophy. 17. Oropharyngeal dysphagia (resolved). PLAN: At this time, the patient has been ordered repeat labs. Consultation Cardiology, Infectious Disease, Nephrology, and Psychiatry. CURRENT MEDICATIONS: 1. Mucomyst nebulizer 20% 4 mL with Xopenex nebulizer 0.63% every 6 hours. 2. The patient is on Aricept 10 mg at bedtime. 3. Cozaar 100 mg daily. 4. Doxycycline 100 mg p.o. q.12 hours. 5. Drisdol 50,000 weekly. 6. Dulcolax suppository 10 mg Tuesday, Tuesday, and Tuesday. 7. Ecotrin 81 mg daily. 8. Flomax 0.4 mg daily. 9. Folic acid 1 mg daily. 10. Regular insulin low dose sliding scale coverage before meals and bedtime. 11. Imdur 120 mg daily. 12. Levemir 5 units daily. 13. Lipitor 40 mg daily. 14. Lopressor 25 mg twice a day. 15. Meropenem 250 mg IV q.12 hours. 16. MiraLax 17 g twice a day. 17. Nephro-Jaylin 1 tablet daily. 18. Protonix 40 mg daily. 19. Risperdal 0.25 mg q.4 hours p.r.n. and Risperdal 0.25 b.i.d. 20. Tessalon Perles 100 mg 3 times a day. 21. Tylenol 650 mg and suppository or p.o. for temperature greater than or equal to 99.5. 22. Xalatan eye drops. Dysphagia modified consistent diet, SAMAN stockings, SCDs, out of bed has been ordered. The patient will be continued to be on transitional care unit with physical therapy, ambulation therapy, gait training, and strengthening. For further details, the patient's history and physical examination detail, please refer to the history and physical examination done by the nuclear medical tech. Dictated and electronically signed, not read. Zeyad Nazario MD
--- NOTE | 2016-11-23 16:37 | PN ---
DATE: 11/23/2016 SUBJECTIVE: The patient is in the TCU sitting in bed eating comfortable without chest pain and without shortness of breath. PHYSICAL EXAMINATION: VITAL SIGNS: Blood pressure 137/74, heart rate in the 80s. NECK: Negative JVD. LUNGS: Without rales. HEART: With S1 and S2. EXTREMITIES: Without change. LABORATORY DATA: Glucose is 163. IMPRESSION 1. Marked dementia. 2. Recent non ST-elevation myocardial infarction. 3. Coronary artery disease. 4. End-stage renal disease. PLAN: Given these findings, I have discussed with the patient's about treatment for his non-STEMI with medical therapy. Because of his multiple comorbidities, there are no plans for cardiac invasive procedure. Devan Dewey MD
--- NOTE | 2016-11-23 17:10 | PN ---
DATE: SUBJECTIVE: The patient was transferred to the TCU post dialysis yesterday. He appeared to be stable. His level of dementia appears to be at baseline. He is completing a course of antibiotic therapy for possible lower lobe pneumonia healthcare facility acquired. OBJECTIVE: VITAL SIGNS: Blood pressure 137/74, temperature 97.5, T-max last 24 hours is 100.2. Respiratory rate is 18 with a pulse of 80. HEENT: Shows him to be normocephalic, atraumatic. Conjunctivae remained pale. Sclerae are nonicteric. NECK: Supple. No neck vein distention. CHEST: Clear to auscultation and percussion. No rales, no rhonchi or wheezing. He has slight decreased breath sounds at the bases. CARDIOVASCULAR: Shows a regular rate and rhythm with a soft systolic murmur in the left lower sternal border. No S3, no S4, no rub. ABDOMEN: Soft. Bowel sounds normal. No rebound. No guarding. No masses. EXTREMITIES: Shows left upper extremity AV fistula, positive thrill, positive bruit. No lower extremity edema. IMAGING DATA: Done possible basilar infiltrates on his chest CT scan consistent with possible healthcare-acquired pneumonia. LABORATORY DATA: No labs from today. Laboratory data from yesterday, white blood cell count down to 9.9, hemoglobin 10.1 with a platelet count of 191,000. Chemistries, normal electrolytes, BUN 45, creatinine 7.4, calcium 8.8 with a phosphorus of 3.1. ASSESSMENT: 1. End-stage renal disease. The patient will continue Tuesday, Tuesday and Tuesday dialysis. 2. Sepsis on admission with altered mental status above and beyond his baseline level of dementia. The patient was febrile. The patient was found to have a lower lobe pneumonia likely hospital acquired as he was in the hospital recently. The patient will complete a course of IV antibiotic therapy. The patient is currently on doxycycline and meropenem. 3. History of non-insulin dependent diabetes mellitus. The patient will continue on insulin. Glucose control is acceptable. 4. History of arteriosclerotic heart disease, status post percutaneous transluminal coronary angioplasty with bare metal stent earlier this year. Most recent hospitalization was for a non-ST elevation myocardial infarction. He appears to be stable from a cardiac standpoint. 5. History of dementia. The patient appears to be at baseline. 6. History of hypertension. Blood pressure is controlled on present medical therapy. The patient will continue losartan and metoprolol. 7. History of secondary hyperparathyroidism. Yesterday's phosphorus level was 3.1. The patient is presently not receiving binder therapy. PLAN: 1. The patient will continue Tuesday, Tuesday and Tuesday dialysis. His next dialysis is scheduled for tomorrow. 2. We will continue to check pre-dialysis labs three times a week. From my standpoint, those will be the only labs that need to be done. 3. Complete a course of antibiotic therapy both IV and oral as per Dr. Diego for his likely lower lobe hospital-acquired pneumonia. 4. Continue rehabilitation in the TCU. 5. Discussion with family all options regarding discharge home. It appears that when he goes home, he is comfortable very short period of time and returns to the hospital. William Erickson MD
[2016-11-23] MEDS: Latanoprost 2.5 ml Opht Soln OU SCH (21:30)
--- NOTE | 2016-11-24 02:50 | CON ---
DATE: 11/23/2016 HISTORY OF PRESENT ILLNESS: The patient is an 86-year-old male, who is currently being treated on a transitional care unit. I reviewed the chart. I spoke to the nursing staff, who is caring for the patient. The patient was hospitalized on the medical surgical department for sepsis syndrome. The patient was transferred here due to debilitation for acute rehabilitation. PAST MEDICAL HISTORY: He has a history of end-stage renal disease, he is on hemodialysis 3 times a week. The patient has periods of agitation along the medical surgical floor due to vascular dementia. He also has a history in addition to end-stage renal disease, anemia, hypertension, coronary artery disease, recent non-ST wave myocardial infarction, insulin-dependent diabetes mellitus, chronic obstructive pulmonary disease, glaucoma and benign prostatic hyperplasia. PERSONAL HISTORY: He lives with his , who he has been for many years. 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 The patient has no history of alcohol or substance abuse. CURRENT MEDICATIONS: As follows, he is receiving acetylcysteine, Aricept, Cozaar, doxycycline, once a week, Dulcolax, Ecotrin, Flomax, folate, Imdur, Levemir, Lipitor, Lopressor, meropenem, vitamin D complex, Protonix, Risperdal 0.25 mg b.i.d., and he is on Tessalon Perles. CURRENT LABORATORY DATA: As follows; his glucose is 163 as of 11:05 this morning. His most recent metabolic profile on medical floor reveals all normal electrolytes and anion gap. His BUN yesterday was 45, creatinine 7.4. Estimated GFR 9. His all other profile was normal. REVIEW OF SYSTEMS: He denies any complaints from 12-point review of systems except for generalized weakness and some difficulty walking. PHYSICAL EXAMINATION: VITAL SIGNS: As follows, his blood pressure is 137/74, pulse 80, respirations 18 per minute, afebrile, O2 saturation 97% on room air. PSYCHIATRIC: His mental status, he is awake, he is alert, he is oriented x3. His thought processes somewhat slow, but able to have carry on relatively normal conversation. His recent memory have mildly impaired, recalls 1 out of 3 objects after 3 minutes. He denies hallucinations, paranoia, suicidal ideation or depression. Denies anxiety attacks. I spoke with nursing staff, who said the patient is much more cooperative than on past admissions to this floor. IMPRESSION: The patient has mild dementia with recent behavioral disturbance. The patient has end-stage renal disease, he is on hemodialysis 3 times a week. He has a gait dysfunction. He has lacunar infarcts with a brain atrophy. He has history of vitamin D deficiency, history of non-ST wave myocardial infarction, history of chronic obstructive pulmonary disease, history of insulin-dependent diabetes mellitus, history of hyperlipidemia, hypertension, history of sepsis on IV antibiotics, he has glaucoma. PLAN: Continue Risperdal 0.25 mg b.i.d. for behavioral disturbance and agitation related to dementia. He has adverse effects from this medication. We will continue to monitor mental status. Hunter Kurtz MD
[2016-11-24] MEDS: Acetylcysteine 20% Inhal Soln (4ml) IH SCH ×4 (02:58→19:38)
[2016-11-24] MEDS: Levalbuterol 0.63 MG/3 ML Inhal Soln UD IH SCH ×4 (02:58→19:38)
--- NOTE | 2016-11-24 03:52 | CON ---
DATE: 11/23/2016 SUBJECTIVE: The patient was seen earlier this morning in room #320. CHIEF COMPLAINT: Weakness from several days. HISTORY OF PRESENT ILLNESS: This is an 86-year-old male, who was admitted from acute care. The patient was recently in the hospital, was recently discharged from transitional care to the acute care, where he had been admitted with a non-ST elevation [place]; hypertension; dementia; anemia; end-stage renal disease, on hemodialysis; diabetes mellitus; and GI bleed. The patient had a questionable admitted with change of mental status, which had resolved back to baseline. No fevers, no chills. At this point, no nausea or vomiting. PAST MEDICAL HISTORY: Significant for hypertension; dementia; anemia; end-stage renal disease, on hemodialysis; diabetes mellitus; GI bleed; coronary artery disease; cerebrovascular accident; gastric cancer; and mitral valve prolapse. PAST SURGICAL HISTORY: Significant for an AV shunt placement. ALLERGIES: THE PATIENT HAS NO KNOWN ALLERGIES. MEDICATIONS: Noted. REVIEW OF SYSTEMS: Noted. A 12-point review of systems is reviewed. PHYSICAL EXAMINATION: VITAL SIGNS: The patient's temperature is 97, yesterday the patient had a T-max of 100.2; blood pressure is 130/70; respiratory rate 18 and heart rate of 80. HEENT: Unremarkable. NECK: Supple. LUNGS: Decreased breath sounds. HEART: Normal S1 and S2. ABDOMEN: Soft and nontender. No organomegaly. No rebound. No guarding. No masses. LABORATORY DATA: Reveals a white count of 9.9, hemoglobin of 10, platelets of 191, and coagulation is noted. Chemistries revealed a BUN of 45, creatinine of 7.4, procalcitonin is 19.9. Urinalysis is noted, protein and 32 wbc's. Microbiology reveals the blood cultures have been negative, urine cultures are negative, initial blood cultures have been negative. Imaging is noted. Dr. Nazario's note is reviewed. note is noted. ASSESSMENT AND PLAN: This is an 86-year-old male, recent hospitalization; coronary artery disease, non-ST elevation myocardial infarction; hypertension; dementia; anemia; end-stage renal disease, on hemodialysis; mitral valve prolapse; diabetes; gastrointestinal bleeding; coronary artery disease; cerebrovascular accident; history of gastric cancer and was admitted with sepsis with tachycardia, leukocytosis secondary to a healthcare-associated pneumonia and today is day #5 of doxycycline and meropenem, would complete 4 to 7 days of antibiotics. Case is discussed with nursing staff this morning. We will follow with you. Magdy Diego MD
[2016-11-24] MEDS: Pantoprazole 40 mg EC Tab PO SCH (06:26)
[2016-11-24] MEDS: Insulin Reg-LOW-Coverage SC SCH ×4 (06:32→21:45)
[2016-11-24] MEDS: POLYETHYLENE GLYCOL 3350 17 GM/Dose PACKET PO SCH ×2 (09:44→19:07)
[2016-11-24] MEDS: Multivitamin Vitamin B Complex (Nephro-Vite) Tab PO SCH (09:49)
[2016-11-24] MEDS: Insulin Detemir 100 units/ml Vial (Levemir) SC SCH (09:50)
--- NOTE | 2016-11-24 13:58 | PN ---
DATE: 11/24/2016 SUBJECTIVE: The patient is breathing, is stable. No chest pain noted. He is able to work in the gym with a 2 pounds weight on his lower extremities. PHYSICAL EXAMINATION: VITAL SIGNS: Blood pressure is 130/80, heart rate in the 70s. NECK: Negative JVD. LUNGS: Without rales. HEART: S1 and S2. EXTREMITIES: Without change. LABORATORY DATA: The glucose is 163. IMPRESSION: 1. Stable angina. 2. Recent non-ST segment elevation myocardial infarction. 3. End-stage renal disease. 4. Coronary artery disease. 5. Dementia. PLAN: Given these findings, the patient is doing remarkably well on his present medications. Jamin Dewey MD
--- NOTE | 2016-11-24 14:23 | PN ---
DATE: SUBJECTIVE: The patient is currently seen ambulating in the room, using a rolling walker together with the physical therapist. He had an uneventful dialysis yesterday. His level of dementia appears to be at baseline. The patient is completing a course of antibiotics for a healthcare facility acquired pneumonia. MEDICATIONS: List is reviewed. The patient is currently on acetylcysteine, Aricept, losartan, Doryx, vitamin D, Dulcolax, Ecotrin, Flomax, folic acid, insulin, Imdur, Lipitor, Lopressor, meropenem, MiraLax, Nephro-Jaylin, Protonix, Risperdal, Tessalon Perles, Tylenol p.r.n., Xalatan and Xopenex. OBJECTIVE: VITAL SIGNS: Blood pressure 130/79, temperature 97.1, respiratory rate is 16 with a pulse of 71. HEENT: Normocephalic, atraumatic. Conjunctivae are pale. Sclerae are nonicteric. NECK: Supple. No neck vein distention. CARDIOVASCULAR: Shows a regular rate and rhythm with a soft systolic murmur in left lower sternal border. No S3, no S4, no rub. CHEST: Clear to auscultation and percussion. No rales, no rhonchi, no wheezing. Slight decreased breath sounds at the bases. ABDOMEN: Soft and nontender. No rebound, no guarding. Bowel sounds are normal. No masses are appreciated. EXTREMITIES: Show left upper extremity AV fistula. Positive thrill, positive bruit. No lower extremity edema. IMAGING DATA: Chest CT scan done in acute care showed possible healthcare acquired pneumonia with bibasilar infiltrates. LABORATORY DATA: Last white blood cell count 9.9, hemoglobin 10.1 with a platelet count of 191,000. Chemistries showed a BUN of 45 with a creatinine of 7.4, potassium level 3.9. Calcium is 8.8 with a phosphorus level of 3.1, magnesium level 1.8. ASSESSMENT: 1. End-stage renal disease. The patient will continue Tuesday, Tuesday and Tuesday dialysis. He is scheduled for dialysis later today. 2. Status post altered mental status, possible sepsis related to healthcare acquired pneumonia. The patient as per the infectious disease now will complete a full course of antibiotic therapy. He is on oral and IV antibiotic therapy. 3. History of non-insulin dependent diabetes mellitus. The patient will continue on insulin at the present time. Glucose control is acceptable. 4. History of arteriosclerotic heart disease status post percutaneous transluminal coronary angioplasty with bare metal stent earlier this year. Most recent hospitalization this summer was for a non-ST elevation myocardial infarction. In light of his comorbidities, the patient was seen by cardiology and is being treated medically. 5. History of dementia. The patient appears to be back at baseline levels and appears to be well compensated on present medication. 6. History of hypertension. Blood pressure control is acceptable. 7. History of secondary hyperparathyroidism. Phosphorus level remains in the low normal range, so the patient at present is not receiving any binder therapy. PLAN: 1. Hemodialysis later today. We will continue on a Tuesday, Tuesday and Tuesday schedule. 2. We will check his laboratory work with his pre-dialysis labs, this will include CBC, chem profile, and phosphorus level. 3. Complete full course of antibiotic therapy. 4. Continue rehabilitation in the TCU. 5. The patient's family will discuss with the staff in the TCU about the possibility of long-term care as patient continues to have frequent readmissions to the hospital. William Erickson MD
--- NOTE | 2016-11-24 15:46 | CP.PCM.PN ---
Subjective - Date & Time of Evaluation Date of Evaluation: 11/24/16 Time of Evaluation: 10:45 - Subjective Subjective: Comfortable in bed, no fevers, no SOB at rest, no diarrhea. Objective - Vital Signs/Intake and Output Vital Signs (last 24 hours): Temp Pulse Resp BP Pulse Ox 97.1 F L 71 16 130/79 95 11/23/16 16:58 11/24/16 08:23 11/23/16 16:58 11/24/16 08:23 11/23/16 16:58 - Medications Medications: Current Medications Acetaminophen (Tylenol 325mg Tab) 650 mg PO Q6H PRN; Protocol PRN Reason: Temperature Acetaminophen (Tylenol 650 Mg Supp) 650 mg RC Q6H PRN; Protocol PRN Reason: Temperature Acetylcysteine (Acetylcysteine 20%) 4 ml IH [id number] FRANCISCO JAVIER PRN Reason: Protocol Last Admin: 11/24/16 07:08 Dose: Not Given Aspirin (Ecotrin) 81 mg PO 0800 FRANCISCO JAVIER PRN Reason: Protocol Last Admin: 11/24/16 08:21 Dose: 81 mg Atorvastatin Calcium (Lipitor) 40 mg PO DIN FRANCISCO JAVIER PRN Reason: Protocol Last Admin: 11/23/16 17:48 Dose: 40 mg Benzonatate (Tessalon Perles) 100 mg PO TID FRANCISCO JAVIER PRN Reason: Protocol Last Admin: 11/23/16 17:51 Dose: 100 mg Bisacodyl (Dulcolax) 10 mg RC MWF FRANCISCO JAVIER PRN Reason: Protocol Donepezil HCl (Aricept) 10 mg PO HS FRANCISCO JAVIER PRN Reason: Protocol Last Admin: 11/23/16 21:28 Dose: 10 mg Doxycycline Hyclate (Doryx) 100 mg PO Q12 FRANCISCO JAVIER PRN Reason: Protocol Last Admin: 11/23/16 21:29 Dose: 100 mg Ergocalciferol (Drisdol 50,000 Intl Units Cap) 1 cap PO SAT FRANCISCO JAVIER PRN Reason: Protocol Folic Acid (Folic Acid) 1 mg PO DAILY FRANCISCO JAVIER PRN Reason: Protocol Last Admin: 11/23/16 10:52 Dose: 1 mg Meropenem 250 mg/ Sodium (Chloride) 100 mls @ 100 mls/hr IVPB Q12H FRANCISCO JAVIER PRN Reason: Protocol Last Admin: 11/24/16 06:25 Dose: 100 mls/hr Insulin Detemir (Levemir) 5 unit SC DAILY FRANCISCO JAVIER PRN Reason: Protocol Last Admin: 11/23/16 10:53 Dose: 5 unit Insulin Human Regular (Humulin R Low) 0 units SC ACHS FRANCISCO JAVIER PRN Reason: Protocol Last Admin: 11/24/16 06:32 Dose: Not Given Isosorbide Mononitrate (Imdur) 120 mg PO 0630 FRANCISCO JAVIER PRN Reason: Protocol Last Admin: 11/24/16 06:25 Dose: Not Given Latanoprost (Xalatan Opht) 0 ml OU HS FRANCISCO JAVIER PRN Reason: Protocol Last Admin: 11/23/16 21:30 Dose: 2.5 ml Levalbuterol HCl (Xopenex) 0.63 mg IH [id number] FRANCISCO JAVIER PRN Reason: Protocol Last Admin: 11/24/16 07:08 Dose: Not Given Losartan Potassium (Cozaar) 100 mg PO DAILY FRANCICSO JAVIER PRN Reason: Protocol Last Admin: 11/23/16 10:51 Dose: 100 mg Metoprolol Tartrate (Lopressor) 25 mg PO 0800,1800 FRANCISCO JAVIER PRN Reason: Protocol Last Admin: 11/24/16 08:23 Dose: 25 mg Pantoprazole Sodium (Protonix Ec Tab) 40 mg PO 0600 FRANCISCO JAVIER PRN Reason: Protocol Last Admin: 11/24/16 06:26 Dose: 40 mg Polyethylene Glycol (Miralax) 17 gm PO BID FRANCISCO JAVIER PRN Reason: Protocol Last Admin: 11/23/16 17:49 Dose: 17 gm Risperidone (Risperdal Tab) 0.25 mg PO BID FRANCISCO JAVIER PRN Reason: Protocol Last Admin: 11/23/16 17:50 Dose: 0.25 mg Tamsulosin HCl (Flomax) 0.4 mg PO 1830 FRANCISCO JAVIER PRN Reason: Protocol Last Admin: 11/23/16 17:51 Dose: 0.4 mg Vitamin B Complex/Vit C/Folic Acid (Nephro-Jaylin) 1 tab PO DAILY FRANCISCO JAVIER PRN Reason: Protocol Last Admin: 11/23/16 10:53 Dose: 1 tab - Constitutional Appears: Non-toxic, No Acute Distress - Head Exam Head Exam: NORMAL INSPECTION - ENT Exam ENT Exam: Mucous Membranes Moist - Neck Exam Neck Exam: absent: Meningismus - Respiratory Exam Respiratory Exam: Decreased Breath Sounds - Cardiovascular Exam Cardiovascular Exam: +S1, +S2 - GI/Abdominal Exam GI & Abdominal Exam: Soft. absent: Tenderness Assessment and Plan - Assessment and Plan (Free Text) Plan: Assessment sepsis due to HCAP, clinically improving dementia history of sepsis from healthcare-associated pneumonia on top of non-ST elevation [place] with acute congestive heart failure, clinically improved and S/P treatment history of GI bleeding ESRD on HD cornoary artery disease Cerebrovascular accident Gastric cancer Mitral valve prolapse Plan continue Doxycycline and Merrem (day 6) to complete a 7 day course
[2016-11-24] MEDS: Latanoprost 2.5 ml Opht Soln OU SCH (21:46)
--- NOTE | 2016-11-24 22:21 | PN ---
DATE: 11/24/2016 SUBJECTIVE: The patient is an 86-year-old male, currently being treated in transitional care unit for gait dysfunction, debilitation, patient recently treated for sepsis. Patient has a history of end-stage renal disease with hemodialysis which he is currently receiving. Patient's mental status is unchanged from previous exam yesterday. He is awake, generally alert, thoughts are slow, but coherent. He is oriented to x3, recent memory is slightly impaired. No hallucinations or paranoia or suicidal ideation. His affect is flat, however, constricted. Judgment somewhat impaired by slowness of thought processes, some impairment in recent memory. Patient spoke with nursing staff. The patient is following instructions and cooperating with care and physical therapy. CURRENT MEDICATIONS: Include acetylcysteine, Aricept, Cozaar, Doryx, Drisdol, Dulcolax, Ecotrin, Flomax, folate, Imdur, Levemir, Lipitor, Lopressor, meropenem, vitamin B complex, Protonix, Risperdal 0.25 mg b.i.d., Tessalon Perles, Xalatan ophthalmic ointment. PHYSICAL EXAMINATION: VITAL SIGNS:: Blood pressure is 155/75, pulse 74, respirations 20 per minute, afebrile and O2 saturation 95% on room air. IMPRESSION: Mild vascular dementia with recent behavioral disturbance, improving. Patient has a history of sepsis, he has a history of chronic obstructive pulmonary disease, coronary artery disease, glaucoma, insulin-dependent diabetes mellitus, hypertension and hyperparathyroidism. PLAN: Continue Risperdal 0.25 mg b.i.d. as patient has no ill effect and is showing improvement in his agitation and extreme nervous history of dementia. Hunter Kurtz MD
[2016-11-25] MEDS: Acetylcysteine 20% Inhal Soln (4ml) IH SCH ×3 (01:24→13:05)
[2016-11-25] MEDS: Levalbuterol 0.63 MG/3 ML Inhal Soln UD IH SCH ×4 (01:24→20:21)
--- NOTE | 2016-11-25 02:28 | PN ---
DATE: 11/24/2016 LOCATION: The patient is again see lying in the bed in room 320, bed 1. SUBJECTIVE: The patient is watching TV. The patient is alert, awake, oriented to person, place, and his name and my name. The patient is disoriented to year, date, and month. PHYSICAL EXAMINATION GENERAL: Text. VITAL SIGNS: T-max 97.5, pulse 61-75, blood pressure is 163/87, 137/74, 136/72, respirations 18-20, O2 sat 95-97%. HEENT: Head examination is normocephalic and atraumatic. HEENT examination shows pinkish pale conjunctivae. Anicteric sclerae. No oropharyngeal lesion. NECK: No neck rigidity. CHEST: Kyphosis. LUNGS: Shows occasional upper lung chaney anteriorly rhonchi. CARDIOVASCULAR: Shows S1, S2, regular rhythm. Questionable soft systolic murmur in the left sternal border and left second intercostal space. ABDOMEN: Soft and nontender. GENITALIA: Male. RECTAL: Deferred. EXTREMITIES: Shows positive left upper extremity AV fistula, positive thrill. Lower extremity shows no pitting edema, no calf tenderness, and no Homans' sign. VASCULAR: Palpable pulses. MUSCULOSKELETAL: Shows a body mass index of 24. NEUROLOGIC: Cranial nerves II through XII limited. Gait examination could not be tested as the patient is lying in the bed. PSYCHIATRIC: Positive for dementia. DIAGNOSES: 1. Deconditioning. 2. Gait dysfunction. 3. End-stage renal disease, hemodialysis dependent via the left upper extremity AV fistula three times a week. 4. Sepsis due to healthcare-associated pneumonia with high-grade fever. 5. Acute non-ST elevation myocardial infarction with elevated troponin. 6. History of gastrointestinal bleeding. 7. Coronary artery disease with coronary angioplasty. 8. Normocytic anemia with decreasing hemoglobin. 9. Status post packed red blood cell transfusion. 10. Altered mental status with episodic confusion and encephalopathy with acute exacerbation of dementia. 11. Insulin-requiring diabetes mellitus. 12. Hypertension. 13. Secondary hyperparathyroidism. 14. Recurrent recent non-ST elevation myocardial infarction. 15. Sepsis with tachycardia, leukocytosis, granulocytosis. 16. Dementia with behavioral disturbances. 17. Hypovitaminosis D. PLAN: At this time, the patient is to be continued on Transitional Care Unit with Cardiology followup, Infectious Disease, Nephrology, and for Psychiatry followup. CURRENT MEDICATIONS: 1. Mucomyst 20% 4 mL nebulizer every 6 hours mixed with Xopenex nebulizer 0.63 mg. 2. The patient is a Aricept 10 mg h.s. 3. Cozaar 100 mg daily. 4. Doxycycline 100 mg q.12 hours. 5. Drisdol 50,000 weekly. 6. Dulcolax suppository 110 mg Tuesday, Tuesday, and Tuesday. 7. Aspirin 81 mg daily. 8. Flomax 0.4 mg daily. 9. Folic acid 1 mg daily. 10. Regular insulin low dose sliding scale coverage a.c. and h.s. 11. Imdur 120 mg daily. 12. Levemir 5 units subcu daily. 13. Lipitor 40 mg daily. 14. Lopressor 25 mg twice a day. 15. Meropenem 250 mg IV q.12 hours. 16. MiraLax 17 g twice a day. 17. Nephro-Jaylin 1 tablet daily. 18. Protonix 40 mg daily. 19. Risperdal 0.25 mg twice a day. 20. Tessalon Perles 200 mg 3 times a day. 21. Tylenol 650 mg p.o. suppository q.6 hours p.r.n. for temperature greater than or equal to 99.5. 22. Xalatan eye drops. 23. Xopenex nebulizer 0.63 q.6 hours. The patient was seen by Psychiatry, Infectious Disease, Nephrology, and Cardiology. Psychiatry has stopped the p.r.n. Risperdal and has maintained the patient on Risperdal 0.25 mg twice a day. The patient is on dysphagia-modified consistency diet, out of bed ordered. Dictated and electronically signed, not read. Zeyad Nazario MD
[2016-11-25] MEDS: Pantoprazole 40 mg EC Tab PO SCH (06:16)
[2016-11-25] MEDS: Latanoprost 2.5 ml Opht Soln OU SCH ×2 (06:26→21:23)
[2016-11-25] MEDS: Insulin Reg-LOW-Coverage SC SCH ×4 (06:29→21:28)
[2016-11-25 08:04] LABS: BASO # 0.03 K/mm3 (0.0-2.0); BASO % 0.4 % (0.0-3.0); EOS # 0.2 (0.0-0.7); EOS % 2.2 % (1.5-5.0); GRAN # 5.08 (1.4-6.5); GRAN % 68.2 % (50.0-68.0); HEMATOCRIT 29.6 % (42.0-52.0); LYMPH # 1.4 (1.2-3.4); LYMPH % 18.3 % (22.0-35.0); MEAN CELL VOLUME 85.5 fl (80.0-105.0); MEAN CORPUSCULAR HGB CONC 32.8 g/dl (31.0-37.0); MEAN PLATELET VOLUME 11.3 fl (7.0-11.0); MONO # 0.8 (0.1-0.6); MONO % 10.9 % (1.0-6.0); RED CELL DISTRIBUTION WIDTH 16.3 % (11.5-14.5); WHITE BLOOD COUNT 7.4 10^3/ul (4.5-11.0)
[2016-11-25 08:16] LABS: ALB/GLOB RATIO 0.9 (1.1-1.8); BILIRUBIN,DIRECT 0.5 mg/dL (0.0-0.4); BILIRUBIN,TOTAL 0.5 mg/dL (0.2-1.3); CALCIUM 8.7 mg/dL (8.4-10.5); POTASSIUM 3.4 mmol/L (3.6-5.0); TOTAL PROTEIN 6.4 g/dL (5.8-8.3)
[2016-11-25] MEDS ORDERED: Potassium Chloride 20 mEq ER Tab PO STA (08:40)
[2016-11-25] MEDS: Insulin Detemir 100 units/ml Vial (Levemir) SC SCH (09:48)
[2016-11-25] MEDS: POLYETHYLENE GLYCOL 3350 17 GM/Dose PACKET PO SCH ×2 (09:49→17:14)
[2016-11-25] MEDS: Multivitamin Vitamin B Complex (Nephro-Vite) Tab PO SCH (09:50)
--- NOTE | 2016-11-25 12:07 | PN ---
DATE: SUBJECTIVE: The patient is currently seen sitting in a chair in the TCU. He appears to be entirely comfortable. He tolerated yesterday his dialysis without difficulty. Of note, his potassium was 3.4 yesterday and he did run on 2.0 K bath which was not increased to 3.0 K bath. MEDICATIONS: Medication list reviewed. The patient is currently on acetylcysteine, Aricept, Cozaar, doxycycline, vitamin D, Dulcolax, Ecotrin, Flomax, folic acid, insulin, Imdur, Lopressor, meropenem, MiraLax, Nephro-Jaylin, Protonix, Risperdal, Tessalon Perles, p.r.n. Tylenol, Xalatan and Xopenex. OBJECTIVE: VITAL SIGNS: Blood pressure presently with 148/77, temperature is 98.1, and respiratory rate is 20 with pulse of 66. HEENT: Normocephalic and atraumatic. Conjunctiva are pale. Sclera nonicteric. NECK: Supple. No neck vein distention. CHEST: Clear to auscultation and percussion. No rales, no rhonchi, and no wheezing. Slight decreased breath sounds at the bases unchanged from previous exam. CARDIOVASCULAR: Shows regular rate and rhythm with a soft systolic murmur in the left lower sternal border. No S3, no S4, and no rub. ABDOMEN: Soft. Nontender. No rebound. No guarding. Bowel sounds are normal. No masses are appreciated. No organomegaly noted. EXTREMITIES: Left upper extremity AV fistula, positive thrill and positive bruit. No lower extremity edema. LABORATORY DATA AND IMAGING: Labs from yesterday, white blood cell count of 7.4, and hemoglobin of 9.7 with a platelet count of 222,000. Chemistries showed sodium of 138, potassium of 3.4, and BUN of 30 with a creatinine of 4.7. Chloride and carbon dioxide are normal. Glucose is 113. Calcium is 8.7. Liver enzymes are normal. Albumin is 3.0 and stable. ASSESSMENT: 1. End-stage renal disease. The patient will continue Tuesday, Tuesday and Tuesday dialysis. His next dialysis is scheduled for tomorrow on 11/26/2016. 2. Status post altered mental status with possible sepsis related to healthcare acquired pneumonia. The patient has been seen by infectious disease and will complete a full course of antibiotic therapy. He is both on oral and intravenous antibiotic therapy. 3. History of non-insulin dependent diabetes mellitus. The patient's glucose control is acceptable on insulin sliding scale. 4. History of arteriosclerotic heart disease, status post percutaneous transluminal coronary angioplasty with bare metal stent placement earlier this year. He is status post recent hospitalization for a non-ST elevation myocardial infarction. In light of his comorbidities, the patient is being followed by cardiology and is being treated medically. 5. History of dementia. The patient appears to be stable on present medical therapy. 6. History of hypertension. Blood pressure control is acceptable on current medications. 7. History of secondary hyperparathyroidism. The patient's last phosphorus level was low. He will remain off binder therapy at this point in time. PLAN: 1. Discussed with renal staff. It is imperative that pre-dialysis labs were checked and if any alterations need to be made in a dialysis, a prescription needs to be done and initiated by the dialysis nurse. 2. Complete course of antibiotic therapy. 3. We will obtain phosphorus level with pre-dialysis labs. 4. Continue rehabilitation in the TCU. William Erickson MD
--- NOTE | 2016-11-25 12:44 | CP.PCM.PN ---
Subjective - Date & Time of Evaluation Date of Evaluation: 11/25/16 Time of Evaluation: 10:15 - Subjective Subjective: Internal medicine H & P for Dr. Felipe Kendrick, PGY-1 Pt S & E at bedside this AM. Pt w/o complaints overnight, sleeping ok, eating ok. Denies N/V/F/C, SOB, CP, ab pain, LE pain. No acute events overnight as per nursing. Objective - Vital Signs/Intake and Output Vital Signs (last 24 hours): Temp Pulse Resp BP Pulse Ox 97.4 F L 67 18 143/74 96 11/25/16 11:51 11/25/16 11:51 11/25/16 11:51 11/25/16 11:51 11/25/16 11:51 - Medications Medications: Current Medications Acetaminophen (Tylenol 325mg Tab) 650 mg PO Q6H PRN; Protocol PRN Reason: Temperature Acetaminophen (Tylenol 650 Mg Supp) 650 mg RC Q6H PRN; Protocol PRN Reason: Temperature Acetylcysteine (Acetylcysteine 20%) 4 ml IH [id number] FRANCISCO JAVIER PRN Reason: Protocol Last Admin: 11/25/16 07:37 Dose: Not Given Aspirin (Ecotrin) 81 mg PO 0800 FRANCISCO JAVIER PRN Reason: Protocol Last Admin: 11/25/16 08:12 Dose: 81 mg Atorvastatin Calcium (Lipitor) 40 mg PO DIN FRANCISCO JAVIER PRN Reason: Protocol Last Admin: 11/24/16 19:05 Dose: 40 mg Benzonatate (Tessalon Perles) 100 mg PO TID FRANCISCO JAVIER PRN Reason: Protocol Last Admin: 11/25/16 09:51 Dose: 100 mg Bisacodyl (Dulcolax) 10 mg RC MWF FRANCISCO JAVIER PRN Reason: Protocol Last Admin: 11/24/16 12:44 Dose: Not Given Donepezil HCl (Aricept) 10 mg PO HS FRANCISCO JAVIER PRN Reason: Protocol Last Admin: 11/24/16 21:43 Dose: 10 mg Doxycycline Hyclate (Doryx) 100 mg PO Q12 FRANCISCO JAVIER PRN Reason: Protocol Last Admin: 11/25/16 09:45 Dose: 100 mg Ergocalciferol (Drisdol 50,000 Intl Units Cap) 1 cap PO SAT FRANCISCO JAVIER PRN Reason: Protocol Folic Acid (Folic Acid) 1 mg PO DAILY FRANCISCO JAVIER PRN Reason: Protocol Last Admin: 11/25/16 09:30 Dose: 1 mg Meropenem 250 mg/ Sodium (Chloride) 100 mls @ 100 mls/hr IVPB Q12H FRANCISCO JAVIER PRN Reason: Protocol Last Admin: 11/25/16 06:16 Dose: 100 mls/hr Insulin Detemir (Levemir) 5 unit SC DAILY FRANCISCO JAVIER PRN Reason: Protocol Last Admin: 11/25/16 09:48 Dose: 5 unit Insulin Human Regular (Humulin R Low) 0 units SC ACHS FRANCISCO JAVIER PRN Reason: Protocol Last Admin: 11/25/16 12:01 Dose: 2 units Isosorbide Mononitrate (Imdur) 120 mg PO 0630 FRANCISCO JAVIER PRN Reason: Protocol Last Admin: 11/25/16 06:16 Dose: 120 mg Latanoprost (Xalatan Opht) 0 ml OU HS FRANCISCO JAVIER PRN Reason: Protocol Last Admin: 11/25/16 06:26 Dose: Not Given Levalbuterol HCl (Xopenex) 0.63 mg IH [id number] FRANCISCO JAVIER PRN Reason: Protocol Last Admin: 11/25/16 07:37 Dose: Not Given Losartan Potassium (Cozaar) 100 mg PO DAILY FRANCISCO JAVIER PRN Reason: Protocol Last Admin: 11/25/16 09:30 Dose: 100 mg Metoprolol Tartrate (Lopressor) 25 mg PO 0800,1800 FRANCISCO JAVIER PRN Reason: Protocol Last Admin: 11/25/16 08:13 Dose: 25 mg Pantoprazole Sodium (Protonix Ec Tab) 40 mg PO 0600 FRANCISCO JAVIER PRN Reason: Protocol Last Admin: 11/25/16 06:16 Dose: 40 mg Polyethylene Glycol (Miralax) 17 gm PO BID FRANCISCO JAVIER PRN Reason: Protocol Last Admin: 11/25/16 09:49 Dose: 17 gm Risperidone (Risperdal Tab) 0.25 mg PO BID FRANCISCO JAVIER PRN Reason: Protocol Last Admin: 11/25/16 09:51 Dose: 0.25 mg Tamsulosin HCl (Flomax) 0.4 mg PO 1830 FRANCISCO JAVIER PRN Reason: Protocol Last Admin: 11/24/16 19:05 Dose: 0.4 mg Vitamin B Complex/Vit C/Folic Acid (Nephro-Jaylin) 1 tab PO DAILY FRANCISCO JAVIER PRN Reason: Protocol Last Admin: 11/25/16 09:50 Dose: 1 tab - Labs Labs: 11/25/16 07:30 11/25/16 07:30 - Constitutional Appears: Non-toxic, No Acute Distress - Head Exam Head Exam: ATRAUMATIC, NORMAL INSPECTION, NORMOCEPHALIC - Eye Exam Eye Exam: EOMI, Normal appearance - ENT Exam ENT Exam: Mucous Membranes Moist, Normal Exam - Neck Exam Neck Exam: Full ROM, Normal Inspection - Respiratory Exam Respiratory Exam: Clear to Ausculation Bilateral, NORMAL BREATHING PATTERN - Cardiovascular Exam Cardiovascular Exam: REGULAR RHYTHM, +S1, +S2 - GI/Abdominal Exam GI & Abdominal Exam: Soft, Normal Bowel Sounds. absent: Distended, Tenderness - Extremities Exam Extremities Exam: Normal Inspection. absent: Pedal Edema - Back Exam Back Exam: NORMAL INSPECTION - Neurological Exam Neurological Exam: Alert, Awake, CN II-XII Intact, Oriented x3 - Psychiatric Exam Psychiatric exam: Normal Affect, Normal Mood - Skin Skin Exam: Dry, Intact, Normal Color, Warm Assessment and Plan - Assessment and Plan (Free Text) Assessment: 85Y AA M with PMH CVA, ESRD on HD (MWF), dementia, CAD s/p stent, DM, MVP, GI bleed, gastric cancer who was admitted to TCU for deconditioning s/p hospitalization, stable overnight, working with PT Plan: Dementia with agitation AOx3 today Baseline AOx2 Aricept Risperidone PRN Monitor Psych following Fever- resolved Afebrile over 48H No leukocytosis Tylenol PO Merrem ID following Chronic constipation Dulcolax Miralax Linzess Monitor Anemia/Hx GI bleed Avoid NSAIDS, anticoagulants Contraindications to VTE ppx Recent NSTEMI ASA High risk for GI bleed Contraindications to other anticoagulation Lipitor Cardio following ESRD on HD HD (MWF) For HD today Hypokalemia- K 3.4- to be corrected in HD Renagel Nephro-Vit Folic Acid Vit D Nephro following DM ISS Levemir Accuchecks HTN Lopressor Cozaar Imdur Bystolic Monitor COPD Tessalon Perles Xopenex Mucomyst Chest PT Hx Glaucoma Latanoprost Hx of BPH Flomax GI/DVT ppx TEDs SCDs Protonix Contraindications to VTE ppx 2/2 high risk of GI bleed Dispo Dysphagia/HHD/renal on HD diet Supplements PT/OT OOBTC Activity as nima DW attending Mireille, PGY-1
--- NOTE | 2016-11-25 13:42 | PN ---
DATE: 11/25/2016 CARDIOLOGY FOLLOWUP SUBJECTIVE: The patient is in the TCU, sitting in a chair, awake, alert without symptoms. PHYSICAL EXAMINATION: VITAL SIGNS: Blood pressure 148/77, heart rate in the 60s. NECK: Negative JVD. LUNGS: Without rales. HEART: Reveals S1 and S2. EXTREMITIES: Without edema. LABORATORY DATA: Hemoglobin is 9.7. Chemistries: BUN and creatinine is 30 and 4.7. The glucose is 113. IMPRESSION: 1. Remote non-ST segment elevation myocardial infarction. 2. End-stage renal disease. 3. Coronary artery disease. 4. Dementia. 5. Stable angina. 6. Weakness. PLAN: Given these findings, the patient is doing well with her with physical therapy. He is participating well and has no symptoms working with PT. Jamin Dewey MD
--- NOTE | 2016-11-25 15:15 | CP.PCM.PN ---
Subjective - Date & Time of Evaluation Date of Evaluation: 11/25/16 Time of Evaluation: 10:35 - Subjective Subjective: Comfortably doing his physical rehab, no SOB at rest, not in distress, no fevers. Objective - Vital Signs/Intake and Output Vital Signs (last 24 hours): Temp Pulse Resp BP Pulse Ox 98.1 F 66 20 148/77 95 11/24/16 10:40 11/25/16 08:13 11/24/16 10:40 11/25/16 08:13 11/23/16 16:58 - Medications Medications: Current Medications Acetaminophen (Tylenol 325mg Tab) 650 mg PO Q6H PRN; Protocol PRN Reason: Temperature Acetaminophen (Tylenol 650 Mg Supp) 650 mg RC Q6H PRN; Protocol PRN Reason: Temperature Acetylcysteine (Acetylcysteine 20%) 4 ml IH [id number] FRANCISCO JAVIER PRN Reason: Protocol Last Admin: 11/25/16 07:37 Dose: Not Given Aspirin (Ecotrin) 81 mg PO 0800 FRANCISCO JAVIER PRN Reason: Protocol Last Admin: 11/25/16 08:12 Dose: 81 mg Atorvastatin Calcium (Lipitor) 40 mg PO DIN FRANCISCO JAVIER PRN Reason: Protocol Last Admin: 11/24/16 19:05 Dose: 40 mg Benzonatate (Tessalon Perles) 100 mg PO TID FRANCISCO JAVIER PRN Reason: Protocol Last Admin: 11/24/16 19:06 Dose: 100 mg Bisacodyl (Dulcolax) 10 mg RC MWF FRANCISCO JAVIER PRN Reason: Protocol Last Admin: 11/24/16 12:44 Dose: Not Given Donepezil HCl (Aricept) 10 mg PO HS FRANCISCO JAVIER PRN Reason: Protocol Last Admin: 11/24/16 21:43 Dose: 10 mg Doxycycline Hyclate (Doryx) 100 mg PO Q12 FRANCISCO JAVIER PRN Reason: Protocol Last Admin: 11/24/16 21:43 Dose: 100 mg Ergocalciferol (Drisdol 50,000 Intl Units Cap) 1 cap PO SAT FRANCISCO JAVIER PRN Reason: Protocol Folic Acid (Folic Acid) 1 mg PO DAILY FRANCISCO JAVIER PRN Reason: Protocol Last Admin: 11/24/16 09:49 Dose: 1 mg Meropenem 250 mg/ Sodium (Chloride) 100 mls @ 100 mls/hr IVPB Q12H FRANCISCO JAVIER PRN Reason: Protocol Last Admin: 11/25/16 06:16 Dose: 100 mls/hr Insulin Detemir (Levemir) 5 unit SC DAILY FRANCISCO JAVIER PRN Reason: Protocol Last Admin: 11/24/16 09:50 Dose: 5 unit Insulin Human Regular (Humulin R Low) 0 units SC ACHS FRANCISCO JAVIER PRN Reason: Protocol Last Admin: 11/25/16 06:29 Dose: Not Given Isosorbide Mononitrate (Imdur) 120 mg PO 0630 FRANCISCO JAVIER PRN Reason: Protocol Last Admin: 11/25/16 06:16 Dose: 120 mg Latanoprost (Xalatan Opht) 0 ml OU HS FRANCISCO JAVIER PRN Reason: Protocol Last Admin: 11/25/16 06:26 Dose: Not Given Levalbuterol HCl (Xopenex) 0.63 mg IH [id number] FRANCISCO JAVIER PRN Reason: Protocol Last Admin: 11/25/16 07:37 Dose: Not Given Losartan Potassium (Cozaar) 100 mg PO DAILY FRANCISCO JAVIER PRN Reason: Protocol Last Admin: 11/24/16 09:51 Dose: 100 mg Metoprolol Tartrate (Lopressor) 25 mg PO 0800,1800 FRANCISCO JAVIER PRN Reason: Protocol Last Admin: 11/25/16 08:13 Dose: 25 mg Pantoprazole Sodium (Protonix Ec Tab) 40 mg PO 0600 FRANCISCO JAVIER PRN Reason: Protocol Last Admin: 11/25/16 06:16 Dose: 40 mg Polyethylene Glycol (Miralax) 17 gm PO BID FRANCISCO JAVIER PRN Reason: Protocol Last Admin: 11/24/16 19:07 Dose: Not Given Risperidone (Risperdal Tab) 0.25 mg PO BID FRANCISCO JAVIER PRN Reason: Protocol Last Admin: 11/24/16 19:07 Dose: 0.25 mg Tamsulosin HCl (Flomax) 0.4 mg PO 1830 FRANCISCO JAVIER PRN Reason: Protocol Last Admin: 11/24/16 19:05 Dose: 0.4 mg Vitamin B Complex/Vit C/Folic Acid (Nephro-Jaylin) 1 tab PO DAILY FRANCISCO JAVIER PRN Reason: Protocol Last Admin: 11/24/16 09:49 Dose: 1 tab - Labs Labs: 11/25/16 07:30 11/25/16 07:30 - Constitutional Appears: Non-toxic, No Acute Distress - Head Exam Head Exam: NORMAL INSPECTION - ENT Exam ENT Exam: Mucous Membranes Moist - Neck Exam Neck Exam: absent: Meningismus - Respiratory Exam Respiratory Exam: Decreased Breath Sounds - Cardiovascular Exam Cardiovascular Exam: +S1, +S2 - GI/Abdominal Exam GI & Abdominal Exam: Soft. absent: Tenderness Assessment and Plan - Assessment and Plan (Free Text) Plan: Assessment sepsis due to HCAP, clinically improving dementia history of sepsis from healthcare-associated pneumonia on top of non-ST elevation [place] with acute congestive heart failure, clinically improved and S/P treatment history of GI bleeding ESRD on HD cornoary artery disease Cerebrovascular accident Gastric cancer Mitral valve prolapse Plan on Doxycycline and Merrem (day 7) to complete a 7 day course - will d/c after today
[2016-11-26] MEDS: Pantoprazole 40 mg EC Tab PO SCH (05:39)
[2016-11-26] MEDS: Acetylcysteine 20% Inhal Soln (4ml) IH SCH ×3 (07:27→19:28)
[2016-11-26] MEDS: Levalbuterol 0.63 MG/3 ML Inhal Soln UD IH SCH ×3 (07:27→19:29)
--- NOTE | 2016-11-26 08:07 | PN ---
DATE: 11/25/2016 SUBJECTIVE: The patient was seen out of bed to chair today. The patient was examined and seen by the emergency medical technician basic. OBJECTIVE: VITAL SIGNS: Afebrile. The patient's pulse 66-75, blood pressure 148/77,163/87,155/77, 130/79, respirations 20, and O2 sat 95-97. HEENT: Head is normocephalic and atraumatic. HEENT examination shows pinkish pale conjunctivae. Anicteric sclerae. No oropharyngeal lesion. NECK: No neck rigidity. CHEST: Kyphosis. LUNGS: Shows no rales, crackles, or wheezing. CARDIOVASCULAR: Shows S1 and S2, regular rhythm. Questionable soft systolic murmur, right second intercostal space left sternal border, left second intercostal space. ABDOMEN: Soft. Positive bowel sounds. Nontender. GENITALIA: Male. RECTAL: Deferred. EXTREMITIES: Positive left upper extremity AV fistula, positive thrill. Lower extremity shows no pitting, no calf, and no Homans signs. The patient appear to be weak when attempted to stand from the sitting position from the chair. MUSCULOSKELETAL: Shows a body mass index of 34. DIAGNOSTIC DATA: WBC 7.4, hemoglobin/hematocrit 9.7 and 29.6, and platelet 222. Chemistry is significant for potassium of 3.4, BUN 30, and creatinine 4.7. Fingerstick blood sugar 88, 171 152, 224, 128, and 113. LFTs are normal. IMPRESSION: 1. Deconditioning. 2. Gait dysfunction. 3. Anemia. 4. Status post packed red blood cell transfusion. 5. End-stage renal disease, hemodialysis dependent. 6. Hypertension. 7. Insulin-requiring diabetes mellitus. 8. Normocytic anemia. 9. Granulocytosis. 10. Status post packed red blood cell transfusion. 11. Sepsis secondary to healthcare-associated pneumonia, improving. 12. Dementia. 13. Episodic confusion and behavioral disorder. 14. Vascular dementia with behavioral disturbances. 15. Secondary hyperparathyroidism. PLAN: At this time, the patient is to continue on transitional care unit with physical therapy, occupational therapy, ambulation therapy, and gait training. The patient is currently being followed by cardiology, infectious disease, nephrology, and psychiatry. CURRENT MEDICATIONS: Mucomyst nebulizer 20% 4 mL q.6 hours mixed with Xopenex nebulizer 0.63 mg q.6 hours, Aricept 10 mg at bedtime, Cozaar 100 mg daily, doxycycline 100 mg twice a day, Drisdol 50,000 weekly, Dulcolax 10 mg suppository Tuesday, Tuesday, and Tuesday, Ecotrin 81 mg daily, Flomax 0.4 mg daily, folic acid 1 mg daily, regular insulin sliding scale a.c. and at bedtime, Imdur 120 mg daily, the patient was given a dose of K-Dur 20 which was discontinued, Levemir 5 units subcutaneously, Lipitor 40 mg daily, Lopressor 25 twice a day, meropenem 250 IV q.12 hours, MiraLax 17 g twice a day, Nephro-Jaylin 1 tablet daily, Protonix 40 mg daily, Risperdal 0.25 twice a day, Tessalon Perles 100 mg three times a day, Tylenol 650 mg suppository p.o., and Xalatan eyedrops. The patient is on dysphagia modified consistency diet. The patient has been seen by physical therapist and occupational therapist. The patient has been undergoing physical therapy and physical therapy evaluation and recommendation noted. The patient's further management on the TCU will be as per the recommendations by the infectious disease, cardiology, nephrology, and psychiatry. Dictated and electronically signed, not read. Zeyad Nazario MD
[2016-11-26] MEDS: Insulin Reg-LOW-Coverage SC SCH ×4 (08:45→21:32)
[2016-11-26] MEDS: Insulin Detemir 100 units/ml Vial (Levemir) SC SCH (09:04)
[2016-11-26] MEDS: Multivitamin Vitamin B Complex (Nephro-Vite) Tab PO SCH (09:08)
[2016-11-26] MEDS: POLYETHYLENE GLYCOL 3350 17 GM/Dose PACKET PO SCH ×2 (09:08→18:10)
--- NOTE | 2016-11-26 09:41 | PN ---
SUBJECTIVE: This patient is in the Transitional Care Unit. The patient is admitted for continue antibiotic treatment, treatment of respiratory distress and the patient is seen this morning, he is awake, but confused. He has history of dementia. PHYSICAL EXAMINATION: VITAL SIGNS: The pulse is 69, blood pressure 120/65, the patient's respirations are 20, O2 saturation 92% on room air. LUNGS: Clear. HEART: Normal sinus rhythm. ABDOMEN: Soft. Liver and spleen are not palpable. CENTRAL NERVOUS SYSTEM: The patient is confused, has history of dementia. He is on chronic renal failure treatment dialysis 3 times a week. MEDICATIONS: The patient is on medicine for prostatic enlargement. The patient gets meropenem for infection. The patient has respiratory treatment for chronic pulmonary disease. The patient is on losartan for hypertension, Aricept for dementia. The patient is on insulin coverage for diabetes. PLAN: The patient's clinical condition is stable today. We will continue current management. He will get physical therapy rehabilitation and continued treatment for antibiotic management and infection. Vijay Anton MD [facility]
--- NOTE | 2016-11-26 14:14 | PN ---
DATE: 11/26/2016 SUBJECTIVE: The patient is comfortable without shortness of breath. PHYSICAL EXAMINATION VITAL SIGNS: Blood pressure of 149/79 and heart rate in the 70s. NECK: Negative JVD. LUNGS: Without rales. HEART: Reveals S1 and S2. EXTREMITIES: Without edema. LABORATORY DATA: No laboratories are done today. IMPRESSION: 1. Stable angina. 2. Coronary artery disease. 3. History of non-ST segment elevation myocardial infarction. 4. History of percutaneous transluminal coronary angioplasty and stent. 5. Dementia. 6. Weakness. PLAN: Given these findings, the patient is doing well in the CCU with physical therapy. Jamin Dewey MD
--- NOTE | 2016-11-26 15:03 | PN ---
SUBJECTIVE: The patient is currently seen completing dialysis. He is a resident of the TCU. He is having 1500 mL of fluid removed. He is tolerating dialysis well with a blood pressure of 132/73. MEDICATIONS: Medication list reviewed. The patient is currently on acetylcysteine, Aricept, losartan, vitamin D, Dulcolax, Ecotrin, Flomax, folic acid, insulin, Lipitor, Lopressor, MiraLax, Nephro-Jaylin, Protonix, Risperdal, Tessalon Perles, p.r.n. Tylenol, Xalatan, and Xopenex. OBJECTIVE: VITAL SIGNS: Blood pressure on dialysis presently is 132/73 with a heart rate of 72. Temperature 97 degrees, respiratory rate is 16. HEENT: Normocephalic and atraumatic. Conjunctiva are pale. Sclera are nonicteric. NECK: Supple. No neck vein distention. CHEST: Clear to auscultation and percussion. No rales, no rhonchi, no wheezing. Slight decreased breath sounds at the bases. CARDIOVASCULAR: Shows regular rate and rhythm with a soft systolic murmur in the left lower sternal border. No S3, no S4, no rub. ABDOMEN: Soft. Bowel sounds normal. No masses. No organomegaly noted. EXTREMITIES: Show cannulated left upper extremity AV fistula with blood flow rate of 400 mL. No lower extremity edema. LABORATORY DATA AND IMAGING: Predialysis labs are pending. CBC from today shows a white blood cell count of 7.5 with a hemoglobin of 9.6 and platelet count of 231,000. Chemistries show a sodium of 138, potassium of 3.8, chloride 101, CO2 23 with a BUN of 47 and creatinine of 6.6. Calcium is 8.7 with phosphorus of 3.1, magnesium level is 1.9. ASSESSMENT: 1. End-stage renal disease. The patient will continue Tuesday, Tuesday and Tuesday dialysis. Next dialysis is scheduled for . 2. Status post altered mental status possible secondary to sepsis related to a healthcare acquired pneumonia. The patient is being followed by infectious disease. The patient has completed a course of antibiotic therapy. 3. History of non-insulin dependent diabetes mellitus. The patient's sugar control is acceptable on insulin sliding scale. 4. History of arteriosclerotic heart disease, status post percutaneous transluminal coronary angioplasty with a bare metal stent earlier this year. Recent hospitalization in the summer of 2016 for a non-ST elevation myocardial infarction. The patient is being treated medically. He is being followed by cardiology. 5. History of dementia. The patient appears to be stable on present medication. 6. History of hypertension. Blood pressure control is acceptable on present medication. 7. History of secondary hyperparathyroidism. The patient's phosphorus level is 3.1. Binder therapy is on hold. PLAN: 1. Continue rehabilitation in the TCU. 2. The patient appears to be making progress and appears to be completely lucid. His mental status is completely back to baseline. Perhaps the patient would be able to return home; that is his desire. 3. Continue three times a week dialysis as scheduled. William Erickson MD
[2016-11-26] MEDS: Latanoprost 2.5 ml Opht Soln OU SCH (21:34)
--- NOTE | 2016-11-26 22:48 | PN ---
DATE: 11/26/2016 SUBJECTIVE: The patient seen earlier this morning in room 320. No fevers and no chills. PHYSICAL EXAMINATION VITAL SIGNS: Temperature is 98, blood pressure is 119/60, respiratory rate of 16. HEENT: Unremarkable. NECK: Supple. HEART: Normal S1, S2. LUNGS: Decreased breath sounds. ABDOMEN: Soft and nontender. LABORATORY DATA: Reveals a white count of 7.4, hemoglobin of 9, platelets of 222. BUN of 30 and creatinine of 4.7. ASSESSMENT AND PLAN: This is an 86-year-old with sepsis due to HCAP, clinically improving, dementia, history of sepsis, healthcare-associated pneumonia on top of a non-ST elevation myocardial infarction, acute congestive heart failure, and status post treatment, and the patient has history of GI bleed, and the patient with end-stage renal disease, on hemodialysis, coronary artery disease, cerebrovascular accident, gastric cancer, mitral valve prolapse, and had completed 7 days of doxycycline and meropenem. We would discontinue the antibiotics, and yesterday was the 7th day. Dr. Nazario's note is appreciated from yesterday. No further antibiotics needed at this time. Magdy Diego MD
--- NOTE | 2016-11-26 23:43 | PN ---
SUBJECTIVE: The patient is an 86-year-old male currently being treated in the transitional care unit by the antibiotics following sepsis infection. The patient has multiple other medical problems including dementia and was having severe behavioral disturbance on the medical service prior. Currently, his mental status is improved significantly. He is oriented x3 at this point. He speaks slowly but coherently. His recent intermediate memory is still somewhat impaired. However, he is cooperating with nursing staff. His mood is euthymic. He has no evidence of agitation or insomnia at night. He is not refusing any test or other treatment. The patient has no hallucinations or paranoia. Currently, he is being treated with Risperdal 0.25 mg b.i.d. without any adverse effect. Other meds include acetylcysteine, Aricept, Cozaar, Dulcolax, Drisdol, Ecotrin, folic acid, Imdur, Levemir, Lipitor, Nephro-Jaylin, benzonatate and also Xalatan ophthalmic ointment for glaucoma. LABORATORY DATA: White count is 7400, hemoglobin 9.7, platelet count 222,000. His most recent metabolic profile from yesterday included sodium 138, potassium 3.4, chloride 100, CO2 26, anion gap 15, BUN 30, creatinine 4.2. Most recent blood sugars 187. Rest of profile is overall within normal range. REVIEW OF SYSTEMS: He has some weakness on his legs, but no other prominent symptoms in 12-point review of systems. PHYSICAL EXAMINATION: VITAL SIGNS: Blood pressure 149/75, pulse 72, afebrile, respirations 16 per minute. IMPRESSION: He has a history of vascular dementia with recent behavioral disturbance, not now. He has history of end-stage renal disease with hemodialysis, history of coronary artery disease with recent non-ST wave myocardial infarction. He has a history of stable angina and has history of percutaneous transluminal coronary angioplasty and stents and chronic obstructive pulmonary disease. The patient is progressing well. I would continue Risperdal; having no adverse effects and seems to help tremendously his mental status. We will also continue Aricept. We will continue to monitor mental status. Hunter Kurtz MD [facility] # [id number]
[2016-11-27] MEDS: Levalbuterol 0.63 MG/3 ML Inhal Soln UD IH SCH ×4 (01:15→21:03)
[2016-11-27] MEDS: Acetylcysteine 20% Inhal Soln (4ml) IH SCH ×4 (01:15→21:03)
[2016-11-27] MEDS: Pantoprazole 40 mg EC Tab PO SCH (05:50)
[2016-11-27] MEDS: Insulin Reg-LOW-Coverage SC SCH ×5 (07:57→22:33)
--- NOTE | 2016-11-27 08:39 | PN ---
SUBJECTIVE: The patient is currently seen lying comfortable in the group reservations coordinator hours in the TCU. He had an uneventful dialysis yesterday with removal of 1.5 liters of fluid. MEDICATIONS: Medication list reviewed. The patient is currently on acetylcysteine, Aricept, losartan, vitamin D, Dulcolax, Ecotrin, Flomax, folic acid, insulin, Imdur, Lipitor, Lopressor, MiraLax, Nephro-Jaylin, Protonix, Risperdal, Tessalon Perles, Tylenol p.r.n., Xalatan, and Xopenex. OBJECTIVE: VITAL SIGNS: Blood pressure 159/79, temperature 97.5, respiratory rate 20 with a pulse of 86. HEENT: Shows him to be normocephalic and atraumatic. Conjunctiva are pale. Sclera are nonicteric. NECK: Supple. No neck vein distention. CHEST: Clear to auscultation and percussion. No rales, no rhonchi or wheezing. Slight decreased breath sounds at the bases. CARDIOVASCULAR: Shows a regular rate and rhythm with a soft systolic murmur in the left lower sternal border. No S3, no S4, no rub. ABDOMEN: Soft. Bowel sounds are normal. No masses. No organomegaly noted. EXTREMITIES: Show a left upper extremity AV fistula; positive thrill; positive bruit. No lower extremity edema. LABORATORY DATA AND IMAGING: Labs done were predialysis labs from yesterday. CBC; white blood cell count 7.5, hemoglobin 9.6 with a platelet count of 231,000. Chemistries showed normal electrolytes. BUN 47 with a creatinine of 6.6. Calcium, phosphorus, magnesium levels are normal. ASSESSMENT: 1. End-stage renal disease. The patient will continue Tuesday, Tuesday and Tuesday dialysis. Next dialysis is scheduled for . 2. Status post altered mental status, possibly secondary to sepsis, secondary to healthcare acquired pneumonia. The patient was seen by infectious disease and has completed a course of antibiotic therapy. 3. History of non-insulin dependent diabetes mellitus, on insulin. The patient's glucose control is acceptable. 4. History of arteriosclerotic heart disease, status post percutaneous transluminal coronary angioplasty with a bare metal stent placed earlier this year. Recent hospitalization in October for a non-ST elevation myocardial infarction. 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 5. History of dementia. The patient appears to be stable on current medication. 6. History of hypertension. Blood pressure control is acceptable on current medication. 7. History of secondary hyperparathyroidism. The patient's phosphorus level is remain in the normal range. He is presently not taking binders. PLAN: 1. Continue rehabilitation in the TCU. 2. Continue three times a week dialysis. 3. Hoping that the patient will be able to be discharge back to home post his TCU stay. William Erickson MD
[2016-11-27] MEDS ORDERED: Ergocalciferol 50,000 Intl Units Cap PO SCH (10:00)
[2016-11-27] MEDS: Insulin Detemir 100 units/ml Vial (Levemir) SC SCH (10:23)
[2016-11-27] MEDS: Multivitamin Vitamin B Complex (Nephro-Vite) Tab PO SCH (10:25)
[2016-11-27] MEDS: POLYETHYLENE GLYCOL 3350 17 GM/Dose PACKET PO SCH ×2 (10:25→17:59)
--- NOTE | 2016-11-27 13:09 | PN ---
SUBJECTIVE: This patient is in the transitional care unit. He is getting antibiotic treatment rehabilitation. The patient also goes in dialysis for chronic renal failure. The patient is an 86-year-old male, he has long history of diabetes, hypertension, renal failure, dementia. The patient also has history of hyperlipidemia, depression and chronic respiratory insufficiency with chronic obstructive lung disease. The patient is seen this morning. He is comfortably eating his breakfast. PHYSICAL EXAMINATION: VITAL SIGNS: The patient's pulse is 86, blood pressure 159/79, respirations are 20, O2 sat 97% on room air. His temperature 97.5. LUNGS: Clinically clear. HEART: Normal sinus rhythm. ABDOMEN: Soft. Liver and spleen not palpable. No tenderness. 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 He had no focal deficits excepting for general weakness. The patient gets physical therapy. MEDICATIONS: The patient's medication consists of respiratory treatment with Acetal and Mucomyst. The patient gets Aricept, Losartan, Dulcolax, aspirin, Flomax, folic acid, insulin coverage for diabetes, Lipitor, metoprolol, MiraLax, vitamin B complex, pantoprazole, Risperdal. LABORATORY DATA: The patient's lab work, he is on renal dialysis. His hemoglobin 9.7. His chemistry blood sugar 107. His BUN and creatinine abnormal because of the patient is on chronic renal dialysis. His condition is clinically stable. Now, we will continue current management. He will continue physical therapy. Vijay Anton MD MTDD
--- NOTE | 2016-11-27 21:21 | PN ---
DATE: 11/27/2016 SUBJECTIVE: The patient is in bed, in no acute distress. Nontoxic. No fevers. PHYSICAL EXAMINATION VITAL SIGNS: Temperature is 98, blood pressure is 150/70, and respiratory rate 20. HEENT: Unremarkable. NECK: Supple. LUNGS: Decreased breath sounds. HEART: Normal S1 and S2. ABDOMEN: Soft and nontender. LABORATORY DATA: Reveals a white count of 7.4, hemoglobin of 9, platelets of 222. Chemistry reveals a BUN is noted and creatinine is 4.7. Microbiology is noted. ASSESSMENT AND PLAN: This is an 86-year-old male who was seen earlier today in room 320, who was admitted to acute care with sepsis and healthcare-associated pneumonia, clinically improving dementia. The patient has had a history of sepsis and healthcare-associated pneumonia on top of a non-ST elevation myocardial infarction, acute congestive heart failure, and status post treatment, and history of GI bleed, and end-stage renal disease, on hemodialysis, coronary artery disease, cerebrovascular accident, gastric cancer, mitral valve prolapse, and has completed doxycycline and meropenem. Currently now off of antibiotics. Review of the medications reveals and orders reveals the patient to be off of antibiotics. The patient had risk for developing nosocomial infection. Magdy Diego MD
[2016-11-27] MEDS: Latanoprost 2.5 ml Opht Soln OU SCH (22:34)
[2016-11-28] MEDS: Acetylcysteine 20% Inhal Soln (4ml) IH SCH ×4 (03:07→19:54)
[2016-11-28] MEDS: Levalbuterol 0.63 MG/3 ML Inhal Soln UD IH SCH ×3 (03:08→19:54)
[2016-11-28] MEDS: Pantoprazole 40 mg EC Tab PO SCH (05:31)
[2016-11-28] MEDS: Insulin Reg-LOW-Coverage SC SCH ×4 (07:10→23:33)
--- NOTE | 2016-11-28 08:15 | CP.PCM.PN ---
Subjective - Date & Time of Evaluation Date of Evaluation: 11/28/16 Time of Evaluation: 08:00 - Subjective Subjective: Patient is in TRCU room 320. He has no new complaints this morning. Objective - Vital Signs/Intake and Output Vital Signs (last 24 hours): Temp Pulse Resp BP Pulse Ox 97.7 F 76 18 159/95 H 95 11/28/16 06:00 11/28/16 08:05 11/28/16 06:00 11/28/16 08:05 11/28/16 06:00 Intake and Output: 11/28/16 11/28/16 06:59 18:59 Intake Total 620 0 Balance 620 0 - Medications Medications: Current Medications Acetaminophen (Tylenol 325mg Tab) 650 mg PO Q6H PRN; Protocol PRN Reason: Temperature Last Admin: 11/27/16 21:44 Dose: 650 mg Acetaminophen (Tylenol 650 Mg Supp) 650 mg RC Q6H PRN; Protocol PRN Reason: Temperature Acetylcysteine (Acetylcysteine 20%) 4 ml IH [id number] FRANCISCO JAVIER PRN Reason: Protocol Last Admin: 11/28/16 07:29 Dose: Not Given Aspirin (Ecotrin) 81 mg PO 0800 FRANCISCO JAVIER PRN Reason: Protocol Last Admin: 11/28/16 08:05 Dose: 81 mg Atorvastatin Calcium (Lipitor) 40 mg PO DIN FRANCISCO JAVIER PRN Reason: Protocol Last Admin: 11/27/16 17:58 Dose: 40 mg Benzonatate (Tessalon Perles) 100 mg PO TID FRANCISCO JAVIER PRN Reason: Protocol Last Admin: 11/27/16 17:58 Dose: 100 mg Bisacodyl (Dulcolax) 10 mg RC MWF FRANCISCO JAVIER PRN Reason: Protocol Last Admin: 11/26/16 09:07 Dose: 10 mg Donepezil HCl (Aricept) 10 mg PO HS FRANCISCO JAVIER PRN Reason: Protocol Last Admin: 11/27/16 21:43 Dose: 10 mg Ergocalciferol (Drisdol 50,000 Intl Units Cap) 1 cap PO SAT FRANCISCO JAVIER PRN Reason: Protocol Last Admin: 11/27/16 10:23 Dose: 1 cap Folic Acid (Folic Acid) 1 mg PO DAILY FRANCISCO JAVIER PRN Reason: Protocol Last Admin: 11/27/16 10:23 Dose: 1 mg Insulin Detemir (Levemir) 5 unit SC DAILY FRANCISCO JAVIER PRN Reason: Protocol Last Admin: 11/27/16 10:23 Dose: 5 unit Insulin Human Regular (Humulin R Low) 0 units SC ACHS FRANCISCO JAVIER PRN Reason: Protocol Last Admin: 11/28/16 07:10 Dose: Not Given Isosorbide Mononitrate (Imdur) 120 mg PO 0630 FRANCISCO JAVIER PRN Reason: Protocol Last Admin: 11/28/16 05:31 Dose: 120 mg Latanoprost (Xalatan Opht) 0 ml OU HS FRANCISCO JAVIER PRN Reason: Protocol Last Admin: 11/27/16 22:34 Dose: Not Given Levalbuterol HCl (Xopenex) 0.63 mg IH [id number] FRANCISCO JAVIER PRN Reason: Protocol Last Admin: 11/28/16 07:29 Dose: Not Given Losartan Potassium (Cozaar) 100 mg PO DAILY FRANCISCO JAVIER PRN Reason: Protocol Last Admin: 11/27/16 10:23 Dose: 100 mg Metoprolol Tartrate (Lopressor) 25 mg PO 0800,1800 FRANCISCO JAVIER PRN Reason: Protocol Last Admin: 11/28/16 08:05 Dose: 25 mg Pantoprazole Sodium (Protonix Ec Tab) 40 mg PO 0600 FRANCISCO JAVIER PRN Reason: Protocol Last Admin: 11/28/16 05:31 Dose: 40 mg Polyethylene Glycol (Miralax) 17 gm PO BID FRANCISCO JAVIER PRN Reason: Protocol Last Admin: 11/27/16 17:59 Dose: Not Given Risperidone (Risperdal Tab) 0.25 mg PO BID FRANCISCO JAVIER PRN Reason: Protocol Last Admin: 11/27/16 17:58 Dose: 0.25 mg Tamsulosin HCl (Flomax) 0.4 mg PO 1830 FRANCISCO JAVIER PRN Reason: Protocol Last Admin: 11/27/16 17:58 Dose: 0.4 mg Vitamin B Complex/Vit C/Folic Acid (Nephro-Jaylin) 1 tab PO DAILY FRANCISCO JAVIER PRN Reason: Protocol Last Admin: 11/27/16 10:25 Dose: 1 tab - Labs Labs: 11/25/16 07:30 11/25/16 07:30 - Constitutional Appears: No Acute Distress - Head Exam Head Exam: ATRAUMATIC, NORMOCEPHALIC - Respiratory Exam Respiratory Exam: Clear to Ausculation Bilateral, NORMAL BREATHING PATTERN - Cardiovascular Exam Cardiovascular Exam: +S1, +S2 - GI/Abdominal Exam GI & Abdominal Exam: Soft, Normal Bowel Sounds. absent: Tenderness - Neurological Exam Neurological Exam: Alert, Awake Assessment and Plan - Assessment and Plan (Free Text) Assessment: Sepsis Pneumonia Dementia ESRD on HD Plan: Patient has finished course of antibiotics for pneumonia. continue physical therapy today's potassium level is low. Patient is an end stage renal disease patient on dialysis. Adjustment of potassium level as per nephrology.
[2016-11-28] MEDS: Insulin Detemir 100 units/ml Vial (Levemir) SC SCH (10:50)
[2016-11-28] MEDS: Multivitamin Vitamin B Complex (Nephro-Vite) Tab PO SCH (10:51)
[2016-11-28] MEDS: POLYETHYLENE GLYCOL 3350 17 GM/Dose PACKET PO SCH ×2 (10:51→17:35)
--- NOTE | 2016-11-28 11:24 | PN ---
DATE: 11/28/2016 The patient is in a chair in the TCU, awake, alert without shortness of breath, without chest pain, blood pressure 159/90, heart rate in the 70s. Neck: Negative JVD. Lungs: Without rales. Heart with S1, S2. Extremities: Without edema. There are no labs drawn today. IMPRESSION: 1. Weakness. 2. Recent [id number] myocardial infarction. 3. Stable angina. 4. Coronary artery disease. 5. History of PTCA in the past. 6. Anemia. Given these findings, the patient has been doing remarkably well on medical therapy. He is participating well with physical therapy. Jamin Dewey MD
--- NOTE | 2016-11-28 16:31 | PN ---
DATE: 11/28/2016 SUBJECTIVE: The patient is in bed, in no acute distress, nontoxic. PHYSICAL EXAMINATION: VITAL SIGNS: Temperature is 97, blood pressure is 150/90, respiratory rate of 16. HEENT: Unremarkable. NECK: Supple. LUNGS: Decreased breath sounds. HEART: Normal S1 and S2. ABDOMEN: Soft. LABORATORY DATA: Reveals a white count of 7.4, hemoglobin of 9, platelets of 222 with creatinine of 4.7. Review of orders reveals the patient to be . ASSESSMENT AND PLAN: This is an 86-year-old male who was seen earlier today, who was admitted to acute care with sepsis, healthcare-associated pneumonia and the patient has history of sepsis with healthcare-associated pneumonia in top of non-ST elevation myocardial infarction, acute congestive heart failure, status post treatment, history of gastrointestinal bleed and end-stage renal disease, on hemodialysis; coronary artery disease, cerebrovascular accident, gastric cancer, mitral valve prolapse; completed doxycycline and meropenem. Currently off of antibiotics, afebrile. The patient is in risk for developing nosocomial infection. Magdy Diego MD
[2016-11-28] MEDS: Latanoprost 2.5 ml Opht Soln OU SCH (21:24)
[2016-11-29] MEDS: Acetylcysteine 20% Inhal Soln (4ml) IH SCH ×4 (02:28→20:20)
[2016-11-29] MEDS: Levalbuterol 0.63 MG/3 ML Inhal Soln UD IH SCH ×4 (02:28→20:20)
[2016-11-29] MEDS: Pantoprazole 40 mg EC Tab PO SCH (06:00)
[2016-11-29] MEDS: Insulin Reg-LOW-Coverage SC SCH ×4 (07:06→22:00)
[2016-11-29] MEDS: Insulin Detemir 100 units/ml Vial (Levemir) SC SCH (09:53)
[2016-11-29] MEDS: Multivitamin Vitamin B Complex (Nephro-Vite) Tab PO SCH (09:55)
[2016-11-29] MEDS: POLYETHYLENE GLYCOL 3350 17 GM/Dose PACKET PO SCH ×2 (09:55→17:31)
--- NOTE | 2016-11-29 10:34 | PN ---
SUBJECTIVE: The patient is currently seen eating breakfast in the TCU. He is scheduled for second shift dialysis today. The patient had an uneventful day yesterday in the TCU. MEDICATIONS: Medication list reviewed. The patient is currently on acetylcysteine, Aricept, Cozaar, vitamin D, Dulcolax, Ecotrin, Flomax, folic acid, insulin, Imdur, Lipitor, Lopressor, MiraLax, Nephro-Jaylin, Protonix, Risperdal, Tessalon Perles, p.r.n. Tylenol, Xalatan, and Xopenex. OBJECTIVE: VITAL SIGNS: Blood pressure 151/76, temperature 98, respiratory rate is 16 with a pulse of 78, and pulse ox 96%. HEENT: Shows him to be normocephalic and atraumatic. Conjunctiva are pale. Sclera are nonicteric. NECK: Supple. No neck vein distention. CHEST: Clear to auscultation and percussion. No rales, no rhonchi, no wheezing. Slight decreased breath sounds at the bases. CARDIOVASCULAR: Shows a regular rate and rhythm with a soft systolic murmur in the left lower sternal border. No S3, no S1, no rub. ABDOMEN: Soft. Bowel sounds are normal. No rebound. No guarding. No masses. No tenderness. EXTREMITIES: Show a left upper extremity AV fistula; positive thrill; positive bruit. No lower extremity edema. LABORATORY DATA AND IMAGING: Laboratories will be done pre-dialysis today. ASSESSMENT: 1. End-stage renal disease. The patient will continue Tuesday, Tuesday and Tuesday dialysis. He is scheduled for second shift dialysis today. 2. Status post altered mental status, possibly secondary to sepsis, possible secondary to healthcare acquired pneumonia. The patient has completed a course of antibiotic therapy and has been followed by infectious disease. 3. History of non-insulin dependent diabetes mellitus, the patient currently on insulin. Glucose control is acceptable. 4. History of arteriosclerotic heart disease, status post percutaneous transluminal coronary angioplasty with a bare metal stent placed earlier this year. Recent hospitalization in October of 2016 for a non-ST elevation myocardial infarction. The patient is being treated medically under the guidance of cardiology. 5. History of dementia. The patient baseline appears to have improved from the last admission. He remained stable on current medications and should continue this medications upon discharge. 6. History of hypertension. Blood pressure control is acceptable. 7. History of secondary hyperparathyroidism. We will repeat phosphorus level today and p.r.n., stop binders. PLAN: 1. Continue rehabilitation in the TCU. 2. Continue three times a week dialysis. 3. The patient will return to [facility] upon discharge from the TCU which will likely take place in the next 24 to 48 hours. William Erickson MD
--- NOTE | 2016-11-29 10:55 | PN ---
DATE: 11/29/2016 SUBJECTIVE: The patient is in bed, in no acute distress, nontoxic. PHYSICAL EXAMINATION: VITAL SIGNS: Temperature is 98, blood pressure is 150/70, respiratory rate of 16. HEENT: Unremarkable. NECK: Supple. LUNGS: Decreased breath sounds. HEART: Normal S1 and S2. ABDOMEN: Soft. LABORATORY DATA: Reveals a white count of 7.4, hemoglobin of 9, platelets of 222. Chemistries are noted. Microbiology is noted. ASSESSMENT AND PLAN: An 86-year-old male admitted to the acute care with sepsis, healthcare-associated pneumonia on top of non-ST elevation myocardial infarction and acute congestive heart failure and the patient has completed therapy, has gastrointestinal bleed, end-stage renal disease on hemodialysis, coronary artery disease, cerebrovascular accident, gastric cancer, mitral valve prolapse and completed doxycycline and meropenem, currently off of antibiotics. The patient for possible discharge. Case discussed with primary medical doctor today. Magdy Diego MD
--- NOTE | 2016-11-29 11:27 | PN ---
DATE: 11/29/2016 LOCATION: The patient is seen in room 320, bed 1. SUBJECTIVE: The patient is lying in the bed. The patient is watching TV. The patient appears to be comfortable. The patient does not appear to be agitated. Overnight, nurse's notes were reviewed. The patient was found to be alert, awake, oriented x3 by the nurses. OBJECTIVE: VITAL SIGNS: T-max afebrile; heart rate 70, 78, 69; blood pressure 151/76, 146/78; respiration 16-18; O2 sat 96-97%. Body mass index is 24. HEENT: Head examination normocephalic, atraumatic. HEENT examination shows pinkish pale conjunctivae. Anicteric sclerae. No oropharyngeal lesion. NECK: No neck rigidity. CHEST: Examination symmetrical. LUNGS: Examination shows no rales, crackles or wheezing. CARDIOVASCULAR: Examination S1, S2, regular rhythm. Questionable soft systolic murmur left sternal border, left second intercostal space, right second intercostal space. ABDOMEN: Soft. Positive bowel sound. GENITALIA: Male. RECTAL: Examination is deferred. EXTREMITY: Shows positive left upper extremity AV fistula, positive thrill. Motor strength is 5/5 upper and lower extremity. GAIT: Examination not tested. VASCULAR: Examination palpable pulses. DIAGNOSTICS DATA: On November 25, WBC in 7.4, hemoglobin/hematocrit 9.7 and 29.6, platelet 222. Sodium 138, potassium 3.4, chloride 100, CO2 is 26, anion gap 15, BUN 30, creatinine 4.7, GFR 14, glucose 113. LFTs are normal. IMPRESSION: 1. Deconditioning. 2. Gait dysfunction. 3. Anemia. 4. Hypertension. 5. Low grade fever. 6. Insulin requiring type 1 diabetes mellitus. 7. End-stage renal disease, hemodialysis dependent. 8. Normocytic anemia. 9. Granulocytosis. 10. Hypokalemia. 11. Sepsis secondary to healthcare-associated pneumonia. 12. Acute recurrent non-ST elevation myocardial infarction. 13. History of gastrointestinal bleeding. 14. Acute exacerbation of dementia. 15. Vascular dementia with behavioral disturbances (resolved). 16. History of gastrointestinal bleeding. 17. Constipation. 18. Hypertension. 19. Hypovitaminosis D. 20. Prostatic hypertrophy. 21. Coronary artery disease. 22. Dyslipidemia. PLAN: At this time, the patient is to continue the TCU until the authorized number of days. The patient will be considered for discharge after completion of TCU days. The patient has been out of bed, physical therapy, occupational therapy, gait training, ambulation therapy. CURRENT MEDICATIONS: Mucomyst 20% 4 mL q. 6 hours; Aricept 10 mg at bedtime; Cozaar 100 mg daily; Drisdol 50,000 weekly; Dulcolax suppository 10 mg Tuesday, Tuesday, Tuesday; Ecotrin 81 mg daily; Flomax 0.4 mg daily; folic acid 1 mg daily; regular insulin sliding scale coverage before meals and at bedtime; Imdur 120 mg daily; Levemir 5 units subcu daily; Lipitor 40 mg daily; metoprolol 25 mg twice a day; MiraLax 17 g twice a day; Nephro-Jaylin 1 tablet daily; Protonix 40 mg daily; Risperdal 0.25 twice a day; Tessalon Perles 100 mg three times a day; Tylenol q. 6 hours as needed; Xalatan eye drops; Xopenex nebulizer 0.63 mg every 6 hours. The patient is to be continued on above therapeutic intervention with TCU care. Zeyad Nazario MD
--- NOTE | 2016-11-29 19:32 | PN ---
SUBJECTIVE: The patient is an 86-year-old -[place]ag[place] male who is currently being treated in the transitional care unit for deconditioning and for gait dysfunction. The patient is currently being followed psychiatrically due to recent agitation, behavioral disturbance while in the medical surgical service. His mental status has much improved since being prescribed Risperdal 0.25 mg b.i.d. He has been cooperative with care. The nurse notes he sleeps through the night. The patient is currently receiving hemodialysis, he receives 3 times a week for end-stage renal disease. The patient is awake, oriented x3. His processes are slow. He is in no acute distress, agitation, depression, or suicidal ideation. He is oriented x3. His recent memory is mildly to moderately impaired. The patient has no hallucinations, no paranoia or suicidal ideation. CURRENT MEDICATIONS: Include acetylcysteine, Aricept, Cozaar, Drisdol, Dulcolax, Ecotrin, Flomax, folate, Humulin low protocol, Imdur, Levemir, Lipitor, Lopressor, MiraLax, Nephro-Jaylin, Protonix, Risperdal 0.25 mg b.i.d., Tessalon Perles 100 mg t.i.d., Xalatan ophthalmic solution, Xopenex inhaler. LABORATORY DATA: The patient has so many new laboratory reports, glucose of 153. REVIEW OF SYSTEMS: Negative for 12 point review. PHYSICAL EXAMINATION: VITAL SIGNS: Blood pressure 157/73, pulse 76, respirations 14. Afebrile. IMPRESSION: The patient has a vascular dementia with past behavioral disturbance. He has gait dysfunction debilitation, end-stage renal disease hemodialysis. He has insulin dependent diabetes mellitus, normocytic anemia, previous sepsis. The patient has benign prostate hypertrophy, coronary artery disease, hyperlipidemia. PLAN: Continue Risperdal 0.25 mg b.i.d. and we will monitor mental status while he is in the transitional care unit. Hunter Kurtz MD
[2016-11-29] MEDS: Latanoprost 2.5 ml Opht Soln OU SCH (21:25)
[2016-11-30] MEDS: Levalbuterol 0.63 MG/3 ML Inhal Soln UD IH SCH ×2 (02:13→07:30)
[2016-11-30] MEDS: Acetylcysteine 20% Inhal Soln (4ml) IH SCH ×3 (02:13→13:14)
[2016-11-30] MEDS: Pantoprazole 40 mg EC Tab PO SCH (05:42)
[2016-11-30 06:38] VITALS: BP 164/91; PULSE 87; RESP 18; TEMP 98.7; O2SAT 95
[2016-11-30] MEDS: Insulin Reg-LOW-Coverage SC SCH ×3 (06:48→12:38)
[2016-11-30] MEDS: Multivitamin Vitamin B Complex (Nephro-Vite) Tab PO SCH (09:45)
[2016-11-30] MEDS: Insulin Detemir 100 units/ml Vial (Levemir) SC SCH (09:46)
[2016-11-30] MEDS: POLYETHYLENE GLYCOL 3350 17 GM/Dose PACKET PO SCH ×2 (09:46→09:55)
--- NOTE | 2016-11-30 12:14 | CP.PCM.PN ---
Subjective - Date & Time of Evaluation Date of Evaluation: 11/30/16 Time of Evaluation: 10:10 - Subjective Subjective: Comfortable, afebrile. Objective - Vital Signs/Intake and Output Vital Signs (last 24 hours): Temp Pulse Resp BP Pulse Ox 98.7 F 87 18 164/91 H 95 11/30/16 06:00 11/30/16 08:14 11/30/16 06:00 11/30/16 08:14 11/30/16 06:00 - Medications Medications: Current Medications Acetaminophen (Tylenol 325mg Tab) 650 mg PO Q6H PRN; Protocol PRN Reason: Temperature Last Admin: 11/29/16 21:21 Dose: 650 mg Acetaminophen (Tylenol 650 Mg Supp) 650 mg RC Q6H PRN; Protocol PRN Reason: Temperature Acetylcysteine (Acetylcysteine 20%) 4 ml IH [id number] FRANCISCO JAVIER PRN Reason: Protocol Last Admin: 11/30/16 07:30 Dose: Not Given Aspirin (Ecotrin) 81 mg PO 0800 FRANCISCO JAVIER PRN Reason: Protocol Last Admin: 11/30/16 08:14 Dose: 81 mg Atorvastatin Calcium (Lipitor) 40 mg PO DIN FRANCISCO JAVIER PRN Reason: Protocol Last Admin: 11/29/16 17:30 Dose: 40 mg Benzonatate (Tessalon Perles) 100 mg PO TID FRANCISCO JAVIER PRN Reason: Protocol Last Admin: 11/30/16 09:45 Dose: 100 mg Bisacodyl (Dulcolax) 10 mg RC MWF FRANCISCO JAVIER PRN Reason: Protocol Last Admin: 11/29/16 09:52 Dose: Not Given Donepezil HCl (Aricept) 10 mg PO HS FRANCISCO JAVIER PRN Reason: Protocol Last Admin: 11/29/16 21:21 Dose: 10 mg Ergocalciferol (Drisdol 50,000 Intl Units Cap) 1 cap PO SAT FRANCISCO JAVIER PRN Reason: Protocol Last Admin: 11/27/16 10:23 Dose: 1 cap Folic Acid (Folic Acid) 1 mg PO DAILY FRANCISCO JAVIER PRN Reason: Protocol Last Admin: 11/30/16 09:45 Dose: 1 mg Insulin Detemir (Levemir) 5 unit SC DAILY FRANCISCO JAVIER PRN Reason: Protocol Last Admin: 11/30/16 09:46 Dose: 5 unit Insulin Human Regular (Humulin R Low) 0 units SC ACHS FRANCISCO JAVIER PRN Reason: Protocol Last Admin: 11/30/16 06:48 Dose: 1 units Isosorbide Mononitrate (Imdur) 120 mg PO 0630 FRANCISCO JAVIER PRN Reason: Protocol Last Admin: 11/30/16 05:42 Dose: 120 mg Latanoprost (Xalatan Opht) 0 ml OU HS FRANCISCO JAVIER PRN Reason: Protocol Last Admin: 11/29/16 21:25 Dose: Not Given Levalbuterol HCl (Xopenex) 0.63 mg IH [id number] FRANCISCO JAVIER PRN Reason: Protocol Last Admin: 11/30/16 07:30 Dose: Not Given Losartan Potassium (Cozaar) 100 mg PO DAILY FRANCISCO JAVIER PRN Reason: Protocol Last Admin: 11/30/16 09:45 Dose: 100 mg Metoprolol Tartrate (Lopressor) 25 mg PO 0800,1800 FRANCISCO JAVIER PRN Reason: Protocol Last Admin: 11/30/16 08:14 Dose: 25 mg Pantoprazole Sodium (Protonix Ec Tab) 40 mg PO 0600 FRANCISCO JAVIER PRN Reason: Protocol Last Admin: 11/30/16 05:42 Dose: 40 mg Polyethylene Glycol (Miralax) 17 gm PO BID FRANCISCO JAVIER PRN Reason: Protocol Last Admin: 11/30/16 09:55 Dose: Not Given Risperidone (Risperdal Tab) 0.25 mg PO BID FRANCISCO JAVIER PRN Reason: Protocol Last Admin: 11/30/16 09:45 Dose: 0.25 mg Tamsulosin HCl (Flomax) 0.4 mg PO 1830 FRANCISCO JAVIER PRN Reason: Protocol Last Admin: 11/29/16 17:33 Dose: 0.4 mg Vitamin B Complex/Vit C/Folic Acid (Nephro-Jaylin) 1 tab PO DAILY FRANCISCO JAVIER PRN Reason: Protocol Last Admin: 11/30/16 09:45 Dose: 1 tab - Labs Labs: 11/25/16 07:30 11/25/16 07:30 - Constitutional Appears: Non-toxic, No Acute Distress - Head Exam Head Exam: NORMAL INSPECTION - Neck Exam Neck Exam: absent: Meningismus - Respiratory Exam Respiratory Exam: Decreased Breath Sounds - Cardiovascular Exam Cardiovascular Exam: +S1, +S2 - GI/Abdominal Exam GI & Abdominal Exam: Soft. absent: Tenderness Assessment and Plan - Assessment and Plan (Free Text) Plan: Assessment sepsis due to HCAP, clinically improved and S/P treatment dementia history of sepsis from healthcare-associated pneumonia on top of non-ST elevation MS with acute congestive heart failure, clinically improved and S/P treatment history of GI bleeding ESRD on HD cornoary artery disease Cerebrovascular accident Gastric cancer Mitral valve prolapse Plan continue to monitor the patient off antibiotics while the patient is in the hospital since he is at risk for nosocomial infections
--- NOTE | 2016-11-30 13:13 | DS ---
HISTORY OF PRESENT ILLNESS: The patient is seen lying in the bed in room 320, bed 1. Overnight nurse's notes were reviewed. The patient had completed his dialysis without any adverse events. The patient was found to be episodically confused with A and O x1. This morning the patient is alert, awake, oriented x3. The patient is able to say my name, his name and the place where he is. PHYSICAL EXAMINATION: VITAL SIGNS: T-max is 98.7; pulse 72-87; blood pressure 164/91, 147/59, 157/73; respirations 18; and O2 sat 95%. HEAD: Examination normocephalic, atraumatic. EENT: Examination shows pinkish pale conjunctivae. Anicteric sclerae. No oropharyngeal lesion. NECK: No neck rigidity. Soft carotid bruit. CHEST: Examination kyphosis. LUNGS: Examination shows occasional rhonchi upper lung chaney. CARDIOVASCULAR: S1 and S2 regular rhythm. Questionable soft systolic murmur, right second intercostal space left sternal border. ABDOMEN: Soft. Positive bowel sounds. Nontender. GENITALIS: Male. RECTAL: Examination is deferred. EXTREMITIES: Positive left upper extremity AV fistula, positive thrill noted. Lower extremity shows no pitting edema, no calf tenderness, no Consuelo's sign. NEUROLOGIC: The patient is alert, awake, oriented to person, place and he is able to say his name and my name. Follow simple commands, able to move upper and lower extremity without assistance. Gait examination not tested. MUSCULOSKELETAL: Examination shows a body mass index of 24.2. DIAGNOSTICS: None. IMPRESSION AND PLAN 1. Deconditioning. 2. Gait dysfunction. 3. Sepsis secondary to healthcare-associated pneumonia. 4. Insulin requiring diabetes mellitus. 5. Low grade fever. 6. Acute exacerbation of dementia with behavioral disturbances with episodic agitation (resolved). 7. Gait dysfunction. 8. End-stage renal disease, hemodialysis dependent three times a week via the left upper extremity AV fistula. 9. Hypertension. 10. Normocytic anemia. 11. Dementia. 12. Hypovitaminosis D. 13. Constipation. 14. Prostatic hypertrophy. 15. Angina. 16. Dyslipidemia. 17. Gastroesophageal reflux. DISCHARGE MEDICATIONS Tylenol 650 q. 6 hours as needed. 2. DuoNeb nebulizer every 6 hours. 3. Ecotrin 81 mg daily. 4. Lipitor 40 mg daily. 5. Tessalon Perles 100-200 mg three times a day. 6. Drisdol 50,000 weekly. 7. Aricept 10 mg at bedtime. 8. Folic acid 1 mg daily. 9. Levemir insulin 5 units subcu once a day. 10. Imdur 120 mg daily. 11. Linzess 145 mcg daily. 12. Cozaar 100 mg daily. 13. Bystolic 5 mg daily. 14. Prilosec 40 mg daily. 15. Risperdal 0.25 mg twice a day. 16. Renagel 800 mg three times a day. 17. Flomax 0.4 mg daily. 18. Travatan eye drops 1 drop both eyes at bedtime. 19. Suzanna-Jaylin 1 tablet daily. PLAN: The patient is discharged home. Discharge followup with Dr. Nazario within 1 week. Discharge medications as per updated ambulatory orders. During this hospitalization, the patient's condition, diagnosis, need for 24-hour care and supervision was explained to the patient's , Katelyn Lay. He is on multiple occasions. The patient's was also explained about the declining the patient's overall medical condition and decompensating state which she acknowledged and understand. Time spent in the entire discharge process more than 45 minutes. Zeyad Nazario MD
--- NOTE | 2016-11-30 13:58 | PN ---
SUBJECTIVE: The patient is an 86-year-old -[place] male who has been recuperating on the Transitional Care Unit. He has a history of vascular dementia. His medical problems including sepsis are resolving. He is currently being treated also for gait dysfunction. The patient is to be discharged later today. MEDICATIONS: His current medications include Risperdal 0.25 mg b.i.d. He is also receiving Aricept 10 mg at bedtime, Drisdol, Dulcolax, Ecotrin, Flomax, folate, Humulin insulin protocol, Imdur, Levemir, Lipitor, Lopressor, Nephro-Jaylin, and Protonix. The patient receives hemodialysis 3 days a week, Mondays, Wednesdays, and Fridays. MENTAL STATUS EXAMINATION: Reveals that he is awake, generally alert. His recent memory is somewhat impaired. Thoughts are coherent but slow. He is oriented x3. Denies depression. No evidence of agitation or adverse effect from psychotropic medication. The patient no longer has any behavioral problems according to nurses' notes and staff. IMPRESSION: Status post sepsis, status post delirium with behavioral disturbance. He has vascular dementia. He has end-stage renal disease. He is on hemodialysis. He has history of hypertension, history of chronic obstructive pulmonary disease, history of insulin-dependant diabetes mellitus. PLAN: Suggest the patient should remain on Risperdal 0.25 b.i.d. This will be reevaluated within 2 to 4 weeks for necessity of continued therapy. Hunter Kurtz MD
== END 2016-11-30 14:13 | disposition home or self-care (01) | DRG 945 ==
LOC: TRCU 16:26
PROVIDERS: ADMIT Internal Medicine; ATTEND Internal Medicine
PROC: F07Z9FZ Gait Training/Functional Ambulation Treatment using Assistive, Adaptive, Supportive or Protective Equipment (ICD-10-PCS; principal; 2016-11-23)
PROC: F08Z4FZ Home Management Treatment using Assistive, Adaptive, Supportive or Protective Equipment (ICD-10-PCS; 2016-11-23)
PROC: 5A1D60Z (ICD-10-PCS; 2016-11-24)
PROC: 3E0F7GC Introduction of Other Therapeutic Substance into Respiratory Tract, Via Natural or Artificial Opening (ICD-10-PCS; 2016-11-24)
DX: R53.1 Weakness (principal); R26.89 Other abnormalities of gait and mobility; A41.9 Sepsis, unspecified organism; I21.4 Non-ST elevation (NSTEMI) myocardial infarction; I13.2 Hypertensive heart and chronic kidney disease with heart failure and with stage 5 chronic kidney disease, or end stage renal disease; J18.9 Pneumonia, unspecified organism; G93.40 Encephalopathy, unspecified; N18.6 End stage renal disease; J44.0 Chronic obstructive pulmonary disease with (acute) lower respiratory infection; N25.81 Secondary hyperparathyroidism of renal origin; F01.51 Vascular dementia, unspecified severity, with behavioral disturbance; R13.12 Dysphagia, oropharyngeal phase; E11.22 Type 2 diabetes mellitus with diabetic chronic kidney disease; Y95 Nosocomial condition; Z99.2 Dependence on renal dialysis; E55.9 Vitamin D deficiency, unspecified; N40.0 Benign prostatic hyperplasia without lower urinary tract symptoms; E78.5 Hyperlipidemia, unspecified; K21.9 Gastro-esophageal reflux disease without esophagitis; K59.00 Constipation, unspecified; D64.9 Anemia, unspecified; H40.9 Unspecified glaucoma; I25.118 Atherosclerotic heart disease of native coronary artery with other forms of angina pectoris; I50.9 Heart failure, unspecified; I34.1 Nonrheumatic mitral (valve) prolapse; E87.6 Hypokalemia; Z79.4 Long term (current) use of insulin; Z95.5 Presence of coronary angioplasty implant and graft; Z86.73 Personal history of transient ischemic attack (TIA), and cerebral infarction without residual deficits; Z87.891 Personal history of nicotine dependence; Z85.028 Personal history of other malignant neoplasm of stomach

== ENCOUNTER 2016-12-01 09:44 | Inpatient (IN) | payer MEDICARE, BC ==
--- NOTE | 2016-12-01 10:10 | ED PDOC ---
Arrival/HPI - General Chief Complaint: Respiratory Distress Time Seen by Provider: 12/01/16 09:49 Historian: Patient, Spouse - History of Present Illness Narrative History of Present Illness (Text): 12/01/16 10:00 Mendoza Lay is a 86 year old male discharged from TCU on 11/17/2016 after admission for NSTEMI with complicated medical history including HTN, dementia, anemia, IDDM, hyperlipidemia, who is brought in vis EMS accompanied by his complaining of shortness of breath and being unable to ambulate. reports it began yesterday when the patient was going up the steps, patient had collapsed. notes patient is due for dialysis today. denies any fever, cough, vomiting, or other complaints. PMD: Dr. Nazario Time/Duration: 24 hours Symptom Onset: Sudden Symptom Course: Unchanged Activities at Onset: Light Context: Walking Associated Symptoms (Text): shortness of breath, and gait changes Past Medical History - Provider Review Nursing Documentation Reviewed: Yes - Infectious Disease Hx of Infectious Diseases: None - Tetanus Immunization Tetanus Immunization: Unknown - Cardiac Hx Cardiac Disorders: Yes (RI) - Pulmonary Hx Chronic Obstructive Pulmonary Disease (COPD): Yes - Neurological HX Cerebrovascular Accident: Yes - HEENT Hx HEENT Disorder: Yes (WEARS RX GLASSES) Hx Epistaxis: Yes - Renal Hx Renal Failure: Yes (ESRD on Hemo) - Endocrine/Metabolic Hx Diabetes Mellitus Type 2: Yes (IDDM) - Hematological/Oncological Hx Cancer: Yes (gastric) - Integumentary Hx Dermatological Disorder: No - Musculoskeletal/Rheumatological Hx Falls: No - Gastrointestinal Hx Gastrointestinal Disorders: Yes - Genitourinary/Gynecological Hx Reproductive Disorders: No - Psychiatric Hx Psychophysiologic Disorder: No Hx Emotional Abuse: No Hx Substance Use: No - Surgical History Hx Cholecystectomy: Yes Hx Coronary Stent: Yes (x1) Other/Comment: AV shunt placement. - Anesthesia Hx Anesthesia Reactions: No Hx Malignant Hyperthermia: No - Suicidal Assessment Feels Threatened In Home Enviroment: No Family/Social History - Physician Review Nursing Documentation Reviewed: Yes Family/Social History: Unknown Family HX Smoking Status: Former Smoker Hx Alcohol Use: No Hx Substance Use: No Hx Substance Use Treatment: No Allergies/Home Meds Allergies/Adverse Reactions: Allergies No Known Allergies Allergy (Verified 11/18/16 19:28) Home Medications: Home Meds Medication Instructions Recorded Confirmed Linaclotide [Linzess] 145 mcg PO DAILY 09/22/15 12/01/16 Travoprost [Travatan Z] 1 drop BOTHEYES HS 11/23/15 12/01/16 Cholecalciferol [Vitamin D 1000 IU] 50,000 unit PO SAT 01/30/16 12/01/16 Folic Acid 1 mg PO DAILY 04/22/16 12/01/16 Omeprazole 20 mg PO QAM 04/22/16 12/01/16 Sevelamer [Renagel] 800 mg PO TID 04/22/16 12/01/16 Aspirin [Lo-Dose Aspirin EC] 81 mg PO DAILY 04/28/16 12/01/16 Benzonatate 100 mg PO TID 09/05/16 12/01/16 Losartan [Cozaar] 100 mg PO DAILY 09/05/16 12/01/16 Nebivolol [Bystolic] 5 mg PO DAILY 09/05/16 12/01/16 Tamsulosin [Flomax] 0.4 mg PO DAILY 09/05/16 12/01/16 Vit B Cmplx 3/Folic AC/C/Biot 1 tab PO DAILY 09/05/16 12/01/16 [Suzanna-Jaylin Rx Tablet] Review of Systems - Review of Systems Systems not reviewed;Unavailable: Dementia Constitutional: absent: Fevers Respiratory: SOB. absent: Cough Gastrointestinal: absent: Diarrhea, Vomiting Skin: absent: Rash Neurological: Gait Changes Physical Exam Vital Signs Reviewed: Yes Vital Signs Temp Pulse Resp BP Pulse Ox 12/01/16 12:32 83 18 173/98 H 93 L 12/01/16 10:04 18 12/01/16 09:45 99.2 F 82 22 157/100 H 89 L Temperature: Afebrile Blood Pressure: Hypertensive Pulse: Regular Respiratory Rate: Tachypneic Appearance: Positive for: Non-Toxic Pain Distress: None Mental Status: Positive for: other (Alert and Oriented X 1) - Systems Exam Head: Present: Atraumatic, Normocephalic Pupils: Present: PERRL Extroacular Muscles: Present: EOMI Conjunctiva: Present: Normal Mouth: Present: Moist Mucous Membranes Neck: Present: Normal Range of Motion Respiratory/Chest: Present: Good Air Exchange, Rales (traces of rales). No: Respiratory Distress, Accessory Muscle Use Cardiovascular: Present: Regular Rate and Rhythm, Normal S1, S2. No: Murmurs Abdomen: Present: Normal Bowel Sounds. No: Tenderness, Distention, Peritoneal Signs Back: Present: Normal Inspection Upper Extremity: Present: Normal Inspection. No: Cyanosis, Edema Lower Extremity: Present: Normal Inspection. No: Edema Neurological: Present: GCS=15, CN II-XII Intact, Speech Normal, Other (+2 radial pulse) Skin: Present: Warm, Dry, Normal Color. No: Rashes Psychiatric: Present: Alert, Other (oriented x 1) Medical Decision Making ED Course and Treatment: 12/01/16 Impression: 86 year old male with shortness of breath, appears tachypneic, and has gait changes. Differential Diagnosis included but are not limited to: fluid overload vs. pneumonia Plan: -- EKG -- Chest X-ray -- Labs -- Urinalysis -- Reassess and disposition Prior Visits: Notes and results from previous visits were reviewed. On 11/17/2016 patient came in complaining of RI. Patient was discharged 2016. Progress Notes: EKG: Ordered, reviewed, and independently interpreted the EKG. Rate : 85 BPM Rhythm : NSR Interpretation : first degree AV block. Right bundle branch block. 12/01/16 11:20 Chest X-ray: Creator : Mendoza Barrera MD COMPARISON: 11/18/2016 FINDINGS: LUNGS: Increased vascular congestion. Patchy infiltrates in the right lung. This is more likely pneumonia, however CHF is also possible. Findings were discussed with Dr. Oneal PLEURA: No significant pleural effusion identified, no pneumothorax apparent. CARDIOVASCULAR: Normal. OSSEOUS STRUCTURES: No significant abnormalities. VISUALIZED UPPER ABDOMEN: Normal. OTHER FINDINGS: None. IMPRESSION: Patchy infiltrates in the right lung suspicious for pneumonia. Increased vascular congestion 12/01/16 13:56 Case was treated with Zosyn and Vancomycin for Pneumonia with recent hospitalization. Case discussed with Dr. Nazario who states that he believes it's more fluid overload. CT Chest ordered. Will place on observation Telemetry for Fluid Overload r/o Pneumonia. Patient went for dialysis. Consult placed for Dr. Ibarra by Dr. Nazario. - Lab Interpretations Lab Results: 12/01/16 10:00 12/01/16 10:00 Lab Results 12/01/16 10:01: POC Glucose (mg/dL) 138 H 12/01/16 10:00: Sodium 141, Chloride 98, Potassium 4.6, Carbon Dioxide 23, Anion Gap 25 H, BUN 53 H, Creatinine 6.5 H, Est GFR ( Amer) 10, Est GFR ( Non-Af Amer) 8, Random Glucose 123 H, Calcium 9.6, Phosphorus 3.7, Magnesium 2.1 , Total Bilirubin 0.9, AST 40, ALT 32, Alkaline Phosphatase 105, Troponin I 0.07 D, NT-Pro-B Natriuret Pep 33777 H, Total Protein 7.6, Albumin 3.9, Globulin 3.6, Albumin/Globulin Ratio 1.1 12/01/16 10:00: pO2 44, VBG pH 7.42, VBG pCO2 44.0, VBG HCO3 28.5 H, VBG Total CO2 29.9 H, VBG O2 Sat (Calc) 82.8 H, VBG Base Excess 3.5 H, VBG Potassium 4.7, Sodium 138.0, Chloride 101.0, Glucose 134 H, Lactate 2.0, FiO2 21.0, Venous Blood Potassium 4.7 12/01/16 10:00: PT 11.6, INR 1.07, APTT 28.2 12/01/16 10:00: WBC 9.4 D, RBC 3.68, Hgb 10.7 L, Hct 32.0 L, MCV 87.0, MCH 29.1 , MCHC 33.4, RDW 16.8 H, Plt Count 245, MPV 10.2, Gran % 74.1 H, Lymph % (Auto) 15.2 L, [place] % (Auto) 9.9 H, Eos % (Auto) 0.3 L, Baso % (Auto) 0.5, Gran # 6.99 H, Lymph # 1.4, [place] # 0.9 H, Eos # 0.0, Baso # 0.05 I have reviewed the lab results: Yes - RAD Interpretation Radiology Orders: 12/01/16 10:04 CHEST PORTABLE [RAD] Stat 12/01/16 12:42 CHEST W/O CONTRAST [CT] Stat Dolphin Trainer: Radiologist - EKG Interpretation Interpreted by ED Physician: Yes Type: 12 lead EKG - Medication Orders Current Medication Orders: Acetaminophen (Tylenol 325mg Tab) 650 mg PO Q6H PRN PRN Reason: TEMP>=99.5F Acetylcysteine (Acetylcysteine 20%) 4 ml IH [id number] FRANCISCO JAVIER Aspirin (Ecotrin) 81 mg PO DAILY FRANCISCO JAVIER Atorvastatin Calcium (Lipitor) 40 mg PO DIN FRANCISCO JAVIER Benzonatate (Tessalon Perles) 200 mg PO TID FRANCISCO JAVIER Donepezil HCl (Aricept) 10 mg PO HS FRANCISCO JAVIER Ergocalciferol (Drisdol 50,000 Intl Units Cap) 1 cap PO SAT FRANCISCO JAVIER Folic Acid (Folic Acid) 1 mg PO DAILY FRANCISCO JAVIER Insulin Detemir (Levemir) 5 unit SC DAILY FRANCISCO JAVIER Isosorbide Mononitrate (Imdur) 120 mg PO DAILY FRANCISCO JAVIER Latanoprost (Xalatan Opht) 1 ml OU HS FRANCISCO JAVIER Levalbuterol HCl (Xopenex) 0.63 mg IH [id number] FRANCISCO JAVIER Losartan Potassium (Cozaar) 100 mg PO DAILY FRANCISCO JAVIER Pantoprazole Sodium (Protonix Ec Tab) 40 mg PO 0600 FRANCISCO JAVIER Polyethylene Glycol (Miralax) 17 gm PO BID FRANCISCO JAVIER Risperidone (Risperdal Tab) 0.25 mg PO BID FRANCISCO JAVIER PRN Reason: Protocol Sevelamer HCl (Renagel) 800 mg PO TID FRANCISCO JAVIER Tamsulosin HCl (Flomax) 0.4 mg PO DAILY [facility] Vitamin B Complex/Vit C/Folic Acid (Nephro-Jaylin) 1 tab PO DAILY [facility] Discontinued Medications Benzonatate (Tessalon Perles) 100 mg PO TID FRANCISCO JAVIER Cefepime HCl (Maxipime 2gm) 2 gm in 100 mls @ 100 mls/hr IVPB STAT STA PRN Reason: Protocol Stop: 12/01/16 12:17 Last Admin: 12/01/16 11:30 Dose: 100 mls/hr Vancomycin HCl (Vancomycin 1gm) 1 gm in 250 mls @ 167 mls/hr IVPB STAT STA PRN Reason: Protocol Stop: 12/01/16 12:47 Last Admin: 12/01/16 12:22 Dose: 167 mls/hr Linaclotide [Linzess (] 145 Mcg) 145 mcg PO DAILY FRANCISCO JAVIER Nebivolol [Bystolic] (5 Mg) 5 mg PO DAILY FRANCISCO JAVIER Polyethylene Glycol (Miralax) 17 gm PO STAT STA Stop: 12/01/16 13:24 - Scribe Statement The provider has reviewed the documentation as recorded by the Scribe 12/01/2016 Gali Crumpa Provider Scribe Attestation: All medical record entries made by the Scribe were at my direction and personally dictated by me. I have reviewed the chart and agree that the record accurately reflects my personal performance of the history, physical exam, medical decision making, and the department course for this patient. I have also personally directed, reviewed, and agree with the discharge instructions and disposition. Disposition/Present on Arrival - Present on Arrival Any Indicators Present on Arrival: No History of DVT/PE: No History of Uncontrolled Diabetes: No Urinary Catheter: No History of Decub. Ulcer: No History Surgical Site Infection Following: None - Disposition Have Diagnosis and Disposition been Completed?: Yes Diagnosis: ESRD (end stage renal disease), Pneumonia Disposition Time: 01:30 Patient Plan: Observation Condition: FAIR Referrals: PCP,NO [Non-Staff] - Follow up with primary Forms: [employer] ([place]ux[place]ish)
[2016-12-01 10:17] LABS: BASO # 0.05 K/mm3 (0.0-2.0); BASO % 0.5 % (0.0-3.0); EOS % 0.3 % (1.5-5.0); GRAN # 6.99 (1.4-6.5); GRAN % 74.1 % (50.0-68.0); LYMPH # 1.4 (1.2-3.4); LYMPH % 15.2 % (22.0-35.0); MEAN CORPUSCULAR HEMOGLOBIN 29.1 pg (25.0-35.0); MEAN CORPUSCULAR HGB CONC 33.4 g/dl (31.0-37.0); MEAN PLATELET VOLUME 10.2 fl (7.0-11.0); MONO # 0.9 (0.1-0.6); MONO % 9.9 % (1.0-6.0); RED CELL DISTRIBUTION WIDTH 16.8 % (11.5-14.5); WHITE BLOOD COUNT 9.4 10^3/ul (4.5-11.0)
[2016-12-01 10:21] LABS: VENOUS BLOOD GAS BASE EXCESS 3.5 mmol/L (0.0-2.0); VENOUS BLOOD PH 7.42 (7.32-7.43)
[2016-12-01 10:26] LABS: INR 1.07 (0.93-1.08); PARTIAL THROMBOPLASTIN TIME 28.2 Seconds (23.7-30.8)
[2016-12-01 10:28] LABS: ALB/GLOB RATIO 1.1 (1.1-1.8); BILIRUBIN,TOTAL 0.9 mg/dL (0.2-1.3); CALCIUM 9.6 mg/dL (8.4-10.5); MAGNESIUM 2.1 mg/dL (1.7-2.2); PHOSPHOROUS 3.7 mg/dL (2.5-4.5); POTASSIUM 4.6 mmol/L (3.6-5.0); TOTAL PROTEIN 7.6 g/dL (5.8-8.3)
[2016-12-01 10:40] LABS: TROPONIN I 0.07 ng/mL
--- NOTE | 2016-12-01 11:14 | RAD ---
HISTORY: Sepsis Patient COMPARISON: 11/18/2016 FINDINGS: LUNGS: Increased vascular congestion. Patchy infiltrates in the right lung. This is more likely pneumonia, however CHF is also possible. Findings were discussed with Dr. Oneal PLEURA: No significant pleural effusion identified, no pneumothorax apparent. CARDIOVASCULAR: Normal. OSSEOUS STRUCTURES: No significant abnormalities. VISUALIZED UPPER ABDOMEN: Normal. OTHER FINDINGS: None. IMPRESSION: Patchy infiltrates in the right lung suspicious for pneumonia. Increased vascular congestion
[2016-12-01] MEDS ORDERED: Vancomycin 1gm in NS 250ml 1 GM/250 ML BAG IVPB STA (11:18)
[2016-12-01] MEDS ORDERED: Cefepime IV 2 gm in NS 2 GM/100 ML BAG IVPB STA (11:18)
[2016-12-01] MEDS ORDERED: NEBIVOLOL 5 MG PO SCH (12:45)
[2016-12-01] MEDS ORDERED: POLYETHYLENE GLYCOL 3350 17 GM/Dose PACKET PO STA (13:23)
[2016-12-01 14:09] LABS: VENOUS BLOOD GAS BASE EXCESS 5.5 mmol/L (0.0-2.0); VENOUS BLOOD PH 7.52 (7.32-7.43)
[2016-12-01 14:25] LABS: INR 1.08 (0.93-1.08); PARTIAL THROMBOPLASTIN TIME 27.8 Seconds (23.7-30.8)
--- NOTE | 2016-12-01 14:38 | CP.PCM.HP ---
<NikitaShayy - Last Filed: 12/01/16 18:03> History of Present Illness - History of Present Illness History of Present Illness: 86 M with PMHx of ESRD on HD (M/W/F), prior HCAP, CAD s/p stenting, GI bleeds, CVA, Gastric cancer, Mitral valve prolapse, DM, and dementia recently discharged from TCU on 11/17/16 following rehab for recent NSTEMI re-admitted today with SOB and collapsing while ambulating. Pt has baseline dementia with questionable AMS. Pt is for HD today as part of MWF schedule for ESRD. On previous admission, pt found to have sepsis 2/2 HCAP, was started on Abx- seen/evaluated by ID with recs for Abx for HCAP. Pt with constipation, modified bowel regimen. Found to have some anemia, treated with blood transfusion. Pt seen/evaluated by nephro with continuation of HD. Pt seen /evaluated by psych 2/2 agition with recs for Beck RYAN severe agitation. Pt was seen and examined while in HD session. Pt is altered without family present. HPI and ROS limited. PMH: ESRD on HD (M/W/F), prior HCAP, CAD s/p stenting, GI bleeds, CVA, Gastric cancer, Mitral valve prolapse, DM, and dementia PSH: AVF L forearm All: NDKA SH: Hx tobacco use, no reported EtOH or Illicits PMD: Dr. Nazario Present on Admission - Present on Admission Any Indicators Present on Admission: No Review of Systems - Review of Systems Systems not reviewed;Unavailable: Altered Mental Status Past Patient History - Infectious Disease Hx of Infectious Diseases: None - Tetanus Immunizations Tetanus Immunization: Unknown - Past Medical History & Family History Past Medical History?: Yes - Past Social History Smoking Status: Former Smoker - CARDIAC Hx Cardiac Disorders: Yes (AK) - PULMONARY Hx Chronic Obstructive Pulmonary Disease (COPD): Yes - NEUROLOGICAL HX Cerebrovascular Accident: Yes - HEENT Hx HEENT Problems: Yes (WEARS RX GLASSES) Hx Epistaxis: Yes - RENAL Hx Renal Failure: Yes (ESRD on Hemo) - ENDOCRINE/METABOLIC Hx Diabetes Mellitus Type 2: Yes (IDDM) - HEMATOLOGICAL/ONCOLOGICAL Hx Cancer: Yes (gastric) - INTEGUMENTARY Hx Dermatological Problems: No - MUSCULOSKELETAL/RHEUMATOLOGICAL Hx Falls: No - GASTROINTESTINAL Hx Gastrointestinal Disorders: Yes - GENITOURINARY/GYNECOLOGICAL Hx Reproductive Disorders: No - PSYCHIATRIC Hx Psychophysiologic Disorder: No Hx Emotional Abuse: No Hx Substance Use: No - SURGICAL HISTORY Hx Cholecystectomy: Yes Hx Coronary Stent: Yes (x1) Other/Comment: AV shunt placement. - ANESTHESIA Hx Anesthesia Reactions: No Hx Malignant Hyperthermia: No Meds Allergies/Adverse Reactions: Allergies Allergy/AdvReac Type Severity Reaction Status Date / Time No Known Allergies Allergy Verified 12/01/16 17:02 Physical Exam - Constitutional Appears: No Acute Distress - Head Exam Head Exam: ATRAUMATIC, NORMAL INSPECTION, NORMOCEPHALIC - Eye Exam Eye Exam: EOMI, Normal appearance, PERRL Pupil Exam: NORMAL ACCOMODATION, PERRL - ENT Exam ENT Exam: Mucous Membranes Moist, Normal Exam - Respiratory Exam Respiratory Exam: Decreased Breath Sounds, NORMAL BREATHING PATTERN. absent: Wheezes - Cardiovascular Exam Cardiovascular Exam: REGULAR RHYTHM, +S1, +S2 - GI/Abdominal Exam GI & Abdominal Exam: Normal Bowel Sounds, Soft. absent: Tenderness - Extremities Exam Extremities exam: Positive for: normal inspection - Neurological Exam Neurological exam: Altered - Psychiatric Exam Psychiatric exam: Normal Affect, Normal Mood - Skin Skin Exam: Dry, Intact, Normal Color, Warm Results - Vital Signs Recent Vital Signs: Last Vital Signs Temp 99.2 F 12/01/16 09:45 Pulse 83 12/01/16 12:32 Resp 18 12/01/16 12:32 BP 173/98 H 12/01/16 12:32 Pulse Ox 93 L 12/01/16 12:32 - Labs Result Diagrams: 12/01/16 10:00 12/01/16 10:00 Labs: Laboratory Results - last 24 hr 12/01/16 12/01/16 12/01/16 14:00 14:00 14:00 PT 11.7 INR 1.08 APTT 27.8 pO2 214 H VBG pH 7.52 H VBG pCO2 35.0 L VBG HCO3 28.6 H VBG Total CO2 29.7 H VBG O2 Sat (Calc) 99.5 H VBG Base Excess 5.5 H VBG Potassium 3.7 Sodium 138.0 Chloride 103.0 Glucose 125 H Lactate 1.2 FiO2 21.0 Lactic Acid 1.1 Venous Blood Potassium 3.7 Assessment & Plan - Assessment and Plan (Free Text) Assessment: 85Y AA M with PMH CVA, ESRD on HD (MWF), dementia, CAD s/p stent, DM, MVP, GI bleed, gastric cancer who was admitted for complaints of SOB and AMS 2/2 fluid overload vs PNA. Dementia with agitation Baseline AOx2 Aricept Risperidone PRN Monitor SOB fluid overload vs pna cefepime and vanco in ED HD today continue to monitor fu cbc, cifuentes cx, CXR, procalcitionin ID following Nephro following Chronic constipation Dulcolax Miralax Linzess Monitor Anemia/Hx GI bleed Avoid NSAIDS, anticoagulants Contraindications to VTE ppx ESRD on HD HD (MWF) For HD today Renagel Nephro-Vit Folic Acid Vit D miralax Nephro following DM ISS Levemir Accuchecks HTN Lopressor Cozaar Imdur Bystolic Monitor COPD Tessalon Perles Xopenex Mucomyst Chest PT Hx Glaucoma Latanoprost Hx of BPH Flomax GI/DVT ppx SCDs Protonix Contraindications to VTE ppx 2/2 high risk of GI bleed HHD/renal on HD diet Supplements PT/OT OOBTC Activity as nima <Zeyad Nazario U - Last Filed: 12/15/16 21:52> Results - Vital Signs Recent Vital Signs: Last Vital Signs Temp 97.6 F 12/04/16 09:15 Pulse 76 12/04/16 09:15 Resp 20 12/04/16 09:15 BP 137/73 12/04/16 09:15 Pulse Ox 98 12/04/16 09:15 - Labs Result Diagrams: 12/03/16 08:30 12/03/16 08:30 Attending/Attestation - Attestation I have personally seen and examined this patient.: Yes I have fully participated in the care of the patient.: Yes I have reviewed all pertinent clinical information: Yes
--- NOTE | 2016-12-01 15:01 | CON ---
DATE: 12/01/2016 REASON FOR CONSULTATION: Shortness of breath, cough, ESRD. HISTORY OF PRESENT ILLNESS: An 86-year-old male, well known to me from outpatient hemodialysis, was brought to the emergency room by family members because of shortness of breath. The patient was recently discharged from the Transitional Care Unit when he was admitted for a non-ST elevation IN, altered mental status. As per the ER note, the patient was found to be dyspneic when he was climbing stairs. No history of fever or cough. No history of vomiting. The patient is slightly disoriented at this time. Appears in mild respiratory distress. PAST MEDICAL AND SURGICAL HISTORY: NIDDM, hypertension, ESRD, CAD, dementia, GI bleed, anemia, hyperlipidemia, recent non-ST elevation IN, pneumonia. FAMILY HISTORY: Noncontributory. SOCIAL HISTORY: Ex-smoker, no alcohol use, no IV drug abuse. ALLERGIES: NO KNOWN DRUG ALLERGIES. MEDICATIONS: Omeprazole, insulin, Imdur, Tylenol, losartan 100 daily, Flomax 0.4, Bystolic 5, Aricept, aspirin, Renagel, folic acid, cholecalciferol, Lipitor, Linzess, Risperdal. REVIEW OF SYSTEMS: Patient is unable to cooperate with systems review. PHYSICAL EXAMINATION: GENERAL: Elderly male lying in bed, in mild respiratory distress. VITAL SIGNS: Blood pressure 173/98, heart rate 83, respiratory rate 18, T-max is 99.2. HEENT: Normocephalic, atraumatic, positive pallor. NECK: Supple, no JVD. LUNGS: Bilateral equal air entry, bilateral crackles at bases one-third up CARDIAC: S1 and S2, regular rate and rhythm, no murmur, no rub. ABDOMEN: Obese, distended, soft, nontender, bowel sounds present. EXTREMITIES: No lower extremity edema. INTAKE AND OUTPUT: Not charted. LABORATORY DATA: WBC 9.4, hemoglobin 10.7, hematocrit 32, platelets 245. Sodium 141, potassium 4.6, chloride 98, CO2 23, BUN 53, creatinine 6.5, glucose 138, calcium 9.6, phosphorus 3.7 magnesium 2.1, AST 40, ALT 32, albumin 3.9. ASSESSMENT/PLAN: 1. Decompensated congestive heart failure, volume overload. 2. Respiratory distress. 3. Hypertension. 4. ?Pneumonia. 5. Non-insulin dependant diabetes mellitus. 6. End-stage renal disease. 7. Dementia. 8. Anemia of chronic disease. PLAN: 1. Urgent dialysis, ultrafiltrate about 4-1/2 kg. 2. Reassess after dialysis. 3. Repeat chest x-ray after dialysis. 4. Empiric antibiotics? 5. Continue antihypertensives. 6. Continue phosphate binders. 7. Continue outpatient hypoglycemic regimen. Brinda Ibarra MD
--- NOTE | 2016-12-01 17:36 | CT ---
PROCEDURE: CT Chest without contrast HISTORY: ??RLL PNEUMONIA COMPARISON: None. TECHNIQUE: Contiguous axial images were obtained through the chest without intravenous contrast enhancement. Sagittal and coronal reconstructions were performed. Radiation dose (DLP): 457.36 MGy-cm. This CT exam was performed using one or more of the following dose reduction techniques: Automated exposure control, adjustment of the mA and/or kV according to patient size, and/or use of iterative reconstruction technique. FINDINGS: LUNGS: There is patchy ground-glass attenuation and interlobular septal thickening in the upper lobes. There is also honeycombing, centrilobular and paraseptal emphysema in the upper lobes there is confluent airspace disease in both lower lobes. MEDIASTINUM: The aorta is not dilated. No aneurysm. Normal sized heart. Main pulmonary artery unremarkable. There is prominent central vasculature and diffuse pulmonary venous congestion. No lymphadenopathy. There at once atherosclerotic calcifications in the aortic arch and coronary arteries. PLEURA: Large bilateral pleural effusions, worse on the right. No pneumothorax. BONES: No fracture. No destructive lesion. Multilevel degenerative disc disease. UPPER ABDOMEN: Both adrenal glands are normal in size. There are simple cysts in the visualized kidneys the OTHER FINDINGS: None. IMPRESSION: 1. Bilateral large pleural effusions, worse on the right. Confluent airspace disease in the lower lobes concerning for pneumonia. 2. Fibrotic changes in the upper lobes with centrilobular and paraseptal emphysema. 3. Ground-glass attenuation in the upper lobes likely represents alveolar pulmonary edema.
--- NOTE | 2016-12-01 17:41 | CARD ---
APPROVED REPORT EKG Measurement Heart [id number] <Conclusion> Sinus rhythm with 1st degree AV block Left axis deviation Right bundle branch block Abnormal ECG
[2016-12-01 17:45] VITALS: BMI 22.6
[2016-12-01] MEDS ORDERED: Pneumococcal 23-Valent Vaccine IM ONE (17:45)
--- NOTE | 2016-12-01 17:45 | HP ---
DATE: 12/01/2016 HISTORY OF PRESENT ILLNESS: The patient is an 86-year-old elderly -A[place] female who was brought to the [facility] Emergency Room by [facility]. According to the ER, [facility], the patient came to the emergency room with shortness of breath. The patient was recently discharged from transitional care unit. According to the ER physician evaluation, the patient came to the emergency room with EMS accompanied by complaining of shortness of breath, unable to ambulate, and the patient has been feeling progressively shortness of breath. REVIEW OF SYSTEMS: A 13-system review was done, pertinent positive negative dictated above. CODE STATUS: Full code. LIVING WILL: Advance directive none. ALLERGIES: NONE. Height is 5 feet 9 inches. Weight is 153. BMI 26 HOME MEDICATIONS: Reviewed include Suzanna-Jaylin 1 tablet daily, Travatan eyedrops, Prilosec 20-40 mg, Levemir 5 units subcu daily, Imdur 120 mg daily, Tylenol p.r.n. 650 mg, Cozaar 100 mg, Tessalon 100-200 mg three times a day, Flomax 0.4 mg daily, Bystolic 5 mg daily, Aricept 10 mg at bedtime, Ecotrin 81 mg daily, Renagel 800 mg three times a day, folic acid 1 mg daily, Drisdol 50,000 weekly, Lipitor 40 mg daily, Linzess 145 mcg daily, Risperdal 0.25 twice a day. SOCIAL HISTORY: Negative for alcohol. Negative for communicable transmissible disease. Positive for former smoker. OCCUPATIONAL HISTORY: Elderly disabled male. PAST MEDICAL AND SURGICAL HISTORY: History of cerebral infarct; history of dementia with behavioral disturbances; history of poor compliance; history of gastroesophageal reflux; history of coronary artery disease; history of recurrent multiple non-ST elevation myocardial infarction; history of coronary angioplasty; history of gastric carcinoma status post gastrectomy; history of insulin requiring diabetes mellitus; history of angina; history of hypertension; history of prostatic hypertrophy; history of dementia; history of end-stage renal disease, hemodialysis dependent via the left upper extremity AV fistula three times a week; history of hypovitaminosis D, history of dyslipidemia; history of chronic constipation; history of pulmonary arterial hypertension; history of history of anemia; history of gastrointestinal bleeding; history of multiple packed red blood cell transfusion; history of well-controlled insulin-requiring diabetes mellitus; history of dyslipidemia; history of recurrent pneumonia; history of normocytic iron-deficiency anemia, status post multiple packed red blood cell transfusion; history of fecal impaction and constipation; history of atelectasis; history of osteopenia; history of degenerative joint disease; history of inguinal hernias; history of bibasilar atelectasis; history of bilateral renal cyst; history of prostatomegaly; history of osteopenia; history of chronic microvascular ischemic disease of the brain; history of gastritis; history of left ventricular ejection fraction of 45%; history of coronary artery disease with 50%-60% stenosis of the mid LAD and 60% stenosis of the distal LAD; history of subtotal occlusion of the obtuse marginal branch with thrombosis in the proximal segment; history of triple-vessel disease; history of cardiac catheterization done in 04/2016, showing ejection fraction of 45% with 70% stenosis of the mid LAD; history of right coronary artery ostial occlusion, chronic; history of successfully angioplasty and stent placement of the mid left anterior descending lesion with a bare metal stent; history of pulmonary arterial hypertension with right ventricular systolic pressure of 40 mmHg; history of hypertensive cardiovascular disease; history of aortic stenosis, mild; history of gastric erosion; history of gastritis and hiatal hernia; history of bilateral diffuse cerebral dysfunction; history of left upper extremity AV fistula placement. PHYSICAL EXAMINATION: VITAL SIGNS: T-max 99.2, pulse of 82-83, blood pressure 157/100, 173/98, respiration 18-22, O2 sat is 89%-93%. GENERAL: The patient was initially seen in the ER bed. The patient is lying in the bed in dialysis. The patient is alert, awake, oriented x2. The patient is able to move upper lower extremity without assistance. HEENT: Head is normocephalic, atraumatic. Pinkish pale conjunctiva. Anicteric sclera. NECK: Soft carotid bruits. CHEST: Kyphosis. LUNGS: Positive crackles and rales bilaterally, positive crepitus. CARDIOVASCULAR: Shows S1, S2, regular rhythm. Positive systolic murmur left sternal border, right second intercostal space left sternal border. ABDOMEN: Soft. Positive bowel sound. GENITALIA: Male. RECTAL: Deferred. EXTREMITIES: Shows positive left upper extremity AV fistula. Positive thrill. The patient is in the process of getting dialysis done. Lower extremity shows no pitting edema. No calf tenderness. No Homans' sign. NEUROLOGIC: The patient is alert, awake, oriented x2. The patient is able to move upper lower extremity without assistance. Gait examination is not tested. Neuro examination is limited. Cranial nerves II-XII limited. The patient is able to move upper lower extremity without assistance. VASCULAR: Palpable pulses of the lower extremity. The patient is in the process of getting hemodialysis done at present. The patient was seen in hemodialysis unit. The patient was seen lying. LABORATORY: The patient's diagnostics were reviewed. WBC count 9.4, granulocytes 74, hemoglobin/hematocrit 10.7 and 32, and platelet 245. PT/PTT was normal. VBG lactate 2.0. Sodium 141, potassium 4.6, chloride 98, CO2 of 23, anion gap of 25, BUN 53, creatinine 6.5, GFR 10, glucose 138 and 123. LFTs are normal. Troponin 0.07. BNP greater than 85,000. Chest x-ray films were reviewed. It actually appears that the patient is cardiomegaly and volume overload rather than pneumonia picture with vascular congestion and vascular markings that are increased. There is prominence of the right hilum. The patient's EKG shows sinus rhythm, left anterior hemiblock, right bundle-branch block, bifascicular block. The patient was seen in the emergency room by the ER physician. The patient was given antibiotics. The patient was given cefepime 2 g and vancomycin 1 g. In the emergency room, the patient was sent for dialysis right away. IMPRESSION: 1. Shortness of breath with weakness and recurrent falls. 2. Severe deconditioning and gait dysfunction. 3. Low grade fever. 4. Questionable right lower lobe chronic pneumonia and infiltrate. 5. Volume overload with pulmonary vascular congestion. 6. Hypertension. 7. Transient hypoxemia. 8. Normocytic anemia with granulocytosis. 9. End-stage renal disease, hemodialysis dependent. 10. Increased anion gap metabolic acidosis. 11. Insulin-requiring diabetes mellitus. 12. Indeterminate troponin. 13. Possible right-sided diastolic congestive heart failure with elevated brain natriuretic peptide and pulmonary vascular congestion and possible right lower lobe pneumonia. 14. Bifascicular block, left anterior hemiblock, and right bundle-branch block. 15. Angina. 16. Coronary artery disease with multiple non-ST elevation myocardial infarction. 17. History of hypertension. 18. Prostate hypertrophy. 19. Dementia. 20. Hypovitaminosis D. 21. Dyslipidemia. 22. Constipation. 23. Behavioral disorder. PLAN: At this time, the patient has been given 2 g of cefepime and 1 g of vancomycin in the emergency room. The patient was seen in the dialysis. The patient has been ordered lactic acid. Blood cultures, urine cultures ordered. Consultation with Infectious Disease, Nephrology. Case referred to case management, PCU was ordered, procalcitonin level ordered. The patient has been started on Mucomyst nebulizer and Xopenex nebulizer every 6 hours, Aricept 10 mg at bedtime, Cozaar 100 mg daily, vitamin D 50,000 weekly, Ecotrin 81 mg daily, Flomax 0.4 mg daily, folic acid 1 mg daily, Imdur 120 mg daily, Levemir 5 units subcu daily, Linzess 145 mcg daily or MiraLax 17 g twice a day, Lipitor 40 mg daily, Bystolic 5 mg daily or Lopressor 25 mg q.12, Nephro-Jaylin 1 tablet daily, Protonix 40 mg daily, Renagel 800 mg three times a day, Risperdal 0.25 mg twice a day, Tessalon Perles will be ordered 200 mg three times a day. The patient will be resumed on Xalatan eye drops. The patient has been ordered CAT scan of the chest. The patient has been ordered out of bed physical therapy, occupational therapy. At present, the patient has been seen in the dialysis. The patient has also been seen by the early intervention school psychologist. The patient will be admitted for further management, treatment evaluation. At present, the patient's further management is dependent upon the patient's clinical condition, hemodynamic status and as per the patient response to therapeutic intervention, and as per Infectious Disease and Nephrology recommendation. Dictated and electronically signed, not read. Zeyad Nazario MD [email or web address]
[2016-12-01] MEDS: Multivitamin Vitamin B Complex (Nephro-Vite) Tab PO SCH (18:30)
[2016-12-01] MEDS: Levalbuterol 0.63 MG/3 ML Inhal Soln UD IH SCH ×2 (18:31→19:35)
[2016-12-01] MEDS: Acetylcysteine 20% Inhal Soln (4ml) IH SCH ×2 (18:31→19:35)
[2016-12-01] MEDS: Insulin Detemir 100 units/ml Vial (Levemir) SC SCH (18:31)
[2016-12-01] MEDS: POLYETHYLENE GLYCOL 3350 17 GM/Dose PACKET PO SCH (18:31)
[2016-12-01] MEDS: Meropenem 500 MG in Sodium Chloride 0.9% 100 ML IVPB SCH (22:28)
[2016-12-02] MEDS: Insulin Lispro (humaLOG) MEDIUM Coverage SC SCH ×4 (00:05→23:46)
[2016-12-02] MEDS: Latanoprost 2.5 ml Opht Soln OU SCH ×2 (00:05→23:47)
[2016-12-02] MEDS: Levalbuterol 0.63 MG/3 ML Inhal Soln UD IH SCH ×4 (02:12→19:49)
[2016-12-02] MEDS: Acetylcysteine 20% Inhal Soln (4ml) IH SCH ×4 (02:12→19:49)
[2016-12-02] MEDS: Pantoprazole 40 mg EC Tab PO SCH (05:51)
[2016-12-02] MEDS: Meropenem 500 MG in Sodium Chloride 0.9% 100 ML IVPB SCH ×2 (09:40→23:46)
[2016-12-02] MEDS: Multivitamin Vitamin B Complex (Nephro-Vite) Tab PO SCH (09:40)
[2016-12-02] MEDS: Insulin Detemir 100 units/ml Vial (Levemir) SC SCH (09:40)
[2016-12-02] MEDS: POLYETHYLENE GLYCOL 3350 17 GM/Dose PACKET PO SCH ×2 (09:41→20:47)
--- NOTE | 2016-12-02 10:05 | CP.PCM.PN ---
<Caleb Aguirre - Last Filed: 12/02/16 13:54> Subjective - Date & Time of Evaluation Date of Evaluation: 12/02/16 Time of Evaluation: 10:02 - Subjective Subjective: Medicine Progress note. Dr. Nazario Pt seen and examined at bedside. No acute events overnight. Patient had dialysis yesterday. Has a better appetite this morning. Denies any complaints. No CP/SOB. no N/V/D. No Abd pain. No Headaches, no dizziness Objective - Vital Signs/Intake and Output Vital Signs (last 24 hours): Temp Pulse Resp BP Pulse Ox 98.1 F 78 20 132/67 100 12/02/16 05:56 12/02/16 05:56 12/02/16 05:56 12/02/16 05:56 12/02/16 05:56 Intake and Output: 12/02/16 12/02/16 06:59 18:59 Intake Total 200 Output Total 0 Balance 200 - Medications Medications: Current Medications Acetaminophen (Tylenol 325mg Tab) 650 mg PO Q6H PRN PRN Reason: TEMP>=99.5F Acetylcysteine (Acetylcysteine 20%) 4 ml IH [id number] [facility] [place] Last Admin: 12/02/16 07:39 Dose: Not Given Aspirin (Ecotrin) 81 mg PO DAILY [facility] Last Admin: 12/02/16 09:40 Dose: 81 mg Atorvastatin Calcium (Lipitor) 40 mg PO DIN [facility] [place] Last Admin: 12/01/16 18:30 Dose: 40 mg Benzonatate (Tessalon Perles) 200 mg PO TID [facility] [place] Last Admin: 12/02/16 09:39 Dose: 200 mg Donepezil HCl (Aricept) 10 mg PO HS [facility] [place] Last Admin: 12/01/16 21:29 Dose: Not Given Ergocalciferol (Drisdol 50,000 Intl Units Cap) 1 cap PO SAT [facility] [place] Folic Acid (Folic Acid) 1 mg PO DAILY [facility] Last Admin: 12/02/16 09:40 Dose: 1 mg Meropenem 500 mg/ Sodium (Chloride) 100 mls @ 100 mls/hr IVPB Q12 FRANCISCO JAVIER PRN Reason: Protocol Stop: 12/08/16 22:01 Last Admin: 12/02/16 09:40 Dose: 100 mls/hr Doxycycline Hyclate 100 mg/ (Sodium Chloride) 100 mls @ 100 mls/hr IVPB Q12 FRANCISCO JAVIER PRN Reason: Protocol Last Admin: 12/01/16 21:16 Dose: 100 mls/hr Insulin Detemir (Levemir) 5 unit SC DAILY [facility] [place] Last Admin: 12/02/16 09:40 Dose: 5 unit Insulin Human Lispro (Humalog Med) 0 units SC ACHS FRANCISCO JAVIER PRN Reason: Protocol Last Admin: 12/02/16 08:52 Dose: Not Given Isosorbide Mononitrate (Imdur) 120 mg PO DAILY [facility] [place] Last Admin: 12/02/16 09:38 Dose: 120 mg Latanoprost (Xalatan Opht) 1 ml OU HS [facility] [place] Last Admin: 12/02/16 00:05 Dose: Not Given Levalbuterol HCl (Xopenex) 0.63 mg IH [id number] [facility] [place] Last Admin: 12/02/16 07:40 Dose: Not Given Losartan Potassium (Cozaar) 100 mg PO DAILY [facility] [place] Last Admin: 12/02/16 09:38 Dose: 100 mg Pantoprazole Sodium (Protonix Ec Tab) 40 mg PO 0600 [facility] [place] Last Admin: 12/02/16 05:51 Dose: 40 mg Polyethylene Glycol (Miralax) 17 gm PO BID [facility] [place] Last Admin: 12/02/16 09:41 Dose: 17 gm Risperidone (Risperdal Tab) 0.25 mg PO BID [facility] [place] PRN Reason: Protocol Last Admin: 12/02/16 09:39 Dose: 0.25 mg Sevelamer HCl (Renagel) 800 mg PO TID [facility] [place] Last Admin: 12/02/16 09:37 Dose: 800 mg Tamsulosin HCl (Flomax) 0.4 mg PO DAILY [facility] [place] Last Admin: 12/02/16 09:38 Dose: 0.4 mg Vitamin B Complex/Vit C/Folic Acid (Nephro-Jaylin) 1 tab PO DAILY [facility] [place] Last Admin: 12/02/16 09:40 Dose: 1 tab - Labs Labs: PT 11.7 Seconds (9.9-11.8) 12/01/16 14:00 INR 1.08 (0.93-1.08) 12/01/16 14:00 APTT 27.8 Seconds (23.7-30.8) 12/01/16 14:00 - Constitutional Appears: Well, Non-toxic, No Acute Distress, Chronically Ill - Head Exam Head Exam: ATRAUMATIC, NORMAL INSPECTION, NORMOCEPHALIC - Eye Exam Eye Exam: EOMI, Normal appearance - ENT Exam ENT Exam: Mucous Membranes Moist - Neck Exam Neck Exam: Full ROM, Normal Inspection - Respiratory Exam Respiratory Exam: Decreased Breath Sounds (diffusely decreased breath sounds. No increased work of breathing. ). absent: Accessory Muscle Use, Wheezes Additional comments: No apparent wheezes, rhales or rhonci. - Cardiovascular Exam Cardiovascular Exam: RRR. absent: JVD - GI/Abdominal Exam GI & Abdominal Exam: Soft. absent: Distended, Firm, Guarding, Tenderness - Extremities Exam Extremities Exam: Normal Inspection. absent: Calf Tenderness, Pedal Edema - Back Exam Back Exam: NORMAL INSPECTION. absent: paraspinal tenderness - Neurological Exam Neurological Exam: Alert, Awake - Psychiatric Exam Psychiatric exam: Normal Affect, Normal Mood - Skin Skin Exam: Dry, Intact, Normal Color, Warm Assessment and Plan - Assessment and Plan (Free Text) Assessment: 85yo M with PMHx including CVA, ESRD on HD (MWF), dementia, CAD s/p stent, DM, MVP, GI bleed, gastric cancer who was admitted for complaints of SOB and AMS 2/ 2 fluid overload vs PNA. 1. SOB fluid overload vs pna vs. significant Pleural effusion ID following Doxycycline IV Meropenem IV Tessalon perls CT Chest - Ground glass opacities. R greater than L large pleural effusion Will request IR eval for possible Thoracenthesis today Fu Blood cx Repeat CXR in AM procalcitionin elevated Nephro following 2. Dementia Patient with some agitation yesterday. Pleasant this morning Baseline AOx2 Aricept Risperidone continue to monitor 3. Chronic constipation Miralax Monitor 4. Anemia/Hx GI bleed Avoid NSAIDS, anticoagulants Contraindications to VTE ppx 5. ESRD on HD HD (MWF) Renagel Nephro-Vit Folic Acid Vit D Nephro following. Possible repeat HD session today 6. DM ISS Levemir Accuchecks 7. HTN Cozaar Imdur Monitor 8. COPD Tessalon Perles Xopenex Mucomyst 9. Hx Glaucoma Latanoprost 10. Hx of BPH Flomax 11. PPx SCDs Protonix Contraindications to VTE ppx 2/2 high risk of GI bleed Discussed case with Dr. Aravind Aguirre PGY1 <Zeyad Nazario U - Last Filed: 12/15/16 21:53> Objective - Vital Signs/Intake and Output Vital Signs (last 24 hours): Temp Pulse Resp BP Pulse Ox 97.6 F 76 20 137/73 98 12/04/16 09:15 12/04/16 09:15 12/04/16 09:15 12/04/16 09:15 12/04/16 09:15 - Labs Labs: 12/03/16 08:30 12/03/16 08:30 PT 11.7 Seconds (9.9-11.8) 12/01/16 14:00 INR 1.08 (0.93-1.08) 12/01/16 14:00 APTT 27.8 Seconds (23.7-30.8) 12/01/16 14:00 Attending/Attestation - Attestation I have personally seen and examined this patient.: Yes I have fully participated in the care of the patient.: Yes I have reviewed all pertinent clinical information, including history, physical exam and plan: Yes
[2016-12-02 10:15] LABS: BASO # 0.04 K/mm3 (0.0-2.0); BASO % 0.4 % (0.0-3.0); EOS # 0.2 (0.0-0.7); EOS % 1.6 % (1.5-5.0); GRAN # 6.56 (1.4-6.5); GRAN % 70.8 % (50.0-68.0); HEMATOCRIT 28.5 % (42.0-52.0); LYMPH # 1.3 (1.2-3.4); LYMPH % 14.2 % (22.0-35.0); MEAN CELL VOLUME 87.7 fl (80.0-105.0); MEAN CORPUSCULAR HEMOGLOBIN 28.3 pg (25.0-35.0); MEAN CORPUSCULAR HGB CONC 32.3 g/dl (31.0-37.0); MEAN PLATELET VOLUME 9.7 fl (7.0-11.0); MONO # 1.2 (0.1-0.6); RED CELL DISTRIBUTION WIDTH 16.8 % (11.5-14.5); WHITE BLOOD COUNT 9.3 10^3/ul (4.5-11.0)
[2016-12-02 10:24] LABS: BILIRUBIN,TOTAL 0.7 mg/dL (0.2-1.3); CALCIUM 8.9 mg/dL (8.4-10.5); MAGNESIUM 2.1 mg/dL (1.7-2.2); POTASSIUM 3.7 mmol/L (3.6-5.0); TOTAL PROTEIN 7.1 g/dL (5.8-8.3)
--- NOTE | 2016-12-02 13:51 | PN ---
DATE: 12/02/2016 SUBJECTIVE: The patient is seen sitting up in bed. He is trying to have lunch. He is mildly short of breath. PHYSICAL EXAMINATION GENERAL: Elderly male sitting in bed. VITAL SIGNS: Blood pressure of 129/70, heart rate of 70, respiratory rate of 20, and temperature 98.3. HEENT: Normocephalic, atraumatic, and positive pallor. NECK: Supple and no JVD. LUNGS: Bilateral air entry and bilateral basilar rales. CARDIAC: S1 and S2. Regular rate and rhythm. No murmur and no rub. Abdomen: Obese, distended, soft, nontender, and bowel sounds present. Extremities: No lower extremity edema. LABORATORY DATA: WBC of 9.3, hemoglobin of 9.2, hematocrit of 28.5, and platelets of 210. Sodium of 140, potassium of 3.7, chloride of 98, CO2 of 31,BUN of 32, creatinine of 5.0, and glucose of 142. Calcium of 8.9, phosphorus of 4.0 magnesium of 2.1, and albumin of 3.5. Blood cultures no growth. MEDICATIONS: List reviewed. DIAGNOSTIC DATA: Chest CT Showing bilateral large pleural effusions, worse on the right,fibrotic changes in the upper lobes, ground glass attenuation in the upper lobes. ASSESSMENT/PLAN 1. Decompensated congestive heart failure, pulmonary edema. 2. [id number] diabetes mellitus. 3. Hypertension. 4. End stage renal disease. 5. Anemia of chronic kidney disease. 6. Dementia. PLAN 1. The patient had dialysis yesterday, we will do a ultrafiltration today, we will try to remove 2 kg. 2. Fluid restriction. 3. Discharge planning Brinda Ibarra MD
--- NOTE | 2016-12-02 19:07 | US ---
PROCEDURE: Attempted Ultrasound guided right thoracentesis. CLINICAL HISTORY: End-stage renal disease. History gastric CA. Small bilateral pleural effusions. Needs thoracentesis. PHYSICIAN(S): Jamin Streeter MD. TECHNIQUE: The relative risks and indications of the procedure were explained to the patient and consent obtained. The patient was placed in a sitting position on the stretcher and sonography of the right chest performed. This revealed a small right pleural effusion. The site was carefully marked. The areas prepped and draped usual sterile fashion. 1 percent xylocaine was used to anesthetize the skin and soft tissues. Approximately 4 passes with various needles was performed. Only a tiny amount of bloody fluid was aspirated. The thoracentesis was not completed. No samples were obtained. IMPRESSION: 1. Attempted ultrasound-guided right thoracentesis. Only a trace amount of bloody fluid was obtained. 2. Effusions can be followed with chest x-ray. If they enlarge, a repeat attempt with ultrasound or CT guidance can be performed.
--- NOTE | 2016-12-02 20:40 | PN ---
DATE: 12/02/2016 LOCATION: The patient is seen in room 263, bed #1. SUBJECTIVE: The patient is seen lying in the bed. The patient is being given daily care by the patient's PCP. OBJECTIVE: GENERAL: The patient is alert, awake, oriented x1 to 2. The patient follow simple commands. VITAL SIGNS: The patient's overnight nurse's notes were reviewed. T max is 99.2. Telemetry shows sinus rhythm, heart rate in 70s and 80s. Blood pressure ranging from 142/78 to 150/84, respiration 18-20, O2 sat is mid to high 90s. The patient is seen lying in the bed. HEAD EXAMINATION: Normocephalic, atraumatic. HEENT: Examination shows pinkish pale conjunctivae. Anicteric sclerae. No oropharyngeal lesion. No neck rigidity. CHEST: Shows soft carotid bruit. Chest examination, kyphosis. LUNGS: Examination shows positive decreased breath sound at the bases. Positive crackles bilaterally, right more than the left, which is slightly decreased and yesterday. CARDIOVASCULAR EXAMINATION: S1, S2, regular rhythm. Positive systolic murmur, right second intercostal space left sternal border, left second intercostal space. ABDOMEN: Soft. Positive bowel sounds. Nontender. GENITALIA: Male. RECTAL: Examination is deferred. EXTREMITIES: Shows no pitting edema, no calf tenderness. No Consuelo's signs. Left upper extremity shows positive AV fistula, positive thrill. Lower extremity shows no pitting edema, no calf tenderness. No Consuelo's sign. VASCULAR EXAMINATION: Palpate pulses. NEUROLOGIC: The patient is alert, awake, oriented x1 to 2. The patient follows simple commands. He is able to move upper and lower extremity without assistance. Gait examination not tested. DIAGNOSTIC DATA: Reviewed.. The patient lab data reviewed. For further details about her diagnostic data, please refer to the resident's progress note.. The patient's CT scan of the chest, chest x-ray, EKG all lab data reviewed from 12/02. IMPRESSION AND PLAN 1. Probably decompensated right-sided diastolic congestive heart failure. 2. Upper lobe sensory lobular and emphysema. 3. Bibasilar airspace disease versus pneumonia versus interstitial pneumonia. 4. Acute exacerbation of right-sided diastolic congestive heart failure with pulmonary hypertension. 5. Bilateral pleural effusion, left more than the right. 6. Degenerative disc disease of the cervical spine. 7. Bilateral renal cyst. 8. Low-grade fever. 9. Severe gait dysfunction. 10. Deconditioning. 11. Normocytic anemia. 12. Granulocytosis. 13. End-stage renal disease, hemodialysis dependent 3 times a week via the left upper extremity arteriovenous fistula. 14. Dementia. 15. Acute exacerbation of dementia with some behavioral disturbances. 16. Encephalopathy. 17. History of poor compliance. 18. History of constipation. 19. History of coronary artery disease, multiple non-ST elevation myocardial infarction, history of angioplasty, history of gastrointestinal bleeding, history of cerebral infarct, history of constipation, history of current acute on chronic pneumonia. 1. Questionable and possible sepsis. 2. Questionable possible systemic inflammatory response syndrome. 3. High-grade fever. 4. Sinus tachycardia. 5. Questionable aspiration pneumonia. 6. Questionable aspiration pneumonia with abnormal lung sounds on clinical examination. 7. Leukocytosis with granulocytosis. 8. Anemia of chronic kidney disease. 9. Insulin-requiring diabetes mellitus. 10. End-stage renal disease, hemodialysis dependent. 11. Recurrent encephalopathy with underlying advanced dementia. 12. History of hypertension. 13. End-stage renal disease, hemodialysis dependent 3 times a week via the left upper extremity AV fistula. 14. Altered mental status and episodic confusion, resolving. 15. Gait dysfunction. 16. Deconditioning. 17. Questionable non-ST elevation myocardial infarction with elevated troponin. 18. Bifascicular block with right bundle-branch block, left anterior hemiblock. 1. Shortness of breath with weakness and recurrent falls. 2. Severe deconditioning and gait dysfunction. 3. Low grade fever. 4. Questionable right lower lobe chronic pneumonia and infiltrate. 5. Volume overload with pulmonary vascular congestion. 6. Hypertension. 7. Transient hypoxemia. 8. Normocytic anemia with granulocytosis. 9. End-stage renal disease, hemodialysis dependent. 10. Increased anion gap metabolic acidosis. 11. Insulin-requiring diabetes mellitus. 12. Indeterminate troponin. 13. Possible right-sided diastolic congestive heart failure with elevated brain natriuretic peptide and pulmonary vascular congestion and possible right lower lobe pneumonia. 14. Bifascicular block, left anterior hemiblock, and right bundle-branch block. 15. Angina. 16. Coronary artery disease with multiple non-ST elevation myocardial infarction. 17. History of hypertension. 18. Prostate hypertrophy. 19. Dementia. 20. Hypovitaminosis D. 21. Dyslipidemia. 22. Constipation. 23. Behavioral disorder. Plan at this time, the patient has been started on IV antibiotics as per infectious disease. The patient is on meropenem IV. The patient is on doxycycline 100 mg p.o. q. IV or p.o. q. 12. The patient has been resumed on most of his home medication. The patient has been ordered Xopenex and Mucomyst nebulizer treatment. The patient has been consulted with infectious disease, Dr. Magdy Diego; nephrology, Dr. Ibarra; and Dr. Jamin Streeter, interventional radiology for evaluation of possible thoracentesis for large pleural effusion, left more than the right. At present, the patient will be considered for DC telemetry to be moved in front of the nursing station. The patient's medications will be continued as per MAY of today which was reviewed. The patient's present management discussed with the medical residents at length. The patient will be followed up closely. Dictated and electronically signed, not read. Zeyad Nazario MD [email or web address]
--- NOTE | 2016-12-02 23:40 | CP.PCM.PN ---
Subjective - Date & Time of Evaluation Date of Evaluation: 12/02/16 Time of Evaluation: 23:39 - Subjective Subjective: pt needs iv acess. Objective - Vital Signs/Intake and Output Vital Signs (last 24 hours): Temp Pulse Resp BP Pulse Ox 98.3 F 70 20 129/70 100 12/02/16 12:00 12/02/16 12:00 12/02/16 12:00 12/02/16 12:00 12/02/16 05:56 - Medications Medications: Current Medications Acetaminophen (Tylenol 325mg Tab) 650 mg PO Q6H PRN PRN Reason: TEMP>=99.5F Acetylcysteine (Acetylcysteine 20%) 4 ml IH [id number] [facility] Last Admin: 12/02/16 19:49 Dose: Not Given Aspirin (Ecotrin) 81 mg PO DAILY [facility] Last Admin: 12/02/16 09:40 Dose: 81 mg Atorvastatin Calcium (Lipitor) 40 mg PO DIN [facility] Last Admin: 12/02/16 20:45 Dose: 40 mg Benzonatate (Tessalon Perles) 200 mg PO TID [facility] Last Admin: 12/02/16 20:46 Dose: 200 mg Donepezil HCl (Aricept) 10 mg PO HS [facility] Last Admin: 12/01/16 21:29 Dose: Not Given Ergocalciferol (Drisdol 50,000 Intl Units Cap) 1 cap PO SAT [facility] Folic Acid (Folic Acid) 1 mg PO DAILY [facility] Last Admin: 12/02/16 09:40 Dose: 1 mg Meropenem 500 mg/ Sodium (Chloride) 100 mls @ 100 mls/hr IVPB Q12 [facility] PRN Reason: Protocol Stop: 12/08/16 22:01 Last Admin: 12/02/16 09:40 Dose: 100 mls/hr Doxycycline Hyclate 100 mg/ (Sodium Chloride) 100 mls @ 100 mls/hr IVPB Q12 [facility] PRN Reason: Protocol Last Admin: 12/02/16 16:28 Dose: Not Given Insulin Detemir (Levemir) 5 unit SC DAILY [facility] Last Admin: 12/02/16 09:40 Dose: 5 unit Insulin Human Lispro (Humalog Med) 0 units SC ACHS [facility] PRN Reason: Protocol Last Admin: 12/02/16 12:11 Dose: 1 units Isosorbide Mononitrate (Imdur) 120 mg PO DAILY [facility] Last Admin: 12/02/16 09:38 Dose: 120 mg Latanoprost (Xalatan Opht) 1 ml OU HS [facility] Last Admin: 12/02/16 00:05 Dose: Not Given Levalbuterol HCl (Xopenex) 0.63 mg IH [id number] [facility] Last Admin: 12/02/16 19:49 Dose: Not Given Losartan Potassium (Cozaar) 100 mg PO DAILY [facility] Last Admin: 12/02/16 09:38 Dose: 100 mg Pantoprazole Sodium (Protonix Ec Tab) 40 mg PO 0600 [facility] Last Admin: 12/02/16 05:51 Dose: 40 mg Polyethylene Glycol (Miralax) 17 gm PO BID [facility] Last Admin: 12/02/16 20:47 Dose: 17 gm Risperidone (Risperdal Tab) 0.25 mg PO BID [facility] PRN Reason: Protocol Last Admin: 12/02/16 20:46 Dose: 0.25 mg Sevelamer HCl (Renagel) 800 mg PO TID [facility] Last Admin: 12/02/16 20:45 Dose: 800 mg Tamsulosin HCl (Flomax) 0.4 mg PO DAILY [facility] Last Admin: 12/02/16 09:38 Dose: 0.4 mg Vitamin B Complex/Vit C/Folic Acid (Nephro-Jaylin) 1 tab PO DAILY [facility] Last Admin: 12/02/16 09:40 Dose: 1 tab - Labs Labs: PT 11.7 Seconds (9.9-11.8) 12/01/16 14:00 INR 1.08 (0.93-1.08) 12/01/16 14:00 APTT 27.8 Seconds (23.7-30.8) 12/01/16 14:00 Assessment and Plan - Assessment and Plan (Free Text) Assessment: 20 guage angiocath inserted in rt lower leg area.
[2016-12-03] MEDS: Pantoprazole 40 mg EC Tab PO SCH (05:36)
--- NOTE | 2016-12-03 05:48 | CON ---
DATE: 12/02/2016 LOCATION: The patient was seen earlier today in 263, bed 1. CHIEF COMPLAINT: Weakness and shortness of breath x1 day. HISTORY OF PRESENT ILLNESS: This is an 86-year-old male with hypertension and dementia, recent hospitalization with a non-STEMI and anemia. The patient was also with end-stage renal disease on hemodialysis, diabetes mellitus, GI bleed, coronary artery disease, cerebrovascular accident, gastric cancer, mitral valve prolapse, who was recently discharged from transitional care with diagnosis of a pneumonia, was given antibiotics. The patient also had a AV shunt placement. PAST MEDICAL HISTORY: Significant for non-STEMI, cerebrovascular accident, coronary artery disease, gastric cancer, mitral valve prolapse, GI bleed, diabetes mellitus, end-stage renal disease on hemodialysis, anemia, dementia, and hypertension. PAST SURGICAL HISTORY: Significant for AV shunt placement. ALLERGIES: PATIENT HAS NO KNOWN ALLERGIES. MEDICATIONS: Noted. REVIEW OF SYSTEMS: Reveals no fevers and no chills. There was shortness of breath. No abdominal pain now, stated some discomfort earlier. No chest pain. No headaches or blurred vision. PHYSICAL EXAMINATION: VITAL SIGNS: Temperature of 99, blood pressure is 112/60, respiratory rate of 22, heart rate of 100. HEENT: Unremarkable. NECK: Supple. LUNGS: Decreased breath sounds. HEART: Normal S1, S2. ABDOMEN: Soft, nontender. No rebound, guarding or masses. LABORATORY DATA: Reveals a white count of 9.4, hemoglobin is 10, and platelets of 245. BUN of 32, creatinine of 5.0. Procalcitonin is 3.27. Blood cultures are no growth. Chest x-ray shows nonspecific findings. The patient did have a CAT scan of the chest yesterday, which revealed bilateral large pleural effusions, worse on the right, confluent airspace disease in the lower lobe concerning for pneumonia, and fibrotic changes in the upper lobe, ground glass attenuation, and Dr. Jamin Streeter's note for a thoracentesis and ultrasound is noted. Dr. Jamin Streeter attempted an ultrasound-guided thoracentesis and only a trace amount of bloody fluid was obtained. ASSESSMENT AND PLAN: An 86-year-old male with hypertension, dementia, anemia, end-stage renal disease, coronary artery disease, recent non-ST elevation myocardial infarction, gastrointestinal bleed, cerebrovascular accident, gastric cancer, mitral valve prolapse, presenting now with tachycardia, dyspnea, and positive infiltrate on CAT scan. Sepsis with right healthcare associated pneumonia with a large effusion. We will treat with meropenem and doxycycline, pending cifuentes-cultures and culture of the thoracentesis, pleural fluid. We will make further recommendations upon availability of the new culture results. Magdy Diego MD
[2016-12-03] MEDS: Acetylcysteine 20% Inhal Soln (4ml) IH SCH ×3 (07:33→19:28)
[2016-12-03] MEDS: Levalbuterol 0.63 MG/3 ML Inhal Soln UD IH SCH ×3 (07:33→19:29)
[2016-12-03] MEDS: Insulin Lispro (humaLOG) MEDIUM Coverage SC SCH ×4 (08:20→21:46)
[2016-12-03 08:54] LABS: BASO # 0.03 K/mm3 (0.0-2.0); BASO % 0.4 % (0.0-3.0); EOS # 0.2 (0.0-0.7); EOS % 3.2 % (1.5-5.0); GRAN # 5.05 (1.4-6.5); GRAN % 69.2 % (50.0-68.0); HEMATOCRIT 26.3 % (42.0-52.0); LYMPH # 1.1 (1.2-3.4); LYMPH % 15.1 % (22.0-35.0); MEAN CELL VOLUME 86.5 fl (80.0-105.0); MEAN CORPUSCULAR HEMOGLOBIN 28.6 pg (25.0-35.0); MEAN CORPUSCULAR HGB CONC 33.1 g/dl (31.0-37.0); MEAN PLATELET VOLUME 10.8 fl (7.0-11.0); MONO # 0.9 (0.1-0.6); MONO % 12.1 % (1.0-6.0); RED CELL DISTRIBUTION WIDTH 16.7 % (11.5-14.5); WHITE BLOOD COUNT 7.3 10^3/ul (4.5-11.0)
[2016-12-03 09:04] LABS: ALB/GLOB RATIO 0.9 (1.1-1.8); BILIRUBIN,TOTAL 0.4 mg/dL (0.2-1.3); CALCIUM 8.6 mg/dL (8.4-10.5); POTASSIUM 3.3 mmol/L (3.6-5.0); TOTAL PROTEIN 6.5 g/dL (5.8-8.3)
[2016-12-03 09:29] LABS: PHOSPHOROUS 2.8 mg/dL (2.5-4.5)
--- NOTE | 2016-12-03 10:58 | CP.PCM.PN ---
<Caleb Aguirre - Last Filed: 12/03/16 11:29> Subjective - Date & Time of Evaluation Date of Evaluation: 12/03/16 Time of Evaluation: 09:00 - Subjective Subjective: Medicine Progress note. Dr. Nazario Pt seen and examined at bedside. No acute events overnight. Patient denies any complaints. No N/V/D. no CP/SOB. No F/C. No Headaches. To scheduled HD today. Objective - Vital Signs/Intake and Output Vital Signs (last 24 hours): Temp Pulse Resp BP Pulse Ox 98.3 F 70 20 129/70 100 12/02/16 12:00 12/02/16 12:00 12/02/16 12:00 12/02/16 12:00 12/02/16 05:56 Intake and Output: 12/03/16 12/03/16 06:59 18:59 Intake Total 120 Balance 120 - Medications Medications: Current Medications Acetaminophen (Tylenol 325mg Tab) 650 mg PO Q6H PRN PRN Reason: TEMP>=99.5F Acetylcysteine (Acetylcysteine 20%) 4 ml IH [id number] [facility] Last Admin: 12/03/16 07:33 Dose: Not Given Aspirin (Ecotrin) 81 mg PO DAILY [facility] Last Admin: 12/02/16 09:40 Dose: 81 mg Atorvastatin Calcium (Lipitor) 40 mg PO DIN [facility] Last Admin: 12/02/16 20:45 Dose: 40 mg Benzonatate (Tessalon Perles) 200 mg PO TID [facility] Last Admin: 12/02/16 20:46 Dose: 200 mg Donepezil HCl (Aricept) 10 mg PO HS [facility] Last Admin: 12/02/16 23:45 Dose: 10 mg Ergocalciferol (Drisdol 50,000 Intl Units Cap) 1 cap PO SAT [facility] Folic Acid (Folic Acid) 1 mg PO DAILY [facility] Last Admin: 12/02/16 09:40 Dose: 1 mg Meropenem 500 mg/ Sodium (Chloride) 100 mls @ 100 mls/hr IVPB Q12 [facility] PRN Reason: Protocol Stop: 12/08/16 22:01 Last Admin: 12/02/16 23:46 Dose: 100 mls/hr Doxycycline Hyclate 100 mg/ (Sodium Chloride) 100 mls @ 100 mls/hr IVPB Q12 [facility] PRN Reason: Protocol Last Admin: 12/02/16 23:46 Dose: 100 mls/hr Insulin Detemir (Levemir) 5 unit SC DAILY [facility] Last Admin: 12/02/16 09:40 Dose: 5 unit Insulin Human Lispro (Humalog Med) 0 units SC ACHS [facility] PRN Reason: Protocol Last Admin: 12/03/16 08:20 Dose: Not Given Isosorbide Mononitrate (Imdur) 120 mg PO DAILY [facility] Last Admin: 12/02/16 09:38 Dose: 120 mg Latanoprost (Xalatan Opht) 1 ml OU HS [facility] Last Admin: 12/02/16 23:47 Dose: Not Given Levalbuterol HCl (Xopenex) 0.63 mg IH [id number] [facility] Last Admin: 12/03/16 07:33 Dose: Not Given Losartan Potassium (Cozaar) 100 mg PO DAILY [facility] Last Admin: 12/02/16 09:38 Dose: 100 mg Pantoprazole Sodium (Protonix Ec Tab) 40 mg PO 0600 [facility] Last Admin: 12/03/16 05:36 Dose: 40 mg Polyethylene Glycol (Miralax) 17 gm PO BID [facility] Last Admin: 12/02/16 20:47 Dose: 17 gm Risperidone (Risperdal Tab) 0.25 mg PO BID [facility] PRN Reason: Protocol Last Admin: 12/02/16 20:46 Dose: 0.25 mg Sevelamer HCl (Renagel) 800 mg PO TID [facility] Last Admin: 12/02/16 20:45 Dose: 800 mg Tamsulosin HCl (Flomax) 0.4 mg PO DAILY [facility] Last Admin: 12/02/16 09:38 Dose: 0.4 mg Vitamin B Complex/Vit C/Folic Acid (Nephro-Jaylin) 1 tab PO DAILY [facility] Last Admin: 12/02/16 09:40 Dose: 1 tab - Labs Labs: 12/03/16 08:30 12/03/16 08:30 PT 11.7 Seconds (9.9-11.8) 12/01/16 14:00 INR 1.08 (0.93-1.08) 12/01/16 14:00 APTT 27.8 Seconds (23.7-30.8) 12/01/16 14:00 - Constitutional Appears: Well, No Acute Distress - Head Exam Head Exam: ATRAUMATIC, NORMAL INSPECTION, NORMOCEPHALIC - Eye Exam Eye Exam: EOMI - ENT Exam ENT Exam: Mucous Membranes Moist - Neck Exam Neck Exam: Full ROM - Respiratory Exam Respiratory Exam: Decreased Breath Sounds. absent: Rales, Rhonchi, Wheezes - Cardiovascular Exam Cardiovascular Exam: RRR. absent: JVD - GI/Abdominal Exam GI & Abdominal Exam: Soft. absent: Distended, Guarding, Rigid, Tenderness - Extremities Exam Extremities Exam: Normal Inspection. absent: Calf Tenderness, Pedal Edema - Back Exam Back Exam: NORMAL INSPECTION - Neurological Exam Neurological Exam: Alert, Awake, Oriented x3 - Psychiatric Exam Psychiatric exam: Normal Affect, Normal Mood - Skin Skin Exam: Dry, Intact, Normal Color, Warm Assessment and Plan - Assessment and Plan (Free Text) Assessment: 85yo M with PMHx including CVA, ESRD on HD (MWF), dementia, CAD s/p stent, DM, MVP, GI bleed, gastric cancer who was admitted for complaints of SOB and AMS 1. SOB fluid overload vs pna vs. significant Pleural effusion ID following Doxycycline IV Meropenem IV will discuss with ID if abx may be stopped Juan keith CT Chest - Ground glass opacities. R greater than L large pleural effusion IR thoracenthesis yesterday. Low output Fu Blood cx F/u Repeat CXR today procalcitionin elevated Nephro following HD today likely decompensated CHF 2. Dementia Baseline AOx2 Aricept Risperidone continue to monitor 3. Chronic constipation Miralax Monitor 4. Anemia/Hx GI bleed Avoid NSAIDS, anticoagulants Contraindications to VTE ppx Hb 8.7 today. 1U prbc to be given during HD today f/u Hb in AM 5. ESRD on HD HD (MWF) Renagel Nephro-Vit Folic Acid Vit D Nephro following. Scheduled HD today 6. DM ISS Levemir Accuchecks 7. HTN Cozaar Imdur Monitor 8. COPD Tessalon Perles Xopenex Mucomyst 9. Hx Glaucoma Latanoprost 10. Hx of BPH Flomax 11. PPx SCDs Protonix Contraindications to VTE ppx 2/2 high risk of GI bleed Discussed case with Dr. Aravind Aguirre PGY1 <Zeyad Nazario U - Last Filed: 12/15/16 21:53> Objective - Vital Signs/Intake and Output Vital Signs (last 24 hours): Temp Pulse Resp BP Pulse Ox 97.6 F 76 20 137/73 98 12/04/16 09:15 12/04/16 09:15 12/04/16 09:15 12/04/16 09:15 12/04/16 09:15 - Labs Labs: 12/03/16 08:30 12/03/16 08:30 PT 11.7 Seconds (9.9-11.8) 12/01/16 14:00 INR 1.08 (0.93-1.08) 12/01/16 14:00 APTT 27.8 Seconds (23.7-30.8) 12/01/16 14:00 Attending/Attestation - Attestation I have personally seen and examined this patient.: Yes I have fully participated in the care of the patient.: Yes I have reviewed all pertinent clinical information, including history, physical exam and plan: Yes
[2016-12-03] MEDS: POLYETHYLENE GLYCOL 3350 17 GM/Dose PACKET PO SCH ×3 (12:43→17:55)
--- NOTE | 2016-12-03 13:41 | RAD ---
HISTORY: CHF/PLEURAL EFFUSION COMPARISON: 12/01/2016 TECHNIQUE: Chest PA and lateral FINDINGS: LUNGS: There is resolution of the previously seen infiltrates and vascular congestion PLEURA: No significant pleural effusion identified. No pneumothorax apparent. CARDIOVASCULAR: Normal. OSSEOUS STRUCTURES: No significant abnormalities. VISUALIZED UPPER ABDOMEN: Normal. OTHER FINDINGS: None. IMPRESSION: There is resolution of the previously seen infiltrates and vascular congestion
[2016-12-03] MEDS: Insulin Detemir 100 units/ml Vial (Levemir) SC SCH (14:04)
[2016-12-03] MEDS: Multivitamin Vitamin B Complex (Nephro-Vite) Tab PO SCH (14:04)
[2016-12-03] MEDS: Meropenem 500 MG in Sodium Chloride 0.9% 100 ML IVPB SCH ×3 (14:06→22:03)
--- NOTE | 2016-12-03 15:55 | PN ---
DATE: 12/03/2016 SUBJECTIVE: The patient is to be seen while patient is getting dialysis because of the acute care dialysis issues. The patient is now being dialyzed in the ICU bed seven. The patient is seen lying in the bed. The patient is alert, awake, responsive. Overnight nurse's notes were reviewed. The patient underwent thoracentesis yesterday which did not reveal much fluid. PHYSICAL EXAMINATION: VITAL SIGNS: T-max 99.2, pulse 70-78, blood pressure 129/70, 132/67, respiration 20, O2 sat 100%. HEENT: The patient's head examination is normocephalic, atraumatic. HEENT examination shows pale conjunctiva. No oropharyngeal lesion. No neck rigidity. Soft carotid bruit. CHEST: Examination kyphosis. LUNGS: Lung examination shows positive rhonchi bilaterally. Positive crepitus. CARDIOVASCULAR: Examination S1, S2, regular rhythm. Positive systolic murmur, right second intercostal space, left sternal border. ABDOMEN: Soft. Positive bowel sound. GENITALIA: Male. RECTAL: Examination is deferred. EXTREMITIES: Show positive left upper extremity AV fistula with dialysis in progress. Lower extremity shows no pitting edema or stone. NEUROLOGIC: The patient is alert, awake, oriented to person and place and he is able to say his name, my name. Body mass index is 21. DIAGNOSTIC DATA: On December 03, 2016, WBC 7.3, hemoglobin/hematocrit has dropped to 8.7, 26.3 from 10.7, 32, platelet 206. Granulocytes 69%. Sodium 138, potassium 3.3, chloride 99, CO2 of 28, anion gap 14, BUN 32, creatinine 4.85, 14, glucose 111, 136, 153, 149, 185, phosphorus 2.8, magnesium 2.0. LFTs are normal. Blood cultures no growth. IMPRESSION AND PLAN 1. Possible and most likely volume overload with decompensated congestive heart failure. 2. Bilateral pleural effusion. 3. Attempted ultrasound-guided right thoracentesis. 4. Bilateral upper lobe patchy ground-glass attenuation and into lobular septal thickening with honeycombing in sensory, lobular, and paraseptal emphysema of the upper lobes with bibasilar lower lobes airspace disease. 5. Diffuse pulmonary vascular congestion and congestive heart failure. 6. Large bilateral pleural effusion, right more than the left. 7. Degenerative disc disease. 8. Bilateral renal cyst. 9. Pulmonary vascular congestion. 10. Bifascicular block. 11. 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 12. Sepsis with healthcare associated pneumonia with bilateral pleural effusion. 13. Dementia with behavioral disturbances. 14. Gait dysfunction. 15. Deconditioning. 1. Probably decompensated right-sided diastolic congestive heart failure. 2. Upper lobe sensory lobular and emphysema. 3. Bibasilar airspace disease versus pneumonia versus interstitial pneumonia. 4. Acute exacerbation of right-sided diastolic congestive heart failure with pulmonary hypertension. 5. Bilateral pleural effusion, left more than the right. 6. Degenerative disc disease of the cervical spine. 7. Bilateral renal cyst. 8. Low-grade fever. 9. Severe gait dysfunction. 10. Deconditioning. 11. Normocytic anemia. 12. Granulocytosis. 13. End-stage renal disease, hemodialysis dependent 3 times a week via the left upper extremity arteriovenous fistula. 14. Dementia. 15. Acute exacerbation of dementia with some behavioral disturbances. 16. Encephalopathy. 17. History of poor compliance. 18. History of constipation. 19. History of coronary artery disease, multiple non-ST elevation myocardial infarction, history of angioplasty, history of gastrointestinal bleeding, history of cerebral infarct, history of constipation, history of current acute on chronic pneumonia. 1. Questionable and possible sepsis. 2. Questionable possible systemic inflammatory response syndrome. 3. High-grade fever. 4. Sinus tachycardia. 5. Questionable aspiration pneumonia. 6. Questionable aspiration pneumonia with abnormal lung sounds on clinical examination. 7. Leukocytosis with granulocytosis. 8. Anemia of chronic kidney disease. 9. Insulin-requiring diabetes mellitus. 10. End-stage renal disease, hemodialysis dependent. 11. Recurrent encephalopathy with underlying advanced dementia. 12. History of hypertension. 13. End-stage renal disease, hemodialysis dependent 3 times a week via the left upper extremity AV fistula. 14. Altered mental status and episodic confusion, resolving. 15. Gait dysfunction. 16. Deconditioning. 17. Questionable non-ST elevation myocardial infarction with elevated troponin. 18. Bifascicular block with right bundle-branch block, left anterior hemiblock. 1. Shortness of breath with weakness and recurrent falls. 2. Severe deconditioning and gait dysfunction. 3. Low grade fever. 4. Questionable right lower lobe chronic pneumonia and infiltrate. 5. Volume overload with pulmonary vascular congestion. 6. Hypertension. 7. Transient hypoxemia. 8. Normocytic anemia with granulocytosis. 9. End-stage renal disease, hemodialysis dependent. 10. Increased anion gap metabolic acidosis. 11. Insulin-requiring diabetes mellitus. 12. Indeterminate troponin. 13. Possible right-sided diastolic congestive heart failure with elevated brain natriuretic peptide and pulmonary vascular congestion and possible right lower lobe pneumonia. 14. Bifascicular block, left anterior hemiblock, and right bundle-branch block. 15. Angina. 16. Coronary artery disease with multiple non-ST elevation myocardial infarction. 17. History of hypertension. 18. Prostate hypertrophy. 19. Dementia. 20. Hypovitaminosis D. 21. Dyslipidemia. 22. Constipation. 23. Behavioral disorder. PLAN: At this time, patient is undergoing dialysis. The patient has been ordered 1 unit of PRBC on dialysis if possible. The patient is awaiting a repeat chest x-ray PA and lateral post thoracentesis. Current consultation infectious disease next nephrology index interventional radiology. The patient's case referred to TCU and case management. CURRENT MEDICATIONS Is Mucomyst nebulizer 4 ml 20% every 6 hours with Xopenex nebulizer 0.63 mg every 6 hours, Aricept 10 mg at bedtime, Cozaar 100 mg daily, Vibramycin 100 mg IV q. 12, Drisdol 50,000 weekly, Ecotrin 81 mg daily Flomax 0.4 mg daily, folic acid 1 mg daily Humalog medium dose a.c. and at bedtime, Imdur 120 mg daily, Levemir 5 units daily, Lipitor 40 mg daily, meropenem 500 mg IV q. 12, MiraLax 17 g twice a day, Nephro-Jaylin 1 tablet daily Protonix 40 mg daily Renagel 800 mg three times a day, Risperdal 0.25 mg twice a day, Tessalon Perles 200 three times a day, Tylenol 650 q. 6 p.r.n. Xalatan eye drop. The patient's repeat chest x-ray PA and lateral has been ordered. ASSESSMENT AND PLAN: The patient is presently on renal diet. The patient has been ordered out of bed. The patient has been ordered transfusion of PRBC. The patient has been ordered physical therapy, occupational therapy. At present, the patient will be considered for discharge. As per the aids social worker notes, the patient has been accepted to [facility] for rehab. Patient's has declined long-term placement. We will consider patient for possible discharge to [facility] under Dr. Tiwari service only after IV antibiotics had stopped and the chest x-ray is negative for pneumothorax and after PRBC transfusion. If patient is cleared for discharge by all subspecialty, patient's discharge medications will be Tylenol 650 q. 6 p.r.n., Ecotrin 81 mg daily, Lipitor 40 mg daily Tessalon 200 3 times a day, vitamin D 50,000 weekly, Aricept 10 mg h.s., folic acid 1 mg daily, Levemir 5 units subcu daily, Imdur 120 mg daily, Lantus 145 mcg daily, Cozaar 100 mg daily, Bystolic 5 mg daily, Prilosec 40 mg daily, Risperdal 0.25 twice a day, Renagel 800 three times a day, Flomax 0.4 mg daily, Travatan eye drops, and Suzanna-Jaylin tablets.. At present, the patient's further management is dependent upon the above clinical condition. The patient's has been explained about patient's declining and decompensating condition for the last few admission. The patient's has been advised on multiple occasions about the patient's need for 24-hour care whether at home or a [facility] facility, but I have not received any responses regarding that. ADDENDUM TO THE IMPRESSION: 1. Hypercalcitoninemia. 2. Acute recurrent on chronic right-sided diastolic congestive heart failure with elevated BMP. Dictated and electronically signed not read. Emelyn Noland BREA
[2016-12-03 16:44] VITALS: PULSE 76; RESP 20
--- NOTE | 2016-12-03 19:18 | CP.PCM.PN ---
Subjective - Date & Time of Evaluation Date of Evaluation: 12/03/16 Time of Evaluation: 11:15 - Subjective Subjective: No SOB currently, no fevers overnight, feeling better. Objective - Vital Signs/Intake and Output Vital Signs (last 24 hours): Temp Pulse Resp BP Pulse Ox 98.3 F 70 20 129/70 100 12/02/16 12:00 12/02/16 12:00 12/02/16 12:00 12/02/16 12:00 12/02/16 05:56 Intake and Output: 12/03/16 12/03/16 06:59 18:59 Intake Total 120 Balance 120 - Medications Medications: Current Medications Acetaminophen (Tylenol 325mg Tab) 650 mg PO Q6H PRN PRN Reason: TEMP>=99.5F Acetylcysteine (Acetylcysteine 20%) 4 ml IH [id number] [facility] Last Admin: 12/03/16 07:33 Dose: Not Given Aspirin (Ecotrin) 81 mg PO DAILY [facility] Last Admin: 12/02/16 09:40 Dose: 81 mg Atorvastatin Calcium (Lipitor) 40 mg PO DIN [facility] Last Admin: 12/02/16 20:45 Dose: 40 mg Benzonatate (Tessalon Perles) 200 mg PO TID [facility] Last Admin: 12/02/16 20:46 Dose: 200 mg Donepezil HCl (Aricept) 10 mg PO HS [facility] Last Admin: 12/02/16 23:45 Dose: 10 mg Ergocalciferol (Drisdol 50,000 Intl Units Cap) 1 cap PO SAT [facility] Folic Acid (Folic Acid) 1 mg PO DAILY [facility] Last Admin: 12/02/16 09:40 Dose: 1 mg Meropenem 500 mg/ Sodium (Chloride) 100 mls @ 100 mls/hr IVPB Q12 [facility] PRN Reason: Protocol Stop: 12/08/16 22:01 Last Admin: 12/02/16 23:46 Dose: 100 mls/hr Doxycycline Hyclate 100 mg/ (Sodium Chloride) 100 mls @ 100 mls/hr IVPB Q12 [facility] PRN Reason: Protocol Last Admin: 12/02/16 23:46 Dose: 100 mls/hr Insulin Detemir (Levemir) 5 unit SC DAILY [facility] Last Admin: 12/02/16 09:40 Dose: 5 unit Insulin Human Lispro (Humalog Med) 0 units SC ACHS [facility] PRN Reason: Protocol Last Admin: 12/03/16 08:20 Dose: Not Given Isosorbide Mononitrate (Imdur) 120 mg PO DAILY [facility] Last Admin: 12/02/16 09:38 Dose: 120 mg Latanoprost (Xalatan Opht) 1 ml OU HS [facility] Last Admin: 12/02/16 23:47 Dose: Not Given Levalbuterol HCl (Xopenex) 0.63 mg IH [id number] [facility] Last Admin: 12/03/16 07:33 Dose: Not Given Losartan Potassium (Cozaar) 100 mg PO DAILY [facility] Last Admin: 12/02/16 09:38 Dose: 100 mg Pantoprazole Sodium (Protonix Ec Tab) 40 mg PO 0600 [facility] Last Admin: 12/03/16 05:36 Dose: 40 mg Polyethylene Glycol (Miralax) 17 gm PO BID [facility] Last Admin: 12/02/16 20:47 Dose: 17 gm Risperidone (Risperdal Tab) 0.25 mg PO BID [facility] PRN Reason: Protocol Last Admin: 12/02/16 20:46 Dose: 0.25 mg Sevelamer HCl (Renagel) 800 mg PO TID [facility] Last Admin: 12/02/16 20:45 Dose: 800 mg Tamsulosin HCl (Flomax) 0.4 mg PO DAILY [facility] Last Admin: 12/02/16 09:38 Dose: 0.4 mg Vitamin B Complex/Vit C/Folic Acid (Nephro-Jaylin) 1 tab PO DAILY [facility] Last Admin: 12/02/16 09:40 Dose: 1 tab - Labs Labs: 12/03/16 08:30 12/03/16 08:30 PT 11.7 Seconds (9.9-11.8) 12/01/16 14:00 INR 1.08 (0.93-1.08) 12/01/16 14:00 APTT 27.8 Seconds (23.7-30.8) 12/01/16 14:00 - Constitutional Appears: Non-toxic, No Acute Distress - Head Exam Head Exam: NORMAL INSPECTION - ENT Exam ENT Exam: Mucous Membranes Moist - Neck Exam Neck Exam: absent: Meningismus - Respiratory Exam Respiratory Exam: Decreased Breath Sounds - Cardiovascular Exam Cardiovascular Exam: +S1, +S2 - GI/Abdominal Exam GI & Abdominal Exam: Soft. absent: Tenderness Assessment and Plan - Assessment and Plan (Free Text) Plan: Assessment sepsis due to HCAP, bilateral lower lobes, on top of bilateral pleural effusion and volume overload dementia history of sepsis from healthcare-associated pneumonia on top of non-ST elevation NH with acute congestive heart failure, clinically improved and S/P treatment history of GI bleeding ESRD on HD cornoary artery disease Cerebrovascular accident Gastric cancer Mitral valve prolapse Plan on Doxycycline and Merrem (day 2 to 3); blood cx have been negative; reviewed CT chest; WBC count is normal - when ready for discharge, we can switch to PO Augmentin and Doxycycline to complete a total 4-7 day course
[2016-12-03] MEDS: Latanoprost 2.5 ml Opht Soln OU SCH (22:00)
[2016-12-04] MEDS: Acetylcysteine 20% Inhal Soln (4ml) IH SCH ×2 (01:40→08:10)
[2016-12-04] MEDS: Levalbuterol 0.63 MG/3 ML Inhal Soln UD IH SCH ×2 (01:40→08:13)
[2016-12-04] MEDS: Pantoprazole 40 mg EC Tab PO SCH (05:41)
[2016-12-04] MEDS: Insulin Lispro (humaLOG) MEDIUM Coverage SC SCH (07:51)
[2016-12-04 09:16] VITALS: BP 137/73; TEMP 97.6; O2SAT 98
[2016-12-04] MEDS ORDERED: Ergocalciferol 50,000 Intl Units Cap PO SCH (10:00)
--- NOTE | 2016-12-04 14:00 | PN ---
DATE: 12/04/2016 SUBJECTIVE: The patient is seen lying in bed. He is awake, he is alert, and he is comfortable. PHYSICAL EXAMINATION: GENERAL: An elderly male lying in bed. VITAL SIGNS: Blood pressure 137/73, heart rate 76, respiratory rate 20, and temperature 97.6. HEENT: Normocephalic and atraumatic. NECK: Supple. No JVD. LUNGS: Bilateral equal air entry, no rales. EXTREMITIES: No lower extremity edema. LABORATORY DATA: No new labs. MEDICATIONS: Medications list reviewed. ASSESSMENT: 1. Status post decompensated congestive heart failure. 2. End-stage renal disease. 3. Hypertension. 4. Ycx-vxjwbgw-lciongmjf diabetes mellitus. 5. History of gastrointestinal bleed in the past. PLAN: 1. Stable dialysis yesterday. 2. Continue physical therapy. 3. No objection to discharge. Brinda Ibarra MD
--- NOTE | 2016-12-06 09:12 | PN ---
DATE: 12/03/2016 SUBJECTIVE: The patient is seen lying in bed. He is awake. He is alert. He is comfortable. He denies any pain. He denies any shortness of breath. PHYSICAL EXAMINATION: GENERAL: Elderly male, lying in bed. VITAL SIGNS: Blood pressure 128/63, heart rate 76, respiratory rate 20 and temperature 98. HEENT: Normocephalic, atraumatic, positive pallor. NECK: Supple. No JVD. LUNGS: Bilateral equal air entry, no rales present. CARDIAC: S1 and S2. Regular rate and rhythm. No murmurs. No rubs. ABDOMEN: Obese, distended, soft and nontender. Bowel sounds present. EXTREMITIES: No lower extremity edema. INTAKE AND OUTPUT: Not charted. LABORATORY DATA: WBC 7.3, hemoglobin 8.7, hematocrit 26 and platelets 206. Sodium 148, potassium 3.3, chloride 99, CO2 of 28, BUN 32, creatinine 4.8, glucose 111, calcium 8.6, phosphorus 2.8, magnesium 2.0 and albumin 3.1. ASSESSMENT: 1. Status post decompensated congestive heart failure, much improved. 2. Hypokalemia. 3. Oak-ajqwgmd-gthxaptme diabetes mellitus. 4. Hypertension. 5. End-stage renal disease. 6. Coronary artery disease. 7. History of gastrointestinal bleed. 8. Severe anemia. PLAN: 1. Dialysis with potassium bath today. 2. Ultrafiltrate kg. 3. Physical therapy. 4. Monitor H and H. 5. P.r.n. . Brinda Ibarra MD
--- NOTE | 2016-12-07 13:58 | PQF SEPSIS ---
12/07/16 Dr. Nazario, Please clarify principal diagnosis--reason for admission after study. Both ID consultants document "sepsis secondary to HCAP" on their notes. You document same, but as #12 on your notes. Do you agree, disagree, undetermined with sepsis as principal dx.? ...If you disagree with sepsis as principal, please indicate principal diagnosis. Thank you. Clarification of your documentation is requested to better reflect the severity of illness and intensity of treatment of your patient. Indicators present [] Temp < 96.8 or > 100.4 [] WBC count > 12,000/mm3 or <000/mm3 or 10% immature neutrophils [] Heart Rate > 90 [] Respiratory Rate > 20 [] Fever or hypothermia [] Chills [] Positive blood cultures [] Hypotension [] Metabolic acidosis (Elevated lactate level, anion gap or reduced blood pH) [] Acute confusion /Altered Mental Status [] Shock [] Other: [] Location in the medical record that reflects the above clinical findings: [] Treatment Provided: [] PHYSICIAN'S RESPONSE Based on your medical judgment of the clinical indicators outlined above, are you treating this patient for a known or suspected: [] Sepsis / Septicemia Please specify organism if known [] [] SIRS (Systemic Inflammatory Response Syndrome) [] Severe Sepsis (Sepsis with Associated Organ Dysfunction) [] Fever of Unknown Origin [] Other, please indicate: [] [] If Unable to Determine, please check the box, sign and date. Present On Admission (POA) Indicator: [] Present at the time of admission [] Not present at the time of admission [] Clinically Undetermined In responding to this query, please exercise your independent professional judgment. The fact that a question is asked does not imply that any particular answer is desired or expected. Thank you for your clarification on this documentation. If you have any questions please call:[ ] * Thank you, [ ] corporate risk analyst BREA
--- NOTE | 2016-12-28 12:41 | DS ---
LOCATION: The patient is seen in room 377, bed 1. HISTORY OF PRESENT ILLNESS: The patient was cleared for discharge by all subspecialties including Nephrology and Infectious Disease for discharge. The patient was discharged after the patient was cleared by all subspecialty. PHYSICAL EXAMINATION: VITAL SIGNS: T-max 97.6, pulse 76, blood pressure 137/73, respiration 20, O2 sat 98%. HEENT: The patient's head examination is normocephalic and atraumatic. HEENT examination shows pinkish pale conjunctivae. Anicteric sclerae. No oropharyngeal lesion. NECK: No neck rigidity. CHEST EXAMINATION: Kyphosis. LUNG EXAMINATION: Shows occasional rhonchi bilaterally. CARDIOVASCULAR EXAMINATION: S1 and S2, regular rhythm. Systolic murmur in the right second intercostal space, left sternal border, left second intercostal space. ABDOMEN: Soft. Positive bowel sounds. GENITALIA: Male. RECTAL EXAMINATION: Deferred. EXTREMITIES: Extremity shows positive left upper extremity AV fistula with positive thrill. Lower extremity shows no pitting edema. No calf tenderness. No Homans sign. NEUROLOGIC: The patient is alert, awake, and responsive, is able to move upper and lower extremity without assistance. DIAGNOSTICS: From 12/04/2016, none. Blood cultures negative. The patient underwent ultrasound-guided thoracentesis, which was unsuccessful without drainage of any fluid. FINAL IMPRESSION, PLAN, AND DISCHARGE DIAGNOSES: 1. Questionable sepsis with right healthcare-associated pneumonia with pleural effusion. 2. Severe deconditioning and gait dysfunction. 3. Shortness of breath, weakness, and recurrent fall. 4. Low-grade fever. 5. Most likely volume overload with pulmonary vascular congestion. 6. Questionable right lower lobe chronic pneumonia and infiltrate. 7. Hypertension. 8. Transient hypoxemia. 9. Normocytic anemia with granulocytosis. 10. End-stage renal disease, hemodialysis-dependent. 11. Increased anion gap, metabolic acidosis in an end-stage renal dialysis patient. 12. Indeterminate troponin. 13. Insulin-requiring diabetes mellitus. 14. Possible right-sided diastolic congestive heart failure with elevated brain natriuretic peptide and pulmonary vascular congestion and possible chronic right-sided lower lobe pneumonia. 15. Bifascicular block with left anterior block, right bundle-branch block. 16. History of coronary artery disease and unstable angina, non-ST elevation myocardial infarction. 17. History of hypertension. 18. Prostatic hypertrophy. 19. Dementia. 20. Hypovitaminosis D. 21. Dyslipidemia. 22. Constipation. 23. Behavioral disorder. 24. Status post decompensated congestive heart failure with end-stage renal disease, hemodialysis dependent. 25. Sepsis due to healthcare-associated bibasilar pneumonia with bilateral pleural effusion and volume overload. 26. Volume overload with decompensated congestive heart failure. 27. Attempted ultrasound-guided right thoracentesis. 28. Bilateral upper lobe patchy ground-glass attenuation with lobular septal thickening and honey combing with lobular and paraseptal emphysema of the upper lobe with bibasilar lower lobe airspace disease. 29. Diffuse pulmonary vascular congestion and congestive heart failure. 30. Bilateral pleural effusion, left more than the right. 31. Degenerative disc disease. 32. Bilateral renal cysts. 33. Dementia with behavioral disturbances. 34. Gait dysfunction. 35. Deconditioning. 36. Probably decompensated right-sided diastolic congestive heart failure. 37. Upper lobe lobular emphysema. 38. Bibasilar airspace disease versus pneumonia versus interstitial pneumonia. 39. Acute exacerbation of recurrent right-sided diastolic congestive heart failure and pulmonary hypertension. 40. Bilateral pleural effusion, left more than the right. 41. Bilateral renal cyst. 42. Low grade fever. 43 End-stage renal disease, hemodialysis-dependent, three times a week via the left upper extremity arteriovenous fistula. 44. Acute exacerbation of dementia with behavioral disturbances. 45. Encephalopathy. 46. History of constipation, history of poor compliance, history of coronary artery disease, history of multiple non-ST elevation myocardial infarction, history of angioplasty, history of gastrointestinal bleeding, history of cerebral infarct, history of jvpvd-ew-dgaypyy pneumonia, history of sinus tachycardia. 47. Questionable aspiration pneumonia with abnormal chest x-ray. 48. Leukocytosis with granulocytosis. 49. Anemia of chronic kidney disease. 50. Recurrent encephalopathy with underlying advanced dementia. 51. Encephalopathy with episodic confusion. 52. Hypokalemia and end-stage renal disease, hemodialysis-dependent patient. 53. Hyperprocalcitoninemia. 54. Bilateral upper lobe patchy ground-glass attenuation and interlobular septal thickening with honeycombing and centrilobular and paraseptal emphysema of the upper lobes with confluent airspace disease in both lower lobe. 54. Diffuse pulmonary vascular congestion. 55. Multilevel degenerative disc disease of the spine. 56. Resolution of the bilateral pulmonary infiltrate and vascular congestion. 57. Bifascicular block with right bundle-branch block and left anterior hemiblock. At present, the patient was cleared for discharge by Infectious Disease and Nephrology. The patient was discharged to [facility] for rehab. The patient was discharged on Augmentin 875 twice a day and doxycycline 100 mg twice a day for a total of 7 days. The patient's discharge medications were Tylenol 650 q.6 p.r.n., Augmentin 875 twice a day for 7 days, aspirin 81 daily, Lipitor 40 mg daily, Tessalon Perles 200 mg 3 times a day. The patient is discharged on vitamin D3 50,000 units weekly, Aricept 10 mg h.s., doxycycline 100 mg twice a day for 7 days, folic acid 1 mg daily, Levemir 5 units subcu daily, Imdur 120 mg daily, Linzess 145 mcg daily, Cozaar 100 mg daily, Bystolic 5 mg daily, Prilosec 40 mg daily, Risperdal 0.25 mg twice a day, Renagel 800 mg three times a day, Flomax 0.4 mg daily, Travatan eye drops and Suzanna-Jaylin 1 tablet daily. The patient is discharged to [facility] under Dr. Nazario's service for subacute rehab after the patient was cleared by Infectious Disease. Dictated and electronically signed, not read. Zeyad Nazario MD
== END 2016-12-04 10:08 | DRG 871 ==
LOC: ED 09:44 → ERH 13:54 → 2RNO 17:36 → OBSVTOIN 12-02 11:49 → ERH 12-02 21:34 → 3RSO 12-02 21:35
PROVIDERS: ADMIT Internal Medicine; ATTEND Internal Medicine
PROC: BB4BZZZ Ultrasonography of Pleura (ICD-10-PCS; 2016-12-02)
PROC: 0W993ZZ Drainage of Right Pleural Cavity, Percutaneous Approach (ICD-10-PCS; principal; 2016-12-02 12:00)
DX: A41.9 Sepsis, unspecified organism (principal); J18.9 Pneumonia, unspecified organism; G93.40 Encephalopathy, unspecified; I50.33 Acute on chronic diastolic (congestive) heart failure; N18.6 End stage renal disease; J44.0 Chronic obstructive pulmonary disease with (acute) lower respiratory infection; E87.2 Acidosis; I27.2 Other secondary pulmonary hypertension; F03.91 Unspecified dementia, unspecified severity, with behavioral disturbance; I13.2 Hypertensive heart and chronic kidney disease with heart failure and with stage 5 chronic kidney disease, or end stage renal disease; I45.2 Bifascicular block; E87.70 Fluid overload, unspecified; E11.22 Type 2 diabetes mellitus with diabetic chronic kidney disease; R65.20 Severe sepsis without septic shock; D63.1 Anemia in chronic kidney disease; Z85.028 Personal history of other malignant neoplasm of stomach; Z86.73 Personal history of transient ischemic attack (TIA), and cerebral infarction without residual deficits; E55.9 Vitamin D deficiency, unspecified; E78.5 Hyperlipidemia, unspecified; E87.6 Hypokalemia; H40.9 Unspecified glaucoma; I25.119 Atherosclerotic heart disease of native coronary artery with unspecified angina pectoris; I34.1 Nonrheumatic mitral (valve) prolapse; I35.0 Nonrheumatic aortic (valve) stenosis; K21.9 Gastro-esophageal reflux disease without esophagitis; K59.09 Other constipation; M50.30 Other cervical disc degeneration, unspecified cervical region; M85.80 Other specified disorders of bone density and structure, unspecified site; N28.1 Cyst of kidney, acquired; N40.0 Benign prostatic hyperplasia without lower urinary tract symptoms; I25.2 Old myocardial infarction; Z99.2 Dependence on renal dialysis; Z95.5 Presence of coronary angioplasty implant and graft; Z90.49 Acquired absence of other specified parts of digestive tract; Z90.3 Acquired absence of stomach [part of]; Z87.891 Personal history of nicotine dependence; Z87.01 Personal history of pneumonia (recurrent); Z79.899 Other long term (current) drug therapy; Z79.84 Long term (current) use of oral hypoglycemic drugs; Z79.82 Long term (current) use of aspirin; Y95 Nosocomial condition; R09.02 Hypoxemia; R29.6 Repeated falls; R04.0 Epistaxis; R40.2412 Glasgow coma scale score 13-15, at arrival to emergency department; I44.0 Atrioventricular block, first degree; Z87.19 Personal history of other diseases of the digestive system; R26.9 Unspecified abnormalities of gait and mobility; R53.81 Other malaise

== ENCOUNTER 2016-12-31 13:15 | Observation (INO) | payer MEDICARE, BC ==
[2016-12-31 13:39] VITALS: BMI 22.8
[2016-12-31 14:19] LABS: BASO # 0.03 K/mm3 (0.0-2.0); BASO % 0.5 % (0.0-3.0); EOS # 0.1 (0.0-0.7); EOS % 1.5 % (1.5-5.0); GRAN # 3.93 (1.4-6.5); GRAN % 59.4 % (50.0-68.0); LYMPH # 1.8 (1.2-3.4); LYMPH % 27.1 % (22.0-35.0); MEAN CELL VOLUME 94.1 fl (80.0-105.0); MEAN CORPUSCULAR HEMOGLOBIN 29.7 pg (25.0-35.0); MEAN CORPUSCULAR HGB CONC 31.5 g/dl (31.0-37.0); MEAN PLATELET VOLUME 10.8 fl (7.0-11.0); MONO # 0.8 (0.1-0.6); MONO % 11.5 % (1.0-6.0); RED CELL DISTRIBUTION WIDTH 21.6 % (11.5-14.5); WHITE BLOOD COUNT 6.6 10^3/ul (4.5-11.0)
[2016-12-31 14:25] LABS: HEMATOCRIT 22.2 % (42.0-52.0)
[2016-12-31 14:28] LABS: ALB/GLOB RATIO 0.9 (1.1-1.8); BILIRUBIN,TOTAL 0.5 mg/dL (0.2-1.3); CALCIUM 8.5 mg/dL (8.4-10.5); POTASSIUM 4.5 mmol/L (3.6-5.0); TOTAL PROTEIN 7.1 g/dL (5.8-8.3)
[2016-12-31 14:29] LABS: INR 1.06 (0.93-1.08); PARTIAL THROMBOPLASTIN TIME 27.8 Seconds (23.7-30.8)
--- NOTE | 2016-12-31 14:36 | RAD ---
HISTORY: cough COMPARISON: 12/03/2016 FINDINGS: LUNGS: No active pulmonary disease. PLEURA: No significant pleural effusion identified, no pneumothorax apparent. CARDIOVASCULAR: Normal. OSSEOUS STRUCTURES: No significant abnormalities. VISUALIZED UPPER ABDOMEN: Normal. OTHER FINDINGS: None. IMPRESSION: No active disease.
[2016-12-31 14:40] LABS: TROPONIN I 0.04 ng/mL
--- NOTE | 2016-12-31 14:47 | ED PDOC ---
Arrival/HPI - General Chief Complaint: Abnormal Labs Time Seen by Provider: 12/31/16 13:41 Historian: Patient - History of Present Illness Narrative History of Present Illness (Text): 12/31/16 14:47 A 86 year old male, whose past medical history includes ESRD with hemodialysis on //, sent into the emergency department low hemoglobin. Patient denies any complaints at this time, states he feels well. Patient denies any fever, chills , nausea, vomiting, abdominal pain, chest pain, shortness of breath/KAHN or any other complaints. Time/Duration: Prior to Arrival Past Medical History - Provider Review Nursing Documentation Reviewed: Yes - Infectious Disease Hx of Infectious Diseases: None - Tetanus Immunization Tetanus Immunization: Unknown - Cardiac Hx Cardiac Disorders: Yes ([place]) Hx Congestive Heart Failure: Yes Hx [place]: Yes Hx Hypertension: Yes - Pulmonary Other/Comment: PLEURA EFFUSION - Neurological Hx Dementia: Yes - HEENT Hx HEENT Disorder: Yes (WEARS RX GLASSES) Hx Glaucoma: Yes - Renal Hx Dialysis: Yes Hx Renal Failure: Yes (ESRD on Hemo) - Endocrine/Metabolic Hx Diabetes Mellitus Type 2: Yes (IDDM) - Hematological/Oncological Hx Anemia: Yes Hx Cancer: Yes (gastric) - Integumentary Hx Dermatological Disorder: No - Musculoskeletal/Rheumatological Hx Falls: No - Gastrointestinal Hx Gastrointestinal Disorders: Yes - Genitourinary/Gynecological Hx Reproductive Disorders: No - Psychiatric Hx Psychophysiologic Disorder: Yes Hx Substance Use: No Other/Comment: DEMENTIA WITH BEHAVIOR DISTURBANCE - Surgical History Hx Cholecystectomy: Yes Hx Coronary Artery Bypass Graft: Yes Hx Coronary Stent: Yes (x1) Other/Comment: AV shunt placement. - Anesthesia Hx Anesthesia: Yes - Suicidal Assessment Feels Threatened In Home Enviroment: No Family/Social History - Physician Review Nursing Documentation Reviewed: Yes Family/Social History: No Known Family HX Smoking Status: Former Smoker Hx Alcohol Use: No Hx Substance Use: No Hx Substance Use Treatment: No Allergies/Home Meds Allergies/Adverse Reactions: Allergies No Known Allergies Allergy (Verified 12/31/16 13:18) Home Medications: Home Meds Medication Instructions Recorded Confirmed Travoprost [Travatan Z] 1 drop BOTHEYES HS 11/23/15 12/31/16 Cholecalciferol [Vitamin D 1000 IU] 50,000 unit PO SAT 01/30/16 12/31/16 Folic Acid 1 mg PO DAILY 04/22/16 12/31/16 Sevelamer [Renagel] 800 mg PO TID 04/22/16 12/31/16 Aspirin [Lo-Dose Aspirin EC] 81 mg PO DAILY 04/28/16 12/31/16 Benzonatate 100 mg PO TID 09/05/16 12/31/16 Losartan [Cozaar] 100 mg PO DAILY 09/05/16 12/31/16 Nebivolol [Bystolic] 5 mg PO DAILY 09/05/16 12/31/16 Tamsulosin [Flomax] 0.4 mg PO DAILY 09/05/16 12/31/16 Vit B Cmplx 3/Folic AC/C/Biot 1 tab PO DAILY 09/05/16 12/31/16 [Suzanna-Jaylin Rx Tablet] Insulin Lispro-LOW [humALOG LOW] See Protocol SC ACHS 12/31/16 12/31/16 Levalbuterol HCl [Xopenex] 3 ml NEB PRN PRN 12/31/16 12/31/16 Pantoprazole [Protonix EC Tab] 40 mg PO DAILY 12/31/16 12/31/16 Polyethylene Glycol 3350 [Miralax] 17 g PO BID 12/31/16 12/31/16 Physical Exam - Physical Exam Narrative Physical Exam (Text): - Review of Systems Constitutional: Normal. absent: Fatigue, Weight Change, Fevers Eyes: Normal ENT: denies sore throat, denies tristhmus Respiratory: Normal. absent: SOB, Cough, Sputum Cardiovascular: absent: Chest Pain, Palpitations, Syncope Gastrointestinal: Normal. absent: Abdominal Pain, Diarrhea, Nausea, Vomiting Genitourinary: Normal. absent: Dysuria, Frequency, Hematuria Musculoskeletal: Normal. absent: Arthralgias, Back Pain, Neck Pain Skin: no rashes, no erythema Neurological: absent: Focal Weakness Endocrine: Normal Hemo/Lymphatic: Normal Psychiatric: No suicidal or homicidal ideations Physical exam Patient appears age appropriate in no distress, speaking full sentences without difficulty - Systems Exam Head: Present: Atraumatic, Normocephalic Pupils: Present: PERRL Extroacular Muscles: Present: EOMI Conjunctiva: Present: Normal Mouth: Present: Moist Mucous Membranes Neck: Present: Normal Range of Motion. No: MIDLINE TENDERNESS, Paraspinal Tenderness Respiratory/Chest: Present: Clear to Auscultation, Good Air Exchange. No: Respiratory Distress, Accessory Muscle Use, Tachypneic Cardiovascular: Present: Regular Rate and Rhythm, Normal S1, S2, Peripheal Pulses Present. No: Murmurs Abdomen: Present: Normal Bowel Sounds. No: Tenderness, Distention, Peritoneal Signs, Rebound, Guarding Back: Present: Normal Inspection. No: Midline Tenderness, Paraspinal Tenderness Upper Extremity: Present: Normal Inspection. No: Cyanosis, Edema Lower Extremity: Present: Normal Inspection. No: Edema Neurological: Present: GCS=15, Speech Normal, cranial nerves II through XII fully intact with no cerebellar abnormality, neurosensory fully intact. No focal neurological deficits. Skin: Present: Warm, Dry, Normal Color. No: Rashes Lymphatic: Present: OX3, NI, NC Psychiatric: Present: Alert and Awake. No: Anxiety Vital Signs Reviewed: Yes Vital Signs Temp Pulse Resp BP Pulse Ox 12/31/16 16:54 98.2 F 73 18 151/70 H 12/31/16 16:37 98 F 76 18 149/66 12/31/16 15:29 74 18 143/63 100 12/31/16 13:16 98 F 81 20 100 Temperature: Afebrile Blood Pressure: Normal Pulse: Regular Respiratory Rate: Normal Appearance: Positive for: Well-Appearing, Non-Toxic, Comfortable Pain Distress: None Mental Status: No: Confused, Agitated, Lethargic Medical Decision Making ED Course and Treatment: 12/31/16 14:47 Impression: A 86 year old male sent in for low hemoglobin. Patient denies any complaints. Physical exam unremarkable. Plan: -- Chest xray -- EKG -- Labs -- Reassess and disposition Progress Notes: Report Date : 12/31/2016 14:35:16 Procedure: Chest xray Dictator : Jamin Mcqueen MD IMPRESSION: No active disease 12/31/16 15:[address] Nazario, accepted obs to his service Dr. Hanley aware as well pt in no distress aware of and agrees with plan 12/31/16 17:10 EKG shows normal sinus, 80 bpm, right bundle branch block, no ST segment elevations. Interpreted by me. - Lab Interpretations Lab Results: 12/31/16 14:10 12/31/16 14:10 Lab Results 12/31/16 14:40: TIBC 237 L 12/31/16 14:16: Blood Type B POSITIVE, Antibody Screen Negative, Crossmatch See Detail, BBK History Checked Patient has bt 12/31/16 14:10: PT 11.5, INR 1.06, APTT 27.8 12/31/16 14:10: WBC 6.6, RBC 2.36 L, Hgb 7.0 L, Hct 22.2 L, MCV 94.1 D, MCH 29.7, MCHC 31.5, RDW 21.6 H, Plt Count 277, MPV 10.8, Gran % 59.4, Lymph % (Auto ) 27.1, [place] % (Auto) 11.5 H, Eos % (Auto) 1.5, Baso % (Auto) 0.5, Gran # 3.93, Lymph # 1.8, [place] # 0.8 H, Eos # 0.1, Baso # 0.03 12/31/16 14:10: Sodium 138, Potassium 4.5, Chloride 96 L, Carbon Dioxide 30, Anion Gap 17, BUN 26 H, Creatinine 5.0 H, Est GFR ( Amer) 13, Est GFR ( Non-Af Amer) 11, Random Glucose 167 H, Calcium 8.5, Ferritin Pending, Total Bilirubin 0.5, AST 31, ALT 14, Alkaline Phosphatase 71, Lactate Dehydrogenase 541, Total Creatine Kinase 71, Troponin I 0.04 D, Total Protein 7.1, Albumin 3.4, Globulin 3.6, Albumin/Globulin Ratio 0.9 L I have reviewed the lab results: Yes - RAD Interpretation Radiology Orders: 12/31/16 14:09 CHEST PORTABLE [RAD] Stat - Medication Orders Current Medication Orders: Aspirin (Ecotrin) 81 mg PO DAILY FRANCISCO JAVIER Atorvastatin Calcium (Lipitor) 40 mg PO DIN FRANCISCO JAVIER Benzonatate (Tessalon Perles) 100 mg PO TID FRANCISCO JAVIER Cholecalciferol (Vitamin D) iu PO SAT FRANCISCO JAVIER Donepezil HCl (Aricept) 10 mg PO HS FRANCISCO JAVIER Insulin Detemir (Levemir) 5 unit SC HS FRANCISCO JAVIER Insulin Human Lispro (Humalog Low) 0 units SC ACHS FRANCISCO JAVIER PRN Reason: Protocol Isosorbide Mononitrate (Imdur) 120 mg PO DAILY FRANCISCO JAVIER Latanoprost (Xalatan Opht) 0 ml OU HS FRANCISCO JAVIER Levalbuterol HCl (Xopenex) 1.25 mg IH PRN PRN PRN Reason: Shortness of Breath Losartan Potassium (Cozaar) 100 mg PO DAILY FRANCISCO JAVIER Non-Formulary Medication (Doxycycline Monohydrate [Doxycycline Monohydrate]) 100 mg PO BID FRANCISCO JAVIER Non-Formulary Medication (Nebivolol [Bystolic]) 5 mg PO DAILY FRANCISCO JAVIER Pantoprazole Sodium (Protonix Ec Tab) 40 mg PO DAILY FRANCISCO JAVIER Polyethylene Glycol (Miralax) 17 gm PO BID FRANCISCO JAVIER Risperidone (Risperdal Tab) 0.25 mg PO BID FRANCISCO JAVIER PRN Reason: Protocol Sevelamer HCl (Renagel) 800 mg PO TID FRANCISCO JAVIER Tamsulosin HCl (Flomax) 0.4 mg PO DAILY FRANCISCO JAVIER Vitamin B Complex/Vit C/Folic Acid (Nephro-Jaylin) 1 tab PO DAILY FRANCISCO JAVIER - Scribe Statement The provider has reviewed the documentation as recorded by the Raegan Brambila Provider Scribe Attestation: All medical record entries made by the Jyotiibashutosh were at my direction and personally dictated by me. I have reviewed the chart and agree that the record accurately reflects my personal performance of the history, physical exam, medical decision making, and the department course for this patient. I have also personally directed, reviewed, and agree with the discharge instructions and disposition. Disposition/Present on Arrival - Present on Arrival Any Indicators Present on Arrival: No History of DVT/PE: No History of Uncontrolled Diabetes: No Urinary Catheter: No History of Decub. Ulcer: No History Surgical Site Infection Following: None - Disposition Have Diagnosis and Disposition been Completed?: Yes Diagnosis: Anemia Disposition: HOSPITALIZED Disposition Time: 15:50 Patient Plan: Observation Patient Problems: Current Active Problems Problem Status Onset Anemia Acute Condition: STABLE
[2016-12-31] MEDS ORDERED: Levalbuterol 1.25 MG/3 ML Inhal Soln UD IH PRN (16:24)
--- NOTE | 2016-12-31 16:44 | CP.PCM.HP ---
History of Present Illness - History of Present Illness History of Present Illness: CC: Anemia HPI: Pt is an 86 yo male with PMH of ESRD on HD, HCAP, CAD s/p stenting, GI bleed, CVA, gastric cancer, MVP, DM and dementia presents to [facility] [place] as a transfer from his hemodialysis facility due to low hemoglobin. Pt was asymptomatic during HD and continues to be so in the ED. Hemoglobin was found to be 7.0. Patient being transfused 1 unit of pRBC at time of examination. Pt denied CP, SOB, n/v/d, chills, fever, abdominal pain, constipation, dysuria, ALEX, dizziness , fatigue. PMH: ESRD on HD (M/W/F), prior HCAP, CAD s/p stenting, GI bleeds, CVA, Gastric cancer, Mitral valve prolapse, DM, and dementia PSH: AVF L forearm All: NDKA SH: Hx tobacco use, no reported EtOH or Illicits PMD: Dr. Nazario Present on Admission - Present on Admission Any Indicators Present on Admission: No Review of Systems - Review of Systems All systems: reviewed and no additional remarkable complaints except (what is stated in HPI) Past Patient History - Infectious Disease Hx of Infectious Diseases: None - Tetanus Immunizations Tetanus Immunization: Unknown - Past Medical History & Family History Past Medical History?: Yes - Past Social History Smoking Status: Former Smoker - CARDIAC Hx Cardiac Disorders: Yes ([place]) Hx Congestive Heart Failure: Yes Hx Heart Attack: Yes Hx Hypertension: Yes - PULMONARY Other/Comment: PLEURA EFFUSION - NEUROLOGICAL Hx Dementia: Yes - HEENT Hx HEENT Problems: Yes (WEARS RX GLASSES) Hx Glaucoma: Yes - RENAL Hx Dialysis: Yes Hx Renal Failure: Yes (ESRD on Hemo) - ENDOCRINE/METABOLIC Hx Diabetes Mellitus Type 2: Yes (IDDM) - HEMATOLOGICAL/ONCOLOGICAL Hx Anemia: Yes Hx Cancer: Yes (gastric) - INTEGUMENTARY Hx Dermatological Problems: No - MUSCULOSKELETAL/RHEUMATOLOGICAL Hx Falls: No - GASTROINTESTINAL Hx Gastrointestinal Disorders: Yes - GENITOURINARY/GYNECOLOGICAL Hx Reproductive Disorders: No - PSYCHIATRIC Hx Psychophysiologic Disorder: Yes Hx Substance Use: No Other/Comment: DEMENTIA WITH BEHAVIOR DISTURBANCE - SURGICAL HISTORY Hx Cholecystectomy: Yes Hx Coronary Artery Bypass Graft: Yes Hx Coronary Stent: Yes (x1) Other/Comment: AV shunt placement. - ANESTHESIA Hx Anesthesia: Yes Meds Allergies/Adverse Reactions: Allergies Allergy/AdvReac Type Severity Reaction Status Date / Time No Known Allergies Allergy Verified 12/31/16 13:18 Physical Exam - Constitutional Appears: No Acute Distress - Head Exam Head Exam: ATRAUMATIC, NORMOCEPHALIC - Eye Exam Eye Exam: EOMI, PERRL Additional comments: b/l conjunctival pallor - ENT Exam ENT Exam: Mucous Membranes Moist - Neck Exam Neck exam: Positive for: Full Rom - Respiratory Exam Respiratory Exam: Clear to Auscultation Bilateral. absent: Rales, Rhonchi, Wheezes - Cardiovascular Exam Cardiovascular Exam: RRR, +S1, +S2. absent: Diastolic murmur, Gallop, Rubs, Systolic Murmur - GI/Abdominal Exam GI & Abdominal Exam: Soft. absent: Distended, Guarding, Mass, Rebound, Tenderness - Extremities Exam Extremities exam: Negative for: joint swelling, normal capillary refill (poor, > 3 seconds), tenderness - Neurological Exam Neurological exam: Alert, Oriented x3 - Psychiatric Exam Psychiatric exam: Flat Affect, Normal Mood - Skin Skin Exam: Dry, Intact, Normal Color, Warm Additional comments: Poor skin turgor Results - Vital Signs Recent Vital Signs: Last Vital Signs Temp 98 F 12/31/16 13:16 Pulse 74 12/31/16 15:29 Resp 18 12/31/16 15:29 BP 143/63 12/31/16 15:29 Pulse Ox 100 12/31/16 15:29 - Labs Result Diagrams: 12/31/16 14:10 12/31/16 14:10 Labs: Laboratory Results - last 24 hr 12/31/16 12/31/16 12/31/16 14:10 14:10 14:10 WBC 6.6 RBC 2.36 L Hgb 7.0 L Hct 22.2 L MCV 94.1 D MCH 29.7 MCHC 31.5 RDW 21.6 H Plt Count 277 MPV 10.8 Gran % 59.4 Lymph % (Auto) 27.1 Hayes % (Auto) 11.5 H Eos % (Auto) 1.5 Baso % (Auto) 0.5 Gran # 3.93 Lymph # 1.8 Hayes # 0.8 H Eos # 0.1 Baso # 0.03 PT 11.5 INR 1.06 APTT 27.8 Sodium 138 Potassium 4.5 Chloride 96 L Carbon Dioxide 30 Anion Gap 17 BUN 26 H Creatinine 5.0 H Est GFR ( Amer) 13 Est GFR (Non-Af Amer) 11 Random Glucose 167 H Calcium 8.5 TIBC Total Bilirubin 0.5 AST 31 ALT 14 Alkaline Phosphatase 71 Lactate Dehydrogenase 541 Total Creatine Kinase 71 Troponin I 0.04 D Total Protein 7.1 Albumin 3.4 Globulin 3.6 Albumin/Globulin Ratio 0.9 L Blood Type Antibody Screen Crossmatch BBK History Checked 12/31/16 12/31/16 14:16 14:40 WBC RBC Hgb Hct MCV MCH MCHC RDW Plt Count MPV Gran % Lymph % (Auto) [place] % (Auto) Eos % (Auto) Baso % (Auto) Gran # Lymph # Hayes # Eos # Baso # PT INR APTT Sodium Potassium Chloride Carbon Dioxide Anion Gap BUN Creatinine Est GFR ( Amer) Est GFR (Non-Af Amer) Random Glucose Calcium TIBC 237 L Total Bilirubin AST ALT Alkaline Phosphatase Lactate Dehydrogenase Total Creatine Kinase Troponin I Total Protein Albumin Globulin Albumin/Globulin Ratio Blood Type B POSITIVE Antibody Screen Negative Crossmatch See Detail BBK History Checked Patient has bt Assessment & Plan - Assessment and Plan (Free Text) Assessment: 86 yo male with PMH of ESRD on HD, HCAP, CAD s/p stenting, GI bleed, CVA, gastric cancer, MVP, DM and dementia found to have Hgb of 7.0, transfused 1 unit pRBC in the ED admitted for evaluation and treatment for anemia. Plan: 1. Anemia - Likely due to CKD - Hgb 7.0 - Transfused 1 unit pRBC, will transfuse 1 unit in AM - F/u Iron, TIBC, Ferritin, cardiac enzymes - EKG showed RBBB, sinus arrhythmia - GI consulted for anemia and h/o of GI bleed 2. ESRD - Cr 5 - Hemodialysis (M/W/F) - Nephrology consulted - Renal Diet - Renal supplements 3. Diabetes Mellitus - Levemir HS - Humalog ISS - Accuchecks ACHS 4. Dementia - Cont Aricept, Risperidone 5. H/O CAD - Cont ASA, Lipitor 6. HTN - Cont Bystolic, Cozaar, Imdur, Bystolic - Monitor 7. COPD - Cont Tessalon Perles, Xopenex 8. H/O Glaucoma - Cont Latanoprost 9. H/O BPH - Cont Flomax GI/DVT PPx - Protonix - SCDs - AC contraindicated due h/o GI Bleed Pt discussed in detail with Dr. Nazario. Pierre Hanley, PGY1
[2016-12-31] MEDS: Insulin Lispro (humaLOG) LOW Coverage SC SCH ×2 (17:27→22:30)
[2016-12-31] MEDS: DOXYCYCLINE MONOHYDRATE 100 MG PO SCH (18:55)
[2016-12-31] MEDS: POLYETHYLENE GLYCOL 3350 17 GM/Dose PACKET PO SCH ×2 (18:55→18:58)
[2016-12-31] MEDS ORDERED: Pneumococcal 23-Valent Vaccine IM ONE (19:56)
[2016-12-31] MEDS ORDERED: Non Formulary Medication (Travoprost [Travatan Z] 1 DROP) BOTHEYES SCH (22:00)
[2016-12-31] MEDS ORDERED: Latanoprost 2.5 ml Opht Soln OU SCH (22:00)
[2016-12-31] MEDS ORDERED: Insulin Detemir 100 units/ml Vial (Levemir) SC SCH (22:00)
--- NOTE | 2016-12-31 22:02 | CARD ---
APPROVED REPORT EKG Measurement Heart [id number] <Conclusion> Normal sinus rhythm with sinus arrhythmia Right bundle branch block Left anterior fascicular block Bifascicular block Abnormal ECG
[2017-01-01 07:50] LABS: HEMATOCRIT 25.3 % (42.0-52.0); MEAN CELL VOLUME 92.3 fl (80.0-105.0); MEAN CORPUSCULAR HEMOGLOBIN 29.9 pg (25.0-35.0); MEAN CORPUSCULAR HGB CONC 32.4 g/dl (31.0-37.0); RED CELL DISTRIBUTION WIDTH 20.8 % (11.5-14.5); WHITE BLOOD COUNT 7.2 10^3/ul (4.5-11.0)
[2017-01-01 08:25] LABS: BILIRUBIN,TOTAL 0.5 mg/dL (0.2-1.3); CALCIUM 8.8 mg/dL (8.4-10.5); POTASSIUM 4.3 mmol/L (3.6-5.0)
[2017-01-01] MEDS: Insulin Lispro (humaLOG) LOW Coverage SC SCH ×2 (08:38→11:32)
[2017-01-01 09:03] VITALS: RESP 18; O2SAT 98
[2017-01-01] MEDS: POLYETHYLENE GLYCOL 3350 17 GM/Dose PACKET PO SCH (09:39)
[2017-01-01] MEDS ORDERED: Non Formulary Medication (Nebivolol [Bystolic] 5 MG) PO SCH (10:00)
[2017-01-01] MEDS ORDERED: Multivitamin Vitamin B Complex (Nephro-Vite) Tab PO SCH (10:00)
[2017-01-01] MEDS ORDERED: Pantoprazole 40 mg EC Tab PO SCH (10:00)
[2017-01-01] MEDS ORDERED: DiphenhydrAMINE 50 mg/ml Inj IVP ONE (10:00)
[2017-01-01] MEDS: DOXYCYCLINE MONOHYDRATE 100 MG PO SCH (11:25)
--- NOTE | 2017-01-01 11:49 | DS ---
FINAL PROGRESS NOTE AND DISCHARGE SUMMARY HISTORY OF PRESENT ILLNESS: The patient is seen lying in the bed in room number 377. The patient is having breakfast. The patient appears to be in no distress. Overnight nurse's notes were reviewed. The patient completed blood transfusion overnight to without any adverse events. PHYSICAL EXAMINATION: VITAL SIGNS: T-max is 98.2, heart rate is 77 to 81, blood pressure is 145/84, 157 82, 151/70, 149/66 and 143/63, respirations are 18, and O2 saturation is 98%. HEENT: HEAD: Examination normocephalic and atraumatic. HEENT examination shows pinkish pale conjunctivae. Anicteric sclerae. No oropharyngeal lesion. NECK: No neck rigidity. CHEST: Examination shows kyphosis. Lungs: Examination shows no rales, crackles or wheezing. CARDIOVASCULAR: Examination shows S1 and S2, regular rhythm. Questionable soft systolic murmur, right second intercostal space left sternal border, left second intercostal space. ABDOMEN: Soft. Positive bowel sounds. GENITALIA: Male. RECTAL: Examination is deferred. EXTREMITIES: Shows positive left upper extremity AV fistula and positive thrill. MUSCULOSKELETAL: Examination shows a body mass index of 23. NEUROLOGIC: Cranial nerves II through XII limited. Gait examination is not tested. DIAGNOSTIC DATA: From today 01/01/2017, WBC of 7.2, hemoglobin and hematocrit has come up to 8.2 and 25.3 from 7.0 and 22.2, and platelets are 246. PT and PTT is normal. Sodium is 139, potassium is 4.3, chloride is 97, CO2 is 31, anion gap is 15, BUN is 31, and creatinine is 6.3. GFR is 10. Fingerstick blood sugar of 185, 192 and 139. LFTs are normal. Iron is 55 and ferritin is 828 which is elevated. The patient received 1 unit of PRBC. FINAL IMPRESSION AND PLAN AND DISCHARGE DIAGNOSES: 1. Recurrent normocytic anemia and anemia of chronic disease and chronic kidney disease. 2. End-stage renal disease, hemodialysis dependent. 3. Dementia. 4. Hypertension. 5. Normocytic anemia. 6. Type 1 insulin requiring diabetes mellitus. 7. Right bundle-branch block, left anterior hemiblock, bifascicular block. 8. Status post packed red blood cell transfusion. 9. Bifascicular block, left anterior hemiblock, and right bundle-branch block. 10. History of coronary artery disease. 11. History of prostate hypertrophy. 12. Dyslipidemia. 13. Hypovitaminosis D. 14. History of constipation. 15. Prostate hypertrophy. 16. History of noncompliance. PLAN: At this time, the patient has been ordered 1 more unit of PRBC today. The patient has been given premedications with Lasix, Benadryl, and Tylenol. The patient will be considered for discharge back to [facility] after completion of the second unit of PRBC. MEDICATIONS: The patient's discharge medications are as per the ambulatory orders, which are updated. The patient's discharge medications will be enteric-coated aspirin 81 mg daily, Lipitor 40 mg daily Tessalon Perles 100 to 200 mg three times a day as needed, vitamin D 50,000 units weekly, Aricept 10 mg at bed time, folic acid 1 mg daily Levemir 5 units daily, Humalog sliding scale coverage, Imdur 120 mg daily, Xopenex 1.25 mg as needed four times a day, Cozaar 100 mg daily, Bystolic 5 mg daily, Protonix 40 mg daily, MiraLax 17 grams twice a day, Risperdal 0.25 mg, Protonix 40 mg daily, Renagel 800 mg, Flomax 0.4 mg daily Travatan eye drops both eyes at bed time, and Suzanna-Jaylin one tablet daily. DISPOSITION: The patient is to be discharge back to [facility] after packed RBC transfusion. The patient's medications will be resumed as per the ambulatory orders, which are dictated. Time spent in the entire management more than 45 minutes. Dictated and electronically signed, not read. Signing off Zeyad Nazario MD Zeyad Nazario MD
--- NOTE | 2017-01-01 13:47 | CON ---
DATE: 01/01/2017 REASON FOR CONSULTATION: Severe anemia, hypertension, and end-stage renal disease. HISTORY OF PRESENTING ILLNESS: An 86-year-old male known to me from outpatient hemodialysis was sent to the Emergency Room because of hemoglobin of 7 in the outpatient unit. The patient was receiving Aranesp and has. He was receiving IV iron, but hemoglobin remained low, in fact was getting lower. The patient has a history of gastric cancer, history of GI bleed. Hence the patient was sent here. Currently, the patient appears to be comfortable. He received 1 unit of blood last night. He is receiving the second unit right now. He does not complain of any chest pain or palpitation. He denies any shortness of breath. PAST MEDICAL AND SURGICAL HISTORY: NIDDM, hypertension, gastric cancer in the past, GI bleed, CAD, ESRD, chronic anemia, secondary hyperparathyroidism, and dementia. FAMILY HISTORY: Noncontributory. SOCIAL HISTORY: Ex-smoker, no alcohol use, and no IV drug abuse. ALLERGIES: NO KNOWN DRUG ALLERGIES. MEDICATIONS: List reviewed. REVIEW OF SYSTEMS: All systems are reviewed, pertinent positives as mentioned in the history of presenting illness, rest unremarkable. PHYSICAL EXAMINATION: GENERAL: Elderly male lying in bed. VITAL SIGNS: Blood pressure of 142/83, heart rate of 79, respiratory rate of 18, and temperature of 97.8. HEENT: Normocephalic and atraumatic. NECK: Supple and no JVD. LUNGS: Bilateral equal entry and rales. CARDIAC: S1 and S2, regular rate and rhythm. No murmur and no rub. ABDOMEN: Soft, nondistended, and nontender. Bowel sounds are present. EXTREMITIES: No lower extremity edema. INTAKE AND OUTPUT: Not charted. LABORATORY DATA: WBC of 7.2, hemoglobin of 8.2, hematocrit of 25, and platelets of 246. Sodium of 139, potassium of 4.3, chloride of 97, CO2 of 31, BUN of 31, and creatinine of 6.3. glucose of , calcium of 8.8, phosphorus of 3.0 magnesium of 2.0, and albumin of 3.5. ASSESSMENT AND PLAN 1. Acute on chronic anemia, need to rule out gastrointestinal blood loss. 2. Non-insulin dependent diabetes mellitus.. 3. Hypertension. 4. End-stage renal disease. 5. History of gastrointestinal bleed. 6. Dementia. PLAN 1. Agree with blood transfusion. 2. Hemodynamically, the patient is stable. 3. No indication for dialysis at this time. 4. Next dialysis will be his scheduled dialysis on Tuesday Thank you for the courtesy of this consultation. We will follow this patient with you. Brinda Ibarra MD
[2017-01-01 14:24] VITALS: BP 136/77; PULSE 82; TEMP 98.7
--- NOTE | 2017-01-03 17:16 | HP ---
HISTORY OF PRESENT ILLNESS: The patient is an 86-year-old male, resident presently at subacute rehab in [facility], has been continuing subacute rehab at [facility]. The patient had a routine lab work done by the Nephrology. Hemoglobin was found to be 7.1. The patient was advised and recommended by the website admin to be transferred to [facility] for transfusion of PRBC for anemia. The patient was brought to the emergency room. The patient's lab work was confirmed. The patient's hemoglobin was found to be 7.0, hematocrit 22.2, and the patient was admitted to observation for anemia. CODE STATUS: Full code. LIVING WILL, ADVANCE DIRECTIVE: None. ALLERGIES: NONE. HEIGHT: 5 feet 8 inches. WEIGHT: 150. BMI: 23. HOME MEDICATIONS: As per the home medication list and ambulatory orders, which are Aricept 10 mg at bedtime. Tessalon Perles 100 mg three times a day or 200 mg three times a day as needed for cough, Bystolic 5 mg daily, Cozaar 100 mg daily, Flomax 0.4 mg daily, folic acid 1 mg daily, Humalog low dose sliding scale coverage, Imdur 120 mg daily, Levemir 5 units subcu daily, Lipitor 40 mg daily, aspirin 81 mg daily, MiraLax 17 g twice a day, Protonix 40 mg daily, Suzanna-Jaylin one capsule daily, Renagel 800 mg three times a day, Risperdal 0.5 mg twice a day, Travatan eye drops at bedtime, Drisdol 50,000 once a weeks, and Xopenex nebulizer p.r.n. SOCIAL HISTORY: Positive for former smoker. Denies alcohol. Denies communicable transmissible disease. 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 PAST MEDICAL HISTORY: The patient's past medical history is significant for multiple hospitalization to [facility] for history of cerebral infarct, history of dementia, history of poor compliance with medication and diet, history of recurrent anemia, history of multiple packed red blood cell transfusions, history of end-stage renal disease, hemodialysis dependent. History of diastolic congestive heart failure with elevated BNP, volume, and fluid overload. History of questionable sepsis, history of pneumonia, history of multiple non-ST elevation myocardial infarction, history of coronary artery disease, history of angioplasty, history of diabetic gastroparesis, history of hypertension, history of pneumonia, history of gastrointestinal bleeding, history of chronic anemia, history of AV fistula malfunction, history of cerebrovascular accident, history of noncompliance, history of encephalopathy, history of delirium, history of hypertension, history of prostatic hypertrophy, history of insulin requiring diabetes mellitus, history of dyslipidemia, history of chronic constipation, history of secondary hyperparathyroidism, history of hypovitaminosis D, history of bilateral cerebral dysfunction diffuse type, history of hypertensive cardiovascular disease, history of bifascicular block with right bundle-branch block, left anterior hemiblock. The patient's past medical history is significant for recurrent anemia, history of gastrointestinal bleeding, history of pulmonary arterial hypertension with elevated right ventricular systolic pressure of 45 degrees on an echocardiogram from 2012, history of concentric left ventricular hypertrophy, history of calcified aortic valve, history of questionable mild aortic stenosis, history of calcified thickened mitral valve with mild mitral regurgitation, history of mild tricuspid regurgitation, history of diastolic dysfunction, history of cardiac catheterization in 12/2015, history of left ventricle ejection fraction of 45% on cardiac catheterization, history of diffuse atherosclerosis of the coronary arteries, history of 50-60% stenosis of the mid left anterior descending and 60% stenosis of the distal left anterior descending, history of triple-vessel coronary artery disease with presumed ostial right coronary artery subtotal occlusion and obtuse marginal branch possible thrombosis, history of left ventricular ejection fraction of 45% on cardiac catheterization in 12/2015, history of left upper extremity AV fistulogram, history of left ventricular ejection fraction of greater than 60%, history of concentric left ventricle hypertrophy, history of moderately calcified aortic valve, mild valvular aortic stenosis, history of mild mitral regurgitation, mild tricuspid regurgitation, moderate pulmonic regurgitation. History of endoscopy for GI bleed, history of gastric antral erosions, history of chronic mild gastritis, history of gastric antral gastritis, history of gastritis, history of small hiatal hernia. The patient's past medical history is significant for questionable sepsis with right-sided pneumonia and pleural effusion, history of volume overload with pulmonary vascular congestion, history of chronic right lower lobe pneumonia, history of hypertension, history of hypoxemia, history of increased anion gap metabolic acidosis, history of chronically indeterminate troponin, history of insulin requiring diabetes, history of right-sided diastolic congestive heart failure, history of hypovitaminosis D, history of prostate hypertrophy, history of aortic disorder, history of bilateral pleural effusions, history of acute recurrent exacerbation of right-sided diastolic congestive heart failure, history of bilateral renal cyst, history of encephalopathy, history of constipation. The patient's past medical history is also significant for history of chronic constipation, history of dementia, history of behavioral disorder, history of prostatic hypertrophy, history of gastroesophageal reflux, history of cerebral infarct, history of atelectasis, history of multivessel coronary artery disease. 1. Questionable sepsis with right healthcare-associated pneumonia with pleural effusion. 2. Severe deconditioning and gait dysfunction. 3. Shortness of breath, weakness, and recurrent fall. 4. Low-grade fever. 5. Most likely volume overload with pulmonary vascular congestion. 6. Questionable right lower lobe chronic pneumonia and infiltrate. 7. Hypertension. 8. Transient hypoxemia. 9. Normocytic anemia with granulocytosis. 10. End-stage renal disease, hemodialysis-dependent. 11. Increased anion gap, metabolic acidosis in an end-stage renal dialysis patient. 12. Indeterminate troponin. 13. Insulin-requiring diabetes mellitus. 14. Possible right-sided diastolic congestive heart failure with elevated brain natriuretic peptide and pulmonary vascular congestion and possible chronic right-sided lower lobe pneumonia. 15. Bifascicular block with left anterior block, right bundle-branch block. 16. History of coronary artery disease and unstable angina, non-ST elevation myocardial infarction. 17. History of hypertension. 18. Prostatic hypertrophy. 19. Dementia. 20. Hypovitaminosis D. 21. Dyslipidemia. 22. Constipation. 23. Behavioral disorder. 24. Status post decompensated congestive heart failure with end-stage renal disease, hemodialysis dependent. 25. Sepsis due to healthcare-associated bibasilar pneumonia with bilateral pleural effusion and volume overload. 26. Volume overload with decompensated congestive heart failure. 27. Attempted ultrasound-guided right thoracentesis. 28. Bilateral upper lobe patchy ground-glass attenuation with lobular septal thickening and honey combing with lobular and paraseptal emphysema of the upper lobe with bibasilar lower lobe airspace disease. 29. Diffuse pulmonary vascular congestion and congestive heart failure. 30. Bilateral pleural effusion, left more than the right. 31. Degenerative disc disease. 32. Bilateral renal cysts. 33. Dementia with behavioral disturbances. 34. Gait dysfunction. 35. Deconditioning. 36. Probably decompensated right-sided diastolic congestive heart failure. 37. Upper lobe lobular emphysema. 38. Bibasilar airspace disease versus pneumonia versus interstitial pneumonia. 39. Acute exacerbation of recurrent right-sided diastolic congestive heart failure and pulmonary hypertension. 40. Bilateral pleural effusion, left more than the right. 41. Bilateral renal cyst. 42. Low grade fever. 43 End-stage renal disease, hemodialysis-dependent, three times a week via the left upper extremity arteriovenous fistula. 44. Acute exacerbation of dementia with behavioral disturbances. 45. Encephalopathy. 46. History of constipation, history of poor compliance, history of coronary artery disease, history of multiple non-ST elevation myocardial infarction, history of angioplasty, history of gastrointestinal bleeding, history of cerebral infarct, history of [id number] pneumonia, history of sinus tachycardia. 47. Questionable aspiration pneumonia with abnormal chest x-ray. 48. Leukocytosis with granulocytosis. 49. Anemia of chronic kidney disease. 50. Recurrent encephalopathy with underlying advanced dementia. 51. Encephalopathy with episodic confusion. 52. Hypokalemia and end-stage renal disease, hemodialysis-dependent patient. 53. Hyperprocalcitoninemia. 54. Bilateral upper lobe patchy ground-glass attenuation and interlobular septal thickening with honeycombing and centrilobular and paraseptal emphysema of the upper lobes with confluent airspace disease in both lower lobe. 54. Diffuse pulmonary vascular congestion. 55. Multilevel degenerative disc disease of the spine. 56. Resolution of the bilateral pulmonary infiltrate and vascular congestion. 57. Bifascicular block with right bundle-branch block and left anterior hemiblock. The patient was seen in the emergency room on 12/31/2016. PHYSICAL EXAMINATION: VITAL SIGNS: T-max 98, 98.2, 97.9. Heart rates 81, 74, 73. Blood pressure 143/63 149/66, 151/70. Respirations are 18-20. O2 sat is 100%. GENERAL: The patient is seen lying in the bed. The patient is alert, awake, responsive, oriented x3. HEENT: The patient's head examination; normocephalic, atraumatic. HEENT examination shows pale conjunctivae. Anicteric sclerae. No oropharyngeal lesions noted. NECK: No neck rigidity. Soft carotid bruit. CHEST: Kyphosis. LUNGS: Shows occasional rhonchi, right more than the left. No rales, no wheezing. CARDIOVASCULAR: Shows S1, S2, regular rhythm. Positive systolic murmur, right second intercostal space, left second intercostal space, left sternal border. ABDOMEN: Soft. Positive bowel sounds. GENITALIA: Male. RECTAL: Examination is deferred. EXTREMITIES: Shows positive left upper extremity AV fistula, positive thrill. Extremity shows no pitting, no calf tenderness, no Homans' sign. NEUROLOGIC: The patient is alert, awake, oriented x3 with!. The patient follows command. Motor strength is 5/5. Cranial nerves II through XII grossly intact. Gait examination not tested. Vascular examination, palpable pulses. DIAGNOSTICS: WBC 6.6, hemoglobin/hematocrit 7.0, 22.2, platelet 277. PT/PTT 11.5 and 27.8. Sodium 138, potassium 4.5, chloride 96, CO2 30, anion gap 17, BUN 26, creatinine 5.0, GFR 13, glucose 167, calcium 8.5, iron 55, TIBC 237, transferrin 181, ferritin 828, troponin 0.04. CPK negative. The patient was typed and crossmatch for 2 units. Blood type B+. Chest x-ray was done in the emergency room, the results of which are reviewed, which shows some chronic markings on the right side. Official report shows no active pneumonia. No CHF. EKG was done, shows sinus rhythm, left anterior hemiblock, right bundle-branch block, bifascicular block. The patient was typed and crossmatch in the ER. The patient is to be started on packed RBC today. IMPRESSION AND PLAN: 1. Severe [id number] anemia, etiology undetermined versus history of chronic gastrointestinal bleeding. 2. End-stage renal disease, hemodialysis dependent. 3. Hypertension. 4. Dementia. 5. Normocytic anemia. 6. Questionable iron deficiency. 7. Bifascicular block with right bundle-branch block, left anterior hemiblock. 8. Advanced dementia. 9. History of noncompliance. 10. Hypertension. 11. Prostatic hypertrophy. 12. Insulin-requiring diabetes mellitus. 13. History of multivessel coronary artery disease and history of angioplasty and multi non-ST elevation myocardial infarction. 14. History of dyslipidemia. 15. History of constipation. 16. History of gastroesophageal reflux and gastritis. 17. History of hypovitaminosis D. PLAN: At this time, the patient will be resumed on all home medication. The patient will be transfused 1 unit of PRBC today and repeat CBC will be ordered. The patient's goal hemoglobin should be around 9 to 10 g.. At present, the patient has been started on packed red blood cell transfusion, which will be continued. Nephrology consultation will be ordered for continuation of hemodialysis.. The patient has been seen in the past by the textile converter, Dr. Alexi Hitchcock in 10/2016 and has been advised conservative treatment. At this time, the patient is awaiting for a bed. The patient's further management will be dependent upon the patient's clinical condition, hemodynamic status, and as per the patient response to therapeutic intervention as per the patient's diagnostic test results and as per recommendation by all physician involved in the care of the patient. Dictated and electronically signed, not read. Zeyad Nazario MD MTDD
== END 2017-01-01 17:20 ==
LOC: ED 13:15 → ERH 16:12 → 3RSO 18:15
PROVIDERS: ADMIT Internal Medicine; ATTEND Internal Medicine
DX: D64.9 Anemia, unspecified (principal); D63.1 Anemia in chronic kidney disease; I13.2 Hypertensive heart and chronic kidney disease with heart failure and with stage 5 chronic kidney disease, or end stage renal disease; N18.6 End stage renal disease; E11.22 Type 2 diabetes mellitus with diabetic chronic kidney disease; Z85.028 Personal history of other malignant neoplasm of stomach; I25.10 Atherosclerotic heart disease of native coronary artery without angina pectoris; Z95.5 Presence of coronary angioplasty implant and graft; Z95.1 Presence of aortocoronary bypass graft; Z99.2 Dependence on renal dialysis; Z79.82 Long term (current) use of aspirin; Z79.4 Long term (current) use of insulin; N25.81 Secondary hyperparathyroidism of renal origin; E78.5 Hyperlipidemia, unspecified; F03.91 Unspecified dementia, unspecified severity, with behavioral disturbance; H40.9 Unspecified glaucoma; I25.2 Old myocardial infarction; I27.21 Secondary pulmonary arterial hypertension; I45.2 Bifascicular block; I50.30 Unspecified diastolic (congestive) heart failure; Z86.73 Personal history of transient ischemic attack (TIA), and cerebral infarction without residual deficits; K21.9 Gastro-esophageal reflux disease without esophagitis; N40.0 Benign prostatic hyperplasia without lower urinary tract symptoms; Z79.899 Other long term (current) drug therapy; Z87.891 Personal history of nicotine dependence; Z90.49 Acquired absence of other specified parts of digestive tract; Z91.14 Patient's other noncompliance with medication regimen; Z91.19 Patient's noncompliance with other medical treatment and regimen; I08.3 Combined rheumatic disorders of mitral, aortic and tricuspid valves; E55.9 Vitamin D deficiency, unspecified; K59.00 Constipation, unspecified; M40.204 Unspecified kyphosis, thoracic region; Z87.19 Personal history of other diseases of the digestive system
CPT/HCPCS: 36415; 36430; 71010; 80053; 82550; 82728; 82948; 83540; 83550; 83615; 83735; 84100; 84484; 85025; 85027; 85610; 85730; 86850; 86900; 86920; 93005; 96374; 96375; 99282; G0378; J1200; J1940; P9016

== ENCOUNTER 2017-01-10 22:46 | Emergency (ER) | payer MEDICARE, BC ==
[2017-01-10 22:56] VITALS: BP 151/81; PULSE 63; RESP 18; TEMP 98; O2SAT 96
[2017-01-10 23:27] VITALS: BMI 25.1
--- NOTE | 2017-01-10 23:39 | ED PDOC ---
Arrival/HPI - General Chief Complaint: Abnormal Labs Time Seen by Provider: 01/10/17 23:15 Historian: Patient - History of Present Illness Narrative History of Present Illness (Text): 01/10/17 23:30 Mendoza Lay is an 86 year old male, whose past medical history includes ESRD on hemdialysis, CAD s/p stents, GI bleed, CVA, gastric bypass, diabetes, and dementia, who presents to the Emergency department sent from care home for abnormal labwork. As per care home, patient is hyperkalemic. Patient denies any chest pain, nausea, vomiting, diarrhea, urinary symptoms, back pain, or any other complaints. PMD: Dr. Nazario Time/Duration: Other (tonight) Symptom Onset: Gradual Symptom Course: Unchanged Activities at Onset: Light Context: Home Past Medical History - Provider Review Nursing Documentation Reviewed: Yes - Infectious Disease Hx of Infectious Diseases: None - Tetanus Immunization Tetanus Immunization: Unknown - Cardiac Hx Cardiac Disorders: Yes (TX, cabg, cad) Hx Congestive Heart Failure: Yes Hx Hypertension: Yes Hx Mitral Valve Prolapse: Yes Hx Peripheral Edema: Yes Hx Peripheral Vascular Disease: Yes - Pulmonary Hx Respiratory Disorders: Yes Hx Chronic Obstructive Pulmonary Disease (COPD): Yes Hx Pneumonia: Yes Other/Comment: pleural effusion - Neurological Hx Neurological Disorder: Yes HX Cerebrovascular Accident: Yes Hx Dementia: Yes - HEENT Hx HEENT Disorder: Yes (WEARS RX GLASSES) Hx Cataracts: Yes (b/l) Hx Glaucoma: Yes Other/Comment: hx of epistaxix - Renal Hx Renal Disorder: Yes Hx Dialysis: Yes ([facility]) Date of Last Dialysis Treatment: 12/30/16 Hx Kidney Stones: Yes Hx Renal Failure: Yes (ESRD on Hemo) Other/Comment: renal cyst, voids as per pt - Endocrine/Metabolic Hx Endocrine Disorders: Yes Hx Diabetes Mellitus Type 2: Yes (IDDM) - Hematological/Oncological Hx Blood Disorders: Yes Hx Anemia: Yes (blood transfusion) Hx Cancer: Yes (gastric) - Integumentary Hx Dermatological Disorder: No - Musculoskeletal/Rheumatological Hx Musculoskeletal Disorders: Yes Hx Arthritis: Yes Hx Unsteady Gait: Yes (walker) - Gastrointestinal Hx Gastrointestinal Disorders: Yes (lower gi bleed) Hx Diverticulitis: Yes Hx Gastroesophageal Reflux: Yes - Genitourinary/Gynecological Hx Genitourinary Disorders: Yes (OLIGURIA,ESRD ON HD MWF) Hx Incontinence: Yes - Psychiatric Hx Psychophysiologic Disorder: No Hx Substance Use: No Other/Comment: dimentia - Surgical History Hx Cholecystectomy: Yes Hx Coronary Stent: Yes (x1) Other/Comment: AV shunt placement.left forearm - Anesthesia Hx Anesthesia: Yes Hx Anesthesia Reactions: No Hx Malignant Hyperthermia: No - Suicidal Assessment Feels Threatened In Home Enviroment: No Family/Social History - Physician Review Nursing Documentation Reviewed: Yes Family/Social History: Unknown Family HX Smoking Status: Never Smoked Hx Alcohol Use: No Hx Substance Use: No Hx Substance Use Treatment: No Allergies/Home Meds Allergies/Adverse Reactions: Allergies No Known Allergies Allergy (Verified 01/10/17 23:35) Home Medications: Home Meds Medication Instructions Recorded Confirmed RX: Travoprost [Travatan Z] 1 drop BOTHEYES HS 11/23/15 12/31/16 RX: Cholecalciferol [Vitamin D 50,000 unit PO SAT 01/30/16 12/31/16 1000 IU] RX: Folic Acid 1 mg PO DAILY 04/22/16 12/31/16 RX: Sevelamer [Renagel] 800 mg PO TID 04/22/16 12/31/16 RX: Aspirin [Lo-Dose Aspirin EC] 81 mg PO DAILY 04/28/16 12/31/16 RX: Benzonatate 100 mg PO TID 09/05/16 12/31/16 RX: Losartan [Cozaar] 100 mg PO DAILY 09/05/16 12/31/16 RX: Nebivolol [Bystolic] 5 mg PO DAILY 09/05/16 12/31/16 RX: Tamsulosin [Flomax] 0.4 mg PO DAILY 09/05/16 12/31/16 RX: Vit B Cmplx 3/Folic AC/C/Biot 1 tab PO DAILY 09/05/16 12/31/16 [Suzanna-Jaylin Rx Tablet] RX: Insulin Lispro-LOW [humALOG See Protocol SC ACHS 12/31/16 12/31/16 LOW] RX: Levalbuterol HCl [Xopenex] 3 ml NEB PRN PRN 12/31/16 12/31/16 RX: Pantoprazole [Protonix EC Tab] 40 mg PO DAILY 12/31/16 12/31/16 RX: Polyethylene Glycol 3350 17 g PO BID 12/31/16 12/31/16 [Miralax] Review of Systems - Physician Review All systems were reviewed & negative as marked: Yes - Review of Systems Constitutional: Normal. absent: Fevers Eyes: Normal ENT: Normal Respiratory: Normal. absent: SOB, Cough Cardiovascular: Normal. absent: Chest Pain Gastrointestinal: Normal. absent: Abdominal Pain, Diarrhea, Nausea, Vomiting Genitourinary Male: Normal. absent: Dysuria, Frequency, Hematuria, Urinary Output Changes Musculoskeletal: Normal. absent: Back Pain, Neck Pain Skin: Normal. absent: Rash Neurological: Normal. absent: Headache, Dizziness Endocrine: Normal Hemo/Lymphatic: Normal Psychiatric: Normal Physical Exam Vital Signs Reviewed: Yes Vital Signs Temp Pulse Resp BP Pulse Ox 01/10/17 22:55 98.0 F 63 18 151/81 H 96 Temperature: Afebrile Blood Pressure: Normal Pulse: Regular Respiratory Rate: Normal Appearance: Positive for: Well-Appearing, Non-Toxic, Comfortable Pain Distress: None Mental Status: Positive for: Alert and Oriented X 3 - Systems Exam Head: Present: Atraumatic, Normocephalic Pupils: Present: PERRL Extroacular Muscles: Present: EOMI Conjunctiva: Present: Normal Mouth: Present: Moist Mucous Membranes Neck: Present: Normal Range of Motion Respiratory/Chest: Present: Clear to Auscultation, Good Air Exchange. No: Respiratory Distress, Accessory Muscle Use Cardiovascular: Present: Regular Rate and Rhythm, Normal S1, S2. No: Murmurs Abdomen: Present: Normal Bowel Sounds. No: Tenderness, Distention, Peritoneal Signs Back: Present: Normal Inspection Upper Extremity: Present: Normal Inspection. No: Cyanosis, Edema Lower Extremity: Present: Normal Inspection. No: Edema Neurological: Present: GCS=15, CN II-XII Intact, Speech Normal Skin: Present: Warm, Dry, Normal Color. No: Rashes Psychiatric: Present: Alert, Oriented x 3, Normal Insight, Normal Concentration Medical Decision Making ED Course and Treatment: 01/10/17 23:30 Impression: 86 year old male brought in for abnormal labwork/hyperkalemia. Differential Diagnosis included but are not limited to: hyperkalemia Plan: -- EKG -- Labs -- Reassess and disposition Prior Visits: Notes and results from previous visits were reviewed. On 12/31/2016, pt was seen in the Emergency department for anemia. Pt was admitted to the hospital for further evaluation. Progress Notes: Reviewed EKG, sinus rhythm at 60 bpm. 1st degree AV block. LAD. RBBB. Non- specific ST/T wave changes. 01/11/17 00:[address] Nazario, who is aware and agrees with plan. States pt can be transferred back to nursing facility. Pt in no acute distress. Stable for transfer back to care home. - Lab Interpretations Lab Results: 01/10/17 23:55 01/10/17 23:55 Lab Results 01/10/17 23:55: Sodium 137, Potassium 4.8, Chloride 98, Carbon Dioxide 26, Anion Gap 18, BUN 48 H, Creatinine 7.1 H, Est GFR ( Amer) 9, Est GFR (Non -Af Amer) 7, Random Glucose 144 H, Calcium 8.8, Total Bilirubin 0.6, AST 36, ALT 50, Alkaline Phosphatase 136 H D, Total Protein 7.3, Albumin 3.8, Globulin 3.5, Albumin/Globulin Ratio 1.1 01/10/17 23:55: WBC 7.8, RBC 3.21 L, Hgb 9.5 L, Hct 30.7 L, MCV 95.6 D, MCH 29.6, MCHC 30.9 L, RDW 20.7 H, Plt Count 270, MPV 10.5, Gran % 67.1, Lymph % ( Auto) 14.8 L, [place] % (Auto) 16.8 H, Eos % (Auto) 1.0 L, Baso % (Auto) 0.3, Gran # 5.20, Lymph # 1.2, [place] # 1.3 H, Eos # 0.1, Baso # 0.02 I have reviewed the lab results: Yes - EKG Interpretation Interpreted by ED Physician: Yes Type: 12 lead EKG - Scribe Statement The provider has reviewed the documentation as recorded by the Raegan Steel Provider Scribe Attestation: All medical record entries made by the Scribe were at my direction and personally dictated by me. I have reviewed the chart and agree that the record accurately reflects my personal performance of the history, physical exam, medical decision making, and the department course for this patient. I have also personally directed, reviewed, and agree with the discharge instructions and disposition. Disposition/Present on Arrival - Present on Arrival Any Indicators Present on Arrival: No History of DVT/PE: No History of Uncontrolled Diabetes: No Urinary Catheter: No History of Decub. Ulcer: No History Surgical Site Infection Following: None - Disposition Have Diagnosis and Disposition been Completed?: Yes Diagnosis: ESRD (end stage renal disease) Disposition: TRANSF TO SNF Disposition Time: 01:42 Patient Problems: Current Active Problems Problem Status Onset ESRD (end stage renal disease) Acute Condition: GOOD Discharge Instructions (ExitCare): Heart Failure (ED), Chronic Kidney Disease ( ED) Forms: [employer] ([place] Islander)
[2017-01-11 00:17] LABS: BASO # 0.02 K/mm3 (0.0-2.0); BASO % 0.3 % (0.0-3.0); EOS # 0.1 (0.0-0.7); GRAN # 5.2 (1.4-6.5); GRAN % 67.1 % (50.0-68.0); HEMATOCRIT 30.7 % (42.0-52.0); LYMPH # 1.2 (1.2-3.4); LYMPH % 14.8 % (22.0-35.0); MEAN CELL VOLUME 95.6 fl (80.0-105.0); MEAN CORPUSCULAR HEMOGLOBIN 29.6 pg (25.0-35.0); MEAN CORPUSCULAR HGB CONC 30.9 g/dl (31.0-37.0); MEAN PLATELET VOLUME 10.5 fl (7.0-11.0); MONO # 1.3 (0.1-0.6); MONO % 16.8 % (1.0-6.0); WHITE BLOOD COUNT 7.8 10^3/ul (4.5-11.0)
[2017-01-11 00:30] LABS: ALB/GLOB RATIO 1.1 (1.1-1.8); BILIRUBIN,TOTAL 0.6 mg/dL (0.2-1.3); CALCIUM 8.8 mg/dL (8.4-10.5); POTASSIUM 4.8 mmol/L (3.6-5.0); TOTAL PROTEIN 7.3 g/dL (5.8-8.3)
[2017-01-11 05:16] LABS: RED CELL DISTRIBUTION WIDTH 20.7 % (11.5-14.5)
--- NOTE | 2017-01-11 22:17 | CARD ---
APPROVED REPORT EKG Measurement Heart [id number] <Conclusion> Sinus rhythm with 1st degree AV block with premature supraventricular complexes Left axis deviation Right bundle branch block Abnormal ECG
== END 2017-01-11 01:50 ==
LOC: ED 22:46
DX: I12.0 Hypertensive chronic kidney disease with stage 5 chronic kidney disease or end stage renal disease (principal); N18.6 End stage renal disease; Z99.2 Dependence on renal dialysis; E11.9 Type 2 diabetes mellitus without complications; I25.10 Atherosclerotic heart disease of native coronary artery without angina pectoris; J44.9 Chronic obstructive pulmonary disease, unspecified; Z86.73 Personal history of transient ischemic attack (TIA), and cerebral infarction without residual deficits; Z79.4 Long term (current) use of insulin

== ENCOUNTER 2017-04-26 21:10 | Inpatient (IN) | payer MEDICARE, BC ==
[2017-04-26 21:22] VITALS: BMI 25.8
--- NOTE | 2017-04-26 21:41 | ED PDOC ---
Arrival/HPI - General Chief Complaint: Flu-like Symptoms Time Seen by Provider: 04/26/17 21:17 Historian: Patient - History of Present Illness Narrative History of Present Illness (Text): 04/26/17 21:30 Mendoza Lay is an 86 year old male, whose past medical history includes CHF, hypertension, OK, diabetes, and arthritis, who presents to the emergency department complaining of fever and weakness with vomiting for the past few days. No other complaints were made.pt dyan historian 04/27/17 02:41 Time/Duration: < week Symptom Onset: Sudden Symptom Course: Unchanged Past Medical History - Provider Review Nursing Documentation Reviewed: Yes - Infectious Disease Hx of Infectious Diseases: None - Tetanus Immunization Tetanus Immunization: Unknown - Cardiac Hx Cardiac Disorders: Yes (OK, cabg, cad) Hx Congestive Heart Failure: Yes Hx Hypertension: Yes Hx Mitral Valve Prolapse: Yes Hx Peripheral Edema: Yes Hx Peripheral Vascular Disease: Yes - Pulmonary Hx Respiratory Disorders: Yes (H/O OF SMOKING CIGARETTES.QUIT) - Neurological Hx Neurological Disorder: Yes HX Cerebrovascular Accident: Yes Hx Dementia: Yes - HEENT Hx HEENT Disorder: Yes (WEARS RX GLASSES) Hx Cataracts: Yes (b/l) Hx Glaucoma: Yes Other/Comment: hx of epistaxix - Renal Hx Renal Disorder: Yes Hx Dialysis: Yes (simón brown) Date of Last Dialysis Treatment: 12/30/16 Hx Kidney Stones: Yes Hx Renal Failure: Yes (ESRD on Hemo) Other/Comment: renal cyst, voids as per pt - Endocrine/Metabolic Hx Endocrine Disorders: Yes Hx Diabetes Mellitus Type 2: Yes (IDDM) - Hematological/Oncological Hx Blood Disorders: Yes (LOWER GI BLEED) - Integumentary Hx Dermatological Disorder: No - Musculoskeletal/Rheumatological Hx Musculoskeletal Disorders: Yes Hx Arthritis: Yes Hx Unsteady Gait: Yes (walker) - Gastrointestinal Hx Gastrointestinal Disorders: Yes (lower gi bleed) Hx Diverticulitis: Yes Hx Gastroesophageal Reflux: Yes - Genitourinary/Gynecological Hx Genitourinary Disorders: Yes (OLIGURIA,ESRD ON HD MWF) Hx Incontinence: Yes - Psychiatric Hx Psychophysiologic Disorder: No Hx Substance Use: No Other/Comment: dimentia - Surgical History Hx Cholecystectomy: Yes Hx Coronary Stent: Yes (x1) Other/Comment: AV shunt placement.left forearm - Anesthesia Hx Anesthesia: Yes Hx Anesthesia Reactions: No Hx Malignant Hyperthermia: No - Suicidal Assessment Feels Threatened In Home Enviroment: No Family/Social History - Physician Review Nursing Documentation Reviewed: Yes Family/Social History: Unknown Family HX Smoking Status: Never Smoked Hx Alcohol Use: No Hx Substance Use: No Hx Substance Use Treatment: No Allergies/Home Meds Allergies/Adverse Reactions: Allergies No Known Allergies Allergy (Verified 04/26/17 21:15) Home Medications: Home Meds Medication Instructions Recorded Confirmed Travoprost [Travatan Z] 1 drop BOTHEYES HS 11/23/15 04/26/17 Cholecalciferol [Vitamin D 1000 IU] 50,000 unit PO SAT 01/30/16 04/26/17 Folic Acid 1 mg PO DAILY 04/22/16 04/26/17 Sevelamer [Renagel] 800 mg PO TID 04/22/16 04/26/17 Aspirin [Lo-Dose Aspirin EC] 81 mg PO DAILY 04/28/16 04/26/17 Benzonatate 100 mg PO TID 09/05/16 04/26/17 Losartan [Cozaar] 100 mg PO DAILY 09/05/16 04/26/17 Nebivolol [Bystolic] 5 mg PO DAILY 09/05/16 04/26/17 Tamsulosin [Flomax] 0.4 mg PO DAILY 09/05/16 04/26/17 Vit B Cmplx 3/Folic AC/C/Biot 1 tab PO DAILY 09/05/16 04/26/17 [Suzanna-Jaylin Rx Tablet] Insulin Lispro-LOW [humALOG LOW] See Protocol SC ACHS 12/31/16 04/26/17 Pantoprazole [Protonix EC Tab] 40 mg PO DAILY 12/31/16 04/26/17 Polyethylene Glycol 3350 [Miralax] 17 g PO BID 12/31/16 04/26/17 Review of Systems - Review of Systems Systems not reviewed;Unavailable: Altered Mental Status Constitutional: Fatigue, Fevers Respiratory: absent: SOB Cardiovascular: absent: Chest Pain Gastrointestinal: absent: Abdominal Pain Genitourinary Male: absent: Dysuria Musculoskeletal: absent: Back Pain Neurological: absent: Headache Endocrine: absent: Diaphoresis Physical Exam Vital Signs Reviewed: Yes Vital Signs Temp Pulse Resp BP Pulse Ox 04/27/17 00:28 90 20 99 04/26/17 22:57 94 H 16 131/81 95 04/26/17 21:21 100.1 F H 99 H 16 138/85 99 Temperature: Febrile Blood Pressure: Normal Pulse: Tachycardic Respiratory Rate: Normal Appearance: Positive for: Non-Toxic, Comfortable, Ill-Appearing Pain Distress: None Mental Status: Positive for: Lethargic - Systems Exam Head: Present: Atraumatic, Normocephalic Pupils: Present: PERRL Extroacular Muscles: Present: EOMI Conjunctiva: Present: Normal Mouth: Present: Moist Mucous Membranes Neck: Present: Normal Range of Motion Respiratory/Chest: Present: Clear to Auscultation, Good Air Exchange. No: Respiratory Distress, Accessory Muscle Use Cardiovascular: Present: Regular Rate and Rhythm, Normal S1, S2. No: Murmurs Abdomen: Present: Normal Bowel Sounds. No: Tenderness, Distention, Peritoneal Signs Upper Extremity: Present: Normal Inspection, Normal ROM, NORMAL PULSES, Neurovascularly Intact, Capillary Refill < 2s. No: Cyanosis, Edema, Tenderness , Swelling, Erythema, Deformity Lower Extremity: Present: Normal Inspection, NORMAL PULSES, Normal ROM, Neurovascularly Intact, Capillary Refill < 2 s. No: Edema, CALF TENDERNESS, Cyanosis, Tenderness, Swelling, Erythema, Deformity Neurological: Present: GCS=15, CN II-XII Intact, Speech Normal Skin: Present: Warm, Dry, Normal Color. No: Rashes Psychiatric: Present: Alert, Oriented x 3, Normal Insight, Normal Concentration Medical Decision Making ED Course and Treatment: 04/26/17 Impression: 86 year old male with fever and appears lethargic on exam. Plan: -- EKG -- Chest X-ray -- Labs -- Urinalysis -- Reassess and disposition Progress Notes: case d/w dr modi will admit for sepsis 04/27/17 02:42 - Lab Interpretations Lab Results: 04/26/17 22:40 04/26/17 22:40 Lab Results 04/26/17 22:55: Influenza Typ A,B (EIA) Negative for flu a/b 04/26/17 22:40: Sodium 139, Potassium 5.4 H, Chloride 95 L, Carbon Dioxide 28, Anion Gap 22 H, BUN 56 H, Creatinine 7.3 H, Est GFR ( Amer) 9, Est GFR ( Non-Af Amer) 7, Random Glucose 150 H, Calcium 9.4, Phosphorus 4.5, Magnesium 1.9 , Total Bilirubin 0.5, AST 17 D, ALT 26, Alkaline Phosphatase 74, Total Protein 7.8, Albumin 4.0, Globulin 3.8, Albumin/Globulin Ratio 1.1 04/26/17 22:40: PT 11.8, INR 1.03, APTT 29.2 04/26/17 22:40: WBC 15.9 H D, RBC 4.30, Hgb 12.4 L D, Hct 38.1 L, MCV 88.6 D, MCH 28.8, MCHC 32.5, RDW 17.5 H, Plt Count 178, MPV 10.8, Gran % 88.5 H, Lymph % (Auto) 4.7 L, [place] % (Auto) 6.7 H, Eos % (Auto) 0.0 L, Baso % (Auto) 0.1, Gran # 14.05 H, Lymph # (Auto) 0.7 L, [place] # (Auto) 1.1 H, Eos # (Auto) 0.0, Baso # (Auto) 0.02, Neutrophils % (Manual) 86 H, Band Neutrophils % 6 H, Lymphocytes % (Manual) 3 L, Monocytes % (Manual) 5, Platelet Evaluation Normal, Poikilocytosis (manual Slight, Anisocytosis (manual) 1+, Target Cells Slight I have reviewed the lab results: Yes - RAD Interpretation Radiology Orders: 04/26/17 21:42 CHEST PORTABLE [RAD] Stat Insurance Risk Manager: Radiologist - EKG Interpretation EKG Interpretation (Text): 04/27/17 01:58 sinus tachy [id number] changes Interpreted by ED Physician: Yes Type: 12 lead EKG - Medication Orders Current Medication Orders: Acetaminophen (Tylenol 325 Mg Supp) 325 mg RC Q6H PRN PRN Reason: FEVER>=99.5F Acetaminophen (Tylenol 325mg Tab) 650 mg PO Q6H PRN PRN Reason: FEVER>=99.5F Acetylcysteine (Acetylcysteine 20%) 4 ml IH [id number] [facility] Aspirin (Ecotrin) 81 mg PO DAILY [facility] Atorvastatin Calcium (Lipitor) 40 mg PO DIN FRANCISCO JAVIER Last Admin: 04/27/17 01:18 Dose: Not Given Non-Admin Reason: Patient Refused Benzonatate (Tessalon Perles) 100 mg PO TID FRANCISCO JAVIER Donepezil HCl (Aricept) 10 mg PO HS FRANCISCO JAVIER Last Admin: 04/27/17 01:18 Dose: Not Given Non-Admin Reason: Patient Refused Folic Acid (Folic Acid) 1 mg PO DAILY [facility] Meropenem 500 mg/ Sodium (Chloride) 100 mls @ 100 mls/hr IVPB 0000 FRANCISCO JAVIER PRN Reason: Protocol Stop: 05/06/17 00:59 Sodium Chloride (Sodium Chloride 0.9%) 250 mls @ 100 mls/hr IV .Q2H30M FRANCISCO JAVIER Stop: 04/27/17 02:44 Insulin Human Lispro (Humalog Low) 0 units SC ACHS FRANCISCO JAVIER PRN Reason: Protocol Isosorbide Mononitrate (Imdur) 120 mg PO DAILY [facility] Latanoprost (Xalatan Opht) 0 ml OU HS [facility] Levalbuterol HCl (Xopenex) 0.63 mg IH [id number] [facility] Losartan Potassium (Cozaar) 100 mg PO DAILY [facility] Ondansetron HCl (Zofran Inj) 4 mg IVP Q4H PRN PRN Reason: Nausea/Vomiting Pantoprazole Sodium (Protonix Ec Tab) 40 mg PO DAILY [facility] Polyethylene Glycol (Miralax) 17 gm PO BID [facility] Last Admin: 04/27/17 01:18 Dose: Not Given Non-Admin Reason: Patient Refused Sevelamer HCl (Renagel) 800 mg PO TID [facility] Tamsulosin HCl (Flomax) 0.4 mg PO DAILY [facility] Vitamin B Complex/Vit C/Folic Acid (Nephro-Jaylin) 1 tab PO DAILY [facility] Discontinued Medications Acetaminophen (Tylenol 325mg Tab) 650 mg PO STAT STA Stop: 04/26/17 22:10 Last Admin: 04/26/17 22:55 Dose: Not Given Non-Admin Reason: Patient Refused Vancomycin HCl (Vancomycin 1gm) 1 gm in 250 mls @ 167 mls/hr IVPB STAT STA PRN Reason: Protocol Stop: 04/27/17 00:24 Last Admin: 04/26/17 23:47 Dose: 167 mls/hr eMAR Start Stop Document 04/26/17 23:47 SS (Rec: 04/26/17 23:48 SS [id number]) Intravenous Solution Start Date 04/26/17 Start Time 23:47 End Date 04/27/17 End time 01:18 Total Infusion Time 91 Lorazepam (Ativan) 2 mg IVP ONCE ONE PRN Reason: Protocol Stop: 04/27/17 00:36 Last Admin: 04/27/17 01:18 Dose: 2 mg IVP Administration Document 04/27/17 01:18 SS (Rec: 04/27/17 01:18 SS [id number]) Charges for Administration # of IVP Administrations 1 Sodium Polystyrene Sulfonate (Kayexalate Susp) 30 gm PO STAT STA Stop: 04/26/17 23:56 - Scribe Statement The provider has reviewed the documentation as recorded by the Scribe Gali Rodriguez Provider Scribe Attestation: All medical record entries made by the Scribe were at my direction and personally dictated by me. I have reviewed the chart and agree that the record accurately reflects my personal performance of the history, physical exam, medical decision making, and the department course for this patient. I have also personally directed, reviewed, and agree with the discharge instructions and disposition. Disposition/Present on Arrival - Present on Arrival Any Indicators Present on Arrival: No History of DVT/PE: No History of Uncontrolled Diabetes: No Urinary Catheter: No History of Decub. Ulcer: No History Surgical Site Infection Following: None - Disposition Have Diagnosis and Disposition been Completed?: Yes Diagnosis: Sepsis Disposition: HOSPITALIZED Disposition Time: 23:45 Condition: FAIR
[2017-04-26 22:53] LABS: BASO # 0.02 K/mm3 (0.0-2.0); BASO % 0.1 % (0.0-3.0); GRAN # 14.05 (1.4-6.5); GRAN % 88.5 % (50.0-68.0); HEMOGLOBIN 12.4 g/dL (14.0-18.0); LYMPH # 0.7 (1.2-3.4); LYMPH % 4.7 % (22.0-35.0); MEAN CELL VOLUME 88.6 fl (80.0-105.0); MEAN CORPUSCULAR HEMOGLOBIN 28.8 pg (25.0-35.0); MEAN CORPUSCULAR HGB CONC 32.5 g/dl (31.0-37.0); MEAN PLATELET VOLUME 10.8 fl (7.0-11.0); MONO # 1.1 (0.1-0.6); MONO % 6.7 % (1.0-6.0); PLATELET COUNT 178 10^3/uL (120.0-450.0); RED CELL DISTRIBUTION WIDTH 17.5 % (11.5-14.5); WHITE BLOOD COUNT 15.9 10^3/ul (4.5-11.0)
[2017-04-26] MEDS ORDERED: Vancomycin 1gm in NS 250ml 1 GM/250 ML BAG IVPB STA (22:55)
[2017-04-26 23:05] LABS: ALB/GLOB RATIO 1.1 (1.1-1.8); CALCIUM 9.4 mg/dL (8.4-10.5); MAGNESIUM 1.9 mg/dL (1.7-2.2)
[2017-04-26 23:11] LABS: INR 1.03 (0.93-1.08); PARTIAL THROMBOPLASTIN TIME 29.2 Seconds (25.1-36.5); PROTHROMBIN TIME 11.8 SECONDS (9.4-12.5)
[2017-04-26] MEDS ORDERED: Ergocalciferol 50,000 Intl Units Cap PO SCH (23:45)
[2017-04-26] MEDS ORDERED: Sod Polystyrene Sulf 15 gm/60 ml Susp PO STA (23:55)
[2017-04-27 00:07] LABS: BAND 6 % (0-2); LYMPHOCYTE 3 % (22.0-35.0); MONOCYTE 5 % (1.0-6.0); NEUTROPHIL 86 % (50.0-70.0); PLATELET ESTIMATE NORMAL (NORMAL); POIKILOCYTOSIS SLIGHT
[2017-04-27 00:08] LABS: ANISOCYTOSIS 1+; TARGET CELLS SLIGHT
[2017-04-27] MEDS ORDERED: Sodium Chloride 0.9% 250 ML IV SCH (00:15)
--- NOTE | 2017-04-27 00:46 | CP.PCM.HP ---
History of Present Illness - History of Present Illness History of Present Illness: 86 year old male with past medical history of ESRD on HD (T/T/S), prior HCAP, CAD s/p stenting, GI bleeds, CVA, Gastric cancer, Mitral valve prolapse, DM, and dementia, BPH, HTN presents to the ED because of vomiting, fever, and weakness. Patient has baseline dementia and was non cooperative. History obtained over phone from . states patient was watching TV in the living room around 6 pm when it was time to change his Depends pad. When told him to get up, patient stated he felt weak and was shaking. states the patient told her he felt cold and weak and wanted to lay down into bed. Once in bed the felt the patients temperature was warm. When she stepped away an d returned patient had vomited. The vomit was non bloody, non bilious and was the soup the patient had eaten earlier. Patient states he is feeling fine and does not want to be in the hospital, states his sent him here for no reason. He does admit to nausea previously in the day but not currently. Patient denies chest pain, shortness of breath, abdominal pain or any other complaints at this time. PMD: Dr. Nazario PMH: ESRD on HD (T/T/S), prior HCAP, CAD s/p stenting, GI bleeds, CVA, Gastric cancer, Mitral valve prolapse, DM, and dementia, HTN, BPH PSH: AVF L forearm All: NDKA SH: Hx tobacco use, no reported EtOH or Illicit rug use Meds: See MAR Present on Admission - Present on Admission Any Indicators Present on Admission: No Review of Systems - Constitutional Constitutional: absent: Chills, Headache, Weakness - EENT Eyes: absent: Blurred Vision Nose/Mouth/Throat: absent: Nasal Congestion - Cardiovascular Cardiovascular: absent: Chest Pain, Dyspnea, Lightheadedness, Radiating Pain - Respiratory Respiratory: absent: Cough, Dyspnea - Gastrointestinal Gastrointestinal: Nausea, Vomiting. absent: Abdominal Pain, Constipation - Genitourinary Genitourinary: absent: Change in Urinary Stream, Difficulty Urinating - Musculoskeletal Musculoskeletal: absent: Abnormal Gait, Muscle Weakness, Numbness, Tingling - Neurological Neurological: absent: Numbness, Paresthesias, Tingling Past Patient History - Infectious Disease Hx of Infectious Diseases: None - Tetanus Immunizations Tetanus Immunization: Unknown - Past Medical History & Family History Past Medical History?: Yes - Past Social History Smoking Status: Never Smoked - CARDIAC Hx Cardiac Disorders: Yes (OR, cabg, cad) Hx Congestive Heart Failure: Yes Hx Hypertension: Yes Hx Mitral Valve Prolapse: Yes Hx Peripheral Edema: Yes Hx Peripheral Vascular Disease: Yes - PULMONARY Hx Respiratory Disorders: Yes (H/O OF SMOKING CIGARETTES.QUIT) - NEUROLOGICAL Hx Neurological Disorder: Yes HX Cerebrovascular Accident: Yes Hx Dementia: Yes - HEENT Hx HEENT Problems: Yes (WEARS RX GLASSES) Hx Cataracts: Yes (b/l) Hx Glaucoma: Yes Other/Comment: hx of epistaxix - RENAL Hx Chronic Kidney Disease: Yes Hx Dialysis: Yes (simón brown) Date of Last Dialysis Treatment: 12/30/16 Hx Kidney Stones: Yes Hx Renal Failure: Yes (ESRD on Hemo) Other/Comment: renal cyst, voids as per pt - ENDOCRINE/METABOLIC Hx Endocrine Disorders: Yes Hx Diabetes Mellitus Type 2: Yes (IDDM) - HEMATOLOGICAL/ONCOLOGICAL Hx Blood Disorders: Yes (LOWER GI BLEED) - INTEGUMENTARY Hx Dermatological Problems: No - MUSCULOSKELETAL/RHEUMATOLOGICAL Hx Musculoskeletal Disorders: Yes Hx Arthritis: Yes Hx Unsteady Gait: Yes (walker) - GASTROINTESTINAL Hx Gastrointestinal Disorders: Yes (lower gi bleed) Hx Diverticulitis: Yes Hx Gastroesophageal Reflux: Yes - GENITOURINARY/GYNECOLOGICAL Hx Genitourinary Disorders: Yes (OLIGURIA,ESRD ON HD MWF) Hx Incontinence: Yes - PSYCHIATRIC Hx Psychophysiologic Disorder: No Hx Substance Use: No Other/Comment: dimentia - SURGICAL HISTORY Hx Cholecystectomy: Yes Hx Coronary Stent: Yes (x1) Other/Comment: AV shunt placement.left forearm - ANESTHESIA Hx Anesthesia: Yes Hx Anesthesia Reactions: No Hx Malignant Hyperthermia: No Meds Allergies/Adverse Reactions: Allergies Allergy/AdvReac Type Severity Reaction Status Date / Time No Known Allergies Allergy Verified 04/26/17 21:15 Physical Exam - Constitutional Appears: Non-toxic, No Acute Distress, Agitated - Head Exam Head Exam: ATRAUMATIC, NORMAL INSPECTION, NORMOCEPHALIC - Eye Exam Eye Exam: EOMI, Normal appearance - ENT Exam ENT Exam: Mucous Membranes Dry - Neck Exam Neck exam: Negative for: Lymphadenopathy, Tenderness - Respiratory Exam Respiratory Exam: Clear to Auscultation Bilateral, NORMAL BREATHING PATTERN - Cardiovascular Exam Cardiovascular Exam: REGULAR RHYTHM, +S1, +S2 - GI/Abdominal Exam GI & Abdominal Exam: Normal Bowel Sounds, Soft. absent: Tenderness - Extremities Exam Extremities exam: Positive for: pedal pulses present. Negative for: pedal edema - Neurological Exam Neurological exam: Alert, Oriented x3 Additional comments: Upper extremity strenth 4/5 B/L Lower Extremity strength 3/5 B/L sensation in tact upper and lower bilaterally - Skin Skin Exam: Normal Color, Warm Results - Vital Signs Recent Vital Signs: Last Vital Signs Temp 100.1 F H 04/26/17 21:21 Pulse 94 H 04/26/17 22:57 Resp 16 04/26/17 22:57 BP 131/81 04/26/17 22:57 Pulse Ox 95 04/26/17 22:57 - Labs Result Diagrams: 04/26/17 22:40 04/26/17 22:40 Assessment & Plan - Assessment and Plan (Free Text) Assessment: 86 year old male with past medical history of ESRD on HD (T/T/S), prior HCAP, CAD s/p stenting, GI bleeds, CVA, Gastric cancer, Mitral valve prolapse, DM, and dementia, BPH, HTN presents to the ED because of vomiting, fever, and weakness. Plan: 1. Weakness with Vomiting - EKG pending official read - xray, pending official read - Obstructive series abdominal pending - CRP pending - ESR pending - procal pending - lactic acid pending - liver profile pending - CT head pending - neurochecks - seizure precautions - PT evaluation - zofran 2. Hyperkalemia - K 5.4 - monitor - NS 3. Leukocytosis - WBC 15.9 - tmax: 100.1 - procal pending - lactic acid pending - blood cultures pending - urine cultures pending - ID consulted, Boghossian - Meropenem and Vanco given in ED 3. ESRD - Cr 7.3 - Hemodialysis (T/T/S) - Nephrology consulted - Renal Diet - Renal supplements - acetylcysteine 4. Diabetes Mellitus - Levemir HS - Lispro ISS - Accuchecks ACHS 5. Dementia - Cont Donepezil 6. H/O CAD - Aspirin 81mg - Lipitor 40mg - lipid profile pending 7. HTN - Cont Cozaar, Imdur, - Monitor 8. COPD - Cont Tessalon Perles, Xopenex 9. H/O Glaucoma - Cont Latanoprost 10. H/O BPH - Cont Flomax GI/DVT PPx - Protonix - SCDs - AC contraindicated due h/o GI Bleed Patient and plan discussed with Dr. Nazario
[2017-04-27] MEDS: POLYETHYLENE GLYCOL 3350 17 GM/Dose PACKET PO SCH ×3 (01:18→21:19)
--- NOTE | 2017-04-27 03:14 | CT ---
EXAM: CT Head Without Intravenous Contrast CLINICAL HISTORY: 86 years old, male; Signs and symptoms; Altered mental status/memory loss; Additional info: Rule out stroke TECHNIQUE: Axial computed tomography images of the head/brain without intravenous contrast. All CT scans at this facility use one or more dose reduction techniques, viz.: automated exposure control; ma/kV adjustment per patient size (including targeted exams where dose is matched to indication; i.e. head); or iterative reconstruction technique. Coronal and sagittal reformatted images were created and reviewed. COMPARISON: CT - HEAD W/O CONTRAST 2016-11-18 20:30 FINDINGS: Brain: Moderate atrophy. No intracranial hemorrhage. No mass. Few scattered foci of decreased attenuation within periventricular/subcortical white matter. Probable chronic lacunar infarcts within basal ganglia. No definite edema. Ventricles: No hydrocephalus. Bones/joints: No acute fracture. Soft tissues: Unremarkable. Vasculature: Atherosclerotic disease of intracranial arteries. Sinuses: No acute sinusitis. Mastoid air cells: No mastoid effusion. Orbits: Unremarkable as visualized. IMPRESSION: 1. Nonspecific white matter changes. Acute infarction may be CT occult within first 24 hours. If a focal deficit persists, consider followup CT or MRI for further evaluation. 2. Incidental/non-acute findings are described above.
[2017-04-27] MEDS: Meropenem 500 MG in Sodium Chloride 0.9% 100 ML IVPB SCH ×2 (05:22→23:36)
[2017-04-27 07:57] LABS: BASO # 0.01 K/mm3 (0.0-2.0); BASO % 0.1 % (0.0-3.0); EOS % 0.1 % (1.5-5.0); GRAN # 11.66 (1.4-6.5); GRAN % 83.3 % (50.0-68.0); HEMOGLOBIN 11.3 g/dL (14.0-18.0); LYMPH # 1.2 (1.2-3.4); LYMPH % 8.2 % (22.0-35.0); MEAN CELL VOLUME 86.6 fl (80.0-105.0); MEAN CORPUSCULAR HEMOGLOBIN 28.6 pg (25.0-35.0); MONO # 1.2 (0.1-0.6); MONO % 8.3 % (1.0-6.0); RBC 3.95 10^6/uL (3.5-6.1); RED CELL DISTRIBUTION WIDTH 17.3 % (11.5-14.5)
[2017-04-27] MEDS: Insulin Lispro (humaLOG) LOW Coverage SC SCH ×3 (08:15→22:00)
[2017-04-27 08:26] LABS: ALBUMIN 3.7 g/dL (3.0-4.8); BILIRUBIN,DIRECT 0.5 mg/dL (0.0-0.4); MAGNESIUM 1.9 mg/dL (1.7-2.2)
[2017-04-27] MEDS: Levalbuterol 0.63 MG/3 ML Inhal Soln UD IH SCH ×3 (08:52→20:23)
[2017-04-27] MEDS: Acetylcysteine 20% Inhal Soln (4ml) IH SCH ×3 (08:52→20:23)
--- NOTE | 2017-04-27 10:29 | RAD ---
HISTORY: Sepsis Patient COMPARISON: 12/31/2016 FINDINGS: LUNGS: No active pulmonary disease. PLEURA: No significant pleural effusion identified, no pneumothorax apparent. CARDIOVASCULAR: Mild cardiomegaly OSSEOUS STRUCTURES: No significant abnormalities. VISUALIZED UPPER ABDOMEN: Normal. OTHER FINDINGS: None. IMPRESSION: No active disease.
--- NOTE | 2017-04-27 10:37 | RAD ---
HISTORY: vomiting/gastroparesis COMPARISON: 02/03/2016 FINDINGS: BOWEL: Normal. No obstruction. No free air. Severe constipation BONES: Normal. OTHER FINDINGS: None. IMPRESSION: Severe constipation
--- NOTE | 2017-04-27 13:05 | CARD ---
APPROVED REPORT EKG Measurement Heart [id number] [place] 216P [id number] <Conclusion> Sinus tachycardia with 1st degree AV block Right bundle branch block Left anterior fascicular block Bifascicular block Abnormal ECG
[2017-04-27] MEDS: Multivitamin Vitamin B Complex (Nephro-Vite) Tab PO SCH (13:08)
[2017-04-27] MEDS: Pantoprazole 40 mg EC Tab PO SCH (13:09)
[2017-04-27] MEDS: Latanoprost 2.5 ml Opht Soln OU SCH (21:19)
--- NOTE | 2017-04-27 23:29 | HP ---
ADDENDUM Please refer to the detailed history and physical examination of the medical services assistant done earlier today The patient is examined in the dialysis area. The patient is lying in the bed. The patient's vital signs, diagnostic data, presentation, chief complaint reviewed. The patient presented to the emergency room by the EMS with complaints of nausea, vomiting, weakness, and fever. According to the ER physician evaluation and medical services assistant, according to the , the patient was in usual state of health, watching TV. The patient started complaining of weakness, shakiness, and felt cold and weak. The patient was found to be warm according to the relation. The patient also had an episode of nonbilious vomiting. As mentioned, the patient was examined. The patient's vital signs, diagnostic data, lab data, imaging studies, cardiovascular studies, and ER physician evaluation and medical services assistant's history and physical examination reviewed. IMPRESSION AND PLAN: 1. Low-grade fever of 100, etiology undetermined. 2. Questionable systemic inflammatory response syndrome. 3. Tachycardia. 4. Leukocytosis and granulocytosis. 5. Normocytic anemia. 6. Bandemia. 7. Elevated erythrocyte sedimentation rate of 48. 8. Non-hemolyzed hyperkalemia. 9. Increased anion gap metabolic acidosis. 10. End-stage renal disease, hemodialysis dependent via the left upper extremity AV fistula three times a week. 11. Insulin-requiring diabetes mellitus. 12. Hyperphosphatemia. 13. Secondary hyperparathyroidism. 14. History of noncompliance. According to the , the patient has stopped taking all his medications. 15. Cerebral cortical atrophy of the brain. 16. History of cerebral infarct. 17. Basal ganglia chronic lacunar infarct. 18. Intracranial atherosclerotic disease. 19. History of dementia. 20. History of diabetic gastroparesis and history of chronic constipation. 21. Severe constipation. 22. History of healthcare-associated pneumonia and history of aspiration pneumonia. 23. History of coronary artery disease, history of angioplasty. 24. Bifascicular block with right bundle-branch block and left anterior hemiblock. 25. Possible diabetic gastroparesis, symptomatic with symptoms of nausea and vomiting and also secondary to constipation. 26. Well-controlled insulin-requiring diabetes mellitus. 27. Prostatic hypertrophy. PLAN: At this time, the patient has been ordered repeat labs. PTH level, blood cultures ordered. Current consultation, 1. Infectious Disease. 2. Nephrology. 3. The patient's case referred for TCU. Procalcitonin level ordered. Current medications, 1. Mucomyst nebulizer 20% every 6 hours. 2. Aricept 10 mg daily. 3. Cozaar 100 mg daily. 4. Aspirin 81 mg daily. 5. The patient is ordered a stat fleet enema. 6. Flomax 0.4 mg daily. 7. Folic acid 1 mg daily. 8. Humalog low-dose sliding scale coverage a.c. and at bedtime. 9. Imdur 120 mg daily. 10. Lipitor 40 mg daily. 11. Meropenem 500 mg IV daily. 12. The patient is on MiraLax 17 gm twice a day. 13. Nephro-Jaylin one tablet daily. 14. Protonix 40 mg daily. 15. Renagel 800 mg three times a day. 16. Tessalon Perles 100 mg three times a day. 17. Tylenol 650 mg p.o. and suppository q.6 p.r.n. for temperature greater than or equal to 99.5. 18. The patient received a dose of vancomycin 1 gm in the ER. 19. The patient is on Xalatan eye drops. 20. Xopenex nebulizer 0.63 mg every 6 hours. 21. Zofran 4 mg IV q.4 p.r.n. The patient is on consistent carbohydrate diet. The patient is on neuro checks, seizure precaution. The patient has been ordered physical therapy and occupational therapy. The patient has been ordered out of bed to chair. At present, the patient will be continued on the above therapeutic intervention. The patient's further management will be depended upon the patient's clinical condition, hemodynamic status, as per the patient's response to therapeutic intervention, as per the patient's diagnostic test results and as per recommendation by all the physician involved in the care of the patient. For further details of history and physical examination, refer to the history and physical examination done by the medical services assistant today. Dictated and electronically signed, not read. Zeyad Nazario MD
--- NOTE | 2017-04-28 00:26 | CON ---
DATE: 04/27/2017 REASON FOR CONSULTATION: Need for dialysis, altered mental status, hyperkalemia. HISTORY OF PRESENTING ILLNESS: An 86-year-old male, known to me from outpatient hemodialysis, was brought to the emergency room late last night by because of fevers, altered mental status, confusion, chills for one day prior to presentation. In the emergency room, patient was found to have a temperature of 100.1. He was hemodynamically stable. His pressure was 138/85 and his pulse was 99. His WBC count was elevated at 15.9. He had a left shift with 89% polys and also 6% bands. Patient was admitted with sepsis and altered mental status. Patient was started on empiric antibiotics after cultures were drawn. He has been getting meropenem 500 mg. He also received 1 g of vancomycin in the emergency room. Currently, he is lying in bed. He is awake, he is alert. He is eating lunch. is at bedside. PAST MEDICAL AND SURGICAL HISTORY: NIDDM, hypertension, ESRD, CAD, CHF, dementia, anemia of chronic kidney disease, GI bleed, remote history of gastric CA. FAMILY HISTORY: Noncontributory. SOCIAL HISTORY: No smoking, no alcohol use, no IV drug abuse. ALLERGIES: NO KNOWN DRUG ALLERGIES. CURRENT MEDICATIONS: Include Mucomyst, Aricept, losartan 100, aspirin, Flomax, folic acid, insulin, Imdur 120, Lipitor, meropenem 500 mg q. 12, MiraLax, Protonix, Renagel, Tylenol, Xopenex, Zofran. REVIEW OF SYSTEMS: All systems are reviewed, pertinent positives as mentioned in history of presenting illness, rest unremarkable. PHYSICAL EXAMINATION: GENERAL: Elderly male, sitting in bed, in no acute distress at present. VITAL SIGNS: Blood pressure 128/70, heart rate 90, respiratory rate 18, temperature 98.2, T-max is 100.1. HEENT: Normocephalic, atraumatic, positive pallor. NECK: Supple, no JVD. LUNGS: Bilateral equal entry, bilateral equal expansion, no rales. CARDIAC: S1 and S2, regular rate and rhythm, no murmur, no rub. ABDOMEN: Soft, nondistended, nontender, bowel sounds present. EXTREMITIES: No lower extremity edema. LABORATORY DATA: WBC 14, hemoglobin 11, hematocrit 34, platelets 183. Sodium 137, potassium 4.9, chloride 99, CO2 25, BUN 63, creatinine 8.0, glucose 132, calcium 9.0, phosphorus 5.0, magnesium 1.9, hemoglobin A1c 6.6. Lactic acid 1.5, albumin 3.7, procalcitonin 33.5. ASSESSMENT: 1. Fever, leukocytosis, bandemia, altered mental status, source unclear. 2. Icg-ehmzwes-gjmbsfspa diabetes mellitus. 3. Hypertension. 4. Coronary artery disease. 5. End-stage renal disease. 6. Dementia. PLAN: 1. Follow up cultures. 2. Follow up influenza studies. 3. Continue empiric antibiotics. 4. Stable dialysis today. 5. Monitor fingersticks and maintain euglycemia. 6. Continue current antihypertensives. Brinda Ibarra MD
--- NOTE | 2017-04-28 01:57 | CON ---
DATE: 04/27/2017 The patient is in bed, was seen early this morning. CHIEF COMPLAINT: Low-grade fevers, flu-like symptoms. HISTORY OF PRESENT ILLNESS: This is an 86-year-old male with history of hypertension; diabetes; dementia; end-stage renal disease, on hemodialysis; history of non-ST elevation myocardial infarction; cerebrovascular accident; gastric cancer; coronary artery disease; anemia; prolapse mitral valve , who has had a history of cholecystectomy and AV shunt, who was admitted on this admission with diagnosis of sepsis. Infectious Disease consultation was requested. The patient was seen earlier this morning, he had low-grade fever, appeared to be comfortable, mild shortness of breath, did not verbalize. No chest pain, diarrhea, or constipation is reported. No nausea or vomiting reported at this time. He did have nausea and vomiting earlier. PAST MEDICAL HISTORY: Significant for hypertension, diabetes, dementia, non-ST elevation myocardial infarction, coronary artery disease, end-stage renal disease, cerebrovascular accident, gastric cancer, anemia, and mitral valve prolapse. PAST SURGICAL HISTORY: Significant for cholecystectomy, AV shunt. ALLERGIES: THE PATIENT HAS NO KNOWN ALLERGIES. MEDICATION: Medications at home reveal the patient to be on Lipitor, aspirin, isosorbide. PHYSICAL EXAMINATION: VITAL SIGNS: Temperature is 98, T-Max is 100.1, heart rate of 94, respiratory rate of 20, and blood pressure is 131/80. HEENT: Unremarkable. NECK: Supple. LUNGS: Decreased breath sounds. HEART: Normal S1 and S2. ABDOMEN: Soft, nontender. No rebound or guarding. LABORATORY EXAMINATION: Reveals the patient's white count of 15,000, hemoglobin of 12, platelets of 178. Sed rate is 48. Coagulation is noted. Chemistries reveal a BUN of 56, creatinine of 7.3. Procalcitonin is 33 and serology is noted, influenza is negative. The patient had a chest x-ray with no active disease and CAT scan of the head is negative and x-ray of the abdomen is noted. Blood cultures are pending. ASSESSMENT AND PLAN: This is an 86-year-old male with low-grade fevers, flu-like symptoms, tachycardia, leukocytosis, presenting, 1. SIRS, systemic inflammatory response syndrome, must rule out bacteremia versus urine as the source. Awaiting for workup results and culture results, urinalysis, urine culture, blood culture. Currently, the patient given an intermittent vancomycin and meropenem, and we will make further recommendations upon availability of initial results. Magdy Diego MD
[2017-04-28] MEDS: Levalbuterol 0.63 MG/3 ML Inhal Soln UD IH SCH ×5 (02:45→20:32)
[2017-04-28] MEDS: Acetylcysteine 20% Inhal Soln (4ml) IH SCH ×5 (02:45→20:32)
[2017-04-28 07:15] LABS: BASO # 0.02 K/mm3 (0.0-2.0); BASO % 0.3 % (0.0-3.0); EOS # 0.1 (0.0-0.7); EOS % 1.1 % (1.5-5.0); GRAN # 4.23 (1.4-6.5); GRAN % 59.8 % (50.0-68.0); HEMOGLOBIN 11.5 g/dL (14.0-18.0); LYMPH # 1.5 (1.2-3.4); LYMPH % 21.4 % (22.0-35.0); MEAN CELL VOLUME 88.2 fl (80.0-105.0); MEAN CORPUSCULAR HEMOGLOBIN 27.6 pg (25.0-35.0); MEAN CORPUSCULAR HGB CONC 31.3 g/dl (31.0-37.0); MEAN PLATELET VOLUME 11.9 fl (7.0-11.0); MONO # 1.2 (0.1-0.6); MONO % 17.4 % (1.0-6.0); RBC 4.17 10^6/uL (3.5-6.1); RED CELL DISTRIBUTION WIDTH 17.7 % (11.5-14.5); WHITE BLOOD COUNT 7.1 10^3/ul (4.5-11.0)
[2017-04-28 08:03] LABS: ALBUMIN 3.7 g/dL (3.0-4.8); BILIRUBIN,DIRECT 0.6 mg/dL (0.0-0.4); CALCIUM 9.3 mg/dL (8.4-10.5)
--- NOTE | 2017-04-28 09:13 | CP.PCM.PN ---
Subjective - Date & Time of Evaluation Date of Evaluation: 04/28/17 Time of Evaluation: 09:10 - Subjective Subjective: Medicine Progress Note: Patient seen and assessed at bedside. No acute events overnight noted by nursing staff or patient. Patient alert and oriented to person and place, but not to time or event. Patient denies any complaints at this time, including fever, chills, headache, chest pain, SOB, abdominal pain, N/V, diarrhea, pain with urination and numbness/tingling/weakness of any extremity. Objective - Vital Signs/Intake and Output Vital Signs (last 24 hours): Temp Pulse Resp BP Pulse Ox 98.5 F 84 20 131/74 100 04/28/17 06:00 04/28/17 06:00 04/28/17 06:00 04/28/17 06:00 04/28/17 06:00 Intake and Output: 04/28/17 04/28/17 06:59 18:59 Intake Total 150 Balance 150 - Medications Medications: Current Medications Acetaminophen (Tylenol 325 Mg Supp) 325 mg RC Q6H PRN PRN Reason: FEVER>=99.5F Acetaminophen (Tylenol 325mg Tab) 650 mg PO Q6H PRN PRN Reason: FEVER>=99.5F Acetylcysteine (Acetylcysteine 20%) 4 ml IH [id number] [facility] Last Admin: 04/28/17 07:30 Dose: Not Given Aspirin (Ecotrin) 81 mg PO DAILY [facility] Last Admin: 04/27/17 13:08 Dose: 81 mg Atorvastatin Calcium (Lipitor) 40 mg PO DIN [facility] Last Admin: 04/27/17 21:18 Dose: 40 mg Benzonatate (Tessalon Perles) 100 mg PO TID [facility] Last Admin: 04/27/17 21:19 Dose: 100 mg Donepezil HCl (Aricept) 10 mg PO HS [facility] Last Admin: 04/27/17 21:18 Dose: 10 mg Folic Acid (Folic Acid) 1 mg PO DAILY [facility] Last Admin: 04/27/17 13:08 Dose: 1 mg Meropenem 500 mg/ Sodium (Chloride) 100 mls @ 100 mls/hr IVPB 0000 [facility] PRN Reason: Protocol Stop: 05/06/17 00:59 Last Admin: 04/27/17 23:36 Dose: 100 mls/hr Insulin Human Lispro (Humalog Low) 0 units SC ACHS [facility] PRN Reason: Protocol Last Admin: 04/27/17 22:00 Dose: Not Given Isosorbide Mononitrate (Imdur) 120 mg PO DAILY [facility] Last Admin: 04/27/17 13:08 Dose: 120 mg Latanoprost (Xalatan Opht) 0 ml OU HS [facility] Last Admin: 04/27/17 21:19 Dose: Not Given Levalbuterol HCl (Xopenex) 0.63 mg IH [id number] [facility] Last Admin: 04/28/17 07:30 Dose: Not Given Losartan Potassium (Cozaar) 100 mg PO DAILY [facility] Last Admin: 04/27/17 13:09 Dose: 100 mg Ondansetron HCl (Zofran Inj) 4 mg IVP Q4H PRN PRN Reason: Nausea/Vomiting Pantoprazole Sodium (Protonix Ec Tab) 40 mg PO DAILY [facility] Last Admin: 04/27/17 13:09 Dose: 40 mg Polyethylene Glycol (Miralax) 17 gm PO BID [facility] Last Admin: 04/27/17 21:19 Dose: 17 gm Sevelamer HCl (Renagel) 800 mg PO TID [facility] Last Admin: 04/27/17 21:18 Dose: 800 mg Tamsulosin HCl (Flomax) 0.4 mg PO DAILY [facility] Last Admin: 04/27/17 13:09 Dose: 0.4 mg Vitamin B Complex/Vit C/Folic Acid (Nephro-Jaylin) 1 tab PO DAILY [facility] Last Admin: 04/27/17 13:08 Dose: 1 tab - Labs Labs: 04/28/17 06:00 04/28/17 06:00 PT 11.8 SECONDS (9.4-12.5) 04/26/17 22:40 INR 1.03 (0.93-1.08) 04/26/17 22:40 APTT 29.2 Seconds (25.1-36.5) 04/26/17 22:40 - Constitutional Appears: Non-toxic, No Acute Distress - Head Exam Head Exam: ATRAUMATIC, NORMAL INSPECTION, NORMOCEPHALIC - Eye Exam Eye Exam: EOMI, Normal appearance, PERRL - ENT Exam ENT Exam: Mucous Membranes Moist, Normal Exam - Neck Exam Neck Exam: Full ROM, Normal Inspection. absent: Lymphadenopathy - Respiratory Exam Respiratory Exam: Clear to Ausculation Bilateral, NORMAL BREATHING PATTERN. absent: Accessory Muscle Use, Chest Wall Tenderness, Decreased Breath Sounds, Prolonged Expiratory Phase, Rales, Rhonchi, Wheezes, Respiratory Distress, Stridor - Cardiovascular Exam Cardiovascular Exam: REGULAR RHYTHM, +S1, +S2. absent: Murmur - GI/Abdominal Exam GI & Abdominal Exam: Soft, Normal Bowel Sounds. absent: Tenderness - Extremities Exam Extremities Exam: Full ROM, Normal Capillary Refill, Normal Inspection. absent : Calf Tenderness, Joint Swelling, Pedal Edema, Tenderness - Neurological Exam Neurological Exam: Alert, Awake. absent: Oriented x3 (Oriented to person and place, not to time or event) - Psychiatric Exam Psychiatric exam: Normal Affect, Normal Mood - Skin Skin Exam: Dry, Intact, Normal Color, Warm Assessment and Plan - Assessment and Plan (Free Text) Assessment: 86 year old male with a past medical history significant for ESRD on HD (T/T/S) , prior HCAP, CAD s/p stenting, GI bleeds, CVA, Gastric cancer, Mitral valve prolapse, DM, dementia, BPH, and HTN who presented with vomiting, fever, and weakness. Patient found to have SIRS and no source has been identified. No acute findings were found on CT Head or Chest X-Ray. Urinalysis pending. Currently on empiric Merrem with ID consulted. Patient recommended for TCU on PT evaluation. Plan: 1. SIRS -Patient with tachycardia and leukocytosis without tachypnea or fever on admission -Chest X-Ray showing no active disease -Abdominal X-Ray showing severe constipation -Influenza serology negative -Blood cultures with no growth for 24 hours -Urinalysis and Urine Culture pending -Currently without fever, tachycardia, tachypnea or leukocytosis; Lactic Acid within normal limits -Procal, ESR and CRP found to be elevated -Continue Merrem IVPB (Day 2) -Continue Tylenol PRN for fever -Continue Zofran PRN for vomiting -Continue Miralax daily -ID consulted, all recommendations appreciated 2. AMS in setting of Dementia -CT Head negative for any acute intracranial abnormalities -MRI Brain without contrast pending -Alert and oriented to person and place but not to time or event -Intermittent refusal of medication administration noted to be a chronic issue -Continue Aricept -Continue neurochecks -Neurology consulted, all recommendations appreciated -PT/OT recommending TCU upon discharge 3. ESRD on HD (T//) -BUN/Creatinine stable at patients baseline -Continue inpatient HD -Continue Nephrovite and Renagel -Continue to monitor kidney function and electrolytes with daily CMP and Mag/ Phos -Nephrology consulted, all recommendations appreciated 4. History of DM2 with associated Glaucoma -SSI-Low and Accuchecks ACHS -Continue Lantoprost ophthalmic drops -Carbohydrate Consistent Diet 5. History of COPD -Continue Xopenex, Tessalon Perles and Mucormyst 6. History of CAD -Continue ASA and Imdur 7. History of HTN -Continue Cozaar 8. History of HLD -Continue Lipitor 9. History of Urinary Retention -Continue Flomax GI Prophylaxis: Protonix DVT Prophylaxis: SCD's Patient seen and case discussed with attending, Dr. Nazario.
[2017-04-28] MEDS: Multivitamin Vitamin B Complex (Nephro-Vite) Tab PO SCH (11:11)
[2017-04-28] MEDS: Pantoprazole 40 mg EC Tab PO SCH (11:12)
[2017-04-28] MEDS: POLYETHYLENE GLYCOL 3350 17 GM/Dose PACKET PO SCH ×2 (11:12→18:52)
[2017-04-28] MEDS: Insulin Lispro (humaLOG) LOW Coverage SC SCH ×4 (11:12→22:32)
--- NOTE | 2017-04-28 14:23 | PN ---
DATE: 04/28/2017 SUBJECTIVE: The patient is seen lying in bed. He appears comfortable. He does not appear to be in any kind of distress. PHYSICAL EXAMINATION: VITAL SIGNS: Blood pressure 127/72, heart rate 82, respiratory rate 17, temperature 97.8. HEENT: Normocephalic, atraumatic. NECK: Supple, no JVD. LUNGS: Bilateral equal air entry, no rales. CARDIAC: S1 and S2, regular rate and rhythm, no murmur, no rub. ABDOMEN: Soft, nondistended, nontender, bowel sounds present. EXTREMITIES: No lower extremity edema. INTAKE AND OUTPUT: Not charted. LABORATORY DATA: WBC 7, hemoglobin 11.5, hematocrit 37, platelets 168. Sodium 138, potassium 4.7, chloride 96, CO2 of 30, BUN 34, creatinine 5.6, glucose 114, calcium 9.3, phosphorus 4.7, magnesium 2.0, albumin 3.7. CURRENT MEDICATIONS: Mucomyst, Aricept, Cozaar, Ecotrin, Flomax, folic acid, insulin, Imdur, Lipitor, meropenem, MiraLax, Nephro-Jaylin, Protonix, Renagel, Tessalon Perles, Tylenol, Zofran. ASSESSMENT: 1. Fever, leukocytosis, altered mental status, source of sepsis unclear. 2. Azm-ytwekvg-wpfiqkajg diabetes mellitus. 3. Hypertension. 4. Dementia. 5. End-stage renal disease. 6. Anemia of chronic kidney disease. PLAN: 1. Continue empiric antibiotics. 2. Dialysis again tomorrow. 3. Monitor fingersticks. 4. Continue antihypertensives. Brinda Ibarra MD
--- NOTE | 2017-04-28 16:59 | CP.PCM.PN ---
Subjective - Date & Time of Evaluation Date of Evaluation: 04/28/17 Time of Evaluation: 11:35 - Subjective Subjective: Patient is more awake, no fevers overnight, no sore throat, no abdominal pain, no diarrhea. Objective - Vital Signs/Intake and Output Vital Signs (last 24 hours): Temp Pulse Resp BP Pulse Ox 98.5 F 84 20 131/74 100 04/28/17 06:00 04/28/17 06:00 04/28/17 06:00 04/28/17 06:00 04/28/17 06:00 Intake and Output: 04/28/17 04/28/17 06:59 18:59 Intake Total 150 Balance 150 - Medications Medications: Current Medications Acetaminophen (Tylenol 325 Mg Supp) 325 mg RC Q6H PRN PRN Reason: FEVER>=99.5F Acetaminophen (Tylenol 325mg Tab) 650 mg PO Q6H PRN PRN Reason: FEVER>=99.5F Acetylcysteine (Acetylcysteine 20%) 4 ml IH [id number] [facility] Last Admin: 04/28/17 07:30 Dose: Not Given Aspirin (Ecotrin) 81 mg PO DAILY [facility] Last Admin: 04/27/17 13:08 Dose: 81 mg Atorvastatin Calcium (Lipitor) 40 mg PO DIN [facility] Last Admin: 04/27/17 21:18 Dose: 40 mg Benzonatate (Tessalon Perles) 100 mg PO TID [facility] Last Admin: 04/27/17 21:19 Dose: 100 mg Donepezil HCl (Aricept) 10 mg PO HS [facility] Last Admin: 04/27/17 21:18 Dose: 10 mg Folic Acid (Folic Acid) 1 mg PO DAILY [facility] Last Admin: 04/27/17 13:08 Dose: 1 mg Meropenem 500 mg/ Sodium (Chloride) 100 mls @ 100 mls/hr IVPB 0000 [facility] PRN Reason: Protocol Stop: 05/06/17 00:59 Last Admin: 04/27/17 23:36 Dose: 100 mls/hr Insulin Human Lispro (Humalog Low) 0 units SC ACHS [facility] PRN Reason: Protocol Last Admin: 04/27/17 22:00 Dose: Not Given Isosorbide Mononitrate (Imdur) 120 mg PO DAILY [facility] Last Admin: 04/27/17 13:08 Dose: 120 mg Latanoprost (Xalatan Opht) 0 ml OU HS [facility] Last Admin: 04/27/17 21:19 Dose: Not Given Levalbuterol HCl (Xopenex) 0.63 mg IH [id number] [facility] Last Admin: 04/28/17 07:30 Dose: Not Given Losartan Potassium (Cozaar) 100 mg PO DAILY [facility] Last Admin: 04/27/17 13:09 Dose: 100 mg Ondansetron HCl (Zofran Inj) 4 mg IVP Q4H PRN PRN Reason: Nausea/Vomiting Pantoprazole Sodium (Protonix Ec Tab) 40 mg PO DAILY [facility] Last Admin: 04/27/17 13:09 Dose: 40 mg Polyethylene Glycol (Miralax) 17 gm PO BID [facility] Last Admin: 04/27/17 21:19 Dose: 17 gm Sevelamer HCl (Renagel) 800 mg PO TID [facility] Last Admin: 04/27/17 21:18 Dose: 800 mg Tamsulosin HCl (Flomax) 0.4 mg PO DAILY [facility] Last Admin: 04/27/17 13:09 Dose: 0.4 mg Vitamin B Complex/Vit C/Folic Acid (Nephro-Jaylin) 1 tab PO DAILY [facility] Last Admin: 04/27/17 13:08 Dose: 1 tab - Labs Labs: 04/28/17 06:00 04/28/17 06:00 PT 11.8 SECONDS (9.4-12.5) 04/26/17 22:40 INR 1.03 (0.93-1.08) 04/26/17 22:40 APTT 29.2 Seconds (25.1-36.5) 04/26/17 22:40 - Constitutional Appears: Non-toxic, Chronically Ill - Head Exam Head Exam: NORMAL INSPECTION - ENT Exam ENT Exam: Mucous Membranes Moist - Neck Exam Neck Exam: absent: Meningismus - Respiratory Exam Respiratory Exam: Decreased Breath Sounds - Cardiovascular Exam Cardiovascular Exam: +S1, +S2 - GI/Abdominal Exam GI & Abdominal Exam: Soft. absent: Tenderness Assessment and Plan - Assessment and Plan (Free Text) Plan: Assessment SIRS R/O UTI history of sepsis due to HCAP, bilateral lower lobes, on top of bilateral pleural effusion and volume overload dementia history of sepsis from healthcare-associated pneumonia on top of non-ST elevation MO with acute congestive heart failure history of GI bleeding ESRD on HD cornoary artery disease Cerebrovascular accident Gastric cancer Mitral valve prolapse Plan continue Merrem day 2 pending final culture results will continue to monitor clinically
[2017-04-28] MEDS: Latanoprost 2.5 ml Opht Soln OU SCH (22:30)
[2017-04-29] MEDS: Meropenem 500 MG in Sodium Chloride 0.9% 100 ML IVPB SCH (00:16)
--- NOTE | 2017-04-29 01:14 | PN ---
DATE: 04/28/2017 SUBJECTIVE: The patient is seen in room 372, bed 1. The patient is seen lying in the bed. The patient slept overnight according to the nurses' notes. The patient was attempted to be given Fleet Enema yesterday, but the patient was combating and refusing. OBJECTIVE: VITAL SIGNS: T-max 98.5 to 97.8, pulse 82, telemetry shows sinus rhythm, blood pressure 127/72, 131/78, respirations 20, O2 sat 100%. GENERAL: The patient was seen lying in the bed. HEENT: Head examination normocephalic, atraumatic. HEENT examination shows pinkish pale conjunctivae. Anicteric sclerae. No oropharyngeal lesion. NECK: No neck rigidity. Soft carotid bruit. CHEST: Kyphosis. LUNGS: Shows no rales, crackles or wheezing. CARDIOVASCULAR: S1, S2, regular rhythm. Positive systolic murmur left sternal border, right second intercostal space. ABDOMEN: Soft. Positive bowel sounds. No hepatosplenomegaly noted. No guarding. No rigidity. No rebound tenderness. GENITALIA: Male. RECTAL: Examination is deferred. EXTREMITIES: Show positive left upper extremity AV fistula, positive thrill. Lower extremity shows no pitting edema, no calf numbness, no Homans' sign. MUSCULOSKELETAL: Shows a body mass index of 26. NEUROLOGIC: The patient is alert, awake, responsive, oriented to person. Not oriented to place, year, date, month. DIAGNOSTICS: April 28, WBC 7.1, hemoglobin/hematocrit 11.5, 36.8, platelets 168. Sodium of 138; potassium 4.7; chloride 96; CO2 30; anion gap 18; BUN 34; creatinine 5.6; GFR 12; glucose 154, 152, 114; calcium 9.3; phosphorus 4.7; magnesium 2.0. LFTs are normal. Influenza is negative. Blood cultures are negative. IMPRESSION: 1. Systemic inflammatory response syndrome. 2. Dementia with behavioral disorder. 3. Hypertension. 4. Poor compliance secondary to dementia. 5. Leukocytosis with granulocytosis and bandemia. 6. Elevated erythrocyte sedimentation rate of 48. 7. Well-controlled insulin-requiring diabetes mellitus with hemoglobin A1c of 6.6. 8. Elevated C-reactive protein of greater than 15. 9. Secondary hyperparathyroidism with elevated PTH of 198. 10. Hyperprocalcitoninemia of greater than 33. 11. Non-hemolyzed hyperkalemia. 12. Severe constipation. 13. Left anterior hemiblock, right bundle-branch block and bifascicular block. PLAN: 1. At this time, the patient was seen by Nephrology, Infectious Disease. 2. The patient refused MiraLax. 3. The patient refused Fleet Enema. 4. The patient has been ordered repeat labs. 5. Final blood culture results pending. CURRENT CONSULTATION: 1. Infectious disease. 2. Nephrology. CURRENT MEDICATIONS: 1. Mucomyst nebulizer 20% 4 mL q.6 hours. 2. Aricept 10 mg at bedtime. 3. Cozaar 100 mg daily. 4. Aspirin 81 mg daily. 5. Flomax 0.4 mg daily. 6. Folic acid 1 mg daily. 7. Humalog low-dose sliding scale coverage. 8. Imdur 120 mg daily. 9. Lipitor 40 mg daily. 10. Meropenem 500 mg IV daily. 11. MiraLax 17 g twice a day. 12. Nephro-Jaylin 1 tablet daily. 13. Protonix 40 mg daily. 14. Renagel 800 mg three times a day. 15. Tessalon Perles 100 mg three times a day. 16. Tylenol 650 q.6 p.r.n. 17. Xalatan eye drops. 18. Xopenex nebulizer 0.63 mg every 6 hours. 19. Zofran 4 mg IV q.4 hours p.r.n. The patient's MRI of the brain is ordered, pending. The patient is on consistent carbohydrate diet. Telemetry was discontinued. The patient has been ordered out of bed, SAMAN stockings, SCDs, physical therapy, occupational therapy ordered. The patient's referral made to TCU. The patient seen by physical therapist yesterday. Discharge recommendation was TCU. Zeyad Nazario MD
[2017-04-29] MEDS: Acetylcysteine 20% Inhal Soln (4ml) IH SCH ×4 (02:06→19:55)
[2017-04-29] MEDS: Levalbuterol 0.63 MG/3 ML Inhal Soln UD IH SCH ×4 (02:06→19:55)
[2017-04-29 07:53] LABS: BASO # 0.02 K/mm3 (0.0-2.0); BASO % 0.3 % (0.0-3.0); EOS # 0.1 (0.0-0.7); GRAN # 3.56 (1.4-6.5); GRAN % 49.8 % (50.0-68.0); HEMOGLOBIN 11.2 g/dL (14.0-18.0); LYMPH # 1.4 (1.2-3.4); LYMPH % 20.1 % (22.0-35.0); MEAN CELL VOLUME 87.4 fl (80.0-105.0); MEAN CORPUSCULAR HEMOGLOBIN 28.3 pg (25.0-35.0); MEAN CORPUSCULAR HGB CONC 32.4 g/dl (31.0-37.0); MEAN PLATELET VOLUME 11.3 fl (7.0-11.0); MONO % 27.8 % (1.0-6.0); RBC 3.96 10^6/uL (3.5-6.1); RED CELL DISTRIBUTION WIDTH 17.6 % (11.5-14.5); WHITE BLOOD COUNT 7.2 10^3/ul (4.5-11.0)
[2017-04-29 08:02] LABS: ALB/GLOB RATIO 0.9 (1.1-1.8); ALBUMIN 3.7 g/dL (3.0-4.8); BILIRUBIN,DIRECT 0.4 mg/dL (0.0-0.4); CALCIUM 8.9 mg/dL (8.4-10.5); MAGNESIUM 2.1 mg/dL (1.7-2.2)
[2017-04-29] MEDS: Insulin Lispro (humaLOG) LOW Coverage SC SCH ×4 (08:14→22:18)
--- NOTE | 2017-04-29 11:15 | PN ---
DATE: 04/29/2017 LOCATION: Patient was seen in room 578, bed 1. SUBJECTIVE: Overnight nurse's notes were reviewed. Except for patient's episodic confusion and episodic uncooperativeness, there was no other adverse events documented in the last 24 to 48 hours. Patient was found to be alert, awake, oriented x1 to 2. Patient denies any weakness. Denies any syncope. Denies any fever or chills. Denies nausea, vomiting or diarrhea. Patient refused fleet enema the other day. PHYSICAL EXAMINATION: VITAL SIGNS: T-max 97.8, pulse 82, blood pressure 127/72, respirations 17, O2 sat 99%. HEENT: Head examination, normocephalic and atraumatic. HEENT examination shows pinkish pale conjunctivae. Anicteric sclerae. No oropharyngeal lesion. Soft carotid bruit. No jugular venous distention. CHEST: Kyphosis. LUNGS: Shows occasional rhonchi at the upper lung chaney. CARDIOVASCULAR: S1, S2, regular rhythm. Questionable soft systolic murmur, left sternal border, right second intercostal space, left second intercostal space. ABDOMEN: Soft. Positive bowel sounds. No hepatosplenomegaly noted. No guarding. No rigidity. No rebound tenderness. GENITALIA: Male. RECTAL: Examination is deferred. EXTREMITIES: Shows positive left upper extremity AV fistula. Lower extremity shows no pitting edema, no calf tenderness, no Homans' sign. NEUROLOGIC: The patient is alert, awake, oriented x1 to 2. Motor strength is 5/5 in upper and lower extremities. Gait examination not tested. MUSCULOSKELETAL: As per the body mass index. DIAGNOSTICS: As of 04/29, WBC down to 7.2, hemoglobin and hematocrit 11.2 and 34.6. Sodium 136, potassium 4.5, chloride 97, CO2 27, BUN 47, creatinine 7.5, glucose 99, calcium 8.9, phosphorus 4.9, magnesium 2.1. LFTs are normal. Microbiology, blood cultures are negative. Patient is seen by Infectious Disease and Nephrology. Recommendations noted. IMPRESSION AND PLAN: 1. Systemic inflammatory response syndrome. 2. Leukocytosis. 3. Fever. 4. Granulocytosis. 5. Questionable bandemia. 6. Dementia with delirium with possible behavioral disturbances. 7. End-stage renal disease, hemodialysis dependent three times a week via the left upper extremity arteriovenous fistula. 8. Normocytic anemia. 9. Chronic constipation. 10. Noncompliance with medication and diet. 11. History of cerebral infarct. 12. History of hypertension. 13. Multivessel coronary artery disease. 14. History of angioplasty and stent placement. 15. Non-ST elevation myocardial infarction. 16. History of gastrointestinal bleeding. 17. Gait dysfunction. 18. Secondary hyperparathyroidism of renal origin. 19. Angina . Plan at this time, patient is to be continued on IV antibiotics as per Infectious Disease recommendation. The patient will be ordered diagnostic testing as indicated. Patient's case referred to Transitional Care Unit for physical therapy, occupational therapy, ambulation therapy, gait training. We will await further recommendations from Infectious Disease regarding continuation of the intravenous antibiotic duration. Patient will continue on the medications as per the MAR of today, which was reviewed. Dictated and electronically signed, not read. Zeyad Nazario MD
[2017-04-29] MEDS: POLYETHYLENE GLYCOL 3350 17 GM/Dose PACKET PO SCH ×2 (11:32→17:29)
[2017-04-29] MEDS: Multivitamin Vitamin B Complex (Nephro-Vite) Tab PO SCH (11:33)
[2017-04-29] MEDS: Pantoprazole 40 mg EC Tab PO SCH (11:33)
--- NOTE | 2017-04-29 15:29 | CP.PCM.PN ---
Subjective - Date & Time of Evaluation Date of Evaluation: 04/29/17 Time of Evaluation: 13:50 - Subjective Subjective: Comfortable, afebrile, not in distress. Objective - Vital Signs/Intake and Output Vital Signs (last 24 hours): Temp Pulse Resp BP Pulse Ox 98.4 F 62 18 142/90 99 04/29/17 08:35 04/29/17 08:35 04/29/17 08:35 04/29/17 08:35 04/29/17 08:35 Intake and Output: 04/29/17 04/29/17 06:59 18:59 Intake Total 180 Balance 180 - Medications Medications: Current Medications Acetaminophen (Tylenol 325 Mg Supp) 325 mg RC Q6H PRN PRN Reason: FEVER>=99.5F Acetaminophen (Tylenol 325mg Tab) 650 mg PO Q6H PRN PRN Reason: FEVER>=99.5F Acetylcysteine (Acetylcysteine 20%) 4 ml IH [id number] [facility] Last Admin: 04/29/17 02:06 Dose: Not Given Aspirin (Ecotrin) 81 mg PO DAILY [facility] Last Admin: 04/29/17 11:32 Dose: Not Given Atorvastatin Calcium (Lipitor) 40 mg PO DIN [facility] Last Admin: 04/28/17 18:51 Dose: Not Given Benzonatate (Tessalon Perles) 100 mg PO TID [facility] Last Admin: 04/29/17 11:33 Dose: Not Given Donepezil HCl (Aricept) 10 mg PO HS [facility] Last Admin: 04/28/17 22:29 Dose: 10 mg Folic Acid (Folic Acid) 1 mg PO DAILY [facility] Last Admin: 04/29/17 11:32 Dose: Not Given Meropenem 500 mg/ Sodium (Chloride) 100 mls @ 100 mls/hr IVPB 0000 [facility] PRN Reason: Protocol Stop: 05/04/17 00:01 Last Admin: 04/29/17 00:16 Dose: 100 mls/hr Insulin Human Lispro (Humalog Low) 0 units SC ACHS [facility] PRN Reason: Protocol Last Admin: 04/29/17 08:14 Dose: Not Given Isosorbide Mononitrate (Imdur) 120 mg PO DAILY [facility] Last Admin: 04/29/17 11:32 Dose: Not Given Latanoprost (Xalatan Opht) 0 ml OU HS [facility] Last Admin: 04/28/17 22:30 Dose: Not Given Levalbuterol HCl (Xopenex) 0.63 mg IH [id number] [facility] Last Admin: 04/29/17 08:47 Dose: 0.63 mg Losartan Potassium (Cozaar) 100 mg PO DAILY [facility] Last Admin: 04/29/17 11:32 Dose: Not Given Ondansetron HCl (Zofran Inj) 4 mg IVP Q4H PRN PRN Reason: Nausea/Vomiting Pantoprazole Sodium (Protonix Ec Tab) 40 mg PO DAILY [facility] Last Admin: 04/29/17 11:33 Dose: Not Given Polyethylene Glycol (Miralax) 17 gm PO BID [facility] Last Admin: 04/29/17 11:32 Dose: Not Given Sevelamer HCl (Renagel) 800 mg PO TID [facility] Last Admin: 04/29/17 11:33 Dose: Not Given Tamsulosin HCl (Flomax) 0.4 mg PO DAILY [facility] Last Admin: 04/29/17 11:32 Dose: Not Given Vitamin B Complex/Vit C/Folic Acid (Nephro-Jaylin) 1 tab PO DAILY [facility] Last Admin: 04/29/17 11:33 Dose: Not Given - Labs Labs: 04/29/17 07:20 04/29/17 07:20 PT 11.8 SECONDS (9.4-12.5) 04/26/17 22:40 INR 1.03 (0.93-1.08) 04/26/17 22:40 APTT 29.2 Seconds (25.1-36.5) 04/26/17 22:40 - Constitutional Appears: Chronically Ill - Head Exam Head Exam: NORMAL INSPECTION - ENT Exam ENT Exam: Mucous Membranes Moist - Neck Exam Neck Exam: absent: Meningismus - Respiratory Exam Respiratory Exam: Decreased Breath Sounds - Cardiovascular Exam Cardiovascular Exam: +S1, +S2 - GI/Abdominal Exam GI & Abdominal Exam: Soft. absent: Tenderness Assessment and Plan - Assessment and Plan (Free Text) Plan: Assessment SIRS R/O UTI history of sepsis due to HCAP, bilateral lower lobes, on top of bilateral pleural effusion and volume overload dementia history of sepsis from healthcare-associated pneumonia on top of non-ST elevation UT with acute congestive heart failure history of GI bleeding ESRD on HD cornoary artery disease Cerebrovascular accident Gastric cancer Mitral valve prolapse Plan continue Merrem day 3 urine culture results; blood cx are negative will continue to monitor clinically
--- NOTE | 2017-04-29 18:14 | PN ---
DATE: 04/29/2017 SUBJECTIVE: The patient is seen lying in bed. He is awake, he is alert, he is comfortable. PHYSICAL EXAMINATION: GENERAL: Elderly male lying in bed. VITAL SIGNS: Blood pressure 142/90, heart rate 62, respiratory rate 18, temperature 98.4. HEENT: Normocephalic, atraumatic, positive pallor. NECK: Supple, no JVD. LUNGS: Bilateral equal entry, no rales. EXTREMITIES: No lower extremity edema. LABORATORY DATA: WBC 7.2, hemoglobin 11, hematocrit 35, platelets 182. Sodium 136, potassium 4.5, chloride 96, CO2 of 27, BUN 47, creatinine 7.5, glucose 99, calcium 8.9, phosphorus 4.9, magnesium 2.1. MEDICATIONS: List reviewed. ASSESSMENT: 1. Sepsis/altered mental status, improving. 2. Vjq-xbcrdik-guyiveckb diabetes mellitus. 3. Hypertension. 4. End-stage renal disease. 5. Coronary artery disease. PLAN: 1. Stable dialysis. 2. Continue empiric antibiotics as per ID recommendations. 3. Continue fingerstick monitoring. 4. Continue phosphate binders. 5. Discharge planning? Brinda Ibarra MD
[2017-04-30] MEDS: Meropenem 500 MG in Sodium Chloride 0.9% 100 ML IVPB SCH (00:02)
[2017-04-30] MEDS: Acetylcysteine 20% Inhal Soln (4ml) IH SCH ×3 (01:34→13:41)
[2017-04-30] MEDS: Levalbuterol 0.63 MG/3 ML Inhal Soln UD IH SCH ×3 (01:34→13:40)
[2017-04-30 03:22] VITALS: RESP 20
[2017-04-30 08:49] VITALS: BP 175/98; PULSE 64; TEMP 98.7; O2SAT 99
[2017-04-30] MEDS ORDERED: Ergocalciferol 50,000 Intl Units Cap PO SCH (10:00)
[2017-04-30] MEDS: Multivitamin Vitamin B Complex (Nephro-Vite) Tab PO SCH (12:28)
[2017-04-30] MEDS: Pantoprazole 40 mg EC Tab PO SCH (12:28)
[2017-04-30] MEDS: POLYETHYLENE GLYCOL 3350 17 GM/Dose PACKET PO SCH (12:30)
--- NOTE | 2017-04-30 16:03 | PN ---
DATE: 04/30/2017 SUBJECTIVE: The patient is seen lying in bed. He is awake. He is alert. He is comfortable. He is eating lunch. PHYSICAL EXAMINATION: GENERAL: Elderly male, lying in bed. VITAL SIGNS: Blood pressure 175/98, heart rate 64, respiratory rate 20, temperature 98.7. HEENT: Normocephalic, atraumatic, positive pallor. NECK: Supple, no JVD. LUNGS: Bilateral equal air entry, no rales. CARDIAC: S1 and S2, regular rate and rhythm, no murmur, no rub. ABDOMEN: Soft, nondistended, nontender, bowel sounds present. EXTREMITIES: No lower extremity edema. INTAKE AND OUTPUT: Not charted. LABORATORY DATA: No new labs. MEDICATIONS: List reviewed. ASSESSMENT: 1. Altered mental status/healthcare-associated pneumonia, improving. 2. Congestive heart failure, compensated. 3. Exw-oqryxnr-jvsyokziv diabetes mellitus. 4. Hypertension. 5. End-stage renal disease. PLAN: 1. Continue antibiotics as per ID recommendations. 2. Stable dialysis yesterday. 3. Physical therapy. Brinda Ibarra MD
[2017-04-30] MEDS: Insulin Lispro (humaLOG) LOW Coverage SC SCH ×2 (16:47→16:48)
--- NOTE | 2017-05-01 09:33 | PN ---
DATE: 04/30/2017 SUBJECTIVE: The patient is seen in bed, in no acute distress, nontoxic. PHYSICAL EXAMINATION: VITAL SIGNS: Temperature is 98, blood pressure is 170/90, respiratory rate of 20. HEENT: Unremarkable. NECK: Supple. LUNGS: Decreased breath sounds. HEART: Normal S1 and S2. ABDOMEN: Soft, nontender. LABORATORY DATA: Reveals a white count of 7.2, hemoglobin of 11, platelets of 183. Chemistries are noted. Microbiology is reviewed. The blood culture is negative. ASSESSMENT AND PLAN: This is an 86-year-old male who was seen earlier this morning in 578, bed 2, with systemic inflammatory response syndrome and completed the antibiotic therapy, day #4 of meropenem with cultures negative. Magdy Diego MD
--- NOTE | 2017-05-01 09:38 | DS ---
FINAL PROGRESS NOTE AND DISCHARGE SUMMARY Patient is accepted to Transistional Care Unit. Patient is discharged to Transitional Care Unit on 04/30/2017. Patient is seen today, lying in the bed, in room 578, bed 1. HISTORY OF PRESENT ILLNESS: Patient is lying in the bed. Patient is totally awake, alert, is able to say his name, my name. Patient is able to say [facility] as a place. Patient was able to state his date of , but was not able to say today's date, year, month. Patient, otherwise, is episodically confused. PHYSICAL EXAMINATION: VITAL SIGNS: T-max 98.3, 98.7; heart rate 64, 70, 84; blood pressure is 156/76, 169/97, 175/98; respiration 20; O2 sat 99% to 100%. Intake and output not documented. HEENT: Head examination, normocephalic and atraumatic. HEENT examination shows pinkish pale conjunctivae. Anicteric sclerae. No oropharyngeal lesion. No neck rigidity. Soft carotid bruit, no facial asymmetry. CHEST: Kyphosis. LUNGS: Shows no rales, crackles or wheezing. CARDIOVASCULAR: S1, S2, regular rhythm. Positive systolic murmur left sternal border, right second intercostal space, left second intercostal space. ABDOMEN: Soft. Positive bowel sounds. No hepatosplenomegaly noted. GENITALIA: Male. RECTAL: Examination is deferred. EXTREMITIES: Upper extremities show positive left upper extremity AV fistula, positive thrill. Positive pulses. Lower extremity shows no pitting edema, no calf tenderness, no Consuelo's signs. MUSCULOSKELETAL: Shows a body mass index of 26. NEUROLOGIC: Patient is alert, awake, oriented x2 to 3. Cranial nerves II through XII limited. Gait examination is not tested. VASCULAR: Palpable pulses. DIAGNOSTICS: None from today. Fingerstick blood sugar 132, 157, 106, 176, 135, 130. Blood cultures negative growth. Urine cultures, patient is anuric. EKG noted. FINAL IMPRESSION, PLAN, AND DISCHARGE DIAGNOSES: 1. Systemic inflammatory response syndrome with fever, tachycardia, leukocytosis. 2. Dementia with delirium and behavioral disturbances. 3. Hypertension. 4. Leukocytosis with granulocytosis and bandemia. 5. Elevated erythrocyte sedimentation rate. 6. Normocytic anemia. 7. End-stage renal disease, hemodialysis dependent, three times a week via the left upper extremity arteriovenous fistula. 8. Insulin-requiring diabetes mellitus, well controlled with hemoglobin A1c of 6.6. 9. Elevated C-reactive protein of greater than 15. 10. Hyperprocalcitoninemia. 11. Secondary hyperparathyroidism with elevated parathyroid hormone of 198. 12. Gait dysfunction. 13. Deconditioning. 14. Hyperphosphatemia. 15. Cerebral cortical atrophy of the brain. 16. Basal ganglia chronic lacunar infarct. 17. Subcortical white matter periventricular small-vessel ischemic disease of the brain. 18. Intracranial atherosclerosis. 19. Severe constipation. 20. Poor compliance with medication and diet. 21. Sinus tachycardia. 22. Left anterior hemiblock. 23. Right bundle-branch block. 24. Bifascicular block. 25. Encephalopathy. Plan at this time, the patient has been accepted to TCU. Patient's was made aware of the patient acceptance to TCU. Patient's did not signed the consent for the MRI. CURRENT DISCHARGE MEDICATIONS: Patient is to be discharged on: 1. Aricept 10 mg at bedtime. 2. Cozaar 100 mg daily. 3. Ecotrin 81 mg daily. 4. Flomax 0.4 mg daily. 5. Folic acid 1 mg daily. 6. Humalog low-dose sliding scale coverage a.c. and at bedtime. 7. Imdur 120 mg daily. 8. Lipitor 40 mg daily. 9. Meropenem 500 mg IV daily. 10. Patient is on MiraLax 17 g twice a day. 11. Nephro-Jaylin 1 tablet daily. 12. Protonix 40 mg daily. 13. Renagel 800 mg three times a day. 14. Tylenol 650 mg p.o. and suppository or p.o. q. 6 hours p.r.n. for temperature greater than equal to 99.5. 15. Xalatan eye drops both eyes at bedtime. 16. Patient is on Zofran 4 mg IV q. 4 p.r.n. Patient's Tessalon Perles, Xopenex nebulizer and Mucomyst nebulizer discontinued. Patient will be continued on the above therapeutic intervention. Patient will be continued by Infectious Disease and Nephrology. At present, patient has improved since the day of admission. Patient's further management will be dependent upon the patient's clinical condition, hemodynamic status and as per the patient response to therapeutic intervention. Patient will be discharged to Transitional Care Unit for ambulation, gait training, physical therapy, occupational therapy. Time spent in the entire discharge process, more than 45 minutes. Dictated and electronically signed, not read. Zeyad Nazario MD
--- NOTE | 2017-05-03 15:57 | PQF SEPSIS ---
Dr. Diego, Sepsis is documented on ED notes, on H&P, consult of 04/27, and progress notes of 04/28, 04/29. "History of sepsis due to HCAP" is also documented. Do you agree, disagree, undetermined with diagnosis of sepsis on this admission? If you agree with sepsis on this admission, was this present on admission? (This query is sent to you, per Dr. Nazario.) Thank you. Clarification of your documentation is requested to better reflect the severity of illness and intensity of treatment of your patient. Indicators present [] Temp < 96.8 or > 100.4 [] WBC count > 12,000/mm3 or <000/mm3 or 10% immature neutrophils [] Heart Rate > 90 [] Respiratory Rate > 20 [] Fever or hypothermia [] Chills [] Positive blood cultures [] Hypotension [] Metabolic acidosis (Elevated lactate level, anion gap or reduced blood pH) [] Acute confusion /Altered Mental Status [] Shock [] Other: [] Location in the medical record that reflects the above clinical findings: [] Treatment Provided: [] PHYSICIAN'S RESPONSE Based on your medical judgment of the clinical indicators outlined above, are you treating this patient for a known or suspected: [x] Sepsis / Septicemia Please specify organism if known []sepsis secondary to HAP unknown organism [] SIRS (Systemic Inflammatory Response Syndrome) [] Severe Sepsis (Sepsis with Associated Organ Dysfunction) [] Fever of Unknown Origin [] Other, please indicate: [] [] If Unable to Determine, please check the box, sign and date. Present On Admission (POA) Indicator: [] Present at the time of admission [] Not present at the time of admission [] Clinically Undetermined In responding to this query, please exercise your independent professional judgment. The fact that a question is asked does not imply that any particular answer is desired or expected. Thank you for your clarification on this documentation. If you have any questions please call:[ ] * Thank you, [ ] quiller tender BREA
== END 2017-04-30 17:22 | DRG 871 ==
LOC: ED 21:10 → ERH 04-27 00:05 → 3RSO 04-27 03:45 → 5RSO 04-28 17:37
PROVIDERS: ADMIT Internal Medicine; ATTEND Internal Medicine
DX: A41.9 Sepsis, unspecified organism (principal); G93.40 Encephalopathy, unspecified; I13.2 Hypertensive heart and chronic kidney disease with heart failure and with stage 5 chronic kidney disease, or end stage renal disease; J18.9 Pneumonia, unspecified organism; E11.22 Type 2 diabetes mellitus with diabetic chronic kidney disease; K31.84 Gastroparesis; E87.2 Acidosis; E11.43 Type 2 diabetes mellitus with diabetic autonomic (poly)neuropathy; E83.39 Other disorders of phosphorus metabolism; E11.51 Type 2 diabetes mellitus with diabetic peripheral angiopathy without gangrene; I50.9 Heart failure, unspecified; N18.6 End stage renal disease; F03.91 Unspecified dementia, unspecified severity, with behavioral disturbance; F05 Delirium due to known physiological condition; I45.2 Bifascicular block; N25.81 Secondary hyperparathyroidism of renal origin; R65.10 Systemic inflammatory response syndrome (SIRS) of non-infectious origin without acute organ dysfunction; D63.1 Anemia in chronic kidney disease; E87.5 Hyperkalemia; H40.9 Unspecified glaucoma; I25.119 Atherosclerotic heart disease of native coronary artery with unspecified angina pectoris; I25.2 Old myocardial infarction; I34.1 Nonrheumatic mitral (valve) prolapse; I45.10 Unspecified right bundle-branch block; I67.2 Cerebral atherosclerosis; K21.9 Gastro-esophageal reflux disease without esophagitis; K59.09 Other constipation; N28.1 Cyst of kidney, acquired; N40.0 Benign prostatic hyperplasia without lower urinary tract symptoms; Z87.01 Personal history of pneumonia (recurrent); Z79.4 Long term (current) use of insulin; Z79.82 Long term (current) use of aspirin; Z79.899 Other long term (current) drug therapy; Z85.028 Personal history of other malignant neoplasm of stomach; Z86.73 Personal history of transient ischemic attack (TIA), and cerebral infarction without residual deficits; Z87.442 Personal history of urinary calculi; Z87.891 Personal history of nicotine dependence; Z90.49 Acquired absence of other specified parts of digestive tract; Z91.11 Patient's noncompliance with dietary regimen; Z91.14 Patient's other noncompliance with medication regimen; Z91.19 Patient's noncompliance with other medical treatment and regimen; Z95.1 Presence of aortocoronary bypass graft; Z95.5 Presence of coronary angioplasty implant and graft; Z99.2 Dependence on renal dialysis; R70.0 Elevated erythrocyte sedimentation rate; R79.82 Elevated C-reactive protein (CRP); R00.0 Tachycardia, unspecified; Y95 Nosocomial condition

== ENCOUNTER 2017-04-30 17:30 | Inpatient (IN) | payer OTHER, BC ==
[2017-04-30 19:02] VITALS: BMI 21.7
[2017-04-30] MEDS ORDERED: Influenza Vaccine 60 mcg/0.5 mL SYR (4YR UP) IM ONE (19:02)
[2017-04-30] MEDS ORDERED: Pneumococcal 23-Valent Vaccine IM ONE (19:02)
[2017-04-30] MEDS: Insulin Lispro (humaLOG) LOW Coverage SC SCH (22:58)
[2017-04-30] MEDS: Latanoprost 2.5 ml Opht Soln OU SCH (22:58)
[2017-05-01] MEDS: Pantoprazole 40 mg EC Tab PO SCH (05:29)
[2017-05-01] MEDS ORDERED: Meropenem 500 MG in Sodium Chloride 0.9% 100 ML IVPB SCH (06:00)
[2017-05-01] MEDS: Insulin Lispro (humaLOG) LOW Coverage SC SCH ×4 (06:58→22:34)
[2017-05-01] MEDS: Multivitamin Vitamin B Complex (Nephro-Vite) Tab PO SCH (08:11)
[2017-05-01] MEDS: POLYETHYLENE GLYCOL 3350 17 GM/Dose PACKET PO SCH ×2 (10:32→18:04)
--- NOTE | 2017-05-01 17:43 | CON ---
DATE: 05/01/2017 LOCATION: The patient is seen in [facility]. CHIEF COMPLAINT: Weakness times several days. HISTORY OF PRESENT ILLNESS: This is an 86-year-old male, who is in the acute care with a past medical history significant for hypertension; diabetes; dementia; end-stage renal disease, on hemodialysis; history of brz-RL-plkqaqdgj RI; history of cerebrovascular accident; gastric cancer; coronary artery disease; anemia; prolapsed mitral valve. The patient also had a history of cholecystectomy and arteriovenous shunt placement. The patient was admitted with a diagnosis of sepsis in the acute care secondary to healthcare-associated pneumonia with isy-YA-bgvbqvfyk RI with congestive heart failure and day #5 of meropenem. REVIEW OF SYSTEMS: Reveals no fevers and no chills. No nausea. No diarrhea or constipation. The patient overall is much improved. However, still with weakness. PAST MEDICAL HISTORY: Significant for end-stage renal disease, on hemodialysis; hypertension; diabetes; dementia; cerebrovascular accident; gastric cancer; coronary artery disease; anemia and prolapsed mitral valve. PAST SURGICAL HISTORY: Significant for cholecystectomy and AV shunt placement. ALLERGIES: THE PATIENT HAS NO KNOWN ALLERGIES. MEDICATIONS AT HOME: Reviewed include insulin and atorvastatin, aspirin, pantoprazole and tamsulosin. PHYSICAL EXAMINATION: GENERAL: The patient is in bed, appearing chronically ill and weak. VITAL SIGNS: Temperature of 97, blood pressure is 107/60, respiratory rate of 20, heart rate of 84. HEENT: Examination of HEENT is unremarkable. NECK: Supple. LUNGS: Have decreased breath sounds. HEART: Normal S1 and S2. ABDOMEN: Soft, nontender. LABORATORY DATA: Laboratory examination reveals a white count of 7, hemoglobin of 11, platelets of 182, 49% granulocytosis. ASSESSMENT AND PLAN: This is an 86-year-old with history of hypertension; diabetes; dementia; end-stage renal disease, on hemodialysis; vcu-CN-tiegyahco myocardial infarction; cerebrovascular accident; gastric cancer; coronary artery disease; admitted to the acute care with sepsis, healthcare-associated pneumonia with fct-WE-dxpcpjbll myocardial infarction. Today is day #5 of meropenem. Tolerating the antibiotics well. We will complete 4-7 days of antibiotics and we will follow closely with you. Magdy Diego MD
[2017-05-01] MEDS: Latanoprost 2.5 ml Opht Soln OU SCH (21:19)
--- NOTE | 2017-05-02 04:00 | HP ---
LOCATION: The patient is seen in room 313, bed 1. HISTORY OF PRESENT ILLNESS: The patient is seen lying in the bed. Overnight, nursing notes were reviewed. The patient was found to be alert, awake, oriented x1 to 2 and confused. The patient has been refusing the medications according to the nurses. The patient appears to be alert, awake, responsive and cooperative, confused. For further details of the patient's history and physical examination, and past medical history, please review the dictated history and physical examination from 04/27/2017 and discharge summary from 04/30/2017. PHYSICAL EXAMINATION: VITAL SIGNS: T-max 98.0, pulse rate 60-71, blood pressure 123/63, 110/60, respirations 18, O2 sat 96-98%. GENERAL: The patient is seen lying in the bed. HEENT: Head; normocephalic, atraumatic. Eyes; pinkish pale conjunctivae, anicteric sclerae. No oropharyngeal lesion. NECK: No neck rigidity. Soft carotid bruit. CHEST: Kyphosis. LUNGS: No rales, crackles or wheezing. CARDIOVASCULAR: S1, S2, regular rhythm. Positive systolic murmur, left sternal border, right second intercostal space, left second intercostal space. ABDOMEN: Soft. Positive bowel sounds. GENITALIA: Male. RECTAL: Examination is deferred. EXTREMITIES: Shows positive left upper extremity AV fistula. Positive thrill. NEUROLOGIC: The patient is alert, awake, oriented x1. Cranial nerves II-XII limited. Gait examination is not tested. MUSCULOSKELETAL: Shows a body mass index of 26. PSYCHIATRIC: Examination is positive for confusion and dementia. DIAGNOSTICS: None. REPORTS: None. IMPRESSION: 1. Deconditioning. 2. Gait dysfunction. 3. Systemic inflammatory response syndrome with fever, tachycardia, leukocytosis. 4. Dementia with delirium and behavioral disturbances. 5. Hypertension. 6. Leukocytosis with granulocytosis and bandemia. 7. End-stage renal disease, hemodialysis dependent, 3 times a week via the left upper extremity arteriovenous fistula. 8. Insulin-requiring diabetes mellitus, well controlled with hemoglobin A1c of 6.6. 9. Hyperprocalcitoninemia. 10. Prostatic hypertrophy. 11. Multivessel coronary artery disease. 12. History of non-ST elevation myocardial infarction and angioplasty and stent placement. 13. Unstable angina. 14. Dyslipidemia. 15. Constipation. 16 Secondary hyperparathyroidism. 17. Diabetic gastroparesis. PLAN: 1. At this time, the patient is to be continued on TCU with daily physical therapy, occupational therapy, ambulation therapy, gait training. 2. Consultation with Nephrology. 3. Consultation with Infectious Disease regarding the continuation of IV antibiotic duration. CURRENT MEDICATIONS: 1. Aricept 10 mg at bedtime. 2. Cozaar 100 mg daily. 3. Ecotrin 81 mg daily. 4. Flomax 0.4 mg daily. 5. Folic acid 1 mg daily. 6. Humalog low-dose sliding scale coverage before lunch and at bedtime. 7. Imdur 120 mg daily. 8. Lipitor 40 mg daily. 9. Meropenem 250 mg IV q.12 hours. 10. MiraLax 17 g twice a day. 11. Nephro-Jaylin 1 tablet daily. 12. Protonix 40 mg daily. 13. Renagel 800 mg 3 times a day. 14. Tylenol 650 mg q.6 hours p.r.n. 15. Xalatan eyedrops to affected eye, both eyes at bedtime. 16. Zofran 4 mg IV q.4 hours p.r.n. The patient has been ordered out of bed to chair, physical therapy, occupational therapy, ambulation therapy, and gait training. The patient will be continued on the hemodialysis while the patient is in transitional care unit. The patient will be continuing till the approved number of days for TCU. Dictated and electronically signed, not read. Zeyad Nazario MD
[2017-05-02] MEDS: Pantoprazole 40 mg EC Tab PO SCH (05:56)
[2017-05-02] MEDS: Insulin Lispro (humaLOG) LOW Coverage SC SCH ×4 (06:48→22:18)
[2017-05-02] MEDS: Multivitamin Vitamin B Complex (Nephro-Vite) Tab PO SCH (08:47)
[2017-05-02] MEDS: POLYETHYLENE GLYCOL 3350 17 GM/Dose PACKET PO SCH ×3 (10:45→18:49)
[2017-05-02 15:09] LABS: BASO # 0.03 K/mm3 (0.0-2.0); BASO % 0.5 % (0.0-3.0); EOS # 0.1 (0.0-0.7); EOS % 2.2 % (1.5-5.0); GRAN # 3.62 (1.4-6.5); GRAN % 57.4 % (50.0-68.0); HEMOGLOBIN 10.2 g/dL (14.0-18.0); LYMPH # 1.7 (1.2-3.4); MEAN CELL VOLUME 85.9 fl (80.0-105.0); MEAN CORPUSCULAR HEMOGLOBIN 28.2 pg (25.0-35.0); MEAN CORPUSCULAR HGB CONC 32.8 g/dl (31.0-37.0); MEAN PLATELET VOLUME 11.5 fl (7.0-11.0); MONO # 0.8 (0.1-0.6); MONO % 12.9 % (1.0-6.0); RBC 3.62 10^6/uL (3.5-6.1); WHITE BLOOD COUNT 6.3 10^3/ul (4.5-11.0)
[2017-05-02 15:19] LABS: ALBUMIN 3.4 g/dL (3.0-4.8); CALCIUM 8.4 mg/dL (8.4-10.5); MAGNESIUM 2.2 mg/dL (1.7-2.2)
[2017-05-02] MEDS: Latanoprost 2.5 ml Opht Soln OU SCH (22:19)
--- NOTE | 2017-05-03 00:58 | PN ---
DATE: 05/02/2017 SUBJECTIVE: The patient is seen in TCU and the patient was then also seen in the dialysis unit. The patient's overnight nurse's notes were reviewed. PHYSICAL EXAMINATION: GENERAL: The patient was found to be alert, awake, oriented x2 with episodic confusion. VITAL SIGNS: T-max 98; pulse 68, 60, 72; blood pressure 125/67, 123/63; respiration 18; O2 sat 99%. HEENT: Head examination normocephalic, atraumatic. HEENT examination shows pinkish, pale conjunctivae. Anicteric sclerae. No oropharyngeal lesion. No neck rigidity. Soft carotid bruit. CHEST: Kyphosis. LUNGS: Shows no rales, crackles or wheezing. CARDIOVASCULAR: S1, S2, regular rhythm. Positive systolic murmur, left sternal border, left second intercostal space, right second intercostal space. ABDOMEN: Soft. Positive bowel sound. GENITALIA: Male. RECTAL: Deferred. EXTREMITIES: Left upper extremity shows positive AV fistula, positive thrill. Left lower extremity shows no pitting edema, no calf tenderness, no Homans' sign. NEUROLOGIC: The patient is alert, awake, oriented x2 to person and place. Disoriented to year, date, month. The patient was seen with the physical therapist later on in room 313 bed 1. The patient is able to stand up with assisted devices and walker. Motor strength is 5/5 in upper and lower extremity. DIAGNOSTICS: On 05/02/2017, WBC 6.3, hemoglobin and hematocrit 10.2 and 31.1, platelet 181. Sodium 135, potassium 4.4, chloride 98, CO2 of 22, anion gap 19, BUN 64, creatinine 8.6. Fingerstick blood sugar 117, 81, 136, 117, 76, 121. Calcium 8.4, phosphorus 4.8, magnesium 2.2. LFTs are normal. IMPRESSION AND PLAN: 1. Deconditioning. 2. Gait dysfunction. 3. Dementia with delirium. 4. History of noncompliance. 5. Hypertension. 6. Normocytic anemia. 7. End-stage renal disease, hemodialysis dependent. 8. Hyperphosphatemia with secondary hyperparathyroidism. 9. Dementia with delirium and behavioral disturbances. 10. Prostatic hypertrophy. 11. Insulin-requiring diabetes mellitus. 12. History of multivessel coronary artery disease, history of ybt-VG-uojdaneia myocardial infarction, history of unstable angina. 13. History of angioplasty and stent placement. 14. Dyslipidemia. 15. Constipation. 16. Secondary hyperparathyroidism. 17. Glaucoma. 18. Questionable diabetic gastroparesis. PLAN: At this time, the patient is to be continued on Transitional Care Unit. The patient has to continue with the dialysis three times a week. The patient will continue on the following medications. Aricept 10 mg at bedtime, Cozaar 100 mg daily, Ecotrin 81 mg daily, Flomax 0.4 mg daily, folic acid 1 mg daily, Humalog low-dose sliding scale coverage before meals and at bedtime, Imdur 120 mg daily, Lipitor 40 mg daily, meropenem 250 mg IV q. 12, MiraLax 17 g twice a day, Nephro-Jaylin 1 tablet daily, Protonix 40 mg daily, Renagel 800 mg three times a day, Tylenol 350 mg q. 6 p.r.n. suppository and 650 mg p.o. q. 6 p.r.n., Xalatan eye drops both eyes at bedtime, Zofran 4 mg IV q. 4 p.r.n. Consistent carbohydrate diet, out of bed, SAMAN stockings, SCDs. The patient will be continued on the TCU stay with physical therapy, occupational therapy, ambulation therapy, gait training. Dictated and electronically signed, not read. Signing off, Zeyad Nazario MD
--- NOTE | 2017-05-03 01:42 | CON ---
DATE: 05/02/2017 REASON FOR CONSULTATION: Deconditioning, altered mental status, ESRD. HISTORY OF PRESENTING ILLNESS: An 86-year-old male, known to me from outpatient hemodialysis, recent hospital admission. The patient was admitted to the medical side with altered mental status, fevers, chills. He was found to have pneumonia. He is currently receiving physical therapy in the Transitional Care Unit. He is awake. He is alert. PAST MEDICAL AND SURGICAL HISTORY: NIDDM; hypertension; ESRD; CAD; PTCA and stent; GI bleed; gastric carcinoma, remote history; recent pneumonia; anemia of chronic kidney disease; dementia. FAMILY HISTORY: Noncontributory. SOCIAL HISTORY: No smoking, no alcohol use, no IV drug abuse. ALLERGIES: NO KNOWN DRUG ALLERGIES. MEDICATIONS: List reviewed. REVIEW OF SYSTEMS: All systems are reviewed, pertinent positives as mentioned in the history of presenting illness, rest unremarkable. PHYSICAL EXAMINATION: GENERAL: Elderly male, sitting in chair, eating lunch. VITAL SIGNS: Blood pressure 125/67, heart rate 68, respiratory rate 18, temperature 98. HEENT: Normocephalic, atraumatic, positive pallor. NECK: Supple. No JVD. LUNGS: Bilateral equal air entry. No rales. CARDIAC: S1 and S2. Regular rate and rhythm. No murmur, no rub. ABDOMEN: Obese, distended, soft, nontender, bowel sounds present. EXTREMITIES: No lower extremity edema. LABORATORY DATA: WBC 6.3, hemoglobin 10, hematocrit 31, platelets 181. Sodium 135, potassium 4.4, chloride 98, CO2 of 22, BUN 64, creatinine 8.6, glucose 117, calcium 8.4, phosphorus 4.8, magnesium 2.2, albumin 3.4. ASSESSMENT AND PLAN: 1. Altered mental status, resolved. 2. Dementia, stable. 3. NIDDM. 4. Hypertension. 5. Recent pneumonia. 6. ESRD. PLAN: 1. Dialysis today. 2. Complete antibiotics. 3. Physical therapy. 4. Monitor fingersticks. 5. Continue phosphate binders. 6. Renal diet. Brinda Ibarra MD
[2017-05-03] MEDS: Pantoprazole 40 mg EC Tab PO SCH (06:02)
[2017-05-03] MEDS: Insulin Lispro (humaLOG) LOW Coverage SC SCH ×4 (06:34→22:32)
[2017-05-03] MEDS: Multivitamin Vitamin B Complex (Nephro-Vite) Tab PO SCH (09:00)
[2017-05-03] MEDS: POLYETHYLENE GLYCOL 3350 17 GM/Dose PACKET PO SCH ×2 (10:41→18:12)
--- NOTE | 2017-05-03 12:49 | CP.PCM.PN ---
Subjective - Date & Time of Evaluation Date of Evaluation: 05/02/17 Time of Evaluation: 11:30 - Subjective Subjective: Not in distress, afebrile. Objective - Vital Signs/Intake and Output Vital Signs (last 24 hours): Temp Pulse Resp BP Pulse Ox 98 F 72 18 123/63 96 05/01/17 16:19 05/01/17 16:19 05/01/17 16:19 05/01/17 16:19 05/01/17 16:19 Intake and Output: 05/02/17 05/02/17 06:59 18:59 Intake Total 340 Balance 340 - Medications Medications: Current Medications Acetaminophen (Tylenol 325 Mg Supp) 325 mg RC Q6H PRN; Protocol PRN Reason: Fever >=99.5F Acetaminophen (Tylenol 325mg Tab) 650 mg PO Q6H PRN; Protocol PRN Reason: FEVER >=99.5F Aspirin (Ecotrin) 81 mg PO 0800 FRANCISCO JAVIER PRN Reason: Protocol Last Admin: 05/02/17 08:47 Dose: 81 mg Atorvastatin Calcium (Lipitor) 40 mg PO DIN FRANCISCO JAVIER PRN Reason: Protocol Last Admin: 05/01/17 18:04 Dose: Not Given Donepezil HCl (Aricept) 10 mg PO HS FRANCISCO JAVIER PRN Reason: Protocol Last Admin: 05/01/17 21:19 Dose: 10 mg Folic Acid (Folic Acid) 1 mg PO DAILY FRANCISCO JAVIER PRN Reason: Protocol Last Admin: 05/01/17 10:32 Dose: 1 mg Meropenem 250 mg/ Sodium (Chloride) 100 mls @ 100 mls/hr IVPB Q12H FRANCISCO JAVIER PRN Reason: Protocol Stop: 05/06/17 09:01 Last Admin: 05/01/17 21:18 Dose: 100 mls/hr Insulin Human Lispro (Humalog Low) 0 units SC ACHS FRANCISCO JAVIER PRN Reason: Protocol Last Admin: 05/02/17 06:48 Dose: Not Given Isosorbide Mononitrate (Imdur) 120 mg PO 0600 FRANCISCO JAVIER PRN Reason: Protocol Last Admin: 05/02/17 05:56 Dose: 120 mg Latanoprost (Xalatan Opht) 0 ml OU HS FRANCISCO JAVIER PRN Reason: Protocol Last Admin: 05/01/17 21:19 Dose: 2.5 ml Losartan Potassium (Cozaar) 100 mg PO DAILY FRANCISCO JAVIER PRN Reason: Protocol Last Admin: 05/01/17 10:32 Dose: 100 mg Ondansetron HCl (Zofran Inj) 4 mg IVP Q4H PRN; Protocol PRN Reason: Nausea/Vomiting Pantoprazole Sodium (Protonix Ec Tab) 40 mg PO 0600 FRANCISCO JAVIER PRN Reason: Protocol Last Admin: 05/02/17 05:56 Dose: 40 mg Polyethylene Glycol (Miralax) 17 gm PO BID FRANCISCO JAVIER Last Admin: 05/01/17 18:04 Dose: Not Given Sevelamer HCl (Renagel) 800 mg PO TID FRANCISCO JAVIER PRN Reason: Protocol Last Admin: 05/01/17 18:04 Dose: Not Given Tamsulosin HCl (Flomax) 0.4 mg PO 1830 FRANCISCO JAVIER PRN Reason: Protocol Last Admin: 05/01/17 18:04 Dose: Not Given Vitamin B Complex/Vit C/Folic Acid (Nephro-Jaylin) 1 tab PO 0800 FRANCISCO JAVIER PRN Reason: Protocol Last Admin: 05/02/17 08:47 Dose: 1 tab - Constitutional Appears: Non-toxic - Head Exam Head Exam: NORMAL INSPECTION - ENT Exam ENT Exam: Mucous Membranes Moist - Neck Exam Neck Exam: absent: Meningismus - Respiratory Exam Respiratory Exam: Decreased Breath Sounds - Cardiovascular Exam Cardiovascular Exam: +S1, +S2 - GI/Abdominal Exam GI & Abdominal Exam: Soft. absent: Tenderness Assessment and Plan - Assessment and Plan (Free Text) Plan: Assessment SIRS R/O HCAP, R/O UTI history of sepsis due to HCAP, bilateral lower lobes, on top of bilateral pleural effusion and volume overload dementia history of sepsis from healthcare-associated pneumonia on top of non-ST elevation [place] with acute congestive heart failure history of GI bleeding ESRD on HD cornoary artery disease Cerebrovascular accident Gastric cancer Mitral valve prolapse Plan continue Merrem day 7 - will d/c after today
[2017-05-03] MEDS: Latanoprost 2.5 ml Opht Soln OU SCH (21:14)
--- NOTE | 2017-05-03 21:35 | PN ---
DATE: SUBJECTIVE: Patient is currently seen lying supine in bed, receiving a shave from the staff in the TCU. He appears to be in no acute distress. He had an uneventful dialysis yesterday and is scheduled for dialysis tomorrow. MEDICATIONS: Medication list reviewed. Patient is on Aricept, losartan, Ecotrin, Flomax, folic acid, insulin, Imdur, Lipitor, meropenem, MiraLax, Nephro-Jaylin, Protonix, Renagel, Tylenol p.r.n., Xalatan, and Zofran p.r.n. OBJECTIVE: VITAL SIGNS: Blood pressure 125/67, temperature 98 Degrees Fahrenheit, pulse 68 with a respiratory rate of 18. HEENT: Exam shows him to be normocephalic, atraumatic. Conjunctivae are pale. Sclerae nonicteric. NECK: Supple. No neck vein distention. CHEST: Clear to auscultation and percussion. No rales, rhonchi or wheezing. CARDIOVASCULAR: S1, S2 were normal. No murmurs, rubs or gallops. ABDOMEN: Soft. Bowel sounds normal. Nondistended. EXTREMITIES: Show no cyanosis, no clubbing or edema. Positive left upper extremity AV fistula. LABORATORY DATA AND IMAGING STUDIES: White blood cell count, predialysis yesterday 6.3, hemoglobin 10.2 with a platelet count of 181,000. Chemistry showed normal electrolytes. BUN 64 with a creatinine of 8.6. Calcium was 8.4. Phosphorus mildly elevated at 4.8. Magnesium level was 2.2. Microbiology, all blood cultures are negative at 5 days. ASSESSMENT: 1. Status post altered mental status in the setting of systemic inflammatory response syndrome. Patient's white blood cell count on admission was elevated, is currently normal, has completed a course of IV antibiotic therapy. Chest x-ray was negative for pneumonia. Urines were not diagnostic for a urinary tract infection. 2. End-stage renal disease. Patient will continue Tuesday, Tuesday and Tuesday dialysis. 3. History of awi-gtuaiyy-qslnqhnks diabetes mellitus. Patient will continue sliding scale insulin. 4. History of secondary hyperparathyroidism. Patient will continue binder therapy and a renal diet. 5. Hypertension. Blood pressure controlled on present medical therapy. PLAN: 1. Continue Tuesday, Tuesday, Tuesday dialysis. 2. Continue rehabilitation in the TCU for deconditioning. 3. Complete a course of antibiotic therapy under the guidance of Infectious Disease. 4. Continue to monitor labs with dialysis. 5. Continue renal diet. William Erickson MD
[2017-05-04] MEDS: Pantoprazole 40 mg EC Tab PO SCH (05:28)
--- NOTE | 2017-05-04 08:28 | PN ---
DATE: 05/03/2017 LOCATION: Patient seen in room 313, bed 1. SUBJECTIVE: The patient was seen lying in the bed. The patient was alert, awake and responsive. Overnight nurse's notes were reviewed. The patient was found to be alert, awake, oriented x2. The patient did not offer any complaint. The patient was not found to be violent. The patient was found talking to the nurses with some episodic confusion. PHYSICAL EXAMINATION: VITAL SIGNS: T-max 98.1, heart rate 68 to 74, blood pressure in the last 24 hours 118/65 and 125/67, respirations 18 to 20, O2 sat 99% to 100%. HEAD: Normocephalic, atraumatic. HEENT: Examination shows pinkish conjunctivae. Anicteric sclerae. No oropharyngeal lesion. NECK: No neck rigidity. CHEST: Examination is kyphosis. LUNGS: Examination shows no rales, crackles or wheezing. No jugular venous distention. Soft carotid bruit. CARDIOVASCULAR: S1, S2, regular rhythm. Questionable soft systolic murmur left sternal border, left second intercostal space. ABDOMEN: Soft. Positive bowel sound. No hepatosplenomegaly noted. No guarding. No rigidity. No rebound tenderness. GENITALIA: Male. RECTAL: Examination is deferred. EXTREMITY: Shows positive left upper extremity AV fistula, positive thrill. MUSCULOSKELETAL: Examination shows a body mass index of 26. Cranial nerves II-XII limited. Gait examination is not tested. VASCULAR: Examination palpable pulses. NEUROLOGIC: The patient is alert, awake, and oriented x2. Confused and disoriented. DIAGNOSTICS: None from today. Fingerstick blood sugar 142, 187, 165, 86, 121, 76, 136, 81. IMPRESSION AND PLAN 1. Deconditioning. 2. Gait dysfunction. 3. Dementia with delirium and possible behavioral disorder. 4. Poor compliance. 5. Systemic inflammatory response syndrome. 6. Toxic metabolic encephalopathy. 7. End-stage renal disease, hemodialysis dependent, three times a week, via the left upper extremity AV fistula. 8. Insulin-requiring diabetes mellitus. 9. Secondary hyperparathyroidism of renal origin. 10. Hypertension. 11. Dementia. 12. Normocytic anemia. 13. Hyperphosphatemia. 14. Hypertension. 15. Prostatic hypertrophy. 16. History of coronary artery disease and non-ST elevation myocardial infarction and angioplasty and stent placement. 17. History of dyslipidemia. 18. History of constipation. 19. History of gastroesophageal reflux. 20. History of diabetic gastroparesis. PLAN: At this time, the patient was seen by Nephrology. Recommend to continue hemodialysis three times a week. Next, the patient was seen by Infectious Disease. Recommendation is to discontinue meropenem after today's dose. CURRENT MEDICATIONS: The patient's current medications are Aricept 10 mg at bedtime, Cozaar 100 mg daily, Ecotrin 81 mg daily, Flomax 0.4 mg daily, folic acid 1 mg daily, Humalog low-dose sliding scale coverage before meals and at bedtime, Imdur 120 mg daily, Lipitor 40 mg daily, meropenem 250 mg IV q.12, MiraLAX 17 g twice a day, Nephro-Jaylin 1 tablet daily, Protonix 40 mg daily, Renagel 800 mg three times a day, Tylenol mg suppository q.6 and 650 mg p.o. q.6 h. p.r.n., Xalatan eye drops, Zofran 4 mg IV q.4 hours p.r.n. Consistent carbohydrate diet, out of bed, SCDs, SAMAN stockings, occupational therapy, physical therapy. The patient is to continue on transitional care unit stay until approved number of days. The patient will continue with physical therapy, occupational therapy, ambulation therapy, gait training and strengthening. PROGNOSIS: The patient's case was referred to Coating Mixer who met with the patient's . Discharge plan is to return home with home services and visiting nurse, home health aide. Dictated and electronically signed, not read. Zeyad Nazario MD
[2017-05-04] MEDS: Insulin Lispro (humaLOG) LOW Coverage SC SCH ×4 (08:33→23:00)
[2017-05-04] MEDS: Multivitamin Vitamin B Complex (Nephro-Vite) Tab PO SCH (08:34)
[2017-05-04] MEDS: POLYETHYLENE GLYCOL 3350 17 GM/Dose PACKET PO SCH ×2 (10:47→19:37)
--- NOTE | 2017-05-04 14:01 | CP.PCM.PN ---
Subjective - Date & Time of Evaluation Date of Evaluation: 05/04/17 Time of Evaluation: 11:25 - Subjective Subjective: Comfortable, no fevers, not in distress. Objective - Vital Signs/Intake and Output Vital Signs (last 24 hours): Temp Pulse Resp BP Pulse Ox 97.8 F 72 18 141/76 99 05/03/17 17:46 05/03/17 17:46 05/03/17 17:46 05/03/17 17:46 05/03/17 17:46 - Medications Medications: Current Medications Acetaminophen (Tylenol 325 Mg Supp) 325 mg RC Q6H PRN; Protocol PRN Reason: Fever >=99.5F Acetaminophen (Tylenol 325mg Tab) 650 mg PO Q6H PRN; Protocol PRN Reason: FEVER >=99.5F Aspirin (Ecotrin) 81 mg PO 0800 FRANCISCO JAVIER PRN Reason: Protocol Last Admin: 05/04/17 08:34 Dose: 81 mg Atorvastatin Calcium (Lipitor) 40 mg PO DIN FRANCISCO JAVIER PRN Reason: Protocol Last Admin: 05/03/17 18:00 Dose: 40 mg Donepezil HCl (Aricept) 10 mg PO HS FRANCISCO JAVIER PRN Reason: Protocol Last Admin: 05/03/17 21:14 Dose: 10 mg Folic Acid (Folic Acid) 1 mg PO DAILY FRANCISCO JAVIER PRN Reason: Protocol Last Admin: 05/03/17 10:40 Dose: 1 mg Insulin Human Lispro (Humalog Low) 0 units SC ACHS FRANCISCO JAVIER PRN Reason: Protocol Last Admin: 05/04/17 08:33 Dose: Not Given Isosorbide Mononitrate (Imdur) 120 mg PO 0600 FRANCISCO JAVIER PRN Reason: Protocol Last Admin: 05/04/17 05:28 Dose: 120 mg Latanoprost (Xalatan Opht) 0 ml OU HS FRANCISCO JAVIER PRN Reason: Protocol Last Admin: 05/03/17 21:14 Dose: 2.5 ml Losartan Potassium (Cozaar) 100 mg PO DAILY FRANCISCO JAVIER PRN Reason: Protocol Last Admin: 05/03/17 10:40 Dose: 100 mg Ondansetron HCl (Zofran Inj) 4 mg IVP Q4H PRN; Protocol PRN Reason: Nausea/Vomiting Pantoprazole Sodium (Protonix Ec Tab) 40 mg PO 0600 FRANCISCO JAVIER PRN Reason: Protocol Last Admin: 05/04/17 05:28 Dose: 40 mg Polyethylene Glycol (Miralax) 17 gm PO BID [facility] Last Admin: 05/03/17 18:12 Dose: Not Given Sevelamer HCl (Renagel) 800 mg PO TID FRANCISCO JAVIER PRN Reason: Protocol Last Admin: 05/03/17 18:12 Dose: 800 mg Tamsulosin HCl (Flomax) 0.4 mg PO 1830 FRANCISCO JAVIER PRN Reason: Protocol Last Admin: 05/03/17 18:10 Dose: 0.4 mg Vitamin B Complex/Vit C/Folic Acid (Nephro-Jaylin) 1 tab PO 0800 FRANCISCO JAVIER PRN Reason: Protocol Last Admin: 05/04/17 08:34 Dose: 1 tab - Labs Labs: 05/02/17 14:35 05/02/17 14:35 - Constitutional Appears: Non-toxic - Head Exam Head Exam: NORMAL INSPECTION - ENT Exam ENT Exam: Mucous Membranes Moist - Neck Exam Neck Exam: absent: Meningismus - Respiratory Exam Respiratory Exam: Decreased Breath Sounds - Cardiovascular Exam Cardiovascular Exam: +S1, +S2 - GI/Abdominal Exam GI & Abdominal Exam: Soft. absent: Tenderness Assessment and Plan - Assessment and Plan (Free Text) Plan: Assessment S/P SIRS consider due to HCAP, R/O UTI history of sepsis due to HCAP, bilateral lower lobes, on top of bilateral pleural effusion and volume overload dementia history of sepsis from healthcare-associated pneumonia on top of non-ST elevation [place] with acute congestive heart failure history of GI bleeding ESRD on HD cornoary artery disease Cerebrovascular accident Gastric cancer Mitral valve prolapse Plan S/P Merrem 7 days - will continue to monitor off antibiotics since he is at risk for nosocomial infections
[2017-05-04 14:39] LABS: BASO # 0.02 K/mm3 (0.0-2.0); BASO % 0.3 % (0.0-3.0); EOS # 0.1 (0.0-0.7); EOS % 2.2 % (1.5-5.0); GRAN # 3.83 (1.4-6.5); GRAN % 63.8 % (50.0-68.0); HEMOGLOBIN 9.8 g/dL (14.0-18.0); LYMPH # 1.3 (1.2-3.4); LYMPH % 22.1 % (22.0-35.0); MEAN CELL VOLUME 86.7 fl (80.0-105.0); MEAN CORPUSCULAR HEMOGLOBIN 28.2 pg (25.0-35.0); MEAN CORPUSCULAR HGB CONC 32.6 g/dl (31.0-37.0); MEAN PLATELET VOLUME 10.8 fl (7.0-11.0); MONO # 0.7 (0.1-0.6); MONO % 11.6 % (1.0-6.0); RBC 3.47 10^6/uL (3.5-6.1); RED CELL DISTRIBUTION WIDTH 17.2 % (11.5-14.5)
[2017-05-04 15:21] LABS: ALB/GLOB RATIO 0.9 (1.1-1.8); ALBUMIN 3.2 g/dL (3.0-4.8); CALCIUM 8.5 mg/dL (8.4-10.5); MAGNESIUM 2.2 mg/dL (1.7-2.2)
--- NOTE | 2017-05-04 17:50 | PN ---
DATE: 05/04/2017 SUBJECTIVE: The patient is seen lying in bed. He is awake, he is alert, he is comfortable. PHYSICAL EXAMINATION: GENERAL: Elderly male, seen in the dialysis unit. VITAL SIGNS: Blood pressure 119/62, heart rate 96, respiratory rate 20, temperature 97.6. HEENT: Normocephalic, atraumatic. NECK: Supple, no JVD. LUNGS: Bilateral equal air entry, no rales. CARDIAC: S1 and S2, regular rate and rhythm, no murmur, no rub. ABDOMEN: Soft, nondistended, nontender, bowel sounds present. EXTREMITIES: No lower extremity edema. LABORATORY DATA: WBC 6.3, hemoglobin 10.2, hematocrit 31, platelets 181. No chemistry available. MEDICATIONS: List reviewed. ASSESSMENT: 1. End-stage renal disease. 2. Bilateral pneumonia. 3. Dementia. 4. Anemia of chronic kidney disease. 5. Swv-ofeluwq-ylpvxtvqq diabetes mellitus. 6. Hypertension. PLAN: 1. Stable dialysis. 2. Complete antibiotics for pneumonia. 3. Physical therapy. 4. Monitor fingersticks. 5. Continue antihypertensive. Brinda Ibarra MD
[2017-05-04] MEDS: Latanoprost 2.5 ml Opht Soln OU SCH (21:28)
--- NOTE | 2017-05-05 01:32 | PN ---
DATE: 05/04/2017 LOCATION: The patient was seen lying in the bed in room 313, bed 1. SUBJECTIVE: The patient is all shaved up, appears to be much condenser cleaner and happier looking. Overnight nurse's notes were reviewed. The patient was found to be alert, awake, and oriented x1. The patient has been uncooperative and refusing medicines. The patient has a chronic history of noncompliance. PHYSICAL EXAMINATION: VITAL SIGNS: T-max 97.8, 97.6, heart rate 72-96, blood pressure 141/76 and 119/62, respirations 18-20, O2 sat 99%. HEAD: Normocephalic, atraumatic. HEENT: Examination shows pinkish pale conjunctivae. Anicteric sclerae. No oropharyngeal lesion. No facial asymmetry. Tongue is midline. NECK: Soft carotid bruit. No jugular venous distention. CHEST: Kyphosis. LUNGS: Examination shows no rales, crackles or wheezing. CARDIOVASCULAR: S1, S2, regular rhythm. Positive systolic murmur in the left sternal border, right second intercostal space, left second intercostal space. ABDOMEN: Soft. Positive bowel sounds . No hepatosplenomegaly noted. No guarding. No rigidity. No rebound tenderness. GENITALIA: Male. RECTAL: Examination is deferred. EXTREMITY: Shows positive left upper extremity AV fistula, positive thrill. MUSCULOSKELETAL: Examination shows a body mass index of 26. NEUROLOGIC: The patient is alert, awake, oriented x1 to 2. Cranial nerves II-XII limited. Gait examination is not tested. VASCULAR: Palpable pulses of the lower extremity. No calf tenderness, no Homans sign, no clubbing, no cyanosis. DIAGNOSTICS: On 05/04/2017, WBC 6.0, hemoglobin/hematocrit 9.8, 30.1, platelet 168. Sodium 138, potassium 4.0, chloride 99, CO2 26, anion gap 17, BUN 56, creatinine 7.5, GFR 8, glucose 143, 146, 92, calcium 8.5, phosphorus 3.8, magnesium 2.2. LFTs are normal. IMPRESSION: 1. Dementia with disorientation and delirium. 2. Systemic inflammatory response syndrome. 3. Encephalopathy. 4. Normocytic anemia. 5. Insulin-requiring diabetes mellitus with hyperglycemia. 6. End-stage renal disease, hemodialysis dependent. 7. Constipation. 8. Diabetic gastroparesis. 9. History of cerebral infarct. 10. History of coronary artery disease, history of non-ST elevation myocardial infarction. 11. End-stage renal disease with hemodialysis dependent three times a week via the left upper extremity arteriovenous fistula. 12. Anemia of chronic kidney disease. 13. History of hypertension. 14. Prostatic hypertrophy. 15. History of coronary artery disease, coronary angioplasty and non-ST elevation myocardial infarction with unstable angina. 16. History of gastrointestinal bleeding. 17. History of dyslipidemia. 18. History of secondary hypothyroidism. PLAN: At this time, the patient is to continue on the TCU stay with daily physical therapy, ambulation therapy, occupational therapy, gait training. The patient will be discharged upon completion of TCU stay after approved number of days. The patient's has met with the hospice social worker regarding discharge planning. Dictated and electronically signed, not read. Zeyad Nazario MD
[2017-05-05] MEDS: Pantoprazole 40 mg EC Tab PO SCH (05:33)
[2017-05-05] MEDS: Insulin Lispro (humaLOG) LOW Coverage SC SCH ×4 (06:43→22:40)
[2017-05-05] MEDS: Multivitamin Vitamin B Complex (Nephro-Vite) Tab PO SCH (08:34)
[2017-05-05] MEDS: POLYETHYLENE GLYCOL 3350 17 GM/Dose PACKET PO SCH ×2 (10:22→17:39)
--- NOTE | 2017-05-05 11:46 | PN ---
DATE: 05/05/2017 LOCATION: The patient is still in room 313, bed 1. SUBJECTIVE: Overnight nurse's notes were reviewed. The patient slept well without any adverse events documented. The patient is in room 313, bed 1. PHYSICAL EXAMINATION: VITAL SIGNS: The patient's last vital signs are as per the vital signs in the [facility]. HEENT: The patient's head examination is normocephalic, atraumatic. HEENT examination shows pinkish pale conjunctivae. Anicteric sclerae. No oropharyngeal lesion. No facial asymmetry. No neck rigidity. Soft carotid bruit. No jugular venous distention. CHEST: Kyphosis. LUNGS: Shows no rales, crackles or wheezing. CARDIOVASCULAR: S1, S2. Regular rhythm. Questionable soft systolic murmur, left sternal border, left second intercostal space, right second intercostal space. ABDOMEN: Soft. Positive bowel sound. GENITALIA: Male. RECTAL: Deferred. EXTREMITIES: Upper extremity shows positive left upper extremity AV fistula, positive thrill. Lower extremity shows no pitting edema, no calf tenderness, no Homans' sign. NEUROLOGICAL: The patient is alert, awake, oriented x1-2. Motor strength is 5/5, upper and lower extremity. Gait examination is not tested. The patient is able to follow simple commands. VASCULAR: Palpable pulses of the lower extremity. Gait examination is not tested. IMPRESSION AND PLAN: 1. Deconditioning. 2. Gait dysfunction. 3. Systemic inflammatory response syndrome. 4. Fever. 5. Leukocytosis with granulocytosis. 6. Dementia with delirium. 7. Poor compliance and noncompliance. 8. End-stage renal disease, hemodialysis dependent 3 times a week via the left upper extremity arteriovenous fistula. 9. Dementia with delirium and behavioral disturbances. 10. Noncompliance and poor compliance with diet and medications. 11. Gait dysfunction. 12. Hypertension. 13. History of [id number]-[id number] myocardial infarction, history of multivessel coronary artery disease, history of angioplasty and stent placement. 14. Mild ischemic dilated cardiomyopathy. 15. Anemia. 16. Insulin-requiring diabetes mellitus. 17. Hyperlipidemia. 18. Prostatic hypertrophy. 19. Constipation, fecal stasis, fecal retention. 20. Possible diabetic gastroparesis. 21. Deconditioning. PLAN: At this time, as per the medications of the [facility], the patient will be continued on TCU stay until approved number of days. The patient will continue on physical therapy, occupational therapy, ambulation therapy, gait training and strengthening. The patient will be discharged home upon completion of TCU stay. The patient's case referred to social organization professor to discuss discharge planning with the patient's , which has already been done. Dictated and electronically signed, not read. Zeyad Nazario MD
[2017-05-05] MEDS: Latanoprost 2.5 ml Opht Soln OU SCH (22:15)
--- NOTE | 2017-05-06 02:00 | PN ---
DATE: 05/05/2017 SUBJECTIVE: Patient is seen lying in bed. He is awake, he is alert, he is comfortable. He does not appear to be in any kind of distress. PHYSICAL EXAMINATION: VITAL SIGNS: Blood pressure 138/67, heart rate 72, respiratory rate 18, temperature 98.2. HEENT: Normocephalic, atraumatic, positive pallor. NECK: Supple, no JVD. LUNGS: Bilateral equal entry, No rales. EXTREMITIES: No lower extremity edema. LABORATORY DATA: No new labs. MEDICATIONS: Aricept, Cozaar, Ecotrin, Flomax, folic acid, insulin, Imdur, Lipitor, MiraLax, Protonix, sevelamer, Tylenol. ASSESSMENT: 1. Pneumonia. 2. Coronary artery disease. 3. Non-insulin dependent diabetes mellitus. 4. Hypertension. 5. End-stage renal disease. PLAN: 1. Continue antibiotics. 2. Dialysis tomorrow. 3. Continue physical therapy. 4. Monitor fingersticks. 5. Continue current antihypertensives. Brinda Ibarra MD
[2017-05-06] MEDS: Pantoprazole 40 mg EC Tab PO SCH (05:46)
[2017-05-06] MEDS: Insulin Lispro (humaLOG) LOW Coverage SC SCH ×3 (07:04→22:11)
[2017-05-06] MEDS: Multivitamin Vitamin B Complex (Nephro-Vite) Tab PO SCH (08:17)
[2017-05-06] MEDS: POLYETHYLENE GLYCOL 3350 17 GM/Dose PACKET PO SCH ×2 (10:55→21:27)
[2017-05-06 15:44] LABS: BASO # 0.03 K/mm3 (0.0-2.0); BASO % 0.5 % (0.0-3.0); EOS # 0.2 (0.0-0.7); EOS % 2.4 % (1.5-5.0); GRAN # 3.49 (1.4-6.5); GRAN % 56.5 % (50.0-68.0); HEMOGLOBIN 9.6 g/dL (14.0-18.0); LYMPH # 1.8 (1.2-3.4); LYMPH % 29.4 % (22.0-35.0); MEAN CELL VOLUME 86.3 fl (80.0-105.0); MEAN CORPUSCULAR HGB CONC 32.4 g/dl (31.0-37.0); MEAN PLATELET VOLUME 11.1 fl (7.0-11.0); MONO # 0.7 (0.1-0.6); MONO % 11.2 % (1.0-6.0); RBC 3.43 10^6/uL (3.5-6.1); RED CELL DISTRIBUTION WIDTH 17.1 % (11.5-14.5); WHITE BLOOD COUNT 6.2 10^3/ul (4.5-11.0)
[2017-05-06 15:53] LABS: ALBUMIN 3.5 g/dL (3.0-4.8); CALCIUM 8.9 mg/dL (8.4-10.5); MAGNESIUM 2.3 mg/dL (1.7-2.2)
--- NOTE | 2017-05-06 17:05 | PN ---
DATE: 05/06/2017 SUBJECTIVE: The patient is seen sitting in chair. He is awake. He is alert. He is comfortable. He is eating lunch. PHYSICAL EXAMINATION: GENERAL: Elderly male, sitting in chair. VITAL SIGNS: Blood pressure 125/72, heart rate 77, respiratory rate 18, temperature 98.1. HEENT: Normocephalic, atraumatic, positive pallor. NECK: Supple, no JVD. LUNGS: Bilateral equal air entry, no rales. CARDIAC: S1 and S2, regular rate and rhythm, no murmur, no rub. ABDOMEN: Obese, distended, soft, nontender, bowel sounds present. EXTREMITIES: No lower extremity edema. LABORATORY DATA: No new labs. MEDICATIONS: List reviewed including Aricept, Cozaar, Ecotrin, Flomax, folic acid, insulin, Imdur, Lipitor, MiraLax, Protonix, Tylenol, Zofran. ASSESSMENT: 1. Pneumonia, resolved. 2. Congestive heart failure, resolved. 3. Altered mental status, resolved. 4. Thp-smpaiep-orohsylbf diabetes mellitus.. 5. Hypertension. 6. End-stage renal disease. PLAN: 1. Dialysis today. 2. Continue physical therapy. 3. Complete antibiotics. 4. Monitor fingersticks. Brinda Ibarra MD
--- NOTE | 2017-05-06 18:00 | CP.PCM.PN ---
Subjective - Date & Time of Evaluation Date of Evaluation: 05/06/17 Time of Evaluation: 11:25 - Subjective Subjective: Comfortable in bed, not in distress, afebrile. Objective - Vital Signs/Intake and Output Vital Signs (last 24 hours): Temp Pulse Resp BP Pulse Ox 98.2 F 72 18 138/67 98 05/05/17 16:25 05/05/17 16:25 05/05/17 16:25 05/05/17 16:25 05/05/17 16:25 Intake and Output: 05/06/17 05/06/17 06:59 18:59 Intake Total 380 Balance 380 - Medications Medications: Current Medications Acetaminophen (Tylenol 325 Mg Supp) 325 mg RC Q6H PRN; Protocol PRN Reason: Fever >=99.5F Acetaminophen (Tylenol 325mg Tab) 650 mg PO Q6H PRN; Protocol PRN Reason: FEVER >=99.5F Aspirin (Ecotrin) 81 mg PO 0800 FRANCISCO JAVIER PRN Reason: Protocol Last Admin: 05/06/17 08:17 Dose: 81 mg Atorvastatin Calcium (Lipitor) 40 mg PO DIN FRANCISCO JAVIER PRN Reason: Protocol Last Admin: 05/05/17 17:38 Dose: 40 mg Donepezil HCl (Aricept) 10 mg PO HS FRANCISCO JAVIER PRN Reason: Protocol Last Admin: 05/05/17 22:12 Dose: 10 mg Folic Acid (Folic Acid) 1 mg PO DAILY FRANCISCO JAVIER PRN Reason: Protocol Last Admin: 05/05/17 10:21 Dose: 1 mg Insulin Human Lispro (Humalog Low) 0 units SC ACHS FRANCISCO JAVIER PRN Reason: Protocol Last Admin: 05/06/17 07:04 Dose: Not Given Isosorbide Mononitrate (Imdur) 120 mg PO 0600 FRANCISCO JAVIER PRN Reason: Protocol Last Admin: 05/06/17 05:46 Dose: 120 mg Latanoprost (Xalatan Opht) 0 ml OU HS FRANCISCO JAVIER PRN Reason: Protocol Last Admin: 05/05/17 22:15 Dose: Not Given Losartan Potassium (Cozaar) 100 mg PO DAILY FRANCISCO JAVIER PRN Reason: Protocol Last Admin: 05/05/17 10:21 Dose: 100 mg Ondansetron HCl (Zofran Inj) 4 mg IVP Q4H PRN; Protocol PRN Reason: Nausea/Vomiting Pantoprazole Sodium (Protonix Ec Tab) 40 mg PO 0600 FRANCISCO JAVIER PRN Reason: Protocol Last Admin: 05/06/17 05:46 Dose: 40 mg Polyethylene Glycol (Miralax) 17 gm PO BID [facility] Last Admin: 05/05/17 17:39 Dose: Not Given Sevelamer HCl (Renagel) 800 mg PO TID FRANCISCO JAVIER PRN Reason: Protocol Last Admin: 05/05/17 17:39 Dose: 800 mg Tamsulosin HCl (Flomax) 0.4 mg PO 1830 FRANCISCO JAVIER PRN Reason: Protocol Last Admin: 05/05/17 17:39 Dose: 0.4 mg Vitamin B Complex/Vit C/Folic Acid (Nephro-Jaylin) 1 tab PO 0800 FRANCISCO JAVIER PRN Reason: Protocol Last Admin: 05/06/17 08:17 Dose: 1 tab - Labs Labs: 05/04/17 14:15 05/04/17 14:15 - Constitutional Appears: Chronically Ill - Head Exam Head Exam: NORMAL INSPECTION - Respiratory Exam Respiratory Exam: Decreased Breath Sounds - Cardiovascular Exam Cardiovascular Exam: +S1, +S2 - GI/Abdominal Exam GI & Abdominal Exam: Soft. absent: Tenderness Assessment and Plan - Assessment and Plan (Free Text) Plan: Assessment S/P SIRS consider due to HCAP, R/O UTI history of sepsis due to HCAP, bilateral lower lobes, on top of bilateral pleural effusion and volume overload dementia history of sepsis from healthcare-associated pneumonia on top of non-ST elevation [place] with acute congestive heart failure history of GI bleeding ESRD on HD cornoary artery disease Cerebrovascular accident Gastric cancer Mitral valve prolapse Plan S/P Merrem 7 days - will continue to monitor off antibiotics since he is at risk for hospital-acquired infections
[2017-05-06] MEDS: Latanoprost 2.5 ml Opht Soln OU SCH ×2 (21:26→21:30)
--- NOTE | 2017-05-07 03:04 | PN ---
DATE: 05/06/2017 LOCATION: Room 313, bed 1. SUBJECTIVE: The patient is seen lying in the bed. The patient is alert, awake, responsive, oriented to person and place. Disoriented to year, date, month, and time. Overnight nurse's notes were reviewed. OBJECTIVE: VITAL SIGNS: T-max is 98.2, pulse 72, 77, blood pressure 125/72, 138/72, respirations 18, O2 sat 99%. HEENT: Head examination; normocephalic, atraumatic. HEENT examination shows pinkish pale conjunctivae. Anicteric sclerae. No oropharyngeal lesions. Soft carotid bruit. CHEST: Kyphosis. LUNGS: No rales, crackles or wheezing. CARDIOVASCULAR: S1, S2, regular rhythm. Positive systolic murmur in the left sternal border, right second intercostal space. ABDOMEN: Soft. Positive bowel sounds. No hepatosplenomegaly noted. No guarding. No rigidity. No rebound tenderness. GENITALIA: Male. RECTAL: Deferred. EXTREMITY: Shows positive left upper extremity AV fistula, positive thrill. Lower extremity shows no pitting, no calf numbness, no Consuelo's signs. Chronic skin changes of the lower extremity noted. VASCULAR: Palpable lower extremity pulses. DIAGNOSTICS: On 05/06/2017: The patient had blood work done on dialysis. WBC is 6.2, hemoglobin/hematocrit of 9.6 and 29.6, platelets 187. Sodium 134, potassium 4.6, chloride 94, CO2 of 27, anion gap 18, BUN 52, creatinine 7.4, GFR 9, glucose 115, calcium 8.9, phosphorus 3.5, magnesium 2.3. LFTs are normal. IMPRESSION AND PLAN 1. Deconditioning. 2. Gait dysfunction. 3. Dementia with delirium. 4. End-stage renal disease, hemodialysis-dependent 3 times a week via the left upper extremity AV fistula. 5. Encephalopathy. 6. Systemic inflammatory response syndrome. 7. Insulin-requiring diabetes mellitus. 8. Hypertension. 9. Dementia. 10. Secondary hyperparathyroidism. 11. Constipation. 12. Extremely poor compliance. 13. Prostatic hypertrophy. 14. Unstable angina with history of multivessel coronary artery disease, history of non-ST elevation myocardial infarction, history of angioplasty stent placement. 15. Dyslipidemia. 16. Gastroesophageal reflux. 17. Glaucoma and cataract. PLAN: At this time, the patient's case was referred to [employer] [employer]. The patient will be discharged home over the weekend. The patient's case was referred to [facility] aide. The patient will be continued on the following medications while the patient is in the TCU, which are as follows; Aricept 10 mg at bedtime, Cozaar 100 mg daily, Ecotrin 81 mg daily, Flomax 0.4 mg daily, folic acid 1 mg daily, Humalog low-dose sliding scale coverage, Imdur 120 mg daily, Lipitor 40 mg daily, MiraLax 17 g twice a day, Protonix 40 mg daily, Renagel 800 mg three times a day, Tylenol 350 mg suppository q.6 p.r.n. and 650 mg p.o. q.6 p.r.n., Xalatan eye drops, Zofran 4 mg IV q. 4 hours. The patient will continue to be on TCU till approved number of days. The patient will continue on physical therapy, occupational therapy, ambulation therapy, gait training, and strengthening exercise. Dictated and electronically signed, not read. Zeyad Nazario MD
[2017-05-07] MEDS: Pantoprazole 40 mg EC Tab PO SCH (05:48)
[2017-05-07] MEDS: Insulin Lispro (humaLOG) LOW Coverage SC SCH ×4 (06:30→21:56)
[2017-05-07] MEDS: Multivitamin Vitamin B Complex (Nephro-Vite) Tab PO SCH (08:24)
--- NOTE | 2017-05-07 09:27 | PN ---
DATE: SUBJECTIVE: Patient is currently seen in the TCU, lying comfortable in bed. He states that he will likely be discharged home tomorrow, which is day #8 in the TCU. Patient had completed a course of antibiotics for possible sepsis. Patient had an uneventful dialysis yesterday. His next dialysis will be on 05/09/2017, in the outpatient unit. MEDICATIONS: Medication list reviewed. The patient is currently on Aricept, losartan, Ecotrin, Flomax, folic acid, insulin, Lipitor, MiraLax, Nephro-Jaylin, Protonix, Renagel, Tylenol p.r.n., Xalatan, and p.r.n. Zofran. OBJECTIVE: VITAL SIGNS: Blood pressure 125/72, temperature 98.1, respiratory rate 18 with a pulse of 77. HEENT: Shows him to be normocephalic, atraumatic. Conjunctivae are pale. Sclerae nonicteric. NECK: Supple. No neck vein distention. CHEST: Clear to auscultation and percussion. No rales, rhonchi or wheezing. CARDIOVASCULAR: Shows a regular rate and rhythm with no murmurs, rubs or gallops noted. ABDOMEN: Soft. Bowel sounds normal. Nondistended. No rebound or guarding. EXTREMITIES: Show no cyanosis, clubbing or edema. He has a working left upper extremity AV fistula. Positive thrill and positive bruit. LABORATORY DATA AND IMAGING: Labs done yesterday predialysis showed white blood cell count 6.2 with a hemoglobin of 9.6, platelet count is 187,000. Chemistries from yesterday showed a BUN of 52 with a creatinine of 7.4. Electrolytes were normal. Glucose was 115. Calcium 8.9, phosphorus 3.5, magnesium 2.3 with an albumin of 3.5. ASSESSMENT: 1. Status post altered mental status in the setting of a systemic inflammatory response syndrome. Patient's white blood cell count is now normal. Patient had completed a course of antibiotics. Patient's initial chest x-ray was negative for pneumonia and urine cultures were not diagnostic for a urinary tract infection. 2. End-stage renal disease. Patient had uneventful dialysis in the TCU. Tuesday, Tuesday, Tuesday. His next dialysis will be in the outpatient unit next Tuesday, that is on 05/09/2017. 3. History of non-insulin dependent diabetes mellitus. Patient presently is on sliding scale insulin. 4. History of secondary hyperparathyroidism. Patient is on binder therapy and on a renal diet. His phosphorus and calcium levels are acceptable. 5. History of hypertension. Blood pressure controlled on present medication. PLAN: 1. Patient will likely complete his course in the TCU tomorrow. 2. Patient's next dialysis will be in the outpatient unit. 3. Continue rehabilitation in the TCU over the next 1 to 2 days. 4. We will follow up patient in the outpatient unit. William Erickson MD
[2017-05-07] MEDS: POLYETHYLENE GLYCOL 3350 17 GM/Dose PACKET PO SCH ×2 (10:24→17:35)
--- NOTE | 2017-05-07 11:58 | PN ---
DATE: 05/07/2017 SUBJECTIVE: The patient is seen in room 313, bed 1. The patient is lying in the bed. The patient is having breakfast. The patient is awake, alert, responsive, oriented to person and place. Overnight nurse's notes were reviewed. The patient's family seen by the social sciences chair. The patient is to return home on Tuesday, which is tomorrow. The patient was found by the nursing staff to be alert, awake, oriented x1 with confusion. No distress or adverse events documented. PHYSICAL EXAMINATION: VITAL SIGNS: T-max 98.1, heart rate 77, blood pressure 125/72, respirations 18, O2 sat 99%. Intake/output not documented. HEENT: Head examination normocephalic, atraumatic. HEENT examination shows pinkish pale conjunctivae. Anicteric sclerae. Soft carotid bruit. CHEST: Kyphosis. LUNGS: Shows no rales, crackles or wheezing. CARDIOVASCULAR: S1 and S2. Regular rhythm. Positive systolic murmur, left sternal border, right second intercostal space, left second intercostal space. ABDOMEN: Soft. Positive bowel sounds. No guarding. No rigidity. No rebound tenderness. No costovertebral angle tenderness. No hepatosplenomegaly noted. GENITALIA: Male. RECTAL: Deferred. EXTREMITIES: Upper extremity shows positive left upper extremity AV fistula, positive thrill. Lower extremity shows no pitting edema, no calf tenderness, no Consuelo's signs. NEUROLOGIC: The patient is alert, awake, oriented x1. Cranial nerves II through XII limited. Gait examination is not tested. VASCULAR: Palpable pulses. MUSCULOSKELETAL: Shows a body mass index of 26. DIAGNOSTICS: On 05/06/2017 was reviewed. No diagnostics from 05/07/2017. Fingerstick blood sugar 81, 142, 89, 115, 203. IMPRESSION AND PLAN: 1. Deconditioning. 2. Gait dysfunction. 3. Dementia with behavioral disorders and confusion. 4. Delirium. 5. Systemic inflammatory response syndrome. 6. Hypertension. 7. Normocytic anemia. 8. Insulin-requiring diabetes mellitus and well-controlled insulin-requiring diabetes mellitus. 9. End-stage renal disease, hemodialysis dependent. 10. Deconditioning. 11. Gait dysfunction. 12. Constipation. 13. Dementia. 14. History of cerebral infarct. 15. Prostatic hypertrophy. 16. History of coronary artery disease, history of [id number] myocardial infarction, history of angioplasty and stent placement. 17. Unstable angina. 18. Dyslipidemia. 19. Gastroesophageal reflux. 20. Glaucoma. 21. Possible diabetic gastroparesis. PLAN: At this time, the patient is to be continued on Transitional Care Unit stay until approved number of days. The patient will continue on physical therapy, occupational therapy, ambulation therapy, gait training and strengthening. The patient will continue on the medications as per the MAR including; 1. Aricept 10 mg at bedtime. 2. Cozaar 100 mg daily. 3. Ecotrin 81 mg daily. 4. Flomax 0.4 mg daily. 5. Folic acid 1 mg daily. 6. Humalog low-dose sliding scale coverage before meals and at bedtime. 7. Imdur 120 mg daily. 8. Lipitor 40 mg daily. 9. MiraLax 17 g twice a day. 10. Nephro-Jaylin 1 tablet daily. 11. Protonix 40 mg daily. 12. Renagel 800 mg three times a day. 13. Tylenol 650 q. 6 p.r.n. p.o. and suppository. 14. Xalatan eye drops to both eyes at bedtime. 15. Zofran 4 mg IV q. 4 hours p.r.n. Dictated and electronically signed, not read. Zeyad Nazario MD
[2017-05-07 17:21] VITALS: BP 117/64; PULSE 79; RESP 20; TEMP 97.1; O2SAT 98
[2017-05-07] MEDS: Latanoprost 2.5 ml Opht Soln OU SCH (21:57)
--- NOTE | 2017-05-08 00:02 | PN ---
DATE: 05/07/2017 SUBJECTIVE: The patient is seen in bed, in no acute distress, nontoxic. PHYSICAL EXAMINATION: VITAL SIGNS: Temperature is 97, blood pressure is 117/60, respiratory rate of 20. HEENT: Unremarkable. NECK: Supple. LUNGS: Decreased breath sounds. HEART: Normal S1 and S2. ABDOMEN: Soft, nontender. LABORATORY DATA: Reveals a white count of 6.2, hemoglobin of 9, platelets of 187. BUN of 52, creatinine of 7.4. MEDICATIONS: Review of medications reveals the patient to be off of antibiotics. ASSESSMENT AND PLAN: This is an 86-year-old male, who is seen earlier this morning in room 313, status post systemic inflammatory response syndrome due to healthcare-acquired pneumonia, rule out urine as the source, history of sepsis due to healthcare-acquired pneumonia of bilateral lower lobes on top of bilateral pleural effusions, volume overload, dementia, history of sepsis for healthcare-associated pneumonia, end-stage renal disease on hemodialysis, coronary artery disease, cerebrovascular accident, gastric cancer, status post meropenem - 7 days of treatment. Currently off of antibiotics. The patient is at risk for developing nosocomial infections. Magdy Diego MD
[2017-05-08] MEDS: Pantoprazole 40 mg EC Tab PO SCH (05:26)
[2017-05-08] MEDS: Insulin Lispro (humaLOG) LOW Coverage SC SCH ×2 (06:36→12:04)
[2017-05-08] MEDS: Multivitamin Vitamin B Complex (Nephro-Vite) Tab PO SCH (08:15)
[2017-05-08] MEDS: POLYETHYLENE GLYCOL 3350 17 GM/Dose PACKET PO SCH (10:33)
--- NOTE | 2017-05-08 10:34 | PN ---
DATE: SUBJECTIVE: Patient is currently seen lying supine in bed in the TCU. He anticipates being discharged to home later today. Patient has completed a course of antibiotics for his leukocytosis and possible sepsis. Patient's next scheduled dialysis will be in the outpatient unit tomorrow. MEDICATIONS: Medication list reviewed. Patient is on Aricept, losartan, Ecotrin, Flomax, folic acid, insulin, Imdur, Lipitor, MiraLax, Nephro-Jaylin, Protonix, Renagel, p.r.n. Tylenol, Xalatan ophthalmic ointment and Zofran p.r.n. OBJECTIVE: VITAL SIGNS: Blood pressure 117/64, temperature 97.1, respiratory rate 20 with a pulse of 79. HEENT: Shows him to be normocephalic, atraumatic. Conjunctivae remain pale. Sclerae nonicteric. NECK: Supple. No neck vein distention. CHEST: Clear to auscultation and percussion. No rales, rhonchi or wheezing. CARDIOVASCULAR: Regular rate and rhythm without murmurs, rubs or gallops. ABDOMEN: Soft. Bowel sounds normal. Nondistended. No rebound or guarding. EXTREMITIES: Show no lower extremity cyanosis, clubbing or edema. He has left upper extremity AV fistula. Positive thrill. Positive bruit. LABORATORY DATA AND IMAGING: No labs were done yesterday. Last labs were done predialysis on 05/06/2017. Last CBC, white blood cell count 6.2, hemoglobin 9.6 with platelet count of 187,000. Chemistries predialysis, elevated BUN of 52, creatinine 7.4 consistent with end-stage renal disease. Calcium and phosphorus levels were acceptable. ASSESSMENT: 1. Status post altered mental status with possible systemic inflammatory response syndrome. Patient was initially admitted with leukocytosis. Patient has completed a course of antibiotic therapy. Initial chest x-ray was negative for pneumonia and urines were not diagnostic for urinary tract infection. 2. History of end-stage renal disease. Patient will continue Tuesday, Tuesday, Tuesday dialysis. Next dialysis will be in the outpatient unit. 3. History of Non-insulin dependent diabetes mellitus. Patient remains on sliding scale insulin with excellent glucose control. 4. History of secondary hyperparathyroidism. Patient will continue binder therapy and a renal diet. Phosphorus and calcium levels were normal predialysis, on 05/06/2017. 5. History of hypertension. Blood pressure is controlled on present medication. PLAN: 1. Patient will likely be discharged home later today. 2. Patient will be followed by us in the outpatient dialysis unit on a weekly basis. 3. Continue present medications upon discharge. William Erickson MD
--- NOTE | 2017-05-08 18:41 | PN ---
DATE: 05/08/2017 SUBJECTIVE: The patient is in bed, in no acute distress. PHYSICAL EXAMINATION: VITAL SIGNS: Temperature is 97, blood pressure is 117/60, respiratory rate of 18. HEENT: Unremarkable. NECK: Supple. LUNGS: Decreased breath sounds. HEART: Normal S1, S2. ABDOMEN: Soft, nontender. LABORATORY EXAMINATION: Reviewed. ASSESSMENT/PLAN: An 86-year-old male who was seen earlier today in room 313, status post systemic inflammatory response syndrome secondary to healthcare-associated pneumonia, urine as the source of the sepsis with healthcare-associated pneumonia, bilateral lower lobes with bilateral pleural effusions volume overload, dementia, and now the patient is status post antibiotic treatment for 7 days, currently off antibiotics. Review of orders confirms that case and the patient is at risk of developing nosocomial infections. Magdy Diego MD
--- NOTE | 2017-05-09 02:28 | DS ---
FINAL PROGRESS NOTE AND DISCHARGE SUMMARY HISTORY OF PRESENT ILLNESS: The patient was seen in room 313, bed 1. The patient is to be discharged today. Overnight nurse's notes were reviewed. The patient was found to be alert, awake, oriented x1, confused at times. The patient was discharged home as per the Physical Therapy and Link Trainer clearance. PHYSICAL EXAMINATION: VITAL SIGNS: T-max is 97.1, pulse 79, blood pressure 117/64, respiration 20, O2 sat 98%. HEENT: Head examination normocephalic, atraumatic. HEENT examination shows pinkish pale conjunctivae. Anicteric sclerae. No oropharyngeal lesion. No neck rigidity. Soft carotid bruit. CHEST: Kyphosis. LUNGS: Shows no rales, crackles or wheezing. CARDIOVASCULAR: S1 and S2. Regular rhythm. Positive systolic murmur, left sternal border, right second intercostal space, left second intercostal space. ABDOMEN: Soft. Positive bowel sounds. No hepatosplenomegaly noted. No guarding. No rigidity. No rebound tenderness. GENITALIA: Male. RECTAL: Deferred. EXTREMITIES: Positive left upper extremity AV fistula, positive thrill. Lower extremity examination shows no pitting edema, no calf tenderness, no Homans' sign. VASCULAR: Palpable pulses. NEUROLOGIC: The patient is alert, awake, oriented x1, confused, disoriented to place, year, date, month. MUSCULOSKELETAL: Shows a body mass index of 26. LABORATORY DATA: Fingerstick blood sugar 140, 108, 127, 165, 181 FINAL IMPRESSION, PLAN AND DISCHARGE DIAGNOSES: 1. Deconditioning. 2. Gait dysfunction. 3. Systemic inflammatory response syndrome with high-grade fever. 4. Dementia with behavioral disorders and confusion and delirium. 5. End-stage renal disease, hemodialysis dependent three times a week via the left upper extremity arteriovenous fistula. 6. History of cerebral infarct. 7. History of multivessel coronary artery disease. 8. History of [id number] myocardial infarction. 9. History of angioplasty and stent placement. 10. Encephalopathy. 11. Secondary hyperparathyroidism of renal origin. 12. Hypertension. 13. Dementia. 14. Prostatic hypertrophy. 15. Unstable angina. 16. Hyperlipidemia. 17. Constipation. 18. Secondary hyperparathyroidism. 19. Glaucoma. 20. Possible diabetic gastroparesis. 21. Severe dietary and medication noncompliance. PLAN: At this time, the patient is to be discharged home with referral to visiting nurse, home health aide, home PT. DISCHARGE MEDICATIONS: As follows; 1. The patient is to resume aspirin 81 mg p.o. daily. 2. Lipitor 40 mg daily. 3. Tessalon Perles 100 to 200 mg three times a day. 4. Vitamin D 50,000 units weekly. 5. Aricept 10 mg at bedtime. 6. Folic acid 1 mg daily. 7. Levemir 5 units daily. 8. Imdur 120 mg daily. 9. Cozaar 100 mg daily. 10. Bystolic 5 mg daily. 11. Protonix 40 mg daily. 12. MiraLax 17 g twice a day. 13. Risperdal 0.25 b.i.d., which the patient has not taken since 11/2016. Which will be discontinued. 14. Renagel 800 mg three times a day. 15. Flomax 0.4 mg daily. 16. Travatan eye drops. 17. Suzanna-Jaylin 1 tablet daily. The patient is discharged home. Upon completion of TCU, the patient is to resume all home meds plus insulin and nebulizer treatment as per the ambulatory orders. Discharge followup with Dr. Nazario within 1 week. Discharge followup with dialysis three times a week. Copy of renal dialysis, heart-healthy, moderate carbohydrate consistency diet copy to the patient upon discharge. Time spent in the entire discharge process more than 45 minutes. Dictated and electronically signed, not read. Zeyad Nazario MD
== END 2017-05-08 15:00 | disposition home health service (06) | DRG 91 ==
LOC: TRCU 17:30
PROVIDERS: ADMIT Internal Medicine; ATTEND Internal Medicine
PROC: F07Z9FZ Gait Training/Functional Ambulation Treatment using Assistive, Adaptive, Supportive or Protective Equipment (ICD-10-PCS; principal; 2017-05-01)
PROC: F08Z4FZ Home Management Treatment using Assistive, Adaptive, Supportive or Protective Equipment (ICD-10-PCS; 2017-05-02)
PROC: 5A1D70Z Performance of Urinary Filtration, Intermittent, Less than 6 Hours Per Day (ICD-10-PCS; 2017-05-02)
PROC: 5A1D70Z Performance of Urinary Filtration, Intermittent, Less than 6 Hours Per Day (ICD-10-PCS; 2017-05-04)
PROC: 5A1D70Z Performance of Urinary Filtration, Intermittent, Less than 6 Hours Per Day (ICD-10-PCS; 2017-05-06)
DX: R26.89 Other abnormalities of gait and mobility (principal); N18.6 End stage renal disease; I13.2 Hypertensive heart and chronic kidney disease with heart failure and with stage 5 chronic kidney disease, or end stage renal disease; G92 Toxic encephalopathy; J18.9 Pneumonia, unspecified organism; K31.84 Gastroparesis; E11.22 Type 2 diabetes mellitus with diabetic chronic kidney disease; E11.43 Type 2 diabetes mellitus with diabetic autonomic (poly)neuropathy; E11.65 Type 2 diabetes mellitus with hyperglycemia; F03.91 Unspecified dementia, unspecified severity, with behavioral disturbance; I50.9 Heart failure, unspecified; N25.81 Secondary hyperparathyroidism of renal origin; F05 Delirium due to known physiological condition; Z99.2 Dependence on renal dialysis; N40.0 Benign prostatic hyperplasia without lower urinary tract symptoms; K59.00 Constipation, unspecified; I25.10 Atherosclerotic heart disease of native coronary artery without angina pectoris; E78.5 Hyperlipidemia, unspecified; K21.9 Gastro-esophageal reflux disease without esophagitis; D63.1 Anemia in chronic kidney disease; H40.9 Unspecified glaucoma; I34.1 Nonrheumatic mitral (valve) prolapse; E11.36 Type 2 diabetes mellitus with diabetic cataract; Z79.4 Long term (current) use of insulin; Z91.11 Patient's noncompliance with dietary regimen; Z91.14 Patient's other noncompliance with medication regimen; Z86.73 Personal history of transient ischemic attack (TIA), and cerebral infarction without residual deficits; I25.2 Old myocardial infarction; Z95.5 Presence of coronary angioplasty implant and graft; Z85.028 Personal history of other malignant neoplasm of stomach

== ENCOUNTER 2017-09-22 14:17 | Emergency (ER) | payer MEDICARE, BC ==
[2017-09-22 14:45] VITALS: BMI 23.6
--- NOTE | 2017-09-22 14:46 | ED PDOC ---
Arrival/HPI - General Time Seen by Provider: 09/22/17 14:18 Historian: Patient, Spouse (Primary historian) - History of Present Illness Narrative History of Present Illness (Text): 09/22/17 14:41 86 year old male, whose past medical history includes CHF, hypertension, NV, diabetes, hypercholesterolemia, dementia, and arthritis, presents to the Emergency department complaining of "not feeling well." As per , who takes care of the patient, this morning he felt warm to her, was panting was nauseous , and tried unsuccessfully to vomit. Patient's blood sugar was measured to be 80. Patient says he just felt nauseous. He does not have any symptoms now. Patients denies any chest pain,vomiting, diarrhea, urinary symptoms, back pain, neck pain, headache, dizziness, or any other complaints. PMD: Dr. Nazario Urologist: Dr. Ibarra Time/Duration: 4-6 hours Symptom Onset: Gradual Symptom Course: Improving Activities at Onset: Rest Context: Home Past Medical History - Provider Review Nursing Documentation Reviewed: Yes - Infectious Disease Hx of Infectious Diseases: None - Tetanus Immunization Tetanus Immunization: Unknown - Cardiac Hx Cardiac Disorders: Yes (CAD, S/P Stents, NSTEMI) Hx Hypertension: Yes - Pulmonary Hx Respiratory Disorders: Yes (H/O OF SMOKING CIGARETTES.QUIT) - Neurological HX Cerebrovascular Accident: Yes - HEENT Hx HEENT Disorder: Yes (WEARS RX GLASSES) Hx Cataracts: Yes (b/l) Hx Glaucoma: Yes Other/Comment: hx of epistaxix - Renal Hx Renal Failure: Yes (ESRD (Hemodialysis 3x/wk)) - Endocrine/Metabolic Hx Diabetes Mellitus Type 2: Yes (IDDM) - Hematological/Oncological Hx Blood Disorders: Yes (LOWER GI BLEED) - Integumentary Hx Dermatological Disorder: No - Musculoskeletal/Rheumatological Hx Falls: Yes - Gastrointestinal Hx Gastrointestinal Disorders: Yes (gastric ca,colon polyps,constipation, gastroparesis,gi bleed) - Genitourinary/Gynecological Hx Genitourinary Disorders: Yes (esrd on hd) Hx Reproductive Disorders: Yes (BPH) - Psychiatric Hx Psychophysiologic Disorder: No Hx Substance Use: No Other/Comment: dimentia - Surgical History Hx Cholecystectomy: Yes Hx Coronary Stent: Yes (x1) Other/Comment: AV shunt placement.left forearm - Anesthesia Hx Anesthesia: Yes Hx Anesthesia Reactions: No Hx Malignant Hyperthermia: No - Suicidal Assessment Feels Threatened In Home Enviroment: No Family/Social History - Physician Review Nursing Documentation Reviewed: Yes Family/Social History: Unknown Family HX Smoking Status: Unknown If Ever Smoked Hx Alcohol Use: No Hx Substance Use: No Hx Substance Use Treatment: No Allergies/Home Meds Allergies/Adverse Reactions: Allergies No Known Allergies Allergy (Verified 04/30/17 18:39) Review of Systems - Physician Review All systems were reviewed & negative as marked: Yes - Review of Systems Constitutional: Fevers (subjective) Respiratory: SOB Cardiovascular: absent: Chest Pain Gastrointestinal: Nausea. absent: Diarrhea, Vomiting Genitourinary Male: absent: Dysuria Musculoskeletal: absent: Back Pain, Neck Pain Neurological: absent: Headache, Dizziness Physical Exam Vital Signs Reviewed: Yes Vital Signs Temp Pulse Resp BP Pulse Ox 09/22/17 16:18 81 18 148/86 99 09/22/17 14:45 98.0 F 87 16 151/91 H 100 09/22/17 14:26 98.5 F 85 18 151/91 H 99 Temperature: Afebrile Blood Pressure: Hypertensive Pulse: Regular Respiratory Rate: Normal Appearance: Positive for: Well-Appearing, Non-Toxic, Comfortable Pain Distress: None Mental Status: Positive for: Alert and Oriented X 3 - Systems Exam Head: Present: Atraumatic, Normocephalic Pupils: Present: PERRL Extroacular Muscles: Present: EOMI Conjunctiva: Present: Normal Mouth: Present: Moist Mucous Membranes Neck: Present: Normal Range of Motion Respiratory/Chest: Present: Clear to Auscultation, Good Air Exchange. No: Respiratory Distress, Accessory Muscle Use Cardiovascular: Present: Regular Rate and Rhythm, Normal S1, S2. No: Murmurs Abdomen: No: Tenderness, Distention, Peritoneal Signs Back: Present: Normal Inspection Upper Extremity: Present: Other (left upper extremity AV fistula, good thrill and bruit) Lower Extremity: Present: Normal Inspection. No: Edema Neurological: Present: GCS=15, CN II-XII Intact, Speech Normal Skin: Present: Warm, Dry, Normal Color. No: Rashes Psychiatric: Present: Alert, Oriented x 3, Normal Insight, Normal Concentration Medical Decision Making ED Course and Treatment: 09/22/17 14:49 Impression: 86 year old male presents to the Emergency department complaining of subjective fever, and nausea. Plan: -- Chest xray -- EKG -- Blood culture -- VBG -- Labs -- Zofran -- Reassess and disposition Prior Visits: Notes and results from previous visits were reviewed. Patient was last seen in the emergency department on 04/26/17, was diagnosed with sepsis, and was admitted to the hospital. Progress Notes: CXR with NAD. 09/22/17 16:44 Patient's labs reviewed. Potassium elevated in an ESRD patient. Will treat with Albuterol. Patient will get dialysis tomorrow. EKG with no changed for hyperkalemia. Patient is comfortable and continues to have no complaints. and I discussed plan for follow up. She states that she feels comfortable taking him home and then dialysis tomorrow. She states that she will make sure he has follow up with Dr. Nazario. - Lab Interpretations Lab Results: 09/22/17 15:15 09/22/17 15:15 Lab Results 09/22/17 15:15: Sodium 143, Chloride 98, Potassium 5.7 H* D, Carbon Dioxide 29, Anion Gap 22 H, BUN 32 H, Creatinine 6.3 H, Est GFR ( Amer) 10, Est GFR ( Non-Af Amer) 8, Random Glucose 90, Calcium 8.9, Phosphorus 5.0 H, Magnesium 2.1 09/22/17 15:15: pO2 38, VBG pH 7.33, VBG pCO2 58.0, VBG HCO3 30.6 H, VBG Total CO2 32.4 H, VBG O2 Sat (Calc) 75.7 H, VBG Base Excess 3.2 H, VBG Potassium 5.7 H , Sodium 137.0, Chloride 100.0, Glucose 90, Lactate 1.5, FiO2 21.0, Venous Blood Potassium 5.7 H 09/22/17 15:15: WBC 5.3, RBC 4.64, Hgb 13.5 L D, Hct 40.7 L, MCV 87.7, MCH 29.1 , MCHC 33.2, RDW 16.6 H, Plt Count 188, MPV 10.6, Gran % 63.9, Lymph % (Auto) 20.9 L, Edgar % (Auto) 13.7 H, Eos % (Auto) 0.9 L, Baso % (Auto) 0.6, Gran # 3.40 , Lymph # (Auto) 1.1 L, Edgar # (Auto) 0.7 H, Eos # (Auto) 0.1, Baso # (Auto) 0.03 - RAD Interpretation Radiology Orders: 09/22/17 15:00 CHEST PORTABLE [RAD] Stat - EKG Interpretation EKG Interpretation (Text): 09/22/17 15:04 EKG: Ordered, reviewed, and independently interpreted the EKG. Rate : 85 BPM Rhythm : NSR Interpretation : First degree AV block. LAD. RBBB. T-wave inversion in lead III and aVF. Comparison : No change from 04/26/17 and 01/10/17 Interpreted by ED Physician: Yes Type: 12 lead EKG - Medication Orders Current Medication Orders: Discontinued Medications Albuterol Sulfate (Albuterol 0.083% Inhal Chiquita (2.5 Mg/3 Ml) Ud) 2.5 mg INH STAT STA Stop: 09/22/17 16:10 Last Admin: 09/22/17 16:21 Dose: 2.5 mg Ondansetron HCl (Zofran Inj) 4 mg IVP STAT STA Stop: 09/22/17 15:02 Last Admin: 09/22/17 15:35 Dose: Not Given Non-Admin Reason: Patient Refused - Scribe Statement The provider has reviewed the documentation as recorded by the Raegan Boone Provider Scribe Attestation: All medical record entries made by the Scribe were at my direction and personally dictated by me. I have reviewed the chart and agree that the record accurately reflects my personal performance of the history, physical exam, medical decision making, and the department course for this patient. I have also personally directed, reviewed, and agree with the discharge instructions and disposition. Disposition/Present on Arrival - Present on Arrival Any Indicators Present on Arrival: No History of DVT/PE: No History of Uncontrolled Diabetes: No Urinary Catheter: No History Surgical Site Infection Following: None - Disposition Have Diagnosis and Disposition been Completed?: Yes Diagnosis: ESRD (end stage renal disease), Hyperkalemia Disposition: HOME/ ROUTINE Disposition Time: 16:15 Patient Plan: Discharge Patient Problems: Current Active Problems Problem Status Onset ESRD (end stage renal disease) Acute Hyperkalemia Acute Condition: IMPROVED Discharge Instructions (ExitCare): Hyperkalemia Additional Instructions: KALEB SHARPE, thank you for letting us take care of you today. Your provider was Ashvin Oneal DO and you were treated for Nausea, Hyperkalemia. The emergency medical care you received today was directed at your acute symptoms. If you were prescribed any medication, please fill it and take as directed. It may take several days for your symptoms to resolve. Return to the Emergency Department if your symptoms worsen, do not improve, or if you have any other problems. Please contact your doctor or call one of the physicians/clinics you have been referred to that are listed on the Patient Visit Information form that is included in your discharge packet. Bring any paperwork you were given at discharge with you along with any medications you are taking to your follow up visit. Our treatment cannot replace ongoing medical care by a primary care provider outside of the emergency department. Thank you for allowing the [facility] team to be part of your care today. If you had an X-Ray or CT scan: A Radiologist will review the ED reading if any change in treatment is needed we will contact you. If you had a blood, urine, or wound culture: It will take several days for the results, if any change in treatment is needed we will contact you. If you had an STI test: It will take 48 hours for the results. Please call after 1 week if you have not heard back. Referrals: Zeyad Nazario MD [Staff Provider] - Follow up with primary Forms: Between (Congolese)
[2017-09-22 15:35] LABS: VENOUS BLOOD GAS BASE EXCESS 3.2 mmol/L (0.0-2.0); VENOUS BLOOD GAS PO2 38 mm/Hg (30-55); VENOUS BLOOD PH 7.33 (7.32-7.43)
[2017-09-22 15:39] LABS: BASO # 0.03 K/mm3 (0.0-2.0); BASO % 0.6 % (0.0-3.0); EOS # 0.1 (0.0-0.7); EOS % 0.9 % (1.5-5.0); GRAN # 3.4 (1.4-6.5); GRAN % 63.9 % (50.0-68.0); HEMOGLOBIN 13.5 g/dL (14.0-18.0); LYMPH # 1.1 (1.2-3.4); LYMPH % 20.9 % (22.0-35.0); MEAN CELL VOLUME 87.7 fl (80.0-105.0); MEAN CORPUSCULAR HEMOGLOBIN 29.1 pg (25.0-35.0); MEAN CORPUSCULAR HGB CONC 33.2 g/dl (31.0-37.0); MEAN PLATELET VOLUME 10.6 fl (7.0-11.0); MONO # 0.7 (0.1-0.6); MONO % 13.7 % (1.0-6.0); RBC 4.64 10^6/uL (3.5-6.1); RED CELL DISTRIBUTION WIDTH 16.6 % (11.5-14.5); WHITE BLOOD COUNT 5.3 10^3/ul (4.5-11.0)
[2017-09-22 15:54] LABS: CALCIUM 8.9 mg/dL (8.4-10.5)
[2017-09-22] MEDS ORDERED: Albuterol 0.083% Inhal Sol (2.5 mg/3 mL) UD INH STA (16:09)
[2017-09-22 16:26] VITALS: BP 148/86; O2SAT 99
--- NOTE | 2017-09-22 16:55 | RAD ---
HISTORY: Sepsis Patient COMPARISON: Portable chest 04/26/2017. FINDINGS: LUNGS: Poor definition of left hemidiaphragm persist suggesting an element of left basilar airspace disease, likely atelectasis. Limited infiltrate not excluded at left base. None is seen the right. PLEURA: No significant pleural effusion identified, no pneumothorax apparent. CARDIOVASCULAR: Stable cardiomegaly. No pulmonary vascular congestion. OSSEOUS STRUCTURES: No significant abnormalities. VISUALIZED UPPER ABDOMEN: Normal. OTHER FINDINGS: None. IMPRESSION: Recurrent or chronic left basilar atelectasis with infiltrate not excluded completely. No pleural effusion or pneumothorax bilaterally. Cardiomegaly appears stable. No pulmonary vascular congestion.
[2017-09-22 17:47] VITALS: PULSE 85; RESP 16; TEMP 98.5
--- NOTE | 2017-09-22 22:04 | CARD ---
APPROVED REPORT EKG Measurement Heart [id number] <Conclusion> Sinus rhythm with 1st degree AV block Left axis deviation Right bundle branch block Abnormal ECG
== END 2017-09-22 16:48 | disposition home or self-care (01) ==
LOC: ED 14:17
DX: I12.0 Hypertensive chronic kidney disease with stage 5 chronic kidney disease or end stage renal disease (principal); E11.22 Type 2 diabetes mellitus with diabetic chronic kidney disease; N18.6 End stage renal disease; Z99.2 Dependence on renal dialysis; Z79.4 Long term (current) use of insulin; E87.5 Hyperkalemia

== ENCOUNTER 2018-01-12 17:45 | Inpatient (IN) | payer MEDICARE, BC ==
--- NOTE | 2018-01-12 18:09 | ED PDOC ---
Arrival/HPI - General Historian: Patient - History of Present Illness Narrative History of Present Illness (Text): 01/12/18 18:14 Patient is a 87 year old male with a past medical history of ESRD on HD (M/W/F), CAD s/p stenting, hx of GI bleeds, CVA, Gastric cancer, Mitral valve prolapse, DM, HTN, BPH and dementia was brought to the emergency room because of suspected fever and vomiting. Patient's is at bedside to provide all history as patient is pleasantly demented. She reports that patient has not been taking any medications for over 1 year but does receive dialysis 3x a week. This morning patient had two large bowel movements back to back, which is not normal for the patient. The stool was of normal consistency. Then approximately 1 hour prior to arrival, the patient vomited once and his noticed that he felt warm so she decided to call the ambulance. ROS is unreliable as patient is demented. PMD: Dr. Nazario Time/Duration: 1-3 hours Symptom Onset: Sudden Symptom Course: Unchanged Quality: Unable to Describe <Ricky Ca - Last Filed: 01/12/18 20:12> <Sadiq Shepherd - Last Filed: 01/15/18 12:12> - General Time Seen by Provider: 01/12/18 17:49 Past Medical History - Provider Review Nursing Documentation Reviewed: Yes - Infectious Disease Hx of Infectious Diseases: None - Tetanus Immunization Tetanus Immunization: Unknown - Cardiac Hx Cardiac Disorders: Yes (CAD, S/P Stents, NSTEMI) Hx Hypertension: Yes - Pulmonary Hx Respiratory Disorders: Yes (H/O OF SMOKING CIGARETTES.QUIT) - Neurological HX Cerebrovascular Accident: Yes - HEENT Hx HEENT Disorder: Yes (WEARS RX GLASSES) Hx Cataracts: Yes (b/l) Hx Glaucoma: Yes Other/Comment: hx of epistaxix - Renal Hx Renal Disorder: Yes Hx Dialysis: Yes (MWF) Type of Dialysis Access: L FA AV shunt Date of Last Dialysis Treatment: 01/11/18 Hx Renal Failure: Yes (ESRD (Hemodialysis 3x/wk)) - Endocrine/Metabolic Hx Diabetes Mellitus Type 2: Yes (IDDM) - Hematological/Oncological Hx Blood Disorders: Yes (LOWER GI BLEED) - Integumentary Hx Dermatological Disorder: No - Musculoskeletal/Rheumatological Hx Falls: Yes - Gastrointestinal Hx Gastrointestinal Disorders: Yes (gastric ca,colon polyps,consti pation,gastroparesis,gi bleed) - Genitourinary/Gynecological Hx Genitourinary Disorders: Yes (esrd on hd) Hx Reproductive Disorders: Yes (BPH) - Psychiatric Hx Psychophysiologic Disorder: No Hx Substance Use: No Other/Comment: dimentia - Surgical History Hx Cholecystectomy: Yes Hx Coronary Stent: Yes (x1) Other/Comment: AV shunt placement.left forearm - Anesthesia Hx Anesthesia: Yes Hx Anesthesia Reactions: No Hx Malignant Hyperthermia: No - Suicidal Assessment Feels Threatened In Home Enviroment: No <Ricky Ca - Last Filed: 01/12/18 20:12> Family/Social History - Physician Review Nursing Documentation Reviewed: Yes Family/Social History: Unknown Family HX Smoking Status: Unknown If Ever Smoked Hx Alcohol Use: No Hx Substance Use: No Hx Substance Use Treatment: No <Ricky Ca - Last Filed: 01/12/18 20:12> Allergies/Home Meds <Ricky Ca - Last Filed: 01/12/18 20:12> <Sadiq Shepherd - Last Filed: 01/15/18 12:12> Allergies/Adverse Reactions: Allergies No Known Allergies Allergy (Verified 04/30/17 18:39) Home Medications: Home Meds Medication Instructions Recorded Confirmed RX: No Known Home Med 01/12/18 01/12/18 Review of Systems - Review of Systems Systems not reviewed;Unavailable: Dementia <Ricky Ca - Last Filed: 01/12/18 20:12> Physical Exam Vital Signs Reviewed: Yes Temperature: Febrile Blood Pressure: Hypertensive Pulse: Regular Respiratory Rate: Normal Appearance: Positive for: Non-Toxic, Comfortable, Ill-Appearing (chronic) Pain Distress: None Mental Status: Positive for: other (demented) - Systems Exam Head: Present: Atraumatic, Normocephalic Conjunctiva: Present: Normal Mouth: Present: Moist Mucous Membranes Nose (External): Present: Atraumatic Nose (Internal): Present: No Active Bleeding, Moist Neck: No: MIDLINE TENDERNESS, Paraspinal Tenderness, Lymphadenopathy Respiratory/Chest: Present: Clear to Auscultation, Good Air Exchange. No: R espiratory Distress, Accessory Muscle Use, Wheezes, Rales, Rhonchi, Tachypneic Cardiovascular: Present: Regular Rate and Rhythm, Normal S1, S2, Peripheal Pulses Present. No: Murmurs Abdomen: No: Tenderness, Distention, Peritoneal Signs, Rebound, Guarding, McBurney's Point Tender, Rovsing's Sign Present Upper Extremity: Present: Normal Inspection, NORMAL PULSES, Other (AVF fistula with palpable thrill over left forearm). No: Cyanosis, Edema Lower Extremity: Present: Normal Inspection, NORMAL PULSES. No: Edema, CALF TENDERNESS Neurological: Present: GCS=15, Speech Normal, Motor Func Grossly Intact Skin: Present: Warm, Dry, Normal Color. No: Rashes Psychiatric: Present: Alert, Other (demented at baseline). No: Oriented x 3, Normal Insight, Normal Concentration <Ricky Ca - Last Filed: 01/12/18 20:12> Vital Signs Temp Pulse Resp BP Pulse Ox 01/12/18 19:56 98.8 F 89 18 147/93 H 100 01/12/18 19:02 100.7 F H 01/12/18 18:46 101 F H 01/12/18 17:46 101 F H 89 18 140/92 H 99 <Sadiq Shepherd - Last Filed: 01/15/18 12:12> Medical Decision Making ED Course and Treatment: 01/12/18 18:26 Patient is a 87 year old male with a past medical history of ESRD on HD (M/W/F), CAD s/p stenting, hx of GI bleeds, CVA, Gastric cancer, Mitral valve prolapse, DM, HTN, BPH and dementia was brought to the emergency room because of suspected fever and vomiting. Rectal temp 101F Sepsis work up Tylenol, Vanco and Zosyn Labs, CXR and EKG 01/12/18 19:03 CODE Sepsis called @19:03 Temp of 101F, Tachycardia and Leukocytosis - Lactate 3.3 Patient does not need IVF @30mL/kg/hr due to ESRD Chemistry was hemolyzed. Blood re-drawn and sent to lab 01/12/18 20:02 Dr. Nazario contacted and discussed case in detail. Dr. Nazario has accepted patient for full inpatient admission for sepsis to telemetry. Dr. Nazario requested the medical record coder to be contacted. Dr. Fisher contacted and discussed case in detail. resident medical officer team will come and evaluate patient. - Lab Interpretations I have reviewed the lab results: Yes - RAD Interpretation Narrative RAD Interpretations (Text): 01/12/18 20:12 Chest X-ray - no active disease Radiology Orders: 01/12/18 18:07 CHEST PORTABLE [RAD] Stat Placement Interviewer: Radiologist - EKG Interpretation EKG Interpretation (Text): 01/12/18 20:09 Sinus arrhythmia with 1st degree AV block @90bpm, left axis deviation, RBBB - unchanged from prior EKG Interpreted by ED Physician: Yes Type: 12 lead EKG Comparison: Similar to previous EKG <Ricky Ca - Last Filed: 01/12/18 20:12> ED Course and Treatment: 01/15/18 12:11 pt seen with resdient. fever, vomiting h/of dementia. in er, covered with anbitiocis ? source. abd soft no ttp. no anuric 2/2 hd. accepted bedsdie by pmd. mildly elevated trop suspect type 2 nstemi. - Lab Interpretations Microbiology Results: Microbiology Results 01/12/18 18:55 Blood Blood Culture - Preliminary NO GROWTH AFTER 48 HOURS 01/12/18 18:30 Blood Blood Culture - Preliminary NO GROWTH AFTER 48 HOURS 01/12/18 19:16 Stool C. difficile Antigen & Toxins A,B - Final Lab Results: 01/12/18 18:30 01/12/18 19:26 Lab Results 01/12/18 19:26: Sodium 137, Chloride 97 L, Potassium 4.0, Carbon Dioxide 24, Anion Gap 21 H, BUN 29 H, Creatinine 6.4 H, Est GFR ( Amer) 10, Est GFR (Non-Af Amer) 8, Random Glucose 198 H, Calcium 9.3, Magnesium 2.0, Total Bilirubin 1.2, AST 37, ALT 28, Alkaline Phosphatase 93, Lactate Dehydrogenase 538, Total Creatine Kinase 91, Troponin I 0.14 H* D, Total Protein 8.6 H, Albumin 4.3, Globulin 4.3, Albumin/Globulin Ratio 1.0 L, Lipase 106 01/12/18 19:10: Influenza Typ A,B (EIA) Negative for flu a/b 01/12/18 18:40: pO2 51, VBG pH 7.33, VBG pCO2 49.0, VBG HCO3 25.8, VBG Total CO2 27.3, VBG O2 Sat (Calc) 89.4 H, VBG Base Excess -0.7 L, VBG Potassium 17.1 H*, Sodium 124.0 L, Chloride 96.0 L, Glucose 188 H, Lactate 3.3 H, FiO2 21.0, Venous Blood Potassium 17.1 H* 01/12/18 18:30: PT 13.4 H, INR 1.17, APTT 33.9 01/12/18 18:30: WBC 15.4 H D, RBC 4.41, Hgb 13.6 L, Hct 41.0 L, MCV 93.0 D, MCH 30.8, MCHC 33.2, RDW 18.0 H, Plt Count 220, MPV 11.6 H, Gran % 87.6 H, Lymph % (Auto) 6.2 L, [place] % (Auto) 6.1 H, Eos % (Auto) 0.0 L, Baso % (Auto) 0.1, Gran # 13.45 H, Lymph # (Auto) 1.0 L, [place] # (Auto) 0.9 H, Eos # (Auto) 0.0, Baso # (Auto) 0.02 - RAD Interpretation Radiology Orders: 01/12/18 18:07 CHEST PORTABLE [RAD] Stat - Medication Orders Current Medication Orders: Acetaminophen (Tylenol 325mg Tab) 650 mg PO Q6 PRN PRN Reason: TEMP>=99.5F Acetaminophen (Tylenol 650 Mg Supp) 650 mg RC Q6H PRN PRN Reason: TEMP>=99.5F Aspirin (Ecotrin) 81 mg PO DAILY [facility] Last Admin: 01/15/18 10:15 Dose: Not Given Non-Admin Reason: Patient Refused Atorvastatin Calcium (Lipitor) 40 mg PO DIN [facility] Last Admin: 01/14/18 17:29 Dose: Not Given Non-Admin Reason: Patient Refused Benzonatate (Tessalon Perles) 200 mg PO TID [facility] Last Admin: 01/15/18 10:13 Dose: 200 mg Dextrose (Dextrose 50% Inj) 0 ml IV STAT PRN; Protocol PRN Reason: Hypoglycemia Protocol Docusate Sodium (Colace) 100 mg PO TID [facility] Last Admin: 01/15/18 10:13 Dose: Not Given Non-Admin Reason: Patient Refused Doxycycline Hyclate (Doryx) 100 mg PO Q12 [facility]; Protocol Stop: 01/20/18 10:01 Last Admin: 01/15/18 10:15 Dose: 100 mg Heparin Sodium (Porcine) (Heparin) 5,000 units SC Q12 [facility]; Protocol Dextrose (Dextrose 5% In Water 1000 Ml) 1,000 mls @ 0 mls/hr IV .Q0M PRN; Giovany col PRN Reason: Hypoglycemia Protocol Cefepime HCl (Maxipime 1gm) 1 gm in 100 mls @ 100 mls/hr IVPB Q24H [facility] JAV[facility]; Protocol Stop: 01/22/18 18:01 Last Admin: 01/14/18 17:40 Dose: 100 mls/hr eMAR Start Stop Document 01/14/18 17:40 KL (Rec: 01/14/18 17:40 [place] [facility] [id number] Intravenous Solution Start Date 01/14/18 Start Time 17:40 Insulin Human Lispro (Humalog Med) 0 units SC ACHS [facility]; Protocol Last Admin: 01/15/18 08:56 Dose: Not Given Non-Admin Reason: Blood Sugar Parameter [facility] Blood Glucose Document 01/15/18 08:56 KL (Rec: 01/15/18 08:56 KL [id number] Blood Glucose Finger Stick Blood Glucose (70-120) 114 Levalbuterol HCl (Xopenex) 0.63 mg IH C4GPDOL [facility] Last Admin: 01/15/18 07:40 Dose: Not Given Non-Admin Reason: Patient Refused Metronidazole (Flagyl) 500 mg PO Q8 [facility]; Protocol Stop: 01/20/18 14:01 Ondansetron HCl (Zofran Inj) 4 mg IVP Q4H PRN PRN Reason: Nausea/Vomiting Pantoprazole Sodium (Protonix Ec Tab) 40 mg PO 0600 [facility] Last Admin: 01/15/18 07:26 Dose: Not Given Non-Admin Reason: Patient Refused Polyethylene Glycol (Miralax) 17 gm PO BID [facility] Last Admin: 01/15/18 10:15 Dose: 17 gm Discontinued Medications Acetaminophen (Tylenol 325mg Tab) 975 mg PO STAT STA Stop: 01/12/18 18:24 Last Admin: 01/12/18 18:46 Dose: 975 mg MAR Pain/Vitals Document 01/12/18 18:46 LA (Rec: 01/12/18 18:46 LA [id number]) Pain Reassessment Is This A Pain ReAssessment? No Sleep Is patient sleeping during reassessment? No Presence of Pain Presence of Pain No Vitals Temperature (97.6 F-99.6 F) 101 F Temperature Source Oral Re-Assess: MAR Pain/Vitals Document 01/12/18 19:56 LA (Rec: 01/12/18 20:42 [place] [facility] [id number] Pain Reassessment Is This A Pain ReAssessment? No Sleep Is patient sleeping during reassessment? No Presence of Pain Presence of Pain No Vitals Temperature (97.6 F-99.6 F) 98.8 F Temperature Source Rectal Aspirin (Aspirin) 325 mg PO STAT STA Stop: 01/12/18 20:50 Last Admin: 01/12/18 21:21 Dose: 325 mg Heparin Sodium (Porcine) (Heparin) 2,700 units IVP STAT STA; Protocol Stop: 01/14/18 23:41 Last Admin: 01/15/18 00:05 Dose: 2,700 units MAR aPTT Document 01/15/18 00:05 EUSTL (Rec: 01/15/18 00:06 EUSTL [id number] aPTT aPTT (secs) 39.7 IVP Administration Document 01/15/18 00:05 EUSTL (Rec: 01/15/18 00:06 EUST[facility] [id number] Charges for Administration # of IVP Administrations 1 Vancomycin HCl (Vancomycin 1gm) 1 gm in 250 mls @ 167 mls/hr IVPB STAT STA; Protocol Stop: 01/12/18 19:42 Last Admin: 01/12/18 19:35 Dose: 167 mls/hr eMAR Start Stop Document 01/12/18 19:35 LA (Rec: 01/12/18 19:36 [place] [facility] [id number] Intravenous Solution Start Date 01/12/18 Start Time 19:36 End Date 01/12/18 End time 21:06 Total Infusion Time 90 Piperacillin Sod/Tazobactam Sod (Zosyn 3.375 In Ns 100ml) 100 mls @ 200 mls/hr IVPB STAT STA; Protocol Stop: 01/12/18 18:42 Last Admin: 01/12/18 18:46 Dose: 200 mls/hr eMAR Start Stop Document 01/12/18 18:46 LA (Rec: 01/12/18 18:46 LA [id number]) Intravenous Solution Start Date 01/12/18 Start Time 18:46 End Date 01/12/18 End time 19:16 Total Infusion Time 30 Sodium Chloride (Sodium Chloride 0.9%) 500 mls @ 999 mls/hr IV .Q31M STA Stop: 01/12/18 19:39 Last Admin: 01/12/18 19:36 Dose: 999 mls/hr eMAR Start Stop Document 01/12/18 19:36 LA (Rec: 01/12/18 19:36 LA [id number]) Intravenous Solution Start Date 01/12/18 Start Time 19:36 End Date 01/12/18 End time 20:07 Total Infusion Time 31 Heparin Sodium/Sodium Chloride (Heparin 82719 Units/250ml 1/2 Normal Saline) 25,000 units in 250 mls @ 9.536 mls/hr IV .Q24H [facility]; Protocol Last Admin: 01/13/18 21:26 Dose: 12 units/kg/hr, 9.536 mls/hr eMAR Start Stop Document 01/13/18 21:26 LJA (Rec: 01/13/18 21:28 LJA [id number]) Intravenous Solution Start Date 01/13/18 Start Time 21:28 Titration Intervention Document 01/13/18 21:26 LJA (Rec: 01/13/18 21:28 LJA [id number]) Titration Intake Cumulative Intake (Rx) 250 Waste Amount 0 Container Volume 250 Titration Dosing Titration Dose 12 IV Rate 9.536 Intake/Decrease Started/Running Cumulative Dose 77877 Doxycycline Hyclate 100 mg/ (Sodium Chloride) 100 mls @ 100 mls/hr IVPB Q12 [facility]AV[facility]; Protocol Last Admin: 01/14/18 21:46 Dose: 100 mls/hr eMAR Start Stop Document 01/14/18 21:46 EUSTL (Rec: 01/14/18 21:46 EUSTL [id number] Intravenous Solution Start Date 01/14/18 Start Time 21:46 End Date 01/14/18 End time 22:46 Total Infusion Time 60 Meropenem 250 mg/ Sodium (Chloride) 100 mls @ 100 mls/hr IVPB Q12H [facility] JAVIER; Pro tocol Stop: 01/12/18 23:14 Last Admin: 01/12/18 23:00 Dose: 100 mls/hr eMAR Start Stop Document 01/12/18 23:00 LA (Rec: 01/12/18 23:00 LA [id number] Intravenous Solution Start Date 01/12/18 Start Time 23:00 End Date 01/13/18 End time 00:00 Total Infusion Time 60 Metronidazole (Flagyl) 500 mg in 100 mls @ 100 mls/hr IVPB Q8 [facility]AV[facility]; Protocol Stop: 01/22/18 22:01 Last Admin: 01/15/18 05:00 Dose: 100 mls/hr eMAR Start Stop Document 01/15/18 05:00 EUSTL (Rec: 01/15/18 05:00 EUSTL [facility] [id number] Intravenous Solution Start Date 01/15/18 Start Time 05:00 End Date 01/15/18 End time 06:00 Total Infusion Time 60 Heparin Sodium/Sodium Chloride (Heparin 14713 Units/250ml 1/2 Normal Saline) 25,000 units in 250 mls @ 8.16 mls/hr IV .Q24H PRN; Protocol PRN Reason: ADJUST RATE PER PROTOCOL Last Admin: 01/15/18 02:20 Dose: 14 units/kg/hr, 9.52 mls/hr eMAR Start Stop Document 01/15/18 02:20 SRE (Rec: 01/15/18 02:21 SRE [facility] [id number] Intravenous Solution Start Date 01/15/18 Start Time 02:21 Titration Intervention Document 01/15/18 02:20 SRE (Rec: 01/15/18 02:21 SRE [facility] [id number] Titration Intake Cumulative Intake (Rx) 250 Waste Amount 0 Container Volume 250 Titration Dosing Titration Dose 14 IV Rate 9.52 Intake/Decrease Started/Running Cumulative Dose 29121 Metoclopramide HCl (Reglan) 10 mg IVP Q6 [facility] Stop: 01/13/18 12:01 Last Admin: 01/13/18 12:00 Dose: Not Given Non-Admin Reason: Patient in Dialysis <Sadiq Shepherd - Last Filed: 01/15/18 12:12> Disposition/Present on Arrival - Present on Arrival Any Indicators Present on Arrival: No History of DVT/PE: No History of Uncontrolled Diabetes: No Urinary Catheter: No History of Decub. Ulcer: No History Surgical Site Infection Following: None - Disposition Have Diagnosis and Disposition been Completed?: Yes Disposition Time: 20:02 Patient Plan: Admission <Ricky Ca - Last Filed: 01/12/18 20:12> <Sadiq Shepherd - Last Filed: 01/15/18 12:12> - Disposition Diagnosis: Sepsis Disposition: HOSPITALIZED Patient Problems: Current Active Problems Problem Status Onset Sepsis Acute Condition: GUARDED
[2018-01-12] MEDS ORDERED: Vancomycin 1gm in NS 250ml 1 GM/250 ML BAG IVPB STA (18:13)
[2018-01-12] MEDS ORDERED: Piperacillin/Tazobact 3.375 gm 100 ML IVPB STA (18:13)
[2018-01-12 18:48] LABS: VENOUS BLOOD GAS BASE EXCESS -0.7 mmol/L (0.0-2.0); VENOUS BLOOD GAS PO2 51 mm/Hg (30-55); VENOUS BLOOD PH 7.33 (7.32-7.43)
--- NOTE | 2018-01-12 18:50 | RAD ---
Date of service: 01/12/2018 HISTORY: sepsis COMPARISON: 09/22/2017. FINDINGS: LUNGS: The lungs are well inflated. There is mild pulmonary venous congestion. There is linear scarring in both mid lungs. PLEURA: No pleural effusions or pneumothorax. CARDIOVASCULAR: There is mild cardiomegaly. Atherosclerotic aortic arch calcifications are present. OSSEOUS STRUCTURES: Within normal limits for the patient's age. VISUALIZED UPPER ABDOMEN: Normal. OTHER FINDINGS: None. IMPRESSION: No active pulmonary disease.
[2018-01-12 19:00] LABS: BASO # 0.02 K/mm3 (0.0-2.0); BASO % 0.1 % (0.0-3.0); GRAN # 13.45 (1.4-6.5); GRAN % 87.6 % (50.0-68.0); HEMOGLOBIN 13.6 g/dL (14.0-18.0); LYMPH % 6.2 % (22.0-35.0); MEAN CORPUSCULAR HEMOGLOBIN 30.8 pg (25.0-35.0); MEAN CORPUSCULAR HGB CONC 33.2 g/dl (31.0-37.0); MEAN PLATELET VOLUME 11.6 fl (7.0-11.0); MONO # 0.9 (0.1-0.6); MONO % 6.1 % (1.0-6.0); RBC 4.41 10^6/uL (3.5-6.1); WHITE BLOOD COUNT 15.4 10^3/ul (4.5-11.0)
[2018-01-12 19:05] LABS: INR 1.17; PARTIAL THROMBOPLASTIN TIME 33.9 Seconds (25.1-36.5); PROTHROMBIN TIME 13.4 SECONDS (9.4-12.5)
[2018-01-12] MEDS ORDERED: Sodium Chloride 0.9% 500 ML IV STA (19:09)
[2018-01-12 20:02] LABS: ALBUMIN 4.3 g/dL (3.0-4.8); CALCIUM 9.3 mg/dL (8.4-10.5)
[2018-01-12 20:39] LABS: TROPONIN I 0.14 ng/mL
[2018-01-12] MEDS ORDERED: Heparin25000 units/250ml 1/2NS 25,000 UNITS/250 ML BAG IV SCH (21:00)
[2018-01-12] MEDS ORDERED: Dextrose 50% SYRINGE Inj (50 ml) IV PRN (21:26)
[2018-01-12 21:56] VITALS: BMI 26.6
[2018-01-12] MEDS: Heparin 25,000units in 1/2NS 250 ML BAG IV SCH (22:00)
[2018-01-12] MEDS: Insulin Lispro (humaLOG) MEDIUM Coverage SC SCH (22:20)
--- NOTE | 2018-01-12 22:52 | CP.PCM.HP ---
<Laci Ortega - Last Filed: 01/13/18 05:59> History of Present Illness - History of Present Illness History of Present Illness: Laci Ortega, PGY-[address] History and Physical [address] Nazario CC: Weakness HPI: Mr. Lay is a 87 M with extensive PMHx of ESRD on HD (M/W/F), CAD s/p stenting, hx of GI bleeds, CVA, Gastric cancer, Mitral valve prolapse, DM, HTN, BPH and dementia was brought to the emergency room because of suspected fever and vomiting. Patient's was at bedside to provide all history as patient is pleasantly demented. Reports per ED note. She reports that patient has not been taking any medications for over 1 year but does receive dialysis 3x a week. Patient confirmed dialysis yesterday. This morning patient had two large bowel movements back to back, which is not normal for the patient. The stool was of normal consistency. Then approximately 1 hour prior to arrival, the patient vomited once and his noticed that he felt warm so she decided to call the ambulance. ROS is unreliable as patient is demented. Present on Admission - Present on Admission Any Indicators Present on Admission: No Review of Systems - Review of Systems Review of Systems: 12 point ROS completed and negative except as described in HPI. Past Patient History - Infectious Disease Hx of Infectious Diseases: None - Tetanus Immunizations Tetanus Immunization: Unknown - Past Medical History & Family History Past Medical History?: Yes - Past Social History Smoking Status: Unknown If Ever Smoked - CARDIAC Hx Cardiac Disorders: Yes (CAD, S/P Stents, NSTEMI) Hx Hypertension: Yes - PULMONARY Hx Respiratory Disorders: Yes (H/O OF SMOKING CIGARETTES.QUIT) - NEUROLOGICAL HX Cerebrovascular Accident: Yes - HEENT Hx HEENT Problems: Yes (WEARS RX GLASSES) Hx Cataracts: Yes (b/l) Hx Glaucoma: Yes Other/Comment: hx of epistaxix - RENAL Hx Chronic Kidney Disease: Yes Hx Dialysis: Yes (MWF) Type of Dialysis Access: L FA AV shunt Date of Last Dialysis Treatment: 01/11/18 Hx Renal Failure: Yes (ESRD (Hemodialysis 3x/wk)) - ENDOCRINE/METABOLIC Hx Diabetes Mellitus Type 2: Yes (IDDM) - HEMATOLOGICAL/ONCOLOGICAL Hx Blood Disorders: Yes (LOWER GI BLEED) - INTEGUMENTARY Hx Dermatological Problems: No - MUSCULOSKELETAL/RHEUMATOLOGICAL Hx Falls: Yes - GASTROINTESTINAL Hx Gastrointestinal Disorders: Yes (gastric ca,colon polyps,constipation,gastroparesis,gi bleed) - GENITOURINARY/GYNECOLOGICAL Hx Genitourinary Disorders: Yes (esrd on hd) Hx Reproductive Disorders: Yes (BPH) - PSYCHIATRIC Hx Psychophysiologic Disorder: No Hx Substance Use: No Other/Comment: dimentia - SURGICAL HISTORY Hx Cholecystectomy: Yes Hx Coronary Stent: Yes (x1) Other/Comment: AV shunt placement.left forearm - ANESTHESIA Hx Anesthesia: Yes Hx Anesthesia Reactions: No Hx Malignant Hyperthermia: No Meds Allergies/Adverse Reactions: Allergies Allergy/AdvReac Type Severity Reaction Status Date / Time No Known Allergies Allergy Verified 04/30/17 18:39 Physical Exam - Constitutional Appears: Non-toxic, No Acute Distress - Head Exam Head Exam: ATRAUMATIC, NORMOCEPHALIC - Eye Exam Eye Exam: EOMI, Normal appearance - ENT Exam ENT Exam: Mucous Membranes Moist, Normal Exam - Neck Exam Neck exam: Positive for: Normal Inspection - Respiratory Exam Respiratory Exam: Clear to Auscultation Bilateral, NORMAL BREATHING PATTERN. absent: Accessory Muscle Use, Chest Wall Tenderness - Cardiovascular Exam Cardiovascular Exam: RRR, +S1, +S2, Systolic Murmur () - GI/Abdominal Exam GI & Abdominal Exam: Soft. absent: Tenderness - Extremities Exam Extremities exam: Negative for: joint swelling, tenderness - Back Exam Back exam: absent: CVA tenderness (L), CVA tenderness (R) - Neurological Exam Neurological exam: Alert (AAOx2) Results - Vital Signs Recent Vital Signs: Last Vital Signs Temp 98.8 F 01/12/18 19:56 Pulse 89 01/12/18 19:56 Resp 18 01/12/18 19:56 BP 147/93 H 01/12/18 19:56 Pulse Ox 100 01/12/18 19:56 - Labs Result Diagrams: 01/12/18 18:30 01/12/18 19:26 Labs: Laboratory Results - last 24 hr 01/12/18 01/12/18 01/12/18 18:30 18:30 18:40 WBC 15.4 H D RBC 4.41 Hgb 13.6 L Hct 41.0 L MCV 93.0 D MCH 30.8 MCHC 33.2 RDW 18.0 H Plt Count 220 MPV 11.6 H Gran % 87.6 H Lymph % (Auto) 6.2 L [place] % (Auto) 6.1 H Eos % (Auto) 0.0 L Baso % (Auto) 0.1 Gran # 13.45 H Lymph # (Auto) 1.0 L [place] # (Auto) 0.9 H Eos # (Auto) 0.0 Baso # (Auto) 0.02 PT 13.4 H INR 1.17 APTT 33.9 pO2 51 VBG pH 7.33 VBG pCO2 49.0 VBG HCO3 25.8 VBG Total CO2 27.3 VBG O2 Sat (Calc) 89.4 H VBG Base Excess -0.7 L VBG Potassium 17.1 H* Sodium 124.0 L Chloride 96.0 L Glucose 188 H Lactate 3.3 H FiO2 21.0 Potassium Carbon Dioxide Anion Gap BUN Creatinine Est GFR ( Amer) Est GFR (Non-Af Amer) POC Glucose (mg/dL) Random Glucose Calcium Magnesium Total Bilirubin AST ALT Alkaline Phosphatase Lactate Dehydrogenase Total Creatine Kinase Troponin I Total Protein Albumin Globulin Albumin/Globulin Ratio Lipase Venous Blood Potassium 17.1 H* Influenza Typ A,B (EIA) 01/12/18 01/12/18 01/12/18 19:10 19:26 22:19 WBC RBC Hgb Hct MCV MCH MCHC RDW Plt Count MPV Gran % Lymph % (Auto) [place] % (Auto) Eos % (Auto) Baso % (Auto) Gran # Lymph # (Auto) [place] # (Auto) Eos # (Auto) Baso # (Auto) PT INR APTT pO2 VBG pH VBG pCO2 VBG HCO3 VBG Total CO2 VBG O2 Sat (Calc) VBG Base Excess VBG Potassium Sodium 137 Chloride 97 L Glucose Lactate FiO2 Potassium 4.0 Carbon Dioxide 24 Anion Gap 21 H BUN 29 H Creatinine 6.4 H Est GFR ( Amer) 10 Est GFR (Non-Af Amer) 8 POC Glucose (mg/dL) 179 H Random Glucose 198 H Calcium 9.3 Magnesium 2.0 Total Bilirubin 1.2 AST 37 ALT 28 Alkaline Phosphatase 93 Lactate Dehydrogenase 538 Total Creatine Kinase 91 Troponin I 0.14 H* D Total Protein 8.6 H Albumin 4.3 Globulin 4.3 Albumin/Globulin Ratio 1.0 L Lipase 106 Venous Blood Potassium Influenza Typ A,B (EIA) Negative for flu a/b Assessment & Plan - Assessment and Plan (Free Text) Assessment: Assessment: 87 M with extensive PMHx of ESRD on HD (M/W/F), CAD s/p stenting, hx of GI bleeds, CVA, Gastric cancer, Mitral valve prolapse, DM, HTN, BPH and dementia who presents with NSTEMI. Plan: NSTEMI Trop 0.14, trend x2 Asa and Lipitor daily Heparin drip Cardio consult - Dr. Dewey PTT AM labs a1c, lipid panel, mg, phos Tylenol PRN for fever/pain Xopenex for SOB, NC Reglan for nausea ESRD on HD MWF consider HD inpatient today Nephro consulted - Dr.. Erickson consulted Large Bowel Movements f/u c. diff toxin PPx Protonix, SCDs Diet: consistent carb Dispo: PT/OT Case reviewed, and plan apprved by Dr. Nazario, attending. Laci Ortega, PGY-1 <Zeyad Nazario U - Last Filed: 01/23/18 20:16> Results - Vital Signs Recent Vital Signs: Last Vital Signs Temp 97.3 F L 01/19/18 14:00 Pulse 80 01/19/18 14:00 Resp 16 01/19/18 14:00 BP 134/78 01/19/18 14:00 Pulse Ox 98 01/19/18 14:00 - Labs Result Diagrams: 01/18/18 13:00 01/18/18 13:00 Attending/Attestation - Attestation I have personally seen and examined this patient.: Yes I have fully participated in the care of the patient.: Yes I have reviewed all pertinent clinical information: Yes Notes (Text): Please see/read my dictated notes.
[2018-01-12 22:55] LABS: VENOUS BLOOD GAS BASE EXCESS -2.2 mmol/L (0.0-2.0); VENOUS BLOOD GAS PO2 41 mm/Hg (30-55); VENOUS BLOOD PH 7.32 (7.32-7.43)
--- NOTE | 2018-01-12 23:25 | PCM.SEPTIC ---
<Laci Ortega - Last Filed: 01/13/18 01:29> Sepsis Progress Note - Reassessment Type Date of Evaluation: 01/12/18 Time of Evaluation: 23:15 Reassessment Type: Non-invasive reassessment - Non Invasive Reassessment Were the most recent vital sign reviewed: Yes Vital Sign (Latest): Temp Pulse Resp BP Pulse Ox 98 F 89 18 154/77 H 100 01/12/18 23:06 01/12/18 19:56 01/12/18 23:06 01/12/18 23:06 01/12/18 23:06 Cardiovascular: Yes: Regular Rate, Rhythm. No: Chest Non Tender, Gallop, JVD Respiratory: Yes: Decreased Breath Sounds. No: Accessory Muscle Use Capillary Refill: Normal (Less than 2 sec) Skin: Normal Color, Warm, Dry <Zeyad Nazario - Last Filed: 01/23/18 20:16> Sepsis Progress Note - Non Invasive Reassessment Vital Sign (Latest): Temp Pulse Resp BP Pulse Ox 97.3 F L 80 16 134/78 98 01/19/18 14:00 01/19/18 14:00 01/19/18 14:00 01/19/18 14:00 01/19/18 14:00 Attending/Attestation - Attestation I have personally seen and examined this patient.: Yes I have fully participated in the care of the patient.: Yes I have reviewed all pertinent clinical information, including history, physical exam and plan: Yes
[2018-01-13] MEDS: Levalbuterol 0.63 MG/3 ML Inhal Soln UD IH SCH ×4 (01:31→19:51)
[2018-01-13] MEDS ORDERED: Levalbuterol 1.25 MG/3 ML Inhal Soln UD IH SCH (02:00)
[2018-01-13] MEDS: Pantoprazole 40 mg EC Tab PO SCH (05:50)
[2018-01-13 06:53] LABS: BASO # 0.01 K/mm3 (0.0-2.0); BASO % 0.1 % (0.0-3.0); GRAN # 11.81 (1.4-6.5); GRAN % 86.8 % (50.0-68.0); HEMOGLOBIN 11.8 g/dL (14.0-18.0); LYMPH # 0.9 (1.2-3.4); LYMPH % 6.9 % (22.0-35.0); MEAN CORPUSCULAR HEMOGLOBIN 29.6 pg (25.0-35.0); MEAN CORPUSCULAR HGB CONC 32.2 g/dl (31.0-37.0); MEAN PLATELET VOLUME 10.9 fl (7.0-11.0); MONO # 0.8 (0.1-0.6); MONO % 6.2 % (1.0-6.0); RBC 3.98 10^6/uL (3.5-6.1); WHITE BLOOD COUNT 13.6 10^3/ul (4.5-11.0)
[2018-01-13 07:12] LABS: ALB/GLOB RATIO 0.9 (1.1-1.8); ALBUMIN 3.7 g/dL (3.0-4.8); BILIRUBIN,DIRECT 0.7 mg/dL (0.0-0.4)
--- NOTE | 2018-01-13 07:28 | HP ---
DATE OF EXAM: 01/12/2018 HISTORY OF PRESENT ILLNESS: The patient is an 87-year-old male who was brought into the [facility] emergency room by the [facility] ambulance. According to the patient's , the patient came to the emergency room complaining of episodes of vomiting and soft bowel movements and also, the patient's stated that the patient felt warm. The patient was seen yesterday in the office after a few months and according to the patient's , the patient has stopped taking all his medications which was prescribed upon his last discharge and the patient has stopped taking all his medications since his last discharge of 04/2017, and only thing the patient is doing is patient is going to his dialysis on a regular basis and stopped all his medications. REVIEW OF SYSTEMS: The patient's 13-system review was positive for fever; positive for nausea, vomiting; negative for chest pain; negative shortness of breath; negative for hemoptysis, hematemesis, melena. CODE STATUS: Full code. LIVING WILL ADVANCE DIRECTIVE: None. HEIGHT: 5 feet 8 inches. ALLERGIES: None. BODY MASS INDEX: 24. HOME MEDICATIONS: The patient stopped all his home medications as per the patient's . SOCIAL HISTORY: The patient's social history is positive for former smoker. Negative for alcohol use. Negative for substance abuse. Negative for communicable transmissible disease. 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 FAMILY HISTORY: Not available. PHYSICAL EXAMINATION GENERAL: The patient was seen in stretcher #11 in the emergency room. The patient is seen lying in the stretcher with the patient's at bedside. The patient is alert, awake, oriented x1 to zero. The patient is confused because of underlying advanced dementia. VITAL SIGNS: T-max is 101, rectal temperature was found to be 100.7 and oral temperature was 101, heart rate 88-89, blood pressure 140/92, 147/93, respirations 18, O2 sat 99%-100% on room air. HEAD: Normocephalic, atraumatic. HEENT: Pinkish pale conjunctivae. Dry oral mucosa. No neck rigidity. CHEST: Kyphosis. LUNGS: Shows occasional rhonchi in upper lung chaney bilaterally. CARDIOVASCULAR: S1, S2, regular rhythm with positive systolic murmur, right second intercostal space, left second intercostal space, left sternal border. ABDOMEN: Soft. Positive bowel sound. GENITALIA: Male. RECTAL: Deferred. EXTREMITIES: Lower extremity shows no pitting edema, no calf tenderness, no Homans sign. Positive left upper extremity AV fistula, positive thrill. MUSCULOSKELETAL: Shows a body mass index of 24. NEUROLOGIC: The patient is alert, awake, responsive, confused, disoriented, is able to move upper and lower extremity without assistance. Gait examination is not tested. LABORATORY DATA: WBC is 15.4, hemoglobin/hematocrit 13.6/41.0, platelet 220. Granulocytes 88% segs, PT/PTT 13.4/33.9. VBG shows a pH of 7.33, pO2 51, pCO2 49, bicarb 26, lactate of 3.3. Sodium 137, potassium 4.0, chloride 97, CO2 24, anion gap 21, BUN 29, creatinine 6.4, glucose 198, calcium 9.3, magnesium 2.0. LFTs are normal. Troponin is pending. Influenza was negative. DIAGNOSTIC DATA: The patient's EKG shows sinus rhythm with right bundle-branch block. Chest x-ray shows chronic pulmonary scarring with slight cardiomegaly. The patient's EKG shows sinus rhythm, right bundle-branch block. The patient's chest x-ray dictated above. PAST MEDICAL AND SURGICAL HISTORY: History of acute ischemic cerebral infarct; history of severe advanced dementia; history of delirium; history of end-stage renal disease, hemodialysis dependent; history of multiple non-ST elevation myocardial infarctions; history of multivessel coronary artery disease; history of angioplasty and stent placement; history of right bundle-branch block; history of pneumonia; history of advanced dementia; history of constipation; history of diabetic gastroparesis; history of questionable gastric carcinoma; history of multiple recurrent admissions for sepsis and pneumonia and systemic inflammatory response syndrome; history of diabetic gastroparesis; history of gastrointestinal bleeding; history of diverticular bleeding; history of gastric erosions; history of gastritis; history of hiatal hernia; history of duodenal nodule; history of pulmonary hypertension; history of bilateral cerebral dysfunction; history of cardiac catheterization; history of 70% stenosis of the mid left anterior descending artery; history of subtotal occlusion of the obtuse marginal branch; history of left circumflex heavily calcified and tortuous; history of ostial occlusion of the right coronary artery; history of left ventricular ejection fraction of 45%; history of angioplasty and stent placement of the mid LAD with a bare-metal stent; history of right bundle-branch block; history of left axis deviation; history of mild aortic stenosis; questionable history of gastric carcinoma; history of gastric resection; history of colonic polyp; history of tubular adenoma; history of hypertension; history of secondary hyperparathyroidism; history of hyperphosphatemia; history of gait dysfunction. The patient was seen in the emergency room by the ER physician, *------*. The patient was given IV fluid 500 mL bolus, Tylenol 975 mg, vancomycin 1 g, Zosyn 3.375 g was given and the patient was advised to be admitted. IMPRESSION AND PLAN: 1. Questionable systemic inflammatory response syndrome versus sepsis. 2. High-grade fever. 3. Hypertension. 4. Leukocytosis with granulocytosis. 5. Mild normocytic anemia. 6. Increased anion gap, metabolic acidosis, and lactic acidosis. 7. History of end-stage renal disease, hemodialysis dependent. 8. History of insulin-requiring diabetes mellitus, off all medications. 9. History of severe noncompliance. 10. History of advanced dementia. 11. History of gait dysfunction. Plan at this time, the patient has received the IV antibiotics in the emergency room. The patient will be admitted as per the ER physician orders. The patient will have repeat lab work ordered. The patient will be ordered blood cultures. Infectious Disease and Nephrology consultation will be ordered for further management of the patient and regarding IV antibiotics management and further IV antibiotic treatment. The patient will be consulted with Nephrology for continuation of hemodialysis. Repeat lab work will be ordered. The patient will be started on GI and DVT prophylaxis. The patient will be ordered Tylenol for fever. The patient's further management will be dependent upon the patient's clinical condition, hemodynamic status, and as per the patient's response to therapeutic intervention as per the patient's diagnostic test results and as per recommendation by all the physician involved in the care of the patient. I have spoken to the patient's at length, and I have explained that the patient's overall prognosis is guarded to poor secondary to the patient's clinical condition, history of noncompliance. According to the patient's , the patient has stopped taking all his medications. I have explained to the patient's about the need for patient's hospitalization, need for further management. Treatment plan was explained and discussed with the patient and his at length, and all questions concerned answered. Dictated and electronically signed, not read. Zeyad Nazario MD BREA
[2018-01-13] MEDS: POLYETHYLENE GLYCOL 3350 17 GM/Dose PACKET PO SCH ×2 (09:10→18:21)
[2018-01-13] MEDS: Insulin Lispro (humaLOG) MEDIUM Coverage SC SCH ×4 (09:12→21:21)
--- NOTE | 2018-01-13 10:20 | CARD ---
APPROVED REPORT Date of service: 01/12/2018 EKG Measurement Heart [id number] <Conclusion> Sinus rhythm with sinus arrhythmia with 1st degree AV block Left axis deviation Right bundle branch block Abnormal ECG
--- NOTE | 2018-01-13 10:25 | CARD ---
APPROVED REPORT Date of service: 01/13/2018 EKG Measurement Heart [id number] <Conclusion> Sinus rhythm with 1st degree AV block Right bundle branch block Left anterior fascicular block Bifascicular block Abnormal ECG
--- NOTE | 2018-01-13 11:16 | PN ---
DATE: 01/13/2018 SUBJECTIVE: The patient was seen lying in the bed in room 271, bed 1. Overnight nurse's notes were reviewed. The patient stayed without any adverse events. The 14-system review was negative for headache, negative for chest pain, negative for shortness breath, negative for nausea, vomiting, diarrhea or constipation. Negative for hemoptysis, hematemesis or melena. Negative for abdominal pain, negative for syncope. PHYSICAL EXAMINATION: VITAL SIGNS: T-max is 101 degrees Fahrenheit, down to 97.7. Telemetry shows normal sinus rhythm, heart rate 78, 82, 92, 91, blood pressure 132/84, 146/90, respirations 16-20, O2 sat 98-99% on nasal cannula 2 liters. HEAD: Normocephalic, atraumatic. HEENT examination shows pinkish pale conjunctivae. Anicteric sclerae. No oropharyngeal lesion. No neck rigidity. Soft carotid bruit. CHEST: Kyphosis. LUNGS: Shows no rales, crackles or wheezing. Occasional rhonchi in anterior upper lung chaney. CARDIOVASCULAR: Shows S1, S2, regular rhythm. Questionable soft systolic murmur at left sternal border, right second intercostal space, left second intercostal space. ABDOMEN: Soft. Positive bowel sounds. GENITALIA: Male. RECTAL: Deferred. EXTREMITIES: Shows positive left upper extremity AV fistula, positive thrill. Lower extremity shows no pitting edema, no calf tenderness. No Homans' sign. NEUROLOGIC: The patient is alert, awake, responsive, oriented to person, place and time. MUSCULOSKELETAL: Shows a body mass index of 27. LABORATORY DATA: VBG, lactate is 3.3. Chemistry, sodium 136, potassium 4.6, chloride 99, CO2 of 25, anion gap 17, BUN 35, creatinine 6.5, GFR 10. Fingerstick blood sugar 198, 179, 169, serum lactic acid is 2.2 which is borderline elevated. Calcium 8, phosphorus 4.1, magnesium 1.9. LFTs are normal. Peak troponin is 1, total cholesterol 159, LDL 81, HDL 40, Lipase 106. Influenza A and B negative. Microbiology results pending. IMPRESSION AND PLAN: 1. Questionable possible systemic inflammatory response syndrome with high-grade fever and tachycardia. 2. Leukocytosis with granulocytosis. 3. Normocytic anemia and anemia of chronic disease. 4. Questionable acute non-ST elevation myocardial infarction with elevated troponin. 5. Increased anion gap metabolic and lactic acidosis. 6. End-stage renal disease, hemodialysis dependent. 7. Insulin-requiring diabetes mellitus with hyperglycemia. 8. 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 9. Mild normocytic anemia. 10. History of severe noncompliance. 11. History of dementia. 12. Bilateral midlung pulmonary scarring. 13. Cardiomegaly. 14. Deconditioning. 1. Questionable systemic inflammatory response syndrome versus sepsis. 2. High-grade fever. 3. Hypertension. 4. Leukocytosis with granulocytosis. 5. Mild normocytic anemia. 6. Increased anion gap, metabolic acidosis, and lactic acidosis. 7. History of end-stage renal disease, hemodialysis dependent. 8. History of insulin-requiring diabetes mellitus, off all medications. 9. History of severe noncompliance. 10. History of advanced dementia. 11. History of gait dysfunction. PLAN: At this time, repeat labs ordered. Serial troponin orders. Blood cultures results pending. Current consultation, Infectious Disease, Nephrology, Cardiology. TCU referral ordered. Procalcitonin level ordered. Current medications, Colace 100 mg three times a day, doxycycline 100 mg IV every 12 hours, Ecotrin 81 mg daily heparin drip at 12 units per hour, Humalog medium dose sliding scale coverage, Lipitor 40 mg daily, MiraLax 17 twice a day, Protonix 40 mg daily, Reglan 10 mg IV every 6 hours, total of four doses ordered. Tessalon Perles 200 three times a day, Tylenol p.o. suppository every 6 hours p.r.n. The patient received a gram of vancomycin. The patient was started on meropenem which completed the 2 of 4 doses. The patient is on Xopenex nebulizer 0.63 every 6 hours, Zofran four IV every 4 hours. Chest PT, incentive spirometry, consistent carbohydrate diet. Hypoglycemic protocol, out of bed, physical therapy, occupational therapy all ordered. The patient's updated about the patient's overall [id number] prognosis because of advanced age and multiple complicated problems. The patient has been ordered out of bed. At present, the patient will be continued on the above therapeutic intervention. Dictated and electronically signed, not read. Zeyad Nazario MD [email or web address]
[2018-01-13 12:42] LABS: PARTIAL THROMBOPLASTIN TIME 56.2 Seconds (25.1-36.5)
[2018-01-13] MEDS: Cefepime 1gm in NS 100ml 1 GM/100 ML BAG IVPB SCH (18:45)
--- NOTE | 2018-01-13 19:12 | US ---
HISTORY: Leg pain and swelling. Evaluate for DVT PHYSICIAN(S): Jamin Streeter MD. TECHNIQUE: Duplex sonography and color-flow Doppler with graded compression were used to evaluate the deep venous systems of both lower extremities. FINDINGS: The visualized deep venous systems of both lower extremities are sonographically normal and compressible. Normal wave forms and augmentation are seen. There is no sonographic evidence for deep venous thrombosis in the visualized segments of both lower extremities. There is a right popliteal artery aneurysm measuring approximately 2 cm with associated thrombus. IMPRESSION: No sonographic evidence for deep venous thrombosis in the visualized segments of both lower extremities. 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 This can be evaluated further with a CT a or MRA runoff if clinically indicated
--- NOTE | 2018-01-13 20:34 | CON ---
DATE OF CONSULTATION: 01/13/2018 The patient is seen early this morning in Room 271, Bed 1. CHIEF COMPLAINT: Vomiting x1 day. HISTORY OF PRESENT ILLNESS: The patient is an 87-year-old male with a history of advanced dementia, history of delirium, chronic renal failure, on hemodialysis, coronary artery disease, myocardial infarction, gastroparesis, diabetes, diabetic gastroparesis, gastric cancer, gastrointestinal bleed, hypertension, who is admitted with a diagnosis of sepsis and leukocytosis and infectious disease consultation requested. The patient is a poor historian and has been feverish, reported no chills. There is mild shortness of breath, mild cough, no chest pain. No abdominal pain, diarrhea or constipation. No bright red blood per rectum and no dysuria or frequency. PAST MEDICAL HISTORY: Significant for dementia, delirium, chronic renal failure, on hemodialysis, coronary artery disease, gastroparesis, diabetes mellitus, gastric cancer, GI bleed, hypertension. PAST SURGICAL HISTORY: Significant for cardiac catheterization, PCI. MEDICATIONS AT HOME: Reviewed. ALLERGIES: NO KNOWN ALLERGIES. REVIEW OF SYSTEMS: A 12-point review of systems performed. PHYSICAL EXAMINATION: The patient's temperature is 101, blood pressure is 130/90, respiratory rate of 21, and heart rate of 91. Examination of the HEENT is unremarkable. Neck is supple. Lungs have decreased breath sounds. Heart exam is normal S1 and S2. Abdominal examination is soft and nontender. LABORATORY EXAMINATION: Reveals a white count of 15,400, hemoglobin of 13, platelets of 220. Coagulation is noted. Chemistry is noted. BUN is 35, creatinine is 6.5. Procalcitonin is 16.7. Influenza is negative. C. diff is reported to be negative antigen and toxin. The patient had a chest x-ray, which showed vascular congestion and microbiology pending. ASSESSMENT AND PLAN: This is an 87-year-old male with advanced dementia, delirium, chronic renal failure, on hemodialysis, coronary artery disease, myocardial infarction, gastroparesis, diabetes mellitus, gastrointestinal bleed, hypertension with fever, tachycardia, leukocytosis, and #1 is systemic inflammatory response syndrome, rule out healthcare-associated pneumonia versus GI pathology. The patient is given a dose of vancomycin and we will treat the patient with Maxipime. The patient is also on doxycycline with recent use of Flagyl, pending blood culture, urine culture, stool culture, initial workup results. He has doxycycline for atypical coverage. He should have a CAT scan of the abdomen and pelvis. We will consider a CAT scan of the chest also. We will follow with you. Magdy Diego MD
[2018-01-13] MEDS: metroNIDAZOLE IV 500 mg/100 ml 500 MG/100 ML BAG IVPB SCH (21:20)
[2018-01-13] MEDS: Heparin 25,000units in 1/2NS 250 ML BAG IV SCH (21:26)
--- NOTE | 2018-01-13 23:43 | CON ---
DATE: 01/13/2018 CARDIOLOGY CONSULT Covering for Dr. Jamin Dewey. REASON FOR CONSULTATION: Coronary artery disease, fever. HISTORY OF PRESENT ILLNESS: The patient is an 87-year-old male who has end-stage renal disease, on hemodialysis for the past five years according to the patient, history of coronary stenting in 04/2016, the patient underwent a bare-metal stenting to the mid LAD, and at that time, the patient was found to have an ejection fraction of 45% to 50%. The choice of bare-metal stenting was made because of the patient's history of GI bleeding. The patient presented because of fever and vomiting. The patient denies any retrosternal chest pain or shortness of breath at this time. PAST MEDICAL HISTORY: History of coronary artery disease, status post mid LAD stenting in 04/2016; history of end-stage renal disease, on hemodialysis for the past five years; history of CVA; history of GI bleeding; history of gastric carcinoma. SOCIAL HISTORY: The patient is a nonsmoker. He lives with his . HOME MEDICATIONS: Doxycycline 100 mg every 12 hours, once a day, intravenous heparin on therapeutic regimen, Lipitor 40 mg once a day, Protonix 40 mg once a day, Reglan 10 mg every 6 hours, Tylenol p.r.n. for fever above 99.5, Zofran 4 mg every 4 hours p.r.n. PHYSICAL EXAMINATION GENERAL: The patient is an elderly male who does not appear to be in acute distress. VITAL SIGNS: Blood pressure 132/84, heart rate 78, temperature 97.6, respirations 20. HEENT: Normocephalic. CHEST: Clear. CARDIOPULMONARY: S1, S2 regular. ABDOMEN: Soft. EXTREMITIES: No edema. DATA: Chest x-ray revealed no active disease. I did review the x-ray myself and it revealed cardiomegaly with prominent bronchovesicular markings. EKG revealed sinus rhythm at a rate of 90, with fascicular block, left axis deviation, right bundle-branch block. Hemoglobin and hematocrit 11.8 and 36.6, white count 15.6, platelet count 176,000. Sodium 136, potassium 4.6, chloride 99, CO2 of 25, glucose 169, BUN 35, creatinine 6.5. Troponin 0.19, 1, and 1. I reviewed his PTT, it is 65. C. diff antigen is negative. ASSESSMENT: 1. Coronary artery disease with history of mid left anterior descending artery stenting in 04/2016. 2. Systolic heart failure. 3. End-stage renal disease, on hemodialysis. 4. Fever, rule out bacterial hepatitis. 5. History of gastrointestinal bleeding in the past. 6. Borderline troponin elevation. PLAN: Continue chronic intravenous heparin and continue aspirin 81 mg a day, continue Lipitor at 40 mg once a day. Start Coreg 3.125 mg twice a day. Obtain an echocardiogram and d-dimer as well as venous Doppler of the lower extremities. Al Strong MD
[2018-01-14] MEDS: Pantoprazole 40 mg EC Tab PO SCH (05:14)
[2018-01-14] MEDS: metroNIDAZOLE IV 500 mg/100 ml 500 MG/100 ML BAG IVPB SCH ×3 (05:14→21:41)
[2018-01-14] MEDS: Levalbuterol 0.63 MG/3 ML Inhal Soln UD IH SCH ×3 (07:31→20:01)
[2018-01-14 07:51] LABS: BASO # 0.02 K/mm3 (0.0-2.0); BASO % 0.2 % (0.0-3.0); EOS % 0.3 % (1.5-5.0); GRAN # 7.55 (1.4-6.5); GRAN % 77.2 % (50.0-68.0); HEMOGLOBIN 10.8 g/dL (14.0-18.0); LYMPH % 9.8 % (22.0-35.0); MEAN CELL VOLUME 91.8 fl (80.0-105.0); MEAN CORPUSCULAR HEMOGLOBIN 29.7 pg (25.0-35.0); MEAN CORPUSCULAR HGB CONC 32.3 g/dl (31.0-37.0); MEAN PLATELET VOLUME 10.8 fl (7.0-11.0); MONO # 1.2 (0.1-0.6); MONO % 12.5 % (1.0-6.0); RBC 3.64 10^6/uL (3.5-6.1); RED CELL DISTRIBUTION WIDTH 17.3 % (11.5-14.5); WHITE BLOOD COUNT 9.8 10^3/ul (4.5-11.0)
[2018-01-14 08:03] LABS: ALB/GLOB RATIO 0.9 (1.1-1.8); ALBUMIN 3.5 g/dL (3.0-4.8); BILIRUBIN,DIRECT 0.6 mg/dL (0.0-0.4); CALCIUM 8.6 mg/dL (8.4-10.5)
[2018-01-14] MEDS: Insulin Lispro (humaLOG) MEDIUM Coverage SC SCH ×5 (08:43→22:01)
[2018-01-14] MEDS: POLYETHYLENE GLYCOL 3350 17 GM/Dose PACKET PO SCH ×2 (11:16→17:30)
--- NOTE | 2018-01-14 14:16 | CON ---
DATE: 01/13/2018 REASON FOR CONSULTATION: ESRD, altered mental status. HISTORY OF PRESENT ILLNESS: This 87-year-old male known to me from outpatient hemodialysis. The patient was brought to the emergency room yesterday because of complaints of not feeling well at home, fever, chills, the patient denies any cough. He denies any shortness of breath. He denies any chest pain today. He complains of vomiting at home. He also reports he had two large bowel movements. In the emergency room, he was found to be normotensive. He had a temperature of 101. His WBC count was elevated at 15. His chest x-ray showed some mild pulmonary venous congestion. The patient was admitted for possible sepsis. Currently, he is awake, he is alert. He is seen on dialysis. He seems comfortable. PAST MEDICAL AND SURGICAL HISTORY: NIDDM, hypertension, ESRD, CAD, PTCA and stent, GI bleed, CVA, remote history of gastric cancer, dementia, anemia, secondary hyperparathyroidism. FAMILY HISTORY: Noncontributory. SOCIAL HISTORY: Ex-smoker, no alcohol use, no IV drug abuse. ALLERGIES: NO KNOWN DRUG ALLERGIES. MEDICATIONS AT HOME: Not available. Current medications; cefepime 1 g, Lipitor 40, insulin coverage, Flagyl 500 every 8, doxycycline 100 every 12. PHYSICAL EXAMINATION: GENERAL: Elderly male lying in bed in the dialysis unit, in no acute distress. VITAL SIGNS: Blood pressure 131/94, heart rate 90, respiratory rate 18, temperature 97.7. T-max 101. HEENT: Normocephalic, atraumatic, positive pallor. NECK: Supple, no JVD. LUNGS: Bilateral equal entry, bilateral equal expansion. CARDIAC: S1, S2, regular rate and rhythm, no murmur, no rub. ABDOMEN: Soft, nondistended, nontender, bowel sounds present. EXTREMITIES: No extremity edema. LABORATORY DATA: WBC 13.6, hemoglobin 11.8, hematocrit 36.6, platelet 176. Sodium 136, potassium 4.6, chloride 99, CO2 25, BUN 35, creatinine 6.5, glucose 169, A1c 5.8, calcium 8.0, phosphorus 4.4, magnesium 1.9, troponin 1.0. Procalcitonin 16.7. ASSESSMENT: 1. Fever, leukocytosis, sepsis ? source. 2. Elevated troponins, ? acute coronary syndrome. 3. Non-insulin dependent diabetes mellitus. 4. Hypertension. 5. End- stage renal disease. 6. History of coronary artery disease, percutaneous transluminal coronary angioplasty and stent. PLAN 1. Currently, the patient is receiving hemodialysis. 2. Agree with empiric antibiotics. 3. Follow up cultures. 4. Cardiology evaluation. 5. Monitor electrolytes. Thank you for the courtesy of this consultation. We will follow this patient closely with you. Brinda Ibarra MD
[2018-01-14] MEDS ORDERED: Heparin25000 units/250ml 1/2NS 25,000 UNITS/250 ML BAG IV PRN (15:33)
[2018-01-14] MEDS: Heparin25000 units/250ml 1/2NS 25,000 UNITS/250 ML BAG IV PRN (15:58)
--- NOTE | 2018-01-14 16:06 | PN ---
DATE: 01/14/2018 SUBJECTIVE: The patient denies any chest pain and he is breathing comfortably. PHYSICAL EXAMINATION: VITAL SIGNS: Blood pressure 126/70, heart rate 83, temperature 98.3, respiration 19. HEENT: Normocephalic. CHEST: Diminished breath sounds over the bases. HEART: S1 and S2 regular. EXTREMITIES: Trace edema. LABORATORY DATA: Hemoglobin and hematocrit 10.8 and 33.4, white count and platelet count today are within normal limits. SMA-7, sodium 137, potassium 3.9, chloride 97, CO2 28, glucose 98, BUN 23, creatinine 5. Venous Doppler lower extremity, no sonographic evidence of DVT. 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 ASSESSMENT: 1. Coronary artery disease with history of mid left anterior descending stenting in 04/2016. 2. 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 3. End-stage renal disease on hemodialysis. 4. History of gastrointestinal bleeding and gastric carcinoma. 5. Borderline troponin elevation. The patient's D-dimer was 1626. RECOMMENDATIONS: Continue current IV heparin. Continue IV doxycycline. Continue Lipitor 20 mg once a day. Continue IV Maxipime at 1 g daily. Continue Xopenex inhaler. Obtain chest CT angio to rule out pulmonary embolism. I will review the echocardiographic study performed today. Al Strong MD
--- NOTE | 2018-01-14 17:13 | CARD ---
APPROVED REPORT Date of service: 01/14/2018 EXAM: Two-dimensional and M-mode echocardiogram with Doppler and color Doppler. INDICATION Sepsis 2D DIMENSIONS Left Atrium (2D)4.4 (1.6-4.0cm)IVSd1.1 (0.7-1.1cm) Aortic Root (2D)3.0 (2.0-3.7cm)LVDd4.2 (3.9-5.9cm) LVOT Diameter1.8 (1.8-2.4cm)PWd1.1 (0.7-1.1cm) LVDs2.9 (2.5-4.0cm)FS (%) 30.6 % LVEF (%)58.5 (>50%) M-Mode DIMENSIONS Aortic Cusp Exc.1.40 (1.5-2.0cm) Aortic Valve AoV Peak Aapmzyno853.0cm/sAoV VTI61.7cmAO Peak GR.40mmHg LVOT Peak Pbztbwdv71.2cm/sLVOT VTI13.70cmAO Mean GR.22mmHg NIXON (VMAX)0.73km9DRR (VTI)0.96cb5MD P 1/2 Yubs032en Mitral Valve MV E Jkkwxhec190.0cm/sMV A Hyivkpvy73.3cm/sE/A ratio1.8 TDI Lateral E' Peak V7.60cm/sMedial E' Peak V3.70cm/sE/Lateral E'19.9 E/Medial E'40.8 Pulmonary Valve PV Peak Wyiskzyq982.0cm/sPV Peak Grad.11mmHg Tricuspid Valve TR Peak Nejghrrr403vh/sRAP ZLIARMBO3uaScST Peak Gr.63mmHg HVPW29usWp LEFT VENTRICLE The left ventricle is normal size. There is mild concentric left ventricular hypertrophy. Left ventricle is borderline. Inferior wall hypokinesis Transmitral Doppler flow pattern is Grade II-pseudonormal filling dynamics. RIGHT VENTRICLE The right ventricle is normal size. There is normal right ventricular wall thickness. The right ventricular systolic function is normal. ATRIA The left atrium is mildly dilated. The right atrium is mildly dilated. AORTIC VALVE The aortic valve is moderately to severely calcified. There is mild aortic regurgitation. There is moderate to severe valvular aortic stenosis. MITRAL VALVE The mitral valve is moderately thickened. Mitral regurgitation is mild. TRICUSPID VALVE There is moderate tricuspid regurgitation. There is moderate to severe pulmonary hypertension. PULMONIC VALVE There is mild pulmonic valvular regurgitation. GREAT VESSELS The aortic root is normal in size. The IVC is dilated. <Conclusion> The left ventricle is normal size. There is mild concentric left ventricular hypertrophy. Left ventricle is borderline. Inferior wall hypokinesis Transmitral Doppler flow pattern is Grade II-pseudonormal filling dynamics. The aortic valve is moderately to severely calcified. There is moderate to severe valvular aortic stenosis. There is mild aortic regurgitation. Mitral regurgitation is mild. There is moderate tricuspid regurgitation. There is moderate to severe pulmonary hypertension.
[2018-01-14] MEDS: Cefepime 1gm in NS 100ml 1 GM/100 ML BAG IVPB SCH (17:40)
--- NOTE | 2018-01-14 20:00 | PN ---
DATE: 01/14/2018 SUBJECTIVE: The patient is in bed. PHYSICAL EXAMINATION: VITAL SIGNS: Temperature is 98, blood pressure is 140/80, respiratory rate of 18, heart rate of 83. HEENT: Unremarkable. NECK: Supple. LUNGS: Have decreased breath sounds. HEART: Normal S1, S2. ABDOMINAL: Soft, nontender. LABORATORY EXAMINATION: Reveals a white count of 9.8, hemoglobin of 10, creatinine is 5. The patient had a procalcitonin of 16 in face of creatinine of 5. Influenza is negative. Microbiology reveals the blood cultures are reported to be no growth at 48 hours. Stool C. diff is negative. ASSESSMENT AND PLAN: An 87-year-old male with advanced dementia, history of delirium, chronic renal failure, hemodialysis, coronary artery disease, myocardial infarction, gastroparesis, diabetes, diabetic gastroparesis, gastric ulcer, gastrointestinal bleed, hypertension with this admission is admitted with systemic inflammatory response syndrome with negative blood cultures. White count is normalized down to 9.8. Stool Clostridium difficile is negative. The patient had an ultrasound of lower extremity which showed no evidence of a deep vein thrombosis. 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 Dr. Strong's note is reviewed regarding coronary artery disease with history of mild left anterior descending and stenting on IV heparin. Chest x-ray is negative. Source of the systemic inflammatory response syndrome, white count is not entirely clear. The patient appears to be improving. Currently on Flagyl, doxycycline, cefepime, intermittent vancomycin. We will complete a short course of antibiotics. Magdy Diego MD
[2018-01-14] MEDS ORDERED: Barium Sulfate Susp 2.1% w/v, 2.0% w/w 450 mL Bottle PO ONE (20:38)
--- NOTE | 2018-01-14 21:18 | PN ---
DATE: 01/14/2018 SUBJECTIVE: The patient is seen on his way to the echo lab. The patient is seen lying in the bed. Overnight nurse's notes were reviewed. The patient was found to be alert, awake, oriented x2. The patient continued on the heparin drip as per recommended by the Cardiology. PHYSICAL EXAMINATION: VITAL SIGNS: T-max in the last 24 hours is 99.4. Telemetry shows normal sinus rhythm, heart rate 91, 83, 82, blood pressure 140/88, 126/70, 130/83, respiration 19, O2 sat 97% on room air. GENERAL: The patient was seen lying in the bed. HEENT: Head: Normocephalic, atraumatic. HEENT examination shows pinkish pale conjunctivae. Anicteric sclerae. No oropharyngeal lesion. NECK: No neck rigidity. Soft carotid bruit. CHEST: Kyphosis. LUNGS: Shows occasional rhonchi in upper lung chaney. CARDIOVASCULAR: S1 and S2. Regular rhythm. Positive systolic murmur at left sternal border, right second intercostal space, left second intercostal space left sternal border. ABDOMEN: Soft. Positive bowel sounds. GENITALIA: Male. RECTAL: Deferred. EXTREMITIES: Positive left upper extremity AV fistula, positive thrill. Lower extremity shows no pitting edema, no calf tenderness, no Homans' sign. NEUROLOGICAL: The patient is alert, awake, oriented to person and place. Disoriented to year, date, month and time. MUSCULOSKELETAL: Shows a body mass index of 23. DIAGNOSTICS: On 01/14/2018, WBC count is down to 9.8 from 15.4, hemoglobin and hematocrit is 10.8 and 33.4, platelet 159. Granulocytes 77% segs. PTT today is 50.3, D-dimer which was ordered by the Cardiology is 1626, fingerstick blood sugar 163, 154, 94, 133, 116. Sodium 137, potassium 3.9, chloride 97, CO2 28, anion gap 15, BUN 23, creatinine 5, GFR 11, glucose 98, hemoglobin A1c 5.8. Lactic acid 2.2 yesterday. LFTs are normal. Peak troponin is 1. Procalcitonin level is almost 17. Influenza A and B serologies are negative. Blood cultures, preliminary results negative. C. diff antigen and toxin negative. 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 IMPRESSION: 1. Systemic inflammatory response syndrome. 2. High-grade fever. 3. Tachycardia. 4. Leukocytosis with granulocytosis. 5. End-stage renal disease, hemodialysis dependent three times a week. 6. Questionable acute coronary syndrome and wyi-DO-gswadhyuk myocardial infarction with elevated troponin. 7. Advanced dementia. 8. Leukocytosis with granulocytosis. 9. Elevated D-dimer of greater than 1600, etiology undetermined. 10. Increased anion gap metabolic acidosis and lactic acidosis. 11. Well-controlled diabetes mellitus with hemoglobin A1c of 5.8. 12. Hyperprocalcitoninemia. 13. 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 14. Left ventricular ejection fraction of 58%. 15. Concentric left ventricular hypertrophy. 16. Inferior wall hypokinesis with grade 2 pseudo normal filling dynamics. 17. Pulmonary hypertension with right ventricular systolic pressure of 66 mmHg. 18. Ndzxujiz-dp-afeukc valvular aortic stenosis with fjvfobvs-dj-lmqumqxl calcified aortic valve. 19. Moderately thickened mitral valve. 20. Mild mitral regurgitation, mild aortic regurgitation. 21. Moderate tricuspid regurgitation with moderate to severe pulmonary hypertension with right ventricular systolic pressure of 66 mmHg. 22. Bziofwhv-br-clifij valvular aortic stenosis. 23. 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 24. Deconditioning. 25. Gait dysfunction. 26. Systemic inflammatory response syndrome. 27. Cardiomegaly. 28. Bilateral pulmonary linear scarring. 29. Diabetic gastroparesis. 30. Advanced dementia. 31. History of coronary artery disease with coronary angioplasty. 32. Hyperlipidemia. 33. Constipation. 1. Questionable possible systemic inflammatory response syndrome with high-grade fever and tachycardia. 2. Leukocytosis with granulocytosis. 3. Normocytic anemia and anemia of chronic disease. 4. Questionable acute non-ST elevation myocardial infarction with elevated troponin. 5. Increased anion gap metabolic and lactic acidosis. 6. End-stage renal disease, hemodialysis dependent. 7. Insulin-requiring diabetes mellitus with hyperglycemia. 8. 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 9. Mild normocytic anemia. 10. History of severe noncompliance. 11. History of dementia. 12. Bilateral midlung pulmonary scarring. 13. Cardiomegaly. 14. Deconditioning. 1. Questionable systemic inflammatory response syndrome versus sepsis. 2. High-grade fever. 3. Hypertension. 4. Leukocytosis with granulocytosis. 5. Mild normocytic anemia. 6. Increased anion gap, metabolic acidosis, and lactic acidosis. 7. History of end-stage renal disease, hemodialysis dependent. 8. History of insulin-requiring diabetes mellitus, off all medications. 9. History of severe noncompliance. 10. History of advanced dementia. 11. History of gait dysfunction. PLAN AT THIS TIME: The patient has been ordered repeat labs. CURRENT CONSULTATION: Infectious Disease, Nephrology, Cardiology. CURRENT MEDICATIONS: Colace 100 mg three times a day, doxycycline 100 mg IV every 12, Ecotrin 81 mg daily, Flagyl 500 IV every [address] Diego and heparin drip as per protocol, Humalog medium dose sliding scale coverage before meals and at bedtime, Lipitor 40 mg daily, cefepime 1 g IV every 24, MiraLax 17 g twice a day, Protonix 40 mg daily, Tessalon Perles 200 three times a day, Tylenol p.r.n. p.o. suppository every 6 hours, Xopenex nebulizer 0.63 mg every 6 hours and Zofran 4 mg IV every 4 hours p.r.n. As recommended by Infectious Disease, CAT scan of the abdomen and pelvis has been ordered. The patient has been ordered a CT angio by Cardiology, Dr. Strong. Chest PT, incentive spirometry, oxygen 2 liters nasal cannula ordered. The patient has been ordered SAMAN stockings, SCDs, out of bed, physical therapy, occupational therapy all ordered. The patient seen by physical therapist. Physical Therapy recommendation was Transitional Care Unit, which has already been ordered. At present, the patient is to be continued on above with pending CT angio of the chest and the CAT scan of the abdomen and pelvis. Dictated and electronically signed, not read. Zeyad Nazario MD MTDD
[2018-01-15] MEDS: Levalbuterol 0.63 MG/3 ML Inhal Soln UD IH SCH ×4 (01:26→20:08)
[2018-01-15] MEDS: Heparin25000 units/250ml 1/2NS 25,000 UNITS/250 ML BAG IV PRN (02:20)
[2018-01-15] MEDS: Pantoprazole 40 mg EC Tab PO SCH ×2 (05:00→07:26)
[2018-01-15] MEDS: metroNIDAZOLE IV 500 mg/100 ml 500 MG/100 ML BAG IVPB SCH (05:00)
[2018-01-15] MEDS: Insulin Lispro (humaLOG) MEDIUM Coverage SC SCH ×4 (08:56→21:01)
[2018-01-15] MEDS: POLYETHYLENE GLYCOL 3350 17 GM/Dose PACKET PO SCH ×2 (10:15→17:46)
--- NOTE | 2018-01-15 13:50 | CT ---
Date of service: 01/15/2018 PROCEDURE: CT Abdomen and Pelvis with contrast HISTORY: FEVER/SIRS COMPARISON: 11/18/2016. CT abdomen and pelvis TECHNIQUE: Oral contrast only. Radiation dose: Total exam DLP = 795.66 mGy-cm. This CT exam was performed using one or more of the following dose reduction techniques: Automated exposure control, adjustment of the mA and/or kV according to patient size, and/or use of iterative reconstruction technique. FINDINGS: LOWER THORAX: Cardiomegaly. No evidence of acute, significant cardiovascular disease. Trace pleural effusions. LIVER: Unremarkable. No gross lesion or ductal dilatation. GALLBLADDER AND BILE DUCTS: Cholelithiasis without CT evidence of acute cholecystitis. Similar findings identified previously. PANCREAS: Unremarkable. No gross lesion or ductal dilatation. SPLEEN: Unremarkable. ADRENALS: Unremarkable. No mass. KIDNEYS AND URETERS: Unremarkable. No hydronephrosis. No solid mass. Incidental finding(s): Multiple bilateral renal cysts again identified. These were also reported on a prior ultrasound performed 03/20/2013. VASCULATURE: Unremarkable. No aortic aneurysm. Atherosclerotic calcification and mural plaque present. Findings are seen throughout the aorta and iliac arteries. BOWEL: Colitis, primarily affecting the ascending and to lesser extent transverse colon. Portions of the descending colon are also affected. Fecal impaction, proximal colonic distension. Nondilated loops of small bowel identified right inguinal hernia. APPENDIX: No abnormalities to suggest acute appendicitis. No right lower quadrant inflammatory processes identified. A normal appendix with contrast identified. PERITONEUM: Unremarkable. No free fluid. No free air. LYMPH NODES: Unremarkable. No enlarged lymph nodes. BLADDER: Diffuse bladder wall thickening. Although the bladder is decompressed cystitis should be considered. REPRODUCTIVE: Enlarged prostate BONES: No acute fracture. OTHER FINDINGS: None. IMPRESSION: Colitis primarily affecting ascending colon and transverse colon. Skip areas of the descending colon are affected. Fecal impaction/constipation. Bladder wall thickening suspicious for cystitis. Cholelithiasis without CT evidence of acute cholecystitis.
--- NOTE | 2018-01-15 14:50 | PN ---
DATE: 01/14/2018 SUBJECTIVE: The patient is seen sitting in bed. He is awake, he is alert. He is trying to eat his lunch. He denies any chest tightness. He denies any fevers. PHYSICAL EXAMINATION: GENERAL: Elderly male sitting in bed. VITAL SIGNS: Blood pressure 140/88, heart rate 80, respiratory rate 20, and temperature 98.7. HEENT: Normocephalic, atraumatic, positive pallor. NECK: Supple, no JVD. LUNGS: Bilateral equal air entry, bilateral equal expansion. EXTREMITIES: No lower extremity edema. LABORATORY DATA: WBC 9.8, hemoglobin 10.8, hematocrit 33, and platelets 159. Sodium 137, potassium 3.9, chloride 97, pO2 of 28. BUN 23, creatinine 5. Glucose 98. Calcium 8.6, phosphorus 3.5, magnesium 1.8, albumin 3.5. MEDICATIONS: Colace, Ecotrin, Flagyl 500 every 8 hours, Lipitor, Maxipime, MiraLax, Protonix, Tylenol, Xopenex, doxycycline 100 every 12 hours, and heparin IV. ASSESSMENT: 1. Fever, leukocytosis, nausea, vomiting. 2. Elevated troponins. 3. Nji-nfapuud-pxcgmyqnw diabetes mellitus. 4. Hypertension. 5. End-stage renal disease. 6. History of coronary artery disease. PLAN: 1. Continue Flagyl, doxycycline, cefepime, and vancomycin as per ID recommendations. 2. Continue heparin drip. 3. The patient had stable dialysis yesterday. 4. Push p.o. intake. Brinda Ibarra MD
--- NOTE | 2018-01-15 15:08 | PN ---
DATE: 01/15/2018 FOLLOWUP SUBJECTIVE: The patient refuses his intravenous heparin as well as any blood testing today and IV heparin was discontinued. The patient denies any chest pain. PHYSICAL EXAMINATION: VITAL SIGNS: Blood pressure 146/83, heart rate 79, temperature 98.3, respirations 20. HEENT: Pale conjunctivae. CHEST: Diminished breath sounds over the bases. HEART: S1 and S2 regular. EXTREMITIES: No edema. LABORATORY DATA: No labs for today as the patient refused. ASSESSMENT: 1. Coronary artery disease with history of mid left anterior descending stenting in 04/2016. 2. End-stage renal disease, on hemodialysis. 3. History of gastrointestinal bleeding in the past and history of gastric carcinoma. 4. End-stage renal disease, on hemodialysis. 5. 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 RECOMMENDATIONS: Continue subcutaneous heparin 5000 units every 12 hours if the patient agrees for it. Continue IV Maxipime at 1 g daily. I will follow CT scan performed today and the patient will undergo, if he agrees, chest CT angio tomorrow prior to his hemodialysis. Al Strong MD
[2018-01-15] MEDS: Cefepime 1gm in NS 100ml 1 GM/100 ML BAG IVPB SCH (17:47)
--- NOTE | 2018-01-15 17:48 | PN ---
DATE: 01/15/2018 SUBJECTIVE: The patient seen in bed, in no acute distress, nontoxic. PHYSICAL EXAMINATION: VITAL SIGNS: Temperature is 98, blood pressure is 140/80, and respiratory rate of 20. HEENT: Unremarkable. NECK: Supple. LUNGS: Decreased breath sounds. HEART: Normal S1, S2. ABDOMEN: Soft. LABORATORY EXAMINATION: Reveals a white count of 9.8, hemoglobin of 10, and platelets of 159. Chemistries are noted. BUN of 23, creatinine of 5. Procalcitonin is 16. Serology is negative. Microbiology reveals the blood cultures are negative. C. diff antigen and toxin are negative. ASSESSMENT AND PLAN: A 87-year-old male with advanced dementia, history of delirium, chronic renal failure on hemodialysis, coronary artery disease, myocardial infarction, gastroparesis, diabetes, diabetic gastroparesis, gastric ulcer, gastrointestinal bleed, hypertension, admitted with systemic inflammatory response syndrome with normal white count. Clostridium difficile negative. Blood cultures negative. Chest x-ray is negative. On cefepime and doxycycline. We will change the doxycycline to p.o. The patient is also on Flagyl. Clostridium difficile antigen and toxin are negative. Day #3 of antibiotics with p.o. doxycycline, p.o. Flagyl, and cefepime, today is day #3 of 4 days. The patient did have a temperature of 101 on admission and a white count of 15,400 on admission, which have now resolved. Cefepime is active, day #3 of 4 to 7 days. Magdy Diego MD
[2018-01-15] MEDS ORDERED: DiphenhydrAMINE 50 mg/ml Inj IM ONE (18:02)
[2018-01-16] MEDS: Levalbuterol 0.63 MG/3 ML Inhal Soln UD IH SCH ×4 (01:17→19:54)
--- NOTE | 2018-01-16 02:23 | PN ---
DATE: 01/15/2018 SUBJECTIVE: The patient was seen lying in the bed in room 271, bed 1. The patient is alert, awake, responsive, oriented to person and place. Disoriented to year, date, month. The patient refused lab work this morning. The patient also refused enema. The patient refused lab work. PHYSICAL EXAMINATION: VITAL SIGNS: T-max 98.5. Telemetry shows sinus rhythm, heart rate 80, 88, 91, 87, blood pressure is 137/53, 146/83, 129/84, 140/88, respirations 20, O2 sat is 99-94%. HEENT: The patient's head examination is normocephalic, atraumatic. HEENT examination shows pinkish pale conjunctivae. Anicteric sclerae. No oropharyngeal lesion. No neck rigidity. Soft cartoid bruit. CHEST: Kyphosis. LUNGS: Shows no rales, crackles or wheezing. CARDIOVASCULAR: S1, S2. Regular rhythm. Positive systolic murmur in left sternal border, right second intercostal space, left second intercostal space. ABDOMEN: Soft, positive bowel sounds. GENITALIA: Male. RECTAL: Deferred. EXTREMITY: Shows positive left upper extremity AV fistula, positive thrill. Lower extremity shows no pitting edema, no calf tenderness, no Homans' sign. NEUROLOGICAL: The patient is alert, awake, oriented, responsive, oriented to person and place. Disoriented to year, date, month, time. DIAGNOSTIC DATA: The patient refused lab data. The patient refused fingerstick blood sugar testing. Blood cultures, C. Diff cultures negative. CAT scan of the abdomen and pelvis noted which shows cholelithiasis. Bilateral renal cyst, ascending colon, transverse colon, descending colon colitis with fecal impaction and colonic distention, right inguinal hernia with diffuse urinary bladder thickening, questionable cystitis and prostatomegaly. IMPRESSION AND PLAN 1. Questionable behavioral disorder with noncompliance and refusal with lab data and refusing medications and refusing treatment. 2. History of dementia with possible acute exacerbation. 3. Cholelithiasis. 4. Bilateral renal cyst. 5. Ascending, transverse colon, descending colon colitis. 6. Fecal impaction. 7. Colonic distention. 8. Right inguinal hernia. 9. Questionable cystitis with diffuse urinary bladder thickening. 10. Prostatomegaly. 11. Hypertension. 12. Systemic inflammatory response syndrome with leukocytosis, granulocytosis. 13. Normocytic anemia. 14. End-stage renal disease, hemodialysis dependent. 15. Increased anion gap metabolic acidosis and lactic acidosis. 16. History of diabetes mellitus with hemoglobin A1c of 5.8, well controlled. 17. Questionable and possible non-ST elevation myocardial infarction with elevated troponin. 18. Hyperprocalcitoninemia. 19. Deconditioning. 20. Gait dysfunction. 21. History of coronary artery disease. 22. Advanced dementia with acute exacerbation and delirium. 23. History of coronary artery disease, non-ST elevation myocardial infarction. 24. History of diabetic gastroparesis. 1. Systemic inflammatory response syndrome. 2. High-grade fever. 3. Tachycardia. 4. Leukocytosis with granulocytosis. 5. End-stage renal disease, hemodialysis dependent three times a week. 6. Questionable acute coronary syndrome and jmx-QH-sdkivativ myocardial infarction with elevated troponin. 7. Advanced dementia. 8. Leukocytosis with granulocytosis. 9. Elevated D-dimer of greater than 1600, etiology undetermined. 10. Increased anion gap metabolic acidosis and lactic acidosis. 11. Well-controlled diabetes mellitus with hemoglobin A1c of 5.8. 12. Hyperprocalcitoninemia. 13. 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 14. Left ventricular ejection fraction of 58%. 15. Concentric left ventricular hypertrophy. 16. Inferior wall hypokinesis with grade 2 pseudo normal filling dynamics. 17. Pulmonary hypertension with right ventricular systolic pressure of 66 mmHg. 18. Ezsohgyk-ho-wfqrbv valvular aortic stenosis with btzjyljx-up-cruxuqbh calcified aortic valve. 19. Moderately thickened mitral valve. 20. Mild mitral regurgitation, mild aortic regurgitation. 21. Moderate tricuspid regurgitation with moderate to severe pulmonary hypertension with right ventricular systolic pressure of 66 mmHg. 22. Hbvfbeea-yc-qvhdox valvular aortic stenosis. 23. 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 24. Deconditioning. 25. Gait dysfunction. 26. Systemic inflammatory response syndrome. 27. Cardiomegaly. 28. Bilateral pulmonary linear scarring. 29. Diabetic gastroparesis. 30. Advanced dementia. 31. History of coronary artery disease with coronary angioplasty. 32. Hyperlipidemia. 33. Constipation. 1. Questionable possible systemic inflammatory response syndrome with high-grade fever and tachycardia. 2. Leukocytosis with granulocytosis. 3. Normocytic anemia and anemia of chronic disease. 4. Questionable acute non-ST elevation myocardial infarction with elevated troponin. 5. Increased anion gap metabolic and lactic acidosis. 6. End-stage renal disease, hemodialysis dependent. 7. Insulin-requiring diabetes mellitus with hyperglycemia. 8. 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 9. Mild normocytic anemia. 10. History of severe noncompliance. 11. History of dementia. 12. Bilateral midlung pulmonary scarring. 13. Cardiomegaly. 14. Deconditioning. 1. Questionable systemic inflammatory response syndrome versus sepsis. 2. High-grade fever. 3. Hypertension. 4. Leukocytosis with granulocytosis. 5. Mild normocytic anemia. 6. Increased anion gap, metabolic acidosis, and lactic acidosis. 7. History of end-stage renal disease, hemodialysis dependent. 8. History of insulin-requiring diabetes mellitus, off all medications. 9. History of severe noncompliance. 10. History of advanced dementia. 11. History of gait dysfunction. PLAN: At this time, the patient refused the Fleet enema, refused IV heparin. Current consultation, Gastroenterology for evaluation of colitis, Infectious Disease, Nephrology and Cardiology. TCU evaluation ordered. The patient was started on Aricept 5 mg at bedtime. The patient was given Benadryl 25 IM once, Colace 100 mg three times a day, doxycycline changed to p.o. 100 mg every 12 hours, Ecotrin 81 mg daily, Flagyl 500 p.o. every 8 hours, heparin 5000 units subcu every 12 hours, Humalog medium dose sliding scale coverage before meals and at bedtime, Lipitor 40 mg daily, cefepime 1 g IV every 24 hours, MiraLax 17 g twice a day, Protonix 40 mg daily, Tessalon Perles 200 three times a day, Tylenol 650 p.o. suppository every 6 hours p.r.n., Xopenex nebulizer every 6 hours qpkfe-ewf-nirtn, Zofran 4 mg IV every 4 hours p[address]r.n. The patient's CT chest angiogram is still pending, ordered by Cardiology chest PT, incentive spirometry, oxygen 2 liters nasal cannula, SAMAN stockings, out of bed to chair, head of the bed at 30 degrees. Fingerstick blood sugar, occupational therapy, physical therapy all ordered. He is still awaiting. The patient will be requested to be evaluated by Neurology and Psychiatry and Podiatry. The patient will be continued on above therapeutic intervention. Dictated and electronically signed, not read. Zeyad Nazario MD [facility]
[2018-01-16] MEDS ORDERED: Iohexol 350 MG/100 ML VIAL ONE (07:40)
[2018-01-16] MEDS: Insulin Lispro (humaLOG) MEDIUM Coverage SC SCH ×4 (07:51→21:55)
--- NOTE | 2018-01-16 09:20 | CP.PCM.PN ---
Objective - Vital Signs/Intake and Output Vital Signs (last 24 hours): Temp Pulse Resp BP Pulse Ox 98.5 F 87 20 137/53 L 94 L 01/15/18 12:00 01/16/18 02:00 01/15/18 12:00 01/15/18 12:00 01/15/18 06:00 Intake and Output: 01/16/18 01/16/18 06:59 18:59 Intake Total 0 Balance 0 - Medications Medications: Current Medications Acetaminophen (Tylenol 325mg Tab) 650 mg PO Q6 PRN PRN Reason: TEMP>=99.5F Acetaminophen (Tylenol 650 Mg Supp) 650 mg RC Q6H PRN PRN Reason: TEMP>=99.5F Aspirin (Ecotrin) 81 mg PO DAILY [facility] Last Admin: 01/15/18 10:15 Dose: Not Given Atorvastatin Calcium (Lipitor) 40 mg PO DIN [facility] Last Admin: 01/15/18 17:45 Dose: Not Given Benzonatate (Tessalon Perles) 200 mg PO TID [facility] Last Admin: 01/15/18 17:46 Dose: Not Given Dextrose (Dextrose 50% Inj) 0 ml IV STAT PRN; Protocol PRN Reason: Hypoglycemia Protocol Docusate Sodium (Colace) 100 mg PO TID [facility] Last Admin: 01/15/18 17:45 Dose: Not Given Donepezil HCl (Aricept) 5 mg PO HS [facility] Last Admin: 01/16/18 05:21 Dose: Not Given Doxycycline Hyclate (Doryx) 100 mg PO Q12 [facility]; Protocol Stop: 01/20/18 10:01 Last Admin: 01/15/18 21:13 Dose: Not Given Heparin Sodium (Porcine) (Heparin) 5,000 units SC Q12 [facility]; Protocol Last Admin: 01/15/18 21:13 Dose: Not Given Dextrose (Dextrose 5% In Water 1000 Ml) 1,000 mls @ 0 mls/hr IV .Q0M PRN; Protocol PRN Reason: Hypoglycemia Protocol Cefepime HCl (Maxipime 1gm) 1 gm in 100 mls @ 100 mls/hr IVPB Q24H [facility]; Protocol Stop: 01/22/18 18:01 Last Admin: 01/15/18 17:47 Dose: 100 mls/hr Insulin Human Lispro (Humalog Med) 0 units SC ACHS [facility]; Protocol Last Admin: 10/22/18 07:51 Dose: Not Given Levalbuterol HCl (Xopenex) 0.63 mg IH [id number] [facility] Last Admin: 01/16/18 07:59 Dose: Not Given Lorazepam (Ativan) 1 mg IM Q8 PRN; Protocol PRN Reason: Anxiety Metronidazole (Flagyl) 500 mg PO Q8 [facility]; Protocol Stop: 01/20/18 14:01 Last Admin: 01/15/18 21:13 Dose: Not Given Ondansetron HCl (Zofran Inj) 4 mg IVP Q4H PRN PRN Reason: Nausea/Vomiting Pantoprazole Sodium (Protonix Ec Tab) 40 mg PO 0600 [facility] Last Admin: 01/15/18 07:26 Dose: Not Given Polyethylene Glycol (Miralax) 17 gm PO BID [facility] Last Admin: 01/15/18 17:46 Dose: Not Given - Labs Labs: 01/14/18 07:00 01/14/18 07:00 PT 13.4 SECONDS (9.4-12.5) H 01/12/18 18:30 INR 1.17 01/12/18 18:30 APTT 39.7 Seconds (25.1-36.5) H 01/14/18 22:23
[2018-01-16] MEDS: POLYETHYLENE GLYCOL 3350 17 GM/Dose PACKET PO SCH ×2 (10:02→17:28)
[2018-01-16] MEDS ORDERED: Bacitracin 500 Units/gm Oint Foilpak UD ONE (11:07)
[2018-01-16 12:44] LABS: BASO # 0.01 K/mm3 (0.0-2.0); BASO % 0.1 % (0.0-3.0); GRAN # 6.3 (1.4-6.5); GRAN % 73.8 % (50.0-68.0); HEMOGLOBIN 11.3 g/dL (14.0-18.0); LYMPH # 1.2 (1.2-3.4); MEAN CELL VOLUME 91.1 fl (80.0-105.0); MEAN CORPUSCULAR HEMOGLOBIN 30.4 pg (25.0-35.0); MEAN CORPUSCULAR HGB CONC 33.3 g/dl (31.0-37.0); MEAN PLATELET VOLUME 11.3 fl (7.0-11.0); MONO % 12.1 % (1.0-6.0); RBC 3.72 10^6/uL (3.5-6.1); RED CELL DISTRIBUTION WIDTH 17.2 % (11.5-14.5); WHITE BLOOD COUNT 8.5 10^3/ul (4.5-11.0)
[2018-01-16 12:52] LABS: ALB/GLOB RATIO 0.9 (1.1-1.8); ALBUMIN 3.8 g/dL (3.0-4.8); CALCIUM 9.1 mg/dL (8.4-10.5)
[2018-01-16 13:06] LABS: FREE T4 2.08 ng/dL (0.78-2.19)
--- NOTE | 2018-01-16 14:18 | CON ---
DATE: 01/16/2018 HISTORY OF PRESENT ILLNESS: This is an 87-year-old man with history of noninsulin-dependent diabetes mellitus; end-stage renal disease, on hemodialysis; hypertension; coronary artery disease; status post PTCA and stent; history of CVA; dementia; secondary hyperparathyroidism; who was brought to the hospital for generalized weakness, not feeling well, fever and chills. Found to have temperature of 101 and elevated leukocytosis as well as mild pulmonary congestion. Also had a CT abdomen, which shows some evidence of colitis, which he is on antibiotics. I was consulted for his combative and delirious behavior. He is currently getting hemodialysis. He is on cefepime and metronidazole for his underlying sepsis. PAST MEDICAL HISTORY: As above. SOCIAL HISTORY: No illicit drug use, smoking or EtOH abuse. ALLERGIES: NO KNOWN DRUG ALLERGIES. MEDICATIONS: Reviewed by nurses' reconciliation sheet. REVIEW OF SYSTEMS: Fourteen-point review of systems is negative except as per the HPI. FAMILY HISTORY: Noncontributory. LABORATORY: Sodium is 137, potassium 4.3, chloride 99, carbon dioxide 19, BUN of 55, creatinine 8.8, random glucose of 135. PHYSICAL EXAMINATION: VITAL SIGNS: Temperature of the patient is 97.3, pulse rate of 90, blood pressure 140/98. GENERAL: The patient is sitting up in bed, going through hemodialysis, resting, mildly lethargic. HEENT: Atraumatic, normocephalic. PERRLA. Extraocular muscles intact. NECK: Supple. No JVD, no adenopathy noted. LUNGS: Clear to auscultation. No adventitious sounds. HEART: S1, S2. Normal rate and rhythm. No murmurs, rubs or gallops. ABDOMEN: Soft, nontender and nondistended. Bowel sounds are present. EXTREMITIES: No clubbing. No cyanosis. Peripheral pulses 2+ felt bilaterally. NEUROLOGIC: The patient is alert and oriented to person and place, not much to month or year. Recall after 5 minutes is 0/3. Poor attention span. Slow thought process. Poor judgment. Cranial nerves II through XII intact. Motor exam: Slightly increased tone throughout. Moves all extremities equally. Sensory exam: Decreased light touch and pinprick up to the calves bilaterally. Decreased vibration of the toes. DTRs are 2+ throughout and 1 at both knees and absent at the ankles. Toes are downgoing bilaterally. Coordination: Gait is deferred for now since the patient refused. ASSESSMENT AND PLAN: This is an 87-year-old man with history of dementia; end-stage renal disease, on hemodialysis; coronary artery disease, status post percutaneous transluminal coronary angioplasty; history of diabetes, diabetic gastroparesis; history of hypertension. Admitted for generalized weakness, leukocytosis, feverish and found to have some underlying Crohn's colitis, on antibiotics. I was called for change in the mental status in terms of being agitated and combative. It is more of underlying delirium superimposed on underlying cognitive impairment with a toxic metabolic encephalopathy component. At this time, recommend, 1. Continue with antibiotics for underlying sepsis. 2. Monitor electrolytes and correct accordingly. 3. Delirium precautions. 4. Frequent reorientation throughout the day. 5. I will recommend thiamine 100 mg p.o. daily for neuronal activity. 6. If continued to be combative, could consider Seroquel 25 mg p.o. at bedtime and also get a CAT scan of the head. Once again, thank you for this consult. Laci Garcia MD
--- NOTE | 2018-01-16 14:54 | CP.PCM.CON ---
History of Present Illness - History of Present Illness History of Present Illness: 87 year old male patient with PMHx of ESRD (on HD), coronary artery disease, Cerebrovascular accident, Gastric cancer, Mitral valve prolapse, DM was seen at bedside this morning after request for Podiatry consultation. Patient is nonver bal and sleeping. Unable to get history due to patient not waking up. Bilateral lower extremities exam Past Patient History - Infectious Disease Hx of Infectious Diseases: None - Tetanus Immunizations Tetanus Immunization: Unknown - Past Medical History & Family History Past Medical History?: Yes - Past Social History Smoking Status: Unknown If Ever Smoked - CARDIAC Hx Cardiac Disorders: Yes (CAD with stenting, mitral valve prolapse,) Hx Hypertension: Yes - PULMONARY Hx Respiratory Disorders: Yes (H/O OF SMOKING CIGARETTES.QUIT) - NEUROLOGICAL HX Cerebrovascular Accident: Yes - HEENT Hx HEENT Problems: Yes (WEARS RX GLASSES) Hx Cataracts: Yes (b/l) Hx Glaucoma: Yes Other/Comment: hx of epistaxix - RENAL Hx Renal Failure: Yes (ESRD on henodialysis M/W/F) - ENDOCRINE/METABOLIC Hx Diabetes Mellitus Type 2: Yes - HEMATOLOGICAL/ONCOLOGICAL Hx Blood Disorders: Yes (LOWER GI BLEED) - INTEGUMENTARY Hx Dermatological Problems: No - MUSCULOSKELETAL/RHEUMATOLOGICAL Hx Falls: Yes - GASTROINTESTINAL Hx Gastrointestinal Disorders: Yes (gastric ca,colon polyps,constipation,gastroparesis,gi bleed) - GENITOURINARY/GYNECOLOGICAL Hx Genitourinary Disorders: Yes (esrd on hd) Hx Reproductive Disorders: Yes (BPH) - PSYCHIATRIC Hx Psychophysiologic Disorder: No Hx Substance Use: No Other/Comment: dimentia - SURGICAL HISTORY Hx Cholecystectomy: Yes Hx Coronary Stent: Yes (x1) Other/Comment: AV shunt placement.left forearm - ANESTHESIA Hx Anesthesia: Yes Hx Anesthesia Reactions: No Hx Malignant Hyperthermia: No Meds Allergies/Adverse Reactions: Allergies Allergy/AdvReac Type Severity Reaction Status Date / Time No Known Allergies Allergy Verified 04/30/17 18:39 - Medications Medications: Current Medications Acetaminophen (Tylenol 325mg Tab) 650 mg PO Q6 PRN PRN Reason: TEMP>=99.5F Acetaminophen (Tylenol 650 Mg Supp) 650 mg RC Q6H PRN PRN Reason: TEMP>=99.5F Aspirin (Ecotrin) 81 mg PO DAILY [facility] Last Admin: 01/16/18 10:02 Dose: 81 mg Atorvastatin Calcium (Lipitor) 40 mg PO DIN [facility] Last Admin: 01/15/18 17:45 Dose: Not Given Benzonatate (Tessalon Perles) 200 mg PO TID [facility] Last Admin: 01/16/18 10:02 Dose: 200 mg Dextrose (Dextrose 50% Inj) 0 ml IV STAT PRN; Protocol PRN Reason: Hypoglycemia Protocol Docusate Sodium (Colace) 100 mg PO TID [facility] Last Admin: 01/16/18 10:02 Dose: 100 mg Donepezil HCl (Aricept) 5 mg PO HS [facility] Last Admin: 01/16/18 05:21 Dose: Not Given Doxycycline Hyclate (Doryx) 100 mg PO Q12 [facility]; Protocol Stop: 01/20/18 10:01 Last Admin: 01/16/18 10:02 Dose: 100 mg Heparin Sodium (Porcine) (Heparin) 5,000 units SC Q12 [facility]; Protocol Last Admin: 01/16/18 10:03 Dose: 5,000 units Dextrose (Dextrose 5% In Water 1000 Ml) 1,000 mls @ 0 mls/hr IV .Q0M PRN; Protocol PRN Reason: Hypoglycemia Protocol Cefepime HCl (Maxipime 1gm) 1 gm in 100 mls @ 100 mls/hr IVPB Q24H [facility]; Protocol Stop: 01/22/18 18:01 Last Admin: 01/15/18 17:47 Dose: 100 mls/hr Insulin Human Lispro (Humalog Med) 0 units SC ACHS [facility]; Protocol Last Admin: 01/16/18 07:51 Dose: Not Given Levalbuterol HCl (Xopenex) 0.63 mg IH [id number] [facility] Last Admin: 01/16/18 13:59 Dose: Not Given Lorazepam (Ativan) 1 mg IM Q8 PRN; Protocol PRN Reason: Anxiety Last Admin: 01/16/18 10:01 Dose: 1 mg Metronidazole (Flagyl) 500 mg PO Q8 [facility]; Protocol Stop: 01/20/18 14:01 Last Admin: 01/15/18 21:13 Dose: Not Given Ondansetron HCl (Zofran Inj) 4 mg IVP Q4H PRN PRN Reason: Nausea/Vomiting Pantoprazole Sodium (Protonix Ec Tab) 40 mg PO 0600 [facility] Last Admin: 10/21/18 07:26 Dose: Not Given Polyethylene Glycol (Miralax) 17 gm PO BID [facility] Thiamine HCl (Vitamin B1 Tab) 100 mg PO DAILY [facility] Physical Exam - Constitutional Appears: Well, Non-toxic, No Acute Distress - Extremities Exam Additional comments: DERM: No open wound is noted bilaterally. no clinical signs of infection, nails cut to hygenic length x10, no erythema, no edema noted b/l, no ecchymosis noted to b/l feel and legs VASC: faint palpable DP and Pt noted bilaterally. 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 NEURO: unable to assess ORTHO: unable to assess pain level - Neurological Exam Neurological exam: Alert, Oriented x3 - Psychiatric Exam Psychiatric exam: Normal Affect - Skin Skin Exam: Normal Color Results - Vital Signs Recent Vital Signs: Last Vital Signs Temp 97.3 F L 01/16/18 12:00 Pulse 90 01/16/18 12:00 Resp 18 01/16/18 12:00 BP 140/98 H 01/16/18 12:00 Pulse Ox 94 L 01/15/18 06:00 - Labs Result Diagrams: 01/16/18 12:00 01/16/18 12:00 Labs: Laboratory Results - last 24 hr 01/14/18 01/15/18 01/15/18 21:30 07:40 11:15 WBC RBC Hgb Hct MCV MCH MCHC RDW Plt Count MPV Gran % Lymph % (Auto) [place] % (Auto) Eos % (Auto) Baso % (Auto) Gran # Lymph # (Auto) [place] # (Auto) Eos # (Auto) Baso # (Auto) Sodium Potassium Chloride Carbon Dioxide Anion Gap BUN Creatinine Est GFR ( Amer) Est GFR (Non-Af Amer) POC Glucose (mg/dL) 138 H 114 H 114 H Random Glucose Calcium Phosphorus Magnesium Total Bilirubin AST ALT Alkaline Phosphatase Ammonia Total Protein Albumin Globulin Albumin/Globulin Ratio Free T4 TSH 3rd Generation 01/15/18 01/16/18 01/16/18 20:59 07:41 12:00 WBC 8.5 RBC 3.72 Hgb 11.3 L Hct 33.9 L MCV 91.1 MCH 30.4 MCHC 33.3 RDW 17.2 H Plt Count 183 MPV 11.3 H Gran % 73.8 H Lymph % (Auto) 14.0 L [place] % (Auto) 12.1 H Eos % (Auto) 0.0 L Baso % (Auto) 0.1 Gran # 6.30 Lymph # (Auto) 1.2 [place] # (Auto) 1.0 H Eos # (Auto) 0.0 Baso # (Auto) 0.01 Sodium Potassium Chloride Carbon Dioxide Anion Gap BUN Creatinine Est GFR ( Amer) Est GFR (Non-Af Amer) POC Glucose (mg/dL) 114 H 127 H Random Glucose Calcium Phosphorus Magnesium Total Bilirubin AST ALT Alkaline Phosphatase Ammonia Total Protein Albumin Globulin Albumin/Globulin Ratio Free T4 TSH 3rd Generation 01/16/18 01/16/18 01/16/18 12:00 12:00 12:00 WBC RBC Hgb Hct MCV MCH MCHC RDW Plt Count MPV Gran % Lymph % (Auto) [place] % (Auto) Eos % (Auto) Baso % (Auto) Gran # Lymph # (Auto) [place] # (Auto) Eos # (Auto) Baso # (Auto) Sodium 137 Potassium 4.3 Chloride 99 Carbon Dioxide 19 L Anion Gap 23 H BUN 55 H Creatinine 8.8 H* D Est GFR ( Amer) 7 Est GFR (Non-Af Amer) 6 POC Glucose (mg/dL) Random Glucose 135 H Calcium 9.1 Phosphorus 6.1 H Magnesium 2.0 Total Bilirubin 1.1 AST 133 H D ALT 59 H Alkaline Phosphatase 78 Ammonia 11 Total Protein 7.8 Albumin 3.8 Globulin 4.0 Albumin/Globulin Ratio 0.9 L Free T4 2.08 TSH 3rd Generation 4.25 Assessment & Plan - Assessment and Plan (Free Text) Assessment: 85 year old male patient presents with 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 Chao No dressing to the foot Multipodus boots ordered; to be worn at all times Podiatry will sign off at this time; Please reconsult podiatry if needed Thank you for the consult
--- NOTE | 2018-01-16 15:02 | PN ---
DATE: 01/16/2018 SUBJECTIVE: The patient is seen in the dialysis unit. He is awake, but agitated. He does not appear to be in any kind of distress. PHYSICAL EXAMINATION: VITAL SIGNS: Blood pressure 140/98, heart rate 90, respiratory rate 18, temperature 97.3. HEENT: Normocephalic, atraumatic, positive pallor. NECK: Supple, no JVD. LUNGS: Bilateral equal air entry, bilateral equal expansion, no rales. CARDIAC: S1 and S2, regular rate and rhythm, no murmur, no rub. ABDOMEN: Soft, nondistended, nontender. Bowel sounds present. EXTREMITIES: No lower extremity edema. INTAKE AND OUTPUT: Not charted. LABORATORY DATA: WBC 8, hemoglobin 11, hematocrit 34, platelets 183. Sodium 137, potassium 4.3, chloride 99, CO2 19, BUN 55, creatinine 8.8, glucose 135. Calcium 9.1, phosphorus 6.1, magnesium 2, AST 133, ALT 59, albumin 3.8. Blood cultures no growth. CT of the abdomen and pelvis, colitis primarily affecting the ascending colon and transverse colon, fecal impaction, bladder wall thickening, cholelithiasis without cholecystitis. CURRENT MEDICATIONS: Aricept, Ativan, Colace, aspirin, Ecotrin, Flagyl 500 every 8, Lipitor 40, Maxipime 1 g daily, MiraLax, Tylenol, Xopenex. ASSESSMENT: 1. Fever, leukocytosis, vomiting. 2. (?) colitis. 3. Constipation. 4. Altered mental status, underlying dementia. 5. Noninsulin-dependent diabetes mellitus. 6. Hypertension. 7. End-stage renal disease. 8. Coronary artery disease. PLAN: 1. Stable dialysis. 2. Agree with bowel regimen for constipation. 3. Continue antibiotics as per ID recommendations. 4. GI followup. Brinda Ibarra MD
[2018-01-16 16:34] LABS: HEPATITIS B SURFACE AG Negative (NEGATIVE)
[2018-01-16 16:39] LABS: HEPATITIS B CORE AB NEGATIVE (NEGATIVE)
[2018-01-16 17:04] LABS: FOLATE 6.3 ng/mL
[2018-01-16] MEDS: Cefepime 1gm in NS 100ml 1 GM/100 ML BAG IVPB SCH (17:27)
--- NOTE | 2018-01-16 19:00 | PN ---
DATE: 01/16/2018 SUBJECTIVE: The patient is in bed, in no acute distress, nontoxic. PHYSICAL EXAMINATION: VITAL SIGNS: Temperature is 97, blood pressure is 140/90, respiratory rate of 18. HEENT: Unremarkable. NECK: Supple. LUNGS: Have decreased breath sounds. HEART: Normal S1, S2. ABDOMINAL: Soft. LABORATORY EXAMINATION: Reveals a white count of 8.5, hemoglobin of 11, platelets of 183. BUN of 55, creatinine of 8.8 and RPR is negative. Microbiology reveals the patient's blood cultures are negative. C. diff is negative. Toxin is negative. ASSESSMENT AND PLAN: An 87-year-old male with advanced dementia, history of delirium, chronic renal failure on hemodialysis, coronary artery disease, myocardial infarction, gastroparesis, diabetes, diabetic gastroparesis, gastric ulcer, gastrointestinal bleed, hypertension, admitted with systemic inflammatory response syndrome. Clostridium difficile negative. Cefepime and doxycycline day #4. We would complete 4 to 7 days of antibiotics. Today is day #4 of 4-7 days on p.o. doxycycline and IV cefepime. Magdy Diego MD
--- NOTE | 2018-01-16 19:36 | CON ---
DATE: 01/16/2018 HISTORY OF PRESENT ILLNESS: The patient is an 87-year-old male with past history of end-stage renal disease, on hemodialysis, Tuesday, Tuesday, and Tuesday; coronary artery disease; history of gastrointestinal bleed; CVA; gastric cancer; mitral valve prolapse; diabetes; hypertension; benign prostatic hyperplasia; dementia. The patient was brought in by his for evaluation of vomiting as well as suspected fever. The patient was admitted on the medical site. Psych consult was called for evaluation of delirium. Also, the patient was refusing to take any medications. The patient was seen and examined, discussed with nursing staff on the floor. The patient does not have any agitation or aggression, but majority of the time, the patient is confused. Sometimes, the patient is resistant to take any medications. This entry writer attempted to speak to the patient. The patient seems to be in catatonic stage, stares at this entry writer, answering only yes or no, but was not combative, agitated, or aggressive. The patient knows his name only, but does not remember what was the circumstances of his admission on the medical site, and the patient is not aware that he is in the hospital. VITAL SIGNS: Reviewed. Pulse is 87, blood pressure is 137/53, respiration 20. MEDICATIONS: Reviewed. The patient is on aspirin and Lipitor. The patient refused to take Lipitor. The patient is on cefepime, dextrose, Aricept, doxycycline, and heparin as well as Humalog, , Ativan 1 mg IV IM every 8 hours p.r.n., Flagyl, Zofran, and MiraLAX. The patient was refusing Protonix, Flagyl, also , Ativan. The patient required only once at 10 o'clock at the morning time. LABORATORY DATA: Labs reviewed. The patient had leukocytosis, at the time of admission 15, and now it is trending down. Chemistry reviewed. Serology reviewed. MENTAL STATUS EXAMINATION: As this entry writer described above, the patient stares at this entry writer, knows his name but disoriented in place and time. Affect was flat. The patient was not able to answer if he feels depressed or not. Thought process concrete. Thought content, the patient was not able to answer for the question if he feels depressed or if he has psychotic symptoms. Insight and judgment seems to be impaired. Impulses are unpredictable. IMPRESSION: Delirium and dementia. PLAN: Palliative Care need to be involved. This entry writer is not sure if the patient has power of admitted attorneys, and we need to find out information in order to make sure all treatment options are discussed with the power of admitted attorneys. The patient is not agitated or aggressive, but catatonic for what Ativan might be helpful. The patient has that medication as needed. Considering the fact that the patient presented comfortable and not agitated, this entry writer will not initiate any antipsychotic medications. There are no acute issues. This entry writer will sign off. The patient pose no imminent danger to self or others. Should you have any questions, give me a call back. Nette Wayne MD
--- NOTE | 2018-01-16 21:08 | CON ---
DATE: 01/16/2018 REQUESTING PHYSICIAN: Zeyad Nazario MD REASON FOR CONSULT: I have been asked to see this 87-year-old female with end-stage renal disease, on hemodialysis, who comes to the hospital with fever, chills, generalized malaise. HISTORY OF PRESENT ILLNESS: The patient apparently had some vomiting at home. He had several large bowel movements at home. In the emergency room, the patient was found to have a fever to 101, with a leukocytosis of 15,000. The patient was admitted for sepsis. A CT scan of the abdomen and pelvis performed in the hospital revealed nonspecific mural thickening of the ascending colon, transverse colon, and skip areas in the descending colon. The patient denies any diarrhea or rectal bleeding. He does have a history of dementia. He has had multiple episodes of lower GI bleeding in the past, presumed secondary to diverticular disease. He last had a colonoscopy in 04/2013 which revealed diverticulosis and a benign transverse colon polyp. The patient is currently confused and according to nurses, he has been combative. Again, there is no history of diarrhea. An addendum to the report on a CAT scan is that he appears to have a fecal impaction with increased stool in the rectum with proximal dilatation of the colon. PAST MEDICAL HISTORY: Again is notable for end-stage renal disease, on hemodialysis; coronary artery disease, status post angioplasty and stent; CVA; dementia; hypertension; type 2 diabetes mellitus. SOCIAL HISTORY: He denies cigarette smoking or alcohol use. FAMILY HISTORY: Noncontributory. REVIEW OF SYSTEMS: The 14-point review of systems is notable for fever, generalized malaise, and vomiting. PHYSICAL EXAMINATION: GENERAL: Elderly male, somewhat confused, in no acute distress. VITAL SIGNS: Reveal temperature of 98.5, blood pressure 137/53, heart rate of 90. HEENT: Reveal sclerae to be white. Conjunctivae pink. NECK: Supple. CHEST: Reveal lungs to be clear. HEART: Exam reveals a regular rate and rhythm. ABDOMEN: Soft, nontender. No mass. EXTREMITIES: Show no edema. He does have an AV shunt in his left arm. LABORATORY DATA: Reveal white blood cell count 9.8, down from 15.4 on 01/12/2018, hemoglobin 10.8, platelet count 159,000. Chemistries reveal BUN 23, creatinine of 5 on 01/14/2018, with AST, ALT, alk phos all normal. IMPRESSION: An 87-year-old male admitted to the hospital with possible sepsis; history of end-stage renal disease, on hemodialysis, with fecal impaction on CAT scan, no report of diarrhea, but did have an episode of vomiting with nonspecific mural thickening of the ascending colon, transverse colon, and descending colon. This may represent an acute self-limited colitis, possibly from a gastroenteritis. There is no evidence of intestinal obstruction. He does have fecal impaction. He did have a colonoscopy back in 04/2013, which showed diverticulosis and a benign transverse colon polyp. RECOMMENDATIONS: 1. We will check stool for C. diff. 2. We will start MiraLAX 17 g b.i.d. 3. Advance diet as tolerated. 4. No plans for colonoscopy in this 87-year-old male with multiple comorbidities. Alexi Hitchcock MD
--- NOTE | 2018-01-16 21:08 | PN ---
DATE: 01/16/2018 SUBJECTIVE: The patient is awake but hardly communicates. He denies having chest pain. PHYSICAL EXAMINATION: VITAL SIGNS: Blood pressure 140/98, heart rate 90, temperature 97.3, respirations 18. HEENT: Normocephalic. CHEST: Diminished breath sounds over the bases. HEART: S1 and S2 regular. Grade 4/6 ejection systolic murmur over the left sternal border. ABDOMEN: Soft. EXTREMITIES: No edema. ASSESSMENT: 1. History of coronary artery disease with coronary artery stenting to the mid left anterior descending in 04/2016. 2. Borderline troponin elevation likely related to the patient's end-stage renal disease. 3. Unccbwbc-gf-uptltk calcific aortic valve stenosis. 4. Tkvaxzzs-dr-snwwgx pulmonary hypertension. 5. End-stage renal disease, on hemodialysis. 6. 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 7. History of gastrointestinal bleeding in the past. 8. Fever and chills on admission. The patient's blood culture is negative after 3 days. RECOMMENDATIONS: Continue current aspirin 81 mg once a day, intravenous Maxipime 1 g daily, thiamine 100 mg once a day, doxycycline 100 mg p.o. every 12 hours. Patient is scheduled to have hemodialysis today. CT angio was canceled. Conservative medical approach is recommended. Al Strong MD
--- NOTE | 2018-01-16 21:18 | PN ---
DATE: 01/16/2018 SUBJECTIVE: The patient was found to be agitated, restless, swinging at the pitch and the nurses and was uncooperative. Which started yesterday evening and afternoon. The patient's similar behavior persisted overnight and today, the patient required a dose of Ativan. The patient was refused multiple things. The patient is refusing the testing. The patient is seen lying in the bed in room 271, bed 1. OBJECTIVE: GENERAL: The patient is arousable, alert, awake, responsive. VITAL SIGNS: T-max 98.5. Telemetry shows sinus rhythm, heart rate 87, 91, 88, 90. Blood pressure is 137/53, 146/83. Respiration is 20. O2 sat is 94-99%. HEENT: Head examination normocephalic, atraumatic. HEENT examination shows pinkish pale conjunctivae. Anicteric sclerae. No oropharyngeal lesion. Soft carotid bruit. NECK: No neck rigidity. CHEST: Kyphosis. LUNGS: Shows no rales, crackles or wheezing. CARDIOVASCULAR: S1, S2, regular rhythm. Positive systolic murmur, left second intercostal space, right second intercostal space, left sternal border. ABDOMEN: Soft. Positive bowel sounds. GENITALIA: Male. RECTAL: Deferred. EXTREMITIES: Shows no pitting edema, no calf numbness, no Homans' sign. Positive left upper extremity AV fistula. Gait examination not tested. VASCULAR: Palpable pulses of the lower extremity. Fingerstick blood sugar 127, 114, 138. The patient refused lab work today and yesterday. Microbiology cultures are negative. IMPRESSION AND PLAN: 1. Altered mental status with encephalopathy and episodic agitation and possible delirium with behavioral disorder. 2. Poor compliance and noncompliance with refusing to labs and testing and refusing to take medication. 3. History of dementia. 4. Delirium. 5. Hypertension. 6. Leukocytosis with granulocytosis. 7. Systemic inflammatory response syndrome. 8. Elevated D-dimer and end-stage renal disease patient. 9. Increased anion gap metabolic acidosis and lactic acidosis. 10. Questionable and possible non-ST elevation myocardial infarction with elevated troponin. 11. Hyperprocalcitoninemia. 12. End-stage renal disease, hemodialysis dependent three times a week via the left upper extremity AV fistula. 13. Cardiomegaly. 14. Cholelithiasis. 15. Multiple bilateral renal cyst. 16. Ascending, transverse and descending colon colitis. 17. Fecal impaction with proximal colonic distention. 18. Right inguinal hernia with nondilated small bowel loop. 19. Questionable cystitis with diffuse urinary bladder wall thickening and possible cystitis. 20. Prostatomegaly. 21. Left ventricular ejection fraction of 58%. 22. Pulmonary hypertension. Xbapowyh-hf-kmwhzg pulmonary hypertension with right ventricular systolic pressure of 66 mmHg and moderate tricuspid regurgitation. 23. Concentric left ventricular hypertrophy. 24. Grade 2 pseudonormal filling dynamics. 25. Mildly dilated left and right atrium. 26. Moderate to severely calcified aortic valve. 27. Mild aortic regurgitation. 28. Ohpaeqdl-em-dbdoxp valvular aortic stenosis. 29. Moderately thickened mitral valve. 30. Mild mitral regurgitation. 31. Moderate tricuspid regurgitation. 1. Questionable behavioral disorder with noncompliance and refusal with lab data and refusing medications and refusing treatment. 2. History of dementia with possible acute exacerbation. 3. Cholelithiasis. 4. Bilateral renal cyst. 5. Ascending, transverse colon, descending colon colitis. 6. Fecal impaction. 7. Colonic distention. 8. Right inguinal hernia. 9. Questionable cystitis with diffuse urinary bladder thickening. 10. Prostatomegaly. 11. Hypertension. 12. Systemic inflammatory response syndrome with leukocytosis, granulocytosis. 13. Normocytic anemia. 14. End-stage renal disease, hemodialysis dependent. 15. Increased anion gap metabolic acidosis and lactic acidosis. 16. History of diabetes mellitus with hemoglobin A1c of 5.8, well controlled. 17. Questionable and possible non-ST elevation myocardial infarction with elevated troponin. 18. Hyperprocalcitoninemia. 19. Deconditioning. 20. Gait dysfunction. 21. History of coronary artery disease. 22. Advanced dementia with acute exacerbation and delirium. 23. History of coronary artery disease, non-ST elevation myocardial infarction. 24. History of diabetic gastroparesis. 1. Systemic inflammatory response syndrome. 2. High-grade fever. 3. Tachycardia. 4. Leukocytosis with granulocytosis. 5. End-stage renal disease, hemodialysis dependent three times a week. 6. Questionable acute coronary syndrome and pem-LA-ckoxtdqxu myocardial infarction with elevated troponin. 7. Advanced dementia. 8. Leukocytosis with granulocytosis. 9. Elevated D-dimer of greater than 1600, etiology undetermined. 10. Increased anion gap metabolic acidosis and lactic acidosis. 11. Well-controlled diabetes mellitus with hemoglobin A1c of 5.8. 12. Hyperprocalcitoninemia. 13. 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 14. Left ventricular ejection fraction of 58%. 15. Concentric left ventricular hypertrophy. 16. Inferior wall hypokinesis with grade 2 pseudo normal filling dynamics. 17. Pulmonary hypertension with right ventricular systolic pressure of 66 mmHg. 18. Kqckldtw-nj-hjnzim valvular aortic stenosis with igxmkjsp-rv-fnvfdake calcified aortic valve. 19. Moderately thickened mitral valve. 20. Mild mitral regurgitation, mild aortic regurgitation. 21. Moderate tricuspid regurgitation with moderate to severe pulmonary hypertension with right ventricular systolic pressure of 66 mmHg. 22. Hbbnhkgt-ql-icagdc valvular aortic stenosis. 23. 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 24. Deconditioning. 25. Gait dysfunction. 26. Systemic inflammatory response syndrome. 27. Cardiomegaly. 28. Bilateral pulmonary linear scarring. 29. Diabetic gastroparesis. 30. Advanced dementia. 31. History of coronary artery disease with coronary angioplasty. 32. Hyperlipidemia. 33. Constipation. 1. Questionable possible systemic inflammatory response syndrome with high-grade fever and tachycardia. 2. Leukocytosis with granulocytosis. 3. Normocytic anemia and anemia of chronic disease. 4. Questionable acute non-ST elevation myocardial infarction with elevated troponin. 5. Increased anion gap metabolic and lactic acidosis. 6. End-stage renal disease, hemodialysis dependent. 7. Insulin-requiring diabetes mellitus with hyperglycemia. 8. 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 9. Mild normocytic anemia. 10. History of severe noncompliance. 11. History of dementia. 12. Bilateral midlung pulmonary scarring. 13. Cardiomegaly. 14. Deconditioning. 1. Questionable systemic inflammatory response syndrome versus sepsis. 2. High-grade fever. 3. Hypertension. 4. Leukocytosis with granulocytosis. 5. Mild normocytic anemia. 6. Increased anion gap, metabolic acidosis, and lactic acidosis. 7. History of end-stage renal disease, hemodialysis dependent. 8. History of insulin-requiring diabetes mellitus, off all medications. 9. History of severe noncompliance. 10. History of advanced dementia. 11. History of gait dysfunction. At present, the patient is awaiting for neurology, psychiatry evaluation. The patient has been ordered ammonia level, B12, folate, thyroid profile, hepatitis profile, magnesium phosphorus. The patient has been requested GI consultation for evaluation of colitis. Infectious Disease evaluation has already been requested. Nephrology evaluation requested. Neurology consultation ordered. Cardiology consultation, Podiatry and Psychiatry evaluation were requested. RPR ordered. The patient's current medications Aricept 5 mg at bedtime, Ativan 1 mg IM every 8 hours p.r.n., Colace 100 mg three times a day, doxycycline 100 mg p.o. every 12 hours, Ecotrin 81 mg daily, Flagyl 500 mg p.o. every 8 hours, heparin 5000 subcu every 12 hours, Humalog medium dose sliding scale coverage a.c. and at bedtime, Lipitor 40 mg daily, cefepime 1 g IV every 24 hours, MiraLax 17 g twice a day, Protonix 40 mg daily, Tessalon Perles 200 three times a day, Tylenol p.r.n., Xopenex nebulizer 0.63 mg every 6 hours, Zofran 4 mg IV every 4 hours p.r.n. The patient has been ordered an MRI of the brain without contrast. Chest PT, incentive spirometry, oxygen 2 liters, out of bed. Head of the bed at 30 degrees. Fingerstick blood sugar, physical therapy, occupational therapy ordered. At present, the patient is awaiting and pending evaluation by Neurology, Psychiatry, Podiatry, Gastroenterology, Infectious Disease, Nephrology, and Cardiology. The patient's overall prognosis is guarded to poor which has been explained to the patient's on multiple occasions, which she acknowledged and understands. Dictated and electronically signed, not read. Zeyad Nazario MD [email or web address]
[2018-01-17] MEDS: Levalbuterol 0.63 MG/3 ML Inhal Soln UD IH SCH ×4 (01:19→20:43)
[2018-01-17] MEDS: Pantoprazole 40 mg EC Tab PO SCH (06:35)
[2018-01-17] MEDS: Insulin Lispro (humaLOG) MEDIUM Coverage SC SCH ×4 (07:30→23:01)
--- NOTE | 2018-01-17 10:39 | PN ---
DATE: 01/17/2018 SUBJECTIVE: The patient is in bed, in no acute distress, nontoxic. PHYSICAL EXAMINATION: VITAL SIGNS: On exam, temperature is 98, blood pressure is 130/80, respiratory rate of 20. HEENT: Examination of HEENT is unremarkable. NECK: Supple. LUNGS: Have decreased breath sounds. HEART: Normal S1, S2. ABDOMEN: Soft. LABORATORY DATA: Laboratory examination reveals a white count of 8.5, hemoglobin of 11. Chemistries reveals a BUN of 55, creatinine is 8.8. Serology is noted. Microbiology is reviewed. Blood cultures are no growth at 4 days. Stool for C. diff is negative toxin, negative antigen. The patient is on p.o. doxycycline and cefepime. ASSESSMENT AND PLAN: An 87-year-old man, who was seen in [facility] [place], bed 1 with dementia, history of delirium, chronic renal failure, hemodialysis, coronary artery disease and myocardial infarction, gastroparesis, diabetes, diabetic gastroparesis, gastric ulcer, gastrointestinal hemorrhage, hypertension, who was admitted with systemic inflammatory response syndrome with Clostridium difficile negative. Today is day #5 of cefepime and doxycycline, would complete 4-7 days. Overall prognosis is quite poor for this patient. Will be stopping the antibiotics within the next 24 hours. Magdy Diego MD
[2018-01-17] MEDS: POLYETHYLENE GLYCOL 3350 17 GM/Dose PACKET PO SCH ×2 (11:09→18:20)
--- NOTE | 2018-01-17 11:14 | PN ---
DATE: 01/17/2018 SUBJECTIVE: The patient is in room 271, bed 1. The patient is seen in 271, bed 1. Overnight nurse's notes were reviewed. The patient was episodically agitated, confused, refusing medications, treatment, blood work, etc. The patient was found to be alert, awake, responsive and oriented x1 and confused and disoriented. PHYSICAL EXAMINATION: VITAL SIGNS: Telemetry shows normal sinus rhythm, heart rate 82, 87; T-max 98.2; blood pressure 135/84; respirations 20; O2 sat 99%. HEENT; Head examination normocephalic, atraumatic. HEENT examination shows pinkish pale conjunctivae. Anicteric sclerae. No oropharyngeal lesion. No neck rigidity. CHEST: Kyphosis. LUNGS: Shows no rales, crackles or wheezing. CARDIOVASCULAR: S1, S2. Regular rhythm. Positive systolic murmur, left sternal border, right second intercostal space, left second intercostal space. ABDOMEN: Soft. Positive bowel sounds. No palpable hepatosplenomegaly noted. GENITALIA: Male. RECTAL: Deferred. EXTREMITY: Shows positive left upper extremity AV fistula, positive thrill. Lower extremity shows no pitting edema, no calf tenderness, no Homans' sign. NEUROLOGICAL: The patient is alert, awake, oriented x1. Cranial nerves II through XII limited. Gait examination could not be tested. PSYCHIATRIC: Positive for agitation, confusion and refusing medications. DIAGNOSTICS: On 01/17/2018, WBC 8.5, hemoglobin and hematocrit 11.3 and 34, platelet 183, 74% segs. Sodium 137; potassium 4.3; chloride 99; CO2 is 19, which is slightly low; BUN 55; creatinine 8.8; calcium 9.1; phosphorus 6.1; magnesium 2; AST has gone up to 133; ALT ; ammonia level is 11; B12 of 770; folate 6.3; TSH is 4.5. The patient's MRI of the brain is pending. RPR is negative. The patient was seen by Gastroenterology, recommendations noted. The patient was seen by Neurology, their recommendations noted. The patient was seen by Psychiatry, their recommendations noted. IMPRESSION AND PLAN: 1. Acute exacerbation of dementia and acute delirium. 2. Self-limited colitis and gastroenteritis. 3. Acute exacerbation of dementia with questionable and possible behavioral disorders with agitation, confusion and refusing medication treatment. 4. Systemic inflammatory response syndrome. 5. Hyperprocalcitoninemia. 6. Normocytic anemia of chronic kidney disease. 7. End-stage renal disease, hemodialysis dependent via the left upper extremity arteriovenous fistula three times a week. 8. Hyperphosphatemia and secondary hyperparathyroidism. 9. Mild metabolic acidosis. 10. New onset transaminitis. 11. Ascending, transverse and descending colon colitis. 12. Possible gastroenteritis. 13. Fecal impaction, fecal retention with colonic distention. 14. Prostatomegaly. 15. Cholelithiasis. 16. Gait dysfunction. 17. Dementia. 18. Insulin-requiring diabetes mellitus, well controlled with hemoglobin A1c of 5.8. 19. History of hypertension. 20. History of diabetic gastroparesis, history of constipation, history of fecal stasis. 21. History of poor compliance. 1. Altered mental status with encephalopathy and episodic agitation and possible delirium with behavioral disorder. 2. Poor compliance and noncompliance with refusing to labs and testing and refusing to take medication. 3. History of dementia. 4. Delirium. 5. Hypertension. 6. Leukocytosis with granulocytosis. 7. Systemic inflammatory response syndrome. 8. Elevated D-dimer and end-stage renal disease patient. 9. Increased anion gap metabolic acidosis and lactic acidosis. 10. Questionable and possible non-ST elevation myocardial infarction with elevated troponin. 11. Hyperprocalcitoninemia. 12. End-stage renal disease, hemodialysis dependent three times a week via the left upper extremity AV fistula. 13. Cardiomegaly. 14. Cholelithiasis. 15. Multiple bilateral renal cyst. 16. Ascending, transverse and descending colon colitis. 17. Fecal impaction with proximal colonic distention. 18. Right inguinal hernia with nondilated small bowel loop. 19. Questionable cystitis with diffuse urinary bladder wall thickening and possible cystitis. 20. Prostatomegaly. 21. Left ventricular ejection fraction of 58%. 22. Pulmonary hypertension. Cytdvnen-yc-ufihdo pulmonary hypertension with right ventricular systolic pressure of 66 mmHg and moderate tricuspid regurgitation. 23. Concentric left ventricular hypertrophy. 24. Grade 2 pseudonormal filling dynamics. 25. Mildly dilated left and right atrium. 26. Moderate to severely calcified aortic valve. 27. Mild aortic regurgitation. 28. Znoavild-gp-ggstbn valvular aortic stenosis. 29. Moderately thickened mitral valve. 30. Mild mitral regurgitation. 31. Moderate tricuspid regurgitation. 1. Questionable behavioral disorder with noncompliance and refusal with lab data and refusing medications and refusing treatment. 2. History of dementia with possible acute exacerbation. 3. Cholelithiasis. 4. Bilateral renal cyst. 5. Ascending, transverse colon, descending colon colitis. 6. Fecal impaction. 7. Colonic distention. 8. Right inguinal hernia. 9. Questionable cystitis with diffuse urinary bladder thickening. 10. Prostatomegaly. 11. Hypertension. 12. Systemic inflammatory response syndrome with leukocytosis, granulocytosis. 13. Normocytic anemia. 14. End-stage renal disease, hemodialysis dependent. 15. Increased anion gap metabolic acidosis and lactic acidosis. 16. History of diabetes mellitus with hemoglobin A1c of 5.8, well controlled. 17. Questionable and possible non-ST elevation myocardial infarction with elevated troponin. 18. Hyperprocalcitoninemia. 19. Deconditioning. 20. Gait dysfunction. 21. History of coronary artery disease. 22. Advanced dementia with acute exacerbation and delirium. 23. History of coronary artery disease, non-ST elevation myocardial infarction. 24. History of diabetic gastroparesis. 1. Systemic inflammatory response syndrome. 2. High-grade fever. 3. Tachycardia. 4. Leukocytosis with granulocytosis. 5. End-stage renal disease, hemodialysis dependent three times a week. 6. Questionable acute coronary syndrome and zpw-YP-luzbojrkm myocardial infarction with elevated troponin. 7. Advanced dementia. 8. Leukocytosis with granulocytosis. 9. Elevated D-dimer of greater than 1600, etiology undetermined. 10. Increased anion gap metabolic acidosis and lactic acidosis. 11. Well-controlled diabetes mellitus with hemoglobin A1c of 5.8. 12. Hyperprocalcitoninemia. 13. 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 14. Left ventricular ejection fraction of 58%. 15. Concentric left ventricular hypertrophy. 16. Inferior wall hypokinesis with grade 2 pseudo normal filling dynamics. 17. Pulmonary hypertension with right ventricular systolic pressure of 66 mmHg. 18. Jtdiatej-fh-takvsj valvular aortic stenosis with dctswcex-rg-plrigfdc calcified aortic valve. 19. Moderately thickened mitral valve. 20. Mild mitral regurgitation, mild aortic regurgitation. 21. Moderate tricuspid regurgitation with moderate to severe pulmonary hypertension with right ventricular systolic pressure of 66 mmHg. 22. Oqwnfmht-lb-rxdtvg valvular aortic stenosis. 23. 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 24. Deconditioning. 25. Gait dysfunction. 26. Systemic inflammatory response syndrome. 27. Cardiomegaly. 28. Bilateral pulmonary linear scarring. 29. Diabetic gastroparesis. 30. Advanced dementia. 31. History of coronary artery disease with coronary angioplasty. 32. Hyperlipidemia. 33. Constipation. 1. Questionable possible systemic inflammatory response syndrome with high-grade fever and tachycardia. 2. Leukocytosis with granulocytosis. 3. Normocytic anemia and anemia of chronic disease. 4. Questionable acute non-ST elevation myocardial infarction with elevated troponin. 5. Increased anion gap metabolic and lactic acidosis. 6. End-stage renal disease, hemodialysis dependent. 7. Insulin-requiring diabetes mellitus with hyperglycemia. 8. 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 9. Mild normocytic anemia. 10. History of severe noncompliance. 11. History of dementia. 12. Bilateral midlung pulmonary scarring. 13. Cardiomegaly. 14. Deconditioning. 1. Questionable systemic inflammatory response syndrome versus sepsis. 2. High-grade fever. 3. Hypertension. 4. Leukocytosis with granulocytosis. 5. Mild normocytic anemia. 6. Increased anion gap, metabolic acidosis, and lactic acidosis. 7. History of end-stage renal disease, hemodialysis dependent. 8. History of insulin-requiring diabetes mellitus, off all medications. 9. History of severe noncompliance. 10. History of advanced dementia. 11. History of gait dysfunction. Plan at this time, the patient was seen by Gastroenterology, recommendations were noted. The patient was seen by Psychiatry, their recommendations were noted. The patient was seen by Neurology, their recommendations were noted. The patient is awaiting MRI of the brain ordered by Neurology. The patient is awaiting further recommendations from Infectious Disease regarding discontinuation of the IV antibiotics. The patient is on IV antibiotics as per Infectious Disease recommendation. The patient's medications will be continued as per the MAR. The patient has been started on Aricept 5 mg at bedtime. The patient was started on laxative and stool softeners. The patient is on IV antibiotics as per Infectious Disease. The patient's Lipitor has been stopped at this time because of transaminitis. The patient's LFTs and labs will be repeated. I have spoken to the patient's , yesterday. I have explained to the patient's about the patient's condition, diagnoses, overall guarded prognosis. I have also explained to the patient's about decompensation of the patient's medical and neurological condition due to the patient's noncompliance with medications for almost 6-8 months. I have also mentioned to the patient's about the patient need for 24-hour care and supervision with activities of daily living. I have advised I have explained to the patient's about all the present diagnoses, recommendation by all physician, treatment plan options, discharge planning details. I have advised the patient's to discuss with [employer] Film Inspector and Case Management. At present, the patient has also been seen by the Physical Therapy, Occupational Therapy, ambulation therapy, gait training. The patient will be considered for discharge planning options, either TCU or subacute rehab whichever the patient's will accept and whatever the patient is eligible for and accepted. Dictated and electronically signed, not read. Zeyad Nazario MD MTDD
--- NOTE | 2018-01-17 11:53 | CT ---
Date of service: 01/17/2018 PROCEDURE: CT HEAD WITHOUT CONTRAST. HISTORY: ams COMPARISON: 04/27/2017 TECHNIQUE: Axial computed tomography images were obtained through the head/brain without intravenous contrast. Radiation dose: Total exam DLP = mGy-cm. This CT exam was performed using one or more of the following dose reduction techniques: Automated exposure control, adjustment of the mA and/or kV according to patient size, and/or use of iterative reconstruction technique. FINDINGS: HEMORRHAGE: No intracranial hemorrhage. BRAIN: No mass effect or edema. Atrophy and chronic microvascular ischemic disease. VENTRICLES: Unremarkable. No hydrocephalus. CALVARIUM: Unremarkable. PARANASAL SINUSES: Unremarkable as visualized. No significant inflammatory changes. MASTOID AIR CELLS: Unremarkable as visualized. No inflammatory changes. OTHER FINDINGS: None. IMPRESSION: No acute hemorrhage. No significant interval change.
[2018-01-17 11:59] LABS: FREE T4 1.77 ng/dL (0.78-2.19); T4 7.7 ug/dL (5.5-11.0)
[2018-01-17 12:12] LABS: T3 0.59 ng/mL (0.97-1.69)
--- NOTE | 2018-01-17 15:27 | PN ---
DATE: 01/17/2018 SUBJECTIVE: The patient is oriented to place. He denies any shortness of breath or chest pain. PHYSICAL EXAMINATION: VITAL SIGNS: Blood pressure 132/82, heart rate 81, temperature 97.8, respirations 18. HEENT: Normocephalic. CHEST: Diminished breath sounds at the bases. HEART: S1, S2 regular. EXTREMITIES: No edema. LABORATORY DATA: Today's blood sugar is 167. Abdominal ultrasound was performed, but the report is still pending. Blood cultures are negative after [address] scan without contrast performed yesterday revealed no acute hemorrhage. No significant interval change. ASSESSMENT: 1. Yhrpgomj-ul-mfwjzz calcific valvular aortic stenosis. 2. End stage renal disease, on hemodialysis. 3. Coronary artery disease with history of coronary stenting to mid LAD in 04/2016. 4. Rwypghci-fh-peehzs pulmonary hypertension. 5. 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 6. History of gastrointestinal bleeding in the past with history of gastric carcinoma. CONDITIONS: Continue current aspirin 81 mg once a day, Flagyl 500 mg p.o. every 8 hours, thiamine 100 mg daily, Xopenex inhaler every 6 hours and Zofran 4 mg intravenously every 4 hours p.r.n. Consider subcutaneous heparin if there is no contraindication from the GI and Hematology point of view. Al Strong MD
--- NOTE | 2018-01-17 15:58 | PN ---
DATE: 01/17/2018 SUBJECTIVE: The patient is lying in bed, comfortable. He denies any abdominal pain, rectal bleeding, or diarrhea. He denies any fevers or chills. PHYSICAL EXAMINATION: VITAL SIGNS: Reveal temperature of 98.2, blood pressure 135/84, heart rate of 80. HEENT: Reveal sclerae to be white. Conjunctivae pink. NECK: Supple. CHEST: Reveals lungs to be clear. HEART: Reveals regular rate and rhythm. ABDOMEN: Soft, nontender. EXTREMITIES: Show no edema. LABORATORY DATA: Reveals no new blood work. Stool for C. diff antigen and toxin are negative. IMPRESSION: An 87-year-old male with end-stage renal disease with fever and systemic inflammatory response syndrome. His blood cultures are negative. He has end-stage renal disease, on hemodialysis. He had nonspecific mural thickening of the ascending colon, transverse colon, and parts of the descending colon with fecal impaction. Stool for Clostridium difficile toxin and antigen are negative. The mural thickening is nonspecific. RECOMMENDATIONS: Continue supportive care. No further GI workup is planned at this time. Alexi Hitchcock MD
--- NOTE | 2018-01-17 16:01 | PN ---
DATE: 01/17/2018 SUBJECTIVE: The patient is currently seen as he is leaving to go down for a followup abdominal and pelvic CT scan. The initial scan showed possible acute colitis of the ascending and transverse colon with perhaps cystitis. The patient appears to have stabilized. He still remains confused according to his family. He had an uneventful dialysis yesterday and he is scheduled for dialysis again tomorrow. MEDICATIONS: Medication list reviewed. The patient is on Aricept, Ativan, Colace, Ecotrin, Flagyl, heparin, insulin, MiraLax, Protonix, Tessalon Perles, Tylenol, vitamin B1, Xopenex and Zofran p.r.n. The patient had received Maxipime, but currently his IV is out. He had received doxycycline. OBJECTIVE: INTAKE/OUTPUT: Intake is 320, output is 0. VITAL SIGNS: Blood pressure 132/82, temperature 97.8, respiratory rate is 18 with a pulse of 81. Oxygen saturation 99%. HEENT: Shows him to be normocephalic, atraumatic. Conjunctivae are pink. Sclerae are nonicteric. NECK: Supple. No neck vein distention. CHEST: Clear to auscultation and percussion. No rales, rhonchi or wheezing. CARDIOVASCULAR: Regular rate and rhythm without audible murmurs, rubs or gallops. ABDOMEN: Soft. Bowel sounds normal. Nondistended. No rebound or guarding. No point tenderness. EXTREMITIES: No lower extremity cyanosis, clubbing or edema. He has a working left upper extremity AV fistula. LABORATORY DATA AND IMAGING: Initial abdominal CT scan showed possible colitis of the ascending and transverse colon. Possible cystitis. Gallstones with no cholecystitis. Repeat CT scan is being done at present. LABORATORY DATA: CBC: White blood cell count 8.5, down from 15.4; hemoglobin stable at 11.3; platelet count is 183,000. Chemistries predialysis yesterday: BUN 55 with a creatinine of 8.8, calcium 9.1, phosphorus is 6.1. Magnesium level is 2. Mild elevation of his liver enzymes. Bilirubin level is normal. Albumin is 3.8. Microbiology: Blood cultures are negative at 4 days. Stool for C. diff is negative. ASSESSMENT: 1. Systemic inflammatory response syndrome. Status post leukocytosis, fever and vomiting. Perhaps colitis. The patient is receiving IV and oral antibiotic therapy under the guidance of Infectious Disease. 2. Altered mental status with underlying dementia. The patient continues on present medication. He has perhaps made slight improvement, but he is not quite back to baseline. 3. Noninsulin-dependent diabetes mellitus. Glucose levels are controlled. 4. History of hypertension, controlled. 5. History of mild anemia secondary to chronic kidney disease, stable. 6. History of end-stage renal disease. The patient will continue Tuesday, Tuesday and Tuesday dialysis. 7. History of dementia with altered mental status. The patient is not quite back to baseline. 8. History of atherosclerotic heart disease, stable. 9. History of secondary hyperparathyroidism. The patient's phosphorus level presently is 6.1. I will place the patient back on binder therapy and continue a renal diet. PLAN: 1. Hemodialysis Tuesday, Tuesday, Tuesday. 2. GI followup. 3. Continued ID followup, continuation of antibiotics for completion of course of antibiotics. All cultures to date are negative. 4. Discussed with the patient's in detail and staff on 2R. William Erickson MD
--- NOTE | 2018-01-17 16:06 | US ---
Date of service: 01/17/2018 HISTORY: Abnormal LFTs. COMPARISON: 01/15/2018 CT abdomen and pelvis. 03/19/2013 abdominal ultrasound TECHNIQUE: Sonographic evaluation of the abdomen. FINDINGS: LIVER: Measures 15.4 cm. Normal echogenicity of the liver parenchyma. No mass. No intrahepatic bile duct dilatation. GALLBLADDER: Unremarkable. No gallstones. COMMON BILE DUCT: Measures 7.3 mm. No stones. No dilatation. PANCREAS: Unremarkable as visualized. No mass. No ductal dilatation. RIGHT KIDNEY: Measures 3.98 x 11.2cm. Normal echogenicity. No calculus, mass, or hydronephrosis.Incidental finding(s): Multiple simple cysts similar finding identified previously LEFT KIDNEY: Measures 4.5 x 9.0cm. Normal echogenicity. No calculus, mass, or hydronephrosis. Incidental midpole cyst 1.8 x 2.2 cm. SPLEEN: Normal in size and contour. No mass. AORTA: No aneurysmal dilatation. IVC: Unremarkable. OTHER FINDINGS: None. IMPRESSION: No significant or acute findings to account for/ related to the clinical presentation. Additional benign and/or incidental findings described above.
--- NOTE | 2018-01-17 20:35 | PN ---
DATE: 01/17/2018 SUBJECTIVE: The patient seen earlier this morning overall in poor condition. Continues to deteriorate, do poorly, and there has been no fevers reported. PHYSICAL EXAMINATION VITAL SIGNS: Temperature is 98, blood pressure is 130/80, respiratory rate of 20. HEENT: Examination of HEENT is unremarkable. NECK: Supple. LUNGS: Have decreased breath sounds. HEART: Normal S1, S2. ABDOMEN: Soft and nontender. LABORATORY DATA: Laboratory examination reveals a white count of 8.5 and hemoglobin of 11. Chemistries are noted. Serology is reviewed. Blood cultures are negative. His stool for C. diff antigen and toxin are both negative. MEDICATIONS: Review of orders reveals the patient to be on doxycycline and cefepime. ASSESSMENT AND PLAN: This is an 87-year-old male with advanced dementia; history of delirium; chronic renal failure, on hemodialysis; coronary artery disease; myocardial infarction; diabetic gastroparesis; gastric ulcers; gastrointestinal bleed; and hypertension. Admitted with systemic inflammatory response syndrome. Today is day #5 of doxycycline and cefepime. We will discontinue the antibiotics. No further antibiotics necessary. Overall, prognosis is poor for this patient who is end stage. Magdy Diego MD
[2018-01-18] MEDS: Levalbuterol 0.63 MG/3 ML Inhal Soln UD IH SCH ×4 (02:30→21:29)
[2018-01-18] MEDS: Pantoprazole 40 mg EC Tab PO SCH (06:17)
[2018-01-18] MEDS: Insulin Lispro (humaLOG) MEDIUM Coverage SC SCH ×4 (08:07→22:12)
--- NOTE | 2018-01-18 08:43 | CP.PCM.PN ---
<Cullen Loco - Last Filed: 01/18/18 13:50> Subjective - Date & Time of Evaluation Date of Evaluation: 01/18/18 Time of Evaluation: 06:00 - Subjective Subjective: Patient seen and evaluated bedside. Unable to obtain full ROS due to mental status. no acute issues overnight. Objective - Vital Signs/Intake and Output Vital Signs (last 24 hours): Temp Pulse Resp BP Pulse Ox 97.8 F 78 19 148/88 100 01/18/18 06:00 01/18/18 06:00 01/18/18 06:00 01/18/18 06:00 01/18/18 06:00 Intake and Output: 01/18/18 01/18/18 06:59 18:59 Intake Total 660 Output Total 2 Balance 658 - Medications Medications: Current Medications Acetaminophen (Tylenol 325mg Tab) 650 mg PO Q6 PRN PRN Reason: TEMP>=99.5F Acetaminophen (Tylenol 650 Mg Supp) 650 mg RC Q6H PRN PRN Reason: TEMP>=99.5F Aspirin (Ecotrin) 81 mg PO DAILY [facility] Last Admin: 01/17/18 11:09 Dose: 81 mg Benzonatate (Tessalon Perles) 200 mg PO TID [facility] Last Admin: 01/17/18 18:20 Dose: Not Given Dextrose (Dextrose 50% Inj) 0 ml IV STAT PRN; Protocol PRN Reason: Hypoglycemia Protocol Docusate Sodium (Colace) 100 mg PO TID [facility] Last Admin: 01/17/18 14:00 Dose: Not Given Donepezil HCl (Aricept) 5 mg PO HS [facility] Last Admin: 01/17/18 23:11 Dose: 5 mg Heparin Sodium (Porcine) (Heparin) 5,000 units SC Q12 [facility]; Protocol Last Admin: 01/17/18 23:10 Dose: 5,000 units Dextrose (Dextrose 5% In Water 1000 Ml) 1,000 mls @ 0 mls/hr IV .Q0M PRN; Protocol PRN Reason: Hypoglycemia Protocol Insulin Human Lispro (Humalog Med) 0 units SC ACHS [facility]; Protocol Last Admin: 01/18/18 08:07 Dose: Not Given Levalbuterol HCl (Xopenex) 0.63 mg IH [id number] [facility] Last Admin: 01/18/18 08:17 Dose: Not Given Lorazepam (Ativan) 1 mg IM Q8 PRN; Protocol PRN Reason: Anxiety Last Admin: 01/16/18 10:01 Dose: 1 mg Metronidazole (Flagyl) 500 mg PO Q8 [facility]; Protocol Stop: 01/20/18 14:01 Last Admin: 01/18/18 06:17 Dose: Not Given Ondansetron HCl (Zofran Inj) 4 mg IVP Q4H PRN PRN Reason: Nausea/Vomiting Pantoprazole Sodium (Protonix Ec Tab) 40 mg PO 0600 [facility] Last Admin: 01/18/18 06:17 Dose: Not Given Polyethylene Glycol (Miralax) 17 gm PO BID [facility] Last Admin: 01/17/18 18:20 Dose: Not Given Sevelamer HCl (Renagel) 800 mg PO TID [facility] Last Admin: 01/17/18 18:20 Dose: Not Given Thiamine HCl (Vitamin B1 Tab) 100 mg PO DAILY [facility] Last Admin: 01/17/18 11:09 Dose: 100 mg - Labs Labs: 01/16/18 12:00 01/16/18 12:00 PT 13.4 SECONDS (9.4-12.5) H 01/12/18 18:30 INR 1.17 01/12/18 18:30 APTT 39.7 Seconds (25.1-36.5) H 01/14/18 22:23 - Constitutional Appears: Non-toxic, No Acute Distress - Head Exam Head Exam: ATRAUMATIC, NORMAL INSPECTION, NORMOCEPHALIC - Eye Exam Eye Exam: Normal appearance - ENT Exam ENT Exam: Mucous Membranes Moist - Respiratory Exam Respiratory Exam: Clear to Ausculation Bilateral - Cardiovascular Exam Cardiovascular Exam: REGULAR RHYTHM, +S1, +S2 - GI/Abdominal Exam GI & Abdominal Exam: Soft. absent: Tenderness - Neurological Exam Neurological Exam: Alert, Awake. absent: Oriented x3 Assessment and Plan - Assessment and Plan (Free Text) Assessment: 87 M with extensive PMHx of ESRD on HD (M/W/F), CAD s/p stenting, hx of GI bleeds, CVA, Gastric cancer, Mitral valve prolapse, DM, HTN, BPH and dementia who presented with NSTEMI and SIRS. Plan: NSTEMI-resolved patient has CAD with previous stenting Cardio consult - [facility] follow recs Aspirin 81mg Heparin SC SIRS -DC abx -continue to monitor WBC -afebrile ESRD on HD MWF continue HD Nephro consulted - Dr. Erickson consulted follow recs Renagel Colitis GI consulted, Coretta no further intervention C diff negative Flagyl Elevated AST CT showed cho[place]ass without cholecystitis HIDA scan read pending GI consulted, follow recs Dementia with delirium underlying Neuro consulted, Jose follow recs Psychiatry consulted, follow recs Thiamine Donepezil Ativan PRN for agitation CT head no acute changes MRI brain pending PPx Protonix, SCDs Case reviewed, and plan approved by Dr. Nazario, attending. <Zeyad Nazario U - Last Filed: 01/23/18 20:16> Objective - Vital Signs/Intake and Output Vital Signs (last 24 hours): Temp Pulse Resp BP Pulse Ox 97.3 F L 80 16 134/78 98 01/19/18 14:00 01/19/18 14:00 01/19/18 14:00 01/19/18 14:00 01/19/18 14:00 - Labs Labs: 01/18/18 13:00 01/18/18 13:00 PT 13.4 SECONDS (9.4-12.5) H 01/12/18 18:30 INR 1.17 01/12/18 18:30 APTT 39.7 Seconds (25.1-36.5) H 01/14/18 22:23 Attending/Attestation - Attestation I have personally seen and examined this patient.: Yes I have fully participated in the care of the patient.: Yes I have reviewed all pertinent clinical information, including history, physical exam and plan: Yes Notes (Text): Please see/read my dictated notes.
[2018-01-18] MEDS: POLYETHYLENE GLYCOL 3350 17 GM/Dose PACKET PO SCH ×3 (09:15→18:20)
--- NOTE | 2018-01-18 11:52 | PN ---
DATE: 01/18/2018 SUBJECTIVE: The patient is seen in room 271, bed 1. Overnight nurse's notes were reviewed. The patient was found to be confused, alert, awake, oriented x1. There was no agitation documented by the nurse's notes. The patient was found to be alert, awake, oriented x1. PHYSICAL EXAMINATION: VITAL SIGNS: T-max 97.4. Telemetry shows normal sinus rhythm, heart rate 74-82, blood pressure 144/83, respiration 20, O2 sat 100%. HEENT: Head: Examination normocephalic, atraumatic. HEENT examination shows pinkish pale conjunctivae. Anicteric sclerae. No oropharyngeal lesion. Questionable soft carotid bruit. CHEST: Kyphosis. LUNGS: Examination shows no rales, crackles or wheezing. CARDIOVASCULAR: S1, S2, regular rhythm. Questionable soft systolic murmur at left sternal border, right second intercostal space, left second intercostal space. ABDOMEN: Soft. Positive bowel sounds. No palpable hepatosplenomegaly noted. GENITALIA: Male. RECTAL: Examination is deferred. EXTREMITIES: Shows positive left upper extremity AV fistula, positive thrill. Lower extremity shows no pitting edema, no calf tenderness, no Homans' sign. NEUROLOGIC: The patient is alert, awake, responsive, oriented x1 to 2. The patient is able to move upper and lower extremities without assistance. Gait examination is not tested. DIAGNOSTICS: None from today. Ultrasound of the abdomen shows bilateral renal cyst. CAT scan of the head shows cerebral cortical atrophy of the brain and microvascular ischemic disease. MRI of the brain pending. IMPRESSION: 1. Systemic inflammatory response syndrome. 2. Status post high-grade fever. 3. Leukocytosis with granulocytosis. 4. Questionable nonspecific colitis of the ascending, transverse and descending colon. 5. Fecal stasis, fecal retention and constipation. 6. Leukocytosis. 7. Acute exacerbation of dementia and delirium. 8. Questionable and possible behavioral disorder secondary to exacerbation of dementia and delirium. 9. Bilateral renal cyst. 10. Cerebral cortical atrophy of the brain. 11. Microvascular ischemic disease of the brain. 12. End-stage renal disease, hemodialysis dependent three times a week via the left upper extremity arteriovenous fistula. 13. Secondary hyperparathyroidism. 14. Elevated troponin, etiology questionable versus non-ST elevation myocardial infarction. 15. History of multiple non-ST elevation myocardial infarction, history of coronary artery disease, history of coronary angioplasty and stent placement. 16. History of gastrointestinal bleeding. 17. History of constipation. 18. History of poor compliance and noncompliance with medication. 19. Gait dysfunction. 20. Deconditioning. 1. Acute exacerbation of dementia and acute delirium. 2. Self-limited colitis and gastroenteritis. 3. Acute exacerbation of dementia with questionable and possible behavioral disorders with agitation, confusion and refusing medication treatment. 4. Systemic inflammatory response syndrome. 5. Hyperprocalcitoninemia. 6. Normocytic anemia of chronic kidney disease. 7. End-stage renal disease, hemodialysis dependent via the left upper extremity arteriovenous fistula three times a week. 8. Hyperphosphatemia and secondary hyperparathyroidism. 9. Mild metabolic acidosis. 10. New onset transaminitis. 11. Ascending, transverse and descending colon colitis. 12. Possible gastroenteritis. 13. Fecal impaction, fecal retention with colonic distention. 14. Prostatomegaly. 15. Cholelithiasis. 16. Gait dysfunction. 17. Dementia. 18. Insulin-requiring diabetes mellitus, well controlled with hemoglobin A1c of 5.8. 19. History of hypertension. 20. History of diabetic gastroparesis, history of constipation, history of fecal stasis. 21. History of poor compliance. 1. Altered mental status with encephalopathy and episodic agitation and possible delirium with behavioral disorder. 2. Poor compliance and noncompliance with refusing to labs and testing and refusing to take medication. 3. History of dementia. 4. Delirium. 5. Hypertension. 6. Leukocytosis with granulocytosis. 7. Systemic inflammatory response syndrome. 8. Elevated D-dimer and end-stage renal disease patient. 9. Increased anion gap metabolic acidosis and lactic acidosis. 10. Questionable and possible non-ST elevation myocardial infarction with elevated troponin. 11. Hyperprocalcitoninemia. 12. End-stage renal disease, hemodialysis dependent three times a week via the left upper extremity AV fistula. 13. Cardiomegaly. 14. Cholelithiasis. 15. Multiple bilateral renal cyst. 16. Ascending, transverse and descending colon colitis. 17. Fecal impaction with proximal colonic distention. 18. Right inguinal hernia with nondilated small bowel loop. 19. Questionable cystitis with diffuse urinary bladder wall thickening and possible cystitis. 20. Prostatomegaly. 21. Left ventricular ejection fraction of 58%. 22. Pulmonary hypertension. Vfwtbysz-cg-ltaiiz pulmonary hypertension with right ventricular systolic pressure of 66 mmHg and moderate tricuspid regurgitation. 23. Concentric left ventricular hypertrophy. 24. Grade 2 pseudonormal filling dynamics. 25. Mildly dilated left and right atrium. 26. Moderate to severely calcified aortic valve. 27. Mild aortic regurgitation. 28. Rirvurbo-ev-xztmhe valvular aortic stenosis. 29. Moderately thickened mitral valve. 30. Mild mitral regurgitation. 31. Moderate tricuspid regurgitation. 1. Questionable behavioral disorder with noncompliance and refusal with lab data and refusing medications and refusing treatment. 2. History of dementia with possible acute exacerbation. 3. Cholelithiasis. 4. Bilateral renal cyst. 5. Ascending, transverse colon, descending colon colitis. 6. Fecal impaction. 7. Colonic distention. 8. Right inguinal hernia. 9. Questionable cystitis with diffuse urinary bladder thickening. 10. Prostatomegaly. 11. Hypertension. 12. Systemic inflammatory response syndrome with leukocytosis, granulocytosis. 13. Normocytic anemia. 14. End-stage renal disease, hemodialysis dependent. 15. Increased anion gap metabolic acidosis and lactic acidosis. 16. History of diabetes mellitus with hemoglobin A1c of 5.8, well controlled. 17. Questionable and possible non-ST elevation myocardial infarction with elevated troponin. 18. Hyperprocalcitoninemia. 19. Deconditioning. 20. Gait dysfunction. 21. History of coronary artery disease. 22. Advanced dementia with acute exacerbation and delirium. 23. History of coronary artery disease, non-ST elevation myocardial infarction. 24. History of diabetic gastroparesis. 1. Systemic inflammatory response syndrome. 2. High-grade fever. 3. Tachycardia. 4. Leukocytosis with granulocytosis. 5. End-stage renal disease, hemodialysis dependent three times a week. 6. Questionable acute coronary syndrome and bud-BB-gryoutnrk myocardial infarction with elevated troponin. 7. Advanced dementia. 8. Leukocytosis with granulocytosis. 9. Elevated D-dimer of greater than 1600, etiology undetermined. 10. Increased anion gap metabolic acidosis and lactic acidosis. 11. Well-controlled diabetes mellitus with hemoglobin A1c of 5.8. 12. Hyperprocalcitoninemia. 13. 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 14. Left ventricular ejection fraction of 58%. 15. Concentric left ventricular hypertrophy. 16. Inferior wall hypokinesis with grade 2 pseudo normal filling dynamics. 17. Pulmonary hypertension with right ventricular systolic pressure of 66 mmHg. 18. Kqdyazyf-os-xsvgbq valvular aortic stenosis with kblthzcn-ts-kpvbucwi calcified aortic valve. 19. Moderately thickened mitral valve. 20. Mild mitral regurgitation, mild aortic regurgitation. 21. Moderate tricuspid regurgitation with moderate to severe pulmonary hypertension with right ventricular systolic pressure of 66 mmHg. 22. Jbvyryvs-qo-yxrqai valvular aortic stenosis. 23. 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 24. Deconditioning. 25. Gait dysfunction. 26. Systemic inflammatory response syndrome. 27. Cardiomegaly. 28. Bilateral pulmonary linear scarring. 29. Diabetic gastroparesis. 30. Advanced dementia. 31. History of coronary artery disease with coronary angioplasty. 32. Hyperlipidemia. 33. Constipation. 1. Questionable possible systemic inflammatory response syndrome with high-grade fever and tachycardia. 2. Leukocytosis with granulocytosis. 3. Normocytic anemia and anemia of chronic disease. 4. Questionable acute non-ST elevation myocardial infarction with elevated troponin. 5. Increased anion gap metabolic and lactic acidosis. 6. End-stage renal disease, hemodialysis dependent. 7. Insulin-requiring diabetes mellitus with hyperglycemia. 8. 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 9. Mild normocytic anemia. 10. History of severe noncompliance. 11. History of dementia. 12. Bilateral midlung pulmonary scarring. 13. Cardiomegaly. 14. Deconditioning. 1. Questionable systemic inflammatory response syndrome versus sepsis. 2. High-grade fever. 3. Hypertension. 4. Leukocytosis with granulocytosis. 5. Mild normocytic anemia. 6. Increased anion gap, metabolic acidosis, and lactic acidosis. 7. History of end-stage renal disease, hemodialysis dependent. 8. History of insulin-requiring diabetes mellitus, off all medications. 9. History of severe noncompliance. 10. History of advanced dementia. 11. History of gait dysfunction. PLAN: At this time, the patient's IV antibiotics are discontinued by Infectious Disease. The patient is awaiting for an MRI of the brain. The patient has been seen by Infectious Disease, Neurology, Psychiatry, Nephrology, Podiatry. Their recommendations were reviewed. If the patient's MRI is negative for any acute pathology, the patient will be considered for discharge either to Transitional Care Unit or subacute rehab whichever discharge options are available and whichever option the patient is accepted to and the family is agreeable to. The patient's current medications were reviewed, which are as per the MAR of today which was reviewed. ADDENDUM: The patient's HIDA scan results, official results are pending. Dictated and electronically signed, not read. Zeyad Nazario MD [facility]
--- NOTE | 2018-01-18 12:58 | NM ---
Date of service: 01/17/2018 PROCEDURE: Nuclear Medicine Hepatobiliary Scan HISTORY: LFTs, cholelithiasis COMPARISON: January 17, 2018. Abdominal ultrasound TECHNIQUE: 5.2 mCi of technetium 99m Mebrofenin was administered intravenously. Planar images of the abdomen were obtained at 5 min intervals to 60 mins. Delayed images were also obtained. FINDINGS: LIVER: Timely and homogenous uptake. COMMON BILE DUCT: identified at 30 mins. GALLBLADDER: identified at 30 mins. SMALL BOWEL: Identified at 45 mins. IMPRESSION: Normal Hepatobiliary Scan. The cystic duct is patent.
[2018-01-18 13:53] LABS: BASO # 0.01 K/mm3 (0.0-2.0); BASO % 0.1 % (0.0-3.0); EOS # 0.1 (0.0-0.7); EOS % 0.7 % (1.5-5.0); GRAN # 5.24 (1.4-6.5); GRAN % 72.3 % (50.0-68.0); HEMOGLOBIN 11.3 g/dL (14.0-18.0); LYMPH # 1.1 (1.2-3.4); LYMPH % 15.7 % (22.0-35.0); MEAN CELL VOLUME 90.7 fl (80.0-105.0); MEAN PLATELET VOLUME 10.5 fl (7.0-11.0); MONO # 0.8 (0.1-0.6); MONO % 11.2 % (1.0-6.0); RBC 3.77 10^6/uL (3.5-6.1); RED CELL DISTRIBUTION WIDTH 17.1 % (11.5-14.5); WHITE BLOOD COUNT 7.3 10^3/ul (4.5-11.0)
[2018-01-18 14:15] LABS: CALCIUM 8.8 mg/dL (8.4-10.5)
--- NOTE | 2018-01-18 14:21 | PN ---
DATE: 01/18/2018 SUBJECTIVE: The patient is in bed, in no acute distress, nontoxic, comfortable, seen earlier. PHYSICAL EXAMINATION: VITAL SIGNS: Temperature is 97, blood pressure is 140/80, respiratory rate 16. HEENT: Unremarkable. NECK: Supple. LUNGS: Decreased breath sounds. HEART: Normal S1 and S2. ABDOMEN: Soft. LABORATORY DATA: There is a white count of 8.5, hemoglobin 11. Chemistries are noted. Serologies reviewed. Hepatitis negative and microbiology reveals stool C. diff is negative. Blood culture is negative. Review of orders revealed the patient to be on p.o. Flagyl. ASSESSMENT AND PLAN: An 87-year-old male with advanced dementia, history of delirium, chronic renal failure, on hemodialysis, coronary artery disease, myocardial infarction, gastroparesis, gastric ulcer, gastrointestinal bleed, hypertension, admitted with serious systemic inflammatory response syndrome and received five days of , currently on only p.o. Flagyl. DrLuis Fernando note is reviewed. Magdy Diego MD
--- NOTE | 2018-01-18 14:49 | PN ---
DATE: 01/18/2018 CARDIOLOGY FOLLOWUP SUBJECTIVE: The patient is in dialysis without complaints. PHYSICAL EXAMINATION: VITAL SIGNS: Stable. Blood pressure is 155/90, the heart rate is in the 80s. NECK: Negative JVD. LUNGS: Without rales. HEART: Reveals a 2/6 systolic ejection murmur. EXTREMITIES: Without change. LABORATORY DATA: Hemoglobin is 11.3, potassium is 3.2 with a creatinine of 5.8. IMPRESSION: 1. Aortic stenosis with aortic insufficiency. 2. Normal left ventricular function. 3. Moderate to severe pulmonary hypertension. 4. Chronic dyspnea. 5. End-stage renal disease. PLAN: Given these findings, after dialysis, it was discussed with the patient about the potential for cardiac catheterization if the patient is agreeable for possible evaluation for aortic valve replacement with TAVR. Jamin Dewey MD
--- NOTE | 2018-01-18 17:45 | PN ---
DATE: 01/18/2018 SUBJECTIVE: The patient is seen in the dialysis unit. He is awake. He is alert. He is somewhat agitated. PHYSICAL EXAMINATION: GENERAL: Elderly male, seen in the dialysis unit. VITAL SIGNS: Blood pressure 155/89, heart rate 79, respiratory rate 18-19, temperature 97. HEENT: Normocephalic, atraumatic, positive pallor. NECK: Supple, no JVD. LUNGS: Bilateral equal air entry, bilateral equal expansion, no rales. CARDIAC: S1 and S2, regular rate and rhythm, no murmur, no rub. ABDOMEN: Soft, nondistended, nontender, bowel sounds present. EXTREMITIES: No lower extremity edema. LABORATORY DATA: WBC 7, hemoglobin 11, hematocrit 34, platelets 172. Sodium 140, potassium 3.2, chloride 101, CO2 of 26, BUN 35, creatinine 5.8, glucose 151, calcium 8.8, phosphorus 3.1, magnesium 2.2. Cultures, no growth. CURRENT MEDICATIONS: Aricept, Ativan, Colace, aspirin, MiraLax, Protonix, Renagel, Tylenol, Zofran. Flagyl discontinued. ASSESSMENT: 1. End-stage renal disease. 2. Dementia. 3. Status post gastritis? 4. Noninsulin-dependent diabetes mellitus. 5. Hypertension. 6. Coronary artery disease. PLAN: 1. Stable dialysis. 2. Use potassium 4 bath. 3. Continue current antihypertensives. 4. Discharge planning. Brinda Ibarra MD
--- NOTE | 2018-01-18 19:32 | PQF ---
PROVIDER RESPONSE TEXT: Please check with Dr. Jamin Dewey REVIEWER QUERY TEXT: Documentation Clarification Your help is requested in clarifying the following clinical documentation, if you can please further specify in the medical record and discharge summary. The patient's Clinical Indicators include: Pt admitted w/ borderline Troponin, started on IV Heparin. Was NSTEMI POA or has it been ruled out? Query created by: Dianne Felipe on 01/16/2018 11:32 AM Electronically signed by: Al Strong MD 01/18/2018 7:29 PM
[2018-01-19] MEDS: Levalbuterol 0.63 MG/3 ML Inhal Soln UD IH SCH ×4 (03:00→20:09)
[2018-01-19] MEDS: Insulin Lispro (humaLOG) MEDIUM Coverage SC SCH ×3 (07:30→16:22)
[2018-01-19] MEDS: POLYETHYLENE GLYCOL 3350 17 GM/Dose PACKET PO SCH ×2 (10:21→17:06)
--- NOTE | 2018-01-19 11:32 | PN ---
DATE: 01/19/2018 SUBJECTIVE: The patient is in bed in no acute distress. PHYSICAL EXAMINATION: VITAL SIGNS: On exam, temperature is 98, blood pressure is 160/90, respiratory rate of 20. HEENT: Examination of HEENT is unremarkable. NECK: Supple. LUNGS: Have decreased breath sounds. HEART: Normal S1, S2. ABDOMEN: Soft, nontender. LABORATORY EXAMINATION: Reveals a white count of 7.3, hemoglobin of 11, platelets of 172, BUN of 35, creatinine of 5.8 and stool C. diff is negative. ASSESSMENT AND PLAN: An 87-year-old male with advanced dementia, history of delirium, chronic renal failure on hemodialysis, coronary artery disease, myocardial infarction, gastroparesis, gastric ulcer, gastrointestinal bleed, hypertension, admitted with systemic inflammatory response syndrome, has completed antibiotics. Currently on no antibiotics. The patient is at risk for developing nosocomial infections. We will follow with you. Magdy Diego MD
--- NOTE | 2018-01-19 13:47 | PN ---
DATE: 01/19/2018 SUBJECTIVE: The patient is seen lying in bed. He is awake. He is alert. He is comfortable. He is oriented to place and person. PHYSICAL EXAMINATION: GENERAL: Elderly male sitting in bed. VITAL SIGNS: Blood pressure 160/90, heart rate 71, respiratory rate 20, temperature 98.1. HEENT: Normocephalic, atraumatic. NECK: Supple, no JVD. LUNGS: Bilateral equal air entry, bilateral equal expansion. CARDIAC: S1 and S2, regular rate and rhythm, no murmur, no rub. ABDOMEN: Soft, nondistended, nontender. Bowel sounds present. EXTREMITIES: No lower extremity edema. INTAKE AND OUTPUT: Not charted. LABORATORY DATA: No new labs. MEDICATIONS: Aricept, Ativan, Colace, Ecotrin, heparin, insulin, MiraLax, Protonix, Renagel, Zofran. ASSESSMENT: 1. Dementia, waxing and waning sensorium. 2. History of nausea, vomiting, gastritis. 3. Noninsulin-dependent diabetes mellitus. 4. Hypertension. 5. Coronary artery disease. 6. End-stage renal disease. PLAN: 1. Stable dialysis yesterday. 2. Mental status at baseline. 3. Discharge planning. Brinda Ibarra MD
[2018-01-19 15:00] VITALS: BP 134/78; PULSE 80; RESP 16; TEMP 97.3; O2SAT 98
--- NOTE | 2018-01-19 23:35 | DS ---
FINAL PROGRESS NOTE AND DISCHARGE SUMMARY HISTORY: The patient is now moved to 575, bed 1. The patient is seen in room 575, bed 1. Overnight nurse's notes were reviewed. The patient was noted by the nurses to be combative, confused, but alert, awake, responsive, refused medication, refused treatment and was found to be agitated and restless and noncompliant, not taking medications, not complying with the nurses recommendation and nurses advise. PHYSICAL EXAMINATION: VITAL SIGNS: The patient vital signs in the last 12 to 24 hours, T-max 97.1, pulse 79, blood pressure 130/79, respiration 19 and O2 sat 99%. HEENT: Head examination normocephalic and atraumatic. HEENT examination shows pinkish pale conjunctivae. Anicteric sclerae. No oropharyngeal lesion. No neck rigidity. Questionable soft carotid bruit. CHEST: Kyphosis. LUNGS: Shows no audible rales, crackles, or wheezing. CARDIOVASCULAR: S1, S2, regular rhythm. Positive systolic murmur, right second intercostal space, left second intercostal space. ABDOMEN: Soft. Positive bowel sound. GENITALIA: Male. RECTAL: Examination deferred. EXTREMITIES: Lower extremity examination shows no pitting edema, no calf tenderness, no Homans' sign. NEUROLOGIC: The patient is alert, awake, responsive, confused, disoriented, is able to move upper and lower extremity without assistance, but the patient is noted to be also agitated and uncooperative and combative. The patient has attempted to swing his fist and arms towards us. Positive left upper extremity AV fistula noted. DIAGNOSTICS: From 01/18/2018, WBC 7.3, hemoglobin/hematocrit 11.3 and 34.2 with platelet 172. Sodium 140, potassium 3.2, chloride 101, CO2 of 26, BUN 35, creatinine 5.8, glucose 151, calcium 8.8, phosphorus 3.3, and magnesium 2.2. LFTs are normal. FINAL IMPRESSION, PLAN AND DISCHARGE DIAGNOSES: 1. Systemic inflammatory response syndrome. 2. High-grade fever. 3. Leukocytosis with granulocytosis. 4. Acute exacerbation of dementia with acute exacerbation of delirium. 5. Combative behavior and possible behavioral disorder. 6. Noncompliance and poor compliance with long history of noncompliance and poor compliance. 7. Confusional disorder with acute exacerbation of delirium and dementia. 8. Constipation. 9. Questionable and possible ascending, transverse colitis versus gastroenteritis. 10. Gait dysfunction. 11. End-stage renal disease hemodialysis dependent three times a week via the left upper extremity arteriovenous fistula. 12. Normocytic anemia. 13. Hypokalemia. 14. Diabetes mellitus well controlled with hemoglobin A1c of 5.8. 15. History of cerebral infarct. 16. History of coronary artery disease and coronary angioplasty. 17. History of multiple non-ST elevation myocardial infarction. 18. Ltpvmmrd-hu-jsrgdx valvular aortic stenosis. 19. Hypertensive cardiovascular disease. 20. Right bundle-branch block. 21. hypertension. 22. Hyperlipidemia. 23. Gastroparesis. 24. Leukocytosis. 1. Systemic inflammatory response syndrome. 2. Status post high-grade fever. 3. Leukocytosis with granulocytosis. 4. Questionable nonspecific colitis of the ascending, transverse and descending colon. 5. Fecal stasis, fecal retention and constipation. 6. Leukocytosis. 7. Acute exacerbation of dementia and delirium. 8. Questionable and possible behavioral disorder secondary to exacerbation of dementia and delirium. 9. Bilateral renal cyst. 10. Cerebral cortical atrophy of the brain. 11. Microvascular ischemic disease of the brain. 12. End-stage renal disease, hemodialysis dependent three times a week via the left upper extremity arteriovenous fistula. 13. Secondary hyperparathyroidism. 14. Elevated troponin, etiology questionable versus non-ST elevation myocardial infarction. 15. History of multiple non-ST elevation myocardial infarction, history of coronary artery disease, history of coronary angioplasty and stent placement. 16. History of gastrointestinal bleeding. 17. History of constipation. 18. History of poor compliance and noncompliance with medication. 19. Gait dysfunction. 20. Deconditioning. 1. Acute exacerbation of dementia and acute delirium. 2. Self-limited colitis and gastroenteritis. 3. Acute exacerbation of dementia with questionable and possible behavioral disorders with agitation, confusion and refusing medication treatment. 4. Systemic inflammatory response syndrome. 5. Hyperprocalcitoninemia. 6. Normocytic anemia of chronic kidney disease. 7. End-stage renal disease, hemodialysis dependent via the left upper extremity arteriovenous fistula three times a week. 8. Hyperphosphatemia and secondary hyperparathyroidism. 9. Mild metabolic acidosis. 10. New onset transaminitis. 11. Ascending, transverse and descending colon colitis. 12. Possible gastroenteritis. 13. Fecal impaction, fecal retention with colonic distention. 14. Prostatomegaly. 15. Cholelithiasis. 16. Gait dysfunction. 17. Dementia. 18. Insulin-requiring diabetes mellitus, well controlled with hemoglobin A1c of 5.8. 19. History of hypertension. 20. History of diabetic gastroparesis, history of constipation, history of fecal stasis. 21. History of poor compliance. 1. Altered mental status with encephalopathy and episodic agitation and possible delirium with behavioral disorder. 2. Poor compliance and noncompliance with refusing to labs and testing and refusing to take medication. 3. History of dementia. 4. Delirium. 5. Hypertension. 6. Leukocytosis with granulocytosis. 7. Systemic inflammatory response syndrome. 8. Elevated D-dimer and end-stage renal disease patient. 9. Increased anion gap metabolic acidosis and lactic acidosis. 10. Questionable and possible non-ST elevation myocardial infarction with elevated troponin. 11. Hyperprocalcitoninemia. 12. End-stage renal disease, hemodialysis dependent three times a week via the left upper extremity AV fistula. 13. Cardiomegaly. 14. Cholelithiasis. 15. Multiple bilateral renal cyst. 16. Ascending, transverse and descending colon colitis. 17. Fecal impaction with proximal colonic distention. 18. Right inguinal hernia with nondilated small bowel loop. 19. Questionable cystitis with diffuse urinary bladder wall thickening and possible cystitis. 20. Prostatomegaly. 21. Left ventricular ejection fraction of 58%. 22. Pulmonary hypertension. Laifjjwj-fl-hdtshd pulmonary hypertension with right ventricular systolic pressure of 66 mmHg and moderate tricuspid regurgitation. 23. Concentric left ventricular hypertrophy. 24. Grade 2 pseudonormal filling dynamics. 25. Mildly dilated left and right atrium. 26. Moderate to severely calcified aortic valve. 27. Mild aortic regurgitation. 28. Zdphowim-nt-muhpcs valvular aortic stenosis. 29. Moderately thickened mitral valve. 30. Mild mitral regurgitation. 31. Moderate tricuspid regurgitation. 1. Questionable behavioral disorder with noncompliance and refusal with lab data and refusing medications and refusing treatment. 2. History of dementia with possible acute exacerbation. 3. Cholelithiasis. 4. Bilateral renal cyst. 5. Ascending, transverse colon, descending colon colitis. 6. Fecal impaction. 7. Colonic distention. 8. Right inguinal hernia. 9. Questionable cystitis with diffuse urinary bladder thickening. 10. Prostatomegaly. 11. Hypertension. 12. Systemic inflammatory response syndrome with leukocytosis, granulocytosis. 13. Normocytic anemia. 14. End-stage renal disease, hemodialysis dependent. 15. Increased anion gap metabolic acidosis and lactic acidosis. 16. History of diabetes mellitus with hemoglobin A1c of 5.8, well controlled. 17. Questionable and possible non-ST elevation myocardial infarction with elevated troponin. 18. Hyperprocalcitoninemia. 19. Deconditioning. 20. Gait dysfunction. 21. History of coronary artery disease. 22. Advanced dementia with acute exacerbation and delirium. 23. History of coronary artery disease, non-ST elevation myocardial infarction. 24. History of diabetic gastroparesis. 1. Systemic inflammatory response syndrome. 2. High-grade fever. 3. Tachycardia. 4. Leukocytosis with granulocytosis. 5. End-stage renal disease, hemodialysis dependent three times a week. 6. Questionable acute coronary syndrome and rhf-TA-etuvbzlcz myocardial infarction with elevated troponin. 7. Advanced dementia. 8. Leukocytosis with granulocytosis. 9. Elevated D-dimer of greater than 1600, etiology undetermined. 10. Increased anion gap metabolic acidosis and lactic acidosis. 11. Well-controlled diabetes mellitus with hemoglobin A1c of 5.8. 12. Hyperprocalcitoninemia. 13. 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 14. Left ventricular ejection fraction of 58%. 15. Concentric left ventricular hypertrophy. 16. Inferior wall hypokinesis with grade 2 pseudo normal filling dynamics. 17. Pulmonary hypertension with right ventricular systolic pressure of 66 mmHg. 18. Tzpnuliw-uf-ypomts valvular aortic stenosis with gmycqbqi-xk-tcgptiil calcified aortic valve. 19. Moderately thickened mitral valve. 20. Mild mitral regurgitation, mild aortic regurgitation. 21. Moderate tricuspid regurgitation with moderate to severe pulmonary hypertension with right ventricular systolic pressure of 66 mmHg. 22. Nzqalbqe-ds-ewfnmw valvular aortic stenosis. 23. 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 24. Deconditioning. 25. Gait dysfunction. 26. Systemic inflammatory response syndrome. 27. Cardiomegaly. 28. Bilateral pulmonary linear scarring. 29. Diabetic gastroparesis. 30. Advanced dementia. 31. History of coronary artery disease with coronary angioplasty. 32. Hyperlipidemia. 33. Constipation. 1. Questionable possible systemic inflammatory response syndrome with high-grade fever and tachycardia. 2. Leukocytosis with granulocytosis. 3. Normocytic anemia and anemia of chronic disease. 4. Questionable acute non-ST elevation myocardial infarction with elevated troponin. 5. Increased anion gap metabolic and lactic acidosis. 6. End-stage renal disease, hemodialysis dependent. 7. Insulin-requiring diabetes mellitus with hyperglycemia. 8. 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 9. Mild normocytic anemia. 10. History of severe noncompliance. 11. History of dementia. 12. Bilateral midlung pulmonary scarring. 13. Cardiomegaly. 14. Deconditioning. 1. Questionable systemic inflammatory response syndrome versus sepsis. 2. High-grade fever. 3. Hypertension. 4. Leukocytosis with granulocytosis. 5. Mild normocytic anemia. 6. Increased anion gap, metabolic acidosis, and lactic acidosis. 7. History of end-stage renal disease, hemodialysis dependent. 8. History of insulin-requiring diabetes mellitus, off all medications. 9. History of severe noncompliance. 10. History of advanced dementia. 11. History of gait dysfunction. PLAN: At this time, the patient's case is referred to director of social work. According to the director of social work notes and evaluation, the patient is not accepted to [facility] secondary to the patient's noncompliance with medications, treatment, etc. The patient's was updated about the patient's denial from the [facility]. The patient's is considering the patient to be taken home with her. I have met with the patient's yesterday at length. I have explained to the patient's about the patient's condition, diagnosis, all treatment options, diagnostic therapeutic intervention options, discharge planning options. The patient's was met with director of social work case management personnel also who were present during this conversation with the patient's . The patient's understands and acknowledges overall the patient's decompensated declining status and the patient's need for 24 hours care and supervision. I have explained to the patient's extensively. All questions concerned answered to her satisfaction. At present, the plan is, the patient will be considered for discharge to correction or long-term placement if accepted; otherwise, the patient will be discharged home with the patient's family and the to provide the 24 hours care and supervision for the patient with referral to [facility] aid home PT. The patient's discharge medications will be as per the new prescriptions which are being electronically submitted to the patient's pharmacy, and the prescription will then be given to the patient's upon discharge. During this hospitalization, the patient's was extensively on multiple occasions explained about the patient's overall declining decompensated status and all the diagnostic therapeutic testing intervention were explained to the patient's on multiple occasions and all questions concerned answered. Time spent in the discharge process 45 minutes. Dictated and electronically signed, not read. Zeyad Nazario MD MTDD
== END 2018-01-19 22:38 | DRG 871 ==
LOC: ED 17:45 → ERH 20:04 → 2RSO 23:11 → 5RSO 01-18 17:05
PROVIDERS: ADMIT Internal Medicine; ATTEND Internal Medicine
PROC: 5A1D70Z Performance of Urinary Filtration, Intermittent, Less than 6 Hours Per Day (ICD-10-PCS; principal; 2018-01-13)
PROC: 5A1D70Z Performance of Urinary Filtration, Intermittent, Less than 6 Hours Per Day (ICD-10-PCS; 2018-01-16)
PROC: 5A1D70Z Performance of Urinary Filtration, Intermittent, Less than 6 Hours Per Day (ICD-10-PCS; 2018-01-18)
DX: A41.9 Sepsis, unspecified organism (principal); N18.6 End stage renal disease; I21.4 Non-ST elevation (NSTEMI) myocardial infarction; G92 Toxic encephalopathy; I12.0 Hypertensive chronic kidney disease with stage 5 chronic kidney disease or end stage renal disease; E87.2 Acidosis; I50.20 Unspecified systolic (congestive) heart failure; I13.2 Hypertensive heart and chronic kidney disease with heart failure and with stage 5 chronic kidney disease, or end stage renal disease; F05 Delirium due to known physiological condition; N25.81 Secondary hyperparathyroidism of renal origin; K50.10 Crohn's disease of large intestine without complications; I45.2 Bifascicular block; Z86.73 Personal history of transient ischemic attack (TIA), and cerebral infarction without residual deficits; Z85.028 Personal history of other malignant neoplasm of stomach; N40.0 Benign prostatic hyperplasia without lower urinary tract symptoms; Z99.2 Dependence on renal dialysis; E11.22 Type 2 diabetes mellitus with diabetic chronic kidney disease; I25.10 Atherosclerotic heart disease of native coronary artery without angina pectoris; Z95.5 Presence of coronary angioplasty implant and graft; F03.90 Unspecified dementia, unspecified severity, without behavioral disturbance, psychotic disturbance, mood disturbance, and anxiety; R11.10 Vomiting, unspecified; Z79.4 Long term (current) use of insulin; E11.43 Type 2 diabetes mellitus with diabetic autonomic (poly)neuropathy; Z87.891 Personal history of nicotine dependence; Z91.19 Patient's noncompliance with other medical treatment and regimen; D64.9 Anemia, unspecified; K56.41 Fecal impaction; K52.9 Noninfective gastroenteritis and colitis, unspecified; K31.84 Gastroparesis; E11.65 Type 2 diabetes mellitus with hyperglycemia; R00.0 Tachycardia, unspecified; I27.20 Pulmonary hypertension, unspecified; I72.4 Aneurysm of artery of lower extremity; R41.89 Other symptoms and signs involving cognitive functions and awareness; D63.1 Anemia in chronic kidney disease; E83.39 Other disorders of phosphorus metabolism; R26.9 Unspecified abnormalities of gait and mobility; Z91.14 Patient's other noncompliance with medication regimen; I25.2 Old myocardial infarction; I08.3 Combined rheumatic disorders of mitral, aortic and tricuspid valves; D12.3 Benign neoplasm of transverse colon; E78.5 Hyperlipidemia, unspecified; E87.6 Hypokalemia; H40.9 Unspecified glaucoma; I11.9 Hypertensive heart disease without heart failure; I45.10 Unspecified right bundle-branch block; K40.90 Unilateral inguinal hernia, without obstruction or gangrene, not specified as recurrent; K57.90 Diverticulosis of intestine, part unspecified, without perforation or abscess without bleeding; K80.20 Calculus of gallbladder without cholecystitis without obstruction; N28.1 Cyst of kidney, acquired; R79.1 Abnormal coagulation profile; Z53.20 Procedure and treatment not carried out because of patient's decision for unspecified reasons; Z79.82 Long term (current) use of aspirin; Z79.899 Other long term (current) drug therapy; Z86.010 Personal history of colon polyps; Z87.01 Personal history of pneumonia (recurrent); Z87.11 Personal history of peptic ulcer disease; Z90.49 Acquired absence of other specified parts of digestive tract

== ENCOUNTER 2018-03-10 11:02 | Inpatient (IN) | payer MEDICARE, BC ==
[2018-03-10 11:02] VITALS: BMI 26.6
[2018-03-10] MEDS ORDERED: Albuterol 0.083% Inhal Sol (2.5 mg/3 mL) UD INH STA (11:17)
--- NOTE | 2018-03-10 11:22 | ED PDOC ---
Arrival/HPI - General Time Seen by Provider: 03/10/18 11:06 Historian: Spouse - History of Present Illness Narrative History of Present Illness (Text): An 87 year old male, whose past medical history includes, ESRD on HD (M/W/F) w/ LUE AV fistula, CAD with stents, history of GI bleeds, CVA, Gastric cancer, Mitral valve prolapse, DM, HTN, BPH and dementia, presents to the emergency department for further evaluation of generalized weakness and mild shortness of breath. As per the patient's , patient was [facility]. Since then, she reports the patient has not been eating, drinking, and refusing to take his medication. Patient refused his dialysis treatment 3 days ago and is due for treatment today. denies any unilateral weakness or slurred speech. she denies any acute change in AMS over the past 24 hours. No fall or trauma. No vomiting. No rash. No neck stiffness. No constipation. Patient ROS/ HPI limited due to patient's dementia. PMD: Dr. Nazario Nephrology: Dr. Ibarra 03/10/18 11:40 Time/Duration: Other (4 Days) Symptom Onset: Sudden Symptom Course: Unchanged Activities at Onset: Rest, Light Context: Home Past Medical History - Provider Review Nursing Documentation Reviewed: Yes - Infectious Disease Hx of Infectious Diseases: None - Tetanus Immunization Tetanus Immunization: Unknown - Cardiac Hx Cardiac Disorders: Yes (CAD with stenting) Hx Hypertension: Yes - Pulmonary Hx Respiratory Disorders: Yes (H/O OF SMOKING CIGARETTES.QUIT) - Neurological HX Cerebrovascular Accident: Yes - HEENT Hx HEENT Disorder: Yes (WEARS RX GLASSES) Hx Cataracts: Yes (b/l) Hx Glaucoma: Yes Other/Comment: hx of epistaxix - Renal Hx Renal Failure: Yes - Endocrine/Metabolic Hx Diabetes Mellitus Type 2: Yes - Hematological/Oncological Hx Blood Disorders: Yes (LOWER GI BLEED) - Integumentary Hx Dermatological Disorder: No - Musculoskeletal/Rheumatological Hx Falls: Yes - Gastrointestinal Hx Gastrointestinal Disorders: Yes (gastric ca,colon polyps,constipation,gastroparesis,gi bleed) - Genitourinary/Gynecological Hx Genitourinary Disorders: Yes (esrd on hd) Hx Reproductive Disorders: Yes (BPH) - Psychiatric Hx Psychophysiologic Disorder: No Hx Substance Use: No Other/Comment: dimentia - Surgical History Hx Cholecystectomy: Yes Hx Coronary Stent: Yes (x1) Other/Comment: AV shunt placement.left forearm - Anesthesia Hx Anesthesia: Yes Hx Anesthesia Reactions: No Hx Malignant Hyperthermia: No - Suicidal Assessment Feels Threatened In Home Enviroment: No Family/Social History - Physician Review Nursing Documentation Reviewed: Yes Family/Social History: No Known Family HX Smoking Status: Unknown If Ever Smoked Hx Alcohol Use: No Hx Substance Use: No Hx Substance Use Treatment: No Allergies/Home Meds Allergies/Adverse Reactions: Allergies No Known Allergies Allergy (Verified 04/30/17 18:39) Home Medications: Home Meds Medication Instructions Recorded Confirmed Insulin Detemir [Levemir] 5 units SC DAILY 03/10/18 03/10/18 Review of Systems - Physician Review All systems were reviewed & negative as marked: Yes - Review of Systems Systems not reviewed;Unavailable: Dementia Physical Exam Vital Signs Reviewed: Yes Vital Signs Pulse Resp BP Pulse Ox 03/10/18 11:05 64 19 143/25 L 99 Blood Pressure: Normal Pulse: Regular Respiratory Rate: Normal Appearance: Positive for: Non-Toxic, Comfortable Pain Distress: None - Systems Exam Head: Present: Atraumatic, Normocephalic Pupils: Present: PERRL, Other (Eyes: Tracking appropriately.) Extroacular Muscles: Present: EOMI Conjunctiva: Present: Normal Mouth: Present: Moist Mucous Membranes Neck: Present: Normal Range of Motion. No: Meningeal Signs Respiratory/Chest: Present: Good Air Exchange, Other (Mild crackles bilaterally at the bases). No: Respiratory Distress, Accessory Muscle Use Cardiovascular: Present: Regular Rate and Rhythm, Normal S1, S2. No: Murmurs Abdomen: No: Tenderness, Distention, Peritoneal Signs Back: Present: Normal Inspection. No: CVA Tenderness, Midline Tenderness Upper Extremity: Present: Other (Left AV fistula. Good thrill. Good bruit). No: Cyanosis, Edema Lower Extremity: Present: Normal Inspection. No: Edema Neurological: Present: GCS=15, Speech Normal (no slurring noted), Motor Func Grossly Intact, Normal Sensory Function Skin: Present: Warm, Dry, Normal Color. No: Rashes Psychiatric: Present: Alert (at his baseline alertness per family. ), Normal Insight, Normal Concentration Medical Decision Making ED Course and Treatment: 03/10/18 11:25 Impression: An 87 year old male presents to the emergency department for further evaluation of generalized weakness and mild shortness of breath. No unilateral weakness. No slurred speech. Per bedside pt has not been acting like himself over ~4d, since he does not want to eat, and did not want dialysis. No cough. No rash. No neck stiffness. No meningeal signs. Does not make urine at baseline. No abdominal tenderness or pain. No dark or bloody stool. Likely electrolyte changes w/ resultant metabolic encephalopathy. Plan: -- EKG -- Chest X-ray -- Labs -- Blood Culture -- Albuterol, Dextrose -- Reassess and disposition Prior Visits: Notes and results from previous visits were reviewed. Progress Notes: EKG: Ordered, reviewed, and independently interpreted the EKG. Rate : 60 BPM Rhythm : NSR Interpretation : No STEMI. QRS Wide. HyperKalemia likely given missed dialysis + EKG changes. 03/10/18 12:02: Case discussed with Dr. Jorge Nazario (PMD) who will come evaluate the patient in the emergency department. Calcium ordered d50 x2 ordered and insulin albuterol ordered. 03/10/18 12:10: K 7.3 Lactic 10 Abx ordered, fluids held 2/2 dialysis upcoming + complaint of SOB. Case discussed with Dr. Ibarra (Steam Trap Worker) who will see the patient. Pt require urgent dialysis 03/10/18 12:30: Pending ICU to see. Pt in NAD. 03/10/18 13:11: WBC 17k: code sepsis called. Chem hemolyzed: to be redrawn. Given SOB, EKG changes c/w Hyper K, Hyper K in VBG and ABG: to continue w/ dialysis. Seen by ICU: Dr. Jimenez: No indication for ICU at this time given dialysis to be done: To be reconsulted PRN. Dialysis being done bedside - Lab Interpretations I have reviewed the lab results: Yes - RAD Interpretation Narrative RAD Interpretations (Text): Chest X-ray Signed By: Torsten Moe MD Date Signed: 03/10/18 1221 IMPRESSION: Persistent pulmonary vascular congestion which is modestly improved compared to the prior study. - EKG Interpretation Interpreted by ED Physician: Yes Type: 12 lead EKG - Medication Orders Current Medication Orders: Albuterol Sulfate (Albuterol 0.083% Inhal Chiquita (2.5 Mg/3 Ml) Ud) 2.5 mg INH STAT STA Stop: 03/10/18 11:18 Calcium Gluconate 1,000 mg/ (Dextrose) 110 mls @ 110 mls/hr IVPB ONCE ONE Stop: 03/10/18 12:16 - Scribe Statement The provider has reviewed the documentation as recorded by the Scribe Jessenia Wynne Provider Scribe Attestation: All medical record entries made by the Scribe were at my direction and persona lly dictated by me. I have reviewed the chart and agree that the record accurately reflects my personal performance of the history, physical exam, medical decision making, and the department course for this patient. I have also personally directed, reviewed, and agree with the discharge instructions and disposition. Disposition/Present on Arrival - Present on Arrival Any Indicators Present on Arrival: No History of DVT/PE: No History of Uncontrolled Diabetes: No Urinary Catheter: No History of Decub. Ulcer: No History Surgical Site Infection Following: None - Disposition Have Diagnosis and Disposition been Completed?: Yes Diagnosis: Hyperkalemia Disposition Time: 12:32 Patient Problems: Current Active Problems Problem Status Onset Hyperkalemia Acute Condition: GUARDED Referrals: Zeyad Nazario MD [Primary Care Provider] - Follow up with primary
[2018-03-10] MEDS ORDERED: Dextrose 50% SYRINGE Inj (50 ml) IVP STA ×2 (11:24→11:50)
[2018-03-10 11:41] LABS: BASO # 0.01 K/mm3 (0.0-2.0); BASO % 0.1 % (0.0-3.0); GRAN # 14.34 (1.4-6.5); GRAN % 83.5 % (50.0-68.0); HEMOGLOBIN 11.4 g/dL (14.0-18.0); LYMPH # 1.2 (1.2-3.4); LYMPH % 7.2 % (22.0-35.0); MEAN CELL VOLUME 95.2 fl (80.0-105.0); MEAN CORPUSCULAR HEMOGLOBIN 30.4 pg (25.0-35.0); MEAN CORPUSCULAR HGB CONC 31.9 g/dl (31.0-37.0); MONO # 1.6 (0.1-0.6); MONO % 9.2 % (1.0-6.0); PLATELET COUNT 161 10^3/uL (120.0-450.0); RBC 3.75 10^6/uL (3.5-6.1); RED CELL DISTRIBUTION WIDTH 19.6 % (11.5-14.5); WHITE BLOOD COUNT 17.2 10^3/uL (4.5-11.0)
[2018-03-10 11:43] LABS: ARTERIAL BLOOD GAS HCO3 10.9 mmol/L (21-28); ARTERIAL BLOOD GAS O2 SAT 99.8 % (95-98); ARTERIAL BLOOD GAS PH 7.39 (7.35-7.45); ARTERIAL BLOOD GAS TCO2 11.5 mmol.L (22-28)
[2018-03-10 11:45] LABS: VENOUS BLOOD GAS BASE EXCESS -13.6 mmol/L (0.0-2.0); VENOUS BLOOD GAS PO2 33 mm/Hg (30-55); VENOUS BLOOD PH 7.21 (7.32-7.43)
[2018-03-10] MEDS ORDERED: Albuterol 0.5% Inhal Sol (2.5 mg/0.5 ml) UD IH STA (11:50)
[2018-03-10 11:55] LABS: ARTERIAL BLOOD GAS PCO2 18 mm/Hg (35-45)
[2018-03-10] MEDS ORDERED: Insulin Regular 1 UNITS/0.01 ML ML IV ONE (11:55)
[2018-03-10] MEDS ORDERED: Piperacillin/Tazobact 3.375 gm 100 ML IVPB STA (12:05)
[2018-03-10] MEDS ORDERED: Vancomycin 1gm in NS 250ml 1 GM/250 ML BAG IVPB STA ×2 (12:06→13:05)
[2018-03-10] MEDS ORDERED: Albuterol 0.5% Inhal Sol (5 mg/ ml) 20 ml IH STA (12:08)
--- NOTE | 2018-03-10 12:25 | RAD ---
Date of service: 03/10/2018 HISTORY: Shortness of breath COMPARISON: 01/12/2018 FINDINGS: LUNGS: Improving pulmonary vascular congestion. PLEURA: No significant pleural effusion identified, no pneumothorax apparent. CARDIOVASCULAR: Stable cardiomegaly Atherosclerotic calcifications identified primarily aortic arch. OSSEOUS STRUCTURES: No significant abnormalities. VISUALIZED UPPER ABDOMEN: Normal. OTHER FINDINGS: None. IMPRESSION: Persistent pulmonary vascular congestion which is modestly improved compared to the prior study.
--- NOTE | 2018-03-10 13:17 | CP.PCM.CON ---
History of Present Illness - History of Present Illness History of Present Illness: Critical Care Consult 87 year old male, whose past medical history includes, ESRD on HD (M/W/F) w/ LUE AV fistula, CAD with stents, history of GI bleeds, CVA, Gastric cancer, Mitral valve prolapse, DM, HTN, BPH and dementian comes into ED with lethargy after having missed his HD x last 2 sessions. In ED he was found to have a K of 7.3 on ABG with Lac fo 10. No resp distress. Normotensive. CXR shows pulm vasc congestion. PMHX : as above Allx NKDA Meds: as per EMR Social hx: no etoh, no smoking ROS as above Past Patient History - Infectious Disease Hx of Infectious Diseases: None - Tetanus Immunizations Tetanus Immunization: Unknown - Past Medical History & Family History Past Medical History?: Yes - Past Social History Smoking Status: Unknown If Ever Smoked - CARDIAC Hx Cardiac Disorders: Yes (CAD with stenting) Hx Hypertension: Yes - PULMONARY Hx Respiratory Disorders: Yes (H/O OF SMOKING CIGARETTES.QUIT) - NEUROLOGICAL HX Cerebrovascular Accident: Yes - HEENT Hx HEENT Problems: Yes (WEARS RX GLASSES) Hx Cataracts: Yes (b/l) Hx Glaucoma: Yes Other/Comment: hx of epistaxix - RENAL Hx Renal Failure: Yes - ENDOCRINE/METABOLIC Hx Diabetes Mellitus Type 2: Yes - HEMATOLOGICAL/ONCOLOGICAL Hx Blood Disorders: Yes (LOWER GI BLEED) - INTEGUMENTARY Hx Dermatological Problems: No - MUSCULOSKELETAL/RHEUMATOLOGICAL Hx Falls: Yes - GASTROINTESTINAL Hx Gastrointestinal Disorders: Yes (gastric ca,colon polyps,constipation,gastroparesis,gi bleed) - GENITOURINARY/GYNECOLOGICAL Hx Genitourinary Disorders: Yes (esrd on hd) Hx Reproductive Disorders: Yes (BPH) - PSYCHIATRIC Hx Psychophysiologic Disorder: No Hx Substance Use: No Other/Comment: dimentia - SURGICAL HISTORY Hx Cholecystectomy: Yes Hx Coronary Stent: Yes (x1) Other/Comment: AV shunt placement.left forearm - ANESTHESIA Hx Anesthesia: Yes Hx Anesthesia Reactions: No Hx Malignant Hyperthermia: No Meds Allergies/Adverse Reactions: Allergies Allergy/AdvReac Type Severity Reaction Status Date / Time No Known Allergies Allergy Verified 04/30/17 18:39 - Medications Medications: Current Medications Calcium Gluconate 1,000 mg/ (Dextrose) 110 mls @ 110 mls/hr IVPB ONCE ONE Stop: 03/10/18 13:29 Vancomycin HCl (Vancomycin 1gm) 1 gm in 250 mls @ 167 mls/hr IVPB STAT STA; Protocol Stop: 03/10/18 13:35 Physical Exam - Constitutional Appears: Non-toxic, No Acute Distress - Head Exam Head Exam: ATRAUMATIC, NORMAL INSPECTION, NORMOCEPHALIC - Eye Exam Eye Exam: EOMI, Normal appearance, PERRL Pupil Exam: NORMAL ACCOMODATION, PERRL - Neck Exam Neck exam: Positive for: Normal Inspection - Respiratory Exam Respiratory Exam: Clear to Auscultation Bilateral. absent: Accessory Muscle Use - Cardiovascular Exam Cardiovascular Exam: REGULAR RHYTHM - GI/Abdominal Exam GI & Abdominal Exam: Normal Bowel Sounds, Soft. absent: Tenderness - Neurological Exam Neurological exam: Alert Results - Vital Signs Recent Vital Signs: Last Vital Signs Temp Pulse 64 03/10/18 11:05 Resp 19 03/10/18 11:05 BP 143/25 L 03/10/18 11:05 Pulse Ox 99 03/10/18 11:05 - Labs Result Diagrams: 03/10/18 11:31 Labs: Laboratory Results - last 24 hr 03/10/18 03/10/18 03/10/18 11:08 11:31 11:31 WBC 17.2 H RBC 3.75 Hgb 11.4 L Hct 35.7 L MCV 95.2 D MCH 30.4 MCHC 31.9 RDW 19.6 H Plt Count 161 Gran % 83.5 H Lymph % (Auto) 7.2 L [place] % (Auto) 9.2 H Eos % (Auto) 0.0 L Baso % (Auto) 0.1 Gran # 14.34 H Lymph # (Auto) 1.2 [place] # (Auto) 1.6 H Eos # (Auto) 0.0 Baso # (Auto) 0.01 pCO2 pO2 33 HCO3 ABG pH ABG Total CO2 ABG O2 Saturation ABG Base Excess ABG Potassium VBG pH 7.21 L VBG pCO2 33.0 L VBG HCO3 13.2 L VBG Total CO2 14.2 L VBG O2 Sat (Calc) 52.1 VBG Base Excess -13.6 L VBG Potassium 8.0 H* Sodium 137.0 Chloride 99.0 Glucose 81 Lactate 11.7 H* FiO2 21.0 POC Glucose (mg/dL) 64 L Arterial Blood Potassium Venous Blood Potassium 8.0 H* 03/10/18 11:35 WBC RBC Hgb Hct MCV MCH MCHC RDW Plt Count Gran % Lymph % (Auto) [place] % (Auto) Eos % (Auto) Baso % (Auto) Gran # Lymph # (Auto) [place] # (Auto) Eos # (Auto) Baso # (Auto) pCO2 18 L* pO2 119.0 H HCO3 10.9 L ABG pH 7.39 ABG Total CO2 11.5 L ABG O2 Saturation 99.8 H ABG Base Excess -11.5 L ABG Potassium 7.3 H* VBG pH VBG pCO2 VBG HCO3 VBG Total CO2 VBG O2 Sat (Calc) VBG Base Excess VBG Potassium Sodium 137.0 Chloride 101.0 Glucose 75 Lactate 10.4 H* FiO2 21.0 POC Glucose (mg/dL) Arterial Blood Potassium 7.3 H* Venous Blood Potassium Assessment & Plan - Assessment and Plan (Free Text) Assessment: A/P: 87 M with ESRD on HD (M/W/F) w/ LUE AV fistula, CAD with stents, history of GI bleeds, CVA, Gastric cancer, Mitral valve prolapse, DM, HTN, BPH and dementia in the ED after missing his last 2 HD sessions found to be hyperK with pulm vasc congestion suggestive of complications from missed HD. Nephro consulted, HD being set up in the ED during my interview. He is not in distress, not SOB, no CP. Hemodynamically stable. He can likely be managed out of the ICU once he gets his HD which should normalize his electrolytes and relieves his vasc congestions. If any complications during or after HD, please re-call ICU Would recommend repeat labs (chem and lac) post HD work up elevated lac (type B? meds?) - no sings of sepsis at this time Alvarado Jimenez MD MICU Attending
[2018-03-10 13:53] LABS: ALB/GLOB RATIO 0.9 (1.1-1.8); ALBUMIN 3.7 g/dL (3.0-4.8); CALCIUM 8.3 mg/dL (8.4-10.5)
[2018-03-10 14:04] LABS: TROPONIN I 0.09 ng/mL
[2018-03-10 15:41] LABS: VENOUS BLOOD GAS BASE EXCESS 3.7 mmol/L (0.0-2.0); VENOUS BLOOD GAS PO2 194 mm/Hg (30-55); VENOUS BLOOD PH 7.52 (7.32-7.43)
--- NOTE | 2018-03-10 18:54 | CARD ---
APPROVED REPORT Date of service: 03/10/2018 EKG Measurement Heart [id number] <Conclusion> Atrial fibrillation RBBB Nonspecific Intraventricular conduction delay Abnormal ECG
[2018-03-10] MEDS ORDERED: Dextrose 50% SYRINGE Inj (50 ml) IV PRN (19:03)
[2018-03-10] MEDS: Levalbuterol 0.63 MG/3 ML Inhal Soln UD IH SCH (20:50)
[2018-03-10 20:53] LABS: BASO # 0.02 K/mm3 (0.0-2.0); BASO % 0.1 % (0.0-3.0); GRAN # 11.33 (1.4-6.5); GRAN % 81.7 % (50.0-68.0); HEMOGLOBIN 10.7 g/dL (14.0-18.0); LYMPH # 1.5 (1.2-3.4); LYMPH % 10.9 % (22.0-35.0); MEAN CELL VOLUME 92.8 fl (80.0-105.0); MEAN CORPUSCULAR HEMOGLOBIN 29.8 pg (25.0-35.0); MEAN CORPUSCULAR HGB CONC 32.1 g/dl (31.0-37.0); MEAN PLATELET VOLUME 10.8 fl (7.0-11.0); MONO % 7.3 % (1.0-6.0); RBC 3.59 10^6/uL (3.5-6.1); RED CELL DISTRIBUTION WIDTH 18.7 % (11.5-14.5); WHITE BLOOD COUNT 13.9 10^3/uL (4.5-11.0)
[2018-03-10 20:54] LABS: ALB/GLOB RATIO 0.8 (1.1-1.8); ALBUMIN 3.4 g/dL (3.0-4.8); CALCIUM 8.4 mg/dL (8.4-10.5)
[2018-03-10 21:23] LABS: TROPONIN I 0.13 ng/mL
[2018-03-10] MEDS: Sod Polystyrene Sulf 15 gm/60 ml Susp PO SCH (21:42)
--- NOTE | 2018-03-10 22:17 | CON ---
DATE: 03/10/2018 REASON FOR CONSULTATION: Hyperkalemia, missed dialysis treatment, EKG changes, sepsis. HISTORY OF PRESENTING ILLNESS: An 87-year-old male known to me from outpatient hemodialysis. The patient was brought in because of confusion, shortness of breath. The patient was taken to outpatient dialysis on Tuesday but he refused to be dialyzed. No history of any fever, chills. No history of any cough. Mild shortness of breath. Lethargy. In the emergency room, he is found to have a potassium of 7.4. He is also found to have an elevated WBC count of 17,000, elevated procalcitonin of 10. EKG showed peaked T waves. Consultation is requested for urgent dialysis/hyperkalemia. PAST MEDICAL AND SURGICAL HISTORY: NIDDM, hypertension, ESRD, CAD, PTCA and stents, GI bleed, mitral valve prolapse, BPH, dementia, anemia of chronic kidney disease and remote history of gastric cancer. FAMILY HISTORY: Noncontributory. SOCIAL HISTORY: No smoking, no alcohol use, no IV drug abuse. ALLERGIES: NO KNOWN DRUG ALLERGIES. MEDICATIONS AT HOME: Insulin, thiamine, Renagel, Aricept, Ecotrin. REVIEW OF SYSTEMS: Currently, the patient is unable to cooperate with systems review. He seems somewhat lethargic, although he is awake and alert. . PHYSICAL EXAMINATION: GENERAL: Elderly male lying in bed in the ER, does not appear to be in any kind of acute distress. VITAL SIGNS: Blood pressure 146/85, heart rate 95, respiratory rate 18-20, temperature 98.5. HEENT: Normocephalic, atraumatic, positive pallor. NECK: Supple, no JVD. LUNGS: Bilateral equal air entry, bilateral equal expansion, no rales. CARDIAC: S1, S2, regular rate and rhythm, no murmur, no rub. ABDOMEN: Soft, nondistended, nontender, bowel sounds present. EXTREMITIES: No lower extremity edema. LABORATORY DATA: WBC 17, hemoglobin 11, hematocrit 35.7, platelets 161, polys 84%. Sodium 138, potassium 6.3, chloride 102, CO2 of 13, BUN 69, creatinine 10.5, glucose 187, calcium 8.3, phosphorus 7.3, magnesium 2.4, total bili 1.4, AST 2835, ALT 1803. BNP 141,000. Albumin 3.7. MEDICATIONS: The patient received albuterol 10 mg via nebulizer, calcium gluconate 1 g x2 doses, D50 one amp, IV insulin 10 units, vancomycin 1 g, Zosyn 3.375 g. ASSESSMENT: 1. Severe hyperkalemia secondary to missed dialysis treatments. 2. Volume overload. 3. Leukocytosis. 4. ? Sepsis. 5. End-stage renal disease. 6. Non-insulin dependent diabetes mellitus. 7. Hypertension. 8. Dementia. PLAN: 1. Urgent dialysis. 2. Panculture. 3. Agree with empiric antibiotics. 4. Check phosphorus levels. Brinda Ibarra MD
[2018-03-11] MEDS: Sod Polystyrene Sulf 15 gm/60 ml Susp PO SCH (00:36)
[2018-03-11] MEDS: MEROPENEM 500 MG in NS 500 MG/50 ML BAG IVPB SCH ×3 (00:40→22:39)
[2018-03-11] MEDS: Levalbuterol 0.63 MG/3 ML Inhal Soln UD IH SCH ×4 (03:00→19:36)
[2018-03-11 03:49] LABS: ALB/GLOB RATIO 0.8 (1.1-1.8); ALBUMIN 2.8 g/dL (3.0-4.8); BILIRUBIN,DIRECT 1.4 mg/dL (0.0-0.4); CALCIUM 7.9 mg/dL (8.4-10.5)
[2018-03-11 04:11] LABS: TROPONIN I 0.14 ng/mL
[2018-03-11] MEDS: Pantoprazole 40 mg EC Tab PO SCH (05:18)
[2018-03-11 06:34] LABS: EOS % 0.2 % (1.5-5.0); GRAN # 9.2 (1.4-6.5); GRAN % 83.2 % (50.0-68.0); HEMOGLOBIN 9.8 g/dL (14.0-18.0); LYMPH # 1.2 (1.2-3.4); LYMPH % 11.2 % (22.0-35.0); MEAN CELL VOLUME 92.4 fl (80.0-105.0); MEAN CORPUSCULAR HEMOGLOBIN 29.7 pg (25.0-35.0); MEAN CORPUSCULAR HGB CONC 32.1 g/dl (31.0-37.0); MONO # 0.6 (0.1-0.6); MONO % 5.4 % (1.0-6.0); RBC 3.3 10^6/uL (3.5-6.1); RED CELL DISTRIBUTION WIDTH 18.6 % (11.5-14.5); WHITE BLOOD COUNT 11.1 10^3/uL (4.5-11.0)
[2018-03-11] MEDS: Insulin Lispro (humaLOG) MEDIUM Coverage SC SCH ×3 (08:12→16:49)
[2018-03-11] MEDS ORDERED: DiphenhydrAMINE 50 mg/ml Inj IM ONE (09:05)
--- NOTE | 2018-03-11 10:40 | PN ---
DATE: 03/11/2018 SUBJECTIVE: The patient is admitted to 261, bed 1. The patient was yesterday seen in the emergency room, bed 5. Last 24 hours events noted. The patient underwent dialysis with removal of more than 2 liters of fluid. The patient was treated in the emergency room for hyperkalemia, potassium of greater than 7. The patient was seen and evaluated by the ICU team. The patient was not accepted to ICU and was admitted to telemetry. Overnight nurse's notes were reviewed. The patient was found to be episodically confused and disoriented. OBJECTIVE: VITAL SIGNS: T-max 98.4. Telemetry shows normal sinus rhythm, pulse 79-86, blood pressure 113/64 and 108/69, respiration 18, O2 sat 99%. HEENT: Head is normocephalic, atraumatic. Eyes; shows pinkish pale conjunctivae. Anicteric sclerae. No oropharyngeal lesion. NECK: No neck rigidity. CHEST: Kyphosis. LUNGS: Shows positive rhonchi bilaterally, right more than the left. CARDIOVASCULAR: S1, S2, regular rhythm. Questionable soft systolic murmur left sternal border, right second intercostal space, left second intercostal space. ABDOMEN: Soft. Positive bowel sound. GENITALIA: Male. RECTAL: Deferred. EXTREMITIES: Shows positive left upper extremity AV fistula, positive thrill. Lower extremity shows no pitting edema, no calf tenderness, no Homans' sign. NEUROLOGIC: The patient is alert, awake, responsive, confused, disoriented. MUSCULOSKELETAL: As per the body mass index. Gait examination is not tested. VASCULAR: Palpable pulses of the lower extremity and upper extremity. DIAGNOSTICS: CBC from late night yesterday WBC is down to 13.9, hemoglobin/hematocrit 10.7/33.3, platelet 108. Granulocytes 82% segs. Lactic acid has been trending downward 11.7, 10.4, 3.7. CBC from this morning; WBC is down to 11.1 from greater than 17,000, hemoglobin/hematocrit 9.8/30.5, platelet 118. Granulocytes 83% segs. pending. Sodium 137, potassium is down to 4.3, chloride 102, CO2 of 28, BUN 37, creatinine 5.4, glucose 71, calcium 7.9, phosphorus 7.3, total bili 1.7, direct bili 1.4, AST 1197 down from greater than 2000, ALT is 1228, troponin I is 0.13, 0.14, 0.15. Chest x-ray was done yesterday which shows pulmonary vascular congestion increased vascular marking. EKG which was done yesterday, today's EKG is pending shows questionable atrial fibrillation, white complex possible idioventricular rhythm with right bundle-branch block, left anterior hemiblock, bifascicular block. IMPRESSION: 1. Acute symptomatic hyperkalemia with EKG changes. 2. Questionable systemic inflammatory response syndrome versus sepsis with leukocytosis and granulocytosis. 3. Lactic acidosis. 4. Normocytic anemia. 5. Thrombocytopenia. 6. Granulocytosis. 7. History of dementia with confusion and encephalopathy. 8. Status post non-hemolyzed severe symptomatic hyperkalemia. 9. Hyperphosphatemia with secondary hyperparathyroidism. 10. Hyperbilirubinemia. 11. Severe transaminitis. 12. History of cholelithiasis. 13. Elevated troponin, etiology undetermined versus questionable acute non-ST elevation myocardial infarction. 14. Questionable transient atrial fibrillation versus idioventricular white complex rhythm. 15. Right bundle-branch block. 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 17. Bifascicular block. 18. Possible congestive heart failure and volume overload and pulmonary vascular congestion secondary to missed hemodialysis sessions x2. 19. History of dementia. 20. History of multiple myocardial infarction and history of for coronary artery disease. 21. End-stage renal disease, hemodialysis dependent. 22. History of gastrointestinal bleeding. 23. History of cerebral infarct. 24. History of poor compliance and noncompliance. 25. Severe deconditioning. PLAN: At this time, patient is being started on broad-spectrum IV antibiotics. Ultrasound of the abdomen HIDA scan has been ordered. The patient has been ordered repeat daily labs. CONSULTATIONS: Infectious Disease, Cardiology, Nephrology, and Gastroenterology has been requested. The patient will be ordered repeat chest x-ray. The patient's lab data will be monitored on a regular basis. The patient has been started on both GI, DVT prophylaxis. The patient has been started on broad-spectrum IV antibiotic with doxycycline 100 IV every 12 hours and meropenem 500 IV every 12 hours. The patient has been ordered nebulizer treatment. The patient has been ordered Aricept 5 mg at bedtime. The patient is started on sliding scale insulin coverage a.c. and at bedtime. The patient is on renal diet. The patient has been ordered out of bed to chair, physical therapy, occupational therapy, ambulation therapy, TCU evaluation. The patient's condition overall guarded to poor prognosis decompensated declining status and medical condition and decompensated overall medical condition, neurological condition was discussed and explained to the patient's Alma, who I met yesterday extensively. I have explained to the patient's about overall guarded to poor prognosis. The patient's is thinking about consideration for possible long-term placement and hospice. I have advised the patient's to contact the [employer] regarding above options. The patient's was also advised to provide us with a copy of the living will advance directive if the patient has. The patient's further management will be dependent upon the patient's clinical condition, hemodynamic status and as per the patient response to therapeutic intervention as per the patient's diagnostic test results and as per recommendation by all the physician involved the care of the patient. Dictated and electronically signed, not read. Zeyad Nazario MD
--- NOTE | 2018-03-11 13:23 | CON ---
DATE OF CONSULTATION: 03/11/2018 HISTORY: The patient is an 87-year-old male who was recently discharged from [facility] with decreased appetite, failure to thrive, and occasional shortness of breath. Currently, the patient is without shortness of breath and without chest pain. The patient's past medical history includes end-stage renal disease in which the patient has refused dialysis over the past several days. In addition, the patient suffers from CAD in the past. No angina noted. In addition, the patient suffers from hypertension and diabetes mellitus. His last cardiac workup included an echocardiogram that shows normal LV function. Social history and review of systems are not reliable. PHYSICAL EXAMINATION: VITAL SIGNS: Stable. The heart rate is in the 90s, atrial fibrillation. NECK: Negative JVD. LUNGS: Decreased breath sounds. HEART: S1, S2 with a 2/6 systolic ejection murmur. EXTREMITIES: Without edema. LABORATORY DATA: Hemoglobin is 9.8. LFTs are markedly elevated. Potassium is 4.3. IMPRESSION: 1. Weakness with failure to thrive. 2. End-stage renal disease. 3. Coronary artery disease. 4. Atrial fibrillation. 5. Markedly elevated liver function tests. 6. Diabetes mellitus. PLAN: Given these findings, it appears that cardiac status is stable at this time. His troponins, which are elevated, are likely due to his chronic renal disease. We will continue workup for his elevated LFTs. Jamin Dewey MD
--- NOTE | 2018-03-11 14:40 | CARD ---
APPROVED REPORT Date of service: 03/11/2018 EKG Measurement Heart [id number] <Conclusion> Sinus rhythm with 1st degree AV block Right bundle branch block Left anterior fascicular block Bifascicular block T wave abnormality, consider lateral ischemia Abnormal ECG
--- NOTE | 2018-03-11 14:45 | CARD ---
APPROVED REPORT Date of service: 03/11/2018 EKG Measurement Heart [id number] <Conclusion> Sinus rhythm with 1st degree AV block Right bundle branch block Left anterior fascicular block Bifascicular block Abnormal ECG
--- NOTE | 2018-03-11 15:26 | US ---
HISTORY: transaminitis COMPARISON: Abdominal ultrasound performed 01/17/18 TECHNIQUE: Sonographic evaluation of the abdomen. FINDINGS: Examination limited by bowel gas. LIVER: Measures 16.8 cm in sagittal dimension. Echogenic liver may be seen in setting of hepatic parenchymal disease or fatty infiltration. No focal hepatic mass identified. The main portal vein appears patent with normal directional flow. No intrahepatic bile duct dilatation. GALLBLADDER: No gallstones. No gallbladder wall thickening. Negative sonographic Chapman's sign as assessed by the adult basic education teacher. COMMON BILE DUCT: Measures 7 mm. PANCREAS: Not well visualized. RIGHT KIDNEY: Measures 8.3 x 3.4 x 4.1cm. 1.9 x 1.9 x 1.7 cm upper pole and 2.2 x 1.1 x 2.1 cm midpole renal cyst. No hydronephrosis or obstructing calculus identified. LEFT KIDNEY: Measures 9.4 x 4.7 x 4.1cm. 1.6 x 1.8 x 1.6 cm and 2.4 x 1.9 x 2.3 cm upper pole renal cyst. No obstructing calculus or hydronephrosis identified. SPLEEN: Measures approximately 6.2 cm. AORTA: Limited views appear unremarkable. IVC: Limited views appear unremarkable. OTHER FINDINGS: None. IMPRESSION: Limited study. Bilateral renal cysts. Echogenic liver may be seen in setting of hepatic parenchymal disease or fatty infiltration.
--- NOTE | 2018-03-11 19:21 | CP.PCM.CON ---
History of Present Illness - History of Present Illness History of Present Illness: 87 year old male with PMH of healthcare associated pneumonia, ESRD on HD, coronary artery disease, Cerebrovascular accident, Gastric cancer, Mitral valve prolapse, DM, dementia came in to [facility] because of lethargy especially after missing 2 dialysis sessions. Currently the patient is awake, comfortable but still feels weak. He is not in distress, no cough, no diarrhea, but full ROS is difficult to obtain because of the patient's dementia. Infectious Diseases consult is requested because the patient came in to leukocytosis. Review of Systems - Review of Systems All systems: reviewed and no additional remarkable complaints except (as per HPI) Past Patient History - Infectious Disease Hx of Infectious Diseases: None - Tetanus Immunizations Tetanus Immunization: Unknown - Past Medical History & Family History Past Medical History?: Yes - Past Social History Smoking Status: Unknown If Ever Smoked - CARDIAC Hx Cardiac Disorders: Yes Hx Hypercholesterolemia: Yes Hx Hypertension: Yes - PULMONARY Hx Respiratory Disorders: Yes (H/O OF SMOKING CIGARETTES.QUIT) - NEUROLOGICAL Hx Dementia: Yes - HEENT Hx Cataracts: Yes Hx Epistaxis: Yes Hx Glaucoma: Yes - RENAL Hx Dialysis: Yes - ENDOCRINE/METABOLIC Hx Diabetes Mellitus Type 2: Yes - HEMATOLOGICAL/ONCOLOGICAL Hx Blood Disorders: Yes (LOWER GI BLEED) - INTEGUMENTARY Hx Dermatological Problems: No - MUSCULOSKELETAL/RHEUMATOLOGICAL Hx Falls: Yes - GASTROINTESTINAL Hx Gastrointestinal Disorders: Yes - GENITOURINARY/GYNECOLOGICAL Hx Prostate Problems: Yes - PSYCHIATRIC Hx Psychophysiologic Disorder: No Hx Substance Use: No Other/Comment: dimentia - SURGICAL HISTORY Hx Cardiac Catheterization: Yes Hx Cholecystectomy: Yes Hx Coronary Stent: Yes - ANESTHESIA Hx Anesthesia: Yes Hx Anesthesia Reactions: No Hx Malignant Hyperthermia: No Meds Allergies/Adverse Reactions: Allergies Allergy/AdvReac Type Severity Reaction Status Date / Time No Known Allergies Allergy Verified 04/30/17 18:39 - Medications Medications: Current Medications Acetaminophen (Tylenol 325mg Tab) 650 mg PO Q6 PRN PRN Reason: TEMP>=99.5F Acetaminophen (Tylenol 650 Mg Supp) 650 mg RC Q6H PRN PRN Reason: TEMP>=99.5F Aspirin (Ecotrin) 81 mg PO DAILY [facility]AVIER Atorvastatin Calcium (Lipitor) 40 mg PO DIN [facility] Last Admin: 03/10/18 21:44 Dose: 40 mg Dextrose (Dextrose 50% Inj) 0 ml IV STAT PRN; Protocol PRN Reason: Hypoglycemia Protocol Docusate Sodium (Colace) 100 mg PO TID [facility] Donepezil HCl (Aricept) 5 mg PO HS [facility] Last Admin: 03/10/18 21:42 Dose: 5 mg Heparin Sodium (Porcine) (Heparin) 5,000 units SC Q8 FRANCISCO JAVIER; Protocol Last Admin: 03/11/18 05:15 Dose: 5,000 units Dextrose (Dextrose 5% In Water 1000 Ml) 1,000 mls @ 0 mls/hr IV .Q0M PRN; Protocol PRN Reason: Hypoglycemia Protocol Doxycycline Hyclate 100 mg/ (Sodium Chloride) 100 mls @ 100 mls/hr IVPB Q12 FR[facility]ISCO JAVIER; Protocol Last Admin: 03/10/18 21:44 Dose: 100 mls/hr Meropenem/Sodium Chloride (Merrem Iv 500 Mg/Ns 50 Ml) 500 mg in 50 mls @ 100 mls/hr IVPB Q12 [facility]ISCO JAVIER; Protocol Stop: 03/17/18 22:01 Last Admin: 03/11/18 00:40 Dose: 100 mls/hr Insulin Human Lispro (Humalog Med) 0 units SC AC [facility]CO JAVIER; Protocol Levalbuterol HCl (Xopenex) 0.63 mg IH [id number] [facility] Last Admin: 03/10/18 20:50 Dose: Not Given Ondansetron HCl (Zofran Inj) 4 mg IVP Q4H PRN PRN Reason: Nausea/Vomiting Pantoprazole Sodium (Protonix Ec Tab) 40 mg PO 0600 [facility] JAVIER Last Admin: 03/11/18 05:18 Dose: Not Given Physical Exam - Constitutional Appears: Chronically Ill - Head Exam Head Exam: NORMAL INSPECTION - Neck Exam Neck exam: Negative for: Meningismus - Respiratory Exam Respiratory Exam: Decreased Breath Sounds - Cardiovascular Exam Cardiovascular Exam: +S1, +S2 - GI/Abdominal Exam GI & Abdominal Exam: Soft. absent: Tenderness Results - Vital Signs Recent Vital Signs: Last Vital Signs Temp 98.4 F 03/11/18 06:00 Pulse 79 03/11/18 06:00 Resp 18 03/11/18 06:00 BP 108/64 03/11/18 06:00 Pulse Ox 99 03/11/18 06:00 - Labs Result Diagrams: 03/11/18 04:45 03/11/18 03:15 Labs: Laboratory Results - last 24 hr 03/10/18 03/10/18 03/10/18 11:08 11:31 11:31 WBC 17.2 H RBC 3.75 Hgb 11.4 L Hct 35.7 L MCV 95.2 D MCH 30.4 MCHC 31.9 RDW 19.6 H Plt Count 161 MPV Gran % 83.5 H Lymph % (Auto) 7.2 L Daniels % (Auto) 9.2 H Eos % (Auto) 0.0 L Baso % (Auto) 0.1 Gran # 14.34 H Lymph # (Auto) 1.2 Daniels # (Auto) 1.6 H Eos # (Auto) 0.0 Baso # (Auto) 0.01 pCO2 pO2 33 HCO3 ABG pH ABG Total CO2 ABG O2 Saturation ABG Base Excess ABG Potassium VBG pH 7.21 L VBG pCO2 33.0 L VBG HCO3 13.2 L VBG Total CO2 14.2 L VBG O2 Sat (Calc) 52.1 VBG Base Excess -13.6 L VBG Potassium 8.0 H* Sodium 137.0 Chloride 99.0 Glucose 81 Lactate 11.7 H* FiO2 21.0 Potassium Carbon Dioxide Anion Gap BUN Creatinine Est GFR ( Amer) Est GFR (Non-Af Amer) POC Glucose (mg/dL) 64 L Random Glucose Calcium Phosphorus Magnesium Total Bilirubin Direct Bilirubin AST ALT Alkaline Phosphatase Troponin I NT-Pro-B Natriuret Pep Total Protein Albumin Globulin Albumin/Globulin Ratio Triglycerides Cholesterol LDL Cholesterol Direct HDL Cholesterol Arterial Blood Potassium Venous Blood Potassium 8.0 H* 03/10/18 03/10/18 03/10/18 11:35 13:28 13:28 WBC RBC Hgb Hct MCV MCH MCHC RDW Plt Count MPV Gran % Lymph % (Auto) Daniels % (Auto) Eos % (Auto) Baso % (Auto) Gran # Lymph # (Auto) Daniels # (Auto) Eos # (Auto) Baso # (Auto) pCO2 18 L* pO2 119.0 H HCO3 10.9 L ABG pH 7.39 ABG Total CO2 11.5 L ABG O2 Saturation 99.8 H ABG Base Excess -11.5 L ABG Potassium 7.3 H* VBG pH VBG pCO2 VBG HCO3 VBG Total CO2 VBG O2 Sat (Calc) VBG Base Excess VBG Potassium Sodium 137.0 138 Chloride 101.0 102 Glucose 75 Lactate 10.4 H* FiO2 21.0 Potassium 6.3 H* D Carbon Dioxide 13 L Anion Gap 28 H BUN 69 H Creatinine 10.5 H* D Est GFR ( Amer) 6 Est GFR (Non-Af Amer) 5 POC Glucose (mg/dL) Random Glucose 187 H Calcium 8.3 L Phosphorus 7.3 H Magnesium 2.5 H Total Bilirubin 1.4 H Direct Bilirubin AST 2835 H ALT 1803 H Alkaline Phosphatase 93 Troponin I 0.09 D NT-Pro-B Natriuret Pep 653187 H Total Protein 7.8 Albumin 3.7 Globulin 4.0 Albumin/Globulin Ratio 0.9 L Triglycerides Cholesterol LDL Cholesterol Direct HDL Cholesterol Arterial Blood Potassium 7.3 H* Venous Blood Potassium 03/10/18 03/10/18 03/10/18 15:27 17:54 20:33 WBC 13.9 H RBC 3.59 Hgb 10.7 L Hct 33.3 L MCV 92.8 MCH 29.8 MCHC 32.1 RDW 18.7 H Plt Count 108 L MPV 10.8 Gran % 81.7 H Lymph % (Auto) 10.9 L Daniels % (Auto) 7.3 H Eos % (Auto) 0.0 L Baso % (Auto) 0.1 Gran # 11.33 H Lymph # (Auto) 1.5 Daniels # (Auto) 1.0 H Eos # (Auto) 0.0 Baso # (Auto) 0.02 pCO2 pO2 194 H HCO3 ABG pH ABG Total CO2 ABG O2 Saturation ABG Base Excess ABG Potassium VBG pH 7.52 H VBG pCO2 32.0 L VBG HCO3 26.1 VBG Total CO2 27.1 VBG O2 Sat (Calc) 99.8 H VBG Base Excess 3.7 H VBG Potassium 3.4 L Sodium 141.0 Chloride 103.0 Glucose 99 Lactate 3.7 H FiO2 21.0 Potassium Carbon Dioxide Anion Gap BUN Creatinine Est GFR ( Amer) Est GFR (Non-Af Amer) POC Glucose (mg/dL) 86 Random Glucose Calcium Phosphorus Magnesium Total Bilirubin Direct Bilirubin AST ALT Alkaline Phosphatase Troponin I NT-Pro-B Natriuret Pep Total Protein Albumin Globulin Albumin/Globulin Ratio Triglycerides Cholesterol LDL Cholesterol Direct HDL Cholesterol Arterial Blood Potassium Venous Blood Potassium 3.4 L 03/10/18 03/10/18 03/11/18 20:33 23:15 03:15 WBC RBC Hgb Hct MCV MCH MCHC RDW Plt Count MPV Gran % Lymph % (Auto) Daniels % (Auto) Eos % (Auto) Baso % (Auto) Gran # Lymph # (Auto) Daniels # (Auto) Eos # (Auto) Baso # (Auto) pCO2 pO2 HCO3 ABG pH ABG Total CO2 ABG O2 Saturation ABG Base Excess ABG Potassium VBG pH VBG pCO2 VBG HCO3 VBG Total CO2 VBG O2 Sat (Calc) VBG Base Excess VBG Potassium Sodium 138 137 Chloride 99 102 Glucose Lactate FiO2 Potassium 4.5 4.3 Carbon Dioxide 27 28 Anion Gap 16 12 BUN 30 H 37 H Creatinine 5.1 H 5.4 H Est GFR ( Amer) 13 12 Est GFR (Non-Af Amer) 11 10 POC Glucose (mg/dL) Random Glucose 95 71 Calcium 8.4 7.9 L Phosphorus 3.9 Magnesium 2.1 Total Bilirubin 1.7 H 1.7 H Direct Bilirubin 1.4 H AST 2031 H 1197 H ALT 1663 H 1228 H Alkaline Phosphatase 103 86 Troponin I 0.13 H* D 0.15 H* 0.14 H* NT-Pro-B Natriuret Pep Total Protein 7.4 6.4 Albumin 3.4 2.8 L Globulin 4.0 3.6 Albumin/Globulin Ratio 0.8 L 0.8 L Triglycerides 110 Cholesterol 151 LDL Cholesterol Direct 54 HDL Cholesterol 34 Arterial Blood Potassium Venous Blood Potassium Assessment & Plan - Assessment and Plan (Free Text) Plan: Assessment SIRS, R/O sepsis source to be determined transaminitis, etiology to be determined S/P SIRS consider due to HCAP, R/O UTI history of sepsis due to HCAP, bilateral lower lobes, on top of bilateral pleural effusion and volume overload dementia history of sepsis from healthcare-associated pneumonia on top of non-ST elevation NC with acute congestive heart failure history of GI bleeding ESRD on HD cornoary artery disease Cerebrovascular accident Gastric cancer Mitral valve prolapse Plan gave a dose of IV Vanco, and started Merrem and Doxycycline pending blood, urine cx, PCT, CXR and will monitor clinically abdominal ultrasound did not reveal etiology of transaminitis; follow up CPK levels and trend
[2018-03-12] MEDS: Levalbuterol 0.63 MG/3 ML Inhal Soln UD IH SCH ×4 (01:20→19:27)
[2018-03-12] MEDS: Pantoprazole 40 mg EC Tab PO SCH (05:28)
[2018-03-12 07:19] LABS: BASO # 0.01 K/mm3 (0.0-2.0); BASO % 0.1 % (0.0-3.0); EOS # 0.1 (0.0-0.7); EOS % 1.2 % (1.5-5.0); GRAN # 5.87 (1.4-6.5); GRAN % 68.6 % (50.0-68.0); HEMOGLOBIN 10.3 g/dL (14.0-18.0); LYMPH # 1.7 (1.2-3.4); LYMPH % 20.2 % (22.0-35.0); MEAN CELL VOLUME 92.6 fl (80.0-105.0); MEAN CORPUSCULAR HEMOGLOBIN 30.4 pg (25.0-35.0); MEAN CORPUSCULAR HGB CONC 32.8 g/dl (31.0-37.0); MEAN PLATELET VOLUME 10.3 fl (7.0-11.0); MONO # 0.9 (0.1-0.6); MONO % 9.9 % (1.0-6.0); RBC 3.39 10^6/uL (3.5-6.1); RED CELL DISTRIBUTION WIDTH 19.2 % (11.5-14.5); WHITE BLOOD COUNT 8.6 10^3/uL (4.5-11.0)
[2018-03-12] MEDS: Insulin Lispro (humaLOG) MEDIUM Coverage SC SCH ×3 (07:30→16:30)
[2018-03-12 07:57] LABS: ALB/GLOB RATIO 0.8 (1.1-1.8); ALBUMIN 2.9 g/dL (3.0-4.8); BILIRUBIN,DIRECT 1.4 mg/dL (0.0-0.4); CALCIUM 7.7 mg/dL (8.4-10.5)
--- NOTE | 2018-03-12 10:39 | PN ---
DATE: 03/12/2018 SUBJECTIVE: The patient is in [facility] in [place] room 263, bed 1. The patient was admitted on this occasion with acute changes with headache and confusion. The patient had recent had recently been at [facility] for rehab. The patient has long chronic medical history. The patient is on chronic renal dialysis. The patient has had coronary artery disease, stenting of the coronary artery. The patient has history of cerebrovascular disease. The patient has also had diabetes mellitus and multiple episodes of confusion. The patient is seen this morning. He is lying in bed, seem to be present, answers all questions. PHYSICAL EXAMINATION: VITAL SIGNS: The patient's pulse is 67, blood pressure 129/79, respirations are 18 and O2 sat is 97% on room air. HEENT: The patient's head is normocephalic, scarcity of hair on the scalp. NECK: Thyroid is not enlarged. Carotid pulses are present. No lymphadenopathy. LUNGS: Trachea is central. Breath sounds vesicular. No adventitious sounds are present. HEART: Normal sinus rhythm. S1 and S2, present. CENTRAL NERVOUS SYSTEM: The patient is conscious, confused somewhat. LABORATORY DATA: The patient's blood work, hemoglobin is 10.3. The patient's white count is normal. Chemistry shows him to have abnormal liver enzymes. The patient's potassium was elevated at the time of admission in the emergency room. The patient had to have dialysis; this might be secondary to the patient never took care of his dialysis 3 days prior to that. The patient's liver enzymes are abnormal as mentioned. The patient had possible infection for which he is getting treatment. MEDICATIONS: At this time, the patient is on Aricept 5 mg daily, dextrose drip and the patient gets insulin coverage for diabetes, Lipitor 40 mg daily. The patient is on meropenem every 12 hours. The patient is on pantoprazole 40 mg daily, duoneb for respiratory treatment and Zofran for nausea and vomiting. The patient's condition seems to be improved. He had dialysis in the emergency room yesterday. We will continue current management and Dr. Nazario will come and see the patient tomorrow medically. Vijay Anton MD [email or web address]
--- NOTE | 2018-03-12 11:51 | CT ---
Date of service: 03/12/2018 PROCEDURE: CT HEAD WITHOUT CONTRAST. HISTORY: diffuse weakness COMPARISON: Noncontrast head CT performed 01/17/18 TECHNIQUE: Axial computed tomography images were obtained through the head/brain without intravenous contrast. Radiation dose: Total exam DLP = 995.46 mGy-cm. This CT exam was performed using one or more of the following dose reduction techniques: Automated exposure control, adjustment of the mA and/or kV according to patient size, and/or use of iterative reconstruction technique. FINDINGS: HEMORRHAGE: No intracranial hemorrhage. BRAIN: Diffuse atrophy with prominence of the ventricles and sulci noted. Intracranial atherosclerosis. No mass effect or edema. Scattered periventricular and subcortical white matter hypodensities, which are nonspecific, but often seen with chronic microvascular ischemic disease. Chronic appearing bilateral basal ganglia lacunar infarcts. Please note that MRI with diffusion imaging is more sensitive in the detection of acute ischemic event. VENTRICLES: No hydrocephalus. CALVARIUM: Unremarkable. PARANASAL SINUSES: Unremarkable as visualized. No significant inflammatory changes. MASTOID AIR CELLS: Unremarkable as visualized. No inflammatory changes. OTHER FINDINGS: None. IMPRESSION: Generalized atrophy. Nonspecific white matter changes. Chronic appearing basal ganglia lacunar type infarcts. Please note that MRI with diffusion imaging is more sensitive in the detection of acute ischemic event.
--- NOTE | 2018-03-12 12:02 | CON ---
DATE OF CONSULTATION: 03/12/2018 REQUESTING PHYSICIAN: Zeyad Nazario MD REASON FOR CONSULTATION: I have been asked to see this 87-year-old male with multiple recent [facility] hospitalizations with a history of end-stage renal disease, on hemodialysis, poorly compliant; coronary artery disease with stents; CVA; diabetes mellitus; hypertension; dementia; BPH; GI bleed, who comes to the hospital with generalized weakness and in the emergency room was found to have elevated potassium of 7.3 with a lactic acid of 10. Chest x-ray showed pulmonary vascular congestion. Routine blood work also showed liver enzymes in the 1000 range. It has been trending downward over the last several days. The patient apparently missed two dialysis sessions. He currently denies any abdominal pain, nausea, or vomiting. PAST MEDICAL HISTORY: As above. Again, he has a history of end-stage renal disease, on hemodialysis; coronary artery disease with stents; dementia; diabetes mellitus; hypertension; BPH; mitral valve prolapse; GI bleed; CVA. PAST SURGICAL HISTORY: Notable for left upper extremity AV fistula. FAMILY HISTORY: Noncontributory. SOCIAL HISTORY: There is no history of cigarette smoking or alcohol use. MEDICATIONS AT HOME: Insulin, thiamine, Renagel, Aricept, and aspirin. REVIEW OF SYSTEMS: A 14-point review of systems is just notable for generalized weakness. PHYSICAL EXAMINATION: GENERAL: Well-developed male lying in bed, in no acute distress. VITAL SIGNS: Temperature of 97.9, blood pressure 129/79, heart rate of 67. HEENT: Reveal sclerae to be white. Conjunctivae pink. NECK: Supple. CHEST: Scattered coarse rales. HEART: Regular rate and rhythm. ABDOMEN: Soft, nontender. EXTREMITIES: Trace pedal edema. LABORATORY DATA: White blood cell count of 8.6, hemoglobin 10.3, platelet count 130,000. Chemistries reveal total bilirubin of 1.6, AST down to 389, ALT down to 771, alkaline phosphatase of 89. On admission to the hospital, his AST was 2835, ALT 1803, BNP of 141,000, BUN 69, creatinine 10.5. Ultrasound of the abdomen shows no gallstones, an echogenic liver consistent with fatty liver or hepatic parenchymal disease, common bile duct is normal. IMPRESSION: This is an 87-year-old male admitted to the hospital with volume overload secondary to missing his two prior hemodialysis sessions with hyperkalemia, elevated BUN and creatinine, and elevated transaminases over 1000 trending downward. I suspect that the elevated liver enzymes are secondary to passive congestion of the liver. His transaminases are trending downward. RECOMMENDATIONS: 1. Follow liver enzymes. 2. Check hepatitis serology. 3. Continue supportive care. Alexi Hitchcock MD
[2018-03-12] MEDS: MEROPENEM 500 MG in NS 500 MG/50 ML BAG IVPB SCH ×2 (12:32→22:12)
--- NOTE | 2018-03-12 18:35 | CARD ---
APPROVED REPORT Date of service: 03/12/2018 EKG Measurement Heart [id number] <Conclusion> Normal sinus rhythm Right bundle branch block Left anterior fascicular block Bifascicular block T wave abnormality, consider lateral ischemia Abnormal ECG
--- NOTE | 2018-03-12 21:05 | PN ---
DATE: 03/12/2018 CARDIOLOGY FOLLOWUP SUBJECTIVE: The patient is without complaints, sitting and eating on his own without issues. PHYSICAL EXAMINATION. VITAL SIGNS: Blood pressure is 130/77, heart rate in the 70s. NECK: Negative JVD. CARDIOPULMONARY: S1, S2. LUNGS: Without rales. EXTREMITIES: Without change. LABORATORY DATA: Hemoglobin is 10.3. Chemistries, BUN and creatinine 60 and 7.2. Elevated LFTs are noted. IMPRESSION: 1. Weakness which is now better. 2. Renal insufficiency. 3. Coronary artery disease. 4. Atrial fibrillation. 5. Diabetes mellitus. PLAN: Given these findings, the patient is much better in terms of his weakness. There is no active cardiac issues at this time. Jamin Dewey MD
--- NOTE | 2018-03-13 01:22 | PN ---
DATE: 03/12/2018 SUBJECTIVE: The patient is seen lying in bed. Awake and alert, comfortable. He is eating dinner. PHYSICAL EXAMINATION: GENERAL: Elderly male, lying in bed. VITAL SIGNS: Blood pressure 127/74, heart rate 76, respiratory rate 18, temperature 97.6. HEENT: Normocephalic, atraumatic. Positive pallor. NECK: Supple. No JVD. LUNGS: Bilateral equal entry. Bilateral equal expansion. CARDIAC: S1 and S2. Regular rate and rhythm. No murmur. No rub. ABDOMEN: Soft, nondistended, nontender. Bowel sounds present. EXTREMITIES: No lower extremity edema. INTAKE AND OUTPUT: 840/925. LABORATORY DATA: WBC 8.6, hemoglobin 10.3, hematocrit 31, platelets 130. Sodium 134, potassium 4.4, chloride 98, CO2 of 26, BUN 60, creatinine 7, glucose 87, calcium 7.7, phosphorus 4.2, magnesium 2.2. Total bili 1.6, direct bili 1.4, AST 389, ALT 771. Blood culture, no growth. CT of the head, no intracranial hemorrhage. CURRENT MEDICATIONS: List reviewed. ASSESSMENT: 1. Severe hyperkalemia, resolved. 2. Altered mental status, improved. 3. ? Sepsis. 4. Hypertension. 5. [id number] diabetes mellitus. 6. Coronary artery disease. PLAN: 1. Next dialysis will be tomorrow. 2. Continue empiric antibiotics. 3. Follow up cultures. 4. Continue phosphate binders. Brinda Ibarra MD
[2018-03-13] MEDS: Levalbuterol 0.63 MG/3 ML Inhal Soln UD IH SCH ×4 (01:27→19:31)
[2018-03-13] MEDS: Pantoprazole 40 mg EC Tab PO SCH (05:28)
[2018-03-13 06:38] LABS: BASO # 0.02 K/mm3 (0.0-2.0); BASO % 0.3 % (0.0-3.0); EOS # 0.1 (0.0-0.7); GRAN # 3.84 (1.4-6.5); GRAN % 54.6 % (50.0-68.0); LYMPH # 2.1 (1.2-3.4); LYMPH % 30.1 % (22.0-35.0); MEAN CELL VOLUME 91.6 fl (80.0-105.0); MEAN CORPUSCULAR HEMOGLOBIN 29.9 pg (25.0-35.0); MEAN CORPUSCULAR HGB CONC 32.6 g/dl (31.0-37.0); MEAN PLATELET VOLUME 10.5 fl (7.0-11.0); RBC 3.35 10^6/uL (3.5-6.1); RED CELL DISTRIBUTION WIDTH 19.3 % (11.5-14.5)
[2018-03-13 07:23] LABS: ALB/GLOB RATIO 0.8 (1.1-1.8); ALBUMIN 2.9 g/dL (3.0-4.8); BILIRUBIN,DIRECT 1.2 mg/dL (0.0-0.4); CALCIUM 7.7 mg/dL (8.4-10.5)
[2018-03-13 08:01] LABS: HEPATITIS B SURFACE AG Negative (NEGATIVE)
[2018-03-13 08:07] LABS: HEPATITIS A IGM NEGATIVE (NEGATIVE); HEPATITIS B CORE AB NEGATIVE (NEGATIVE)
[2018-03-13 08:18] LABS: HEPATITIS C ANTIBODY NEGATIVE (NEGATIVE)
--- NOTE | 2018-03-13 08:39 | CON ---
DATE: 03/11/2018 HISTORY OF PRESENT ILLNESS: The patient is an 87-year-old male who presents with weakness. The patient suffers from end-stage renal disease and has refused dialysis at home. His appetite has decreased. He was discharged from the rehab center with progressive failure to thrive. Currently, the patient denies chest pain, denies shortness of breath. PAST MEDICAL HISTORY: Includes CAD, end-stage renal disease, diabetes mellitus. SOCIAL HISTORY: Unavailable. REVIEW OF SYSTEMS: Unavailable. PHYSICAL EXAMINATION: VITAL SIGNS: Blood pressure 108/64, the heart rate in the 70s. NECK: Negative JVD. LUNGS: Decreased breath sounds bilaterally. HEART: Reveals a 2/6 systolic ejection murmur. EXTREMITIES: Without edema. LABORATORY DATA: EKG shows atrial fibrillation with nonspecific ST-T changes. The liver function tests are markedly elevated. BUN and creatinine are 37 and 5.4. Hemoglobin is 9.8. IMPRESSION: 1. Weakness with failure to thrive. 2. End-stage renal disease. 3. Coronary artery disease. 4. Marked anemia. 5. Atrial fibrillation. PLAN: Given these findings, his previous echocardiogram reveals normal LV function. The patient does not seem to be in Jamin Dewey MD
--- NOTE | 2018-03-13 09:30 | RAD ---
Date of service: 03/13/2018 HISTORY: vascular congestion COMPARISON: Portable chest 03/10/2018. TECHNIQUE: Chest PA and lateral FINDINGS: LUNGS: Questionable reticular nodular pattern bilaterally and although this is not the usual linear pattern seen with CHF, the latter is not completely excluded. Consider atypical pneumonitis. No alveolar disease bilaterally. PLEURA: No significant pleural effusion identified. No pneumothorax apparent. CARDIOVASCULAR: Calcific atherosclerotic changes are seen related to the thoracic aorta. Cardiomegaly reiterated. Borderline pulmonary vascular congestion. OSSEOUS STRUCTURES: No significant abnormalities. VISUALIZED UPPER ABDOMEN: Normal. OTHER FINDINGS: None. IMPRESSION: Borderline pulmonary vascular congestion. Atypical pneumonitis not excluded. Stable cardiomegaly.
--- NOTE | 2018-03-13 10:33 | NM ---
Date of service: 03/12/2018 PROCEDURE: Nuclear Medicine Hepatobiliary Scan HISTORY: ?CHOLECYSTITIS COMPARISON: None available. TECHNIQUE: 6.01 mCi of technetium 99m Mebrofenin was administered intravenously. Planar images of the abdomen were obtained at 5 min intervals to 60 mins. Delayed images were also obtained. FINDINGS: LIVER: Timely and homogenous uptake. COMMON BILE DUCT: identified at 30-45 mins. GALLBLADDER: identified at 30-45 mins. SMALL BOWEL: Identified at 90 mins. IMPRESSION: No nuclear evidence of cystic or common bile duct obstruction.
--- NOTE | 2018-03-13 12:37 | PN ---
DATE: 03/13/2018 SUBJECTIVE: The patient is lying in bed, comfortable. He denies any abdominal pain. PHYSICAL EXAMINATION: VITAL SIGNS: Reveal a temperature of 97.6, blood pressure 123/71, heart rate 67. HEENT: Reveals sclerae to be white. Conjunctivae pink. NECK: Supple. CHEST: Reveals distant breath sounds. HEART: Exam reveals regular rate and rhythm. ABDOMEN: Soft, nontender. EXTREMITIES: Show no edema. LABORATORY DATA: Reveal a hemoglobin of 10, white blood cell count of 7.0, platelet count of 150,000. Chemistries reveal AST down to 282, ALT down to 647, total bilirubin 1.4, alkaline phosphatase of 93. Hepatitis serology is negative. IMPRESSION: An 87-year-old male with end-stage renal disease, coronary artery disease admitted to the hospital with generalized weakness, hyperkalemia after skipping two hemodialysis sessions with elevated liver enzymes. His elevated liver enzymes are trending downward, I suspect that the elevated liver enzymes are secondary to passive congestion of the liver. RECOMMENDATIONS: To continue supportive care. Alexi Hitchcock MD
--- NOTE | 2018-03-13 13:33 | HP ---
DATE OF EXAM: 03/10/2018 HISTORY OF PRESENT ILLNESS: The patient is an 87-year-old male, which according to the patient's has missed two dialysis this week, was brought into the [facility] emergency room by [facility]. Again according to the patient's , the patient was also confused with worsening confusion in the last 3 days since the patient has missed hemodialysis. The patient was recently discharged from [facility] after completion of approved number of days. The patient was seen and evaluated in stretcher #5 in the emergency room. The patient's is at bedside. The patient was found to be confused, disoriented.. The patient was evaluated by the ER physician, Dr. Goyal. REVIEW OF SYSTEMS: The patient's 14-system review was positive for confusion, missed dialysis, weakness, mild shortness of breath, poor appetite and refusing to take medications, refuse dialysis all the sessions during this week. The patient also has been found to be more confused according to the patient's . The patient was seen and examined in stretcher #5 in the emergency room. The patient was seen lying in the stretcher with the patient's at bedside. PHYSICAL EXAMINATION: GENERAL: The patient is alert, awake, responsive, confused, disoriented. VITAL SIGNS: T max is 98.0 to 98.3. Telemetry shows sinus rhythm to sinus tachycardia, heart rate 86, 87, 95 beats per minute, blood pressure 143/25, 147/87, respirations 19-20, O2 sat is 99-100%. Patient is seen lying. The patient's code status full code. Living will advance directive none. Weight is 136. BMI is 18.5. HOME MEDICATIONS: Aricept 5 mg at bedtime, Colace 100 mg three times a day, Ecotrin 81 mg daily Levemir 5 units at bedtime., Lipitor 40 mg daily, Renagel 800 mg three times a day, Tylenol 650 mg p.o. suppository every six hours p.r.n., thiamine 100 mg daily. SOCIAL HISTORY: Positive for former smoker. Denies alcohol or drug use. FAMILY HISTORY: Not available. The patient's past medical, surgical, psychiatric history as follows: The patient has history of systemic inflammatory response syndrome, high-grade fever, history of advanced dementia, history of delirium, history of insulin-requiring diabetes mellitus, history of cerebral infarct, history of multiple non-ST elevation myocardial infarction, history of angioplasty and stent placement, history of gastrointestinal bleeding, history of aspiration pneumonia, history of behavior disorder, history of severe noncompliance and poor compliance, history of acute exacerbation of dementia and delirium with worsening confusion, history of constipation, history of questionable colitis and enteritis, history of gait dysfunction, history of end-stage renal disease, hemodialysis dependent three times a week via the left upper extremity AV fistula, history of normocytic anemia, history of insulin-requiring diabetes mellitus well controlled, history of coronary artery disease, coronary angioplasty, history of multiple non-ST elevation myocardial infarction, history of [id number] valvular aortic stenosis, history of hypertensive cardiovascular disease, history of right bundle-branch block, bifascicular block, left anterior hemiblock, history of hypertension, hyperlipidemia, history of gastroparesis, history of leukocytosis, history of constipation, history of self-limited colitis and gastroenteritis, history of hyperprocalcitoninemia, history of cervical flap response syndrome, history of hyperphosphatemia secondary hyperparathyroidism, history of metabolic acidosis, history of transaminitis, history of gastroenteritis, history of fecal impaction, fecal retention with colonic distention, history of prostatomegaly, history of cholelithiasis, history of dementia, history of diabetic gastroparesis, history of fecal stasis, history of poor compliance, history of dementia, history of delirium, history of hypertension, history of elevated D-dimer, history of increased anion gap metabolic acidosis, lactic acidosis, history of multiple non-ST elevation myocardial infarction with elevated troponin, history of cholelithiasis, history of multiple bilateral renal cysts, history of questionable cystitis with diffuse urinary bladder wall thickening and possible cystitis, history of prostatomegaly, history of pulmonary hypertension with faidpxpz-hi-oghxeu pulmonary hypertension with right ventricular systolic pressure of 66 mmHg and moderate tricuspid regurgitation, history of concentric left ventricular hypertrophy, history of grade 2 pseudo normal filling dynamics, history of mildly dilated left and right atrium, history of ekfawqev-wn-mhhequ calcified aortic valve, history of mild aortic regurgitation, history of joqwsydj-zk-thwwly valvular aortic stenosis, history of moderately thickened mitral valve, history of mild mitral regurgitation, history of moderate tricuspid regurgitation, history of behavioral disorder with history of noncompliance and refuse to take medications and dialysis, history of dementia with exacerbation, history of bilateral renal cysts, history of dementia, history of bilateral renal cysts, history of fecal impaction, history of cystitis, history of prostatomegaly, history of increased anion gap metabolic acidosis and lactic acidosis, history of advanced dementia, history of diabetic gastroparesis, history of well-controlled diabetes mellitus, history of bifascicular block with right bundle-branch block, left anterior hemiblock, history of inferior wall hypokinesis with grade 2 pseudo normal and filling dynamics, history of pulmonary hypertension, history of xgjscgey-tm-ducqpv valvular aortic stenosis with heektyfs-ro-meaqgs calcified aortic valve and moderately thickened mitral valve, history of pulmonary hypertension, moderate to severe with moderate tricuspid regurgitation and right ventricular systolic pressure of 66 mmHg, history of uppagifc-pw-zgfhmp valvular aortic stenosis, 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, history of deconditioning, history of gait dysfunction, history of advanced dementia, history of gait dysfunction, history of deconditioning, history of former smoker, history of ischemic cerebral infarct, history of severe advanced dementia, history of delirium, history of end-stage renal disease, hemodialysis dependent three times a week, history of multivessel coronary artery disease, history of questionable gastric carcinoma, history of diabetic gastroparesis, history of constipation, history of gastrointestinal bleeding with history of diverticular bleeding, history of gastric erosion, gastritis, hiatal hernia, duodenal nodule, history of pulmonary hypertension, history of bilateral cerebral dysfunction, history of multivessel coronary artery disease, history of angioplasty and stent placement, history of colonic polyp, history of tubular adenoma, history of secondary hyperparathyroidism. As mentioned, the patient was seen in the stretcher #5 in the emergency room. The patient's vital signs as dictated above. PHYSICAL EXAMINATION: HEENT: The patient head examination normocephalic, atraumatic. HEENT examination shows pinkish pale conjunctivae. Anicteric sclerae, dry oral mucosa. GENERAL: The patient is confused, disoriented, but alert, awake, responsive. Questionable soft carotid bruit. CHEST: Kyphosis. LUNGS: Shows positive rhonchi, creps, crackles bilaterally. CARDIOVASCULAR: Shows S1, S2, regular rhythm. Positive systolic murmur left sternal border, right second intercostal space, left second intercostal space. ABDOMEN: Soft. Positive bowel sounds. No palpable hepatosplenomegaly. GENITALIA: Male. RECTAL: Deferred. EXTREMITIES: Lower extremity shows no pitting edema, no calf numbness, no Consuelo's signs. Upper extremity shows positive left upper extremity AV fistula, positive thrill. MUSCULOSKELETAL: Shows a body mass index of 18.5. NEUROLOGIC: Cranial nerves II-XII limited. Gait examination is not tested. Neuro examination is limited. DIAGNOSTICS: 03/10/2018, WBC count is 17.2, hemoglobin/hematocrit is 11.4, 35.7, platelets 161, granulocytes 83.5. Initial VBG shows a potassium of 8.0, non-hemolyzed, pH of 7.21, pCO2 of 33, bicarb 13, pH of 7.21 and lactate of 11.7. Repeat VBG was done and a lactate was 10.4 and ABG was done which shows pH of 7.39, pCO2 18, pO2 119, bicarb 11, saturation of 99.8. The patient sodium was 138, potassium was 6.3 which was non hemolyzed. Chloride 102, CO2 13, anion gap 28, BUN 69, creatinine 10.8, GFR 6, glucose 187, calcium 8.3, magnesium 2.5, total bili 1.4, AST 2835, ALT 1803, troponin 0.09, BNP 141,000. Arterial potassium 7.3. Venous blood potassium 8.0.. The patient had blood cultures drawn. Chest x-ray was done in the emergency room which shows pulmonary vascular congestion, cardiomegaly. DIAGNOSTIC DATA: EKG was done in the emergency room which shows questionable idioventricular rhythm versus atrial fibrillation with intraventricular conduction delay and right bundle-branch block. The patient had 2 EKGs done. The repeat EKG later shows sinus rhythm with first-degree AV block, right bundle branch block, left anterior hemiblock, bifascicular block with lateral ischemic changes. The patient was treated in the emergency room by Dr. Goyal for acute hyperkalemia including high-dose albuterol treatment, calcium gluconate, insulin, D50, Kayexalate was given. Emergent hemodialysis and Nephrology consultation was performed. The patient at present is awaiting emergent hemodialysis for symptomatic hyperkalemia with EKG changes. IMPRESSION AND PLAN: 1. Acute volume load and acute congestive heart failure and pulmonary vascular congestion secondary to missed hemodialysis. 2. Acute non hemolyzed hyperkalemia with EKG changes secondary to missed hemodialysis. 3. Generalized weakness and malaise. 4. Congestive heart failure and volume overload and fluid overload. 5. Severe noncompliance and poor compliance. 6. Hypertension. 7. Leukocytosis with granulocytosis. 8. Possible systemic inflammatory response syndrome. 9 Normocytic anemia. 10. Increased anion gap metabolic acidosis, lactic acidosis. 11. Acute non hemolyzed hyperkalemia with EKG changes. 12. Increased anion gap metabolic acidosis. 13. End-stage renal disease, hemodialysis dependent 3 times a week. 14. Hyperphosphatemia and hypocalcemia. 15. Secondary hyperparathyroidism. 16. Severe transaminitis, etiology undetermined. 17. Volume overload, fluid overload and possible right-sided diastolic congestive heart failure with elevated ProBNP. 18. Non-hemolyzed hyperkalemia. 19. Pulmonary vascular congestion, cardiomegaly. 20. Aortic arch atherosclerotic calcification. 21. Questionable atrial fibrillation with right bundle-branch block. 22. Intraventricular conduction delay versus idioventricular rhythm. 23. Bifascicular block with right bundle-branch block, left anterior hemiblock. 24. Possible lateral coronary ischemic changes. At this time, the patient was requested ICU evaluation by the ER physician which is pending. The patient's veterans adviser has been contacted. For emergent urgent hemodialysis in the ER, the patient has been treated for acute hyperkalemia with high-dose bronchodilator with albuterol treatment. 25. Advanced dementia with delirium. 26. Poor compliance. 27. Questionable non-ST elevation myocardial infarction with elevated troponin and lateral coronary ischemic changes. PLAN: The patient at this time will be evaluated for ICU admission. The patient has been awaiting urgent emergent hemodialysis for the treatment of acute non hemolyzed hyperkalemia and missed hemodialysis x2 session. The patient has been ordered repeat labs, repeat chemistries, blood cultures has been ordered. CURRENT CONSULTATION: 1. Gastroenterology. 2. Cardiology. 3. Nephrology. 4. Infectious disease. The patient will be ordered broad-spectrum antibiotics. The patient was treated in the emergency room. The patient was ordered high-dose albuterol. The patient was given vancomycin 1 g. The patient was given calcium gluconate 2 ampules, the patient was given D50. The patient was given insulin 10 units IV push. The patient was given Zosyn 3.375 in the emergency room. The patient was stabilized in the emergency room. The patient will be started on sliding scale insulin coverage. The patient will be started on renal dialysis diet. At present, the patient is overall condition guarded to poor prognosis, decompensated medical and neurological status was discussed and explained to the patient's , Katelyn Lay, at length and all questions concerned answered. The patient's was explained about overall guarded to poor prognosis, critical condition which she acknowledged and understand. At present, the patient is awaiting for above therapeutic diagnostic intervention as mentioned and dictated above. Dictated and electronically signed, not read. Zeyad Nazario MD MTDD
--- NOTE | 2018-03-13 13:55 | CP.PCM.PN ---
Subjective - Date & Time of Evaluation Date of Evaluation: 03/12/18 Time of Evaluation: 10:30 - Subjective Subjective: Afebrile, comfortable, no abdominal pain. Objective - Vital Signs/Intake and Output Vital Signs (last 24 hours): Temp Pulse Resp BP Pulse Ox 97.9 F 79 18 129/73 99 03/11/18 12:00 03/11/18 12:00 03/11/18 12:00 03/11/18 12:00 03/11/18 06:00 Intake and Output: 03/11/18 03/12/18 18:59 06:59 Intake Total 480 Output Total 0 Balance 480 - Medications Medications: Current Medications Acetaminophen (Tylenol 325mg Tab) 650 mg PO Q6 PRN PRN Reason: TEMP>=99.5F Acetaminophen (Tylenol 650 Mg Supp) 650 mg RC Q6H PRN PRN Reason: TEMP>=99.5F Aspirin (Ecotrin) 81 mg PO DAILY [facility] Last Admin: 03/11/18 11:05 Dose: 81 mg Atorvastatin Calcium (Lipitor) 40 mg PO DIN [facility] Last Admin: 03/11/18 18:44 Dose: 40 mg Dextrose (Dextrose 50% Inj) 0 ml IV STAT PRN; Protocol PRN Reason: Hypoglycemia Protocol Docusate Sodium (Colace) 100 mg PO TID [facility] Last Admin: 03/11/18 18:44 Dose: 100 mg Donepezil HCl (Aricept) 5 mg PO HS [facility] Last Admin: 03/10/18 21:42 Dose: 5 mg Heparin Sodium (Porcine) (Heparin) 5,000 units SC Q8 [facility]CO JAVIER; Protocol Last Admin: 03/11/18 14:31 Dose: Not Given Dextrose (Dextrose 5% In Water 1000 Ml) 1,000 mls @ 0 mls/hr IV .Q0M PRN; Giovany col PRN Reason: Hypoglycemia Protocol Doxycycline Hyclate 100 mg/ (Sodium Chloride) 100 mls @ 100 mls/hr IVPB Q12 FRANCISCO JAVIER; Protocol Last Admin: 03/11/18 11:05 Dose: 100 mls/hr Meropenem/Sodium Chloride (Merrem Iv 500 Mg/Ns 50 Ml) 500 mg in 50 mls @ 100 mls/hr IVPB Q12 [facility]ISCO JAVIER; Protocol Stop: 03/17/18 22:01 Last Admin: 03/11/18 11:05 Dose: 100 mls/hr Insulin Human Lispro (Humalog Med) 0 units SC AC [facility]; Protocol Last Admin: 03/11/18 16:49 Dose: Not Given Levalbuterol HCl (Xopenex) 0.63 mg IH [id number] [facility] Last Admin: 03/11/18 14:29 Dose: 0.63 mg Ondansetron HCl (Zofran Inj) 4 mg IVP Q4H PRN PRN Reason: Nausea/Vomiting Pantoprazole Sodium (Protonix Ec Tab) 40 mg PO 0600 [facility] Last Admin: 03/11/18 05:18 Dose: Not Given - Labs Labs: 03/11/18 04:45 03/11/18 03:15 - Constitutional Appears: Chronically Ill - Head Exam Head Exam: NORMAL INSPECTION - Respiratory Exam Respiratory Exam: Decreased Breath Sounds - Cardiovascular Exam Cardiovascular Exam: +S1, +S2 - GI/Abdominal Exam GI & Abdominal Exam: Soft. absent: Tenderness Assessment and Plan - Assessment and Plan (Free Text) Plan: Assessment SIRS, with no evidence of sepsis noted transaminitis, R/O due to congestive heart failure S/P SIRS consider due to HCAP, R/O UTI history of sepsis due to HCAP, bilateral lower lobes, on top of bilateral pleural effusion and volume overload dementia history of sepsis from healthcare-associated pneumonia on top of non-ST elevation SC with acute congestive heart failure history of GI bleeding ESRD on HD cornoary artery disease Cerebrovascular accident Gastric cancer Mitral valve prolapse Plan will d/c Merrem and Doxycycline since blood cx are negative, CXR does not show infiltrates and HIDA scan does not show biliary tract disease discussed with Dr. Nazario
--- NOTE | 2018-03-13 14:09 | CP.PCM.PCO ---
Physician Communication Note - Physician Communication Note Physician Communication Note: HD today
--- NOTE | 2018-03-13 14:41 | PN ---
CARDIOLOGY FOLLOWUP DATE: 03/13/2018 SUBJECTIVE: The patient is in no acute distress. PHYSICAL EXAMINATION: VITAL SIGNS: Blood pressure 123/71 and heart rate in the 60s. NECK: Negative JVD. LUNGS: Decreased breath sounds. HEART: S1 and S2. EXTREMITIES: Without change. LABORATORY DATA: Hemoglobin is 10. Potassium is 4.8. IMPRESSION: 1. Acute systolic congestive heart failure. 2. End-stage renal disease. 3. Anemia. 4. Good left ventricular function. 5. Weakness. 6. Atrial fibrillation. Given these findings, the patient dialysis today. We will follow up post dialysis for the patient's CHF symptoms. Jamin Dewey MD
[2018-03-13] MEDS: Insulin Lispro (humaLOG) MEDIUM Coverage SC SCH ×2 (15:12→18:42)
[2018-03-13] MEDS: MEROPENEM 500 MG in NS 500 MG/50 ML BAG IVPB SCH (18:43)
--- NOTE | 2018-03-13 23:19 | PN ---
DATE: 03/13/2018 SUBJECTIVE: The patient is seen lying in bed. He is awake. He is alert. He is eating lunch. He had dialysis earlier. PHYSICAL EXAMINATION: GENERAL: Elderly male lying in bed. VITAL SIGNS: Blood pressure 128/84, heart rate respiratory rate 24, temperature 98.9. HEENT: Normocephalic, atraumatic, positive pallor. NECK: Supple. No JVD. CARDIOPULMONARY: S1 and S2. Regular rate and rhythm. No murmur. No rub. LUNGS: Bilateral equal entry, bilateral equal expansion. ABDOMEN: Soft, nondistended, nontender, bowel sounds present. EXTREMITIES: No edema. LABORATORY DATA: WBC 7, hemoglobin 10, hematocrit 30.7, platelets 136. Sodium 134, potassium 4.8, chloride 98, CO2 26, BUN 69, creatinine 8.4, glucose 104, calcium 7.7, total bili 1.4, direct bili 1.2. AST 282, ALT 647, phosphorus 5.1 magnesium 2.3, procalcitonin 3.3. Blood cultures, no growth. MEDICATIONS: Aricept, Colace, Ecotrin, Lipitor, Protonix, Renagel, Tylenol, Xopenex, Zofran. Antibiotics discontinued ?. ASSESSMENT: 1. Hyperkalemia, resolved. 2. Altered mental status, much improved. 3. ? sepsis. 4. Lsc-cxufxse-veqjipwtz diabetes mellitus. 5. Hypertension. 6. Coronary artery disease. 7. Anemia of chronic kidney disease. PLAN: 1. Stable dialysis. 2. ? discontinue empiric antibiotics. 3. Continue renal diet. 4. ? discharge planning. Brinda Ibarra MD
--- NOTE | 2018-03-14 00:25 | DS ---
HISTORY OF PRESENT ILLNESS: The patient is seen lying in the bed in room 263, bed 1. The patient overnight nurse's notes were reviewed. The patient was uncooperative with medication. The patient has been refusing most of the medications. The patient has been found to be confused, disoriented, refusing all medications despite education. The patient set up well. The patient was found to be confused, disoriented. PHYSICAL EXAMINATION: VITAL SIGNS: T-max of 97.6. Telemetry shows sinus rhythm, heart rate in 70s, 75, 80, 67, blood pressure 123/71, 128/68, 130/77, respiration 19, O2 sat 97%. Patient is seen lying in the bed. HEENT: Head is normocephalic, atraumatic. HEENT examination shows pinkish pale conjunctivae. Anicteric sclerae. No oropharyngeal lesion. NECK: No neck rigidity. CHEST: Kyphosis. LUNGS: Shows positive rhonchi and fine creps. CARDIOVASCULAR: S1, S2, regular rhythm. Positive systolic murmur at the left sternal border, right second intercostal space, left second intercostal space. ABDOMEN: Soft. Positive bowel sound. GENITALIA: Male. RECTAL: Deferred. EXTREMITIES: Shows no pitting edema, no calf tenderness, no Homans' sign of the lower extremity. Positive left upper extremity AV fistula, positive thrill. MUSCULOSKELETAL: Shows a body mass index of 18.5. NEUROLOGIC: The patient is alert, awake, oriented x0 to 1, confused, disoriented. Follows command. Moves upper and lower extremity without assistance. Gait examination is not tested. DIAGNOSTICS: On 03/13/2018, WBC 7.0, hemoglobin and hematocrit 10 and 30.7, platelet 136. Sodium 134, potassium 4.8, chloride 98, CO2 26, anion gap 16, BUN 69, creatinine 8.4, GFR 7, glucose 104, hemoglobin A1c 6.2 which is in the prediabetic . Lactic acid is 1.3, calcium 7.7, total bili 1.4, direct bili 1.7. AST is down to 282 from 2835. ALT is down to 647 from 1803. Albumin 2.9. Hepatitis A, B, C serologies are negative. Blood cultures are negative. The patient had a chest x-ray done from 03/13/2018 which shows pulmonary vascular congestion, atypical pneumonitis could not be excluded. CT of the head was noted. Abdominal ultrasound and HIDA scan results were reviewed. FINAL IMPRESSION, PLAN, AND DISCHARGE DIAGNOSES: 1. Systemic inflammatory response syndrome. 2. Tachycardia. 3. Leukocytosis with granulocytosis. 4. Normocytic anemia with anemia of chronic disease and chronic kidney disease. 5. Transient thrombocytopenia. 6. Lactic acidosis. 7. End-stage renal disease, hemodialysis dependent. 8. Non-hemolyzed hyperkalemia. 9. Increased anion gap metabolic acidosis and lactic acidosis. 10. History of insulin-requiring diabetes mellitus with hemoglobin A1c of 6.2 and fructosamine of 396. 11. Hyperphosphatemia and secondary hyperparathyroidism. 12. Hyperbilirubinemia. 13. Severe transaminitis. 14. Elevated troponin of 0.15, etiology unclear, questionable demand ischemia versus coronary ischemia versus elevated troponin and end-stage renal disease patient. 15. Mild hypoalbuminemia. 16. End-stage renal disease, hemodialysis dependent three times a week via the left upper extremity AV fistula. 17. Advanced dementia. 18. History of poor compliance and noncompliance. 19. Bifascicular block with right bundle-branch block and left anterior hemiblock and lateral coronary ischemia. 19. Questionable transient atrial fibrillation. 20. Severe transaminitis with negative HIDA scan. 21. Questionable atypical pneumonitis with reticular nodular pattern bilaterally versus pulmonary vascular congestion and cardiomegaly. 22. Diffuse cerebral cortical atrophy of the brain with ventriculomegaly and intracranial atherosclerosis. 23. Chronic microvascular ischemic disease of the brain. 24. Chronic bilateral basal ganglia lacunar infarct. 25. Hepatic echogenicity with questionable hepatic parenchymal disease versus fatty infiltration of the liver. 26. Bilateral renal cyst. 27. Hepatic echogenicity with hepatic parenchymal disease and hepatic fatty infiltration. 28. Status post severe non-hemolyzed hyperkalemia. 29. Possible volume overload and fluid overload with pulmonary vascular congestion secondary to missed hemodialysis. 30. Hepatic passive congestion. 31. History of insulin-requiring diabetes mellitus. 32. History of severe noncompliance and poor compliance with medication. Plan at this time, the patient is currently on telemetry. The patient will be considered for discharge after the patient's IV antibiotics has been discontinued. The patient was seen by physical therapist. Their recommendation by physical therapist was noted and reviewed. At present, the patient is on Aricept 5 mg at bedtime, Colace 100 mg three times a day, hypoglycemia protocol, doxycycline 100 mg IV every 12, Ecotrin 81 mg daily, heparin 5000 subcutaneously every 8, Humalog sliding scale coverage, Lipitor 40 mg daily, meropenem 500 mg IV every 12, Protonix 40 mg daily, Renagel 800 mg three times a day, Tylenol 650 mg p.o. suppository every 6 p.r.n., Xopenex nebulizer 0.63 mg every 6 hours, Zofran 4 mg IV every 4 p.r.n., incentive spirometry, oxygen continuous therapy, out of bed to chair, physical therapy ordered. The patient had been ordered to be discharged to TCU if accepted or the patient may be discharged to subacute rehab if accepted. If the patient is not accepted to TCU or subacute rehab, the patient may be discharged home with [facility] home PT after IV antibiotics discontinued by Infectious Disease. Discharge followup with Dr. Nazario within 1 week. If the patient is discharged home, discharge medications as per updated ambulatory orders plus new prescriptions. The patient's discharge medication. The patient is to be discharged home if the patient's IV antibiotics are discontinued and if the patient is not accepted to TCU and subacute rehab, the patient will be discharged home. If the patient is discharged home, the patient's discharge medications will be as follows, Tylenol 650 mg p.o. suppository every 6 p.r.n., Ecotrin 81 mg daily, Lipitor 40 mg daily, Colace 100 mg three times a day, Aricept 5 mg at bedtime. Levemir 5 units subcutaneously daily, Renagel 800 mg three times a day, thiamine 100 mg daily. During this hospitalization, I have explained to the patient's about the patient's overall guarded to poor prognosis because of the patient's noncompliance with medications, diet, activity, etc., and refusal of medication treatment and dialysis. The patient's overall prognosis is guarded to poor. During this hospitalization, the patient's was updated about overall the patient's guarded to poor prognosis. Time spent in the discharge process 45 minutes. Dictated and electronically signed, not read. Zeyad Nazario MD [facility] # [id number]
[2018-03-14] MEDS: Levalbuterol 0.63 MG/3 ML Inhal Soln UD IH SCH ×4 (01:26→19:35)
[2018-03-14] MEDS: Pantoprazole 40 mg EC Tab PO SCH (05:49)
[2018-03-14 06:22] VITALS: O2SAT 100
[2018-03-14 06:31] LABS: BASO # 0.02 K/mm3 (0.0-2.0); BASO % 0.4 % (0.0-3.0); EOS # 0.1 (0.0-0.7); EOS % 1.4 % (1.5-5.0); GRAN # 2.68 (1.4-6.5); GRAN % 52.5 % (50.0-68.0); HEMOGLOBIN 10.6 g/dL (14.0-18.0); LYMPH # 1.5 (1.2-3.4); LYMPH % 28.4 % (22.0-35.0); MEAN CELL VOLUME 92.5 fl (80.0-105.0); MEAN CORPUSCULAR HEMOGLOBIN 30.5 pg (25.0-35.0); MEAN CORPUSCULAR HGB CONC 32.9 g/dl (31.0-37.0); MEAN PLATELET VOLUME 10.1 fl (7.0-11.0); MONO # 0.9 (0.1-0.6); MONO % 17.3 % (1.0-6.0); PLATELET COUNT 130 10^3/uL (120.0-450.0); RBC 3.48 10^6/uL (3.5-6.1); RED CELL DISTRIBUTION WIDTH 19.4 % (11.5-14.5); WHITE BLOOD COUNT 5.1 10^3/uL (4.5-11.0)
[2018-03-14 06:48] LABS: ALB/GLOB RATIO 0.8 (1.1-1.8); BILIRUBIN,DIRECT 0.9 mg/dL (0.0-0.4); CALCIUM 7.8 mg/dL (8.4-10.5)
[2018-03-14] MEDS: Insulin Lispro (humaLOG) MEDIUM Coverage SC SCH ×3 (08:14→16:21)
[2018-03-14 08:43] LABS: ATYPICAL LYMPHOCYTE 1 % (0.0-0.0); CORRECTED WBC 4.5 K/mm3 (4.5-11.0); EOSINOPHIL 1 % (0.0-3.0); LYMPHOCYTE 12 % (22.0-35.0); MONOCYTE 8 % (1.0-6.0); NEUTROPHIL 78 % (50.0-70.0); NUCLEATED RED BLOOD CELL 14 %
[2018-03-14 08:44] LABS: HYPOCHROMIA 1+; OVALOCYTES SLIGHT; PLATELET ESTIMATE LOW (NORMAL); POIKILOCYTOSIS 1+; SCHISTOCYTES SLIGHT; TARGET CELLS SLIGHT
[2018-03-14 08:53] LABS: LARGE PLATELETS PRESENT; PLATELET COUNT MANUAL 133 K/mm3 (120-450)
--- NOTE | 2018-03-14 10:33 | DS ---
LOCATION: The patient is still in room 263, bed 1. The patient was unable to be discharged yesterday as the patient was declined by Transitional Care Unit and the patient was yet to be accepted by subacute rehab, that's subacute rehab. Disposition still not clear. The patient still awaiting acceptance by subacute rehab if the patient is not accepted to subacute rehab. The patient has been ordered to be discharged home with [facility] home PT. The patient has been noncompliant with medications during this hospitalization as per the nurse's notes. The patient has refused treatment during this hospitalization secondary to his mental status and neurological status, and the patient has been found to be confused. OBJECTIVE: VITAL SIGNS: T-max 98.3, pulse 74, blood pressure 116/76, respirations 18, O2 sat 100%. HEENT: Head: Examination normocephalic, atraumatic. HEENT examination shows pinkish pale conjunctivae, Anicteric sclerae. No oropharyngeal lesion. Questionable soft carotid bruit. CHEST: Kyphosis. LUNGS: Shows occasional rhonchi upper lung chaney anteriorly. No crackles, rales or wheezing. CARDIOVASCULAR: S1, S2, regular rhythm. Positive systolic murmur, left sternal border, right second intercostal space, left second intercostal space. ABDOMEN: Soft. Positive bowel sounds. No palpable hepatosplenomegaly. GENITALIA: Male. RECTAL: Deferred. EXTREMITIES: Shows positive left upper extremity AV fistula, positive thrill. Lower extremity examination shows no pitting edema, no calf tenderness, no Homans' sign. NEUROLOGIC: The patient is alert, awake, oriented x0 to 1. Disoriented to year, date, month. The patient is able to follow simple commands, able to move upper and lower extremities without assistance. Gait examination is not tested. VASCULAR: Limited exam. VITAL SIGNS: T-max 98.3, pulse 74. Telemetry shows normal sinus rhythm, blood pressure 116/76, respiration 18, O2 sat 100%.. FINAL IMPRESSION, PLAN AND DISCHARGE DIAGNOSES: 1. Systemic inflammatory response syndrome. 2. Tachycardia. 3. Possibly congestive heart failure versus volume overload versus fluid overload secondary to missed hemodialysis. 4. Possible and questionable [id number] myocardial infarction with lateral ischemic changes on the EKG with elevated troponin. 5. Severe noncompliance and poor compliance. 6. Severe advanced dementia. 7. Possible behavioral disorder. 8. History of insulin-requiring diabetes mellitus well controlled with hemoglobin A1c of 6.2. 9. Anemia. 10. End-stage renal disease, hemodialysis dependent. 11. Transaminitis versus shock liver versus hepatic congestion. 12. Hyperprocalcitoninemia. 13. Anemia. 14. Status post leukocytosis. 15. End-stage renal disease, hemodialysis dependent 3 times a week via the left upper extremity arteriovenous fistula. 16. History of multiple cerebral infarct. 17. History of multivessel coronary artery disease, history of [id number] myocardial infarction, history of angioplasty and stent placement. 18. Is gait dysfunction. 19. Deconditioning. 20. Anemia. 21. Transaminitis. PLAN: At this time, the patient is seen by Infectious Disease, all IV antibiotics have been discontinued. The patient is awaiting discharge to subacute rehab if accepted. If not accepted, the patient will be considered for discharge home with [facility]. The patient's 03/14 lab work is now available, WBC 5.1, hemoglobin/hematocrit 10.6 and 2.2, platelet 130. Sodium 33, potassium 4.3, chloride 97, CO2 of 29, BUN 32, creatinine 5.0, glucose 118. AST down to 231, ALT 547. Yesterday's procalcitonin was 3.31. DISCHARGE/PLAN: The patient has been declined by TCU. The patient is awaiting acceptance by subacute rehab. If the patient is accepted to subacute rehab, the patient will be discharged to subacute rehab, otherwise if the patient is not accepted to subacute rehab, the patient will be discharged home with the patient's with [facility] home [facility]. Discharge medications is as per the updated ambulatory orders. I had a lengthy discussion with the patient's during this hospitalization, the patient's has warned me that the patient has been severely noncompliant with medication, diet and hemodialysis when he is home. I have advised the patient's to consider long-term placement and half-way placement. The decision about which is still not finalled by the patient's . Discharge plan as above. Discharge followup with Dr. Nazario within 1 week if discharged home, otherwise discharge followup with Dr. Nazario and subacute rehab. Dictated and electronically signed, not read. Zeyad Nazario MD [facility] # [id number]
--- NOTE | 2018-03-14 11:24 | CP.PCM.PCO ---
Physician Communication Note - Physician Communication Note Physician Communication Note: of patient is requesting hospice, [place]amonte consulted today
--- NOTE | 2018-03-14 12:54 | CP.PCM.PN ---
Subjective - Date & Time of Evaluation Date of Evaluation: 03/14/18 Time of Evaluation: 09:55 - Subjective Subjective: Comfortable, afebrile. Objective - Vital Signs/Intake and Output Vital Signs (last 24 hours): Temp Pulse Resp BP Pulse Ox 97.1 F L 77 19 120/79 100 03/14/18 12:00 03/14/18 12:00 03/14/18 12:00 03/14/18 12:00 03/14/18 06:00 Intake and Output: 03/14/18 03/14/18 06:59 18:59 Intake Total 120 Output Total 0 Balance 120 - Medications Medications: Current Medications Acetaminophen (Tylenol 325mg Tab) 650 mg PO Q6 PRN PRN Reason: TEMP>=99.5F Acetaminophen (Tylenol 650 Mg Supp) 650 mg RC Q6H PRN PRN Reason: TEMP>=99.5F Aspirin (Ecotrin) 81 mg PO DAILY [facility] Last Admin: 03/14/18 09:09 Dose: 81 mg Atorvastatin Calcium (Lipitor) 40 mg PO DIN [facility] Last Admin: 03/13/18 18:42 Dose: 40 mg Dextrose (Dextrose 50% Inj) 0 ml IV STAT PRN; Protocol PRN Reason: Hypoglycemia Protocol Docusate Sodium (Colace) 100 mg PO TID [facility] Last Admin: 03/14/18 09:09 Dose: 100 mg Donepezil HCl (Aricept) 5 mg PO HS [facility] Last Admin: 03/13/18 21:52 Dose: 5 mg Heparin Sodium (Porcine) (Heparin) 5,000 units SC Q8 [facility]; Protocol Last Admin: 03/14/18 05:49 Dose: 5,000 units Dextrose (Dextrose 5% In Water 1000 Ml) 1,000 mls @ 0 mls/hr IV .Q0M PRN; Protocol PRN Reason: Hypoglycemia Protocol Insulin Human Lispro (Humalog Med) 0 units SC AC [facility]; Protocol Last Admin: 03/14/18 12:42 Dose: 1 unit Levalbuterol HCl (Xopenex) 0.63 mg IH [id number] [facility] Last Admin: 03/14/18 07:47 Dose: Not Given Ondansetron HCl (Zofran Inj) 4 mg IVP Q4H PRN PRN Reason: Nausea/Vomiting Pantoprazole Sodium (Protonix Ec Tab) 40 mg PO 0600 [facility] Last Admin: 12/18/18 05:49 Dose: 40 mg Sevelamer HCl (Renagel) 800 mg PO TID [facility] Last Admin: 03/14/18 09:09 Dose: 800 mg - Labs Labs: 03/14/18 05:20 03/14/18 05:20 - Constitutional Appears: Chronically Ill - Head Exam Head Exam: NORMAL INSPECTION - Respiratory Exam Respiratory Exam: Decreased Breath Sounds - Cardiovascular Exam Cardiovascular Exam: +S1, +S2 - GI/Abdominal Exam GI & Abdominal Exam: Soft. absent: Tenderness Assessment and Plan - Assessment and Plan (Free Text) Plan: Assessment SIRS, with no evidence of sepsis noted transaminitis, R/O due to congestive heart failure S/P SIRS consider due to HCAP, R/O UTI history of sepsis due to HCAP, bilateral lower lobes, on top of bilateral pleural effusion and volume overload dementia history of sepsis from healthcare-associated pneumonia on top of non-ST elevation [place] with acute congestive heart failure history of GI bleeding ESRD on HD cornoary artery disease Cerebrovascular accident Gastric cancer Mitral valve prolapse Plan since blood cx are negative, CXR does not show infiltrates and HIDA scan does not show biliary tract disease, continue to monitor off antibiotics discussed with Dr. Nazario
[2018-03-14 13:21] LABS: GLYCOMARK(R) 1.2 mcg/mL (7.3-36.6)
--- NOTE | 2018-03-14 14:22 | PN ---
DATE: 03/14/2018 SUBJECTIVE: The patient is in no acute distress. PHYSICAL EXAMINATION: VITAL SIGNS: Blood pressure 120/80, heart rate is in the 70s. NECK: Negative JVD. LUNGS: Without rales. HEART: S1, S2. EXTREMITIES: Without edema. LABORATORY DATA: Hemoglobin is 10.6. Chemistries: BUN and creatinine is 32 and 5. IMPRESSION: 1. Acute systolic congestive heart failure, is now resolved. 2. End-stage renal disease. 3. Good left ventricular function. 4. Atrial fibrillation. 5. Weakness. PLAN: Given these findings, the patient is waiting for transfer to subacute rehab. Jamin Dewey MD
--- NOTE | 2018-03-14 15:25 | PN ---
DATE: 03/14/2018 SUBJECTIVE: The patient is lying in bed comfortably. He denies any abdominal pain, nausea or vomiting. PHYSICAL EXAMINATION: VITAL SIGNS: Reveal temperature of 97.1, blood pressure 120/79 and heart rate of 77. HEENT: Reveal sclerae to be white. Conjunctivae pink. NECK: Supple. CHEST: Lungs are clear. HEART: Reveals regular rate and rhythm. ABDOMEN: Soft, and nontender. EXTREMITIES: Show no edema. LABORATORY DATA: Reveal white blood cell count 5.1, hemoglobin 10.6 and platelet count of 130,000. Chemistries reveal BUN 32 and creatinine 5. AST is down to 231, ALT 547 and alkaline phosphatase of 98. IMPRESSION: 1. Elevated liver enzymes secondary to passive congestion of the liver. 2. Coronary artery disease. 3. End-stage renal failure on hemodialysis. 4. Chronic anemia. RECOMMENDATIONS: Continue supportive care. No GI workup is planned at this time. Alexi Hitchcock MD
--- NOTE | 2018-03-14 19:40 | PN ---
DATE: 03/14/2018 SUBJECTIVE: The patient is currently seen on 2R. He is entirely comfortable lying supine in bed. The patient and I had a short discussion about the need for him to continue dialysis in a compliant manner, he agrees to do this. MEDICATIONS: Medication list reviewed. The patient is on Aricept, Colace, Ecotrin, heparin, sliding scale insulin, Lipitor, Protonix, Renagel, Tylenol p.r.n., Xopenex, and Zofran p.r.n. OBJECTIVE: INTAKE AND OUTPUT. Intake is 1050, output is with hemodialysis. VITAL SIGNS: Blood pressure is 120/79, temperature 97.1, respiratory rate is 19 with a pulse of 77. HEENT: Shows him to be normocephalic and atraumatic. Conjunctivae are pale. Sclerae are nonicteric. NECK: Supple. No neck vein distention. CHEST: Clear to auscultation and percussion. No rales, rhonchi or wheezing. CARDIOVASCULAR: Shows a regular rate and rhythm without murmurs, rubs or gallops. ABDOMEN: Soft. Bowel sounds normal. No rebound, guarding or masses. EXTREMITIES: Positive left upper extremity AV fistula. Positive thrill. Positive bruit. No lower extremity cyanosis, clubbing or edema. LABORATORY DATA AND IMAGING STUDIES: CBC; white blood cell count today 5.1, hemoglobin stable 10.6, and platelet count is 130,000. Chemistry showed normal electrolytes. BUN 32 with a creatinine of 5. Glucose is 118. Calcium is 7.8 with an albumin level of 3, corrects to normal. Phosphorus level was 5.1. Magnesium level was 2.3. Microbiology; blood cultures are negative at 4 days. ASSESSMENT: 1. End-stage renal disease. The patient agrees to compliantly remain on dialysis. When he went to the outpatient unit, he decided he no longer wanted to do dialysis, but this is probably more of a decision at of the fact that he has advanced dementia. 2. Status post hyperkalemia. Potassium levels are now back into range back on dialysis. 3. History of coronary artery disease, arteriosclerotic heart disease, status post percutaneous transluminal coronary angioplasty stent, stable. 4. History of diabetes mellitus. The patient is on small doses of insulin on a regular basis. Sugar control is acceptable. 5. History of hypertension. Blood pressure controlled with dialysis daily. The patient is currently not on any antihypertensive medication. 6. History of anemia secondary to chronic kidney disease, stable. 7. History of secondary hyperparathyroidism. Phosphorus level mildly elevated at 5.1. The patient will continue binder therapy. PLAN: 1. Discussed with staff on 2R. Apparently, there needs to be a decision about placement. The patient did well when he was in [facility]; however when he was discharged home, he decided he no longer wanted opt dialysis. 2. The patient is not a candidate to go to the TCU as per telemetry staff. 3. We will continue to support the patient with three times a week dialysis. 4. Agree with discontinuation of all antibiotics. 5. Continue renal diet. William Erickson MD MTDD
[2018-03-15] MEDS: Levalbuterol 0.63 MG/3 ML Inhal Soln UD IH SCH ×4 (02:12→19:26)
[2018-03-15] MEDS: Pantoprazole 40 mg EC Tab PO SCH (05:54)
[2018-03-15] MEDS: Insulin Lispro (humaLOG) MEDIUM Coverage SC SCH ×3 (08:07→18:37)
--- NOTE | 2018-03-15 10:18 | DS ---
LOCATION: The patient is still in room 263, bed 1. HISTORY OF PRESENT ILLNESS: Overnight nurse's notes were reviewed. The patient was found to be alert, awake, oriented, refusing medications, agitated episodically. No other adverse events documented or reported by the nurses. PHYSICAL EXAMINATION: VITAL SIGNS: T-max is 98.4. Telemetry shows normal sinus rhythm, heart rate 71, blood pressure 134/76, respirations 18, O2 sat 100%. HEENT: Patient's head examination normocephalic, atraumatic. HEENT examination shows pinkish pale conjunctivae. Anicteric sclerae. No oropharyngeal lesion. NECK: No neck rigidity. Soft carotid bruit. CHEST: Kyphosis. LUNGS: Shows questionable rhonchi, anterior upper lung chaney. CARDIOVASCULAR: S1, S2, regular rhythm. Positive systolic murmur left sternal border, right second intercostal space, left second intercostal space. ABDOMEN; Soft. Positive bowel sounds. No palpable hepatosplenomegaly or organomegaly. GENITALIA: Male. RECTAL: Deferred. EXTREMITIES: Shows positive left upper extremity AV fistula, positive thrill. No pitting edema noted of the lower extremity. Lower extremity shows no pitting edema, no calf tenderness, no Homans' sign. MUSCULOSKELETAL: As per the body mass index. NEUROLOGIC: The patient is alert, awake, responsive, oriented to person, disoriented to place, year, date, month. Follows simple command. Gait examination is not tested. Vascular examination of the lower extremities palpable pulses. DIAGNOSTICS None from today. FINAL IMPRESSION, PLAN AND DISCHARGE DIAGNOSES: 1. Systemic inflammatory response syndrome. 2. End-stage renal disease, hemodialysis dependent three times a week via the left upper extremity arteriovenous fistula. 3. Leukocytosis with granulocytosis. 4. Normocytic anemia and anemia of chronic kidney disease. 5. 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 6. Severe noncompliance and severe poor compliance. 7. Questionable non-ST elevation myocardial infarction with elevated troponin. 8. Congestive heart failure, pulmonary vascular congestion secondary to volume and fluid overload secondary to missed hemodialysis. 9. Hypertension. 10. Severe advanced dementia. 11. Normocytic anemia. 12. Transaminitis versus shock liver versus passive hepatic congestion. 13. Hyperprocalcitoninemia. 14. Gait dysfunction. 15. Deconditioning. 16. History of insulin-requiring diabetes mellitus, well controlled. 17. History of multiple cerebral infarct. 18. History of multiple non-ST elevation myocardial infarction, history of multivessel coronary artery disease, history of multiple angioplasty stent placement. 19. History of gastrointestinal bleeding. 20. History of diverticular bleed. 21. Left upper extremity arteriovenous fistula. PLAN: At this time, I have disc I have met with the patient's and discussed with the patient's extensively about the patient's overall guarded to poor prognosis. All the details about the patient's condition, diagnosis, medical condition, neurological condition, all the details about the patient's medical condition, test results, diagnostic recommendation by all physician were discussed and explained to the patient's in layman's language. All questions concerned answered. The patient's is now requesting hospice and most likely home hospice. The patient's will be providing us with the living will advance directive and will be signing DNR/DNI form and after that the patient has been referred to palliative care and home hospice evaluation. At present, the patient will be continued while the patient is in the hospital. The patient will be continued on all the medications. As per the MAR of today, the patient will be continued on hemodialysis as per Nephrology recommendation. The patient's overall prognosis is guarded to poor secondary to advanced age, multiple comorbidities, multiple complicated medical conditions and also refusal to the treatment which has made the patient's condition worse. Plan at this time, the patient will be made a DNR/DNI. The patient's has provided us with a living will advance directive paper. The patient's will sign the consent for DNR/DNI. The patient will be referred to home hospice and once home hospice is setup, the patient will be discharged to home hospice as per the patient's request. Time spent is 45 minutes. Dictated and electronically signed, not read. Zeyad Nazario MD
--- NOTE | 2018-03-15 12:45 | CP.PCM.PN ---
Subjective - Date & Time of Evaluation Date of Evaluation: 03/15/18 Time of Evaluation: 10:00 - Subjective Subjective: Non-toxic, no fevers. Objective - Vital Signs/Intake and Output Vital Signs (last 24 hours): Temp Pulse Resp BP Pulse Ox 97.1 F L 77 19 120/79 100 03/14/18 12:00 03/14/18 12:00 03/14/18 12:00 03/14/18 12:00 03/14/18 06:00 Intake and Output: 03/14/18 03/14/18 06:59 18:59 Intake Total 120 Output Total 0 Balance 120 - Medications Medications: Current Medications Acetaminophen (Tylenol 325mg Tab) 650 mg PO Q6 PRN PRN Reason: TEMP>=99.5F Acetaminophen (Tylenol 650 Mg Supp) 650 mg RC Q6H PRN PRN Reason: TEMP>=99.5F Aspirin (Ecotrin) 81 mg PO DAILY [facility] Last Admin: 03/14/18 09:09 Dose: 81 mg Atorvastatin Calcium (Lipitor) 40 mg PO DIN [facility] Last Admin: 03/13/18 18:42 Dose: 40 mg Dextrose (Dextrose 50% Inj) 0 ml IV STAT PRN; Protocol PRN Reason: Hypoglycemia Protocol Docusate Sodium (Colace) 100 mg PO TID [facility] Last Admin: 03/14/18 09:09 Dose: 100 mg Donepezil HCl (Aricept) 5 mg PO HS [facility] Last Admin: 03/13/18 21:52 Dose: 5 mg Heparin Sodium (Porcine) (Heparin) 5,000 units SC Q8 [facility]; Protocol Last Admin: 03/14/18 05:49 Dose: 5,000 units Dextrose (Dextrose 5% In Water 1000 Ml) 1,000 mls @ 0 mls/hr IV .Q0M PRN; Protocol PRN Reason: Hypoglycemia Protocol Insulin Human Lispro (Humalog Med) 0 units SC AC [facility]; Protocol Last Admin: 03/14/18 12:42 Dose: 1 unit Levalbuterol HCl (Xopenex) 0.63 mg IH [id number] [facility] Last Admin: 03/14/18 07:47 Dose: Not Given Ondansetron HCl (Zofran Inj) 4 mg IVP Q4H PRN PRN Reason: Nausea/Vomiting Pantoprazole Sodium (Protonix Ec Tab) 40 mg PO 0600 [facility] Last Admin: 03/14/18 05:49 Dose: 40 mg Sevelamer HCl (Renagel) 800 mg PO TID [facility] Last Admin: 03/14/18 09:09 Dose: 800 mg - Labs Labs: 03/14/18 05:20 03/14/18 05:20 - Constitutional Appears: Chronically Ill - Head Exam Head Exam: NORMAL INSPECTION - Respiratory Exam Respiratory Exam: Decreased Breath Sounds - Cardiovascular Exam Cardiovascular Exam: +S1, +S2 - GI/Abdominal Exam GI & Abdominal Exam: Soft. absent: Tenderness Assessment and Plan - Assessment and Plan (Free Text) Plan: Assessment SIRS, with no evidence of sepsis noted transaminitis, R/O due to congestive heart failure S/P SIRS consider due to HCAP, R/O UTI history of sepsis due to HCAP, bilateral lower lobes, on top of bilateral pleural effusion and volume overload dementia history of sepsis from healthcare-associated pneumonia on top of non-ST elevation MS with acute congestive heart failure history of GI bleeding ESRD on HD cornoary artery disease Cerebrovascular accident Gastric cancer Mitral valve prolapse Plan since blood cx are negative, CXR does not show infiltrates and HIDA scan does not show biliary tract disease, continue to monitor off antibiotics since he is at risk for infections discussed with Dr. Nazario previously
--- NOTE | 2018-03-15 23:53 | PN ---
DATE: 03/15/2018 SUBJECTIVE: The patient is seen lying in bed. He is awake, he is alert, he is comfortable. He is eating lunch. He does not appear to be in any kind of distress. PHYSICAL EXAMINATION: VITAL SIGNS: Blood pressure 148/88, heart rate 79, respiratory rate 18, temperature 98. HEENT: Normocephalic, atraumatic, positive pallor. NECK: Supple, no JVD. LUNGS: Bilateral equal air entry, bilateral equal expansion. CARDIAC: S1 and S2, regular rate and rhythm. No murmur, no rub. ABDOMEN: Soft, nondistended, nontender, bowel sounds present. EXTREMITIES: No lower extremity edema. INTAKE AND OUTPUT: Not charted. LABORATORY DATA: WBC 5, hemoglobin 10.6, hematocrit 32, platelets 130. Sodium 133, potassium 4.3, chloride 97, CO2 of 29, BUN 32, creatinine 5, glucose 118. ASSESSMENT: 1. Hyperkalemia, resolved. 2. Altered mental status, much improved. 3. ?Sepsis 4. End-stage renal disease. 5. Jir-[id number] diabetes mellitus. 6. Hypertension. 7. History of gastric carcinoma. PLAN: 1. Stable dialysis today. 2. Mild anemia, compensated. 3. Electrolytes within normal limits. 4. Continue antibiotics as per ID recommendations. 5. Discharge planning. Brinda Ibarra MD
[2018-03-16] MEDS: Levalbuterol 0.63 MG/3 ML Inhal Soln UD IH SCH ×3 (01:13→13:59)
[2018-03-16] MEDS: Insulin Lispro (humaLOG) MEDIUM Coverage SC SCH (07:30)
--- NOTE | 2018-03-16 12:20 | CP.PCM.PN ---
Subjective - Date & Time of Evaluation Date of Evaluation: 03/16/18 Time of Evaluation: 09:45 - Subjective Subjective: Not in distress, non-toxic, no fevers. Objective - Vital Signs/Intake and Output Vital Signs (last 24 hours): Temp Pulse Resp BP Pulse Ox 98.1 F 73 19 137/79 100 03/15/18 12:00 03/15/18 12:00 03/15/18 12:00 03/15/18 12:00 03/15/18 06:00 Intake and Output: 03/15/18 03/15/18 06:59 18:59 Intake Total 120 Output Total 0 Balance 120 - Medications Medications: Current Medications Acetaminophen (Tylenol 325mg Tab) 650 mg PO Q6 PRN PRN Reason: TEMP>=99.5F Last Admin: 03/14/18 13:25 Dose: 650 mg Acetaminophen (Tylenol 650 Mg Supp) 650 mg RC Q6H PRN PRN Reason: TEMP>=99.5F Aspirin (Ecotrin) 81 mg PO DAILY [facility] Last Admin: 03/14/18 09:09 Dose: 81 mg Atorvastatin Calcium (Lipitor) 40 mg PO DIN [facility] Last Admin: 03/14/18 17:13 Dose: Not Given Dextrose (Dextrose 50% Inj) 0 ml IV STAT PRN; Protocol PRN Reason: Hypoglycemia Protocol Docusate Sodium (Colace) 100 mg PO TID [facility] Last Admin: 03/14/18 17:12 Dose: Not Given Donepezil HCl (Aricept) 5 mg PO HS [facility] Last Admin: 03/14/18 21:22 Dose: Not Given Heparin Sodium (Porcine) (Heparin) 5,000 units SC Q8 [facility]; Protocol Last Admin: 03/15/18 05:55 Dose: Not Given Dextrose (Dextrose 5% In Water 1000 Ml) 1,000 mls @ 0 mls/hr IV .Q0M PRN; Protocol PRN Reason: Hypoglycemia Protocol Insulin Human Lispro (Humalog Med) 0 units SC AC [facility]; Protocol Last Admin: 03/15/18 08:07 Dose: Not Given Levalbuterol HCl (Xopenex) 0.63 mg IH [id number] [facility] Last Admin: 03/15/18 07:36 Dose: Not Given Ondansetron HCl (Zofran Inj) 4 mg IVP Q4H PRN PRN Reason: Nausea/Vomiting Pantoprazole Sodium (Protonix Ec Tab) 40 mg PO 0600 [facility] Last Admin: 03/15/18 05:54 Dose: Not Given Sevelamer HCl (Renagel) 800 mg PO TID [facility] Last Admin: 03/14/18 17:13 Dose: Not Given - Labs Labs: 03/14/18 05:20 03/14/18 05:20 - Constitutional Appears: Chronically Ill - Head Exam Head Exam: NORMAL INSPECTION - Respiratory Exam Respiratory Exam: Decreased Breath Sounds - Cardiovascular Exam Cardiovascular Exam: +S1, +S2 - GI/Abdominal Exam GI & Abdominal Exam: Soft. absent: Tenderness Assessment and Plan - Assessment and Plan (Free Text) Plan: Assessment SIRS, with no evidence of sepsis noted transaminitis, R/O due to congestive heart failure S/P SIRS consider due to HCAP, R/O UTI history of sepsis due to HCAP, bilateral lower lobes, on top of bilateral pleural effusion and volume overload dementia history of sepsis from healthcare-associated pneumonia on top of non-ST elevation PR with acute congestive heart failure history of GI bleeding ESRD on HD cornoary artery disease Cerebrovascular accident Gastric cancer Mitral valve prolapse Plan since blood cx are negative, CXR does not show infiltrates and HIDA scan does not show biliary tract disease, continue to monitor off antibiotics since he is at risk for nosocomial infections discussed with Dr. Nazario previously
[2018-03-16 13:15] VITALS: BP 138/72; PULSE 97; RESP 19; TEMP 97.2
--- NOTE | 2018-03-16 15:32 | DS ---
HISTORY OF PRESENT ILLNESS: The patient was unable to be discharge yesterday due to some logistic issues. The patient is seen lying in the bed in room 263 bed 1. The patient is alert, awake, responsive. Does not appear to be in any distress. OBJECTIVE: VITAL SIGNS: T-max is 98.7, pulse 74-78, blood pressure 134/80, respiration 20, O2 sat 100%. HEENT: Head is normocephalic and atraumatic. Eyes; shows pinkish pale conjunctivae. Anicteric sclerae. No oropharyngeal lesion. NECK: No neck rigidity. CHEST: Kyphosis. LUNGS: Shows no audible crackle, rales, or wheezing. CARDIOVASCULAR: S1, S2, regular rhythm. Positive systolic murmur left sternal border, right second intercostal space, left second intercostal space. ABDOMEN: Soft. Positive bowel sound. No palpable hepatosplenomegaly. GENITALIA: Male. RECTAL: Deferred. EXTREMITIES: Shows positive left upper extremity AV fistula, positive thrill. MUSCULOSKELETAL: Shows body mass index of 18.1. NEUROLOGIC: The patient is alert, awake, responsive to person, disoriented to place, year, date, month. GAIT: Not tested. VASCULAR: Palpable pulses. DIAGNOSTICS None. Fingerstick blood sugar 137, 122, 71, 102, 89, 153. FINAL IMPRESSION PLAN AND DISCHARGE DIAGNOSES: 1. Systemic inflammatory response syndrome. 2. Advanced dementia. 3. Acute non-hemolyzed hyperkalemia with EKG changes secondary to missed hemodialysis. 4. Generalized weakness and malaise. 5. Volume overload, fluid overload and congestive heart failure. 6. Severe compliance and noncompliance. 7. Hypertension. 8. Leukocytosis with granulocytosis. 9. Lactic acidosis. 10. . 11. Hyper procalcitonin anemia. 12. Secondary hyperparathyroidism with elevated PTH of 496. 13. End-stage renal disease, hemodialysis dependent. 14. Insulin-requiring diabetes mellitus with hemoglobin A1c of 6.2. 15. Deconditioning. 16. Gait dysfunction. 17. Possible acute non-ST elevation myocardial infarction with elevated troponin. 18. Non-hemolyzed hyperkalemia. 19. Pulmonary vascular congestion with radicular nodular pattern bilaterally versus atypical pneumonitis. 20. Cardiomegaly. 21. . 22. Transaminitis with negative HIDA scan. 23. Gallstones. 24. Echogenic liver with hepatic parenchymal disease. 25. Bilateral renal cysts. 26. Right bundle-branch block. 27. . 28. Questionable non-ST elevation infarction with elevated troponin and lateral ischemic changes. Plan at this time, again the patient was referred to home on hemodialysis. The patient's was informed about the above. At present, the patient will be discharged home. The patient's discharge medications; Tylenol 650 mg p.o. suppository every 6 hours p.r.n., Ecotrin 81 mg daily, Lipitor 40 mg daily, Colace 100 mg three times a day, Aricept 5 mg at bedtime, Levemir 5 units subcu daily, Renagel 800 mg three times a day, thiamine 100 mg p.o. daily. The patient at present is to be discharged home with [facility] home [facility]. Discharge followup with Dr. Nazario within 1 week. Discharge medications as per the updated ambulatory orders. The patient's code status is DNR/DNI. Time spent in the discharge process 45 minutes. Dictated and electronically signed, not read. Zeyad Nazario MD
--- NOTE | 2018-03-16 21:09 | PN ---
DATE: 03/16/2018 SUBJECTIVE: The patient is seen sitting in bed. He is awake. He is comfortable. PHYSICAL EXAMINATION: GENERAL: Elderly male, sitting in bed. VITAL SIGNS: Blood pressure 138/72, heart rate 97, respiratory rate 18, temperature 97.2. HEENT: Normocephalic, atraumatic. Positive pallor. NECK: Supple. No JVD. LUNGS: Bilateral equal entry. Bilateral equal expansion. No rales. CARDIAC: S1 and S2. Regular rate and rhythm. No murmur. No rub. ABDOMEN: Distended, soft, nontender. Bowel sounds present. EXTREMITIES: No lower extremity edema. INTAKE AND OUTPUT: Not charted. LABORATORY DATA: WBC 5, hemoglobin 10.6, hematocrit 32, platelets 130. Sodium 133, potassium 4.3, chloride 97, CO2 of 29, BUN 32, creatinine 5, glucose 118. ASSESSMENT AND PLAN: 1. Hyperkalemia, resolved. 2. Status post altered mental status, now to baseline. 3. ? Sepsis, cultures negative, chest x-ray negative. 4. Gvi-wwkuvtj-zrzbsgynb diabetes mellitus. 5. Hypertension. 6. End-stage renal disease. 7. History of coronary artery disease. PLAN: 1. Stable dialysis yesterday. 2. Electrolytes within normal limits. 3. No evidence of sepsis. Discontinue empiric antibiotics. 4. Discharge planning. Brinda Ibarra MD
== END 2018-03-16 16:23 | disposition home health service (06) | DRG 280 ==
LOC: ED 11:02 → ERH 12:57 → 2RNO 17:14
PROVIDERS: ADMIT Internal Medicine; ATTEND Internal Medicine
PROC: 3E0F7GC Introduction of Other Therapeutic Substance into Respiratory Tract, Via Natural or Artificial Opening (ICD-10-PCS; 2018-03-11)
PROC: 5A1D70Z Performance of Urinary Filtration, Intermittent, Less than 6 Hours Per Day (ICD-10-PCS; principal; 2018-03-13)
PROC: 5A1D70Z Performance of Urinary Filtration, Intermittent, Less than 6 Hours Per Day (ICD-10-PCS; 2018-03-15)
DX: I13.2 Hypertensive heart and chronic kidney disease with heart failure and with stage 5 chronic kidney disease, or end stage renal disease (principal); I21.4 Non-ST elevation (NSTEMI) myocardial infarction; N18.6 End stage renal disease; I50.21 Acute systolic (congestive) heart failure; E87.2 Acidosis; F05 Delirium due to known physiological condition; N25.81 Secondary hyperparathyroidism of renal origin; I45.2 Bifascicular block; Z91.15 Patient's noncompliance with renal dialysis; E87.5 Hyperkalemia; N40.0 Benign prostatic hyperplasia without lower urinary tract symptoms; Z99.2 Dependence on renal dialysis; E11.22 Type 2 diabetes mellitus with diabetic chronic kidney disease; I25.10 Atherosclerotic heart disease of native coronary artery without angina pectoris; F03.90 Unspecified dementia, unspecified severity, without behavioral disturbance, psychotic disturbance, mood disturbance, and anxiety; E11.43 Type 2 diabetes mellitus with diabetic autonomic (poly)neuropathy; R62.7 Adult failure to thrive; I48.91 Unspecified atrial fibrillation; D63.1 Anemia in chronic kidney disease; E78.00 Pure hypercholesterolemia, unspecified; E78.5 Hyperlipidemia, unspecified; E83.39 Other disorders of phosphorus metabolism; I08.3 Combined rheumatic disorders of mitral, aortic and tricuspid valves; K76.1 Chronic passive congestion of liver; N28.1 Cyst of kidney, acquired; Z91.14 Patient's other noncompliance with medication regimen; Z86.73 Personal history of transient ischemic attack (TIA), and cerebral infarction without residual deficits; Z85.028 Personal history of other malignant neoplasm of stomach; Z79.4 Long term (current) use of insulin; Z91.19 Patient's noncompliance with other medical treatment and regimen; Z95.5 Presence of coronary angioplasty implant and graft; Z87.891 Personal history of nicotine dependence